=== PATIENT | female | born 1940 | race Caucasian/White ===

== ENCOUNTER 2018-11-19 10:20 | Outpatient (CLI) | payer MEDICARE, SELFPAY ==
[2018-11-19 11:58] LABS: ALT 13 U/L (12-78); AST 10 U/L (15-37); Albumin 3.4 g/dL (3.4-5.0); Alkaline Phosphatase 77 U/L (46-116); Anion Gap 7.1 mmol/L (3-11); BUN 22 mg/dL (7-18); Bilirubin, Total 0.4 mg/dL (0.2-1.0); CO2 28.9 mmol/L (21.0-32.0); CREATININE 1.02 mg/dL (0.55-1.02); Calcium 8.7 mg/dL (8.5-10.1); Chloride 105 mmol/L (98-107); Cholesterol 150 mg/dL (50-200); Estimated GFR 52.28 (mL/min/1.73m2); Glucose 79 mg/dL (70-100); HDL Cholesterol 63 mg/dL (40-60); LDL CHOLESTEROL 74 mg/dL (<100); Potassium 3.9 mmol/L (3.5-5.1); Sodium 141 mmol/L (136-145); Total Protein 6.3 g/dL (6.4-8.2); Triglyceride 50 mg/dL (30-150)
== END 2018-11-19 10:40 ==
PROVIDERS: PCP Nurse Practitioner; Visit Provider Nurse Practitioner
DX: E78.5 Hyperlipidemia, unspecified (principal); I10 Essential (primary) hypertension; I48.0 Paroxysmal atrial fibrillation
CPT/HCPCS: 36415; 80053; 80061; 83721

== ENCOUNTER 2018-12-03 01:50 | Outpatient (RCR) | payer MEDICARE, SELFPAY ==
[2018-12-03] MEDS: Denosumab 60 MG/ML SYR SC (13:22)
== END 2018-12-26 23:59 | disposition home or self-care (01) ==
LOC: INF 01:50
PROVIDERS: PCP Nurse Practitioner; Visit Provider Nurse Practitioner
DX: M81.0 Age-related osteoporosis without current pathological fracture (principal)
CPT/HCPCS: 96372; J0897

== ENCOUNTER 2019-04-29 15:11 | Outpatient (CLI) | payer MEDICARE, SELFPAY ==
--- NOTE | 2019-04-29 09:30 | DI.RAD_ITS ---
SYMPTOM/DIAGNOSIS: COUGH, R05, FATIGUE WHEEZE R06.2 PA AND LATERAL CHEST: Comparison is made with 24 Dec 2017. A large hiatal hernia is again noted. The heart size is within normal limits. The lungs appear clear. There is stable T-12 compression fracture. IMPRESSION: Hiatal hernia. No acute abnormality.
== END 2019-04-29 15:31 ==
PROVIDERS: PCP Nurse Practitioner; Visit Provider Nurse Practitioner
DX: R05 Cough (principal); R06.2 Wheezing; R53.83 Other fatigue; K44.9 Diaphragmatic hernia without obstruction or gangrene
CPT/HCPCS: 71046

== ENCOUNTER 2019-06-04 01:10 | Outpatient (RCR) | payer MEDICARE, SELFPAY ==
[2019-06-04] MEDS: Denosumab 60 MG/ML SYR SC (12:43)
== END 2019-06-28 23:59 | disposition home or self-care (01) ==
LOC: INF 01:10
PROVIDERS: PCP Nurse Practitioner; Visit Provider Nurse Practitioner
DX: M81.0 Age-related osteoporosis without current pathological fracture (principal)
CPT/HCPCS: 96372; J0897

== ENCOUNTER 2019-06-27 09:23 | Outpatient (CLI) | payer MEDICARE, SELFPAY ==
[2019-06-27 10:30] LABS: ALT 17 U/L (14-59); AST 9 U/L (15-37); Albumin 3.6 g/dL (3.4-5.0); Alkaline Phosphatase 69 U/L (46-116); Anion Gap 9.3 mmol/L (3-11); BUN 25 mg/dL (7-18); Bilirubin, Total 0.3 mg/dL (0.2-1.0); CO2 27.7 mmol/L (21.0-32.0); CREATININE 1.08 mg/dL (0.55-1.02); Calcium 8.4 mg/dL (8.5-10.1); Chloride 108 mmol/L (98-107); Estimated GFR 48.81 (mL/min/1.73m2); Glucose 92 mg/dL (70-100); Magnesium 1.7 mg/dL (1.8-2.4); Sodium 145 mmol/L (136-145); Total Protein 6.4 g/dL (6.4-8.2)
== END 2019-06-27 09:43 ==
PROVIDERS: PCP Nurse Practitioner; Visit Provider Nurse Practitioner
DX: E78.5 Hyperlipidemia, unspecified (principal); I10 Essential (primary) hypertension; R25.2 Cramp and spasm
CPT/HCPCS: 36415; 80053; 83735

== ENCOUNTER 2019-12-03 02:32 | Outpatient (RCR) | payer MEDICARE, SELFPAY ==
[2019-12-03] MEDS: Denosumab 60 MG/ML SYR SC (13:02)
== END 2019-12-27 23:59 | disposition home or self-care (01) ==
LOC: INF 02:32
PROVIDERS: PCP Nurse Practitioner; Visit Provider Nurse Practitioner
DX: M81.0 Age-related osteoporosis without current pathological fracture (principal)
CPT/HCPCS: 96372; J0897

== ENCOUNTER 2019-12-19 08:28 | Outpatient (CLI) | payer MEDICARE, SELFPAY ==
[2019-12-19 09:49] LABS: ALT 13 U/L (14-59); AST 10 U/L (15-37); Albumin 3.6 g/dL (3.4-5.0); Alkaline Phosphatase 84 U/L (46-116); Anion Gap 8.3 mmol/L (3-11); BUN 21 mg/dL (7-18); Bilirubin, Total 0.4 mg/dL (0.2-1.0); CO2 30.7 mmol/L (21.0-32.0); CREATININE 0.92 mg/dL (0.55-1.02); Calculated LDL 94 mg/dL (<100); Chloride 105 mmol/L (98-107); Cholesterol 165 mg/dL (<200); Estimated GFR 58.74 (mL/min/1.73m2); Glucose 89 mg/dL (74-106); HDL Cholesterol 62 mg/dL (40-60); Potassium 4.2 mmol/L (3.5-5.1); Sodium 144 mmol/L (136-145); Total Protein 6.4 g/dL (6.4-8.2); Triglyceride 47 mg/dL (<150)
== END 2019-12-19 08:48 ==
PROVIDERS: PCP Nurse Practitioner; Visit Provider Nurse Practitioner
DX: E78.5 Hyperlipidemia, unspecified (principal); I10 Essential (primary) hypertension
CPT/HCPCS: 36415; 80053; 80061

== ENCOUNTER 2020-01-10 04:11 | Emergency (ER) | payer MEDICARE, SELFPAY ==
[2020-01-10 04:13] VITALS: BP 105/85; PULSE 80; RESP 20; TEMP 36.4; O2SAT 95
[2020-01-10] MEDS: Acetaminophen 500 MG TAB 1000 MG PO (04:20)
[2020-01-10] MEDS: Lidocaine 5% Patch 1 PATCH TP (04:20)
--- NOTE | 2020-01-10 04:21 | W.ED.GENAD ---
Discharge Plan Disposition Patient Disposition: HOME Condition: Good Discharge Details Chief Complaint: Nk/Back Pain Clinical Impression: Vertebral compression fracture, Back pain Primary Care Provider: Patricia Garza ED Provider: Niraj Teague Home Meds and New Rx's Prescriptions: New lidocaine [Lidoderm] 1 PATCH patch 1 patch Topical Q24H Qty: 4 RF: 0 No Action albuterol sulfate 90 mcg/actuation aerosol powdr breath activated 2 inh IH Q6H PRN (Reason: shortness of breath or wheezing) Qty: 1 RF: 6 Eliquis 5 mg tablet 5 mg PO BID Qty: 60 RF: 12 Flovent HFA 110 mcg/actuation HFA aerosol inhaler 2 puff IH BID Qty: 12 RF: 6 Robitussin Cough-Chest Conrado DM 5-100 mg/5 mL liquid 10 ml PO Q4H PRN (Reason: cough) Qty: 237 RF: 0 amlodipine 10 mg tablet 10 mg PO DAILY Qty: 90 RF: 3 bupropion HCl 150 mg tablet extended release 24 hr 150 mg PO DAILY Qty: 90 RF: 3 citalopram 20 mg tablet 20 mg PO DAILY Qty: 90 RF: 3 Flovent Diskus 250 mcg/actuation blister with device 1 inh IH BID Qty: 60 RF: 12 Prolia 60 MG/1 ML syringe 60 mg SQ [id number] RF: 0 calcium-vitamin D3-vitamin K 1 EACH tablet,chewable 1 ea PO DAILY RF: 0 Varicella-Zoster [id number] [Shingrix Vial Kit] 50 MCG INJ 50 mcg IM ONCE Qty: 1 RF: 1 metoprolol succinate 50 mg tablet extended release 24 hr 50 mg PO DAILY Qty: 90 RF: 3 acetaminophen 650 mg tablet extended release 650 mg PO Q6H PRN Qty: 60 RF: 0 omeprazole 40 mg capsule,delayed release(DR/EC) 40 mg PO DAILY Qty: 90 RF: 3 fenofibrate nanocrystallized 48 mg tablet 48 mg PO DAILY Qty: 90 RF: 3 Discharge Instructions Instructions: Back Pain (ED) Additional Instructions: At this time I feel that your pain is likely from a vertebral compression fracture as we discussed. Please continue to use Lidoderm patch as directed, you can take 1000 mg of Tylenol every 6 hours. Heating pads can sometimes help as well. If your insurance does not cover the Lidoderm patch, you can get 4% Lidoderm patch [id number]. Please follow-up closely with the social media marketing specialist Dr. Dixon. It is unlikely that we have any significant surgical options that would be available to you at this time, however there may be some chronic pain control methods that are helpful at the spine clinic at [facility]. If you notice any worsening of your symptoms, or any new symptoms such as vomiting, diarrhea, fever, chills, shortness of breath, chest pain, numbness, weakness, or fainting , please return immediately to the emergency department for reevaluation. Please follow up with your primary care provider as soon as possible for reassessment and reevaluation. As always, it was a pleasure participating in your medical care today. Referrals: Alex Dixon MD [ [facility] STAFF PHYSICIAN] - Medical Decision Making This is a pleasant 79-year-old female with a past medical history of severe osteoporosis, atrial fibrillation on Eliquis who presents today for evaluation of back pain. 5 days ago the patient had a mechanical slip fall and hit her back, since then she has had notable pain in her back and not relieved with Tylenol. Exam demonstrates midline tenderness over T8-9 and 10, no bowel or bladder incontinence, no signs of saddle anesthesia or cauda equina syndrome. Because of the patient's history of severe osteoporosis, and blood thinner use I do not feel that simple plain radiographs will be sufficient to evaluate for potential osseous abnormality fracture damage. Will get CT scan of the thoracic and lumbar spine for further assessment and evaluation. We will apply Lidoderm patch and give 1 g of Tylenol. 6:[address] scan results per virtual radiology have returned and demonstrate no evidence of acute fracture but there is evidence of a notable T11 vertebral compression fracture. I suspect that she had a chronic vertebral compression fracture, worsened with a more recent fall. Patient symptoms are improved with the Tylenol and Lidoderm patch. At this time with no signs of cauda equina syndrome, focal neurologic deficit or other abnormality I do feel she can be safely discharged home with close follow-up. Signs symptoms appear clinically consistent with pain secondary to worsening compression fracture. Patient will have referral placed with Dr. Dixon whom she is well acquainted with and requesting to follow-up with. I do not feel that she would be a surgical candidate in the future, however there may be some benefits from chronic management with various pain mediation techniques, or potential referral to the [facility] spine center. Discussed red flags which to return. I have extensively reviewed the treatment plan and discharge instructions with the patient and their family. I have addressed all patient concerns at this time. The patient and family was made aware of what symptoms to monitor for that would warrant a return to the emergency department. Discussed the plan with the patient and family, they demonstrate verbal understanding and agreement with our assessment and plan at this time. FINDINGS: Vertebrae: No acute fracture. Discs/Spinal canal/Neural foramina: No acute findings. Small to moderate osteophytes at multiple levels Soft tissues: Unremarkable. IMPRESSION: No acute findings FINDINGS: Vertebrae: No acute thoracic spine fracture. Large chronic T11 compression deformity again noted Discs/Spinal canal/Neural foramina: No acute abnormality. Small osteophytes at multiple levels Soft tissues: No acute findings. IMPRESSION: 1: No acute thoracic spine fracture. 2: Large chronic T11 compression deformity again noted FINDINGS: Lungs: No consolidation. No masses. Pleural space: Small right pleural effusion Heart: No pericardial effusion. Mediastinum: Large hiatal/paraesophageal hernia. Aorta: No acute findings. Lymph nodes: No enlarged lymph nodes. Bones/joints: No acute fracture. Large T11 compression deformity, likely chronic Soft tissues: No acute findings. IMPRESSION: 1: Small right pleural effusion 2: No acute fracture. Large T11 compression deformity, likely chronic 3: Large hiatal/paraesophageal hernia. FINDINGS: Liver: No acute abnormality. Gallbladder and bile ducts: Surgical clips in the right upper quadrant from cholecystectomy. Pancreas: No ductal dilation. Spleen: No acute abnormality. Adrenals: No mass. Kidneys and ureters: No ureter or obstructing renal stones. No hydronephrosis. Stomach and bowel: No bowel obstruction. Sigmoid diverticulosis without diverticulitis Appendix: No evidence of appendicitis. Intraperitoneal space: No free air. No significant fluid collection. Vasculature: No abdominal aortic aneurysm. Lymph nodes: No enlarged lymph nodes. Bladder: No acute findings. Reproductive: No acute findings. Bones/joints: No acute fracture. Soft tissues: No acute findings. IMPRESSION: No acute findings. Thank you for allowing us to participate in the care of your patient. HPI General Date/Time Provider Initiated Documentation: 01/10/20 04:11. HPI Narrative: 79-year-old female with a past medical history of notable osteoporosis, atrial fibrillation on Eliquis, presents today for evaluation of back and chest pain. Patient states that 4 to 5 days ago she had a mechanical slip fall and fell on her mid back, since then she has had notable pain, pain with breathing, and low back pain. Pain is made worse with movement and palpation, improved by nothing. She has been taking 500 mg of Tylenol throughout the day which is not improved her symptoms. She denies any bowel or bladder incontinence, numbness tingling or weakness. She denies any fever or chills, cough or shortness of breath. She has no other complaints at this time. No other modifying factors. Related Data Home Medications Medication Instructions Recorded Confirmed Prolia 60 mg SQ [id number] 11/16/16 01/10/20 calcium-vitamin D3-vitamin K 1 ea PO DAILY tab.chew 11/16/16 01/10/20 metoprolol succinate 50 mg 50 mg PO DAILY #90 tab 02/26/19 01/10/20 tablet,extended release 24 hr albuterol sulfate 90 mcg/actuation 2 inh IH Q6H PRN #1 each 04/10/19 01/10/20 breath activated powder inhaler apixaban 5 mg tablet 5 mg PO BID #60 tab 04/10/19 01/10/20 fluticasone propionate 110 2 puff IH BID #12 gm 07/09/19 01/10/20 mcg/actuation HFA aerosol inhaler dextromethorphan-guaifenesin 5 10 ml PO Q4H PRN #237 ml 08/13/19 01/10/20 mg-100 mg/5 mL oral liquid amlodipine 10 mg tablet 10 mg PO DAILY #90 tab 08/20/19 01/10/20 bupropion HCl 150 mg 24 hr tablet, 150 mg PO DAILY #90 tab-cap 08/20/19 01/10/20 extended release citalopram 20 mg tablet 20 mg PO DAILY #90 tab-cap 08/20/19 01/10/20 fluticasone propionate 250 1 inh IH BID #60 each 08/20/19 01/10/20 mcg/actuation blister powder for inhalation acetaminophen 650 mg 650 mg PO Q6H PRN #60 tab-cap 10/16/19 01/10/20 tablet,extended release omeprazole 40 mg capsule,delayed 40 mg PO DAILY #90 tab-cap 10/20/19 01/10/20 release fenofibrate nanocrystallized 48 mg 48 mg PO DAILY #90 tab-cap 12/10/19 01/10/20 tablet lidocaine [Lidoderm] 1 patch TOPICAL Q24H #4 patch 01/10/20 Previous Rx's Medication Instructions Recorded metoprolol succinate 50 mg 50 mg PO DAILY #90 tab 02/26/19 tablet,extended release 24 hr albuterol sulfate 90 mcg/actuation 2 inh IH Q6H PRN #1 each 04/10/19 breath activated powder inhaler apixaban 5 mg tablet 5 mg PO BID #60 tab 04/10/19 fluticasone propionate 110 2 puff IH BID #12 gm 07/09/19 mcg/actuation HFA aerosol inhaler dextromethorphan-guaifenesin 5 10 ml PO Q4H PRN #237 ml 08/13/19 mg-100 mg/5 mL oral liquid amlodipine 10 mg tablet 10 mg PO DAILY #90 tab 08/20/19 bupropion HCl 150 mg 24 hr tablet, 150 mg PO DAILY #90 tab-cap 08/20/19 extended release citalopram 20 mg tablet 20 mg PO DAILY #90 tab-cap 08/20/19 fluticasone propionate 250 1 inh IH BID #60 each 08/20/19 mcg/actuation blister powder for inhalation omeprazole 40 mg capsule,delayed 40 mg PO DAILY #90 tab-cap 10/20/19 release fenofibrate nanocrystallized 48 mg 48 mg PO DAILY #90 tab-cap 12/10/19 tablet lidocaine [Lidoderm] 1 patch TOPICAL Q24H #4 patch 01/10/20 Allergies Allergy/AdvReac Type Severity Reaction Status Date / Time Penicillins Allergy Unknown Swelling/Ed Verified 01/10/20 04:18 bobo/Itching Sulfa (Sulfonamide AdvReac Unknown GI symptoms Verified 01/10/20 04:18 Antibiotics) General Stated Complaint: Nk/Back Pain HAILEE: 3 Review of Systems All systems reviewed & are unremarkable except as noted in HPI and below PFSH Medical History (Updated 01/10/20 @ 05:55 by Niraj Teague DO) Closed extra-articular fracture of distal end of right radius (Inactive 01/31/17) Dehydration (Inactive) Episode of recurrent major depressive disorder (Inactive 10/17/16) Gastroenteritis (Inactive) Hiatal hernia (Chronic) Hx of atrial fibrillation, no current medication (Inactive 04/25/16) Pt was seen by a commercial artist and was put on Metoprolol but mdication was stopped due to bradycardia. per Dr. Addison Shore 04/25/2016 Surgical History (Updated 08/14/18 @ 14:33 by [employer] [place]) Cholecystectomy (01/10/18) Extraction of cataract Open Carpal Tunnel release right total knee arthroplkasty (07/11/17) left knee arthroplasty Family History Mother Stroke Father Neoplasm Grandmother , CVA No problems noted. Brother Diabetes Brother Diabetes Brother Diabetes Brother Diabetes Brother Diabetes Brother Diabetes Social History (Updated 11/04/18 @ 13:16 by Lizzette Koch RN) Smoking/Tobacco Use Status: Former Tobacco Use Alcohol Intake: never Drug use: Never Substance use type: does not use Household members: none Number of Children: 4 What type of physical activity do you participate in: none Do you feel safe in your relationship?: Yes Exam Narrative Exam Narrative: 1.Const: Well-nourished, Well-developed, appearing stated age 2.Eyes: PERRL, no conjunctival injection, and symmetrical lids. 3.ENT: Atraumatic external nose and ears. Moist MM. Neck: Symmetric, trachea midline, No thyromegaly. 4.CVS: +S1/S2, No murmurs or gallops. Peripheral pulses 2+ and equal in all extremities. Brisk capillary refill in all extremities. 5.RESP: Unlabored respiratory effort. Clear to auscultation bilaterally. No wheezes rales or rhonchi 6.GI: Soft, Nontender/Nondistended, No hepatosplenomegaly. No guarding or rebound. 7.MSK: Normocephalic/Atraumatic, Extremities w/o deformity or ttp No cyanosis or clubbing, Normal movement of all extremities. No midline tenderness to palpation over the cervical and sacral spine. Mild midline tenderness over T9 and 10 no bruises or deformity. No significant tenderness over the ribs. Normal ROM in flexion, extension, side bend, and rotation. Patient has +5 out of 5 strength in the lower extremities in dorsiflexion and plantarflexion, knee flexion and extension, hip flexion and extension. Normal strength for dorsiflexion and plantar flexion of the great toe bilaterally. There is +2 over 2 dorsalis pedis pulses bilaterally. There is normal sensation to the skin with light touch at the foot, knee, and hip. Normal saddle sensation. Good sensation over the deep sural nerve area bilaterally. Rectal exam deferred. Reflexes are +2 over 4 in the patellar reflex bilaterally. +5 out of 5 strength in the medial, ulnar, radial nerve distribution bilaterally in the hands as well as intact light touch sensation to these dermatomes on the hands 8.Skin: Warm, Dry. No rashes or lesions. 9.Neuro: shield runner II-XII grossly intact. Sensation grossly intact, no focal neurologic deficits. 10.Psych: (AAO) x3. Appropriate mood and affect Course Vital Signs Vital signs: Vital Signs Temperature 36.4 C L 01/10/20 04:13 Pulse 80 01/10/20 04:13 Respiratory Rate 20 01/10/20 04:13 Blood Pressure 105/85 01/10/20 04:13 Pulse Oximetry 95 01/10/20 04:13 Temperature 36.4 C L 01/10/20 04:13 Temperature Source Temporal Artery Scan 01/10/20 04:13 Pulse 80 01/10/20 04:13 Respiratory Rate 20 01/10/20 04:13 Respiratory Effort Non-Labored 01/10/20 04:19 Blood Pressure 105/85 01/10/20 04:13 Blood Pressure Position Sitting 01/10/20 04:13 Pulse Oximetry 95 01/10/20 04:13 Oxygen Delivery Method Room Air 01/10/20 04:13 Oxygen Flow Rate 0 01/10/20 04:13 Pain Level 8 01/10/20 04:19
--- NOTE | 2020-01-10 04:42 | DI.CT_ITS ---
CT CHEST/ABD/PEL WO and CT reconstructions of the thoracic and lumbar spine CLINICAL HISTORY: fall, osteoporosis, anticoag, mid back and chest pain. TECHNIQUE: Imaging Protocol: Axial computed tomography images with coronal and sagittal reformatted images were created and reviewed CONTRAST MATERIAL: Intravenous: Omnipaque 350 Contrast volume:0 mL Oral: No COMPARISON: XR CHEST 2V PA LATERAL from 04/29/2019 CT THORACIC LUMBAR SPINE REC from 01/10/2020 CT THORACIC LUMBAR SPINE REC from 01/10/2020 FINDINGS: Limitations: Lack of IV contrast does limit evaluation of the thoracic, abdominal or pelvic organs. CHEST: Thyroid: Bilateral thyroid nodules. The largest is a 2 cm nodule on the right. Nonemergent thyroid ul trasound may be obtained. Tracheobronchial tree: Patent where visualized. Mediastinum and Rosalba: No dominant adenopathy or fluid collection. There is a large hiatal hernia. Pulmonary parenchyma: No consolidation or dominant measurable mass. No architectural distortion. Pleura: Small right pleural effusion. No pneumothorax. Lymph nodes: Within normal limits. Aorta: Thoracic portion non-dilated. Atherosclerosis. Heart: Nondilated. No pericardial effusion. No coronary artery calcifications. Bones: Degenerative changes in the spine. No acute fracture or subluxation in the thoracic spine. The re is an old T11 compression fracture. ABDOMEN: Liver: Normal density. No measurable mass. Gallbladder and biliary tract: Status post cholecystectomy. No biliary ductal dilatation. Pancreas: Normal density, no abnormal calcifications or inflammatory process. Spleen: Normal. Kidneys: Normal size, contour and axis. No radiodense stones or obstructive uropathy. Stable right re nal cyst. Adrenal glands: No masses seen. Aorta: Abdominal portion non-dilated. Atherosclerosis. Lymph nodes: Within normal limits. PELVIS: Bladder: Symmetric distention, no gross wall thickening. Bowel: No obstruction or bowel wall thickening. Colonic diverticulosis but no evidence of acute diver ticulitis. No evidence of an acute appendicitis. Peritoneal cavity: No ascites, collection or mesenteric inflammatory response. Bones: Degenerative changes are seen in the lumbar spine. No acute fractures or subluxations in the l umbar spine are present. Reproductive organs: Within normal limits. IMPRESSION: 1. No acute abdominal or pelvic process. 2. No acute thoracic or lumbar spine fracture. 3. Small right pleural effusion. 4. Old T11 compression fracture. DATA REPOSITORY: All CT scans at this facility are submitted to the National Radiology Data Registry (NRDR) Dose Index Registry (DIR) with the [employer] ([employer]). RADIATION OPTIMIZATION: All CT scans at this facility use at least one of these dose optimization te chniques: automated exposure control; mA and/or kV adjustment per patient size (includes targeted exa ms where dose is matched to clinical indication); or iterative reconstruction.
--- NOTE | 2020-01-10 04:42 | DI.CT_ITS ---
EXAM: CT CHEST/ABD/PEL WO and CT reconstructions of the thoracic and lumbar spine CLINICAL HISTORY: fall, osteoporosis, anticoag, mid back and chest pain. TECHNIQUE: Imaging Protocol: Axial computed tomography images with coronal and sagittal reformatted images were created and reviewed CONTRAST MATERIAL: Intravenous: Omnipaque 350 Contrast volume:0 mL Oral: No COMPARISON: XR CHEST 2V PA LATERAL from 04/29/2019 CT THORACIC LUMBAR SPINE REC from 01/10/2020 CT THORACIC LUMBAR SPINE REC from 01/10/2020 FINDINGS: Limitations: Lack of IV contrast does limit evaluation of the thoracic, abdominal or pelvic organs. CHEST: Thyroid: Bilateral thyroid nodules. The largest is a 2 cm nodule on the right. Nonemergent thyroid ultrasound may be obtained. Tracheobronchial tree: Patent where visualized. Mediastinum and Rosalba: No dominant adenopathy or fluid collection. There is a large hiatal hernia. Pulmonary parenchyma: No consolidation or dominant measurable mass. No architectural distortion. Pleura: Small right pleural effusion. No pneumothorax. Lymph nodes: Within normal limits. Aorta: Thoracic portion non-dilated. Atherosclerosis. Heart: Nondilated. No pericardial effusion. No coronary artery calcifications. Bones: Degenerative changes in the spine. No acute fracture or subluxation in the thoracic spine. T here is an old T11 compression fracture. ABDOMEN: Liver: Normal density. No measurable mass. Gallbladder and biliary tract: Status post cholecystectomy. No biliary ductal dilatation. Pancreas: Normal density, no abnormal calcifications or inflammatory process. Spleen: Normal. Kidneys: Normal size, contour and axis. No radiodense stones or obstructive uropathy. Stable right re nal cyst. Adrenal glands: No masses seen. Aorta: Abdominal portion non-dilated. Atherosclerosis. Lymph nodes: Within normal limits. PELVIS: Bladder: Symmetric distention, no gross wall thickening. Bowel: No obstruction or bowel wall thickening. Colonic diverticulosis but no evidence of acute diver ticulitis. No evidence of an acute appendicitis. Peritoneal cavity: No ascites, collection or mesenteric inflammatory response. Bones: Degenerative changes are seen in the lumbar spine. No acute fractures or subluxations in the lumbar spine are present. Reproductive organs: Within normal limits. IMPRESSION: 1. No acute abdominal or pelvic process. 2. No acute thoracic or lumbar spine fracture. 3. Small right pleural effusion. 4. Old T11 compression fracture. DATA REPOSITORY: All CT scans at this facility are submitted to the National Radiology Data Registry (NRDR) Dose Index Registry (DIR) with the [employer] (ACR). RADIATION OPTIMIZATION: All CT scans at this facility use at least one of these dose optimization te chniques: automated exposure control; mA and/or kV adjustment per patient size (includes targeted exa ms where dose is matched to clinical indication); or iterative reconstruction.
--- NOTE | 2020-01-10 06:00 | DI.VRAD_ITS ---
PROCEDURE INFORMATION: Exam: CT Chest Without Contrast Exam date and time: 01/10/2020 4:42 AM Age: 79 years old Clinical indication: Injury or trauma; Fall; Initial encounter; Generalized; Blunt trauma (contusions or hematomas); Injury date: 01/10/20; Injury details: Fell from bed, osteoporosis, anticoag, mid back and chest pain TECHNIQUE: Imaging protocol: Computed tomography of the chest without contrast. Reformatted images were created and reviewed. Radiation optimization: All CT scans at this facility use at least one of these dose optimization techniques: automated exposure control; mA and/or kV adjustment per patient size (includes targeted exams where dose is matched to clinical indication); or iterative reconstruction. COMPARISON: CR XR CHEST 2V PA LATERAL 04/29/2019 9:36 AM FINDINGS: Lungs: No consolidation. No masses. Pleural space: Small right pleural effusion Heart: No pericardial effusion. Mediastinum: Large hiatal/paraesophageal hernia. Aorta: No acute findings. Lymph nodes: No enlarged lymph nodes. Bones/joints: No acute fracture. Large T11 compression deformity, likely chronic Soft tissues: No acute findings. IMPRESSION: 1: Small right pleural effusion 2: No acute fracture. Large T11 compression deformity, likely chronic 3: Large hiatal/paraesophageal hernia. PROCEDURE INFORMATION: Exam: CT Abdomen And Pelvis Without Contrast Exam date and time: 01/10/2020 4:42 AM Age: 79 years old Clinical indication: Injury or trauma; Fall; Initial encounter; Generalized; Blunt trauma (contusions or hematomas); Injury date: 01/10/20; Injury details: Fell from bed, osteoporosis, anticoag, mid back and chest pain TECHNIQUE: Imaging protocol: Computed tomography of the abdomen and pelvis without contrast. Reformatted images were created and reviewed. Radiation optimization: All CT scans at this facility use at least one of these dose optimization techniques: automated exposure control; mA and/or kV adjustment per patient size (includes targeted exams where dose is matched to clinical indication); or iterative reconstruction. COMPARISON: CR XR CHEST 2V PA LATERAL 04/29/2019 9:36 AM FINDINGS: Liver: No acute abnormality. Gallbladder and bile ducts: Surgical clips in the right upper quadrant from cholecystectomy. Pancreas: No ductal dilation. Spleen: No acute abnormality. Adrenals: No mass. Kidneys and ureters: No ureter or obstructing renal stones. No hydronephrosis. Stomach and bowel: No bowel obstruction. Sigmoid diverticulosis without diverticulitis Appendix: No evidence of appendicitis. Intraperitoneal space: No free air. No significant fluid collection. Vasculature: No abdominal aortic aneurysm. Lymph nodes: No enlarged lymph nodes. Bladder: No acute findings. Reproductive: No acute findings. Bones/joints: No acute fracture. Soft tissues: No acute findings. IMPRESSION: No acute findings. Dictated and Authenticated by: Noel Mensah MD. Ordering:RACHAEL Healy MD
--- NOTE | 2020-01-10 06:05 | DI.VRAD_ITS ---
PROCEDURE INFORMATION: Exam: CT Thoracic Spine Without Contrast Exam date and time: 01/10/2020 4:42 AM Age: 79 years old Clinical indication: Injury or trauma; Initial encounter; Blunt trauma (contusions or hematomas); Injury date: 01/10/20; Injury details: Fall from bed, mid back and chest pain, osteoporosis, anticoag TECHNIQUE: Imaging protocol: Computed tomography images of the thoracic spine without contrast. Reformatted images were created and reviewed. Radiation optimization: All CT scans at this facility use at least one of these dose optimization techniques: automated exposure control; mA and/or kV adjustment per patient size (includes targeted exams where dose is matched to clinical indication); or iterative reconstruction. COMPARISON: CR THORACIC SPINE 03/16/2017 1:19 PM FINDINGS: Vertebrae: No acute thoracic spine fracture. Large chronic T11 compression deformity again noted Discs/Spinal canal/Neural foramina: No acute abnormality. Small osteophytes at multiple levels Soft tissues: No acute findings. IMPRESSION: 1: No acute thoracic spine fracture. 2: Large chronic T11 compression deformity again noted PROCEDURE INFORMATION: Exam: CT Lumbar Spine Without Contrast Exam date and time: 01/10/2020 4:42 AM Age: 79 years old Clinical indication: Injury or trauma; Initial encounter; Blunt trauma (contusions or hematomas); Injury date: 01/10/20; Injury details: Fall from bed, mid back and chest pain, osteoporosis, anticoag TECHNIQUE: Imaging protocol: Computed tomography images of the lumbar spine without contrast. Reformatted images were created and reviewed. Radiation optimization: All CT scans at this facility use at least one of these dose optimization techniques: automated exposure control; mA and/or kV adjustment per patient size (includes targeted exams where dose is matched to clinical indication); or iterative reconstruction. COMPARISON: CR THORACIC SPINE 03/16/2017 1:19 PM FINDINGS: Vertebrae: No acute fracture. Discs/Spinal canal/Neural foramina: No acute findings. Small to moderate osteophytes at multiple levels Soft tissues: Unremarkable. IMPRESSION: No acute findings. Dictated and Authenticated by: Noel Mensah MD. Ordering:RACHAEL Healy MD
== END 2020-01-10 06:06 | disposition home or self-care (01) ==
PROVIDERS: Emergency Provider Student in an Organized Health Care Education/Training Program; PCP Nurse Practitioner
DX: M48.54XA Collapsed vertebra, not elsewhere classified, thoracic region, initial encounter for fracture (principal); W06.XXXA Fall from bed, initial encounter; Z79.01 Long term (current) use of anticoagulants; I10 Essential (primary) hypertension
CPT/HCPCS: 71250; 99284; 74176

== ENCOUNTER 2020-04-07 01:18 | Outpatient (CLI) | payer MEDICARE, SELFPAY ==
[2020-04-07 09:05] LABS: HCT 41.2 % (36.0-46.0); HGB 13.4 g/dL (12.0-15.5); Mean Corp. HGB Concentration 32.5 g/dL (32.0-36.0); Mean Corpuscular Hemoglobin 29.5 pg (27.0-33.0); Mean Corpuscular Volume 90.5 fL (80-95); Mean Platelet Volume 9.3 fL (8.0-11.0); Platelet Count 391 x1000/uL (130-400); RBC 4.55 m/cumm (4.00-5.20); White Blood Cell Count 7.49 k/cumm (4.4-10.8)
[2020-04-07 09:16] LABS: INR 1.2 (0.9-1.1); PTT Activated 26.5 sec (21.0-31.4); Prothrombin Time 11.7 sec (9.3-11.0)
== END 2020-04-07 01:38 ==
PROVIDERS: PCP Nurse Practitioner; Visit Provider Nurse Practitioner
DX: Z79.01 Long term (current) use of anticoagulants (principal); Z86.73 Personal history of transient ischemic attack (TIA), and cerebral infarction without residual deficits; I48.91 Unspecified atrial fibrillation
CPT/HCPCS: 36415; 85027; 85610; 85730

== ENCOUNTER 2020-05-12 10:12 | Outpatient (CLI) | payer MEDICARE, SELFPAY ==
--- NOTE | 2020-05-12 10:00 | DI.RAD_ITS ---
EXAM: XR KNEE RT 2V AP,LAT CLINICAL HISTORY: right knee pain after exercises TECHNIQUE: COMPARISON: CR LE-KNEE 3V from 04/25/2016 FINDINGS: Two views were obtained and show knee joint replacement in position. The components appear well seat ed. I am uncertain whether there is a patellar arthroplasty component. No other significant bony ab normality seen. IMPRESSION:
== END 2020-05-12 10:32 ==
PROVIDERS: PCP Nurse Practitioner; Referring Provider Nurse Practitioner; Visit Provider Orthopaedic Surgery
DX: M25.561 Pain in right knee (principal); Z47.1 Aftercare following joint replacement surgery; M76.31 Iliotibial band syndrome, right leg; Z96.651 Presence of right artificial knee joint
CPT/HCPCS: 99213; 73560

== ENCOUNTER 2020-05-24 09:36 | Outpatient (CLI) | payer MEDICARE, SELFPAY ==
--- NOTE | 2020-05-24 15:30 | DI.RAD_ITS ---
EXAM: XR RIBS LT W PA LAT CHEST CLINICAL HISTORY: pain s/p fall, pleurodynia, R07.81, W19.XXXA TECHNIQUE: 2D digital imaging was performed. COMPARISON: CR XR CHEST 2V PA LATERAL from 04/29/2019 FINDINGS: A large hiatal hernia is again noted. Lungs show mild fibrotic changes. Is no pneumothorax, infiltr ate or effusion. Marker was placed over the lower left ribs in the area of the patient's pain. Ther e is a stable T12 compression fracture. Degenerative changes are noted in the thoracic spine. There are right upper quadrant surgical clips. No rib fractures are seen. IMPRESSION: Large hiatal hernia. No evidence of rib fracture or pneumothorax.
--- NOTE | 2020-05-24 15:30 | DI.RAD_ITS ---
EXAM: XR SHOULDER LT COMPLETE 2+V CLINICAL HISTORY: pain s/p fall, lt shoulder pain, M25.512, W19.XXXA TECHNIQUE: 2D digital imaging was performed. COMPARISON: No exams were available for comparison FINDINGS: There is severe narrowing of the glenohumeral joint space. There is mild spurring of the glenoid. T here is spurring of the inferior medial humerus and mild spurring at the greater and lesser tuberosit ies. The AC joint is unremarkable. IMPRESSION: Severe degenerative changes of the glenohumeral joint.
== END 2020-05-24 09:56 ==
PROVIDERS: PCP Nurse Practitioner; Visit Provider Nurse Practitioner
DX: M25.512 Pain in left shoulder (principal); M19.012 Primary osteoarthritis, left shoulder; W19.XXXA Unspecified fall, initial encounter
CPT/HCPCS: 71046; 71100; 73030

== ENCOUNTER 2020-05-31 01:37 | Outpatient (RCR) | payer MEDICARE, SELFPAY ==
[2020-05-31] MEDS: Denosumab 60 MG/ML SYR SC (12:42)
== END 2020-06-28 23:59 | disposition home or self-care (01) ==
LOC: INF 01:37
PROVIDERS: PCP Nurse Practitioner; Visit Provider Nurse Practitioner
DX: M81.0 Age-related osteoporosis without current pathological fracture (principal)
CPT/HCPCS: 96372; J0897

== ENCOUNTER → 2020-06-23 09:50 | Outpatient (BNVA) | payer MEDICARE, SELFPAY | PROVIDERS: PCP Nurse Practitioner; Referring Provider Nurse Practitioner; Visit Provider Orthopaedic Surgery | DX: M25.561 Pain in right knee (principal); M76.31 Iliotibial band syndrome, right leg | CPT/HCPCS: 99213 ==

== ENCOUNTER 2020-09-04 05:24 | Observation (INO) | payer MEDICARE, SELFPAY ==
--- NOTE | 2020-09-04 | DI.CT_ITS ---
EXAM: CT CHEST W CLINICAL HISTORY: hiatal hernia; r/o torsion TECHNIQUE: COMPARISON: No exams were available for comparison FINDINGS: CT examination of the chest was performed with bolus infusion of 70 cc of Omnipaque 350. Lungs are g enerally clear. Hiatal hernia is noted as seen on abdominal CT, this contains stomach and portions o f transverse colon. There is no evidence of a gastric volvulus. There is no evidence of obstruction . No mediastinal or hilar adenopathy. There is no evidence of pulmonary embolic disease. No thoracic aortic abnormality. No pleural effus ion. IMPRESSION: Large hiatal hernia containing portions of stomach and transverse colon, no evidence of volvulus. RADIATION DOSE DELIVERED: 358.39mGy.cm Total DLP
[2020-09-04 05:29] VITALS: BP 169/92; PULSE 84; RESP 24; TEMP 36.2; O2SAT 95
--- NOTE | 2020-09-04 05:37 | ED.GENADUL_ITS ---
Discharge Plan Disposition Patient Disposition: [facility] IN[facility]IENT Condition: Stable Discharge Details Chief Complaint: Abd Prob Clinical Impression: Vomiting, Coffee ground emesis Primary Care Provider: Patricia Garza ED Provider: Niraj Tegaue Home Meds and New Rx's Prescriptions: No Action Eliquis 5 mg tablet 5 mg PO BID Qty: 60 RF: 12 albuterol sulfate 90 mcg/actuation aerosol powdr breath activated 2 inh IH Q6H PRN (Reason: shortness of breath or wheezing) Qty: 1 RF: 6 amlodipine 10 mg tablet 10 mg PO DAILY Qty: 90 RF: 3 Flovent Diskus 250 mcg/actuation blister with device 1 inh IH BID Qty: 60 RF: 12 hydrocodone-acetaminophen 5-325 mg tablet 1 tab PO BID MDD 2 tabs PRN (Reason: pain) Qty: 6 RF: 0 levofloxacin 750 mg tablet 750 mg PO DAILY Qty: 7 RF: 0 metronidazole 500 mg tablet 500 mg PO Q8H Qty: 21 RF: 0 Prolia 60 MG/1 ML syringe 60 mg SQ [id number] RF: 0 calcium-vitamin D3-vitamin K 1 EACH tablet,chewable 1 ea PO DAILY RF: 0 Varicella-Zoster Ge/As01b/Pf [Shingrix Vial Kit] 50 MCG INJ 50 mcg IM ONCE Qty: 1 RF: 1 acetaminophen 650 mg tablet extended release 650 mg PO Q6H PRN Qty: 60 RF: 0 omeprazole 40 mg capsule,delayed release(DR/EC) 40 mg PO DAILY Qty: 90 RF: 3 fenofibrate nanocrystallized 48 mg tablet 48 mg PO DAILY Qty: 90 RF: 3 metoprolol succinate 50 mg tablet extended release 24 hr 50 mg PO DAILY Qty: 90 RF: 3 Trelegy Ellipta 100-62.5-25 mcg blister with device 1 inh IH DAILY RF: 0 Breo Ellipta 200-25 mcg/dose blister with device 1 inh IH DAILY RF: 0 Medical Decision Making This is a pleasant 80-year-old female with a past medical history of atrial fibrillation on Eliquis, and diverticulitis who presents today for evaluation of left-sided abdominal pain vomiting and diarrhea. Patient states about 4 to 5 days ago she had 2 days of diarrhea, it was nonbloody, nonmelanotic. She then developed a mild left lower quadrant abdominal pain. She saw her primary care provider who suspected diverticulitis and she was started on levofloxacin and Flagyl. She has been taking this for 2 days now and today has developed vomiting. She has been vomiting multiple times throughout the day, the last few episodes have had coffee-ground chunks and he started her component. She has not been able to keep anything down. She denies any other complaints at this time. No other modifying factors. Physical exam demonstrates mild left lower quadrant abdominal tenderness, notably dry mucous membranes, vital signs demonstrate no evidence of hypotension or significant tachycardia. We will gently rehydrate, get a CT scan first to evaluate for worsening diverticular disease, check hemoglobin levels, give Protonix and famotidine for suspected upper mild GI ulcer versus mild bleed. Of note she has not had a bowel movement in the last 2 days. 7:[address] scan has returned, no significant abnormalities in regards to acute abdominal surgical pathologies, no evidence of diverticulitis. Laboratory work-up has returned and is reassuring. Hemoglobin stable. BUN is 19, creatinine 1.22, on reassessment the patient's nausea is slightly improved but notably still present. Patient does live alone at home. With the patient's upper GI bleed that she had which does seem to be improving, however taking into consideration her age, her living scenario with her being alone, I do feel that 24-hour observation may be reasonable. We will reach out to the hospitalist. admitting to hospitalist. discussed with addy. FINDINGS: Liver: Normal. No mass. Gallbladder and bile ducts: Cholecystectomy. Normal bile ducts. Pancreas: Normal. No ductal dilation. Spleen: Normal. No splenomegaly. Adrenal glands: Normal. No mass. Kidneys and ureters: There are at least 2 fairly well-defined hyperdense nodules on the superior pole of left kidney that measure under 5 mm in diameter. There consistent with tiny benign proteinaceous cysts. There is no hydronephrosis. A stable benign right peripelvic cyst is present. No renal stones are seen. Stomach and bowel: There is a very large hiatal hernia containing the stomach and multiple loops of bowel. This is not significantly changed. There is prominent sigmoid diverticulosis. There is no evidence of acute diverticulitis. There is no bowel obstruction or dilatation. There is a small right inguinal hernia containing a short loop of nondilated bowel. Appendix: No evidence of appendicitis. Intraperitoneal space: Unremarkable. No free air. No significant fluid collection. Vasculature: Unremarkable. No abdominal aortic aneurysm. Lymph nodes: Unremarkable. No enlarged lymph nodes. Urinary bladder: Unremarkable as visualized. Reproductive: Unremarkable as visualized. Bones/joints: Prominent degenerative disease in the spine with sclerosis osteophyte formation. There is old compression fracture of T11. Soft tissues: Unremarkable. IMPRESSION: 1. Stable large prominent hiatal hernia. 2. Small right inguinal hernia. 3. Prominent sigmoid diverticulosis. 4. Prominent degenerative disease in the spine. 5. No acute abnormalities are seen in the abdomen and pelvis. Thank you for allowing us to participate in the care of your patient. Dictated and Authenticated by: Richi Membreno MD 09/04/2020 7:31 AM Eastern Time ([place] & [place]) HPI General Date/Time Provider Initiated Documentation: 09/04/20 05:26 . HPI Narrative: This is a pleasant 80-year-old female with a past medical history of atrial fibrillation on Eliquis, and diverticulitis who presents today for evaluation of left-sided abdominal pain vomiting and diarrhea. Patient states about 4 to 5 days ago she had 2 days of diarrhea, it was nonbloody, nonmelanotic. She then developed a mild left lower quadrant abdominal pain. She saw her primary care provider who suspected diverticulitis and she was started on levofloxacin and Flagyl. She has been taking this for 2 days now and today has developed vomiting. She has been vomiting multiple times throughout the day, the last few episodes have had coffee-ground chunks and he started her component. She has not been able to keep anything down. She denies any other complaints at this time. No other modifying factors. Related Data Home Medications Medication Instructions Recorded Confirmed Prolia 60 mg SQ [id number] 11/16/16 09/04/20 calcium-vitamin D3-vitamin K 1 ea PO DAILY tab.chew 11/16/16 09/04/20 albuterol sulfate 90 mcg/actuation 2 inh IH Q6H PRN #1 each 04/10/19 09/04/20 breath activated powder inhaler amlodipine 10 mg tablet 10 mg PO DAILY #90 tab 08/20/19 09/04/20 fluticasone propionate 250 1 inh IH BID #60 each 08/20/19 09/04/20 mcg/actuation blister powder for inhalation acetaminophen 650 mg 650 mg PO Q6H PRN #60 tab-cap 10/16/19 09/04/20 tablet,extended release omeprazole 40 mg capsule,delayed 40 mg PO DAILY #90 tab-cap 10/20/19 09/04/20 release fenofibrate nanocrystallized 48 mg 48 mg PO DAILY #90 tab-cap 12/10/19 09/02/20 tablet metoprolol succinate 50 mg 50 mg PO DAILY #90 tab 03/03/20 09/04/20 tablet,extended release 24 hr fluticasone fur. 100 mcg-umeclid 1 inh IH DAILY 03/26/20 09/04/20 62.5 mcg-vilant 25 mcg inhalat.powder apixaban 5 mg tablet 5 mg PO BID #60 tab 03/29/20 09/04/20 fluticasone furoate 200 1 inh IH DAILY 04/29/20 09/04/20 mcg-vilanterol 25 mcg/dose inhalation powder hydrocodone 5 mg-acetaminophen 325 1 tab PO BID PRN #6 tab MDD 2 tabs 05/24/20 09/04/20 mg tablet levofloxacin 750 mg tablet 750 mg PO DAILY #7 tab 09/02/20 09/04/20 metronidazole 500 mg tablet 500 mg PO Q8H #21 tab 09/02/20 09/04/20 Previous Rx's Medication Instructions Recorded albuterol sulfate 90 mcg/actuation 2 inh IH Q6H PRN #1 each 04/10/19 breath activated powder inhaler amlodipine 10 mg tablet 10 mg PO DAILY #90 tab 08/20/19 fluticasone propionate 250 1 inh IH BID #60 each 08/20/19 mcg/actuation blister powder for inhalation omeprazole 40 mg capsule,delayed 40 mg PO DAILY #90 tab-cap 10/20/19 release fenofibrate nanocrystallized 48 mg 48 mg PO DAILY #90 tab-cap 12/10/19 tablet metoprolol succinate 50 mg 50 mg PO DAILY #90 tab 03/03/20 tablet,extended release 24 hr apixaban 5 mg tablet 5 mg PO BID #60 tab 03/29/20 hydrocodone 5 mg-acetaminophen 325 1 tab PO BID PRN #6 tab MDD 2 tabs 05/24/20 mg tablet levofloxacin 750 mg tablet 750 mg PO DAILY #7 tab 09/02/20 metronidazole 500 mg tablet 500 mg PO Q8H #21 tab 09/02/20 Allergies Allergy/AdvReac Type Severity Reaction Status Date / Time Penicillins Allergy Unknown Swelling/Ed Verified 09/04/20 05:34 bobo/Itching Sulfa (Sulfonamide AdvReac Unknown GI symptoms Verified 09/04/20 05:34 Antibiotics) General Stated Complaint: Abd Prob HAILEE: 3 Review of Systems All systems reviewed & are unremarkable except as noted in HPI and below PFSH Medical History Anticoagulant long-term use Anxiety and depression (09/05/17) Closed extra-articular fracture of distal end of right radius (01/31/17) Dehydration 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 per Dr. 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 Brother Diabetes Brother Diabetes Brother Diabetes Brother Diabetes Brother Diabetes Brother Diabetes Social History Smoking/Tobacco Use Status: Former Tobacco Use Smoking risk assessment performed?: Yes Alcohol Intake: never Drug use: Never Substance use type: does not use Household members: none Number of Children: 4 Current gender identity: female What type of physical activity do you participate in: none Do you feel safe at home: Yes Do you feel safe in your relationship?: Yes Exam Narrative Exam Narrative: 1.Const: Well-nourished, Well-developed, appearing stated age 2.Eyes: PERRL, no conjunctival injection, and symmetrical lids. 3.ENT: Atraumatic external nose and ears. Notably dry MM. Neck: Symmetric, trachea midline, No thyromegaly. 4.CVS: +S1/S2, No murmurs or gallops. Peripheral pulses 2+ and equal in all extremities. Brisk capillary refill in all extremities. 5.RESP: Unlabored respiratory effort. Clear to auscultation bilaterally. No wheezes rales or rhonchi 6.GI: Soft, nondistended, bowel sounds slightly reduced. Mild to moderate pain on palpation of left lower quadrant of the abdomen. Mild epigastric tenderness. 7.MSK: Normocephalic/Atraumatic, Extremities w/o deformity or ttp No cyanosis or clubbing, Normal movement of all extremities 8.Skin: Warm, Dry. No rashes or lesions. 9.Neuro: reporting developer II-XII grossly intact. Sensation grossly intact, no focal neurologic deficits. 10.Psych: (AAO) x3. Appropriate mood and affect Course Vital Signs Vital signs: Vital Signs Temperature 36.2 C L 09/04/20 05:29 Pulse 84 09/04/20 05:29 Respiratory Rate 24 09/04/20 05:29 Blood Pressure 169/92 H 09/04/20 05:29 Pulse Oximetry 95 09/04/20 05:29 Temperature 36.2 C L 09/04/20 05:29 Temperature Source Skin 09/04/20 05:29 Pulse 84 09/04/20 05:29 Respiratory Rate 24 09/04/20 05:29 Blood Pressure 169/92 H 09/04/20 05:29 Blood Pressure Position Sitting 09/04/20 05:29 Pulse Oximetry 95 09/04/20 05:29 Oxygen Delivery Method Room Air 09/04/20 05:29 Oxygen Flow Rate 0 09/04/20 05:29 Pain Level 6 09/04/20 05:29
[2020-09-04] MEDS: Normal Saline 1,000 ML 1000 ML IV (05:50)
[2020-09-04] MEDS: Pantoprazole 40 MG VIAL IVP ×2 (05:52→18:54)
[2020-09-04] MEDS: Ondansetron 4 MG/2 ML VIAL IVP (05:57)
[2020-09-04] MEDS: FAMOTIDINE 20 MG/50 ML BAG 200 MG IVPB (05:57)
[2020-09-04 06:14] LABS: Abs Immature Grans 0.16 10^3/uL (0.0-0.06); Absolute Basophil Count 0.03 10^3/uL (0.0-0.2); Absolute Eosinophil Count 0.01 10^3/uL (0.0-0.7); Absolute Lymphocyte Count 0.84 10^3/uL (1.2-3.4); Absolute Monocyte Count 0.83 10^3/uL (0.1-0.8); Absolute Neutrophil Count 8.28 10^3/uL (1.2-6.7); Basophils % 0.3; Eosinophils % 0.1; HCT 44.3 % (36.0-46.0); HGB 14.8 g/dL (11.2-15.7); INR 1.4 (0.9-1.1); Immature Grans % 1.6; Lymphocytes % 8.3; MCH 30.5 pg (27.0-33.0); MCHC 33.4 % (32.0-36.0); MCV 91.3 fL (80-95); MPV 9.7 fL (8.0-11.0); Monocytes % 8.2; Neutrophils % 81.5; Nucleated RBC 0 %; PTT Activated 25.9 sec (21.0-27.5); Platelet Count 350 10^3/uL (130-400); Prothrombin Time 13.8 sec (9.3-11.0); RBC 4.85 10^6/uL (3.93-5.22); RDW 12.7 % (11.7-14.6); RDW-SD 42.1 fL; WBC 10.15 10^3/uL (4.4-10.8)
[2020-09-04 06:15] LABS: ALT 11 U/L (14-59); AST 13 U/L (15-37); Albumin 3.7 g/dL (3.4-5.0); Alkaline Phosphatase 69 U/L (46-116); Anion Gap 14.6 mmol/L (3-11); BUN 19 mg/dL (7-18); Bilirubin, Total 0.5 mg/dL (0.2-1.0); CO2 23.4 mmol/L (21.0-32.0); CREATININE 1.22 mg/dL (0.55-1.02); Calcium 8.7 mg/dL (8.5-10.1); Chloride 103 mmol/L (98-107); Glucose 128 mg/dL (74-106); Lipase 33 U/L (73-393); Potassium 3.4 mmol/L (3.5-5.1); Sodium 141 mmol/L (136-145)
[2020-09-04 06:27] VITALS: BP 191/80; PULSE 77; RESP 18; O2SAT 95
--- NOTE | 2020-09-04 06:52 | DI.CT_ITS ---
EXAM: CT ABDOMEN PELVIS WO INDICATION: left sided abdominal pain, hx of divertic. COMPARISON: CT CT THORACIC LUMBAR SPINE REC from 01/10/2020 TECHNIQUE: FINDINGS: CT examination of the abdomen and pelvis was performed without contrast administration. There is a large hiatal hernia which contains the stomach. There is a T11 compression fracture which is old.. The liver is unremarkable in appearance. Note is made of a prior cholecystectomy, the bile ducts are CT normal. Pancreas appears normal. Spleen is unremarkable in appearance. Adrenals appear normal. There is a tiny hyperdense left renal cortical lesion measuring about 5 millimeters in diameter consi stent with a proteinaceous cyst. There is a probable parapelvic right renal cyst. No evidence of hy dronephrosis or nephrolithiasis. No ureteral calcification. Urinary bladder unremarkable. Abdominal aorta is of normal diameter and no major vascular abnormality is seen. There is a right inguinal hernia containing a loop of unobstructed small bowel. No abdominal or pelv ic adenopathy. STUDENT OUTREACH COORDINATOR structures appear unremarkable for age. Appendix is normal. No evidence of diverticulitis or bowel obstruction. IMPRESSION: No evidence of acute intra-abdominal process. RADIATION DOSE DELIVERED: 1,058.83mGy.cm Total DLP 1,058.83mGy.cm Total DLP
--- NOTE | 2020-09-04 07:31 | DI.VRAD_ITS ---
PROCEDURE INFORMATION: Exam: CT Abdomen And Pelvis Without Contrast Exam date and time: 09/04/2020 5:37 AM Age: 80 years old Clinical indication: Abdominal pain; Localized; Left; Prior surgery; Surgery type: Gallbladder TECHNIQUE: Imaging protocol: Computed tomography of the abdomen and pelvis without contrast. Radiation optimization: All CT scans at this facility use at least one of these dose optimization techniques: automated exposure control; mA and/or kV adjustment per patient size (includes targeted exams where dose is matched to clinical indication); or iterative reconstruction. COMPARISON: CT CHEST/ABD/PEL WO 01/10/2020 4:32 AM FINDINGS: Liver: Normal. No mass. Gallbladder and bile ducts: Cholecystectomy. Normal bile ducts. Pancreas: Normal. No ductal dilation. Spleen: Normal. No splenomegaly. Adrenal glands: Normal. No mass. Kidneys and ureters: There are at least 2 fairly well-defined hyperdense nodules on the superior pole of left kidney that measure under 5 mm in diameter. There consistent with tiny benign proteinaceous cysts. There is no hydronephrosis. A stable benign right peripelvic cyst is present. No renal stones are seen. Stomach and bowel: There is a very large hiatal hernia containing the stomach and multiple loops of bowel. This is not significantly changed. There is prominent sigmoid diverticulosis. There is no evidence of acute diverticulitis. There is no bowel obstruction or dilatation. There is a small right inguinal hernia containing a short loop of nondilated bowel. Appendix: No evidence of appendicitis. Intraperitoneal space: Unremarkable. No free air. No significant fluid collection. Vasculature: Unremarkable. No abdominal aortic aneurysm. Lymph nodes: Unremarkable. No enlarged lymph nodes. Urinary bladder: Unremarkable as visualized. Reproductive: Unremarkable as visualized. Bones/joints: Prominent degenerative disease in the spine with sclerosis osteophyte formation. There is old compression fracture of T11. Soft tissues: Unremarkable. IMPRESSION: 1. Stable large prominent hiatal hernia. 2. Small right inguinal hernia. 3. Prominent sigmoid diverticulosis. 4. Prominent degenerative disease in the spine. 5. No acute abnormalities are seen in the abdomen and pelvis. Dictated and Authenticated by: Richi Membreno MD. Ordering:RACHAEL Healy MD
[2020-09-04 08:53] LABS: Magnesium 1.3 mg/dL (1.8-2.4)
[2020-09-04] MEDS: Omnipaque 350 MG/ML 100 ML BTL IJ (09:41)
[2020-09-04] MEDS: Normal Saline - Diluent 50 ML VIAL IV (09:42)
[2020-09-04 09:45] VITALS: BP 164/83; PULSE 84; RESP 16; TEMP 36.8; O2SAT 92
--- NOTE | 2020-09-04 10:11 | DI.VRAD_ITS ---
PROCEDURE INFORMATION: Exam: CT Chest With Contrast Exam date and time: 09/04/2020 8:39 AM Age: 80 years old Clinical indication: Other: Hiatal hernia, R/O torsion TECHNIQUE: Imaging protocol: Computed tomography of the chest with intravenous contrast. Contrast material: OMNIPAQUE 350; Contrast volume: 70 ml; Contrast route: INTRAVENOUS (IV); COMPARISON: CT CHEST/ABD/PEL WO 01/10/2020 4:32 AM FINDINGS: Thyroid: There is a 16 mm nonenhancing nodule in the right thyroid lobe and a 12 mm nonenhancing nodule in the left thyroid lobe. Lungs: There is compressive atelectasis in the lung bases. No pneumonia is seen. Pleural space: Unremarkable. No pneumothorax. No pleural effusion. Heart: Heart is not enlarged. There is calcification of the coronary arteries. Mediastinal space: There is a large prominent hiatal hernia. It contains the stomach and a portion of the transverse colon. Pancreatic tail also extends up into the hernia. The size of this hernia has increased since previous CT scan of the chest. The bowel in the hernia is not significantly dilated. Aorta: Unremarkable. No aortic aneurysm. Lymph nodes: Unremarkable. No enlarged lymph nodes. Spleen: There is a 5 cm region of low attenuation in the dome of the spleen. This may represent acute splenic infarct. No other splenic masses are seen. Bones/joints: There is prominent DJD in the spine with sclerosis and osteophyte formation. Soft tissues: See Mediastinal space finding. IMPRESSION: 1. Prominent large hiatal hernia containing stomach transverse colon and pancreas. It has increased in size since previous study but there is no definite evidence of obstruction. 2. 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 3. Coronary artery disease. 4. Bilateral thyroid nodules. Dictated and Authenticated by: Richi Membreno MD. Ordering:[facility] Sarah Fagan MD
[2020-09-04] MEDS: amLODIPine 10 MG TAB PO (10:12)
[2020-09-04] MEDS: POTASSIUM CHLORIDE/0.9% NACL 1,000 ML 85 MEQ IV ×2 (10:12→20:18)
[2020-09-04] MEDS: Metoprolol CR 50 MG TABCR PO (10:12)
--- NOTE | 2020-09-04 10:34 | W.SURGCON ---
Date of service: 09/04/20 Time of Service: 10:34 Assessment and Plan Assessment and plan (1) Coffee ground emesis: Status: Acute Assessment and plan: 80 year old female with a known Hiatal Hernia on Apixiban for A-fib and hx of stroke, who comes in with N/V and coffee ground emesis Suspect she has an ulcer in her stomach CT chest, ABDO/Pelvis reviewed No thickening of the stomach lining Discussed EGD with patient vs medical management. Patient is not sure at this time if she wants to have an EGD. She did ask if I could discuss with her daughter who lives in [place]. I will call her and discuss the case. If she decides she wants to have the procedure then I can do that. Will keep NPO for now. (2) Hiatal hernia: Status: Chronic Assessment and plan: Enlarged since her last CT scan from December of this year. There is now Transverse colon and the tail of the pancreas in the chest. Patient is not interested in definitive surgery for the Hiatal hernia History of Present Illness History of Present Illness Chief Complaint: Hematemesis Narrative: Mrs. Fuller is a pleasant 80 year old female who was seen in the ER for N/V. She states that yesterday she had episodes of vomiting. There was some black emesis. She doesn't complain of abdominal pain or chest pain. She has a known Hiatal hernia which apparently they wanted to fix about 4-5 years ago. She had a stroke sometime just before the scheduled surgery. At this point she doesn't want to have the Hernia fixed. She feels she is too old and the risks are too high. She complains of a sore throat intermittently. She takes Omeprazole 40 mg daily. She is on Apixiban BID due to her a-fib and hx of stroke. Apixiban is on hold at this time. Exam: CT Abdomen And Pelvis Without Contrast Exam date and time: 09/04/2020 5:37 AM COMPARISON: CT CHEST/ABD/PEL WO 01/10/2020 4:32 AM FINDINGS: Liver: Normal. No mass. Gallbladder and bile ducts: Cholecystectomy. Normal bile ducts. Pancreas: Normal. No ductal dilation. Spleen: Normal. No splenomegaly. Adrenal glands: Normal. No mass. Kidneys and ureters: There are at least 2 fairly well-defined hyperdense nodules on the superior pole of left kidney that measure under 5 mm in diameter. There consistent with tiny benign proteinaceous cysts. There is no hydronephrosis. A stable benign right peripelvic cyst is present. No renal stones are seen. Stomach and bowel: There is a very large hiatal hernia containing the stomach and multiple loops of bowel. This is not significantly changed. There is prominent sigmoid diverticulosis. There is no evidence of acute diverticulitis. There is no bowel obstruction or dilatation. There is a small right inguinal hernia containing a short loop of nondilated bowel. Appendix: No evidence of appendicitis. Intraperitoneal space: Unremarkable. No free air. No significant fluid collection. Vasculature: Unremarkable. No abdominal aortic aneurysm. Lymph nodes: Unremarkable. No enlarged lymph nodes. Urinary bladder: Unremarkable as visualized. Reproductive: Unremarkable as visualized. Bones/joints: Prominent degenerative disease in the spine with sclerosis osteophyte formation. There is old compression fracture of T11. Soft tissues: Unremarkable. IMPRESSION: 1. Stable large prominent hiatal hernia. 2. Small right inguinal hernia. 3. Prominent sigmoid diverticulosis. 4. Prominent degenerative disease in the spine. 5. No acute abnormalities are seen in the abdomen and pelvis. CT Chest Exam date and time: 09/04/2020 8:39 AM COMPARISON: CT CHEST/ABD/PEL WO 01/10/2020 4:32 AM FINDINGS: Thyroid: There is a 16 mm nonenhancing nodule in the right thyroid lobe and a 12 mm nonenhancing nodule in the left thyroid lobe. Lungs: There is compressive atelectasis in the lung bases. No pneumonia is seen. Pleural space: Unremarkable. No pneumothorax. No pleural effusion. Heart: Heart is not enlarged. There is calcification of the coronary arteries. Mediastinal space: There is a large prominent hiatal hernia. It contains the stomach and a portion of the transverse colon. Pancreatic tail also extends up into the hernia. The size of this hernia has increased since previous CT scan of the chest. The bowel in the hernia is not significantly dilated. Aorta: Unremarkable. No aortic aneurysm. Lymph nodes: Unremarkable. No enlarged lymph nodes. Spleen: There is a 5 cm region of low attenuation in the dome of the spleen. This may represent acute splenic infarct. No other splenic masses are seen. Bones/joints: There is prominent DJD in the spine with sclerosis and osteophyte formation. Soft tissues: See Mediastinal space finding. IMPRESSION: 1. Prominent large hiatal hernia containing stomach transverse colon and pancreas. It has increased in size since previous study but there is no definite evidence of obstruction. 2. 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 3. Coronary artery disease. 4. Bilateral thyroid nodules. Consults Consult date: 09/04/20 Requesting physician: Rylan Smith Review of Systems Constitutional Constitutional: Denies fever(s) and Denies headache(s) Eyes Eyes: Denies change in vision ENT Ears, Nose, Mouth, and Throat: Denies dysphagia, Denies headache(s) and Denies hoarseness Cardiovascular Cardiovascular: Reports as per HPI, Denies chest pain, Denies chest pain at rest and Denies dyspnea Respiratory Respiratory: Denies cough and Denies dyspnea Gastrointestinal Gastrointestinal: Reports as per HPI and Denies dysphagia Genitourinary Genitourinary: Denies urinary frequency and Denies difficulty voiding Musculoskeletal Musculoskeletal: Reports system reviewed and no additional complaints, except as documented Integumentary/Breasts Skin/Breast: Reports system reviewed and no additional complaints, except as documented Neurologic Neurologic: Reports system reviewed and no additional complaints, except as documented and Denies headache(s) Psychiatric Psychiatric: Reports system reviewed and no additional complaints, except as documented Endocrine Endocrine: Reports system reviewed and no additional complaints, except as documented Hematologic/Lymphatic Hematologic/Lymphatic: Reports system reviewed and no additional complaints, except as documented PFSH Medical History Anticoagulant long-term use Anxiety and depression (09/05/17) Closed extra-articular fracture of distal end of right radius (01/31/17) Dehydration Episode of recurrent major depressive disorder (10/17/16) Gastroenteritis Hiatal hernia Hx of atrial fibrillation, no current medication (04/25/16) Pt was seen by a heating and air conditioning mechanic and was put on Metoprolol but mdication was stopped due to bradycardia. per Dr. 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 Brother Diabetes Brother Diabetes Brother Diabetes Brother Diabetes Brother Diabetes Brother Diabetes Social History Smoking/Tobacco Use Status: Former Tobacco Use Smoking risk assessment performed?: Yes Alcohol Intake: never Drug use: Never Substance use type: does not use Household members: none Number of Children: 4 Current gender identity: female What type of physical activity do you participate in: none Do you feel safe at home: Yes Do you feel safe in your relationship?: Yes Exam Const General: cooperative, comfortable and no acute distress Orientation: alert and oriented x3 HENMT Head: normocephalic and atraumatic Resp Effort & Inspection: normal respiratory effort Auscultation: clear to auscultation bilaterally Cardio Rate: regular rate Rhythm: regular rhythm GI Inspection: normal to inspection Palpation: soft, no hepatosplenomegaly and nontender Auscultation: normal bowel sounds General: deferred Results Last Vital Signs Temp 98.2 F 09/04/20 09:45 Pulse 84 09/04/20 09:45 Resp 16 09/04/20 09:45 BP 164/83 H 09/04/20 09:45 Pulse Ox 92 09/04/20 09:45 Labs Result diagrams: 09/04/20 05:43 09/04/20 05:43 Labs: Laboratory Results - last 24 hr 09/04/20 09/04/20 09/04/20 05:43 05:43 05:43 WBC 10.15 RBC 4.85 Hgb 14.8 Hct 44.3 MCV 91.3 MCH 30.5 MCHC 33.4 RDW 12.7 Plt Count 350 MPV 9.7 Immature Gran % 1.6 Neutrophils % 81.5 Lymphocytes % 8.3 Monocytes % 8.2 Eosinophils % 0.1 Basophils % 0.3 Nucleated RBC % 0 Absolute Neutrophils 8.28 H Absolute Lymphocytes 0.84 L Absolute Monocytes 0.83 H Absolute Eosinophils 0.01 Absolute Basophils 0.03 PT 13.8 H INR 1.4 H APTT 25.9 Sodium 141 Potassium 3.4 L Chloride 103 Carbon Dioxide 23.4 Anion Gap 14.6 H BUN 19 H Creatinine 1.22 H Estimated GFR/1.73 m2 42.30 Glucose 128 H Calcium 8.7 Magnesium Total Bilirubin 0.5 AST 13 L ALT 11 L Alkaline Phosphatase 69 Total Protein 7.0 Albumin 3.7 Lipase 33 09/04/20 05:43 WBC RBC Hgb Hct MCV MCH MCHC RDW Plt Count MPV Immature Gran % Neutrophils % Lymphocytes % Monocytes % Eosinophils % Basophils % Nucleated RBC % Absolute Neutrophils Absolute Lymphocytes Absolute Monocytes Absolute Eosinophils Absolute Basophils PT INR APTT Sodium Potassium Chloride Carbon Dioxide Anion Gap BUN Creatinine Estimated GFR/1.73 m2 Glucose Calcium Magnesium 1.3 L Total Bilirubin AST ALT Alkaline Phosphatase Total Protein Albumin Lipase
[2020-09-04] MEDS: MAGNESIUM SULFATE 4 GM/100 ML BAG IVPB (10:53)
[2020-09-04] MEDS: Budesonide/Formoterol 160/4.5 6 GM 60 PUFF INH IH ×2 (11:14→20:17)
[2020-09-04 11:45] LABS: HGB 13.7 g/dL (11.2-15.7)
[2020-09-04] MEDS: POTASSIUM CHLORIDE 20 MEQ/100 ML BAG 50 MEQ IVPB (12:17)
--- NOTE | 2020-09-04 14:19 | HPE_ITS ---
Date of service: 09/04/20 Time of Service: 14:21 Assessment and Plan Assessment and plan (1) Coffee ground emesis: Status: Acute Assessment and plan: probable esophageal ulceration ([place]) or gastric ulcer. Will keep NPO after midnight tonight for EGD in the a.m. continue iv protonix for now. continue to hold her Eliquis. Patient still declines any surgical treatment of her hiatal hernia (2) Hiatal hernia: Status: Chronic Assessment and plan: as above (3) Atrial fibrillation: Status: Acute Assessment and plan: Continue home medication of metoprolol XL 50 mg daily. We will withhold her Eliquis pending results of her EGD Qualifiers: Atrial fibrillation type: paroxysmal Qualified Code(s): I48.0 - Paroxysmal atrial fibrillation (4) Gastroesophageal reflux disease: Status: Acute Assessment and plan: As above Qualifiers: Esophagitis presence: esophagitis presence not specified Qualified Code(s): K21.9 - Gastro-esophageal reflux disease without esophagitis History of Present Illness History of Present Illness Chief Complaint: Nausea with vomiting of coffee- ground type material Narrative: 80-year-old female with a past medical history significant for large hiatal hernia previously evaluated at [facility] and patient has chosen not to have surgical repair of the same, chronic atrial fibrillation on anticoagulation with apixaban, GERD who presented to the emergency department having experienced transient diarrhea for 2 to 3 days treated by her PCP with antibiotics and now presents emergency department with 2-day history of nausea and vomiting which include coffee ground emesis this morning. Patient denies any melanotic stools. She has no abdominal pain. Nausea was treated the emergency department with IV Zofran. Patient was started on IV fluids and given IV Pepcid and Protonix. CBC on admission showed normal hemoglobin hematocrit of 14.8 g and 44%. She is admitted for overnight observation and serial H&H's and surgical consultation for an EGD. CT of the abdomen and pelvis is performed through the emergency department showed a large prominent hiatal hernia small right inguinal hernia and prominent sigmoid diverticulosis but no acute abdominal process. Because of the repeated bouts of emesis this morning a CT scan of her chest was performed to rule out torsion of her hiatal hernia. CT of the chest shows a large hiatal hernia containing stomach and transverse colon as well as the tail of the pancreas. Her hiatal hernia has increased in size since her previous study. She also has bilateral thyroid nodules and coronary artery atherosclerosis. No aortic aneurysm and no evidence for obstructive process. I discussed the case with Dr. Viviana Quick who is seen the patient and is prepared to perform an EGD tomorrow morning. I discussed the indications and alternatives with the patient and she would like to proceed with the EGD. I think given her history of atrial fibrillation and need for chronic anticoagulation because of previous strokes an EGD would be important before resuming her Eliquis. Patient be kept on IV Protonix 40 mg every 12 hours and once EGD is performed we will consider addition of Carafate as well as a doubling of her home PPI dose. Review of Systems All systems reviewed & are unremarkable except as noted in HPI and below Cardiovascular Cardiovascular: Reports system reviewed and no additional complaints, except as documented Respiratory Respiratory: Reports system reviewed and no additional complaints, except as documented Gastrointestinal Gastrointestinal: Reports system reviewed and no additional complaints, except as documented [facility] Medical History Anticoagulant long-term use Anxiety and depression (09/05/17) Closed extra-articular fracture of distal end of right radius (01/31/17) Dehydration Episode of recurrent major depressive disorder (10/17/16) Gastroenteritis Hiatal hernia Hx of atrial fibrillation, no current medication (04/25/16) Pt was seen by a sheet metal installer and was put on Metoprolol but mdication was stopped due to bradycardia. per Dr. 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 Brother Diabetes Brother Diabetes Brother Diabetes Brother Diabetes Brother Diabetes Brother Diabetes Social History Smoking/Tobacco Use Status: Former Tobacco Use Smoking risk assessment performed?: Yes Alcohol Intake: never Drug use: Never Substance use type: does not use Household members: none Number of Children: 4 Current gender identity: female What type of physical activity do you participate in: none Do you feel safe at home: Yes Do you feel safe in your relationship?: Yes Meds Home Medications and Allergies Home Medications Medication Instructions Recorded Confirmed Type Prolia 60 mg SQ [id number] 11/16/16 09/04/20 History calcium-vitamin D3-vitamin K 1 ea PO DAILY tab.chew 11/16/16 09/04/20 History Varicella-Zoster Ge/As01b/Pf 50 mcg IM ONCE #1 kit 04/29/18 01/10/20 Clinic [Shingrix Vial Kit] albuterol sulfate 90 mcg/actuation 2 inh IH Q6H PRN #1 each 04/10/19 09/04/20 Rx breath activated powder inhaler amlodipine 10 mg tablet 10 mg PO DAILY #90 tab 08/20/19 09/04/20 Rx fluticasone propionate 250 1 inh IH BID #60 each 08/20/19 09/04/20 Rx mcg/actuation blister powder for inhalation acetaminophen 650 mg 650 mg PO Q6H PRN #60 tab-cap 10/16/19 09/04/20 History tablet,extended release omeprazole 40 mg capsule,delayed 40 mg PO DAILY #90 tab-cap 10/20/19 09/04/20 Rx release fenofibrate nanocrystallized 48 mg 48 mg PO DAILY #90 tab-cap 12/10/19 09/02/20 Rx tablet metoprolol succinate 50 mg 50 mg PO DAILY #90 tab 03/03/20 09/04/20 Rx tablet,extended release 24 hr fluticasone fur. 100 mcg-umeclid 1 inh IH DAILY 03/26/20 09/04/20 History 62.5 mcg-vilant 25 mcg inhalat.powder apixaban 5 mg tablet 5 mg PO BID #60 tab 03/29/20 09/04/20 Rx fluticasone furoate 200 1 inh IH DAILY 04/29/20 09/04/20 History mcg-vilanterol 25 mcg/dose inhalation powder hydrocodone 5 mg-acetaminophen 325 1 tab PO BID PRN #6 tab MDD 2 tabs 05/24/20 09/04/20 Rx mg tablet levofloxacin 750 mg tablet 750 mg PO DAILY #7 tab 09/02/20 09/04/20 Rx metronidazole 500 mg tablet 500 mg PO Q8H #21 tab 09/02/20 09/04/20 Rx Allergies Allergy/AdvReac Type Severity Reaction Status Date / Time Penicillins Allergy Unknown Swelling/Ed Verified 09/04/20 05:34 bobo/Itching Sulfa (Sulfonamide AdvReac Unknown GI symptoms Verified 09/04/20 05:34 Antibiotics) Exam Narrative Exam Narrative: Elderly female who is alert and oriented person place time circumstance sitting up on [facility] watching TV. Neck is supple nontender no JVD normal carotid pulses Lungs are clear to auscultation Heart regular rate and rhythm with a harsh loud systolic murmur over the aortic outflow tract and along the left lower sternal border. Abdomen soft nondistended nontender normal active bowel sounds. Extremities without peripheral cyanosis or edema. Neurologic exam is grossly intact no focal deficits Results Labs Result diagrams: 09/04/20 11:38 09/04/20 05:43 Labs: Laboratory Results - last 24 hr 09/04/20 09/04/20 09/04/20 05:43 05:43 05:43 WBC 10.15 RBC 4.85 Hgb 14.8 Hct 44.3 MCV 91.3 MCH 30.5 MCHC 33.4 RDW 12.7 Plt Count 350 MPV 9.7 Immature Gran % 1.6 Neutrophils % 81.5 Lymphocytes % 8.3 Monocytes % 8.2 Eosinophils % 0.1 Basophils % 0.3 Nucleated RBC % 0 Absolute Neutrophils 8.28 H Absolute Lymphocytes 0.84 L Absolute Monocytes 0.83 H Absolute Eosinophils 0.01 Absolute Basophils 0.03 PT 13.8 H INR 1.4 H APTT 25.9 Sodium 141 Potassium 3.4 L Chloride 103 Carbon Dioxide 23.4 Anion Gap 14.6 H BUN 19 H Creatinine 1.22 H Estimated GFR/1.73 m2 42.30 Glucose 128 H Calcium 8.7 Magnesium Total Bilirubin 0.5 AST 13 L ALT 11 L Alkaline Phosphatase 69 Total Protein 7.0 Albumin 3.7 Lipase 33 09/04/20 09/04/20 05:43 11:38 WBC RBC Hgb 13.7 Hct 41.0 MCV MCH MCHC RDW Plt Count MPV Immature Gran % Neutrophils % Lymphocytes % Monocytes % Eosinophils % Basophils % Nucleated RBC % Absolute Neutrophils Absolute Lymphocytes Absolute Monocytes Absolute Eosinophils Absolute Basophils PT INR APTT Sodium Potassium Chloride Carbon Dioxide Anion Gap BUN Creatinine Estimated GFR/1.73 m2 Glucose Calcium Magnesium 1.3 L Total Bilirubin AST ALT Alkaline Phosphatase Total Protein Albumin Lipase Last Vital Signs Temp 36.8 C 09/04/20 09:45 Pulse 84 09/04/20 09:45 Resp 16 09/04/20 09:45 BP 164/83 H 09/04/20 09:45 Pulse Ox 92 09/04/20 09:45 COVID-19 Screening Have you,or household,traveled outside [place] in last 14 days?: No Had IN PERSON contact w/suspected or confirmed C-19 person: No
[2020-09-04 15:25] VITALS: BP 149/75; PULSE 71; RESP 20; TEMP 36.9; O2SAT 93
[2020-09-04 15:47] LABS: HCT 39.7 % (36.0-46.0); HGB 13.2 g/dL (11.2-15.7)
--- NOTE | 2020-09-04 17:31 | W.PM.ENDDOP ---
Date of service: 09/04/20 Time of Service: 18:38 Endoscopy Report DATE OF PROCEDURE: 09/04/20 PRE-OP DIAGNOSIS: Hiatal Hernia, Coffee ground emesis PROCEDURE: EGD SURGEON: Viviana Quick ANESTHESIA: other (ASA 3/ Hal Peralta, AVERY) ESTIMATED BLOOD LOSS: 0 PATHOLOGY: none sent COMPLICATIONS: None DISPOSITION: floor INDICATIONS: 80 year old female with a known Hiatal Hernia on Apixiban for A-fib and hx of stroke, who comes in with N/V and coffee ground emesis Suspect she has an ulcer in her stomach EGD discussed. Risks, benefits and complications reviewed. PROCEDURE DESCRIPTION: After informed consent was obtained the patient was take to the procedure room and placed in a supine position. Monitors were applied and a time out was done. The patients name, date of , procedure type, allergies to medications and metal in their body was reviewed. A bite block was placed and the patient was sedated. Once sedated and comfortable the gastroscope was advanced through the oropharynx which was grossly normal into the esophagus. The proximal and mid-esophagus were normal. In the distal esophagus there was mild inflammation noted. There was no scarring. The scope was advanced into the stomach. There was mild inflammation. There were no ulcers and no active bleeding. It was difficult to get the scope to move through the pylorus because the entire stomach was in the chest. A small diverticulum was noted in the duodenum as well as some mild inflammation. There were no ulcers. The scope was retracted back into the stomach. The scope was retroflexed. The cardia and fundus were noted to be normal. The scope was retracted back into the esophagus. The Z line was regular. The GE junction was at 22 cm. The scope was removed and the patient was woken up and taken back to [facility] in stable condition. Follow up: as needed. I will start the patient on Carafate and start on a diet.
[2020-09-04] MEDS: Lactated Ringers 1,000 ML 50 ML IV (18:03)
[2020-09-04] MEDS: Normal Saline Flush 10 ML SYR IVP (18:55)
[2020-09-04 19:35] VITALS: BP 157/63; PULSE 65; RESP 17; TEMP 36.9; O2SAT 95
[2020-09-04] MEDS: Sucralfate 1 GM TAB PO (22:07)
[2020-09-04 23:19] VITALS: BP 114/66; PULSE 65; RESP 16; TEMP 37.2; O2SAT 95
[2020-09-05 03:49] VITALS: BP 150/70; PULSE 63; RESP 16; TEMP 36.6; O2SAT 94
[2020-09-05] MEDS: Pantoprazole 40 MG VIAL IVP (05:16)
[2020-09-05] MEDS: Normal Saline Flush 10 ML SYR IVP ×2 (05:17→08:19)
[2020-09-05 07:39] LABS: Abs Immature Grans 0.05 10^3/uL (0.0-0.06); Absolute Basophil Count 0.03 10^3/uL (0.0-0.2); Absolute Eosinophil Count 0.19 10^3/uL (0.0-0.7); Absolute Monocyte Count 0.68 10^3/uL (0.1-0.8); Absolute Neutrophil Count 5.24 10^3/uL (1.2-6.7); Basophils % 0.4; Eosinophils % 2.6; HCT 36.2 % (36.0-46.0); HGB 11.7 g/dL (11.2-15.7); Immature Grans % 0.7; Lymphocytes % 15.1; MCH 30.2 pg (27.0-33.0); MCHC 32.3 % (32.0-36.0); MCV 93.5 fL (80-95); MPV 10.1 fL (8.0-11.0); Monocytes % 9.3; Neutrophils % 71.9; Nucleated RBC 0 %; Platelet Count 241 10^3/uL (130-400); RBC 3.87 10^6/uL (3.93-5.22); RDW 13.3 % (11.7-14.6); RDW-SD 45.1 fL; WBC 7.29 10^3/uL (4.4-10.8)
[2020-09-05 07:55] VITALS: BP 119/64; PULSE 67; RESP 17; TEMP 36.6; O2SAT 94
[2020-09-05 08:03] LABS: Anion Gap 1.9 mmol/L (3-11); BUN 16 mg/dL (7-18); CO2 25.1 mmol/L (21.0-32.0); Calcium 7.2 mg/dL (8.5-10.1); Chloride 108 mmol/L (98-107); Glucose 89 mg/dL (74-106); Potassium 3.5 mmol/L (3.5-5.1); Sodium 135 mmol/L (136-145)
[2020-09-05 08:04] LABS: Magnesium 2.2 mg/dL (1.8-2.4)
[2020-09-05] MEDS: Budesonide/Formoterol 160/4.5 6 GM 60 PUFF INH IH (08:07)
[2020-09-05] MEDS: Sucralfate 1 GM TAB PO ×2 (08:19→11:42)
[2020-09-05] MEDS: Metoprolol CR 50 MG TABCR PO (08:19)
[2020-09-05] MEDS: amLODIPine 10 MG TAB PO (08:19)
[2020-09-05 11:15] VITALS: BP 137/68; PULSE 67; RESP 18; TEMP 36.8; O2SAT 90
--- NOTE | 2020-09-05 12:06 | W.PM.PROGNOT ---
Date of Service Date of service: 09/05/20 Time of Service: 12:07 Assessment and Plan Assessment and plan (1) Coffee ground emesis: Status: Acute Assessment and plan: No further episodes of vomiting and no hematemesis or hematochezia (2) Hiatal hernia: Status: Chronic Assessment and plan: Patient found to have a large hiatal hernia on CT scan but no incarceration or torsion. No esophageal ulcerations were seen on EGD. Patient's omeprazole will be increased to twice a day and Carafate has been added to her regimen. Patient will be discharged home. She is advised to eat small frequent meals and soft foods. (3) Atrial fibrillation: Status: Acute Assessment and plan: Continue home medication of metoprolol XL 50 mg daily. Patient can resume her Eliquis this evening. Qualifiers: Atrial fibrillation type: paroxysmal Qualified Code(s): I48.0 - Paroxysmal atrial fibrillation (4) Gastroesophageal reflux disease: Status: Acute Assessment and plan: As above Qualifiers: Esophagitis presence: esophagitis presence not specified Qualified Code(s): K21.9 - Gastro-esophageal reflux disease without esophagitis Subjective Subjective Interval history since last seen: Patient had her EGD last night which showed no source of acute upper GI bleeding. Patient had mild inflammation of her distal esophagus and stomach as well as the first part of her duodenum. She has a small diverticulum in her duodenum but no ulcers were seen. Patient was restarted on a regular diet and today she has been tolerating her diet with no nausea or vomiting and no abdominal pain. Patient would like to return home today. I explained to her abdomen increase her omeprazole to twice a day and add Carafate to her regimen. Exam Narrative Exam Narrative: Elderly female sitting up in bed in no distress. She is alert and oriented person place time circumstance. Abdomen soft nontender nondistended normal active bowel sounds Objective Last Vital Signs Temp 36.8 C 09/05/20 11:15 Pulse 67 09/05/20 11:15 Resp 18 09/05/20 11:15 BP 137/68 09/05/20 11:15 Pulse Ox 90 L 09/05/20 11:15 Laboratory Results - last 24 hr 09/04/20 09/05/20 09/05/20 15:37 06:28 06:28 WBC RBC Hgb 13.2 Hct 39.7 MCV MCH MCHC RDW Plt Count MPV Immature Gran % Neutrophils % Lymphocytes % Monocytes % Eosinophils % Basophils % Nucleated RBC % Absolute Neutrophils Absolute Lymphocytes Absolute Monocytes Absolute Eosinophils Absolute Basophils Sodium 135 L Potassium 3.5 Chloride 108 H Carbon Dioxide 25.1 Anion Gap 1.9 L BUN 16 Creatinine 0.90 Estimated GFR/1.73 m2 >= 60.00 Glucose 89 Calcium 7.2 L Magnesium 2.2 09/05/20 06:28 WBC 7.29 RBC 3.87 L Hgb 11.7 Hct 36.2 MCV 93.5 MCH 30.2 MCHC 32.3 RDW 13.3 Plt Count 241 D MPV 10.1 Immature Gran % 0.7 Neutrophils % 71.9 Lymphocytes % 15.1 Monocytes % 9.3 Eosinophils % 2.6 Basophils % 0.4 Nucleated RBC % 0 Absolute Neutrophils 5.24 Absolute Lymphocytes 1.10 L Absolute Monocytes 0.68 Absolute Eosinophils 0.19 Absolute Basophils 0.03 Sodium Potassium Chloride Carbon Dioxide Anion Gap BUN Creatinine Estimated GFR/1.73 m2 Glucose Calcium Magnesium
--- NOTE | 2020-09-05 12:38 | DSE_ITS ---
Date of service: 09/05/20 Time of Service: 12:38 DS: Diagnosis Discharge Diagnosis (1) Coffee ground emesis: Status: Resolved Asessment and Plan: no further episodes of coffee ground emesis occurred since admission. Patient's hemogram remained stable. No source of bleeding was found on her EGD. She has mild esophageal, gastric and duodenal inflammation but no ulcers and no obstruction. Patient tolerated a regular diet. She was told to eat small, frequent meals and no snacks or meals w/in 3 hours of lying down. Her omeprazole was increased to 40 mg bid and carafate 1 gm AC/HS was added. Patient declines to have any surgery to correct her hiatal hernia. (2) Hiatal hernia: Status: Chronic Asessment and Plan: as above (3) Atrial fibrillation: Status: Chronic Asessment and Plan: no changes in her medications. she can resume her Apixaban tonight. (4) Gastroesophageal reflux disease: Status: Chronic Asessment and Plan: as above Discharge Plan Disposition Patient Disposition: HOME Condition: Good Discharge Details Reason For Visit: HEMATEMESIS Admit Date/Time: 09/04/20 08:21 Admit Provider: Rylan Smith Attending Provider: Rylan Smith Primary Care Provider: Patricia Garza Hospital Course Hospital Course: 80-year-old female with L1 past medical history significant for large hiatal hernia who previously been evaluated [facility] and has chosen not to have surgical repair of the same, chronic atrial fibrillation on anticoagulation with apixaban, GERD who presented emergency department with nausea and vomiting and coffee-ground emesis. Said 2 days his symptoms prior to that she this was preceded by 2 to 3 days of transient diarrhea treated by her PCP with antibiotics. Patient denies any melanotic stools and denies abdominal pain. Nausea was controlled emergency department with IV Zofran and she was started on IV Pepcid and Protonix. She was admitted to the hospital for treatment and monitoring of her blood count. Hemoglobin is 14 point grams hematocrit 44% on admission. Surgical consultation was obtained with Dr. Viviana Quick who performed an EGD on September 04, 2020. See her surgical note for details. In summary patient had a large hiatal hernia with some inflammation of the esophagus and stomach and duodenum but no ulcerations and no evidence of acute bleeding. Patient was started on Carafate 1 g before meals and at bedtime in addition to twice a day dosing of Protonix. Patient did well with advancement of her diet and requested to be discharged home. I discussed with her her need to eat small frequent meals rather than 3 large meals and to avoid any meals or snacks within a 3 to 4-hour window of bedtime or lying down. Home Meds and New Rx's Prescriptions: New sucralfate [Carafate] 100 mg/mL suspension 10 ml PO QACHS 30 Days Qty: 1200 RF: 0 Continued Eliquis 5 mg tablet 5 mg PO BID Qty: 60 RF: 12 albuterol sulfate 90 mcg/actuation aerosol powdr breath activated 2 inh IH Q6H PRN (Reason: shortness of breath or wheezing) Qty: 1 RF: 6 amlodipine 10 mg tablet 10 mg PO DAILY Qty: 90 RF: 3 Flovent Diskus 250 mcg/actuation blister with device 1 inh IH BID Qty: 60 RF: 12 hydrocodone-acetaminophen 5-325 mg tablet 1 tab PO BID MDD 2 tabs PRN (Reason: pain) Qty: 6 RF: 0 Prolia 60 MG/1 ML syringe 60 mg SQ [id number] RF: 0 calcium-vitamin D3-vitamin K 1 EACH tablet,chewable 1 ea PO DAILY RF: 0 Varicella-Zoster Ge/As01b/Pf [Shingrix Vial Kit] 50 MCG INJ 50 mcg IM ONCE Qty: 1 RF: 1 acetaminophen 650 mg tablet extended release 650 mg PO Q6H PRN Qty: 60 RF: 0 fenofibrate nanocrystallized 48 mg tablet 48 mg PO DAILY Qty: 90 RF: 3 metoprolol succinate 50 mg tablet extended release 24 hr 50 mg PO DAILY Qty: 90 RF: 3 Trelegy Ellipta 100-62.5-25 mcg blister with device 1 inh IH DAILY RF: 0 Breo Ellipta 200-25 mcg/dose blister with device 1 inh IH DAILY RF: 0 Changed omeprazole 40 mg capsule,delayed release(DR/EC) 40 mg PO BID Qty: 90 RF: 3 Discontinued levofloxacin 750 mg tablet 750 mg PO DAILY Qty: 7 RF: 0 metronidazole 500 mg tablet 500 mg PO Q8H Qty: 21 RF: 0 Discharge Instructions Instructions: Hiatal Hernia (DC), Gastroesophageal Reflux in Infants (DC) Referrals: Patricia Garza NP [Primary Care Provider] - (call the office for follow up) Activity:: Activity as Tolerated Equipment/Supplies:: No Equipment Needed Diet:: Normal Diet Discharge Orders Discharge Orders: Discharge Order (Routine); Ordered 09/05/20 Ordered By: Rylan Smith DS: Summary Status at Discharge Functional status at discharge: independent ambulation Overall status at discharge: patient is back to baseline Mental Status: mental status grossly normal Speech and Movement: speech and movement normal Mood: congruent mood Affect: normal affect Time Spent with Patient providing and/or coordinating discharge services: Greater than 30 minutes Specific discharge activities: discussion of her EGD results w/ Dr. Quick, sending Rx to her pharmacy, discussion of med changes w/ the patient. Exam Narrative Exam Narrative: Elderly female sitting up in bed in no distress. She is alert and oriented person place time circumstance. Abdomen soft nontender nondistended normal active bowel sounds Psych Mental Status: mental status grossly normal Speech and Movement: speech and movement normal Mood: congruent mood Affect: normal affect DS: Data Vitals/I&O Vitals and I&O: Vital Signs Temperature 36.8 C 09/05/20 11:15 Temperature Source Tympanic 09/05/20 11:15 Pulse 67 09/05/20 11:15 Pulse Rhythm Regular 09/05/20 09:36 Respiratory Rate 18 09/05/20 11:15 Respiratory Effort Non-Labored 09/05/20 09:36 Respiratory Depth Normal 09/05/20 09:36 Respiratory Pattern Normal 09/05/20 09:36 Blood Pressure 137/68 09/05/20 11:15 Blood Pressure Position Sitting 09/04/20 05:29 Pulse Oximetry 90 L 09/05/20 11:15 Oxygen Delivery Method Room Air 09/05/20 11:15 Oxygen Flow Rate 0 09/05/20 11:15 Pain Level 0 09/05/20 11:15 Intake & Output 09/04/20 09/05/20 09/05/20 23:59 11:59 23:59 Intake Total 1458.5 / 2518.5 1200 / 1200 Balance 1458.5 / 2518.5 1200 / 1200 Weight 69.9 kg Intake: IV 1158.5 / 2218.5 1000 / 1000 Oral 300 / 300 200 / 200 Other: Urine Appearance Clear Clear Data Completed and Pending Labs on day of discharge: Labs from last 24 hours 09/05/20 09/05/20 09/05/20 06:28 06:28 06:28 WBC 7.29 RBC 3.87 L Hgb 11.7 Hct 36.2 MCV 93.5 MCH 30.2 MCHC 32.3 RDW 13.3 Plt Count 241 D MPV 10.1 Immature Gran % 0.7 Neutrophils % 71.9 Lymphocytes % 15.1 Monocytes % 9.3 Eosinophils % 2.6 Basophils % 0.4 Nucleated RBC % 0 Absolute Neutrophils 5.24 Absolute Lymphocytes 1.10 L Absolute Monocytes 0.68 Absolute Eosinophils 0.19 Absolute Basophils 0.03 Sodium 135 L Potassium 3.5 Chloride 108 H Carbon Dioxide 25.1 Anion Gap 1.9 L BUN 16 Creatinine 0.90 Estimated GFR/1.73 m2 >= 60.00 Glucose 89 Calcium 7.2 L Magnesium 2.2 SARS-CoV-2 Source SARS-CoV-2 (PCR) 09/04/20 09/04/20 15:37 08:50 WBC RBC Hgb 13.2 Hct 39.7 MCV MCH MCHC RDW Plt Count MPV Immature Gran % Neutrophils % Lymphocytes % Monocytes % Eosinophils % Basophils % Nucleated RBC % Absolute Neutrophils Absolute Lymphocytes Absolute Monocytes Absolute Eosinophils Absolute Basophils Sodium Potassium Chloride Carbon Dioxide Anion Gap BUN Creatinine Estimated GFR/1.73 m2 Glucose Calcium Magnesium SARS-CoV-2 Source Pending SARS-CoV-2 (PCR) Pending [facility] Medical History Anticoagulant long-term use Anxiety and depression (09/05/17) Closed extra-articular fracture of distal end of right radius (01/31/17) Dehydration Episode of recurrent major depressive disorder (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 per Dr. 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 Brother Diabetes Brother Diabetes Brother Diabetes Brother Diabetes Brother Diabetes Brother Diabetes Social History Smoking/Tobacco Use Status: Former Tobacco Use Smoking risk assessment performed?: Yes Alcohol Intake: never Drug use: Never Substance use type: does not use Household members: none Number of Children: 4 Current gender identity: female What type of physical activity do you participate in: none Do you feel safe at home: Yes Do you feel safe in your relationship?: Yes
[2020-09-06 11:22] LABS: SARS-CoV-2 RNA Source Nasal/Nares
[2020-09-06 11:24] LABS: SARS-CoV-2 RNA Detected (NotDetected)
== END 2020-09-05 14:00 | disposition home or self-care (01) ==
LOC: ER 08:22 → MS 09:09
PROVIDERS: Surgery; Admitting Provider Internal Medicine; Emergency Provider Student in an Organized Health Care Education/Training Program; PCP Nurse Practitioner; Visit Provider Internal Medicine
PROC: 0DJ68ZZ Inspection of Stomach, Via Natural or Artificial Opening Endoscopic (ICD-10-PCS; CPT 43235; principal; 2020-09-04 17:15)
DX: K92.0 Hematemesis (principal); K44.9 Diaphragmatic hernia without obstruction or gangrene; K21.9 Gastro-esophageal reflux disease without esophagitis; U07.1 COVID-19; I48.0 Paroxysmal atrial fibrillation; Z79.01 Long term (current) use of anticoagulants; Z86.73 Personal history of transient ischemic attack (TIA), and cerebral infarction without residual deficits
CPT/HCPCS: 43235; 36415; 80048; 80053; 83690; 90662; 94640; 96361; 96374; 96375; 99214; 99220; 99225; 99239; 99253; 99285; U0003; 71260; 74176; 83735; 85014; 85018; 85025; 85610; 85730; 99217; G0378; J2405; J3475; J3480; J3490

== ENCOUNTER 2020-10-01 03:26 | Outpatient (CLI) | payer MEDICARE, SELFPAY ==
[2020-10-04 14:16] LABS: COVID-19 RT-PCR Result NEGATIVE (Negative)
== END 2020-10-01 03:46 ==
PROVIDERS: PCP Nurse Practitioner; Visit Provider Nurse Practitioner
DX: Z20.828 Contact with and (suspected) exposure to other viral communicable diseases (principal)
CPT/HCPCS: U0003

== ENCOUNTER 2020-11-29 03:12 | Outpatient (RCR) | payer MEDICARE, SELFPAY ==
[2020-11-29] MEDS: Denosumab 60 MG/ML SYR SC (13:14)
== END 2020-12-26 23:59 | disposition home or self-care (01) ==
LOC: INF 03:12
PROVIDERS: PCP Nurse Practitioner; Visit Provider Nurse Practitioner
DX: M81.0 Age-related osteoporosis without current pathological fracture (principal)
CPT/HCPCS: 96372; J0897

== ENCOUNTER → 2021-02-24 11:03 | Outpatient (BNVA) | payer MEDICARE, SELFPAY | PROVIDERS: PCP Nurse Practitioner; Referring Provider Nurse Practitioner; Visit Provider Nurse Practitioner Gerontology | DX: N39.46 Mixed incontinence (principal); Z86.16 Personal history of COVID-19; J44.9 Chronic obstructive pulmonary disease, unspecified; I10 Essential (primary) hypertension | CPT/HCPCS: 99215 ==

== ENCOUNTER 2021-02-25 03:53 | Outpatient (CLI) | payer MEDICARE, SELFPAY ==
--- NOTE | 2021-02-25 06:45 | DI.DEXA_ITS ---
Exam(s) XR DEXA BONE DENSITY W/WO LAILA EXAM: XR DEXA BONE DENSITY W/WO LAILA CLINICAL HISTORY: f/u osteoporosis. On Prolia,M81.0 TECHNIQUE: COMPARISON: CT CT ABDOMEN PELVIS WO from 09/04/2020 Comparison DEXA scan is 02/13/2017. FINDINGS: Lateral Spine Image: There is again seen a marked compression fracture deformity of T11. Left hip: Total T-Score: -2.5. This compares with -3.3 on the prior examination. Total Z-Score: -0.3 T- and Z-scores: Findings are consistent with osteoporosis. Lumbar Spine: Total T-Score: -0.4. This compares with -1.7 on the prior examination. Total Z-Score: 2.4 T- and Z-scores: Within normal limits. IMPRESSION: Osteoporosis in the left hip.
== END 2021-02-25 04:13 ==
PROVIDERS: PCP Nurse Practitioner; Visit Provider Nurse Practitioner
DX: M81.0 Age-related osteoporosis without current pathological fracture (principal)
CPT/HCPCS: 77080

== ENCOUNTER 2021-03-07 03:21 | Outpatient (CLI) | payer MEDICARE, SELFPAY ==
[2021-03-07 09:13] LABS: HGB 13.5 g/dL (11.2-15.7); MCH 30.1 pg (27.0-33.0); MCHC 32.1 % (32.0-36.0); MCV 93.8 fL (80-95); MPV 9.4 fL (8.0-11.0); Platelet Count 327 10^3/uL (130-400); RBC 4.48 10^6/uL (3.93-5.22); RDW 13.4 % (11.7-14.6); RDW-SD 45.9 fL
[2021-03-07 10:00] LABS: ALT 18 U/L (14-59); AST 9 U/L (15-37); Albumin 3.8 g/dL (3.4-5.0); Alkaline Phosphatase 70 U/L (46-116); BUN 21 mg/dL (7-18); Bilirubin, Total 0.5 mg/dL (0.2-1.0); Calcium 8.9 mg/dL (8.5-10.1); Calculated LDL 111 mg/dL (<100); Chloride 106 mmol/L (98-107); Cholesterol 196 mg/dL (<200); Estimated GFR 53.08 (mL/min/1.73m2); Glucose 83 mg/dL (74-106); HDL Cholesterol 72 mg/dL (40-60); Potassium 3.9 mmol/L (3.5-5.1); Sodium 143 mmol/L (136-145); Total Protein 6.5 g/dL (6.4-8.2); Triglyceride 66 mg/dL (<150)
== END 2021-03-07 03:22 | disposition home or self-care (01) ==
LOC: LBO 03:22
PROVIDERS: PCP Nurse Practitioner; Visit Provider Nurse Practitioner
DX: I10 Essential (primary) hypertension (principal); E78.5 Hyperlipidemia, unspecified; R73.9 Hyperglycemia, unspecified
CPT/HCPCS: 36415; 80053; 80061; 85027

== ENCOUNTER 2021-03-07 12:46 | Outpatient (CLI) | payer MEDICARE, SELFPAY ==
--- NOTE | 2021-03-07 14:15 | DI.RAD_ITS ---
Exam(s) XR CHEST 2V PA LATERAL EXAM: XR CHEST 2V PA LATERAL CLINICAL HISTORY: LEWIS, worsened this last radha. R06.00, K44.9DIAPHRAGMATIC HERNIA. TECHNIQUE: 2D digital imaging was performed. COMPARISON: CR XR RIBS LT W PA LAT CHEST from 05/24/2020 FINDINGS: Heart size upper normal. The mediastinum is not widened. A huge retrocardiac hiatal hernia is again noted. No obvious new right lung findings but there is a subtle suggestion of a nodular infiltrate in the le ft upper lobe measuring approximately 1 cm. Not previously present. No pleural effusions. Compression fracture of what is probably T12 is unchanged. IMPRESSION: 1 centimeter noncalcified nodular infiltrate left upper lobe. Recommend follow-up CT scan to rule ou t malignancy. DATA REPOSITORY: RADIATION DOSE DELIVERED:
== END 2021-03-07 13:06 ==
PROVIDERS: PCP Nurse Practitioner; Visit Provider Nurse Practitioner
DX: R06.09 Other forms of dyspnea (principal); K44.9 Diaphragmatic hernia without obstruction or gangrene; R91.8 Other nonspecific abnormal finding of lung field; I10 Essential (primary) hypertension; E78.5 Hyperlipidemia, unspecified; R73.9 Hyperglycemia, unspecified
CPT/HCPCS: 36415; 80053; 80061; 85027; 71046

== ENCOUNTER 2021-03-15 01:44 | Outpatient (CLI) | payer MEDICARE, SELFPAY ==
--- NOTE | 2021-03-15 09:23 | DI.CT_ITS ---
Exam(s) CT CHEST WO EXAM: CT CHEST WO CLINICAL HISTORY: 1 cm MIKE noncalcified nodule,DYSPNEA,R06.00,R91.1 TECHNIQUE: Imaging Protocol: Axial computed tomography images with coronal and sagittal reformatted images were created and reviewed CONTRAST MATERIAL: Noncontrast COMPARISON: CT CT CHEST W from 09/04/2020 CR XR CHEST 2V PA LATERAL from 03/07/2021 CR XR CHEST 2V PA LATERAL from 03/07/2021 FINDINGS: Tracheobronchial tree: Patent where visualized. Mediastinum and Rosalba: No dominant adenopathy or fluid collection. Pulmonary parenchyma: No consolidation or dominant measurable mass. No architectural distortion. No pulmonary nodule. Pleura: No effusion or pneumothorax. Heart: The heart is not dilated. Mild coronary artery calcifications are seen. Aorta: Thoracic aorta non-dilated. Upper abdomen: Large hiatal hernia containing stomach, mesenteric fat and colon.. Status post arlen cystectomy. Lymph nodes: Within normal limits. Bones: Stable severe compression fracture of T11. Old bilateral rib fractures. Degenerative changes in the mid and lower thoracic spine. IMPRESSION: No evidence of pulmonary nodule. The density the left upper lobe on chest x-ray there is appears to be associated with old rib fractures. Large hiatal hernia. RADIATION DOSE DELIVERED: 376.02mGy.cm Total DLP DATA REPOSITORY: All CT scans at this facility are submitted to the National Radiology Data Registry (NRDR) Dose Index Registry (DIR) with the [employer] ([employer]). RADIATION OPTIMIZATION: All CT scans at this facility use at least one of these dose optimization te chniques: automated exposure control; mA and/or kV adjustment per patient size (includes targeted exa ms where dose is matched to clinical indication); or iterative reconstruction.
== END 2021-03-15 02:04 ==
PROVIDERS: PCP Nurse Practitioner; Visit Provider Nurse Practitioner
DX: R91.1 Solitary pulmonary nodule (principal); R06.09 Other forms of dyspnea; K44.9 Diaphragmatic hernia without obstruction or gangrene
CPT/HCPCS: 71250

== ENCOUNTER 2021-06-02 02:58 | Outpatient (RCR) | payer MEDICARE, SELFPAY ==
[2021-06-02] MEDS: Denosumab 60 MG/ML SYR SC (12:54)
== END 2021-06-28 23:59 | disposition home or self-care (01) ==
LOC: INF 02:58
PROVIDERS: PCP Nurse Practitioner; Visit Provider Nurse Practitioner
DX: M81.0 Age-related osteoporosis without current pathological fracture (principal)
CPT/HCPCS: 96372; J0897

== ENCOUNTER 2021-06-21 03:05 | Outpatient (CLI) | payer MEDICARE, SELFPAY ==
--- NOTE | 2021-06-21 09:15 | DI.NM_ITS ---
APPROVED REPORT Exam: Pharmacologic Patient Location: Out-Patient Room/Bed: Stress Nurse: Kizzy Martins RN Ordering Provider:PATRICE CÁRDENAS, Contact Number: [phone] BMI: 31.10 Baseline Rhythm: Sinus Bradycardia Comment: 1 DHB Indications: Preop, AFib, CVA, hypertension, hyperlipidemia Medical History Medical History: Afib, CVA, LEWIS, hypertension, hyperlipidemia, COPD, hyperglycemia, obesity, anxiety and depression, falls, LEWIS, gerd Cardiac Medications: Omeprazole, metoprolol succinate, fluticasone, furoate-vilanterol inhaler, apixa ban, amlodipine, albuterol sulfate Allergies: Penicillins, sulfa Cardiac Risk Factors: Hypertension, hyperlipidemia, smoker (former), COPD Previous Cardiac Procedures: None Pretest Chest Pain Characteristics: None Exercise History: Sedentary Physical Disabilities: Balance and gait issues, hx falls Lung Sounds: Clear to auscultation Heart Sounds: Regular Stress Test Details Test: Pharmacologic stress was paired with low level exercise. Reason for pharmacologic stress test: physical limitation. Nuclear Acquisition: Rest Tc-99m/Stress Tc-99m 1 day Rest Isotope: Tc-99m Sestamibi. Dose: 10.4 Date: 06/21/2021 Injection Time: 0935 Stress Isotope: Tc-99m Sestamibi. Dose: 35.2 Date: 06/21/2021 Injection Time: 1130 HR Resting HR Supine: 55 bpm Max Heart Rate (APMHR): 138.311660 bpm Resting HR Standin bpm Target HR (85% APMHR): 117.264831 bpm Max HR Achieved: 86 bpm % of APMHR: 62.32 Recovery HR: 68 bpm HR response to stress: Abnormal HR response to stress Comment: Metoprolol succinate not held BP Resting BP Supine: 180/72 mmHg Resting BP Standin/68 mmHg Max BP: 180/72 mmHg Recovery BP: 140/72 mmHg ECG Resting ECG: Sinus Bradycardia, 1 DHB Ectopy: None Stress ECG: Sinus Rhythm, [address] Change: No significant ST segment changes noted Arrhythmia: None Recovery ECG: Sinus Rhythm, [address] Change: No significant ST segment changes noted Recovery Arrhythmia: None Clinical Stress Symptoms: General Fatigue, Dyspnea Exercise capacity: 1.00 METs Rate Pressure Product: [id number] Stress ECG Conclusion 1. Resting electrocardiogram showed poor R wave progression 2. Patient underwent pharmacologic stress with regadenoson 3. Peak heart rate was 62% of maximal predicted for age 4. Electrocardiographically the test was nondiagnostic due to inadequate heart rate 5. There were no significant dysrhythmias MPI Conclusion Suboptimal, nondiagnostic Radiologist Interpretation Radiologist agrees with Supervisor Rose Grading's Interpretation. Radiologist Interpretation by: Charline Young MD Interpretation Date/Time: 06/21/2021 15:45:56
[2021-06-21] MEDS: Regadenoson 0.4 MG/5 ML SYR IVP (12:02)
== END 2021-06-21 03:25 ==
PROVIDERS: PCP Nurse Practitioner; Visit Provider Thoracic Surgery (Cardiothoracic Vascular Surgery)
DX: I48.91 Unspecified atrial fibrillation (principal); Z01.818 Encounter for other preprocedural examination; Z86.73 Personal history of transient ischemic attack (TIA), and cerebral infarction without residual deficits; I10 Essential (primary) hypertension; E78.5 Hyperlipidemia, unspecified; J44.9 Chronic obstructive pulmonary disease, unspecified; Z87.891 Personal history of nicotine dependence; R94.31 Abnormal electrocardiogram [ECG] [EKG]
CPT/HCPCS: 78452; 93016; 93018; 93017; J2785

== ENCOUNTER 2021-07-21 13:22 | Outpatient (CLI) | payer MEDICARE, SELFPAY ==
--- NOTE | 2021-07-21 13:30 | RT.EKG_ITS ---
APPROVED REPORT Exam: Resting ECG Reason for Exam: afib Patient Location: O HR:62 bpm ECG Measurements Heart Rate 62 AXIS MT 252 P 32 QRSd 91 QRS -16 QT 444 T 46 QTc 451 Conclusion Sinus rhythm...normal P axis, V-rate 50- 99 Prolonged MT interval...MT >220, V-rate 50- 90
== END 2021-07-21 13:23 | disposition home or self-care (01) ==
LOC: DI.CARD 13:32
PROVIDERS: PCP Nurse Practitioner; Referring Provider Nurse Practitioner; Visit Provider Internal Medicine Cardiovascular Disease
DX: I48.0 Paroxysmal atrial fibrillation (principal); R06.00 Dyspnea, unspecified
CPT/HCPCS: 93010

== ENCOUNTER → 2021-07-21 13:22 | Outpatient (BNVA) | payer MEDICARE, SELFPAY | PROVIDERS: PCP Nurse Practitioner; Referring Provider Nurse Practitioner; Visit Provider Internal Medicine Cardiovascular Disease | DX: I48.0 Paroxysmal atrial fibrillation (principal); R06.00 Dyspnea, unspecified; Z86.73 Personal history of transient ischemic attack (TIA), and cerebral infarction without residual deficits; I10 Essential (primary) hypertension; Z01.810 Encounter for preprocedural cardiovascular examination; Z79.01 Long term (current) use of anticoagulants | CPT/HCPCS: 36415; 93005; 99204; 99214 ==

== ENCOUNTER 2021-07-21 16:00 | Outpatient (REF) | payer MEDICARE, SELFPAY ==
[2021-07-21 17:16] LABS: Anion Gap 8.1 mmol/L (3-11); BUN 27 mg/dL (7-18); CO2 28.9 mmol/L (21.0-32.0); CREATININE 1.2 mg/dL (0.55-1.02); Calcium 8.9 mg/dL (8.5-10.1); Chloride 106 mmol/L (98-107); Estimated GFR 43.01 (mL/min/1.73m2); Glucose 124 mg/dL (74-106); Potassium 3.8 mmol/L (3.5-5.1); Sodium 143 mmol/L (136-145)
== END 2021-07-21 16:01 | disposition home or self-care (01) ==
LOC: LBN 16:00
PROVIDERS: PCP Nurse Practitioner; Visit Provider Internal Medicine Cardiovascular Disease
DX: I10 Essential (primary) hypertension (principal); K44.9 Diaphragmatic hernia without obstruction or gangrene; I48.0 Paroxysmal atrial fibrillation
CPT/HCPCS: 80048

== ENCOUNTER 2021-12-08 02:30 | Outpatient (RCR) | payer MEDICARE, SELFPAY ==
[2021-12-08] MEDS: Denosumab 60 MG/ML SYR SC (13:16)
== END 2021-12-26 23:59 | disposition home or self-care (01) ==
LOC: INF 02:30
PROVIDERS: PCP Nurse Practitioner; Visit Provider Nurse Practitioner
DX: M81.0 Age-related osteoporosis without current pathological fracture (principal)
CPT/HCPCS: 96372; J0897

== ENCOUNTER 2022-03-30 11:10 | Emergency (ER) | payer MEDICARE, SELFPAY ==
[2022-03-30 11:17] VITALS: BP 156/101; PULSE 106; RESP 16; TEMP 36; O2SAT 95
--- NOTE | 2022-03-30 11:39 | ED.GENADUL_ITS ---
Discharge Plan Disposition Patient Disposition: HOME Condition: Improving Discharge Details Clinical Impression: Gastroesophageal reflux disease, Vomiting Primary Care Provider: Patricia Garza ED Provider: Víctor Zhang Home Meds and New Rx's Prescriptions: Continued amlodipine 10 mg tablet 10 mg PO DAILY Qty: 90 3RF betamethasone valerate 0.1 % cream 1 applic topical BID PRN (Reason: skin irritation) Qty: 45 0RF Breo Ellipta 200-25 mcg/dose blister with device 1 inh inhalation DAILY Trelegy Ellipta 100-62.5-25 mcg blister with device 1 inh inhalation DAILY Prolia 60 MG/1 ML syringe 60 mg SQ [id number] Label Comments: 07/09/13 per pt not due until next month, DCW calcium-vitamin D3-vitamin K 1 EACH tablet,chewable 1 ea PO DAILY Varicella-Zoster Ge/As01b/Pf [Shingrix Vial Kit] 50 MCG INJ 50 mcg IM ONCE Qty: 1 1RF acetaminophen 650 mg tablet extended release 650 mg PO Q6H PRN Qty: 60 albuterol sulfate 90 mcg/actuation aerosol powdr breath activated 2 inh IH Q6H PRN (Reason: shortness of breath or wheezing) Qty: 1 6RF Rx Instructions: Please dispense with spacer and instruct in use. Breo Ellipta 200-25 mcg/dose blister with device 1 inh IH DAILY Qty: 180 3RF citalopram 20 mg tablet 20 mg PO DAILY Qty: 90 3RF Eliquis 5 mg tablet 5 mg PO BID Qty: 60 12RF omeprazole 40 mg capsule,delayed release(DR/EC) 40 mg PO BID Qty: 180 3RF bupropion HCl [Wellbutrin XL] 150 mg tablet extended release 24 hr 150 mg PO QAM Qty: 90 3RF fenofibrate nanocrystallized 48 mg tablet See Rx Instructions .ROUTE .COMPLEX Qty: 90 3RF Dose Instruction: TAKE ONE TABLET BY MOUTH EVERY DAY Rx Instructions: TAKE ONE TABLET BY MOUTH EVERY DAY metoprolol succinate 50 mg tablet extended release 24 hr See Rx Instructions .ROUTE .COMPLEX Qty: 90 3RF Dose Instruction: TAKE ONE TABLET BY MOUTH EVERY DAY Rx Instructions: TAKE ONE TABLET BY MOUTH EVERY DAY Discharge Instructions Instructions: GERD (Gastroesophageal Reflux Disease) (ED) Additional Instructions: Hold your Eliquis for 2 doses as we discussed. Observe a bland diet. May use provided Zofran/ondansetron as needed for persistent nausea. Return if you have recurrent vomiting, bloody flecked emesis, or any other acute concerns. Please follow-up with your regular doctor as well as your hvac estimator. Medical Decision Making This is an 82-year-old female with a history of gastritis, hiatal hernia status postrepair, atrial fibrillation for which she is anticoagulated. She states that she has had frequent episodes of emesis over years time followed by GI at [facility]. She had a gastric emptying nuclear medicine study yesterday as part of her outpatient work-up which was negative. She went home and developed recurrent emesis that was dark and bloody at times. Patient arrives to ER pulse proxy 100, she is afebrile and well-appearing. She is in no distress and has no abdominal tenderness on exam. Patient IV access established, screening labs obtained and she is given Protonix, antiemetic and fluids. Laboratories note a white count of 7, hematocrit is 44.9, platelets 321. INR slightly elevated at 1.2, chemistries show normal electrolytes, BUN of 30 and creatinine of 1.1. Patient is improved and has no further episodes of emesis. Discussed with her that given her long and chronic history of emesis I do feel this is exacerbation of the same. We will have her hold her Eliquis for 2 doses. Will discharge with Zofran. She understands strict return precautions to the ER including ongoing emesis or recurrent blood flecked emesis. She is stable at this time and appropriate for trial of outpatient management. [facility] General Mode of arrival: ambulatory . Date/Time Provider Initiated Documentation: 03/30/22 11:17 . Limitations to Documentation: no limitations . Information obtained by: patient . History of Present Illness 82 year old F presents to the emergency department with the chief complaint of Emesis with dark material and bloody at times, described as similar to prior episodes, and is localized to the abdomen. Patient reports no radiation. Patient started experiencing this hour(s) and it has been constant. No relieving factors improve symptom(s), No exacerbating factors reported . Patient did receive the following treatments prior to arrival, none Related Data Home Medications Medication Instructions Recorded Confirmed calcium-vitamin D3-vitamin K 500 1 ea PO DAILY 11/16/16 03/30/22 mg-1,000 unit-40 mcg chewable tablet denosumab 60 mg/mL subcutaneous 60 mg SQ [id number] 11/16/16 03/21/22 syringe (Prolia) acetaminophen 650 mg 650 mg PO Q6H PRN #60 tab-caps 10/16/19 03/30/22 tablet,extended release amlodipine 10 mg tablet 10 mg PO DAILY #90 tabs 10/06/20 03/30/22 albuterol sulfate 90 mcg/actuation 2 inh inhalation Q6H PRN shortness 01/17/21 03/30/22 breath activated powder inhaler of breath or wheezing #1 ea fluticasone fur. 100 mcg-umeclid 1 inh inhalation DAILY 07/21/21 03/30/22 62.5 mcg-vilant 25 mcg inhalat.powder (Trelegy Ellipta) fluticasone furoate 200 1 inh inhalation DAILY 07/21/21 03/30/22 mcg-vilanterol 25 mcg/dose inhalation powder (Breo Ellipta) fluticasone furoate 200 1 inh inhalation DAILY #180 ea 07/27/21 03/30/22 mcg-vilanterol 25 mcg/dose inhalation powder (Breo Ellipta) betamethasone valerate 0.1 % 1 applic topical BID PRN skin 09/15/21 03/21/22 topical cream irritation #45 grams citalopram 20 mg tablet 20 mg PO DAILY #90 tab-caps 10/24/21 03/30/22 apixaban 5 mg tablet (Eliquis) 5 mg PO BID #60 tabs 11/08/21 03/30/22 omeprazole 40 mg capsule,delayed 40 mg PO BID #180 tab-caps 12/19/21 03/30/22 release bupropion HCl 150 mg 24 hr tablet, 150 mg PO QAM #90 tabs 01/03/22 03/30/22 extended release (Wellbutrin XL) fenofibrate nanocrystallized 48 mg See Rx Instructions .Route 03/06/22 03/30/22 tablet .COMPLEX #90 tabs metoprolol succinate 50 mg See Rx Instructions .Route 03/06/22 03/30/22 tablet,extended release 24 hr .COMPLEX #90 tabs Previous Rx's Medication Instructions Recorded amlodipine 10 mg tablet 10 mg PO DAILY #90 tabs 12/09/20 albuterol sulfate 90 mcg/actuation 2 inh inhalation Q6H PRN shortness 01/17/21 breath activated powder inhaler of breath or wheezing #1 ea fluticasone furoate 200 1 inh inhalation DAILY #180 ea 07/27/21 mcg-vilanterol 25 mcg/dose inhalation powder (Breo Ellipta) betamethasone valerate 0.1 % 1 applic topical BID PRN skin 09/15/21 topical cream irritation #45 grams citalopram 20 mg tablet 20 mg PO DAILY #90 tab-caps 10/24/21 apixaban 5 mg tablet (Eliquis) 5 mg PO BID #60 tabs 11/08/21 omeprazole 40 mg capsule,delayed 40 mg PO BID #180 tab-caps 12/19/21 release bupropion HCl 150 mg 24 hr tablet, 150 mg PO QAM #90 tabs 01/03/22 extended release (Wellbutrin XL) fenofibrate nanocrystallized 48 mg See Rx Instructions .Route 03/06/22 tablet .COMPLEX #90 tabs metoprolol succinate 50 mg See Rx Instructions .Route 03/06/22 tablet,extended release 24 hr .COMPLEX #90 tabs Allergies Allergy/AdvReac Type Severity Reaction Status Date / Time Penicillins Allergy Unknown Swelling/Ed Verified 03/30/22 11:21 bobo/Itching Sulfa (Sulfonamide AdvReac Unknown GI symptoms Verified 03/30/22 11:21 Antibiotics) General Stated Complaint: Nausea/Vomit/Diar HAILEE: 3 Review of Systems Narrative: 6 systems reviewed. no cp, no difficulty breathing. Similar to previous in the past she is followed by GI at [facility]. [facility] All Active Problems (Updated 03/30/22 @ 13:28 by Víctor Zhang MD) Vomiting (Acute) Regurgitation and rechewing (Acute ~10/2021) 12/13/21 [facility] [place] GI, gastric emptying scan ordered and consult with Cycling Instructor S/P repair of paraesophageal hernia (Acute 08/15/21) [facility] Thoracic Preoperative cardiovascular examination (Acute) Lung nodule < 6cm on CT (Acute) LEWIS (dyspnea on exertion) (Acute) Paraesophageal hernia (Acute) Urinary incontinence (Acute) Vomiting (Acute) Fall (Acute) Rib pain on left side (Acute) Left shoulder pain (Acute) Iliotibial band syndrome of right side (Acute) Status post total right knee replacement (Acute 11/20/11) Anxiety and depression (Chronic 09/05/17) Anticoagulant long-term use (Acute) Cough (Acute) Wheeze (Acute) Hiatal hernia (Chronic) Adjustment disorder, unspecified (Acute 11/16/16) Atrial fibrillation (Chronic 01/22/18) Essential hypertension (Acute 04/28/16) Gastroesophageal reflux disease (Chronic 04/28/16) Due to Hiatial Hernia History of CVA (cerebrovascular accident) (Acute 10/24/15) Dry Stroke, 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 per Dr. Addison Shore 04/25/2016 Surgical History Cholecystectomy (01/10/18) Extraction of cataract H/O endoscopy (10/24/21) Open Carpal Tunnel release right total knee arthroplkasty (07/11/17) left knee arthroplasty Family History Mother Stroke Father Neoplasm Grandmother , CVA No problems noted. Brother Diabetes Brother Diabetes Brother Diabetes Brother Diabetes Brother Diabetes Brother Diabetes Social History Smoking/Tobacco Use Status: Former Tobacco Use Tobacco: How many years used: 25 Smoking risk assessment performed?: Yes Alcohol Intake: never Drug use: Never Substance use type: does not use Household members: none Number of Children: 4 Current gender identity: female What type of physical activity do you participate in: none Do you feel safe at home: Yes Do you feel safe in your relationship?: Yes Exam Narrative Exam Narrative: GEN: awake, alert, oriented 3. Pleasant, well groomed, interactive. HEAD: Normocephalic, atraumatic ENT: Mucous membranes dry, oropharynx unremarkable, External ear exam unremarkable EYES: PERRL, EOMI NECK: Full ROM, no MAVERICK, no menigismus CHEST/RESP: Nontender, clear to auscultation bilateral, no wheeze/rhonchi/rales CARDIOVASCULAR: Irregularly irregular, no murmur, rub remy. 2+ Rad pulse bilateral ABDOMEN: Soft, nontender, no mass. +Bowel sounds EXT: Full ROM, no edema, no rash Neuro: Grossly normal neurologic exam, conversant, interactive. Psych: Speech fluent, thoughts congruent, affect normal Course Vital Signs Vital signs: Vital Signs Temperature 36 C L 03/30/22 11:17 Pulse 106 H 03/30/22 11:17 Respiratory Rate 16 03/30/22 11:17 Blood Pressure 156/101 H 03/30/22 11:17 Pulse Oximetry 95 03/30/22 11:17 Temperature 36 C L 03/30/22 11:17 Temperature Source Temporal Artery Scan 03/30/22 11:17 Pulse 106 H 03/30/22 11:17 Respiratory Rate 16 03/30/22 11:17 Respiratory Effort 03/30/22 11:20 Blood Pressure 156/101 H 03/30/22 11:17 Blood Pressure Position Sitting 03/30/22 11:17 Pulse Oximetry 95 03/30/22 11:17 Oxygen Delivery Method Room Air 03/30/22 11:17 Oxygen Flow Rate 0 03/30/22 11:17 Pain Level 0 03/30/22 11:17
[2022-03-30] MEDS: Normal Saline 1,000 ML 150 ML IV (12:00)
[2022-03-30 12:03] LABS: Abs Immature Grans 0.04 10^3/uL (0.0-0.06); Absolute Basophil Count 0.05 10^3/uL (0.0-0.2); Absolute Eosinophil Count 0.13 10^3/uL (0.0-0.7); Absolute Lymphocyte Count 1.22 10^3/uL (1.2-3.4); Absolute Monocyte Count 0.61 10^3/uL (0.1-0.8); Absolute Neutrophil Count 5.23 10^3/uL (1.2-6.7); Basophils % 0.7; Eosinophils % 1.8; HCT 44.9 % (36.0-46.0); HGB 14.8 g/dL (11.2-15.7); Immature Grans % 0.5; Lymphocytes % 16.8; MCH 30.3 pg (27.0-33.0); MCV 92 fL (80-95); MPV 9.2 fL (8.0-11.0); Monocytes % 8.4; Neutrophils % 71.8; Platelet Count 321 10^3/uL (130-400); RBC 4.89 10^6/uL (3.93-5.22); RDW 13.5 % (11.7-14.6); RDW-SD 45.5 fL; WBC 7.28 10^3/uL (4.4-10.8)
[2022-03-30] MEDS: Ondansetron 4 MG/2 ML VIAL IVP (12:07)
[2022-03-30] MEDS: Pantoprazole 40 MG VIAL IVP (12:08)
[2022-03-30 12:16] LABS: ALT 16 U/L (14-59); AST 12 U/L (15-37); Alkaline Phosphatase 69 U/L (46-116); Anion Gap 8.5 mmol/L (3-11); BUN 30 mg/dL (7-18); Bilirubin, Total 0.4 mg/dL (0.2-1.0); CO2 30.5 mmol/L (21.0-32.0); CREATININE 1.1 mg/dL (0.55-1.02); Calcium 9.7 mg/dL (8.5-10.1); Chloride 103 mmol/L (98-107); Estimated GFR 47.43 (mL/min/1.73m2); Glucose 96 mg/dL (74-106); Potassium 3.8 mmol/L (3.5-5.1); Sodium 142 mmol/L (136-145); Total Protein 7.3 g/dL (6.4-8.2)
[2022-03-30 12:21] LABS: INR 1.2 (0.9-1.1); PTT Activated 26.1 sec (21.0-27.5); Prothrombin Time 11.7 sec (9.3-11.0)
== END 2022-03-30 13:34 | disposition home or self-care (01) ==
PROVIDERS: Emergency Provider Emergency Medicine; PCP Nurse Practitioner
DX: K21.9 Gastro-esophageal reflux disease without esophagitis (principal); K92.0 Hematemesis; I48.91 Unspecified atrial fibrillation; Z79.01 Long term (current) use of anticoagulants
CPT/HCPCS: 36415; 80053; 86850; 86900; 86901; 96374; 96375; 99284; 85025; 85610; 85730; 99283; J2405

== ENCOUNTER 2022-06-12 10:00 | Outpatient (RCR) | payer MEDICARE, SELFPAY ==
[2022-06-12] MEDS: Denosumab 60 MG/ML SYR SC (09:59)
== END 2022-06-28 23:59 | disposition home or self-care (01) ==
LOC: INF 10:00
PROVIDERS: PCP Nurse Practitioner; Visit Provider Nurse Practitioner
DX: M81.0 Age-related osteoporosis without current pathological fracture (principal)
CPT/HCPCS: 96372; J0897

== ENCOUNTER 2022-07-21 10:01 | Outpatient (CLI) | payer MEDICARE, SELFPAY ==
--- NOTE | 2022-07-21 09:15 | DI.RAD_ITS ---
Exam(s) XR KNEE RT 3V AP,LAT,FERCHO EXAM: XR KNEE RT 3V AP,LAT,FERCHO CLINICAL HISTORY: pain. TECHNIQUE: 2D digital imaging was performed. Three views. COMPARISON: CR LEFT KNEE LIMITED 1 OR 2 VIEWS from 07/11/2017 CR XR KNEE RT 2V AP,LAT from 05/12/2020 FINDINGS: There has been no change in the total knee prosthesis. No abnormal bony lucencies are seen. There i s been no change in the positioning of the patella. No joint effusion is visible. IMPRESSION: No acute abnormality. Stable appearance of total knee prosthesis. DATA REPOSITORY: RADIATION DOSE DELIVERED:
== END 2022-07-21 10:02 | disposition home or self-care (01) ==
LOC: DIORS 10:02
PROVIDERS: PCP Nurse Practitioner; Referring Provider Nurse Practitioner; Visit Provider Physician Assistant Surgical
DX: Z96.651 Presence of right artificial knee joint (principal); T84.84XA Pain due to internal orthopedic prosthetic devices, implants and grafts, initial encounter
CPT/HCPCS: 73562; 99214

== ENCOUNTER → 2022-08-02 01:38 | Outpatient (CLI) | payer MEDICARE, SELFPAY ==
--- NOTE | 2022-08-02 07:30 | DI.CT_ITS ---
Exam(s) CT LOWER EXTREMITY RT WO EXAM: CT LOWER EXTREMITY RT WO CLINICAL HISTORY: SURGICAL PLANNING,painful total knee [id number]. TECHNIQUE: Imaging Protocol: Axial computed tomography images with coronal and sagittal reformatted images were created and reviewed. COMPARISON: CR XR KNEE RT 3V AP,LAT,FERCHO from 07/21/2022 FINDINGS: Bones: Bones appear osteoporotic. There is a total knee prosthesis creating mild artifact. This par tially obscures visualization of the patella. No abnormal surrounding lucencies are seen. There is no evidence of fracture or dislocation. Knee alignment is satisfactory. No cellulitic or osteomyelit ic changes are identified. No lytic or sclerotic lesions are identified. Soft Tissues: Normal. IMPRESSION: Right total knee prosthesis. No evidence of loosening. RADIATION DOSE DELIVERED: 313.75mGy.cm Total DLP 313.75mGy.cm Total DLP DATA REPOSITORY: All CT scans at this facility are submitted to the National Radiology Data Registry (NRDR) Dose Index Registry (DIR) with the [employer] (A[employer]). RADIATION OPTIMIZATION: All CT scans at this facility use at least one of these dose optimization te chniques: automated exposure control; mA and/or kV adjustment per patient size (includes targeted exa ms where dose is matched to clinical indication); or iterative reconstruction.
--- NOTE | 2022-08-02 07:30 | DI.NM_ITS ---
Exam(s) NM BONE SCAN 3 PHASE EXAM: NM BONE SCAN 3 PHASE CLINICAL HISTORY: painful total knee replacement, ? LOOSENING,[id number],[id number]. TECHNIQUE: Injected Dose: 25 mCi Tc-99m MDP flow images, medius static images and delayed images at 3.5 hours were performed of the knees. Whole body images were also performed. COMPARISON: CR XR CHEST 2V PA LATERAL from 03/07/2021 CT,NM,TMT NM MPI REST STRESS GRP from 06/21/2021 CR XR KNEE RT 3V AP,LAT,FERCHO from 07/21/2022 FINDINGS: Perfusion: Symmetric. Blood Pool: Symmetric. Photopenic areas are noted in both knees related to bilateral knee prosthese s. Delayed: There is mildly increased activity around both knee prostheses. There are no findings to duvall ggest loosening. There is increased activity seen in the right hip, at the superior acetabulum, like ly reflecting degenerative changes. There is also increased activity in the left shoulder also likely are related to degenerative changes. Increased activity is also noted in several upper to mid left anterior ribs as well as the mid to lower thoracic spine. Degenerative changes and a T12 compression fracture is noted on prior chest x-ray. Left rib fractures are noted as well.. IMPRESSION: 1. No significant increased activity around the right prosthesis. Increased activity in other sites a s mentioned above consistent with degenerative changes as well as left rib fractures. DATA REPOSITORY:
[2022-08-02 13:46] LABS: ESR 8 mm/hr (0-30)
[2022-08-02 13:57] LABS: C-Reactive Protein 0.89 mg/dL (0.0-0.3)
== END ==
PROVIDERS: PCP Nurse Practitioner; Visit Provider Student in an Organized Health Care Education/Training Program
DX: T84.84XA Pain due to internal orthopedic prosthetic devices, implants and grafts, initial encounter (principal); Z96.651 Presence of right artificial knee joint; M16.11 Unilateral primary osteoarthritis, right hip; M48.54XA Collapsed vertebra, not elsewhere classified, thoracic region, initial encounter for fracture
CPT/HCPCS: 85652; 73700; 78315; 86140

== ENCOUNTER 2022-08-24 09:02 | Outpatient (CLI) | payer MEDICARE, SELFPAY ==
--- NOTE | 2022-08-24 09:00 | RT.EKG_ITS ---
APPROVED REPORT Exam: Resting ECG Reason for Exam: pre op exam Patient Location: O HR:59 bpm ECG Measurements Heart Rate 59 AXIS ME [id number] P [id number] QRSd 95 QRS 6 QT 456 T 38 QTc 452 Conclusion Sinus rhythm Baseline artifact Normal EKG
== END 2022-08-24 09:03 | disposition home or self-care (01) ==
LOC: DI.KIM 09:04
PROVIDERS: PCP Nurse Practitioner; Visit Provider Nurse Practitioner
DX: Z01.818 Encounter for other preprocedural examination (principal)
CPT/HCPCS: 93010

== ENCOUNTER → 2022-08-28 14:32 | Outpatient (BNVA) | payer MEDICARE, SELFPAY | PROVIDERS: PCP Nurse Practitioner; Referring Provider Nurse Practitioner; Visit Provider Student in an Organized Health Care Education/Training Program | DX: T84.84XA Pain due to internal orthopedic prosthetic devices, implants and grafts, initial encounter (principal); Z96.651 Presence of right artificial knee joint | CPT/HCPCS: 20610 ==

== ENCOUNTER 2022-08-28 18:21 | Outpatient (REF) | payer MEDICARE, SELFPAY | END 2022-08-28 18:22 | disposition home or self-care (01) | LOC: LBN 18:21 | PROVIDERS: PCP Nurse Practitioner; Visit Provider Student in an Organized Health Care Education/Training Program | DX: T84.84XA Pain due to internal orthopedic prosthetic devices, implants and grafts, initial encounter (principal); Z96.651 Presence of right artificial knee joint | CPT/HCPCS: 87070; 87205 ==

== ENCOUNTER 2022-09-06 07:33 | Day surgery (SDC) | payer MEDICARE, SELFPAY ==
[2022-09-06] VITALS (11 sets, daily range): BP systolic 141–197; BP diastolic 63–134; PULSE 55–63; RESP 14–19; TEMP 36–36.4; O2SAT 63–97; BMI 28.9
--- NOTE | 2022-09-06 07:24 | DSE_ITS ---
Date of service: 09/06/22 Time of Service: 14:22 DS: Diagnosis Discharge Diagnosis (1) Painful total knee replacement, right: Status: Acute Discharge Plan Disposition Patient Disposition: HOME Condition: Good Discharge Details Reason For Visit: Revision right patella from painful right TKA Attending Provider: Alex Dixon Primary Care Provider: Patricia Garza Home Meds and New Rx's Prescriptions: New acetaminophen 500 mg tablet 500 mg PO Q6H PRN (Reason: pain) Qty: 60 2RF celecoxib [Celebrex] 200 mg capsule 200 mg PO BID Qty: 30 0RF docusate sodium [Colace] 100 mg capsule 100 mg PO BID Qty: 30 0RF gabapentin 300 mg capsule 300 mg PO QHS Qty: 14 0RF Rx Instructions: Take one tablet at bedtime oxycodone 5 mg tablet 5 mg PO Q4H PRN (Reason: severe post-operative pain) Qty: 18 0RF Rx Instructions: Take one tablet up to every 4 hours as needed for severe pain Continued apixaban 2.5 mg tablet 2.5 mg PO BID Qty: 180 3RF fluticasone furoate-vilanterol [Breo Ellipta] 200-25 mcg/dose blister with device 1 inh inhalation DAILY Trelegy Ellipta 100-62.5-25 mcg blister with device 1 inh inhalation DAILY Prolia 60 MG/1 ML syringe 60 mg SQ [id number] Label Comments: 07/09/13 per pt not due until next month, DCW calcium-vitamin D3-vitamin K 1 EACH tablet,chewable 1 ea PO DAILY Varicella-Zoster Ge/As01b/Pf [Shingrix Vial Kit] 50 MCG INJ 50 mcg IM ONCE Qty: 1 1RF fluticasone furoate-vilanterol [Breo Ellipta] 200-25 mcg/dose blister with device 1 inh IH DAILY Qty: 180 3RF citalopram 20 mg tablet 20 mg PO DAILY Qty: 90 3RF omeprazole 40 mg capsule,delayed release(DR/EC) 40 mg PO BID Qty: 180 3RF bupropion HCl [Wellbutrin XL] 150 mg tablet extended release 24 hr 150 mg PO QAM Qty: 90 3RF fenofibrate nanocrystallized 48 mg tablet See Rx Instructions .ROUTE .COMPLEX Qty: 90 3RF Dose Instruction: TAKE ONE TABLET BY MOUTH EVERY DAY Rx Instructions: TAKE ONE TABLET BY MOUTH EVERY DAY metoprolol succinate 50 mg tablet extended release 24 hr See Rx Instructions .ROUTE .COMPLEX Qty: 90 3RF Dose Instruction: TAKE ONE TABLET BY MOUTH EVERY DAY Rx Instructions: TAKE ONE TABLET BY MOUTH EVERY DAY albuterol sulfate [Ventolin HFA] 90 mcg/actuation HFA aerosol inhaler 2 puff inhalation Q6H PRN (Reason: shortness of breath or wheezing) Qty: 8.5 6RF prochlorperazine maleate 10 mg tablet See Rx Instructions .ROUTE .COMPLEX Qty: 30 1RF Dose Instruction: TAKE 1/2 TO 1 TABLET BY MOUTH TWICE DAILY NEEDED FOR NAUSEA AND VOMITING Rx Instructions: TAKE 1/2 TO 1 TABLET BY MOUTH TWICE DAILY NEEDED FOR NAUSEA AND VOMITING Discontinued acetaminophen 650 mg tablet extended release 650 mg PO Q6H PRN Qty: 60 Discharge Instructions Additional Instructions: Revision Patella Discharge Instructions Activity: The most important activity is to walk and to work on gentle motion (both flexion and extension). You should try to take short walks a few times a day. It is important that when resting you work on keeping the knee straight. Avoid putting a pillow behind the knee as this will encourage flexion. Work on range of motion exercises as provided by Physical Therapy. - Start outpatient physical therapy within 2 weeks. - You should wear the GLENN hose on both legs for 2 weeks. You may remove these at night. You may also use any compression sock in place of the GLENN hose. - Utilize [employer] to review exercises, see videos on exercises and obtain basic information pertaining to your surgery and your recovery. Dressing: Remove the Haris wrap by 2 days after your surgery and put on the GLENN stocking given to you from the hospital. Keep the surgical dressing (underneath the HARIS wrap) in place for at least one week. This dressing has a battery pack attached to it to supply suction. If you have any questions about this, just call the office to discuss. After the first week it may be removed and replaced with light gauze and tape or nothing. The wound and dressing may get wet after 3 days but avoid soaking the dressing or otherwise it will need to be changed. Many people prefer covering the dressing with cling wrap (saran wrap) to minimize it from getting soaked. If it gets wet, just pat dry. If it starts to peel off then it will need to be changed. Medications: - You should take Tylenol and anti-inflammatory Celebrex as your primary pain control medications. If the Celebrex is too expensive or not covered, please call the office for another alternative (Advil/Ibuprofen or Naproxen/Aleve) - You have been prescribed a stronger pain medication Oxycodone for breakthrough pain, take as needed as prescribed. - You take a stomach acid reduction agent Omeprazole at baseline - continue with this medication to help reduce stomach acid and reflux. - You have been prescribed Gabapentin to take at night for restlessness and nerve pain. - You will be continue to take your baseline Apixaban for DVT prevention unless instructed otherwise. - If you have constipation you should take Colace (which has been prescribed) or Miralax (which is available for purchase [id number]). It takes most people 3-4 days to have a bowel movement. Follow-up: 2 weeks If you have any acute concerns or questions, please do not hesitate to contact the office at [phone]. You may contact Dr. Dixon with any questions after hours through the hospital at [phone] or on his cell phone at [phone]. Referrals: Alex Dixon MD [ [facility] STAFF PHYSICIAN] - Equipment/Supplies: Walker Activity:: Elevate Remove Dressings/Wound Care:: Do Not Remove Shower/Bathe:: Cover Diet:: As Tolerated Discharge Orders Discharge Orders: Discharge Order (Routine); Ordered 09/06/22 Ordered By: Alex Dixon DS: Summary Time Spent with Patient providing and/or coordinating discharge services: Less than 30 minutes Status at Discharge Functional status at discharge: uses cane/walker Overall status at discharge: patient is progressing back to baseline Mental Status: mental status grossly normal Speech and Movement: speech and movement normal Mood: congruent mood Affect: normal affect Exam Psych Mental Status: mental status grossly normal Speech and Movement: speech and movement normal Mood: congruent mood Affect: normal affect DS: Data Vitals/I&O Vitals and I&O: Intake & Output 09/05/22 09/05/22 09/06/22 11:59 23:59 11:59 Weight 141 lb 15.643 oz PFSH All Active Problems Painful total knee replacement, right (Acute) Status post right knee replacement (Acute) Regurgitation and rechewing (Acute ~10/2021) 12/13/21 [facility] [place] GI, gastric emptying scan ordered and consult with Gis Software Developer Lung nodule < 6cm on CT (Acute) LEWIS (dyspnea on exertion) (Acute) Paraesophageal hernia (Acute) Urinary incontinence (Acute) Vomiting (Acute) Fall (Acute) Rib pain on left side (Acute) Left shoulder pain (Acute) Iliotibial band syndrome of right side (Acute) Status post total right knee replacement (Acute 11/20/11) Anxiety and depression (Chronic 09/05/17) Anticoagulant long-term use (Acute) Cough (Acute) Wheeze (Acute) Hiatal hernia (Chronic) Adjustment disorder, unspecified (Acute 11/16/16) Atrial fibrillation (Chronic 01/22/18) Essential hypertension (Acute 04/28/16) Gastroesophageal reflux disease (Chronic 04/28/16) Due to Hiatial Hernia History of CVA (cerebrovascular accident) (Acute 10/24/15) Dry Stroke, 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) History of gallstones (Acute 04/28/16) Hyperlipidemia (Acute 04/28/16) Osteoporosis (Chronic 02/13/17) left hip T SCORE -3.3 Prolia inj q6m, first 01/2017, 02/25/21 Total T-Score: - 2.5 Hyperglycemia (Acute) Hypokalemia (Acute) Medical History Actinic keratosis [place] angioma Closed extra-articular fracture of distal end of right radius (01/31/17) Dehydration Episode of recurrent major depressive disorder (10/17/16) Gastroenteritis Hx of atrial fibrillation, no current medication (04/25/16) Pt was seen by a court interpreter and was put on Metoprolol but mdication was stopped due to bradycardia. per Dr. Addison Shore 04/25/2016 Keratoacanthoma (~05/2022) [facility] D[facility] (Left trunk) Seborrheic keratoses Surgical History Cholecystectomy (01/10/18) Extraction of cataract H/O endoscopy (10/24/21) Open Carpal Tunnel release right S/P repair of paraesophageal hernia (08/15/21) [facility] [place] Thoracic total knee arthroplkasty (07/11/17) left knee arthroplasty Family History Mother Stroke Father Neoplasm Grandmother , CVA No problems noted. Brother Diabetes Brother Diabetes Brother Diabetes Brother Diabetes Brother Diabetes Brother Diabetes Social History Smoking/Tobacco Use Status: Former Tobacco Use Tobacco: How many years used: 25 Smoking risk assessment performed?: Yes Alcohol Intake: never Drug use: Never Substance use type: does not use Household members: none Number of Children: 4 Current gender identity: female What type of physical activity do you participate in: none Do you feel safe at home: Yes
[2022-09-06] MEDS: Gabapentin 300 MG CAP PO (08:15)
[2022-09-06] MEDS: Celecoxib 200 MG CAP 400 MG PO (08:15)
[2022-09-06] MEDS: Acetaminophen 500 MG TAB 1000 MG PO ×2 (08:15→13:48)
--- NOTE | 2022-09-06 08:36 | ANES.PREOP_ITS ---
General Info Date of Service Date Performed: 09/06/22 Height: 4 ft 11 in Weight: 65 kg Body Mass Index (BMI): 28.9 Surgical Procedure: Operation Date: 09/06/22 10:10 Proposed Procedure Side Surgeon p Knee Revision Patella Component Right Alex Dixon MD Meds Allergies and Home Medications Allergies Allergy/AdvReac Type Severity Reaction Status Date / Time Penicillins Allergy Unknown Swelling/Ed Verified 09/06/22 08:05 bobo/Itching Sulfa (Sulfonamide AdvReac Unknown GI symptoms Verified 09/06/22 08:05 Antibiotics) Home Medication Medication Instructions Recorded calcium-vitamin D3-vitamin K 500 1 ea PO DAILY 11/16/16 mg-1,000 unit-40 mcg chewable tablet denosumab 60 mg/mL subcutaneous 60 mg SQ [id number] 11/16/16 syringe (Prolia) fluticasone fur. 100 mcg-umeclid 1 inh inhalation DAILY 07/21/21 62.5 mcg-vilant 25 mcg inhalat.powder (Trelegy Ellipta) fluticasone furoate 200 1 inh inhalation DAILY 07/21/21 mcg-vilanterol 25 mcg/dose inhalation powder (Breo Ellipta) fluticasone furoate 200 1 inh inhalation DAILY #180 ea 07/27/21 mcg-vilanterol 25 mcg/dose inhalation powder (Breo Ellipta) citalopram 20 mg tablet 20 mg PO DAILY #90 tab-caps 10/24/21 omeprazole 40 mg capsule,delayed 40 mg PO BID #180 tab-caps 12/19/21 release bupropion HCl 150 mg 24 hr tablet, 150 mg PO QAM #90 tabs 01/03/22 extended release (Wellbutrin XL) fenofibrate nanocrystallized 48 mg See Rx Instructions .Route 03/06/22 tablet .COMPLEX #90 tabs metoprolol succinate 50 mg See Rx Instructions .Route 03/06/22 tablet,extended release 24 hr .COMPLEX #90 tabs albuterol sulfate 90 mcg/actuation 2 puff inhalation Q6H PRN 06/06/22 aerosol inhaler (Ventolin HFA) shortness of breath or wheezing #8.5 grams prochlorperazine maleate 10 mg See Rx Instructions .Route 08/03/22 tablet .COMPLEX #30 tabs apixaban 2.5 mg tablet 2.5 mg PO BID #180 tabs 08/24/22 acetaminophen 500 mg tablet 500 mg PO Q6H PRN pain #60 tabs 09/06/22 celecoxib 200 mg capsule (Celebrex) 200 mg PO BID #30 caps 09/06/22 docusate sodium 100 mg capsule 100 mg PO BID #30 caps 09/06/22 (Colace) gabapentin 300 mg capsule 300 mg PO QHS #14 caps 09/06/22 oxycodone 5 mg tablet 5 mg PO Q4H PRN severe 09/06/22 post-operative pain #18 tabs Current Visit Medications: Current Medications Generic Name Dose Route Start Last Admin Trade Name Freq PRN Reason Stop Dose Admin Acetaminophen 1,000 mg 09/06/22 06:00 09/06/22 08:15 Acetaminophen 500 Mg Tab PO 09/06/22 16:00 1,000 mg PREOP MICHAEL Administration Acetaminophen 1,000 mg 09/06/22 14:00 Acetaminophen 500 Mg Tab PO TID MICHAEL Celecoxib 400 mg 09/06/22 06:00 09/06/22 08:15 Celecoxib 200 Mg Cap PO 09/06/22 16:00 400 mg PREOP MICHAEL Administration Celecoxib 200 mg 09/06/22 20:00 Celecoxib 200 Mg Cap PO BID MICHAEL Docusate Sodium 100 mg 09/06/22 07:21 Docusate Sodium 100 Mg Cap PO BID PRN PRN Constipation Gabapentin 300 mg 09/06/22 07:17 09/06/22 08:15 Gabapentin 300 Mg Cap PO 09/06/22 16:00 300 mg PREOP MICHAEL Administration Gabapentin 300 mg 09/06/22 22:00 Gabapentin 300 Mg Cap PO HS MICHAEL Hydromorphone HCl 0.5 mg 09/06/22 07:21 Hydromorphone 2 Mg/Ml Syr IVP Q2H PRN PRN Tranexamic Acid 1,000 mg/ 60 mls @ 360 mls/hr 09/06/22 06:00 Sodium Chloride IV 09/06/22 16:00 PREOP MICHAEL Ringer's Solution 1,000 mls @ 80 mls/hr 09/06/22 06:00 IV 10/05/22 23:59 INFUSION MICHAEL Cefazolin Sodium/Dextrose 2 gm in 50 mls @ 100 mls/hr 09/06/22 06:00 Ancef Duplex IVPB 10/05/22 23:59 PREOP MICHAEL Cefazolin Sodium/Dextrose 1 gm in 50 mls @ 100 mls/hr 09/06/22 08:00 Ancef Duplex IVPB 09/07/22 00:29 Q8H [facility] IV Miscellaneous Supplies 1 each 09/06/22 06:00 Iv Access IV 10/05/22 23:59 DIRECTED MICHAEL Oxycodone HCl 0 mg 09/06/22 07:21 Oxycodone 5 Mg Tab PO Q3H PRN PRN Pain Pantoprazole Sodium 40 mg 09/07/22 07:30 Pantoprazole 40 Mg Tabcr PO DAILY@0730 MICHAEL Polyethylene Glycol 17 gm 09/06/22 07:21 Polyethylene Glycol 3350 17 Gm Packet PO BID PRN PRN Constipation Sodium Chloride 0 ml 09/06/22 06:00 Normal Saline Flush 10 Ml Syr IV 10/05/22 23:59 PRN PRN Sodium Chloride 0 ml 09/06/22 06:00 Normal Saline 10 Ml Vial IJ 10/05/22 23:59 DIRECTED PRN Sterile Water 0 ml 09/06/22 06:00 Water,Injection,Sterile 10 Ml Vial IJ 10/05/22 23:59 DIRECTED PRN PFSH Active Problems Active Problems: Problem Status Onset Code Painful total knee replacement, right T84.84XA, Z96.651 Status post right knee replacement Z96.651 Regurgitation and rechewing ~10/2021 R11.10 Lung nodule < 6cm on CT R91.1 LEWIS (dyspnea on exertion) R06.00 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19 Hyperlipidemia 04/28/16 E78.5 Osteoporosis 02/13/17 M81.0 Hyperglycemia R73.9 Hypokalemia E87.6 Medical History Medical History Actinic keratosis [place] angioma Closed extra-articular fracture of distal end of right radius (01/31/17) Dehydration Episode of recurrent major depressive disorder (10/17/16) Gastroenteritis Hx of atrial fibrillation, no current medication (04/25/16) Pt was seen by a gas fitter and was put on Metoprolol but mdication was stopped due to bradycardia. per Dr. Addison Shore 04/25/2016 Keratoacanthoma (~05/2022) [facility] Derm (Left trunk) Seborrheic keratoses Medical History Comments:: Last knee surgery, anesthesia or pain meds made her loopy, people are trying to kill me. Has bilat intraoccular lenses from cataracts; endentulous Surgical History Surgical History Cholecystectomy (01/10/18) Extraction of cataract H/O endoscopy (10/24/21) Open Carpal Tunnel release right S/P repair of paraesophageal hernia (08/15/21) [facility] Thoracic total knee arthroplkasty (07/11/17) left knee arthroplasty Tobacco Smoking/Tobacco Use Status: Former Tobacco Use Alcohol Alcohol Intake: never Substance Use Substance use: Never Substance use type: does not use Vital Signs and Lab Results Vital Signs Most Recent Vital Signs in EMR: Most Recent Vital Signs Temp Pulse Resp BP Pulse Ox 36.4 C L 62 18 184/95 H 97 09/06/22 07:53 09/06/22 07:53 09/06/22 07:53 09/06/22 07:53 09/06/22 07:53 Lab Results Blood Type / Crossmatch: No Data to Display Complete Blood Count: No Data to Display Complete Metabolic Panel: No Data to Display Liver Function Panel: No Data to Display Coagulation Panel: No Data to Display Cardiac Panel: No Data to Display Arterial Blood Gas: No Data to Display Venous Blood Gas: No Data to Display Pancreas Panel: No Data to Display Thyroid Panel: No Data to Display Infectious Disease: No Data to Display Blood Cultures: No Data to Display Toxicology Panel: No Data to Display Imaging and Studies Imaging and Studies Study information below may be from another EMR and interpreted by another provider. Please see original notes in EMR for more complete details. Stress Test Summary: Date of Exam: 06/21/21Sex: F Admission Date: 06/21/21 : 1940 Age: 81 APPROVED REPORT Exam: Pharmacologic Patient Location: Out-Patient Room/Bed: Stress Nurse: Kizzy Martins RN Ordering Provider:PATRICE CÁRDENAS, Contact Number: [phone] BMI: 31.10 Baseline Rhythm: Sinus Bradycardia Comment: 1 DHB Indications: Preop, AFib, CVA, hypertension, hyperlipidemia Stress ECG Conclusion 1. Resting electrocardiogram showed poor R wave progression 2. Patient underwent pharmacologic stress with regadenoson 3. Peak heart rate was 62% of maximal predicted for age 4. Electrocardiographically the test was nondiagnostic due to inadequate heart rate 5. There were no significant dysrhythmias MPI Conclusion Suboptimal, nondiagnostic Cardiac Catheterization Summary: The patient had coronary CTA performed at [facility] on August 05. This showed only mild nonobstructive coronary disease. The proximal left anterior descending had a less than 50% area of stenosis. The circumflex and right coronary arteries had no significant findings. Coronary artery calcium score was 18. Based on this, the patient has no significant obstructive CAD and I would consider her a below average risk candidate from the cardiac standpoint for proposed surgical repair of paraesophageal hernia This will be conveyed to her surgeon Dr. Cárdenas at [facility] No additional preoperative cardiac testing is currently indicated Addendum dictated by Lizzette Mccarty M.D. 08/09/21 1526 Anesthesia Assessment and Plan Anesthesia History Personal History: Other Family History: Family History Unknown Exercise Tolerance Exercise Tolerance: Metabolic Equivalents>4 Pertinent Negatives Pertinent Negatives: No Symptoms of GERD and No Major Pulmonary Symptoms or Complaints Cardiac & Pulmonary Exam Cardiac Exam: Other Pulmonary Exam: Clear Bilateral Breath Sounds Implantable Cardiac Device Does patient have a Pacemaker or an ICD?: No Airway Exam Known Difficult Airway: No Mallampati Class: 1 Mouth Opening: Normal (> 3cm) Thyromental Distance: Greater than 3 cm Neck Range of Motion: Limited ROM Neck Circumference: Normal Teeth Condition: Edentulous ASA Classification ASA Score: ASA 3 Emergency Case?: No NPO Status NPO Status: NPO Clears >2 hours, Solids >8 hours Anesthesia Plan Resuscitation Status: Full Code Anesthesia Technique: General Anesthesia Airway Planned: LMA Pain Management: Surgeon and patient request nerve block Monitors Used: Standard Monitors
[2022-09-06] MEDS: Lactated Ringers 1,000 ML 80 ML IV (08:59)
[2022-09-06] MEDS: ceFAZolin 2 GM/50 ML BAG IVPB (10:25)
--- NOTE | 2022-09-06 11:15 | W.ANESNERVE ---
Nerve Block Single Injection Procedure Date and Time Date Performed: 09/06/22 Procedure Start: 10:15 Location Where Procedure Performed Procedure Location: Day Surgery Unit Reason Performed: Postoperative Analgesia Requesting Provider: lAex Dixon Timeout Performed Timeout Performed: Yes Monitoring Used ECG, Blood Pressure, SpO2 and See EMR for corresponding vital signs Sterility Sterility: Hand Hygiene, Surgical Cap, Surgical Mask, Sterile Gloves and Chlorhexidine Sedation Given During Procedure Sedation Given (Indicate Dose Given): No Sedation given Patient Mental Status Patient Mental Status: Awake Nerve Block 1st Nerve Block: Laterality: Right Block Type: Adductor Canal Needle / Catheter Used: 100mm SonoPlex II Local Anesthetic Bolus (Indicate Dose Given): Lidocaine used for local infiltration of skin, Injected in 3-5ml increments after negative blood aspiration and Bupivacaine 0.25% Dose:: 20ml Additives (Indicate Dose Given): None Ultrasound: Sterile probe cover and gel used Ultrasound Image Saved?: Yes Nerve Stimulator: Not Used Paresthesia: None Procedure Tolerated: No Complications and Patient tolerated well Procedure Outcome: Successful Performed By: Antione Montero
[2022-09-06] MEDS: Normal Saline 10 ML VIAL IJ (12:19)
[2022-09-06] MEDS: HYDROmorphone 2 MG/ML SYR IVP (12:19)
--- NOTE | 2022-09-06 12:22 | W.PM.OP ---
Date of service: 09/06/22 Time of Service: 11:35 Operative Note Operative Note DATE OF PROCEDURE: 09/06/22 PRE-OP DIAGNOSIS: Painful Right Knee Replacement, Subluxed Patella POST-OP DIAGNOSIS: same PROCEDURE: Revision of Patella Component - Right Knee, application of dhruv dressing SURGEON: Alex Dixon SUPERINTENDENT STEVEDORING: Mary Dunham ANESTHESIA TYPE: General LMA/ETT and Spinal Refer to Anesthesia Record ESTIMATED BLOOD LOSS: 20 PATHOLOGY: none sent COMPLICATIONS: None Patient was transported to: PACU Patient's condition: stable Implants: Depuy Attune Medial Dome Patellar Component, Size 35 Indications: I have seen Linda in clinic for symptoms of RIGHT knee pain after previous replacement. X-ray findings showed a laterally tilted patella with articulation of the lateral button and the lateral aspect of the patella against the trochlea. She had specific pain to the patellofemoral compartment which is worsened with flexion and with direct pressure. She had tried to treat this without surgery but continued to have symptoms. Therefore, I offered a revision of her patellar component. I explained the risks of the procedure to include, but not limited to, bleeding, infection, pain, stiffness, fracture, damage to nerves and vessels, damage to muscles and tendons, loosening, need for repeat procedure, blood clot and cardiopulmonary demise. Despite these risks, Linda elected to proceed. Findings: There was a laterally tilted patella with wear of the lateral side of the patellar button and notable synovitis of the lateral retinaculum adjacent to the lateral edge of the patella. The patella was recut with the old component cement being removed and a new patellar component placed. A pants over vest type closure was made of the medial retinaculum to tighten up the medial side and keep the patella compressed. Procedure Description: Linda was greeted in the preoperative holding area where the correct side was identified and marked. The consent was reviewed with the patient and signed. The history and physical was updated. All questions were answered. Preoperative medications were administered: Acetaminophen 1000mg, Celebrex 400mg, and Gabapentin 300mg. An adductor canal block was then administered by the anesthesia team in the PACU. Linda was taken back to the operating room. A general anesthetic was then administered. The patient was placed into the supine position on the operating room table. Posts were placed for positioning during the procedure. All bony prominences were well padded. Prophylactic antibiotics in the form of Cefazolin were administered. 1g of Tranxemic Acid was given intravenously within 30 minutes of incision. The right leg was then prepped with Chloraprep and draped in a standard fashion with impervious stockinette. A second prep with Chloraprep was performed prior to application of Iodine impregnated skin protection. A timeout to confirm correct identity, side and site, procedure, allergies, anesthesia, and medical concerns was performed. With the knee in some flexion, a portion of the previous midline incision was incised. Full thickness skin flaps were raised once the extensor mechanism was encountered. These were raised medially and laterally. The extensor mechanism was intact with the vastus medialis in a reasonable position and without any notable gap of the medial retinaculum or the quadriceps tendon. Any bleeding was controlled with electrocautery. Once the extensor mechanism was fully exposed, a medial parapatellar arthrotomy was performed in a flexed position. All bleeding from the arthrotomy and the geniculate arteries was coagulated. There was obvious wear of the lateral side of the patellar button along with the lateral edge of the patella with notable synovitis and frayed tissue of the lateral retinaculum and the lateral side of the patella. As per the preoperative plan, I used the patellar clamp and cut guide to resect the patella and a slightly thinner and more laterally oriented position. This remove the bulk of the patella and its cement. I used a rongeur to remove any remnant cement and polyethylene from the lugs. There was some bone loss in this area but there was a remnant rim of the patella which was sufficient. The size 35 patella fit the best. This was oriented and then clamped into position. This was trialed and had appropriate articulation with the trochlea without any tilt. The lugs were drilled. On the back table 1 batch of high viscosity cement was prepared with vacuum assistance. The periosteal and capsular tissues and skin were then systematically injected with a periarticular cocktail consisting of 123mg of Ropivacaine, 0.25mg of Epinephrine, and 15mg of Ketorolac, diluted to 50cc.. Cement was lastly manually impacted into the cut surface of the patella as well as the backside of patellar button. Given the bone loss the patellar button only had 1 lug hole to fit into. This was lined up and then the patella was inspected for appropriate position and rotation. Once this was confirmed it was clamped fully. Excess cement was removed. While the cement was hardening, the knee was irrigated with Irrisept chlorhexadine solution. This was allowed to sit in the knee for 3 minutes and then it was thoroughly irrigated with saline. After the cement had finally cured, approximately 18min, the clamp was removed from the patella and the knee was taken through range of motion. There is very minor tilt of the patella with no thumbs. With reapproximation of the medial retinaculum there is no patellar tilt and good tracking. Attention was then turned to the closure. A pants over vest type closure was then performed by bringing the medial retinaculum to overlap the medial edge of the patella. This was done using #2 FiberWire and multiple locations. The remainder of the quadriceps arthrotomy and the capsule was finally closed with a No. 2 Stratafix, barbed suture. The skin was closed with a series of 0 and 2-0 Vicryl. This was then followed by staple closure. A subcuticular stitch was not utilized given how thin her dermis was. A dhruv vacuum-assisted dressing was then applied to help assist with wound healing and minimize drainage. This was followed by a [id number] MADDIE wrap. A CryoCuff was applied. Linda was transferred to the hospital stretcher without difficulty an suffering no apparent complication. Linda has a good prognosis. Physical therapy will start today and without restrictions, weight-bearing as tolerated. Her home dose of Eliquis will be used for DVT prophylaxis.
--- NOTE | 2022-09-06 14:53 | IN_ITS ---
Date of service: 09/06/22 Time of Service: 14:43 PT Notes Visit Reasons: Revision right patella from painful right TKA Physical Therapy Day Surgery Initial Evaluation Date: 09/06/2022 Referring Doctor: MANDY Castle PT Orders: PT CONSULT: S/P Ortho Surgery Precautions: WBAT on R LE with AD. Patient Profile/Admitting Diagnosis: Linda is an 82-year-old female with history of CVA and painful right total knee replacement (done by Dr. Aguila in Oct 2011) now found to have a subluxed patella status post patellar component revision with application of TAYLOR dressing on postoperative day 0. PMHX: All Active Problems? Painful total knee replacement, right (Acute) Status post right knee replacement (Acute) Regurgitation and rechewing (Acute ~10/2021) [place] [facility] [place], gastric emptying scan ordered and consult with Rigging [facility] Lung nodule < 6cm on CT (Acute) LEWIS (dyspnea on exertion) (Acute) Paraesophageal hernia (Acute) Urinary incontinence (Acute) Vomiting (Acute) Fall (Acute) Rib pain on left side (Acute) Left shoulder pain (Acute) Iliotibial band syndrome of right side (Acute) Status post total right knee replacement (Acute 11/20/11) Anxiety and depression (Chronic 09/05/17) Anticoagulant long-term use (Acute) Cough (Acute) Wheeze (Acute) Hiatal hernia (Chronic) Adjustment disorder, unspecified (Acute 11/16/16) Atrial fibrillation (Chronic 01/22/18) Essential hypertension (Acute 04/28/16) Gastroesophageal reflux disease (Chronic 04/28/16) Due to Hiatial Hernia History of CVA (cerebrovascular accident) (Acute 10/24/15) Dry Stroke, 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 Actinic keratosis [place] angioma Closed extra-articular fracture of distal end of right radius (01/31/17) Dehydration Episode of recurrent major depressive disorder (10/17/16) Gastroenteritis Hx of atrial fibrillation, no current medication (04/25/16) Pt was seen by a superintendent electric power and was put on Metoprolol but medication was stopped due to bradycardia. per Dr. Addison Shore 04/25/2016 Keratoacanthoma (~05/2022) Derm (Left trunk) Seborrheic keratoses Surgical History? Cholecystectomy (01/10/18) Extraction of cataract H/O endoscopy (10/24/21) Open Carpal Tunnel release right S/P repair of paraesophageal hernia (08/15/21) [facility] [place] Total knee arthroplasty (07/11/17) left knee arthroplasty Social History/Home Situation: Lives alone on the first floor of the apartment floor building in [place], [place]. Independent with [employer] indoors, requires supervision of another outdoors. Equipment Owned/DME: [employer] Subjective: States that she has fallen at least 5 times in the past year, she could not keep count anymore. Feels safe however going home today with her son and her son's SO taking turns looking after her as she recovers at home. Reports some pulling sensation in the front of her R thigh with seated exercises and with walking. Objective: General Observation: Supine in stretcher. Mental Status: MADDIE wrap to R LE, TAYLOR device in place. TEDS in L leg. Pain: 2-3/10 in R knee with weight bearing ROM: Right Lower Extremity: Hip flexion WFL. Hip abduction WFL. Knee flexion 10 degrees to 90 degrees. Extension -10 degrees. Ankle dorsiflexion to neutral only. Ankle plantarflexion WFL. Left Lower Extremity: Hip flexion WFL. Hip abduction WFL. Knee flexion WFL. Ankle dorsiflexion to neutral only. Ankle plantarflexion WFL. Strength: Right Lower Extremity: Hip flexors 4/5. Hip abductors 4/5. Knee flexors 3-/5. Knee extensors 3-/5. Ankle dorsiflexors 3-/5. Ankle plantarflexors 3+/5. Left Lower Extremity:Hip flexors 5/5. Hip abductors 5/5. Knee flexors 5/5. Knee extensors 5/5. Ankle dorsiflexors 5/5. Ankle plantarflexors 5/5. Sensation: Intact as to pain and light pressure in B LE Bed Mobility/Transfers: Supine to sit stand by assist Sit to stand contact guard assist Stand to sit contact guard assist Bed to chair minimal assist Gait: 30 feet using youth front-wheeled walker with step to gait pattern requiring minimal assist as patient looked unsteady. Posture kyphotic and requires moderate cueing for safety. Mildly uncoordinated. Physical assist neeeded during directional changes. Reports some pulling sensation in R anterior thigh. Balance: Static Sitting: Good Dynamic Sitting: Good Static Standing: Fair Dynamic Standing: Poor THERA EX: Seated hip marches x 10 LAQs x10 SLR to 30 degrees x 10 Special Tests: Mobility Limitations Standardized Measure [facility] AM-PAC 6 clicks Basic Mobility Inpatient Short Form: Raw Score: 30 CMS Score: 36% deficit Informed Consent/Education: Patient was instructed in purpose of PT consult. Education and training on initial set of exercises that can be done at home have been completed with patient. Assessment: Residual weakness on the R from previous CVA. Gait unsteady. Repeated falls in the past year. Patient may not thrive alone at home and is at high risk for falls. Son and son's SO will take turns to be with patient for the next three days for safety as patient refused recommendation of short-term rehab placement. She however is agreeable to having PT and nursing come for follow up. Patient presents with clinical signs and symptoms consistent with current/admitting diagnoses that have resulted to mobility limitations, gait instability, generalized weakness, and impairment of motor control as demon strated by the following impairment level findings: 1. Decreased strength to R knee major muscle groups 2. Impaired standing balance 3. Limitation of joint range of motion in R knee Impairments are contributing to the following functional limitations: 1. Inability to safely ambulate without assistive device 2. Increase completion time for mobility ADL performance 3. Increased fall risk Patient is assessed as a 56057 high complexity based on the following: History: 82-year-old female with impairment level findings, functional limitations, and past medical history as indicated above Examination: Demonstrable impairment in strength, balance, and mobility level with underlying impairments and functional limitations as documented above Presentation: Evolving Decision Makin high complexity Goals: N/A. PT evaluation and 1-2 treatment sessions only for functional mobility training using recommended AD and for HEP instruction. Plan of Care/Treatment Plan: N/A. PT evaluation and 1-2 treatment session only for functional mobility training using recommended AD and for HEP instruction. DISCHARGE RECOMMENDATIONS: Short-term rehabilitation to increase stability and safety of mobility ADL performance prior to D/C to home. Highly recommend PT and nursing as patient is insistent about going home. TREATMENT CODE/TIME: 87633 x 30 minutes, 81763 x 27 minutes beginning at 14:43 PM. Thank you for the opportunity to participate in the care of this patient. Kaylynn Hunter PT, DPT, CLT [facility] [place], [place]
--- NOTE | 2022-09-06 15:03 | W.ANESPOSTOP ---
Postoperative Evaluation Date, Time and Location Date Performed: 09/06/22 Time Performed: 15:03 Patient Location: Day Surgery Unit Vital Signs Most Recent Imported Vital Signs: Most Recent Vital Signs Temp Pulse Resp BP Pulse Ox 36.3 C L 56 L 16 153/96 H 96 09/06/22 14:21 09/06/22 14:21 09/06/22 14:21 09/06/22 14:21 09/06/22 14:21 Pain Score Most Recent Pain Score: Most Recent Pain Score Pain Level 3 09/06/22 14:21 Assessment Mental Status: Awake (Alert & Oriented to Patient Baseline) Airway and Respiratory Function: Patent airway with normal (patient baseline) respiratory exam Cardiovascular Function: Hemodynamically Stable Hydration Status: Adequately Hydrated Nausea & Vomiting: No Nausea or Vomiting Pain: Pain is tolerable per patient Peripheral Nerve Block: Regional nerve block not resolved at time of post operative discharge
--- NOTE | 2022-09-09 10:37 | NUR.NOTE ---
Nursing Note:Accessed pt chart for [facility]. Paperwork not complete. Need what was dispensed, no label on paperwork.
== END 2022-09-06 16:24 | disposition home or self-care (01) ==
PROVIDERS: PCP Nurse Practitioner; Visit Provider Student in an Organized Health Care Education/Training Program
PROC: (CPT 27487; principal; 2022-09-06 10:00)
DX: T84.022A Instability of internal right knee prosthesis, initial encounter (principal); T84.84XA Pain due to internal orthopedic prosthetic devices, implants and grafts, initial encounter; Z96.651 Presence of right artificial knee joint
CPT/HCPCS: 27438; C1776; 76942; 97163; 97530; J0690; J1100; J1170; J2405; J2704

== ENCOUNTER → 2022-09-18 10:27 | Outpatient (BNVA) | payer MEDICARE, SELFPAY | PROVIDERS: PCP Nurse Practitioner; Referring Provider Nurse Practitioner; Visit Provider Student in an Organized Health Care Education/Training Program | DX: T84.84XA Pain due to internal orthopedic prosthetic devices, implants and grafts, initial encounter (principal); Z96.651 Presence of right artificial knee joint ==

== ENCOUNTER 2022-09-25 03:08 | Outpatient (CLI) | payer MEDICARE, SELFPAY ==
[2022-09-25 08:44] LABS: ALT 10 U/L (14-59); AST 9 U/L (15-37); Albumin 3.4 g/dL (3.4-5.0); Alkaline Phosphatase 62 U/L (46-116); Anion Gap 6.2 mmol/L (3-11); BUN 20 mg/dL (7-18); Bilirubin, Total 0.4 mg/dL (0.2-1.0); CO2 30.8 mmol/L (21.0-32.0); CREATININE 1.1 mg/dL (0.55-1.02); Calcium 8.3 mg/dL (8.5-10.1); Calculated LDL 81 mg/dL (<100); Chloride 103 mmol/L (98-107); Cholesterol 162 mg/dL (<200); Estimated GFR 49.86 (mL/min/1.73m2); Glucose 94 mg/dL (74-106); HDL Cholesterol 69 mg/dL (40-60); Potassium 3.8 mmol/L (3.5-5.1); Sodium 140 mmol/L (136-145); Total Protein 6.5 g/dL (6.4-8.2); Triglyceride 64 mg/dL (<150)
== END 2022-09-25 03:09 | disposition home or self-care (01) ==
LOC: LBO 03:10
PROVIDERS: PCP Nurse Practitioner; Visit Provider Nurse Practitioner
DX: E78.5 Hyperlipidemia, unspecified (principal); I10 Essential (primary) hypertension; I48.91 Unspecified atrial fibrillation; Z86.73 Personal history of transient ischemic attack (TIA), and cerebral infarction without residual deficits
CPT/HCPCS: 36415; 80053; 80061

== ENCOUNTER 2022-10-03 12:42 | Outpatient (REF) | payer MEDICARE, SELFPAY ==
[2022-10-03 15:54] LABS: Bilirubin Negative (Negative); Blood Negative (Negative); Clarity Cloudy (Clear); Glucose Negative (Negative); Ketones Negative (Negative); Leukocyte Esterase Negative (Negative); Nitrite Negative (Negative); Specific Gravity >= 1.030 (1.005-1.025); Urobilinogen 0.2 EU/dL (Up TO 0.2)
[2022-10-03 16:04] LABS: Bacteria Few HPF (Negative); Epithelial Cells Few HPF (Negative); RBC 0-2 HPF (0-2)
[2022-10-03 16:05] LABS: C & S Indicated? C&S Done As Ordered; Casts Negative LPF (Negative); Crystals Many Calcium Oxalate HPF (Negative); Mucus Trace (Negative)
== END 2022-10-03 12:43 | disposition home or self-care (01) ==
LOC: LBN 12:42
PROVIDERS: PCP Nurse Practitioner; Visit Provider Nurse Practitioner
DX: R35.0 Frequency of micturition (principal)
CPT/HCPCS: 87077; 87186; 81003; 81015; 87086

== ENCOUNTER 2022-10-17 14:36 | Outpatient (REF) | payer MEDICARE, SELFPAY ==
[2022-10-17 17:05] LABS: Bilirubin Negative (Negative); Blood Trace-intact (Negative); Clarity Sl Cloudy (Clear); Glucose Negative (Negative); Ketones Negative (Negative); Leukocyte Esterase Small (Negative); Nitrite Negative (Negative); Specific Gravity >= 1.030 (1.005-1.025); Urobilinogen 0.2 EU/dL (Up TO 0.2)
[2022-10-17 17:16] LABS: Epithelial Cells Few HPF (Negative); RBC 0-2 HPF (0-2)
[2022-10-17 17:17] LABS: Bacteria Moderate HPF (Negative); C & S Indicated? Yes; Casts Negative LPF (Negative); Crystals Few Calcium Oxalate HPF (Negative); Mucus Negative (Negative)
== END 2022-10-17 14:37 | disposition home or self-care (01) ==
LOC: LBN 14:36
PROVIDERS: PCP Nurse Practitioner; Visit Provider Nurse Practitioner
DX: R82.90 Unspecified abnormal findings in urine (principal)
CPT/HCPCS: 81003; 81015; 87086

== ENCOUNTER → 2022-10-19 11:07 | Outpatient (BNVA) | payer MEDICARE, SELFPAY | PROVIDERS: PCP Nurse Practitioner; Referring Provider Nurse Practitioner; Visit Provider Student in an Organized Health Care Education/Training Program | DX: Z47.1 Aftercare following joint replacement surgery (principal); Z96.651 Presence of right artificial knee joint ==

== ENCOUNTER 2022-11-03 12:59 | Outpatient (REF) | payer MEDICARE, SELFPAY ==
[2022-11-03 12:55] LABS: Bilirubin Small (Negative); Blood Negative (Negative); Clarity Clear (Clear); Glucose Negative (Negative); Ketones Trace mg/dL (Negative); Leukocyte Esterase Trace (Negative); Nitrite Negative (Negative); Specific Gravity >= 1.030 (1.005-1.025); Urobilinogen 0.2 EU/dL (Up TO 0.2); pH 5.5 (5-8)
[2022-11-03 13:05] LABS: Bacteria Few HPF (Negative); C & S Indicated? No/Sq. Contamination; Casts Negative LPF (Negative); Crystals Many Calcium Oxalate HPF (Negative); Epithelial Cells Moderate HPF (Negative); Mucus Moderate (Negative); RBC 0-2 HPF (0-2)
== END 2022-11-03 13:00 | disposition home or self-care (01) ==
LOC: LBN 12:59
PROVIDERS: PCP Nurse Practitioner; Visit Provider Nurse Practitioner
DX: N39.0 Urinary tract infection, site not specified (principal)
CPT/HCPCS: 81003; 81015

== ENCOUNTER 2022-11-22 02:16 | Outpatient (CLI) | payer MEDICARE, SELFPAY ==
[2022-11-22 10:06] LABS: Bilirubin Negative (Negative); Blood Trace-intact (Negative); Clarity Sl Cloudy (Clear); Glucose Negative (Negative); Ketones Negative (Negative); Leukocyte Esterase Small (Negative); Nitrite Negative (Negative); Specific Gravity 1.025 (1.005-1.025); Urobilinogen 0.2 EU/dL (Up TO 0.2)
[2022-11-22 10:19] LABS: WBC 0-2 HPF (0-5)
[2022-11-22 10:20] LABS: Bacteria Few HPF (Negative); C & S Indicated? No/Sq. Contamination; Casts Negative LPF (Negative); Crystals Negative HPF (Negative); Epithelial Cells Many HPF (Negative); Mucus Trace (Negative); Other Cells Few Transitional (Negative)
[2022-11-22 11:03] LABS: ALT 8 U/L (14-59); AST 9 U/L (15-37); Albumin 3.4 g/dL (3.4-5.0); Alkaline Phosphatase 78 U/L (46-116); Anion Gap 9.8 mmol/L (3-11); BUN 30 mg/dL (7-18); Bilirubin, Total 0.2 mg/dL (0.2-1.0); CO2 26.2 mmol/L (21.0-32.0); CREATININE 1.3 mg/dL (0.55-1.02); Calcium 8.9 mg/dL (8.5-10.1); Chloride 102 mmol/L (98-107); Glucose 150 mg/dL (74-106); Potassium 3.7 mmol/L (3.5-5.1); Sodium 138 mmol/L (136-145); TSH (W/Ref FT4) 1.98 uIU/mL (0.36-3.74); Total Protein 6.4 g/dL (6.4-8.2); Vitamin B12 306 pg/mL (193-986)
== END 2022-11-22 02:17 | disposition home or self-care (01) ==
LOC: LBO 02:16
PROVIDERS: PCP Nurse Practitioner; Visit Provider Nurse Practitioner
DX: F41.8 Other specified anxiety disorders (principal); R68.89 Other general symptoms and signs; R26.89 Other abnormalities of gait and mobility; R35.0 Frequency of micturition; R82.998 Other abnormal findings in urine; Z86.73 Personal history of transient ischemic attack (TIA), and cerebral infarction without residual deficits
CPT/HCPCS: 36415; 80053; 81003; 81015; 82607; 84443

== ENCOUNTER 2022-11-23 01:23 | Outpatient (CLI) | payer MEDICARE, SELFPAY ==
--- NOTE | 2022-11-23 09:10 | DI.CT_ITS ---
Exam(s) CT HEAD WO EXAM: CT HEAD WO CLINICAL HISTORY: falls, balance off, forgetful,h/o cva,w19.xxxa,z86.73,r26.89,r68.89. TECHNIQUE: Imaging Protocol: Axial computed tomography images with coronal and sagittal reformatted images were created and reviewed COMPARISON: No exams were available for comparison FINDINGS: There are no skull fractures. There is hyperostosis frontalis interna incidentally noted. There are no significant osseous lesions in the skull. There is no fluid in the visualized paranasal sinuses. There is no evidence of intracranial hemorrhage, mass effect, or shift of midline structures. There are no extra-axial fluid collections. The ventricles are not enlarged or shifted and there is no blo od within the ventricular system nor within the basal cisterns. There is periventricular hypodensity consistent chronic small vessel disease. However, there is also area of asymmetric abnormal hypodensity in the right frontal lobe, most probably consistent with inf arct, age indeterminate. There is no hyperdense ipsilateral middle cerebral artery. IMPRESSION: Abnormal right frontal lobe hypodense area, suspicious for ischemic infarct, age indeterminate. Palomo mmend follow-up MRI with diffusion imaging. If there is history of elsewhere malignancy then this sh ould also be contrast infused study to rule out ring-enhancing lesions in the brain. RADIATION DOSE DELIVERED: 556.59mGy.cm Total DLP DATA REPOSITORY: All CT scans at this facility are submitted to the National Radiology Data Registry (NRDR) Dose Index Registry (DIR) with the [employer] ([employer]). RADIATION OPTIMIZATION: All CT scans at this facility use at least one of these dose optimization te chniques: automated exposure control; mA and/or kV adjustment per patient size (includes targeted exa ms where dose is matched to clinical indication); or iterative reconstruction.
== END 2022-11-23 01:43 ==
LOC: DI 01:23
PROVIDERS: PCP Nurse Practitioner; Visit Provider Nurse Practitioner
DX: R26.89 Other abnormalities of gait and mobility (principal); R68.89 Other general symptoms and signs; W19.XXXA Unspecified fall, initial encounter; Z86.73 Personal history of transient ischemic attack (TIA), and cerebral infarction without residual deficits
CPT/HCPCS: 96372; 70450; J0897

== ENCOUNTER 2022-11-23 02:08 | Outpatient (RCR) | payer MEDICARE, SELFPAY ==
[2022-11-23] MEDS: Denosumab 60 MG/ML SYR SC (12:52)
== END 2022-11-28 23:59 | disposition home or self-care (01) ==
LOC: INF 02:08
PROVIDERS: PCP Nurse Practitioner; Visit Provider Nurse Practitioner
DX: M81.0 Age-related osteoporosis without current pathological fracture (principal)
CPT/HCPCS: 96372; J0897

== ENCOUNTER 2022-11-30 11:55 | Outpatient (CLI) | payer MEDICARE, SELFPAY ==
--- NOTE | 2022-11-30 11:15 | DI.RAD_ITS ---
Exam(s) XR HIP RT COMPLETE AP PELVIS EXAM: XR HIP RT COMPLETE AP PELVIS INDICATION: right hip pain. COMPARISON: CR XR DEXA BONE DENSITY W/WO LAILA from 02/25/2021 TECHNIQUE: 2D digital imaging was performed. Three views. FINDINGS: There is severe joint space narrowing of the right hip periarticular sclerosis, subchondral cyst for mation and moderate periarticular spurring. There is no flattening of the right femoral head. There is mild narrowing of the right hip joint space with mild periarticular spurring. There are mild deg enerative changes of the SI joints. There are severe degenerative changes at the L5-S1 disc space. IMPRESSION: Severe degenerative changes of the right hip. DATA REPOSITORY: RADIATION DOSE DELIVERED:
== END 2022-11-30 11:56 | disposition home or self-care (01) ==
LOC: DIORS 11:56
PROVIDERS: PCP Nurse Practitioner; Referring Provider Nurse Practitioner; Visit Provider Physician Assistant
DX: T84.84XA Pain due to internal orthopedic prosthetic devices, implants and grafts, initial encounter; Z96.651 Presence of right artificial knee joint; M16.11 Unilateral primary osteoarthritis, right hip; Z47.1 Aftercare following joint replacement surgery; R29.6 Repeated falls
CPT/HCPCS: 73502

== ENCOUNTER 2022-12-14 00:19 | Outpatient (CLI) | payer MEDICARE, SELFPAY ==
--- NOTE | 2022-12-14 07:45 | DI.RAD_ITS ---
Exam(s) RF JOINT INJECTION FLUORO GUID EXAM: RF JOINT INJECTION FLUORO GUID CLINICAL HISTORY: R HIP INJECTION UNDER FLUORO,rt hip pain, m25.551 TECHNIQUE: Fluoroscopy provided. Radiologist not present. CONTRAST MATERIAL: None COMPARISON: No exams were available for comparison FINDINGS: Fluoroscopy was provided for Dr. Dixon during right hip therapeutic injection. Please refer to the procedure report for complete details. Cumulative Dose: Ka,r=0.212 mGy IMPRESSION: RADIATION DOSE DELIVERED:
--- NOTE | 2022-12-14 14:54 | W.PROCNOTE ---
Date of service: 12/14/22 Time of Service: 14:54 Procedure Note Date of procedure: 12/14/22 Procedure: Right Hip Injection with Fluoroscopic Guidance Surgeon/Proceduralist/Physician: Alex Dixon Procedure Diagnosis: Right Hip Osteoarthritis Procedure Indications: Linda has had persistent pain of the RIGHT hip and groin. Noninvasive measures have been tried. To serve as both diagnostic and therapeutic, an injection under fluoroscopy was recommended. I had discussed the risks of the procedure and the patient elected to proceed. Procedure Description: Lnida was greeted in the flouroscopy room. The correct side was identified and the consent was reviewed with the patient and signed. The patient was then placed in the supine position on the fluoroscopy table. The RIGHT hip was then prepped with Chloraprep. The anterolateral injection starting point was identiifed by bony landmarks and fluoroscopy. The skin and soft tissue in the tract of the injection was anesthetized with 1% Lidocaine. A spinal needle was then inserted deep into the hip joint at the level of the lateral femoral neck under fluoroscopic guidance. A small amount of Omnipaque solution was injected to confirm intraarticular placement. Once confirmed, the hip was injected with 5cc of 0.5% Bupivicaine and 80mg of Depo-Medrol. A bandaid was placed on the injection site. The patient tolerated the procedure well and noted improvement in pre-injection pain.
[2022-12-14] MEDS: Bupivacaine 0.5% Pres-Free 10 ML VIAL IJ (15:02)
[2022-12-14] MEDS: methylPREDNISolone ACETATE 80 MG/ML VIAL IM (15:02)
== END 2022-12-14 00:39 ==
LOC: DI 00:19
PROVIDERS: PCP Nurse Practitioner; Visit Provider Student in an Organized Health Care Education/Training Program
DX: M25.551 Pain in right hip (principal); M16.11 Unilateral primary osteoarthritis, right hip
CPT/HCPCS: 20610; 77002; J1040

== ENCOUNTER 2022-12-21 05:36 | Emergency (ER) | payer MEDICARE, SELFPAY ==
--- NOTE | 2022-12-21 05:26 | ED.GENADUL_ITS ---
Discharge Plan Disposition Patient Disposition: Home Condition: Stable Discharge Details Clinical Impression: Acute pain of right knee, History of right knee surgery, Lateral subluxation of right patella Primary Care Provider: Patricia Garza ED Provider: Mehreen Simon Home Meds and New Rx's Prescriptions: Continued citalopram 20 mg tablet 20 mg PO DAILY Qty: 90 3RF apixaban 2.5 mg tablet 2.5 mg PO BID Qty: 180 3RF Trelegy Ellipta 100-62.5-25 mcg blister with device 1 inh inhalation DAILY Prolia 60 MG/1 ML syringe 60 mg SQ [id number] Patient Comments: 07/09/13 per pt not due until next month, DCW calcium-vitamin D3-vitamin K 1 EACH tablet,chewable 1 ea PO DAILY Varicella-Zoster Ge/As01b/Pf [Shingrix Vial Kit] 50 MCG INJ 50 mcg IM ONCE Qty: 1 1RF bupropion HCl [Wellbutrin XL] 150 mg tablet extended release 24 hr 150 mg PO QAM Qty: 90 3RF fenofibrate nanocrystallized 48 mg tablet See Rx Instructions .ROUTE .COMPLEX Qty: 90 3RF Dose Instruction: TAKE ONE TABLET BY MOUTH EVERY DAY Rx Instructions: TAKE ONE TABLET BY MOUTH EVERY DAY metoprolol succinate 50 mg tablet extended release 24 hr See Rx Instructions .ROUTE .COMPLEX Qty: 90 3RF Dose Instruction: TAKE ONE TABLET BY MOUTH EVERY DAY Rx Instructions: TAKE ONE TABLET BY MOUTH EVERY DAY prochlorperazine maleate 10 mg tablet See Rx Instructions .ROUTE .COMPLEX Qty: 30 0RF Dose Instruction: TAKE 1/2 TO 1 TABLET BY MOUTH TWICE DAILY NEEDED FOR NAUSEA AND VOMITING Rx Instructions: TAKE 1/2 TO 1 TABLET BY MOUTH TWICE DAILY NEEDED FOR NAUSEA AND VOMITING fluticasone furoate-vilanterol [Breo Ellipta] 200-25 mcg/dose blister with device See Rx Instructions .ROUTE .COMPLEX Qty: 180 3RF Dose Instruction: INHALE 1 DOSE BY MOUTH ONCE DAILY Rx Instructions: INHALE 1 DOSE BY MOUTH ONCE DAILY albuterol sulfate [Ventolin HFA] 90 mcg/actuation HFA aerosol inhaler See Rx Instructions .ROUTE .COMPLEX Qty: 18 6RF Dose Instruction: INHALE TWO PUFFS BY MOUTH EVERY 6 HOURS NEEDED FOR FOR SHORTNESS OF BREATH OR WHEEZING Rx Instructions: INHALE TWO PUFFS BY MOUTH EVERY 6 HOURS NEEDED FOR FOR SHORTNESS OF BREATH OR WHEEZING omeprazole 40 mg capsule,delayed release(DR/EC) See Rx Instructions .ROUTE .COMPLEX Qty: 180 3RF Dose Instruction: TAKE ONE CAPSULE BY MOUTH TWICE A DAY Rx Instructions: TAKE ONE CAPSULE BY MOUTH TWICE A DAY acetaminophen 500 mg tablet 500 mg PO Q6H PRN (Reason: pain) Qty: 60 2RF Discharge Instructions Instructions: Knee Pain (ED) Additional Instructions: Rest and elevate your right leg as much as possible. Wear your knee immobilizer while ambulating with your walker. Follow-up with Dr. Dixon in the orthopedics office for reevaluation and further discussion of your treatment plan going forward. Return immediately to the emergency department if you develop any worsening or new concerning symptoms. Referrals: Alex Dixon MD [ [facility] STAFF PHYSICIAN] - Discharge Data Discharge Date/Time-TO BE ENTERED AT DEPARTURE: 12/21/22 08:34 Discharge Physician: Mehreen Simon Medical Decision Making 82-year-old female with history of prior total right knee replacement and just over 3-months status post revision of right TKA patellar component and lateral release on 09/06/[address] Dixon presents for right knee pain and difficulty weightbearing this morning while walking to the bathroom. Reports a fall onto the right knee a few weeks ago. She also has a h/o severe hip arthritis and had a steroid injection to her right hip 1 week ago. Patient is holding her knees flexed while laying in the stretcher as this is a more comfortable position for her. Her right anterior knee is mildly edematous without significant erythema but does feel slightly warm to touch in comparison to her left knee. There is no induration or fluctuance. She is able to extend the knee without significant pain. She is complaining also of significant pain in her right groin with leg extension but not with internal or external rotation. She is neurovascularly intact. As she endorsed a fall onto her knee a few weeks ago, will obtain a right knee x-ray. Also obtain screening labs including CRP. We will give a dose of IV Tylenol and oxycodone for pain relief and call orthopedics for recommendations. Labs and imaging reviewed. Normal white blood cell count. CRP minimally elevated at 1.55. ESR within normal limits. Imaging of the right knee shows that patient has a lateral subluxation of the patella. Case discussed with Dr. Dixon who evaluated patient at bedside. Recommends knee immobilizer and will arrange for physical therapy. Pt will f/u with orthopedics and likely plan is for surgical repair of suspected quadriceps tear/patellar subluxation. Knee immobilizer placed and patient was able to ambulate with walker. Usual and customary return precautions given prior to discharge. Medical Records Medical records reviewed: Yes I reviewed the patient's medical records. Imaging Data Radiologic Study: Radiologist's impression: XR KNEE RT 3V AP,LAT,FERCHO CLINICAL HISTORY: ? R anterior knee pain, s/p fall, r/o fx.? TECHNIQUE:? 2D digital imaging was performed of the right knee. Three views obtained.? AP, lateral and PA tunnel? views were obtained. COMPARISON:? CR XR KNEE RT 3V AP,LAT,FERCHO from 07/21/2022 FINDINGS: BONES: No acute fracture is present. No bony destructive lesion is seen. The bones are osteopenic. JOINTS: The knee is normally aligned. There are postsurgical changes of a right total knee arthroplasty.? The orthopedic hardware appears in good position.? SOFT TISSUE: There is mild edema in the soft tissues anterior to the knee.? IMPRESSION: No acute abnormality.? XR KNEES MERCHANT ONLY CLINICAL HISTORY: ? R knee pain, s/p patella lateral release.? TECHNIQUE:? 2D digital imaging was performed of the right knee. One views obtained. Merchant,? views were obtained. COMPARISON:? CR XR KNEE RT 3V AP,LAT,FERCHO from 07/21/2022 FINDINGS: This is a limited examination consistent only of the Merchant view. There is lateral subluxation of the patella.? No fractures identified.? The patient's right total knee replacement is incompletely imaged.? There is soft tissue swelling around the knee. IMPRESSION: Lateral subluxation of the patella.? Soft tissue swelling around the knee.? HPI General Date/Time Provider Initiated Documentation: 12/21/22 05:45 . HPI Narrative: Pt is a 82-year-old female with history of prior total right knee replacement and just over 3-month status post revision of right TKA patellar component and lateral release on 09/06/[address] Dixon presents for right knee pain and difficulty weightbearing this morning. Patient states she has been using her cane or walker for ambulation since her surgery in August. Patient states she fell a few weeks ago in which her right knee gave out and she fell striking it on the ice. Patient states she did not receive an x-ray at that time. She states she has had still had ongoing knee pain since her surgery in August. Patient states she got up in the night to use the bathroom twice and was able to ambulate without significant pain using her walker. Patient states the last time she got up to go to the bathroom her right knee gave out due to pain and states she is unable to bear weight on her right knee due to this pain at this time. She also states her right groin ligament has been tight and she has had increased pain in this area as well. She received a steroid injection to the right hip [address] Dixon but she denies any significant relief with this since then. Patient states she feels the right knee feels warm to touch. She denies any known fever. Related Data Home Medications Medication Instructions Recorded Confirmed calcium-vitamin D3-vitamin K 500 1 ea PO DAILY 11/16/16 12/21/22 mg-1,000 unit-40 mcg chewable tablet denosumab 60 mg/mL subcutaneous 60 mg SQ [id number] 11/16/16 12/21/22 syringe (Prolia) fluticasone fur. 100 mcg-umeclid 1 inh inhalation DAILY 07/21/21 12/21/22 62.5 mcg-vilant 25 mcg inhalat.powder (Trelegy Ellipta) bupropion HCl 150 mg 24 hr tablet, 150 mg PO QAM #90 tabs 01/03/22 12/21/22 extended release (Wellbutrin XL) fenofibrate nanocrystallized 48 mg See Rx Instructions .Route 03/06/22 12/21/22 tablet .COMPLEX #90 tabs metoprolol succinate 50 mg See Rx Instructions .Route 03/06/22 12/21/22 tablet,extended release 24 hr .COMPLEX #90 tabs apixaban 2.5 mg tablet 2.5 mg PO BID #180 tabs 08/24/22 12/21/22 acetaminophen 500 mg tablet 500 mg PO Q6H PRN pain #60 tabs 09/06/22 12/21/22 prochlorperazine maleate 10 mg See Rx Instructions .Route 09/06/22 12/21/22 tablet .COMPLEX #30 tabs fluticasone furoate 200 See Rx Instructions .Route 09/26/22 12/21/22 mcg-vilanterol 25 mcg/dose .COMPLEX #180 blisters inhalation powder (Breo Ellipta) citalopram 20 mg tablet 20 mg PO DAILY #90 tab-caps 09/28/22 12/21/22 albuterol sulfate 90 mcg/actuation See Rx Instructions .Route 11/09/22 12/21/22 aerosol inhaler (Ventolin HFA) .COMPLEX #18 grams omeprazole 40 mg capsule,delayed See Rx Instructions .Route 12/04/22 12/21/22 release .COMPLEX #180 caps Previous Rx's Medication Instructions Recorded bupropion HCl 150 mg 24 hr tablet, 150 mg PO QAM #90 tabs 01/03/22 extended release (Wellbutrin XL) fenofibrate nanocrystallized 48 mg See Rx Instructions .Route 03/06/22 tablet .COMPLEX #90 tabs metoprolol succinate 50 mg See Rx Instructions .Route 03/06/22 tablet,extended release 24 hr .COMPLEX #90 tabs apixaban 2.5 mg tablet 2.5 mg PO BID #180 tabs 08/24/22 acetaminophen 500 mg tablet 500 mg PO Q6H PRN pain #60 tabs 09/06/22 prochlorperazine maleate 10 mg See Rx Instructions .Route 09/06/22 tablet .COMPLEX #30 tabs fluticasone furoate 200 See Rx Instructions .Route 09/26/22 mcg-vilanterol 25 mcg/dose .COMPLEX #180 blisters inhalation powder (Breo Ellipta) citalopram 20 mg tablet 20 mg PO DAILY #90 tab-caps 09/28/22 albuterol sulfate 90 mcg/actuation See Rx Instructions .Route 11/09/22 aerosol inhaler (Ventolin HFA) .COMPLEX #18 grams omeprazole 40 mg capsule,delayed See Rx Instructions .Route 12/04/22 release .COMPLEX #180 caps Allergies Allergy/AdvReac Type Severity Reaction Status Date / Time Penicillins Allergy Unknown Swelling/Ed Verified 12/21/22 05:35 bobo/Itching ciprofloxacin [From Cipro] AdvReac Intermediate Dizziness/L Verified 12/21/22 05:35 ighthead Sulfa (Sulfonamide AdvReac Unknown GI symptoms Verified 12/21/22 05:35 Antibiotics) General Stated Complaint: Orthopedic HAILEE: 3 Review of Systems All systems reviewed & are unremarkable except as noted in HPI and below Constitutional Constitutional: Reports as per HPI, Denies chills and Denies fever(s) Eyes Eyes: Denies blurry vision ENT Ears, Nose, Mouth, and Throat: Denies dizziness, Denies sore throat and Denies throat swelling Cardiovascular Cardiovascular: Denies chest pain and Denies dyspnea Respiratory Respiratory: Denies cough and Denies dyspnea Gastrointestinal Gastrointestinal: Denies abdominal pain, Denies diarrhea and Denies vomiting Genitourinary Genitourinary: Denies hematuria and Denies dysuria Musculoskeletal Musculoskeletal: Denies back pain and Denies numbness Comments: Right hip and knee pain Integumentary/Breasts Skin/Breast: Denies lesions and Denies rash Neurologic Neurologic: Denies dizziness, Denies localized weakness and Denies numbness Allergic/Immunologic Allergic/Immunologic: Denies throat swelling PFSH All Active Problems (Updated 12/23/22 @ 00:37 by Mehreen Simon DO) Lateral subluxation of right patella (Acute) Traumatic rupture of right quadriceps tendon (Acute) Acute pain of right knee (Acute) History of right knee surgery (Acute) Degenerative joint disease of right hip (Acute) Painful total knee replacement, right (Acute) Status post right knee replacement (Acute) Regurgitation and rechewing (Acute ~10/2021) 12/13/21 [facility] [place], gastric emptying scan ordered and consult with [facility] Lung nodule < 6cm on CT (Acute) LEWIS (dyspnea on exertion) (Acute) Paraesophageal hernia (Acute) Urinary incontinence (Acute) Vomiting (Acute) Fall (Acute) Rib pain on left side (Acute) Left shoulder pain (Acute) Iliotibial band syndrome of right side (Acute) Status post total right knee replacement (Acute 11/20/11) Anxiety and depression (Chronic 09/05/17) Anticoagulant long-term use (Acute) Cough (Acute) Wheeze (Acute) Hiatal hernia (Chronic) Adjustment disorder, unspecified (Acute 11/16/16) Atrial fibrillation (Chronic 01/22/18) Essential hypertension (Acute 04/28/16) Gastroesophageal reflux disease (Chronic 04/28/16) Due to Hiatial Hernia History of CVA (cerebrovascular accident) (Acute 10/24/15) Dry Stroke, 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) History of gallstones (Acute 04/28/16) Hyperlipidemia (Acute 04/28/16) Osteoporosis (Chronic 02/13/17) left hip T SCORE -3.3 Prolia inj q6m, first 01/2017, 02/25/21 Total T-Score: - 2.5 Hyperglycemia (Acute) Hypokalemia (Acute) Medical History Actinic keratosis [place] angioma Closed extra-articular fracture of distal end of right radius (01/31/17) Dehydration Episode of recurrent major depressive disorder (10/17/16) Gastroenteritis Hx of atrial fibrillation, no current medication (04/25/16) Pt was seen by a double end trimmer and was put on Metoprolol but mdication was stopped due to bradycardia. per Dr. Addison Shore 04/25/2016 Keratoacanthoma (~05/2022) DH Derm (Left trunk) Seborrheic keratoses Surgical History Cholecystectomy (01/10/18) Extraction of cataract H/O endoscopy (10/24/21) Open Carpal Tunnel release right S/P repair of paraesophageal hernia (08/15/21) [facility] [place] Thoracic total knee arthroplkasty (07/11/17) left knee arthroplasty Family History Mother Stroke Father Neoplasm Grandmother , CVA No problems noted. Brother Diabetes Brother Diabetes Brother Diabetes Brother Diabetes Brother Diabetes Brother Diabetes Social History Smoking/Tobacco Use Status: Former Tobacco Use Tobacco: How many years used: 25 Smoking risk assessment performed?: Yes Alcohol Intake: never Drug use: Never Substance use type: does not use Household members: none Number of Children: 4 Current gender identity: female What type of physical activity do you participate in: none Do you feel safe at home: Yes Exam Const General: cooperative and no acute distress Orientation: alert, awake and oriented x3 HENMT Head: normal to inspection Mouth: oral mucosae normal Eyes General: appearance normal, both eyes and all related structures Neck Neck: normal visual inspection Resp Effort & Inspection: normal respiratory effort and able to speak in complete sentences Cardio Rate: regular rate Skin General skin exam: no rashes or lesions noted Neuro General: patient alert, patient awake and patient oriented x3 Motor: muscle tone normal throughout Extrem Other: Right anterior knee seems slightly more warm to touch than left anterior knee. There is no significant erythema but mild edema to the right anterior knee. There is a surgical scar to the right anterior knee consistent with prior total knee replacement. There is no area of fluctuance or drainage. She is keeping her right knee flexed for comfort but is able to extend without significant pain. She has tender right ligament to the right medial groin which is worse with extension of hip and knee but no significant worsening of pain in this area with internal or external rotation. Right DP/PT pulses intact. Psych Appearance: grossly normal Affect: normal affect
[2022-12-21 05:28] VITALS: BP 198/79; PULSE 60; RESP 16; TEMP 36.9; O2SAT 99
--- NOTE | 2022-12-21 06:00 | DI.RAD_ITS ---
Exam(s) XR KNEE RT 3V AP,LAT,FERCHO EXAM: XR KNEE RT 3V AP,LAT,FERCHO CLINICAL HISTORY: R anterior knee pain, s/p fall, r/o fx. TECHNIQUE: 2D digital imaging was performed of the right knee. Three views obtained. AP, lateral an d PA tunnel views were obtained. COMPARISON: CR XR KNEE RT 3V AP,LAT,FERCHO from 07/21/2022 FINDINGS: BONES: No acute fracture is present. No bony destructive lesion is seen. The bones are osteopenic. JOINTS: The knee is normally aligned. There are postsurgical changes of a right total knee arthroplas ty. The orthopedic hardware appears in good position. SOFT TISSUE: There is mild edema in the soft tissues anterior to the knee. IMPRESSION: No acute abnormality. DATA REPOSITORY: RADIATION DOSE DELIVERED:
[2022-12-21] MEDS: oxyCODONE 5 MG TAB PO (06:30)
[2022-12-21 06:32] LABS: Abs Immature Grans 0.07 10^3/uL (0.0-0.06); Absolute Basophil Count 0.08 10^3/uL (0.0-0.2); Absolute Eosinophil Count 0.19 10^3/uL (0.0-0.7); Absolute Lymphocyte Count 0.92 10^3/uL (1.2-3.4); Absolute Monocyte Count 0.68 10^3/uL (0.1-0.8); Absolute Neutrophil Count 5.67 10^3/uL (1.2-6.7); Basophils % 1.1; Eosinophils % 2.5; HCT 40.9 % (36.0-46.0); HGB 13.1 g/dL (11.2-15.7); Immature Grans % 0.9; Lymphocytes % 12.1; MCH 28.8 pg (27.0-33.0); MCV 90 fL (80-95); MPV 8.9 fL (8.0-11.0); Monocytes % 8.9; Neutrophils % 74.5; Platelet Count 342 10^3/uL (130-400); RBC 4.55 10^6/uL (3.93-5.22); RDW 12.5 % (11.7-14.6); RDW-SD 40.9 fL; WBC 7.61 10^3/uL (4.4-10.8)
[2022-12-21] MEDS: ACETAMINOPHEN 1,000 MG/100 ML BTL 400 MG IVPB (06:36)
[2022-12-21 06:42] LABS: ALT 11 U/L (14-59); AST 13 U/L (15-37); Albumin 3.3 g/dL (3.4-5.0); Alkaline Phosphatase 69 U/L (46-116); Anion Gap 7.2 mmol/L (3-11); BUN 27 mg/dL (7-18); Bilirubin, Total 0.5 mg/dL (0.2-1.0); C-Reactive Protein 1.55 mg/dL (0.0-0.3); CO2 27.8 mmol/L (21.0-32.0); CREATININE 1.1 mg/dL (0.55-1.02); Calcium 8.4 mg/dL (8.5-10.1); Chloride 104 mmol/L (98-107); Estimated GFR 49.86 (mL/min/1.73m2); Glucose 89 mg/dL (74-106); Potassium 4.5 mmol/L (3.5-5.1); Sodium 139 mmol/L (136-145); Total Protein 6.4 g/dL (6.4-8.2)
--- NOTE | 2022-12-21 07:24 | DI.RAD_ITS ---
Exam(s) XR KNEES MERCHANT ONLY EXAM: XR KNEES MERCHANT ONLY CLINICAL HISTORY: pain anterior knee, h/o patella lateral release. TECHNIQUE: 2D digital imaging was performed of the left knee. One images were obtained. Merchant, views were obtained. COMPARISON: CR LEFT KNEE LIMITED 1 OR 2 VIEWS from 07/11/2017 FINDINGS: This is a limited examination consisting of only the Merchant view. There is normal alignment. The patient's left total knee arthroplasty is partially visualized. Ther e does appear to be mild soft tissue swelling. IMPRESSION: No acute abnormality. DATA REPOSITORY: RADIATION DOSE DELIVERED:
[2022-12-21 07:27] LABS: ESR 16 mm/hr (0-30)
--- NOTE | 2022-12-21 07:36 | DI.RAD_ITS ---
Exam(s) XR KNEES MERCHANT ONLY EXAM: XR KNEES MERCHANT ONLY CLINICAL HISTORY: R knee pain, s/p patella lateral release. TECHNIQUE: 2D digital imaging was performed of the right knee. One views obtained. Merchant, views were obtained. COMPARISON: CR XR KNEE RT 3V AP,LAT,FERCHO from 07/21/2022 FINDINGS: This is a limited examination consistent only of the Merchant view. There is lateral subluxation of the patella. No fractures identified. The patient's right total kne e replacement is incompletely imaged. There is soft tissue swelling around the knee. IMPRESSION: Lateral subluxation of the patella. Soft tissue swelling around the knee. DATA REPOSITORY: RADIATION DOSE DELIVERED:
--- NOTE | 2022-12-21 08:17 | DI.VRAD_ITS ---
PROCEDURE INFORMATION: Exam: XR Right Knee Exam date and time: 12/21/2022 6:52 AM Age: 82 years old Clinical indication: Injury or trauma; Blunt trauma; Right; Injury details: R anterior knee pain, S/P fall, R/O FX TECHNIQUE: Imaging protocol: Radiologic exam of the right knee. Views: 3 views. COMPARISON: CT LOWER EXTREMITY RT WO 08/02/2022 10:04 AM FINDINGS: Bones/joints: Intact arthroplasty in the with osteopenia but no acute fracture or hardware failure. Sclerosis of the patella. Mild prepatellar edema. No significant suprapatellar effusion. Soft tissues: Normal. IMPRESSION: No acute bony abnormality. Dictated and Authenticated by: Kali Nevarez MD. Ordering:SHARON Verde MD
--- NOTE | 2022-12-21 08:19 | OCONE_ITS ---
Date of service: 12/21/22 Time of Service: 08:19 History of Present Illness History of Present Illness Chief Complaint: Right Knee Pain Narrative: Linda is an 82-year-old who I know well from her right knee. She recently had a right hip injection last week for severe right hip arthritis. Unfortunate, this morning, early in the morning around 4 AM, she was ambulate to the bathroom when she felt she was unable to mobilize. She had pain in her right knee with dysfunction. She felt that she was unable to extend the knee. She did have a fall about 3 weeks ago when she fell onto the ice onto a hyperflexed right knee landing directly on the right knee. She has felt more unstable about the right side. In August 2022 I did perform a patellar revision for a laterally tilted and loose patellar component. She had done well from this. She was seen in the office prior to her hip injection had no complaints about her knee. However, after that fall she has had worsening pain. She continues have some pain and tightness of the groin. She does have some mild swelling to the right knee. She does not have any issues with the wound. No fevers no chills. Consults Consult date: 12/21/22 Requesting physician: Mehreen Simon Consult Reason Right Knee Pain Assessment and Plan Assessment and plan (1) Painful total knee replacement, right: Status: Acute (2) Traumatic rupture of right quadriceps tendon: Status: Acute Assessment and plan: Linda is a 82-year-old who presents the emergency department pain about her right knee. She has had multiple falls here recently. Unfortunately, she has a clear disruption of the quadriceps repair and the retinacular repair of the knee. This is allowed the patella to sublux completely laterally. I think this is related to her frequent falls. It is likely that 1 fall started the process and that has continued to worsen with subsequent falls. Her weakness this morning was likely related to the patella being laterally subluxed and unable to straighten the leg. At this point, she is likely to need a revision surgery. I discussed this with her. This would involve a retinacular quadriceps repair and potentially a prolonged period of time in straight leg immobilization. I was very honest with Linda that given the position of the kneecap I would strongly encourage the surgery which she wants to proceed with. For the time being, I would place into a knee immobilizer. She should wear this is much as possible. Try to keep the leg straight before she goes to get up out of a chair will be helpful. She does have an elevated CRP which she has had in the past. She has had previous infection work-ups which were negative for the knee. She has no other overt signs of infection. I did briefly review the revision surgery with her to include bleeding, infection, pain, stiffness, continued weakness, rerupture, need for repeat procedures, blood clot. Despite these risk, she would like to proceed. We will look for time the next week to get this done. She most likely will need to prolonged stay in the hospital and potentially to the rehab. Review of Systems All systems reviewed & are unremarkable except as noted in HPI and below PFSH All Active Problems (Updated 12/21/22 @ 09:26 by Alex Dixon MD) Traumatic rupture of right quadriceps tendon (Acute) Acute pain of right knee (Acute) History of right knee surgery (Acute) Degenerative joint disease of right hip (Acute) Painful total knee replacement, right (Acute) Status post right knee replacement (Acute) Regurgitation and rechewing (Acute ~10/2021) 12/13/21 [facility] GI, gastric emptying scan ordered and consult with [employer] Lung nodule < 6cm on CT (Acute) LEWIS (dyspnea on exertion) (Acute) Paraesophageal hernia (Acute) Urinary incontinence (Acute) Vomiting (Acute) Fall (Acute) Rib pain on left side (Acute) Left shoulder pain (Acute) Iliotibial band syndrome of right side (Acute) Status post total right knee replacement (Acute 11/20/11) Anxiety and depression (Chronic 09/05/17) Anticoagulant long-term use (Acute) Cough (Acute) Wheeze (Acute) Hiatal hernia (Chronic) Adjustment disorder, unspecified (Acute 11/16/16) Atrial fibrillation (Chronic 01/22/18) Essential hypertension (Acute 04/28/16) Gastroesophageal reflux disease (Chronic 04/28/16) Due to Hiatial Hernia History of CVA (cerebrovascular accident) (Acute 10/24/15) Dry Stroke, 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) History of gallstones (Acute 04/28/16) Hyperlipidemia (Acute 04/28/16) Osteoporosis (Chronic 02/13/17) left hip T SCORE -3.3 Prolia inj q6m, first 01/2017, 02/25/21 Total T-Score: - 2.5 Hyperglycemia (Acute) Hypokalemia (Acute) Medical History Actinic keratosis Burgos angioma Closed extra-articular fracture of distal end of right radius (01/31/17) Dehydration Episode of recurrent major depressive disorder (10/17/16) Gastroenteritis Hx of atrial fibrillation, no current medication (04/25/16) Pt was seen by a credit specialist and was put on Metoprolol but mdication was stopped due to bradycardia. per Dr. Addison Shore 04/25/2016 Keratoacanthoma (~05/2022) DH Derm (Left trunk) Seborrheic keratoses Surgical History Cholecystectomy (01/10/18) Extraction of cataract H/O endoscopy (10/24/21) Open Carpal Tunnel release right S/P repair of paraesophageal hernia (08/15/21) Giant [facility] Thoracic total knee arthroplkasty (07/11/17) left knee arthroplasty Family History Mother Stroke Father Neoplasm Grandmother , CVA No problems noted. Brother Diabetes Brother Diabetes Brother Diabetes Brother Diabetes Brother Diabetes Brother Diabetes Social History Smoking/Tobacco Use Status: Former Tobacco Use Tobacco: How many years used: 25 Smoking risk assessment performed?: Yes Alcohol Intake: never Drug use: Never Substance use type: does not use Household members: none Number of Children: 4 Current gender identity: female What type of physical activity do you participate in: none Do you feel safe at home: Yes Exam Narrative Exam Narrative: Resting in the hospital bed. No acute distress. Evaluation of the right knee shows a well-healed incision. No significant swelling. She is holding the knee in about 90 degrees of flexion which shows an obviously displaced patella. There is prominence of the medial aspect of the distal femur. With the leg extended there is a palpable defect of the medial quadriceps retinaculum. When she goes to straight leg raise there is an obvious lag of at least 20 degrees with movement and displacement of the vastus medialis see no need to scan. With pressure against the kneecap from a lateral to medial direction she is able to flex the knee. This gentle passive range of motion does not cause pain as long as the patella is kept centrally located. Sensation intact to light touch over the deep and superficial peroneal nerve and tibial nerve. Palpable DP and PT pulse. There is some pain of the groin and proximal thigh with internal and external rotation of the right hip. Results Last Vital Signs Temp 36.9 C 12/21/22 05:28 Pulse 60 12/21/22 05:28 Resp 16 12/21/22 05:28 BP 198/79 H 12/21/22 05:28 Pulse Ox 99 12/21/22 05:28 Labs 12/21/22 06:20 12/21/22 06:20 Labs: Laboratory Results - last 24 hr 12/21/22 12/21/22 12/21/22 06:20 06:20 06:20 WBC 7.61 RBC 4.55 Hgb 13.1 Hct 40.9 MCV 90 MCH 28.8 MCHC 32.0 RDW 12.5 Plt Count 342 MPV 8.9 Immature Gran % 0.9 Neutrophils % 74.5 Lymphocytes % 12.1 Monocytes % 8.9 Eosinophils % 2.5 Basophils % 1.1 Nucleated RBC % 0.0 Absolute Neutrophils 5.67 Absolute Lymphocytes 0.92 L Absolute Monocytes 0.68 Absolute Eosinophils 0.19 Absolute Basophils 0.08 ESR 16 Sodium 139 Potassium 4.5 Chloride 104 Carbon Dioxide 27.8 Anion Gap 7.2 BUN 27 H Creatinine 1.1 H Est GFR (CKD-EPI 2020) 49.86 Glucose 89 Calcium 8.4 L Total Bilirubin 0.5 AST 13 L ALT 11 L Alkaline Phosphatase 69 C-Reactive Protein 1.55 H Total Protein 6.4 Albumin 3.3 L Imaging Imaging Studies: X-ray of the right knee including merchant view shows some of the tibial and femoral components without significant change in position. No fracture. There is some lucency seen over the medial aspect of the tibia which is largely unchanged from previous x-rays. The merchant view shows a laterally subluxed and tilted patella with obvious disruption of the medial retinacular tissues.
[2022-12-21 08:20] VITALS: BP 172/88; PULSE 59; RESP 16; TEMP 37.1; O2SAT 99
[2022-12-21 08:23] VITALS: BP 172/88; PULSE 59; RESP 20; TEMP 37.1; O2SAT 99
--- NOTE | 2022-12-21 08:35 | DI.VRAD_ITS ---
PROCEDURE INFORMATION: Exam: XR Left Knee Exam date and time: 12/21/2022 7:36 AM Age: 82 years old Clinical indication: Pain; Knee; Left; Patient HX: S/P fall; Additional info: R anterior knee pain, S/P fall, R/O FX TECHNIQUE: Imaging protocol: Radiologic exam of the left knee. Views: 1 or 2 views. COMPARISON: CR XR KNEES MERCHANT ONLY 12/21/2022 7:20 AM FINDINGS: Bones/joints: Single view only. Knee arthroplasty hardware noted. There is lateral patellar subluxation. No fracture seen. Soft tissues: Unremarkable. IMPRESSION: Lateral patellar subluxation. Dictated and Authenticated by: Abraham Lloyd MD. Ordering:SHARON Verde MD
--- NOTE | 2022-12-21 08:56 | DI.VRAD_ITS ---
PROCEDURE INFORMATION: Exam: XR Right Knee Exam date and time: 12/21/2022 7:20 AM Age: 82 years old Clinical indication: Pain; Knee; Right; Patient HX: S/P fall; Additional info: R anterior knee pain, S/P fall, R/O FX TECHNIQUE: Imaging protocol: Radiologic exam of the right knee. Views: 1 or 2 views. COMPARISON: CR XR KNEE RT 3V AP,LAT,FERCHO 12/21/2022 6:52 AM FINDINGS: Bones/joints: A single sunrise view of the patella was obtained. The examination shows the presence of a knee prosthesis. No fracture or other acute abnormality is seen. Soft tissues: There is mild prepatellar soft tissue swelling. IMPRESSION: Soft tissue swelling. No acute bony abnormality. Dictated and Authenticated by: Richi Membreno MD. Ordering:SHARON Verde MD
== END 2022-12-21 08:34 | disposition home or self-care (01) ==
PROVIDERS: Emergency Provider Physician Assistant; PCP Nurse Practitioner
DX: T84.84XA Pain due to internal orthopedic prosthetic devices, implants and grafts, initial encounter (principal); Z96.651 Presence of right artificial knee joint; S83.011A Lateral subluxation of right patella, initial encounter; W22.8XXA Striking against or struck by other objects, initial encounter; W19.XXXA Unspecified fall, initial encounter; I10 Essential (primary) hypertension
CPT/HCPCS: 36415; 73562; 73565; 80053; 85652; 96374; 99284; 85025; 86140; J0131

== ENCOUNTER 2022-12-29 07:29 | Inpatient (IN) | payer MEDICARE, SELFPAY ==
[2022-12-29] VITALS (10 sets, daily range): BP systolic 163–197; BP diastolic 55–88; PULSE 55–75; RESP 11–20; TEMP 36–37.2; O2SAT 95–99; BMI 28.5
--- NOTE | 2022-12-29 06:45 | W.ANESPRE ---
General Info Date of Service Date Performed: 12/29/22 Height: 4 ft 11 in Weight: 63.957 kg Body Mass Index (BMI): 28.5 Surgical Procedure: Operation Date: 12/29/22 12:10 Proposed Procedure Side Surgeon p Ruptured Quad Tendon Repair Right Alex Dixon MD Meds Allergies and Home Medications Allergies Allergy/AdvReac Type Severity Reaction Status Date / Time Penicillins Allergy Unknown Swelling/Ed Verified 12/29/22 08:55 bobo/Itching ciprofloxacin [From Cipro] AdvReac Intermediate Dizziness/L Verified 12/29/22 08:55 ighthead Sulfa (Sulfonamide AdvReac Unknown GI symptoms Verified 12/29/22 08:55 Antibiotics) Home Medication Medication Instructions Recorded calcium-vitamin D3-vitamin K 500 1 ea PO DAILY 11/16/16 mg-1,000 unit-40 mcg chewable tablet denosumab 60 mg/mL subcutaneous 60 mg SQ [id number] 11/16/16 syringe (Prolia) fluticasone fur. 100 mcg-umeclid 1 inh inhalation DAILY 07/21/21 62.5 mcg-vilant 25 mcg inhalat.powder (Trelegy Ellipta) fenofibrate nanocrystallized 48 mg See Rx Instructions .Route 03/06/22 tablet .COMPLEX #90 tabs metoprolol succinate 50 mg See Rx Instructions .Route 03/06/22 tablet,extended release 24 hr .COMPLEX #90 tabs apixaban 2.5 mg tablet 2.5 mg PO BID #180 tabs 08/24/22 acetaminophen 500 mg tablet 500 mg PO Q6H PRN pain #60 tabs 09/06/22 prochlorperazine maleate 10 mg See Rx Instructions .Route 09/06/22 tablet .COMPLEX #30 tabs fluticasone furoate 200 See Rx Instructions .Route 09/26/22 mcg-vilanterol 25 mcg/dose .COMPLEX #180 blisters inhalation powder (Breo Ellipta) citalopram 20 mg tablet 20 mg PO DAILY #90 tab-caps 09/28/22 albuterol sulfate 90 mcg/actuation See Rx Instructions .Route 11/09/22 aerosol inhaler (Ventolin HFA) .COMPLEX #18 grams omeprazole 40 mg capsule,delayed See Rx Instructions .Route 12/04/22 release .COMPLEX #180 caps bupropion HCl 150 mg 24 hr tablet, See Rx Instructions .Route 12/26/22 extended release .COMPLEX #90 tabs Current Visit Medications: Current Medications Generic Name Dose Route Start Last Admin Trade Name Claudia PRN Reason Stop Dose Admin Acetaminophen 1,000 mg 12/29/22 06:00 Acetaminophen 500 Mg Tab PO 12/29/22 16:00 PREOP MICHAEL Celecoxib 400 mg 12/29/22 06:00 Celecoxib 200 Mg Cap PO 12/29/22 16:00 PREOP MICHAEL Gabapentin 300 mg 12/29/22 06:00 Gabapentin 300 Mg Cap PO 12/29/22 16:00 PREOP MICHAEL Ringer's Solution 1,000 mls @ 80 mls/hr 12/29/22 06:00 IV 12/29/22 23:59 INFUSION MICHAEL Cefazolin Sodium/Dextrose 2 gm in 50 mls @ 100 mls/hr 12/29/22 06:00 Ancef Duplex IVPB 12/29/22 23:59 PREOP MICHAEL Tranexamic Acid 1,000 mg/ 60 mls @ 360 mls/hr 12/29/22 06:00 Sodium Chloride IVPB 12/29/22 16:00 PREOP [facility] IV Miscellaneous Supplies 1 each 12/29/22 06:00 Iv Access IV 12/29/22 23:59 DIRECTED MICHAEL Sodium Chloride 0 ml 12/29/22 06:00 Normal Saline Flush 10 Ml Syr IV 12/29/22 23:59 PRN PRN Sodium Chloride 0 ml 12/29/22 06:00 Normal Saline 10 Ml Vial IJ 12/29/22 23:59 DIRECTED PRN Sterile Water 0 ml 12/29/22 06:00 Water,Injection,Sterile 10 Ml Vial IJ 12/29/22 23:59 DIRECTED PRN PFSH Active Problems Active Problems: Problem Status Onset Code Lateral subluxation of right patella S83.011A Traumatic rupture of right quadriceps tendon S76.111A Acute pain of right knee M25.561 History of right knee surgery Z98.890 Degenerative joint disease of right hip M16.11 Painful total knee replacement, right T84.84XA, Z96.651 Status post right knee replacement Z96.651 Regurgitation and rechewing ~10/2021 R11.10 Lung nodule < 6cm on CT R91.1 LEWIS (dyspnea on exertion) R06.00 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19 Hyperlipidemia 04/28/16 E78.5 Osteoporosis 02/13/17 M81.0 Hyperglycemia R73.9 Hypokalemia E87.6 Medical History Medical History Actinic keratosis Burgos angioma Closed extra-articular fracture of distal end of right radius (01/31/17) Dehydration Episode of recurrent major depressive disorder (10/17/16) Gastroenteritis Hx of atrial fibrillation, no current medication (04/25/16) Pt was seen by a barrel roller and was put on Metoprolol but mdication was stopped due to bradycardia. per Dr. Addison Shore 04/25/2016 Keratoacanthoma (~05/2022) DH Derm (Left trunk) Seborrheic keratoses Medical History Comments:: Last knee surgery, anesthesia or pain meds made her loopy, people are trying to kill me. Surgical History Surgical History Cholecystectomy (01/10/18) Extraction of cataract H/O endoscopy (10/24/21) Open Carpal Tunnel release right S/P repair of paraesophageal hernia (08/15/21) Giant [facility] Thoracic total knee arthroplkasty (07/11/17) left knee arthroplasty Tobacco Smoking/Tobacco Use Status: Former Tobacco Use Alcohol Alcohol Intake: never Substance Use Substance use: Never Substance use type: does not use Vital Signs and Lab Results Lab Results Blood Type / Crossmatch: No Data to Display Complete Blood Count: White Blood Count 7.61 10^3/uL (4.4-10.8) 12/21/22 06:20 Red Blood Count 4.55 10^6/uL (3.93-5.22) 12/21/22 06:20 Hemoglobin 13.1 g/dL (11.2-15.7) 12/21/22 06:20 Hematocrit 40.9 % (36.0-46.0) 12/21/22 06:20 Platelet Count 342 10^3/uL (130-400) 12/21/22 06:20 Complete Metabolic Panel: Sodium 139 mmol/L (136-145) 12/21/22 06:20 Potassium 4.5 mmol/L (3.5-5.1) 12/21/22 06:20 Chloride 104 mmol/L (98-107) 12/21/22 06:20 Carbon Dioxide 27.8 mmol/L (21.0-32.0) 12/21/22 06:20 BUN 27 mg/dL (7-18) H 12/21/22 06:20 Creatinine 1.1 mg/dL (0.55-1.02) H 12/21/22 06:20 Est GFR (CKD-EPI 2020) 49.86 (mL/min/1.73m2) 12/21/22 06:20 Calcium 8.4 mg/dL (8.5-10.1) L 12/21/22 06:20 Albumin 3.3 g/dL (3.4-5.0) L 12/21/22 06:20 Glucose 89 mg/dL (74-106) 12/21/22 06:20 C-Reactive Protein 1.55 mg/dL (0.0-0.3) H 12/21/22 06:20 Liver Function Panel: Alanine Aminotransferase (ALT/SGPT) 11 U/L (14-59) L 12/21/22 06:20 Aspartate Amino Transf (AST/SGOT) 13 U/L (15-37) L 12/21/22 06:20 Coagulation Panel: No Data to Display Cardiac Panel: No Data to Display Arterial Blood Gas: No Data to Display Venous Blood Gas: No Data to Display Pancreas Panel: No Data to Display Thyroid Panel: No Data to Display Infectious Disease: No Data to Display Blood Cultures: No Data to Display Toxicology Panel: No Data to Display Imaging and Studies Imaging and Studies Study information below may be from another EMR and interpreted by another provider. Please see original notes in EMR for more complete details. EKG Summary: 08/19: sinus. Stress Test Summary: 06/18: Stress ECG Conclusion 1. Resting electrocardiogram showed poor R wave progression 2. Patient underwent pharmacologic stress with regadenoson 3. Peak heart rate was 62% of maximal predicted for age 4. Electrocardiographically the test was nondiagnostic due to inadequate heart rate 5. There were no significant dysrhythmias MPI Conclusion Suboptimal, nondiagnostic Cardiac Catheterization Summary: The patient had coronary CTA performed at [facility] on August 05. This showed only mild nonobstructive coronary disease. The proximal left anterior descending had a less than 50% area of stenosis. The circumflex and right coronary arteries had no significant findings. Coronary artery calcium score was 18. Based on this, the patient has no significant obstructive CAD and I would consider her a below average risk candidate from the cardiac standpoint for proposed surgical repair of paraesophageal hernia This will be conveyed to her surgeon Dr. Marroquin at [facility] No additional preoperative cardiac testing is currently indicated Addendum dictated by Lizzette Mccarty M.D. 08/09/21 1526 Anesthesia Assessment and Plan Anesthesia History Personal History: Other Family History: Family History Unknown Exercise Tolerance Exercise Tolerance: Metabolic Equivalents>4 Pertinent Negatives Pertinent Negatives: No Symptoms of GERD (No active symptoms today) and No Major Pulmonary Symptoms or Complaints Cardiac & Pulmonary Exam Cardiac Exam: Normal S1/S2 Heart Sounds Pulmonary Exam: Clear Bilateral Breath Sounds Implantable Cardiac Device Does patient have a Pacemaker or an ICD?: No Airway Exam Known Difficult Airway: No Mallampati Class: 1 Mouth Opening: Normal (> 3cm) Thyromental Distance: Greater than 3 cm Neck Range of Motion: Limited ROM Neck Circumference: Normal Teeth Condition: Edentulous ASA Classification ASA Score: ASA 3 Emergency Case?: No NPO Status NPO Status: NPO Clears >2 hours, Solids >8 hours Anesthesia Plan Resuscitation Status: Full Code Anesthesia Technique: General Anesthesia Airway Planned: Endotracheal Tube Monitors Used: Standard Monitors Preoperative Comments:: 82 yo female with ruptured quad tendon to the OR for repair. Sig PMHx: GERD/hiatal hernia (omeprazole), asthma (albuterol, trelegy, breo), LEWIS/lung nodule, afib (metoprolol, apixaban), anxiety (bupropion, citalopram), Previous Anes: - TKA, spinal, prop sedation. - lap arlen, glide grade 1. RSId due to GERD. - TKA revision, LMA 3, rajani given for frequent involuntary movement.
[2022-12-29] MEDS: Acetaminophen 500 MG TAB 1000 MG PO (11:01)
[2022-12-29] MEDS: Celecoxib 200 MG CAP 400 MG PO (11:01)
[2022-12-29] MEDS: Gabapentin 300 MG CAP PO ×2 (11:02→21:16)
[2022-12-29] MEDS: Lactated Ringers 1,000 ML 80 ML IV ×2 (11:32→21:02)
[2022-12-29] MEDS: ceFAZolin 2 GM/50 ML BAG IVPB (12:34)
--- NOTE | 2022-12-29 14:45 | W.ANESPOSTOP ---
Postoperative Evaluation Date, Time and Location Date Performed: 12/29/22 Time Performed: 14:45 Patient Location: PACU Vital Signs Most Recent Imported Vital Signs: Most Recent Vital Signs Temp Pulse Resp BP Pulse Ox 36 C L 57 L 12 179/65 H 99 12/29/22 14:31 12/29/22 14:31 12/29/22 14:31 12/29/22 14:31 12/29/22 14:31 Pain Score Most Recent Pain Score: Most Recent Pain Score Pain Level 3 12/29/22 09:04 Assessment Mental Status: Awake (Alert & Oriented to Patient Baseline) Airway and Respiratory Function: Patent airway with normal (patient baseline) respiratory exam Cardiovascular Function: Hemodynamically Stable Hydration Status: Adequately Hydrated Nausea & Vomiting: No Nausea or Vomiting Pain: Pain is tolerable per patient Peripheral Nerve Block: Patient did not receive a nerve block
--- NOTE | 2022-12-29 15:03 | ROE_ITS ---
Date of service: 12/29/22 Time of Service: 14:30 Operative Note Operative Note DATE OF PROCEDURE: 12/29/22 PRE-OP DIAGNOSIS: Right Quadriceps and Retinacular Rupture POST-OP DIAGNOSIS: same PROCEDURE: RIGHT Knee Open Repair of Quadriceps and Retinacular Tear, Long Leg Casting SURGEON: Alex Dixon IMMIGRATION LAW SPECIALIST: Estella Erickson ANESTHESIA TYPE: General LMA/ETT Refer to Anesthesia Record ESTIMATED BLOOD LOSS: 50 TOURNIQUET TIME: 0 COMPLICATIONS: None Patient was transported to: PACU Patient's condition: stable Indications: Linda is an 82-year-old who I have seen previously for a painful total knee replacement. She was found to have a displaced, loose, malposition patellar component and underwent a revision. She did well initially from this but had multiple falls at home. And presenting for follow-up there is a clear change in her function and obvious defect of her quadriceps and retinacular repair. Given this failure and her multiple falls I recommended a repair of the quadriceps and the retinaculum followed by extension casting or bracing. I discussed the technical features of the case. I reviewed the risk to include bleeding, infection, pain, stiffness, damage to nerves and vessels, damage to muscle and tendons, retear or failure of repair, blood clot, wound or skin breakdown, cast complications. Despite these risks, she elects to proceed. Findings: There is a clear defect of her retinacular repair with some tearing and disruption of the insertional fibers adjacent to the medial patella. There is a thickened pseudocapsule or falx tendon which was incorporated into the repair. She was placed into a long-leg cast and 10 to 15 degrees of extension. Procedure Description: Linda was greeted in the preoperative holding area where the correct side was identified and marked. The consent was reviewed with the patient and signed. The history and physical was updated. All questions were answered. Preoperative mediacations were administered: Acetaminophen 1000mg, Celebrex 400mg, and Gabapentin 300mg. Linda was taken back to the operating room. A general anesthestic was administered. The patient was placed into the supine position on the operating room table. Posts were placed for positioning during the procedure. All bony prominences were well padded. Prophylactic antibiotics in the form of Cefazolin were administered. The left leg was then prepped with Chloraprep and draped in a standard fashion with impervious stockinette. A second prep with Chloraprep was performed prior to application of Iodine impregnated skin protection. A timeout to confirm correct identity, side and site, procedure, allergies, anesthesia, and medical concerns was performed. With the knee in some flexion, a midline incision was made overlying the knee utilizing the previous incision. Full thickness skin flaps were raised once the extensor mechanism was encountered. These were raised medially and laterally. There is an obvious defect of the quadriceps repair in the arthrotomy with a chu of joint fluid. Any bleeding was controlled with electrocautery. Medial and lateral skin flaps were raised to fully evaluate the extensor mechanism. The defect was quite obvious. It ended about the midportion of patella with maybe some slight diastases at that level but by the inferior portion of the patella there was no defect. There was some irregularity of the fibers adjacent to the patella as it had pulled off the patella in this location. The proximal extent went through the quadriceps split and into the vastus lateralis. Using a curette and rongeur a debrided down any of the early scar formation to show tendinous material. Once the tendon was encountered it was able to be easily mobilized back over without significant tension and at 90 degrees of flexion. There was a significant pseudocapsule or false tendon which was preserved. Using a Bovie and a Sierra elevator I released any adhesions from the undersurface of the vastus medialis and lateralis to allow mobilization. I debrided the knee of some synovitis with a rongeur. The knee was thoroughly irrigated with Surgiphor Betadine solution. Once again, debridement was performed of any synovitis around the arthrotomy site and quadriceps repair site. The Betadine solution was then thoroughly irrigated with saline. The periosteal and capsular tissues were then systematically injected with a periarticular cocktail consisting of 50cc mixture of ropivacaine, epinephrine, clonidine, and ketorolac. A pants over vest type repair was then performed. Using multiple #2 FiberWire a double row type configuration was placed. The first set of sutures were placed through the edge of the lateral arthrotomy and quadriceps and then through the lateral edge of the medial portion in order to overlap the tissues. These were placed and once all have been placed tied sequentially. Prior to closure of the sutures the patellar positioning was investigated at 90 degrees. It did show some persistent mild lateral tilt and therefore I performed a partial lateral release which did help free up some of the lateral type tissue. These initial sutures were then tied with excellent approximation of the tissues. The free edge of the lateral tissues now were secured with #2 FiberWire in [id number]. This was all done with the knee at 90 degrees of flexion. Once again the soft tissues were thoroughly irrigated with Betadine solution and allowed to sit in the knee for 3 minutes. This was then irrigated with saline. There was no significant bleeding. Deep tissues were then reapproximated with 0 Vicryl and 2-0 Monocryl. The skin was closed with roula. The wound was then dressed with a Mepilex silver dressing followed by Webril. A long-leg extension cast was then placed ensuring significant padding at the proximal cuff as well as around the heel. I did place an ABD around the heel to minimize potential for skin breakdown. Linda has a gaurded prognosis. Her baseline dose of Eliquis will be used for DVT prophylaxis. She will be admitted for inpatient admission given her multiple medical comorbidities and her frequent falls. She will need intensive physical therapy to work on ambulation with her long-leg cast. She is weightbearing as tolerated with the cast in position.
--- NOTE | 2022-12-29 15:45 | IN_ITS ---
PT Notes Visit Reasons: Right Ruptured Quad Tendon; s/p Right TKA Inpatient Physical Therapy Evaluation Date: December 30, 2023 Referring Doctor: Dr. Alex Dixon PT Orders: PT CONSULT: Status post Ortho surgery Precautions: Weightbearing as tolerated with three-quarter leg cast. Fall risk Patient Profile/Admitting Diagnosis: Patient is an 82-year-old female who underwent quad tendon repair performed Dr. Alex Dixon on this date. Patient had a total knee revision in October 2022 and suffered subsequent fall onto her knee. Has been dealing with multiple weeks of discomfort in declining function until was seen by Ortho when they confirmed her quad tear. PMHX: PFSH All Active Problems?(Updated 12/21/22 @ 09:26 by Alex Dixon MD) Traumatic rupture of right quadriceps tendon (Acute) Acute pain of right knee (Acute) History of right knee surgery (Acute) Degenerative joint disease of right hip (Acute) Painful total knee replacement, right (Acute) Status post right knee replacement (Acute) Regurgitation and rechewing (Acute ~10/2021) 12/13/21 [facility] [place], gastric emptying scan ordered and consult with NutritionistLung nodule < 6cm on CT (Acute) LEWIS (dyspnea on exertion) (Acute) Paraesophageal hernia (Acute) Urinary incontinence (Acute) Vomiting (Acute) Fall (Acute) Rib pain on left side (Acute) Left shoulder pain (Acute) Iliotibial band syndrome of right side (Acute) Status post total right knee replacement (Acute 11/20/11) Anxiety and depression (Chronic 09/05/17) Anticoagulant long-term use (Acute) Cough (Acute) Wheeze (Acute) Hiatal hernia (Chronic) Adjustment disorder, unspecified (Acute 11/16/16) Atrial fibrillation (Chronic 01/22/18) Essential hypertension (Acute 04/28/16) Gastroesophageal reflux disease (Chronic 04/28/16) Due to Hiatial Hernia History of CVA (cerebrovascular accident) (Acute 10/24/15) Dry Stroke, 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 Actinic keratosis Burgos angioma Closed extra-articular fracture of distal end of right radius (01/31/17) Dehydration Episode of recurrent major depressive disorder (10/17/16) Gastroenteritis Hx of atrial fibrillation, no current medication (04/25/16) Pt was seen by a furniture mover and was put on Metoprolol but mdication was stopped due to bradycardia. per Dr. Addison Shore 04/25/2016 Keratoacanthoma (~05/2022) Derm (Left trunk)Seborrheic keratoses Surgical History? Cholecystectomy (01/10/18) Extraction of cataract H/O endoscopy (10/24/21) Open Carpal Tunnel release rightS/P repair of paraesophageal hernia (08/15/21) Giant [facility] [place] Thoracictotal knee arthroplkasty (07/11/17) left knee arthroplasty Social History/Home Situation: Lives alone at the [facility] in apartments. Second floor with elevator access. Premorbid functional status with ambulation community distances with front wheeled walker and 4 wheeled walker. Daughter was present for evaluation. She is resides in [place]. Current Functional Limitations: Bed mobility, transfer capabilities, ambulation limitation, unable to perform stair negotiation Equipment Owned/DME: Four-wheel walker Subjective: Patient states she is holding up fairly well. Does feel little lightheaded after coming out of surgery. Rates her pain 2-10/30/09 Objective: General Observation: Three-quarter leg cast exposing 5 toes stopping mid thigh. IV dorsum hand Mental Status: Alert and oriented x3 Pain: 2/10 ROM: Right Upper Extremity: Glenohumeral joint flexion 115 degrees active versus 130 active assisted, elbow flexion and extension within normal limits. Approximates fingertips to palmar creases Left Upper Extremity: Glenohumeral joint flexion 110 degrees active versus 125 active assisted, elbow flexion extension within normal limits. Approximate fi ngertips to palmar crease. Right Lower Extremity: Not tested secondary to immobilizer Left Lower Extremity: Left hip flexion 105 degrees, knee flexion and extension within functional limits pain-free. Ankle dorsiflexion plantarflexion within functional limits Strength: Right Upper Extremity: 4 -/5 flexion and abduction glenohumeral joint, 4/5 internal rotation, 4 -/5 external rotation, bicep and tricep 4/5. Good buggy ladle tender Left Upper Extremity: 4/5 flexion and abduction glenohumeral joint, 4/5 internal and external rotation, biceps and triceps 4/5. Good buggy ladle tender. Right Lower Extremity: Not tested Left Lower Extremity: Hip flexion 4/5, able to perform straight leg raises 0 degree lag, quad 4/5, hamstring 4 -/5, ankle dorsiflexion plantarflexion 4/5, hip adduction 4/5, hip AB duction 4 -/5 Sensation: Patient reports no sensation light touch throughout toes with 1?5 right lower extremity. Intact throughout left lower extremity. Bed Mobility/Transfers: Bed mobility with min assist x1 Supine to sit min assist x1 Sit to stand min assist x1 to front wheeled walker Stand to sit bed side min assist x1 from front wheel walker Sit to supine mod assist x1 for positioning of right lower extremity. Gait: Gait not performed today. Patient stood approximately a 1-1/2 minutes and suffered a bout of lightheadedness and dizziness that subsided as soon as she sat down. Balance: Static Sitting: Fair Dynamic Sitting: Fair Static Standing: Poor Dynamic Standing: Poor Special Tests: Mobility Limitations Standardized Measure [facility] AM-PAC 6 clicks Basic Mobility Inpatient Short Form: Raw Score: 19 standardized Score: CMS Score: 42% Informed Consent/Education: Patient instructed in purpose of PT consult and plan of care. Assessment: Patient is a 82 femaleyear old referred to physical therapy services with the diagnosis of status post right quad tendon repair. Patient presents with clinical signs and symptoms consistent with above diagnosis, as de monstrated by the following impairment level findings: Joint mobility, motor function, muscle performance and range of motion associated with soft tissue surgery. Impairments are contributing to the following functional limitations: AMPAC score. Patient is assessed as a X Low 45550 [] Moderate 56521 [] High 03380 complexity based on the following: History: See above Examination: See above Presentation: Low Decision Making: AM-PAC score Goals: Goals X1 week 1. Supine-Sit : Independent 2. Sit-Supine: Independent 3. Sit-Stand :SBA assist to front wheel walker 4. Stand-Sit: Independent 5. Bed-Chair: SBA with use of front wheel walker 6. Chair-Bed: SBA with use of front wheel walker 7. Gait: 100 feet SBA with use of front wheel walker 8. Stairs: Patient negotiate 3 steps with handrail and standby assist Plan of Care/Treatment Plan: 1-2x/day, 7 days/week x 1 week. Plan of care has been reviewed with the COAL MINE INSPECTOR providing the service under Physical Therapy direction. Initiate Physical Therapy intervention for strengthening, bed mobility, transfers, gait, stairs, balance training, use of assistive device. DISCHARGE RECOMMENDATIONS: [] Home with no services [] [] Home with services [specify] [] Home with outpatient PT [] X SNF for continued rehabilitation: Further rehabilitation for functional mobility training strength, endurance cardiovascular and gait/proprioception training activities [] Cold Saw Operator Care [] [] SNF versus LTC based on ability to participate and progress [] TREATMENT CODE/TIME: 30 minutes direct one-on-one care 3 40?4 10 initial evaluation [id number] Houston Pruitt PT, DPT Disclaimer: This note was created using Quarterly voice recognition software. It was reviewed for major content. However, there may be multiple small discrepancies and errors due to the voice recognition aspects of the software.
[2022-12-29] MEDS: Acetaminophen 500 MG TAB PO ×2 (17:32→20:53)
[2022-12-29] MEDS: Budesonide/Formoterol 160/4.5 6 GM 60 PUFF INH IH (19:22)
[2022-12-29] MEDS: Omeprazole 20 MG CAPCR 40 MG PO (20:52)
[2022-12-29] MEDS: Celecoxib 200 MG CAP PO (20:53)
[2022-12-29] MEDS: ceFAZolin 1 GM/50 ML BAG IVPB (20:54)
[2022-12-29] MEDS: traMADol 50 MG TAB PO (23:08)
[2022-12-30 03:10] VITALS: BP 189/86; PULSE 64; RESP 20; TEMP 36.6; O2SAT 97
[2022-12-30] MEDS: ceFAZolin 1 GM/50 ML BAG IVPB ×2 (04:57→11:41)
[2022-12-30] MEDS: Ketorolac 15 MG/ML VIAL IVP ×2 (05:01→18:29)
[2022-12-30] MEDS: Normal Saline Flush 10 ML SYR IV (05:02)
[2022-12-30] MEDS: Lactated Ringers 500 ML IV (06:02)
[2022-12-30 06:55] LABS: HCT 35.2 % (36.0-46.0); HGB 11.5 g/dL (11.2-15.7); MCH 29.1 pg (27.0-33.0); MCHC 32.7 % (32.0-36.0); MCV 89 fL (80-95); MPV 9.4 fL (8.0-11.0); Platelet Count 255 10^3/uL (130-400); RBC 3.95 10^6/uL (3.93-5.22); RDW 12.4 % (11.7-14.6); RDW-SD 40.6 fL; WBC 7.19 10^3/uL (4.4-10.8)
[2022-12-30 07:17] LABS: Anion Gap 7.7 mmol/L (3-11); BUN 34 mg/dL (7-18); CO2 27.3 mmol/L (21.0-32.0); CREATININE 1.4 mg/dL (0.55-1.02); Calcium 8.4 mg/dL (8.5-10.1); Chloride 104 mmol/L (98-107); Estimated GFR 37.33 (mL/min/1.73m2); Glucose 128 mg/dL (74-106); Potassium 3.6 mmol/L (3.5-5.1); Sodium 139 mmol/L (136-145)
[2022-12-30] MEDS: Budesonide/Formoterol 160/4.5 6 GM 60 PUFF INH IH ×2 (08:17→19:34)
[2022-12-30] MEDS: buPROPion-XL 150 MG TABCR PO (08:42)
[2022-12-30] MEDS: Apixaban 2.5 MG TAB PO ×2 (08:42→19:40)
[2022-12-30] MEDS: Omeprazole 20 MG CAPCR 40 MG PO ×2 (08:43→19:39)
[2022-12-30] MEDS: Citalopram 20 MG TAB PO (08:43)
[2022-12-30] MEDS: Metoprolol CR 50 MG TABCR PO (08:43)
[2022-12-30] MEDS: traMADol 50 MG TAB PO ×2 (08:44→19:39)
[2022-12-30] MEDS: Acetaminophen 500 MG TAB PO ×4 (08:46→19:40)
[2022-12-30 08:50] VITALS: BP 169/71; PULSE 72; RESP 12; TEMP 36.9; O2SAT 96
[2022-12-30] MEDS: Normal Saline Flush 10 ML SYR ×2 (08:50→11:41)
[2022-12-30 10:32] VITALS: BP 178/89; PULSE 68; RESP 12; O2SAT 96
--- NOTE | 2022-12-30 11:12 | PT.INTREAT ---
Date of service: 12/30/22 Time of Service: 09:58 PT Notes Visit Reasons: Right Ruptured Quad Tendon; s/p Right TKA Inpatient Physical Therapy Treatment Note [facility] Date: 12/30/2022 PRECAUTIONS: Fall, WBAT R LE, Activity as tolerated SUBJECTIVE: Linda is pleasant and agreeable to participating in PT. She reports that she feels she needs SNF-level placement before returning to her home, as she does not feel she can safely manage at home alone following her surgery. OBJECTIVE: PAIN: Patient c/o R knee pain with transfers BED MOBILITY/TRANSFERS Supine-sit: SBA Sit-stand: CGA Stand-sit: CGA GAIT Assistive Device: FWW Weight bearing: WBAT R LE Assist: CGA - Min A Distance: 20' Deviation: Instruction for gait mechanics/FWW management/pacing for safety THEREX: Patient was instructed in a L LE strengthening program, completed in a long-sitting position, to include: ankle pumps (bilateral), quad sets, glute sets, hip abduction and SLR. ASSESSMENT/PLAN: Patient tolerated session well, although with some c/o pain over R knee with transfers. She was able to tolerate a progression in gait distance, however, demonstrates quick pacing, leading to unsteady gait. With instruction, patient is able to achieve steady gait and pacing with instructions to take standing rests and cueing throughout for appropriate FWW management. Patient would benefit from ST SNF-level rehab for continued gait and transfer training for improved safety with mobility, prior to returning to home where she lives independently. TREATMENT CODE/TIME: 26 minutes; 06939, [id number] (09:58)
--- NOTE | 2022-12-30 12:35 | W.PM.PROGNOT ---
Date of Service Date of service: 12/30/22 Time of Service: 12:00 Assessment and Plan Assessment and plan (1) Traumatic rupture of right quadriceps tendon: Status: Acute Assessment and plan: Linda is POD#1 status post repair of her quadriceps and retinacular rupture. She is in a long-leg cast. So far she is tolerating it well. We will take a significant amount of acclamation. Is imperative that she works diligent with physical therapy to regain some confidence with walking and with transferring with a cast. She will require rehabilitation on discharge due to her frequent falls, gait instability, and current treatment for her right knee. Urine output has been sluggish and therefore I will do a series of boluses as needed to follow urine output. We will keep the catheter in position to follow urine output more closely. Her creatinine is roughly at her baseline this morning but I will check it again this afternoon. (2) Falls frequently: Status: Acute Subjective Subjective Interval history since last seen: Linda reports to be doing well. She was able to work with physical therapy but still reports being quite unsteady on her feet. She has had some pain although mild and controlled with medications. Her urine output has been quite sluggish and a Rios catheter was placed earlier this morning due to low urine output. No chest pain or shortness of breath. She is tolerating regular diet. Exam Narrative Exam Narrative: Sitting in the chair having lunch. Alert and oriented x3. Evaluation of the right lower extremity shows a cast in position. This cast appears to be in good position. Toes are warm and well-perfused. Objective Laboratory Results - last 24 hr 12/30/22 12/30/22 06:30 06:30 WBC 7.19 RBC 3.95 Hgb 11.5 Hct 35.2 L MCV 89 MCH 29.1 MCHC 32.7 RDW 12.4 Plt Count 255 MPV 9.4 Sodium 139 Potassium 3.6 Chloride 104 Carbon Dioxide 27.3 Anion Gap 7.7 BUN 34 H Creatinine 1.4 H Est GFR (CKD-EPI 2020) 37.33 Glucose 128 H Calcium 8.4 L COVID-19 Source SARS-CoV-2 (PCR) Time Spent with Patient Time Spent with Patient: <25 minutes Time was spent: obtaining and[facility]or [facility], ordering medications,tests, procedures and counseling the patient
[2022-12-30 13:28] VITALS: BP 151/85; PULSE 63; RESP 16; TEMP 36.6; O2SAT 97
[2022-12-30 14:59] LABS: Source Nasal/Nares
[2022-12-30 15:38] LABS: COVID-19 PCR Negative (Negative)
--- NOTE | 2022-12-30 16:23 | PDOC.CMIN ---
- If Service Date Differs Date of service: 12/30/22 Time of Service: 16:23 Care Management Initial Assess REASON FOR HOSPITALIZATION:: Right Ruptured Quad Tendon PAST MEDICAL HISTORY/PAST SURGICAL HISTORY:: All Active Problems?(Updated 12/21/22 @ 09:26 by Alex Dixon MD). Traumatic rupture of right quadriceps tendon (Acute). Acute pain of right knee (Acute). History of right knee surgery (Acute). Degenerative joint disease of right hip (Acute). Painful total knee replacement, right (Acute). Status post right knee replacement (Acute). Regurgitation and rechewing (Acute ~10/2021). 12[place]13/[place] [facility] [place], gastric emptying scan ordered and consult with NutritionistLung nodule < 6cm on CT (Acute). LEWIS (dyspnea on exertion) (Acute). Paraesophageal hernia (Acute). Urinary incontinence (Acute). Vomiting (Acute). Fall (Acute). Rib pain on left side (Acute). Left shoulder pain (Acute). Iliotibial band syndrome of right side (Acute). Status post total right knee replacement (Acute 11/20/11). Anxiety and depression (Chronic 09/05/17). Anticoagulant long-term use (Acute). Cough (Acute). Wheeze (Acute). Hiatal hernia (Chronic). Adjustment disorder, unspecified (Acute 11/16/16). Atrial fibrillation (Chronic 01/22/18). Essential hypertension (Acute 04/28/16). Gastroesophageal reflux disease (Chronic 04/28/16). Due to Hiatial Hernia. History of CVA (cerebrovascular accident) (Acute 10/24/15). 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 History of gallstones (Acute 04/28/16). Hyperlipidemia (Acute 04/28/16). Osteoporosis (Chronic 02/13/17). left hip T SCORE -3.3 Prolia inj q6m, first 01/2017, 02/25/21 Total T-Score: -2.5. Hyperglycemia (Acute). Hypokalemia (Acute). Medical History? . Actinic keratosis. Burgos angioma. Closed extra-articular fracture of distal end of right radius (01/31/17). Dehydration. Episode of recurrent major depressive disorder (10/17/16). Gastroenteritis. Hx of atrial fibrillation, no current medication (04/25/16). Pt was seen by a amortization schedule clerk and was put on Metoprolol but mdication was stopped due to bradycardia. per Dr. Addison Shore 04/25/2016. Keratoacanthoma (~05/2022). Derm (Left trunk)Seborrheic keratoses. Surgical History? . Cholecystectomy (01/10/18). Extraction of cataract. H/O endoscopy (10/24/21). Open Carpal Tunnel release. rightS/P repair of paraesophageal hernia (08/15/21). Giant. [facility] [place] (07/11/17). left knee arthroplasty PREVIOUS FUNCTIONAL STATUS/SOCIAL/FAMILY SUPPORTS:: Linda lives alone at the [facility]. She has 4 adult children all who are supportive. Sanjay and Wilber live locally, Darlin and Trisha live out of state. Linda is independent with her ADL's at baseline, she uses a Walker or a Cane as needed. Her son Wilber transports her and when he is unavailable she uses [facility]. Darlin is interested in learning more about [facility] and the services they offer. CURRENT FUNCTIONAL STATUS:: Linda is sitting in her recliner when CM met with her. She is awake and easily engages in conversation. She is agreeable to SNF for STR as recommended by Dr. Dixon and PT. ADVANCE DIRECTIVES:: None on file Has patient been provided with info about the portal/API?: Yes Did the patient sign up for the portal?: Yes (Prior to admission) CODE STATUS:: Full Code ([facility] on file.) INSURANCE COVERAGE / FINANCIAL ISSUES:: Medicare. Financial Assistance 100 CURRENT HOME/COMMUNITY SERVICES/EQUIPMENT:: nursing home housing. [facility]. Uses a Walker or cane-PRN PRIMARY CARE PHYSICIAN:: Patricia Garza POTENTIAL DISCHARGE NEEDS:: SNF for STR. [facility] Referral PATIENT/FAMILY EDUCATION NEEDS:: Review discharge instructions, limitations and plan to follow up with Ortho and other community providers. Discuss ask me three. TRANSPORTATION:: Dependent on dispo PLAN:: Linda will need SNF for STR before she is able to discharge home per Dr. Dixon and PT recommendation. CM discussed referral's with patient directly and will send referral at patients request. CM will continue to follow. Transportation will be dependent on disposition.
[2022-12-30 17:15] LABS: CREATININE 1.6 mg/dL (0.55-1.02)
[2022-12-30 17:16] LABS: BUN 32 mg/dL (7-18)
[2022-12-30] MEDS: Normal Saline 250 ML 500 ML IV (17:42)
[2022-12-30 19:15] VITALS: BP 137/67; PULSE 63; RESP 16; TEMP 36.2; O2SAT 98
[2022-12-30] MEDS: Gabapentin 300 MG CAP PO (19:39)
--- NOTE | 2022-12-30 21:36 | DSE_ITS ---
Date of service: 01/01/23 Time of Service: 11:48 DS: Diagnosis Discharge Diagnosis (1) Traumatic rupture of right quadriceps tendon: Status: Acute Discharge Plan Disposition Patient Disposition[facility] Facility(SNF[facility] Condition: Good Discharge Details Reason For Visit: Right Ruptured Quad Tendon; s/p Right TKA Admit Date/Time: 12/29/22 07:29 Admit Provider: Alex Dixon Attending Provider: Alex Dixon Primary Care Provider: Patricia Garza Hospital Course Hospital Course: Patient was admitted to the medical/surgical floor following the procedure. The surgery was tolerated well without any notable medical, surgical, or anesthetic complications. Mobilization began postoperatively. [He][She] was voiding spontaneously. Vitals were stable. Physical therapy worked with the patient and was cleared for discharge home. No acute medical issues. Pain was controlled on oral regimen. Home Meds and New Rx's Prescriptions: New acetaminophen 500 mg tablet 500 mg PO Q6H PRN PRN (Reason: pain) Qty: 40 3RF tramadol 50 mg tablet 50 mg PO Q6H PRNQty: 18 0RF diazepam 2 mg tablet 2 mg PO TID PRN (Reason: pain and spasm) Qty: 15 0RF celecoxib 200 mg capsule 200 mg PO DAILY Qty: 30 0RF Continued citalopram 20 mg tablet 20 mg PO DAILY Qty: 90 3RF apixaban 2.5 mg tablet 2.5 mg PO BID Qty: 180 3RF Trelegy Ellipta 100-62.5-25 mcg blister with device 1 inh inhalation DAILY Prolia 60 MG/1 ML syringe 60 mg SQ [id number] Patient Comments: 07/09/13 per pt not due until next month, DCW calcium-vitamin D3-vitamin K 1 EACH tablet,chewable 1 ea PO DAILY fluticasone furoate-vilanterol [Breo Ellipta] 200-25 mcg/dose Blister With Device 1 inh INHALATION DAILY omeprazole 40 mg Capsule,Delayed Release(Dr/Ec) 40 mg PO BID bupropion HCl 150 mg Tablet Extended Release 24 Hr 150 mg PO QAM albuterol sulfate 90 mcg/actuation Hfa Aerosol Inhaler 2 puff INHALATION Q6H PRN PRN metoprolol succinate 50 mg Tablet Extended Release 24 Hr 50 mg PO DAILY fenofibrate nanocrystallized 48 mg Tablet 48 mg PO DAILY prochlorperazine maleate 10 mg Tablet 0 mg PO BID PRN PRN Rx Instructions: 1/2 to 1 tablet twice a day as needed for nausea/vomiting acetaminophen 500 mg tablet 500 mg PO Q6H PRN (Reason: pain) Qty: 60 2RF Discharge Instructions Instructions: Tendon Rupture (GEN), Total Knee Discharge Instructions Additional Instructions: Discharge Instructions Activity: You may bear weight as tolerated on the leg with a cast in position. It is important that the edges of the cast were checked for any skin breakdown and padded accordingly. Increasing weightbearing distance is of little value however, emphasis should be placed on independence for transfers. Dressing: The dressing and sutures will be removed at the first office follow-up when the cast is removed. Medications: - You should take Tylenol and Celebrex for baseline pain control. -You have tramadol prescribed for more acute pain and diazepam for muscle spasms. Follow-up in 2.5 to 3 weeks Stand Alone Forms: Nursing Discharge Form Referrals: Alex Dixon MD [ [facility] STAFF PHYSICIAN] - Activity:: WBAT with RLE in ext cast Equipment/Supplies:: No Equipment Needed Diet:: As Tolerated Discharge Orders Discharge Orders: Discharge Order (Routine); Ordered 01/01/23 Ordered By: Alex Dixon DS: Summary Time Spent with Patient providing and/or coordinating discharge services: Less than 30 minutes Status at Discharge Functional status at discharge: uses cane/walker Overall status at discharge: patient is progressing back to baseline Mental Status: mental status grossly normal Speech and Movement: speech and movement normal Mood: congruent mood Affect: normal affect Exam Narrative Exam Narrative: Sitting up in hospital bed. No acute distress. Alert and orient x3 Right lower extremity shows a cast in good position. The skin was inspected where there is no signs of breakdown. Modifications were made to pad the proximal aspect of the cast. Toes are warm well perfused. Psych Mental Status: mental status grossly normal Speech and Movement: speech and movement normal Mood: congruent mood Affect: normal affect DS: Data Vitals/I&O Vitals and I&O: Vital Signs Temperature 36.2 C L 12/30/22 19:15 Temperature Source Tympanic 12/30/22 19:15 Pulse 63 12/30/22 19:15 Pulse Rhythm Regular 12/30/22 15:50 Respiratory Rate 16 12/30/22 19:15 Respiratory Effort Normal, Non-Labored 12/30/22 15:50 Respiratory Depth Normal 12/30/22 15:50 Respiratory Pattern Normal 12/30/22 15:50 Blood Pressure 137/67 12/30/22 19:15 Pulse Oximetry 98 12/30/22 19:15 Respiratory End-tidal CO2 33 12/29/22 14:45 Oxygen Delivery Method Room Air 12/30/22 19:15 Oxygen Flow Rate 0 12/30/22 19:15 Pain Level 3 12/30/22 18:29 Comment up to chair with PT, s/p exercises 12/30/22 10:32 Intake & Output 12/29/22 12/30/22 12/30/22 23:59 11:59 23:59 Intake Total 1400.000 / 2252.927 2030 / 2200 450 / 2200 Output Total 200 / 200 450 / 825 375 / 825 Balance 1200.000 / 1506.135 2408 / 1375 75 / 1375 Intake: IV 1160.000 / 4233.655 8805 / 1570 300 / 1570 Oral 240 / 240 480 / 630 150 / 630 Output: Urine 150 / 150 450 / 825 375 / 825 Estimated Blood Loss 50 / 50 Other: Urine Color Yellow Light Columba Yellow Urine Appearance Clear Clear Clear Urine Odor Normal None None Comment low urine output since 0700 today Stool Size Smear Stool Characteristics Brown Emesis Description None Voiding Methods Toilet Indwelling Catheter Indwelling Catheter Data Completed and Pending Labs on day of discharge: Labs from last 24 hours 12/30/22 12/30/22 12/30/22 17:00 17:00 14:50 WBC RBC Hgb Hct MCV MCH MCHC RDW Plt Count MPV Sodium Potassium Chloride Carbon Dioxide Anion Gap BUN 32 H Creatinine 1.6 H Est GFR (CKD-EPI 2020) 31.80 Glucose Calcium COVID-19 Source Nasal/Nares SARS-CoV-2 (PCR) Negative 12/30/22 12/30/22 06:30 06:30 WBC 7.19 RBC 3.95 Hgb 11.5 Hct 35.2 L MCV 89 MCH 29.1 MCHC 32.7 RDW 12.4 Plt Count 255 MPV 9.4 Sodium 139 Potassium 3.6 Chloride 104 Carbon Dioxide 27.3 Anion Gap 7.7 BUN 34 H Creatinine 1.4 H Est GFR (CKD-EPI 2020) 37.33 Glucose 128 H Calcium 8.4 L COVID-19 Source SARS-CoV-2 (PCR) PFSH All Active Problems Falls frequently (Acute) Lateral subluxation of right patella (Acute) Traumatic rupture of right quadriceps tendon (Acute) Acute pain of right knee (Acute) History of right knee surgery (Acute) Degenerative joint disease of right hip (Acute) Painful total knee replacement, right (Acute) Status post right knee replacement (Acute) Regurgitation and rechewing (Acute ~10/2021) 12/13/21 [facility] [place] [facility] gastric emptying scan ordered and consult with Real Estate Specialist Lung nodule < 6cm on CT (Acute) LEWIS (dyspnea on exertion) (Acute) Paraesophageal hernia (Acute) Urinary incontinence (Acute) Vomiting (Acute) Fall (Acute) Rib pain on left side (Acute) Left shoulder pain (Acute) Iliotibial band syndrome of right side (Acute) Status post total right knee replacement (Acute 11/20/11) Anxiety and depression (Chronic 09/05/17) Anticoagulant long-term use (Acute) Cough (Acute) Wheeze (Acute) Hiatal hernia (Chronic) Adjustment disorder, unspecified (Acute 11/16/16) Atrial fibrillation (Chronic 01/22/18) Essential hypertension (Acute 04/28/16) Gastroesophageal reflux disease (Chronic 04/28/16) Due to Hiatial Hernia History of CVA (cerebrovascular accident) (Acute 10/24/15) Dry Stroke, 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) History of gallstones (Acute 04/28/16) Hyperlipidemia (Acute 04/28/16) Osteoporosis (Chronic 02/13/17) left hip T SCORE -3.3 Prolia inj q6m, first 01/2017, 02/25/21 Total T-Score: - 2.5 Hyperglycemia (Acute) Hypokalemia (Acute) Medical History Actinic keratosis Burgos angioma Closed extra-articular fracture of distal end of right radius (01/31/17) Dehydration Episode of recurrent major depressive disorder (10/17/16) Gastroenteritis Hx of atrial fibrillation, no current medication (04/25/16) Pt was seen by a special events assistant and was put on Metoprolol but mdication was stopped due to bradycardia. per Dr. Addison Shroe 04/25/2016 Keratoacanthoma (~05/2022) Derm (Left trunk) Seborrheic keratoses Surgical History Cholecystectomy (01/10/18) Extraction of cataract H/O endoscopy (10/24/21) Open Carpal Tunnel release right S/P repair of paraesophageal hernia (08/15/21) Giant [facility] [place] Thoracic total knee arthroplkasty (07/11/17) left knee arthroplasty Family History Mother Stroke Father Neoplasm Grandmother , CVA No problems noted. Brother Diabetes Brother Diabetes Brother Diabetes Brother Diabetes Brother Diabetes Brother Diabetes Social History Smoking/Tobacco Use Status: Former Tobacco Use Quit Date: 10/29/85 Tobacco: How many years used: 25 Smoking risk assessment performed?: Yes Alcohol Intake: never Drug use: Never Substance use type: does not use Household members: none Number of Children: 4 Current gender identity: female What type of physical activity do you participate in: none Do you feel safe at home: Yes Do you feel safe in your relationship?: Yes Time Spent with Patient Time Spent with Patient: <45 minutes Time was spent: preparing to see the patient(eg.review tests), obtaining and/or reviewing separately otained hiistory and ordering medications,tests, procedures
[2022-12-30] MEDS: oxyCODONE 5 MG TAB PO (21:38)
[2022-12-30 23:49] VITALS: BP 193/79; PULSE 64; RESP 20; TEMP 36.4; O2SAT 96
[2022-12-31] VITALS (7 sets, daily range): BP systolic 130–194; BP diastolic 71–97; PULSE 62–68; RESP 16–21; TEMP 36.1–37; O2SAT 94–97
[2022-12-31] MEDS: Ondansetron O.D.T. 4 MG TABEF (04:40)
[2022-12-31] MEDS: Budesonide/Formoterol 160/4.5 6 GM 60 PUFF INH IH ×2 (07:57→20:09)
[2022-12-31] MEDS: Normal Saline Flush 10 ML SYR IVP ×2 (08:08→09:54)
[2022-12-31] MEDS: buPROPion-XL 150 MG TABCR PO (08:09)
[2022-12-31] MEDS: Apixaban 2.5 MG TAB PO ×2 (08:09→20:08)
[2022-12-31] MEDS: Acetaminophen 500 MG TAB PO ×4 (08:09→20:08)
[2022-12-31] MEDS: Metoprolol CR 50 MG TABCR PO (08:09)
[2022-12-31] MEDS: Citalopram 20 MG TAB PO (08:09)
[2022-12-31] MEDS: Omeprazole 20 MG CAPCR 40 MG PO ×2 (08:09→20:08)
[2022-12-31] MEDS: traMADol 50 MG TAB PO ×2 (09:53→13:46)
[2022-12-31] MEDS: Ketorolac 15 MG/ML VIAL IVP (09:54)
--- NOTE | 2022-12-31 10:37 | PT.INTREAT ---
Date of service: 12/31/22 Time of Service: 10:20 PT Notes Visit Reasons: Right Ruptured Quad Tendon; s/p Right TKA Inpatient Physical Therapy Treatment Note [facility] Date: 12/31/2022 PRECAUTIONS: Fall, WBAT R LE, Activity as tolerated SUBJECTIVE: Linda is pleasant and agreeable to participating in PT. She states that she is having a hard time staying awake after taking her pain medication. She also reports that her cast became very uncomfortable overnight and into today. OBJECTIVE: PAIN: No c/o pain BED MOBILITY/TRANSFERS Supine-sit: SBA Sit-stand: CGA Stand-sit: CGA GAIT Assistive Device: FWW Weight bearing: WBAT R LE Assist: CGA - Min A Distance: 20' Deviation: Instruction for gait mechanics/FWW management/pacing for safety, LOB x2 with Mod A for recovery ASSESSMENT/PLAN: Patient tolerated session well, without complaint of pain. She continues to demonstrate quick pacing, leading to unsteady gait and LOB x2. With instruction, patient is able to achieve steady gait and pacing with instructions to take standing rests and cueing throughout for appropriate FWW management. Patient would benefit from SNF-level rehab for continued gait and transfer training for improved safety with mobility, prior to returning to home where she lives independently. TREATMENT CODE/TIME: 15 minutes; 44725 (10:20)
[2022-12-31] MEDS: Docusate Sodium 100 MG CAP PO (10:41)
[2022-12-31] MEDS: Polyethylene Glycol 3350 17 GM PACKET PO (10:42)
[2022-12-31] MEDS: diazePAM 2 MG TAB PO (20:08)
[2022-12-31] MEDS: Gabapentin 300 MG CAP PO (20:08)
--- NOTE | 2022-12-31 20:24 | W.PM.PROGNOT ---
Date of Service Date of service: 12/31/22 Time of Service: 12:05 Assessment and Plan Assessment and plan (1) Traumatic rupture of right quadriceps tendon: Status: Acute Assessment and plan: Linda is an 82-year-old who suffered a rupture of her quadriceps tendon with retinaculum involved. She is status post repair. She has been placed into a long-leg cast to support the repair. She is having some muscle cramps which is not uncommon with the leg held in full extension. I will try some diazepam for muscle relaxation. I also recommend some heat to the posterior muscle chain. We will continue use ABD pads to pad the superior edge of the cast. I will reevaluate tomorrow for potential modification of the cast. She has been able to transfer and mobilize with minimal assistance with PT but is still not safe to go home and requires more involved physical therapy and I recommend rehabilitation on discharge. Follow urine output today with likely DC of Rios catheter tomorrow. Subjective Subjective Interval history since last seen: Linda has reported some pain and cramping of her posterior thigh. She still feels difficulty with ambulation with her cast. At rest she denies much pain except for this cramping sensation and some pain at the posterior, superior edge of the cast. No chest pain or shortness of breath. Urine output still has been somewhat sluggish although acceptable. Exam Narrative Exam Narrative: Evaluation of the right lower extremity shows a cast in good position. She does have significant fat which builds around the edge of the cast. However, it is soft. The posterior edge is tender to palpation and therefore I placed an ABD pad between the skin and soft tissues in the edge of the cast. There is no signs of skin breakdown. Toes are warm and well-perfused that she is able to wiggle the toes both in flexion and extension as well as report intact sensation. Objective Last Vital Signs Temp 36.5 C 12/31/22 19:20 Pulse 64 12/31/22 19:20 Resp 16 12/31/22 19:20 BP 144/85 H 12/31/22 19:20 Pulse Ox 96 12/31/22 19:20 Time Spent with Patient Time Spent with Patient: <25 minutes Time was spent: preparing to see the patient(eg.review tests), obtaining and/or reviewing separately otained hiistory, ordering medications,tests, procedures and counseling the patient
[2023-01-01] MEDS: traMADol 50 MG TAB PO (02:27)
[2023-01-01 03:10] VITALS: BP 168/82; PULSE 67; RESP 16; TEMP 36.4; O2SAT 95
[2023-01-01 08:03] VITALS: BP 185/95; PULSE 67; RESP 16; TEMP 37.2; O2SAT 95
[2023-01-01] MEDS: Omeprazole 20 MG CAPCR 40 MG PO (08:05)
[2023-01-01] MEDS: Acetaminophen 500 MG TAB PO ×2 (08:05→12:26)
[2023-01-01] MEDS: Citalopram 20 MG TAB PO (08:05)
[2023-01-01] MEDS: buPROPion-XL 150 MG TABCR PO (08:05)
[2023-01-01] MEDS: diazePAM 2 MG TAB PO (08:05)
[2023-01-01] MEDS: Apixaban 2.5 MG TAB PO (08:05)
[2023-01-01] MEDS: Metoprolol CR 50 MG TABCR PO (08:05)
[2023-01-01] MEDS: Budesonide/Formoterol 160/4.5 6 GM 60 PUFF INH IH (08:46)
--- NOTE | 2023-01-01 09:33 | CMDISCH_ITS ---
- If Service Date Differs Date of service: 01/01/23 Time of Service: 09:33 LACE Index Scoring Tool - Questions: Length of Stay (in days): 3 Acuity (Admit via E.D.?): Yes Comorbidities: Cerebrovascular Disease E.D. Visits: 2 - Answers: Total Score: 9 Risk of Readmission: Low Risk Care Management Discharge Reason for Hospitalization: Right Ruptured Quad Tendon Discharge Plan: Linda will discharge to [facility] for continued rehabiliation to progress mobility s/p right knee operation. She will transport via [facility] wheelchair van coordinated by this procedure writer, follow up with Orthopedics and her plan of care as prescribed. Patient/Family Education Needs: Review discharge instructions, discuss Ask Me Three. Services Needed at Discharge: [facility] Facility ([facility] ), Transportation ([facility] W/C Van)
--- NOTE | 2023-01-01 10:53 | PT.INTREAT ---
Date of service: 01/01/23 Time of Service: 09:15 PT Notes Visit Reasons: Right Ruptured Quad Tendon; s/p Right TKA Inpatient Physical Therapy Treatment Note [facility] Date: 01/01/2023 PRECAUTIONS: Fall, WBAT R LE, Activity as tolerated SUBJECTIVE: Linda is pleasant and agreeable to participating in PT. She states that she is feeling a little better. She reports a balance deficit at baseline, reporting frequent falls at home prior to her quad tendon rupture. OBJECTIVE: PAIN: No c/o pain BED MOBILITY/TRANSFERS Sit-stand: CGA Stand-sit: CGA GAIT Assistive Device: FWW Weight bearing: WBAT R LE Assist: CGA - Min A Distance: 30' Deviation: Instruction for gait mechanics/FWW management/pacing for safety, frequent standing rests to regain stability THEREX: Patient was instructed in a B LE stabilization program and in a L LE strengthening program, completed in a long-sitting position, to include: ankle pumps, quad sets, glute sets (all bilaterally), as well as hip abduction, heel slides and SLR with L LE only. ASSESSMENT/PLAN: Patient tolerated session without c/o pain. She was able to tolerate a slight progression in gait distance, however, demonstrates quick pacing and anxiety, leading to unsteady gait. With instruction, patient is able to improve gait stability and pacing with instructions to take standing rests and cueing throughout for appropriate FWW management. Patient would benefit from ST SNF-level rehab for continued gait and transfer training for improved safety with mobility, prior to returning to home where she lives independently. TREATMENT CODE/TIME: 24 minutes; 69978, 22208 (09:15)
--- NOTE | 2023-01-01 12:04 | NUR.NOTE ---
Nursing Note: RN to RN report given to Shiloh @ [facility].
[2023-01-01 13:01] VITALS: BP 163/85; PULSE 68; RESP 16; TEMP 37.3; O2SAT 97
--- NOTE | 2023-01-01 14:00 | NUR.NOTE ---
Nursing Note: Notified [facility] Shiloh, RN that the patient hasn't voided post flanagan removal and wasn't able to prior to discharge. Notified RN that the flanagan was removed @ 08:04 and that her bladder scan at 1300 was 130 mL.
--- NOTE | 2023-01-03 12:59 | PT.INDS ---
PT Notes Visit Reasons: Right Ruptured Quad Tendon; s/p Right TKA Physical Therapy Inpatient Discharge Summary Date: 01/03/2023 Dates of Service: 12/29/2022 through 01/01/2023 This is a clinical summary of care provided for the duration of dates listed above. No charge was made in the completion of this documentation. Referring Doctor: Dr. Alex Dixon PT Orders: PT CONSULT: Status post Ortho surgery Precautions: Weightbearing as tolerated with three-quarter leg cast.? Fall risk Patient Profile/Admitting Diagnosis: Patient is an 82-year-old female who underwent quad tendon repair performed Dr. Alex Dixon on this date.? Patient had a total knee revision in October 2022 and suffered subsequent fall onto her knee.? Has been dealing with multiple weeks of discomfort in declining function until was seen by Ortho when they confirmed her quad tear. PMHX: PFSH All Active Problems?(Updated 12/21/22 @ 09:26 by Alex Dixon MD) Traumatic rupture of right quadriceps tendon (Acute) Acute pain of right knee (Acute) History of right knee surgery (Acute) Degenerative joint disease of right hip (Acute) Painful total knee replacement, right (Acute) Status post right knee replacement (Acute) Regurgitation and rechewing (Acute ~10/2021) [place]13/[place] [facility] [place] [facility] ordered and consult with Solvent Process Extractor Operator Lung nodule < 6cm on CT (Acute) LEWIS (dyspnea on exertion) (Acute) Paraesophageal hernia (Acute) Urinary incontinence (Acute) Vomiting (Acute) Fall (Acute) Rib pain on left side (Acute) Left shoulder pain (Acute) Iliotibial band syndrome of right side (Acute) Status post total right knee replacement (Acute 11/20/11) Anxiety and depression (Chronic 09/05/17) Anticoagulant long-term use (Acute) Cough (Acute) Wheeze (Acute) Hiatal hernia (Chronic) Adjustment disorder, unspecified (Acute 11/16/16) Atrial fibrillation (Chronic 01/22/18) Essential hypertension (Acute 04/28/16) Gastroesophageal reflux disease (Chronic 04/28/16) Due to Hiatial Hernia History of CVA (cerebrovascular accident) (Acute 10/24/15) Dry Stroke, 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 Actinic keratosis Burgos angioma Closed extra-articular fracture of distal end of right radius (01/31/17) Dehydration Episode of recurrent major depressive disorder (10/17/16) Gastroenteritis Hx of atrial fibrillation, no current medication (04/25/16) Pt was seen by a head porter baggage and was put on Metoprolol but mdication was stopped due to bradycardia. per Dr. Addison Shore 04/25/2016 Keratoacanthoma (~05/2022) Derm (Left trunk) Seborrheic keratoses Surgical History? Cholecystectomy (01/10/18) Extraction of cataract H/O endoscopy (10/24/21) Open Carpal Tunnel release right S/P repair of paraesophageal hernia (08/15/21) Giant [facility] [place] Total knee arthroplkasty (07/11/17) left knee arthroplasty Social History/Home Situation: Lives alone at the [place] in apartments.? Second floor with elevator access.? Premorbid functional status with ambulation community distances with front wheeled walker and 4 wheeled walker.? Daughter was present for evaluation.? She is resides in [place]. Current Functional Limitations: Bed mobility, transfer capabilities, ambulation limitation, unable to perform stair negotiation Equipment Owned/DME: Four-wheel walker Subjective:? NT. See most recent RECREATIONAL THERAPY AIDE notes. Objective:? General Observation: NT. See most recent RECREATIONAL THERAPY AIDE notes. Mental Status: NT. See most recent RECREATIONAL THERAPY AIDE notes. Pain: NT. See most recent RECREATIONAL THERAPY AIDE notes. ? ROM: Right Upper Extremity: Glenohumeral joint flexion 115 degrees active versus 130 active assisted, elbow flexion and extension within normal limits.? Approximates fingertips to palmar creases Left Upper Extremity: Glenohumeral joint flexion 110 degrees active versus 125 active assisted, elbow flexion extension within normal limits.? Approximate fingertips to palmar crease.? Right Lower Extremity: Not tested secondary to immobilizer Left Lower Extremity: Left hip flexion 105 degrees, knee flexion and extension within functional limits pain-free.? Ankle dorsiflexion plantarflexion within functional limits Strength: Right Upper Extremity: 4 -/5 flexion and abduction glenohumeral joint, 4/5 internal rotation, 4 -/5 external rotation, bicep and? tricep 4/5.? Good professional services manager Left Upper Extremity: 4/5 flexion and abduction glenohumeral joint, 4/5 internal and external rotation, biceps and triceps 4/5.? Good professional services manager. Right Lower Extremity: Not tested Left Lower Extremity: Hip flexion 4/5, able to perform straight leg raises 0 degree lag, quad 4/5, hamstring 4 -/5, ankle dorsiflexion plantarflexion 4/5, hip adduction 4/5, hip AB duction 4 -/5 Sensation:? Patient reports no sensation light touch throughout toes with 1?5 right lower extremity.? Intact throughout left lower extremity. BED MOBILITY/TRANSFERS? Supine-sit: SBA? Sit-stand: CGA? Stand-sit: CGA ? GAIT? Assistive Device: FWW? Weight bearing: WBAT R LE Assist: CGA - Min A ? Distance:? 20' ? Deviation: Instruction for gait mechanics/FWW management/pacing for safety, LOB x2 with Mod A for recovery Balance:? Static Sitting: Fair Dynamic Sitting: ? Fair Static Standing: Poor Dynamic Standing: Poor Assessment:??P alisia is a 82 year old ?female referred to physical therapy services with the diagnosis of status post right quad tendon repair.? Patient presents with clinical signs and symptoms consistent with above diagnosis, as demonstrated by the following impairment level findings: Joint mobility, motor function, muscle performance and range of motion associated with soft tissue surgery.? Impairments are contributing to the following functional limitations: AMPAC score. Goals: Goals X1 week 1. Supine-Sit : Independent NOT MET 2. Sit-Supine: Independent NOT MET's 3. Sit-Stand :SBA assist to front wheel walker NOT MET 4. Stand-Sit: Independent NOT MET 5. Bed-Chair: SBA with use of front wheel walker?NOT MET 6. Chair-Bed: SBA with use of front wheel walker NOT MET 7. Gait: 100 feet SBA with use of front wheel walker NOT MET 8. Stairs:? Patient negotiate 3 steps with handrail and standby derek NOT MET DISCHARGE RECOMMENDATIONS: [] ? Home with no services [] [] ? Home with services [specify] [] ? Home with outpatient PT [] X ? SNF for continued rehabilitation: Further rehabilitation for functional mobility training strength, endurance cardiovascular and gait/proprioception training activities [] ? Radiographer Technologist Care [] [] ? SNF versus LTC based on ability to participate and progress [] TREATMENT CODE/TIME:? NC Thank you for the opportunity to participate in the care of this patient. Kaylynn Hunter PT, DPT, CLT [facility] [place], [place]
== END 2023-01-01 13:19 | disposition skilled nursing facility (03) | DRG 501 ==
LOC: PDS 15:31 → MS 15:32
PROVIDERS: Admitting Provider Student in an Organized Health Care Education/Training Program; PCP Nurse Practitioner; Visit Provider Student in an Organized Health Care Education/Training Program
PROC: 0LQQ0ZZ Repair Right Knee Tendon, Open Approach (ICD-10-PCS; CPT 27385; principal; 2022-12-29 14:15)
DX: S76.111A Strain of right quadriceps muscle, fascia and tendon, initial encounter (principal); T84.84XA Pain due to internal orthopedic prosthetic devices, implants and grafts, initial encounter; R29.6 Repeated falls; Z96.651 Presence of right artificial knee joint; K44.9 Diaphragmatic hernia without obstruction or gangrene; R32 Unspecified urinary incontinence; F41.8 Other specified anxiety disorders; Z79.01 Long term (current) use of anticoagulants; I48.91 Unspecified atrial fibrillation; K21.9 Gastro-esophageal reflux disease without esophagitis; Z86.73 Personal history of transient ischemic attack (TIA), and cerebral infarction without residual deficits; E78.5 Hyperlipidemia, unspecified; M81.0 Age-related osteoporosis without current pathological fracture; E87.6 Hypokalemia; W19.XXXA Unspecified fall, initial encounter
CPT/HCPCS: 27385; 27425; 36415; 80048; 84520; 85027; 87635; 94640; 97110; 97161; 97530; 82565; 94664; 94760; J0360; J0690; J1885; J2704

== ENCOUNTER → 2023-01-08 12:45 | Outpatient (BNVA) | payer MEDICARE, SELFPAY | PROVIDERS: PCP Nurse Practitioner; Referring Provider Nurse Practitioner; Visit Provider Student in an Organized Health Care Education/Training Program | DX: S76.111D Strain of right quadriceps muscle, fascia and tendon, subsequent encounter (principal); X58.XXXD Exposure to other specified factors, subsequent encounter; T84.84XA Pain due to internal orthopedic prosthetic devices, implants and grafts, initial encounter; Z96.651 Presence of right artificial knee joint ==

== ENCOUNTER → 2023-01-22 10:51 | Outpatient (BNVA) | payer MEDICARE, SELFPAY | PROVIDERS: PCP Nurse Practitioner; Referring Provider Nurse Practitioner; Visit Provider Student in an Organized Health Care Education/Training Program | DX: S76.111D Strain of right quadriceps muscle, fascia and tendon, subsequent encounter (principal); X58.XXXD Exposure to other specified factors, subsequent encounter; Z96.651 Presence of right artificial knee joint ==

== ENCOUNTER → 2023-02-12 13:26 | Outpatient (BNVA) | payer MEDICARE, SELFPAY | PROVIDERS: PCP Nurse Practitioner; Referring Provider Nurse Practitioner | DX: S76.111D Strain of right quadriceps muscle, fascia and tendon, subsequent encounter (principal); X58.XXXD Exposure to other specified factors, subsequent encounter ==

== ENCOUNTER 2023-02-13 11:59 | Outpatient (REF) | payer MEDICARE, SELFPAY ==
[2023-02-13 16:31] LABS: Anion Gap 6.2 mmol/L (3-11); BUN 34 mg/dL (7-18); CO2 29.8 mmol/L (21.0-32.0); CREATININE 1.2 mg/dL (0.55-1.02); Chloride 106 mmol/L (98-107); Estimated GFR 44.91 (mL/min/1.73m2); Glucose 157 mg/dL (74-106); Sodium 142 mmol/L (136-145)
== END 2023-02-13 12:00 | disposition home or self-care (01) ==
LOC: LBN 11:59
PROVIDERS: PCP Nurse Practitioner; Referring Provider Nurse Practitioner; Visit Provider Nurse Practitioner
DX: N18.9 Chronic kidney disease, unspecified (principal); I10 Essential (primary) hypertension
CPT/HCPCS: 80048

== ENCOUNTER 2023-03-21 12:56 | Outpatient (REF) | payer MEDICARE, SELFPAY | END 2023-03-21 12:57 | disposition home or self-care (01) | LOC: LBN 12:56 | PROVIDERS: PCP Nurse Practitioner; Referring Provider Nurse Practitioner; Visit Provider Nurse Practitioner | DX: N39.0 Urinary tract infection, site not specified (principal) | CPT/HCPCS: 87077; 87086; 87186 ==

== ENCOUNTER 2023-03-22 08:24 | Emergency (ER) | payer MEDICARE, SELFPAY ==
[2023-03-22] VITALS (39 sets, daily range): BP systolic 107–177; BP diastolic 48–76; PULSE 61–79; RESP 11–27; TEMP 36.6; O2SAT 94–100
--- NOTE | 2023-03-22 08:00 | RT.EKG_ITS ---
APPROVED REPORT Exam: Resting ECG Reason for Exam: [facility] Patient Location: E HR:66 bpm ECG Measurements Heart Rate 66 AXIS LA 228 P 46 QRSd 95 QRS 14 QT 493 T 49 QTc 517 Conclusion Sinus rhythm...normal P axis, V-rate 60- 99 Prolonged LA interval...LA >220, V-rate 50- 90 Prolonged QT interval...QTc >500mS. Sinus. Normal axis. Prolonged LA. Prolonged QTc. No STEMI. I have reviewed and interpreted ECG and agree with software generated interpretation.
--- NOTE | 2023-03-22 08:13 | ED.GENADUL_ITS ---
Discharge Plan Disposition Patient Disposition: Home Condition: Stable Discharge Details Clinical Impression: UTI (urinary tract infection), Nausea, Diarrhea Primary Care Provider: Patricia Garza ED Provider: Mehreen Simon Home Meds and New Rx's Prescriptions: Continued apixaban 2.5 mg tablet 2.5 mg PO BID Qty: 180 3RF Trelegy Ellipta 100-62.5-25 mcg blister with device 1 inh inhalation DAILY acetaminophen 500 mg tablet 500 mg PO Q6H PRN (Reason: pain) bupropion HCl 150 mg tablet extended release 24 hr 150 mg PO QAM Qty: 90 3RF Prolia 60 MG/1 ML syringe 60 mg SQ [id number] Patient Comments: 07/09/13 per pt not due until next month, DCW calcium-vitamin D3-vitamin K 1 EACH tablet,chewable 1 ea PO DAILY fenofibrate nanocrystallized 48 mg tablet 48 mg PO DAILY Qty: 90 3RF metoprolol succinate 50 mg tablet extended release 24 hr 50 mg PO DAILY Qty: 90 3RF prochlorperazine maleate 10 mg tablet 5 mg PO BID PRN (Reason: nausea and vomiting) Qty: 20 0RF Rx Instructions: 1/2 to 1 tablet twice a day as needed for nausea/vomiting fluticasone furoate-vilanterol [Breo Ellipta] 200-25 mcg/dose Blister With Device 1 inh INHALATION DAILY omeprazole 40 mg Capsule,Delayed Release(Dr/Ec) 40 mg PO BID albuterol sulfate 90 mcg/actuation Hfa Aerosol Inhaler 2 puff INHALATION Q6H PRN PRN Discharge Instructions Instructions: Urinary Tract Infection in Women (ED), Acute Nausea and Vomiting (ED), Acute Diarrhea (ED) Additional Instructions: Your blood test today showed that you had low magnesium and low potassium which was supplemented here in the emergency department and which is often due to dietary deficiency. Your CAT scan today showed no evidence of acute concerning or significant findings. It is suspected that your symptoms of nausea and diarrhea are secondary to your antibiotic macrobid that was started tomorrow your primary care doctor's office. Stop taking the Macrobid. Due to previous past urine culture results and your reaction to the Macrobid, it is recommended you stop this antibiotic at this time. We gave you a dose of the antibiotic ceftriaxone here in the emergency department. You were given 2 tabs of the antibiotic Keflex to start tomorrow and take twice daily as directed. A prescription for additional Keflex has been sent electronically to your mail-in pharmacy and you will take as directed until finished. Continue to take Imodium as needed and directed for diarrhea. Drink plenty of fluids and get plenty of rest. Follow-up with your primary care doctor in 1 week. Return to the emergency department with any worsening or new concerning symptoms. Discharge Data Discharge Date/Time-TO BE ENTERED AT DEPARTURE: 03/22/23 15:21 Discharge Physician: Mehreen Simon Medical Decision Making 83-year-old female with a history of hypertension, hyperlipidemia, atrial fibrillation on Eliquis, CVA, depression, paraesophageal hernia repair, with history of left and right knee TKA, status post right quadriceps and arthrotomy rupture repair in December 2022 diagnosed with a UTI on urine dip at PCP office yesterday and started on Macrobid presents with nausea and diarrhea since last night. Patient denies any fever, vomiting or abdominal pain. She appears comfortable. She reports her symptoms have improved since taking Imodium this morning. Her blood pressure is moderately hypertensive. She is afebrile and appears nontoxic. Her abdomen is soft without rigidity, guarding or peritoneal signs but she endorses tenderness in the suprapubic region. She has no report of fever, persistent vomiting or significant abdominal pain to suggest pyelonephritis, small bowel obstruction, AAA. Suspect her symptoms are secondary to Macrobid. Considering her age and history, will obtain screening labs, urinalysis, FLUVID and CT abdomen and pelvis. We will give a dose of IV Tylenol and Zofran. Review of records notes that a urine culture from September 2022 grew Pseudomonas and Pantoea which was susceptible to cephalosporins but intermediate to nitrofurantoin. Review of urine culture from December 2017 also sensitive to cephalosporins but resistant to nitrofurantoin. Discussed with patient that I would recommend stopping the Macrobid due to her diarrhea but also based on her previous urine cultures. Her urine culture from yesterday had been sent and is pending. 1145 --Labs and imaging reviewed. White blood cell count 13.24. Initial lactate 2.5. Creatinine 1.4 which is decreased her usual baseline. Magnesium 1.3, will replete. Troponin negative. Urinalysis notes greater than 50 WBCs, small leukocyte esterase, moderate bacteria but many epithelial cells and appears contaminated. CT abdomen and pelvis notes fluid seen in loops of small bowel consistent with a diarrheal illness and diverticulosis but no evidence of diverticulitis. We will plan for repeat lactate, metabolic panel and magnesium after fluids and repletion. If patient able to tolerate p.o. and labs improving, will discharge to home with plan for change of antibiotic to Keflex. 1430 --repeat lactate now near normal. Repeat magnesium now normalized. Slight decrease in calcium and Tums given. Improvement in renal function. Patient reassessed and she has had no vomiting or diarrhea here and she feels comfortable going home. She was able to tolerate p.o. Records note that patient has an allergy to penicillin which causes swelling and edema. She states she has tolerated cephalosporins in the past. Review of records notes that patient had a cephalosporin in the fall 2021 in December 2022 and she denies any adverse reaction. Due to her other antibiotic allergies including Cipro and sulfa and her GI reaction to Macrobid, we will proceed with cephalexin patient is agreeable. She was given 1 dose of Rocephin IV here and she tolerated it well without adverse effect. She was advised to stop her Macrobid. She was advised she can continue Imodium. Advised to follow up with the primary care doctor for re-evaluation. Usual and customary return precautions given prior to discharge. Medical Records Medical records reviewed: Yes I reviewed the patient's medical records. Imaging Data Radiologic Study: Radiologist's impression: CT ABDOMEN ? PELVIS W CLINICAL HISTORY: ? lower abd tenderness, nausea, diarrhea ? TECHNIQUE:? Imaging Protocol: Axial computed tomography images with coronal and sagittal reformatted images were created and reviewed CONTRAST MATERIAL:? Intravenous: Omnipaque 350 Contrast volume:90 mL Oral: No COMPARISON:? CT CT ABDOMEN ? PELVIS WO from 09/04/2020 FINDINGS: ABDOMEN: Lung Bases: Surgical changes are seen at the gastroesophageal junction.? There is no evidence of a hernia.? Liver: Normal density. No measurable mass. Portal, Superior Mesenteric, and Splenic Veins: Unremarkable.? Gallbladder and Biliary Tract: Status post cholecystectomy.? No change in appearance of the bile ducts.? No intrahepatic biliary ductal dilatation.? Pancreas: Normal density, no abnormal calcifications or inflammatory process. Spleen: Normal. Adrenals: No masses seen. Kidneys: Normal size, contour and axis. No radiodense stones or obstructive uropathy. There are bilateral simple renal cysts.? No follow-up is recommended.? Abdominal Aorta: Abdominal portion non-dilated. Atherosclerosis is present. Bowel: There is diverticulosis of the colon, but no evidence of acute diverticulitis.? There is no evidence of bowel obstruction or bowel wall thickening.? There are fluid-filled loops of small bowel seen in the pelvis.? This can be seen with a diarrheal illness.? No evidence of appendicitis.? Peritoneal Cavity: No ascites, collection or mesenteric inflammatory response.? No free air. Lymph Nodes: Within normal limits. Bones: Within normal limits for the patient's age.? There are marked degenerative changes seen in the right hip with [id number] contact and bony hypertrophy.? There is an old T11 compression fracture deformity. Soft Tissues: There is a small fat containing midline upper abdominal wall hernia.? There is a small fat containing inguinal hernia on the right.? PELVIS: Bladder: Symmetric distention, no gross wall thickening. Reproductive Organs: Unremarkable as visualized. Lymph Nodes: Within normal limits. Bones: Within normal limits for the patient's age.? IMPRESSION: 1. There is fluid seen in loops of small bowel which can be seen with a diarrheal illness. 2. There is diverticulosis in the colon but no evidence of acute diverticulitis. 3. Incidental findings in the abdomen and pelvis as described above. Lab Data Lab results reviewed: Yes I reviewed the patient's lab results. Labs: Laboratory Tests Range/Units 03/22/23 03/22/23 03/22/23 08:45 08:45 08:45 WBC (4.4-10.8) 10^3/uL 13.24 H RBC (3.93-5.22) 10^6/uL 4.10 Hgb (11.2-15.7) g/dL 12.6 Hct (36.0-46.0) % 37.8 MCV (80-95) fL 92 MCH (27.0-33.0) pg 30.7 MCHC (32.0-36.0) % 33.3 RDW (11.7-14.6) % 13.2 Plt Count (130-400) 10^3/uL 246 MPV (8.0-11.0) fL 9.0 Immature Gran % 1.2 Neutrophils % 95.6 Lymphocytes % 0.3 Monocytes % 2.4 Eosinophils % 0.1 Basophils % 0.4 Nucleated RBC % (0.0-0.3) % 0.0 Absolute Neutrophils (1.2-6.7) 10^3/uL 12.66 H Absolute Lymphocytes (1.2-3.4) 10^3/uL 0.04 L Absolute Monocytes (0.1-0.8) 10^3/uL 0.32 Absolute Eosinophils (0.0-0.7) 10^3/uL 0.01 Absolute Basophils (0.0-0.2) 10^3/uL 0.05 VBG Lactate (0.6-1.4) mmol/L 2.5 H* Sodium (136-145) mmol/L 137 Potassium (3.5-5.1) mmol/L 3.8 Chloride (98-107) mmol/L 101 Carbon Dioxide (21.0-32.0) mmol/L 27.4 Anion Gap (3-11) mmol/L 8.6 BUN (7-18) mg/dL 27 H Creatinine (0.55-1.02) mg/dL 1.4 H Est GFR (CKD-EPI 2020) (mL/min/1.73m2) 37.10 Glucose (74-106) mg/dL 142 H Calcium (8.5-10.1) mg/dL 8.5 Magnesium (1.8-2.4) mg/dL 1.3 L Total Bilirubin (0.2-1.0) mg/dL 0.6 AST (15-37) U/L 45 H ALT (14-59) U/L 27 Alkaline Phosphatase (46-116) U/L 69 Troponin I (<or=60) ng/L < 50 Total Protein (6.4-8.2) g/dL 6.3 L Albumin (3.4-5.0) g/dL 3.2 L Lipase (16-77) U/L Urine Color (Yellow) Urine Clarity (Clear) Urine pH (5-8) Ur Specific [place] (1.005-1.025) Urine Protein (Negative) mg/dL Urine Ketones (Negative) mg/dL Urine Blood (Negative) Urine Nitrite (Negative) Urine Bilirubin (Negative) Urine Urobilinogen (Up to 0.2) mg/dL Ur Leukocyte Esterase (Negative) Urine RBC (0-2) HPF Urine WBC (0-5) HPF Ur Epithelial Cells (Negative) HPF Urine Crystals (Negative) HPF Urine Bacteria (Negative) HPF Urine Casts (Negative) LPF Urine Mucus (Negative) Urine Other (Negative) Ur Culture Indicated? Urine Glucose (Negative) mg/dL COVID-19 Source SARS-CoV-2 (PCR) (Negative) Influenza Type A (PCR) (Negative) Influenza Type B (PCR) (Negative) RSV (PCR) (Negative) Range/Units 03/22/23 03/22/23 03/22/23 09:30 11:10 11:10 WBC (4.4-10.8) 10^3/uL RBC (3.93-5.22) 10^6/uL Hgb (11.2-15.7) g/dL Hct (36.0-46.0) % MCV (80-95) fL MCH (27.0-33.0) pg MCHC (32.0-36.0) % RDW (11.7-14.6) % Plt Count (130-400) 10^3/uL MPV (8.0-11.0) fL Immature Gran % Neutrophils % Lymphocytes % Monocytes % Eosinophils % Basophils % Nucleated RBC % (0.0-0.3) % Absolute Neutrophils (1.2-6.7) 10^3/uL Absolute Lymphocytes (1.2-3.4) 10^3/uL Absolute Monocytes (0.1-0.8) 10^3/uL Absolute Eosinophils (0.0-0.7) 10^3/uL Absolute Basophils (0.0-0.2) 10^3/uL VBG Lactate (0.6-1.4) mmol/L Sodium (136-145) mmol/L Potassium (3.5-5.1) mmol/L Chloride (98-107) mmol/L Carbon Dioxide (21.0-32.0) mmol/L Anion Gap (3-11) mmol/L BUN (7-18) mg/dL Creatinine (0.55-1.02) mg/dL Est GFR (CKD-EPI 2020) (mL/min/1.73m2) Glucose (74-106) mg/dL Calcium (8.5-10.1) mg/dL Magnesium (1.8-2.4) mg/dL Total Bilirubin (0.2-1.0) mg/dL AST (15-37) U/L ALT (14-59) U/L Alkaline Phosphatase (46-116) U/L Troponin I (<or=60) ng/L < 50 Total Protein (6.4-8.2) g/dL Albumin (3.4-5.0) g/dL Lipase (16-77) U/L 11 L Urine Color (Yellow) Yellow Urine Clarity (Clear) Clear Urine pH (5-8) 5.5 Ur Specific [place] (1.005-1.025) 1.020 Urine Protein (Negative) mg/dL 100 H Urine Ketones (Negative) mg/dL 15 H Urine Blood (Negative) Negative Urine Nitrite (Negative) Negative Urine Bilirubin (Negative) Moderate H Urine Urobilinogen (Up to 0.2) mg/dL 1.0 H Ur Leukocyte Esterase (Negative) Small H Urine RBC (0-2) HPF 5-10 H Urine WBC (0-5) HPF >50 H Ur Epithelial Cells (Negative) HPF Many Urine Crystals (Negative) HPF Negative Urine Bacteria (Negative) HPF Moderate Urine Casts (Negative) LPF 0-2 Coarse Granular Urine Mucus (Negative) Moderate Urine Other (Negative) Mod Transitional Ur Culture Indicated? No/Sq. Contamination Urine Glucose (Negative) mg/dL Negative COVID-19 Source SARS-CoV-2 (PCR) (Negative) Influenza Type A (PCR) (Negative) Influenza Type B (PCR) (Negative) RSV (PCR) (Negative) Range/Units 03/22/23 03/22/23 03/22/23 11:27 12:25 12:25 WBC (4.4-10.8) 10^3/uL RBC (3.93-5.22) 10^6/uL Hgb (11.2-15.7) g/dL Hct (36.0-46.0) % MCV (80-95) fL MCH (27.0-33.0) pg MCHC (32.0-36.0) % RDW (11.7-14.6) % Plt Count (130-400) 10^3/uL MPV (8.0-11.0) fL Immature Gran % Neutrophils % Lymphocytes % Monocytes % Eosinophils % Basophils % Nucleated RBC % (0.0-0.3) % Absolute Neutrophils (1.2-6.7) 10^3/uL Absolute Lymphocytes (1.2-3.4) 10^3/uL Absolute Monocytes (0.1-0.8) 10^3/uL Absolute Eosinophils (0.0-0.7) 10^3/uL Absolute Basophils (0.0-0.2) 10^3/uL VBG Lactate (0.6-1.4) mmol/L 1.5 H Sodium (136-145) mmol/L 136 Potassium (3.5-5.1) mmol/L 3.7 Chloride (98-107) mmol/L 103 Carbon Dioxide (21.0-32.0) mmol/L 26.4 Anion Gap (3-11) mmol/L 6.6 BUN (7-18) mg/dL 27 H Creatinine (0.55-1.02) mg/dL 1.3 H Est GFR (CKD-EPI 2020) (mL/min/1.73m2) 40.55 Glucose (74-106) mg/dL 131 H Calcium (8.5-10.1) mg/dL 7.7 L Magnesium (1.8-2.4) mg/dL 2.3 Total Bilirubin (0.2-1.0) mg/dL AST (15-37) U/L ALT (14-59) U/L Alkaline Phosphatase (46-116) U/L Troponin I (<or=60) ng/L Total Protein (6.4-8.2) g/dL Albumin (3.4-5.0) g/dL Lipase (16-77) U/L Urine Color (Yellow) Urine Clarity (Clear) Urine pH (5-8) Ur Specific [place] (1.005-1.025) Urine Protein (Negative) mg/dL Urine Ketones (Negative) mg/dL Urine Blood (Negative) Urine Nitrite (Negative) Urine Bilirubin (Negative) Urine Urobilinogen (Up to 0.2) mg/dL Ur Leukocyte Esterase (Negative) Urine RBC (0-2) HPF Urine WBC (0-5) HPF Ur Epithelial Cells (Negative) HPF Urine Crystals (Negative) HPF Urine Bacteria (Negative) HPF Urine Casts (Negative) LPF Urine Mucus (Negative) Urine Other (Negative) Ur Culture Indicated? Urine Glucose (Negative) mg/dL COVID-19 Source Nasopharynx SARS-CoV-2 (PCR) (Negative) Negative Influenza Type A (PCR) (Negative) Negative Influenza Type B (PCR) (Negative) Negative RSV (PCR) (Negative) Negative ECG Data Attestation: I personally reviewed and interpreted this ECG (s) as follows: Interpretation: Rate of 66, sinus, normal axis, prolonged TN 228, prolonged QTc at 517. No acute ischemic findings. HPI General Mode of arrival: EMS . Date/Time Provider Initiated Documentation: 03/22/23 08:51 . Limitations to Documentation: no limitations . Information obtained by: patient . HPI Narrative: Patient is an 83-year-old female with a history of hypertension, hyperlipidemia, atrial fibrillation on Eliquis, CVA, depression, paraesophageal hernia repair, with history of left and right knee TKA, status post right quadriceps and arthrotomy rupture repair in December 2022 was was seen at the PCP office yesterday for follow-up status post her recent knee surgery and had mentioned UTI symptoms and was found on a urine dip to have a possible UTI and was started on Macrobid who presents for nausea and diarrhea since last night. She admits to 3 episodes of watery brown diarrhea since last night and one episode this morning. She admits to nausea but denies any vomiting. Patient states her symptoms started after taking only 1 dose of her Macrobid. She has not taken any Macrobid today. She is denying any fever, chest pain, difficulty breathing, abdominal pain, hematemesis or hematochezia. Related Data Home Medications Medication Instructions Recorded Confirmed calcium-vitamin D3-vitamin K 500 1 ea PO DAILY 11/16/16 03/30/23 mg-1,000 unit-40 mcg chewable tablet denosumab 60 mg/mL subcutaneous 60 mg SQ [id number] 11/16/16 03/30/23 syringe (Prolia) fluticasone fur. 100 mcg-umeclid 1 inh inhalation DAILY 07/21/21 03/30/23 62.5 mcg-vilant 25 mcg inhalat.powder (Trelegy Ellipta) apixaban 2.5 mg tablet 2.5 mg PO BID #180 tabs 08/24/22 03/30/23 albuterol sulfate 90 mcg/actuation 2 puff inhalation Q6H PRN PRN 12/29/22 03/30/23 aerosol inhaler fluticasone furoate 200 1 inh inhalation DAILY 12/29/22 03/30/23 mcg-vilanterol 25 mcg/dose inhalation powder (Breo Ellipta) omeprazole 40 mg capsule,delayed 40 mg PO BID 12/29/22 03/30/23 release acetaminophen 500 mg tablet 500 mg PO Q6H PRN pain 02/01/23 03/30/23 bupropion HCl 150 mg 24 hr tablet, 150 mg PO QAM #90 tabs 02/01/23 03/30/23 extended release fenofibrate nanocrystallized 48 mg 48 mg PO DAILY #90 tabs 02/06/23 03/30/23 tablet metoprolol succinate 50 mg 50 mg PO DAILY #90 tabs 02/06/23 03/30/23 tablet,extended release 24 hr prochlorperazine maleate 10 mg 5 mg PO BID PRN nausea and 03/05/23 03/30/23 tablet vomiting #20 tabs Previous Rx's Medication Instructions Recorded apixaban 2.5 mg tablet 2.5 mg PO BID #180 tabs 08/24/22 bupropion HCl 150 mg 24 hr tablet, 150 mg PO QAM #90 tabs 02/01/23 extended release fenofibrate nanocrystallized 48 mg 48 mg PO DAILY #90 tabs 02/06/23 tablet metoprolol succinate 50 mg 50 mg PO DAILY #90 tabs 02/06/23 tablet,extended release 24 hr prochlorperazine maleate 10 mg 5 mg PO BID PRN nausea and 03/05/23 tablet vomiting #20 tabs Allergies Allergy/AdvReac Type Severity Reaction Status Date / Time Penicillins Allergy Unknown Swelling/Ed Verified 03/30/23 11:12 bobo/Itching ciprofloxacin [From Cipro] AdvReac Intermediate Dizziness/L Verified 03/30/23 11:12 ighthead Sulfa (Sulfonamide AdvReac Unknown GI symptoms Verified 03/30/23 11:12 Antibiotics) General Stated Complaint: Nausea/Vomit/Diar HAILEE: 4 Review of Systems All systems reviewed & are unremarkable except as noted in HPI and below Constitutional Constitutional: Reports as per HPI, Denies chills and Denies fever(s) Eyes Eyes: Denies blurry vision ENT Ears, Nose, Mouth, and Throat: Denies dizziness, Denies sore throat and Denies throat swelling Cardiovascular Cardiovascular: Denies chest pain and Denies dyspnea Respiratory Respiratory: Denies cough and Denies dyspnea Gastrointestinal Gastrointestinal: Denies abdominal pain, Reports diarrhea, Reports nausea and Denies vomiting Genitourinary Genitourinary: Denies hematuria and Denies dysuria Musculoskeletal Musculoskeletal: Denies back pain and Denies numbness Integumentary/Breasts Skin/Breast: Denies lesions and Denies rash Neurologic Neurologic: Denies dizziness, Denies localized weakness and Denies numbness Allergic/Immunologic Allergic/Immunologic: Denies throat swelling PFSH All Active Problems (Updated 03/22/23 @ 14:40 by Mehreen Simon DO) UTI (urinary tract infection) (Acute) Nausea (Acute) Diarrhea (Acute) Depression (Chronic) Falls frequently (Acute) Traumatic rupture of right quadriceps tendon (Acute 12/29/22) s/p repair Dr. Dixon Degenerative joint disease of right hip (Acute) Painful total knee replacement, right (Acute) s/p revision of patellar component Dr. Dixon DOS: 09/06/22 Status post right knee replacement (Acute) Regurgitation and rechewing (Acute ~10/2021) 12/13/21 [facility] GI, gastric emptying scan ordered and consult with [employer] Lung nodule < 6cm on CT (Acute) LEWIS (dyspnea on exertion) (Acute) Paraesophageal hernia (Acute) Urinary incontinence (Acute) Vomiting (Acute) Fall (Acute) Rib pain on left side (Acute) Left shoulder pain (Acute) Iliotibial band syndrome of right side (Acute) Status post total right knee replacement (Acute 11/20/11) Anxiety and depression (Chronic 09/05/17) Anticoagulant long-term use (Acute) Cough (Acute) Wheeze (Acute) Hiatal hernia (Chronic) Adjustment disorder, unspecified (Acute 11/16/16) Atrial fibrillation (Chronic 01/22/18) Essential hypertension (Acute 04/28/16) Gastroesophageal reflux disease (Chronic 04/28/16) Due to Hiatial Hernia History of CVA (cerebrovascular accident) (Acute 10/24/15) Dry Stroke, 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) History of gallstones (Acute 04/28/16) Hyperlipidemia (Acute 04/28/16) Osteoporosis (Chronic 02/13/17) left hip T SCORE -3.3 Prolia inj q6m, first 01/2017, 02/25/21 Total T-Score: - 2.5 Hyperglycemia (Acute) Hypokalemia (Acute) Medical History Actinic keratosis [place] angioma Closed extra-articular fracture of distal end of right radius (01/31/17) Dehydration 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 per Dr. Addison Shore 04/25/2016 Keratoacanthoma (~05/2022) [facility] Derm (Left trunk) Seborrheic keratoses Surgical History Cholecystectomy (01/10/18) Extraction of cataract H/O endoscopy (10/24/21) Open Carpal Tunnel release right S/P repair of paraesophageal hernia (08/15/21) [facility] Thoracic total knee arthroplkasty (07/11/17) left knee arthroplasty Family History Mother Stroke Father Neoplasm Grandmother , CVA No problems noted. Brother Diabetes Brother Diabetes Brother Diabetes Brother Diabetes Brother Diabetes Brother Diabetes Social History Smoking/Tobacco Use Status: Former Tobacco Use Quit Date: 10/29/85 Tobacco: How many years used: 25 Smoking risk assessment performed?: Yes Alcohol Intake: never Drug use: Never Substance use type: does not use Household members: none Number of Children: 4 Current gender identity: female What type of physical activity do you participate in: none Do you feel safe at home: Yes Do you feel safe in your relationship?: Yes Exam Const General: cooperative and no acute distress Orientation: alert, awake and oriented x3 HENMT Head: normal to inspection Face and sinus: normal facial exam Eyes General: appearance normal, both eyes and all related structures Pupils: PERRL EOM: EOM intact bilaterally Neck Neck: normal visual inspection and No submandibular swelling Lymphatic: no lymphadenopathy noted Chest Chest: normal inspection of the chest and no tenderness Resp Effort & Inspection: normal respiratory effort and able to speak in complete sentences Auscultation: clear to auscultation bilaterally Cardio Rate: regular rate Rhythm: regular rhythm GI Inspection: normal to inspection Palpation: soft, not firm, not rigid and tender suprapubicly Auscultation: hypoactive bowel sounds Back/Spine/Pelvis Back: no CVA tenderness Skin General skin exam: no rashes or lesions noted Neuro General: patient alert, patient awake and patient oriented x3 Cognition: normal cognition Speech: speech normal Motor: muscle tone normal throughout Sensory Exam: no sensory deficits noted Extrem General: normal to inspection, full ROM and no edema Psych Appearance: grossly normal Mental Status: mental status grossly normal Speech and Movement: speech and movement normal Affect: normal affect
[2023-03-22 08:56] LABS: Abs Immature Grans 0.16 10^3/uL (0.0-0.06); Absolute Basophil Count 0.05 10^3/uL (0.0-0.2); Absolute Eosinophil Count 0.01 10^3/uL (0.0-0.7); Absolute Lymphocyte Count 0.04 10^3/uL (1.2-3.4); Absolute Monocyte Count 0.32 10^3/uL (0.1-0.8); Absolute Neutrophil Count 12.66 10^3/uL (1.2-6.7); Basophils % 0.4; Eosinophils % 0.1; HCT 37.8 % (36.0-46.0); HGB 12.6 g/dL (11.2-15.7); Immature Grans % 1.2; Lymphocytes % 0.3; MCH 30.7 pg (27.0-33.0); MCHC 33.3 % (32.0-36.0); MCV 92 fL (80-95); Monocytes % 2.4; Neutrophils % 95.6; Platelet Count 246 10^3/uL (130-400); RDW 13.2 % (11.7-14.6); RDW-SD 44.7 fL; WBC 13.24 10^3/uL (4.4-10.8)
[2023-03-22 09:01] LABS: Lactate 2.5 mmol/L (0.6-1.4)
--- NOTE | 2023-03-22 09:15 | DI.CT_ITS ---
Exam(s) CT ABDOMEN PELVIS W EXAM: CT ABDOMEN PELVIS W CLINICAL HISTORY: lower abd tenderness, nausea, diarrhea TECHNIQUE: Imaging Protocol: Axial computed tomography images with coronal and sagittal reformatted images were created and reviewed CONTRAST MATERIAL: Intravenous: Omnipaque 350 Contrast volume:90 mL Oral: No COMPARISON: CT CT ABDOMEN PELVIS WO from 09/04/2020 FINDINGS: ABDOMEN: Lung Bases: Surgical changes are seen at the gastroesophageal junction. There is no evidence of a he rnia. Liver: Normal density. No measurable mass. Portal, Superior Mesenteric, and Splenic Veins: Unremarkable. Gallbladder and Biliary Tract: Status post cholecystectomy. No change in appearance of the bile duct s. No intrahepatic biliary ductal dilatation. Pancreas: Normal density, no abnormal calcifications or inflammatory process. Spleen: Normal. Adrenals: No masses seen. Kidneys: Normal size, contour and axis. No radiodense stones or obstructive uropathy. There are bilat eral simple renal cysts. No follow-up is recommended. Abdominal Aorta: Abdominal portion non-dilated. Atherosclerosis is present. Bowel: There is diverticulosis of the colon, but no evidence of acute diverticulitis. There is no ev idence of bowel obstruction or bowel wall thickening. There are fluid-filled loops of small bowel se en in the pelvis. This can be seen with a diarrheal illness. No evidence of appendicitis. Peritoneal Cavity: No ascites, collection or mesenteric inflammatory response. No free air. Lymph Nodes: Within normal limits. Bones: Within normal limits for the patient's age. There are marked degenerative changes seen in the right hip with [id number] contact and bony hypertrophy. There is an old T11 compression fracture deformity. Soft Tissues: There is a small fat containing midline upper abdominal wall hernia. There is a small fat containing inguinal hernia on the right. PELVIS: Bladder: Symmetric distention, no gross wall thickening. Reproductive Organs: Unremarkable as visualized. Lymph Nodes: Within normal limits. Bones: Within normal limits for the patient's age. IMPRESSION: 1. There is fluid seen in loops of small bowel which can be seen with a diarrheal illness. 2. There is diverticulosis in the colon but no evidence of acute diverticulitis. 3. Incidental findings in the abdomen and pelvis as described above. 4. Findings were discussed with Dr. Simon at 10:52 a.m. on 03/22/2023. RADIATION DOSE DELIVERED: 848.82mGy.cm Total DLP DATA REPOSITORY: All CT scans at this facility are submitted to the National Radiology Data Registry (NRDR) Dose Index Registry (DIR) with the [employer] (A[employer]). RADIATION OPTIMIZATION: All CT scans at this facility use at least one of these dose optimization te chniques: automated exposure control; mA and/or kV adjustment per patient size (includes targeted exa ms where dose is matched to clinical indication); or iterative reconstruction.
[2023-03-22] MEDS: Normal Saline 500 ML IV (09:21)
[2023-03-22] MEDS: Ondansetron 4 MG/2 ML VIAL IVP (09:27)
[2023-03-22 09:29] LABS: ALT 27 U/L (14-59); AST 45 U/L (15-37); Albumin 3.2 g/dL (3.4-5.0); Alkaline Phosphatase 69 U/L (46-116); Anion Gap 8.6 mmol/L (3-11); BUN 27 mg/dL (7-18); Bilirubin, Total 0.6 mg/dL (0.2-1.0); CO2 27.4 mmol/L (21.0-32.0); CREATININE 1.4 mg/dL (0.55-1.02); Calcium 8.5 mg/dL (8.5-10.1); Chloride 101 mmol/L (98-107); Glucose 142 mg/dL (74-106); Magnesium 1.3 mg/dL (1.8-2.4); Potassium 3.8 mmol/L (3.5-5.1); Sodium 137 mmol/L (136-145); Total Protein 6.3 g/dL (6.4-8.2); Troponin I < 50 ng/L (<or=60)
[2023-03-22] MEDS: ACETAMINOPHEN 1,000 MG/100 ML BTL 400 MG IVPB (09:30)
[2023-03-22 09:42] LABS: Bilirubin Moderate (Negative); Blood Negative (Negative); Clarity Clear (Clear); Glucose Negative (Negative); Ketones 15 mg/dL (Negative); Leukocyte Esterase Small (Negative); Nitrite Negative (Negative); pH 5.5 (5-8)
[2023-03-22 09:48] LABS: Bacteria Moderate HPF (Negative); C & S Indicated? No/Sq. Contamination; Casts 0-2 Coarse Granular LPF (Negative); Crystals Negative HPF (Negative); Epithelial Cells Many HPF (Negative); Mucus Moderate (Negative); Other Cells Mod Transitional (Negative); WBC >50 HPF (0-5)
[2023-03-22] MEDS: Normal Saline - Diluent 50 ML VIAL IJ (10:17)
[2023-03-22] MEDS: Normal Saline Flush 10 ML SYR IJ (10:17)
[2023-03-22] MEDS: Omnipaque 350 MG/ML 500 ML BTL-Imaging package 91 ML IJ (10:17)
[2023-03-22] MEDS: MAGNESIUM SULFATE 2 GM/50 ML BAG IVPB (10:33)
[2023-03-22] MEDS: Normal Saline 250 ML 500 ML IV (10:50)
[2023-03-22] MEDS: Normal Saline 250 ML IV (11:20)
[2023-03-22 11:40] LABS: Troponin I < 50 ng/L (<or=60)
[2023-03-22 12:12] LABS: Lipase 11 U/L (16-77)
[2023-03-22 12:30] LABS: Lactate 1.5 mmol/L (0.6-1.4)
[2023-03-22 12:48] LABS: Anion Gap 6.6 mmol/L (3-11); BUN 27 mg/dL (7-18); CO2 26.4 mmol/L (21.0-32.0); CREATININE 1.3 mg/dL (0.55-1.02); Calcium 7.7 mg/dL (8.5-10.1); Chloride 103 mmol/L (98-107); Estimated GFR 40.55 (mL/min/1.73m2); Glucose 131 mg/dL (74-106); Magnesium 2.3 mg/dL (1.8-2.4); Potassium 3.7 mmol/L (3.5-5.1); Sodium 136 mmol/L (136-145)
[2023-03-22 12:51] LABS: COVID-19 PCR Negative (Negative); Influenza A PCR Negative (Negative); Influenza B PCR Negative (Negative); RSV PCR Negative (Negative)
[2023-03-22 12:54] LABS: Source Nasopharynx
[2023-03-22] MEDS: cefTRIAXone 1 GM/50 ML BAG IVPB (14:15)
[2023-03-22] MEDS: Calcium Carbonate *TUMS* 500 MG CHEW 1000 MG PO (15:02)
[2023-03-22] MEDS: Cephalexin 500 MG CAP, 4 CAPS/BTL PO (15:02)
== END 2023-03-22 15:21 | disposition home or self-care (01) ==
PROVIDERS: Emergency Provider Physician Assistant; PCP Nurse Practitioner
DX: R19.7 Diarrhea, unspecified (principal); R11.2 Nausea with vomiting, unspecified; N39.0 Urinary tract infection, site not specified; I10 Essential (primary) hypertension; I48.91 Unspecified atrial fibrillation; Z96.653 Presence of artificial knee joint, bilateral
CPT/HCPCS: 36415; 80048; 80053; 83690; 87637; 93005; 96361; 96365; 96366; 96367; 96375; 99285; 74177; 81003; 81015; 83605; 83735; 84484; 85025; 93010; 99284; J0131; J0696; J2405

== ENCOUNTER → 2023-03-30 11:11 | Outpatient (BNVA) | payer MEDICARE, SELFPAY | PROVIDERS: PCP Nurse Practitioner; Visit Provider Physician Assistant | DX: S76.111D Strain of right quadriceps muscle, fascia and tendon, subsequent encounter (principal); X58.XXXD Exposure to other specified factors, subsequent encounter ==

== ENCOUNTER 2023-04-24 11:30 | Outpatient (REF) | payer MEDICARE, SELFPAY ==
[2023-04-27 07:11] LABS: Campylobacter PCR Negative (Negative); Salmonella PCR Negative (Negative); Shiga Toxin PCR Negative (Negative); Shigella/Enteroinvasive Ecoli Negative (Negative)
== END 2023-04-24 11:31 | disposition home or self-care (01) ==
LOC: LBN 11:30
PROVIDERS: PCP Nurse Practitioner; Visit Provider Nurse Practitioner
DX: R19.7 Diarrhea, unspecified (principal)
CPT/HCPCS: 87505

== ENCOUNTER 2023-05-02 15:55 | Outpatient (CLI) | payer MEDICARE, MEDICAID, SELFPAY ==
--- NOTE | 2023-05-02 15:15 | DI.CT_ITS ---
Exam(s) CT PELVIC WO EXAM: CT PELVIC WO CLINICAL HISTORY: injury, back, hip and pelvis pain M25.559 PAIN IN HIP. TECHNIQUE: Imaging Protocol: Axial computed tomography images with coronal and sagittal reformatted images were created and reviewed. CONTRAST MATERIAL: Oral: yes / no COMPARISON: CT CT ABDOMEN PELVIS W from 03/22/2023 FINDINGS: Bladder: Symmetric distention, no gross wall thickening. Bowel: Sigmoid diverticulosis. No evidence of diverticulitis. Large quantity of stool in the colon. No obstruction or bowel wall thickening. Peritoneal cavity: No ascites, collection or mesenteric inflammatory response. Reproductive: Unremarkable. Bones: Bones appear osteoporotic. No fracture is identified there are severe degenerative changes o f both hips, right greater than left. There is subchondral cysts in the left superior acetabulum. D egenerative changes are also present in the lower lumbar spine.. No widening of the SI joints. Soft tissues: Right inguinal hernia containing a nonobstructed loop of small bowel. It contained f at on the prior exam. No posttraumatic hematoma. IMPRESSION: No evidence of fracture. Severe degenerative changes of both hips, right greater than left. Right inguinal hernia now contains a knuckle of small bowel which does not appear obstructed. RADIATION DOSE DELIVERED: 596.79mGy.cmTotal DLP DATA REPOSITORY: All CT scans at this facility are submitted to the National Radiology Data Registry (NRDR) Dose Index Registry (DIR) with the [employer] ([employer]). RADIATION OPTIMIZATION: All CT scans at this facility use at least one of these dose optimization te chniques: automated exposure control; mA and/or kV adjustment per patient size (includes targeted exa ms where dose is matched to clinical indication); or iterative reconstruction.
--- NOTE | 2023-05-02 15:23 | DI.RAD_ITS ---
Exam(s) XR FEMUR LT EXAM: XR FEMUR LT CLINICAL HISTORY: back, hip, thigh pain M25.552 PAIN IN HIP. TECHNIQUE: 2D digital imaging was performed. Three views. COMPARISON: CT pelvis performed the same day FINDINGS: BONES: No acute fracture is present. No bony destructive lesion is seen. Left knee prosthesis is unr emarkable as visualized.. JOINTS: No dislocation present. Degenerative changes of the left hip joint, with periarticular spurr ing, joint space narrowing and subchondral cyst formation. SOFT TISSUE: Normal. IMPRESSION: Degenerative changes left hip. Left knee prosthesis. No acute abnormality. DATA REPOSITORY: RADIATION DOSE DELIVERED:
--- NOTE | 2023-05-02 16:07 | DI.RAD_ITS ---
Exam(s) XR LUMBAR SPINE COMPLETE EXAM: XR LUMBAR SPINE COMPLETE CLINICAL HISTORY: back, hip, thigh pain M25.559 PAIN IN HIP. TECHNIQUE: 2D digital imaging was performed. Five views. COMPARISON: CR XR DEXA BONE DENSITY W/WO LAILA from 02/25/[address] ABDOMEN PELVIS W from 03/22/2023 FINDINGS: BONES: Stable appearance of T11 compression fracture. Degenerative disc changes and facet degenerati ve changes present. DISKS: Intervertebral disc spaces are maintained. ALIGNMENT: Stable appearance of mild degenerative scoliosis. No spondylolysis or spondylolisthesis. SOFT TISSUE: Normal. IMPRESSION: No acute abnormality. DATA REPOSITORY: RADIATION DOSE DELIVERED:
== END 2023-05-02 16:15 ==
PROVIDERS: PCP Nurse Practitioner; Visit Provider Physician Assistant
DX: M16.0 Bilateral primary osteoarthritis of hip (principal); Z96.652 Presence of left artificial knee joint; M54.50 Low back pain, unspecified; K40.90 Unilateral inguinal hernia, without obstruction or gangrene, not specified as recurrent
CPT/HCPCS: 73552; 72110; 72192

== ENCOUNTER 2023-05-11 15:04 | Outpatient (REF) | payer MEDICARE, SELFPAY ==
[2023-05-11 13:18] LABS: Bilirubin Negative (Negative); Blood Negative (Negative); Clarity Clear (Clear); Glucose Negative (Negative); Ketones Negative (Negative); Leukocyte Esterase Negative (Negative); Nitrite Negative (Negative); Specific Gravity 1.015 (1.005-1.025); Urobilinogen 0.2 mg/dL (Up to 0.2)
== END 2023-05-11 15:05 | disposition home or self-care (01) ==
LOC: LBN 15:04
PROVIDERS: PCP Nurse Practitioner; Visit Provider Nurse Practitioner
DX: R30.0 Dysuria (principal)
CPT/HCPCS: 81003; 87086

== ENCOUNTER 2023-05-29 01:54 | Outpatient (RCR) | payer MEDICARE, MEDICAID, SELFPAY ==
[2023-05-29] MEDS: Denosumab 60 MG/ML SYR SC (13:26)
== END 2023-06-28 23:59 | disposition home or self-care (01) ==
LOC: INF 01:54
PROVIDERS: PCP Nurse Practitioner; Visit Provider Nurse Practitioner
DX: R19.7 Diarrhea, unspecified (principal); M81.0 Age-related osteoporosis without current pathological fracture
CPT/HCPCS: 96372; J0897

== ENCOUNTER → 2023-06-04 10:19 | Outpatient (BNVA) | payer MEDICARE, MEDICAID, SELFPAY | PROVIDERS: PCP Nurse Practitioner; Referring Provider Nurse Practitioner; Visit Provider Student in an Organized Health Care Education/Training Program | DX: M70.52 Other bursitis of knee, left knee (principal); S76.111D Strain of right quadriceps muscle, fascia and tendon, subsequent encounter; X58.XXXD Exposure to other specified factors, subsequent encounter; Z96.653 Presence of artificial knee joint, bilateral | CPT/HCPCS: 20610; J1030 ==

== ENCOUNTER 2023-06-26 15:19 | Outpatient (CLI) | payer MEDICARE, MEDICAID, SELFPAY ==
[2023-06-26 11:54] LABS: Abs Immature Grans 0.03 10^3/uL (0.0-0.06); Absolute Basophil Count 0.07 10^3/uL (0.0-0.2); Absolute Eosinophil Count 0.14 10^3/uL (0.0-0.7); Absolute Lymphocyte Count 1.35 10^3/uL (1.2-3.4); Absolute Monocyte Count 0.55 10^3/uL (0.1-0.8); Absolute Neutrophil Count 4.31 10^3/uL (1.2-6.7); Basophils % 1.1; Eosinophils % 2.2; HCT 39.6 % (36.0-46.0); HGB 13.1 g/dL (11.2-15.7); Immature Grans % 0.5; Lymphocytes % 20.9; MCH 29.6 pg (27.0-33.0); MCHC 33.1 % (32.0-36.0); MCV 90 fL (80-95); MPV 9.1 fL (8.0-11.0); Monocytes % 8.5; Neutrophils % 66.8; Platelet Count 329 10^3/uL (130-400); RBC 4.42 10^6/uL (3.93-5.22); RDW 13.6 % (11.7-14.6); RDW-SD 45.3 fL; WBC 6.45 10^3/uL (4.4-10.8)
[2023-06-26 12:58] LABS: ALT 10 U/L (14-59); AST 8 U/L (15-37); Albumin 3.4 g/dL (3.4-5.0); Alkaline Phosphatase 65 U/L (46-116); BUN 38 mg/dL (7-18); Bilirubin, Total 0.3 mg/dL (0.2-1.0); CREATININE 1.2 mg/dL (0.55-1.02); Calcium 9.2 mg/dL (8.5-10.1); Chloride 107 mmol/L (98-107); Estimated GFR 44.64 (mL/min/1.73m2); Glucose 102 mg/dL (74-106); Potassium 3.7 mmol/L (3.5-5.1); Sodium 142 mmol/L (136-145); Total Protein 6.4 g/dL (6.4-8.2)
== END 2023-06-26 15:20 | disposition home or self-care (01) ==
LOC: LBO 15:23
PROVIDERS: PCP Nurse Practitioner; Visit Provider Nurse Practitioner
DX: R79.89 Other specified abnormal findings of blood chemistry (principal); I10 Essential (primary) hypertension; E78.5 Hyperlipidemia, unspecified; K21.9 Gastro-esophageal reflux disease without esophagitis; I48.91 Unspecified atrial fibrillation
CPT/HCPCS: 36415; 80053; 85025

== ENCOUNTER 2023-07-06 11:06 | Outpatient (CLI) | payer MEDICARE, MEDICAID, SELFPAY ==
--- NOTE | 2023-07-06 11:00 | DI.RAD_ITS ---
Exam(s) XR KNEE LT 2V AP,LAT EXAM: XR KNEE LT 2V AP,LAT CLINICAL HISTORY: left knee pain. TECHNIQUE: 2D digital imaging was performed of the left knee. Two images were obtained. AP and lat eral views were obtained. COMPARISON: CR,XR XR KNEES MERCHANT ONLY from 12/21/2022 CR,XR XR KNEES MERCHANT ONLY from 12/21/2022 CR XR FEMUR LT from 05/02/2023 FINDINGS: BONES: No acute fracture is present. No bony destructive lesion is seen. JOINTS: There are findings of a left total knee replacement. The orthopedic hardware appears in good position. No lucencies are seen around the orthopedic hardware. No joint effusion is seen. No loos e body. SOFT TISSUE: Normal. IMPRESSION: Left total knee replacement. DATA REPOSITORY: RADIATION DOSE DELIVERED:
== END 2023-07-06 11:07 | disposition home or self-care (01) ==
LOC: DIORS 11:06
PROVIDERS: PCP Nurse Practitioner; Referring Provider Nurse Practitioner; Visit Provider Student in an Organized Health Care Education/Training Program
DX: Z96.652 Presence of left artificial knee joint (principal); M70.52 Other bursitis of knee, left knee
CPT/HCPCS: 99213; 73560

== ENCOUNTER → 2023-07-25 00:23 | Outpatient (CLI) | payer MEDICARE, MEDICAID, SELFPAY ==
--- NOTE | 2023-07-25 08:00 | DI.NM_ITS ---
Exam(s) NM BONE SCAN 3 PHASE EXAM: NM BONE SCAN 3 PHASE CLINICAL HISTORY: PAIN, ? LOOSENING.m70/52.t84.84xa. TECHNIQUE: Injected Dose: 24 mCi Tc-99m MDP COMPARISON: CR XR CHEST 2V PA LATERAL from 03/07/[address] CHEST WO from 03/15/2021 NM NM BONE SCAN 3 PHASE from 08/02/2022 CR XR HIP RT COMPLETE AP PELVIS from 11/30/2022 CR XR LUMBAR SPINE COMPLETE from 05/02/2023 CR XR FEMUR LT from 05/02/2023 CR XR KNEE LT 2V AP,LAT from 07/06/[address] LOWER EXTREMITY LT WO from 07/25/2023 FINDINGS: Perfusion: Symmetric. Blood Pool: Symmetric. Delayed: There is increased uptake seen in the region of the left humeral head. There are areas of i ncreased radiotracer uptake in the consecutive left ribs most consistent with old fractures. There i s increased radiotracer uptake on the right at the L5-S1 facet likely reflecting degenerative changes as identified on the x-ray of the lumbar spine. There is increased uptake in the right hip consiste nt with the patient's known marked degenerative changes. Photopenic areas are seen in the knees bila terally consistent with the patient's bilateral total knee replacement. No abnormal uptake is seen i n either knee. IMPRESSION: 1. No abnormal uptake is seen in the left knee to suggest infection or loosening. 2. Increased radiotracer uptake seen in the left humeral head. This is indeterminate. X-ray of the left shoulder is recommended for further evaluation. Unexpected findings DATA REPOSITORY:
--- NOTE | 2023-07-25 08:00 | DI.CT_ITS ---
Exam(s) CT LOWER EXTREMITY LT WO EXAM: CT LOWER EXTREMITY LT WO CLINICAL HISTORY: PAIN, ?LOOSENING,bursitis lt knee m70.52,t84.84xa. TECHNIQUE: Imaging Protocol: Axial computed tomography images with coronal and sagittal reformatted images were created and reviewed. COMPARISON: CR XR KNEE LT 2V AP,LAT from 07/06/2023 FINDINGS: There is artifact from the patient's total knee replacement hardware. Bones: No suspicious lucencies are seen around the orthopedic hardware to suggest loosening. Bony a lignment is satisfactory. No cellulitic or osteomyelitic changes are identified. No joint effusion is seen. No lytic or sclerotic lesions are identified. Soft Tissues: No fluid collection is seen in the soft tissues around the knee. The anterior and post erior soft tissues immediately around the orthopedic hardware cannot be adequately evaluated. IMPRESSION: 1. The patient has a left total knee replacement. No definite evidence of hardware failure is seen. 2. No fluid collections are seen in the surrounding soft tissues. This is limited by the artifact fr om the orthopedic hardware. RADIATION DOSE DELIVERED: 247.49mGy.cm Total DLP 247.49mGy.cm Total DLP DATA REPOSITORY: All CT scans at this facility are submitted to the National Radiology Data Registry (NRDR) Dose Index Registry (DIR) with the [employer] ([employer]). RADIATION OPTIMIZATION: All CT scans at this facility use at least one of these dose optimization te chniques: automated exposure control; mA and/or kV adjustment per patient size (includes targeted exa ms where dose is matched to clinical indication); or iterative reconstruction.
[2023-07-26 10:04] LABS: ESR (LRH) 11 mm/hr
== END ==
PROVIDERS: PCP Nurse Practitioner; Visit Provider Student in an Organized Health Care Education/Training Program
DX: T84.84XA Pain due to internal orthopedic prosthetic devices, implants and grafts, initial encounter (principal); M70.52 Other bursitis of knee, left knee
CPT/HCPCS: 36415; 85652; 73700; 78315; 86140

== ENCOUNTER 2023-12-04 03:35 | Outpatient (RCR) | payer MEDICARE, MEDICAID, SELFPAY ==
[2023-12-04] MEDS: Denosumab 60 MG/ML SYR SC (12:58)
== END 2023-12-27 23:59 | disposition home or self-care (01) ==
LOC: INF 03:35
PROVIDERS: PCP Nurse Practitioner; Visit Provider Nurse Practitioner
DX: M81.0 Age-related osteoporosis without current pathological fracture (principal)
CPT/HCPCS: 96372; J0897

== ENCOUNTER 2023-12-28 13:42 | Outpatient (REF) | payer MEDICARE, MEDICAID, SELFPAY ==
[2023-12-28 15:25] LABS: Bilirubin Small (Negative); Blood Negative (Negative); Clarity Sl Cloudy (Clear); Glucose Negative (Negative); Ketones Trace mg/dL (Negative); Leukocyte Esterase Small (Negative); Nitrite Negative (Negative); Specific Gravity >= 1.030 (1.005-1.025); Urobilinogen 0.2 mg/dL (Up to 0.2)
[2023-12-28 15:36] LABS: Bacteria Negative HPF (Negative); C & S Indicated? No/Sq. Contamination; Casts 0-2 Hyaline LPF (Negative); Crystals Few Calcium Oxalate HPF (Negative); Epithelial Cells Many HPF (Negative); Mucus Moderate (Negative); Other Cells Rare Transitional (Negative); RBC Negative HPF (0-2)
== END 2023-12-28 13:43 | disposition home or self-care (01) ==
LOC: LBN 13:42
PROVIDERS: PCP Nurse Practitioner; Visit Provider Emergency Medicine
DX: R30.0 Dysuria (principal)
CPT/HCPCS: 81003; 81015

== ENCOUNTER 2024-01-01 17:02 | Inpatient (IN) | payer MEDICARE, MEDICAID, SELFPAY ==
[2024-01-01] VITALS (48 sets, daily range): BP systolic 96–169; BP diastolic 48–107; PULSE 59–106; RESP 14–30; TEMP 36.1–38.7; O2SAT 90–93
[2024-01-01] MEDS: Glucose Oral Gel 15 GM/37.5 GM TUBE (17:05)
--- NOTE | 2024-01-01 17:26 | ED.GENADUL_ITS ---
Discharge Plan Disposition Patient Disposition: Admit to [facility] Discharge Details Clinical Impression: Colitis, Sepsis, Hypomagnesemia Primary Care Provider: Patricia Garza ED Provider: Prabha Rivera Home Meds and New Rx's Prescriptions: No Action diclofenac sodium 1 % gel 2 - 4 g topical QID PRN (Reason: pain) Qty: 100 0RF Rx Instructions: 2G for upper extremity joints; 4G for lower extremity joints Trelegy Ellipta 100-62.5-25 mcg blister with device 1 inh inhalation DAILY acetaminophen 500 mg tablet 500 mg PO Q6H PRN (Reason: pain) bupropion HCl 300 mg tablet extended release 24 hr 300 mg PO QAM Qty: 90 3RF Prolia 60 MG/1 ML syringe 60 mg SQ [id number] Patient Comments: 07/09/13 per pt not due until next month, DCW calcium-vitamin D3-vitamin K 1 EACH tablet,chewable 1 ea PO DAILY fenofibrate nanocrystallized 48 mg tablet 48 mg PO DAILY Qty: 90 3RF metoprolol succinate 50 mg tablet extended release 24 hr 50 mg PO DAILY Qty: 90 3RF prochlorperazine maleate 10 mg tablet 5 mg PO BID PRN (Reason: nausea and vomiting) Qty: 20 0RF Rx Instructions: 1/2 to 1 tablet twice a day as needed for nausea/vomiting apixaban 2.5 mg tablet 2.5 mg PO BID Qty: 180 3RF omeprazole 40 mg capsule,delayed release(DR/EC) See Rx Instructions .ROUTE .COMPLEX Qty: 56 5RF Dose Instruction: TAKE 1 CAPSULE BY MOUTH TWICE A DAY Rx Instructions: TAKE 1 CAPSULE BY MOUTH TWICE A DAY fluticasone furoate-vilanterol [Breo Ellipta] 200-25 mcg/dose Blister With Dev ice 1 inh INHALATION DAILY albuterol sulfate 90 mcg/actuation Hfa Aerosol Inhaler 2 puff INHALATION Q6H PRN PRN HPI General Date/Time Provider Initiated Documentation: 01/01/24 17:08 . HPI Narrative: Linda is an 83-year-old female with history of hypertension, hyperlipidemia, A- fib treated with Eliquis, GERD, osteoporosis, and history of CVA in 2015 who presents to the emergency department today for evaluation of dizziness. She reports that she has not been feeling well since this morning, says she has been feeling weak. This afternoon ambulance was called because she was feeling dizzy/lightheaded. She was treated for urinary tract infection on 12/28/23 for sx of urinary frequency and cloudiness; urine was positive for leukocytes and she was treated with Macrobid. She says that she has not eaten today because she did not have anyone fix food for her. She was febrile and vomited x 1 en route to the emergency department per EMS; blood glucose was in the 50s. She endorses congestion, says she otherwise feels well. Denies cough, shortness of breath, abdominal pain, change in bowel or bladder function. Related Data Home Medications Medication Instructions Recorded Confirmed calcium-vitamin D3-vitamin K 500 1 ea PO DAILY 11/16/16 12/28/23 mg-1,000 unit-40 mcg chewable tablet denosumab 60 mg/mL subcutaneous 60 mg SQ [id number] 11/16/16 12/28/23 syringe (Prolia) fluticasone fur. 100 mcg-umeclid 1 inh inhalation DAILY 07/21/21 12/28/23 62.5 mcg-vilant 25 mcg inhalat.powder (Trelegy Ellipta) albuterol sulfate 90 mcg/actuation 2 puff inhalation Q6H PRN PRN 12/29/22 12/28/23 aerosol inhaler fluticasone furoate 200 1 inh inhalation DAILY 12/29/22 12/28/23 mcg-vilanterol 25 mcg/dose inhalation powder (Breo Ellipta) acetaminophen 500 mg tablet 500 mg PO Q6H PRN pain 02/01/23 12/28/23 fenofibrate nanocrystallized 48 mg 48 mg PO DAILY #90 tabs 02/06/23 12/28/23 tablet metoprolol succinate 50 mg 50 mg PO DAILY #90 tabs 02/06/23 12/28/23 tablet,extended release 24 hr prochlorperazine maleate 10 mg 5 mg (1/2 x 10 mg) PO BID PRN 03/05/23 12/28/23 tablet nausea and vomiting #20 tabs diclofenac sodium 1 % topical gel 2 - 4 g topical QID PRN pain #100 04/27/23 12/28/23 grams bupropion HCl 300 mg 24 hr tablet, 300 mg PO QAM #90 tabs 06/12/23 12/28/23 extended release apixaban 2.5 mg tablet 2.5 mg PO BID #180 tabs 08/07/23 12/28/23 omeprazole 40 mg capsule,delayed See Rx Instructions .Route 11/26/23 12/28/23 release .COMPLEX #56 caps Previous Rx's Medication Instructions Recorded fenofibrate nanocrystallized 48 mg 48 mg PO DAILY #90 tabs 02/06/23 tablet metoprolol succinate 50 mg 50 mg PO DAILY #90 tabs 02/06/23 tablet,extended release 24 hr prochlorperazine maleate 10 mg 5 mg (1/2 x 10 mg) PO BID PRN 03/05/23 tablet nausea and vomiting #20 tabs diclofenac sodium 1 % topical gel 2 - 4 g topical QID PRN pain #100 04/27/23 grams bupropion HCl 300 mg 24 hr tablet, 300 mg PO QAM #90 tabs 06/12/23 extended release apixaban 2.5 mg tablet 2.5 mg PO BID #180 tabs 08/07/23 omeprazole 40 mg capsule,delayed See Rx Instructions .Route 11/26/23 release .COMPLEX #56 caps Allergies Allergy/AdvReac Type Severity Reaction Status Date / Time Penicillins Allergy Unknown Swelling/Ed Verified 01/01/24 17:13 bobo/Itching nitrofurantoin AdvReac Severe Diarrhea Verified 01/01/24 17:13 ciprofloxacin [From Cipro] AdvReac Intermediate Dizziness/L Verified 01/01/24 17:13 ighthead Sulfa (Sulfonamide AdvReac Unknown GI symptoms Verified 01/01/24 17:13 Antibiotics) General Stated Complaint: AMS/LOC HAILEE: 2 Review of Systems Narrative: see HPI Exam Const General: cooperative, comfortable and no acute distress Nutritional Appearance: average body habitus Orientation: alert and awake [facility] Head: normal to inspection Ears: hearing grossly normal bilaterally General nose exam: external nose normal Face and sinus: normal facial exam Mouth: moist mucous membranes abnormal (slightly tacky) Chest Other: mottled skin to chest Resp Effort & Inspection: normal respiratory effort and able to speak in complete sentences Auscultation: clear to auscultation bilaterally GI Inspection: normal to inspection Palpation: soft and nontender Extrem General: no clubbing, cyanosis or edema and no pedal edema Course Vital Signs Vital signs: Vital Signs Temperature 38.1 C H 01/01/24 16:57 Pulse 85 01/01/24 16:57 Respiratory Rate 18 01/01/24 16:57 Blood Pressure 150/98 H 01/01/24 16:57 Pulse Oximetry 90 L 01/01/24 16:57 Temperature 37.9 C H 01/01/24 17:17 Temperature Source Tympanic 01/01/24 17:17 Pulse 76 01/01/24 17:17 Respiratory Rate 18 01/01/24 17:17 Respiratory Effort Normal 01/01/24 17:17 Blood Pressure 169/107 H 01/01/24 17:17 Blood Pressure Position Supine 01/01/24 17:17 Pulse Oximetry 90 L 01/01/24 16:57 Oxygen Delivery Method Nasal Cannula 01/01/24 16:57 Oxygen Flow Rate 4 01/01/24 16:57 Pain Level 0 01/01/24 17:17 Lab/Test Results Lab/Test Results: 01/01/24 17:18 Blood Blood Culture - Pending 01/01/24 17:18 Blood Blood Culture - Pending Medical Decision Making Linda is an 83-year-old female with history of hypertension, hyperlipidemia, A- fib treated with Eliquis, GERD, osteoporosis, and history of CVA in 2014 who presents to the emergency department today for evaluation of dizziness. She reports that she has not been feeling well since this morning, says she has been feeling weak. This afternoon ambulance was called because she was feeling lightheaded (no vertigo). She was treated for urinary tract infection on 12/28/23 for sx of urinary frequency and cloudiness; urine was positive for leukocytes and she was treated with Macrobid. She says that she has not eaten today because she did not have anyone fix food for her. She was febrile and vomited x 1 en route to the emergency department per EMS; blood glucose was in the 50s with pulseox in 80s on RA. She endorses congestion, says she otherwise feels well. Denies headache, vision changes, cough, shortness of breath, abdominal pain, change in bowel or bladder function. History also obtained from Tatiana family friend, who reports she was called to check in on Linda when her daughter was concerned about her (over the phone). She arrived around 4 PM, noticed that Linda was very weak, laying in bed. She was not making sense, stringing words together that did not make sense. She had vomited earlier in the day. EMS was called at that time Physical exam remarkable for mottling to chest. Patient is alert and interactive, in no acute distress. Slightly tacky mucous membranes. PERRL, EOMs intact. Easy work of breathing, lung sounds clear bilateral. Irregularly irregular heart rate. Abdomen soft, nondistended, nontender to palpation. No coolness to extremities. DDx includes but is not limited to: sepsis due to occult infection such as UTI/ pneumonia, viral illness such as flu or COVID, dehydration, electrolyte imbalance I independently interpreted the following tests: CBC notable for mild leukocytosis, white cell count 12.28. Hypomagnesemia noted, magnesium 1.0. CMP notable for elevated BUN to creatinine ratio, creatinine 1.5 BUN 36. Mild hypocalcemia, and mild hypokalemia, 3.4. AG 14.4. VBS reassuring. Initial troponin elevated at 180. Urinalysis significant for specific gravity greater than 1030, consistent with dehydration. Protein 100, trace lysed blood, modera te bilirubin with 1.0 urobilinogen. 100 glucose in urine. Chest x-ray reassuring, no acute findings noted. CT abdomen/pelvis ordered to further evaluate for potential intra-abdominal pathology. EKG remarkable for A-fib and prolonged QTc, 628 today compared to 452 on 08/24/2022; no changes consistent with acute ischemia. Patient was treated for presumed sepsis with 30 cc/kg normal saline, hypo glycemia was treated with oral glucose/apple juice and D50 IV. Blood cultures and labs drawn, IV Rocephin initiated. Patient does have allergy to penicillins, discussed risk of cross sensitivity with pharmacist Luis E, she reports patient has tolerated cephalosporins previously. 1744: Patient reported leg cramping and shaking, saying that she is not sure why she is shaking. IV acetaminophen given for discomfort/reported fever. Temperature rechecked, 98 degrees oral. 2 g magnesium sulfate given for hypomagnesemia. 1814: Blood sugar is back down to 52, second amp of IV dextrose given and 100 cc D5 hung as well as IV NS 2nd liter 1929: blood sugar in 200s; D5 1/2NS paused. Pt sleeping comfortably, VSS on monitor. No hypotension noted. Linda is continuing to report leg pain in her right leg; she says this is chronic pain (I need to have my knee cleaned out again); has a history of osteoarthritis and degenerative joint disease. She reports she normally takes Tylenol for it. As she has already received a dose of Tylenol, 2 mg morphine given for acute discomfort. Palpable dorsalis pedis and posterior tibial pulses equal bilaterally, 5 out of 5 muscle strength to bilateral lower extremities, sensation is intact. No coolness to extremities. 2030: Pt is resting comfortably. Mottling has improved. Second liter of NS running; 2 hour repeat lactate 4.8 (increased from 4.3). Repeat troponin slightly elevated at 220, consistent with demand ischemia. A repeat EKG was performed, NSR, rate 68. QTc slightly improved, 587 at this time. I did review PCP visit from 12/28/2023 in which patient was seen for presumed UTI (cloudy urine, SG 1.030, + leuks), treated with macrobid. She has a history of adverse reaction to Macrobid (nausea/vomiting), says she has taken two doses and started vomiting not long after. CT scan abdomen/pelvis significant for mild wall thickening throughout the colon suspicious for colitis, moderate food contents in the distal esophagus suggesting GERD, few fluid-filled borderline dilated lower abdominal small bowel loops, and question mild gastric/wall thickening which may represent reactive changes of vomiting or gastritis. Consulted with Dr. Hair, hospitalist. He will come down to evaluate patient and admit. Imaging Data Radiologic Study: Radiologist's impression: Exam(s) XR PORTABLE CHEST AP EXAM: XR PORTABLE CHEST AP CLINICAL HISTORY: sepsis TECHNIQUE: 2D digital imaging was performed. COMPARISON: CR XR CHEST 2V PA LATERAL from 03/07/[address] CHEST WO from 03/15/2021 FINDINGS: LUNGS: Clear. No pleural abnormality seen. HEART: Mildly enlarged. AORTA: Normal diameter. BONES: Severe degenerative changes of the left shoulder. Soft tissues: Unremarkable. Previously noted large hiatal hernia no longer seen. IMPRESSION: No acute findings. Quality:SDOH Health Related Social Needs: No Data to Display Critical Care Time Critical Care Time Critical Care Time: Yes Total Critical Care Time: 60 Attestation: I attest that I spent 60 minutes of critical care time in managing this patient for septic shock, consulting with my attending physician, reviewing repeat EKGs, frequent reassessments of the patient, and review of external records. [facility] All Active Problems (Updated 01/01/24 @ 21:43 by Hal Hair MD) Fever (Acute) Hypomagnesemia (Acute) Sepsis (Acute) Colitis (Acute) Pes anserinus bursitis of left knee (Acute) DEPO MEDROL 06/04/23 Depression (Chronic) Falls frequently (Acute) Traumatic rupture of right quadriceps tendon (Acute 12/29/22) s/p repair Dr. Dixon Degenerative joint disease of right hip (Acute) Painful total knee replacement, right (Acute) s/p revision of patellar component Dr. Dixon DOS: 09/06/22 Status post right knee replacement (Acute) Regurgitation and rechewing (Acute ~10/2021) 12/13/21 [facility] [place], gastric emptying scan ordered and consult with Economic Development Coordinator Lung nodule < 6cm on CT (Acute) LEWIS (dyspnea on exertion) (Acute) Paraesophageal hernia (Acute) Urinary incontinence (Acute) Vomiting (Acute) Fall (Acute) Rib pain on left side (Acute) Left shoulder pain (Acute) Iliotibial band syndrome of right side (Acute) Status post total right knee replacement (Acute 11/20/11) Anxiety and depression (Chronic 09/05/17) Anticoagulant long-term use (Acute) Cough (Acute) Wheeze (Acute) Hiatal hernia (Chronic) Adjustment disorder, unspecified (Acute 11/16/16) Atrial fibrillation (Chronic 01/22/18) Essential hypertension (Acute 04/28/16) Gastroesophageal reflux disease (Chronic 04/28/16) Due to Hiatial Hernia History of CVA (cerebrovascular accident) (Acute 10/24/15) Dry Stroke, 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 per Dr. Addison Shore 04/25/2016 Closed extra-articular fracture of distal end of right radius (01/31/17) Dehydration Gastroenteritis Surgical History Status post total left knee replacement H/O endoscopy (10/24/21) S/P repair of paraesophageal hernia (08/15/21) [facility] [place] Thoracic Open Carpal Tunnel release right Cholecystectomy (01/10/18) Extraction of cataract Family History Mother Stroke Father Neoplasm Grandmother , CVA No problems noted. Brother Diabetes Brother Diabetes Brother Diabetes Brother Diabetes Brother Diabetes Brother Diabetes Social History Smoking/Tobacco Use Status: Former Tobacco Use Quit Date: 10/29/85 Tobacco: How many years used: 25 Smoking risk assessment performed?: Yes Alcohol Intake: never Drug use: Never Substance use type: does not use Household members: none Number of Children: 4 Current gender identity: female What type of physical activity do you participate in: none Do you feel safe at home: Yes Do you feel safe in your relationship?: Yes
--- NOTE | 2024-01-01 17:30 | RT.EKG_ITS ---
APPROVED REPORT Exam: Resting ECG Reason for Exam: weakness Patient Location: E HR:84 bpm ECG Measurements Heart Rate 84 AXIS [place] [id number] P [id number] QRSd 104 QRS 35 QT 531 T 40 QTc 628 Conclusion Atrial fibrillation...? atrial activity Prolonged QT interval...QTc >500mS
[2024-01-01] MEDS: Normal Saline 1,000 ML 1000 ML IV ×2 (17:33→19:20)
[2024-01-01 17:36] LABS: Absolute Basophil Count 0.07 10^3/uL (0.0-0.2); Absolute Eosinophil Count 0.01 10^3/uL (0.0-0.7); Absolute Lymphocyte Count 0.04 10^3/uL (1.2-3.4); Absolute Monocyte Count 0.23 10^3/uL (0.1-0.8); Absolute Neutrophil Count 11.63 10^3/uL (1.2-6.7); Basophils % 0.6; Eosinophils % 0.1; HCT 45.4 % (36.0-46.0); HGB 14.6 g/dL (11.2-15.7); Immature Grans % 2.4; Lymphocytes % 0.3; MCH 28.2 pg (27.0-33.0); MCHC 32.2 % (32.0-36.0); MCV 88 fL (80-95); MPV 9.2 fL (8.0-11.0); Monocytes % 1.9; Neutrophils % 94.7; Platelet Count 262 10^3/uL (130-400); RBC 5.18 10^6/uL (3.93-5.22); RDW 13.3 % (11.7-14.6); RDW-SD 43.3 fL; WBC 12.28 10^3/uL (4.4-10.8)
[2024-01-01] MEDS: Dextrose 50%-Water 25 GM/50 ML SYR IVP ×2 (17:41→18:30)
[2024-01-01] MEDS: cefTRIAXone 1 GM/50 ML BAG IVPB (17:45)
[2024-01-01 17:54] LABS: ALT 25 U/L (14-59); AST 58 U/L (15-37); Albumin 2.7 g/dL (3.4-5.0); Alkaline Phosphatase 74 U/L (46-116); Anion Gap 14.4 mmol/L (3-11); BUN 36 mg/dL (7-18); Bilirubin, Total 1.4 mg/dL (0.2-1.0); CO2 21.6 mmol/L (21.0-32.0); CREATININE 1.5 mg/dL (0.55-1.02); Calcium 8.1 mg/dL (8.5-10.1); Chloride 103 mmol/L (98-107); Estimated GFR 34.15 (mL/min/1.73m2); Glucose 55 mg/dL (74-106); Potassium 3.4 mmol/L (3.5-5.1); Sodium 139 mmol/L (136-145); Total Protein 5.8 g/dL (6.4-8.2)
[2024-01-01 17:55] LABS: Troponin I 180 ng/L (< or =60)
[2024-01-01] MEDS: ACETAMINOPHEN 1,000 MG/100 ML BTL 400 MG IVPB (18:13)
[2024-01-01] MEDS: MAGNESIUM SULFATE 2 GM/50 ML BAG IVPB (18:13)
--- NOTE | 2024-01-01 18:15 | DI.RAD_ITS ---
Exam(s) XR PORTABLE CHEST AP EXAM: XR PORTABLE CHEST AP CLINICAL HISTORY: sepsis TECHNIQUE: 2D digital imaging was performed. COMPARISON: CR XR CHEST 2V PA LATERAL from 03/07/[address] CHEST WO from 03/15/2021 FINDINGS: LUNGS: Clear. No pleural abnormality seen. HEART: Mildly enlarged. AORTA: Normal diameter. BONES: Severe degenerative changes of the left shoulder. Soft tissues: Unremarkable. Previously noted large hiatal hernia no longer seen. IMPRESSION: No acute findings. DATA REPOSITORY: RADIATION DOSE DELIVERED:
[2024-01-01] MEDS: DEXTROSE 5%-0.45% SALINE 1,000 ML 100 ML IV (18:29)
--- NOTE | 2024-01-01 18:30 | RT.EKG_ITS ---
APPROVED REPORT Exam: Resting ECG Reason for Exam: REEVAL Patient Location: E HR:68 bpm ECG Measurements Heart Rate 68 AXIS IA 150 P 0 QRSd 105 QRS 43 QT 563 T 51 QTc 587 Conclusion Sinus rhythm...normal P axis, V-rate 60- 99 Atrial premature complexes...SV complexes w/ short R-R intvls Low voltage, precordial leads...precordial leads <1.0mV Prolonged QT interval...QTc >500mS No change vs prior
[2024-01-01 18:57] LABS: BE (Venous) -5 mmol/L (-2-3); HCO3 (Venous) 22 mmol/L (23-28); O2 Sat (Venous) 64 %; TCO2 (Venous) 20 mmol/L (24-29); pCO2 (Venous) 41 mmHg (41-51); pH (Venous) 7.33 (7.31-7.41); pO2 (Venous) 38 mmHg
--- NOTE | 2024-01-01 19:00 | DI.CT_ITS ---
Exam(s) CT ABDOMEN PELVIS WO EXAM: CT ABDOMEN PELVIS WO CLINICAL HISTORY: sepsis, h/o vomiting. TECHNIQUE: Imaging Protocol: Axial computed tomography images with coronal and sagittal reformatted images were created and reviewed. Oral: / no COMPARISON: CT CT ABDOMEN PELVIS W from 03/22/2023 FINDINGS: Exam limited by motion. Lung Bases: Fluid in distal esophagus could indicate reflux. The heart is enlarged. Liver: Normal density. No suspicious mass. Gallbladder and biliary tract: Status post cholecystectomy. No radiodense calculus or dilation. Pancreas: Atrophy. Spleen: Normal. Kidneys: Normal size, contour and axis. No radiodense stones or obstructive uropathy. Renal cysts, u nchanged. No follow-up recommended. No suspicious masses seen. Adrenal glands: No masses seen. Lymph nodes: Within normal limits. Vasculature: Abdominal aorta non-dilated. Atherosclerotic changes. Soft tissues: Small of per abdominal wall hernia containing fat and a small amount of fluid. Bladder: Decompressed by Rios catheter. Bowel: Small amount of fluid in stomach. Evaluation of the stomach somewhat limited due to motion. Mildly dilated small bowel in the pelvis could represent localized ileus or early small bowel obstruc tion. Prominent diverticulosis of the descending and sigmoid colon. No evidence of diverticulitis. Peritoneal cavity: No ascites, collection or mesenteric inflammatory response. Reproductive organs: Unremarkable. Bones: Degenerative changes in the spine and hips. Old S3 fracture. Stable T11 compression fracture . IMPRESSION: Mildly dilated small bowel in the low pelvis could represent regional ileus versus earlier partial sm all bowel obstruction. Fluid in distal esophagus consistent with reflux. Diverticulosis without evidence of diverticulitis. RADIATION DOSE DELIVERED: Total DLP DATA REPOSITORY: All CT scans at this facility are submitted to the National Radiology Data Registry (NRDR) Dose Index Registry (DIR) with the [employer] (A[employer]). RADIATION OPTIMIZATION: All CT scans at this facility use at least one of these dose optimization te chniques: automated exposure control; mA and/or kV adjustment per patient size (includes targeted exa ms where dose is matched to clinical indication); or iterative reconstruction.
[2024-01-01 19:01] LABS: Lactate 4.3 mmol/L (0.6-1.4)
[2024-01-01 19:02] LABS: Bilirubin Moderate (Negative); Blood Trace-lysed (Negative); Clarity Clear (Clear); Glucose 100 mg/dL (Negative); Ketones Negative (Negative); Leukocyte Esterase Negative (Negative); Nitrite Negative (Negative); Specific Gravity >= 1.030 (1.005-1.025); pH 5.5 (5-8)
[2024-01-01 19:11] LABS: Bacteria Rare HPF (Negative); C & S Indicated? No; Casts 0-2 Fine Granular LPF (Negative); Crystals Negative HPF (Negative); Epithelial Cells Few HPF (Negative); Mucus Trace (Negative); RBC 0-2 HPF (0-2); WBC 0-2 HPF (0-5)
--- NOTE | 2024-01-01 19:33 | NUR.NOTE ---
PTs D5 0.45%NS paused due to BG Nursing Note:
[2024-01-01 19:46] LABS: COVID-19 PCR Negative (Negative); Influenza A PCR Negative (Negative); Influenza B PCR Negative (Negative); RSV PCR Negative (Negative)
[2024-01-01 19:47] LABS: Source Nasopharynx
[2024-01-01 20:17] LABS: Lactate 4.8 mmol/L (0.6-1.4)
[2024-01-01] MEDS: Normal Saline 1,000 ML 125 ML IV (20:38)
[2024-01-01 20:42] LABS: Troponin I 220 ng/L (< or =60)
--- NOTE | 2024-01-01 20:43 | DI.VRAD_ITS ---
PROCEDURE INFORMATION: Exam: CT Abdomen And Pelvis Without Contrast Exam date and time: 01/01/2024 7:49 PM Age: 83 years old Clinical indication: Vomiting and other: Sepsis; Patient HX: Sepsis/ h/o vomiting TECHNIQUE: Imaging protocol: Computed tomography of the abdomen and pelvis without contrast. Radiation optimization: All CT scans at this facility use at least one of these dose optimization techniques: automated exposure control; mA and/or kV adjustment per patient size (includes targeted exams where dose is matched to clinical indication); or iterative reconstruction. COMPARISON: CT PELVIC WO 05/02/2023 3:43 PM FINDINGS: Lungs: Mild peripheral atelectasis or fibrosis in the lung bases. Heart: Moderate cardiomegaly. Mediastinal space: Moderate fluid distension of the distal esophagus suggesting gastroesophageal reflux. Hyperdensities around the GE junction may represent chronic postoperative changes or calcification, correlate with operative history. Liver: Liver assessment limited by respiratory motion. No gross abnormalities. No intrahepatic biliary ductal dilatation. Gallbladder and bile ducts: Prior cholecystectomy with expected mild postoperative dilatation of the common bile duct. This is unchanged. Pancreas: Pancreas assessment limited by motion artifact. Severe pancreatic atrophy with no gross acute abnormalities. No ductal dilatation is appreciated. Spleen: Normal. No splenomegaly. Adrenal glands: Normal. No adrenal mass. Kidneys and ureters: Renal assessment limited by respiratory motion. Simple peripelvic cyst in the upper pole of the right kidney and suspected small simple cysts in the lower pole left kidney. 8 mm hyperdense cortical lesion in the medial upper pole cortex of the left kidney series 7, image 203 measures 36 Hounsfield units average density. This is unchanged from 03/22/2023 and showed no enhancing elements on that scan, favoring proteinaceous cyst. No hydronephrosis or hydroureter. No urinary tract stones are identified. 3 mm cortical calcification in the lateral interpolar left renal cortex unchanged. Stomach and bowel: Question mild gastric wall/fold thickening, possibly reactive changes of clinically described vomiting although gastritis could produce this appearance. No evidence of obstruction or perforation. There are few fluid distended borderline dilated small bowel loops in the lower abdomen measuring up to 3 cm diameter. No focal transition point is identified although this does transition to nondilated distal ileum. This may relate to regional ileus although can not exclude early or partial small bowel obstruction, consider short-term imaging follow-up or limited small bowel follow-through assessment as clinically indicated. Question mild generalized colonic wall thickening suspicious for an element of colitis although contracted status may be contributing. There is moderate-severe distal colonic diverticulosis with no localized changes to favor acute diverticulitis. Appendix: The appendix is normal in caliber and demonstrates no evidence of appendicitis. Intraperitoneal space: No peritoneal free fluid or air. Vasculature: No acute process. No abdominal aortic aneurysm. Moderate calcific atherosclerosis. Lymph nodes: No adenopathy. Urinary bladder: Rios catheter well positioned in the bladder lumen.The urinary bladder is largely contracted with wall thickening which may relate to its contracted status. Mild adjacent stranding. Correlate with UA for evidence of cystitis. Reproductive: Unremarkable as visualized. Bones/joints: No acute osseous abnormalities. Osteopenia. Severe right and mild-moderate left hip osteoarthritic changes. Multilevel severe lumbar disc degenerative changes. Chronic severe anterior wedge compression deformity of T11 again noted. Chronic healed sacral fracture in the S3 segment. Soft tissues: Epigastric midline fatty anterior abdominal wall hernia again noted. No bowel herniation or features of strangulation. IMPRESSION: 1. Question mild gastric wall/fold thickening which may represent reactive changes of clinically described recent vomiting although gastritis could produce this appearance. No evidence of gastric outlet obstruction or gastric perforation. 2. Mild wall thickening throughout the colon suspicious for colitis although contracted status may be contributing. 3. Moderate fluid content in the distal esophagus suggesting gastroesophageal reflux. 4. There are few fluid-filled borderline dilated lower abdominal small bowel loops present. No focal transition point identified although there is gradual transition to nondilated distal ileum. This could represent regional ileus although can not exclude early or partial small bowel obstruction. Consider short-term imaging follow-up or limited small bowel follow-through assessment as clinically indicated. 5. Rios balloon well positioned in the bladder. Slight bladder wall thickening and adjacent stranding may be reactive although correlate with UA for evidence of cystitis. 6. Additional nonemergent findings detailed above. Dictated and Authenticated by: Noel Spivey MD. Ordering:LUIS Armando MD
--- NOTE | 2024-01-01 21:30 | W.PM.HP.N ---
Date of service: 01/01/24 Time of Service: 21:30 Assessment and Plan Assessment and plan (1) Fever: Status: Acute Assessment and plan: Patient clearly has some infectious syndrome but source not clear. Some of the findings (viz, the lactic acidosis and the hyperglycemia) suggest sepsis like picture, but patient looks well, mentating well and is not hypotensive so this point is not quite consistent. Perhaps there is something brewing. Also, the troponin leak is presumably type ll ischemia, though again no clear precipitant. Altogether I think the best course here is continued empiric antibiotics, await blood cultures and monitor clinical developments. ID: Rocephin, cultures Hypoglycemia: trend, probably from sepsis, consider adrenal insufficiency. Patient not on diabetic meds Type ll ischemia: trend troponins ADs: remains DNR History of Present Illness History of Present Illness Chief Complaint: not feeling well Narrative: 83 female comes to ER with one day of non-specific malaise. En route she was febrile, vomited x1 and had sugar in 50s. Here in ER findings of note for eutensive, with Tmx 38.6; dry mucous membranes but otherwise unremarkable exam; white count 12 with left shift; lactate 4.3 (repeat after IVF 4.8), with AG 14; troponin 180 (second 220, with no STTWCs and baseline AF); negative CXR, negative U/A and CT abdomen with generally scant findings, including suggestion of possible gastritis, probable ileus and diffuse mild colonic wall thickening suggestive of possible colitis (note that patient denies both abd pain and diarrhea); viral swab triple negative. Here in ER patient has received D50, with latest sugar in 200s; IVF, blood cxx obtained and dose of Rocephin. I was asked to evaluate for admission. At present time patient's only complaint is of chronic RLE pain, otherwise feeling fine. Review of Systems Narrative: per HPI PFSH All Active Problems (Updated 01/01/24 @ 21:43 by Hal Hair MD) Fever (Acute) Hypomagnesemia (Acute) Sepsis (Acute) Colitis (Acute) Pes anserinus bursitis of left knee (Acute) DEPO MEDROL 06/04/23 Depression (Chronic) Falls frequently (Acute) Traumatic rupture of right quadriceps tendon (Acute 12/29/22) s/p repair Dr. Dixon Degenerative joint disease of right hip (Acute) Painful total knee replacement, right (Acute) s/p revision of patellar component Dr. Dixon DOS: 09/06/22 Status post right knee replacement (Acute) Regurgitation and rechewing (Acute ~10/2021) 12/13/21 [facility] [place] GI, gastric emptying scan ordered and consult with Director Of Vendor Management Lung nodule < 6cm on CT (Acute) LEWIS (dyspnea on exertion) (Acute) Paraesophageal hernia (Acute) Urinary incontinence (Acute) Vomiting (Acute) Fall (Acute) Rib pain on left side (Acute) Left shoulder pain (Acute) Iliotibial band syndrome of right side (Acute) Status post total right knee replacement (Acute 11/20/11) Anxiety and depression (Chronic 09/05/17) Anticoagulant long-term use (Acute) Cough (Acute) Wheeze (Acute) Hiatal hernia (Chronic) Adjustment disorder, unspecified (Acute 11/16/16) Atrial fibrillation (Chronic 01/22/18) Essential hypertension (Acute 04/28/16) Gastroesophageal reflux disease (Chronic 04/28/16) Due to Hiatial Hernia History of CVA (cerebrovascular accident) (Acute 10/24/15) Dry Stroke, 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 per Dr. Addison Shore 04/25/2016 Closed extra-articular fracture of distal end of right radius (01/31/17) Dehydration Gastroenteritis Surgical History Status post total left knee replacement H/O endoscopy (10/24/21) S/P repair of paraesophageal hernia (08/15/21) [facility] [place] Thoracic Open Carpal Tunnel release right Cholecystectomy (01/10/18) Extraction of cataract Family History Mother Stroke Father Neoplasm Grandmother , CVA No problems noted. Brother Diabetes Brother Diabetes Brother Diabetes Brother Diabetes Brother Diabetes Brother Diabetes Social History Smoking/Tobacco Use Status: Former Tobacco Use Quit Date: 10/29/85 Tobacco: How many years used: 25 Smoking risk assessment performed?: Yes Alcohol Intake: never Drug use: Never Substance use type: does not use Household members: none Number of Children: 4 Current gender identity: female What type of physical activity do you participate in: none Do you feel safe at home: Yes Do you feel safe in your relationship?: Yes Meds Allergies and Home Medications Allergies Allergy/AdvReac Type Severity Reaction Status Date / Time Penicillins Allergy Unknown Swelling/Ed Verified 01/01/24 17:13 bobo/Itching nitrofurantoin AdvReac Severe Diarrhea Verified 01/01/24 17:13 ciprofloxacin [From Cipro] AdvReac Intermediate Dizziness/L Verified 01/01/24 17:13 ighthead Sulfa (Sulfonamide AdvReac Unknown GI symptoms Verified 01/01/24 17:13 Antibiotics) Home Medications Medication Instructions Recorded Confirmed Type calcium-vitamin D3-vitamin K 500 1 ea PO DAILY 11/16/16 12/28/23 History mg-1,000 unit-40 mcg chewable tablet denosumab 60 mg/mL subcutaneous 60 mg SQ [id number] 11/16/16 12/28/23 History syringe (Prolia) fluticasone fur. 100 mcg-umeclid 1 inh inhalation DAILY 07/21/21 12/28/23 History 62.5 mcg-vilant 25 mcg inhalat.powder (Trelegy Ellipta) albuterol sulfate 90 mcg/actuation 2 puff inhalation Q6H PRN PRN 12/29/22 12/28/23 History aerosol inhaler fluticasone furoate 200 1 inh inhalation DAILY 12/29/22 12/28/23 History mcg-vilanterol 25 mcg/dose inhalation powder (Breo Ellipta) acetaminophen 500 mg tablet 500 mg PO Q6H PRN pain 02/01/23 12/28/23 History fenofibrate nanocrystallized 48 mg 48 mg PO DAILY #90 tabs 02/06/23 12/28/23 Rx tablet metoprolol succinate 50 mg 50 mg PO DAILY #90 tabs 02/06/23 12/28/23 Rx tablet,extended release 24 hr prochlorperazine maleate 10 mg 5 mg (1/2 x 10 mg) PO BID PRN 03/05/23 12/28/23 Rx tablet nausea and vomiting #20 tabs diclofenac sodium 1 % topical gel 2 - 4 g topical QID PRN pain #100 04/27/23 12/28/23 Rx grams bupropion HCl 300 mg 24 hr tablet, 300 mg PO QAM #90 tabs 06/12/23 12/28/23 Rx extended release apixaban 2.5 mg tablet 2.5 mg PO BID #180 tabs 08/07/23 12/28/23 Rx omeprazole 40 mg capsule,delayed See Rx Instructions .Route 11/26/23 12/28/23 Rx release .COMPLEX #56 caps Exam Narrative Exam Narrative: 123/49, 98, 37.7, 25, 90% RA (during visit patient had nasal cannula on, I removed this and sats were in mid 90s on RA). HEENT atraumatic; neck supple; lungs clear; heart irr/irr w/o MRG; abdomen soft and NT; extremities w/o edema, mild pain with right hip PROM; neuro Ox3, lucid,, moves all 4s Results Labs 01/01/24 17:25 01/01/24 17:25 Labs: Laboratory Results - last 24 hr 01/01/24 01/01/24 01/01/24 17:25 18:25 18:53 WBC 12.28 H RBC 5.18 Hgb 14.6 Hct 45.4 MCV 88 MCH 28.2 MCHC 32.2 RDW 13.3 Plt Count 262 MPV 9.2 Immature Gran % 2.4 Neutrophils % 94.7 Lymphocytes % 0.3 Monocytes % 1.9 Eosinophils % 0.1 Basophils % 0.6 Nucleated RBC % 0.0 Absolute Neutrophils 11.63 H Absolute Lymphocytes 0.04 L Absolute Monocytes 0.23 Absolute Eosinophils 0.01 Absolute Basophils 0.07 VBG pH 7.33 VBG pCO2 41 VBG pO2 38 VBG HCO3 22 L VBG Total CO2 20 L VBG O2 Saturation 64 VBG Base Excess -5 L VBG Lactate 4.3 H* Sodium 139 Potassium 3.4 L Chloride 103 Carbon Dioxide 21.6 Anion Gap 14.4 H BUN 36 H Creatinine 1.5 H Est GFR (CKD-EPI 2020) 34.15 Glucose 55 L Calcium 8.1 L Magnesium 1.0 L Total Bilirubin 1.4 H AST 58 H ALT 25 Alkaline Phosphatase 74 Troponin I 180 H* Total Protein 5.8 L Albumin 2.7 L Urine Color Dark Yellow Urine Clarity Clear Urine pH 5.5 Ur Specific Henderson >= 1.030 H Urine Protein 100 H Urine Ketones Negative Urine Blood Trace-lysed H Urine Nitrite Negative Urine Bilirubin Moderate H Urine Urobilinogen 1.0 H Ur Leukocyte Esterase Negative Urine RBC 0-2 Urine WBC 0-2 Ur Epithelial Cells Few Urine Crystals Negative Urine Bacteria Rare Urine Casts 0-2 Fine Granular Urine Mucus Trace Ur Culture Indicated? No Urine Glucose 100 H COVID-19 Source SARS-CoV-2 (PCR) Influenza Type A (PCR) Influenza Type B (PCR) RSV (PCR) 01/01/24 01/01/24 19:05 20:10 WBC RBC Hgb Hct MCV MCH MCHC RDW Plt Count MPV Immature Gran % Neutrophils % Lymphocytes % Monocytes % Eosinophils % Basophils % Nucleated RBC % Absolute Neutrophils Absolute Lymphocytes Absolute Monocytes Absolute Eosinophils Absolute Basophils VBG pH VBG pCO2 VBG pO2 VBG HCO3 VBG Total CO2 VBG O2 Saturation VBG Base Excess VBG Lactate 4.8 H* Sodium Potassium Chloride Carbon Dioxide Anion Gap BUN Creatinine Est GFR (CKD-EPI 2020) Glucose Calcium Magnesium Total Bilirubin AST ALT Alkaline Phosphatase Troponin I 220 H* Total Protein Albumin Urine Color Urine Clarity Urine pH Ur Specific Henderson Urine Protein Urine Ketones Urine Blood Urine Nitrite Urine Bilirubin Urine Urobilinogen Ur Leukocyte Esterase Urine RBC Urine WBC Ur Epithelial Cells Urine Crystals Urine Bacteria Urine Casts Urine Mucus Ur Culture Indicated? Urine Glucose COVID-19 Source Nasopharynx SARS-CoV-2 (PCR) Negative Influenza Type A (PCR) Negative Influenza Type B (PCR) Negative RSV (PCR) Negative Last Vital Signs Temp 37.7 C H 01/01/24 21:20 Pulse 98 H 01/01/24 21:18 Resp 25 H 01/01/24 21:18 BP 123/49 L 01/01/24 21:01 Pulse Ox 90 L 01/01/24 16:57 Time Spent Time spent with Patient: 55-74 minutes Time was spent: preparing to see the patient(eg.review tests), obtaining and/or reviewing separately otained hiistory, ordering medications,tests, procedures, referring, communicating with other health career based intervention coordinator and indepentently interpreting results
[2024-01-01] MEDS: Acetaminophen 325 MG TAB 650 MG PO (22:21)
[2024-01-01] MEDS: Lactated Ringers 1,000 ML 125 ML IV (23:37)
[2024-01-02] MEDS: Normal Saline Flush 10 ML SYR IVP ×3 (00:10→20:33)
[2024-01-02 00:18] VITALS: BP 96/56; PULSE 78; RESP 16; TEMP 36; O2SAT 93
[2024-01-02] MEDS: Acetaminophen 325 MG TAB 650 MG PO ×3 (05:28→13:28)
[2024-01-02 06:42] LABS: HCT 37.5 % (36.0-46.0); HGB 12.4 g/dL (11.2-15.7); Lactate 1.8 mmol/L (0.6-1.4); MCHC 33.1 % (32.0-36.0); MCV 88 fL (80-95); MPV 9.3 fL (8.0-11.0); Platelet Count 199 10^3/uL (130-400); RBC 4.27 10^6/uL (3.93-5.22); RDW 13.6 % (11.7-14.6); RDW-SD 43.5 fL; WBC 10.64 10^3/uL (4.4-10.8)
[2024-01-02 06:46] LABS: Lab Add On Test DONE
[2024-01-02 07:02] LABS: Anion Gap 11.3 mmol/L (3-11); BUN 43 mg/dL (7-18); CO2 23.7 mmol/L (21.0-32.0); CREATININE 1.9 mg/dL (0.55-1.02); Chloride 105 mmol/L (98-107); Estimated GFR 25.72 (mL/min/1.73m2); Glucose 77 mg/dL (74-106); Potassium 3.3 mmol/L (3.5-5.1); Sodium 140 mmol/L (136-145)
[2024-01-02 07:03] LABS: Magnesium 1.7 mg/dL (1.8-2.4)
[2024-01-02 07:16] LABS: Troponin I 126 ng/L (< or =60)
[2024-01-02 08:19] VITALS: BP 109/63; PULSE 95; RESP 16; TEMP 36.6; O2SAT 100
--- NOTE | 2024-01-02 08:54 | PDOC.CMIN ---
Date of service: 01/02/24 Care Management Initial Assmt Initial Assessment REASON FOR HOSPITALIZATION:: Fever- Colitis PREVIOUS FUNCTIONAL STATUS/SOCIAL/FAMILY SUPPORTS:: Linda lives alone in [place] at [facility]. Linda reports she has a daughter Narcisa who she talks to a couple times a day who lives in [place]. As well as a daughter Trisha, a daughter Sanjay and a son Wilber. Linda is a [place]. She says she does not have very many visitors but also doesnt really like people who want to come and just blab. Linda describes herself as a tough [place]. She has a cat she describes tends to stretch out and take up much of her bed, that she feels she may need to rehome. CURRENT FUNCTIONAL STATUS:: Linda was lying in bed when interacting with CM. She explained she had knee surgery years ago, fell and needed to have another surgery, and has fallen again so thinks she will need to talk to Dr. Dixon again. She says she has a walker but sometimes gets up and starts walking forgetting she needs it and then looses her balance and falls. She says her falls are not why she came in, it was the side effects of an antibiotic and possible UTI as well as her friend Tatiana suggesting she come in. She says her memory is not very good and she sometimes forgets to take her medications especially her nighttime blood thinner. She describes having a friend Tatiana that stays with her when needed if Linda is not feeling well. She has PT and cleaning services that she says come in a few times a week. CM and Pt discussed nursing homes and needing to have a skilled need, and that she needs to be awaiting PT recommendations for and she is agreeable. Linda said she waited three years to get into the [facility] and would not want to not be able to go back. CM explained there is short term and half-way rehab options that don't have to be decided at this time as there has not been any skilled need identified at this time. Per request of daughter Narcisa, CM called and discussed above information. Narcisa did say she hopes to be able to talk to the Hospitalist as she does have some questions about troponin levels. CM sent Hospitalist message for this. CM continues to follow. ADVANCE DIRECTIVES:: HIPPA- Narcisa Palumbo, Ant Perry, Kory Washington Has patient been provided with info about the portal/API?: Yes Did the patient sign up for the portal?: Yes CODE STATUS:: DNR/DNI INSURANCE COVERAGE / FINANCIAL ISSUES:: Medicare Part A & B Medicaid of [place] CURRENT HOME/COMMUNITY SERVICES/EQUIPMENT:: [facility], [facility] correctional casework specialist. PRIMARY CARE PHYSICIAN:: Patricia Garza NP PATIENT/FAMILY EDUCATION NEEDS:: Review discharge instructions and limitations, discussion of self care needs including Ask Me Three TRANSPORTATION:: Via private vehicle by family PLAN:: Linda will discharge home when medically cleared. She will transport home via private vehicle. She will follow up with her PCP and discharge plan of care. CM will continue to follow. PFSH All Active Problems (Updated 01/02/24 @ 10:29 by Bebo Jerry MD) Demand ischemia (Acute) Leukocytosis (Acute) Lactic acidosis (Acute) Hypoglycemia (Acute) Fever (Acute) Hypomagnesemia (Acute) Sepsis (Acute) Colitis (Acute) Pes anserinus bursitis of left knee (Acute) DEPO MEDROL 06/04/23 Depression (Chronic) Falls frequently (Acute) Traumatic rupture of right quadriceps tendon (Acute 12/29/22) s/p repair Dr. Dixon Degenerative joint disease of right hip (Acute) Painful total knee replacement, right (Acute) s/p revision of patellar component Dr. Dixon DOS: 09/06/22 Status post right knee replacement (Acute) Regurgitation and rechewing (Acute ~10/2021) 12/13/[address] [facility] GI, gastric emptying scan ordered and consult with Riveting Machine Operator Automatic Lung nodule < 6cm on CT (Acute) LEWIS (dyspnea on exertion) (Acute) Paraesophageal hernia (Acute) Urinary incontinence (Acute) Vomiting (Acute) Fall (Acute) Rib pain on left side (Acute) Left shoulder pain (Acute) Iliotibial band syndrome of right side (Acute) Status post total right knee replacement (Acute 11/20/11) Anxiety and depression (Chronic 09/05/17) Anticoagulant long-term use (Acute) Cough (Acute) Wheeze (Acute) Hiatal hernia (Chronic) Adjustment disorder, unspecified (Acute 11/16/16) Atrial fibrillation (Chronic 01/22/18) Essential hypertension (Acute 04/28/16) Gastroesophageal reflux disease (Chronic 04/28/16) Due to Hiatial Hernia History of CVA (cerebrovascular accident) (Acute 10/24/15) Dry Stroke, 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 per Dr. Addison Shore 04/25/2016 Closed extra-articular fracture of distal end of right radius (01/31/17) Dehydration Gastroenteritis Surgical History Status post total left knee replacement H/O endoscopy (10/24/21) S/P repair of paraesophageal hernia (08/15/21) [facility] Open Carpal Tunnel release right Cholecystectomy (01/10/18) Extraction of cataract Family History Mother Stroke Father Neoplasm Grandmother , CVA No problems noted. Brother Diabetes Brother Diabetes Brother Diabetes Brother Diabetes Brother Diabetes Brother Diabetes Social History Smoking/Tobacco Use Status: Former Tobacco Use Quit Date: 10/29/85 Tobacco: How many years used: 25 Smoking risk assessment performed?: Yes Alcohol Intake: never Drug use: Never Substance use type: does not use Household members: none Housing: assisted living facility Number of Children: 4 Current gender identity: female What type of physical activity do you participate in: none Do you feel safe at home: Yes Do you feel safe in your relationship?: Yes SDOH(Care Management) Screening Will the Patient Participate in the Screening?: Yes Do you worry about having a steady place to live?: no In the past 12 months, have you had to go without electric, gas, oil or water in your home?: no Have you or anyone in your house had to go without enough food to eat?: no Has lack of transportation kept you from medical appointments or from doing things needed for daily living?: no Has anyone in your support network made you feel unsafe for any reason?: no Social Determinants of Health Comments(SDOH Details): lives in residence of older people.
--- NOTE | 2024-01-02 10:23 | PGE_ITS ---
Date of Service Date of service: 01/02/24 Time of Service: 10:23 Assessment and Plan Assessment and plan (1) Fever: Status: Acute Assessment and plan: -Patient presented with fever of 101.7oF in the ED, though at this time no source of infection has been identified -urine clean, CXR without consolidation, CT abdo/pelvis with non-specific findings none of which clinically fit patient; some evidence of colitis but no complaints of abdominal pain or diarrhea -will continue CTX and follow-up culture results -ordering ESR and CRP to assess for possible septic arthritis of right knee, if positive will order CT w/ and w/o -continue to monitor for additional symptoms that may be able to help identify possible source (2) Hypoglycemia: Status: Acute Assessment and plan: -blood glucose via EMS in the 30's though patient was asymptomatic -received 2x D50 viam EMS and upon arrival in ED -blood glucose again low this AM though patients PO intake has been poor, responds to juice, and patient remains asymptomatic (3) Lactic acidosis: Status: Acute Assessment and plan: -initial LA 4.3, increased to 4.8 in ED after IVF, back down to 1.8 this AM -cause unknown, though appears to be due to dehydration and poor nutritional status (4) Leukocytosis: Status: Acute (5) Demand ischemia: Status: Acute Assessment and plan: -presented without chest pain or EKG changes -initial trop 180, peaked at 220 and has since declined (6) Atrial fibrillation: Status: Chronic Assessment and plan: -continue home eliquis and toprol-XL Qualifiers: Atrial fibrillation type: paroxysmal Qualified Code(s): I48.0 - Paroxysmal atrial fibrillation Subjective Subjective Interval history since last seen: Patient states that she is doing well today and has no complaints or concerns. She understands that we are continuing to investigate the cause of her fever and other lab abnormalities at this time though she clinically improving. Exam Narrative Exam Narrative: Well appearing elderly female laying in bed in no acute distress, AOx4, heart irregularly irregular, ungs CTAB, abdomen soft, non-tender, non-distended, right knee without swelling or redness and appears grossly similar to left know though both have old, well-healed anterior surgical scars Objective Last Vital Signs Temp 97.9 F 01/02/24 08:19 Pulse 95 H 01/02/24 08:19 Resp 16 01/02/24 08:19 BP 109/63 01/02/24 08:19 Pulse Ox 100 01/02/24 08:19 Laboratory Results - last 24 hr 01/01/24 01/01/24 01/01/24 17:25 18:25 18:53 WBC 12.28 H RBC 5.18 Hgb 14.6 Hct 45.4 MCV 88 MCH 28.2 MCHC 32.2 RDW 13.3 Plt Count 262 MPV 9.2 Immature Gran % 2.4 Neutrophils % 94.7 Lymphocytes % 0.3 Monocytes % 1.9 Eosinophils % 0.1 Basophils % 0.6 Nucleated RBC % 0.0 Absolute Neutrophils 11.63 H Absolute Lymphocytes 0.04 L Absolute Monocytes 0.23 Absolute Eosinophils 0.01 Absolute Basophils 0.07 VBG pH 7.33 VBG pCO2 41 VBG pO2 38 VBG HCO3 22 L VBG Total CO2 20 L VBG O2 Saturation 64 VBG Base Excess -5 L VBG Lactate 4.3 H* Sodium 139 Potassium 3.4 L Chloride 103 Carbon Dioxide 21.6 Anion Gap 14.4 H BUN 36 H Creatinine 1.5 H Est GFR (CKD-EPI 2020) 34.15 Glucose 55 L Calcium 8.1 L Magnesium 1.0 L Total Bilirubin 1.4 H AST 58 H ALT 25 Alkaline Phosphatase 74 Troponin I 180 H* Total Protein 5.8 L Albumin 2.7 L Urine Color Dark Yellow Urine Clarity Clear Urine pH 5.5 Ur Specific Holmen >= 1.030 H Urine Protein 100 H Urine Ketones Negative Urine Blood Trace-lysed H Urine Nitrite Negative Urine Bilirubin Moderate H Urine Urobilinogen 1.0 H Ur Leukocyte Esterase Negative Urine RBC 0-2 Urine WBC 0-2 Ur Epithelial Cells Few Urine Crystals Negative Urine Bacteria Rare Urine Casts 0-2 Fine Granular Urine Mucus Trace Ur Culture Indicated? No Urine Glucose 100 H COVID-19 Source SARS-CoV-2 (PCR) Influenza Type A (PCR) Influenza Type B (PCR) RSV (PCR) Add-On Test Request 01/01/24 01/01/24 01/02/24 19:05 20:10 06:35 WBC 10.64 RBC 4.27 Hgb 12.4 D Hct 37.5 MCV 88 MCH 29.0 MCHC 33.1 RDW 13.6 Plt Count 199 MPV 9.3 Immature Gran % Neutrophils % Lymphocytes % Monocytes % Eosinophils % Basophils % Nucleated RBC % Absolute Neutrophils Absolute Lymphocytes Absolute Monocytes Absolute Eosinophils Absolute Basophils VBG pH VBG pCO2 VBG pO2 VBG HCO3 VBG Total CO2 VBG O2 Saturation VBG Base Excess VBG Lactate 4.8 H* 1.8 H Sodium 140 Potassium 3.3 L Chloride 105 Carbon Dioxide 23.7 Anion Gap 11.3 H BUN 43 H Creatinine 1.9 H Est GFR (CKD-EPI 2020) 25.72 Glucose 77 Calcium 8.0 L Magnesium 1.7 L Total Bilirubin AST ALT Alkaline Phosphatase Troponin I 220 H* 126 H* Total Protein Albumin Urine Color Urine Clarity Urine pH Ur Specific Holmen Urine Protein Urine Ketones Urine Blood Urine Nitrite Urine Bilirubin Urine Urobilinogen Ur Leukocyte Esterase Urine RBC Urine WBC Ur Epithelial Cells Urine Crystals Urine Bacteria Urine Casts Urine Mucus Ur Culture Indicated? Urine Glucose COVID-19 Source Nasopharynx SARS-CoV-2 (PCR) Negative Influenza Type A (PCR) Negative Influenza Type B (PCR) Negative RSV (PCR) Negative Add-On Test Request 01/02/24 Unknown WBC RBC Hgb Hct MCV MCH MCHC RDW Plt Count MPV Immature Gran % Neutrophils % Lymphocytes % Monocytes % Eosinophils % Basophils % Nucleated RBC % Absolute Neutrophils Absolute Lymphocytes Absolute Monocytes Absolute Eosinophils Absolute Basophils VBG pH VBG pCO2 VBG pO2 VBG HCO3 VBG Total CO2 VBG O2 Saturation VBG Base Excess VBG Lactate Sodium Potassium Chloride Carbon Dioxide Anion Gap BUN Creatinine Est GFR (CKD-EPI 2020) Glucose Calcium Magnesium Total Bilirubin AST ALT Alkaline Phosphatase Troponin I Total Protein Albumin Urine Color Urine Clarity Urine pH Ur Specific Holmen Urine Protein Urine Ketones Urine Blood Urine Nitrite Urine Bilirubin Urine Urobilinogen Ur Leukocyte Esterase Urine RBC Urine WBC Ur Epithelial Cells Urine Crystals Urine Bacteria Urine Casts Urine Mucus Ur Culture Indicated? Urine Glucose COVID-19 Source SARS-CoV-2 (PCR) Influenza Type A (PCR) Influenza Type B (PCR) RSV (PCR) Add-On Test Request DONE Time Spent with Patient Time Spent with Patient: >50 minutes Time was spent: preparing to see the patient(eg.review tests), obtaining and/or reviewing separately otained hiistory, ordering medications,tests, procedures, referring, communicating with other health child daycare worker, indepentently interpreting results, counseling the patient and care coordination
[2024-01-02 11:43] VITALS: BP 108/56; PULSE 77; RESP 16; TEMP 36.3; O2SAT 98
[2024-01-02 11:47] LABS: ESR 9 mm/hr (0-30)
[2024-01-02 11:50] LABS: C-Reactive Protein 14.37 mg/dL (<or=0.5)
[2024-01-02 15:24] VITALS: BP 119/76; PULSE 79; RESP 18; TEMP 36.5; O2SAT 96
[2024-01-02] MEDS: Metoprolol CR 50 MG TABCR PO (15:26)
[2024-01-02] MEDS: cefTRIAXone 1 GM/50 ML BAG IVPB (18:42)
[2024-01-02] MEDS: Apixaban 2.5 MG TAB PO (20:32)
[2024-01-02] MEDS: Omeprazole 20 MG CAPCR 40 MG PO (20:33)
[2024-01-02 23:26] VITALS: BP 119/81; PULSE 68; RESP 17; TEMP 36; O2SAT 97
[2024-01-03] VITALS (7 sets, daily range): BP systolic 135–186; BP diastolic 80–97; PULSE 68–78; RESP 16; TEMP 36.4–36.5; O2SAT 98
[2024-01-03] MEDS: Acetaminophen 325 MG TAB 650 MG PO (06:05)
[2024-01-03 06:31] LABS: HCT 36.9 % (36.0-46.0); HGB 12.2 g/dL (11.2-15.7); MCH 28.8 pg (27.0-33.0); MCHC 33.1 % (32.0-36.0); MCV 87 fL (80-95); MPV 9.5 fL (8.0-11.0); Platelet Count 193 10^3/uL (130-400); RBC 4.24 10^6/uL (3.93-5.22); RDW 13.7 % (11.7-14.6); RDW-SD 43.8 fL; WBC 6.45 10^3/uL (4.4-10.8)
[2024-01-03] MEDS: Omeprazole 20 MG CAPCR 40 MG PO (06:36)
[2024-01-03 06:40] LABS: Anion Gap 9.4 mmol/L (3-11); BUN 45 mg/dL (7-18); CO2 25.6 mmol/L (21.0-32.0); CREATININE 1.8 mg/dL (0.55-1.02); Calcium 8.1 mg/dL (8.5-10.1); Chloride 106 mmol/L (98-107); Estimated GFR 27.44 (mL/min/1.73m2); Glucose 109 mg/dL (74-106); Potassium 3.7 mmol/L (3.5-5.1); Sodium 141 mmol/L (136-145)
[2024-01-03] MEDS: Prochlorperazine 5 MG TAB PO (06:41)
[2024-01-03] MEDS: Metoprolol CR 50 MG TABCR PO (08:31)
[2024-01-03] MEDS: Apixaban 2.5 MG TAB PO (08:31)
[2024-01-03] MEDS: Normal Saline Flush 10 ML SYR IVP ×2 (08:31→09:15)
--- NOTE | 2024-01-03 08:39 | CMPROGNOTE_ITS ---
Date of service: 01/03/24 Care Management Progress Note Progress Note Text Progress Note Text: S/O: Linda was laying bed when CM checked in. She said she ate some breakfast and had some blood pressure medication earlier and is feeling weak and nauseous. CM let RN know. Linda says she would rather go home than to a rehab just shares concerns of increased weakness. CM let her know PT will be assessing for further recommendations. Linda said she will ask too if her friend Tatiana may be able to stay with her a few nights as well. A: Linda is an 83 year old female admitted to [facility] for a fever P: Linda will discharge home when medically cleared by provider and resume HH services RN PT. She will follow up with her PCP and plan of care as instructed. She will transport home via private vehicle when ready. CM will support patient and any discharge planning needs. SDOH(Care Management) Screening Will the Patient Participate in the Screening?: Yes Do you worry about having a steady place to live?: no In the past 12 months, have you had to go without electric, gas, oil or water in your home?: no Have you or anyone in your house had to go without enough food to eat?: no Has lack of transportation kept you from medical appointments or from doing things needed for daily living?: no Has anyone in your support network made you feel unsafe for any reason?: no Social Determinants of Health Comments(SDOH Details): lives in residence of older people.
--- NOTE | 2024-01-03 08:59 | W.PM.PROGNOT ---
Date of Service Date of service: 01/03/24 Time of Service: 09:00 Assessment and Plan Assessment and plan (1) Fever: Status: Acute Assessment and plan: -Patient presented with fever of 101.7oF in the ED, though at this time no source of infection has been identified -urine clean, CXR without consolidation, CT abdo/pelvis with non-specific findings none of which clinically fit patient; some evidence of colitis but no complaints of abdominal pain or diarrhea -will continue CTX and follow-up culture results -ordering ESR and CRP to assess for possible septic arthritis of right knee, if positive will order CT w/ and w/o -continue to monitor for additional symptoms that may be able to help identify possible source (2) Hypoglycemia: Status: Acute Assessment and plan: -blood glucose via EMS in the 30's though patient was asymptomatic -received 2x D50 viam EMS and upon arrival in ED -blood glucose again low AM 01/01, has since improved (3) Lactic acidosis: Status: Acute Assessment and plan: -initial LA 4.3, increased to 4.8 in ED after IVF, back down to 1.8 AM 01/01 -cause unknown, though appears to be due to dehydration and poor nutritional status (4) Leukocytosis: Status: Acute Assessment and plan: -present on admission, now resolved (5) Demand ischemia: Status: Acute Assessment and plan: -presented without chest pain or EKG changes -initial trop 180, peaked at 220 and has since declined (6) Atrial fibrillation: Status: Chronic Assessment and plan: -continue home eliquis and toprol-XL Qualifiers: Atrial fibrillation type: paroxysmal Qualified Code(s): I48.0 - Paroxysmal atrial fibrillation Exam Narrative Exam Narrative: Well appearing elderly female laying in bed in no acute distress, AOx4, heart irregularly irregular, ungs CTAB, abdomen soft, non-tender, non-distended, right knee without swelling or redness and appears grossly similar to left know though both have old, well-healed anterior surgical scars Objective Last Vital Signs Temp 97.7 F 01/03/24 08:09 Pulse 78 01/03/24 08:09 Resp 16 01/03/24 08:09 BP 186/97 H 01/03/24 08:09 Pulse Ox 98 01/03/24 08:09 Laboratory Results - last 24 hr 01/02/24 01/03/24 06:35 06:06 WBC 6.45 RBC 4.24 Hgb 12.2 Hct 36.9 MCV 87 MCH 28.8 MCHC 33.1 RDW 13.7 Plt Count 193 MPV 9.5 ESR 9 Sodium 141 Potassium 3.7 Chloride 106 Carbon Dioxide 25.6 Anion Gap 9.4 BUN 45 H Creatinine 1.8 H Est GFR (CKD-EPI 2020) 27.44 Glucose 109 H Calcium 8.1 L C-Reactive Protein 14.37 H
--- NOTE | 2024-01-03 09:01 | NUR.NOTE ---
Addendum entered by Addison Solomon RN 01/03/24 10:01: Per hospital pharmacy no records were found of patient taking BP meds outpatient. Dr. Jerry notified. Original Note: Nursing Note: Patient is hypertensive this morning. Patient stated she takes a blood pressure medication at home which she does not remember, and the hospital pharmacy is checking for prescriptions. Dr. Jerry was notified 8:40. Patient is asymptomatic.
[2024-01-03] MEDS: amLODIPine 5 MG TAB PO (10:50)
--- NOTE | 2024-01-03 11:52 | CHAPLAIN ---
Linda was sitting up in bed when I visited. She was very pleasant and easily engaged in conversation. Linda lives at the [facility] in [place]. She said several of her neighbors there have recently and that's been sad for her and others. She is worried about falling and having someone discover her on the floor as other residents have been found. She thinks she may need someone to stay with her but doesn't know how she'll manage that.
--- NOTE | 2024-01-03 13:05 | IN_ITS ---
PT Notes Visit Reasons: Fever Physical Therapy Inpatient Initial Evaluation Date: 01/03/2024 Referring Doctor: Bebo Jerry MD PT Orders: PT CONSULT: Eval/Treat Precautions: Fall. Standard. Activity as tolerated. Patient Profile/Admitting Diagnosis: Linda is an 82-year-old female with history of CVA, traumatic rupture of R quads tendon, and painful right total knee replacement (originally done by Dr. Aguila in Oct 2011) status post patellar component revision on 09/06/2022. She presented to the ED on 01/01/2024 due to dizziness. Patient was admitted for management fever, hypoglycemia, lactic acidosis, leukocytosis, demand ischemia, and AF. PMHX: All Active Problems (Updated 01/01/24 @ 21:43 by Hal Hair MD) Fever (Acute) Hypomagnesemia (Acute) Sepsis (Acute) Colitis (Acute) Pes anserinus bursitis of left knee (Acute) DEPO MEDROL 06/04/23 Depression (Chronic) Falls frequently (Acute) Traumatic rupture of right quadriceps tendon (Acute 12/29/22) s/p repair Dr. Dixon Degenerative joint disease of right hip (Acute) Painful total knee replacement, right (Acute) s/p revision of patellar component Dr. Dixon DOS: 09/06/22 Status post right knee replacement (Acute) Regurgitation and rechewing (Acute ~10/2021) 12/13/21 [facility] [place] [place] GI, gastric emptying scan ordered and consult with Practice Support Specialist Lung nodule < 6cm on CT (Acute) LEWIS (dyspnea on exertion) (Acute) Paraesophageal hernia (Acute) Urinary incontinence (Acute) Vomiting (Acute) Fall (Acute) Rib pain on left side (Acute) Left shoulder pain (Acute) Iliotibial band syndrome of right side (Acute) Status post total right knee replacement (Acute 11/20/11) Anxiety and depression (Chronic 09/05/17) Anticoagulant long-term use (Acute) Cough (Acute) Wheeze (Acute) Hiatal hernia (Chronic) Adjustment disorder, unspecified (Acute 11/16/16) Atrial fibrillation (Chronic 01/22/18) Essential hypertension (Acute 04/28/16) Gastroesophageal reflux disease (Chronic 04/28/16) Due to Hiatial Hernia History of CVA (cerebrovascular accident) (Acute 10/24/15) Dry Stroke, 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 per Dr. Addison Shore 04/25/2016 Closed extra-articular fracture of distal end of right radius (01/31/17) Dehydration Gastroenteritis Surgical History Status post total left knee replacement H/O endoscopy (10/24/21) S/P repair of paraesophageal hernia (08/15/21) [facility] Thoracic Open Carpal Tunnel release right Cholecystectomy (01/10/18) Extraction of cataract Social History/Home Situation: Lives alone on the first floor of a handicap-accessible apartment floor building in [place], [place]. Independent with 4WW indoors, requires supervision of another outdoors. Has family close by who are supportive. Equipment Owned/DME: 4WW, F[employer] Subjective: Initially reported her nausea getting worse. Nurse Jaime updated who gave patient Zofran after consulting with hospitalist. She states that she has fallen at least 5 times in the past year, she could not keep count anymore. Feels better and safer now going home today . Agreeable to having PT work on her again with balance and strengthening. Gait antalgic on R due to chronic issue, amenable to trying out hinged knee brace on R which she stated makes a huge difference. Objective: General Observation: Resting in bed. Mental Status: Alert and oriented x 4 Pain: 2-3/10 in R knee with weight bearing ROM: Right Lower Extremity: Hip flexion WFL. Hip abduction WFL. Knee flexion 10 degrees to 90 degrees. Extension -10 degrees. Ankle dorsiflexion to neutral only. Ankle plantarflexion WFL. Left Lower Extremity: Hip flexion WFL. Hip abduction WFL. Knee flexion WFL. Ankle dorsiflexion to neutral only. Ankle plantarflexion WFL. Strength: Right Lower Extremity: Hip flexors 4/5. Hip abductors 4/5. Knee flexors 3-/5. Knee extensors 3-/5. Ankle dorsiflexors 3-/5. Ankle plantarflexors 3+/5. Left Lower Extremity:Hip flexors 5/5. Hip abductors 5/5. Knee flexors 5/5. Knee extensors 5/5. Ankle dorsiflexors 5/5. Ankle plantarflexors 5/5. Sensation: Intact as to pain and light pressure in B LE Bed Mobility/Transfers: Minimal cueing provided for use of B hands as needed for support, movement sequence, AD management, and posture to reduce fall risk and minimize pain report Supine to sit stand by assist Sit to stand stand by assist Stand to sit stand by assist Bed to chair stand by assist Gait: Without the hinged knee brace, patient reported 4-5/10 on the R knee as well as mild instability due to chronic R knee pain. With new hinged knee brace on, patient covered 120 feet using youth front-wheeled walker with step-to gait pattern requiring stand by asssit with wheelchair follow assist as patient looked unsteady. Posture kyphotic and requires moderate cueing for safety. Mildly uncoordinated. Physical assist neeeded during directional changes. Reports some pulling sensation in R anterior thigh. Balance: Static Sitting: Good Dynamic Sitting: Good Static Standing: Fair Dynamic Standing: Poor THERA EX: Fitted and trialled a hinged knee brace to the R to minimize pain and increase stability of walking. Patient verbalized feeling much more stable and less henrik nful in the R knee with weight bearing. Special Tests: Mobility Limitations Standardized Measure [facility] AM-PAC 6 clicks Basic Mobility Inpatient Short Form: Raw Score: 24 CMS Score: 0% deficit Informed Consent/Education: Patient was instructed in purpose of PT consult. Education and training on initial set of exercises that can be done at home have been completed with patient. Assessment: Residual weakness on the R from previous CVA, continued pain and weakness on the R knee, and impaired muscle performance all contribute to falls. With provision of R hinged-knee brace during this session, patient felt more comfortable and stable with walking. Mild lightheadedness s minimized when patient tried to move slower during turns and during movement transitions. Patient presents with clinical signs and symptoms consistent with current/admitting diagnoses that have resulted to mobility limitations, gait instability, generalized weakness, and impairment of motor control as demonstrated by the following impairment level findings: 1. Decreased strength to R knee major muscle groups 2. Impaired standing balance 3. Limitation of joint range of motion in R knee Impairments are contributing to the following functional limitations: 1. Inability to safely ambulate without assistive device 2. Increase completion time for mobility ADL performance 3. Increased fall risk Patient is assessed as a 92013 high complexity based on the following: History: 82-year-old female with impairment level findings, functional limitations, and past medical history as indicated above Examination: Demonstrable impairment in strength, balance, and mobility level with underlying impairments and functional limitations as documented above Presentation: Evolving Decision Makin high complexity Goals: N/A. PT evaluation and 1-2 treatment sessions only for functional mobility training using recommended AD and for HEP instruction. Plan of Care/Treatment Plan: N/A. PT evaluation and 1-2 treatment session only for functional mobility training using recommended AD and for HEP instruction. DISCHARGE RECOMMENDATIONS: PT for continued balance, strength, home safety evaluation, and functional mobility training. Continue using hinged knee brace when OOB to reduce fall risk at home. TREATMENT CODE/TIME: 10516 x 27 minutes for 1 unit (13:05-13:02). Thank you for the opportunity to participate in the care of this patient. Kaylynn Hunter PT, DPT, CLT [facility] [place], [place]
--- NOTE | 2024-01-03 14:06 | PDOC.HHF2F ---
Home Health Referral Home Health Orders Clinical synopsis of why skilled professionals are needed: Bilateral knee replacement, on goiong right knee plain with brace Physical Therapist: Check all that apply Increase strength & endurance for safe mobility at home: Ordered To design/establish home maintenance program: Ordered Fall reduction therapy program for patient with history of frequent falls: Ordered Home safety evaluation and teaching/gait training including stair management (if applicable): Ordered Encounter Date and Reason: I certify that a FTF encounter for this patient was performed on January 03, 2024 and that such encounter was related to the primary reason the patient requires home health services. The encounter was conducted in the following manner: By me as the certifying physician, FOOD AND BEVERAGE MANAGER, PA or By an inpatient physician, FOOD AND BEVERAGE MANAGER or PA during an inpatient stay who communicated findings to me, Certification And Authentication I certify that I composed the above information based on my clinical judgment relating to this patient's medical condition and, if applicable, clinical findings communicated to me by the NPP or inpatient physician who performed the FTF encounter. Name of Provider that will be monitoring home health services: Patricia Garza
--- NOTE | 2024-01-03 14:07 | DSE_ITS ---
Date of service: 01/03/24 Time of Service: 14:08 DS: Diagnosis Discharge Diagnosis (1) Fever: Status: Resolved Asessment and Plan: -Patient presented with fever of 101.7oF in the ED, though at this time no source of infection has been identified -urine clean, CXR without consolidation, CT abdo/pelvis with non-specific findings none of which clinically fit patient; some evidence of colitis but no complaints of abdominal pain or diarrhea -all cultures negative to date, no source of infection found (2) Hypoglycemia: Status: Resolved Asessment and Plan: -blood glucose via EMS in the 30's though patient was asymptomatic -received 2x D50 viam EMS and upon arrival in ED -blood glucose low AM 01/01 but has improved since that time (3) Lactic acidosis: Status: Resolved Asessment and Plan: -LA 4.3 on admission, down to 1.8 (4) Leukocytosis: Status: Resolved (5) Demand ischemia: Status: Resolved Asessment and Plan: -presented without chest pain or EKG changes -initial trop 180, peaked at 220 and has since declined, likely due to demand (6) Atrial fibrillation: Status: Chronic Asessment and Plan: -continue home eliquis and toprol-XL Discharge Plan Disposition Patient Disposition: Home W/Home Health Services Condition: Good Discharge Details Reason For Visit: Fever Admit Date/Time: 01/01/24 21:55 Admit Provider: Hal Hair Attending Provider: Hal Hair Primary Care Provider: Patricia Garza Hospital Course Hospital Course: Patient initially presented with weakness, hyperglycemia, lactic acidosis and leukocytosis however no source of infection was found. Patient's condition improved as this may have been secondary to viral illness precipitating poor p.o. intake and hypoglycemia. Ultimately patient with physical therapy and was determined to be safe for discharge home with home physical therapy. Home Meds and New Rx's Prescriptions: New amlodipine 5 mg Tablet 5 mg PO DAILY Qty: 90 0RF Continued diclofenac sodium 1 % gel 2 - 4 g topical QID PRN (Reason: pain) Qty: 100 0RF Rx Instructions: 2G for upper extremity joints; 4G for lower extremity joints acetaminophen 500 mg tablet 500 mg PO Q6H PRN (Reason: pain) bupropion HCl 300 mg tablet extended release 24 hr 300 mg PO QAM Qty: 90 3RF Prolia 60 MG/1 ML syringe 60 mg SQ p3edeptt Patient Comments: 07/09/13 per pt not due until next month, DCW calcium-vitamin D3-vitamin K 1 EACH tablet,chewable 1 ea PO DAILY fenofibrate nanocrystallized 48 mg tablet 48 mg PO DAILY Qty: 90 3RF metoprolol succinate 50 mg tablet extended release 24 hr 50 mg PO DAILY Qty: 90 3RF prochlorperazine maleate 10 mg tablet 5 mg PO BID PRN (Reason: nausea and vomiting) Qty: 20 0RF Rx Instructions: 1/2 to 1 tablet twice a day as needed for nausea/vomiting apixaban 2.5 mg tablet 2.5 mg PO BID Qty: 180 3RF omeprazole 40 mg capsule,delayed release(DR/EC) See Rx Instructions .ROUTE .COMPLEX Qty: 56 5RF Dose Instruction: TAKE 1 CAPSULE BY MOUTH TWICE A DAY Rx Instructions: TAKE 1 CAPSULE BY MOUTH TWICE A DAY fluticasone furoate-vilanterol [Breo Ellipta] 200-25 mcg/dose Blister With Device 1 inh INHALATION DAILY albuterol sulfate 90 mcg/actuation Hfa Aerosol Inhaler 2 puff INHALATION Q6H PRN PRN No Action metoprolol succinate 50 mg tablet extended release 24 hr 50 mg PO DAILY 5 Days Qty: 5 0RF Discharge Instructions Instructions: Fever in Adults (ED) Stand Alone Forms: Nursing Discharge Form Referrals: Patricia Garza NP [Primary Care Provider] - 01/11/24 2:00 pm Activity:: Activity as Tolerated Equipment/Supplies:: right knee braec Diet:: As Tolerated Discharge Orders Discharge Orders: Discharge Order (Routine); Ordered 01/03/24 Ordered By: Bebo Jerry Discharge Data Discharge Date/Time-TO BE ENTERED AT DEPARTURE: 01/03/24 15:05 DS: Summary Time Spent with Patient providing and/or coordinating discharge services: Greater than 30 minutes Status at Discharge Functional status at discharge: independent ambulation Overall status at discharge: patient is back to baseline Mental Status: mental status grossly normal Speech and Movement: speech and movement normal Mood: congruent mood Affect: normal affect Quality:SDOH Health Related Social Needs: No Data to Display Exam Narrative Exam Narrative: Well appearing elderly female laying in bed in no acute distress, AOx4, heart irregularly irregular, ungs CTAB, abdomen soft, non-tender, non-distended, right knee without swelling or redness and appears grossly similar to left know though both have old, well-healed anterior surgical scars Psych Mental Status: mental status grossly normal Speech and Movement: speech and movement normal Mood: congruent mood Affect: normal affect DS: Data Vitals/I&O Vitals and I&O: Vital Signs Temperature 97.5 F L 01/03/24 11:55 Temperature Source Tympanic 01/03/24 11:55 Pulse 68 01/03/24 11:55 Pulse Rhythm Irregular 01/03/24 08:20 Pulse 86 01/01/24 21:50 Respiratory Rate 16 01/03/24 11:55 Respiratory Effort Normal 01/03/24 08:20 Respiratory Depth Normal 01/03/24 08:20 Respiratory Pattern Normal 01/03/24 08:20 Blood Pressure 170/80 H 01/03/24 11:55 Blood Pressure Mean 79 01/01/24 21:46 Blood Pressure Position Supine 01/01/24 17:17 Pulse Oximetry 98 01/03/24 11:55 Respiratory End-tidal CO2 26 01/01/24 21:10 Oxygen Delivery Method Room Air 01/03/24 11:55 Oxygen Flow Rate 0 01/03/24 11:55 Pain Level 2 01/03/24 11:55 Intake & Output 01/02/24 01/03/24 01/03/24 17:59 05:59 17:59 Intake Total 1200 / 1200 240 / 1440 1010 / 1010 Output Total 175 / 175 850 / 1025 400 / 400 Balance 1025 / 1025 -610 / 415 610 / 610 Intake: IV 1000 / 1000 1010 / 1010 Oral 200 / 200 240 / 440 Output: Urine 175 / 175 850 / 1025 400 / 400 Other: Urine Color Dark Columba Yellow Yellow Urine Appearance Clear Clear Clear Stool Size Small Stool Characteristics Soft Formed Data Completed and Pending Labs on day of discharge: Labs from last 24 hours 01/03/24 06:06 WBC 6.45 RBC 4.24 Hgb 12.2 Hct 36.9 MCV 87 MCH 28.8 MCHC 33.1 RDW 13.7 Plt Count 193 MPV 9.5 Sodium 141 Potassium 3.7 Chloride 106 Carbon Dioxide 25.6 Anion Gap 9.4 BUN 45 H Creatinine 1.8 H Est GFR (CKD-EPI 2020) 27.44 Glucose 109 H Calcium 8.1 L Preliminary micro results at discharge 01/01/24 17:31 Blood Culture - Preliminary Blood NO GROWTH 24 HOURS 01/01/24 17:25 Blood Culture - Preliminary Blood NO GROWTH 24 HOURS PFSH All Active Problems (Updated 01/11/24 @ 14:38 by Jaspreet Alvarado DO) Acute on chronic renal insufficiency (Acute) Pes anserinus bursitis of left knee (Acute) DEPO MEDROL 06/04/23 Depression (Chronic) Falls frequently (Acute) Traumatic rupture of right quadriceps tendon (Acute 12/29/22) s/p repair Dr. Dixon Degenerative joint disease of right hip (Acute) Painful total knee replacement, right (Acute) s/p revision of patellar component Dr. Dixon DOS: 09/06/22 Status post right knee replacement (Acute) Regurgitation and rechewing (Acute ~10/2021) 12/13/21 [facility], gastric emptying scan ordered and consult with Housekeeping Manager Lung nodule < 6cm on CT (Acute) LEWIS (dyspnea on exertion) (Acute) Paraesophageal hernia (Acute) Urinary incontinence (Acute) Vomiting (Acute) Fall (Acute) Rib pain on left side (Acute) Left shoulder pain (Acute) Iliotibial band syndrome of right side (Acute) Status post total right knee replacement (Acute 11/20/11) Anxiety and depression (Chronic 09/05/17) Anticoagulant long-term use (Acute) Cough (Acute) Wheeze (Acute) Hiatal hernia (Chronic) Adjustment disorder, unspecified (Acute 11/16/16) Atrial fibrillation (Chronic 01/22/18) Essential hypertension (Acute 04/28/16) Gastroesophageal reflux disease (Chronic 04/28/16) Due to Hiatial Hernia History of CVA (cerebrovascular accident) (Acute 10/24/15) Dry Stroke, 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 per Dr. Addison Shore 04/25/2016 Closed extra-articular fracture of distal end of right radius (01/31/17) Dehydration Gastroenteritis Surgical History Status post total left knee replacement H/O endoscopy (10/24/21) S/P repair of paraesophageal hernia (08/15/21) [facility] [place]acic Open Carpal Tunnel release right Cholecystectomy (01/10/18) Extraction of cataract Family History Mother Stroke Father Neoplasm Grandmother , CVA No problems noted. Brother Diabetes Brother Diabetes Brother Diabetes Brother Diabetes Brother Diabetes Brother Diabetes Social History Smoking/Tobacco Use Status: Former Tobacco Use Quit Date: 10/29/85 Tobacco: How many years used: 25 Smoking risk assessment performed?: Yes Alcohol Intake: never Drug use: Never Substance use type: does not use Household members: none Housing: assisted living facility Number of Children: 4 Current gender identity: female What type of physical activity do you participate in: none Do you feel safe at home: Yes Do you feel safe in your relationship?: Yes Time Spent with Patient Time Spent with Patient: <45 minutes Time was spent: preparing to see the patient(eg.review tests), obtaining and/or reviewing separately otained hiistory, ordering medications,tests, procedures, referring, communicating with other health critical care paramedic, indepentently interpreting results, counseling the patient and care coordination
== END 2024-01-03 15:05 | disposition home health service (06) | DRG 866 ==
LOC: ER 22:18 → MS 01-02 07:38
PROVIDERS: Family Medicine; Admitting Provider General Practice; Emergency Provider Nurse Practitioner Family; PCP Nurse Practitioner; Visit Provider General Practice
DX: B34.9 Viral infection, unspecified (principal); E87.20 Acidosis, unspecified; I24.89 Other forms of acute ischemic heart disease; R50.9 Fever, unspecified; E16.2 Hypoglycemia, unspecified; I48.0 Paroxysmal atrial fibrillation; R53.1 Weakness; Z66 Do not resuscitate; E83.42 Hypomagnesemia; F32.9 Major depressive disorder, single episode, unspecified; R29.6 Repeated falls; R91.8 Other nonspecific abnormal finding of lung field; K44.9 Diaphragmatic hernia without obstruction or gangrene; F41.8 Other specified anxiety disorders; E87.6 Hypokalemia; K52.9 Noninfective gastroenteritis and colitis, unspecified; D72.829 Elevated white blood cell count, unspecified; Z96.651 Presence of right artificial knee joint; Z79.01 Long term (current) use of anticoagulants; Z86.73 Personal history of transient ischemic attack (TIA), and cerebral infarction without residual deficits; Z87.891 Personal history of nicotine dependence
CPT/HCPCS: 00123; 36415; 36416; 51702; 80048; 80053; 82805; 82962; 85027; 85652; 87040; 87637; 93005; 96361; 96365; 96366; 96367; 97162; 99291; 71045; 74176; 81003; 81015; 83605; 83735; 84484; 85025; 86140; 93010; 99223; 99233; 99238; G0378; J0131; J0696; J3475

== ENCOUNTER 2024-01-29 05:02 | Outpatient (CLI) | payer MEDICARE, MEDICAID, SELFPAY ==
[2024-01-29 12:44] LABS: ESR 2 mm/hr (0-30)
[2024-01-29 13:02] LABS: Anion Gap 7.9 mmol/L (3-11); BUN 25 mg/dL (7-18); CO2 31.1 mmol/L (21.0-32.0); CREATININE 1.3 mg/dL (0.55-1.02); Calcium 9.5 mg/dL (8.5-10.1); Chloride 107 mmol/L (98-107); Estimated GFR 40.55 (mL/min/1.73m2); Glucose 109 mg/dL (74-106); Potassium 3.7 mmol/L (3.5-5.1); Sodium 146 mmol/L (136-145)
== END 2024-01-29 05:03 | disposition home or self-care (01) ==
LOC: LBO 05:02
PROVIDERS: Student in an Organized Health Care Education/Training Program; PCP Nurse Practitioner; Visit Provider Family Medicine
DX: N18.9 Chronic kidney disease, unspecified; T84.84XA Pain due to internal orthopedic prosthetic devices, implants and grafts, initial encounter
CPT/HCPCS: 36415; 80048; 85652

== ENCOUNTER → 2024-03-13 13:21 | Outpatient (BNVA) | payer MEDICARE, MEDICAID, SELFPAY | PROVIDERS: PCP Nurse Practitioner; Referring Provider Nurse Practitioner; Visit Provider Student in an Organized Health Care Education/Training Program | DX: M16.11 Unilateral primary osteoarthritis, right hip (principal) | CPT/HCPCS: 20611; J1010 ==

== ENCOUNTER 2024-06-03 01:32 | Outpatient (RCR) | payer MEDICARE, MEDICAID, SELFPAY ==
--- OUTSIDE RECORDS SUMMARY | 2024-06-03 01:47 | XMS_ITS | Encounter Summary ---
Author Organization Formerly [facility] [place] [address] Care Team Providers Care Chrome Plater Helper Name Role Phone Kayla Patriciajim Gomes APRN Primary Care Provider Encounter Details Date Type Department Care Team (Late st Contact Info) Description 07/10/2022 3:20 PM EDT Office Visit Dermatology at [facility] [address] [place] [id number] Yolie Crow MD [facility] [address] [address] KA (keratoacanthoma); Actinic keratoses; Seborrheic keratoses; Burgos angioma Social History Tobacco Use Types Packs/Day Years Used Date Smoking Tobacco: Former Cigarettes 1 15 Smokeless Tobacco: Never Comments:quit 40 yrs ago Alcohol Use Standard Drinks/Week Comments Not Currently 0 (1 standard drink = 0.6 oz pur e alcohol) Sex and Gender Information Value Date Recorded Sex Assigned at Not on file Gender Identity Not on file Sexual Orientation Not on file documented as of this encounter Progress Notes * Yolie Crow - 07/10/2022 3:20 PM EDT Images from the original note were not included. DEPARTMENT OF DERMATOLOGY Medical Dermatology Clinic Provider: Yolie Crow MD Patient's preferred name Linda Preferred contact method for results [x]?Phone []?myD-H []?Letter Detailed phone message OK? Yes Are there any other people with whom we may discuss your care? Past Medical History Date, location, treatment Melanoma No Dysplastic nevi No SCC No BCC No AKs No UV Exposure & Protection No Other relevant past medical history - Biopsy-proven evolving KA s/p ED&C Family History Details Melanoma No NMSC No Other relevant family history No Social History Occupation: Retired Hobbies: Other: ?? Pre-Procedure Screening Details Allergy to lidocaine, epinephrine, Dermabond, chlorhexidine, or adhesives No Bleeding disorder or blood thinners Yes Implanted devices (Pacemaker, defibrillator, deep brain stimulator, cochlear implant) No ?? History of Present Illness: Linda Fuller is a 82 y.o. Patient returns to clinic today for a full skin exam. - Patient denies of any pruritic, painful, bleeding, nonhealing, or growing/changing lesions of concern today. Last visit at Dermatology: 06/20/2022 Last visit with this provider: 06/20/2022 Medications: Reviewed in eD-H Allergies: Reviewed in eD-H Skin Examination: Waist-up skin examination: Patient was asked to disrobe to the level of their comfort. Patient elected to remain clothed below the waist. Examination of the scalp, hair, face, ears, neck, back, chest, abdomen, and upper extremities was normal with the exception of the findings below. Assessment/Plan #. History of Keratoacanthoma - Well healed scar on left trunk. - No further treatment necessary. #. Actinic Keratosis - Scaly irregular pink papules located on right helix x1 - Discussed etiology and treatment options with patient - Joint decision to pursue LN2 x 2 to lesion. Advised to return if lesion(s) do not resolve. Procedure Note: Procedure: Destruction of lesions with cryotherapy. Number: 1 Location: as above Discussed procedure and expectations including risks (including risk of hypopigmentation) and benefits. Verbal consent obtained. Frozen with LN2, 15-30 second thaw time, TWICE. There were no complications; the patient tolerated the procedure well. Post-procedure expectations and wound care were reviewed. #. Seborrheic Keratoses - Scattered brown and flesh colored waxy stuck on plaques located on the trunk and upper extremities. - Reassured of benign nature #. Burgos Angiomas - Multiple bright red, well-demarcated papules on the abdomen, chest, and back - Reassured of benign nature Other: ??? N/A RTC: 1 year FSE []Note routed to traveling secretary [x]Recall placed in scheduling system []Appointment scheduled at checkout Scribe attestation: Madelyn Goldberg [facility] has performed the documentation for this encounter in thepresence of and acting as a scribe for Yolie Crow MD. I performed the above scribed service and agree with the accuracy of the documentation in this encounter. Reviewed and signed by: Yolie Crow MD Dermatology [facility] * Bridgett Acuna MD - 07/10/2022 3:20 PM EDT I was the supervising physician working with dermatology resident Dr. Crow in the dermatology clinic during this patient visit. The level of resident supervision for this patient visit was indirectsupervision with direct supervision immediately available. (definition: [facility] Policy Statement on Graduate Medical Education, Supervision of Graduate Medical Trainees) I was immediately available to Dr. Crow for questions and discussion regarding this visit. I have reviewed the encounter note details and level of service. BRIDGETT ACUNA MD Staff Physician documented in this encounter Plan of Treatment Not on file documented as of this encounter Visit Diagnoses Diagnosis KA (keratoacanthoma) Neoplasm of uncertain behavior of skin Actinic keratoses Actinic keratosis Seborrheic keratoses Burgos angioma Nevus, non-neoplastic documented in this encounter Care Teams Chrome Plater Helper Relationship Specialty Start Date End Date Patricia Garza APRN [address] [place] [address] PCP - General Internal Medicine 04/02/20 documented as of this encounter
--- OUTSIDE RECORDS SUMMARY | 2024-06-03 01:47 | XMS_ITS | Encounter Summary ---
[place] [address] Care Team Providers Care Shaft Mechanic Name Role Phone Patricia Garza APRN Primary Care Provider [phone] Reason for Referral * Consultation (Routine) - Closed Specialty Diagnoses / Procedures Referred By Contkimberley t Referred To Contact Gastroenterology Diagnoses Noninfective gastroenteritis and colitis, unspecified Gastro-esophageal reflux disease without esophagitis Other specified postprocedural states Personal history of other diseases of the digestive system motility- noinfective gastroenteritis- GERD/ (Sharla P 2021) Patricia Garza APRN [address] [place] [address] [facility] [address] [place] [address] Referral ID Status Reason Start Date Expiration Date V isits Requested Visits Authorized [id number] Closed Consult, Test & Treat PCP Updated and/or Approved 04/23/2023 10/23/2023 6 6 Encounter Details Date Type Department Care Team (Latest Contact Info) Description 05/04/2023 Transcribe Orders eDH Incoming Referrals [phone] Patricia Garza APRN [address] [place] [address] Routine general medical examination at a health care facility Social History Tobacco Use Types Packs/Day Years [...] on file documented as of this encounter Plan of Treatment Scheduled Referrals Name Type Priority Associated Diagnoses Order Schedule Referral to Gastroenterology Outpatient Referral Routine Routine general medical examination at a health care facility Ordered: 05/04/2023 documented as of this encounter Visit Diagnoses Diagnosis Routine general medical examination at a health care facility documented in this encounter Care Teams Shaft Mechanic Relationship Specialty Start Date End Date Patricia Garza APRN [address] [place] [address] PCP - General Internal Medicine 04/02/20 documented as of this encounter
--- OUTSIDE RECORDS SUMMARY | 2024-06-03 01:47 | XMS_ITS | Clinical Summary ---
Author Organization [facility] Address [address] [place] [address] Care Team Providers Care Care Manager Name Role Phone Unknown, Provider Primary Care Provider Social History Tobacco Use Types Packs/Day Years Used Date Smoking Tobacco: Never Assessed Interpersonal Safety Answer Date Record ed Physically Hurt Never 05/31/2020 Verbally Threaten Not on file 05/31/2020 Sex and Gender Information Value Date Recorded Sex Assigned at Not on file Gender Identity Not on file Sexual Orientation Not on file Plan of Treatment Health Maintenance Due Date Last Done Comments RSV Immunization ( o r 60+ Years) (1 - 1-dose 60+ series) 1999 Fall Risk Screening 02/24/2004 COVID-19 Vaccine (24 season) 2023 Care Teams Care Manager Relationship Specialty Start Date End Date Unknown, Provider, PCP - General 01/11/18
--- OUTSIDE RECORDS SUMMARY | 2024-06-03 01:47 | XMS_ITS | Encounter Summary ---
Author Organization [facility] Address [address] [place] [address] Care Team Providers Care Catering Staff Member Name Role Phone Unknown, Provider Primary Care Provider [phone] Encounter Details Date Type Department Care Team (Late st Contact Info) Description 10/01/2020 Lab Requisition [facility] Pathology & Laboratory Medicine - [facility] [address] [place] [address] Outr Resulting Lab, Provider Social History Tobacco Use Types Packs/Day Years Used Date Smoking Tobacco: Never Assessed Interpersonal Safety Answer Date Record ed Physically Hurt Never 05/31/2020 Verbally Threaten Not on file 05/31/2020 Sex and Gender Information Value Date Recorded Sex Assigned at Not on file Gender Identity Not on file Sexual Orientation Not on file documented as of this encounter Plan of Treatment Not on file documented as of this encounter Procedures Procedure Name Priority Date/Time Associated Diagnosis Comments DO NOT ORDER STANDALONE - BROAD COVID TEST Today 10/01/2020 13:55 EST COVID-19 TESTING Routine 10/01/2020 13:5 5 EST documented in this encounter Results * DO NOT ORDER STANDALONE - BROAD COVID TEST (10/01/2020 13:55 EST) COVID-19 rt-PCR Result NEGATIVE Negative 10/04/2020 14:11 EST [facility] Comment: 2019-novel Coronavirus (2019-nCoV) not detected by the qRT-PCR assay. Consider testing for other respiratory viruses or re-collecting for 2019-nCoV testing. Note: Optimum timing for peak viral levels during infections caused by 2019-nCoV have not been determined. Collection of multiple specimens from the same patient may be necessary to detect the virus. Limitations Positive results are indicative of active infection with SARS-CoV-2 but do not rule out bacterial infection or co-infection with other viruses. The agent detected may not be the definite cause of disease. In addition, detection of viral RNA may not indicate the presence of infectious virus or that SARS-CoV-2 is the causative agent for clinical symptoms. Negative results do not preclude SARS-CoV-2 infection and should not be used as the sole basis for patient management decisions. Negative results must be combined with clinical observations, patient history, and epidemiological information. False negative results may also occur if amplification inhibitors are present in the specimen or if inadequate numbers of organisms are present in the specimen. Optimum specimen types and timing for peak viral levels during infections caused by SARS-CoV-2 have not been fully determined. Collection of multiple specimens (types and time points) from the same patient may be necessary to detect the virus. The test was validated for use with upper respiratory specimens obtained via nasopharyngeal or oropharyngeal swabs in VTM, UTM, M4, M5, M6, saline, and MTM media. The performance of this test has not been established for other specimens. Specimens collected using other FDA recommended Specimen Collection Materials listed in the FDA COVID-19 Diagnostic [employer] communication (January 22, 2020) are processed with the caveat that they were not all validated for use with this test and the result must be interpreted in this context. Furthermore, a false negative results may occur if a specimen is improperly collected, transported or handled. If the virus mutates in the RT-PCR target region, SARS-CoV-2 may not be detected or may be detected less predictably. Inhibitors or other types of interference may produce a false negative result. An interference study evaluating the effect of common cold medications was not performed. This test is not FDA-cleared but its performance characteristics were established by our CLIA-certified, CAP-accredited, high complexity laboratory in accordance with CLIA regulations, [employer] (CAP) guidelines (Jan 15, 2020), and FDA guidance (Dec 27, 2019). This test is only for use under the Food and Drug Administration's Emergency Use Authorization. Swab ENTIRE NASOPHARYNX / Unknown 10/01/2020 13:55 EST 10/01/2020 21:31 EST Provider Outr Resulting Lab MICROBIOLOGY - GENERAL ORDERABLES [facility] [place] [place] * COVID-19 TESTING (10/01/2020 13:55 EST) COVID-19 rt-PCR Result NEGATIVE Negative 10/04/2020 14:11 EST [facility] Comment: 2019-novel Coronavirus (2019-nCoV) not detected by the qRT-PCR assay. Consider testing for other respiratory viruses or re-collecting for 2019-nCoV testing. Note: Optimum timing for peak viral levels during infections caused by 2019-nCoV have not been determined. Collection of multiple specimens from the same patient may be necessary to detect the virus. Limitations Positive results are indicative of active infection with SARS-CoV-2 but do not rule out bacterial infection or co-infection with other viruses. The agent detected may not be the definite cause of disease. In addition, detection of viral RNA may not indicate the presence of infectious virus or that SARS-CoV-2 is the causative agent for clinical symptoms. Negative results do not preclude SARS-CoV-2 infection and should not be used as the sole basis for patient management decisions. Negative results must be combined with clinical observations, patient history, and epidemiological information. False negative results may also occur if amplification inhibitors are present in the specimen or if inadequate numbers of organisms are present in the specimen. Optimum specimen types and timing for peak viral levels during infections caused by SARS-CoV-2 have not been fully determined. Collection of multiple specimens (types and time points) from the same patient may be necessary to detect the virus. The test was validated for use with upper respiratory specimens obtained via nasopharyngeal or oropharyngeal swabs in VTM, UTM, M4, M5, M6, saline, and MTM media. The performance of this test has not been established for other specimens. Specimens collected using other FDA recommended Specimen Collection Materials listed in the FDA COVID-19 [employer] communication (January 22, 2020) are processed with the caveat that they were not all validated for use with this test and the result must be interpreted in this context. Furthermore, a false negative results may occur if a specimen is improperly collected, transported or handled. If the virus mutates in the RT-PCR target region, SARS-CoV-2 may not be detected or may be detected less predictably. Inhibitors or other types of interference may produce a false negative result. An interference study evaluating the effect of common cold medications was not performed. This test is not FDA-cleared but its performance characteristics were established by our CLIA-certified, CAP-accredited, high complexity laboratory in accordance with CLIA regulations, [employer] (CAP) guidelines (Jan 15, 2020), and FDA guidance (Dec 27, 2019). This test is only for use under the Food and Drug Administration's Emergency Use Authorization. Performing Lab [facility] 10/04/2020 14:11 EST [facility] Swab 10/01/2020 13:5 5 EST 10/01/2020 21:31 EST Provider Outr Resulting Lab MICROBIOLOGY - GENERAL ORDERABLES [facility] [address] [place] [address] [facility] [place] documented in this encounter Visit Diagnoses Not on filedocumented in this encounter Care Teams Catering Staff Member Relationship Specialty Start Date End Date Unknown, Provider, PCP - General 01/11/18 documented as of this encounter
--- OUTSIDE RECORDS SUMMARY | 2024-06-03 01:47 | XMS_ITS | Referral Summary ---
Author Organization [facility] Address [address] [place] [address] Care Team Providers Care Animal Cytologist Name Role Phone Unknown, Provider Primary Care Provider [phone] Social History Tobacco Use Types Packs/Day Years Used Date Smoking Tobacco: Never Assessed Interpersonal Safety Answer Date Record ed Physically Hurt Never 05/31/2020 Verbally Threaten Not on file 05/31/2020 Sex and Gender Information Value Date Recorded Sex Assigned at Not on file Gender Identity Not on file Sexual Orientation Not on file Plan of Treatment Not on file Care Teams Animal Cytologist Relationship Specialty Start Date End Date Unknown, Provider, PCP - General 01/11/18
--- OUTSIDE RECORDS SUMMARY | 2024-06-03 01:47 | XMS_ITS | Encounter Summary ---
Author Organization [facility] Address [facility] [place] [address] Care Team Providers Care Container Coordinator Name Role Phone Patricia Garza APRN Primary Care Provider Reason for Visit * Consultation (Routine) - Closed Specialty Diagnoses / Procedures Referred By Contkimberley t Referred To Contact Gastroenterology Diagnoses Noninfective gastroenteritis and colitis, unspecified Gastro-esophageal reflux disease without esophagitis Other specified postprocedural states Personal history of other diseases of the digestive system motility- noinfective gastroenteritis- GERD/ (Sharla P 2021) Patricia Garza APRN [address] [place] [address] [facility] [address] [place] [address] Referral ID Status Reason Start Date Expiration Date V isits Requested Visits Authorized [id number] Closed Consult, Test & Treat PCP Updated and/or Approved 04/23/2023 10/23/2023 6 6 Encounter Details Date Type Department Care Team (Latest Contact Info) Description 02/26/2024 11:00 AM EDT TH Visit (TeleHealth) [place] [address] Abbey Neumann PA [facility] [place] [address] Change in bowel habits Social History Tobacco Use Types Packs/Day Years [...] as of this encounter Progress Notes * Abbey Neumann PA - 02/26/2024 11:00 AM EDT Images from the original note were not included. GASTROENTEROLOGY TELEHEALTH PROGRAM - NEW PATIENT VISIT Chief Complaint: Linda Fuller is a 84 y.o. patient referred for consultation by Dr. Garza forregurgitation History of Present Illness: 2021 81-year-old female seen in consultation for nausea and vomiting. She is accompanied by her Son. 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 Marroquin. She was readmitted following her repair for poor p.o. intake. She was last seen by Dr. Marroquin in August and was doing well from a surgical standpoint. She feels this has improved her chest pressure In September she was evaluated in the emergency department for nausea and vomiting associated with hematemesis. She did have an EGD at that time which did not reveal causes for hematemesis. She also had a swallow study. See below She has been having regurgitation/emesis at night. She does not regurgitate/vomit food, mostly mucus. Typically occurs 15 min after eating Son confirms it did not look like food Tends to be smaller volume emesis and regurgitation This has been occurring before surgery- she tells me this has been occurring for years This does not occur during the day as frequently No dysphagia No abdominal pain She drinks ensure on a regular basis Weight is stable recently +early satiety No NSAID use No opioids 02/26/24 She is accompanied by her daughterDarlin She is having diarrhea This is most days, in the morning She usually has a BM after eating. She will have 2-3 episodes She will take imodium (1 tablet) with good response Her daughter tells me she has asked for a stool softener. She then states she may not move her bowels for a few days She has some cramps with this This is worse when she goes out to eat No nocturnal awakening December she was at [facility] for 'demand ischemia'- her family feels it was an allergic reaction to an antibiotic She reports having had a CT scan and reports being told she had 'colitis'- we do not have this report Her daughter pulled up result on the phone January 01 CTAP Impression mildly dilated small bowel in the lower pelvis. Could represent regional ileus vs earlier partial small bowel obstruction. Fluid in distal esophagus consistent with reflux diverticulosis without evidence of diverticulitis Review of systems: 14-point review of systems reviewed and negative except as above. Medications: Allergies: is allergic to pcn [penicillins] and sulfa (sulfonamide antibiotics). Past Medical History: Past Surgical History: has a past surgical history that includes joint replacement (Right); joint replacement (Left); Cholecystectomy; Laparoscopy Repair Paraesophageal Hernia Incl Fundoplasty W/O Mesh (94037) (N/A, 08/15/2021); Upper GI Endoscopy, Diagnostic (49624) (N/A, 08/15/2021); and Upper GIEndoscopy, Diagnostic (84889) (N/A, 10/24/2021). Family History: family history includes Cancer in her father; Cerebrovascular Accident in her mother. denies family history of colon cancer, IBD, or celiac disease in mother father or other family members Social History: reports that she has quit smoking. Her smoking use included cigarettes. She has a 15.00 pack-year smoking history. She has never used smokeless tobacco. She reports that she does not currently use alcohol. She reports that she does not currently use drugs. Laboratory studies, imaging, and procedures (my review of prior records): 10/24/21 EGD Impression: - Normal esophagus. - Z-line regular, 35 cm from the incisors. - Normal stomach. - Non-bleeding duodenal diverticulum. - Normal mucosa was found in the entire examined duodenum. - No specimens collected. 10/25/21 BaS IMPRESSION 1. Severe esophageal dysmotility with contrast retention within the esophagus throughout the examination. 2. A 13 mm barium tablet does not pass the gastroesophageal junction into the gastric lumen despite what appears to be an anatomically patent gastroesophageal Junction.. HREM 04/2021 Impressions based on [place] Classification v4.0: The catheter tip did not pass through the diaphragm so accurate assessment of the LES could not be completed. There is evidence of preserved esophageal peristalsis ruling out achalasia. If assessment of the LES function is needed please contact us regarding potentially arranging an endoscopically placed catheter. Assessment/Plan 84-year-old female, accompanied by her daughter, seen for change in bowel pattern. She reports having diarrhea typically in the morning where she will have 2-3 episodes. She does use Imodium. She also reports that she may not move her bowels for several days in a row and recently asked her daughterfor stool softener. It is a bit unclear as to whether she is having diarrhea which she is treating with Imodium and then developing adverse effects of constipation or whether she is having more mixed IBS or perhaps constipation with overflow diarrhea. Given the complexity, I have recommended avoiding Imodium and switching to Benefiber. This may helpwith both loose stools and constipation. I also asked her to keep track of her pattern and suggested she print out a calendar and write an x every time she has a bowel movement so we are able to figure out this pattern a bit more. I would also recommend enteric-coated peppermint for abdominal discomfort which may be related to colonic spasm. Follow-up in 3 months MANDY Barcenas [facility] [place] [address] documented in this encounter Plan of Treatment Scheduled Referrals Name Type Priority Associated Diagnoses Order Schedule Referral to Gastroenterology Outpatient Referral Routine Routine general medical examination at a [facility] care facility Ordered: 05/04/2023 documented as of this encounter Visit Diagnoses Diagnosis Change in bowel habits Other symptoms involving digestive system documented in this encounter Care Teams Container Coordinator Relationship Specialty Start Date End Date Patricia Garza APRN [address] [place] [address] PCP - General Internal Medicine 04/02/20 documented as of this encounter
--- OUTSIDE RECORDS SUMMARY | 2024-06-03 01:47 | XMS_ITS | Encounter Summary ---
Author Organization [facility] Address [address] [place] [address] Care Team Providers Care Neon Light Installer Name Role Phone Unknown, Provider Primary Care Provider Encounter Details Date Type Department Care Team (Latest Contact Info) Description 01/11/2018 9:41 EDT - 01/11/2018 23:59 EDT Hospital Encounter [address] [address] Unknown, Provider, Discharge Disposition: Home or Self Care Social History Tobacco Use Types Packs/Day Years Used Date Smoking Tobacco: Never Assessed Sex and Gender Information Value Date Recorded Sex Assigned at Not on file Gender Identity Not on file Sexual Orientation Not on file documented as of this encounter Discharge Disposition Disposition Code Departure Means Destination Home or Self Alf documented in this encounter Plan of Treatment Not on file documented as of this encounter Visit Diagnoses Not on filedocumented in this encounter Care Teams Neon Light Installer Relationship Specialty Start Date End Date Unknown, Provider, PCP - General 01/11/18 documented as of this encounter
--- OUTSIDE RECORDS SUMMARY | 2024-06-03 01:47 | XMS_ITS | Encounter Summary ---
Author Organization [facility] Address [address] [place] [address] Care Team Providers Care Traffic Control Officer Name Role Phone Unknown, Provider Primary Care Provider [phone] Encounter Details Date Type Department Care Team (Late st Contact Info) Description 01/10/2018 Results Only [facility] [phone] Jodi Gillis MD [address] [place] [address] [address] [place], [place] [id number] Social History Tobacco Use Types Packs/Day Years Used Date Smoking Tobacco: Never Assessed Sex and Gender Information Value Date Recorded Sex Assigned at Not on file Gender Identity Not on file Sexual Orientation Not on file documented as of this encounter Plan of Treatment Not on file documented as of this encounter Procedures Procedure Name Priority Date/Time Associated Diagnosis Comments SURGICAL PATHOLOGY Routine 01/10/2018 21 :28 EDT documented in this encounter Results * SURGICAL PATHOLOGY (01/10/2018 21:28 EDT) Pathology Report: SURGICAL PATHOLOGY REPORT Reports generated via electronic interface contain original data; however they are lacking the format of the original report. Caution should be taken when reading/interpreting unformatted reports. Name: ? LINDA ROSS ? Accession #: ? [id number] ? : ? 1940 (Age: 77) ??F ? Collect Date: ? 01/10/2018 ? Location: ? [facility] ? Receive Date: ? 01/11/2018 ? Provider: JODI GILLIS MD Copy to: GABY COELHO EARLY CHILDHOOD WORKER ? Final Pathologic Diagnosis: GALLBLADDER, CHOLECYSTECTOMY: - Acute and chronic cholecystitis with reactive epithelial changes. See comment. - Cholelithiasis. Comment: Business Law Professor slides of this case were reviewed at the intradepartmental consultation conference. Dr. Vences 01/16/2018 10:28 AM Document reviewed and electronically signed by: DONNIE TIERNEY MD Report ??Date: 01/17/2018 08:09 By the signature above, the attending physician certifies that he/she has personally conducted a gross and/or microscopic examination of the described specimens and rendered or confirmed the above diagnosis. Specimen(s) Received: Gallbladder Clinical History: Acute cholecystitis Gross Description: ? Received in formalin labelled with proper patient identification (initials L, G) and gallbladder is a collapsed multifocally disrupted gallbladder with attached cystic duct (8.8 x 3.8 x 3.5 cm). A possible periductal lymph node is present (1.0 x 0.5 x 0.4 cm). The gallbladder serosa is dusky and patiño-purple to hemorrhagic. The cystic duct lumen is patent. The gallbladder lumen contains a round 2.0 cm in greatest dimension mixed cholesterol pigment calculus. The mucosal surface varies from smooth, dull, and brown-black to slightly granular, dusky, and green-brown. The wall ranges from 0.2-0.8 cm in thickness and is hemorrhagic, without areas of induration. Received in the same container is a 2.0 cm in greatest dimension smooth multifaceted mixed cholesterol pigment calculus. Business Law Professor sections are submitted, to include the cystic duct margin, en face, in 1. MANDY Monique (ASCP) 01/14/2018 3:08 PM End of Report [facility] 01/10/2018 21:2 8 EDT 01/11/2018 21:28 EDT Jodi Gillis MD PATHOLOGY ORDERA MARIBELL [facility] [address] [place] [id number] documented in this encounter Visit Diagnoses Not on filedocumented in this encounter Care Teams Traffic Control Officer Relationship Specialty Start Date End Date Unknown, Provider, PCP - General 01/11/18 documented as of this encounter
--- OUTSIDE RECORDS SUMMARY | 2024-06-03 01:47 | XMS_ITS | Encounter Summary ---
Author Organization [facility] Address [address] [place] [address] Care Team Providers Care Rn Manager Name Role Phone Unknown, Provider Primary Care Provider [phone] Encounter Details Date Type Department Care Team (Late st Contact Info) Description 04/26/2023 Lab Requisition [facility] Pathology & Laboratory Medicine - [facility] [address] [place] [address] Outr Resulting Lab, Provider Social History Tobacco [...] Procedure Name Priority Date/Time Associated Diagnosis Comments FECAL BACTERIAL PATHOGENS BY PCR Routine 04/24/2023 10:30 EDT documented in this encounter Results * FECAL BACTERIAL PATHOGENS BY PCR (04/24/2023 10:30 EDT) Salmonella PCR Negative Negative 04/27/2023 7:06 EDT [facility] Shigella/Enteroin vasive E. coli Negative Negative 04/27/2023 7:06 EDT [facility] HN LAB CAMPYLOBACTER PCR Negative Negative 04/27/2023 7:06 EDT [facility] Shiga Toxin PCR Negative Negative 7:06 EDT [facility] Feces SPECIMEN FROM RECTUM / Unknown 04/24/2023 10:30 EDT 04/26/2023 18:18 EDT Provider Outr Resulting Lab MICROBIOLOGY - GENERAL ORDERABLES [facility] [address] [place] [id number] documented in this encounter Visit Diagnoses Not on filedocumented in this encounter Care Teams Rn Manager Relationship Specialty Start Date End Date Unknown, Provider, PCP - General 01/11/18 documented as of this encounter
--- OUTSIDE RECORDS SUMMARY | 2024-06-03 01:47 | XMS_ITS | Encounter Summary ---
Author Organization [facility] Address [address] [place] [address] Care Team Providers Care Carbider Name Role Phone Unknown, Provider Primary Care Provider Encounter Details Date Type Department Care Team (Late st Contact Info) Description 10/10/2022 Lab Requisition [facility] Pathology & Laboratory Medicine - [facility] [address] [place] [address] Patricia Garza NP [address] [place] [address] Encounter for other general examination Social History Tobacco Use Types Packs/Day Years [...] Procedure Name Priority Date/Time Associated Diagnosis Comments ORGANISM IDENTIFICATION AND SUSCEPTIBILITY Today 10/03/2022 16:23 EST Encounter for other general examination ORGANISM IDENTIFICATION AND SUSCEPTIBILITY Today 10/03/2022 16:23 EST Encounter for other general examination documented in this encounter Results * (ABNORMAL) ORGANISM IDENTIFICATION AND SUSCEPTIBILITY (10/03/2022 16:23 EST) Organism ID Pantoea agglomeran s(A) VITEK SUSCEPTIBILITY 10/12/2022 9:23 EST [facility] Organism (organism) URINE / Unknown 10/03/2022 16:23 EST 10/10/2022 21:23 EST Narrative Organism Antibiotic Method Susceptibility Pantoea agglomerans Cefepime VITEK SUSCEPTIBILITY <=1 ug/mL: Susceptible Pantoea agglomerans Ceftriaxone VITEK SUSCEPTIBILITY <=1 ug/mL: Susceptible Pantoea agglomerans Ciprofloxacin VITEK SUSCEPTIBILITY <=0.25 ug/mL: Susceptible Pantoea agglomerans Ertapenem VITEK SUSCEPTIBILITY <=0.5 ug/mL: Susceptible Pantoea agglomerans Meropenem VITEK SUSCEPTIBILITY <=0.25 ug/mL: Susceptible Pantoea agglomerans Nitrofurantoin VITEK SUSCEPTIBILIT Y 64 ug/mL: Intermediate Pantoea agglomerans Piperacillin Tazobactam VITEK SUSCEPTIBILITY 8 ug/mL: Susceptible Pantoea agglomerans Trimethoprim-Sulfame th oxazole VITEK SUSCEPTIBILITY <=20 ug/mL: Susceptible Patricai Garza NP MICROBIOLOGY - GENER AL ORDERABLES Performing Organization Address [facility] de Phone Number [facility] [address] [place] [address] * (ABNORMAL) ORGANISM IDENTIFICATION AND SUSCEPTIBILITY (10/03/2022 16:23 EST) Organism ID Pseudomonas putida(A) VITEK SUSCEPTIBILITY 10/12/2022 9:24 EST [facility] Organism (organism) URINE / Unknown 10/03/2022 16:23 EST 10/10/2022 21:23 EST Narrative Organism Antibiotic Method Susceptibility Pseudomonas putida Amikacin VITEK SUSCEPTIBILITY <=2 ug/mL: Susceptible Pseudomonas putida Cefepime VITEK SUSCEPTIBILITY <=1 ug/mL: Susceptible Pseudomonas putida Ciprofloxacin VITEK SUSCEPTIBILITY <=0.25 ug/mL: Susceptible Pseudomonas putida Meropenem VITEK SUSCEPTIBILITY 0.5 ug/mL: Susceptible Pseudomonas putida Piperacillin Tazobactam VITEK SUSCEPTIBILITY 8 ug/mL: Susceptible Pseudomonas putida Trimethoprim-Sulfame th oxazole VITEK SUSCEPTIBILITY >=320 ug/mL: Resistant Patricia Garza NP MICROBIOLOGY - GENER AL ORDERABLES Performing Organization Address [facility] Co de Phone Number [facility] [address] [place] [address] documented in this encounter Visit Diagnoses Diagnosis Encounter for other general examination documented in this encounter Care Teams Carbider Relationship Specialty Start Date End Date Unknown, Provider, PCP - General 01/11/18 documented as of this encounter
--- OUTSIDE RECORDS SUMMARY | 2024-06-03 01:47 | XMS_ITS | Clinical Summary ---
Author Organization [facility] Address [address] [facility] [place] [address] Care Team Providers Care Pmo Consultant Name Role Phone Patricia Garza APRN Primary Care Provider Allergies Active Allergy Reactions Criticality Noted Date Comments Penicillins Other (See Comments) High 04/13/2020 Arms swell up Sulfa (Sulfonamide Antibiotics) Nausea And Vomiting High 04/13/2020 Medications Medication Sig Dispensed Refills Start Date End Date Status acetaminophen (Tylenol) 500 mg Tablet Take 650 mg by mouth every 6 hours as needed for Pain. Active albuteroL 90 mcg/actuation HFA Aerosol Inhaler Inhale 2 puffs into the lungs every 4 hours as needed for Wheezing. Use with spacer Active amLODIPine (Norvasc) 10 mg Tablet Take 10 mg by mouth daily. Active apixaban 5 mg (74 tabs) Tablets, Dose Pack Take 5 mg by mouth 2 times daily. Active buPROPion XL (Wellbutrin XL) 150 mg Tablet Extended Release 24 hr Take 150 mg by mouth every morning. Active calcium-vitamin D 500 mg(1,250mg) -200 unit Tablet Take 1 tablet by mouth 2 times daily (with meals). Active citalopram (CeleXA) 20 mg Tablet Take 20 mg by mouth daily. Active denosumab (PROLIA) 60 mg/mL Syringe Inject 60 mg subcutaneously once. Active fenofibrate (TRICOR) 48 mg Tablet Take 48 mg by mouth daily. Active fluticasone propionate (FLOVENT) 110 mcg/actuation HFA Aerosol Inhaler Inhale 1 puff into the lungs 2 times daily. Active metoprolol succinate XL (Toprol-XL) 50 mg Tablet Sustained Release 24 hr Take 50 mg by mouth daily. Active omeprazole (PriLOSEC) 40 mg Capsule, Delayed Release(E.C.) Take 40 mg by mouth daily. Active vit A/vit C/vit E/zinc/copper (ICAPS AREDS ORAL) Take by mouth. Active doxycycline (ADOXA) 100 mg Tablet Take 1 tablet by mouth 2 times daily. 12 tablet 08/19/2021 Active Additional Information Patient not taking.Reported on 12/13/2021 levoFLOXacin (LEVAQUIN) 500 mg Tablet Take 1 tablet by mouth daily. 10 tablet 08/22/2021 Active docusate sodium (Colace) 50 mg/5 mL Liquid Take 5 mLs by mouth 2 times daily as needed. 100 mL 08/30/2021 Active Active Problems Problem Noted Date Diagnosed Date Hematemesis 10/23/2021 Anticoagulant long-term use 06/27/2021 Cough 06/27/2021 LEWIS (dyspnea on exertion) 06/27/2021 Fall 06/27/2021 Hyperglycemia 06/27/2021 Hypokalemia 06/27/2021 Iliotibial band syndrome of right side Left shoulder pain 06/27/2021 Lung nodule < 6cm on CT 06/27/2021 Paraesophageal hernia 06/27/2021 Rib pain on left side 06/27/2021 Urinary incontinence 06/27/2021 Vomiting 06/27/2021 Wheeze 06/27/2021 Anxiety and depression 09/05/2017 Osteoporosis 02/13/2017 Adjustment disorder, unspecified 11/16/2016 Gastroesophageal reflux disease 04/28/2016 History of gallstones 04/28/2016 Essential hypertension 04/28/2016 History of CVA (cerebrovascular accident) 2014 Status post total right knee replacement 012 Hypertension Hyperlipemia Depression CVA (cerebral vascular accident) Atrial fibrillation Overview (04/13/2020): on eliquis Family History Medical History Relation Comments Cancer Father Cerebrovascular Accident Mother Relation Status Comments Father Mother Social History Tobacco Use Types Packs/Day Years Used Date Smoking Tobacco: Former Cigarettes 1 15 Smokeless Tobacco: Never Comments:quit 40 yrs ago Alcohol Use Standard Drinks/Week Comments Not Currently 0 (1 standard drink = 0.6 oz pur e alcohol) Sex and Gender Information Value Date Recorded Sex Assigned at Not on file Gender Identity Not on file Sexual Orientation Not on file Last Filed Vital Signs Vital Sign Reading Time Taken Comments Blood Pressure 164/96 12/13/2021 2:43 PM EST Man ually Pulse 84 12/13/2021 2:43 PM EST Temperature 36.7 ??C (98.1 ??F) 10/25/2021 1 1:33 AM EST Respiratory Rate 18 10/25/2021 7:40 AM EST Oxygen Saturation 98% 10/25/2021 7:47 AM EST Inhaled Oxygen Concentration - - Weight 61.2 kg (134 lb 14.4 oz) 12/13/2021 2:43 PM EST Height 149.9 cm (4' 11) 12/13/2021 2:43 PM EST Body Mass Index 27.25 12/13/2021 2:43 PM EST Plan of Treatment Health Maintenance Due Date Last Done Comments Tdap adult 1958 Tetanus vaccine 1959 Zoster vaccine (1 of 2) 1989 Advance Directive 1994 Bone Density Scan 02/24/2004 Pneumoccocal Vaccine: 65+ (1 of 1 - PCV) 02/24/2004 Covid-19 Vaccine (1 - 2022- season) 2023 Influenza (Flu) vaccine (1 o f 1 - Influenza standard series) 06/29/2024 Advance Directives Documents on File Type Date Recorded 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 05/24/2021 12:[address] * Attempt Cardiopulmonary Resuscitation - Inpatient (Latest Code Status on File) Date Activated Date Inactivated Comments 10/25/2021 12:45 PM 10/25/2021 6:08 PM Question Answer Comments Code Status decision made by: Patient * Attempt Cardiopulmonary Resuscitation - Inpatient Date Activated Date Inactivated Comments 08/17/2021 9:13 AM 08/19/2021 8:37 PM Question Answer Comments Code Status decision made by: Patient * Attempt Cardiopulmonary Resuscitation - Inpatient Date Activated Date Inactivated Comments 08/15/2021 11:46 AM 08/16/2021 8:27 PM Question Answer Comments Code Status decision made by: Patient * Attempt Cardiopulmonary Resuscitation - Inpatient Date Activated Date Inactivated Comments 08/15/2021 6:51 AM 08/15/2021 11:46 AM Question Answer Comments Code Status decision made by: Patient Care Teams Pmo Consultant Relationship Specialty Start Date End Date Patricia Garza, LAZARA [address] [place] [address] PCP - General Internal Medicine 04/02/20
--- OUTSIDE RECORDS SUMMARY | 2024-06-03 01:47 | XMS_ITS | Encounter Summary ---
[place] [address] Care Team Providers Care Continuous Process Tanner Rotary Drum Name Role Phone Patricia Garza APRN Primary Care Provider [phone] Encounter Details Date Type Department Care Team (Late st Contact Info) Description 03/29/2022 Ancillary Procedure [place] [address] Patricia Garza APRN [address] [place] [id number] Social History Tobacco Use Types Packs/Day Years [...] Procedure Name Priority Date/Time Associated Diagnosis Comments FILM LIBRARY STORAGE ONLY NUCLEAR MEDICINE Routine 03/29/2022 12:00 AM EDT documented in this encounter Results * Film Library- Storage Only nuclear medicine (03/29/2022 12:00 AM EDT) Narrative [facility] - 03/30/2022 9:04 AM EDT This exam is auto-finalizing. It's purpose is for storage only. Patricia Garza APRN IM FILM LIBRARY ORD ERABLES [place], [place] documented in this encounter Visit Diagnoses Not on filedocumented in this encounter Care Teams Continuous Process Tanner Rotary Drum Relationship Specialty Start Date End Date Patricia Garza APRN [address] [place] [address] PCP - General Internal Medicine 04/02/20 documented as of this encounter
--- OUTSIDE RECORDS SUMMARY | 2024-06-03 01:47 | XMS_ITS | Encounter Summary ---
Author Organization [facility] [place] [address] Care Team Providers Care Superintendent Drilling And Production Name Role Phone Patricia Garza APRN Primary Care Provider [phone] Encounter Details Date Type Department Care Team (Late st Contact Info) Description 06/20/2022 2:40 PM EDT Office Visit Dermatology at [facility] [address] [place] [id number] Yolie Crow MD [facility] [address] [address] Keratoacanthoma Social History Tobacco Use Types Packs/Day Years [...] encounter Progress Notes * Yolie Crow - 06/20/2022 2:40 PM EDT Images from the original note were not included. DEPARTMENT OF DERMATOLOGY [facility] Provider: Yolie Crow MD Patient's preferred name Linda Preferred contact method for results [x]Phone []myD-H []Letter Detailed phone message OK? Yes Are there any other people with whom we may discuss your care? Past Medical History Date, location, treatment Melanoma No Dysplastic nevi No SCC No BCC No AKs No UV Exposure & Protection No Other relevant past medical history No Family History Details Melanoma No NMSC No Other relevant family history No Social History Occupation: Retired Hobbies: Other: Pre-Procedure Screening Details Allergy to lidocaine, epinephrine, Dermabond, chlorhexidine, or adhesives No Bleeding disorder or blood thinners Yes Implanted devices (Pacemaker, defibrillator, deep brain stimulator, cochlear implant) No History of Present Illness: Linda Fuller is a 82 y.o. 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 Last visit at Dermatology: 06/09/2022 Last visit with this provider: Visit date not found Medications: Reviewed in eD-H Allergies: Reviewed in eD-H Skin Examination: Focused skin examination of the left trunk was normal with the exception of the findings below. Assessment/Plan #. Biopsy-Proven evolving KA - 1.5 cm healing biopsy site on the left trunk. (Figure 1) - Reviewed pathology and ED&C procedure with patient. Earle decision to proceed with ED&C today. - Patient denies allergies to lidocaine and epinephrine. - Patient denies having a pacemaker or defibrillator. Procedure: Destruction of lesion by electrodesiccation and curettage (ED&C) Location: As noted above. Discussed indications and expectations including risks and benefits. Verbal consent obtained. Skin prepped with alcohol. Local anesthesia with 1% xylocaine, 1/100,000 epinephrine. The entire lesion plus a small margin was treated. Post- curettage defect size: 2 cm. There were no complications; patient tolerated the procedure well. Wound dressed. Expectations (including discomfort management) and wound care reviewed. Figure 1 Photo(s) taken and charted with patient's verbal consent. Other: ??? N/A RTC: At patients for FBSE []Note routed to secretary office clerk []Recall placed in scheduling system [x]Appointment scheduled at checkout Scribe attestation: ALTAF Roca has performed the documentation for this encounter in the presence of and acting as a scribe for Yolie Crow MD. I performed the above scribed service and agree with the accuracy of the documentation in this encounter. Reviewed and signed by: Yolie Crow MD Dermatology [facility] Patient seen and evaluated with staff folder machine: Rina Ramos MD Dermatology [facility] * Rina Ramos MD - 06/20/2022 2:40 PM EDT I directly supervised Dr. Crow during this office visit. Dr. Crow presented the history and physical exam to me. I, then, saw and examined this patient with Dr. Crow. We reviewed the history and pertinent details and I confirmed the physical findings. I agree with the details of the history and physical exam as documented in Dr. Crow's note. RINA RAMOS MD Staff Physician documented in this encounter Plan of Treatment Not on file documented as of this encounter Visit Diagnoses Diagnosis Keratoacanthoma Neoplasm of uncertain behavior of skin documented in this encounter Care Teams Superintendent Drilling And Production Relationship Specialty Start Date End Date Patricia Garza APRN [address] [place] [address] PCP - General Internal Medicine 04/02/20 documented as of this encounter
--- OUTSIDE RECORDS SUMMARY | 2024-06-03 01:47 | XMS_ITS | Encounter Summary ---
[place] [address] Care Team Providers Care Company Driver Name Role Phone Patricia Garza APRN Primary Care Provider Reason for Visit * Auth/Cert Specialty Diagnoses / Procedures Referred By Amanuel centeno Referred To Contact Diagnoses Hematemesis Referral ID Status Reason Start Date Expiration Date Visits Re quested Visits Authorized [id number] 1 1 Encounter Details Date Type Department Care Team (Late st Contact Info) Description 10/24/2021 1:08 PM EST Anesthesia [place] [address] Socorro Dobbs MD [facility] [place] [address] Anesthesia Record Procedure Summary Procedure Name Responsible Anesthesiologist Anesthesia Start Time Anesthesia Stop Time EGD, UPPER GI ENDOSCOPY (WRVU 2.09) (Trunk) Socorro Dobbs MD 10/24/21 1308 10/24/21 1344 Events Date Time Event Comment 10/24/2021 1306 1308 AN Verify 1308 Start 1308 An Start Data 1316 An Induction 1319 Procedure Start 1319 Anesthesia Ready 1329 Procedure Stop 1338 an stop data 1344 Recovery or ICU Handoff Lora ent care was transferred to the destination unit staff after review of the patient's medical history, current anesthetic/surgical status and plan, according to the Provider Handoff Checklist. 1344 Stop Meds Name Total IV Lidocaine 40 mg Propofol 80 mg Propofol INF 169.07 mg Dexmedetomidine 12 mcg meTOPROLOL (LOPRESSOR) injection 1 mg ePHEDrine 15 mg Lactated Ringers 400 mL * Agents Name O2 Air N2O O2 Auxiliary Flowmeter 1 * Blood No blood administrations on file. Lines, Drains, and Airways Type Details Placement Removal Incision 08/15/21; 08; anterior; abdomen; laparoscopic punctures (specify); 10/25/21; 1502 (not present. Old LDA) 08/15/21 0820 by Evangelina Vogel, RN 10/25/21 1502 by Prabha Stephens, RN (RETIRED) Peripheral IV Line - Single Lumen 10/24/21; 0145; cephalic vein (lateral side of arm), left; [id number] catheter system; Anatomical Landmarks; 22 gauge, 1 in length; rmt, skiver machine operator-vas; distraction, tolerated well, appears comfortable; 10/25/21; 1338 10/24/21 0145 by Liliana Butts LPN 10/25/21 1338 by Prabha Stephens, RN documented in this encounter Social History Tobacco Use Types Packs/Day Years [...] on file documented as of this encounter OR Notes * Anesthesia Postprocedure Evaluation - Socorro Dobbs MD - 10/24/2021 2:45 PM EST Department of Anesthesiology Post-procedure Note Patient: Linda Fuller Procedure Summary Date: 10/24/21 Room / Location: [facility] ENDO 3 / [facility] ENDOSCOPY Anesthesia Start: 1308 Anesthesia Stop: 1344 Procedure: EGD, UPPER GI ENDOSCOPY (N/A Trunk) Diagnosis: (hematemesis) Surgeons: Houston Mehta MD Responsible Provider: Socorro Dobbs MD Anesthesia Type: general ASA Status: 3 All Anesthesia Providers: Anesthesiologist: Socorro Dobbs MD PROPERTY OFFICER: Neha Pierce CRNA Vitals Value Taken Time BP 167/75 10/24/21 1430 Temp Pulse 65 10/24/21 1340 Resp 18 10/24/21 1430 SpO2 96 % 10/24/21 1439 Pain Level 0 10/24/21 1430 Vitals shown include unvalidated device data. Patient Location: PACU/[facility] Level of Consciousness: Awake and Alert Pain Management: Satisfactory Analgesia PONV: None Cardiovascular Status: Hypertension (received treatment) Respiratory Status: At Baseline Postoperative Fluid Status: Intravascular EUvolemia Possible Anesthetic Complications: NONE apparent at time of evaluation Final Primary Anesthesia Type: MAC (The anesthetic type performed was the same as planned.) Comments: * Anesthesia Preprocedure Evaluation - Socorro Dobbs MD - 10/24/2021 10:23 AM EST Pre-Anesthesia Evaluation for: Linda Fuller a 81 y.o. female. Procedure(s): EGD, UPPER GI ENDOSCOPY Patient Active Problem List Diagnosis ??? Hematemesis ??? Anticoagulant long-term use ??? Cough ??? LEWIS (dyspnea on exertion) ??? Fall ??? Hyperglycemia ??? Hypokalemia ??? Iliotibial band syndrome of right side ??? Left shoulder pain ? ? Lung nodule < 6cm on CT ??? Paraesophageal hernia ??? Rib pain on left side ??? Urinary incontinence ??? Vomiting ??? Wheeze ??? Hypertension ??? Hyperlipemia ??? Depression ??? CVA (cerebral vascular accident) ??? Atrial fibrillation on eliquis ??? Anxiety and depression ??? Osteoporosis ??? Adjustment disorder, unspecified ??? Gastroesophageal reflux disease ??? History of gallstones ??? Essential hypertension ??? History of CVA (cerebrovascular accident) ??? Status post total right knee replacement Past Medical History: Diagnosis Date ??? Atrial fibrillation on eliquis ??? CVA (cerebral vascular accident) ??? Depression ??? Hyperlipemia ??? Hypertension Past Surgical History: Procedure Laterality Date ??? CHOLECYSTECTOMY ??? JOINT REPLACEMENT Right ??? JOINT REPLACEMENT Left ??? PRO LAPAROSCOPY, SURG, REPAIR PARAESOPHAGEAL HERNIA, W/O IMPLANTATION OF MESH N/A 08/15/2021 ROBOT XI LAPAROSCOPIC PARAESOPHAGEAL HERNIA REPAIR W/FUNDOPLASTY,W/O MESH (WRVU 26.6) performed by Hal Marroquin MD at [facility] MAIN OR ??? PRO UPPER GI ENDOSCOPY, DIAGNOSTIC N/A 08/15/2021 EGD, UPPER GI ENDOSCOPY performed by Hal Marroquin MD at [facility] MAIN OR Social History Tobacco Use ??? Smoking status: Former Smoker Packs/day: 1.00 Years: 15.00 Pack years: 15.00 Types: Cigarettes ??? Smokeless tobacco: Never Used ??? Tobacco comment: quit 40 yrs ago Substance Use Topics ??? Alcohol use: Not Currently Social History Substance and Sexual Activity Drug Use Not Currently Allergies Allergen Reactions ??? Pcn [Penicillins] Other (See Comments) Arms swell up ??? Sulfa (Sulfonamide Antibiotics) Nausea And Vomiting Medications: MAR and/or home medications have been reviewed. Physical Exam: Preprocedure Vitals Current as of 10/24/21 1023 BP: 173/80 Pulse: Resp: SpO2: 97 Temp: 36.5 ??C (97.7 ??F) Height: 149.9 cm (4' 11) (10/23/21) Weight: 58.3 kg (128 lb 9.6 oz) (10/24/21) BMI: 25.97 IBW: 39.1 kg (86 lb 3.6 oz) Last edited 10/24/21 0855 by Currently displaying vitals information from multiple entries within 90 minutes of most recent vitals. Airway Assessment: Mallampati: II TM distance: >3 FB Neck ROM: limited Cardiovascular Assessment: Rhythm: regular Pulmonary Assessment: unlabored breathing Dental Assessment: (+) upper dentures and lower dentures Misc Assessment: IV access: Peripheral line Last Filed Perioperative Cognitive Screening None Anesthesia Plan: ASA 3 general, with a(n) intravenous induction Linda Fuller is a 81 y.o. female w/ PMH afib on Eliquis, 15 py smoking hx (quit 30 yrs ago), HTN, HLD, and CVA who presents today with 1 mos PO intolerance and regurgitation and 3 episodes of hematemesis over the last few days. She is s/p a robotic paraesophageal hernia repair with Dr. Marroquin on 08/15/2021. She has not been able to tolerate po intake well - presents for EGD to evaluate Intubated without difficulty in the past. Labs reviewed - reasonable to proceed Prolonged QT noted on EKG Limited physical activity (uses a walker) Denies any issues with anesthesia. Her BP is elevated on arrival. She states she is quite nervous and attributes her elevated BP to her increased anxiety. NPO (for 3 days) Plan: MAC; GETA back up Region - Other Informed Consent: Anesthetic plan and risks discussed with patient. Plan discussed with PROPERTY OFFICER. Anesthesia Screening documented in this encounter Plan of Treatment Not on file documented as of this encounter Visit Diagnoses Not on filedocumented in this encounter Administered Medications Inactive Administered Medications - up to 3 most recent administrations Medication Order MAR Action Action Date Dose Rate Site dexmedetomidine (Precedex) (4 mcg/mL) bolus injection (Anesthsia) Intravenous, PRN, Starting on Sun10/24/21 at 1322, Until Sun10/24/21 at 1344, Anesthesia Intra-op, Routine Given 10/24/2021 1:25 PM EST 6 mcg Given 10/24/2021 1:22 PM EST 6 mcg ePHEDrine sulfate (5 mg/mL) multi-dose injection Intravenous, PRN, Starting on Sun10/24/21 at 1333, Until Sun10/24/21 at 1344, Anesthesia Intra-op, Routine Given 10/24/2021 1:42 PM EST 5 mg Given 10/24/2021 1:36 PM EST 5 mg Given 10/24/2021 1:33 PM EST 5 mg lactated ringers infusion Intravenous, CONTINUOUS PRN, Starting on Sun10/24/21 at 1308, Until Sun10/24/21 at 1344, Anesthesia Intra-op New Bag 10/24/2021 1:08 PM EST lidocaine (pf) (Xylocaine) (20 mg/mL) 2% injection syringe Intravenous, PRN, Starting on Sun10/24/21 at 1316, Until Sun10/24/21 at 1344, Anesthesia Intra-op, Routine Given 10/24/2021 1:16 PM EST 40 mg metoprolol (LOPRESSOR) injection Intravenous, PRN, Starting on Sun10/24/21 at 1313, Until Sun10/24/21 at 1344, Anesthesia Intra-op, Routine Given 10/24/2021 1:13 PM EST 1 mg propofoL (Diprivan) (10 mg/mL) infusion Intravenous, CONTINUOUS PRN, Starting on Sun10/24/21 at 1316, Until Sun10/24/21 at 1344, Anesthesia Intra-op, Routine Rate/Dose Change 10/24/2021 1:26 PM EST 200 mcg/kg/min 69.96 mL/hr Rate/Dose Change 10/24/2021 1:20 PM EST 250 mcg/kg/min 87. 45 mL/hr New Bag 10/24/2021 1:16 PM EST 200 mcg/kg/min 69.96 mL/ hr propofoL (Diprivan) 10 mg/mL bolus injection (Anesthesia) Intravenous, PRN, Starting on Sun10/24/21 at 1316, Until Sun10/24/21 at 1344, Anesthesia Intra-op Given 10/24/2021 1:21 PM EST 20 mg Given 10/24/2021 1:19 PM EST 20 mg Given 10/24/2021 1:17 PM EST 20 mg documented in this encounter Care Teams Company Driver Relationship Specialty Start Date End Date Patricia Garza, LAZARA [address] [facility] [address] PCP - General Internal Medicine 04/02/20 documented as of this encounter
--- OUTSIDE RECORDS SUMMARY | 2024-06-03 01:47 | XMS_ITS | Encounter Summary ---
[place] [address] Care Team Providers Care Urologist Physician Name Role Phone Patricia Garza APRN Primary Care Provider Encounter Details Date Type Department Care Team (Late st Contact Info) Description 05/12/2022 Telephone [place] [id number] Radha Skinner, RN Social History Tobacco Use Types Packs/Day Years [...] on file documented as of this encounter Miscellaneous Notes * Telephone Encounter - Radha Skinner, RN - 05/12/2022 10:30 AM EDT Incoming VM from WilberLinda de leon's son (no personal rep on file) regarding her recent swallow study. Wilber states that she completed the test at [facility] and everythingwas fine, the cookie passed fine. He states they are unsure of next steps for her. Forwarded documented in this encounter Plan of Treatment Not on file documented as of this encounter Visit Diagnoses Not on filedocumented in this encounter Care Teams Urologist Physician Relationship Specialty Start Date End Date Patricia Garza APRN [address] [place] [address] PCP - General Internal Medicine 04/02/20 documented as of this encounter
--- OUTSIDE RECORDS SUMMARY | 2024-06-03 01:47 | XMS_ITS | Encounter Summary ---
Author Organization [facility] [place] [address] Care Team Providers Care Patternmaker Name Role Phone Patricia Garza APRN Primary Care Provider [phone] Reason for Referral * Consultation (Urgent) - Closed Specialty Diagnoses / Procedures Referred By Contac t Referred To Contact Gastroenterology Diagnoses Paraesophageal hernia Emesis, persistent Hal Marroquin MD [facility] [place] [address] [facility] [address] [place] [address] Referral ID Status Reason Start Date Expiration Date V isits Requested Visits Authorized [id number] Closed Consult, Test & Treat 11/14/2021 11/14/2022 1 1 Encounter Details Date Type Department Care Team (Late st Contact Info) Description 11/14/2021 Telephone [place] [address] Livier Chaney, RN Social History Tobacco Use Types Packs/Day [...] encounter Miscellaneous Notes * Telephone Encounter - Livier Chaney RN - 11/14/2021 11:13 AM EST Patient is S/P : re-admit follow robotic [facility] on 08/15/21 for emesis on FLD Recent hospitalization for persistent emesis after meals. Patient was referred to Gastro 10-25 for this and the referral was canceled. Phone call today from PCP requesting a visit with Dr. Marroquin. Patient is still reporting daily emesis. Weight has increased by 6 pounds since hospital discharge. New referral placed to gastro per Dr. Marroquin. PCP will notify the patient. documented in this encounter Plan of Treatment Scheduled Referrals Name Type Priority Associated Diagnoses Order Schedule Referral to Gastroenterology Outpatient Referral Routine Paraesophageal hernia Emesis, persistent Ordered: 11/14/2021 documented as of this encounter Visit Diagnoses Diagnosis Paraesophageal hernia Diaphragmatic hernia without mention of obstruction or gangrene Emesis, persistent Persistent vomiting documented in this encounter Care Teams Patternmaker Relationship Specialty Start Date End Date Patricia Garza APRN [address] [place] [address] PCP - General Internal Medicine 04/02/20 documented as of this encounter
--- OUTSIDE RECORDS SUMMARY | 2024-06-03 01:47 | XMS_ITS | Encounter Summary ---
Author Organization [facility] [place] [place] [address] Care Team Providers Care Search Engine Marketing Strategist Name Role Phone Patricia Garza APRN Primary Care Provider Reason for Visit * Consultation (Routine) - Closed Specialty Diagnoses / Procedures Referred By Amanuel de la paz Referred To Contact Dermatology Diagnoses consult on lesion left flank Procedures consult on lesion left flank Patricia Garza APRN [address] [place] [address] [facility] Dermatology [address] [place] [address] Referral ID Status Reason Start Date Expiration Date Visits Re quested Visits Authorized [id number] Closed 05/25/2022 05/25/2023 1 1 Encounter Details Date Type Department Care Team (Late st Contact Info) Description 06/09/2022 1:40 PM EDT Office Visit Dermatology at [facility] [address] [place] [address] Rosa Elena Dorsey MD [facility] [place] [address] Neoplasm of uncertain behavior, unspecified Social History Tobacco Use Types Packs/Day Years [...] as of this encounter Progress Notes * Rosa Elena Dorsey MD - 06/09/2022 1:40 PM EDT Images from the original note were not included. DEPARTMENT OF DERMATOLOGY Medical Dermatology Clinic Note Provider: Rosa Elena Dorsey MD Patient's preferred name Linda Preferred contact method for results [x]Phone []myD-H []Letter Detailed phone message OK? Yes Are there any other people with whom we may discuss your care? Past Medical History Date, location, treatment Melanoma No Dysplastic nevi No SCC No BCC No AKs No UV Exposure & Protection Other relevant past medical history No Family History Details Melanoma No NMSC No Other relevant family history No Social History Occupation: Retired Hobbies: Other: Pre-Procedure Questions Details Allergy to lidocaine, epinephrine, Dermabond, chlorhexidine, or adhesives No Bleeding disorder or blood thinners Yes Implanted devices (Pacemaker, defibrillator, deep brain stimulator, cochlear implant) No History of Present Illness: Linda Fuller is a 82 y.o. Patient is referred to the clinic at [facility] of Patricia Garza for a spot of concern. Review of Systems: General: Feeling well. Skin: No other skin concerns. Medications: Reviewed in eD-H Allergies: Reviewed in eD-H Skin Examination: Focused skin examination of the left trunk was normal with the exception of the findings below. Assessment/Plan #. Favor SCC - 0.9cm pink dome shaped papule on the left trunk (Figure 1). - Recommended a skin biopsy to confirm/clarify the nature of the skin lesion. After discussion of potential risks (scarring, bleeding, infection) and recurrence, patient agreed to proceed. - Patient denies known allergies to lidocaine and epinephrine. Procedure: Skin shave biopsy Location: left trunk Time of procedure: 1:42 PM Discussed indications for procedure and expectations including risks and benefits. Verbal consent obtained. Time out performed. Skin prepped with alcohol. Local anesthesia with 1% xylocaine, 1/100,000 epinephrine. A sample of the lesion was removed by shave technique to the level of the dermis and s ubmitted to Pathology. Hemostasis obtained (AlCl). There were no complications; patient tolerated the procedure well. Wound dressed. Post-procedure expectations, wound care and activity restrictions reviewed. - Follow-up based on pathology results. Figure 1 Photo(s) taken and charted with patient's verbal consent. Other: ??? N/A RTC: Pending Pathology []Note routed to traveling secretary []Recall placed in scheduling system []Appointment scheduled at checkout Scribe attestation: ALTAF Roca has performed the documentation for this encounter in the presence of and acting as a scribe for Rosa Elena Dorsey MD. I performed the above scribed service and agree with the accuracy of the documentation in this encounter. Reviewed and signed by: Rosa Elena Dorsey MD Dermatology [facility] Patient seen and evaluated with staff film reproducer: Bright Mathias MD Department of Dermatology [facility] * Bright Mathias MD - 06/09/2022 1:40 PM EDT I directly supervised Dr. Dorsey in the care of this patient. I saw and evaluated this patient with Dr. Dorsey. He presented the history and physical exam detailsto me, then we saw the patient together and I confirmed these findings. I agree with details as written. My physical examination confirms Dr. Dorsey's findings. The assessment and plan were formulated in discussion with me at the time of visit and I agree withthem as documented. BRIGHT MATHIAS MD [facility] Staff Physician * Rosa Elena Dorsey MD - 06/09/2022 1:40 PM EDT Called the patient to discuss the biopsy result. Discussed the needs for further treatment with ED&C. After discussing risks and benefits, patient opted for ED&C. Chart routed to Antelmo for scheduling the ED&C. 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, close to the specimen edges in the examined planes of section documented in this encounter Plan of Treatment Not on file documented as of this encounter Procedures Procedure Name Priority Date/Time Associated Diagnosis Comments SPECIMEN TO PATHOLOGY Routine 06/09/2022 1:48 PM EDT Neoplasm of uncertain behavior, unspecified SURGICAL PATHOLOGY REPORT Routine 06/09/2022 1:41 PM EDT documented in this encounter Results * Specimen to Pathology (06/09/2022 1:48 PM EDT) AP Specimen 06/09/2022 1:48 PM EDT 06/09/2022 1:48 PM EDT Narrative [facility] - 06/09/2022 1:48 PM EDT Specimen requisition ordered. ??Separate Pathology report to follow Bright Mathias MD PATHOLOGY/CYTOLOGY O RDERABLES [facility] [place] [address] * Surgical Pathology Report (06/09/2022 1:41 PM EDT) Final Diagnosis [id number] ? Location: [facility] The signing pathologist has (i) examined the relevant preparation(s) for the specimen(s) and (ii) rendered or confirmed the diagnosis(es). . ?Surgical Pathology DIAGNOSIS Left trunk, skin shave biopsy: - Atypical endophytic squamous proliferation, suspicious for evolving ??keratoacantho ma, close to the specimen edges in the examined planes of section Electronically signed by: ?Jhoan Lucio MD Verified: ??06/13/2022 10:30 ??Dermatopathol ogist Performed at: ??-[facility] Dept. of Pathology, [place], [place] DISCUSSION Regarding keratoacanthoma s, it seems most appropriate to regard them as a variant of squamous cell carcinoma [1]. CITATIONS 1) ??Laurie Novoa, Mariely De La Paz, Adonis Bean's Pathology of the Skin with Clinical Correlations. 4th ed. [employer]: [employer]. 2012. pp. 6891. SPECIMEN(S) SUBMITTED A - left trunk, skin shave biopsy (1) CLINICAL INFORMATION 0.9 cm pink dome-shaped papule. Favor SCC SPECIMEN PROCESSING A - Labeled/Fixativ e: Patient demographics, formalin. Quantity/Size: ??Single, 1.3 x 0.9 cm. Tissue Description: Ovoid pink-white shave of a 1.8 x 1.0 x 0.7 cm wedge-shaped variegated [id number]- brown firm, scaly, keratotic lesion. Sections/Proces sing: Inked, serially sectioned and entirely submitted in 3 cassettes as follows: ?A1: ??Tips ?A2-A3: ??Lesion ??shb 06/13/2022 10:30 AM EDT [facility] SPECIMEN FROM SKIN / Unknown 06/09/2022 1:41 PM EDT 06/09/2022 1:41 PM EDT Rosa Elena Dorsey MD PATHOLOGY/CYTOLOGY O AIDEN [facility] [place] [address] documented in this encounter Visit Diagnoses Diagnosis Neoplasm of uncertain behavior, unspecified documented in this encounter Care Teams Search Engine Marketing Strategist Relationship Specialty Start Date End Date Patricia Garza, INCIDENT RESPONSE ANALYST [address] [place] [address] PCP - General Internal Medicine 04/02/20 documented as of this encounter
--- OUTSIDE RECORDS SUMMARY | 2024-06-03 01:47 | XMS_ITS | Encounter Summary ---
Author Organization [facility] Address [facility] [place] [address] Care Team Providers Care Knitting Machine Mechanic Name Role Phone Patricia Garza APRN Primary Care Provider [phone] Reason for Visit * Consultation (Urgent) - Closed Specialty Diagnoses / Procedures Referred By Amanuel centeno Referred To Contact Gastroenterology Diagnoses Paraesophageal hernia Emesis, persistent Hal Marroquin MD [facility] [place] [address] [facility] [address] [place] [address] Referral ID Status Reason Start Date Expiration Date V isits Requested Visits Authorized [id number] Closed Consult, Test & Treat 11/14/2021 11/14/2022 1 1 Encounter Details Date Type Department Care Team (Latest Contact Info) Description 12/13/2021 3:00 PM EST Office [place] [address] Abbey Neumann PA [facility] [place] [address] Regurgitation and rechewing Social History Tobacco Use Types Packs/Day Years [...] on file documented as of this encounter Last Filed Vital Signs Vital Sign Reading Time Taken Comments Blood Pressure 164/96 12/13/2021 2:43 PM EST Man ually Pulse 84 12/13/2021 2:43 PM EST Temperature - - Respiratory Rate - - Oxygen Saturation - - Inhaled Oxygen Concentration - - Weight 61.2 kg (134 lb 14.4 oz) 12/13/2021 2:43 PM EST Height 149.9 cm (4' 11) 12/13/2021 2:43 PM EST Body Mass Index 27.25 12/13/2021 2:43 PM EST documented in this encounter Progress Notes * Abbey Neumann PA - 12/13/2021 3:00 PM EST GASTROENTEROLOGY TELEHEALTH PROGRAM - NEW PATIENT VISIT Chief Complaint: Linda Fuller is a 81 y.o. patient referred for consultation by Dr. Marroquin forregurgitation History of Present Illness: 81-year-old female seen in consultation for nausea [...] +early satiety No NSAID use No opioids Review of systems: 14-point review of systems reviewed and negative except as above. Medications: ??? docusate sodium (Colace) 50 mg/5 mL Liquid ??? levoFLOXacin (LEVAQUIN) 500 mg Tablet ??? vit A/vit C/vit E/zinc/copper (ICAPS AREDS ORAL) ??? acetaminophen (Tylenol) 500 mg Tablet ??? albuteroL 90 mcg/actuation HFA Aerosol Inhaler ??? amLODIPine (Norvasc) 10 mg Tablet ??? apixaban 5 mg (74 tabs) Tablets, Dose Pack ??? buPROPion XL (Wellbutrin XL) 150 mg Tablet Extended Release 24 hr ??? calcium-vitamin D 500 mg(1,250mg) -200 unit Tablet ??? citalopram (CeleXA) 20 mg Tablet ??? denosumab (PROLIA) 60 mg/mL Syringe ??? fenofibrate (TRICOR) 48 mg Tablet ??? fluticasone propionate (FLOVENT) 110 mcg/actuation HFA Aerosol Inhaler ??? metoprolol succinate XL (Toprol-XL) 50 mg Tablet Sustained Release 24 hr ??? omeprazole (PriLOSEC) 40 mg Capsule, Delayed Release(E.C.) ??? doxycycline (ADOXA) 100 mg Tablet Allergies: is allergic to pcn [penicillins] and sulfa (sulfonamide antibiotics). Past Medical History: has a past medical history of Atrial fibrillation, CVA (cerebral vascular accident), Depression, Hyperlipemia, and Hypertension. Past Surgical History: has a past surgical history that includes joint replacement (Right); joint replacement (Left); Cholecystectomy; Laparscopy Repair Paraesophageal Hernia Incl Fundoplasty W/O Mesh (65827) (N/A, 08/15/2021); Upper GI Endoscopy, Diagnostic (29297) (N/A, 08/15/2021); and Upper GI Endoscopy, Diagnostic (82874) (N/A, 10/24/2021). Family History: family history includes Cancer in her father; Cerebrovascular Accident in her mother. denies family history of colon cancer, IBD, or celiac disease in mother father or other family members Social History: reports that she has quit smoking. Her smoking use included cigarettes. She has a 15.00 pack-year smoking history. She has never used smokeless tobacco. She reports previous alcohol use. She reports previous drug use. Physical exam: No Physical Examination performed during this telemedicine visit Laboratory studies, imaging, and procedures (my review of prior records): 10/24/21 EGD Impression: ?- Normal esophagus. ?- Z-line regular, 35 cm from the ?incisors. ?- Normal stomach. ?- Non-bleeding duodenal diverticulum. ?- Normal mucosa was found in the ?entire examined duodenum. ?- No specimens collected. 10/25/21 BaS IMPRESSION 1. Severe esophageal dysmotility with contrast retention within the esophagus throughout the examination. 2. A 13 mm barium tablet does not pass the gastroesophageal junction into the gastric lumen despite what appears to be an anatomically patent gastroesophageal Junction.. HREM 04/2021 Impressions based on [place] Classification v4.0: The catheter tip did not pass through the diaphragm so accurate assessment of the LES could not be completed. ?? There is evidence of preserved esophageal peristalsis ruling out achalasia. If assessment of the LES function is needed please contact us regarding potentially arranging an endoscopically placed catheter. Assessment/Plan 81-year-old female, accompanied by her son, seen in consultation for regurgitation versus emesis. She was having significant chest pressure and ultimately had a repair of a large paraesophageal hernia this fall. This had significantly improved her chest pressure. She continues to have regurgitation versus emesis which has been occurring for several years. It is somewhat difficult to discern whether she is having small volume emesis versus regurgitation. She did have a barium swallow in revealed esophageal dysmotility. Her high-resolution esophageal manometry this past summer revealed preserved peristalsis prior to her hernia repair. She tends to experience the symptoms within 20 minutes of eating and interestingly this occurs muchmore frequently after her dinner. She is unsure if she is eating more during dinner though she has made it a point to not lie down after eating We discussed symptoms in detail. She does have early satiety and I am wondering whether her symptoms may be related to delayed gastric emptying. We discussed proceeding with a gastric emptying scan. She will try to arrange this at [facility]. Her son will contact them to schedule. If they do not have this test available they will let me know and will consider having this completed here at [facility]. They also question whether a assembly lead person may be helpful. I do think a consultation with our GI assembly lead person may be helpful to review a delayed gastric emptying diet. All of their questions today were answered and they are comfortable with this plan MANDY [facility] [place] [address] documented in this encounter Plan of Treatment Not on file documented as of this encounter Visit Diagnoses Diagnosis Regurgitation and rechewing Vomiting alone documented in this encounter Care Teams Knitting Machine Mechanic Relationship Specialty Start Date End Date Patricia Garza APRN [address] [place] [address] PCP - General Internal Medicine 04/02/20 documented as of this encounter
--- OUTSIDE RECORDS SUMMARY | 2024-06-03 01:47 | XMS_ITS | Encounter Summary ---
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 Name Role Phone Patricia Garza APRN Primary Care Provider Reason for Referral * Consultation (Routine) - Closed Specialty Diagnoses / Procedures Referred By Amanuel centeno Referred To Contact Gastroenterology Diagnoses Hematemesis Regurgitation of food Hematemesis Regurgitation of food Jacqueline Paul MD [facility] [place] [address] [facility] [address] [place] [address] Referral ID Status Reason Start Date Expiration Date V isits Requested Visits Authorized [id number] Closed Specialty Service Requested 10/25/2021 10/25/2022 1 1 Reason for Visit * Reason Comments Emesis * Auth/Cert Specialty Diagnoses / Procedures Referred By Amanuel centeno Referred To Contact Diagnoses Hematemesis Referral ID Status Reason Start Date Expiration Date Visits Re quested Visits Authorized [id number] 1 1 Encounter Details Date Type Department Care Team (Late st Contact Info) Description 10/23/2021 11:29 AM EST - 10/25/2021 4:07 PM EST Emergency 4 [place] [address] Patrice Cárdenas MD [facility] [place] [address] Hematemesis (Primary Dx); History of CVA (cerebrovascular accident); Regurgitation of food Discharge Disposition: Home Social History Tobacco Use Types Packs/Day Years [...] Sign Reading Time Taken Comments Blood Pressure 140/93 10/25/2021 3:10 PM EST Pulse 90 10/24/2021 8:55 PM EST Temperature 36.7 ??C (98.1 ??F) 10/25/2021 1 1:33 AM EST Respiratory Rate 18 10/25/2021 7:40 AM EST Oxygen Saturation 98% 10/25/2021 7:47 AM EST Inhaled Oxygen Concentration - - Weight 57.1 kg (125 lb 14.4 oz) 10/25/2021 6:00 AM EST Height 149.9 cm (4' 11) 10/23/2021 11: 41 AM EST Body Mass Index 25.43 10/23/2021 11:41 AM EST documented in this encounter Discharge Summaries * Jacqueline Paul MD - 10/25/2021 10:06 AM EST Images from the original note were not included. Department of Thoracic Surgery - Discharge Summary Patient Name: Linda Fuller Patient Age: 81 y.o. Birthdate: 1940 Admit date: 10/23/2021 Discharge date: 10/25/2021 Attending Physician: Patrice Cárdenas MD Discharge Diagnoses (Hospital Problems) and Secondary Diagnoses (Chronic Problems): Active Hospital Problems Diagnosis ??? Hematemesis Resolved Hospital Problems No resolved problems to display. Active Non-Hospital Problems Diagnosis ??? Anticoagulant long-term use ??? Cough ??? [...] ??? Status post total right knee replacement Operations/Major Procedures: Operations: Case Date: 10/24/2021 Surgeon: Surgeon(s) and Role: * Houston Mehta MD - Primary Procedure: Procedure(s): EGD, UPPER GI ENDOSCOPY Other Major Procedures: Swallow study History of Presentation: Linda Fuller is a 81 y.o. female with PMH AF on eliquis, CVA, HTN, HLD, and recent paraesophageal hernia repair on 08/15 c/b post-operative nausea/vomiting requiring re-admission on POD2 now re-presenting with nausea and hematemesis over the past several days. ?? She was last seen as an outpatient by Dr. Cárdenas on 08/30 at which time she was feeling well and herdiet was advanced. She now reports that over the past one month she has had regurgitation of food approximately 30 minutes following meals. She endorses weight loss since this time. In the last few days she developed coffee ground emesis for which she presented to the ED. Hospital Course: Linda Fuller was admitted to [facility] on 10/23/2021via the ED. She was scoped by GI the next morning for reported hematemesis. She tolerated the procedure well. GI did not find any abnormalities on their exam including no strictures and no sites of bleeding. The only thing they saw was a duodenal diverticulum with some food in it but no bleeding. After a brief period of time she was transferred to the floor. On hospital day two she had a swallow study which also appeared normal. Speech was consulted and cleared her for a regular diet from theirperspective however it is recommended she go home on a puree diet and soft solids as she tolerates them. By hospital day 2 she had met all criteria for discharge to home with plan to refer to outpatient GI. She was tolerating pudding and had had a bowel movement. Vital signs: Vital Signs Temp: 36.7 ??C (98.1 ??F) Temp src: Oral Heart Rate from SpO2: 91 bpm Heart Rate: 90 Heart Rate Source: SaO2 Resp: 18 BP: (!) 173/116 MAP (NBP): 135 mmHg BP Method: Automatic Patient Position: Lying SpO2: 98 % O2 Device: None (Room air) Admission Wt: 58.97 kg Last Wt: Wt Readings from Last 3 Encounters: 10/25/21 57.1 kg (125 lb 14.4 oz) 08/30/21 60.2 kg (132 lb 12.8 oz) 08/18/21 61.7 kg (136 lb) Pertinent physical exam findings prior to discharge: Gen: NAD, pleasant, sitting upright in bed HEENT: normocephalic, atraumatic, EOMI, sclerae anicteric Neck: supple, trachea midline Card: Regular rate Pulm: non-labored breathing on RA Abd: soft, NT Ext: warm, dry, no edema Neuro: A&Ox3, nonfocal, conversant Important Lab Data: Lab Results Component Value Date WBC 6.4 10/25/2021 HGB 12.9 10/25/2021 HCT 39.7 10/25/2021 MCV 93.2 10/25/2021 Lab Results Component Value Date NA 139 10/25/2021 K 3.3 (L) 10/25/2021 CL 104 10/25/2021 CO2 23 10/25/2021 Lab Results Component Value Date CREATININE 0.68 (L) 10/25/2021 Lab Results Component Value Date BUN 10 10/25/2021 No results found for: PREALBUMIN Recent Labs 10/23/21 1320 PT 16.3* PTT 29 INR 1.4 Studies: EGD: ??- Normal esophagus. ?- Z-line regular, 35 cm from the ?incisors. ?- Normal stomach. ?- Non-bleeding duodenal diverticulum. ?- Normal mucosa was found in the ?entire examined duodenum. ?- No specimens collected. Pending Studies and Lab Data: No current labs Discharge Conditions/Prognosis: Stable Discharge to: Home Discharge Medications: Your Medications Continued medications, unchanged Dose Details acetaminophen 500 mg Tab Commonly known as: Tylenol Take 650 mg by mouth every 6 hours as needed for Pain. 650 mg Refills: 0 albuteroL 90 mcg/actuation Hfaa Inhale 2 puffs into the lungs every 4 hours as needed for Wheezing. Use with spacer 2 puff Refills: 0 amLODIPine 10 mg Tab Commonly known as: Norvasc Take 10 mg by mouth daily. 10 mg Refills: 0 apixaban 5 mg (74 tabs) Dspk Commonly known as: Eliquis DVT-PE Treat 30D Start Take 5 mg by mouth 2 times daily. 5 mg Refills: 0 buPROPion XL 150 mg Tablet Extended Release 24 hr Commonly known as: Wellbutrin XL Take 150 mg by mouth every morning. 150 mg Refills: 0 calcium-vitamin D 500 mg-5 mcg (200 unit) Tab Take 1 tablet by mouth 2 times daily (with meals). 1 tablet Refills: 0 citalopram 20 mg Tab Commonly known as: CeleXA Take 20 mg by mouth daily. 20 mg Refills: 0 denosumab 60 mg/mL Syrg Commonly known as: Prolia Inject 60 mg subcutaneously once. 60 mg Refills: 0 docusate sodium 50 mg/5 mL Liqd Commonly known as: Colace Take 5 mLs by mouth 2 times daily as needed. 50 mg Quantity: 100 mL Refills: 0 doxycycline 100 mg Tab Commonly known as: ADOXA Take 1 tablet by mouth 2 times daily. 100 mg Quantity: 12 tablet Refills: 0 fenofibrate 48 mg Tab Commonly known as: TRICOR Take 48 mg by mouth daily. 48 mg Refills: 0 fluticasone propionate 110 mcg/actuation Hfaa Commonly known as: Flovent HFA Inhale 1 puff into the lungs 2 times daily. 1 puff Refills: 0 ICAPS AREDS ORAL Take by mouth. Refills: 0 levoFLOXacin 500 mg Tab Commonly known as: LEVAQUIN Take 1 tablet by mouth daily. 500 mg Quantity: 10 tablet Refills: 0 metoprolol succinate XL 50 mg Tablet sr Commonly known as: Toprol-XL Take 50 mg by mouth daily. 50 mg Refills: 0 omeprazole 40 mg Cpdr Commonly known as: PriLOSEC Take 40 mg by mouth daily. 40 mg Refills: 0 Updated Allergies/ADRs: Allergies Allergen Reactions ??? Pcn [Penicillins] Other (See Comments) Arms swell up ??? Sulfa (Sulfonamide Antibiotics) Nausea And Vomiting Instructions Given to Patient at Discharge: Patient Instructions Call if you have any questions. During normal business hours, Sunday- Sunday 8:00 a.m.-5:00 p.m., please call to speak to a nurse in the Thoracic Clinic at [phone]. After hours or on weekends orholidays please call: [phone] and ask to speak to the Thoracic Surgeon certified health education specialist. Diet: You should follow a puree to soft solid diet as tolerated. If you are having trouble eating or keeping food down please call our office. Smoking: If you are a smoker, please avoid smoking. If you are a smoker who needs help quitting, please call the thoracic surgery clinic at [phone]. Follow up appointments: You should follow up with GI outpatient to further discuss why you are having difficulty keeping food down and to further workup these possible episodes of hematemesis. A referral has been placed. If you do not hear from GI in the next few days to schedule an appointment please call their clinic. No future appointments. General Instructions Upper GI Endoscopy: What to Expect at Home Your Recovery You will be able to go home after your doctor or nurse checks to make sure you are not having any problems. You may have to stay overnight if you had treatment during the test. You may have a sore throat fora day or two after the test. This care sheet gives you a general idea about what to expect after the test. How can you care for yourself at home? Activity Rest when you feel tired. ?? You can do your normal activities when it feels okay to do so. Diet ?? Follow your doctor's directions for eating. ?? Unless your doctor has told you not to, drink plenty of fluids. This helps to replace the fluidsthat were lost during the prep. ?? Do not drink alcohol. Medicines ?? Your doctor will tell you if and when you can restart your medicines. He or she will also give you instructions about taking any new medicines. ?? If you take blood thinners, such as warfarin (Coumadin), clopidogrel (Plavix), or aspirin, be sure to talk to your doctor. He or she will tell you if and when to start taking those medicines again. Make sure that you understand exactly what your doctor wants you to do. ?? If polyps were removed or a biopsy was done during the test, your doctor may tell you not to take aspirin or other anti-inflammatory medicines for a few days. These include ibuprofen (Advil, Motrin) and naproxen (Aleve). ?? If you have a sore throat the day after the procedure, use an wglk-svo-mxvorvh spray to numb your throat. Sucking on throat lozenges and gargling with warm salt water may also help relieve your symptoms. Other instructions ?? For your safety, do not drive or operate machinery until the medicine wears off and you can think clearly. Your doctor may tell you not to drive or operate machinery until the day after your test. ?? Do not sign legal documents or make major decisions until the medicine wears off and you can think clearly. The anesthesia can make it hard for you to fully understand what you are agreeing to. Additional Information for Sedation Patients For patients who received sedation: ?? You may have received medications before and/or during your procedure which effects your judgement and reaction time. ?? Do not drive, operate machinery, drink alcoholic beverages or make important decisions for 24 hours. ?? Be careful on stairs as you may be unsteady on your feet. ?? You may eat a regular diet as tolerated. ?? Do not smoke if you are alone. ?? IV site: Slight redness or tenderness is normal, you can use a warm compress if you would like. If tenderness and/or redness increase or if foul drainage occurs, please contact your Doctor. Please call [phone] before 8pm Mon-Fri with problems, questions or concerns. If you call after 8pm or on weekends, call the Hospital at [phone] and ask to speak to the Student Services Coordinator certified health education specialist and the projector booth operator will contact that person for you. When should you call for help? Call [phone] anytime you think you may need emergency care. For example, call if: ?? You passed out (lost consciousness). ?? You pass maroon or bloody stools. ?? You have trouble breathing. Call your doctor now or seek immediate medical care if: ?? You have pain that does not get better after you take pain medicine. ?? You are sick to your stomach or cannot drink fluids. ?? You have new or worse belly pain. ?? You have blood in your stools. ?? You have a fever. ?? You cannot pass stools or gas. Watch closely for changes in your health, and be sure to contact your doctor if you have any problems. Where can you learn more? [facility] View your After Visit Summary and more online at [email or web address] If you would like to provide feedback about your hospital experience, please call the Office of Patient and Family Relations at . If you have received this After Visit Summary in error, please immediately return it in person to the department, or notify the [facility] Privacy Office by calling toll free at between the hours of 8AM and 5PM to arrange for our retrieval of the documents at no cost to you. Content Version: 12.2 ?? [id number] [employer]. Care instructions adapted under license by [facility]. If you have questions about a medical condition or this instruction, always ask your healthcare professional. [employer] disclaims any warranty or liability for your use of this information. Learning About Pureeing Foods What are pureed foods? Puree (say Sharon) is a way to change the texture of solid food so that it is smooth with no lumps and has a texture like pudding. You can puree food in a crew truck driver or snack foods mixer operator. Pureed foods are important if you have trouble chewing or swallowing. Changing solid foods so they don't need to be chewed can make them safer and easier for you to swallow. Your doctor may have you talk with a speech-language pathologist. This person can help you learn how to puree food so that it is the right thickness and texture. How do you puree foods? Any food you can blend into a smooth, pudding-like texture with no lumps will work for this way of eating. Chop up larger pieces of food into smaller pieces, and place them in a crew truck driver or snack foods mixer operator. You may need to add liquid such as juice or broth to get the right thickness. Adding food or liquid slowly into the crew truck driver or snack foods mixer operator will help you get to the right texture. If the puree is too thin, add more food. If it is too thick, add more liquid. You can use broth, gravy, juice, milk, or water to thin your food. Your doctor will help you understand what the right consistency is for your needs. Foods that can be pureed include: ?? Cooked pasta, potatoes, and rice. ?? Cooked hot cereals, like oatmeal, grits, or Cream of Wheat. ?? Cooked meats, fish and chicken. ?? Dairy products such as cottage cheese, yogurt, and ice cream. ?? Cooked vegetables such as potatoes and beans. ?? Canned fruits. ?? Ripe bananas and avocados. What type of foods are not recommended? Not all foods will puree well. In general, stay away from foods that are sticky, hard, or have seeds. Foods you should avoid include: ?? Nuts. ?? Seeds. ?? Raw vegetables. ?? Bread that is dry or has a hard crust. ?? Dry cereals. ?? Foods with tough skins or outer shells like peas, grapes, and chicken skin. Where can you learn more? Scan the [employer] code or Visit our health information library at https://www.[employer].net/dh/ You can also view health information on [email or web address], your personal patient account. Log in or sign uptoday. Enter D793 in the search box to learn more about Learning About Pureeing Foods. Current as of: July 06, 2021?Content Version: 13.1 ?? [employer]. Care instructions adapted under license by [facility]. If you have questions about a medical condition or this instruction, always ask your healthcare professional. [employer] disclaims any warranty or liability for your use of this information. Learning About the Diet for Swallowing Problems What are swallowing problems? Difficulty swallowing is also called dysphagia (say hsz-KXB-mso-uh). It is most often a sign of aproblem with your throat or esophagus. This is the tube that moves food and liquids from the back of your mouth to your stomach. Trouble swallowing can occur when the muscles and nerves that move food through the throat and esophagus are not working right. To help you swallow food, your doctor or speech therapist may advise a special dysphagia diet for you. Why is a special diet important? A dysphagia diet can help you handle some problems that can occur when it's hard to swallow food and liquids easily. These problems can include: ?? Malnutrition. This means you aren't getting enough healthy foods to keep your body working well. ?? Dehydration. This means you aren't getting enough liquids to keep your body healthy. ?? Aspiration. This means that food, liquid, or saliva goes down your windpipe (trachea) into your lungs, instead of down your esophagus to your stomach. This can lead to aspiration pneumonia, which is an inflammation of the lungs. What is the dysphagia diet? In the dysphagia diet, you change the foods you eat and the liquids you drink to make it easier to swallow them. You may: ?? Change the texture of the foods you eat. Your doctor or speech therapist may advise you to eat one of these types of foods: ? Ckog-sj-qxid foods. These are foods that are soft or tender. ? Soft and bite-sized foods. These are soft foods that have been cut into small pieces. ? Minced and moist foods. These are very soft, small, and moist lumps of food that need very littlechewing. ? Pureed foods. These are foods that have been blended smooth. The puree must be thick enough to hold its shape on a spoon. These foods don't need to be chewed. ? Liquidized foods. These are foods that have been blended smooth but are not as thick as pureed foods. You can drink them from a cup. ?? Thicken the liquids you drink. Your doctor or speech therapist will tell you what kind of thickener to use and how thick to make the liquids. ? Slightly thick liquids. These are thicker than water but can flow through a straw. ? Mildly thick liquids. These can be sipped from a cup but take some effort to drink with a straw. ? Moderately thick liquids. These liquids are thick enough to drink from a cup or from a spoon. Butthey are hard to drink through a wide straw. ? Extremely thick liquids. These are thick enough to hold their shape on a spoon. They are too thick to drink from a cup or suck through a straw. Your speech therapist will help you learn exercises to train your muscles to work together so you can swallow. You may also need to learn how to position your body or how to put food in your mouth jeovanny able to swallow better. Follow-up care is a pimentel part of your treatment and safety. Be sure to make and go to all appointments, and call your doctor if you are having problems. It's also a good idea to know your test resultsand keep a list of the medicines you take. Where can you learn more? Scan the [employer] code or Visit our [employer] information library at https://www.[employer].net/dh/ You can also view health information on [employer], your personal patient account. Log in or sign uptoday. Enter R741 in the search box to learn more about Learning About the Diet for Swallowing Problems. Current as of: April 28, 2021?Content Version: 13.1 ?? [facility], Inc[employer]. Care instructions adapted under license by [facility]. If you have questions about a medical condition or this instruction, always ask your healthcare professional. [employer] disclaims any warranty or liability for your use of this information. Provider Contact Information: Primary Care Provider: Patricia Garza APRN [phone] Discharge References/Attachments: Discharge References/Attachments None For questions regarding this document or issues relating to this hospitalization on the Thoracic Surgery Service, please contact Dr. Cárdenas's office at . Signed: Jacqueline Paul MD 10/25/2021 CC: PCP: Patricia Garza APRN Referring: Unknown None documented in this encounter Discharge Instructions * Discharge Instructions* Traci Montague PA - 10/25/2021 10:44 AM EST Images from the original note were not included. Upper GI Endoscopy: What to Expect at Home Your Recovery You will be able to go home after your doctor or nurse checks to make sure you are not having any problems. You may have to stay overnight if you had treatment during the test. You may have a sore throat fora day or two after the test. This care sheet gives you a general idea about what to expect after the test. How can you care for yourself at home? Activity Rest when you feel tired. ?? You can do your normal activities when it feels okay to do so. Diet ?? Follow your doctor's directions for eating. ?? Unless your doctor has told you not to, drink plenty of fluids. This helps to replace the fluidsthat were lost during the prep. ?? Do not drink alcohol. Medicines ?? Your doctor will tell you if and when you can restart your medicines. He or she will also give you instructions about taking any new medicines. ?? If you take blood thinners, such as warfarin (Coumadin), clopidogrel (Plavix), or aspirin, be sure to talk to your doctor. He or she will tell you if and when to start taking those medicines again. Make sure that you understand exactly what your doctor wants you to do. ?? If polyps were removed or a biopsy was done during the test, your doctor may tell you not to take aspirin or other anti-inflammatory medicines for a few days. These include ibuprofen (Advil, Motrin) and naproxen (Aleve). ?? If you have a sore throat the day after the procedure, use an jxob-ics-bkqpcoy spray to numb your throat. Sucking on throat lozenges and gargling with warm salt water may also help relieve your symptoms. Other instructions ?? For your safety, do not drive or operate machinery until the medicine wears off and you can think clearly. Your doctor may tell you not to drive or operate machinery until the day after your test. ?? Do not sign legal documents or make major decisions until the medicine wears off and you can think clearly. The anesthesia can make it hard for you to fully understand what you are agreeing to. Additional Information for Sedation Patients For patients who received sedation: ?? You may have received medications before and/or during your procedure which effects your judgement and reaction time. ?? Do not drive, operate machinery, drink alcoholic beverages or make important decisions for 24 hours. ?? Be careful on stairs as you may be unsteady on your feet. ?? You may eat a regular diet as tolerated. ?? Do not smoke if you are alone. ?? IV site: Slight redness or tenderness is normal, you can use a warm compress if you would like. If tenderness and/or redness increase or if foul drainage occurs, please contact your Doctor. Please call [phone] before 8pm Mon-Fri with problems, questions or concerns. If you call after 8pm or on weekends, call the Hospital at [phone] and ask to speak to the Student Services Coordinator certified health education specialist and the projector booth operator will contact that person for you. When should you call for help? Call [phone] anytime you think you may need emergency care. For example, call if: ?? You passed out (lost consciousness). ?? You pass maroon or bloody stools. ?? You have trouble breathing. Call your doctor now or seek immediate medical care if: ?? You have pain that does not get better after you take pain medicine. ?? You are sick to your stomach or cannot drink fluids. ?? You have new or worse belly pain. ?? You have blood in your stools. ?? You have a fever. ?? You cannot pass stools or gas. Watch closely for changes in your health, and be sure to contact your doctor if you have any problems. Where can you learn more? [facility] View your After Visit Summary and more online at [email or web address] If you would like to provide feedback about your hospital experience, please call the Office of Patient and Family Relations at . If you have received this After Visit Summary in error, please immediately return it in person to the department, or notify the [facility] Privacy Office by calling toll free at between the hours of 8AM and 5PM to arrange for our retrieval of the documents at no cost to you. Content Version: 12.2 ?? [id number] [employer]. Care instructions adapted under license by [facility]. If you have questions about a medical condition or this instruction, always ask your healthcare professional. [employer] disclaims any warranty or liability for your use of this information. Learning About Pureeing Foods What are pureed foods? Puree (say Sharon) is a way to change the texture of solid food so that it is smooth with no lumps and has a texture like pudding. You can puree food in a crew truck driver or snack foods mixer operator. Pureed foods are important if you have trouble chewing or swallowing. Changing solid foods so they don't need to be chewed can make them safer and easier for you to swallow. Your doctor may have you talk with a speech-language pathologist. This person can help you learn how to puree food so that it is the right thickness and texture. How do you puree foods? Any food you can blend into a smooth, pudding-like texture with no lumps will work for this way of eating. Chop up larger pieces of food into smaller pieces, and place them in a crew truck driver or snack foods mixer operator. You may need to add liquid such as juice or broth to get the right thickness. Adding food or liquid slowly into the crew truck driver or snack foods mixer operator will help you get to the right texture. If the puree is too thin, add more food. If it is too thick, add more liquid. You can use broth, gravy, juice, milk, or water to thin your food. Your doctor will help you understand what the right consistency is for your needs. Foods that can be pureed include: ?? Cooked pasta, potatoes, and rice. ?? Cooked hot cereals, like oatmeal, grits, or Cream of Wheat. ?? Cooked meats, fish and chicken. ?? Dairy products such as cottage cheese, yogurt, and ice cream. ?? Cooked vegetables such as potatoes and beans. ?? Canned fruits. ?? Ripe bananas and avocados. What type of foods are not recommended? Not all foods will puree well. In general, stay away from foods that are sticky, hard, or have seeds. Foods you should avoid include: ?? Nuts. ?? Seeds. ?? Raw vegetables. ?? Bread that is dry or has a hard crust. ?? Dry cereals. ?? Foods with tough skins or outer shells like peas, grapes, and chicken skin. Where can you learn more? Scan the [employer] or Visit our Ever[employer] information library at https://www.ExecOnline/QingCloud/ You can also view health information on [employer], your personal patient account. Log in or sign uptoday. Enter D793 in the search box to learn more about Learning About Pureeing Foods. Current as of: July 06, 2021?Content Version: 13.1 ?? [employer]. Care instructions adapted under license by [facility]. If you have questions about a medical condition or this instruction, always ask your healthcare professional. [employer] disclaims any warranty or liability for your use of this information. Learning About the Diet for Swallowing Problems What are swallowing problems? Difficulty swallowing is also called dysphagia (say ybz-VWW-ydb-uh). It is most often a sign of aproblem with your throat or esophagus. This is the tube that moves food and liquids from the back of your mouth to your stomach. Trouble swallowing can occur when the muscles and nerves that move food through the throat and esophagus are not working right. To help you swallow food, your doctor or speech therapist may advise a special dysphagia diet for you. Why is a special diet important? A dysphagia diet can help you handle some problems that can occur when it's hard to swallow food and liquids easily. These problems can include: ?? Malnutrition. This means you aren't getting enough healthy foods to keep your body working well. ?? Dehydration. This means you aren't getting enough liquids to keep your body healthy. ?? Aspiration. This means that food, liquid, or saliva goes down your windpipe (trachea) into your lungs, instead of down your esophagus to your stomach. This can lead to aspiration pneumonia, which is an inflammation of the lungs. What is the dysphagia diet? In the dysphagia diet, you change the foods you eat and the liquids you drink to make it easier to swallow them. You may: ?? Change the texture of the foods you eat. Your doctor or speech therapist may advise you to eat one of these types of foods: ? Zgnl-lw-vcwu foods. These are foods that are soft or tender. ? Soft and bite-sized foods. These are soft foods that have been cut into small pieces. ? Minced and moist foods. These are very soft, small, and moist lumps of food that need very littlechewing. ? Pureed foods. These are foods that have been blended smooth. The puree must be thick enough to hold its shape on a spoon. These foods don't need to be chewed. ? Liquidized foods. These are foods that have been blended smooth but are not as thick as pureed foods. You can drink them from a cup. ?? Thicken the liquids you drink. Your doctor or speech therapist will tell you what kind of thickener to use and how thick to make the liquids. ? Slightly thick liquids. These are thicker than water but can flow through a straw. ? Mildly thick liquids. These can be sipped from a cup but take some effort to drink with a straw. ? Moderately thick liquids. These liquids are thick enough to drink from a cup or from a spoon. Butthey are hard to drink through a wide straw. ? Extremely thick liquids. These are thick enough to hold their shape on a spoon. They are too thick to drink from a cup or suck through a straw. Your speech therapist will help you learn exercises to train your muscles to work together so you can swallow. You may also need to learn how to position your body or how to put food in your mouth jeovanny able to swallow better. Follow-up care is a pimentel part of your treatment and safety. Be sure to make and go to all appointments, and call your doctor if you are having problems. It's also a good idea to know your test resultsand keep a list of the medicines you take. Where can you learn more? Scan the [employer] code or Visit our EverTrue information library at https://www.ExecOnline/QingCloud/ You can also view health information on [employer], your personal patient account. Log in or sign uptoday. Enter R741 in the search box to learn more about Learning About the Diet for Swallowing Problems. Current as of: April 28, 2021?Content Version: 13.1 ?? [id number] [employer]. Care instructions adapted under license by [facility]. If you have questions about a medical condition or this instruction, always ask your healthcare professional. [employer] disclaims any warranty or liability for your use of this information. * Patient Instructions* Jacqueline Paul MD - 10/25/2021 10:14 AM EST Call if you have any questions. During normal business hours, Sunday- Sunday 8:00 a.m.-5:00 p.m., please call to speak to a nurse in the Thoracic Clinic at [phone]. After hours or on weekends orholidays please call: [phone] and ask to speak to the Thoracic Surgeon certified health education specialist. Diet: You should follow a puree to soft solid diet as tolerated. If you are having trouble eating or keeping food down please call our office. Smoking: If you are a smoker, please avoid smoking. If you are a smoker who needs help quitting, please call the thoracic surgery clinic at [phone]. Follow up appointments: You should follow up with GI outpatient to further discuss why you are having difficulty keeping food down and to further workup these possible episodes of hematemesis. A referral has been placed. If you do not hear from GI in the next few days to schedule an appointment please call their clinic. No future appointments. documented in this encounter Medications at Time of Discharge Medication Sig Dispensed Refills Start Date End Date docusate sodium (Colace) 50 mg/5 mL Liquid Take 5 mLs by mouth 2 times daily as needed. 100 mL 08/30/2021 levoFLOXacin (LEVAQUIN) 500 mg Tablet Take 1 tablet by mouth daily. 10 tablet 08/22/2021 doxycycline (ADOXA) 100 mg Tablet Take 1 tablet by mouth 2 times daily. 12 tablet 08/19/2021 vit A/vit C/vit E/zinc/copper (ICAPS AREDS ORAL) Take by mouth. acetaminophen (Tylenol) 500 mg Tablet Take 650 mg by mouth every 6 hours as needed for Pain. albuteroL 90 mcg/actuation HFA Aerosol Inhaler Inhale 2 puffs into the lungs every 4 hours as needed for Wheezing. Use with spacer amLODIPine (Norvasc) 10 mg Tablet Take 10 mg by mouth daily. apixaban 5 mg (74 tabs) Tablets, Dose Pack Take 5 mg by mouth 2 times daily. buPROPion XL (Wellbutrin XL) 150 mg Tablet Extended Release 24 hr Take 150 mg by mouth every morning. calcium-vitamin D 500 mg(1,250mg) -200 unit Tablet Take 1 tablet by mouth 2 times daily (with meals). citalopram (CeleXA) 20 mg Tablet Take 20 mg by mouth daily. denosumab (PROLIA) 60 mg/mL Syringe Inject 60 mg subcutaneously once. fenofibrate (TRICOR) 48 mg Tablet Take 48 mg by mouth daily. fluticasone propionate (FLOVENT) 110 mcg/actuation HFA Aerosol Inhaler Inhale 1 puff into the lungs 2 times daily. metoprolol succinate XL (Toprol-XL) 50 mg Tablet Sustained Release 24 hr Take 50 mg by mouth daily. omeprazole (PriLOSEC) 40 mg Capsule, Delayed Release(E.C.) Take 40 mg by mouth daily. documented as of this encounter Progress Notes * Prabha Stephens RN - 10/25/2021 3:31 PM EST Patient completed barium swallow test and evaluation by BONE PROCESS OPERATOR. Patient A&O x4. VSS on RA, with exception of intermittent tachycardia in low 100's. MD aware. Patient being discharged home. Removed PIV's per orders. Reviewed AVS with patient and answered questions. Patient leaving via wheelchair to[facility] where her ride is waiting for her. * Silverio Claire RN - 10/25/2021 1:30 AM EST OUTCOME EVALUATION NOTE: OUTCOME SUMMARY: Pt A/ox4. VSS on RA. No c/o CP or SOB. Pt up SBA. Good uop. BMs overnight. Reports passing gas. MIVF maintained per orders. Pain controlled with scheduled and PRN medications. Call light within reach. Bed alarm in place. Pt ringing appropriately. PLAN MOVING FORWARD: Pain control Mobilize Monitor bowel function D/c planning INDIVIDUALIZED FALL PREVENTION: Patient is currently a Moderate risk to Fall. Patient educated on bed/chair alarm, demonstrates proper use of call harris and verbalizes understanding of fall preventions implemented. Patient-specific fall risk factors per assessment: [current deficits]: Lines/tubes, Pain, Medications, Hospital Environment. Assistance [level of assistance required for transfers and ambulation]: SBA Supervision [direct monitoring required during toileting and ADLs]: Hands on with ADL's Surveillance [continuous indirect monitoring]: Masimo, Purposeful Rounding, Nurse Knowledge Exchange Patient-specific fall prevention interventions for sensory deficits provided, if applicable: CPG GOAL OUTCOME EVALUATION: * Jacqueline Paul MD - 10/24/2021 11:27 AM EST [facility] Department of Thoracic Surgery Progress Note Patient Name: Linda Fuller Patient : 1940 Patient Patient Location: [address] [place] [address] Attending Surgeon: PATRICE CÁRDENAS ID: Linda Fuller is a 81 y.o. female with PMH AF on eliquis, CVA, HTN, HLD, and recent paraesophageal hernia repair on 08/15 c/b post-operative nausea/vomiting requiring re-admission on POD2 nowre-presenting with nausea and hematemesis over the past several days. ?? She was last seen as an outpatient by Dr. Cárdenas on 08/30 at which time she was feeling well and herdiet was advanced. She now reports that over the past one month she has had regurgitation of food approximately 30 minutes following meals. She endorses weight loss since this time. In the last few days she developed coffee ground emesis for which she presented to the ED. Subjective: - NPO, on mIVF - Pt with no further episodes of emesis overnight - No nausea, no pain - UOP adequate 0.64 cc/kg/hr overnight Past Medical History: Diagnosis Date ??? Atrial fibrillation on eliquis ??? CVA (cerebral vascular accident) ??? Depression ??? Hyperlipemia ??? Hypertension Family History Problem Relation Age of Onset ??? Cerebrovascular Accident Mother ??? Cancer Father Past Surgical History: Procedure Laterality Date ??? CHOLECYSTECTOMY ??? JOINT REPLACEMENT Right ??? JOINT REPLACEMENT Left ??? PRO LAPAROSCOPY, SURG, REPAIR PARAESOPHAGEAL HERNIA, W/O IMPLANTATION OF MESH N/A 08/15/2021 ROBOT XI LAPAROSCOPIC PARAESOPHAGEAL HERNIA REPAIR W/FUNDOPLASTY,W/O MESH (WRVU 26.6) performed by Patrice Cárdenas MD at [facility] MAIN OR ??? PRO UPPER GI ENDOSCOPY, DIAGNOSTIC N/A 08/15/2021 EGD, UPPER GI ENDOSCOPY performed by Patrice Cárdenas MD at [facility] MAIN OR Vitals: Temp: [36.5 ??C (97.7 ??F)-36.7 ??C (98.1 ??F)] Heart Rate: [61-64] Resp: [16-22] BP: (118-184)/(45-102) SpO2: [96 %-99 %] Heart Rate from SpO2: [53 bpm-60 bpm] Wt & BMI By Encounter Date ED to Hosp-Admission (Current) from 10/23/[address] [place] [address] Office Visit from 08/30/2021 in Thoracic Surgery at [facility] Weight 58.3 kg (128 lb 9.6 oz) 1 10/24/2021 0100 60.2 kg (132 lb 12.8 oz) 1 08/30/2021 1251 BMI 26.25 1 10/23/2021 1141 27.75 1 08/30/2021 1251 Physical Exam: Gen: NAD, pleasant, sitting in bed HEENT: normocephalic, atraumatic, EOMI, sclerae anicteric Neck: supple, trachea midline Card: Regular rate Pulm: Non-labored breathing on RA Abd: soft, NT, robotic incision sites healing well Ext: warm, dry, no edema Neuro: A&Ox3, nonfocal, conversant I/O: I/O last 3 completed shifts: In: 690 [I.V.:590; IV Piggyback:100] Out: 550 [Urine:550] Labs: Recent Results (from the past 72 hour(s)) EKG 12 Lead Result Value Ref Range Ventricular rate 61 BPM Atrial Rate 61 BPM P-R Interval 210 ms QRS Duration 90 ms Q-T Interval 488 ms QTC Calculated (Bezet) 491 ms Calculated P Othello 96 degrees Calculated R O[place]llo 27 degrees Calculated T Othello 51 degrees INTERPRETATION Sinus rhythm with 1st degree A-V block Prolonged QT Abnormal ECG When compared with ECG of 17-AUG-2021 07:42, Sinus rhythm has replaced Atrial fibrillation Vent. rate has decreased BY 70 BPM Nonspecific T wave abnormality no longer evident in Inferior leads Nonspecific T wave abnormality no longer evident in Lateral leads Comprehensive metabolic panel (non-fasting) Result Value Ref Range Glucose Lvl 141 65 - 199 mg/dL BUN 25 (H) 8 - 18 mg/dL Creatinine 1.10 0.70 - 1.20 mg/dL Sodium 141 135 - 145 mmol/L Potassium 3.3 (L) 3.5 - 5.0 mmol/L Chloride 103 98 - 107 mmol/L CO2 26 22 - 31 mmol/L Anion Gap 12 5 - 15 mmol/L Calcium 9.0 8.5 - 10.5 mg/dL Total Protein 5.9 (L) 6.1 - 8.0 g/dL Albumin 3.9 3.2 - 5.2 g/dL AST 11 0 - 30 unit/L ALT 11 0 - 30 unit/L Alk Phos 59 35 - 105 unit/L Total Bilirubin <0.2 (L) 0.2 - 1.3 mg/dL Estimated GFR 47 (L) >=60 mL/min/1.73 m?? Troponin Result Value Ref Range Troponin-T <0.01 0.00 - 0.00 ng/mL Prothrombin Time Result Value Ref Range PT 16.3 (H) 9.4 - 12.5 sec INR 1.4 APTT Result Value Ref Range PTT 29 25 - 37 sec ABO/Rh Typing Result Value Ref Range ABORh Type A Pos Antibody screen Result Value Ref Range Ab Screen Interp Negative Expires at 2359 on: 10/26/2021 Hemogram Result Value Ref Range WBC 6.8 4.0 - 9.5 x10(3)/mcL RBC 3.80 (L) 4.00 - 5.21 x10(6)/mcL Hemoglobin 12.0 11.7 - 15.5 g/dL Hematocrit 35.6 (L) 35.7 - 45.8 % MCV 93.7 82.6 - 94.4 fL MCH 31.6 27.1 - 32.0 pg MCHC 33.7 31.7 - 35.0 g/dL Platelets 278 145 - 357 x10(3)/mcL RDWSD 46.2 (H) 37.0 - 46.0 fL RDWCV 13.3 11.5 - 14.1 % MPV 9.9 7.6 - 12.9 fL nRBC % Auto 0.0 % nRBC Abs Auto 0.000 0.000 - 0.000 x10(3)/mcL Differential, Automated Result Value Ref Range Neutrophils % 67.6 % Neutr Abs (ANC) 4.62 1.70 - 6.10 x10(3)/mcL Lymphocytes % 18.6 % Lymphocytes Abs 1.3 0.9 - 3.2 x10(3)/mcL Monocytes % 9.7 % Monocyte Abs 0.7 0.3 - 0.9 x10(3)/mcL Eosinophils % 2.6 % Eosinophils Abs 0.2 0.0 - 0.4 x10(3)/mcL Basophils % 0.9 % Basophils Abs 0.1 0.0 - 0.1 x10(3)/mcL Immature Gran % 0.60 % Arina Gran Abs 0.04 0.00 - 0.04 x10(3)/mcL ABORH Recheck Status Result Value Ref Range ABORH Recheck Order Order Placed ABORH Type Recheck Complete Type and Screen Validity Result Value Ref Range T&S only valid at [facility] Hosp COVID-19 PCR Specimen: Nasopharyngeal Swab Symptoms->Surveillance Result Value Ref Range SARS-CoV-2 RNA PCR Not Detected Not Detected SARS-CoV-2 Source GYPSUM CALCINER Swab Hemogram Result Value Ref Range WBC 5.5 4.0 - 9.5 x10(3)/mcL RBC 3.70 (L) 4.00 - 5.21 x10(6)/mcL Hemoglobin 11.6 (L) 11.7 - 15.5 g/dL Hematocrit 35.3 (L) 35.7 - 45.8 % MCV 95.4 (H) 82.6 - 94.4 fL MCH 31.4 27.1 - 32.0 pg MCHC 32.9 31.7 - 35.0 g/dL Platelets 243 145 - 357 x10(3)/mcL RDWSD 46.9 (H) 37.0 - 46.0 fL RDWCV 13.2 11.5 - 14.1 % MPV 9.8 7.6 - 12.9 fL nRBC % Auto 0.0 % nRBC Abs Auto 0.000 0.000 - 0.000 x10(3)/mcL Magnesium Result Value Ref Range Magnesium 0.65 (L) 0.69 - 1.07 mmol/L Phosphorus Result Value Ref Range Phosphorus 2.4 (L) 2.5 - 4.5 mg/dL Basic Metabolic Panel (non-fasting) Result Value Ref Range Glucose Lvl 89 65 - 199 mg/dL BUN 19 (H) 8 - 18 mg/dL Creatinine 0.87 0.70 - 1.20 mg/dL Sodium 141 135 - 145 mmol/L Potassium 3.5 3.5 - 5.0 mmol/L Chloride 108 (H) 98 - 107 mmol/L CO2 23 22 - 31 mmol/L Anion Gap 10 5 - 15 mmol/L Calcium 8.4 (L) 8.5 - 10.5 mg/dL Estimated GFR 62 >=60 mL/min/1.73 m?? Diagnostics: EKG sinus rhythm with first degree A-V block and prolonged QT Micro: n/a Assessment: Linda Fuller is a 81 y.o. female w/ PMH afib on Eliquis, 15 py smoking hx (quit 30 yrs ago), HTN, HLD, and CVA who presents today with 1 mos PO intolerance and regurgitation and 3 episodes of hematemesis over the last three days. She is s/p a robotic paraesophageal hernia repair with Dr. Cárdenas on 08/15/2021 with a post-operative course complicated by poor PO tolerance thought to be due to esophageal inflammation and spasm. Given hematemesis plan for EGD with GI today follow by a barium swallow to evaluate gastric emptying and esophageal motility. - NPO - mIVF - Hold Eliquis - CBC q12 hours - Two large bore IVs - IV PPI BID - Home metoprolol changed to IV dosing Jacqueline Paul MD 10/24/2021 Thoracic Surgery Service Pager [phone] documented in this encounter H&P Notes * Shiraz Khan MD - 10/24/2021 1:04 PM EST Gastroenterology and Hepatology Pre-Procedure History and Physical Exam Procedure: EGD: Indication: Coffee ground emesis, dysphagia, recent paraesophageal hernia repair Patient Active Problem List Diagnosis Code ??? Hypertension I10 ??? Hyperlipemia E78.5 ??? Depression F32.A ??? CVA (cerebral vascular accident) I63.9 ??? Atrial fibrillation I48.91 ??? Adjustment disorder, unspecified F43.20 ??? Anticoagulant long-term use Z79.01 ??? Cough R05.9 ??? LEWIS (dyspnea on exertion) R06.00 ??? Fall W19.XXXA ??? Gastroesophageal reflux disease K21.9 ??? History of CVA (cerebrovascular accident) Z86.73 ??? History of gallstones Z87.19 ??? Hyperglycemia R73.9 ??? Hypokalemia E87.6 ??? Iliotibial band syndrome of right side M76.31 ??? Left shoulder pain M25.512 ? ? Lung nodule < 6cm on CT R91.1 ??? Osteoporosis M81.0 ??? Paraesophageal hernia K44.9 ??? Rib pain on left side R07.81 ??? Status post total right knee replacement Z96.651 ??? Urinary incontinence R32 ??? Vomiting R11.10 ??? Wheeze R06.2 ??? Anxiety and depression F41.9, F32.A ??? Essential hypertension I10 ??? Hematemesis K92.0 EXAM: HEENT: Airway examined, oropharynx clear Mallampati Score: II (soft palate, uvula, fauces visible) LUNGS: Clear to auscultation HEART: Regular rate and rhythm, normal S1, S2 ABDOMEN: Normal bowel sounds, soft, non tender, non distended A/P: Proceed with the planned endoscopic procedure. ASA 3 - Patient with moderate systemic disease with functional limitations Sedation Plan: anesthesia Risks and benefits of the procedure explained to the patient. Consent form signed and included in the patient's chart. Shiraz Khan MD PGY-4, Gastroenterology * Jacqueline Paul MD - 10/23/2021 4:00 PM EST [facility] Department of Thoracic Surgery H&P Patient Name: Linda Fuller Patient : 1940 Patient Patient Location: ED04/ED04 Attending Surgeon: PATRICE CÁRDENAS ID: Linda Fuller is a 81 y.o. female w/ PMH afib on Eliquis, 15 py smoking hx (quit 30 yrs ago), HTN, HLD, and CVA who presents today with 1 mos PO intolerance and regurgitation and 3 episodes of hematemesis over the last few days. She is s/p a robotic paraesophageal hernia repair with Dr. Cárdenas on 08/15/2021. Per Ms. Fuller, she did not tell anyone however for the last month she has not tolerated liquid or solid PO intake. She regurgitates foods 30 minutes after almost every meal and does endorse at least 5 lb weight loss. In the last week pt says she has mostly been spitting up phlegm that looks yellow however for the last few days she states her emesis looks black and tasted metal lic. Her son witnessed an episode of black emesis yesterday. Per her 08/[address] Cárdenas she was discharged from her paraesophageal hernia repair after meeting criteria for d/c on POD1. She then represented on POD2 to the ED with inability to tolerate PO thought to be due to esophageal inflammation and spasm. At her 08/30 clinic visit she was tolerating a FLD and was advanced to a puree diet for two weeks then a soft solid diet for two weeks as tolerated with instructions to call with any questions. Today, pt is HDS, sating well on RA. Hgb stable at 12 (baseline 13-14). She denies, chest pain, abdominal pain, new cough, SOB, changes in bowel habits. Pt states she is intermittently constipated and then has runny bowel movements. She takes colace at home when not having liquid BM. She denies NSAID use, only takes tylenol for pain. Quit smoking over 30 years ago and does not drink. She last ate1 piece of bread and an ensure shake for breakfast around 8 am. She takes Eliquis for afib. Past Medical History: Diagnosis Date ??? Atrial fibrillation on eliquis ??? CVA (cerebral vascular accident) ??? Depression ??? Hyperlipemia ??? Hypertension Family History Problem Relation Age of Onset ??? Cerebrovascular Accident Mother ??? Cancer Father Past Surgical History: Procedure Laterality Date ??? CHOLECYSTECTOMY ??? JOINT REPLACEMENT Right ??? JOINT REPLACEMENT Left ??? PRO LAPAROSCOPY, SURG, REPAIR PARAESOPHAGEAL HERNIA, W/O IMPLANTATION OF MESH N/A 08/15/2021 ROBOT XI LAPAROSCOPIC PARAESOPHAGEAL HERNIA REPAIR W/FUNDOPLASTY,W/O MESH (WRVU 26.6) performed by Patrice Cárdenas MD at [facility] MAIN OR ??? PRO UPPER GI ENDOSCOPY, DIAGNOSTIC N/A 08/15/2021 EGD, UPPER GI ENDOSCOPY performed by Patrice Cárdenas MD at [facility] MAIN OR Vitals: Temp: [36.6 ??C (97.9 ??F)] Heart Rate: [62-64] Resp: [16-18] BP: (150-171)/(45-78) SpO2: [98 %] Heart Rate from SpO2: -- Wt & BMI By Encounter Date ED from 10/23/2021 in Emergency Department [facility] Office Visit from 08/30/2021 in Thoracic Surgery at [facility] Weight 59 kg (130 lb) 1 10/23/2021 1141 60.2 kg (132 lb 12.8 oz) 1 08/30/2021 1251 BMI 26.25 1 10/23/2021 1141 27.75 1 08/30/2021 1251 Physical Exam: Gen: NAD, pleasant, sitting in bed HEENT: normocephalic, atraumatic, EOMI, sclerae anicteric Neck: supple, trachea midline Card: Regular rate Pulm: CTAB, no wheeze/ronchi/rales appreciated, non-labored breathing on RA Abd: soft, NT, robotic incision sites healing well Ext: warm, dry, no edema Neuro: A&Ox3, nonfocal, conversant I/O: No intake/output data recorded. Labs: Recent Results (from the past 72 hour(s)) EKG 12 Lead Result Value Ref Range Ventricular rate 61 BPM Atrial Rate 61 BPM P-R Interval 210 ms QRS Duration 90 ms Q-T Interval 488 ms QTC Calculated (Bezet) 491 ms Calculated P [place] 96 degrees Calculated R [place] 27 degrees Calculated T [place] 51 degrees INTERPRETATION Sinus rhythm with 1st degree A-V block Prolonged QT Abnormal ECG When compared with ECG of 17-AUG-2021 07:42, Sinus rhythm has replaced Atrial fibrillation Vent. rate has decreased BY 70 BPM Nonspecific T wave abnormality no longer evident in Inferior leads Nonspecific T wave abnormality no longer evident in Lateral leads Comprehensive metabolic panel (non-fasting) Result Value Ref Range Glucose Lvl 141 65 - 199 mg/dL BUN 25 (H) 8 - 18 mg/dL Creatinine 1.10 0.70 - 1.20 mg/dL Sodium 141 135 - 145 mmol/L Potassium 3.3 (L) 3.5 - 5.0 mmol/L Chloride 103 98 - 107 mmol/L CO2 26 22 - 31 mmol/L Anion Gap 12 5 - 15 mmol/L Calcium 9.0 8.5 - 10.5 mg/dL Total Protein 5.9 (L) 6.1 - 8.0 g/dL Albumin 3.9 3.2 - 5.2 g/dL AST 11 0 - 30 unit/L ALT 11 0 - 30 unit/L Alk Phos 59 35 - 105 unit/L Total Bilirubin <0.2 (L) 0.2 - 1.3 mg/dL Estimated GFR 47 (L) >=60 mL/min/1.73 m?? Troponin Result Value Ref Range Troponin-T <0.01 0.00 - 0.00 ng/mL Prothrombin Time Result Value Ref Range PT 16.3 (H) 9.4 - 12.5 sec INR 1.4 APTT Result Value Ref Range PTT 29 25 - 37 sec ABO/Rh Typing Result Value Ref Range ABORh Type A Pos Antibody screen Result Value Ref Range Ab Screen Interp Negative Expires at 2359 on: 10/26/2021 Hemogram Result Value Ref Range WBC 6.8 4.0 - 9.5 x10(3)/mcL RBC 3.80 (L) 4.00 - 5.21 x10(6)/mcL Hemoglobin 12.0 11.7 - 15.5 g/dL Hematocrit 35.6 (L) 35.7 - 45.8 % MCV 93.7 82.6 - 94.4 fL MCH 31.6 27.1 - 32.0 pg MCHC 33.7 31.7 - 35.0 g/dL Platelets 278 145 - 357 x10(3)/mcL RDWSD 46.2 (H) 37.0 - 46.0 fL RDWCV 13.3 11.5 - 14.1 % MPV 9.9 7.6 - 12.9 fL nRBC % Auto 0.0 % nRBC Abs Auto 0.000 0.000 - 0.000 x10(3)/mcL Differential, Automated Result Value Ref Range Neutrophils % 67.6 % Neutr Abs (ANC) 4.62 1.70 - 6.10 x10(3)/mcL Lymphocytes % 18.6 % Lymphocytes Abs 1.3 0.9 - 3.2 x10(3)/mcL Monocytes % 9.7 % Monocyte Abs 0.7 0.3 - 0.9 x10(3)/mcL Eosinophils % 2.6 % Eosinophils Abs 0.2 0.0 - 0.4 x10(3)/mcL Basophils % 0.9 % Basophils Abs 0.1 0.0 - 0.1 x10(3)/mcL Immature Gran % 0.60 % Arina Gran Abs 0.04 0.00 - 0.04 x10(3)/mcL ABORH Recheck Status Result Value Ref Range ABORH Recheck Order Order Placed Type and Screen Validity Result Value Ref Range T&S only valid at [facility] Diagnostics: EKG sinus rhythm with first degree A-V block and prolonged QT Micro: n/a Assessment: Linda M Lacourse is a 81 y.o. female w/ PMH afib on Eliquis, 15 py smoking hx (quit 30 yrs ago), HTN, HLD, and CVA who presents today with 1 mos PO intolerance and regurgitation and 3 episodes of hematemesis over the last three days. She is s/p a robotic paraesophageal hernia repair with Dr. Cárdenas on 08/15/2021 with a post-operative course complicated by poor PO tolerance thought to be due to esophageal inflammation and spasm. Given ongoing hematemesis plan to admit as obvs to thoracic surgery. Will consult GI for EGD as there is concern for an esophageal ulcer. Pt will also need barium swallow to evaluate gastric emptyingand esophageal motility. - NPO - mIVF - Hold Eliquis - CBC q12 hours - Two large bore IVs - IV PPI BID Jacqueline Paul MD 10/23/2021 Thoracic Surgery Service Pager [phone] documented in this encounter ED Notes * Sanjay Parks PA - 10/23/2021 5:10 PM EST ED Provider Note HPI: Linda Fuller is a 81 y.o. female with history of atrial fibrillation, on Eliquis, hypertension, hyperlipidemia, and paraesophageal hernia repair on 08/15/2021 who presents to the Emergency Department with coffee-ground emesis. Reports that since her paraesophageal hernia repair in July she has been vomiting almost nightly. She has not mentioned this to anyone until she spoke to her son yesterday and she mentioned that she threw up what appeared to be coffee grounds. She denies any shortness of breath, chest pain, fevers or chills. Review of Systems Pertinent positives and negatives are included in the HPI, otherwise at least ten systems were reviewed and negative. Past Medical and Surgical Histories, Social History, Medications, Allergies were reviewed in the chart. Vitals: ED Triage Vitals [10/23/21 1141] BP: 171/78 Heart Rate: 64 Resp: 16 Temp: 36.6 ??C (97.9 ??F) Temp src: Oral SpO2: 98 % O2 Device: RA O2 Flow Rate (L/min): n/a Physical Exam Constitutional: Appearance: She is well-developed. Comments: Elderly and frail appearing HENT: Head: Normocephalic. Eyes: Pupils: Pupils are equal, round, and reactive to light. Cardiovascular: Rate and Rhythm: Normal rate and regular rhythm. Pulmonary: Effort: Pulmonary effort is normal. Breath sounds: Normal breath sounds. Abdominal: General: Bowel sounds are normal. Palpations: Abdomen is soft. Musculoskeletal: Cervical back: Neck supple. Skin: General: Skin is warm and dry. Neurological: Mental Status: She is alert and oriented to person, place, and time. ED Course: I have reviewed labs and imaging, images and available reports, and they are significant for: Recent Results (from the past 24 hour(s)) Comprehensive metabolic panel (non-fasting) Result Value Ref Range Glucose Lvl 141 65 - 199 mg/dL BUN 25 (H) 8 - 18 mg/dL Creatinine 1.10 0.70 - 1.20 mg/dL Sodium 141 135 - 145 mmol/L Potassium 3.3 (L) 3.5 - 5.0 mmol/L Chloride 103 98 - 107 mmol/L CO2 26 22 - 31 mmol/L Anion Gap 12 5 - 15 mmol/L Calcium 9.0 8.5 - 10.5 mg/dL Total Protein 5.9 (L) 6.1 - 8.0 g/dL Albumin 3.9 3.2 - 5.2 g/dL AST 11 0 - 30 unit/L ALT 11 0 - 30 unit/L Alk Phos 59 35 - 105 unit/L Total Bilirubin <0.2 (L) 0.2 - 1.3 mg/dL Estimated GFR 47 (L) >=60 mL/min/1.73 m?? Troponin Result Value Ref Range Troponin-T <0.01 0.00 - 0.00 ng/mL Prothrombin Time Result Value Ref Range PT 16.3 (H) 9.4 - 12.5 sec INR 1.4 APTT Result Value Ref Range PTT 29 25 - 37 sec ABO/Rh Typing Result Value Ref Range ABORh Type A Pos Antibody screen Result Value Ref Range Ab Screen Interp Negative Expires at 2359 on: 10/26/2021 Hemogram Result Value Ref Range WBC 6.8 4.0 - 9.5 x10(3)/mcL RBC 3.80 (L) 4.00 - 5.21 x10(6)/mcL Hemoglobin 12.0 11.7 - 15.5 g/dL Hematocrit 35.6 (L) 35.7 - 45.8 % MCV 93.7 82.6 - 94.4 fL MCH 31.6 27.1 - 32.0 pg MCHC 33.7 31.7 - 35.0 g/dL Platelets 278 145 - 357 x10(3)/mcL RDWSD 46.2 (H) 37.0 - 46.0 fL RDWCV 13.3 11.5 - 14.1 % MPV 9.9 7.6 - 12.9 fL nRBC % Auto 0.0 % nRBC Abs Auto 0.000 0.000 - 0.000 x10(3)/mcL Differential, Automated Result Value Ref Range Neutrophils % 67.6 % Neutr Abs (ANC) 4.62 1.70 - 6.10 x10(3)/mcL Lymphocytes % 18.6 % Lymphocytes Abs 1.3 0.9 - 3.2 x10(3)/mcL Monocytes % 9.7 % Monocyte Abs 0.7 0.3 - 0.9 x10(3)/mcL Eosinophils % 2.6 % Eosinophils Abs 0.2 0.0 - 0.4 x10(3)/mcL Basophils % 0.9 % Basophils Abs 0.1 0.0 - 0.1 x10(3)/mcL Immature Gran % 0.60 % Arina Gran Abs 0.04 0.00 - 0.04 x10(3)/mcL ABORH Recheck Status Result Value Ref Range ABORH Recheck Order Order Placed ABORH Type Recheck Complete Type and Screen Validity Result Value Ref Range T&S only valid at [facility] COVID-19 PCR Specimen: Nasopharyngeal Swab Symptoms->Surveillance Result Value Ref Range SARS-CoV-2 RNA PCR Not Detected Not Detected SARS-CoV-2 Source GYPSUM CALCINER Swab EKG NSR without overlying ischemia prolonged QT XR Fluoro Barium Swallow (Double Contrast) (Results Pending) Procedures Assessment and Plan: 81 y.o. female with history of atrial fibrillation on Eliquis, hypertension, hyperlipidemia and prior stroke who presents with 1 month of difficulty eating, vomiting, weight loss, and several episodes of hematemesis over the last 3 days she recently underwent paraesophageal hernia repair on 08/15/2021, and comes in today due to concern for possible upper GI bleed. She is hemodynamically stable inthe ED. Her hemoglobin is stable. Her blood pressure is also stable. Thoracic surgery has been consulted who will admit to their service for ongoing evaluation and GI consultation for endoscopy. The visit findings, diagnosis, and care plan were discussed with the patient. Sanjay Parks PA 10/23/211915 documented in this encounter Miscellaneous Notes * Initial Assessments - Shirley Schaefer, BONE PROCESS OPERATOR - 10/25/2021 11:41 AM EST Speech Therapy Bedside Swallow Evaluation Patient Profile: Linda Fuller is a 81 y.o. female w/ PMH afib on Eliquis, 15 py smoking hx (quit 30 yrs ago), HTN, HLD, and CVA admitted on 10/23/2021 for with 1 mos PO intolerance and regurgitation and 3 episodes of hematemesis over the last three days. She is s/p a robotic paraesophageal hernia repair with Dr. Cárdenas on 08/15/2021 with a post-operative course complicated by poor PO tolerance thought to be due to esophageal inflammation and spasm. EGD 10/24/21 Impression: - Normal esophagus. - Z-line regular, 35 cm from the??incisors. - Normal stomach. - Non-bleeding duodenal diverticulum. - Normal mucosa was found in the entire examined duodenum. - No specimens collected. Barium swallow 10/25/21 (results pending, normal per RN report) BONE PROCESS OPERATOR consulted for a bedside swallow evaluation. Prior Level of Swallow Function: Patient reports that post surgery she was doing OK with thin liquids except for coffee which made her throw up. Reports she attempted to progress her diet to soft foods (e.g. poached eggs and toast) but she experienced vomiting after eating. Reports post-prandial vomiting both before and after surgical procedure, seems about the same. Does report some globus sensation and uses water to help get the food down Patient had some difficulty answering questions re: location of globus sensation and regurgitation versus vomiting, stating I really don't know, to tell you the truth. Subjective: Patient very pleasant, hungry- wondering when she can eat. Objective: Pt seen for evaluation today. Pain: Patient denies Respiratory Status: Room air Vision: Did not assess Hearing: WFL Current Diet: NPO diet (Give Meds) Feeding Status: Patient is independent Dependent for Oral Care? No Cognitive-Linguistic Status: alert, oriented to person, place, and time Follows Commands: Follows single step commands Positioning: HOB at 80 degrees Oral / Laryngeal Mechanism Clinical Assessment: ?? Lingual: Tongue protrudes midline. Adequate ROM in all planes. ?? Labial / Buccal: Good labial seal. Equal retraction bilaterally. ?? Velar: Velar elevation is present, symmetrical ?? Sensation: Reported intact by patient ?? Vocal fold function and airway protection: Strong cough. Vocal quality is clear. ?? Speech Intelligibility: Intact at the conversational level. ?? Mucosa: WFL ?? Dentition: Edentulous, does not wear dentures Bolus Presentation(s) ?? Thin liquid via straw ?? Puree ?? Dysphasia soft Oral Preparatory Phase ?? Mastication: Mildly reduced mastication 2/2 missing dentition ?? Oral Transit: Oral transit appears timely ?? Bolus Cohesion: Functional bolus control/cohesion ?? Labial Seal / Loss: Adequate labial seal. Negative anterior loss ?? Oral Stasis: Negative oral stasis Pharyngeal Phase ?? Laryngeal Elevation: Present ?? Vocal quality change: Negative ?? Cough / throat clear: Negative ?? Pt. complaint of food getting stuck: Yes with soft solids, clears independently with liquid wash ?? Fatigue across trials: No ?? Respiratory rate and respiratory swallow pattern: No change Esophageal Phase ?? Appears to be WFL, No overt clinical s/s of esophageal phase dysphagia noted during this evaluation. Education: Patient educated on results and recommendations, and verbalized understanding. Patient status, treatment and swallow recommendations were discussed with nursing, MD Assessment: Patient seen for bedside swallow evaluation. Does not present with overt s/sx of oropharyngeal dysphagia. Demonstrates normal oral manipulation of bolus and no overt s/sx of aspiration. Patient typically eats softer foods at home due to lack of dentition but is able to self-select thesefrom the menu. Defer to MDs for diet order; OK for a regular diet from BONE PROCESS OPERATOR standpoint. Diagnosis: Normal oral manipulation of bolus, functional appearing pharyngeal swallow Recommendations: Diet: OK for a regular diet from oropharyngeal standpoint; defer to MDs for diet order PO medications: crushed in a bite of puree with approval from pharmacist Aspiration precautions: ??? Select softer foods as needed ??? Moisten foods with extra sauce/gravy/broth/condiments ?? Upright position during meals and for at least 30 mins following ?? Small sips and bites while eating ?? Slow rate; swallow between bites ?? Alternate liquids and solids No further BONE PROCESS OPERATOR intervention is warranted while hospitalized. Do not anticipate need from BONE PROCESS OPERATOR services in discharge location. Plan: Therapy Frequency (BONE PROCESS OPERATOR Eval): evaluation only Patient / family are in agreement with treatment plan. Total Minutes (Speech Language Pathology): 20 Thank you for this consult with this patient. Please feel free to page me with any questions or concerns. Shirley Scahefer MS, [facility]-BONE PROCESS OPERATOR Pager: [phone] Speech-Language Pathologist Inpatient Rehabilitation Medicine * Care Management Discharge - Inge Vidal RN - 10/25/2021 9:27 AM EST CARE MANAGEMENT FINAL DISCHARGE NOTE Chart reviewed, care reviewed with primary team and at interdisciplinary rounds. Patient is anticipated to be medically ready for discharge later today. Plan: Swallow today; Speech consult - dc today Needs for Transition of Care: Plan for discharge is: Home w/o Services Transportation: family or friend will provide Functional status prior to admission: Assistive Equipment Home Environment: . . Accessibility Concerns:Per OT note 08/19/2021 - Home Setup: pt lives alone in senior housing apartment complex. 2nd floor apartment with elevator access. Bathroom has a walk-in shower with GB and seat. Standard toilet seat with GB. Daughter is visiting currently but leaving for [place] tomorrow morningFunctional Status: pt is independent with ADLs and most IADLs. She is responsible for all household tasks. She ambulates with a 4WW indoors and cane outdoors. Pt does not drive; uses state provided transportation for appointments and errandsEquipment at home: cane, 4WW, shower seat. Current Functional Ability: Assistive Person and Equipment DME used at home: cane - straight,shower chair (4WW) DME Needed at Discharge: none anticipated Patient is insured through: Primary Insurance: MEDICARE Payor: MEDICARE / Plan: MEDICARE PART A & B / Product Type: *No Product type* / Secondary Insurance: N/A Prescription Coverage: YES Preferred Pharmacy: [id number] - [place], [address] [address] This plan was formulated with input from patient and team. All are in agreement with plan. Pt admitted as OBSVO. R. (Reji) PAULETTE Vidal RN/CM - Cellphone: [phone] Pager: [phone] Covering Service RN/CM * Initial Assessments - Inge Vidal RN - 10/24/2021 12:15 PM EST Office of Care Management Initial Assessment Medical record reviewed. Plan of care and patient status discussed with direct care Registered Nurse and/or Care Team in multidisciplinary rounds. Reason for Hospitalization: I vomitted and it was black. Hematemesis - pending EGD by GI; Barium Swallow; serial CBC q12hr Last COVID test: Lab Results Component Value Date COVID19 Detected (A) 09/04/2020 [id number] Not Detected 10/23/2021 Present on Admission: ??? Hematemesis Hospitalizations Within the Past 30 Days: no previous admission in last 30 days Patient receiving hospital care under Observation status. Admission order reviewed. Primary Insurance on file: MEDICARE Secondary Insurance on file: n/a Primary care provider on file: Patricia Garza APRN [phone] Pharmacy: [id number] - [place], [address] [address] Advance Care Planning: History <no information> -Advanced Directive: Other (Adult children) Current Functional Ability: 1 assist,Assistive Equipment Functional Status Prior to Admission: Assistive Equipment Home Environment: Accessibility Concerns:Per OT note 08/19/2021 - Home Setup: pt lives alone in senior housing apartment complex. 2nd floor apartment with elevator access. Bathroom has a walk-in shower with GB and seat. Standard toilet seat with GB. Daughter is visiting currently but leaving for [place] tomorrow morningFunctional Status: pt is independent with ADLs and most IADLs. She is responsible for all household tasks. She ambulates with a 4WW indoors and cane outdoors. Pt does not drive; uses state provided transportation for appointments and errandsEquipment at home: cane, 4WW, shower seat. Current DME: cane - straight,shower chair (4WW) [address] [facility] [address] Social & Family Supports: Extended Emergency Contact Information Primary Emergency Contact: SANJAY CEBALLOS Address: [address] [place] [address] [place] [address] [facility] Relation: Child Secondary Emergency Contact: Narcisa Palumbo Address: [address] [place] [address] [facility] Mobile Relation: Child Current Care Provided by: self Transportation: no concerns Transportation Anticipated: family or friend will provide Assessment: Patient with no apparent RNCM/SW needs at this time. No housing, transportation, insurance, resources concerns identified at this time. Supports in place to achieve a safe post-hospital transition. No identified barriers to accessing necessary care and/or follow-up after discharge. Plan: Patient to d/c to home without services via car when medically ready. Registered Nurse Residency Program Coordinator / Outside Sales Engineer will continue to follow patient???s progress and remain available if situation changes for coordination of care, psychosocial support and/or discharge planning. RN/CM notes: Pt had used [facility] (referral 07/2021). RN/CM called and patient was discharged from all home care services on 10/05 by meeting goals. Office of Care Management Mayela Vidal RN (Jonas) RN/CM - Cellphone: [phone] Pager: [phone] Covering Service RN/CM * Plan of Care - Maria Elena Gilliam RN - 10/24/2021 6:05 AM EST OUTCOME EVALUATION NOTE: OUTCOME SUMMARY: Linda denied pain. NO nausea or emesis. Passing flatus. Voiding in adequate amounts. Keep NPO as ordered. PLAN MOVING FORWARD: Adequate hydration. Barium Swallow. INDIVIDUALIZED FALL PREVENTION INTERVENTIONS: Patient-specific fall risk factors per assessment: [current deficits]: IV tubing/IV pole. Impulsivity, Unfamiliar environment, Assistance [level of assistance required for transfers and ambulation]: 1 assist with FWW Supervision [direct monitoring required during toileting and ADLs]: hands on Surveillance [continuous indirect monitoring]: Bed alarm, purposeful rounding, call harris within reach Patient-specific fall prevention interventions for sensory deficits provided, if applicable: YES. Light adjusted for tasks/safety CPG GOAL OUTCOME EVALUATION: * Consult Note - Fiona Lomeli MD - 10/23/2021 4:05 PM EST GASTROENTEROLOGY & HEPATOLOGY CONSULTATION Initial Consult Note Requesting Provider: Patrice Cárdenas MD REASON FOR CONSULTATION Coffee ground emesis HISTORY OF PRESENT ILLNESS Linda Fuller is a 81 y.o. woman with PMH AF on eliquis, CVA, HTN, HLD, and recent paraesophageal hernia repair on 08/15 c/b post-operative nausea/vomiting requiring re-admission now re-presenting with nausea and hematemesis over the past several days. She was last seen as an outpatient by Dr. Cárdenas as an outpatient on 08/30 at which time she was feeling well and her diet was advanced. She now reports that over the past one month she has had regurgitation of food approximately 30 minutes following meals. She endorses weight loss since this time. She now has developed coffee ground emesis for which she presents to the ED. On presentation vitals were stable with T 97.9, HR 64, BP 171/78, and SpO2 98% on RA. Labs were notable for WBC 6.8, Hgb 12 (11.2 in 07/2021), INR 1.4, Cr 1.1 (from .66 in 07/2021). Barium swallow was ordered but not yet completed. ROS: 10 systems reviewed and positive for those in HPI, otherwise negative PAST MEDICAL/SURGICAL HISTORY: Past Medical History: Diagnosis Date ??? Atrial fibrillation on eliquis ??? CVA (cerebral vascular accident) ??? Depression ??? Hyperlipemia ??? Hypertension MEDICATIONS ALLERGIES Allergies Allergen Reactions ??? Pcn [Penicillins] Other (See Comments) Arms swell up ??? Sulfa (Sulfonamide Antibiotics) Nausea And Vomiting SOCIAL HISTORY Social History Socioeconomic History ??? Marital status: Spouse name: Not on file ??? Number of children: Not on file ??? Years of education: Not on file ??? Highest education level: Not on file Occupational History ??? Not on file Tobacco Use ??? Smoking status: Former Smoker Packs/day: 1.00 Years: 15.00 Pack years: 15.00 Types: Cigarettes ??? Smokeless tobacco: Never Used ??? Tobacco comment: quit 40 yrs ago Vaping Use ??? Vaping Use: Never used Substance and Sexual Activity ??? Alcohol use: Not Currently ??? Drug use: Not Currently ??? Sexual activity: Not Currently Other Topics Concern ??? Not on file Social History Narrative ??? Not on file Social Determinants of Health Financial Resource Strain: Not on file Food Insecurity: Not on file Transportation Needs: Not on file Physical Activity: Not on file Housing Stability: Not on file FAMILY HISTORY Family History Problem Relation Age of Onset ??? Cerebrovascular Accident Mother ??? Cancer Father Vitals: 10/23/21 1141 10/23/21 1241 10/23/21 1430 BP: 171/78 150/45 BP Location (NBP): Right arm Pulse: 64 62 Resp: 16 18 18 Temp: 36.6 ??C (97.9 ??F) TempSrc: Oral SpO2: 98% 98% Weight: 59 kg (130 lb) Height: 149.9 cm (4' 11) PHYSICAL EXAM GENERAL: No acute distress, alert and oriented HEENT: AT/NC, sclerae anicteric, moist mucous membranes CHEST: Normal work of breathing CARDIAC: RRR, normal S1/S2, no appreciable murmurs ABDOMEN: Soft, non-tender, non-distended EXT: Warm, no edema NEURO: Grossly intact, moves all extremities, no asterixis SKIN: No jaundice LABS: Lab Results Component Value Date Sodium 141 10/23/2021 Potassium 3.3 (L) 10/23/2021 Chloride 103 10/23/2021 CO2 26 10/23/2021 BUN 25 (H) 10/23/2021 Creatinine 1.10 10/23/2021 Glucose Lvl 141 10/23/2021 CBC Lab Results Component Value Date WBC 6.8 10/23/2021 Hemoglobin 12.0 10/23/2021 Hematocrit 35.6 (L) 10/23/2021 Platelets 278 10/23/2021 LFT's Lab Results Component Value Date Alk Phos 59 10/23/2021 AST 11 10/23/2021 Albumin 3.9 10/23/2021 Total Bilirubin <0.2 (L) 10/23/2021 ALT 11 10/23/2021 Total Protein 5.9 (L) 10/23/2021 IMAGING: Reviewed in [facility] ENDOSCOPY: Reviewed in [facility] IMPRESSION: Linda Fuller is a 81 y.o. woman with PMH AF on eliquis, CVA, HTN, HLD, and recent paraesophageal hernia repair on 08/15 c/b post-operative nausea/vomiting requiring re-admission now re-presenting with nausea and hematemesis over the past several days. Differential for coffee ground emesis include ulceration at surgical site, esophagitis/gastirits with irritation from retching, as well as other causes of UGIB including PUD and AVMs. We will plan for upper endoscopy tomorrow to further evaluate source of potential bleeding.Recommend barium swallow be done today, if it is done immediately before endoscopy will obscure the view. RECOMMENDATIONS: - IV PPI BID - two large bore IVs - Active T&S - Monitor Hgb q12h or more frequently based assessment of bleeding. - Transfuse for Hgb <7 if no ongoing signs of bleeding - NPO - EGD tomorrow - Follow up barium swallow Plan to be discussed with Dr. Mehta tomorrow. Recommendations were discussed with primary team. Fiona Lomeli M.D. Fellow in Gastroenterology and Hepatology Pager #[phone] 10/23/2021 Associated attestation - Houston Mehta MD - 10/24/2021 10:37 AM EST Attending attestation: I interviewed and examined the patient with Dr. Khan on rounds today (10/24/2021). I confirm the history and pimentel physical findings outlined in this note. The assessment and plan were formulated in discussion with me at the time of this encounter, and I agree with them as documented. Houston Mehta MD Section of Gastroenterology [facility] documented in this encounter Plan of Treatment Scheduled Referrals Name Type Priority Associated Diagnoses Order Schedule Referral to Gastroenterology Outpatient Referral Routine Hematemesis Regurgitation of food Ordered: 10/25/2021 documented as of this encounter Procedures Procedure Name Priority Date/Time Associated Diagnosis Comments XR FLUORO UPPER GI SERIES STAT 10/25/2021 9:15 AM EST HC VENIPUNCTURE STAT 10/25/2021 5:45 AM EST HC PHOSPHORUS, SERUM STAT 10/25/2021 5:45 AM EST HC MAGNESIUM, SERUM STAT 10/25/2021 5 :45 AM EST BASIC METABOLIC PANEL STAT 10/25/2021 5:45 AM EST HC HEMOGRAM STAT 10/24/2021 7:25 PM EST GREEN TUBE HOLD STAT 10/24/2021 7:25 PM EST Upper GI Endoscopy, Diagnostic (45975) 10/24/2021 1:09 PM EST hematemesis UPPER GI ENDOSCOPY Routine 10/24/2021 11 :55 AM EST HC HEMOGRAM STAT 10/24/2021 4:07 AM EST HC PHOSPHORUS, SERUM STAT 10/24/2021 4:07 AM EST HC MAGNESIUM, SERUM STAT 10/24/2021 4 :07 AM EST BASIC METABOLIC PANEL STAT 10/24/2021 4:07 AM EST RAPID COVID-19 PCR ([facility]) STAT 10/23/2021 3:52 PM EST TYPE AND SCREEN VALIDITY STAT 10/23/2021 1:20 PM EST ABORH RECHECK STATUS STAT 10/23/2021 1:20 PM EST HEMOGRAM STAT 10/23/2021 1:20 PM EST DIFFERENTIAL, AUTOMATED STAT 10/23/20 1:20 PM EST ABO/RH TYPING STAT 10/23/2021 1:20 PM EST HC PARTIAL THROMBOPLASTIN TIME STAT 10/23/2021 1:20 PM EST HC PROTHROMBIN TIME STAT 10/23/2021 1 :20 PM EST HC CBC,PLT & AUTO DIFF STAT 1:20 PM EST ANTIBODY SCREEN STAT 10/23/2021 1:20 PM EST HC ABO-MICROTITER STAT 10/23/2021 1:2 0 PM EST HC TROPONIN T STAT 10/23/2021 1:20 PM EST COMPREHENSIVE METABOLIC PANEL STAT 10/23/2021 1:20 PM EST EKG 12-LEAD STAT 10/23/2021 1:14 PM EST documented in this encounter Results * XR Fluoro Upper GI Series (10/25/2021 9:15 AM EST) Anatomical Region Laterality Modality N/A Radio Fluoroscop y Impressions 10/25/2021 11:55 AM EST 1. ??Severe esophageal dysmotility with contrast retention within the esophagus throughout the examination. 2. ??A 13 mm barium tablet does not pass the gastroesophageal junction into the gastric lumen despite what appears to be an anatomically patent gastroesophageal junction.. I have personally reviewed the image(s) and the resident's interpretation and agree with the findings, Madiha Crawford MD at 10/25/2021 11:55 AM Thank you for letting us participate in the care of this patient. ??If you are a health care provider and have any questions regarding this report, please contact the number below. ??For patients who have questions please contact the health rn care transition that requested your imaging first. ? Narrative 10/25/2021 11:55 AM EST EXAMINATION: XR FLUORO UPPER GI SERIES CLINICAL HISTORY: regurgitation after PO intake s/p paraesophageal hernia repair Please look at gastric emptying and esophageal motility TECHNIQUE: Single contrast UGI was performed. Fluoroscopic spot films were obtained. A 13 mm barium tablet was administered. Limited examination due to patient mobility. 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 Nonobstructive bowel gas pattern with gas and stool projecting over the region of the distal sigmoid and rectum. No acute osseous abnormality. Visualized lung bases are clear. Fluoroscopy: The esophagus is mildly patulous, measuring approximately 3 cm in transverse dimension on initial views postingestion. ??The gastroesophageal junction is positioned at the level of the diaphragm and appears open. Throughout the examination, retained contrast is present within the esophagus secondary to poor primary peristalsis. Primary peristalsis is only minimally effective, with poor secondary stripping wave and multiple tertiary contractions present. The presence of gastroesophageal reflux could not be assessed due to incomplete clearing of the retained contrast within the esophagus, despite semi-upright positioning and subsequent ingestion of water. A 13 mm barium tablet rapidly transits to the level of GE junction where it was was held up at the gastroesophageal junction, despite a appearing anatomically patent. The stomach is decompressed, normal in course with normal folds. The duodenal bulb is normal, as is the course of the duodenum. Procedure Note Madiha Crawford MD - 10/25/2021 EXAMINATION: XR FLUORO UPPER GI SERIES CLINICAL HISTORY: regurgitation after PO intake s/p paraesophageal herniarepair Please look at gastric emptying and esophageal motility TECHNIQUE: Single contrast UGI was performed. Fluoroscopic spot films were obtained.A 13 mm barium tablet was administered. Limited examination due to patient mobility. 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 No acute osseous abnormality. Visualized lung basesare clear. Fluoroscopy: The esophagus is mildly patulous, measuring approximately 3 cm intransverse dimension on initial views postingestion. The gastroesophageal junctionis positioned at the level of the diaphragm and appears open. Throughout the examination, retained contrast is present within theesophagus secondary to poor primary peristalsis. Primary peristalsis is onlyminimally effective, with poor secondary stripping wave and multiple tertiarycontractions present. The presence of gastroesophageal reflux could not be assessed due toincomplete clearing of the retained contrast within the esophagus, despitesemi-upright positioning and subsequent ingestion of water. A 13 mm barium tablet rapidly transits to the level of GE junction whereit was was held up at the gastroesophageal junction, despite a appearinganatomically patent. The stomach is decompressed, normal in course with normal folds. The duodenal bulb is normal, as is the course of the duodenum. IMPRESSION 1. Severe esophageal dysmotility with contrast retention within theesophagus throughout the examination. 2. A 13 mm barium tablet does not pass the gastroesophageal junction intothe gastric lumen despite what appears to be an anatomically patentgastroesophageal junction.. I have personally reviewed the image(s) and the resident's interpretationand agree with the findings, Madiha Crawford MD at 10/25/2021 11:55 AM Thank you for letting us participate in the care of this patient. If youare a health care provider and have any questions regarding this report,please contact the number below. For patients who have questions please contactthe health rn care transition that requested your imaging first. Patrice Cárdenas MD IMG FLUORO ORDERABLE S * (ABNORMAL) Basic Metabolic Panel (non-fasting) (10/25/2021 5:45 AM EST) Glucose 87 65 - 199 mg/dL [facility] Comment:Diabetes: >=200 mg/d L plus symptoms Blood Urea Nitrogen 10 8 - 18 mg/dL [facility] Creatinine 0.68(L) 0.70 - 1.20 mg/dL [facility] Sodium 139 135 - 145 mmol/L [facility] Potassium 3.3(L) 3.5 - 5.0 mmol/L [facility] Comment: Please note: ??Patients with WBC >100,000 may have falsely elevated Potassium levels. ??For accurate Potassium quantification in these patients send serum separator tube (gold top) for subsequent determinations. ??Contact the Clinical Chemistry Laboratory if there are any questions. Chloride 104 98 - 107 mmol/L [facility] Carbon Dioxide 23 22 - 31 mmol/L [facility] Anion Gap 12 5 - 15 mmol/L [facility] Calcium 8.5 8.5 - 10.5 mg/dL [facility] Est Glomerular Filtration Rate 81 >=60 mL/min/1. 73 m?? [facility] Comment: This patient? s estimated glomerular filtration rate (eGFR) is between 81 mL/min/1.73 m2 (patients with less muscle mass) and 94 mL/min/1.73 m2 (patients with more muscle mass) as determined by the CKD-EPI equation. Assessment of eGFR is not appropriate when creatinine concentrations are rapidly changing. For clinical decisions where creatinine clearance will affect therapy, a 24-hour urine creatinine clearance may be advised. Assignment of CKD stage 1 - 5 for patients with an eGFR near the transition point between stages may be based on clinical assessment of muscle mass and symptoms in addition to eGFR. Blood 10/25/2021 5:45 AM EST 10/25/2021 5:59 AM EST Narrative Resulting Agency Comment Spec In Lab Patrice Cárdenas MD CHEMISTRY ORDERABLES Performing Organization Address City/[facility]/ZIP Co de Phone Number [facility] [place] [address] * (ABNORMAL) Phosphorus (10/25/2021 5:45 AM EST) Phosphorus 2.1(L) 2.5 - 4.5 mg/dL [facility] Blood 10/25/2021 5:45 AM EST 10/25/2021 5:59 AM EST Narrative Resulting Agency Comment Spec In Lab Patrice Cárdenas MD CHEMISTRY ORDERABLES Performing Organization Address [facility] Co de Phone Number [facility] [place] [place] [address] * Magnesium (10/25/2021 5:45 AM EST) Magnesium 0.87 0.69 - 1.07 mmol/L [facility] Blood 10/25/2021 5:45 AM EST 10/25/2021 5:59 AM EST Narrative Resulting Agency Comment Spec In Lab Patrice Cárdenas MD CHEMISTRY ORDERABLES Performing Organization Address City/[facility] Co de Phone Number [facility] [place] [address] * Hemogram (10/25/2021 5:45 AM EST) White Blood Cell 6.4 4.0 - 9.5 x10(3)/[facility] Red Blood Cell 4.26 4.00 - 5.21 x10(6)/[facility] Hemoglobin 12.9 11.7 - 15.5 g/dL [facility] Hematocrit 39.7 35.7 - 45.8 % [facility] Mean Cell Volume 93.2 82.6 - 94.[address] [facility] Mean Cell Hemoglobin 30.3 27.1 - 32.[address] [facility] Mean Cell Hemoglobin Concentration 32.5 31.7 - 35.0 g/dL [facility] Platelet 281 145 - 357 x10(3)/[facility] LABORATORY RDW Standard Deviation 44.8 37.0 - 46.0 [facility] LAB[facility]ATORY RDW coefficient of variation 13.1 11.5 - 14.1 % [facility] Mean Platelet Volume 9.8 7.6 - 12.9 [facility] NRBC% auto 0.0 % [facility] NRBC Absolute 0.000 0.000 - 0.000 x10(3)/[facility] Blood 10/25/2021 5:45 AM EST 10/25/2021 5:59 AM EST Narrative Resulting Agency Comment Spec In Lab Patrice Cárdenas MD HEMATOLOGY ORDERABLE S Performing Organization Address City/[facility]/ZIP Co de Phone Number [facility] [place] [address] * Green Tube HOLD (10/24/2021 7:25 PM EST) Pathologist [facility] Green Hold Sample in lab. [facility] Blood Venous Draw / Unknown 10/24/2021 7:25 PM EST 10/24/2021 7:32 PM EST Jacqueline Paul MD CHEMISTRY ORDERABLES [facility] [place] [place] [address] * (ABNORMAL) Hemogram (10/24/2021 7:25 PM EST) Pathologist [facility] White Blood Cell 5.6 4.0 - 9.5 x10(3)/mc L [facility] Red Blood Cell 3.90(L) 4.00 - 5.21 x10(6)/mc L [facility] Hemoglobin 12.3 11.7 - 15.5 g/dL [facility] Hematocrit 36.6 35.7 - 45.8 % [facility] Mean Cell Volume 93.8 82.6 - 94.4 [facility] Mean Cell Hemoglobin 31.5 27.1 - 32.[address] [facility] Mean Cell Hemoglobin Concentration 33.6 31.7 - 35.0 g/dL [facility] Platelet 261 145 - 357 x10(3)/mc L [facility] RDW Standard Deviation 45.0 37.0 - 46.[address] [facility] RDW coefficient of variation 13.2 11.5 - 14.1 % [facility] Mean Platelet Volume 9.8 7.6 - 12.[address] [facility] NRBC% auto 0.0 % [facility] NRBC Absolute 0.000 0.000 - 0.000 x10(3)/[facility] Blood 10/24/2021 7:25 PM EST 10/24/2021 7:31 PM EST Narrative Resulting Agency Comment Spec In Lab Patrice Cárdenas MD HEMATOLOGY ORDERABLE S [facility] [place] [address] * UPPER GI ENDOSCOPY (10/24/2021 11:55 AM EST) UPPER GI ENDOSCOPY [facility] Endoscopy Procedure Date: 10/24/2021 11:55 AM ? Patient Name: Linda Fuller ? Date of : 1940 ? Age: 81 ? Order #: [id number] ? Instrument Name: [id number] ? Procedure: ? Upper GI endoscopy Indications: ? Coffee-ground emesis Patient Profile: ? 81 yo F with coffee-grounds emesis ? presents for EGD. Providers: ? Houston Mehta, Shiraz Khan, ? , Jet Varma Memar Referring : ?Patricia Garza Medicines: ? See the Anesthesia note for ? documentation of the administered ? medications Complications: ? No immediate complications. Procedure: ? Pre-Anesthesia Assessment: ? - Prior to the procedure, a History ? and Physical was performed, and ? patient medications and allergies ? were reviewed. The patient is ? competent. The risks and benefits of ? the procedure and the sedation ? options and risks were discussed with ? the patient. All questions were ? answered and informed consent was ? obtained. Patient identification and ? proposed procedure were verified by ? the physician, the nurse, the ? anesthesiologist, the band leader and ? the it support technician in the procedure room. ? Mental Status Examination: alert and ? oriented. Airway Examination: normal ? oropharyngeal airway and neck ? mobility. Respiratory Examination: ? clear to auscultation. CV ? Examination: normal. Prophylactic ? Antibiotics: The patient does not ? require prophylactic antibiotics. ? Prior Anticoagulants: The patient has ? taken no previous anticoagulant or ? antiplatelet agents. ASA Grade ? Assessment: III - A patient with ? severe systemic disease. After ? reviewing the risks and benefits, the ? patient was deemed in satisfactory ? condition to undergo the procedure. ? The anesthesia plan was to use ? monitored anesthesia care (MAC). ? Immediately prior to administration ? of medications, the patient was ? re-assessed for adequacy to receive ? sedatives. The heart rate, ? respiratory rate, oxygen saturations, ? blood pressure, adequacy of pulmonary ? ventilation, and response to care ? were monitored throughout the ? procedure. The physical status of the ? patient was re-assessed after the ? procedure. ? The procedure, indications, benefits, ? risks and alternatives were explained ? to the patient. Specifically ? discussed were potential ? complications including, but not ? limited to, bleeding, perforation, ? infection, missing a cancer, and ? adverse medication reactions. The ? Endoscope was introduced through the ? mouth, and advanced to the third part ? of duodenum. The patient tolerated ? the procedure well. The upper GI ? endoscopy was accomplished without ? difficulty. The patient tolerated the ? procedure well. ? Findings: ? The examined esophagus was normal. ? The Z-line was regular and was found 35 cm from the ? incisors. ? The entire examined stomach was normal. ? A medium sized non-bleeding diverticulum was found in ? the first portion of the duodenum. Small amount of ? food within the diverticulum. ? Normal mucosa was found in the entire duodenum. ? No hematin, red blood or clot seen on the entire ? upper endoscopy. ? Moderate Sedation: ? Not applicable - See Anesthesia documentation Impression: ?- Normal esophagus. ? - Z-line regular, 35 cm from the ? incisors. ? - Normal stomach. ? - Non-bleeding duodenal diverticulum. ? - Normal mucosa was found in the ? entire examined duodenum. ? - No specimens collected. Recommendation: ?- Return to hospital [facility] for ongoing ? care ? - If continues to have signs or ? symptoms of GI hemorrhage please ? notify GI team. Will consider ? colonoscopy and / or video capsule ? endoscopy ? Procedure Code(s): ?? --- Professional --- ? 50219, Esophagogastroduod enoscopy, ? flexible, transoral; diagnostic, ? including collection of specimen(s) ? by brushing or washing, when ? performed (separate procedure) CPT copyright 2019 [employer]. All rights reserved. The codes documented in this report are preliminary and upon rehab therapy manager review may be revised to meet current compliance requirements. Attending Participation: ? I was present and participated during the entire ? procedure, including non-ipmentel portions. ? _ Houston Mehta, 10/24/2021 1:36:21 PM Number of Addenda: 0 Note Initiated On: 10/24/2021 11:55 AM PROVATION 10/24/2021 11:5 5 AM EST Patricia Garza APRN GENERAL SURGICAL ORD ERABLES PROVATION * (ABNORMAL) Basic Metabolic Panel (non-fasting) (10/24/2021 4:07 AM EST) Glucose 89 65 - 199 mg/dL [facility] Comment:Diabetes: >=200 mg/d L plus symptoms Blood Urea Nitrogen 19(H) 8 - 18 mg/dL [facility] Creatinine 0.87 0.70 - 1.20 mg/dL [facility] Sodium 141 135 - 145 mmol/L [facility] Potassium 3.5 3.5 - 5.0 mmol/L [facility] Comment: Please note: ??Patients with WBC >100,000 may have falsely elevated Potassium levels. ??For accurate Potassium quantification in these patients send serum separator tube (gold top) for subsequent determinations. ??Contact the Clinical Chemistry Laboratory if there are any questions. Chloride 108(H) 98 - 107 mmol/L [facility] Carbon Dioxide 23 22 - 31 mmol/L [facility] Anion Gap 10 5 - 15 mmol/L [facility] Calcium 8.4(L) 8.5 - 10.5 mg/dL [facility] Est Glomerular Filtration Rate 62 >=60 mL/min/1. 73 m?? [facility] Comment: This patient? s estimated glomerular filtration rate (eGFR) is between 62 mL/min/1.73 m2 (patients with less muscle mass) and 72 mL/min/1.73 m2 (patients with more muscle mass) as determined by the CKD-EPI equation. Assessment of eGFR is not appropriate when creatinine concentrations are rapidly changing. For clinical decisions where creatinine clearance will affect therapy, a 24-hour urine creatinine clearance may be advised. Assignment of CKD stage 1 - 5 for patients with an eGFR near the transition point between stages may be based on clinical assessment of muscle mass and symptoms in addition to eGFR. Blood 10/24/2021 4:07 AM EST 10/24/2021 4:13 AM EST Narrative Resulting Agency Comment Spec In Lab Patrice Cárdenas MD CHEMISTRY ORDERABLES Performing Organization Address [facility] Co de Phone Number [facility] [place] [address] * (ABNORMAL) Phosphorus (10/24/2021 4:07 AM EST) Phosphorus 2.4(L) 2.5 - 4.5 mg/dL [facility] Blood 10/24/2021 4:07 AM EST 10/24/2021 4:13 AM EST Narrative Resulting Agency Comment Spec In Lab Patrice Cárdenas MD CHEMISTRY ORDERABLES Performing Organization Address [facility] Co de Phone Number [facility] [place] [address] * (ABNORMAL) Magnesium (10/24/2021 4:07 AM EST) Magnesium 0.65(L) 0.69 - 1.07 mmol/L [facility] Blood 10/24/2021 4:07 AM EST 10/24/2021 4:13 AM EST Narrative Resulting Agency Comment Spec In Lab Patrice Cárdenas MD CHEMISTRY ORDERABLES Performing Organization Address [facility] Co de Phone Number [facility] [place] [address] * (ABNORMAL) Hemogram (10/24/2021 4:07 AM EST) Pathologist [facility] White Blood Cell 5.5 4.0 - 9.5 x10(3)/mc L [facility] Red Blood Cell 3.70(L) 4.00 - 5.21 x10(6)/mc L [facility] Hemoglobin 11.6(L) 11.7 - 15.5 g/dL [facility] Hematocrit 35.3(L) 35.7 - 45.8 % [facility] Mean Cell Volume 95.4(H) 82.6 - 94.[address] [facility] Mean Cell Hemoglobin 31.4 27.1 - 32.[address] [facility] Mean Cell Hemoglobin Concentration 32.9 31.7 - 35.0 g/dL [facility] Platelet 243 145 - 357 x10(3)/[facility] RDW Standard Deviation 46.9(H) 37.0 - 46.0 [facility] RDW coefficient of variation 13.2 11.5 - 14.1 % [facility] Mean Platelet Volume 9.8 7.6 - 12.[address] [facility] NRBC% auto 0.0 % [facility] NRBC Absolute 0.000 0.000 - 0.000 x10(3)/[facility] Blood 10/24/2021 4:07 AM EST 10/24/2021 4:13 AM EST Narrative Resulting Agency Comment Spec In Lab Patrice Cárdenas MD HEMATOLOGY ORDERABLE S [facility] [place] [address] * COVID-19 PCR (10/23/2021 3:52 PM EST) [facility] SARS-CoV-2 RNA (Rapid) Not Detected Not Detected [facility] Comment: This result should be interpreted in combination with the clinical observations, patient history and epidemiological information. For testing of asymptomatic individuals, assay performance characteristics and clinical utility have not been evaluated. Testing for SARS-CoV-2 (Severe acute respiratory syndrome coronavirus 2, formerly known as 2019 novel coronavirus or 2019-nCoV) to aid in the diagnosis of COVID-19 is performed using the Simplexa COVID-19 Direct Assay by [employer] as authorized by the FDA issued Emergency Use Authorization (EUA). This assay is intended for In-vitro Diagnostic (IVD) use with nasopharyngeal swabs collected from individuals meeting the CDC criteria for testing. The assay is performed based on the instructions for use and additional guidance provided by the FDA. Testing is performed in the Microbiology Laboratory within the Department of Pathology and Laboratory Medicine at [facility], certified under the Clinical Laboratory Improvement Amendments of 1988 (CLIA), 42 U.S.C. section 263a, to perform high complexity tests. Assay performance has been verified according to clinical laboratory regulatory requirements. Test results are provided above. A result of Not Detected indicates that the viral RNA target is not present but does not preclude SARS-CoV-2 infection. False negative results may occur if a specimen is improperly collected, transported or handled; if amplification inhibitors are present; or if inadequate numbers of viral particles are present in the specimen. A result of Detected suggests a current or recent infection and the patient is presumed to be infected. Positive and negative predictive values for this test are highly dependent on disease prevalence. A result of Invalid indicates the inability to conclusively determine the presence or absence of SARS-CoV-2 RNA in the sample which can be due to a variety of factors. Recollection is recommended in the case of an invalid result. CDC COVID-19 criteria for testing on human specimens and clinical management guidance information are available at the CDC Coronavirus Disease 2019 (COVID-19) webpage under Information for Healthcare Professionals (https://www.cdc.gov/coronavirus/2019-ncov/hcp/index.html). Additional information about this and other EUA tests can be found in provider and patient fact sheets at the following FDA website: https://www.fda.gov/medical-devices/iqnmqqykgyy-foirnsk-0730-gqigh-43-mdnqvesfp- use-a sdnrmmfqbtumc-eknrjtt-rnoswqc/plckt-pijsvgbhxcn-dfbt SARS-CoV-2 Source GYPSUM CALCINER Swab MA RY [facility] Nasopharyngeal Swab 10/23/20 3:52 PM EST 10/23/2021 4:32 PM EST Comment:Symptoms->Surveillan ce Narrative Resulting Agency Comment Spec In Lab Fiona Malave MD MICROBIOLOGY - GENER AL ORDERABLES [facility] [place] [address] * Type and Screen Validity (10/23/2021 1:20 PM EST) Pathologist [facility] T&S only valid at [facility] LABORATORY Comment:This Type and Screen result is only valid at the [facility] Blood 10/23/2021 1:20 PM EST 10/23/2021 1:37 PM EST Narrative Resulting Agency Comment Spec In Lab Sanjay GALVAN BLOOD BANK LAB ORDER VINICIUS Performing Organization Address City/[facility]/ZIP Co de Phone Number [facility] [place] [address] * ABORH Recheck Status (10/23/2021 1:20 PM EST) Pathologist [facility] ABORH Recheck Order Order Placed [facility] ABORH Type Recheck Complete [facility] Blood 10/23/2021 1:20 PM EST 10/23/2021 1:37 PM EST Narrative Resulting Agency Comment Spec In Lab Sanjay Parks PA BLOOD BANK LAB ORDER VINICIUS [facility] [place] [address] * Differential, Automated (10/23/2021 1:20 PM EST) Neutrophil % 67.6 % [facility] Neutrophil Absolute 4.62 1.70 - 6.10 x10(3)/mcL [facility] Lymph % 18.6 % [facility] Lymphocytes Abs 1.3 0.9 - 3.2 x10(3)/[facility] LABORATORY Monocyte % 9.7 % [facility] Monocyte Abs 0.7 0.3 - 0.9 x10(3)/[facility] LABORATORY Eos % 2.6 % [facility] Eosinophils Abs 0.2 0.0 - 0.4 x10(3)/[facility] LABORATORY Basophil % 0.9 % [facility] Baso Absolute 0.1 0.0 - 0.1 x10(3)/[facility] LABORATORY Immature Gran % 0.60 % [facility] Comment: Immature granulocytes(IG's)percentage and absolute count will include metamyelocytes, myelocytes, and promyelocytes. Blood smears from CBCs yielding IG's will be scanned manually for concordance. If this scan disagrees with the automated IG or if promyelocytes are noted, a manual differential will be performed. Immature Gran Absolute 0.04 0.00 - 0.04 x10(3)/[facility] LABORATORY Blood 10/23/2021 1:20 PM EST 10/23/2021 1:37 PM EST Narrative Resulting Agency Comment Spec In Lab Sanjay GALAVN HEMATOLOGY ORDERABLE S [facility] [place] [address] * (ABNORMAL) Hemogram (10/23/2021 1:20 PM EST) White Blood Cell 6.8 4.0 - 9.5 x10(3)/ L [facility] Red Blood Cell 3.80(L) 4.00 - 5.21 x10(6)/ L [facility] Hemoglobin 12.0 11.7 - 15.5 g/dL [facility] Hematocrit 35.6(L) 35.7 - 45.8 % [facility] Mean Cell Volume 93.7 82.6 - 94.[address] [facility] Mean Cell Hemoglobin 31.6 27.1 - 32.[address] [facility] Mean Cell Hemoglobin Concentration 33.7 31.7 - 35.0 g/dL [facility] Platelet 278 145 - 357 x10(3)/mc L [facility] RDW Standard Deviation 46.2(H) 37.0 - 46.[address] [facility] RDW coefficient of variation 13.3 11.5 - 14.1 % [facility] Mean Platelet Volume 9.9 7.6 - 12.[address] [facility] NRBC% auto 0.0 % [facility] NRBC Absolute 0.000 0.000 - 0.000 x10(3)/mc L [facility] Blood 10/23/2021 1:20 PM EST 10/23/2021 1:37 PM EST Narrative Resulting Agency Comment Spec In Lab Sanjay GALVAN HEMATOLOGY ORDERABLE S [facility] [place] [address] * Antibody screen (10/23/2021 1:20 PM EST) Ab Screen Interp Negative [facility] Expires at [id number] on: 10/26/2021 [facility] Blood 10/23/2021 1:20 PM EST 10/23/2021 1:37 PM EST Narrative Resulting Agency Comment Spec In Lab Sanjay GALVAN BLOOD BANK LAB ORDER VINICIUS [facility] [place] [address] * ABO/Rh Typing (10/23/2021 1:20 PM EST) ABORH Type A Pos [facility] Blood 10/23/2021 1:20 PM EST 10/23/2021 1:37 PM EST Narrative Resulting Agency Comment Spec In Lab Sanjay GALVAN BLOOD BANK LAB ORDER VINICIUS Performing Organization Address City/[facility]/ZIP Co de Phone Number [facility] [place] [address] * APTT (10/23/2021 1:20 PM EST) Partial Thromboplastin Time 29 25 - [address] [facility] Comment: The PTT is NOT appropriate for heparin monitoring. Use the Anti-Xa level for heparin monitoring (HEP UFH) or LMWH monitoring (HEP LMW). A PTT less than 37 seconds generally indicates adequate hemostasis. Blood 10/23/2021 1:20 PM EST 10/23/2021 1:37 PM EST Narrative Resulting Agency Comment Spec In Lab Fiona Malave MD HEMATOLOGY ORDERABLE S Performing Organization Address [facility] Co de Phone Number [facility] [place] [place] [address] * (ABNORMAL) Prothrombin Time (10/23/2021 1:20 PM EST) Prothrombin Time 16.3(H) 9.4 - 12.[address] [facility] International Normalization Ratio 1.4 [facility] Comment: An INR <2.0 indicates adequate procoagulant activity for hemostasis in most patients without underlying bleeding disorders, though the INR may not adequately reflect hemostatic capacity in patients with liver disease and synthetic impairment. The recommended target INR range for therapeutic anticoagulation is 2.0 ? 3.0 for most applications, though lower and higher ranges may be appropriate depending on clinical circumstances. Blood 10/23/2021 1:20 PM EST 10/23/2021 1:37 PM EST Narrative Resulting Agency Comment Spec In Lab Fiona Malave MD HEMATOLOGY ORDERABLE S Performing Organization Address City/[facility]/ZIP Co de Phone Number [facility] [place] [address] * Troponin (10/23/2021 1:20 PM EST) Pathologist [facility] Troponin-T <0.01 0.00 - 0.00 ng/mL [facility] Comment: The 99th percentile for Troponin T is less than 0.01 ng/mL, any detectable cTnT concentration using this assay should be considered elevated. According to the third universal definition of myocardial infarction the following criteria with a clinical presentation consistent with acute myocardial ischemia meets the diagnosis for a myocardial infarction (HI). Detection of a rise and/or fall of cTnT, with at least one value greater than the 99th percentile (> or = 0.01) and with at least one of the following ?? Symptoms of ischemia ?? New or presumed new significant QT-yjujpmh-I wave (ST-T) changes or new left bundle branch block (LBBB) ?? Development of pathologic Q waves in the ECG ?? Imaging evidence of new loss of viable myocardium or new regional wall motion abnormality ?? Identification of an intracoronary thrombus by angiography or autopsy Samples for cTnT testing should be obtained serially upon first assessment and again 3 to 6 hours later. If the clinical suspicion is high and previous samples have been negative an additional sample may be indicated. Reference: Third [place] Definition of Myocardial Infarction. Journal of the [place] [employer] 2012;60:1581-98 Blood 10/23/2021 1:20 PM EST 10/23/2021 1:37 PM EST Narrative Resulting Agency Comment Spec In Lab Fiona Malave MD CHEMISTRY ORDERABLES [facility] [place] [address] * (ABNORMAL) Comprehensive metabolic panel (non-fasting) (10/23/2021 1:20 PM EST) [facility] Glucose 141 65 - 199 mg/dL [facility] Comment:Diabetes: >=200 mg/d L plus symptoms Blood Urea Nitrogen 25(H) 8 - 18 mg/dL [facility] Creatinine 1.10 0.70 - 1.20 mg/dL [facility] Sodium 141 135 - 145 mmol/L [facility] Potassium 3.3(L) 3.5 - 5.0 mmol/L [facility] Comment: Please note: ??Patients with WBC >100,000 may have falsely elevated Potassium levels. ??For accurate Potassium quantification in these patients send serum separator tube (gold top) for subsequent determinations. ??Contact the Clinical Chemistry Laboratory if there are any questions. Chloride 103 98 - 107 mmol/L [facility] Carbon Dioxide 26 22 - 31 mmol/L [facility] Anion Gap 12 5 - 15 mmol/L [facility] Calcium 9.0 8.5 - 10.5 mg/dL [facility] Protein, Total 5.9(L) 6.1 - 8.0 g/dL [facility] Albumin 3.9 3.2 - 5.2 g/dL [facility] Aspartate Aminotransferase 11 0 - 30 unit/L [facility] Alanine Aminotransferase 11 0 - 30 unit/L [facility] Alkaline Phosphatase 59 35 - 105 unit/L [facility] Bilirubin, Total <0.2(L) 0.2 - 1.3 mg/dL [facility] Est Glomerular Filtration Rate 47(L) >=60 mL/min/1. 73 m?? [facility] Comment: This patient? s estimated glomerular filtration rate (eGFR) is between 47 mL/min/1.73 m2 (patients with less muscle mass) and 54 mL/min/1.73 m2 (patients with more muscle mass) as determined by the CKD-EPI equation. Assessment of eGFR is not appropriate when creatinine concentrations are rapidly changing. For clinical decisions where creatinine clearance will affect therapy, a 24-hour urine creatinine clearance may be advised. Assignment of CKD stage 1 - 5 for patients with an eGFR near the transition point between stages may be based on clinical assessment of muscle mass and symptoms in addition to eGFR. Blood 10/23/2021 1:20 PM EST 10/23/2021 1:37 PM EST Narrative Resulting Agency Comment Spec In Lab Fiona Malave MD CHEMISTRY ORDERABLES [facility] [place] [address] * EKG 12 Lead (10/23/2021 1:14 PM EST) Ventricular rate 61 BPM MUSE SYSTEM Atrial Rate 61 BPM MUSE SYSTEM P-R Interval 210 ms MUSE SYSTEM QRS Duration 90 ms MUSE SYSTEM Q-T Interval 488 ms MUSE SYSTEM QTC Calculated (Bezet) 491 ms MUSE SYSTEM Calculated P [place] 96 degrees MUSE SYSTEM Calculated R [place] 27 degrees MUSE SYSTEM Calculated T [place] 51 degrees MUSE SYSTEM INTERPRETATION Sinus rhythm with 1st degree A-V block Prolonged QT Abnormal ECG When compared with ECG of 17-AUG-2021 07:42, Sinus rhythm has replaced Atrial fibrillation Vent. rate has decreased BY ??70 BPM Nonspecific T wave abnormality no longer evident in Inferior leads Nonspecific T wave abnormality no longer evident in Lateral leads Confirmed by MD Cook Danette ([id number]) on 10/24/2021 3:32:33 PM MUSE SYSTEM 10/23/2021 1:14 PM EST 10/24/2021 3:32 PM EST Fiona Malave MD ECG ORDERABLES Performing Organization Address [facility] Co de Phone Number MUSE SYSTEM documented in this encounter Visit Diagnoses Diagnosis Hematemesis- Primary Hematemesis History of CVA (cerebrovascular accident) Transient ischemic attack (TIA), and cerebral infarction without residual deficits Regurgitation of food documented in this encounter Admitting Diagnoses Diagnosis Hematemesis documented in this encounter Administered Medications Inactive Administered Medications - up to 3 most recent administrations Medication Order MAR Action Action Date Dose Rate Site apixaban (Eliquis) tablet 5 mg 5 mg, Oral, 2 TIMES DAILY, First dose on Sun10/25/21 at 2000, Until Discontinued, Anticoagulant, Routine, Restricted anticoagulant, choose the most appropriate response: Approved indication of non-valvular atrial fibrillation barium sulfate (E-Z Disk) tablet 0-700 mg 0-700 mg, Oral, ONCE PRN, 1 dose, Starting on Sun10/25/21 at 0916, Until Sun10/25/21 at 0916, Per Protocol, Radiology Contrast, Routine Given 10/25/2021 9:16 AM EST 700 mg barium sulfate (E-Z-HD) 98% oral liquid 0-120 mL 0-120 mL, Oral, ONCE PRN, 1 dose, Starting on Sun10/25/21 at 0916, Until Sun10/25/21 at 0917, Per Protocol, Radiology Contrast, Routine Given 10/25/2021 9:17 AM EST 45 mLs barium sulfate (Ezpaque) 60% (w/v) oral liquid 0-710 mL 0-710 mL, Oral, ONCE PRN, 1 dose, Starting on Sun10/25/21 at 0916, Until Sun10/25/21 at 0918, Per Protocol, Radiology Contrast, Routine Given 10/25/2021 9:18 AM EST 60 mLs buPROPion XL (Wellbutrin XL) tablet 150 mg 150 mg, Oral, EVERY MORNING, First dose on Sun10/24/21 at 0700, Until Discontinued, DO NOT CRUSH OR OPEN, Routine Given 10/24/2021 6:14 AM EST 150 mg heparin (porcine) (5,000 units/1 mL) subcutaneous injection 5,000 Units 5,000 Units, Subcutaneous, EVERY 12 HOURS SCHEDULED (2 times per day), First dose on Sun10/23/21 at 2100, Until Discontinued, Routine Given 10/25/2021 9:35 AM EST 5,000 Units Given 10/24/2021 8:12 PM EST 5,000 Units Given 10/24/2021 8:35 AM EST 5,000 Units lactated ringers infusion 75 mL/hr, Intravenous, CONTINUOUS, Starting on Sun10/23/21 at 1623, Until Sun10/25/21 at 1808 New Bag 10/24/2021 9:00 PM EST 75 mL/hr 75 m L/hr New Bag 10/24/2021 6:53 AM EST 75 mL/hr 75 mL/hr New Bag 10/23/2021 6:41 PM EST 75 mL/hr 75 mL/hr lidocaine (Xylocaine) 1% (10 mg/mL) injection 3 mg 3 mg (0.3 mL), Subcutaneous, ONCE PRN, 1 dose, Starting on Sun10/23/21 at 1644, Until Sun10/25/21 at 1808, for discomfort with PIV insertion, Routine magnesium sulfate 2 g in sterile water 50 mL infusion 2 g, Intravenous, ONCE, 1 dose, On Sun10/24/21 at 0730, Administer over 120 Minutes New Bag 10/24/2021 6:53 AM EST 2 g 25 mL/hr metoprolol (LOPRESSOR) injection 5 mg 5 mg, Intravenous, EVERY 6 HOURS, First dose on Sun10/24/21 at 0930, Until Discontinued Given 10/25/2021 9:36 AM EST 5 mg Given 10/25/2021 3:47 AM EST 5 mg Given 10/24/2021 8:55 PM EST 5 mg metoprolol tartrate (Lopressor) tablet 12.5 mg 12.5 mg, Oral, ONCE, 1 dose, On Sun10/25/21 at 1530, Routine Given 10/25/2021 3:10 PM EST 12.5 mg metoprolol tartrate (Lopressor) tablet 25 mg 25 mg, Oral, EVERY 12 HOURS SCHEDULED (2 times per day), First dose on Sun10/23/21 at 2100, Until Discontinued, Routine Given 10/23/2021 8:20 PM EST 25 mg pantoprazole (Protonix) injection 40 mg 40 mg, Intravenous, 2 TIMES DAILY, First dose (after last modification) on Sun10/23/21 at 1647, Until Discontinued Given 10/25/2021 9:39 AM EST 40 mg Given 10/24/2021 8:12 PM EST 40 mg Given 10/24/2021 8:35 AM EST 40 mg potassium chloride 10 mEq in sterile water 100 mL infusion 10 mEq, Intravenous, ONCE, 1 dose, On Sun10/23/21 at 1618, Administer over 60 Minutes, Warning Vesicant/Irritant Medication New Bag 10/23/2021 6:41 PM EST 10 mEq 100 mL/hr sodium chloride 0.9 % (flush) (BD PosiFlush Normal Saline 0.9) flush 5 mL 5 mL, Intravenous, 2 TIMES DAILY, First dose on Sun10/23/21 at 2100, Until Discontinued, Routine Given 10/25/2021 9:40 AM EST 5 mLs Given 10/24/2021 8:11 PM EST 5 mLs Given 10/24/2021 8:54 AM EST 5 mLs sodium chloride 0.9 % (flush) (BD PosiFlush Normal Saline 0.9) flush 5 mL 5 mL, Intravenous, 2 TIMES DAILY, First dose on Sun10/23/21 at 2100, Until Discontinued, Routine Given 10/25/2021 9:40 AM EST 5 mLs Given 10/24/2021 8:11 PM EST 5 mLs Given 10/24/2021 8:37 AM EST 5 mLs sodium chloride 0.9 % (flush) (BD PosiFlush Normal Saline 0.9) flush 5-20 mL 5-20 mL, Intravenous, EVERY 1 MIN PRN, Starting on Sun10/23/21 at 1644, Until Sun10/25/21 at 1808, flush, Flush pertains to all indwelling lines. Flush per protocol found in the job aid using the link provided on this medication record., Routine documented in this encounter Active and Recently Administered Medications Times are shown in EST. Scheduled Medication Order 10/23/2021 10/24/2021 10/25/2021 apixaban (Eliquis) tablet 5 mg 5 mg, Oral, 2 TIMES DAILY, First dose on Sun10/25/21 at 2000, Until Discontinued, Anticoagulant, Routine, Restricted anticoagulant, choose the most appropriate response: Approved indication of non-valvular atrial fibrillation buPROPion XL (Wellbutrin XL) tablet 150 mg (CANCELED) 150 mg, Oral, EVERY MORNING, First dose on Sun10/24/21 at 0700, Until Discontinued, DO NOT CRUSH OR OPEN, Routine 0614 (Given - Provider: Maria Elena Live RN) heparin (porcine) (5,000 units/1 mL) subcutaneous injection 5,000 Units (CANCELED) 5,000 Units, Subcutaneous, EVERY 12 HOURS SCHEDULED (2 times per day), First dose on Sun10/23/21 at 2100, Until Discontinued, Routine 2019 (Given - Provider: Maria Elena Live RN) 0835 (Given - Provider: Pauline Vickers RN)1230 (DEC Hold - Provider: Admin Adt - Reason: Transfer to a Procedural area)1508 (DEC Unhold - Provider: Admin Adt)2011 (Given - Provider: Silverio Claire RN) 0935 (Given - Provider: Prabha Stephens RN) magnesium sulfate 2 g in sterile water 50 mL infusion (COMPLETED) 2 g, Intravenous, ONCE, 1 dose, On Sun10/24/21 at 0730, Administer over 120 Minutes 0653 (New Bag - Provider: Maria Elena Live RN)0903 (Stopped - Provider: Pauline Vickers RN) metoprolol (LOPRESSOR) injection 5 mg (CANCELED) 5 mg, Intravenous, EVERY 6 HOURS, First dose on Sun10/24/21 at 0930, Until Discontinued 0856 (Given - Provider: Pauline Vickers, PAULETTE)1230 (DEC Hold - Provider: Admin Adt - Reason: Transfer to a Procedural area)1508 (DEC Unhold - Provider: Admin Adt)1532 (Given - Provider: Pauline Vickers, PAULETTE)2055 (Given - Provider: Silverio Claire, PAULETTE) 0347 (Given - Provider: Silverio Claire, PAULETTE)0936 (Given - Provider: Prabha Stephens, PAULETTE) metoprolol tartrate (Lopressor) tablet 12.5 mg (COMPLETED) 12.5 mg, Oral, ONCE, 1 dose, On Sun10/25/21 at 1530, Routine 1510 (Given - Provider: Danelle Alvarado RN) metoprolol tartrate (Lopressor) tablet 25 mg (CANCELED) 25 mg, Oral, EVERY 12 HOURS SCHEDULED (2 times per day), First dose on Sun10/23/21 at 2100, Until Discontinued, Routine 2020 (Given - Provider: Maria Elena Live RN) pantoprazole (Protonix) injection 40 mg 40 mg, Intravenous, 2 TIMES DAILY, First dose (after last modification) on Sun10/23/21 at 1647, Until Discontinued 1840 (Given - Provider: Sandi Rebolledo, PAULETTE) 0835 (Given - Provider: Pauline Vickers, PAULETTE)1230 (DEC Hold - Provider: Admin Adt - Reason: Transfer to a Procedural area)1508 (DEC Unhold - Provider: Admin Adt)2011 (Given - Provider: Silverio Claire, PAULETTE) 0939 (Given - Provider: Prabha Stephens, PAULETTE) potassium chloride 10 mEq in sterile water 100 mL infusion (COMPLETED) 10 mEq, Intravenous, ONCE, 1 dose, On Sun10/23/21 at 1618, Administer over 60 Minutes, Warning Vesicant/Irritant Medication 1841 (New Bag - Provider: Sandi Rebolledo, RN)1941 (Stopped - Provider: Maria Elena Live RN) sodium chloride 0.9 % (flush) (BD PosiFlush Normal Saline 0.9) flush 5 mL 5 mL, Intravenous, 2 TIMES DAILY, First dose on 10/23/21 at 2100, Until Discontinued, Routine 2021 (Not Given - Provider: Maria Elena Live RN - Reason: See comment - Comment: duplicate order) 0854 (Given - Provider: Pauline Vickers RN)1230 (DEC Hold - Provider: Admin Adt - Reason: Transfer to a Procedural area)1508 (DEC Unhold - Provider: Admin Adt)2010 (Given - Provider: Silverio Claire RN) 0940 (Given - Provider: Prabha Stephens, PAULETTE) sodium chloride 0.9 % (flush) (BD PosiFlush Normal Saline 0.9) flush 5 mL 5 mL, Intravenous, 2 TIMES DAILY, First dose on 10/23/21 at 2100, Until Discontinued, Routine 2020 (Given - Provider: Maria Elena Live RN) 0837 (Given - Provider: Pauline Vickers RN)1230 (DEC Hold - Provider: Admin Adt - Reason: Transfer to a Procedural area)1508 (DEC Unhold - Provider: Admin Adt)2010 (Given - Provider: Silverio Claire RN) 0940 (Given - Provider: Prabha Stephens, PAULETTE) Continuous Medication Order 10/23/2021 10/24/2021 10/25/2021 lactated ringers infusion 75 mL/hr, Intravenous, CONTINUOUS, Starting on 10/23/21 at 1623, Until Tu10/25/21 at 1808 1841 (New Bag - Provider: Sandi Rebolledo, PAULETTE) 0653 (New Bag - Provider: Maria Elena Live RN)1230 (DEC Hold - Provider: Admin Adt - Reason: Transfer to a Procedural area)1508 (DEC Unhold - Provider: Admin Adt)2100 (New Bag - Provider: Silverio Claire RN) 1438 (Stopped - Provider: Prabha Stephens RN - Comment: DC orders placed by > REmoved PIV per orders) PRN Medication Order 10/23/2021 10/24/2021 10/25/2021 acetaminophen (Tylenol) tablet 650 mg 650 mg, Oral, EVERY 6 HOURS PRN, Starting on 10/23/21 at 1621, Until Sun10/25/21 at 1808, Pain, Maximum dose of acetaminophen is 4000 mg from all sources in 24 hours. When ordered for pain, acetaminophen should be given even when other ordered pain medications are indicated. , Routine 1230 (DEC Hold - Provider: Admin Adt - Reason: Transfer to a Procedural area)1508 (DEC Unhold - Provider: Admin Adt) barium sulfate (E-Z Disk) tablet 0-700 mg (COMPLETED) 0-700 mg, Oral, ONCE PRN, 1 dose, Starting on Sun10/25/21 at 0916, Until Sun10/25/21 at 0916, Per Protocol, Radiology Contrast, Routine 0916 (Given - Provid er: Mario Francisco - Comment: [id number]:10/2021) barium sulfate (E-Z-HD) 98% oral liquid 0-120 mL (COMPLETED) 0-120 mL, Oral, ONCE PRN, 1 dose, Starting on Sun10/25/21 at 0916, Until Sun10/25/21 at 0917, Per Protocol, Radiology Contrast, Routine 0917 (Given - Provid er: Mario Francisco - Comment: [id number]:08/2024 ) barium sulfate (Ezpaque) 60% (w/v) oral liquid 0-710 mL (COMPLETED) 0-710 mL, Oral, ONCE PRN, 1 dose, Starting on Sun10/25/21 at 0916, Until Sun10/25/21 at 0918, Per Protocol, Radiology Contrast, Routine 0918 (Given - Provid er: Mario Francisco - Comment: [id number]: 12/2022) ipratropium-albuteroL (Duoneb) 0.5 mg-3 mg(2.5 mg base)/3 mL nebulizer solution 3 mL 3 mL, Nebulization, EVERY 4 HOURS PRN, Starting on 10/23/21 at 1621, Until Sun10/25/21 at 1808, Wheezing, Routine 1230 ([facility] [place] Hold - Provider: Admin Adt - Reason: Transfer to a Procedural area)1508 ([facility] [place] Unhold - Provider: Admin Adt) lidocaine (Xylocaine) 1% (10 mg/mL) injection 3 mg 3 mg (0.3 mL), Subcutaneous, ONCE PRN, 1 dose, Starting on 10/23/21 at 1621, Until Tu10/25/21 at 1808, for discomfort with PIV insertion, Routine 1230 ([facility] [place] Hold - Provider: Admin Adt - Reason: Transfer to a Procedural area)1508 ([facility] [place] Unhold - Provider: Admin Adt) lidocaine (Xylocaine) 1% (10 mg/mL) injection 3 mg 3 mg (0.3 mL), Subcutaneous, ONCE PRN, 1 dose, Starting on 10/23/21 at 1644, Until Tu10/25/21 at 1808, for discomfort with PIV insertion, Routine 1230 ([facility] [place] Hold - Provider: Admin Adt - Reason: Transfer to a Procedural area)1508 ([facility] [place] Unhold - Provider: Admin Adt) sodium chloride 0.9 % (flush) (BD PosiFlush Normal Saline 0.9) flush 5-20 mL 5-20 mL, Intravenous, EVERY 1 MIN PRN, Starting on 10/23/21 at 1621, Until Tu10/25/21 at 1808, flush, Flush pertains to all indwelling lines. Flush per protocol found in the job aid using the link provided on this medication record., Routine 1230 ([facility] [place] Hold - Provider: Admin Adt - Reason: Transfer to a Procedural area)1508 ([facility] [place] Unhold - Provider: Admin Adt) sodium chloride 0.9 % (flush) (BD PosiFlush Normal Saline 0.9) flush 5-20 mL 5-20 mL, Intravenous, EVERY 1 MIN PRN, Starting on 10/23/21 at 1644, Until Tu10/25/21 at 1808, flush, Flush pertains to all indwelling lines. 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
--- OUTSIDE RECORDS SUMMARY | 2024-06-03 01:48 | XMS_ITS | Encounter Summary ---
[place] [address] Care Team Providers Care Logistics Research Engineer Name Role Phone Patricia Garza APRN Primary Care Provider Reason for Referral * Diagnostic Test (Routine) - Closed Specialty Diagnoses / Procedures Referred By Contac t Referred To Contact Radiology Diagnoses History of cardioembolic cerebrovascular accident (CVA) Atrial fibrillation, unspecified type Procedures CT Angiogram Coronary Arteries Lizzette Mccarty MD [address] [place] [address] [place] [address] [facility] [place] [address] Referral ID Status Reason Start Date Expiration Date V isits Requested Visits Authorized [id number] Closed Specialty Service Requested 07/26/2021 01/23/2023 1 1 Reason for Visit * Diagnostic Test (Routine) - Closed Specialty Diagnoses / Procedures Referred By Contac t Referred To Contact Radiology Diagnoses History of cardioembolic cerebrovascular accident (CVA) Atrial fibrillation, unspecified type Procedures CT Angiogram Coronary Arteries Lizzette Mccarty MD [address] [place] [address] [place] [address] [facility] [place] [address] Referral ID Status Reason Start Date Expiration Date V isits Requested Visits Authorized [id number] Closed Specialty Service Requested 07/26/2021 01/23/2023 1 1 Encounter Details Date Type Department Care Team (Latest Contact Info) Description 08/05/2021 11:44 AM EDT - 08/05/2021 11:59 PM EDT Hospital [place] [address] Lizzette Mccarty MD [address] [place] [address] [place] [address] History of cardioembolic cerebrovascular accident (CVA); Atrial fibrillation, unspecified type Discharge Disposition: Home Social History Tobacco Use [...] on file documented as of this encounter Medications at Time of Discharge Medication Sig Dispensed Refills Start Date End Date vit A/vit C/vit E/zinc/copper (ICAPS AREDS ORAL) [...] mouth daily. documented as of this encounter Plan of Treatment Not on file documented as of this encounter Procedures Procedure Name Priority Date/Time Associated Diagnosis Comments CT ANGIOGRAM CORONARY ARTERIES Routine 08/05/2021 12:30 PM EDT History of cardioembolic cerebrovascular accident (CVA) Atrial fibrillation, unspecified type documented in this encounter Results * CT Angiogram Coronary Arteries (08/05/2021 12:30 PM EDT) Anatomical Region Laterality Modality Cardiac Computed Tomogra phy 08/05/2021 12:4 6 PM EDT Impressions 08/07/2021 9:50 AM EDT Coronary calcium score of 18, consistent with mild atherosclerotic plaque burden and 18%-ile rank based on age, race/ethnicity, and gender. Single small focus of calcified atherosclerotic plaque in the proximal LAD. Luminal narrowing is less than 50%. CAD RADS 2 (mild, nonobstructive coronary artery disease) Known large paraesophageal hernia is not entirely included on this coronary CT arteriogram. Thank you for letting us participate in the care of this patient. ??If you are a health care provider and have any questions regarding this report, please contact the number below. ??For patients who have questions please contact the health med care manager that requested your imaging first. ? Narrative 08/07/2021 9:50 AM EDT EXAMINATION: CT ANGIOGRAM CORONARY ARTERIES CLINICAL HISTORY: 120; History of cva and afib COMPARISON: Chest CT 01/10/2020 TECHNIQUE: 3 mm thick axial contiguous sections through the heart were obtained via ECG-gated axial mode acquisition without intravenous contrast. After time bolus, 0.625 mm thick axial contiguous sections were obtained through the heart via ECG-gated helical acquisition during intravenous administration of 77.3 cc Visipaque 320. Post-processing was performed on an independent computer workstation including curved multiplanar reformats, coronary calcium scoring, and 3D reconstructions. FINDINGS: Coronary calcium score: Left main: ??Agatston score: 0; Volume score: 0; Mass: 0 mg Left anterior descending: ??Agatston score: 18; Volume score: 18; Mass: 4.1 mg Left circumflex: ??Agatston score: 0; Volume score: 0; Mass: 0 mg Right coronary: ??Agatston score: 0; Volume score: 0; Mass: 0 mg TOTAL: ??Agatston score: 18; Volume score: 18; Mass: 4.1 mg Atherosclerotic plaque burden, based on Agatston score: Mild Percentile rank, based on age, race/ethnicity, and gender: 18%-ile. Reference: Maged RL, Ahumada H, Leatha R, et al. ??Distribution of coronary artery calcium by race, gender, and age: results from the Multi-Ethnic Study of Atherosclerosis (WILSON). Circulation. 2006;113(1):30-37. Coronary arteries: Left main: No demonstrable plaque or stenosis. Left anterior descending: Single small focus of calcified atherosclerotic plaque in the proximal LAD. Luminal narrowing is less than 50%. Diagonal branches: No demonstrable plaque or stenosis. Left Circumflex: No demonstrable plaque or stenosis. Obtuse marginal branches: No demonstrable plaque or stenosis. Right coronary: No demonstrable plaque or stenosis. Posterior descending: No demonstrable plaque or stenosis. Posterolateral branch: No demonstrable plaque or stenosis. Cardiac chambers: Normal size of the heart. No pericardial effusion. Great vessels: Prominent caliber of the main pulmonary artery measures 31 mm. Pulmonary parenchyma, airways, pleura: No significant findings. 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 This is incompletely included in the field of view for this coronary CT arteriogram. Skeletal Structures: No significant findings. Procedure Note Loni Denis MD - 08/07/2021 EXAMINATION: CT ANGIOGRAM CORONARY ARTERIES CLINICAL HISTORY: 120; History of cva and afib COMPARISON: Chest CT 01/10/2020 TECHNIQUE: 3 mm thick axial contiguous sections through the heart wereobtained via ECG-gated axial mode acquisition without intravenous contrast. Aftertime bolus, 0.625 mm thick axial contiguous sections were obtained through theheart via ECG-gated helical acquisition during intravenous administration of77.3 cc Visipaque 320. Post-processing was performed on an independent computer workstation including curved multiplanar reformats, coronary calciumscoring, and 3D reconstructions. FINDINGS: Coronary calcium score: Left main: Agatston score: 0; Volume score: 0; Mass: 0 mg Left anterior descending: Agatston score: 18; Volume score: 18; Mass: 4.1mg Left circumflex: Agatston score: 0; Volume score: 0; Mass: 0 mg Right coronary: Agatston score: 0; Volume score: 0; Mass: 0 mg TOTAL: Agatston score: 18; Volume score: 18; Mass: 4.1 mg Atherosclerotic plaque burden, based on Agatston score: Mild Percentile rank, based on age, race/ethnicity, and gender: 18%-ile. Reference: Maged RL, Brandyn H, Leatha R, et al. ??Distribution ofcoronary artery calcium by race, gender, and age: results from the Multi-EthnicStudy of Atherosclerosis (WILSON). Circulation. 2006;113(1):30-37. Coronary arteries: Left main: No demonstrable plaque or stenosis. Left anterior descending: Single small focus of calcified atheroscleroticplaque in the proximal LAD. Luminal narrowing is less than 50%. Diagonal branches: No demonstrable plaque or stenosis. Left Circumflex: No demonstrable plaque or stenosis. Obtuse marginal branches: No demonstrable plaque or stenosis. Right coronary: No demonstrable plaque or stenosis. Posterior descending: No demonstrable plaque or stenosis. Posterolateral branch: No demonstrable plaque or stenosis. Cardiac chambers: Normal size of the heart. No pericardial effusion. Great vessels: Prominent caliber of the main pulmonary artery measures 31mm. Pulmonary parenchyma, airways, pleura: No significant findings. Upper abdomen: Known large paraesophageal hernia with displacement ofstomach and bowel as well as body and tail of the pancreas into the chest. Thisis incompletely included in the field of view for this coronary CTarteriogram. Skeletal Structures: No significant findings. IMPRESSION Coronary calcium score of 18, consistent with mild atherosclerotic plaqueburden and 18%-ile rank based on age, race/ethnicity, and gender. Single small focus of calcified atherosclerotic plaque in the proximalLAD. Luminal narrowing is less than 50%. CAD RADS 2 (mild, nonobstructive coronary artery disease) Known large paraesophageal hernia is not entirely included on thiscoronary CT arteriogram. Thank you for letting us participate in the care of this patient. If youare a health care provider and have any questions regarding this report,please contact the number below. For patients who have questions please contactthe health med care manager that requested your imaging first. Lizzette Mccarty MD IMG CT ORDERABLES documented in this encounter Visit Diagnoses Diagnosis History of cardioembolic cerebrovascular accident (CVA) Atrial fibrillation, unspecified type documented in this encounter Administered Medications Inactive Administered Medications - up to 3 most recent administrations Medication Order MAR Action Action Date Dose Rate Site iodixanoL (Visipaque) (320 mg/mL) injection solution 0-200 mL 0-200 mL, Intravenous, ONCE PRN, 1 dose, Starting on Sun08/05/21 at 1233, Until Sun08/05/21 at 1233, Per Protocol, Radiology Contrast, Routine Given 08/05/2021 12:33 PM EDT 77 mLs documented in this encounter Care Teams Logistics Research Engineer Relationship Specialty Start Date End Date Patricia Garza APRN [address] [place] [address] PCP - General Internal Medicine 04/02/20 documented as of this encounter
--- OUTSIDE RECORDS SUMMARY | 2024-06-03 01:48 | XMS_ITS | Encounter Summary ---
Author Organization [facility] [place] [address] Care Team Providers Care Cycle Consultant Name Role Phone Patricia Garza APRN Primary Care Provider Reason for Visit * Auth/Cert Specialty Diagnoses / Procedures Referred By Amanuel t Referred To Contact Diagnoses Paraesophageal hernia Atrial fibrillation with rapid ventricular response Postoperative vomiting Referral ID Status Reason Start Date Expiration Date Visits Re quested Visits Authorized [id number] 1 1 Encounter Details Date Type Department Care Team (Latest Contact Info) Description 08/15/2021 6:08 AM EDT - 08/16/2021 6:27 PM EDT Hospital Encounter [address] [place] [address] [address] Cár[address] MD [facility] [place] [address] Hiatal hernia Discharge Disposition: Home with VNA Social History Tobacco Use Types Packs/Day Years [...] Sign Reading Time Taken Comments Blood Pressure 132/84 08/16/2021 12:37 PM EDT Pulse 87 08/16/2021 12:37 PM EDT 28=876 at rest, 106-136 with activity, end post rest 106. Temperature 36.4 ??C (97.5 ??F) 08/16/2021 1 1:53 AM EDT Respiratory Rate 17 08/16/2021 11:5 3 AM EDT Oxygen Saturation 92% 08/16/2021 12: 37 PM EDT 91% with some SOB post activity, end 94%. Inhaled Oxygen Concentration - - Weight 64.3 kg (141 lb 12.1 oz) 08/16/2021 6:00 AM EDT Height 149.9 cm (4' 11) 08/15/2021 6:2 7 AM EDT Body Mass Index 28.63 08/15/2021 6:27 AM EDT documented in this encounter Discharge Summaries * Alicia Dorsey PA - 08/16/2021 12:28 PM EDT Department of Thoracic Surgery - Discharge Summary Patient Name: Linda Fuller Patient Age: 81 y.o. Birthdate: 1940 Admit date: 08/15/2021 Discharge date: 08/16/2021 Attending Physician: Patrice Cárdenas MD Discharge Diagnoses (Hospital Problems) and Secondary Diagnoses (Chronic Problems): Active Hospital Problems Diagnosis ??? Paraesophageal hernia Resolved Hospital Problems No resolved problems to display. Active Non-Hospital Problems Diagnosis ??? Anticoagulant long-term use ??? Cough ??? LEWIS (dyspnea on exertion) ??? Fall ??? Hyperglycemia ??? Hypokalemia ??? Iliotibial band syndrome of right side ??? Left shoulder pain ? ? Lung nodule < 6cm on CT ??? Rib pain on left side ??? [...] knee replacement Operations/Major Procedures: Operations: Case Date: 08/15/2021 Surgeon: Surgeon(s) and Role: * Patrice Cárdenas MD - Primary * Ilan Robb PA - Physician Commercial Plumber Procedure: Procedure(s): ROBOT XI LAPAROSCOPIC PARAESOPHAGEAL HERNIA REPAIR W/FUNDOPLASTY,W/O MESH (WRVU 26.6) MODIFIER ROBOT,SALONIINCI XI EGD, UPPER GI ENDOSCOPY Other Major Procedures: None History of Presentation: Linda Fuller is a 81 y.o. female with a large paraesophageal hernia. She presents today for surgical repair. ?? She last took Eliquis on Sunday 08/12. She completed her bowel prep yesterday. She reports no interval change. There has been no interval medical illness or hospitalizations. She denies f/c/n/v/CP/SOB. She continues to feel like food gets stuck, and she chases it with water with good results. Questions have been addressed. Hospital Course: Linda Fuller was admitted to [facility] on 1via the Same Day Program. She was brought to the operating room on 08/15/[address] Patrice Cárdenas performed surgery as described above. She tolerated the procedure well and was brought to the Post Anesthesia Care Unit for recovery. After a brief period of time she was transferred to the floorfor continued rehabilitation. Her postoperative course was uneventful. She had a swallow study performed on POD#1 which showed no evidence of leak and narrowing of GEJ 2/2 post-op edema. She was advanced to full liquids afterwards which she tolerated well. By postoperative day # 1 she had met all criteria for discharge to home. Pain was controlled on oral medications. She had walked 5 minutes. She was tolerating a regular diet and was passing flatus. Vital signs: Vital Signs Temp: 36.4 ??C (97.5 ??F) Temp src: Axillary Heart Rate from SpO2: (!) 113 bpm Heart Rate: 69 Heart Rate Source: Monitor Resp: 17 BP: (!) 151/113 MAP (NBP): 126 mmHg BP Method: Automatic Patient Position: Lying SpO2: 90 % O2 Flow Rate (L/min): 2 L/min O2 Device: None (Room air) Admission Wt: 61.83 kg Last Wt: Wt Readings from Last 3 Encounters: 08/16/21 64.3 kg (141 lb 12.1 oz) 06/07/21 65.6 kg (144 lb 9.6 oz) 04/26/21 65.9 kg (145 lb 3.2 oz) Pertinent physical exam findings prior to discharge: Gen: NAD, pleasant, sitting up in bed HEENT: sclerae anicteric Neck: supple, trachea midline Card: sinus tach, no M/R/G appreciated Pulm: CTAB, no wheeze/ronchi/rales appreciated, non-labored breathing on RA Abd: soft, NT, BS+ Ext: warm, dry, no edema Neuro: A&Ox3, CN II-XII grossly intact, nonfocal, conversant Important Lab Data: Lab Results Component Value Date WBC 7.8 08/05/2021 HGB 13.4 08/05/2021 HCT 40.3 08/05/2021 MCV 92.4 08/05/2021 Lab Results Component Value Date NA 139 08/05/2021 K 3.7 08/05/2021 CL 104 08/05/2021 CO2 28 08/05/2021 Lab Results Component Value Date CREATININE 1.05 08/05/2021 Lab Results Component Value Date BUN 21 (H) 08/05/2021 No results found for: PREALBUMIN No results for input(s): PT, PTT, INR in the last 168 hours. Studies: Results for orders placed or performed during the hospital encounter of 08/15/21 XR Fluoro Barium Swallow (Double Contrast) (Exam End: 08/16/2021 2:17 PM) Impression 1. No evidence of esophageal leak or recurrent hernia. 2. Marked narrowing of the gastroesophageal junction with prolonged contrast progression, likely due to postoperative edema. I have personally reviewed the image(s) and the resident's interpretation and agree with the findings, Law Galo MD at 08/16/2021 2:59 PM Thank you for letting us participate in the care of this patient. If you are a health care provider and have any questions regarding this report, please contact the number below. For patients who have questions please contact the health home care physical therapist that requested your imaging first. Electronically signed by: Law Galo MD, [facility] ([phone]), at 08/16/2021 2:59 PM Pending Studies and Lab Data: No current [...] 150 mg Refills: 0 calcium-vitamin D 500 mg(1,250mg) -200 unit Tab Take 1 tablet by mouth 2 times daily (with meals). 1 tablet Refills: 0 citalopram 20 mg Tab Commonly known as: CeleXA Take 20 mg by mouth daily. 20 mg Refills: 0 denosumab 60 mg/mL Syrg Commonly known as: Prolia Inject 60 mg subcutaneously once. 60 mg Refills: 0 fenofibrate 48 mg Tab Commonly known as: TRICOR Take 48 mg by mouth daily. 48 mg Refills: 0 fluticasone propionate 110 mcg/actuation Hfaa Commonly known as: Flovent HFA Inhale 1 puff into the lungs 2 times daily. 1 puff Refills: 0 ICAPS AREDS ORAL Take by mouth. Refills: 0 metoprolol succinate XL 50 mg [...] Discharge: Patient Instructions Call if you have a fever of greater than 101 degrees, shaking chills, develop redness or drainage from your incision site(s), or if you have questions. During normal business hours, Sunday- Sunday 8:00 a.m.-5:00 p.m., please call to speak to a nurse in the Thoracic Clinic at [phone]. After hours or on weekends or holidays please call: [phone] and ask to speak to the Thoracic Surgeon restaurant operations manager. Exercise & Activity Level: As you recover from surgery exercise at least 30 minutes a day. Thiscan be broken up into several times a day to achieve this goal at first, but you will be able to work up to doing all 30 minutes at once. Walking, treadmill, stationary bike, elliptical machine or there stationary exercise equipment is appropriate. Take your incentive spirometer home with you. You should use this every hour while awake, 10 times each. This helps you to exercise your respiratory muscles and to breathe deeply. Taking purposeful deep breaths can be just as effective. Do not lift more than 10 pounds for 6-8 weeks (nothing heavier than a gallon of milk) unless otherwise instructed by Thoracic Surgery. Don???t exhaust yourself. Rest between activities as you recoverfrom your procedure. Diet: You should follow a full liquid diet for 1 week, then a puree diet for 1 week, and then startincorporating soft solids on the 3rd week. Please follow the information provided to you by the nutrition team for what specific foods you can eat with each diet. Smoking: If you are a smoker, please avoid smoking. If you are a smoker who needs help quitting, please call the thoracic surgery clinic at [phone]. Driving: No driving for 1 week or while taking narcotic pain medication. New Medications: None 1. Please resume you Eliquis (Apixaban) starting tonight. 2. Continue all other home medications. 3. Any moderate to large tablets need to be crushed and mixed with apple sauce. Shower/Bath: You may shower daily starting 2 days after chest tube removal, no bathing or swimming until your follow-up appointment. Incision care: Wash your incision(s) daily with soap and rinse well, pat dry. Assess for any signs of infection such as increased redness, pain, warmth or drainage. If you had a chest tube, you may remove the dressing over the chest tube site in 2 days after the chest tube was removed and leave it open to the air if it is not draining. Otherwise change the dressing twice a day and as needed. The dressing may remain off once there is no drainage. If you have steri-strips over an incision site, these will remain in place for 7-10 days. You may shower with them, and they will fall off naturally in 7-10 days. If they do not fall off by 10 days, you may remove them. Pain: Pain after surgery is normal. The goal is for you to be able to tolerate pain so you can complete your daily activities. You may notice a burning or numbness on the side of your incision that may include your breast area. This should improve over time but there may be areas that remain numb. You may use a heating pad set on low or medium, over your incision to help relax the muscles in the area and decrease discomfort. Please take your medication as prescribed. If you are not having good pain control, please call and speak to the nurse in the Thoracic Clinic or the Thoracic Surgeon restaurant operations manager after hours. Please take over the counter Tylenol 1000mg every 6 hours as instructed, for baseline pain coverage. DO NOT exceed that maximum dosing as listed on the labels. Sleep: Try to establish normal sleep patterns. Long naps during the day may make it hard for you tosleep at night. Use the pain medication at bedtime for the first week at home if needed. Bowel Movements: After surgery, your bowel movements may not be regular for you, but you should be able to get back to your daily routine quickly. Please make sure to take the stool softeners or mildlaxatives as prescribed to get back to your normal routine. If you do not have a bowel movement formore than 2 days, please call the office. Follow up appointments: You will see Dr. Cárdenas in 2 weeks with a chest Xray within one hour of theappointment. A letter will be mailed to you confirming your appointment information. Future Appointments Date Time Provider Department Center 08/16/2021 1:30 PM [facility] DX ROOM 8 MH Xray [facility] Rad General Instructions None Future Appointments and Orders Future Orders Complete By Expires XR Chest PA & Lateral (Generic) [[id number] Custom] 08/30/2021 08/16/2022 Process Instructions: Scheduling Instructions: Questions: Where will study be performed?: [facility] Radiology Portable exam?: Reason for exam and clinical history: s/p robotic PEHR Clinical information / pimentel questions: recurrence, PTX, effusion, comparison, changes Stat read required?: Date of injury if applicable: Requested Time: Referral to Home Health - at DISCHARGE [PFT8350 CPT(R)] As directed Process Instructions: Scheduling Instructions: Comments: DOCUMENTATION FOR VNA SERVICES (INCLUDING THOSE PATIENTS WITH MEDICARE COVERAGE REQUIRING HOME VNA SERVICES AND/OR HOSPICE SERVICES) PATIENT'S LOCATION: Linda Aceves [address] [place] [id number] (home) Dumpling Machine Operator's Name: self/family In discussion with the attending physician, it is certified that this patient is under their care and that they, or a Nurse Practitioner,Clinical Nurse specialist or Physician Commercial Plumber who is working directly with them, had a face to face encounter that meets the physician face to face encounter requirements with this patient on 08/16/21 The encounter with the patient was in whole, or in part, for the following medical condition, whichis the primary reason for home health care services: abdominal surgery, physical deconditioning In discussion with the provider, it is certified that, based on their findings, the following services are medically necessary for home health services. To provide the following care/treatments with the clinical findings supporting the need for services as follows: HOME CARE ORDERS: RN ORDERS: Assess wound or incision, vital signs, cardiopulmonary status, nutrition, hydration, elimination, meds effectiveness and management; reinforce education re health issues PT ORDERS: Continue rehab for endurance, gait stability and strength with mobility and transfers. Home safety evaluation. Home exercise program if appropriate. OT: assess and continue rehab for managing ADL's. HOME HEALTH CARE AGENCY: [facility]. PHONE: [phone] FAX: [phone] Start of care: within 24 to 48 hours of discharge FOR MEDICARE ONLY: (please delete this section if not Medicare) In discussion with the attending physician, it is certified that the clinical findings support thatthis patient is homebound because absences from home require considerable and taxing effort due to:Abdominal surgery, physical deconditioning, limited diet due to surgery Please note that any additional orders needs or changes will need to be obtained from this patient's PCP: Patricia Garza, MATERIALS HANDLER [address] [facility] [address] All VNA agencies which cover the area of patient's residence have been reviewed, either verbally timothy writing, and patient/family have chosen the home health care agency noted Questions: Agency name and contact information: [facility] Patient location post discharge: home What services are requested: Registered Nurse Physical Therapy Occupational Therapy Start date: Responsible MD post discharge contact info: Surgery and PCP Provider Contact Information: Primary Care Provider: Patricia Garza APRN [phone] Discharge References/Attachments: Discharge References/Attachments None For questions regarding this document or issues relating to this hospitalization on the Thoracic Surgery Service, please contact Dr. Cárdenas's office at . Signed: MANDY Castro 08/16/2021 CC: PCP: Patricia Garza, LAZARA Referring: No referring provider defined for this encounter. documented in this encounter Discharge Instructions * Patient Instructions* Alicia Dorsey PA - 08/16/2021 12:32 PM EDT Call if you have a fever of greater than 101 degrees, shaking chills, develop redness or drainage from your incision site(s), or if you have questions. During normal business hours, Sunday- Sunday 8:00 a.m.-5:00 p.m., please call to speak to a nurse in the Thoracic Clinic at [phone]. After hours or on weekends or holidays please call: [phone] and ask to speak to the Thoracic Surgeon on c all. Exercise & Activity Level: As you recover from surgery exercise at least 30 minutes a day. Thiscan be broken up into several times a day to achieve this goal at first, but you will be able to work up to doing all 30 minutes at once. Walking, treadmill, stationary bike, elliptical machine or there stationary exercise equipment is appropriate. Take your incentive spirometer home with you. You should use this every hour while awake, 10 times each. This helps you to exercise your respiratory muscles and to breathe deeply. Taking purposeful deep breaths can be just as effective. Do not lift more than 10 pounds for 6-8 weeks (nothing heavier than a gallon of milk) unless otherwise instructed by Thoracic Surgery. Don???t exhaust yourself. Rest between activities as you recoverfrom your procedure. Diet: You should follow a full liquid diet for 1 week, then a puree diet for 1 week, and then startincorporating soft solids on the 3rd week. Please follow the information provided to you by the nutrition team for what specific foods you can eat with each diet. Smoking: If you are a smoker, please avoid smoking. If you are a smoker who needs help quitting, please call the thoracic surgery clinic at [phone]. Driving: No driving for 1 week or while taking narcotic pain medication. New Medications: None 1. Please resume you Eliquis (Apixaban) starting tonight. 2. Continue all other home medications. 3. Any moderate to large tablets need to be crushed and mixed with apple sauce. Shower/Bath: You may shower daily starting 2 days after chest tube removal, no bathing or swimming until your follow-up appointment. Incision care: Wash your incision(s) daily with soap and rinse well, pat dry. Assess for any signs of infection such as increased redness, pain, warmth or drainage. If you had a chest tube, you may remove the dressing over the chest tube site in 2 days after the chest tube was removed and leave it open to the air if it is not draining. Otherwise change the dressing twice a day and as needed. The dressing may remain off once there is no drainage. If you have steri-strips over an incision site, these will remain in place for 7-10 days. You may shower with them, and they will fall off naturally in 7-10 days. If they do not fall off by 10 days, you may remove them. Pain: Pain after surgery is normal. The goal is for you to be able to tolerate pain so you can complete your daily activities. You may notice a burning or numbness on the side of your incision that may include your breast area. This should improve over time but there may be areas that remain numb. You may use a heating pad set on low or medium, over your incision to help relax the muscles in the area and decrease discomfort. Please take your medication as prescribed. If you are not having good pain control, please call and speak to the nurse in the Thoracic Clinic or the Thoracic Surgeon restaurant operations manager after hours. Please take over the counter Tylenol 1000mg every 6 hours as instructed, for baseline pain coverage. DO NOT exceed that maximum dosing as listed on the labels. Sleep: Try to establish normal sleep patterns. Long naps during the day may make it hard for you tosleep at night. Use the pain medication at bedtime for the first week at home if needed. Bowel Movements: After surgery, your bowel movements may not be regular for you, but you should be able to get back to your daily routine quickly. Please make sure to take the stool softeners or mildlaxatives as prescribed to get back to your normal routine. If you do not have a bowel movement formore than 2 days, please call the office. Follow up appointments: You will see Dr. Cárdenas in 2 weeks with a chest Xray within one hour of theappointment. A letter will be mailed to you confirming your appointment information. Future Appointments Date Time Provider Department Center 08/16/2021 1:30 PM [facility] DX ROOM 8 Xray [facility] Rad documented in this encounter Medications at Time [...] as of this encounter Progress Notes * Rolan Funez RN - 08/16/2021 6:02 PM EDT Pt IV removed as ordered. Pt tolerating some liquid diet. All pt belongings sent home with pt and daughter. Pt seen seen by patient care technician, see note for details. Discharge instructions reviewed with pt and daughter including signs and symptoms of infection, follow up appt, wound care, activity, and diet. All questions answered at time of discharge. Pt discharged home with VNA. Discharge summary faxed with confirmation. * Inge Vidal RN - 08/16/2021 4:07 PM EDT The patient's dgtr/Narcisa has been provided a list of Home Health Agencies/DME vendors which serve their preferred geographic area. A letter describing our affiliations was reviewed with them and they were educated about their right to choose where referrals are placed. Patient requests referral to: [facility]. PHONE: [phone] FAX: [phone] Expected date of discharge: 08/16/2021 Referral routed to the Field Supervisor for matching with agency/vendor and to provide any required information. Mayela Vidal (Jonas), RN RN/CM - Cellphone: [phone] Pager: [phone] Covering Service RN/CM * Donya Charlton RD - 08/16/2021 12:51 PM EDT Nutrition Services Note - Low Nutrition Acuity Linda Fuller is a 81 y.o. female Reason for intervention: education Nutrition Plan: Provided education and appropriate material for full liquids x 1 week, purees x 1 week, and soft solids x 1 week Pt reports lactose intolerance. Discussed ways to meet protein needs on full liquid diet with inclusion of dairy. I was able to discuss with Thoracic Suergery Active Orders Diet NPO diet (Hold Meds) Frequency: Effective Midnight Number of Occurrences: Until Specified Admit Weight: 61.83 kg Estimated body mass index is 28.63 kg/m?? as calculated from the following: Height as of this encounter: 149.9 cm (4' 11). Weight as of this encounter: 64.3 kg (141 lb 12.1 oz). Wt Readings from Last 5 Encounters: 08/16/21 64.3 kg (141 lb 12.1 oz) 06/07/21 65.6 kg (144 lb 9.6 oz) 04/26/21 65.9 kg (145 lb 3.2 oz) 04/13/20 68.5 kg (151 lb) Weight loss: none Appetite: Good (50%-75%) Food allergies:no known food allergies Chewing/Swallowing difficulty: none - pt edentulous Nausea/Vomiting: no nausea and no vomiting Patient education / questions: provided diet order education and patient with good understanding, written education and contact information provided and all nutrition related questions answered at this time Nutrition services to follow weekly through hospital course unless consulted in the interim. Donya Charlton RD Pager: [phone] * Kwadwo Mosquera, PT - 08/16/2021 12:37 PM EDT Physical Therapy Evaluation Patient profile: Linda Fuller is a 81 y.o. right handed female admitted on 08/15/2021 now under the care of Dr. Cárdenas. Pt presented to same day surgery with history of a large paraesophageal hernia. She underwent 08/15/21 robotic assisted laparoscopic repair of giant paraesophageal hernia and esophagogastroduodenoscopy. She had post op issues with abdominal pain, she is being managed on 4-west. She was NPO today awaiting a swallow study. Patient with the following active problems: Past Medical History: Diagnosis Date ??? Atrial fibrillation on eliquis ??? CVA (cerebral vascular accident) ??? Depression ??? Hyperlipemia ??? Hypertension Active Non-Hospital Problems Diagnosis ??? Anticoagulant long-term use ??? Cough ??? LEWIS (dyspnea on exertion) ??? Fall ??? Hyperglycemia ??? Hypokalemia ??? Iliotibial band syndrome of right side ??? Left shoulder pain ? ? Lung nodule < 6cm on CT ??? Rib pain on left side ??? Urinary incontinence ??? Vomiting ??? Wheeze ??? Hypertension ??? Hyperlipemia ??? Depression ??? CVA (cerebral vascular accident) ??? Atrial fibrillation ??? Anxiety and depression ??? Osteoporosis ??? Adjustment disorder, unspecified ??? Gastroesophageal reflux disease ??? History of gallstones ??? Essential hypertension ??? History of CVA (cerebrovascular accident) ??? Status post total right knee replacement Past Surgical History: Procedure Laterality Date ??? CHOLECYSTECTOMY ??? JOINT REPLACEMENT Right ??? JOINT REPLACEMENT Left ??? PRO LAPAROSCOPY, SURG, REPAIR PARAESOPHAGEAL HERNIA, W/O IMPLANTATION OF MESH N/A 08/15/2021 ROBOT XI LAPAROSCOPIC PARAESOPHAGEAL HERNIA REPAIR W/FUNDOPLASTY,W/O MESH (WRVU 26.6) performed by Patrice Cárdenas MD at [facility] MAIN OR ??? PRO UPPER GI ENDOSCOPY, DIAGNOSTIC N/A 08/15/2021 EGD, UPPER GI ENDOSCOPY performed by Patrice Cárdenas MD at [facility] Social History: Home set-up: lives alone in a senior housing 2nd floor apt with elevator access. Daughter is going to stay a few days with her on d/c. Bathroom Set-up: walk in shower with grab bar and shower chair. Stairs: none, uses elevator. Baseline Mobility: walks with cane. Does not drive, likes to read and make cards; retired from [employer]. Equipment at home: rollator walker, cane, safety pull cords. Sleeps in a regular bed. Fall history: reports she falls occasionally, last fall was ~ 3 months ago in the bathroom on a rug. Precautions/Special Considerations: fall risk. Avoid abdominal strain s/p recent procedure. Lines: IV BUEs. Activity Orders: ambulate Diet: NPO Mobility and Positioning Recommendations: ?? Pt. to utilize rolling walker and supervision to contact guard for ambulation and transfers withnursing. ?? Please encourage up to chair for meal times as able. ?? Pt encouraged to ambulate frequently with staff, getting into the bathroom for toileting and walking out in the jacobo >/= 3 times daily as able. Subjective: ???Not very good,?? regarding how she feels. Objective: Pt seen for evaluation today. Pain: 4/10 abdominal pain. Vital Signs: Heart Rate: 87 (16=803 at rest, 106-136 with activity, end post rest 106.) BP: 132/84 SpO2: 92 % (91% with some SOB post activity, end 94%. 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 Skin: small incisions from laparoscopic procedure on abdomen. IVs BUEs. Musculoskeletal: ROM: AROM of BLEs WFLs, decreased left shoulder flexion due to prior injury. Strength: limited LUE, able to move LEs against gravity. Sensation: intact to light touch. Bed Mobility: Supine to Sit: to left side of bed with HOB slightly elevated with min assist. Sit to Supine: not done, left sitting in recliner reclined. Transfers: Sit to Stand: with contact guard Stand to Sit: with contact guard and cues. Bed to Chair: with walker and contact guard. Gait: Distance: 75 ft Device used: rolling walker Level of assist: Contact guard Gait mechanics: step to gait, decreased step length. Stairs: not done. Balance: Sitting Static: steady Sitting Dynamic: able to bring foot up to figure 4 position without loss of balance. Standing Static: steady with walker Standing Dynamic / Gait: With supervision to contact guard with walker. Education: patient has been educated on pacing, to call for assistance with mobility, and recommendation for home services and supervision at home at this time and verbalizes understanding. Patient status, treatment, and mobility recommendations discussed with nursing. Ther-ex: reviewed deep breathing and AROM. Assessment: Linda Fuller was seen today for physical therapy evaluation. Patient presenting with some abdominal pain, some gait and balance and mobility deficits and general deconditioning post surgery. She needs one assist and a walker for safety with mobility at this time. MD rounded during session and patient may be d/c'd later today after swallow study if all goes well. Pt reports familywill be staying with her at d/c. Home PT, OT, and RN services are recommended as well as 21/05 family support at home initially. Will continue PT to safely progress patient's mobility and function while she remains in-house working toward a safe d/c plan; but patient may be d/c'd later today. RN aware of pt's status, and team updated on recommendation for home services and family support at home. Discharge Recommendations: Based on the current findings, Anticipated Discharge Disposition (PT): home with home health, home with supervision (with family support, home PT, OT, and RN) when medically ready for hospital discharge. Consult Recommendations: home PT, OT, and RN services recommended. Equipment needs: Anticipated Equipment Needs at Discharge (PT): None Plan: Therapy Frequency (PT): evaluation only today, but will follow up if she remains in-house. 2017 PT Evaluation Code Rationale: ?? Diagnosis & Pertinent Co-Morbidities, personal factors, and present illness affecting Plan of Care: (see above); Additional personal factors or co- morbidities that impact plan: ?? Total # of Factors: 0 1-2 3+ x ?? Examination of body system impairments, functional limitations and behaviors, and/or participation restrictions. Addressing 1-2 elements Addressing 3 + elements x Addressing 4 + elements ?? Clinical presentation: See assessment above. Stable/Uncomplicated Evolving/Fluctuating Symptoms Unstable/Unpredictable x ?? Clinical decision making of moderate complexity based on pt's functional performance as outlinedin this evaluation. Time IN / OUT: 1210 to 1237 Total Minutes, Physical Therapy: 27 KWADWO MOSQUERA, PT Pager: [phone] Physical Therapy Inpatient Rehabilitation Department * Elsy Anderson, OT - 08/16/2021 12:12 PM EDT Occupational Therapy Evaluation Patient profile: Linda Fuller is a 81 y.o. female admitted on 08/15/2021 who is 1 Day Post op s/p robotic paraesophageal hernia repair. Past Medical History: Diagnosis Date ??? Atrial [...] 26.6) performed by Patrice Cárdenas MD at [facility] OR ??? PRO UPPER GI ENDOSCOPY, DIAGNOSTIC N/A 08/15/2021 EGD, UPPER GI ENDOSCOPY performed by Patrice Cárdenas MD at [facility] Social History: Patient lives alone in a second floor senior housing apartment with elevator access. Daughter will be staying with Pt for a few days following discharge. Home Setup: Bathroom has a walk in shower with grab bars and a shower chair. DME: Rollator walker, cane, shower chair Baseline ADL/Mobility: Pt reported she was independent with ADLs and used a cane for mobility. She has a person who assists with housekeeping tasks every other week. Pt reported a history of fall with the most recent approximately 2 months ago when she tripped on a rug in the bathroom. She enjoys reading and making cards. Precautions/Special Considerations: fall risk, Subjective: Oh more than once a year. Pt stated in regards to fall history. Objective: Seen today for OT evaluation. Cognitive Status/Behavior: ?? Behavior / Mood: alert and cooperative ?? Alert and oriented to: person, place, time and situation ?? Follows commands: 1 step and 100% of the time ?? Attention: difficulty attending to task/directions and due to hearing impairment ?? Safety awareness: [facility] Vision & Perception: ?? 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 glasses are not at hospital Communication: WFL; hard of hearing Range of motion, strength, coordination: Hand dominance: right Decreased ROM of L shoulder flexion (~75 degrees) due to injury after a fall LE limitations: mild deconditioning Activities of Daily Living: Self-feeding: Set up Grooming: Supervision assist standing at the sink Dressing: Supervision assist; Pt demonstrated ability to reach to feet for LB dressing. Donned gownin standing with supervision assist. Bathing: Not assessed Toileting: Transfer: Supervision assist Hygiene: Independent Functional Mobility: Supine to sit: Min assist Sit to stand: Supervision assist Ambulation: CGA with FWW, ~50 feet Stand to sit: Supervision assist Sit to supine: Not assessed - seated in recliner chair Balance: Sitting balance: Good Standing balance: Good- with use of FWW Vitals: RA At Rest With Activity SpO2 92% 94% Heart Rate 104 134 Blood Pressure Pain: 4/10 R flank Skin: laparoscopic punctures abdomen, at high risk for skin breakdown Education: patient have been educated on Role of occupational therapy/rehabilitation, Transfers, Assistive device/technique, ADL, Safety, Precautions/Protocol, Functional Mobility, Activity pacing/Energy conservation, Home Management, Balance, Recommendations and Discharge planning and verbalizes understanding. Patient status, treatment, and mobility recommendations discussed with nursing. Assessment: Pt has been seen for occupational therapy evaluation. Linda Fuller presents with the following performance skill deficits and client factors: increased pain, decreased activity tolerance, decreased flexibility/ROM, decreased strength, decreased sitting/standing balance and deconditioning. These performance deficits have led to activity limitations and participation restrictions in the following areas of occupation: bathing, transfers/mobility, home management and community mobility. Pt presented as pleasant and willing to participate but reported subjective weakness during par ticipation in ADL tasks. Tolerance for standing tasks was limited and she was tachycardic with minimal activity. Pt's daughter will be staying with her for a few days upon discharge and can provide 24 hour supervision initially. Recommend home health OT service once medically ready for discharge. Pt would benefit from further inpatient OT interventions to address performance deficits and maximize participation and independence with occupations of daily living. Equipment needs at discharge: No needs identified. Anticipated Discharge Disposition (OT): home with supervision, home with home health Other Recommendations: ?? Transfer to recliner chair as appropriate and ambulate as tolerated with CGA and FWW ?? Encourage participation in ADL's by providing set up A on tray table and physical assist only asneeded Other Recommendations: No other consults recommended at this time Goals: To be achieved by August 23, 2021. Pt will complete 2 grooming tasks at modified robinson standing/seated at the sink. Pt will complete toileting routine at [facility] including transfer to the bathroom, clothing management, and hygiene. Pt will complete UB bathing and dressing in sitting after set up. Pt will complete LB dressing at [facility] using AE as needed. Pt will complete functional transfers and mobility at [facility] for participation in (I)ADLs using self pacing as needed. Plan: OT: Therapy Frequency (OT): 1-3 times/wk Planned OT interventions: Role of occupational therapy/rehabilitation, Transfers, Assistive device/technique, Adaptive equipment training, ADL, Exercise, Breathing exercises, Positioning, Safety, Precautions/Protocol, Functional Mobility, Activity pacing/Energy conservation, Home Management, Balance, Recommendations, Family training and Discharge planning. Total Minutes, Occupational Therapy: 2016 OT Evaluation Code Rationale: ?? Diagnosis & Pertinent Co-Morbidities affecting Plan of Care: see PMHx ?? Occupational Profile & Client History: Brief Expanded Extensive X ?? Assessment of Occupational Performance: 1-3 performance deficits 3-5 performance deficits 5 + performance deficits X ?? Clinical Decision Making: Low Moderate High X Clinical decision making of moderate complexity using standardized patient assessment instrument and measurable assessment of functional outcome. Pager: [phone] Elsy Anderson OT 08/16/2021 Occupational Therapy Rehabilitation Department * Rolan Funez RN - 08/15/2021 5:58 PM EDT OUTCOME EVALUATION NOTE: OUTCOME SUMMARY: Linda arrived to [facility] at 1500 from PACU. Pt is A/Ox4 and VSS on 2L NC. Pt oriented to new room, admitted to [facility] and call harris within reach. Pt daughter at bedside, encouraging self care. Pt hasseveral laparoscopic sites on abdomen, well approximated. Pt complaining of 4/10 generalized pain in abdomen. Flanagan d/c as ordered, pt due to void at 2100. Pt diet advanced to clear liquid, tolerating well. PLAN MOVING FORWARD: Monitor VS and I&O Pain management INDIVIDUALIZED FALL PREVENTION INTERVENTIONS: Patient-specific fall risk factors per assessment: [current deficits]: Tethering lines, recent surgery, weakness, mobility aid, unfamiliar environment, advanced age Assistance [level of assistance required for transfers and ambulation]: 1-2 assist with walker Supervision [direct monitoring required during toileting and ADLs]: Hands on Surveillance [continuous indirect monitoring]: Purposeful rounding, call harris within reach Patient-specific fall prevention interventions for sensory deficits provided, if applicable: [X] No CPG GOAL OUTCOME EVALUATION: * Ashley Ahn MD - 08/15/2021 3:38 PM EDT [facility] Department of Thoracic Surgery Inpatient Post Op Check Note Patient Name: Linda Fuller Patient : 1940 Patient Patient Location: [address] [place] [address] Attending Surgeon: PATRICE CÁRDENAS ID: Linda Fuller is a 81 y.o. female who is Day of Surgery s/p robotic paraesophageal hernia repair. Subjective: No nausea/vomiting, chest pain, SOB, pain well controlled, offers no complaints Vitals: Temp: [36.4 ??C (97.5 ??F)-36.7 ??C (98.1 ??F)] Heart Rate: [62-87] Resp: [18-29] BP: (144-164)/(68-93) SpO2: [95 %-99 %] Heart Rate from SpO2: [65 bpm-80 bpm] Wt & BMI By Encounter Date Admission (Current) from 08/15/[address] [place] [address] Office Visit from 06/07/[address] Surgery [address] [facility] Weight 61.8 kg (136 lb 4.8 oz) 1 08/15/2021 0627 65.6 kg (144 lb 9.6 oz) 1 06/07/2021 1329 BMI 27.53 1 08/15/2021 0627 30.98 1 06/07/2021 1329 Physical Exam: Gen: NAD, pleasant, laying in bed. HEENT: normocephalic, atraumatic, EOMI, sclerae anicteric Neck: supple, trachea midline Card: RRR, no M/R/G appreciated Pulm: coarse breath sounds diffusely, non-labored breathing on 2L NC Abd: laparoscopic incisions well approximated with skin glue and without evidence of hematoma, abdomen soft, NT, nondistended : flanagan draining clear yellow urine Ext: warm, dry, no edema Neuro: A&Ox3, CN II-XII grossly intact, nonfocal, conversant I/O: No intake/output data recorded. Labs: Recent Results (from the past 72 hour(s)) POCT Glucose Result Value Ref Range POC Glucose 95 65 - 199 mg/dL COVID-19 PCR Specimen: Nasopharyngeal Swab Symptoms->Surveillance Result Value Ref Range SARS-CoV-2 RNA PCR Invalid (A) Not Detected SARS-CoV-2 Source [employer] Swab Respiratory Panel PCR Specimen: Nasopharyngeal Swab Symptoms->Surveillance Result Value Ref Range Resp Panel Source [employer] Swab Resp Panel PCR Negative Negative Adenovirus Not Detected Not Detected Coronavirus HKU1 Not Detected Not Detected Coronavirus NL63 Not Detected Not Detected Coronavirus 229E Not Detected Not Detected Coronavirus OC43 Not Detected Not Detected SARS-CoV-2 Not Detected Not Detected Human Metapneumovirus Not Detected Not Detected Human Rhino/Enterovirus Not Detected Not Detected Influenza A Not Detected Not Detected Influenza B Not Detected Not Detected Parainfluenza 1 Not Detected Not Detected Parainfluenza 2 Not Detected Not Detected Parainfluenza 3 Not Detected Not Detected Parainfluenza 4 Not Detected Not Detected Respiratory Syncytial Virus Not Detected Not Detected Chlamydophila pneumoniae Not Detected Not Detected Mycoplasma pneumoniae Not Detected Not Detected EKG 12 Lead Result Value Ref Range Ventricular rate 70 BPM Atrial Rate 70 BPM P-R Interval 208 ms QRS Duration 90 ms Q-T Interval 454 ms QTC Calculated (Bezet) 490 ms Calculated P [place] 81 degrees Calculated R [place] 32 degrees Calculated T [place] 53 degrees INTERPRETATION Sinus rhythm with Premature atrial complexes in a pattern of bigeminy Prolonged QT Abnormal ECG When compared with ECG of 07-JUN-2021 14:11, Premature atrial complexes are now Present Confirmed by Clara Bonilla ([email or web address]) on 08/15/2021 3:30:14 PM Assessment: Linda Fuller is a 81 y.o. female who is Day of Surgery s/p robotic paraesophageal hernia repair. She is currently in stable condition and recovering well postoperatively. For tomorrow, plan for swallow study and nutrition consult. Plan: Neuro: tylenol; NO TORADOL; wellbutrin and celexa Card: metoprolol Pulm: IS/cough/deep breathe/OOB/ambulate. Albuterol nebulizers FENGI: HLIV, Clear Liquid. Senna, docusate Renal/: Discontinue flanagan, follow up voiding trial, monitor UOP Heme: SQH ID: [email or web address] Endo: ANAYA PPx: scds, SQH, Ambulate 4x a day. OOB. Dispo: full code, floor status Ashley Ahn MD 08/15/2021 Thoracic Surgery Service Pager [phone] * Mary Perez RN - 08/15/2021 12:19 PM EDT 1215: Pt has been given sugammadex per MD. Pt remains with c/o some SOB, O2 sats >95% on N/C. Purse lipped breathing noted at times. 1220: Pt with c/o chest and abd pressure. EKG ordered and obtained. VSS 1225: Pt states breathing is ok and although abd pain is still present it is tolerable and chest pressure has resolved. VSS 1235: Micro lab called to report invalid covid test x2. MD to reorder and lab to run respiratory toretest. Mask placed on patient. * Narcisa Villa RN - 08/15/2021 11:40 AM EDT 1127 Patient arrived from OR in bed with anesthesia and service in attendance. Monitors applied, alarms set per protocol and audible. Pt with rapid shallow breathing. Anesthesia aware. 1138 pt states she feels short of breath. Dr. Chan at bedside. Report to Mary CALDWELL documented in this encounter H&P Notes * Ilan Robb PA - 08/15/2021 6:41 AM EDT Images from the original note were not included. 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 female with a large paraesophageal hernia. She presents today for surgical repair. She last took Eliquis on Sunday 08/12. She completed her bowel prep yesterday. She reports no interval change. There has been no interval medical illness or hospitalizations. She denies f/c/n/v/CP/SOB. She continues to feel like food gets stuck, and she chases it with water with good results. Questions have been addressed. Smoking HX: Social History Tobacco Use Smoking Status Former Smoker ??? Packs/day: 1.00 ??? Years: 15.00 ??? Pack years: 15.00 ??? Types: Cigarettes Smokeless Tobacco Never Used Tobacco Comment quit 40 yrs ago PMH: Patient Active Problem List Diagnosis Date Noted ??? Anticoagulant long-term use 06/27/2021 ??? Cough 06/27/2021 ??? LEWIS (dyspnea on exertion) 06/27/2021 ??? Fall 06/27/2021 ??? Hyperglycemia 06/27/2021 ??? Hypokalemia 06/27/2021 ??? Iliotibial band syndrome of right side 06/27/2021 ??? Left shoulder pain 06/27/2021 ? ? Lung nodule < 6cm on CT 06/27/2021 ??? Paraesophageal hernia 06/27/2021 ??? Rib pain on left side 06/27/2021 ??? Urinary incontinence 06/27/2021 ??? Vomiting 06/27/2021 ??? Wheeze 06/27/2021 ??? Hypertension ??? Hyperlipemia ??? Depression ??? CVA (cerebral vascular accident) ??? Atrial fibrillation ??? Anxiety and depression 09/05/2017 ??? Osteoporosis 02/13/2017 ??? Adjustment disorder, unspecified 11/16/2016 ??? Gastroesophageal reflux disease 04/28/2016 ??? History of gallstones 04/28/2016 ??? Essential hypertension 04/28/2016 ??? History of CVA (cerebrovascular accident) 10/24/2015 ??? 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 CHOLECYSTECTOMY ??? JOINT REPLACEMENT Right ??? JOINT REPLACEMENT Left MEDS: No current facility-administered medications on file prior to encounter. Current Outpatient Medications on File Prior to Encounter Medication Sig Dispense Refill ??? vit A/vit C/vit E/zinc/copper (ICAPS AREDS ORAL) Take by mouth. ??? acetaminophen (Tylenol) 500 mg Tablet Take 650 mg by mouth every 6 hours as needed for Pain. ??? albuteroL 90 mcg/actuation HFA Aerosol Inhaler Inhale 2 puffs into the lungs every 4 hours as needed for Wheezing. Use with spacer ??? amLODIPine (Norvasc) 10 mg Tablet Take 10 mg by mouth daily. ??? apixaban 5 mg (74 tabs) Tablets, Dose Pack Take 5 mg by mouth 2 times daily. ??? buPROPion XL (Wellbutrin XL) 150 mg Tablet Extended Release 24 hr Take 150 mg by mouth every morning. ??? calcium-vitamin D 500 mg(1,250mg) -200 unit Tablet Take 1 tablet by mouth 2 times daily (with meals). ??? citalopram (CeleXA) 20 mg Tablet Take 20 mg by mouth daily. ??? fenofibrate (TRICOR) 48 mg Tablet Take 48 mg by mouth daily. ??? fluticasone propionate (FLOVENT) 110 mcg/actuation HFA Aerosol Inhaler Inhale 1 puff into the lungs 2 times daily. ??? metoprolol succinate XL (Toprol-XL) 50 mg Tablet Sustained Release 24 hr Take 50 mg by mouth daily. ??? omeprazole (PriLOSEC) 40 mg Capsule, Delayed Release(E.C.) Take 40 mg by mouth daily. ??? denosumab (PROLIA) 60 mg/mL Syringe Inject 60 mg subcutaneously once. ALL: Allergies Allergen Reactions ??? Pcn [Penicillins] Other (See Comments) Arms swell up ??? Sulfa (Sulfonamide Antibiotics) Nausea And Vomiting Physical Exam Patient Vitals for the past 24 hrs: Temp Pulse Resp BP SpO2 08/15/21 0627 36.4 ??C (97.5 ??F) 62 18 (!) 155/93 96 % Gen: NAD, pleasant, sitting up comfortably in bed HEENT: normocephalic, atraumatic, sclerae anicteric Neck: supple, trachea midline Card: RRR, no M/R/G appreciated Pulm: CTAB, no wheeze/ronchi/rales appreciated, non-labored breathing on RA Abd: soft, NT, BS+ Ext: warm, dry, no edema Neuro: Alert, nonfocal, conversant LABS: Lab Results Component Value Date WBC 7.8 08/05/2021 RBC 4.36 08/05/2021 HGB 13.4 08/05/2021 HCT 40.3 08/05/2021 MCV 92.4 08/05/2021 MCH 30.7 08/05/2021 MCHC 33.3 08/05/2021 PLATELET 295 08/05/2021 RDWCV 13.2 08/05/2021 Lab Results Component Value Date/Time NA 139 08/05/2021 09:50 AM K 3.7 08/05/2021 09:50 AM CL 104 08/05/2021 09:50 AM CO2 28 08/05/2021 09:50 AM BUN 21 (H) 08/05/2021 09:50 AM CREATININE 1.05 08/05/2021 09:50 AM Manometry (05/23/21): - Upper Esophageal Sphincter:??normal mean residual pressure and relaxation duration - Body:?? 20% of swallows failed. 0% of swallows had premature contractions with shortened distal latency time.? The remaining??80% of swallows were peristaltic, includin% of swallows with hypercontractility, 0% of swallows with weak peristalsis,??and 0% of swallows with large breaks (>5 cm) in the 20mmHg isocontour line. - Esophagogastric Junction:??Midpoint located??n/a??cm from the nares, and proximal extent located at??n/a??cm. ? The catheter tip did not pass through the diaphragm so accurate assessment of the LES could not be completed. There is evidence of preserved esophageal peristalsis ruling out achalasia. If assessment of the LES function is needed please contact us regarding potentially arranging an endoscopically placed catheter.?? Personal communication with Dr. Henao - The UES was normal with no signs of hypertonic muscle or stricture. ? XR Fluoro Barium Swallow ?(04/26/2021): 1. ??Very large hiatal hernia, measuring approximately 22 cm. Gastroesophageal junction appears to be positioned in the posterior midline. 2. ??Patulous esophagus. Normal motility. 3. ??Moderately-sized cricopharyngeal bar. Stress test (06/21/21): CTA(08/05/21): Coronary calcium score of 18, consistent with mild atherosclerotic plaque burden and 18%-ile rank based on age, race/ethnicity, and gender. ??Single small focus of calcified atherosclerotic plaque in the proximal LAD. Luminal narrowing is less than 50%. CAD RADS 2 (mild, nonobstructive coronary artery disease) Known large paraesophageal hernia is not entirely included on this coronary CT arteriogram. Cardiac clearance (07/21/21): CONSENT: Yes/EMR - Yes Assessment/Plan: Linda Fuller is a 81 y.o. female presenting today for planned esophagogastroduodenoscopy, robotic assisted laparoscopic repair of giant paraesophageal hernia. Consent signed andconfirmed in chart. Questions addressed. Will proceed with planned surgery. MANDY Luis 08/15/2021 Thoracic Surgery Service Pager [phone] documented in this encounter Miscellaneous Notes * Plan of Care - Rajani Epps RN - 08/16/2021 4:55 AM EDT OUTCOME EVALUATION NOTE: OUTCOME SUMMARY: Patient had an okay night. A&Ox4, VSS on 2L NC. Complaining of mild aching pain in abdomen. Scheduled Tylenol given. Intermittently tachy when ambulating to the bathroom. Pt voiding adequate amounts. No BM during shift. Pt with doggy bag at bedside for intermittent dry heaving. NPO for shallow study that will be done today. PLAN MOVING FORWARD: Pain management Swallow study Monitor VS and I&Os Encourage ambulation INDIVIDUALIZED FALL PREVENTION INTERVENTIONS: Patient-specific fall risk factors per assessment: [current deficits]: Recent surgery, generalized weakness, unfamiliar environment, portable oxygen tank Assistance [level of assistance required for transfers and ambulation]: 1A w/ FWW Supervision [direct monitoring required during toileting and ADLs]: Hands on Surveillance [continuous indirect monitoring]: Purposeful hourly rounding, call light in reach, belongings in reach Patient-specific fall prevention interventions for sensory deficits provided, if applicable: [X] Yes CPG GOAL OUTCOME EVALUATION: Ongoing * Brief Op Note - Ilan Robb PA - 08/15/2021 11:46 AM EDT Brief Operative Note Patient Name: Linda Fuller : [id number] MR#: [id number] Case Date: 08/15/2021 Surgeon: Surgeon(s) and Role: * Patrice Cárdenas MD - Primary * Ilan Robb PA - Physician Commercial Plumber Preoperative diagnosis: Giant paraesophageal hernia Postoperative diagnosis: Giant paraesophageal hernia Procedure(s) (LRB): ROBOT XI LAPAROSCOPIC PARAESOPHAGEAL HERNIA REPAIR W/FUNDOPLASTY,W/O MESH (WRVU 26.6) (N/A) MODIFIER ROBOTERROL XI (N/A) EGD, UPPER GI ENDOSCOPY (N/A) Anesthesia: General Findings: Upper EGD performed preoperatively showing GE junction at 28 cm from incisors, esophagus was patulous and redundant, Z-line regular with no evidence of reflux. Robotic assisted laparoscopicrepair of giant paraesophageal hernia. Hernia contained stomach and colon, reduced. <1cm defect identified at muscular wall of esophagus likely due to retraction injury, repaired primarily with int errupted sutures. Postprocedure upper EGD showed no esophageal mucosal defect. Complications: <1cm defect at muscular wall of esophagus Estimated Blood Loss: 7 mL Specimens removed during surgery: Order Name Source Comment Collection Info Order Time SPECIMEN TO PATHOLOGY Hernia sac OR 11 [id number] Giant paraesophageal hernia Hernia sac excision No 08/15/2021 9:48 AM Time specimen removed from patient: 9:47 AM Number of tissue samples (in container) 1 Fluids: Intraprocedure Crystalloid Total Intake Lactated Ringers 1000.00 mL lactated ringers infusion 600.00 mL Total Intake 1600 mL Output Urine Output 75 mL Blood Loss 7 mL Total Output 82 mL Net Net Volume 1518 mL PRBCs: none (See Anesthesia Record/Report for Other Blood Products) Urine Output: 40 mL Drains: None Disposition: awakened from anesthesia, extubated and taken to the recovery room in a stable condition, having suffered no apparent untoward event. Condition: doing well without problems (Please see the Surgical Encounter Summary for any Implant and Specimen details pertinent to this patient.) Infection Bundle used? N/A * Op Note - Patrice Cárdenas MD - 08/15/2021 8:20 AM EDT Pre-Op Diagnosis: Giant Paraesophageal Hernia Post-Op Diagnosis: Giant Paraesophageal Hernia Procedure: Robotic Repair of paraesophageal hernia, EGD Operative Indications: This is an 81 y/o female who presented with a large paraesophageal hernia that is symptomatic (liquid diet or she vomits). Her manometry was essentially normal with no evidenceof issues with UES. She requires repair of her hernia. Operative findings: Upper EGD performed preoperatively showing GE junction at 28 cm from incisors, esophagus was patulous and redundant, Z-line regular with no evidence of reflux. Robotic assisted laparoscopic repair of giant paraesophageal hernia. Hernia contained stomach and colon, reduced. <1cm defect identified at muscular wall of esophagus likely due to retraction injury, repaired primarily with interrupted sutures. Postprocedure upper EGD showed no esophageal mucosal defect. GEJ 4 cm below hiatus. Closure of hiatus without tension. Operative dictation: Consent was obtained the patient was brought to the operating room and placed in the supine position. Single-lumen endotracheal anesthesia was administered with any difficulty, timeout was performed and an Olympus gastroscope was advanced. Showed normal esophagus with a GE junction approximately 28 cm large hiatal hernia with difficulty getting through the hiatal opening portal to see the pylorus which was normal first and second portion of the duodenum anatomy. There was some foodstuffs in her stomach but these were easily pushed down through the pylorus into the duodenum. There is no ischemic mucosa noted. The scope was removed and an NG tube was placed and then confirmed under direct visualization with the EGD. Scope was then removed and patient was placed in the supine position, left arm tucked, right arm out, footboard placed. Sterile prep and drape are done usual fashion, timeout was performed prior to making any incisions about 5% Marcaine was instilled each incision site. Approximately 3 cm above the umbilicus a 1 and half centimeter vertical incision was performed and a combination electrocautery and blunt dissection was used to identify the fascia. [place]'s were used on the fascia to lifted up it was incised vertically and sharply and the peritoneumwas entered sharply as well. An 8 mm robotic trocar was advanced and gas insufflation to 15 mmHg was performed. The patient was placed in steep reverse Trendelenburg and a camera was advanced into the abdomen. She had colon and stomach and omentum through the hiatal hernia. Two 8 mm ports were placed in the left upper quadrant and a 5 mm port was placed in the right upper quadrant through which aliver retractor was placed in the left lobe of the liver was held up out of the way. The retractor was held in place with a Alexis arm. We then placed a 5 and 12 mm port in the right lower quadrant and a a millimeter port in the right upper quadrant the robot was docked. We started by reducing the hernia gently removing the entire colon, omentum and reducing some of the stomach into the abdominal cavity. We then started our dissection by incising the hernia sac inside the opening of the hernia and dissecting the sac off of its attachments. Bipolar and electrocautery were used to take the sac down as well as a significant minor blunt dissection. We identified first the left and then the right vagal nerve in both these were preserved. The LAD first to continue to reduce the stomach down ultimately into the abdomen, we then opened up the gastrocolic ligament and completed her dissection ofthe esophageal hiatus and circumferential direction. We did resect a portion of the hernia sac off of the stomach leaving the gastric fat pad in place. This was sent for pathology, gross only. We then performed a circumferential dissection the esophagus all the way up to the level of the subcarinalspace approximately 3 cm above the inferior pulmonary veins. This was due to the significant shortened esophagus requiring a full dissection esophagus to allow for enough length to allow the GE junction to be approximately 4 cm into the abdominal cavity below the hiatus. As we are finishing our dissection of the esophagus we noted a small right lateral tear approximately 5 cm above the GE junction of the muscularis layer of the esophagus, less than 1 cm in size. This was most likely retraction injury from one of the robotic instrument's elbows. There was no mucosal defect. This was reapproximated using 4-0 silk suture in interrupted fashion. We then confirmed hemostasis within the hernia dissection. The hiatus was then closed using interrupted 0 Ethibond sutures using pledgets, placing 4 sutures posteriorly and a single suture anteriorly I was not really to close the hiatus but more place a pledgeted suture anteriorly to increase amount of inflammation and reduce the hernia recurrencerate. This left less than a 1 cm opening (just enough to fit a robotic instrument through) and was not tight on the esophagus. Since the patient had a normal manometry and no evidence of reflux and we are able to recreate the angle of HIS, a wrap was not performed. We then performed an EGD and noted no mucosal changes throughout the esophagus and were able to insufflate into the esophagus withoutleak. The robotic instruments were then removed as well as liver retractor and direct visualization. The 12 mm port was removed and the fascia closed using 0 Vicryl suture in a ejlvfd-qu-hfvkh fashion using a Mina Lara needle. Patient was placed supine and the gas was evacuated from the abdominal cavity and the ports were removed. The midline incision was closed with interrupted 0 Vicryl sutures under direct visualization. The wounds were then all irrigated and closed with a 3-0 Vicryl jourdan dermal fashion and Dermabond for the skin. MANDY Clark was my after school program assistant during the entire procedure since no qualified resident was available. The patient was then woken from anesthesia, extubated brought to recovery in stable condition. I was present for the entire procedure and dictated this operative note. Patrice Cárdenas MD documented in this encounter Plan of Treatment Not on file documented as of this encounter Procedures Procedure Name Priority Date/Time Associated Diagnosis Comments XR FLUORO BARIUM SWALLOW (DOUBLE CONTRAST) Routine 08/16/2021 2:17 PM EDT EKG 12-LEAD STAT 08/15/2021 12:17 PM EDT Hiatal hernia SURGICAL PATHOLOGY REPORT Routine 08/15/2021 9:48 AM EDT SPECIMEN TO PATHOLOGY Routine 08/15/2021 9:48 AM EDT Upper GI Endoscopy, Diagnostic ([id number]) Yes 08/15/2021 7:35 AM EDT Hiatal hernia MODIFIER ROBOT,DAVINCI XI Yes 08/15/2021 7:35 AM EDT Hiatal hernia Laparoscopy Repair Paraesophageal Hernia Incl Fundoplasty W/O Mesh ([id number]) Yes 08/15/2021 7:35 AM EDT Hiatal hernia RAPID COVID-19 PCR ([facility]/APD/[place]) Routine 08/15/2021 7:13 AM EDT RESPIRATORY PANEL PCR Routine 08/15/2021 7:13 AM EDT POCT GLUCOSE Routine 08/15/2021 6:34 AM EDT ROBOT XI LAPAROSCOPIC PARAESOPHAGEAL HERNIA REPAIR W/FUNDOPLASTY,W/O MESH Routine 08/15/2021 6:15 AM EDT Hiatal hernia UPPER GI ENDOSCOPY Routine 08/15/2021 6: 15 AM EDT Hiatal hernia documented in this encounter Results * XR Chest PA & Lateral (Generic) (08/30/2021 12:41 PM EDT) Anatomical Region Laterality Modality Chest N/A Digital Radiogra phy Impressions 08/30/2021 1:05 PM EDT No acute cardiopulmonary abnormality. Thank you for letting us participate in the care of this patient. ??If you are a health care provider and have any questions regarding this report, please contact the number below. ??For patients who have questions please contact the health home care physical therapist that requested your imaging first. ? Electronically signed by: Law Galo MD, [facility] ([phone]), at 08/30/2021 1:05 PM Narrative 08/30/2021 1:05 PM EDT EXAMINATION: XR CHEST PA AND LATERAL (GENERIC) CLINICAL HISTORY: s/p robotic PEHR recurrence, PTX, effusion, comparison, changes TECHNIQUE: PA and lateral views of the chest COMPARISON: None FINDINGS: : The cardiomediastinal silhouette, maddy, and central pulmonary vascular markings are within normal limits. No focal airspace opacity. No pleural effusion. No pneumothorax. The trachea is midline. Unchanged T11 compression fracture. Cholecystectomy clips. Procedure Note Law Galo MD - 08/30/2021 EXAMINATION: XR CHEST PA AND LATERAL (GENERIC) CLINICAL HISTORY: s/p robotic PEHR recurrence, PTX, effusion, comparison, changes TECHNIQUE: PA and lateral views of the chest COMPARISON: None FINDINGS: : The cardiomediastinal silhouette, maddy, and central pulmonary vascularmarkings are within normal limits. No focal airspace opacity. No pleural effusion.No pneumothorax. The trachea is midline. Unchanged T11 compression fracture. Cholecystectomy clips. IMPRESSION No acute cardiopulmonary abnormality. Thank you for letting us participate in the care of this patient. If youare a health care provider and have any questions regarding this report,please contact the number below. For patients who have questions please contactthe health home care physical therapist that requested your imaging first. Electronically signed by: Law Galo MD, [facility]([phone]), at 08/30/2021 1:05 PM Patrice Cárdenas MD IMG DX ORDERABLES * XR Fluoro Barium Swallow (Double Contrast) (08/16/2021 2:17 PM EDT) Anatomical Region Laterality Modality N/A Radio Fluoroscop y Impressions 08/16/2021 2:59 PM EDT 1. ??No evidence of esophageal leak or recurrent hernia. 2. ??Marked narrowing of the gastroesophageal junction with prolonged contrast progression, likely due to postoperative edema. I have personally reviewed the image(s) and the resident's interpretation and agree with the findings, Law Galo MD at 08/16/2021 2:59 PM Thank you for letting us participate in the care of this patient. ??If you are a health care provider and have any questions regarding this report, please contact the number below. ??For patients who have questions please contact the health home care physical therapist that requested your imaging first. ? Electronically signed by: Law Galo MD, [facility] ([phone]), at 08/16/2021 2:59 PM Narrative 08/16/2021 2:59 PM EDT EXAMINATION: XR FLUORO BARIUM SWALLOW (DOUBLE CONTRAST) CLINICAL HISTORY: s/p PEHR repair - please eval for recurrence TECHNIQUE: Single contrast esophagram was performed using 50 cc Omnipaque 300. Electronics Manufacturer AP radiograph of the lower chest/upper abdomen was obtained. COMPARISON: Barium swallow 04/26/2021 FINDINGS: Electronics Manufacturer radiograph demonstrates mild linear atelectasis at the lung bases. Surgical clips over the right upper quadrant. No dilated loops of bowel. No acute osseous finding. Patient swallowed oral contrast under fluoroscopic observation in the AP and bilateral oblique projections. No evidence of esophageal leak. There is marked narrowing of the gastroesophageal junction likely due to postoperative edema, with prolonged retention of contrast in the distal esophagus. The stomach appears positioned below the diaphragm. Procedure Note Law Galo MD - 08/16/2021 EXAMINATION: XR FLUORO BARIUM SWALLOW (DOUBLE CONTRAST) CLINICAL HISTORY: s/p PEHR repair - please eval for recurrence TECHNIQUE: Single contrast esophagram was performed using 50 cc Omnipaque 300. ScoutAP radiograph of the lower chest/upper abdomen was obtained. COMPARISON: Barium swallow 04/26/2021 FINDINGS: Electronics Manufacturer radiograph demonstrates mild linear atelectasis at the lung bases. Surgical clips over the right upper quadrant. No dilated loops of bowel.No acute osseous finding. Patient swallowed oral contrast under fluoroscopic observation in the APand bilateral oblique projections. No evidence of esophageal leak. There ismarked narrowing of the gastroesophageal junction likely due to postoperativeedema, with prolonged retention of contrast in the distal esophagus. Thestomach appears positioned below the diaphragm. IMPRESSION 1. No evidence of esophageal leak or recurrent hernia. 2. Marked narrowing of the gastroesophageal junction with prolongedcontrast progression, likely due to postoperative edema. I have personally reviewed the image(s) and the resident's interpretationand agree with the findings, Law Galo MD at 08/16/2021 2:59 PM Thank you for letting us participate in the care of this patient. If youare a health care provider and have any questions regarding this report,please contact the number below. For patients who have questions please contactthe health home care physical therapist that requested your imaging first. Electronically signed by: Law Galo MD, [facility]([phone]), at 08/16/2021 2:59 PM Patrice Cárdenas MD IMG FLUORO ORDERABLE S * EKG 12 Lead (08/15/2021 12:17 PM EDT) Ventricular rate 70 BPM MUSE SYSTEM Atrial Rate 70 BPM MUSE SYSTEM P-R Interval 208 ms MUSE SYSTEM QRS Duration 90 ms MUSE SYSTEM Q-T Interval 454 ms MUSE SYSTEM QTC Calculated (Bezet) 490 ms MUSE SYSTEM Calculated P [place] 81 degrees MUSE SYSTEM Calculated R [place] 32 degrees MUSE SYSTEM Calculated T [place] 53 degrees MUSE SYSTEM INTERPRETATION Sinus rhythm with Premature atrial complexes in a pattern of bigeminy Prolonged QT Abnormal ECG When compared with ECG of 07-JUN-2021 14:11, Premature atrial complexes are now Present Confirmed by Clara Bonilla ([email or web address]) on 08/15/2021 3:30:14 PM MUSE SYSTEM 08/15/2021 12:1 7 PM EDT 08/15/2021 3:30 PM EDT Patrice Cárdenas MD ECG ORDERABLES MUSE SYSTEM * Surgical Pathology Report (08/15/2021 9:48 AM EDT) Final Diagnosis [id number] ? Location: [facility]; [facility]; A The signing pathologist has (i) examined the relevant preparation(s) for the specimen(s) and (ii) rendered or confirmed the diagnosis(es). . ?Surgical Pathology DIAGNOSIS A - Fibromembranous tissue, hernia sac: Gross surgical pathology examination. Electronically signed by: ?Hayley Echavarria MD Verified: ??08/19/2021 20:48 ??Pathologist Performed at: ??-[facility] Dept. of Pathology, [place], [place] SPECIMEN(S) SUBMITTED A - Hernia sac, excision (1) CLINICAL INFORMATION clinically giant paraesophageal hernia SPECIMEN PROCESSING A - Labeled/Fixative: Hernia sac, fresh. Quantity/Size: Two, aggregating 8.4 x 5.3 x 0.3 cm. Tissue Description: Adame-pink fibromembranous tissue. Sections/Processin g: No sections submitted, gross diagnosis only ??pps 08/19/2021 8:48 PM EDT [facility] HERNIA SAC / Unknown 08/15/2021 9:48 AM EDT 08/15/2021 9:48 AM EDT Patrice Cárdenas MD PATHOLOGY/CYTOLOGY O RDERABLES [facility] [place] [address] * Specimen to Pathology (08/15/2021 9:48 AM EDT) AP Specimen 08/15/2021 9:48 AM EDT 08/15/2021 9:48 AM EDT Narrative [facility] - 08/15/2021 9:48 AM EDT Specimen requisition ordered. ??Separate Pathology report to follow Patrice Cárdenas MD PATHOLOGY/CYTOLOGY O RDERABLES [facility] [place] [address] * Respiratory Panel PCR (08/15/2021 7:13 AM EDT) Respiratory Panel Source SALES ASSOCIATE CASHIER Swab [facility] Respiratory Panel PCR Negative Negative [facility] Comment: Respiratory Panels are performed on the [employer], using multiplexed PCR nucleic acid detection. ??Negative results do not preclude respiratory infection and should not be used as the sole basis for diagnosis, treatment or other management decisions. Adenovirus Not Detected Not Detected [facility] Coronavirus HKU1 Not Detected Not Detected [facility] Coronavirus NL63 Not Detected Not Detected [facility] Coronavirus 229E Not Detected Not Detected [facility] Coronavirus OC43 Not Detected Not Detected [facility] SARS-CoV-2 Not Detected Not Detected [facility] Comment: Testing for SARS-CoV-2 (Severe acute respiratory syndrome coronavirus 2) to aid in the diagnosis of COVID-19 is performed using the Bio[employer] Respiratory Panel 2.1 ([employer]) as authorized by the FDA issued Emergency Use Authorization (EUA). This panel also tests for multiple other viral and bacterial pathogens. This assay is intended for In-vitro Diagnostic (IVD) use with nasopharyngeal swabs in viral transport media. The assay is performed based on the instructions for use and additional guidance provided by the FDA. Testing is performed in laboratories within the [facility], each of which is certified under the Clinical Laboratory Improvement Amendments of 1988 (CLIA), 42 U.S.C. section 263a, to perform high-complexity tests. Assay performance has been verified according to clinical laboratory regulatory requirements. The test result for SARS-CoV-2 provided above should be interpreted in combination with the clinical observation, patient history and epidemiological information. For testing of asymptomatic individuals, assay performance characteristics and clinical utility have not been evaluated. ??A result of Not Detected indicates that the viral RNA target is not present but does not preclude SARS-CoV-2 infection. False negative results may occur if a specimen is improperly collected, transported or handled; if amplification inhibitors are present; or if inadequate numbers of viral particles are present in the specimen. When a diagnostic test is negative, the possibility of a false negative result should be considered in the context of a patient's recent exposures and the presence of clinical signs and symptoms consistent with COVID-19. A result of Detected suggests a current or recent infection. Positive and negative predictive values for this test are dependent on disease prevalence. A result of Invalid indicates the inability to conclusively determine the presence or absence of SARS-CoV-2 RNA in the sample which can be due to a variety of factors. ??Collection of a new sample for repeat testing is recommended in the case of an invalid result. CDC COVID-19 criteria for testing on human specimens and clinical management guidance information are available at the CDC Coronavirus Disease 2019 (COVID-19) webpage under Information for Healthcare Professionals (https://www.cdc.gov/coronavirus/2019-ncov/hcp/index.html). Additional information about this and other EUA tests can be found in provider and patient fact sheets at the following FDA website: https://www.fda.gov/medical-devices/ybvrkfotznz-jlftoey-9357-rfqav-19-dcccozeqi- use-a qnoklhkcwnfqp-youaoyw-neesmac/luuou-vegoyysvtji-reee Human Metapneumovirus Not Detected Not Detected [facility] Human Rhinovirus/Enterov irus Not Detected Not Detected [facility] Influenza A Not Detected Not Detected [facility] Influenza B Not Detected Not Detected [facility] Parainfluenza 1 Not Detected Not Detected [facility] Parainfluenza 2 Not Detected Not Detected [facility] Parainfluenza 3 Not Detected Not Detected [facility] Parainfluenza 4 Not Detected Not Detected [facility] Respiratory Syncytial Virus Not Detected Not Detected [facility] Chlamydophila pneumoniae Not Detected Not Detected [facility] Mycoplasma pneumoniae Not Detected Not Detected [facility] Nasopharyngeal Swab Other / Unknown 08/15 7:13 AM EDT 08/15/2021 8:19 AM EDT Comment:Symptoms->Surveillan ce Narrative Resulting Agency Comment Spec In Lab Ilan GALVAN MICROBIOLOGY - GENER AL ORDERABLES [facility] [place] [address] * (ABNORMAL) COVID-19 PCR (08/15/2021 7:13 AM EDT) SARS-CoV-2 RNA (Rapid) Invalid( A) Not Detected [facility] Comment: This result should be interpreted [...] using the Simplexa COVID-19 Direct Assay by [employer] as authorized by the FDA issued Emergency [...] Department of Pathology and Laboratory Medicine at [facility], certified under the Clinical Laboratory Improvement Amendments [...] fact sheets at the following FDA website: https://www.fda.gov/medical-devices/edlpqwnrcnt-svchfup-9497-awtum-38-bdzerczno- use-a jkkoqrdfkjuqc-vvdjfky-huewtlz/qvwxc-iatrhxylgqh-pfzc SARS-CoV-2 Source SALES ASSOCIATE CASHIER Swab ID [facility] Nasopharyngeal Swab 08/15/20 7:13 AM EDT 08/15/2021 8:19 AM EDT Comment:Symptoms->Surveillan ce Narrative Resulting Agency Comment Spec In Lab Patrice Cárdenas MD MICROBIOLOGY - GENER AL ORDERABLES Performing Organization Address City/[facility]/ZIP Co de Phone Number [facility] [place] [address] * POCT Glucose (08/15/2021 6:34 AM EDT) Glucose, POC 95 65 - 199 mg/dL [facility] [facility] Comment: Supplemental ranges: <140 mg/dL before meals <180 mg/dL all other times of the day Blood 08/15/2021 6:34 AM EDT 08/15/2021 6:34 AM EDT Patrice Cárdenas MD POINT OF CARE TEST O RDERABLES Performing Organization Address City/[facility]/ZIP Co de Phone Number [facility] [place] [address] documented in this encounter Visit Diagnoses Diagnosis Hiatal hernia Diaphragmatic hernia without mention of obstruction or gangrene Paraesophageal hernia Diaphragmatic hernia without mention of obstruction or gangrene Hiatal hernia Diaphragmatic hernia without mention of obstruction or gangrene documented in this encounter Admitting Diagnoses Diagnosis Paraesophageal hernia Diaphragmatic hernia without mention of obstruction or gangrene documented in this encounter Administered Medications Inactive Administered Medications - up to 3 most recent administrations Medication Order MAR Action Action Date Dose Rate Site acetaminophen (Tylenol) (32.02 mg/mL) oral liquid 650 mg 650 mg, Oral, EVERY 4 HOURS PRN, Starting on Sun08/16/21 at 1706, Until Sun08/16/21 at 7, Fever, Maximum dose of acetaminophen is 4000 mg from all sources in 24 hours. When ordered for pain, acetaminophen should be given even when other ordered pain medications are indicated. , Routine acetaminophen (Tylenol) tablet 1,000 mg 1,000 mg, Oral, EVERY 6 HOURS SCHEDULED, First dose on Sun08/15/21 at 1800, Until Discontinued, Maximum dose of acetaminophen is 4000 mg from all sources in 24 hours. When ordered for pain, acetaminophen should be given even when other ordered pain medications are indicated. Please crush and dissolve in water, Recovery (Recovery-Hospital Unit), Routine Given 08/15/2021 11:32 PM EDT 1,000 mg Given 08/15/2021 6:30 PM EDT 1,000 mg buPROPion (Wellbutrin) tablet 75 mg 75 mg, Oral, 2 TIMES DAILY, First dose on Sun08/15/21 at 2100, Until Discontinued, Please crush and dissolve, Routine Given 08/15/2021 8:05 PM EDT 75 mg citalopram (CeleXA) tablet 20 mg 20 mg, Oral, DAILY, First dose on Sun08/15/21 at 1530, Until Discontinued, Please crush and dissolve in water, Routine Given 08/15/2021 3:28 PM EDT 20 mg docusate sodium (Colace) (10 mg/mL) oral liquid 100 mg 100 mg, Oral, 3 TIMES DAILY, First dose on Sun08/15/21 at 1530, Until Discontinued, Routine Given 08/16/2021 3:15 PM EDT 100 mg Given 08/15/2021 3:28 PM EDT 100 mg heparin (porcine) (5,000 units/1 mL) subcutaneous injection 5,000 Units 5,000 Units, Subcutaneous, SALES COACH TO O.R., 1 dose, On Sun08/15/21 at 0715, Not within 60 minutes of placing epidural catheter., Day of Surgery (Day of Procedure), Routine Given 08/15/2021 7:04 AM EDT 5,000 Units Right Arm heparin (porcine) (5,000 units/1 mL) subcutaneous injection 5,000 Units 5,000 Units, Subcutaneous, EVERY 8 HOURS SCHEDULED, First dose on Sun08/15/21 at 1500, Until Discontinued, Routine Given 08/16/2021 3:13 PM EDT 5,000 Units Given 08/16/2021 6:50 AM EDT 5,000 Units Given 08/15/2021 11:32 PM EDT 5,000 Units HYDROmorphone (Dilaudid) (2 mg/mL) multi-dose injection solution 0.2 mg 0.2 mg, Intravenous, EVERY 10 MIN PRN, Starting on Sun08/15/21 at 1143, Until Sun08/15/21 at 1428, Pain, For Mild to Moderate Pain (1-5 out of 10), Hold for respiratory rate less than 10 per minute. Maximum dose 3 mg over one hour including administrations in the OR. If multiple pain medications are ordered, start with HYDROmorphone or morphine and use fentaNYL for breakthrough pain, PACU Recovery, Routine Given 08/15/2021 12:16 PM EDT 0.2 mg iohexoL (Omnipaque) (300 mg/mL) injection solution 100 mL 100 mL, Oral, ONCE, 1 dose, On Sun08/16/21 at 1445, Warning Vesicant/Irritant Medication , Routine Given 08/16/2021 2:45 PM EDT 50 mLs ipratropium (Atrovent) 0.02 % nebulizer solution 0.5 mg 0.5 mg, Nebulization, EVERY 6 HOURS, First dose on Sun08/15/21 at 1530, Until Discontinued, Routine Given 08/16/2021 3:13 PM EDT 0.5 mg Given 08/16/2021 8:55 AM EDT 0.5 mg Given 08/16/2021 3:33 AM EDT 0.5 mg lactated Ringers 500 mL IV bolus at 250 mL/hr, Intravenous, ONCE, 1 dose, On Sun08/16/21 at 1315 New Bag 08/16/2021 12:57 PM EDT 250 mL/hr lactated ringers infusion 1,000 mL, at 100 mL/hr, Intravenous, CONTINUOUS, Starting on Sun08/15/21 at 0715, Until Sun08/15/21 at 1428, Day of Surgery (Day of Procedure) Restarted 08/15/2021 8:11 AM EDT New Bag 08/15/2021 7:33 AM EDT 1,000 mLs 100 mL/hr metoprolol tartrate (Lopressor) tablet 25 mg 25 mg, Oral, EVERY 12 HOURS SCHEDULED (2 times per day), First dose on Sun08/15/21 at 2100, Until Discontinued, Please crush and dissolve, Routine Given 08/15/2021 8:05 PM EDT 25 mg pantoprazole (Protonix) injection 40 mg 40 mg, Intravenous, DAILY, First dose on Sun08/15/21 at 1530, Until Discontinued Given 08/16/2021 8:55 AM EDT 40 mg Given 08/15/2021 3:28 PM EDT 40 mg sennosides (Senokot) (1.76 mg/mL) oral liquid 8.8 mg 8.8 mg, Oral, 2 TIMES DAILY, First dose on Sun08/16/21 at 2100, Until Discontinued, Routine sodium chloride 0.9 % (flush) (BD PosiFlush Normal Saline 0.9) flush 5 mL 5 mL, Intravenous, 2 TIMES DAILY, First dose on Sun08/15/21 at 2100, Until Discontinued, Recovery (Recovery-Hospital Unit), Routine Given 08/16/2021 1:00 PM EDT 5 mLs Given 08/15/2021 8:06 PM EDT 5 mLs sodium chloride 0.9% infusion 50 mL/hr, Intravenous, CONTINUOUS, Starting on Sun08/15/21 at 1530, Until Sun08/15/21 at 1553, Recovery (Recovery-Hospital Unit) New Bag 08/15/2021 3:02 PM EDT 50 mL/hr 50 mL/ hr sugammadex (Bridion) 100 mg/mL injection 120 mg 120 mg (rounded from 123.6 mg = 2 mg/kg/dose ? 61.8 kg), Intravenous, ONCE, 1 dose, On Sun08/15/21 at 1230, Routine Given 08/15/2021 12:30 PM EDT 120 mg documented in this encounter Active and Recently Administered Medications Times are shown in EDT. Scheduled Medication Order 08/14/2021 08/15/2021 08/16/2021 acetaminophen (Tylenol) tablet 1,000 mg (CANCELED) 1,000 mg, Oral, EVERY 6 HOURS SCHEDULED, First dose on Sun08/15/21 at 1800, Until Discontinued, Maximum dose of acetaminophen is 4000 mg from all sources in 24 hours. When ordered for pain, acetaminophen should be given even when other ordered pain medications are indicated. Please crush and dissolve in water, Recovery (Recovery-Hospital Unit), Routine 1830 (Given - Provider: Rolan Funez RN)2332 (Given - Provider: Rajani Epps, PAULETTE) 0600 (Not Given - Provider: Rajani Epps RN - Reason: NPO - Comment: NPO for procedure)1200 (Not Given - Provider: Angela Paige RN - Reason: NPO) buPROPion (Wellbutrin) tablet 75 mg 75 mg, Oral, 2 TIMES DAILY, First dose on Sun08/15/21 at 2100, Until Discontinued, Please crush and dissolve, Routine 2004 (Given - Provider: Rajani Epps RN) 0900 (Not Given - Provider: Angela Paige RN - Reason: NPO) citalopram (CeleXA) tablet 20 mg 20 mg, Oral, DAILY, First dose on Sun08/15/21 at 1530, Until Discontinued, Please crush and dissolve in water, Routine 1528 (Given - Provider: Rolan Funez RN) 0900 (Not Given - Provider: Angela Paige RN - Reason: NPO) clindamycin (Cleocin) 900 mg in dextrose 5% 50 mL infusion (COMPLETED) 900 mg, Intravenous, SALES COACH TO O.R., 1 dose, On Sun08/15/21 at 0715, Administer over 30 Minutes, Do not exceed 30 mg/minute., Intra-Operative (Intra-Procedure), Indication for (Active or Suspected): Prophylaxis 0801 (Given - Provider: Jacinto Cardoso MD) docusate sodium (Colace) (10 mg/mL) oral liquid 100 mg 100 mg, Oral, 3 TIMES DAILY, First dose on Sun08/15/21 at 1530, Until Discontinued, Routine 1528 (Given - Provider: Rolan Funez RN)2100 (Not Given - Provider: Rajani Epps RN - Reason: Patient/family refused) 0900 (Not Given - Provider: Angela Paige RN - Reason: NPO)1515 (Given - Provider: Angela Paige RN) fenofibrate micronized (Lofibra) capsule 67 mg 67 mg, Oral, DAILY WITH BREAKFAST, First dose on Sun08/16/21 at 0800, Until Discontinued, Please dissolve in water 0800 (Not Given - Provider: Rolan Funez RN - Reason: NPO) heparin (porcine) (5,000 units/1 mL) subcutaneous injection 5,000 Units (COMPLETED) 5,000 Units, Subcutaneous, SALES COACH TO O.R., 1 dose, On Sun08/15/21 at 0715, Not within 60 minutes of placing epidural catheter., Day of Surgery (Day of Procedure), Routine 0704 (Given - Provider: Jojo Regan RN) heparin (porcine) (5,000 units/1 mL) subcutaneous injection 5,000 Units 5,000 Units, Subcutaneous, EVERY 8 HOURS SCHEDULED, First dose on Sun08/15/21 at 1500, Until Discontinued, Routine 1508 (Given - Provider: Rolan Funez RN)2332 (Given - Provider: Rajani Epps RN) 0650 (Given - Provider: Rajani Epps RN)1513 (Given - Provider: Angela Paige RN) iohexoL (Omnipaque) (300 mg/mL) injection solution 100 mL (COMPLETED) 100 mL, Oral, ONCE, 1 dose, On Sun08/16/21 at 1445, Warning Vesicant/Irritant Medication , Routine 1445 (Given - Provid er: Rosemary Varner - Comment: Apr [id number]) ipratropium (Atrovent) 0.02 % nebulizer solution 0.5 mg 0.5 mg, Nebulization, EVERY 6 HOURS, First dose on Sun08/15/21 at 1530, Until Discontinued, Routine 1502 (Given - Provider: Rolan Funez RN)2131 (Given - Provider: Rajani Epps RN) 0333 (Given - Provider: Rajani Epps RN)0855 (Given - Provider: Rolan Funez, PAULETTE)1513 (Given - Provider: Angela Paige, PAULETTE) lactated Ringers 500 mL IV bolus (COMPLETED) at 250 mL/hr, Intravenous, ONCE, 1 dose, On Sun08/16/21 at 1315 1257 (New Bag - Provider: Rolan Funez RN)1457 (Stopped - Provider: Rolan Funez RN) metoprolol tartrate (Lopressor) tablet 25 mg 25 mg, Oral, EVERY 12 HOURS SCHEDULED (2 times per day), First dose on Sun08/15/21 at 2100, Until Discontinued, Please crush and dissolve, Routine 2004 (Given - Provider: Rajani Epps RN) 0900 (Not Given - Provider: Angela Paige RN - Reason: NPO) pantoprazole (Protonix) injection 40 mg 40 mg, Intravenous, DAILY, First dose on Sun08/15/21 at 1530, Until Discontinued 1528 (Given - Provider: Rolan Funez RN) 0855 (Given - Provider: Rolan Funez RN) sennosides (Senokot) (1.76 mg/mL) oral liquid 8.8 mg 8.8 mg, Oral, 2 TIMES DAILY, First dose on Sun08/16/21 at 2100, Until Discontinued, Routine sodium chloride 0.9 % (flush) (BD PosiFlush Normal Saline 0.9) flush 5 mL 5 mL, Intravenous, 2 TIMES DAILY, First dose on Sun08/15/21 at 2100, Until Discontinued, Recovery (Recovery-Hospital Unit), Routine 2005 (Given - Provider: Rajani Epps RN) 1300 (Given - Provider: Rolan Funez RN) sugammadex (Bridion) 100 mg/mL injection 120 mg (COMPLETED) 120 mg (rounded from 123.6 mg = 2 mg/kg/dose ? 61.8 kg), Intravenous, ONCE, 1 dose, On Sun08/15/21 at 1230, Routine 1230 (Given - Provider: Nadeen Chan MD) Continuous Medication Order 08/14/2021 08/15/2021 08/16/2021 lactated ringers infusion (CANCELED) 1,000 mL, at 100 mL/hr, Intravenous, CONTINUOUS, Starting on Sun08/15/21 at 0715, Until Sun08/15/21 at 1428, Day of Surgery (Day of Procedure) 0733 (New Bag - Provider: Jojo Regan RN)0810 (Paused - Provider: Jacinto Cardoso MD - Comment: Switch to gravity)0811 (Restarted - Provider: Jacinto Cardoso MD)0831 (Anesthesia Volume Adjustment - Provider: Jacinto Cardoso MD)0924 (Anesthesia Volume Adjustment - Provider: Jacinto Cardoso MD)1009 (Anesthesia Volume Adjustment - Provider: Jacinto Cardoso MD) sodium chloride 0.9% infusion (CANCELED) 50 mL/hr, Intravenous, CONTINUOUS, Starting on Sun08/15/21 at 1530, Until Sun08/15/21 at 1553, Recovery (Recovery-Hospital Unit) 1502 (New Bag - Provider: Rolan Funez RN) PRN Medication Order 08/14/2021 08/15/2021 08/16/2021 acetaminophen (Tylenol) (32.02 mg/mL) oral liquid 650 mg 650 mg, Oral, EVERY 4 HOURS PRN, Starting on Sun08/16/21 at 1706, Until Sun08/16/21 at 2026, Fever, Maximum dose of acetaminophen is 4000 mg from all sources in 24 hours. When ordered for pain, acetaminophen should be given even when other ordered pain medications are indicated. , Routine albuteroL (Proventil) nebulizer solution 2.5 mg 2.5 mg, Nebulization, EVERY 4 HOURS PRN, Starting on Sun08/15/21 at 1436, Until Sun08/16/21 at 2026, Wheezing, Routine BUpivacaine (pf) (Marcaine) (5 mg/mL) 0.5% injection (CANCELED) ONCE PRN, Starting on Sun08/15/21 at 0853, Until Sun08/16/21 at 2026, Intra-Operative (Intra-Procedure), Routine 0853 (Given - Provider: Pantera Cárdenas MD) HYDROmorphone (Dilaudid) (2 mg/mL) multi-dose injection solution 0.2 mg (CANCELED)(Linked Group 1) 0.2 mg, Intravenous, EVERY 10 MIN PRN, Starting on Sun08/15/21 at 1143, Until Sun08/15/21 at 1428, Pain, For Mild to Moderate Pain (1-5 out of 10), Hold for respiratory rate less than 10 per minute. Maximum dose 3 mg over one hour including administrations in the OR. If multiple pain medications are ordered, start with HYDROmorphone or morphine and use fentaNYL for breakthrough pain, PACU Recovery, Routine 1216 (Given - Provider: Mino Perez RN) lidocaine (Xylocaine) 1% (10 mg/mL) injection 3 mg 3 mg (0.3 mL), Subcutaneous, ONCE PRN, 1 dose, Starting on Sun08/15/21 at 1436, Until Sun08/16/21 at 2026, for discomfort with PIV insertion, Recovery (Recovery-Hospital Unit), Routine sodium chloride 0.9 % (flush) (BD PosiFlush Normal Saline 0.9) flush 5-20 mL 5-20 mL, Intravenous, EVERY 1 MIN PRN, Starting on Sun08/15/21 at 1436, Until Sun08/16/21 at 2026, flush, Flush pertains to all indwelling lines. Flush per protocol found in the job aid using the link provided on this medication record., Recovery (Recovery-Hospital Unit), Routine Linked Groups Order Group 1: HYDROmorphone (Dilaudid) (2 mg/mL) multi-dose injection solution 0.2 mg (CANCELED)Jump to med 0.2 mg, Intravenous, EVERY 10 MIN PRN, Starting on Sun08/15/21 at 1143, Until Sun08/15/21 at 1428, Pain, For Mild to Moderate Pain (1-5 out of 10), Hold for respiratory rate less than 10 per minute. Maximum dose 3 mg over one hour including administrations in the OR. If multiple pain medications are ordered, start with HYDROmorphone or morphine and use fentaNYL for breakthrough pain, PACU Recovery, Routine Or HYDROmorphone (Dilaudid) (2 mg/mL) multi-dose injection solution 0.4 mg (CANCELED) 0.4 mg, Intravenous, EVERY 10 MIN PRN, Starting on Sun08/15/21 at 1143, Until Sun08/15/21 at 1428, Pain, For Moderate to Severe Pain (6-10 out of 10), Hold for respiratory rate less than 10 per minute. Maximum dose 3 mg over one hour including administrations in the OR. If multiple pain medications are ordered, start with HYDROmorphone or morphine and use fentaNYL for breakthrough pain, PACU Recovery, Routine documented in this encounter Additional Health Concerns Infection Onset Date Last Indicated Resolved Time Rule Out COVID-19 08/15/2021 08/15/2021 08/15/2021 1:47 PM EDT documented as of this encounter Care Teams Cycle Consultant Relationship Specialty Start Date End Date Patricia Garza APRN [id number] [place] [address] PCP - General Internal Medicine 04/02/20 documented as of this encounter
--- OUTSIDE RECORDS SUMMARY | 2024-06-03 01:48 | XMS_ITS | Encounter Summary ---
[place] [address] Care Team Providers Care Director Of Housing Name Role Phone Patricia Garza APRN Primary Care Provider Reason for Visit * Auth/Cert Specialty Diagnoses / Procedures Referred By Amanuel centeno Referred To Contact Diagnoses Paraesophageal hernia Atrial fibrillation with rapid ventricular response Postoperative vomiting Referral ID Status Reason Start Date Expiration Date Visits Re quested Visits Authorized [id number] 1 1 Encounter Details Date Type Department Care Team (Late st Contact Info) Description 08/15/2021 7:36 AM EDT Anesthesia Event [place] [address] Radha Brito MD [facility] [place] [address] Jacinto Cardoso MD [facility] [place] [address] Anesthesia Record Procedure Summary Procedure Name Responsible Anesthesiologist Anesthesia Start Time Anesthesia Stop Time ROBOT XI LAPAROSCOPIC PARAESOPHAGEAL HERNIA REPAIR W/FUNDOPLASTY,W/O MESH (WRVU 26.6) (Abdomen) Radha Brito MD 08/15/21 0736 08/15/21 113 6 Events Date Time Event Comment 08/15/2021 0722 0736 AN Verify 0736 Start 0736 An Start Data 0744 An Induction 0748 An Intubation 0755 Anesthesia Ready 0819 Procedure Start 0942 Break/Relief In I assumed ca re for Break Relief before which we: 1. Identified the patient 2. Identified the responsible provider(s) 3. Reviewed the pertinent medical history 4. Discussed the surgical plan and course 5. Reviewed intra-op anesthesia management and issues during anesthesia 6. Set expectations for the relief (and/or post-procedure) period 7. Allowed opportunity for questions and acknowledgement of understanding MAYE THOMAS, AVERY 0959 Break/Relief Out 1123 Extubation/LMA Out 1123 an stop data 1136 Recovery or ICU Handoff Lora ent care was transferred to the destination unit staff after review of the patient's medical history, current anesthetic/surgical status and plan, according to the Provider Handoff Checklist. 1136 Stop Meds Name Total fentaNYL 100 mcg IV Lidocaine 80 mg Propofol 110 mg Rocuronium 80 mg PHENYLephrine 320 mcg ePHEDrine 30 mg Dexamethasone 8 mg Ondansetron 4 mg Neostigmine 2 mg Glycopyrrolate 0.4 mg clindamycin (Cleocin) 900 mg in dextrose 5% 50 mL infusion 900 mg lactated ringers infusion 600 mL Lactated Ringers 1,000 mL * Agents Name O2 Air N2O Sevoflurane (et) * Blood No blood administrations on file. Lines, Drains, and Airways Type Details Placement Removal Urethral Catheter 08/15/21; Abdominal surgery, Surgery longer than 2 hours, Physician order; indwelling catheter with core temperature probe; 14; inserted at this facility; 1; 5; 14; none; 08/15/21; 1710 08/15/21 0000 by Evangleina Vogel RN 08/15/21 1710 by Rolan Funez, RN (RETIRED) Peripheral IV Line - Single Lumen 08/15/21; 0730; median cubital vein (antecubital fossa), left; [id number] catheter system; 22 gauge, 1 in length; Tete Vasquez MD; intradermal injection, tolerated well; 4; no longer indicated, catheter/device intact, removed per policy/procedure; 08/16/21; 1604 08/15/21 0730 by Jojo Regan RN 08/16/21 1604 by Stephania Gee LPN ETT Mask Ventilation: Adjunct (2); ETT Type: Cuffed, Oral; ETT Size: 8.5 mm; Mac Blade: 3; Attempts: 1; Laryngoscopy Grade: 1; ETT Placement Verified By: Capnometry, Visual; Inserted by: Walker PARISH; Removal Date: 08/15/21; Removal Time: 1123 08/15/21 0748 by Jacinto Cardoso MD 08/15/21 1123 by Jacinto Cardoso MD (RETIRED) Peripheral IV Line - Single Lumen 08/15/21; 0803; dorsal arch vein (top of hand), right; [id number] catheter system; Anatomical Landmarks; 18 gauge; no longer indicated, catheter/device intact, removed per policy/procedure; 08/16/21; 1604 08/15/21 0803 by Jacinto Cardoso MD 08/16/21 1604 by Stephania Gee LPN Incision 08/15/21; 0820; anterior; abdomen; laparoscopic punctures (specify); 10/25/21; 1502 (not present. Old LDA) 08/15/21 0820 by Evangelina Vogel, RN 10/25/21 1502 by Prabha Stephens, RN documented in this [...] OR Notes * Anesthesia Postprocedure Evaluation - Jacinto Cardoso MD - 08/15/2021 11:35 AM EDT Department of Anesthesiology Post-procedure Note Patient: Linda Fuller Procedure Summary Date: 08/15/21 Room / Location: [facility] OR [facility] MAIN OR Anesthesia Start: 735 Anesthesia Stop: Procedures: ROBOT XI LAPAROSCOPIC PARAESOPHAGEAL HERNIA REPAIR W/FUNDOPLASTY,W/O MESH (WRVU 26.6) (N/A Abdomen) MODIFIER ROBOT,DAVINCI XI (N/A ) EGD, UPPER GI ENDOSCOPY (N/A Esophagus) Diagnosis: Hiatal hernia (Giant paraesophageal hernia) Surgeons: Hal Marroquin MD Responsible Provider: Radha Brito MD Anesthesia Type: general ASA Status: 3 All Anesthesia Providers: Anesthesiologist: Radha Brito MD Transport Engineer: Jacinto Cardoso MD Vitals Value Taken Time BP 159/74 08/15/21 1130 Temp Pulse 77 08/15/21 1135 Resp 34 08/15/21 1135 SpO2 99 % 08/15/21 1135 Pain Level Vitals shown include unvalidated device data. Patient Location: PACU/[facility] Level of Consciousness: Conscious but Sleepy Pain Management: Satisfactory Analgesia PONV: None Cardiovascular Status: At Baseline and Hemodynamically Stable Respiratory Status: At Baseline, Room Air and Supplemental O2 (NC or FM) Postoperative Fluid Status: Intravascular EUvolemia Possible Anesthetic Complications: NONE apparent at time of evaluation Final Primary Anesthesia Type: General (The anesthetic type performed was the same as planned.) Comments: Jacinto Cardoso MD * Anesthesia Preprocedure Evaluation - Radha Brito MD - 08/14/2021 6:24 PM EDT Pre-Anesthesia Evaluation for: Linda Fuller a 81 y.o. female. Procedure(s): ROBOT XI LAPAROSCOPIC PARAESOPHAGEAL HERNIA REPAIR W/FUNDOPLASTY,W/O MESH (WRVU 26.6) MODIFIER ROBOT,DAVINCI XI EGD, UPPER GI ENDOSCOPY BRONCHOSCOPY, DIAGNOSTIC (WRVU 2.78) Patient Active Problem List Diagnosis ??? Anticoagulant long-term use ??? Cough [...] JOINT REPLACEMENT Right ??? JOINT REPLACEMENT Left Social History Tobacco Use ??? Smoking status: Former Smoker Packs/day: 1.00 Years: 15.00 Pack years: 15.00 Types: Cigarettes ??? Smokeless tobacco: Never Used ??? Tobacco comment: quit 40 yrs ago Substance Use Topics ??? Alcohol use: Not Currently Social History Substance and Sexual Activity Drug Use Never Allergies Allergen Reactions ??? Pcn [Penicillins] Other (See Comments) Arms swell up ??? Sulfa (Sulfonamide Antibiotics) Nausea And Vomiting Medications: MAR and/or home medications have been reviewed. Physical Exam: Preprocedure Vitals Current as of 08/14/21 1824 No BP, pulse, respiration, SpO2, or temperature recorded. Height: 145.5 cm (4' 9.28) (06/07/21) Weight: 65.6 kg (144 lb 9.6 oz) (06/07/21) BMI: 30.98 IBW: 36 kg (79 lb 7.1 oz) Airway Assessment: Mallampati: II TM distance: >3 FB Neck ROM: full Cardiovascular Assessment: Rhythm: irregular Rate: normal Pulmonary Assessment: unlabored breathing Dental Assessment: (+) edentulous Misc Assessment: Last Filed Perioperative Cognitive Screening None Anesthesia Plan: ASA 3 general, with a(n) intravenous induction 81 y.o., 65 kg (BMI 30) female with paraesophageal hernia presenting for robotic repair. PMH significant for HTN (on metoprolol and amlodipine), HLD, hx of CVA (02/2020), Afib on elliquis, GERD on omeprazole, COPD, former 15 pack year smoker. Anesthetic hx: No reported prior complications with anesthesia, prior cholecystectomy Airway hx: no records EK05/2021: Sinus ace CT Angio Coronaries (07/2021): Coronary calcium score of 18, consistent with mild atherosclerotic plaque burden and 18%-ile rank based on age, race/ethnicity, and gender. ?? Single small focus of calcified atherosclerotic plaque in the proximal LAD. Luminal narrowing is less than 50%. CAD RADS 2 (mild, nonobstructive coronary artery disease) Lab Results Component Value Date HGB 13.4 08/05/2021 PLATELET 295 08/05/2021 NA 139 08/05/2021 K 3.7 08/05/2021 CREATININE 1.05 08/05/2021 Allergies: -- Pcn (Penicillins) -- Other (See Comments) -- Arms swell up -- Sulfa (Sulfonamide Antibiotics) -- Nausea And Vomiting NPO Status: Appropriate Anesthetic Plan: GA with ETT Standard ASA monitoring Adequate IV access, +/- arterial line Region - Intrathoracic Non-Cardiac Informed Consent: Anesthesia Screening documented in this encounter Plan of Treatment Not on file documented as of this encounter Visit Diagnoses Not on filedocumented in this encounter Administered Medications Inactive Administered Medications - up to 3 most recent administrations Medication Order MAR Action Action Date Dose Rate Site clindamycin (Cleocin) 900 mg in dextrose 5% 50 mL infusion 900 mg, Intravenous, SUPERVISOR BODY ASSEMBLY TO O.R., 1 dose, On Sun08/15/21 at 0715, Administer over 30 Minutes, Do not exceed 30 mg/minute., Intra-Operative (Intra-Procedure), Indication for (Active or Suspected): Prophylaxis Given 08/15/2021 8:01 AM EDT 900 mg dexamethasone (Decadron) injection Intravenous, PRN, Starting on Sun08/15/21 at 0806, Until Sun08/15/21 at 1136, Anesthesia Intra-op, Routine Given 08/15/2021 8:06 AM EDT 8 mg ePHEDrine sulfate (5 mg/mL) multi-dose injection Intravenous, PRN, Starting on Sun08/15/21 at 0826, Until Sun08/15/21 at 1136, Anesthesia Intra-op, Routine Given 08/15/2021 10:03 AM EDT 5 mg Given 08/15/2021 10:00 AM EDT 5 mg Given 08/15/2021 9:57 AM EDT 5 mg fentaNYL (pf) (50 mcg/mL) multi-dose injection Intravenous, PRN, Starting on Sun08/15/21 at 0744, Until Sun08/15/21 at 1136, Anesthesia Intra-op, Routine Given 08/15/2021 7:47 AM EDT 25 mcg Given 08/15/2021 7:44 AM EDT 50 mcg Given 08/15/2021 7:41 AM EDT 25 mcg glycopyrrolate (Robinul) (0.2 mg/mL) multi-dose injection Intravenous, PRN, Starting on Sun08/15/21 at 1050, Until Sun08/15/21 at 1136, Anesthesia Intra-op, Routine Given 08/15/2021 10:50 AM EDT 0.4 mg lactated ringers infusion 1,000 mL, at 100 mL/hr, Intravenous, CONTINUOUS, Starting on Sun08/15/21 at 0715, Until Sun08/15/21 at 1428, Day of Surgery (Day of Procedure) Restarted 08/15/2021 8:11 AM EDT New Bag 08/15/2021 7:33 AM EDT 1,000 mLs 100 mL/hr lactated ringers infusion Intravenous, CONTINUOUS PRN, Starting on Sun08/15/21 at 0812, Until Sun08/15/21 at 1136, Anesthesia Intra-op New Bag 08/15/2021 10:36 AM EDT New Bag 08/15/2021 8:12 AM EDT lidocaine (pf) (Xylocaine) (20 mg/mL) 2% injection syringe Intravenous, PRN, Starting on Sun08/15/21 at 0744, Until Sun08/15/21 at 1136, Anesthesia Intra-op, Routine Given 08/15/2021 7:44 AM EDT 80 mg neostigmine (Bloxiver) (1 mg/mL) injection Intravenous, PRN, Starting on Sun08/15/21 at 1050, Until Sun08/15/21 at 1136, Anesthesia Intra-op, Routine Given 08/15/2021 10:50 AM EDT 2 mg ondansetron (pf) (Zofran) (2 mg/mL) injection Intravenous, PRN, Starting on Sun08/15/21 at 1050, Until Sun08/15/21 at 1136, Anesthesia Intra-op, Routine Given 08/15/2021 10:50 AM EDT 4 mg PHENYLephrine in NS (PF) (TAMIR-SYNEPHRINE) 0.8 mg/10 mL (80 mcg/mL) multi-dose injection Syrg Intravenous, PRN, Starting on Sun08/15/21 at 0807, Until Sun08/15/21 at 1136, Anesthesia Intra-op, Routine Given 08/15/2021 10:03 AM EDT 80 mcg Given 08/15/2021 10:00 AM EDT 80 mcg Given 08/15/2021 8:09 AM EDT 80 mcg propofoL (Diprivan) 10 mg/mL bolus injection (Anesthesia) Intravenous, PRN, Starting on Sun08/15/21 at 0744, Until Sun08/15/21 at 1136, Anesthesia Intra-op Given 08/15/2021 10:13 AM EDT 30 mg Given 08/15/2021 7:44 AM EDT 80 mg rocuronium (Zemuron) (10 mg/mL) multi-dose injection Intravenous, PRN, Starting on Sun08/15/21 at 0744, Until Sun08/15/21 at 1136, Anesthesia Intra-op, Routine Given 08/15/2021 10:17 AM EDT 10 mg Given 08/15/2021 8:45 AM EDT 20 mg Given 08/15/2021 7:44 AM EDT 50 mg documented in this encounter Care Teams Director Of Housing Relationship Specialty Start Date End Date Patricia Garza, LAZARA [address] [place] [address] PCP - General Internal Medicine 04/02/20 documented as of this encounter
--- OUTSIDE RECORDS SUMMARY | 2024-06-03 01:48 | XMS_ITS | Encounter Summary ---
Author [place] [address] Care Team Providers Care Specimen Collector Name Role Phone Patricia Garza APRN Primary Care Provider [phone] Reason for Visit * Reason Comments Medication Refill Encounter Details Date Type Department Care Team (Late st Contact Info) Description 08/30/2021 Refill [place] [address] Hal Marroquin MD [facility] [place] [address] Social History Tobacco Use Types Packs/Day Years [...] on filedocumented in this encounter Care Teams Specimen Collector Relationship Specialty Start Date End Date Patricia Garza APRN [address] [place] [address] PCP - General Internal Medicine 04/02/20 documented as of this encounter
--- OUTSIDE RECORDS SUMMARY | 2024-06-03 01:48 | XMS_ITS | Encounter Summary ---
[place] [address] Care Team Providers Care Pot Fireman Name Role Phone Patricia Garza APRN Primary Care Provider [phone] Encounter Details Date Type Department Care Team (Latest Contact Info) Description 08/05/2021 9:55 AM EDT Laboratory Appointment Lab [address] [place] [address] Atrial fibrillation, unspecified type; Hiatal hernia Social History Tobacco Use Types Packs/Day Years [...] Procedure Name Priority Date/Time Associated Diagnosis Comments HEMOGRAM Routine 08/05/2021 9:50 AM EDT Atrial fibrillation, unspecified type Hiatal hernia DIFFERENTIAL, AUTOMATED Routine 08/05/2021 9:50 AM EDT Atrial fibrillation, unspecified type Hiatal hernia HC CBC,PLT & AUTO DIFF Routine 08/05/2021 9:50 AM EDT Atrial fibrillation, unspecified type Hiatal hernia HC VENIPUNCTURE Routine 08/05/2021 9:50 AM EDT Atrial fibrillation, unspecified type Hiatal hernia documented in this encounter Results * (ABNORMAL) Differential, Automated (08/05/2021 9:50 AM EDT) Neutrophil % 71.9 % [facility] Neutrophil Absolute 5.62 1.70 - 6.10 x10(3)/mc L [facility] Lymph % 15.7 % [facility] Lymphocytes Abs 1.2 0.9 - 3.2 x10(3)/mc L [facility] Monocyte % 8.0 % [facility] Monocyte Abs 0.6 0.3 - 0.9 x10(3)/mc L [facility] Eos % 2.8 % [facility] Eosinophils Abs 0.2 0.0 - 0.4 x10(3)/mc L [facility] Basophil % 1.0 % [facility] Baso Absolute 0.1 0.0 - 0.1 x10(3)/mc L [facility] Immature Gran % 0.60 % [facility] Comment: Immature granulocytes(IG's)percentage and absolute count will include metamyelocytes, myelocytes, and promyelocytes. Blood smears from CBCs yielding IG's will be scanned manually for concordance. If this scan disagrees with the automated IG or if promyelocytes are noted, a manual differential will be performed. Immature Gran Absolute 0.05(H) 0.00 - 0.04 x10(3)/mc L [facility] Blood 08/05/2021 9:50 AM EDT 08/05/2021 9:58 AM EDT Narrative Resulting Agency Comment Spec In Lab Hal Marroquin MD HEMATOLOGY ORDERABLE S [facility] [place] [address] * Hemogram (08/05/2021 9:50 AM EDT) [facility] White Blood Cell 7.8 4.0 - 9.5 x10(3)/[facility] Red Blood Cell 4.36 4.00 - 5.21 x10(6)/[facility] Hemoglobin 13.4 11.7 - 15.5 g/dL [facility] Hematocrit 40.3 35.7 - 45.8 % [facility] Mean Cell Volume 92.4 82.6 - 94.4 fL [facility] Mean Cell Hemoglobin 30.7 27.1 - 32.0 pg [facility] Mean Cell Hemoglobin Concentration 33.3 31.7 - 35.0 g/dL [facility] Platelet 295 145 - 357 x10(3)/[facility] RDW Standard Deviation 44.8 37.0 - 46.0 [facility] RDW coefficient of variation 13.2 11.5 - 14.1 % [facility] Mean Platelet Volume 9.5 7.6 - 12.9 [facility] NRBC% auto 0.0 % [facility] NRBC Absolute 0.000 0.000 - 0.000 x10(3)/[facility] Blood 08/05/2021 9:50 AM EDT 08/05/2021 9:58 AM EDT Narrative Resulting Agency Comment Spec In Lab Hal Marroquin MD HEMATOLOGY ORDERABLE S [facility] [place] [address] * (ABNORMAL) Comprehensive metabolic panel (non-fasting) (08/05/2021 9:50 AM EDT) Pathologist [facility] Glucose 96 65 - 199 mg/dL [facility] Comment:Diabetes: >=200 mg/d L plus symptoms Blood Urea Nitrogen 21(H) 8 - 18 mg/dL [facility] Creatinine 1.05 0.70 - 1.20 mg/dL [facility] Sodium 139 135 - 145 mmol/L [facility] Potassium 3.7 3.5 - 5.0 mmol/L [facility] Comment: Please note: ??Patients with WBC >100,000 may have falsely elevated Potassium levels. ??For accurate Potassium quantification in these patients send serum separator tube (gold top) for subsequent determinations. ??Contact the Clinical Chemistry Laboratory if there are any questions. Chloride 104 98 - 107 mmol/L [facility] Carbon Dioxide 28 22 - 31 mmol/L [facility] Anion Gap 7 5 - 15 mmol/L [facility] Calcium 8.8 8.5 - 10.5 mg/dL [facility] Protein, Total 6.4 6.1 - 8.0 g/dL [facility] Albumin 4.0 3.2 - 5.2 g/dL [facility] Aspartate Aminotransferase 9 0 - 30 unit/L [facility] Alanine Aminotransferase 9 0 - 30 unit/L [facility] Alkaline Phosphatase 65 35 - 105 unit/L [facility] Bilirubin, Total 0.2 0.2 - 1.3 mg/dL [facility] Est Glomerular Filtration Rate 49(L) >=60 mL/min/1. 73 m?? [facility] Comment: This patient? s estimated glomerular filtration rate (eGFR) is between 49 mL/min/1.73 m2 (patients with less muscle mass) and 57 mL/min/1.73 m2 (patients with more muscle mass) [...] and symptoms in addition to eGFR. Blood 08/05/2021 9:50 AM EDT 08/05/2021 9:58 AM EDT Narrative Resulting Agency Comment Spec In Lab Hal Marroquin MD CHEMISTRY ORDERABLES [facility] [place] [address] documented in this encounter Visit Diagnoses Diagnosis Atrial fibrillation, unspecified type Hiatal hernia Diaphragmatic hernia without mention of obstruction or gangrene documented in this encounter Care Teams Pot Fireman Relationship Specialty Start Date End Date Patricia Garza, LIGHTING DESIGNER [address] [place] [address] PCP - General Internal Medicine 04/02/20 documented as of this encounter
--- OUTSIDE RECORDS SUMMARY | 2024-06-03 01:48 | XMS_ITS | Encounter Summary ---
Author Organization [facility] Address [address] [facility] [place] [address] Care Team Providers Care Electroencephalograph Technologist Name Role Phone Patricia Garza APRN Primary Care Provider [phone] Encounter Details Date Type Department Care Team (Latest Contact Info) Description 08/30/2021 12:30 PM EDT - 08/30/2021 11:59 PM EDT Hospital Encounter XRay at [address] [place] [place] [id number] Hiatal hernia Discharge Disposition: Home Social History Tobacco Use [...] Release(E.C.) Take 40 mg by mouth daily. sennosides (Senokot) 8.8 mg/5 mL Syrup Take 10 mLs by mouth 2 times daily as needed for up to 10 days. 200 mL 08/30/2021 09/09/2021 potassium phosphate, monobasic, (K-Phos) 500 mg Tablet, Soluble Take 1 tablet by mouth 2 times daily for 14 days. Please crush and dissolve in water. 28 tablet 08/18/2021 09/01/2021 magnesium oxide (Mag-Ox) 400 mg (241.3 mg magnesium) Tablet Take 1 tablet by mouth daily for 14 days. Please crush and dissolve in water 14 tablet 08/18/2021 09/01/2021 documented as of this encounter Plan of Treatment Not on file documented as of this encounter Procedures Procedure Name Priority Date/Time Associated Diagnosis Comments XR CHEST PA AND LATERAL Routine 08/30/2021 12:41 PM EDT Hiatal hernia documented in this encounter [...] who have questions please contact the health geriatric personal care aide that requested your imaging first. ? Narrative 08/30/2021 1:05 PM EDT EXAMINATION: XR [...] patients who have questions please contactthe health geriatric personal care aide that requested your imaging first. Hal Marroquin MD IMG DX ORDERABLES documented in this encounter Visit Diagnoses Diagnosis Hiatal hernia Diaphragmatic hernia without mention of obstruction or gangrene documented in this encounter Care Teams Electroencephalograph Technologist Relationship Specialty Start Date End Date Patricia Garza, LAZARA [address] [facility] [address] PCP - General Internal Medicine 04/02/20 documented as of this encounter
--- OUTSIDE RECORDS SUMMARY | 2024-06-03 01:48 | XMS_ITS | Encounter Summary ---
[place] [address] Care Team Providers Care Laboratory Inspector Name Role Phone Patricia Garza APRN Primary Care Provider [phone] Reason for Visit * Reason Comments Emesis * Auth/Cert Specialty Diagnoses / Procedures Referred By Contac t Referred To Contact Diagnoses Hematemesis Referral ID Status Reason Start Date Expiration Date Visits Re quested Visits Authorized [id number] 1 1 Encounter Details Date Type Department Care Team (Late st Contact Info) Description 10/24/2021 1:00 PM EST - 10/24/2021 1:30 PM EST [place] [address] Houston Mehta MD [facility] [place] [address] EGD, UPPER GI ENDOSCOPY (WRVU 2.09) Social History Tobacco Use Types Packs/Day Years [...] Sign Reading Time Taken Comments Blood Pressure 180/52 10/24/2021 12:32 PM EST Pulse 60 10/24/2021 12:32 PM EST Temperature 36.5 ??C (97.7 ??F) 10/24/2021 12:[address] Respiratory Rate 18 10/24/2021 12:32 PM EST Oxygen Saturation 97% 10/24/2021 12:32 PM EST Inhaled Oxygen Concentration - - Weight 58.3 kg (128 lb 9.6 oz) 10/24/2021 1:00 A M EST Height 149.9 cm (4' 11) 10/23/2021 11:41 AM EST Body Mass Index 25.43 10/23/2021 [...] Hospital Course: Linda Fuller was admitted to [facility] on 10/23/2021via the ED. She was scoped [...] a nurse in the Thoracic Clinic at [phone]. After hours or on weekends oridays please call: [phone] and ask to speak to the Thoracic Surgeon garbage collection supervisor. Diet: You should follow a puree to soft solid diet as tolerated. If you are having trouble eating or keeping food down please call our office. Smoking: If you are a smoker, please avoid smoking. If you are a smoker who needs help quitting, please call the thoracic surgery clinic at [phone]. Follow up appointments: You should follow up [...] the day after the procedure, use an zunj-gcj-lvrvdkq spray to numb your throat. Sucking on [...] occurs, please contact your Doctor. Please call [phone] before 8pm Mon-Fri with problems, questions or concerns. If you call after 8pm or on weekends, call the Hospital at [phone] and ask to speak to the Logging Crew Supervisor garbage collection supervisor and the cylinder machine operator pulp drier will contact that person for you. When should you call for help? Call [phone] anytime you think you may need emergency [...] any problems. Where can you learn more? [facility] View your After Visit Summary and more online at [email or web address] If you would like to provide feedback about your hospital experience, please call the Office of Patient and Family Relations at . If you have received this After Visit Summary in error, please immediately return it in person to the department, or notify the [facility] Privacy Office by calling toll free at between the hours of 8AM and 5PM to arrange for our retrieval of the documents at no cost to you. Content Version: 12.2 ?? 1224-2796 [employer]. Care instructions adapted under license by [facility]. If you have questions about a medical condition or this instruction, always ask your healthcare professional. [employer] disclaims any warranty or liability for your use of this information. Learning About Pureeing Foods What are pureed foods? Puree (say Sharon) is a way to change the texture of solid food so that it is smooth with no lumps and has a texture like pudding. You can puree food in a blender laborer or food service ambassador. Pureed foods are important if you have [...] smaller pieces, and place them in a blender laborer or food service ambassador. You may need to add liquid such as juice or broth to get the right thickness. Adding food or liquid slowly into the blender laborer or food service ambassador will help you get to the right [...] Where can you learn more? Scan the [employer] code or Visit our health information library at [email or web address]/ You can also view health information on EndoInSight, your personal patient account. Log in or sign uptoday. Enter D793 in the search box to learn more about Learning About Pureeing Foods. Current as of: July 06, 2021?Content Version: 13.1 ?? [employer]. Care instructions adapted under license by [facility]. If you have questions about a medical condition or this instruction, always ask your healthcare professional. [employer] disclaims any warranty or liability for your use of this information. Learning About the Diet for Swallowing Problems What are swallowing problems? Difficulty swallowing is also called dysphagia (say Delano-grzegorz). It is most often a sign of [...] one of these types of foods: ? Viir-sn-uthq foods. These are foods that are soft [...] Where can you learn more? Scan the [employer] code or Visit our [employer] information library at [email or web address]/ You can also view health information on EndoInSight, your personal patient account. Log in or sign uptoday. Enter R741 in the search box to learn more about Learning About the Diet for Swallowing Problems. Current as of: April 28, 2021?Content Version: 13.1 ?? [employer]. Care instructions adapted under license by [facility]. If you have questions about a medical condition or this instruction, always ask your healthcare professional. [employer] disclaims any warranty or liability for your use of this information. Provider Contact Information: Primary Care Provider: Patricia Garza APRN [phone] Discharge References/Attachments: Discharge References/Attachments None For questions [...] the day after the procedure, use an dsjq-skk-dgdpiln spray to numb your throat. Sucking on [...] occurs, please contact your Doctor. Please call [phone] before 8pm Mon-Fri with problems, questions or concerns. If you call after 8pm or on weekends, call the Hospital at [phone] and ask to speak to the Logging Crew Supervisor garbage collection supervisor and the cylinder machine operator pulp drier will contact that person for you. When should you call for help? Call [phone] anytime you think you may need emergency [...] any problems. Where can you learn more? [facility] View your After Visit Summary and more online at [email or web address] If you would like to provide feedback about your hospital experience, please call the Office of Patient and Family Relations at . If you have received this After Visit Summary in error, please immediately return it in person to the department, or notify the [facility] Privacy Office by calling toll free at between the hours of 8AM and 5PM to arrange for our retrieval of the documents at no cost to you. Content Version: 12.2 ?? 1179-2375 [employer]. Care instructions adapted under license by [facility]. If you have questions about a medical condition or this instruction, always ask your healthcare professional. [employer], [facility] disclaims any warranty or liability for your use of this information. Learning About Pureeing Foods What are pureed foods? Puree (say Sharon) is a way to change the texture of solid food so that it is smooth with no lumps and has a texture like pudding. You can puree food in a blender laborer or food service ambassador. Pureed foods are important if you have [...] smaller pieces, and place them in a blender laborer or food service ambassador. You may need to add liquid such as juice or broth to get the right thickness. Adding food or liquid slowly into the blender laborer or food service ambassador will help you get to the right [...] Where can you learn more? Scan the [employer] code or Visit our health information library at [email or web address]/dh/ You can also view health information on EndoInSight, your personal patient account. Log in or sign uptoday. Enter D793 in the search box to learn more about Learning About Pureeing Foods. Current as of: July 06, 2021?Content Version: 13.1 ?? [employer]. Care instructions adapted under license by [facility]. If you have questions about a medical condition or this instruction, always ask your healthcare professional. [employer] disclaims any warranty or liability for your use of this information. Learning About the Diet for Swallowing Problems What are swallowing problems? Difficulty swallowing is also called dysphagia (say dxa-WXE-els-uh). It is most often a sign of [...] one of these types of foods: ? Hbyp-jv-edim foods. These are foods that are soft [...] Where can you learn more? Scan the [employer] code or Visit our health information library at [email or web address]/EndoChoice/ You can also view health information on EndoInSight, your personal patient account. Log in or sign uptoday. Enter R741 in the search box to learn more about Learning About the Diet for Swallowing Problems. Current as of: April 28, 2021?Content Version: 13.1 ?? [employer]. Care instructions adapted under license by [facility]. If you have questions about a medical condition or this instruction, always ask your healthcare professional. [employer], [employer] disclaims any warranty or liability for your use of this information. * Patient Instructions* Jacqueline Paul MD - 10/25/2021 10:14 AM EST Call if you have any questions. During normal business hours, Sunday- Sunday 8:00 a.m.-5:00 p.m., please call to speak to a nurse in the Thoracic Clinic at [phone]. After hours or on weekends orholidays please call: [phone] and ask to speak to the Thoracic Surgeon garbage collection supervisor. Diet: You should follow a puree to soft solid diet as tolerated. If you are having trouble eating or keeping food down please call our office. Smoking: If you are a smoker, please avoid smoking. If you are a smoker who needs help quitting, please call the thoracic surgery clinic at [phone]. Follow up appointments: You should follow up [...] completed barium swallow test and evaluation by LUMBER TAILER. Patient A&O x4. VSS on RA, with [...] Paul MD - 10/24/2021 11:27 AM EST [facility] Department of Thoracic Surgery Progress Note Patient Name: Linda Fuller Patient : 1940 Patient Patient Location: [address] [place] [address] Attending Surgeon: PATRICE CÁRDENAS ID: Linda Fuller [...] 26.6) performed by Patrice Cárdenas MD at [facility] MAIN OR ??? PRO UPPER GI ENDOSCOPY, DIAGNOSTIC N/A 08/15/2021 EGD, UPPER GI ENDOSCOPY performed by Patrice Cárdenas MD at [facility] MAIN OR Vitals: Temp: [36.5 ??C (97.7 ??F)-36.7 ??C (98.1 ??F)] Heart Rate: [61-64] Resp: [16-22] BP: (118-184)/(45-102) SpO2: [96 %-99 %] Heart Rate from SpO2: [53 bpm-60 bpm] Wt & BMI By Encounter Date ED to Hosp-Admission (Current) from 10/23/2021 in 4 [facility] Office Visit from 08/30/2021 in Thoracic Surgery at [facility] Weight 58.3 kg (128 lb 9.6 oz) [...] QTC Calculated (Bezet) 491 ms Calculated P [place] 96 degrees Calculated R [place] 27 degrees Calculated T [place] 51 degrees INTERPRETATION Sinus rhythm with 1st [...] Value Ref Range T&S only valid at [facility] Hosp COVID-19 PCR Specimen: Nasopharyngeal Swab Symptoms->Surveillance Result Value Ref Range SARS-CoV-2 RNA PCR Not Detected Not Detected SARS-CoV-2 Source SLIP FILLER Swab Hemogram Result Value Ref Range WBC [...] Paul MD 10/24/2021 Thoracic Surgery Service Pager [phone] documented in this encounter H&P Notes * [...] Paul MD - 10/23/2021 4:00 PM EST [facility] Department of Thoracic Surgery H&P Patient Name: [...] 26.6) performed by Patrice Cárdenas MD at [facility] MAIN OR ??? PRO UPPER GI ENDOSCOPY, DIAGNOSTIC N/A 08/15/2021 EGD, UPPER GI ENDOSCOPY performed by Patrice Cárdenas MD at [facility] MAIN OR Vitals: Temp: [36.6 ??C (97.9 ??F)] Heart Rate: [62-64] Resp: [16-18] BP: (150-171)/(45-78) SpO2: [98 %] Heart Rate from SpO2: -- Wt & BMI By Encounter Date ED from 10/23/2021 in Emergency Department [facility] Office Visit from 08/30/2021 in Thoracic Surgery at [facility] Weight 59 kg (130 lb) 1 10/23/2021 [...] QTC Calculated (Bezet) 491 ms Calculated P [place] 96 degrees Calculated R [place] 27 degrees Calculated T [place] 51 degrees INTERPRETATION Sinus rhythm with 1st [...] Value Ref Range T&S only valid at [facility] Hosp Diagnostics: EKG sinus rhythm with first [...] Paul MD 10/23/2021 Thoracic Surgery Service Pager [phone] documented in this encounter ED Notes * [...] Value Ref Range T&S only valid at [facility] Hosp COVID-19 PCR Specimen: Nasopharyngeal Swab Symptoms->Surveillance Result Value Ref Range SARS-CoV-2 RNA PCR Not Detected Not Detected SARS-CoV-2 Source SLIP FILLER Swab EKG NSR without overlying ischemia prolonged [...] Notes * Initial Assessments - Shirley Schaefer, LUMBER TAILER - 10/25/2021 11:41 AM EST Speech Therapy [...] 10/25/21 (results pending, normal per RN report) LUMBER TAILER consulted for a bedside swallow evaluation. Prior [...] order; OK for a regular diet from LUMBER TAILER standpoint. Diagnosis: Normal oral manipulation of bolus, [...] ?? Alternate liquids and solids No further LUMBER TAILER intervention is warranted while hospitalized. Do not anticipate need from LUMBER TAILER services in discharge location. Plan: Therapy Frequency (LUMBER TAILER Eval): evaluation only Patient / family are in agreement with treatment plan. Total Minutes (Speech Language Pathology): 20 Thank you for this consult with this patient. Please feel free to page me with any questions or concerns. Shirley Schaefer MS, [facility]-LUMBER TAILER Pager: [phone] Speech-Language Pathologist Inpatient Rehabilitation Medicine * Care [...] Daughter is visiting currently but leaving for [place] tomorrow morningFunctional Status: pt is independent with [...] Insurance: N/A Prescription Coverage: YES [place] [address] This plan was formulated with input from patient and team. All are in agreement with plan. Pt admitted as OBSVO. R. (Reji) PAULETTE Vidal RN/CM - Cellphone: [phone] Pager: [phone] Covering Service RN/CM * Initial Assessments - [...] Component Value Date COVID19 Detected (A) 09/04/2020 [id number] Not Detected 10/23/2021 Present on Admission: ??? Hematemesis Hospitalizations Within the Past 30 Days: no previous admission in last 30 days Patient receiving hospital care under Observation status. Admission order reviewed. Primary Insurance on file: MEDICARE Secondary Insurance on file: n/a Primary care provider on file: Patricia Garza APRN [phone] Pharmacy: [facility] [id number] [place] [address] Advance Care Planning: History <no information> -Advanced [...] Daughter is visiting currently but leaving for [place] tomorrow morningFunctional Status: pt is independent with ADLs and most IADLs. She is responsible for all household tasks. She ambulates with a 4WW indoors and cane outdoors. Pt does not drive; uses state provided transportation for appointments and errandsEquipment at home: cane, 4WW, shower seat. Current DME: cane - straight,shower chair (4WW) [address] [facility] [address] Social & Family Supports: Extended Emergency Contact Information Primary Emergency Contact: SANJAY CEBALLOS Address: [facility] [address] [facility] [place] [address] [facility] Relation: Child Secondary Emergency Contact: Narcisa Palumbo Address: [address] [place], [place] [id number] [place] [address] Mobile Relation: Child Current Care Provided by: [...] via car when medically ready. Registered Nurse Manager Of Operations / Punchboard Assembler will continue to follow patient???s progress and remain available if situation changes for coordination of care, psychosocial support and/or discharge planning. RN/CM notes: Pt had used [facility] (referral 07/2021). RN/CM called and patient was discharged from all home care services on 10/05 by meeting goals. Office of Care Management Mayela Vidal RN RN (Jonas)/CM - Cellphone: [phone] Pager: [phone] Covering Service RN/CM * Plan of Care [...] (NBP): Right arm Pulse: 64 62 Resp: Temp: 36.6 ??C (97.9 ??F) TempSrc: Oral [...] M.D. Fellow in Gastroenterology and Hepatology Pager #[phone] 10/23/2021 Associated attestation - Houston Mehta MD [...] documented. Houston Mehta MD Section of Gastroenterology [facility] documented in this encounter Plan of Treatment [...] 7:25 PM EST Upper GI Endoscopy, Diagnostic (71791) 10/24/2021 1:09 PM EST hematemesis UPPER GI ENDOSCOPY Routine 10/24/2021 11 :55 AM EST HC HEMOGRAM STAT 10/24/2021 4:07 AM EST HC PHOSPHORUS, SERUM STAT 10/24/2021 4:07 AM EST HC MAGNESIUM, SERUM STAT 10/24/2021 4 :07 AM EST BASIC METABOLIC PANEL STAT 10/24/2021 4:07 AM EST RAPID COVID-19 PCR ([facility]) STAT 10/23/2021 3:52 PM EST TYPE AND [...] who have questions please contact the health clinical manager home care that requested your imaging first. ? Electronically signed by: Madiha Crawford MD, [facility] ([phone]), at 10/25/2021 11:55 AM Narrative 10/25/2021 11:55 AM EST EXAMINATION: XR FLUORO UPPER GI SERIES CLINICAL HISTORY: regurgitation after PO intake s/p paraesophageal hernia repair Please look at gastric emptying and esophageal motility TECHNIQUE: Single contrast UGI was performed. Fluoroscopic spot films were obtained. A 13 mm barium tablet was administered. Limited examination due to patient mobility. Fluoro time: COMPARISON: Barium swallow 08/16/2021, 04/26/2021, and chest abdomen pelvis CT 01/10/2020 FINDINGS: Fountain Operator imaging: Cholecystectomy clips project over the RIGHT [...] examination due to patient mobility. Fluoro time: COMPARISON: Barium swallow 08/16/2021, 04/26/2021, and chest abdomen pelvisCT 01/10/2020 FINDINGS: Fountain Operator imaging: Cholecystectomy clips project over the RIGHT [...] patients who have questions please contactthe health clinical manager home care that requested your imaging first. Electronically signed by: Madiha Crawford MD, [facility]([phone]), at 10/25/2021 11:55 AM Patrice Cárdenas MD IMG FLUORO ORDERABLE S * (ABNORMAL) Basic Metabolic Panel (non-fasting) (10/25/2021 5:45 AM EST) Glucose 87 65 - 199 mg/dL [facility] Comment:Diabetes: >=200 mg/d L plus symptoms Blood Urea Nitrogen 10 8 - 18 mg/dL [facility] Creatinine 0.68(L) 0.70 - 1.20 mg/dL [facility] Sodium 139 135 - 145 mmol/L [facility] Potassium 3.3(L) 3.5 - 5.0 mmol/L [facility] Comment: Please note: ??Patients with WBC >100,000 may have falsely elevated Potassium levels. ??For accurate Potassium quantification in these patients send serum separator tube (gold top) for subsequent determinations. ??Contact the Clinical Chemistry Laboratory if there are any questions. Chloride 104 98 - 107 mmol/L [facility] Carbon Dioxide 23 22 - 31 mmol/L [facility] Anion Gap 12 5 - 15 mmol/L [facility] Calcium 8.5 8.5 - 10.5 mg/dL [facility] Est Glomerular Filtration Rate 81 >=60 mL/min/1. 73 m?? [facility] Comment: This patient? s estimated [...] In Lab Patrice Cárdenas MD CHEMISTRY ORDERABLES [facility] [place] [address] * (ABNORMAL) Phosphorus (10/25/2021 5:45 AM EST) Phosphorus 2.1(L) 2.5 - 4.5 mg/dL [facility] Blood 10/25/2021 5:45 AM EST 10/25/2021 5:59 AM EST Narrative Resulting Agency Comment Spec In Lab Patrice Cárdenas MD CHEMISTRY ORDERABLES [facility] [place] [address] * Magnesium (10/25/2021 5:45 AM EST) Pathologist [facility] Magnesium 0.87 0.69 - 1.07 mmol/L [facility] Blood 10/25/2021 5:45 AM EST 10/25/2021 5:59 AM EST Narrative Resulting Agency Comment Spec In Lab Patrice Cárdenas MD CHEMISTRY ORDERABLES Performing Organization Address [facility] Co de Phone Number [facility] [place] [address] * Hemogram (10/25/2021 5:45 AM EST) [facility] White Blood Cell 6.4 4.0 - 9.5 x10(3)/[facility]AT[facility] Red Blood Cell 4.26 4.00 - 5.21 x10(6)/[facility] Hemoglobin 12.9 11.7 - 15.5 g/dL [facility] Hematocrit 39.7 35.7 - 45.8 % [facility] Mean Cell Volume 93.2 82.6 - 94.4 [facility] Mean Cell Hemoglobin 30.3 27.1 - 32.0 pg [facility] Mean Cell Hemoglobin Concentration 32.5 31.7 - 35.0 g/dL [facility] Platelet 281 145 - 357 x10(3)/[facility] LABORATORY RDW Standard Deviation 44.8 37.0 - 46.0 [facility] RDW coefficient of variation 13.1 11.5 - 14.1 % [facility] Mean Platelet Volume 9.8 7.6 - 12.9 [facility] NRBC% auto 0.0 % [facility] NRBC Absolute 0.000 0.000 - 0.000 x10(3)/[facility] Blood 10/25/2021 5:45 AM EST 10/25/2021 5:59 AM EST Narrative Resulting Agency Comment Spec In Lab Patrice Cárdenas MD HEMATOLOGY ORDERABLE S Performing Organization Address City/[facility]/ZIP Co de Phone Number [facility] [place] [address] * Green Tube HOLD (10/24/2021 7:25 PM EST) Pathologist [facility] Green Hold Sample in lab. [facility] Blood Venous Draw / Unknown 10/24/2021 7:25 PM EST 10/24/2021 7:32 PM EST Jacqueline Paul MD CHEMISTRY ORDERABLES Performing Organization Address City/[facility] Co de Phone Number [facility] [place] [address] * (ABNORMAL) Hemogram (10/24/2021 7:25 PM EST) [facility] White Blood Cell 5.6 4.0 - 9.5 x10(3)/mc L [facility] Red Blood Cell 3.90(L) 4.00 - 5.21 x10(6)/mc L [facility] Hemoglobin 12.3 11.7 - 15.5 g/dL [facility] Hematocrit 36.6 35.7 - 45.8 % [facility] Mean Cell Volume 93.8 82.6 - 94.4 [facility] Mean Cell Hemoglobin 31.5 27.1 - 32.0 pg [facility] Mean Cell Hemoglobin Concentration 33.6 31.7 - 35.0 g/dL [facility] Platelet 261 145 - 357 x10(3)/mc L [facility] RDW Standard Deviation 45.0 37.0 - 46.0 [facility] RDW coefficient of variation 13.2 11.5 - 14.1 % [facility] Mean Platelet Volume 9.8 7.6 - 12.9 fL [facility] NRBC% auto 0.0 % [facility] NRBC Absolute 0.000 0.000 - 0.000 x10(3)/mc L [facility] Blood 10/24/2021 7:25 PM EST 10/24/2021 7:31 PM EST Narrative Resulting Agency Comment Spec In Lab Patrice Cárdenas MD HEMATOLOGY ORDERABLE S [facility] [place] [address] * UPPER GI ENDOSCOPY (10/24/2021 11:55 AM EST) UPPER GI ENDOSCOPY [facility] Endoscopy Procedure Date: 10/24/2021 11:55 AM ? Patient Name: Linda Fuller ? Date of : 1940 ? Age: 81 ? Order #: [id number] ? Instrument Name: [id number] ? Procedure: ? Upper GI endoscopy Indications: ? Coffee-ground emesis Patient Profile: ? 81 yo F with coffee-grounds emesis ? presents for EGD. Providers: ? Houston Mehta, Shiraz Khan, ? , Addison Patton, Jet Lucas Referring MD: ?Patricia Garza Medicines: ? See the Anesthesia [...] physician, the nurse, the ? anesthesiologist, the manager registration and ? the forklift technician in the procedure room. ? Mental [...] Procedure Code(s): ?? --- Professional --- ? 16189, Esophagogastroduod enoscopy, ? flexible, transoral; diagnostic, ? including collection of specimen(s) ? by brushing or washing, when ? performed (separate procedure) CPT copyright 2019 [employer]. All rights reserved. The codes documented in this report are preliminary and upon flatwork washer review may be revised to meet current compliance requirements. Attending Participation: ? I was present and participated during the entire ? procedure, including non-pimentel portions. ? _ Houston Mehta, 10/24/2021 1:36:21 PM Number of Addenda: 0 Note Initiated On: 10/24/2021 11:55 AM PROVATION 10/24/2021 11:5 5 AM EST Patricia Garza MEDICAL DONATION PROFESSIONAL GENERAL SURGICAL ORD ERABLES PROVATION * (ABNORMAL) Basic Metabolic Panel (non-fasting) (10/24/2021 4:07 AM EST) Glucose 89 65 - 199 mg/dL [facility] Comment:Diabetes: >=200 mg/d L plus symptoms Blood Urea Nitrogen 19(H) 8 - 18 mg/dL [facility] Creatinine 0.87 0.70 - 1.20 mg/dL [facility] Sodium 141 135 - 145 mmol/L [facility] Potassium 3.5 3.5 - 5.0 mmol/L [facility] Comment: Please note: ??Patients with WBC >100,000 may have falsely elevated Potassium levels. ??For accurate Potassium quantification in these patients send serum separator tube (gold top) for subsequent determinations. ??Contact the Clinical Chemistry Laboratory if there are any questions. Chloride 108(H) 98 - 107 mmol/L [facility] Carbon Dioxide 23 22 - 31 mmol/L [facility] Anion Gap 10 5 - 15 mmol/L [facility] Calcium 8.4(L) 8.5 - 10.5 mg/dL [facility] Est Glomerular Filtration Rate 62 >=60 mL/min/1. 73 m?? [facility] Comment: This patient? s estimated [...] In Lab Patrice Cárdenas MD CHEMISTRY ORDERABLES [facility] [place] [address] * (ABNORMAL) Phosphorus (10/24/2021 4:07 AM EST) Phosphorus 2.4(L) 2.5 - 4.5 mg/dL [facility] Blood 10/24/2021 4:07 AM EST 10/24/2021 4:13 AM EST Narrative Resulting Agency Comment Spec In Lab Patrice Cárdenas MD CHEMISTRY ORDERABLES Performing Organization Address [facility]/ZIP Co de Phone Number [facility] [place] [address] * (ABNORMAL) Magnesium (10/24/2021 4:07 AM EST) Pathologist [facility] Magnesium 0.65(L) 0.69 - 1.07 mmol/L [facility] Blood 10/24/2021 4:07 AM EST 10/24/2021 4:13 AM EST Narrative Resulting Agency Comment Spec In Lab Patrice Cárdenas MD CHEMISTRY ORDERABLES Performing Organization Address City/[facility]/ZIP Co de Phone Number [facility] [place] [address] * (ABNORMAL) Hemogram (10/24/2021 4:07 AM EST) Pathologist [facility] White Blood Cell 5.5 4.0 - 9.5 x10(3)/mc L [facility] Red Blood Cell 3.70(L) 4.00 - 5.21 x10(6)/mc L [facility] Hemoglobin 11.6(L) 11.7 - 15.5 g/dL [facility] Hematocrit 35.3(L) 35.7 - 45.8 % [facility] Mean Cell Volume 95.4(H) 82.6 - 94.4 fL [facility] Mean Cell Hemoglobin 31.4 27.1 - 32.0 pg [facility] Mean Cell Hemoglobin Concentration 32.9 31.7 - 35.0 g/dL [facility] Platelet 243 145 - 357 x10(3)/mc L [facility] RDW Standard Deviation 46.9(H) 37.0 - 46.0 fL [facility] RDW coefficient of variation 13.2 11.5 - 14.1 % [facility] Mean Platelet Volume 9.8 7.6 - 12.9 fL [facility] NRBC% auto 0.0 % [facility] NRBC Absolute 0.000 0.000 - 0.000 x10(3)/mc L [facility] Blood 10/24/2021 4:07 AM EST 10/24/2021 4:13 AM EST Narrative Resulting Agency Comment Spec In Lab Patrice Cárdenas MD HEMATOLOGY ORDERABLE S Performing Organization Address City/State/[facility] Co de Phone Number [facility] [place] [address] * COVID-19 PCR (10/23/2021 3:52 PM EST) SARS-CoV-2 RNA (Rapid) Not Detected Not Detected [facility] Comment: This result should be [...] using the Simplexa COVID-19 Direct Assay by MasterImage 3D as authorized by the FDA issued Emergency [...] Department of Pathology and Laboratory Medicine at [facility], certified under the Clinical Laboratory Improvement Amendments [...] fact sheets at the following FDA website: https://www.fda.gov/medical-devices/imrxesukaub-rtbdktk-7716-arqkz-33-jdbnutgmg- use-a dlbikkdorqrxt-gnuuxxe-gdqpuac/uaeog-hnnpkhttoir-mhuk SARS-CoV-2 Source [employer] Swab [facility] Nasopharyngeal Swab 10/23/20 3:52 PM EST 10/23/2021 4:32 PM EST Comment:Symptoms->Surveillan ce Narrative Resulting Agency Comment Spec In Lab Fiona Malave MD MICROBIOLOGY - GENER AL ORDERABLES [facility] [place] [address] * Type and Screen Validity (10/23/2021 1:20 PM EST) T&S only valid at [facility] Comment:This Type and Screen result is only valid at the [facility] Blood 10/23/2021 1:20 PM EST 10/23/2021 1:37 PM EST Narrative Resulting Agency Comment Spec In Lab Sanjay [facility] ORDER VINICIUS [facility] [place] [address] * ABORH Recheck Status (10/23/2021 1:20 PM EST) ABORH Recheck Order Order Placed [facility] ABORH Type Recheck Complete [facility] Blood 10/23/2021 1:20 PM EST 10/23/2021 1:37 PM EST Narrative Resulting Agency Comment Spec In Lab Sanjay [facility] ORDER VINICIUS Performing Organization Address City/[facility]/ZIP Co de Phone Number [facility] [place] [address] * Differential, Automated (10/23/2021 1:20 PM EST) Neutrophil % 67.6 % [facility] Neutrophil Absolute 4.62 1.70 - 6.10 x10(3)/[facility] Lymph % 18.6 % [facility] Lymphocytes Abs 1.3 0.9 - 3.2 x10(3)/[facility] Monocyte % 9.7 % [facility] Monocyte Abs 0.7 0.3 - 0.9 x10(3)/[facility] Eos % 2.6 % [facility] Eosinophils Abs 0.2 0.0 - 0.4 x10(3)/[facility] Basophil % 0.9 % [facility] Baso Absolute 0.1 0.0 - 0.1 x10(3)/[facility] Immature Gran % 0.60 % [facility] Comment: Immature granulocytes(IG's)percentage and absolute count will include metamyelocytes, myelocytes, and promyelocytes. Blood smears from CBCs yielding IG's will be scanned manually for concordance. If this scan disagrees with the automated IG or if promyelocytes are noted, a manual differential will be performed. Immature Gran Absolute 0.04 0.00 - 0.04 x10(3)/mcL [facility] Blood 10/23/2021 1:20 PM EST 10/23/2021 1:37 PM EST Narrative Resulting Agency Comment Spec In Lab Sanjay GALVAN HEMATOLOGY ORDERABLE S [facility] [place] [address] * (ABNORMAL) Hemogram (10/23/2021 1:20 PM EST) White Blood Cell 6.8 4.0 - 9.5 x10(3)/mc L [facility] Red Blood Cell 3.80(L) 4.00 - 5.21 x10(6)/mc L [facility] Hemoglobin 12.0 11.7 - 15.5 g/dL [facility] Hematocrit 35.6(L) 35.7 - 45.8 % [facility] Mean Cell Volume 93.7 82.6 - 94.4 fL [facility] Mean Cell Hemoglobin 31.6 27.1 - 32.0 pg [facility] Mean Cell Hemoglobin Concentration 33.7 31.7 - 35.0 g/dL [facility] Platelet 278 145 - 357 x10(3)/mc L [facility] RDW Standard Deviation 46.2(H) 37.0 - 46.0 fL [facility] RDW coefficient of variation 13.3 11.5 - 14.1 % [facility] Mean Platelet Volume 9.9 7.6 - 12.9 fL [facility] NRBC% auto 0.0 % [facility] NRBC Absolute 0.000 0.000 - 0.000 x10(3)/mc L [facility] Blood 10/23/2021 1:20 PM EST 10/23/2021 1:37 PM EST Narrative Resulting Agency Comment Spec In Lab Sanjay Parks MANDY HEMATOLOGY ORDERABLE S Performing Organization Address [facility] Co de Phone Number [facility] [place] [address] * Antibody screen (10/23/2021 1:20 PM EST) Ab Screen Interp Negative [facility] Expires at [id number] on: 10/26/2021 [facility] Blood 10/23/2021 1:20 PM EST 10/23/2021 1:37 PM EST Narrative Resulting Agency Comment Spec In Lab Sanjay Parks [facility] ORDER VINICIUS Performing Organization Address City/[facility]/ZIP Co de Phone Number [facility] [place] [address] * ABO/Rh Typing (10/23/2021 1:20 PM EST) ABORH Type A Pos [facility] Blood 10/23/2021 1:20 PM EST 10/23/2021 1:37 PM EST Narrative Resulting Agency Comment Spec In Lab Sanjay [facility] ORDER VINICIUS Performing Organization Address [facility] Co de Phone Number [facility] [place] [address] * APTT (10/23/2021 1:20 PM EST) Partial Thromboplastin Time 29 25 - 37 sec [facility] Comment: The PTT is NOT appropriate for heparin monitoring. Use the Anti-Xa level for heparin monitoring (HEP UFH) or LMWH monitoring (HEP LMW). A PTT less than 37 seconds generally indicates adequate hemostasis. Blood 10/23/2021 1:20 PM EST 10/23/2021 1:37 PM EST Narrative Resulting Agency Comment Spec In Lab Fiona Malave MD HEMATOLOGY ORDERABLE S Performing Organization Address [facility] de Phone Number [facility] [place] [address] * (ABNORMAL) Prothrombin Time (10/23/2021 1:20 PM EST) Prothrombin Time 16.3(H) 9.4 - 12.5 sec [facility] International Normalization Ratio 1.4 [facility] Comment: An INR <2.0 indicates [...] MD HEMATOLOGY ORDERABLE S Performing Organization Address [facility] de Phone Number [facility] [place] [address] * Troponin (10/23/2021 1:20 PM EST) Troponin-T <0.01 0.00 - 0.00 ng/mL [facility] Comment: The 99th percentile for Troponin T is less than 0.01 ng/mL, any detectable cTnT concentration using this assay should be considered elevated. According to the third universal definition of myocardial infarction the following criteria with a clinical presentation consistent with acute myocardial ischemia meets the diagnosis for a myocardial infarction (PA). Detection of a rise and/or fall of cTnT, with at least one value greater than the 99th percentile (> or = 0.01) and with at least one of the following ?? Symptoms of ischemia ?? New or presumed new significant [id number] wave (ST-T) changes or new left bundle [...] additional sample may be indicated. Reference: Third [place] Definition of Myocardial Infarction. Journal of the [place] [employer] 2012;60:1581-98 Blood 10/23/2021 1:20 PM EST 10/23/2021 1:37 PM EST Narrative Resulting Agency Comment Spec In Lab Fiona Malave MD CHEMISTRY ORDERABLES [facility] [place] [address] * (ABNORMAL) Comprehensive metabolic panel (non-fasting) (10/23/2021 1:20 PM EST) Glucose 141 65 - 199 mg/dL [facility] Comment:Diabetes: >=200 mg/d L plus symptoms Blood Urea Nitrogen 25(H) 8 - 18 mg/dL [facility] Creatinine 1.10 0.70 - 1.20 mg/dL [facility] Sodium 141 135 - 145 mmol/L [facility] Potassium 3.3(L) 3.5 - 5.0 mmol/L [facility] Comment: Please note: ??Patients with WBC >100,000 may have falsely elevated Potassium levels. ??For accurate Potassium quantification in these patients send serum separator tube (gold top) for subsequent determinations. ??Contact the Clinical Chemistry Laboratory if there are any questions. Chloride 103 98 - 107 mmol/L [facility] Carbon Dioxide 26 22 - 31 mmol/L [facility] Anion Gap 12 5 - 15 mmol/L [facility] Calcium 9.0 8.5 - 10.5 mg/dL [facility] Protein, Total 5.9(L) 6.1 - 8.0 g/dL [facility] Albumin 3.9 3.2 - 5.2 g/dL [facility] Aspartate Aminotransferase 11 0 - 30 unit/L [facility] Alanine Aminotransferase 11 0 - 30 unit/L [facility] Alkaline Phosphatase 59 35 - 105 unit/L [facility] Bilirubin, Total <0.2(L) 0.2 - 1.3 mg/dL [facility] Est Glomerular Filtration Rate 47(L) >=60 mL/min/1. 73 m?? [facility] Comment: This patient? s estimated [...] In Lab Fiona Malave MD CHEMISTRY ORDERABLES Performing Organization Address City/State/[facility] Co de Phone Number [facility] [place] [address] * EKG 12 Lead (10/23/2021 1:14 PM EST) Ventricular rate 61 BPM MUSE SYSTEM Atrial Rate 61 BPM MUSE SYSTEM P-R Interval 210 ms MUSE SYSTEM QRS Duration 90 ms MUSE SYSTEM Q-T Interval 488 ms MUSE SYSTEM QTC Calculated (Bezet) 491 ms MUSE SYSTEM Calculated P [place] 96 degrees MUSE SYSTEM Calculated R [place] 27 degrees MUSE SYSTEM Calculated T [place] 51 degrees MUSE SYSTEM INTERPRETATION Sinus rhythm with 1st degree A-V block Prolonged QT Abnormal ECG When compared with ECG of 17-AUG-2021 07:42, Sinus rhythm has replaced Atrial fibrillation Vent. rate has decreased BY ??70 BPM Nonspecific T wave abnormality no longer evident in Inferior leads Nonspecific T wave abnormality no longer evident in Lateral leads Confirmed by MD Cook Danette ([id number]) on 10/24/2021 3:32:33 PM MUSE SYSTEM 10/23/2021 1:14 PM EST 10/24/2021 3:32 PM EST Fiona Malave MD ECG ORDERABLES MUSE SYSTEM documented in this encounter Visit Diagnoses Not on filedocumented in this encounter Admitting Diagnoses Diagnosis Hematemesis [...] DAILY, First dose (after last modification) on 10/23/21 at 1647, Until Discontinued Given 10/25/2021 9:39 AM EST 40 mg Given 10/24/2021 8:12 PM EST 40 mg Given 10/24/2021 8:35 AM EST 40 mg potassium chloride 10 mEq in sterile water 100 mL infusion 10 mEq, Intravenous, ONCE, 1 dose, On 10/23/21 at 1618, Administer over 60 Minutes, Warning Vesicant/Irritant Medication New Bag 10/23/2021 6:41 PM EST 10 mEq 100 mL/hr sodium chloride 0.9 % (flush) (BD PosiFlush Normal Saline 0.9) flush 5 mL 5 mL, Intravenous, 2 TIMES DAILY, First dose on 10/23/21 at 2100, Until Discontinued, Routine Given 10/25/2021 9:40 AM EST 5 mLs Given 10/24/2021 8:11 PM EST 5 mLs Given 10/24/2021 8:54 AM EST 5 mLs sodium chloride 0.9 % (flush) (BD PosiFlush Normal Saline 0.9) flush 5 mL 5 mL, Intravenous, 2 TIMES DAILY, First dose on 10/23/21 at 2100, Until Discontinued, Routine Given 10/25/2021 9:40 AM EST 5 mLs Given 10/24/2021 8:11 PM EST 5 mLs Given 10/24/2021 8:37 AM EST 5 mLs sodium chloride 0.9 % (flush) (BD PosiFlush Normal Saline 0.9) flush 5-20 mL 5-20 mL, Intravenous, EVERY 1 MIN PRN, Starting on 10/23/21 at 1644, Until 10/25/21 at 1808, flush, Flush pertains to all [...] Claire RN) 0935 (Given - Provider: Prabha Stephens, PAULETTE) magnesium sulfate 2 g in sterile water [...] Until Discontinued 0856 (Given - Provider: Pauline Vickers RN)1230 (DEC Hold - Provider: Admin Adt - Reason: Transfer to a Procedural area)1508 (DEC Unhold - Provider: Admin Adt)1532 (Given - Provider: Pauline Vickers, PAULETTE)2055 (Given - Provider: Silverio Claire RN) 0347 (Given - Provider: Silverio Claire RN)0936 (Given - Provider: Prabha Stephens RN) metoprolol tartrate (Lopressor) tablet 12.5 mg (COMPLETED) [...] modification) on Sun10/23/21 at 1647, Until Discontinued 184 (Given - Provider: Sandi Rebolledo RN) 0835 (Given - Provider: Pauline Vickers RN)1230 (DEC Hold - Provider: Admin Adt - Reason: Transfer to a Procedural area)1508 (DEC Unhold - Provider: Admin Adt)2011 (Given - Provider: Silverio Claire RN) 0939 (Given - Provider: Prabha Stephens RN) potassium chloride 10 mEq in sterile water 100 mL infusion (COMPLETED) 10 mEq, Intravenous, ONCE, 1 dose, On Sun10/23/21 at 1618, Administer over 60 Minutes, Warning Vesicant/Irritant Medication 184 (New Bag - Provider: Sandi Rebolledo RN)194 (Stopped - Provider: Maria Elena Live RN) [...] Claire RN) 0940 (Given - Provider: Prabha Stephens RN) sodium chloride 0.9 % (flush) (BD PosiFlush Normal Saline 0.9) flush 5 mL 5 mL, Intravenous, 2 TIMES DAILY, First dose on Sun10/23/21 at 2100, Until Discontinued, Routine 2020 (Given - Provider: Maria Elena Live RN) 0837 (Given - Provider: Pauline Vickers RN)1230 ([facility] Hold - Provider: Admin Adt - Reason: Transfer to a Procedural area)1508 ([facility] Unhold - Provider: Admin Adt)2010 (Given - Provider: Silverio Claire RN) 0940 (Given - Provider: Prabha Stephens, PAULETTE) Continuous Medication Order 10/23/2021 10/24/2021 10/25/2021 lactated ringers infusion 75 mL/hr, Intravenous, CONTINUOUS, Starting on Sun10/23/21 at 1623, Until Sun10/25/21 at 1808 1841 (New Bag - Provider: Sandi Rebolledo RN) 0653 (New Bag - Provider: Maria Elena Live RN)1230 ([facility] Hold - Provider: Admin Adt - Reason: Transfer to a Procedural area)1508 ([facility] Unhold - Provider: Admin Adt)2099 (New Bag - Provider: Silverio Claire, PAULETTE) 1438 (Stopped - Provider: Prabha Stephens, PAULETTE - Comment: DC orders placed by > REmoved PIV per orders) PRN Medication Order 10/23/2021 10/24/2021 10/25/2021 acetaminophen (Tylenol) tablet 650 mg 650 mg, Oral, EVERY 6 HOURS PRN, Starting on Sun10/23/21 at 1621, Until Sun10/25/21 at 1808, Pain, Maximum dose of acetaminophen is 4000 mg from all sources in 24 hours. When ordered for pain, acetaminophen should be given even when other ordered pain medications are indicated. , Routine 1230 ([facility] Hold - Provider: Admin Adt - Reason: Transfer to a Procedural area)1508 ([facility] Unhold - Provider: Admin Adt) barium sulfate (E-Z Disk) tablet 0-700 mg (COMPLETED) 0-700 mg, Oral, ONCE PRN, 1 dose, Starting on Sun10/25/21 at 0916, Until Sun10/25/21 at 0916, Per Protocol, Radiology Contrast, Routine 915 (Given - Provid er: Mario Francisco - Comment: [id number]:10/2021) barium sulfate (E-Z-HD) 98% oral liquid 0-120 mL (COMPLETED) 0-120 mL, Oral, ONCE PRN, 1 dose, Starting on Sun10/25/21 at 0916, Until Sun10/25/21 at 0917, Per Protocol, Radiology Contrast, Routine 09 (Given - Provid er: Mario Francisco - Comment: [id number]:08/2024 ) barium sulfate (Ezpaque) 60% (w/v) oral liquid 0-710 mL (COMPLETED) 0-710 mL, Oral, ONCE PRN, 1 dose, Starting on Sun10/25/21 at 0916, Until Sun10/25/21 at 0918, Per Protocol, Radiology Contrast, Routine 09 (Given - Provid er: Mario Francisco - Comment: [id number]: 12/2022) ipratropium-albuteroL (Duoneb) 0.5 mg-3 mg(2.5 mg base)/3 mL nebulizer solution 3 mL 3 mL, Nebulization, EVERY 4 HOURS PRN, Starting on Sun10/23/21 at 1621, Until Sun10/25/21 at 1808, Wheezing, Routine 1230 ([facility] Hold - Provider: Admin Adt - Reason: Transfer to a Procedural area)1508 ([facility] Unhold - Provider: Admin Adt) lidocaine (Xylocaine) 1% (10 mg/mL) injection 3 mg 3 mg (0.3 mL), Subcutaneous, ONCE PRN, 1 dose, Starting on Sun10/23/21 at 1621, Until Sun10/25/21 at 1808, for discomfort with PIV insertion, Routine 1230 ([facility] Hold - Provider: Admin Adt - Reason: Transfer to a Procedural area)1508 ([facility] Unhold - Provider: Admin Adt) lidocaine (Xylocaine) 1% (10 mg/mL) injection 3 mg 3 mg (0.3 mL), Subcutaneous, ONCE PRN, 1 dose, Starting on Sun10/23/21 at 1644, Until Sun10/25/21 at 1808, for discomfort with PIV insertion, Routine 1230 ([facility] Hold - Provider: Admin Adt - Reason: Transfer to a Procedural area)1508 ([facility] Unhold - Provider: Admin Adt) sodium chloride 0.9 % (flush) (BD PosiFlush Normal Saline 0.9) flush 5-20 mL 5-20 mL, Intravenous, EVERY 1 MIN PRN, Starting on 10/23/21 at 1621, Until Tu10/25/21 at 1808, flush, Flush pertains to all indwelling lines. Flush per protocol found in the job aid using the link provided on this medication record., Routine 1230 (DEC Hold - Provider: Admin Adt - Reason: Transfer to a Procedural area)1508 ([facility] Unhold - Provider: Admin Adt) sodium chloride 0.9 % (flush) (BD PosiFlush Normal Saline 0.9) flush 5-20 mL 5-20 mL, Intravenous, EVERY 1 MIN PRN, Starting on 10/23/21 at 1644, Until 10/25/21 at 1808, flush, Flush pertains to all indwelling lines. Flush per protocol found in the job aid using the link provided on this medication record., Routine 1230 (DEC Hold - Provider: Admin Adt - Reason: Transfer to a Procedural area)1508 ([facility] Unhold - Provider: Admin Adt) documented in this encounter Care Teams Laboratory Inspector Relationship Specialty Start Date End Date Patricia Garza APRN [address] [place] [address] PCP - General Internal Medicine 04/02/20 documented as of this encounter
--- OUTSIDE RECORDS SUMMARY | 2024-06-03 01:48 | XMS_ITS | Encounter Summary ---
[place] [address] Care Team Providers Care Merchandise Complaint Adjuster Name Role Phone Patricia Garza APRN Primary Care Provider [phone] Encounter Details Date Type Department Care Team (Late st Contact Info) Description 08/22/2021 Telephone [place] [phone] Livier Chaney, RN Social History Tobacco Use [...] Miscellaneous Notes * Telephone Encounter - Livier Chaney, RN - 08/22/2021 3:50 PM EDT Patient is S/P : re-admit follow robotic [facility] on 08/15/21 for emesis on FLD. Found to have a UTI w/oligouria resolved with fluids and antibiotics. D/c home on FLD, Antibiotics, and VNA/PT/OT. Phone call wellness check on Sunday Phone call to Linda to check in and discuss changing her antibiotic. Multiple attempts to reach her number and no answer and no voicemail set up. Phone call to daughter Narcisa, left generic message to call back. Phone call to Sanjay, left generic message to call back. Patient needs to be changed to a different antibiotic as sensitivities were pending. She is currently on Doxycycline and needs to switch to Keflex days. Will continue to try and reach her. Phone call back from daughter Narcisa. Linda is doing much better. She has a minor episode of emesis today, but Narcisa believes that she probably ate too much. Discussed the new antibiotic which theywill olive picker and start tomorrow. D/C doxycycline. They will call with any issues. documented in this encounter Plan of Treatment Not on file documented as of this encounter Visit Diagnoses Not on filedocumented in this encounter Care Teams Merchandise Complaint Adjuster Relationship Specialty Start Date End Date Patricia Garza APRN [address] [place] [address] PCP - General Internal Medicine 04/02/20 documented as of this encounter
--- OUTSIDE RECORDS SUMMARY | 2024-06-03 01:48 | XMS_ITS | Encounter Summary ---
[place] [address] Care Team Providers Care Client Relationship Executive Name Role Phone Patricia Garza APRN Primary Care Provider [phone] Encounter Details Date Type Department Care Team (Latest Contact Info) Description 08/17/2021 Transcribe [place] [address] Lizzette Mccarty MD Pre-operative cardiovascular examination Social History Tobacco Use Types Packs/Day [...] as of this encounter Visit Diagnoses Diagnosis Pre-operative cardiovascular examination documented in this encounter Care Teams Client Relationship Executive Relationship Specialty Start Date End Date Patricia Garza APRN [address] [place] [address] PCP - General Internal Medicine 04/02/20 documented as of this encounter
--- OUTSIDE RECORDS SUMMARY | 2024-06-03 01:48 | XMS_ITS | Encounter Summary ---
Author Organization [facility] [place] [address] Care Team Providers Care Tree Planter Name Role Phone Patricia Garza APRN Primary Care Provider Reason for Visit * Reason Comments Follow Up Surgery Encounter Details Date Type Department Care Team (Latest Contact Info) Description 08/30/2021 1:00 PM EDT Office [place] [address] [address] Cár[address] MD [facility] [place] [address] Paraesophageal hernia Social History Tobacco Use Types Packs/Day [...] Sign Reading Time Taken Comments Blood Pressure 130/58 08/30/2021 12:51 PM EDT Pulse 75 08/30/2021 12:51 PM EDT Temperature 35.9 ??C (96.6 ??F) 08/30/2021 1 2:51 PM EDT Respiratory Rate 16 08/30/2021 12:5 1 PM EDT Oxygen Saturation 96% 08/30/2021 12: 51 PM EDT Inhaled Oxygen Concentration - - Weight 60.2 kg (132 lb 12.8 oz) 021 12:51 PM EDT Height 147.3 cm (4' 10) 08/30/2021 12: 51 PM EDT Body Mass Index 27.76 08/30/2021 12:51 PM EDT documented in this encounter Patient Instructions * Patient Instructions* Livier Chaney RN - 08/30/2021 1:00 PM EDT Thank you for visiting Dr. Cárdenas in clinic 08/30/21 Dr. Cárdenas would like to see you back in clinic with a recent barium swallow study A barium swallow is a test that may be used to determine the cause of painful swallowing, difficulty with swallowing, abdominal pain, bloodstained vomit, or unexplained weight loss. Barium sulfate adryan metallic compound that shows up on X-rays and is used to help see abnormalities in the esophagus and stomach. You will receive a letter in the mail/ receive a call to schedule this appointment. ?? Exercise each day for 30 minutes or longer. Daily aerobic exercise for at least 30 minutes will help improve your endurance and improve the breathing capacity of your lungs. This means that you are breathing hard, your heart is beating fast and that you are sweating. Examples of this include walking, biking, swimming, and using a treadmill or stationary bike. Please call Thoracic surgery at with any questions or concerns. documented in this encounter Progress Notes * Patrice Cárdenas MD - 08/30/2021 1:00 PM EDT Thoracic Surgery Attending Outpatient Follow Up Note Patrice Cárdenas MD [place] [address] FAX: Preoperative diagnosis: Giant paraesophageal hernia ?? Postoperative diagnosis: Giant paraesophageal hernia Procedure (08/15/2021): Robotic assisted laparoscopic repair of giant paraesophageal hernia. Pathology (08/15/2021): Fibromembranous tissue, hernia sac: Gross surgical pathology examination. Complications: <1cm defect identified at muscular wall of esophagus likely due to retraction injury, repaired primarily with interrupted sutures. Readdmitted on POD2 for poor PO tolerance, oliguria and UTI (not catheter related). Treatment: Surveillance HPI: Linda Fuller presents today in follow-up regarding her recent giant paraesophageal herniarepair. Her immediate postoperative course was uneventful. She had a swallow study performed on POD#1 which showed no evidence of leak and narrowing of GEJ 2/2 post-op edema. She was advanced to fullliquids afterwards which she tolerated well. By postoperative day # 1 she had met all criteria for discharge to home. Unfortunately she re-presented to the ED on POD2 due to inability to tolerate PO.She was readmitted to the hospital for intolerance of liquids, most likely due to esophageal inflammation and spasm after her giant paraesophageal hernia repair. ??She was noted to have decreased UO and blood in her urine. UA appeared to show a UTI (not catheter related) and oliguria. ??We suspect that the oliguria is a combination of pre-renal (due to initial poor PO intake) as well as intrinsic(she had a dose of toradol) that resolved with fluids (about 2.5 liters over 24 hours) without any findings of TYRESE (BUN bumped slightly 19-24 and returned down to 20). ??She was discharged home on POD 4 on a course of doxycycline. Her Doxycycline was switched to Levofloxacin at 3 days out for continued symptoms. Today, she reports feeling well after being discharged from the hospital. She is tolerating her FLDwith yogurt, ensure shakes, chicken broth, and apple sauce. She does report some difficulty with larger pills and she has been crushing or breaking the tablets to tolerate them better. She had one episode of emesis after drinking miralax following liquid colace but has had no other episodes of emesis or regurgitation. She is concerned that she is not having regular bowel movements; her last BM was small and happened on Sunday. Otherwise she reports voiding adequately and denies any symptoms of dysuria, frequency, hesitancy. She has been active around the house by sweeping but reports she just started walking in the hallway. She denies f/c/n/v/CP/abd pain/SOB. Medications: Current Outpatient Medications on File Prior to Visit Medication Sig Dispense Refill ??? levoFLOXacin (LEVAQUIN) 500 mg Tablet Take 1 tablet by mouth daily. 10 tablet 0 ??? [] potassium phosphate, monobasic, (K-Phos) 500 mg Tablet, Soluble Take 1 tablet by mouth 2 times daily for 14 days. Please crush and dissolve in water. 28 tablet 0 ??? [] magnesium oxide (Mag-Ox) 400 mg (241.3 mg magnesium) Tablet Take 1 tablet by mouth daily for 14 days. Please crush and dissolve in water 14 tablet 0 ??? vit A/vit C/vit E/zinc/copper (ICAPS AREDS [...] 150 mg by mouth every morning. ??? citalopram (CeleXA) 20 mg Tablet Take 20 mg by mouth daily. ??? denosumab (PROLIA) 60 mg/mL Syringe Inject 60 mg subcutaneously once. ??? fenofibrate (TRICOR) 48 mg Tablet Take 48 mg by mouth daily. ??? metoprolol succinate XL (Toprol-XL) 50 mg Tablet Sustained Release 24 hr Take 50 mg by mouth daily. ??? omeprazole (PriLOSEC) 40 mg Capsule, Delayed Release(E.C.) Take 40 mg by mouth daily. ??? doxycycline (ADOXA) 100 mg Tablet Take 1 tablet by mouth 2 times daily. (Patient not taking: Reported on 08/30/2021) 12 tablet 0 ??? calcium-vitamin D 500 mg(1,250mg) -200 unit Tablet Take 1 tablet by mouth 2 times daily (with meals). ??? fluticasone propionate (FLOVENT) 110 mcg/actuation HFA Aerosol Inhaler Inhale 1 puff into the lungs 2 times daily. No current facility-administered medications on file prior to visit. Physical Exam: BP 130/58 (Patient Position: Sitting) Pulse 75 Temp 35.9 ??C (96.6 ??F) (Temporal) Resp 16 Ht 147.3 cm (4' 10) Wt 60.2 kg (132 lb 12.8 oz) SpO2 96% BMI 27.76 kg/m?? General Appearance: Alert, cooperative, no distress, appears stated age Nk: Supple, symmetrical, trachea midline, no adenopathy Lungs: Clear to auscultation bilaterally, respirations unlabored, no wheezes, crackles or ronchi. Heart: Regular rate and rhythm, S1 and S2 normal, no murmur, rub, or gallop Abdomen: Soft, non-tender, bowel sounds active all four quadrants, no masses, no organomegaly Extremities: Extremities normal, atraumatic, no cyanosis or edema Wound/Incision: Abdominal incisions with dermabond almost degraded off, clean, dry, intact, with evidence of good wound healing Imaging: I have independently visualized the following studies: Barium Swallow (08/16/21): 1. No evidence of esophageal leak or recurrent hernia. 2. Marked narrowing of the gastroesophageal junction with prolonged contrast progression, likely due to postoperative edema. CXR (09/02/21): No acute cardiopulmonary abnormality. Per our read - no evidence of recurrence. Assessment: Linda Fuller is a 81 y.o. female s/p robotic assisted laparoscopic repair of giant paraesophageal hernia. Plan: 1. Okay to advance diet to purees; continue purees for two weeks, then advance to soft solids for additional two weeks as tolerated. 2. Finish antibiotic course (last day 09/02/21) for UTI. 3. 30 minutes of exercise daily at a minimum 4. RTC in 6 months with a barium swallow study 5. Continue to take liquid senna and colace twice daily; additionally take liquid Mg Citrate for constipation and BM. She will call if she cannot have a BM. 6. Follow up with PCP as scheduled 7. Call with questions PATRICE CÁRDENAS MD documented in this encounter Plan of Treatment Not on file documented as of this encounter Visit Diagnoses Diagnosis Paraesophageal hernia Diaphragmatic hernia without mention of obstruction or gangrene documented in this encounter Care Teams Tree Planter Relationship Specialty Start Date End Date Patricia Garza, OPERATIONS ADMINISTRATIVE ASSISTANT [address] [place] [address] PCP - General Internal Medicine 04/02/20 documented as of this encounter
--- OUTSIDE RECORDS SUMMARY | 2024-06-03 01:48 | XMS_ITS | Encounter Summary ---
[place] [address] Care Team Providers Care Rumper Name Role Phone Patricia Garza APRN Primary Care Provider Encounter Details Date Type Department Care Team (Late st Contact Info) Description 08/12/2021 Telephone [place] [id number] Livier Chaney, RN Social History Tobacco Use [...] Telephone Encounter - Livier Chaney RN - 08/12/2021 8:22 AM EDT Patient is scheduled for surgery on Sunday08/15/[address] Marroquin. Call from daughter Narcisa about pre-op instruction as follows: Stop Eliquis after this mornings dose and hold until after surgery. Full liquid diet tomorrow and magnesium citrate mid-day. Clear liquid diet on Sunday and surgery first case Sunday morning. Narcisa verbalizes understanding and will call with any issues. documented in this encounter Plan of Treatment Not on file documented as of this encounter Visit Diagnoses Not on filedocumented in this encounter Care Teams Rumper Relationship Specialty Start Date End Date Patricia Garza APRN [address] [place] [address] PCP - General Internal Medicine 04/02/20 documented as of this encounter
--- OUTSIDE RECORDS SUMMARY | 2024-06-03 01:48 | XMS_ITS | Encounter Summary ---
Author [place] [address] Care Team Providers Care Automatic Profile Sander Operator Name Role Phone Patricia Garza APRN Primary Care Provider Encounter Details Date Type Department Care Team (Latest Contact Info) Description 08/17/2021 [place] [address] Lizzette Mccarty MD Pre-operative cardiovascular examination (Primary Dx) Social History Tobacco Use Types Packs/Day Years [...] this encounter Visit Diagnoses Diagnosis Pre-operative cardiovascular examination- Primary documented in this encounter Care Teams Automatic Profile Sander Operator Relationship Specialty Start Date End Date Patricia Garza APRN [address] [place] [address] PCP - General Internal Medicine 04/02/20 documented as of this encounter
--- OUTSIDE RECORDS SUMMARY | 2024-06-03 01:48 | XMS_ITS | Encounter Summary ---
[place] [address] Care Team Providers Care Hotel Or Motel Room Service Supervisor Name Role Phone Patricia Garza APRN Primary Care Provider [phone] Encounter Details Date Type Department Care Team (Late st Contact Info) Description 08/11/2021 Telephone [place]ology [place] [id number] Renata Epps MSW CARE MANAGEMENT Social History Tobacco Use Types Packs/Day Years [...] encounter Miscellaneous Notes * Telephone Encounter - Renata Epps MSW - 08/11/2021 1:31 PM EDT Continuing Green Building Design Specialist-Social Work Note [facility]/Office of Care Management Referral/Contact: Referral received from DEE DEE Crespo, advising that pt is scheduled for surgery with Dr. Marroquin on 08/15. Pt's daughter is reportedly going to fly in from [place] but pt is concerned about the possibility that this may not happen. Outreach call made to pt, who reports that her daughter has a flight booked and a rental car bookedand will be coming into town on Sunday, 08/13. Pt did ask questions about pre-op instructions like whether she is supposed to stop eating or taking certain medications. Advised that RN would be in touch with her in the near future to review pre-op instructions. Message sent to Luis E Meyer. Intervention(s): Care Coordination Plan: [facility]- remains available for psychosocial assessment, support, and resource coordination as needed. OMAR Serna Pager: [phone] documented in this encounter Plan of Treatment Not on file documented as of this encounter Visit Diagnoses Not on filedocumented in this encounter Care Teams Hotel Or Motel Room Service Supervisor Relationship Specialty Start Date End Date Patricia Garza APRN [address] [place] [address] PCP - General Internal Medicine 04/02/20 documented as of this encounter
--- OUTSIDE RECORDS SUMMARY | 2024-06-03 01:48 | XMS_ITS | Encounter Summary ---
Author Organization [facility] [place] [address] Care Team Providers Care Interior Painter Name Role Phone Patricia Garza APRN Primary Care Provider Encounter Details Date Type Department Care Team (Late st Contact Info) Description 10/22/2021 Telephone [place] [address] Fiona Lomeli MD [facility] [place] [address] Social History Tobacco Use Types Packs/Day Years [...] encounter Miscellaneous Notes * Telephone Encounter - Fiona Lomeli MD - 10/22/2021 3:58 PM EST Received a page asking for a call back to Linda's daughter in law. There was no answer but VM was left. Attempts were also made to dial the other numbers listed in her chart without any answer. Later able to connect with her daughter in law. She reports that Linda was discharged in July following a paraesophageal hernia repair. She had been doing well initially post operatively however today developed coffee ground emesis and severe abdominal pain. She has reportedly not been able to keep down any PO. Recommended that given the concern for an UGIB she present to the ED today. Her family plans to drive her to the ED this evening. Fiona Lomeli MD GI Fellow documented in this encounter Plan of Treatment Not on file documented as of this encounter Visit Diagnoses Not on filedocumented in this encounter Care Teams Interior Painter Relationship Specialty Start Date End Date Patricia Garza, QUALITY CONTROL EXPERT [address] [place] [address] PCP - General Internal Medicine 04/02/20 documented as of this encounter
--- OUTSIDE RECORDS SUMMARY | 2024-06-03 01:48 | XMS_ITS | Encounter Summary ---
Author Organization [facility] Address [facility] [place] [address] Care Team Providers Care Quarter Lining Smoother Name Role Phone Patricia Garza APRN Primary Care Provider [phone] Reason for Visit * Reason Comments Emesis * Auth/Cert Specialty Diagnoses / Procedures Referred By Contac t Referred To Contact Diagnoses Paraesophageal hernia Atrial fibrillation with rapid ventricular response Postoperative vomiting Referral ID Status Reason Start Date Expiration Date Visits Re quested Visits Authorized [id number] 1 1 Encounter Details Date Type Department Care Team (Latest Contact Info) Description 08/17/2021 6:59 AM EDT - 08/19/2021 6:37 PM EDT Hospital Encounter [address] [place] [address] Haylee Oviedo MD [facility] [place] [address] Patrice Cárdenas MD [facility] [place] [address] Postoperative vomiting; Atrial fibrillation with rapid ventricular response; Paraesophageal hernia Discharge Disposition: Home with VNA Social [...] Sign Reading Time Taken Comments Blood Pressure 133/85 08/19/2021 3:25 PM EDT Pulse 100 08/19/2021 7:28 AM EDT Temperature 36.3 ??C (97.4 ??F) 08/19/2021 3:25 PM ED T Respiratory Rate 20 08/19/2021 3:25 PM EDT Oxygen Saturation 99% 08/19/2021 3:25 PM EDT Inhaled Oxygen Concentration - - Weight 61.7 kg (136 lb) 08/18/2021 11:39 AM EDT Height 149.9 cm (4' 11.02) 08/18/2021 11:39 AM EDT Body Mass Index 27.45 08/18/2021 11:39 AM EDT documented in this encounter Discharge Summaries * Alicia Dorsey PA - 08/19/2021 5:38 PM EDT Department of Thoracic Surgery - Discharge Summary Patient Name: Linda Fuller Patient Age: 81 y.o. Birthdate: 1940 Admit date: 08/17/2021 Discharge date: 08/19/2021 Attending Physician: Patrice Cárdenas MD Discharge Diagnoses [...] post total right knee replacement Operations/Major Procedures: None during this hospitalization History of Presentation: Linda Fuller is a 81 y.o. female who was discharged yesterday PM as a POD1 from a giant paraesophageal hernia repair presented to the ED with nausea and vomiting. She reports not being able to tolerate taking her Eliquis after crushing it in apple sauce after getting home. She states that through the night she had few sips of water and reported feeling full but around 5:30AM she felt nauseous again and had small amount of thin liquid emesis; denied hematemesis. Her PMHx is significant for chronic Afib, 15 py smoking hx, HTN, HLD, and CVA. She denies f/c/cp/abd pain. Hospital Course: Linda Fuller was admitted to [facility] on 08/17/2021via the ED. She was admitted to Thoracic Surgery, started on IV fluids and a full liquid diet. Patient initially re-admitted for intolerance of liquids, most likely due to esophageal inflammation andspasm after her giant paraesophageal hernia repair. She was noted to have decreased UO and blood inher urine. UA appears to show a UTI (not catheter related) and oliguria. We suspect that the oliguria is a combination of pre-renal (due to initial poor PO intake) as well as intrinsic (she had a dose of toradol) that resolved with fluids (about 2.5 liters over 24 hours) without any findings of TYRESE(BUN bumped slightly 19-24 now down to 20). On the day of discharge, she had met all criteria for di scharge to home. Pain was controlled on oral medications. She had walked 5 minutes. She was tolerating a full liquid diet. She was discharged home on 08/19/21 in stable condition. Vital signs: Vital Signs Temp: 36.3 ??C (97.4 ??F) Temp src: Axillary Heart Rate from SpO2: 88 bpm Heart Rate: 100 Heart Rate Source: SaO2 Resp: 20 BP: 133/85 MAP (NBP): 110 mmHg BP Method: Automatic Patient Position: Lying SpO2: 99 % O2 Device: None (Room air) Admission Wt: 61.69 kg Last Wt: Wt Readings from Last 3 Encounters: 08/18/21 61.7 kg (136 lb) 08/16/21 64.3 kg (141 lb 12.1 oz) 06/07/21 65.6 kg (144 lb 9.6 oz) Pertinent physical exam findings prior to discharge: Gen: NAD, pleasant, sitting up in bed HEENT: sclerae anicteric Neck: supple, trachea midline Card: Afib in the low 100s, no M/R/G appreciated Pulm: CTAB, no wheeze/ronchi/rales appreciated, non-labored breathing on RA Abd: soft, NT, BS+, incisions clean and dry with dermabond in place Ext: warm, dry, no edema Neuro: A&Ox3, CN II-XII grossly intact, nonfocal, conversant Important Lab Data: Lab Results Component Value Date WBC 7.2 08/19/2021 HGB 11.2 (L) 08/19/2021 HCT 34.9 (L) 08/19/2021 MCV 95.1 (H) 08/19/2021 Lab Results Component Value Date NA 139 08/19/2021 K 3.6 08/19/2021 CL 106 08/19/2021 CO2 24 08/19/2021 Lab Results Component Value Date CREATININE 0.66 (L) 08/19/2021 Lab Results Component Value Date BUN 20 (H) 08/19/2021 No results found for: PREALBUMIN No results for input(s): PT, PTT, INR in the last 168 hours. Studies: None Pending Studies and Lab Data: No current labs Discharge Conditions/Prognosis: Stable Discharge to: Home VNA Discharge Medications: Your Medications New Medications Dose Details doxycycline 100 mg Tab Commonly known as: ADOXA Take 1 tablet by mouth 2 times daily. 100 mg Quantity: 12 tablet Refills: 0 magnesium oxide 400 mg (241.3 mg magnesium) Tab Commonly known as: Mag-Ox Take 1 tablet by mouth daily for 14 days. Please crush and dissolve in water 400 mg Quantity: 14 tablet Refills: 0 potassium phosphate (monobasic) 500 mg Tbso Commonly known as: K-Phos Take 1 tablet by mouth 2 times daily for 14 days. Please crush and dissolve in water. 500 mg Quantity: 28 tablet Refills: 0 Continued medications, unchanged Dose Details acetaminophen 500 [...] a nurse in the Thoracic Clinic at [phone]. After hours or on weekends or holidays please call: [phone] and ask to speak to the Thoracic Surgeon vice president of instruction. Exercise & Activity Level: As you recover [...] Diet: You should follow a full liquid diet. We recommend that you drink Boost Shakes three times a day. Smoking: If you are a smoker, please avoid smoking. If you are a smoker who needs help quitting, please call the thoracic surgery clinic at [phone]. Driving: No driving for 1 week or while taking narcotic pain medication. New Medications: 1. Doxycycline (ADOXA) is an antibiotic for your urinary tract infection. Please crush the pill or halve the pill and dissolve in water, and take as instructed. 2. You have prescriptions for supplements (Magnesium and Potassium Phosphate). Please crush the pills and dissolve in water, and take as instructed. Shower/Bath: You may shower daily. Incision care: Wash your incision(s) daily with soap and rinse well, pat dry. Assess for any signs of infection such as increased redness, pain, warmth or drainage. Pain: Pain after surgery is normal. The [...] the Thoracic Clinic or the Thoracic Surgeon vice president of instruction after hours. If you are having pain, please take over the counter Tylenol 1000mg every 6 hours and Ibuprofen 600mg every 6 hours, together as instructed, for baseline pain coverage. DO [...] office. Follow up appointments: You will see Dr Cárdenas in 2 weeks with a chest Xray within one hour of the appointment. A letter will be mailed to you confirming your appointment information. Future Appointments Date Time Provider Department Center 08/30/2021 12:30 PM [facility] DB XRAY ROOM 1 Xray [facility] Rad 08/30/2021 1:00 PM Patrice Cárdenas MD [address] General Instructions None Future Appointments and Orders Future Appointments and Orders Future Appointments Provider Department Dept Phone 08/30/2021 12:30 PM [facility] DB XRAY ROOM 1 XRay at [facility] Arrive at: Certified Phlebotomist Area [phone] Please go to Certified Phlebotomist Area 3 ([facility]). 08/30/2021 1:00 PM Patrice Cárdenas MD Thoracic Surgery at [facility] Arrive at: Certified Phlebotomist Area [phone] Future Orders Complete By Expires Referral to Home Health - at DISCHARGE [[id number] CPT(R)] As directed Process Instructions: Scheduling Instructions: Comments: DOCUMENTATION FOR VNA SERVICES (INCLUDING THOSE PATIENTS WITH MEDICARE COVERAGE REQUIRING HOME VNA SERVICES AND/OR HOSPICE SERVICES) PATIENT'S LOCATION: Linda Fuller [address] [facility] [address] (home) Stave And Bolt Equalizer's Name: self/family In discussion with the attending physician, it is certified that this patient is under their care and that they, or a Nurse Practitioner, Clinical Nurse specialist or Physician Compressor Operator who is working directly with them, had a face to face encounter that meets the physician face to face encounter requirements with this patient on 08/18/2021 The encounter with the patient was in whole, or in part, for the following medical condition, whichis the primary reason for home health care services: large paraesophageal hernia repair In discussion with the provider, it is [...] for managing ADL's. HOME HEALTH CARE AGENCY: [facility] PHONE: [phone] FAX: [phone] Start of care: within 24 to 48 hours of discharge FOR MEDICARE ONLY: (please delete this section if not Medicare) In discussion with the attending physician, it is certified that the clinical findings support thatthis patient is homebound because absences from home require considerable and taxing effort due to:physical deconditioning, recent abdominal surgery Please note that any additional orders needs or changes will need to be obtained from this patient's PCP: Patricia Garza, BLOOD BANK CUSTODIAN [address] / [facility] [address] All VNA agencies which cover the area of patient's residence have been reviewed, either verbally timothy writing, and patient/family have chosen the home health care agency noted Questions: Agency name and contact information: [facility] Patient location post discharge: home What services are requested: Registered Nurse Physical Therapy Occupational Therapy Start date: Responsible MD post discharge contact info: Surgery and PCP Provider Contact Information: Primary Care Provider: Patricia Garza APRN [phone] Discharge References/Attachments: Discharge References/Attachments None For questions regarding this document or issues relating to this hospitalization on the Thoracic Surgery Service, please contact Dr. Cárdenas's office at . Signed: MANDY Castro 08/19/2021 CC: PCP: Patricia Garza APRN Referring: Self Mail documented in this encounter Discharge Instructions * Patient Instructions* Alicia Dorsey PA - 08/18/2021 9:46 AM EDT Call if you have a fever of greater than 101 degrees, shaking chills, develop redness or drainage from your incision site(s), or if you have questions. During normal business hours, Sunday- Sunday 8:00 a.m.-5:00 p.m., please call to speak to a nurse in the Thoracic Clinic at [phone]. After hours or on weekends or holidays please call: [phone] and ask to speak to the Thoracic [...] Diet: You should follow a full liquid diet. We recommend that you drink Boost Shakes three times a day. Smoking: If you are a smoker, please avoid smoking. If you are a smoker who needs help quitting, please call the thoracic surgery clinic at [phone]. Driving: No driving for 1 week or while taking narcotic pain medication. New Medications: 1. Doxycycline (ADOXA) is an antibiotic for your urinary tract infection. Please crush the pill or halve the pill and dissolve in water, and take as instructed. 2. You have prescriptions for supplements (Magnesium and Potassium Phosphate). Please crush the pills and dissolve in water, and take as instructed. Shower/Bath: You may shower daily. Incision care: Wash your incision(s) daily with soap and rinse well, pat dry. Assess for any signs of infection such as increased redness, pain, warmth or drainage. Pain: Pain after surgery is normal. The [...] the Thoracic Clinic or the Thoracic Surgeon vice president of instruction after hours. If you are having pain, please take over the counter Tylenol 1000mg every 6 hours and Ibuprofen 600mg every 6 hours, together as instructed, for baseline pain coverage. DO [...] office. Follow up appointments: You will see Dr Cárdenas in 2 weeks with a chest Xray within one hour of the appointment. A letter will be mailed to you confirming your appointment information. Future Appointments Date Time Provider Department Center 08/30/2021 12:30 PM [facility] DB XRAY ROOM 1 Xray [facility] Rad 08/30/2021 1:00 PM Patrice Cárdenas MD [address] documented in this encounter Medications at Time of Discharge Medication Sig Dispensed Refills Start Date End Date doxycycline (ADOXA) 100 mg Tablet Take 1 [...] Release(E.C.) Take 40 mg by mouth daily. potassium phosphate, monobasic, (K-Phos) 500 mg Tablet, Soluble Take 1 tablet by mouth 2 times daily for 14 days. Please crush and dissolve in water. 28 tablet 08/18/2021 09/01/2021 magnesium oxide (Mag-Ox) 400 mg (241.3 mg magnesium) Tablet Take 1 tablet by mouth daily for 14 days. Please crush and dissolve in water 14 tablet 08/18/2021 09/01/2021 documented as of this encounter Progress Notes * Kori Stevenson, OT - 08/19/2021 9:18 AM EDT Occupational Therapy Evaluation Patient profile: Linda Fuller is a 81 y.o. female admitted on 08/17/2021 with a history of atrial fibrillation (on eliquis), CVA, HTN, HLD, who underwent paraesophageal hernia repair on 08/15/21, was discharged home on 08/16/21, and readmitted on 08/17/21 after experiencing nausea and vomiting. Past Medical History: Diagnosis Date ??? Atrial [...] 26.6) performed by Patrice Cárdenas MD at [facility] MAIN OR ??? PRO UPPER GI ENDOSCOPY, DIAGNOSTIC N/A 08/15/2021 EGD, UPPER GI ENDOSCOPY performed by Patrice Cárdenas MD at [facility] MAIN OR Social History: Home Setup: pt lives alone in senior housing apartment complex. 2nd floor apartment with elevator access. Bathroom has a walk-in shower with GB and seat. Standard toilet seat with GB. Daughter is visiting currently but leaving for [place] Functional Status: pt is independent with ADLs and most IADLs. She is responsible for all householdtasks. She ambulates with a 4WW indoors and cane outdoors. Pt does not drive; uses state provided transportation for appointments and errands Equipment at home: cane, 4WW, shower seat Fall history: one fall 3 months ago per PT note Precautions/Special Considerations: fall risk, full code, full liquid, telemetry, ambulate 4x/daily Subjective: I have trouble with my medication sometimes My mind isn't quite right since my stroke Objective: Seen today for OT evaluation. ??? Vital Signs o HR: 100s with activity o SpO2: 96% on RA ??? Pain: no pain at rest, c/o moderate pain in abdomen when coughing, educated on splinting with pillow to help reduce pain ??? Of note, pt had episode of active emesis at start of session. It resolved quickly, pt attributing to taking medication and drinking variety of liquids quickly. Pt was motivated to continue working with OT afterwards. ??? Cognitive Status/Behavior o Behavior / Mood: alert, cooperative and pleasant o Alert and oriented to: person, place, month, year, day of the week, situation. Unaware of the date o Follows commands: 1 step, 2 step and 100% of the time o Attention: WFL o Safety awareness: good safety precautions o Immediate recall: 3 out of 4 words o Delayed recall: 2 out of 4 words o Organization: able to complete half of organizational task (2 out of 4 words) ? ? Vision & Perception o WNL/WFL ?? Communication o Mild word finding difficulties ??? Musculoskeletal o ROM: BUEs WFL o Strength: BUEs WFL o Sensation: subjectively intact o Skin: appears intact ??? Activities of Daily Living: o Self-feeding: independently taking sips of water o Grooming: independent as indicated by good BUE ROM, strength, and coordination o Dressing: independent to don sneakers and don/doff gown sitting in the chair o Bathing: washed UB independently sitting in the chair o Toileting: modified independent for toilet routine, using FWW upon standing and hiking up clothes ??? Functional Mobility: o Supine to sit: N/A, pt sitting in chair o Sit to stand: modified independent o Ambulation: 100' with supervision and FWW o Stand to sit: modified independent o Sit to supine: N/A, pt sitting in chair ??? Balance o Sitting balance: good o Standing balance: good Education: patient have been educated on Role of occupational therapy/rehabilitation, Transfers, Assistive device/technique, ADL, Precautions/Protocol, Functional Mobility, Activity pacing/Energy conservation, Home Management, Balance, Recommendations and Discharge planning and verbalizes understanding. Patient status, treatment, and mobility recommendations discussed with nursing. Pt sitting in chairwith all needs met, call harris within reach, and alarm set. Assessment: Pt has been seen for occupational therapy evaluation. Linda Fuller presents s/p paraesophageal hernia repair with new onset of nausea and vomiting. Despite episode of emesis shortly upon arrival, pt was participatory and wanted to continue with session. She was modified independentADLs and functional mobility with FWW. Pt acknowledged mild cognitive deficits that she attributes to prior CVA, which impairs her ability to perform medication management. If discharging home, pt will need support to assist with medication management to ensure safety. She would benefit from home health and max services at home. Pt would be an excellent candidate for transition to [facility] in the nearby future. Plan to see her 1-3 more times for IADL needs to maximize independence and safety prior to discharge home. Pt would benefit from further inpatient OT interventions to address performance deficits and maximize participation and independence with occupations of daily living. Equipment needs at discharge: FWW Anticipated Discharge Disposition (OT): home with home health, other (see comments) (max services) Other Recommendations: ?? Utilize upright chair position using bed features or transfer to recliner chair as appropriate with supervision and FWW, ambulate as tolerated ?? Encourage participation in ADL's by providing set up A on tray table and physical assist only asneeded Other Recommendations: No other consults recommended at this time Goals: To be achieved by 09/01/2021. Pt will complete at least 1 household management task at an ambulatory level with with modified independence. Pt will make her bed and tidy her room with modified independence. Pt will participate in ongoing cognitive screening/assessment as indicated to aid in discharge planning. Plan: OT: Therapy Frequency (OT): 1-3 more times Planned OT interventions: Role of occupational therapy/rehabilitation, ADL, Precautions/Protocol, Functional Mobility, Activity pacing/Energy conservation, Home Management, Balance, Recommendations and Discharge planning. Total Minutes, Occupational Therapy: 44 (low complexity eval) 2017 OT Evaluation Code Rationale: ?? Diagnosis & Pertinent Co-Morbidities affecting Plan of Care: see PMHx ?? Occupational Profile & Client History: Brief Expanded Extensive x ?? Assessment of Occupational Performance: 1-3 performance deficits x 3-5 performance deficits 5 + performance deficits ?? Clinical Decision Making: Low Moderate High x Clinical decision making of low complexity using standardized patient assessment instrument and measurable assessment of functional outcome. Kori Stevenson OTR/Oleg Pager [phone] Occupational Therapy Rehabilitation Department * Naomy Tate RD - 08/19/2021 8:11 AM EDT Nutrition Note - Calorie Count Calorie count ordered, diet office aware. Per d/w team to cover this AM and lunch. Per d/w RN, pt ate almost 100% of cream of rice and maple yogurt as a snack. Calorie Count Results: Breakfast: 215 kcals consumed (Maple Yogurt not included provides additional 130 kcals and 13 g protein) Lunch: 63 kcals Total today so far: 378 kcals Pt seen for diet ed yesterday (see last RD note), and provided with supplements to optimize nutrition once d/c'd. Encouraged pt to drink supplements at home (would need 3-4 per day while on fulls). Thank you, Naomy Tate RD Pager [phone] * Alicia Dorsey PA - 08/19/2021 7:34 AM EDT [facility] Department of Thoracic Surgery Inpatient Progress Note Patient Name: Linda Fuller Patient : 1940 [facility] Attending Surgeon: HAYLEE OVIEDO DAVID J ID: Linda Fuller is a 81 y.o. female with a history of atrial fibrillation (on eliquis), CVA, HTN, HLD, who underwent paraesophageal hernia repair on 08/15/21, was discharged home on 08/16/21, and readmitted on 08/17/21 after experiencing nausea and vomiting. 24 Hour Events / Subjective: - Started on mIVF o/n - Remains on full liquids tolerating yogurt without emesis - Urine output 0.75cc/kg/hr in last 12 hours. - Episode of 25cc gross hematuria yesterday PM; UA sent which reflexed. Started on Ceftriaxone - States she feels better than yesterday but restless. Reports she hasn't had a BM since procedure on Sunday. - Denies nausea, emesis, urinary urgency, frequency or abdominal pain. Vitals: Temp: [36.3 ??C (97.3 ??F)-36.8 ??C (98.2 ??F)] Heart Rate: [100-113] Resp: [16-18] BP: (94-183)/(69-114) SpO2: [90 %-95 %] Heart Rate from SpO2: [79 bpm-121 bpm] Wt & BMI By Encounter Date ED to Hosp-Admission (Current) from 08/17/2021 in 2 [facility] Admission(Discharged) from 08/15/2021 in 4 [facility] Weight 61.7 kg (136 lb) 1 08/18/2021 1139 64.3 kg (141 lb 12.1 oz) 1 08/16/2021 0600 BMI 27.45 1 08/18/2021 1139 27.53 1 08/15/2021 0627 Physical Exam: Gen: NAD, pleasant, sitting comfortably in bed HEENT: sclerae anicteric Neck: supple, trachea midline Card: Irregular rate and rhythm, HR around 100 bpm Pulm: CTAB, no wheeze/ronchi/rales appreciated, non-labored breathing on room air Abd: ND, NT, incisions clean/dry/intact with dermabond in place : Clear hay/yellow colored urine in the bag and tubing. Ext: warm, dry, no edema Neuro: A&Ox3, CN II-XII grossly intact, nonfocal, conversant I/O: I/O last 3 completed shifts: In: 3701.3 [P.O.:509; I.V.:3192.3] Out: 640 [Urine:640] Labs: Recent Results (from the past 24 hour(s)) Basic Metabolic Panel (non-fasting) Result Value Ref Range Glucose Lvl 113 65 - 199 mg/dL BUN 24 (H) 8 - 18 mg/dL Creatinine 0.87 0.70 - 1.20 mg/dL Sodium 141 135 - 145 mmol/L Potassium 3.9 3.5 - 5.0 mmol/L Chloride 105 98 - 107 mmol/L CO2 23 22 - 31 mmol/L Anion Gap 13 5 - 15 mmol/L Calcium 8.4 (L) 8.5 - 10.5 mg/dL Estimated GFR 62 >=60 mL/min/1.73 m?? Hemogram Result Value Ref Range WBC 9.7 (H) 4.0 - 9.5 x10(3)/mcL RBC 4.51 4.00 - 5.21 x10(6)/mcL Hemoglobin 14.0 11.7 - 15.5 g/dL Hematocrit 42.0 35.7 - 45.8 % MCV 93.1 82.6 - 94.4 fL MCH 31.0 27.1 - 32.0 pg MCHC 33.3 31.7 - 35.0 g/dL Platelets 354 145 - 357 x10(3)/mcL RDWSD 45.2 37.0 - 46.0 fL RDWCV 13.2 11.5 - 14.1 % MPV 9.8 7.6 - 12.9 fL nRBC % Auto 0.0 % nRBC Abs Auto 0.000 0.000 - 0.000 x10(3)/mcL Magnesium Result Value Ref Range Magnesium 1.01 0.69 - 1.07 mmol/L Phosphorus Result Value Ref Range Phosphorus 3.1 2.5 - 4.5 mg/dL Hepatic Function Panel Result Value Ref Range Total Protein 6.1 6.1 - 8.0 g/dL Albumin 3.5 3.2 - 5.2 g/dL AST 23 0 - 30 unit/L ALT 17 0 - 30 unit/L Alk Phos 63 35 - 105 unit/L Total Bilirubin 0.5 0.2 - 1.3 mg/dL Bili, Direct 0.2 0.0 - 0.3 mg/dL Urinalysis with reflex Culture Specimen: Straight Catheter Urine Result Value Ref Range Glucose UA Negative Negative mg/dL Protein UA 100 (A) Negative mg/dL Bilirubin UA Moderate (A) Negative mg/dL Urobilinogen UA Normal Normal mg/dL pH UA 5.0 5.0 - 8.0 Blood UA Moderate (A) Negative mg/dL Ketones UA Negative Negative mg/dL Nitrite UA Positive (A) Negative Leukocytes UA Moderate (A) Negative mcL Appearance UA Turbid (A) Clear Spec [place] UA >=1.030 (A) 1.005 - 1.030 Color UA [place] (A) Yellow Culture Reflexed Yes Urinalysis Microscopic Exam Result Value Ref Range RBC UA >100 (H) 0 - 4 /HPF WBC UA 51 (H) 0 - 5 /HPF WBCs Clumping Occasional (A) None /HPF Bacteria UA Moderate (A) None /HPF Squam Epith UA 1 <=4 /HPF Hyaline Cast UA 12 (H) 0 - 2 /LPF Amorph Mary UA Moderate (A) None /HPF Basic Metabolic Panel (non-fasting) Result Value Ref Range Glucose Lvl 89 65 - 199 mg/dL BUN 20 (H) 8 - 18 mg/dL Creatinine 0.66 (L) 0.70 - 1.20 mg/dL Sodium 139 135 - 145 mmol/L Potassium 3.6 3.5 - 5.0 mmol/L Chloride 106 98 - 107 mmol/L CO2 24 22 - 31 mmol/L Anion Gap 9 5 - 15 mmol/L Calcium 7.8 (L) 8.5 - 10.5 mg/dL Estimated GFR 82 >=60 mL/min/1.73 m?? Magnesium Result Value Ref Range Magnesium 0.79 0.69 - 1.07 mmol/L Phosphorus Result Value Ref Range Phosphorus 2.1 (L) 2.5 - 4.5 mg/dL Hemogram Result Value Ref Range WBC 7.2 4.0 - 9.5 x10(3)/mcL RBC 3.67 (L) 4.00 - 5.21 x10(6)/mcL Hemoglobin 11.2 (L) 11.7 - 15.5 g/dL Hematocrit 34.9 (L) 35.7 - 45.8 % MCV 95.1 (H) 82.6 - 94.4 fL MCH 30.5 27.1 - 32.0 pg MCHC 32.1 31.7 - 35.0 g/dL Platelets 256 145 - 357 x10(3)/mcL RDWSD 46.5 (H) 37.0 - 46.0 fL RDWCV 13.3 11.5 - 14.1 % MPV 9.8 7.6 - 12.9 fL nRBC % Auto 0.0 % nRBC Abs Auto 0.000 0.000 - 0.000 x10(3)/mcL Differential, Automated Result Value Ref Range Neutrophils % 65.1 % Neutr Abs (ANC) 4.66 1.70 - 6.10 x10(3)/mcL Lymphocytes % 19.8 % Lymphocytes Abs 1.4 0.9 - 3.2 x10(3)/mcL Monocytes % 8.8 % Monocyte Abs 0.6 0.3 - 0.9 x10(3)/mcL Eosinophils % 4.2 % Eosinophils Abs 0.3 0.0 - 0.4 x10(3)/mcL Basophils % 1.0 % Basophils Abs 0.1 0.0 - 0.1 x10(3)/mcL Immature Gran % 1.10 % Arina Gran Abs 0.08 (H) 0.00 - 0.04 x10(3)/mcL CK Result Value Ref Range CK, Total 86 0 - 160 unit/L Sodium, urine, random Result Value Ref Range U Sodium 168 mmol/L Creatinine, urine, random Result Value Ref Range U Creatinine 34 mg/dL U Albumin/Cre Ratio Result Value Ref Range Alb/Cr Ratio, Random 78 (H) 0 - 29 mcg/mg Cr U Albumin Conc, Random 28.1 mg/L U Creatinine 36 mg/dL Sodium, urine, random Result Value Ref Range U Sodium 170 mmol/L Diagnostics: None Micro: UA reflex culture (08/18/21): Pending Assessment: Linda Fuller is a 81 y.o. female who is s/p paraesophageal hernia repair on 08/15, now admitted for nausea, emesis and poor PO intake after surgery. Over the past 24 hours, PO intake has improveand Linda is without further episodes of retching. She has been tolerating clears. 1. HLIVF 2. Remove Flanagan, DTV this afternoon 3. OT consult for evaluation of home vs SNF 4. Continue Abx course 5. Calorie counts 6. RBO's Plan: Neuro: tylenol PRN, celexa Card: amlodipine, toprol-XL Pulm: on room air, encourage IS, duonefide FENGI: Full liquid diet, HLIVF Renal/: Flanagan removed, DTV Heme: SQH, holding Eliquis ID: ANAYA Endo: ANAYA PPx: SCDs, ambulation, ISC, cough, deep breathing Dispo: Floor Discussed with thoracic attending surgeon, Dr. Cárdenas. MANDY Castro 08/19/2021 Thoracic Surgery Service Pager [phone] Associated attestation - Patrice Cárdenas MD - 08/19/2021 8:07 AM EDT Patient initially re-admitted for intolerance of liquids, most likely due to esophageal inflammation and spasm after her giant paraesophageal hernia repair. Yesterday she was noted to have decreased UO and blood in her urine. UA appears to show a UTI (not catheter related) and oliguria. We suspect that the oliguria is a combination of pre-renal (due to initial poor PO intake) as well as intrinsic(she had a dose of toradol) that resolved with fluids (about 2.5 liters over 24 hours) without any findings of TYRESE (BUN bumped slightly 19-24 now down to 20). Plan: DC flanagan Antibiotics for UTI (await cultures) DC fluids Calorie count/confirm that she is taking in enough PO for hydration PT cleared for home. Will have OT see her and confirm she is safe to go home since she will not have any support at home Bowel regiment today to get her moving her bowels Possible DC later today if she is doing well and is cleared by OT PATRICE CÁRDENAS MD * Ashley Ahn MD - 08/18/2021 2:18 PM EDT [facility] Department of Thoracic Surgery Inpatient Progress Note Patient Name: Linda Fuller Patient : 1940 Patient Patient Location: Attending Surgeon: HAYLEE OVIEDO DAVID J ID: Linda Fuller is a 81 y.o. female with a history of atrial fibrillation (on eliquis), CVA, HTN, HLD, who underwent paraesophageal hernia repair on 08/15/21, was discharged home on 08/16/21, and readmitted on 08/17/21 after experiencing nausea and vomiting. 24 Hour Events / Subjective: - Started on mIVF - Tolerating full liquids without further episodes of nausea or emesis - Urine output not recorded from ED, but only 75cc UOP today - Episode of 25cc gross hematuria - Denies nausea, emesis, urinary urgency, frequency or abdominal pain. Vitals: Temp: [36 ??C (96.8 ??F)-36.4 ??C (97.6 ??F)] Heart Rate: [102-120] Resp: [17-27] BP: (131-184)/(80-168) SpO2: [91 %-95 %] Heart Rate from SpO2: [95 bpm-129 bpm] Wt & BMI By Encounter Date ED to Hosp-Admission (Current) from 08/17/2021 in 2 [facility] Admission(Discharged) from 08/15/2021 in 4 [facility] Weight 61.7 kg (136 lb) 1 08/18/2021 1139 64.3 kg (141 lb 12.1 oz) 1 08/16/2021 0600 BMI 27.45 1 08/18/2021 1139 27.53 1 08/15/2021 0627 Physical Exam: Gen: NAD, pleasant, sitting comfortably in chair HEENT: normocephalic, atraumatic, EOMI, sclerae anicteric Neck: supple, trachea midline Card: Irregular rate and rhythm, HR around 100 bpm Pulm: CTAB, no wheeze/ronchi/rales appreciated, non-labored breathing on room air Abd: soft, NT, BS+ Ext: warm, dry, no edema Neuro: A&Ox3, CN II-XII grossly intact, nonfocal, conversant I/O: I/O last 3 completed shifts: In: 913.3 [P.O.:100; I.V.:813.3] Out: - Labs: Recent Results (from the past 72 hour(s)) Basic Metabolic Panel (non-fasting) Result Value Ref Range Glucose Lvl 114 65 - 199 mg/dL BUN 19 (H) 8 - 18 mg/dL Creatinine 0.88 0.70 - 1.20 mg/dL Sodium 142 135 - 145 mmol/L Potassium 3.5 3.5 - 5.0 mmol/L Chloride 104 98 - 107 mmol/L CO2 22 22 - 31 mmol/L Anion Gap 16 (H) 5 - 15 mmol/L Calcium 8.3 (L) 8.5 - 10.5 mg/dL Estimated GFR 61 >=60 mL/min/1.73 m?? Hemogram Result Value Ref Range WBC 17.0 (H) 4.0 - 9.5 x10(3)/mcL RBC 4.71 4.00 - 5.21 x10(6)/mcL Hemoglobin 14.2 11.7 - 15.5 g/dL Hematocrit 43.0 35.7 - 45.8 % MCV 91.3 82.6 - 94.4 fL MCH 30.1 27.1 - 32.0 pg MCHC 33.0 31.7 - 35.0 g/dL Platelets 341 145 - 357 x10(3)/mcL RDWSD 44.2 37.0 - 46.0 fL RDWCV 13.2 11.5 - 14.1 % MPV 9.6 7.6 - 12.9 fL nRBC % Auto 0.0 % nRBC Abs Auto 0.000 0.000 - 0.000 x10(3)/mcL Differential, Automated Result Value Ref Range Neutrophils % 88.4 % Neutr Abs (ANC) 15.03 (H) 1.70 - 6.10 x10(3)/mcL Lymphocytes % 3.8 % Lymphocytes Abs 0.6 (L) 0.9 - 3.2 x10(3)/mcL Monocytes % 6.6 % Monocyte Abs 1.1 (H) 0.3 - 0.9 x10(3)/mcL Eosinophils % 0.0 % Eosinophils Abs 0.0 0.0 - 0.4 x10(3)/mcL Basophils % 0.3 % Basophils Abs 0.0 0.0 - 0.1 x10(3)/mcL Immature Gran % 0.90 % Arina Gran Abs 0.15 (H) 0.00 - 0.04 x10(3)/mcL EKG 12 Lead Result Value Ref Range Ventricular rate 131 BPM QRS Duration 84 ms Q-T Interval 330 ms QTC Calculated (Bezet) 487 ms Calculated R [employer] 24 degrees Calculated T [employer] 140 degrees INTERPRETATION Atrial fibrillation with rapid ventricular response Nonspecific ST and T wave abnormality Abnormal ECG When compared with ECG of 15-AUG-2021 12:17, Atrial fibrillation has replaced Sinus rhythm Vent. rate has increased BY 61 BPM Confirmed by MD Cook Danette ([id number]) on 08/17/2021 4:41:56 PM COVID-19 PCR Specimen: Nasopharyngeal Swab Symptoms->Surveillance Result Value Ref Range SARS-CoV-2 RNA PCR Not Detected Not Detected SARS-CoV-2 Source [employer] Swab Basic Metabolic Panel (non-fasting) Result Value Ref Range Glucose Lvl 68 65 - 199 mg/dL BUN 23 (H) 8 - 18 mg/dL Creatinine 0.82 0.70 - 1.20 mg/dL Sodium 142 135 - 145 mmol/L Potassium 3.5 3.5 - 5.0 mmol/L Chloride 108 (H) 98 - 107 mmol/L CO2 24 22 - 31 mmol/L Anion Gap 10 5 - 15 mmol/L Calcium 7.7 (L) 8.5 - 10.5 mg/dL Estimated GFR 67 >=60 mL/min/1.73 m?? Magnesium Result Value Ref Range Magnesium 0.75 0.69 - 1.07 mmol/L Phosphorus Result Value Ref Range Phosphorus 1.2 (CRIT) 2.5 - 4.5 mg/dL Lavender Tube HOLD Result Value Ref Range Lavender Hold Sample in lab. Diagnostics: None Micro: None Assessment: Linda Fuller is a 81 y.o. female who is s/p paraesophageal hernia repair on 08/15, now admitted for nausea, emesis and poor PO intake after surgery. Over the past 24 hours, PO intake has improveand Linda is without further episodes of retching. She has been tolerating clears. She has had low urine output throughout the day (only 75cc recorded). Received 250cc bolus of LR with continued low UOP, and most recently with gross hematuria. Linda has never experienced this before and denies urinary symptoms. Plan to obtain UA and labs, and increase IVF. Plan: Neuro: tylenol PRN, celexa Card: amlodipine, toprol-XL Pulm: on room air, encourage IS, duonebs FENGI: Full liquid diet, IVF@75cc/hr, administer 500cc bolus, aggressive electrolyte repletion, miralax, senna, colace Renal/: Follow up UA, monitor UOP Heme: ANAYA ID: ANAYA Endo: ANAYA PPx: SCDs, ambulation, ISC, cough, deep breathing Dispo: Floor Ashley Ahn MD 08/18/2021 Thoracic Surgery Service Pager [phone] * Donya Charlton RD - 08/18/2021 10:41 AM EDT Nutrition Note Provided patient with the following ONS to take with her at discharge: 3 [place] Glucerna LOT#[id number] exp. 29 March 2022 3 Chocolate Glucerna LOT#[id number] exp. 28 April 2022 3 Vanilla Glucerna LOT#[id number] exp. 27 January 2022 1 unopened box of vanilla BIB LOT#[id number] exp. 04 August 2022 Reviewed full liquid diet with patient and how to incorporate these supplements into her diet. Encouraged her to look for coupons online for Ensure products as patient commented that ONS can be pricey. Thank you, Donya Charlton MS, RD Pager [phone] * Ramona Russell, PT - 08/18/2021 9:28 AM EDT Physical Therapy Evaluation Patient profile: Linda Fuller is a 81 y.o. female who was discharged yesterday PM as a POD1 from a giant paraesophageal hernia repair presented to the ED with nausea and vomiting. She reports not being able to tolerate taking her Eliquis after crushing it in apple sauce after getting home. Shestates that through the night she had few sips of water and reported feeling full but around 5:30AMshe felt nauseous again and had small amount of thin liquid emesis; denied hematemesis. Her PMHx issignificant for chronic Afib, 15 py smoking hx, HTN, HLD, and CVA. She denies f/c/cp/abd pain. Patient with the following active problems: Past [...] 26.6) performed by Patrice Cárdenas MD at [facility] MAIN OR ??? PRO UPPER GI ENDOSCOPY, DIAGNOSTIC N/A 08/15/2021 EGD, UPPER GI ENDOSCOPY performed by Patrice Cárdenas MD at [facility] MAIN OR Active Non-Hospital Problems Diagnosis ??? Anticoagulant long-term [...] ??? Status post total right knee replacement Social History: Home set-up: second floor apartment (alone) Stairs: non-essential, elevator access Baseline mobility: mod-IND with 4WW. Equipment at home: typically uses 4WW at baseline, reports independence with self care, ADLs. Support at home: Daughter staying with her for next few day Fall history: fell 3 months ago, slipped on bathroom rug Precautions/Special Considerations: full code Lines: RICK, [place] Activity Orders: PT orders Diet: full liquid diet Mobility and Positioning Recommendations: ?? Pt. to utilize FWW and supervision + IV mgmt for ambulation and transfers with nursing. ?? Please encourage up to chair for meal times as able. ?? Pt encouraged to ambulate frequently with staff, getting into the bathroom for toileting and walking out in the jacobo >/= 3 times daily as able. Subjective: ???I'm ok, but it sounds like they are working everything out?? Objective: Pt seen for evaluation today. Pain: denies Vital Signs: unremarkable / consistently within appropriate limits on RA Mental Status: alert, oriented to person, place, and time Vision: wears glasses timekeeper Skin: abdominal laprascopic punctures, PIV Musculoskeletal: ROM: WFL Strength: WFL Sensation: denies abnormalities Bed Mobility: Supine to Sit: IND Sit to Supine: not observed; session ended in bedside recliner chair Transfers: Sit to Stand: supervision with FWW Stand to Sit: supervision with FWW Bed to Chair: supervision with FWW Gait: Distance: 140 ft Device used: FWW Level of assist: supervision Gait mechanics: Presents with decreased jay, decreased step length , limited foot clearance during swing phase and foot flat contact Stairs: not performed; Patient has no essential stairs at home Balance: Sitting Static: good Sitting Dynamic: good, able to don socks in sitting w/o LOB Standing Static: good with FWW Standing Dynamic / Gait: fair+ with FWW, 1 small LOB but able to self-correct. Otherwise good throughout session. Education: patient has been educated on Assistive device/technique, Activity pacing/Energy conservation, Role of therapy and Discharge planning and verbalize understanding. Patient status, treatment, and mobility recommendations discussed with nursing. Assessment: Linda Fuller was seen today for physical therapy evaluation. Patient tolerated therapy well and was able to demonstrate ability to perform bed mobility, transfers, and ambulation at the level required for safe discharge home. That being said, Patient presents with decreased balanceand decreased endurance, and will benefit from additional PT while in-house to further bolster her current functional abilities. Once ready for d/c, home health PT services will assist her in reaching additional functional goals. Discharge Recommendations: Based on the current findings, Anticipated Discharge Disposition (PT): home with home health when medically ready for hospital discharge. Consult Recommendations: No other consults recommended at this time. Equipment needs: Anticipated Equipment Needs at Discharge (PT): None Goals: To be achieved by 08/30/21 1. Pt. to perform bed mobility independently. MET 2. Pt. to perform all transfers with modified independence using a front wheeled walker. 3. Pt. to ambulate >200 feet with modified independence using a a front wheeled walker. 4. Pt to demonstrate good dynamic standing balance during all PT activities, without any LOBs Plan: Therapy Frequency (PT): once for therapy including balance training and gait training. Patient/family understand and agree with plan as stated above. 2017 PT Evaluation Code Rationale: ?? Diagnosis & Pertinent Co-Morbidities, personal factors, and present illness affecting Plan of Care: (see above); Additional personal factors or co- morbidities that impact plan: ?? Total # of Factors: 0 1-2 3+ x ?? Examination of body system impairments, functional limitations and behaviors, and/or participation restrictions. Addressing 1-2 elements x Addressing 3 + elements Addressing 4 + elements ?? Clinical presentation: See assessment above. Stable/Uncomplicated Evolving/Fluctuating Symptoms Unstable/Unpredictable x ?? Clinical decision making of low complexity based on pt's functional performance as outlined in this evaluation. Time IN / OUT: 4267-2472 Total Minutes, Physical Therapy: 15 (evaluation, low complexity) Ramona Russell Pager: [phone] Physical Therapy Inpatient Rehabilitation Department * Patito Yoo, RN - 08/18/2021 2:26 AM EDT Illness Severity [x] Stable [] Watcher [] Unstable Patient Summary Reason for admission: discharged 08/16 after paraesophageal hernia repair. Nausea/ vomiting since discharge. Told to return to ED Relevant PMH: HTN, HLD, Afib, depression. Significant 24 hour events: 08/17 pm- no nausea/ vomiting. IV flds maintained. Denied need for painmed. Up to commode to void. Lap sites CDI. Abd bruising noted. Neuro: WDL Cardiac:.WDL except, rhythm Neurovasc: WDL Pulmonary: GI: .WDL except, GI symptoms LBM: : WDL Flanagan [] Last Flanagan Care Done: Indication: Bladder Scan/SC: Musculoskeletal: Mobility Plan: Fall risk: High (45 and higher) Q2h turns [] Skin: Psych/Social: Consults: PT [] OT [] UROLOGY SURGEON [] Psych [] Action List Monitor/ manage pain. Monitor for nausea/ vomiting. IV flds. Discharge planning Discharge Plan: Home meds in Rx [] Belongings in safe [] Situational Awareness & Contingency Planning Notify MD if pain unrelieved. Nausea / vomiting unrelieved with available medications documented in this encounter H&P Notes * Alicia Dorsey PA - 08/17/2021 8:02 AM EDT [facility] Department of Thoracic Surgery Note [facility] [place], [place] [address] FAX: Patient Name: Linda Fuller Patient : 1940 Patient Patient Location: ED15/ED15 This consultation request was made by: HAYLEE OVIEDO Thoracic surgery attending: Patrice Cárdenas MD HPI: Linda Fuller is a 81 y.o. female who was discharged yesterday PM as a POD1 from a giant paraesophageal hernia repair presented to the ED with nausea and vomiting. She reports not being able to tolerate taking her Eliquis after crushing it in apple sauce after getting home. She states that through the night she had few sips of water and reported feeling full but around 5:30AM she felt nauseous again and had small amount of thin liquid emesis; denied hematemesis. Her PMHx is significant for chronic Afib, 15 py smoking hx, HTN, HLD, and CVA. She denies f/c/cp/abd pain. Past Medical History: Patient Active Problem List Diagnosis Date Noted [...] Status post total right knee replacement 11/20/2011 Past Medical History: Diagnosis Date ??? Atrial fibrillation on eliquis ??? CVA (cerebral vascular accident) ??? Depression ??? Hyperlipemia ??? Hypertension Past Surgical History: Past Surgical History: Procedure Laterality Date ??? CHOLECYSTECTOMY ??? JOINT REPLACEMENT Right ??? JOINT REPLACEMENT Left ??? PRO LAPAROSCOPY, SURG, REPAIR PARAESOPHAGEAL HERNIA, W/O IMPLANTATION OF MESH N/A 08/15/2021 ROBOT XI LAPAROSCOPIC PARAESOPHAGEAL HERNIA REPAIR W/FUNDOPLASTY,W/O MESH (WRVU 26.6) performed by Patrice Cárdenas MD at [facility] MAIN OR ??? PRO UPPER GI ENDOSCOPY, DIAGNOSTIC N/A 08/15/2021 EGD, UPPER GI ENDOSCOPY performed by Patrice Cárdenas MD at [facility] MAIN OR Medications: No outpatient medications have been marked as taking for the 08/17/21 encounter (Hospital Encounter). Allergies: Allergies Allergen Reactions ??? Pcn [Penicillins] Other (See Comments) Arms swell up ??? Sulfa (Sulfonamide Antibiotics) Nausea And Vomiting Family History: Family History Problem Relation Age of Onset ??? Cerebrovascular Accident Mother ??? Cancer Father Social History: Social History Socioeconomic History ??? Marital status: [...] Alcohol use: Not Currently ??? Drug use: Never ??? Sexual activity: Not on file Other Topics Concern ??? Not on file Social History Narrative ??? Not on file Social Determinants of Health Financial Resource Strain: ??? Difficulty of Paying Living Expenses: Not on file Food Insecurity: ??? Worried About Running Out of Food in the Last Year: Not on file ??? Ran Out of Food in the Last Year: Not on file Transportation Needs: ??? Lack of Transportation (Medical): Not on file ??? Lack of Transportation (Non-Medical): Not on file Physical Activity: ??? Days of Exercise per Week: Not on file ??? Minutes of Exercise per Session: Not on file Housing Stability: ??? Unable to Pay for Housing in the Last Year: Not on file ??? Number of Places Lived in the Last Year: Not on file ??? Unstable Housing in the Last Year: Not on file Review of Systems: See HPI Vitals: Temp: [36.4 ??C (97.5 ??F)] Heart Rate: [115-116] Resp: [16-18] BP: (160-171)/(111-118) SpO2: [92 %-94 %] Heart Rate from SpO2: [111 bpm] Wt & BMI By Encounter Date ED from 08/17/2021 in Emergency Department [facility] Admission (Discharged) from 08/15/2021 in 4 [facility] Weight 61.7 kg (136 lb) 1 08/17/2021 0701 64.3 kg (141 lb 12.1 oz) 1 08/16/2021 0600 BMI -- 27.53 1 08/15/2021 0627 Physical Exam: Gen: NAD, pleasant, sitting up in bed HEENT: sclerae anicteric Neck: supple, trachea midline Card: Afib in the 120s, no M/R/G appreciated Pulm: CTAB, no wheeze/ronchi/rales appreciated, non-labored breathing on RA Abd: soft, NT, BS+, incisions clean and dry with dermabond in place Ext: warm, dry, no edema Neuro: A&Ox3, CN II-XII grossly intact, nonfocal, conversant I/O: No intake/output data recorded. Labs: Recent Results (from the past 72 hour(s)) POCT Glucose Result Value Ref Range POC Glucose 95 65 - 199 mg/dL COVID-19 PCR Specimen: Nasopharyngeal Swab Symptoms->Surveillance Result Value Ref Range SARS-CoV-2 RNA PCR Invalid (A) Not Detected SARS-CoV-2 Source [employer] Swab Respiratory Panel PCR Specimen: Nasopharyngeal Swab Symptoms->Surveillance Result Value Ref Range Resp Panel Source [employer] Swab Resp Panel PCR Negative Negative Adenovirus [...] QTC Calculated (Bezet) 490 ms Calculated P [employer] 81 degrees Calculated R [employer] 32 degrees Calculated T [employer] 53 degrees INTERPRETATION Sinus rhythm with Premature atrial complexes in a pattern of bigeminy Prolonged QT Abnormal ECG When compared with ECG of 07-JUN-2021 14:11, Premature atrial complexes are now Present Confirmed by Clara Bonilla ([id number]) on 08/15/2021 3:30:14 PM Assessment: Linda Fuller is a 81 y.o. female s/p robotic PEHR on 08/15/21. She has had nausea/vomitinglikely 2/2 post-operative paraesophageal edema. Plan: 1. Admit to Thoracic Surgery 2. mIVF @50cc/hr 3. 5 mg IV metop x1 4. Full liquid diet as tolerated 5. Please page [phone] for questions or concerns. All plans formulated in discussion with and directed by attending thoracic surgeon Dr. Cárdenas. MANDY Castro 08/17/2021 Thoracic Surgery Service Pager [phone] documented in this encounter ED Notes * Gayle Castellano RN - 08/17/2021 6:34 PM EDT Pt had a few bites of jello and states I just feel so full * Gayle Castellano RN - 08/17/2021 12:28 PM EDT Per MD, encourage small amounts of fluid as tolerated. Provided pt with apple juice as requested. * Gayle Castellano RN - 08/17/2021 11:22 AM EDT IV team at bedside * Gayle Castellano RN - 08/17/2021 9:45 AM EDT This aligner typewriter was unable to obtain IV access. IV team paged * Haylee Oviedo MD - 08/17/2021 7:52 AM EDT Brief Attending Note I cared for the patient with the resident physician. Please see Dr. Valerio's note, associated with the encounter, for more details. HPI: Linda Fuller is a 81 y.o. who presents to the ED who is postoperative day #2 status post repair of large paraesophageal hernia. She was discharged yesterday at approximately 4 PM. She has not been able to tolerate p.o. since discharge home, including even small sips of water or her medicines. She was told by the surgical team that if this happened she needed to return to the emergency department and possibly be admitted for a scope to open things up a little bit more. She has not had fevers or chills. She feels thirsty. She has right lower quadrant abdominal pain which has been stable since the operation, and she reports she was told that this was very common after the surgery. No oth er symptoms. ROS: Pertinent positives and negatives are included in the history of present illness, otherwise 10 systems are reviewed and negative Allergies: Allergies Allergen Reactions ??? Pcn [Penicillins] Other (See Comments) Arms swell up ??? Sulfa (Sulfonamide Antibiotics) Nausea And Vomiting Past Medical, Past Surgical, Family/Social History: reviewed in chart. Patient Vitals for the past 8 hrs: BP Temp Temp src Pulse Resp SpO2 Weight 08/17/21 0715 (!) 160/118 -- -- (!) 116 18 92 % -- 08/17/21 0704 -- -- -- (!) 115 -- 93 % -- 08/17/21 0701 (!) 171/111 36.4 ??C (97.5 ??F) Oral -- 16 94 % 61.7 kg (136 lb) Gen: well appearing, NAD HENT: atraumatic, OP clear, mm dry Pulm: CTA ingrid, no respiratory distress Card: RRR Abd: soft, mild tenderness, surgical port sites appear c/d/i Skin: warm and dry Neuro: speech fluent, no obvious deficit MS: No obvious deformity Psych: Normal mood Assessment: 81 y.o. female presenting with vomiting postoperative day 2 status post surgery repair.We will obtain labs, give IVF and consult the thoracic surgery team for further management and disposition reccomendations. Haylee Oviedo MD 08/17/21 0758 * Lynnette Valerio MD - 08/17/2021 7:23 AM EDT ED Resident Note HPI: Linda Fuller is a 81 y.o. female w PMH s/f atrial fibrillation (on Eliquis), CVA, who presentsto the Emergency Department with nausea, vomiting, and abdominal pain after recent paraesophageal hernia repair on 08/15. Last took Eliquis on 08/11. Tried to take last night, but was nauseous. Large paraesophageal hernia status post surgical repair on 08/15. After discharge patient has been unable to tolerate p.o. without significant nausea. Has been vomiting with p.o. intake since last night. Endorses right lower quadrant abdominal pain. No fever, chills, chest pain, shortness of breath. Pt was seen under the supervision of an attending physician. Review of Systems Pertinent positives and negatives are included in the HPI, otherwise at least ten systems were reviewed and negative. Past Medical and Surgical Histories, Social History, Medications, Allergies were reviewed in the chart. Vitals: ED Triage Vitals BP: (!) 171/111 [08/17/21700] Heart Rate: (!) 115 [08/17/21703] Resp: 16 [08/17/21700] Temp: 36.4 ??C (97.5 ??F) [08/17/21700] Temp src: Oral [08/17/21700] SpO2: 94 % [08/17/21700] O2 Device: RA [08/17/21703] O2 Flow Rate (L/min): n/a Physical Exam Vitals and nursing note reviewed. Constitutional: General: She is not in acute distress. HENT: Head: Normocephalic. Mouth/Throat: Mouth: Mucous membranes are dry. Eyes: Pupils: Pupils are equal, round, and reactive to light. Cardiovascular: Rate and Rhythm: Tachycardia present. Rhythm irregular. Pulmonary: Effort: No respiratory distress. Breath sounds: Normal breath sounds. Abdominal: General: Abdomen is flat. Palpations: Abdomen is soft. Tenderness: There is abdominal tenderness (RLQ). There is no rebound. Comments: Multiple laparascopic incision sites over abdomen. Appear clean, dry, intact. Musculoskeletal: General: Normal range of motion. Cervical back: Normal range of motion and neck supple. Right lower leg: Edema present. Left lower leg: Edema present. Skin: General: Skin is warm and dry. Neurological: General: No focal deficit present. Mental Status: She is alert and oriented to person, place, and time. Mental status is at baseline. Psychiatric: Mood and Affect: Mood normal. Behavior: Behavior normal. ED Course: I have reviewed labs and imaging, images and available reports, and they are significant for: Labs Reviewed BASIC METABOLIC PANEL (NON-FASTING) - Abnormal; Notable for the following components: Result Value BUN 19 (*) Anion Gap 16 (*) Calcium 8.3 (*) All other components within normal limits HEMOGRAM - Abnormal; Notable for the following components: WBC 17.0 (*) All other components within normal limits DIFFERENTIAL, AUTOMATED - Abnormal; Notable for the following components: Neutr Abs (ANC) 15.03 (*) Lymphocytes Abs 0.6 (*) Monocyte Abs 1.1 (*) Arina Gran Abs 0.15 (*) All other components within normal limits CBC (WITH DIFF) No orders to display ED Course as of 08/17/21 1341 Wed Aug 17, 2021 0727 Thoracics paged [id number] WBC(!): 17.0 Assessment and Plan: Linda Fuller is a 81 y.o. female w PMH s/f atrial fibrillation (on Eliquis), CVA, who presentsto the Emergency Department with nausea, vomiting, and abdominal pain after recent paraesophageal hernia repair. Vitals notable for tachycardia, tachypnea, hypertension. Labs notable for leukocytosis. ECG demonstrates atrial fibrillation with RVR. She was given metoprolol 5mg IV for rate control. She was given Zofran for nausea, vomiting. Thoracic surgery was consulted given that Ms. Fuller was discharged within the last 24 hours and unable to tolerate PO. Plan is for admission to Thoracic Surgery for further management. The visit findings, diagnosis, and care plan were discussed with the patient. Lynnette Valerio MD Resident 08/30/21 2065 Associated attestation - Haylee Oviedo MD - 09/05/2021 1:03 PM EST ED ATTENDING ATTESTATION The patient was seen in conjunction with the resident physician. I have independently performed thekey portions of the history and physical exam. I have personally reviewed nursing notes, vital signs, and diagnostic studies including labs, imaging studies and EKGs. I have discussed the details of the case with the resident and agree with the assessment and plan as described in the resident's note, unless stated otherwise in my separate note. Did this case involve critical care? No documented in this encounter Miscellaneous Notes * Plan of Care - Nola Daniel RN - 08/19/2021 5:19 PM EDT D/C instructions given verbally and in writing, pt BRADEN. D/C'd IV per protocol. No s/s of distress. D/C summary routed to [facility]. Staff assist via w/c to east entrance for d/c to home with VNA. * Plan of Care - Nishant Macario RN - 08/19/2021 4:04 AM EDT OUTCOME EVALUATION NOTE: OUTCOME SUMMARY: Patient A&Ox4, VSS, resting between care. Denies pain. Denies nausea. Low UOP via flanagan catheter. 250cc bolus, IVF rate increased. UOP mildly improved. Urine lytes collected from flanagan with phlebotomy draw of AM labs. No BM this shift. Will continue to monitor. PLAN MOVING FORWARD: Monitor I&Os Pain management Monitor for nausea OOB and ambulation Discharge planning INDIVIDUALIZED FALL PREVENTION INTERVENTIONS: High fall risk Patient-specific fall risk factors per assessment: [current deficits]: hx of falls, 2 or more active diagnoses, recent surgery, PIV, continuous infusions, flanagan, generalized weakness, Assistance [level of assistance required for transfers and ambulation]: SBA Supervision [direct monitoring required during toileting and ADLs]: eyes on Surveillance [continuous indirect monitoring]: Bed/chair alarm, masimo, hourly rounding, room near unit station, NKE at bedside, yellow fall band on, environmental modifications (clutter-free environment, tubing secured, bed low, lighting adjusted, nonskid socks when OOB, bed wheels locked, call light with in reach, upper side rails x2, ID bands on) Patient-specific fall prevention interventions for sensory deficits provided, if applicable: [X] N/A CPG GOAL OUTCOME EVALUATION: * Plan of Care - Nola Daniel RN - 08/18/2021 5:53 PM EDT OUTCOME EVALUATION NOTE: OUTCOME SUMMARY: Low urine output - MD notified throughout the day Straight cath x 1 for UA No reported pain Drinking more than usual for her Will place f/c now per MD order to monitor UO overnight PLAN MOVING FORWARD: Monitor urine output Monitor PO intake INDIVIDUALIZED FALL PREVENTION INTERVENTIONS: bed alarm Patient-specific fall risk factors per assessment: [current deficits]: Recent surgery Assistance [level of assistance required for transfers and ambulation]: sba w fww Supervision [direct monitoring required during toileting and ADLs]: Hands on Surveillance [continuous indirect monitoring]: masimo Patient-specific fall prevention interventions for sensory deficits provided, if applicable: yes CPG GOAL OUTCOME EVALUATION: * Initial Assessments - Inge Vidal RN - 08/17/2021 3:12 PM EDT Office of Care Management Initial Assessment Inge Vidal RN reviewed record and discussed patient with Care Team. Source of Information: Team, bedside nurse, medical record, and Chart Review Reason for Hospitalization: Post-op complication Last COVID test: Lab Results Component Value Date COVID19 Detected (A) 09/04/2020 [id number] Invalid (A) 08/15/2021 Past medical History: Past Medical History: Diagnosis Date ??? Atrial fibrillation on eliquis ??? CVA (cerebral vascular accident) ??? Depression ??? Hyperlipemia ??? Hypertension Hospitalizations Within the Past 30 Days: previous discharge plan unsuccessful (post-op complication) Current Decision-Making Capacity: Self Advance Care Planning: Attempt Cardiopulmonary Resuscitation - Inpatient <no information> -Advanced Directive: Other If AD's have not been completed ADULT CHILDREN would be surrogate decision maker per [place] surrogate decision making law. (Only good for 180 days) Any patient receiving care at [facility] must abide by [place] law. The hierarchy for surrogate decision making is: (a) Patient???s spouse, or civil union partner or common law spouse unless there is a divorce proceeding, separation agreement, or restraining order limiting that person???s relationship with the patient. (b) Any adult son or daughter of the patient. (c) Either parent of the patient. (d) Any adult brother or sister of the patient. (e) Any adult grandchild of the patient. (f) Any grandparent of the patient. (g) Any adult aunt, uncle, niece, or nephew of the patient. (h) A close friend of the patient. (i) The agent with financial power of assistant food service director or a conservator appointed in accordance with RSA 464-A. (j) The guardian of the patient???s estate. Current Coping/Education/Information Needs: in ED - post-op complication Current Functional Ability: unable to assess (not out of bed - in ED at this time) Functional Status Prior to Admission: Assistive Equipment Home Environment: Others in the home: alone. Current Living Arrangements: home/apartment/condo. Accessibility Concerns:Per PT master on 08/16: Home set-up: lives alone in a senior housing 2nd floorapt with elevator access. Daughter is going to stay a few days with her on d/c. Bathroom Set-up: walk in shower with grab bar and shower chair. Stairs: none, uses elevator. Baseline Mobility: walks with cane. Does not drive, likes to read and make cards; retired from [employer] Equipment at home: rollator walker, cane, safety pull cords. Sleeps in a regular bed. Fall history: reports she falls occasionally, last fall was ~ 3 months ago in the bathroom on a rug.. Current DME: cane - straight Home Address (confirmed) [address] [place] [address] [address] [id number] Social & Family Supports: All names listed below confirmed with patient as current and correct Extended Emergency Contact Information Primary Emergency Contact: SANJAY CEBALLOS Address: [address] [place], [place] [id number] [place] [address] of [place] Relation: Child Secondary Emergency Contact: Narcisa Palumbo Address: [address] [place] [address] [facility] Mobile Relation: Child Current Care Provided by: self Provides Primary Care For: no one Caregiver if needed: homecare agency, child(guevara), adult Quality of Family relationships: involved, supportive Community Resources being provided currently: homecare agency Behavioral Health History: Anxiety and Depression Substance Use/Abuse (Listed) Social History Tobacco Use Smoking Status Former Smoker ??? Packs/day: 1.00 ??? Years: 15.00 ??? Pack years: 15.00 ??? Types: Cigarettes Smokeless Tobacco Never Used Tobacco Comment quit 40 yrs ago 0 No problems reported 1-2 Low level 3-5 Moderate level 6-8 Substantial level 9- 10 Severe level 0 to 7 points: Low risk 8 to 15 points: Medium risk 16 to 19 points: High risk 20 to 40 points: Addiction likely Other Pertinent/Service Specific Information[facility] patient at [facility] - SOC was never started with dc on 08/16/2021. Health/Prescription Coverage: Primary Insurance: MEDICARE Payor: MEDICARE / Plan: MEDICARE PART A & B / Product Type: *No Product type* / Secondary Insurance: N/A Prescription Coverage: YES Preferred Pharmacy: No Pharmacies Listed [place] Status: Patient is a : No Primary Care Provider: Patricia Garza, BLOOD BANK CUSTODIAN [phone] Patient/Caregiver Goals of Treatment: Return home with Resumption VNA services Potential Needs for Transition of Care: home health care Agency Referrals: Patient given freedom of choice of area VNAs, chooses to stay with: [facility] PHONE: [phone] FAX: [phone] Expected date of discharge: TBD Referral routed to the Graphics Editor for matching with agency/vendor and to provide any required information. Transportation: no concerns Transportation Anticipated: family or friend will provide Concerns to be Addressed: discharge planning Assessment: Patient is admitted to Thoracic service for post-op complication. Plan: Follow along for any change in discharge plans A member of the Care Management team will continue to monitor progress, follow for continuity of care and assist with transition of care planningElsy Ellis) PAULETTE Vidal RN/CM - Cellphone: [phone] Pager: [phone] Covering Service RN/CM * ED Triage - Julio Rabago Archana - 08/17/2021 7:08 AM EDT Pt reports multiple episodes of vomiting throughout the night. She reports that she had surgery fora hiatial hernia moday AM, was instructed to come to the ED with any vomiting. She reports pain, 5/10 at her incision site, RLQ. She denies CP, SOB, lightheadedness, dizziness. She is alert and oriented, speaking clearly in appropriate sentences. Skin pink, warm, dry. Strong irregular radial pulse. HPI (Adult) Stated Reason for Visit: Vomiting. S/P Surgery for hiatial hernia sunday AM documented in this encounter Plan of Treatment Not on file documented as of this encounter Procedures Procedure Name Priority Date/Time Associated Diagnosis Comments HC CREATININE - NON BLOOD Routine 08/19/2021 2:00 AM EDT HC SODIUM, URINE Timed 08/19/2021 2:00 AM EDT HC SODIUM, URINE Timed 08/19/2021 2:00 AM EDT HC CREATININE - NON BLOOD Routine 08/19/2021 2:00 AM EDT HEMOGRAM Routine 08/19/2021 1:54 AM EDT DIFFERENTIAL, AUTOMATED Routine 08/19/2021 1:54 AM EDT HC CBC,PLT & AUTO DIFF Routine 08/19/2021 1:54 AM EDT HC PHOSPHORUS, SERUM Routine 08/19/2021 1:54 AM EDT HC MAGNESIUM, SERUM Routine 08/19/2021 1 :54 AM EDT CK Routine 08/19/2021 1:54 AM EDT HC VENIPUNCTURE Routine 08/19/2021 1:54 AM EDT URINALYSIS MICROSCOPIC EXAM STAT 08/18/2021 3:51 PM EDT URINALYSIS WITH REFLEX CULTURE STAT 08/18/2021 3:51 PM EDT URINE CULTURE STAT 08/18/2021 3:51 PM EDT HC HEMOGRAM STAT 08/18/2021 2:44 PM EDT PHOSPHORUS STAT 08/18/2021 2:44 PM EDT MAGNESIUM STAT 08/18/2021 2:44 PM EDT HEPATIC FUNCTION PANEL STAT 08/18/2021 2:44 PM EDT HC VENIPUNCTURE STAT 08/18/2021 2:44 PM EDT LAVENDER TUBE HOLD Routine 08/18/2021 5: 58 AM EDT HC PHOSPHORUS, SERUM Routine 08/18/2021 5:58 AM EDT HC MAGNESIUM, SERUM Routine 08/18/2021 5 :58 AM EDT HC VENIPUNCTURE Routine 08/18/2021 5:58 AM EDT RAPID COVID-19 PCR ([facility]) STAT 08/17/2021 5:19 PM EDT EKG 12-LEAD STAT 08/17/2021 7:42 AM EDT HEMOGRAM STAT 08/17/2021 7:40 AM EDT DIFFERENTIAL, AUTOMATED STAT 08/17/2021 7:40 AM EDT HC CBC,PLT & AUTO DIFF STAT 08/17/2021 7:40 AM EDT BASIC METABOLIC PANEL STAT 08/17/2021 7:40 AM EDT documented in this encounter Results * (ABNORMAL) U Albumin/Cre Ratio (08/19/2021 2:00 AM EDT) Albumin / Creatinin Ratio, Urine 78(H) 0 - 29 mcg/mg Cr [facility] Comment: Reference Ranges: <30 mcg/mg: Normal 30-300 mcg/mg: Moderately increased albuminuria.* >300 mcg/mg: Severely increased albuminuria. * ACEI or ARB recommended if diabetic; suggested if BP>130/80 without diabetes ACEI or ARB strongly recommended if diabetic; recommended if BP>130/80 without diabetes Two of three specimens collected within a 3 to 6 month period should be abnormal before considering a patient to have albuminuria. Transient causes: exercise, fever, infection, CHF, marked hyperglycemia or hypertension. Persistent albuminuria indicates CKD and is an independent risk factor for ASCVD. ADA Standards of Medical Care in Diabetes-2016; KDIGO: Kidney International Supplements (2012) 2, 357? 362 Albumin, Urine 28.1 mg/L [facility] Creatinine, Urine 36 mg/dL [facility] Urine 08/19/2021 2:00 AM EDT 08/19/2021 2:07 AM EDT Narrative Resulting Agency Comment Spec In Lab Patrice Cárdenas MD URINE ORDERABLES Performing Organization Address City/[facility] Co de Phone Number [facility] [place] [address] * Sodium, urine, random (08/19/2021 2:00 AM EDT) Sodium, Urine 170 mmol/L [facility] Urine 08/19/2021 2:00 AM EDT 08/19/2021 2:07 AM EDT Narrative Resulting Agency Comment Spec In Lab Patrice Cárdenas MD URINE ORDERABLES Performing Organization Address [facility]/ZIP Co de Phone Number [facility] [place] [address] * Creatinine, urine, random (08/19/2021 2:00 AM EDT) Creatinine, Urine 34 mg/dL [facility] Urine 08/19/2021 2:00 AM EDT 08/19/2021 2:07 AM EDT Narrative Resulting Agency Comment Spec In Lab Patrice Cárdenas MD URINE ORDERABLES Performing Organization Address [facility] Co de Phone Number [facility] [place] [address] * Sodium, urine, random (08/19/2021 2:00 AM EDT) Sodium, Urine 168 mmol/L [facility] Urine 08/19/2021 2:00 AM EDT 08/19/2021 2:07 AM EDT Narrative Resulting Agency Comment Spec In Lab Patrice Cárdenas MD URINE ORDERABLES Performing Organization Address [facility] Co de Phone Number [facility] [place] [address] * CK (08/19/2021 1:54 AM EDT) Creatine Kinase 86 0 - 160 unit/L [facility] Blood Venous Draw / Unknown 08/19/2021 1:54 AM EDT 08/19/2021 2:06 AM EDT Narrative Resulting Agency Comment Spec In Lab Gerber Walton MD CHEMISTRY ORDERABLES Performing Organization Address [facility] Co de Phone Number [facility] [place] [address] * (ABNORMAL) Differential, Automated (08/19/2021 1:54 AM EDT) Neutrophil % 65.1 % [facility] Neutrophil Absolute 4.66 1.70 - 6.10 x10(3)/mc L [facility] Lymph % 19.8 % [facility] Lymphocytes Abs 1.4 0.9 - 3.2 x10(3)/mc L [facility] Monocyte % 8.8 % [facility] Monocyte Abs 0.6 0.3 - 0.9 x10(3)/[facility] Eos % 4.2 % [facility] Eosinophils Abs 0.3 0.0 - 0.4 x10(3)/[facility] Basophil % 1.0 % [facility] Baso Absolute 0.1 0.0 - 0.1 x10(3)/[facility] Immature Gran % 1.10 % [facility] Comment: Immature granulocytes(IG's)percentage and absolute count will include metamyelocytes, myelocytes, and promyelocytes. Blood smears from CBCs yielding IG's will be scanned manually for concordance. If this scan disagrees with the automated IG or if promyelocytes are noted, a manual differential will be performed. Immature Gran Absolute 0.08(H) 0.00 - 0.04 x10(3)/[facility] Blood 08/19/2021 1:54 AM EDT 08/19/2021 2:02 AM EDT Narrative Resulting Agency Comment Spec In Lab Ashley Ahn MD HEMATOLOGY ORDERABL ES [facility] [place] [address] * (ABNORMAL) Hemogram (08/19/2021 1:54 AM EDT) White Blood Cell 7.2 4.0 - 9.5 x10(3)/[facility] Red Blood Cell 3.67(L) 4.00 - 5.21 x10(6)/[facility] Hemoglobin 11.2(L) 11.7 - 15.5 g/dL [facility] Hematocrit 34.9(L) 35.7 - 45.8 % [facility] Mean Cell Volume 95.1(H) 82.6 - 94.4 fL [facility] Mean Cell Hemoglobin 30.5 27.1 - 32.0 pg [facility] Mean Cell Hemoglobin Concentration 32.1 31.7 - 35.0 g/dL [facility] Platelet 256 145 - 357 x10(3)/mc L [facility] RDW Standard Deviation 46.5(H) 37.0 - 46.0 fL [facility] RDW coefficient of variation 13.3 11.5 - 14.1 % [facility] Mean Platelet Volume 9.8 7.6 - 12.9 fL [facility] NRBC% auto 0.0 % [facility] NRBC Absolute 0.000 0.000 - 0.000 x10(3)/mc L [facility] Blood 08/19/2021 1:54 AM EDT 08/19/2021 2:02 AM EDT Narrative Resulting Agency Comment Spec In Lab Ashley Ahn MD HEMATOLOGY ORDERABL ES Performing Organization Address City/[facility]/ZIP Co de Phone Number [facility] [place] [address] * (ABNORMAL) Phosphorus (08/19/2021 1:54 AM EDT) Phosphorus 2.1(L) 2.5 - 4.5 mg/dL [facility] Blood 08/19/2021 1:54 AM EDT 08/19/2021 2:02 AM EDT Narrative Resulting Agency Comment Spec In Lab Patrice Cárdenas MD CHEMISTRY ORDERABLES Performing Organization Address City/[facility]/ZIP Co de Phone Number [facility] [place] [address] * Magnesium (08/19/2021 1:54 AM EDT) Magnesium 0.79 0.69 - 1.07 mmol/L [facility] Blood 08/19/2021 1:54 AM EDT 08/19/2021 2:02 AM EDT Narrative Resulting Agency Comment Spec In Lab Patrice Cárdenas MD CHEMISTRY ORDERABLES [facility] [place] [address] * (ABNORMAL) Basic Metabolic Panel (non-fasting) (08/19/2021 1:54 AM EDT) Glucose 89 65 - 199 mg/dL [facility] Comment:Diabetes: >=200 mg/d L plus symptoms Blood Urea Nitrogen 20(H) 8 - 18 mg/dL [facility] Creatinine 0.66(L) 0.70 - 1.20 mg/dL [facility] Sodium 139 135 - 145 mmol/L [facility] Potassium 3.6 3.5 - 5.0 mmol/L [facility] Comment: Please note: ??Patients with WBC >100,000 may have falsely elevated Potassium levels. ??For accurate Potassium quantification in these patients send serum separator tube (gold top) for subsequent determinations. ??Contact the Clinical Chemistry Laboratory if there are any questions. Chloride 106 98 - 107 mmol/L [facility] Carbon Dioxide 24 22 - 31 mmol/L [facility] Anion Gap 9 5 - 15 mmol/L [facility] Calcium 7.8(L) 8.5 - 10.5 mg/dL [facility] Est Glomerular Filtration Rate 82 >=60 mL/min/1. 73 m?? [facility] Comment: This patient? s estimated glomerular filtration rate (eGFR) is between 82 mL/min/1.73 m2 (patients with less muscle mass) and 95 mL/min/1.73 m2 (patients with more muscle mass) [...] and symptoms in addition to eGFR. Blood 08/19/2021 1:54 AM EDT 08/19/2021 2:02 AM EDT Narrative Resulting Agency Comment Spec In Lab Patrice Cárdenas MD CHEMISTRY ORDERABLES [facility] [place] [address] * (ABNORMAL) Urine culture (08/18/2021 3:51 PM EDT) Urine Culture Greater than 50,000 cfu/mL Klebsiella oxytoca(A) [facility] Organism Klebsiella oxytoca(A) [facility] Straight Catheter Urine 08/18/2021 3:51 PM EDT 08/18/2021 5:58 PM EDT Narrative Resulting Agency Comment Spec In Lab Organism Antibiotic Method Susceptibility Klebsiella oxytoca Amikacin VITEK 2 METHOD Sensitive Klebsiella oxytoca Ampicillin + Sulbactam VITEK 2 METH OD Intermediate Klebsiella oxytoca Aztreonam VITEK 2 METHOD Sensitive Klebsiella oxytoca Cefazolin VITEK 2 METHOD Sensitive Klebsiella oxytoca Ceftazidime VITEK 2 METHOD <=1: Sensitive Klebsiella oxytoca Ceftriaxone VITEK 2 METHOD Sensitive Klebsiella oxytoca Ertapenem VITEK 2 METHOD Sensitive Klebsiella oxytoca Gentamicin VITEK 2 METHOD Sensitive Klebsiella oxytoca Levofloxacin VITEK 2 METHOD Sensitive Comment: Levofloxacin and Ciprofloxacin may not adequately treat infections in critically ill patients even when isolates test susceptible in the laboratory. Contact Infectious Disease before using in critically ill patients. Klebsiella oxytoca Meropenem VITEK 2 METHOD <=0.25: Sensitive Klebsiella oxytoca Nitrofurantoin VITEK 2 METHOD Sensitive Klebsiella oxytoca Piperacillin/Tazobactam VITEK 2 MET HOD <=4: Sensitive Klebsiella oxytoca Tetracycline VITEK 2 METHOD Sensitive Klebsiella oxytoca Tobramycin VITEK 2 METHOD Sensitive Klebsiella oxytoca Trimethoprim/Sulfa VITEK 2 METHOD Sensitive Alicia [facility] NERAL ORDERABLES Performing Organization Address City/[facility]/ZIP Co de Phone Number [facility] [place] [address] * (ABNORMAL) Urinalysis Microscopic Exam (08/18/2021 3:51 PM EDT) RBC, Urine >100(H) 0 - 4 /HPF [facility] WBC, Urine 51(H) 0 - 5 /HPF [facility] WBC Clumps, Urine Occasiona l(A) None /HPF [facility] Comment:Interpret with cauti on, manual microscopic results are from an unspun specimen Bacteria, Urine Moderate( A) None /HPF [facility] Squamous Epithelial Cells Raw Data, Urine 1 <=4 /HPF [facility] Hyaline Casts, Urine 12(H) 0 - 2 /LPF [facility] Amorphous Crystals, Urine Moderate( A) None /HPF [facility] Comment:Interpret with cauti on, manual microscopic results are from an unspun specimen Straight Catheter Urine 08/18/2021 3:51 PM EDT 08/18/2021 4:29 PM EDT Narrative Resulting Agency Comment Spec In Lab Alicia GALVAN URINE ORDERABLES [facility] [place] [address] * (ABNORMAL) Urinalysis with reflex Culture (08/18/2021 3:51 PM EDT) Glucose, Urine Dipstick Negative Negative mg/dL [facility] Protein, Urine Dipstick 100(A) Negative mg/dL [facility] Bilirubin, Urine Dipstick Moderate(A) Negative mg/dL [facility] Comment: Clinical correlation required for positive Urine Bilirubin results as false positive may occur with some drugs and drug related products. If a false positive is suspected a serum total bilirubin should be considered if clinically indicated. Urobilinogen, Urine Dipstick Normal Normal mg/dL [facility] pH, Urn (dipstick) 5.0 5.0 - 8.0 [facility] Blood, Urine Dipstick Moderate(A) Negative mg/dL [facility] Ketone, Urine Dipstick Negative Negative mg/dL [facility] Nitrite, Urine Dipstick Positive(A) Negative [facility] Leukocytes, Urine Dipstick Moderate(A) Negative [facility] Appearance, Urine Dipstick Turbid(A) Clear [facility] Specific [place] Urine Automated >=1.030(A) 1.005 - 1.030 [facility] Color, Urine Dipstick [place](A) Yellow [facility] Reflex to Culture Yes [facility] Straight Catheter Urine 08/18/2021 3:51 PM EDT 08/18/2021 4:29 PM EDT Narrative Resulting Agency Comment Spec In Lab Patrice Cárdenas MD URINE ORDERABLES Performing Organization Address [facility] Co de Phone Number [facility] [place] [address] * Hepatic Function Panel (08/18/2021 2:44 PM EDT) Protein, Total 6.1 6.1 - 8.0 g/dL [facility] Albumin 3.5 3.2 - 5.2 g/dL [facility] Aspartate Aminotransferase 23 0 - 30 unit/L [facility] Alanine Aminotransferase 17 0 - 30 unit/L [facility] Alkaline Phosphatase 63 35 - 105 unit/L [facility] Bilirubin, Total 0.5 0.2 - 1.3 mg/dL [facility] Bilirubin, Direct 0.2 0.0 - 0.3 mg/dL [facility] Blood Venous Draw / Unknown 08/18/2021 2:44 PM EDT 08/18/2021 3:21 PM EDT Narrative Resulting Agency Comment Spec In Lab Kristopher Walsh MD CHEMISTRY ORDERABLES Performing Organization Address [facility]/ZIP Co de Phone Number [facility] [place] [address] * Phosphorus (08/18/2021 2:44 PM EDT) [facility] Phosphorus 3.1 2.5 - 4.5 mg/dL [facility] Comment:result rechecked-BC Blood Venous Draw / Unknown 08/18/2021 2:44 PM EDT 08/18/2021 3:21 PM EDT Narrative Resulting Agency Comment Spec In Lab Gerber Walton MD CHEMISTRY ORDERABLES Performing Organization Address City/[facility]/ZIP Co de Phone Number [facility] [place] [address] * Magnesium (08/18/2021 2:44 PM EDT) [facility] Magnesium 1.01 0.69 - 1.07 mmol/L [facility] Blood Venous Draw / Unknown 08/18/2021 2:44 PM EDT 08/18/2021 3:21 PM EDT Narrative Resulting Agency Comment Spec In Lab Gerber Walton MD CHEMISTRY ORDERABLES [facility] [place] [address] * (ABNORMAL) Hemogram (08/18/2021 2:44 PM EDT) [facility] White Blood Cell 9.7(H) 4.0 - 9.5 x10(3)/mc L [facility] Red Blood Cell 4.51 4.00 - 5.21 x10(6)/mc L [facility] Hemoglobin 14.0 11.7 - 15.5 g/dL [facility] Hematocrit 42.0 35.7 - 45.8 % [facility] Mean Cell Volume 93.1 82.6 - 94.4 fL [facility] Mean Cell Hemoglobin 31.0 27.1 - 32.0 pg [facility] Mean Cell Hemoglobin Concentration 33.3 31.7 - 35.0 g/dL [facility] Platelet 354 145 - 357 x10(3)/mc L [facility] RDW Standard Deviation 45.2 37.0 - 46.0 fL [facility] RDW coefficient of variation 13.2 11.5 - 14.1 % [facility] Mean Platelet Volume 9.8 7.6 - 12.9 fL [facility] NRBC% auto 0.0 % [facility] NRBC Absolute 0.000 0.000 - 0.000 x10(3)/mc L [facility] Blood 08/18/2021 2:44 PM EDT 08/18/2021 3:11 PM EDT Narrative Resulting Agency Comment Spec In Lab Patrice Cárdenas MD HEMATOLOGY ORDERABLE S Performing Organization Address City/State/[facility] Co de Phone Number [facility] [place] [address] * (ABNORMAL) Basic Metabolic Panel (non-fasting) (08/18/2021 2:44 PM EDT) Glucose 113 65 - 199 mg/dL [facility] Comment:Diabetes: >=200 mg/d L plus symptoms Blood Urea Nitrogen 24(H) 8 - 18 mg/dL [facility] Creatinine 0.87 0.70 - 1.20 mg/dL [facility] Sodium 141 135 - 145 mmol/L [facility] Potassium 3.9 3.5 - 5.0 mmol/L [facility] Comment: Please note: ??Patients with WBC >100,000 may have falsely elevated Potassium levels. ??For accurate Potassium quantification in these patients send serum separator tube (gold top) for subsequent determinations. ??Contact the Clinical Chemistry Laboratory if there are any questions. Chloride 105 98 - 107 mmol/L [facility] Carbon Dioxide 23 22 - 31 mmol/L [facility] Anion Gap 13 5 - 15 mmol/L [facility] Calcium 8.4(L) 8.5 - 10.5 mg/dL [facility] Est Glomerular Filtration Rate 62 >=60 mL/min/1. 73 m?? [facility] Comment: This patient? s estimated [...] and symptoms in addition to eGFR. Blood 08/18/2021 2:44 PM EDT 08/18/2021 3:11 PM EDT Narrative Resulting Agency Comment Spec In Lab Patrice Cárdenas MD CHEMISTRY ORDERABLES Performing Organization Address [facility] Co de Phone Number [facility] [place] [address] * Lavender Tube HOLD (08/18/2021 5:58 AM EDT) Lavender Hold Sample in lab. [facility] Blood Venous Draw / Unknown 08/18/2021 5:58 AM EDT 08/18/2021 6:02 AM EDT Gerber Walton MD HEMATOLOGY ORDERABLE S Performing Organization Address City/[facility] Co de Phone Number [facility] [place] [address] * (ABNORMAL) Phosphorus (08/18/2021 5:58 AM EDT) Phosphorus 1.2(Critic al) 2.5 - 4.5 mg/dL [facility] Comment: Called by: , Read back by: Patito Yoo , Date/Time:08/18/21 06:52. Blood 08/18/2021 5:58 AM EDT 08/18/2021 6:02 AM EDT Narrative Resulting Agency Comment Spec In Lab Patrice Cárdenas MD CHEMISTRY ORDERABLES Performing Organization Address City/[facility]/ZIP Co de Phone Number [facility] [place] [address] * Magnesium (08/18/2021 5:58 AM EDT) Magnesium 0.75 0.69 - 1.07 mmol/L [facility] Blood 08/18/2021 5:58 AM EDT 08/18/2021 6:02 AM EDT Narrative Resulting Agency Comment Spec In Lab Patrice Cárdenas MD CHEMISTRY ORDERABLES Performing Organization Address [facility] de Phone Number [facility] [place] [address] * (ABNORMAL) Basic Metabolic Panel (non-fasting) (08/18/2021 5:58 AM EDT) Pathologist [facility] Glucose 68 65 - 199 mg/dL [facility] Comment:Diabetes: >=200 mg/d L plus symptoms Blood Urea Nitrogen 23(H) 8 - 18 mg/dL [facility] Creatinine 0.82 0.70 - 1.20 mg/dL [facility] Sodium 142 135 - 145 mmol/L [facility] Potassium 3.5 3.5 - 5.0 mmol/L [facility] Comment: Please note: ??Patients with WBC >100,000 may have falsely elevated Potassium levels. ??For accurate Potassium quantification in these patients send serum separator tube (gold top) for subsequent determinations. ??Contact the Clinical Chemistry Laboratory if there are any questions. Chloride 108(H) 98 - 107 mmol/L [facility] Carbon Dioxide 24 22 - 31 mmol/L [facility] Anion Gap 10 5 - 15 mmol/L [facility] Calcium 7.7(L) 8.5 - 10.5 mg/dL [facility] Est Glomerular Filtration Rate 67 >=60 mL/min/1. 73 m?? [facility] Comment: This patient? s estimated glomerular filtration rate (eGFR) is between 67 mL/min/1.73 m2 (patients with less muscle mass) and 77 mL/min/1.73 m2 (patients with more muscle mass) [...] and symptoms in addition to eGFR. Blood 08/18/2021 5:58 AM EDT 08/18/2021 6:02 AM EDT Narrative Resulting Agency Comment Spec In Lab Patrice Cárdenas MD CHEMISTRY ORDERABLES [facility] [place] [address] * COVID-19 PCR (08/17/2021 5:19 PM EDT) SARS-CoV-2 RNA (Rapid) Not Detected Not Detected [facility] Comment: This result should be [...] using the Simplexa COVID-19 Direct Assay by Snapflow as authorized by the FDA issued Emergency [...] Department of Pathology and Laboratory Medicine at [facility], certified under the Clinical Laboratory Improvement Amendments [...] fact sheets at the following FDA website: https://www.fda.gov/medical-devices/gzwutytntwz-mebcfxh-6497-csljq-37-rdulikyep- use-a nlxudgwfjnjkh-hsrytji-pytmhph/qkxdi-eagtdywkisy-xbzz SARS-CoV-2 Source [facility] Nasopharyngeal Swab 08/17/20 5:19 PM EDT 08/17/2021 5:50 PM EDT Comment:Symptoms->Surveillan ce Narrative Resulting Agency Comment Spec In Lab Haylee Oviedo MD MICROBIOLOGY - GEN ERAL ORDERABLES [facility] [place] [address] * EKG 12 Lead (08/17/2021 7:42 AM EDT) Ventricular rate 131 BPM MUSE SYSTEM QRS Duration 84 ms MUSE SYSTEM Q-T Interval 330 ms MUSE SYSTEM QTC Calculated (Bezet) 487 ms MUSE SYSTEM Calculated R [employer] 24 degrees MUSE SYSTEM Calculated T [employer] 140 degrees MUSE SYSTEM INTERPRETATION Atrial fibrillation with rapid ventricular response Nonspecific ST and T wave abnormality Abnormal ECG When compared with ECG of 15-AUG-2021 12:17, Atrial fibrillation has replaced Sinus rhythm Vent. rate has increased BY ??61 BPM Confirmed by MD Cook Danette ([id number]) on 08/17/2021 4:41:56 PM MUSE SYSTEM 08/17/2021 7:42 AM EDT 08/17/2021 4:41 PM EDT Haylee Oviedo MD ECG ORDERABLES MUSE SYSTEM * (ABNORMAL) Differential, Automated (08/17/2021 7:40 AM EDT) Neutrophil % 88.4 % [facility] Neutrophil Absolute 15.03(H) 1.70 - 6.10 x10(3)/mc L [facility] Lymph % 3.8 % [facility] Lymphocytes Abs 0.6(L) 0.9 - 3.2 x10(3)/mc L [facility] Monocyte % 6.6 % [facility] Monocyte Abs 1.1(H) 0.3 - 0.9 x10(3)/mc L [facility] Eos % 0.0 % [facility] Eosinophils Abs 0.0 0.0 - 0.4 x10(3)/ L [facility] Basophil % 0.3 % [facility] Baso Absolute 0.0 0.0 - 0.1 x10(3)/mc L [facility] Immature Gran % 0.90 % [facility] Comment: Immature granulocytes(IG's)percentage and absolute count will include metamyelocytes, myelocytes, and promyelocytes. Blood smears from CBCs yielding IG's will be scanned manually for concordance. If this scan disagrees with the automated IG or if promyelocytes are noted, a manual differential will be performed. Immature Gran Absolute 0.15(H) 0.00 - 0.04 x10(3)/mc L [facility] Blood 08/17/2021 7:40 AM EDT 08/17/2021 7:51 AM EDT Narrative Resulting Agency Comment Spec In Lab Lynnette Live MD HEMATOLOGY ORDERAB LES [facility] [place] [address] * (ABNORMAL) Hemogram (08/17/2021 7:40 AM EDT) White Blood Cell 17.0(H) 4.0 - 9.5 x10(3)/[facility] Red Blood Cell 4.71 4.00 - 5.21 x10(6)/[facility] Hemoglobin 14.2 11.7 - 15.5 g/dL [facility] Hematocrit 43.0 35.7 - 45.8 % [facility] Mean Cell Volume 91.3 82.6 - 94.4 fL [facility] Mean Cell Hemoglobin 30.1 27.1 - 32.0 pg [facility] Mean Cell Hemoglobin Concentration 33.0 31.7 - 35.0 g/dL [facility] Platelet 341 145 - 357 x10(3)/[facility] RDW Standard Deviation 44.2 37.0 - 46.0 [facility] RDW coefficient of variation 13.2 11.5 - 14.1 % [facility] Mean Platelet Volume 9.6 7.6 - 12.9 fL [facility] NRBC% auto 0.0 % [facility] NRBC Absolute 0.000 0.000 - 0.000 x10(3)/[facility] Blood 08/17/2021 7:40 AM EDT 08/17/2021 7:51 AM EDT Narrative Resulting Agency Comment Spec In Lab Lynnette Live MD HEMATOLOGY ORDERAB LES [facility] [place] [address] * (ABNORMAL) Basic Metabolic Panel (non-fasting) (08/17/2021 7:40 AM EDT) Glucose 114 65 - 199 mg/dL [facility] Comment:Diabetes: >=200 mg/d L plus symptoms Blood Urea Nitrogen 19(H) 8 - 18 mg/dL [facility] Creatinine 0.88 0.70 - 1.20 mg/dL [facility] Sodium 142 135 - 145 mmol/L [facility] Potassium 3.5 3.5 - 5.0 mmol/L [facility] Comment: Please note: ??Patients with WBC >100,000 may have falsely elevated Potassium levels. ??For accurate Potassium quantification in these patients send serum separator tube (gold top) for subsequent determinations. ??Contact the Clinical Chemistry Laboratory if there are any questions. Chloride 104 98 - 107 mmol/L [facility] Carbon Dioxide 22 22 - 31 mmol/L [facility] Anion Gap 16(H) 5 - 15 mmol/L [facility] Calcium 8.3(L) 8.5 - 10.5 mg/dL [facility] Est Glomerular Filtration Rate 61 >=60 mL/min/1. 73 m?? [facility] Comment: This patient? s estimated glomerular filtration rate (eGFR) is between 61 mL/min/1.73 m2 (patients with less muscle mass) and 71 mL/min/1.73 m2 (patients with more muscle mass) [...] and symptoms in addition to eGFR. Blood 08/17/2021 7:40 AM EDT 08/17/2021 7:51 AM EDT Narrative Resulting Agency Comment Spec In Lab Haylee Oviedo MD CHEMISTRY ORDERABL ES [facility] [place] [address] documented in this encounter Visit Diagnoses Diagnosis Postoperative vomiting Atrial fibrillation with rapid ventricular response Atrial fibrillation Paraesophageal hernia Diaphragmatic hernia without mention of obstruction or gangrene Paraesophageal hernia Diaphragmatic hernia without mention of obstruction or gangrene documented in this encounter Admitting Diagnoses Diagnosis Paraesophageal hernia Diaphragmatic hernia without mention of obstruction or gangrene documented in this encounter Administered Medications Inactive Administered Medications - up to 3 most recent administrations Medication Order MAR Action Action Date Dose Rate Site amLODIPine (Norvasc) tablet 10 mg 10 mg, Oral, DAILY, First dose on Lin 08/18/21 at 0900, Until Discontinued, Routine Given 08/19/2021 9:04 AM EDT 10 mg Given 08/18/2021 8:34 AM EDT 10 mg bisacodyL (Dulcolax) suppository 10 mg 10 mg, Rectal, DAILY, First dose on Lin 08/18/21 at 1845, Until Discontinued, Routine Given 08/19/2021 10:45 AM EDT 10 mg cefTRIAXone (Rocephin) 1 g vial attach to sodium chloride 0.9% 50 mL Mini-Bag Plus 1 g, Intravenous, EVERY 24 HOURS, First dose on Lin 08/18/21 at 1730, Until Discontinued, Administer over 30 Minutes, Indication for (Active or Suspected): Urinary Tract/Pyelonephritis New Bag 08/18/2021 6:38 PM EDT 1 g 100 mL/hr citalopram (CeleXA) tablet 20 mg 20 mg, Oral, DAILY, First dose on Lin 08/18/21 at 0900, Until Discontinued, Routine Given 08/19/2021 9:04 AM EDT 20 mg Given 08/18/2021 8:34 AM EDT 20 mg docusate sodium (Colace) (10 mg/mL) oral liquid 100 mg 100 mg, Oral, DAILY, First dose on 08/17/21 at 1720, Until Discontinued, Routine Given 08/19/2021 9:0 4 AM EDT 100 mg Given 08/18/2021 8:34 AM EDT 100 mg enoxaparin (Lovenox) (60 mg/0.6 mL) subcutaneous injection 60 mg 60 mg, Subcutaneous, EVERY 12 HOURS SCHEDULED (2 times per day), First dose on Sun08/17/21 at 0927, Until Discontinued, Routine Given 08/18/2021 8:33 AM EDT 60 mg Given 08/17/2021 8:40 PM EDT 60 mg Given 08/17/2021 11:15 AM EDT 60 mg heparin (porcine) (5,000 units/1 mL) subcutaneous injection 5,000 Units 5,000 Units, Subcutaneous, EVERY 8 HOURS SCHEDULED, First dose on Sun08/18/21 at 2200, Until Discontinued, Routine Given 08/19/2021 6:05 AM EDT 5,000 Unit s Given 08/18/2021 9:40 PM EDT 5,000 Units ipratropium-albuteroL (Duoneb) 0.5 mg-3 mg(2.5 mg base)/3 mL nebulizer solution 3 mL 3 mL, Nebulization, 4 TIMES DAILY PRN, Starting on Sun08/18/21 at 0503, Until Sun08/19/21 at 2037, Wheezing, wheezing or shortness of breath, Routine ketorolac (Toradol) (15 mg/mL) injection 15 mg 15 mg, Intravenous, ONCE, 1 dose, On Sun08/17/21 at 1630, Routine Given 08/17/2021 4:37 PM EDT 15 mg lactated Ringers 250 mL IV bolus at 250 mL/hr, Intravenous, ONCE, 1 dose, On Lin 08/18/21 at 1345 New Bag 08/18/2021 1:06 PM EDT 250 mL/hr lactated Ringers 250 mL IV bolus Intravenous, ONCE, 1 dose, On Lin 08/18/21 at 2200, Recovery (Recovery-Hospital Unit) Continued Bag 08/18/2021 9:41 PM EDT lactated Ringers 500 mL IV bolus at 500 mL/hr, Intravenous, ONCE, 1 dose, On Sun08/17/21 at 1628 New Bag 08/17/2021 4:28 PM EDT 500 mL/hr lactated Ringers 500 mL IV bolus at 500 mL/hr, Intravenous, ONCE, 1 dose, On Sun08/18/21 at 1515 New Bag 08/18/2021 2:55 PM EDT 500 mL/hr lactated ringers infusion 125 mL/hr, Intravenous, CONTINUOUS, Starting on Sun08/17/21 at 0927, Until Sun08/19/21 at 0522, Recovery (Recovery-Hospital Unit) Rate/Dose Change 08/18/2021 9:41 PM EDT 125 mL/hr 125 mL/hr Rate/Dose Change 08/18/2021 5:26 PM EDT 75 mL/hr 75 mL/h r Rate/Dose Change 08/18/2021 4:47 PM EDT 75 mL/hr 75 mL/h r lactated ringers infusion 75 mL/hr, Intravenous, CONTINUOUS, Starting on Sun08/19/21 at 0615, Until Sun08/19/21 at 0707 Rate/Dose Change 08/19/2021 6:15 AM EDT 75 mL/hr 75 mL/hr magnesium citrate oral liquid 296 mL 296 mL, Oral, ONCE, 1 dose, On Sun08/19/21 at 0930, Routine Given 08/19/2021 9:05 AM EDT 296 mLs magnesium sulfate 2 g in sterile water 50 mL infusion 2 g, Intravenous, ONCE, 1 dose, On Lin 08/18/21 at 0600, Administer over 120 Minutes New Bag 08/18/2021 5:58 AM EDT 2 g 25 mL/hr magnesium sulfate 2 g in sterile water 50 mL infusion 2 g, Intravenous, ONCE, 1 dose, On Sun08/19/21 at 0500, Administer over 120 Minutes New Bag 08/19/2021 4:41 AM EDT 2 g 25 mL/hr metoprolol (LOPRESSOR) injection 10 mg 10 mg, Intravenous, EVERY 6 HOURS, First dose (after last modification) on Sun08/17/21 at 1815, Until Discontinued, Hold if SBP less than 90 Hold if HR less than 60 Given 08/18/2021 1:22 AM EDT 10 mg Given 08/17/2021 8:08 PM EDT 10 mg metoprolol (LOPRESSOR) injection 5 mg 5 mg, Intravenous, EVERY 6 HOURS, First dose on Sun08/17/21 at 1108, Until Discontinued, Hold if SBP less than 90 Hold if HR less than 60 Given 08/17/2021 11:43 AM EDT 5 mg metoprolol (LOPRESSOR) injection 5 mg 5 mg, Intravenous, ONCE, 1 dose, On Sun08/17/21 at 1335, Hold if SBP less than 90 Hold if HR less than 60 Given 08/17/2021 1:39 PM EDT 5 mg metoprolol (LOPRESSOR) injection 5 mg 5 mg, Intravenous, ONCE, 1 dose, On Sun08/19/21 at 0615 Given 08/19/2021 6:05 AM EDT 5 mg metoprolol succinate XL (Toprol-XL) tablet 50 mg 50 mg, Oral, DAILY, First dose on Lin 08/18/21 at 0745, Until Discontinued, DO NOT CRUSH OR OPEN, Routine Given 08/19/2021 9:04 AM EDT 50 mg Given 08/18/2021 8:34 AM EDT 50 mg ondansetron (pf) (Zofran) (2 mg/mL) injection 4 mg 4 mg, Intravenous, EVERY 6 HOURS PRN, Starting on Sun08/17/21 at 1240, Until Sun08/19/21 at 2037, Nausea Given 08/17/2021 12:56 PM EDT 4 mg pantoprazole (Protonix) injection 40 mg 40 mg, Intravenous, DAILY, First dose on Sun08/18/21 at 0900, Until Discontinued Given 08/19/2021 9:05 AM EDT 40 mg Given 08/18/2021 8:33 AM EDT 40 mg potassium phosphate (monobasic) (K-Phos) tablet 500 mg 500 mg, Oral, 4 TIMES DAILY WITH MEALS & NIGHTLY, First dose on Sun08/18/21 at 0800, Until Discontinued, Dissolve tablets in 6-8 oz of water; for best results, soak tablets in water for 2-5 minutes, then stir and give to patient., Routine Given 08/19/2021 12:00 PM EDT 500 mg Given 08/19/2021 8:00 AM EDT 500 mg Given 08/18/2021 9:40 PM EDT 500 mg potassium phosphate 15 mMol in sodium chloride 0.9% 250 mL 15 mmol, Intravenous, ONCE, 1 dose, On Lin 08/18/21 at 0745, Administer over 4 Hours, Administer over 4-6 hours New Bag 08/18/2021 11:11 AM EDT 15 mmol potassium phosphate 15 mMol in sodium chloride 0.9% 250 mL 15 mmol, Intravenous, ONCE, 1 dose, On Sun08/19/21 at 0445, Administer over 4 Hours, Administer over 4-6 hours New Bag 08/19/2021 6:27 AM EDT 15 mmol sennosides (Senokot) (1.76 mg/mL) oral liquid 17.6 mg 17.6 mg, Oral, DAILY, First dose on Sun08/17/21 at 2000, Until Discontinued, Routine Given 08/19/2021 9:04 AM EDT 17.6 mg Given 08/18/2021 8:34 AM EDT 17.6 mg sodium chloride 0.9 % (flush) (BD PosiFlush Normal Saline 0.9) flush 5 mL 5 mL, Intravenous, 2 TIMES DAILY, First dose on Sun08/17/21 at 2100, Until Discontinued, Recovery (Recovery-Hospital Unit), Routine Given 08/19/2021 9:05 AM EDT 5 mLs Given 08/18/2021 9:41 PM EDT 5 mLs Given 08/18/2021 9:00 AM EDT 5 mLs documented in this encounter Active and Recently Administered Medications Times are shown in EDT. Scheduled Medication Order 08/17/2021 08/18/2021 08/19/2021 amLODIPine (Norvasc) tablet 10 mg 10 mg, Oral, DAILY, First dose on Lin 08/18/21 at 0900, Until Discontinued, Routine 0834 (Given - Provider: Nola Daniel RN) 0904 (Given - Provider: Nola Daniel RN) bisacodyL (Dulcolax) suppository 10 mg 10 mg, Rectal, DAILY, First dose on Lin 08/18/21 at 1845, Until Discontinued, Routine 1845 (Not Given - Provider: Nola Daniel RN - Reason: Patient/family refused) 1045 (Given - Provider: Nola Daniel RN) cefTRIAXone (Rocephin) 1 g vial attach to sodium chloride 0.9% 50 mL Mini-Bag Plus 1 g, Intravenous, EVERY 24 HOURS, First dose on Lin 08/18/21 at 1730, Until Discontinued, Administer over 30 Minutes, Indication for (Active or Suspected): Urinary Tract/Pyelonephritis 183 (New Bag - Provider: Nola Daniel RN)1908 (Stopped - Provider: Nishant Macario RN) 1730 (Due) citalopram (CeleXA) tablet 20 mg 20 mg, Oral, DAILY, First dose on Sun08/18/21 at 0900, Until Discontinued, Routine 0834 (Given - Provider: Nola Daniel RN) 0904 (Given - Provider: Nola Daniel RN) docusate sodium (Colace) (10 mg/mL) oral liquid 100 mg 100 mg, Oral, DAILY, First dose on Sun08/17/21 at 1720, Until Discontinued, Routine 1720 (Not Given - Provider: Patito Yoo RN - Reason: Patient not available) 0834 (Given - Provider: Nola Daniel RN) 0904 (Given - Provider: Nola Daniel RN) enoxaparin (Lovenox) (60 mg/0.6 mL) subcutaneous injection 60 mg (CANCELED) 60 mg, Subcutaneous, EVERY 12 HOURS SCHEDULED (2 times per day), First dose on Sun08/17/21 at 0927, Until Discontinued, Routine 1115 (Given - Provider: Gayle Castellano RN)2040 (Given - Provider: Patito Yoo RN) 0833 (Given - Provider: Nola Daniel RN) heparin (porcine) (5,000 units/1 mL) subcutaneous injection 5,000 Units 5,000 Units, Subcutaneous, EVERY 8 HOURS SCHEDULED, First dose on Lin 08/18/21 at 2200, Until Discontinued, Routine 2140 (Given - Provider: Nishant Macario RN) 0605 (Given - Provider: Nishant Macario RN)1400 (Not Given - Provider: Nola Daniel RN - Reason: See comment - Comment: will d/c today) ketorolac (Toradol) (15 mg/mL) injection 15 mg (COMPLETED) 15 mg, Intravenous, ONCE, 1 dose, On Sun08/17/21 at 1630, Routine 1637 (Given - Provider: Gayle Castellano RN) lactated Ringers 250 mL IV bolus (COMPLETED) at 250 mL/hr, Intravenous, ONCE, 1 dose, On Sun08/18/21 at 1345 1306 (New Bag - Provider: Nola Daniel RN)1406 (Stopped - Provider: Nola Daniel RN) lactated Ringers 250 mL IV bolus (COMPLETED) Intravenous, ONCE, 1 dose, On Sun08/18/21 at 2200, Recovery (Recovery-Hospital Unit) 2141 (Continued Bag - Provider: Nishant Macario RN) lactated Ringers 500 mL IV bolus (COMPLETED) at 500 mL/hr, Intravenous, ONCE, 1 dose, On Sun08/17/21 at 1628 1628 (New Bag - Provider: Gayle Castellano RN)1728 (Stopped - Provider: Gayle Castellano RN) lactated Ringers 500 mL IV bolus (COMPLETED) at 500 mL/hr, Intravenous, ONCE, 1 dose, On Sun08/18/21 at 1515 1455 (New Bag - Provider: Nola Daniel RN)1555 (Stopped - Provider: Nola Daniel RN) magnesium citrate oral liquid 296 mL (COMPLETED) 296 mL, Oral, ONCE, 1 dose, On Sun08/19/21 at 0930, Routine 0905 (Given - Provider: Nola Daniel RN) magnesium sulfate 2 g in sterile water 50 mL infusion (COMPLETED) 2 g, Intravenous, ONCE, 1 dose, On Sun08/18/21 at 0600, Administer over 120 Minutes 0558 (New Bag - Provider: Patito Yoo RN)0758 (Stopped - Provider: Nola Daniel RN) magnesium sulfate 2 g in sterile water 50 mL infusion (COMPLETED) 2 g, Intravenous, ONCE, 1 dose, On Sun08/19/21 at 0500, Administer over 120 Minutes 0441 (New Bag - Provider: Nishant Macario RN)0641 (Stopped - Provider: Nishant Macario RN) metoprolol (LOPRESSOR) injection 10 mg (CANCELED) 10 mg, Intravenous, EVERY 6 HOURS, First dose (after last modification) on Sun08/17/21 at 1815, Until Discontinued, Hold if SBP less than 90 Hold if HR less than 60 2007 (Given - Provider: Patito Yoo RN) 012 (Given - Provider: Patito Yoo RN) metoprolol (LOPRESSOR) injection 5 mg (CANCELED) 5 mg, Intravenous, EVERY 6 HOURS, First dose on Sun08/17/21 at 1108, Until Discontinued, Hold if SBP less than 90 Hold if HR less than 60 1143 (Given - Provider: Gayle Castellano RN)1708 (Not Given - Provider: Patito Yoo RN - Reason: See comment) metoprolol (LOPRESSOR) injection 5 mg (COMPLETED) 5 mg, Intravenous, ONCE, 1 dose, On Sun08/17/21 at 1335, Hold if SBP less than 90 Hold if HR less than 60 1339 (Given - Provider: Gayle Castellano RN) metoprolol (LOPRESSOR) injection 5 mg (COMPLETED) 5 mg, Intravenous, ONCE, 1 dose, On Sun08/19/21 at 0615 0605 (Given - Provider: Nishant Macario RN) metoprolol succinate XL (Toprol-XL) tablet 50 mg 50 mg, Oral, DAILY, First dose on Sun08/18/21 at 0745, Until Discontinued, DO NOT CRUSH OR OPEN, Routine 0834 (Given - Provider: Nola Daniel RN) 0904 (Given - Provider: Nola Daniel RN) pantoprazole (Protonix) injection 40 mg 40 mg, Intravenous, DAILY, First dose on Sun08/18/21 at 0900, Until Discontinued 0833 (Given - Provider: Nola Daniel RN) 0905 (Given - Provider: Nola Daniel RN) potassium phosphate (monobasic) (K-Phos) tablet 500 mg 500 mg, Oral, 4 TIMES DAILY WITH MEALS & NIGHTLY, First dose on Sun08/18/21 at 0800, Until Discontinued, Dissolve tablets in 6-8 oz of water; for best results, soak tablets in water for 2-5 minutes, then stir and give to patient., Routine 0800 (Given - Provider: Nola Daniel RN)1240 (Given - Provider: Nola Daniel RN)1837 (Given - Provider: Nola Daniel RN)2140 (Given - Provider: Nishant Macario RN) 0800 (Given - Provider: Nola Daniel RN)1200 (Given - Provider: Nola Daniel RN)1700 (Not Given - Provider: Nola Daniel RN - Reason: See comment - Comment: pt d/c'd) potassium phosphate 15 mMol in sodium chloride 0.9% 250 mL (COMPLETED) 15 mmol, Intravenous, ONCE, 1 dose, On Lin 08/18/21 at 0745, Administer over 4 Hours, Administer over 4-6 hours 1111 (New Bag - Provider: Nola Daniel RN)1511 (Stopped - Provider: Nola Daniel RN) potassium phosphate 15 mMol in sodium chloride 0.9% 250 mL (COMPLETED) 15 mmol, Intravenous, ONCE, 1 dose, On Sun08/19/21 at 0445, Administer over 4 Hours, Administer over 4-6 hours 0627 (New Bag - Provider: Nishant Macario RN)1027 (Stopped - Provider: Nola Daniel RN) sennosides (Senokot) (1.76 mg/mL) oral liquid 17.6 mg 17.6 mg, Oral, DAILY, First dose on Sun08/17/21 at 2000, Until Discontinued, Routine 1999 (Not Given - Provider: Patito Yoo RN - Reason: Patient/family refused) 0834 (Given - Provider: Nola Daniel RN) 0904 (Given - Provider: Nola Daniel RN) sodium chloride 0.9 % (flush) (BD PosiFlush Normal Saline 0.9) flush 5 mL 5 mL, Intravenous, 2 TIMES DAILY, First dose on Sun08/17/21 at 2100, Until Discontinued, Recovery (Recovery[facility]Hospital Unit), Routine 2039 (Given - Provider: Patito Yoo RN) 0900 (Given - Provider: Nola Daniel RN)214 (Given - Provider: Nishant Macario RN) 0905 (Given - Provider: Nola Daniel RN) Continuous Medication Order 08/17/2021 08/18/2021 08/19/2021 lactated ringers infusion (CANCELED) 125 mL/hr, Intravenous, CONTINUOUS, Starting on Sun08/17/21 at 0927, Until Sun08/19/21 at 0522, Recovery (Recovery[facility]ospital Unit) 1144 (New Bag - Provider: Gayle Castellano RN)2039 (New Bag - Provider: Patito Yoo RN) 1446 (Rate/Dose Change - Provider: Nola Daniel RN)1647 (Rate/Dose Change - Provider: Nola Daniel RN)1726 (Rate/Dose Change - Provider: Nola Daniel RN)2141 (Rate/Dose Change - Provider: Nishant Macario RN) 0605 (Stopped - Provider: Nishant Macario RN) lactated ringers infusion (CANCELED) 75 mL/hr, Intravenous, CONTINUOUS, Starting on Sun08/19/21 at 0615, Until Sun08/19/21 at 0707 0615 (Rate/Dose Change - Provider: Nishant Macario RN) PRN Medication Order 08/17/2021 08/18/2021 08/19/2021 acetaminophen (Tylenol) (32.02 mg/mL) oral liquid 1,000 mg 1,000 mg, Oral, EVERY 6 HOURS PRN, Starting on Sun08/17/21 at 0925, Until Sun08/19/21 at 2036, Fever, Maximum dose of acetaminophen is 4000 mg from all sources in 24 hours. When ordered for pain, acetaminophen should be given even when other ordered pain medications are indicated. , Routine ipratropium-albuteroL (Duoneb) 0.5 mg-3 mg(2.5 mg base)/3 mL nebulizer solution 3 mL 3 mL, Nebulization, 4 TIMES DAILY PRN, Starting on Lin 08/18/21 at 0503, Until Sun08/19/21 at 2036, Wheezing, wheezing or shortness of breath, Routine lidocaine (Xylocaine) 1% (10 mg/mL) injection 3 mg 3 mg (0.3 mL), Subcutaneous, ONCE PRN, 1 dose, Starting on Sun08/17/21 at 1718, Until Sun08/19/21 at 2036, for discomfort with PIV insertion, Recovery (Recovery-Hospital Unit), Routine ondansetron (pf) (Zofran) (2 mg/mL) injection 4 mg 4 mg, Intravenous, EVERY 6 HOURS PRN, Starting on Sun08/17/21 at 1240, Until Sun08/19/21 at 2036, Nausea 1256 (Given - Provider: Gayle Castellano RN) polyethylene glycoL (Miralax) packet 17 g 17 g, Oral, DAILY PRN, Starting on Sun08/17/21 at 1718, Until Sun08/19/21 at 2036, Constipation, Routine sodium chloride 0.9 % (flush) (BD PosiFlush Normal Saline 0.9) flush 5-20 mL 5-20 mL, Intravenous, EVERY 1 MIN PRN, Starting on Sun08/17/21 at 1718, Until Sun08/19/21 at 2036, flush, Flush pertains to all indwelling lines. Flush per protocol found in the job aid using the link provided on this medication record., Recovery (Recovery[facility]Hospital Unit), Routine documented in this encounter Care Teams [employer]other Relationship Specialty Start Date End Date Patricia Garza, LAZARA [address] [place] [address] PCP - General Internal Medicine 04/02/20 documented as of this encounter
--- OUTSIDE RECORDS SUMMARY | 2024-06-03 01:48 | XMS_ITS | Encounter Summary ---
[place] [address] Care Team Providers Care Manager Truck Name Role Phone Patricia Garza APRN Primary Care Provider [phone] Reason for Visit * Auth/Cert Specialty Diagnoses / Procedures Referred By Amanuel centeno Referred To Contact Diagnoses Paraesophageal hernia Atrial fibrillation with rapid ventricular response Postoperative vomiting Referral ID Status Reason Start Date Expiration Date Visits Re quested Visits Authorized [id number] 1 1 Encounter Details Date Type Department Care Team (Late st Contact Info) Description 08/15/2021 7:30 AM EDT - 08/15/2021 12:15 PM EDT Surgery [place] [id number] Patrcie Cárdenas MD [facility] [place] [address] ROBOT XI LAPAROSCOPIC PARAESOPHAGEAL HERNIA REPAIR W/FUNDOPLASTY,W/O MESH (WRVU 26.6) Social History Tobacco Use Types Packs/Day Years [...] Sign Reading Time Taken Comments Blood Pressure 160/72 08/15/2021 11:45 AM EDT Pulse 71 08/15/2021 12:00 PM EDT Temperature 36.5 ??C (97.7 ??F) 08/15/2021 11:27 AM E DT Respiratory Rate 18 08/15/2021 12:00 PM EDT Oxygen Saturation 97% 08/15/2021 12:00 PM EDT Inhaled Oxygen Concentration - - Weight 61.8 kg (136 lb 4.8 oz) 08/15/2021 6:27 A M EDT Height 149.9 cm (4' 11) 08/15/2021 6:27 AM EDT Body Mass Index 28.63 08/15/2021 [...] Primary * Ilan Robb PA - Physician General Sales Manager Procedure: Procedure(s): ROBOT XI LAPAROSCOPIC PARAESOPHAGEAL HERNIA REPAIR W/FUNDOPLASTY,W/O MESH (WRVU 26.6) MODIFIER ROBOT,DAVINCI XI EGD, UPPER GI ENDOSCOPY Other Major [...] Medical [facility] on 1via the Same Day Program. She [...] who have questions please contact the health child care director that requested your imaging first. Pending Studies and Lab Data: No current [...] a nurse in the Thoracic Clinic at [phone]. After hours or on weekends or holidays please call: [phone] and ask to speak to the Thoracic Surgeon fuel verification technician. Exercise & Activity Level: As you recover [...] please call the thoracic surgery clinic at [phone]. Driving: No driving for 1 week or [...] the Thoracic Clinic or the Thoracic Surgeon fuel verification technician after hours. Please take over the counter [...] Time Provider Department Center 08/16/2021 1:30 PM [facility] DX ROOM 8 Xray [facility] Rad General Instructions None Future Appointments and Orders Future Orders Complete By Expires XR Chest PA & Lateral (Generic) [[id number] Custom] 08/30/2021 08/16/2022 Process Instructions: Scheduling Instructions: Questions: Where will study be performed?: [facility] Radiology Portable exam?: Reason for exam and clinical history: s/p robotic PEHR Clinical information / pimentel questions: recurrence, PTX, effusion, comparison, changes Stat read required?: Date of injury if applicable: Requested Time: Referral to Home Health - at DISCHARGE [[id number] CPT(R)] As directed Process Instructions: Scheduling Instructions: Comments: DOCUMENTATION FOR VNA SERVICES (INCLUDING THOSE PATIENTS WITH MEDICARE COVERAGE REQUIRING HOME VNA SERVICES AND/OR HOSPICE SERVICES) PATIENT'S LOCATION: Linda Fuller [address] [place] [id number] (home) Environment Friendly Landscape Designer's Name: self/family In discussion with the attending physician, it is certified that this patient is under their care and that they, or a Nurse Practitioner,Clinical Nurse specialist or Physician General Sales Manager who is working directly with them, had [...] for managing ADL's. HOME HEALTH CARE AGENCY: [facility]. PHONE: [phone] FAX: [phone] Start of care: within 24 to 48 [...] obtained from this patient's PCP: Patricia Garza, AXMINSTER WEAVER [address] [place] [place] [address] All VNA agencies which cover the area of patient's residence have been reviewed, either verbally timothy writing, and patient/family have chosen the home health care agency noted Questions: Agency name and contact information: [facility] Patient location post discharge: home What services are requested: Registered Nurse Physical Therapy Occupational Therapy Start date: Responsible MD post discharge contact info: Surgery and PCP Provider Contact Information: Primary Care Provider: Patricia Garza APRN [phone] Discharge References/Attachments: Discharge References/Attachments None For questions regarding this document or issues relating to this hospitalization on the Thoracic Surgery Service, please contact Dr. Cárdenas's office at . Signed: MANDY Castro 08/16/2021 CC: PCP: Patricia Garza, AXMINSTER WEAVER Referring: No referring provider defined for this [...] a nurse in the Thoracic Clinic at [phone]. After hours or on weekends or holidays please call: [phone] and ask to speak to the Thoracic [...] please call the thoracic surgery clinic at [phone]. Driving: No driving for 1 week or [...] the Thoracic Clinic or the Thoracic Surgeon fuel verification technician after hours. Please take over the counter [...] Time Provider Department Center 08/16/2021 1:30 PM [facility] DX ROOM 8 Xray [facility] Rad documented in this encounter Medications [...] of this encounter Progress Notes * Rolan Funze RN - 08/16/2021 6:02 PM EDT Pt IV removed as ordered. Pt tolerating some liquid diet. All pt belongings sent home with pt and daughter. Pt seen seen by autocad electrical designer, see note for details. Discharge instructions reviewed [...] referrals are placed. Patient requests referral to: [facility]. PHONE: [phone] FAX: [phone] Expected date of discharge: 08/16/2021 Referral routed to the Organ Assembler for matching with agency/vendor and to provide any required information. Mayela Vidal RN RN (Jonas)/SHANNON - Cellphone: [phone] Pager: [phone] Covering Service RN/CM * Donya [place] RD [...] in the interim. Donya [place]ton RD Pager: [phone] * Kwadwo Mosquera, PT - 08/16/2021 12:37 [...] 26.6) performed by Patrice Cárdenas MD at [facility] MAIN OR ??? PRO UPPER GI ENDOSCOPY, DIAGNOSTIC N/A 08/15/2021 EGD, UPPER GI ENDOSCOPY performed by Patrice Cárdenas MD at [facility] MAIN OR Social History: Home set-up: lives alone in a senior housing 2nd floor apt with elevator access. Daughter is going to stay a few days with her on d/c. Bathroom Set-up: walk in shower with grab bar and shower chair. Stairs: none, uses elevator. Baseline Mobility: walks with cane. Does not drive, likes to read and make cards; retired from [employer]. Equipment at home: rollator walker, cane, safety [...] abdominal pain. Vital Signs: Heart Rate: 87 (00=481 at rest, 106-136 with activity, end post rest 106.) BP: 132/84 SpO2: 92 % (91% with some SOB post activity, end 94%. ) O2 Device: None (Room air) Mental Status: alert, oriented to person, place, and time Vision: glasses adolescent medicine specialist, but not here. Skin: small incisions from [...] Physical Therapy: 27 KWADWO MOSQUERA, PT Pager: [phone] Physical Therapy Inpatient Rehabilitation Department * Elsy [...] 26.6) performed by Patrice Cárdenas MD at [facility] MAIN OR ??? PRO UPPER GI ENDOSCOPY, DIAGNOSTIC N/A 08/15/2021 EGD, UPPER GI ENDOSCOPY performed by Patrice Cárdenas MD at [facility] MAIN OR Social History: Patient lives [...] due to hearing impairment ?? Safety awareness: WFL Vision & Perception: ?? corrective lenses adolescent medicine specialist ?? glasses are not at hospital Communication: [...] will complete 2 grooming tasks at modified independence standing/seated at the sink. Pt will complete toileting routine at modified independence including transfer to the bathroom, clothing management, and hygiene. Pt will complete UB bathing and dressing in sitting after set up. Pt will complete LB dressing at modified independence using AE as needed. Pt will complete functional transfers and mobility at modified shirley for participation in (I)ADLs using self pacing [...] and measurable assessment of functional outcome. Pager: [phone] Elsy Anderson OT 08/16/2021 Occupational Therapy Rehabilitation Department * Rolan Funez RN - 08/15/2021 5:58 PM EDT OUTCOME EVALUATION NOTE: OUTCOME SUMMARY: Linda arrived to [facility] at 1500 from PACU. Pt is A/Ox4 and VSS on 2L NC. Pt oriented to new room, admitted to [facility] and call harris within reach. Pt [...] Ahn MD - 08/15/2021 3:38 PM EDT [facility] Department of Thoracic Surgery Inpatient Post Op Check Note Patient Name: Linda Fuller Patient : [id number] Patient Patient Location: [address] [place] [address] Attending Surgeon: PATRICE CÁRDENAS ID: Linda Fuller [...] Encounter Date Admission (Current) from 08/15/[address] [place] [address] Office Visit from 06/07/2021 in Thoracic Surgery at [facility] Weight 61.8 kg (136 lb 4.8 oz) [...] PCR Invalid (A) Not Detected SARS-CoV-2 Source LAND INSPECTOR Swab Respiratory Panel PCR Specimen: Nasopharyngeal Swab Symptoms->Surveillance Result Value Ref Range Resp Panel Source LAND INSPECTOR Swab Resp Panel PCR Negative Negative Adenovirus [...] QTC Calculated (Bezet) 490 ms Calculated P [place] 81 degrees Calculated R [place] 32 degrees Calculated T [place] 53 degrees INTERPRETATION Sinus rhythm with Premature [...] Ahn MD 08/15/2021 Thoracic Surgery Service Pager [phone] * Mary Perez RN - 08/15/2021 12:19 [...] MANDY Luis 08/15/2021 Thoracic Surgery Service Pager [phone] documented in this encounter Miscellaneous Notes * [...] Operative Note Patient Name: Linda Fuller : [id number] MR#: [id number] Case Date: 08/15/2021 Surgeon: Surgeon(s) and Role: * Patrice Cárdenas MD - Primary * Ilan Robb PA - Physician General Sales Manager Preoperative diagnosis: Giant paraesophageal hernia Postoperative diagnosis: Giant paraesophageal hernia Procedure(s) (LRB): ROBOT XI LAPAROSCOPIC PARAESOPHAGEAL HERNIA REPAIR W/FUNDOPLASTY,W/O MESH (WRVU 26.6) (N/A) MODIFIER ROBOTUSMANI XI (N/A) EGD, UPPER GI ENDOSCOPY (N/A) [...] SPECIMEN [place] 11 [id number] Giant paraesophageal hernia Hernia sac excision No [...] dissection was used to identify the fascia. Margie's were used on the fascia to lifted [...] closed using 0 Vicryl suture in a ebgime-wb-tgaoe fashion using a Mina Lara needle. Patient was placed supine and the gas was evacuated from the abdominal cavity and the ports were removed. The midline incision was closed with interrupted 0 Vicryl sutures under direct visualization. The wounds were then all irrigated and closed with a 3-0 Vicryl jourdan dermal fashion and Dermabond for the skin. MANDY Clark was my workforce development assistant during the entire procedure since no [...] 9:48 AM EDT Upper GI Endoscopy, Diagnostic ([id number]) Yes 08/15/2021 7:35 AM EDT Hiatal hernia MODIFIER ROBOT,DAVINCI XI Yes 08/15/2021 7:35 AM EDT Hiatal hernia Laparoscopy Repair Paraesophageal Hernia Incl Fundoplasty W/O Mesh ([id number]) Yes 08/15/2021 7:35 AM EDT Hiatal hernia RAPID COVID-19 PCR ([facility]) Routine 08/15/2021 7:13 AM EDT RESPIRATORY PANEL [...] who have questions please contact the health child care director that requested your imaging first. ? Narrative [...] patients who have questions please contactthe health child care director that requested your imaging first. Patrice Cárdenas MD IMG DX ORDERABLES * [...] who have questions please contact the health child care director that requested your imaging first. ? Narrative 08/16/2021 2:59 PM EDT EXAMINATION: XR FLUORO BARIUM SWALLOW (DOUBLE CONTRAST) CLINICAL HISTORY: s/p PEHR repair - please eval for recurrence TECHNIQUE: Single contrast esophagram was performed using 50 cc Omnipaque 300. Doping Supervisor AP radiograph of the lower chest/upper abdomen was obtained. COMPARISON: Barium swallow 04/26/2021 FINDINGS: Doping Supervisor radiograph demonstrates mild linear atelectasis at the [...] was obtained. COMPARISON: Barium swallow 04/26/2021 FINDINGS: Doping Supervisor radiograph demonstrates mild linear atelectasis at the [...] patients who have questions please contactthe health child care director that requested your imaging first. Patrice Cárdenas MD IMG FLUORO ORDERABLE S * EKG 12 Lead (08/15/2021 12:17 PM EDT) Ventricular rate 70 BPM MUSE SYSTEM Atrial Rate 70 BPM MUSE SYSTEM P-R Interval 208 ms MUSE SYSTEM QRS Duration 90 ms MUSE SYSTEM Q-T Interval 454 ms MUSE SYSTEM QTC Calculated (Bezet) 490 ms MUSE SYSTEM Calculated P [place] 81 degrees MUSE SYSTEM Calculated R [place] 32 degrees MUSE SYSTEM Calculated T [place] 53 degrees MUSE SYSTEM INTERPRETATION Sinus rhythm [...] Report (08/15/2021 9:48 AM EDT) Final Diagnosis [id number] ? Location: [facility]; [facility]; The signing pathologist has (i) examined the relevant preparation(s) for the specimen(s) and (ii) rendered or confirmed the diagnosis(es). . ?Surgical Pathology DIAGNOSIS A - Fibromembranous tissue, hernia sac: Gross surgical pathology examination. Electronically signed by: ?Hayley Echavarria MD Verified: ??08/19/2021 20:48 ??Pathologist Performed at: ??-[facility] Dept. of Pathology, [place], [place] SPECIMEN(S) SUBMITTED A - Hernia sac, excision (1) CLINICAL INFORMATION clinically giant paraesophageal hernia SPECIMEN PROCESSING A - Labeled/Fixative: Hernia sac, fresh. Quantity/Size: Two, aggregating 8.4 x 5.3 x 0.3 cm. Tissue Description: Adame-pink fibromembranous tissue. Sections/Processin g: No sections submitted, gross diagnosis only ??pps 08/19/2021 8:48 PM EDT [facility] HERNIA SAC / Unknown 08/15/2021 9:48 AM EDT 08/15/2021 9:48 AM EDT Patrice Cárdenas MD PATHOLOGY/CYTOLOGY O RDERABLES [facility] [place] [address] * Specimen to Pathology (08/15/2021 9:48 AM EDT) AP Specimen 08/15/2021 9:48 AM EDT 08/15/2021 9:48 AM EDT Narrative [facility] - 08/15/2021 9:48 AM EDT Specimen requisition ordered. ??Separate Pathology report to follow Patrice Cárdenas MD PATHOLOGY/CYTOLOGY O RDERABLES [facility] [place] [address] * Respiratory Panel PCR (08/15/2021 7:13 AM EDT) Respiratory Panel Source LAND INSPECTOR Swab [facility] Respiratory Panel PCR Negative Negative [facility] Comment: Respiratory Panels are performed on the Segetis, using multiplexed PCR nucleic acid detection. ??Negative results do not preclude respiratory infection and should not be used as the sole basis for diagnosis, treatment or other management decisions. Adenovirus Not Detected Not Detected [facility] Coronavirus HKU1 Not Detected Not Detected [facility] Coronavirus NL63 Not Detected Not Detected [facility] Coronavirus 229E Not Detected Not Detected [facility] Coronavirus OC43 Not Detected Not Detected [facility] SARS-CoV-2 Not Detected Not Detected [facility] Comment: Testing for SARS-CoV-2 (Severe acute respiratory syndrome coronavirus 2) to aid in the diagnosis of COVID-19 is performed using the BioFire Respiratory Panel 2.1 (Sales Layer) as authorized by the FDA issued Emergency Use Authorization (EUA). This panel also tests for multiple other viral and bacterial pathogens. This assay is intended for In-vitro Diagnostic (IVD) use with nasopharyngeal swabs in viral transport media. The assay is performed based on the instructions for use and additional guidance provided by the FDA. Testing is performed in laboratories within the [facility], each of which is certified under [...] fact sheets at the following FDA website: https://www.fda.gov/medical-devices/ugtnpjnelmn-tezgfkg-9708-ktsex-95-wwrhrwdcg- use-a kasbrsnjgebps-qsnthte-vwdcqsi/upvxi-xedqljoeyke-wmqm Human Metapneumovirus Not Detected Not Detected [facility] Human Rhinovirus/Enterov irus Not Detected Not Detected [facility] Influenza A Not Detected Not Detected [facility] Influenza B Not Detected Not Detected [facility] Parainfluenza 1 Not Detected Not Detected [facility] Parainfluenza 2 Not Detected Not Detected [facility] Parainfluenza 3 Not Detected Not Detected [facility] Parainfluenza 4 Not Detected Not Detected [facility] Respiratory Syncytial Virus Not Detected Not Detected [facility] Chlamydophila pneumoniae Not Detected Not Detected [facility] Mycoplasma pneumoniae Not Detected Not Detected [facility] Nasopharyngeal Swab Other / Unknown 08/15 7:13 AM EDT 08/15/2021 8:19 AM EDT Comment:Symptoms->Surveillan ce Narrative Resulting Agency Comment Spec In Lab Ilan GALVAN MICROBIOLOGY - GENER AL ORDERABLES [facility] [place] [address] * (ABNORMAL) COVID-19 PCR (08/15/2021 7:13 AM EDT) SARS-CoV-2 RNA (Rapid) Invalid( A) Not Detected [facility] Comment: This result should [...] using the Simplexa COVID-19 Direct Assay by [employer] as authorized by the FDA issued Emergency [...] Department of Pathology and Laboratory Medicine at [facility], certified under the Clinical Laboratory Improvement [...] fact sheets at the following FDA website: https://www.fda.gov/medical-devices/qnfjxmwczdg-uesmnxe-0250-nsqri-83-jbijcdsxi- use-a rllturdceqstz-hpkxkpn-nvyhgsf/vfgug-ynvqgnimbct-tpxn SARS-CoV-2 Source LAND INSPECTOR Swab [facility] Nasopharyngeal Swab 08/15/20 7:13 AM EDT 08/15/2021 8:19 AM EDT Comment:Symptoms->Surveillan ce Narrative Resulting Agency Comment Spec In Lab Patrice Cárdenas MD MICROBIOLOGY - GENER AL ORDERABLES Performing Organization Address [facility] Co de Phone Number [facility] [place] [address] * POCT Glucose (08/15/2021 6:34 AM EDT) Glucose, POC 95 65 - 199 mg/dL [facility] Comment: Supplemental ranges: <140 mg/dL before meals <180 mg/dL all other times of the day Blood 08/15/2021 6:34 AM EDT 08/15/2021 6:34 AM EDT Patrice Cárdenas MD POINT OF CARE TEST O RDERABLES Performing Organization Address [facility] Co de Phone Number [facility] [place] [address] documented in this encounter Visit Diagnoses Diagnosis [...] Given 08/15/2021 6:30 PM EDT 1,000 mg BUpivacaine (pf) (Marcaine) (5 mg/mL) 0.5% injection ONCE PRN, Starting on Sun08/15/21 at 0853, Until Sun08/16/21 at 2026, Intra-Operative (Intra-Procedure), Routine Given 08/15/2021 8:53 AM EDT 20 mLs 19- Surgical Site buPROPion (Wellbutrin) tablet 75 mg 75 mg, [...] subcutaneous injection 5,000 Units 5,000 Units, Subcutaneous, SIDE TRIMMER TO O.R., 1 dose, On Sun08/15/21 at [...] for procedure)1200 (Not Given - Provider: Angela Paige, PAULETTE - Reason: NPO) buPROPion (Wellbutrin) tablet 75 mg 75 mg, Oral, 2 TIMES DAILY, First dose on Sun08/15/21 at 2100, Until Discontinued, Please crush and dissolve, Routine 2004 (Given - Provider: Rajani Epps, PAULETTE) 0900 (Not Given - Provider: Angela Paige, RN - Reason: NPO) citalopram (CeleXA) tablet 20 mg 20 mg, Oral, DAILY, First dose on Sun08/15/21 at 1530, Until Discontinued, Please crush and dissolve in water, Routine 1528 (Given - Provider: Rolan Funez RN) 0900 (Not Given - Provider: Angela Paige, PAULETTE - Reason: NPO) clindamycin (Cleocin) 900 mg in dextrose 5% 50 mL infusion (COMPLETED) 900 mg, Intravenous, SIDE TRIMMER TO O.R., 1 dose, On Sun08/15/21 at [...] Funez RN)2100 (Not Given - Provider: Rajani Epps, PAULETTE - Reason: Patient/family refused) 0900 (Not Given - Provider: Angela aPige, PAULETTE - Reason: NPO)1515 (Given - Provider: Angela Paige, RN) fenofibrate micronized (Lofibra) capsule 67 mg 67 mg, Oral, DAILY WITH BREAKFAST, First dose on Sun08/16/21 at 0800, Until Discontinued, Please dissolve in water 0800 (Not Given - Provider: Rolan Funez RN - Reason: NPO) heparin (porcine) (5,000 units/1 mL) subcutaneous injection 5,000 Units (COMPLETED) 5,000 Units, Subcutaneous, SIDE TRIMMER TO O.R., 1 dose, On Sun08/15/21 at [...] RN)2332 (Given - Provider: Rajani Epps, PAULETTE) 0650 (Given - Provider: Rajani Epps, PAULETTE)1513 (Given - Provider: Angela Paige, PAULETTE) iohexoL (Omnipaque) (300 mg/mL) injection solution 100 mL (COMPLETED) 100 mL, Oral, ONCE, 1 dose, On Sun08/16/21 at 1445, Warning Vesicant/Irritant Medication , Routine 1445 (Given - Provid er: Rosemary Varner - Comment: Apr [id number]) ipratropium (Atrovent) 0.02 % nebulizer solution 0.5 mg 0.5 mg, Nebulization, EVERY 6 HOURS, First dose on Sun08/15/21 at 1530, Until Discontinued, Routine 1502 (Given - Provider: Rolan Funez RN)2131 (Given - Provider: Rajani Epps RN) 0333 (Given - Provider: Rajani Epps, PAULETTE)0855 (Given - Provider: Rolan Funez, PAULETTE)1513 (Given [...] RN) 0900 (Not Given - Provider: Angela Paige, PAULETTE - Reason: NPO) pantoprazole (Protonix) injection 40 mg 40 mg, Intravenous, DAILY, First dose on Sun08/15/21 at 1530, Until Discontinued 1528 (Given - Provider: Rolan Funez RN) 0855 (Given - Provider: Rolan Funez, PAULETTE) sennosides (Senokot) (1.76 mg/mL) oral liquid 8.8 mg 8.8 mg, Oral, 2 TIMES DAILY, First dose on Sun08/16/21 at 2100, Until Discontinued, Routine sodium chloride 0.9 % (flush) (BD PosiFlush Normal Saline 0.9) flush 5 mL 5 mL, Intravenous, 2 TIMES DAILY, First dose on Sun08/15/21 at 2100, Until Discontinued, Recovery (Recovery-Hospital Unit), Routine 2005 (Given - Provider: Rajani Epps, RN) 1300 (Given - Provider: Rolan Funez, RN) sugammadex (Bridion) 100 mg/mL injection 120 [...] Unit) 1502 (New Bag - Provider: Rolan Funez, PAULETTE) PRN Medication Order 08/14/2021 08/15/2021 08/16/2021 acetaminophen (Tylenol) (32.02 mg/mL) oral liquid 650 mg 650 mg, Oral, EVERY 4 HOURS PRN, Starting on Sun08/16/21 at 1706, Until Sun08/16/21 at 202, Fever, Maximum dose of acetaminophen is 4000 [...] documented as of this encounter Care Teams Manager Truck Relationship Specialty Start Date End Date Patricia Garza APRN [id number] [place] [address] PCP - General Internal Medicine 04/02/20 documented as of this encounter
--- OUTSIDE RECORDS SUMMARY | 2024-06-03 01:49 | XMS_ITS | Encounter Summary ---
Author Organization [facility] [place] [address] Care Team Providers Care Network Relay Tester Name Role Phone Patricia Garza APRN Primary Care Provider Encounter Details Date Type Department Care Team (Late st Contact Info) Description 06/21/2021 Ancillary Procedure [place] [address] [facility] [place] [address] Social History Tobacco Use Types Packs/Day Years [...] FILM LIBRARY STORAGE ONLY NUCLEAR MEDICINE Routine 06/21/2021 12:00 AM EDT documented in this encounter Results * Film Library- Storage Only nuclear medicine (06/21/2021 12:00 AM EDT) Narrative [facility] - 06/23/2021 1:04 PM EDT This exam is auto-finalizing. It's purpose is for storage only. Hal Marroquin MD IM FILM LIBRARY ORD ERABLES [place], [place] documented in this encounter Visit Diagnoses Not on filedocumented in this encounter Care Teams Network Relay Tester Relationship Specialty Start Date End Date Patricia Garza, BISTRO SERVER [address] [place] [address] PCP - General Internal Medicine 04/02/20 documented as of this encounter
--- OUTSIDE RECORDS SUMMARY | 2024-06-03 01:49 | XMS_ITS | Encounter Summary ---
[place] [address] Care Team Providers Care Ladies Underwear Operator Name Role Phone Patricia Garza APRN Primary Care Provider [phone] Encounter Details Date Type Department Care Team ([facility] st Contact Info) Description 05/03/2021 Telephone [place] [address] Merna Dunbar Social History Tobacco Use Types Packs/Day Years [...] encounter Miscellaneous Notes * Telephone Encounter - Merna Dunbar - 05/03/2021 9:24 AM EDT ESOPHAGEAL MANOMETRY CLINICAL SAFETY CHECKLIST 05/03/2021 Merna Fuller [address] [place] [address] [address] [facility] [id number] : 1940 REFERRING PROVIDER: PATRICE CÁRDENAS [[id number]] PRIMARY CARE PROVIDER: Patricia Garza APRN PRIMARY SYMPTOM (PROCEDURE INDICATION): other: SAFETY QUESTIONS HISTORY OF TRANSSPHENOIDAL OR PITUITARY SURGERY? no IF YES, please inform the patient that the test cannot be scheduled due to safety concerns about testing, and the patient should speak with their provider to consider alternative testing. The tree trimmer should also contact the provider's office directly to notify them that we are unable to schedule due to a contraindication to testing. Then, delete the remainder of this checklist and close out thereferral. HISTORY OF NASAL SURGERY IN THE LAST SIX MONTHS? no IF YES: PT CANNOT BE SCHEDULED DUE TO SAFETY CONCERNS until we receive documented clearance by their ENT provider. Then, delete the remainder of this checklist and close out the referral. QUESTIONS FOR THE PATIENT DIABETIC? no Diabetic patients should speak with their PCP or managing provider at least two weeks before the test to ask what medication or insulin adjustments are needed for testing. If the patient feels ill while fasting due to diabetes, it is OK to have a little apple juice - just enough to feel better. Patients fast 8 hours before testing and the test lasts 1 hour. ALLERGIC TO LIDOCAINE, BENZOCAINE? no (OK to schedule procedure but please document type of allergy if present) BLOOD THINNERS SUCH PLAVIX, COUMADIN, PRADAXA? Yes (pt does not have to stop any blood thinners for this procedure) DOES THE PATIENT USE A WHEELCHAIR? No VERBAL PATIENT INSTRUCTIONS The written instructions are very important for the patient to review and contain specific dietary and medication instructions prior to testing. These instructions will give the patient the most accurate test result. The patient should speak with their referring provider or our office if they have any questions. APPOINTMENT NOTES TEMPLATE HREM, symptom: other: Hiatal Hernia , RMD: PATRICE CÁRDENAS [[id number]], PCP: Patricia Garza APRN, wheelchair: No, blood thinners: Yes, allergy to lidocaine/benzocaine/novocaine: No (At exit, the RMD for appointment notes is the GI provider who saw the patient) documented in this encounter Plan of Treatment Not on file documented as of this encounter Visit Diagnoses Not on filedocumented in this encounter Care Teams Ladies Underwear Operator Relationship Specialty Start Date End Date Patricia Garza APRN [address] [place] [address] PCP - General Internal Medicine 04/02/20 documented as of this encounter
--- OUTSIDE RECORDS SUMMARY | 2024-06-03 01:49 | XMS_ITS | Encounter Summary ---
Author Organization [facility] [place] [address] Care Team Providers Care Education Dean Name Role Phone Unavailable Primary Care Provider Unavailabl e Encounter Details Date Type Department Care Team (Late st Contact Info) Description 01/10/2020 Ancillary Procedure [place] [address] Hal Marroquin MD [facility] [address] [place] [address] Social History Tobacco Use Types Packs/Day Years [...] Associated Diagnosis Comments FILM LIBRARY STORAGE ONLY CT CHEST ABDOMEN PELVIS Routine 01/10/2020 12:00 AM EDT documented in this encounter Results * Film Library- Storage Only CT Chest Abdomen Pelvis (01/10/2020 12:00 AM EDT) Narrative [facility] - 04/12/2020 5:29 PM EDT This exam is auto-finalizing. It's purpose is for storage only. Hal Marroquin MD IMG FILM LIBRARY ORD ERABLES [facility] documented in this encounter Visit Diagnoses Not on filedocumented in this encounter
--- OUTSIDE RECORDS SUMMARY | 2024-06-03 01:49 | XMS_ITS | Encounter Summary ---
[place] [address] Care Team Providers Care Stock Patcher Name Role Phone Patricia Garza APRN Primary Care Provider Encounter Details Date Type Department Care Team (Late st Contact Info) Description 04/12/2020 Telephone H[place]ology [place] [id number] Carey Shah, GUME Social History Tobacco Use Types Packs/Day Years Used Date Smoking Tobacco: Never Assessed Sex and Gender Information Value Date Recorded Sex Assigned at Not on file Gender Identity Not on file Sexual Orientation Not on file documented as of this encounter Miscellaneous Notes * Telephone Encounter - Carey Genao, GUME - 04/12/2020 4:08 PM EDT Called spoke with patient to provide information on caregiver, mask and screening guidelines. ??? One caregiver will be allowed to assist and wait with the patient in the waiting area. ??? When it is time for the appointment, a staff member will come to the waiting room and take the patient only into the exam room to obtain vital signs and complete other pre-appointment tasks. ??? Caregivers will be asked to remain in the waiting room as space is extremely limited in our exam rooms. This helps us maintain physical distancing and meet safety recommendations during this CoVID 19 pandemic. ??? If the provider would like to speak with the caregiver during any portion of the visit, they will invite the caregiver into the exam room. ??? If the patient is coming to the appointment alone but would like a caregiver to be a part of their medical care and decision making, the patient should arrive to the appointment with the caregiver's phone number, and the provider will call the caregiver during the appointment. SCREENING: ??? Please arrive at least 15-30 minutes in advance of your appointment to allow for the screening process at the door. We will screen you, and anyone with you, for CoVid symptoms and take your temperature. All patients, caregivers, and staff are being screened each time they enter the facility. MASKS: ??? Please be aware that you will need to wear a mask while you are at the hospital. ??? You will be allowed to wear your own mask if you have one, and if you don't, we will give you one to wear. ??? If you are symptomatic you will need to wear a [facility]-issued mask. PHONE SCREENING: ??? In order for us to be able to make the best plan to provide your care safely, we need to ask you some screening questions. o Are you currently experiencing any new (within the past 14 days) shortness of breath, cough, nasal congestion or drainage, or fever? No o Have you recently been exposed to anyone with CoVID 19? No o Do you or anyone in your household have a CoVID19 test pending or been tested recently? No ??? If you develop any of these symptoms prior to your appointment, please contact the Cancer Center for further instructions before coming to the hospital. documented in this encounter Plan of Treatment Not on file documented as of this encounter Visit Diagnoses Not on filedocumented in this encounter Care Teams Stock Patcher Relationship Specialty Start Date End Date Patricia Garza APRN [address] [place] [address] PCP - General Internal Medicine 04/02/20 documented as of this encounter
--- OUTSIDE RECORDS SUMMARY | 2024-06-03 01:49 | XMS_ITS | Encounter Summary ---
[place] [address] Care Team Providers Care Transportation Security Officer Name Role Phone Patricia Garza APRN Primary Care Provider [phone] Encounter Details Date Type Department Care Team (Late st Contact Info) Description 07/26/2021 Telephone [place] [id number] Luis E Meyer Social History Tobacco Use Types Packs/Day Years [...] encounter Miscellaneous Notes * Telephone Encounter - Luis E Meyer - 07/26/2021 2:46 PM EDT Call from Narcisa Palumbo (patient's daughter). Patient received a phone call regarding surgery and contacted Narcisa somewhat confused on the plan. Narcisa plans to come from [place] for the surgery, sh just needs direction. Spoke to Livier Thoracic RN who indicated that [facility] cardiology is scheduling a coronary CTA and echo that needs to be completed prior to surgery. This information was relayed to Ms. Palumbo, who will contact [facility] cardiology. Ms. Palumbo was advised to contact Thoracic Surgery with any additional questions or concerns. documented in this encounter Plan of Treatment Not on file documented as of this encounter Visit Diagnoses Not on filedocumented in this encounter Care Teams Transportation Security Officer Relationship Specialty Start Date End Date Patricia Garza APRN [address] [place] [address] PCP - General Internal Medicine 04/02/20 documented as of this encounter
--- OUTSIDE RECORDS SUMMARY | 2024-06-03 01:49 | XMS_ITS | Encounter Summary ---
[place] [address] Care Team Providers Care Bundle Clerk Name Role Phone Patricia Garza APRN Primary Care Provider Encounter Details Date Type Department Care Team (Late st Contact Info) Description 04/27/2021 Telephone [place] [address] Juan Stovall Social History Tobacco Use Types Packs/Day Years [...] encounter Miscellaneous Notes * Telephone Encounter - Juan Stovall - 04/27/2021 4:19 PM EDT Inbound/Outbound: Outbound Spoke to Patient/Left Message: Unable to leave message Notes: Outbound call to patient to schedule motility lab testing from referral. Unable to leave voicemail as mailbox has not been set up. Sending letter. Return calls can be handled by: Motility Lab Maintenance Mechanic Telephone documented in this encounter Plan of Treatment Not on file documented as of this encounter Visit Diagnoses Not on filedocumented in this encounter Care Teams Bundle Clerk Relationship Specialty Start Date End Date Patricia Garza, LAZARA [address] [place] [address] PCP - General Internal Medicine 04/02/20 documented as of this encounter
--- OUTSIDE RECORDS SUMMARY | 2024-06-03 01:49 | XMS_ITS | Encounter Summary ---
[place] [address] Care Team Providers Care Local Combination Truck Driver Name Role Phone Patricia Garza APRN Primary Care Provider [phone] Encounter Details Date Type Department Care Team (Late st Contact Info) Description 12/03/2020 Telephone [place] [address] Juan Stovall Social History Tobacco Use Types [...] * Telephone Encounter - Juan Stovall - 12/03/2020 9:49 AM EST Juan Stovall Inbound/Outbound: Outbound Spoke to Patient/Left Message: Spoke to patient Notes: Outbound call to patient to schedule motility lab testing from referral. Patient states thatshe told RMD that she does not want this procedure. Advised patient that I am closing out referral and to reach out to referring provider if things change. Return calls can be handled by: Any motility lab planner/scheduler. documented in this encounter Plan of Treatment Not on file documented as of this encounter Visit Diagnoses Not on filedocumented in this encounter Care Teams Local Combination Truck Driver Relationship Specialty Start Date End Date Patricia Garza APRN [address] [place] [address] PCP - General Internal Medicine 04/02/20 documented as of this encounter
--- OUTSIDE RECORDS SUMMARY | 2024-06-03 01:49 | XMS_ITS | Encounter Summary ---
[place] [address] Care Team Providers Care Medication Nurse Name Role Phone Patricia Garza APRN Primary Care Provider Encounter Details Date Type Department Care Team (Late st Contact Info) Description 06/27/2021 Telephone [place] [phone] Livier Chaney, RN Social History Tobacco Use [...] Telephone Encounter - Livier Chaney RN - 06/28/2021 1:34 PM EDTSummary: Stress test issue, surgery rescheduled Patient was recently seen at [facility] for a Pre-op risk stratification stress test. Per her sons recollection, she was unable to tolerate the procedure and ended up getting dizzy, weak and vomiting. She declines to try this test again. Surgery postponed and we will discuss with cardiology. Referral to cardiology at [facility] for risk stratification. documented in this encounter Plan of Treatment Not on file documented as of this encounter Visit Diagnoses Diagnosis Hiatal hernia Diaphragmatic hernia without mention of obstruction or gangrene Pre-operative cardiovascular examination, high risk surgery Pre-operative cardiovascular examination Atrial fibrillation, unspecified type Cerebrovascular accident (CVA) due to stenosis of other cerebral artery Hypertension, unspecified type Hyperlipidemia, unspecified hyperlipidemia type documented in this encounter Care Teams Medication Nurse Relationship Specialty Start Date End Date Patricia Garza, RN LPN LVN [address] [place] [address] PCP - General Internal Medicine 04/02/20 documented as of this encounter
--- OUTSIDE RECORDS SUMMARY | 2024-06-03 01:49 | XMS_ITS | Encounter Summary ---
Author Organization [facility] Address [facility] [place] [address] Care Team Providers Care Harmonic Analyst Name Role Phone Patricia Garza APRN Primary Care Provider Reason for Referral * Diagnostic Test (Routine) - Closed Specialty Diagnoses / Procedures Referred By Contac t Referred To Contact Radiology Diagnoses Hiatal hernia Procedures XR Fluoro Barium Swallow (Single Contrast) Hal Marroquin MD [facility] [place] [address] [facility] Rad Xray [address] [place] [address] [place] [address] Referral ID Status Reason Start Date Expiration Date V isits Requested Visits Authorized [id number] Closed Specialty Service Requested 03/14/2021 09/14/2022 1 1 Reason for Visit * Diagnostic Test (Routine) - Closed Specialty Diagnoses / Procedures Referred By Contac t Referred To Contact Radiology Diagnoses Hiatal hernia Procedures XR Fluoro Barium Swallow (Single Contrast) Hal Marroquin MD [facility] [place] [address] [facility] Rad Xray [address] [place] [address] [place] [address] Referral ID Status Reason Start Date Expiration Date V isits Requested Visits Authorized [id number] Closed Specialty Service Requested 03/14/2021 09/14/2022 1 1 Encounter Details Date Type Department Care Team (Latest Contact Info) Description 04/26/2021 1:18 PM EDT - 04/26/2021 11:59 PM EDT Hospital Encounter XRay at [address] [place] [address] Hal Marroquin MD [facility] [place] [address] Hiatal hernia Discharge Disposition: Home Social History [...] Sig Dispensed Refills Start Date End Date acetaminophen (Tylenol) 500 mg Tablet Take 650 [...] Associated Diagnosis Comments XR FLUORO BARIUM SWALLOW (SINGLE CONTRAST) Routine 04/26/2021 2:01 PM EDT Hiatal hernia documented in this encounter Results * XR Fluoro Barium Swallow (Single Contrast) (04/26/2021 2:01 PM EDT) Anatomical Region Laterality Modality N/A Radio Fluoroscop y Impressions 04/26/2021 4:36 PM EDT 1. ??Very large hiatal hernia, measuring approximately 22 cm. Gastroesophageal junction appears to be positioned in the posterior midline. 2. ??Patulous esophagus. Normal motility. 3. ??Moderately-sized cricopharyngeal bar. I have personally reviewed the image(s) and the resident's interpretation and agree with the findings, Law Galo MD at 04/26/2021 4:36 PM Thank you for letting us participate in the care of this patient. ??If you are a health care provider and have any questions regarding this report, please contact the number below. ??For patients who have questions please contact the health direct care supervisor that requested your imaging first. ? 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 TECHNIQUE: Single contrast esophagram was performed. Fluoroscopic spot films were obtained. Fluoro time: 2.30 minutes COMPARISON: CT chest abdomen pelvis 01/10/2020 FINDINGS: Tilt Tray Driver images demonstrate clear lungs. No effusion or pneumothorax. No acute osseous pathology. The esophagus is is well distended on double contrast views. The mucosal pattern is normal. There is a very large hiatal hernia measuring approximately 22 cm transverse dimension. The gastroesophageal junction appears to be located in the posterior midline. Normal esophageal motility. Esophagus is patulous. A 13 mm barium tablet was given to the patient, however it was quickly regurgitated as she was unable to swallow it. Given this, we opted to do rapid sequence images of the oropharynx in the AP and lateral projections. There is a cricopharyngeal bar present, best appreciated on lateral rapid sequence projections. Pooling was noted in the vallecula and piriform sinuses. Procedure Note Law Galo MD - 04/26/2021 EXAMINATION: XR FLUORO BARIUM SWALLOW (SINGLE CONTRAST) CLINICAL HISTORY: Paraesophageal hernia, need location of GE Junction aswell as the gastric outflow. TECHNIQUE: Single contrast esophagram was performed. Fluoroscopic spot films wereobtained. Fluoro time: 2.30 minutes COMPARISON: CT chest abdomen pelvis 01/10/2020 FINDINGS: Tilt Tray Driver images demonstrate clear lungs. No effusion or pneumothorax. Noacute osseous pathology. The esophagus is is well distended on double contrast views. The mucosalpattern is normal. There is a very large hiatal hernia measuring approximately 22cm transverse dimension. The gastroesophageal junction appears to be locatedin the posterior midline. Normal esophageal motility. Esophagus is patulous. A 13 mm barium tablet was given to the patient, however it was quickly regurgitated as she was unable to swallow it. Given this, we opted to dorapid sequence images of the oropharynx in the AP and lateral projections. Thereis a cricopharyngeal bar present, best appreciated on lateral rapid sequence projections. Pooling was noted in the vallecula and piriform sinuses. IMPRESSION 1. Very large hiatal hernia, measuring approximately 22 cm.Gastroesophageal junction appears to be positioned in the posterior midline. 2. Patulous esophagus. Normal motility. 3. Moderately-sized cricopharyngeal bar. I have personally reviewed the image(s) and the resident's interpretationand agree with the findings, Law Galo MD at 04/26/2021 4:36 PM Thank you for letting us participate in the care of this patient. If youare a health care provider and have any questions regarding this report,please contact the number below. For patients who have questions please contactthe health direct care supervisor that requested your imaging first. Hal Marroquin MD IMG FLUORO ORDERABLE S documented in this encounter Visit Diagnoses Diagnosis Hiatal hernia Diaphragmatic hernia without mention of obstruction or gangrene documented in this encounter Administered Medications Inactive Administered Medications - up to 3 most recent administrations Medication Order MAR Action Action Date Dose Rate Site barium sulfate (E-Z-HD) 98% oral liquid 50 mL 50 mL, Oral, ONCE, 1 dose, On Sun04/26/21 at 1430, Routine Given 04/26/2021 2:30 PM EDT 50 mLs barium sulfate (Ezpaque) 60% (w/v) oral liquid 355 mL 355 mL, Oral, ONCE, 1 dose, On Sun04/26/21 at 1400, Routine Given 04/26/2021 2:00 PM EDT 100 mLs documented in this encounter Care Teams Harmonic Analyst Relationship Specialty Start Date End Date Patricia Garza APRN [address] [place] [address] PCP - General Internal Medicine 04/02/20 documented as of this encounter
--- OUTSIDE RECORDS SUMMARY | 2024-06-03 01:49 | XMS_ITS | Encounter Summary ---
[place] [address] Care Team Providers Care Drag Car Racer Name Role Phone Patricia Garza APRN Primary Care Provider [phone] Encounter Details Date Type Department Care Team (Late st Contact Info) Description 06/08/2021 Orders Only [place] [address] Livier Chaney RN Hiatal hernia; Atrial fibrillation, unspecified type; Cerebrovascular accident (CVA) due to stenosis of other cerebral artery; Hypertension, unspecified type; Hyperlipidemia, unspecified hyperlipidemia type; Pre-operative cardiovascular examination, high risk surgery Social History Tobacco Use Types Packs/Day Years [...] hernia without mention of obstruction or gangrene Atrial fibrillation, unspecified type Cerebrovascular accident (CVA) due to stenosis of other cerebral artery Hypertension, unspecified type Hyperlipidemia, unspecified hyperlipidemia type Pre-operative cardiovascular examination, high risk surgery Pre-operative cardiovascular examination documented in this encounter Care Teams Drag Car Racer Relationship Specialty Start Date End Date Patricia Garza APRN [address] [place] [address] PCP - General Internal Medicine 04/02/20 documented as of this encounter
--- OUTSIDE RECORDS SUMMARY | 2024-06-03 01:49 | XMS_ITS | Encounter Summary ---
Author Organization Formerly [facility] Address [facility] [place] [address] Care Team Providers Care Special Ed Assistant Name Role Phone Patricia Garza APRN Primary Care Provider [phone] Reason for Visit * Reason Comments Follow-up Encounter Details Date Type Department Care Team (Late st Contact Info) Description 06/07/2021 2:00 PM EDT Office [place] [id number] Patrice Cárdenas MD [facility] [place] [address] Atrial fibrillation, unspecified type; Hiatal hernia Social [...] Sign Reading Time Taken Comments Blood Pressure 136/73 06/07/2021 1:29 PM EDT Pulse 61 06/07/2021 1:29 PM EDT Temperature 36.2 ??C (97.2 ??F) 06/07/2021 1:29 PM ED T Respiratory Rate 16 06/07/2021 1:29 PM EDT Oxygen Saturation 96% 06/07/2021 1:29 PM EDT Inhaled Oxygen Concentration - - Weight 65.6 kg (144 lb 9.6 oz) 06/07/2021 1:29 P M EDT Height 145.5 cm (4' 9.28) 06/07/2021 1:29 PM ED T Body Mass Index 30.98 06/07/2021 1:29 PM EDT documented in this encounter Patient Instructions * Patient Instructions* Livier Perdue RN - 06/07/2021 2:00 PM EDT Thank you for visiting Dr. Cárdenas in clinic 06/07/21 Dr. Cárdenas would like to schedule you for your Robot assisted Video Assisted Thoracoscopic Surgery (RVATS), Paraesophageal Hernia Repair. Please go to 3L for a blood draw before you leave today. You must be on a full liquid diet for the 2 days before surgery and clear liquids only the morning of surgery. Your procedure is tentatively scheduled for 07-01-2021 You will receive a phone call from the OR nurses on 06-30-2021 after 2pm through 6 pm. They will confirm your arrival time, review what medications to take and when to stop eating and drinking. Your procedure will occur in receptionist/telephone operator area 4W. A paraesophageal hernia is when the upper part of the stomach pushes through an opening in the diaphragm and up into the chest. In RVATS or robot-assisted video-assisted thoracic surgery, the surgeon controls the camera, light source and surgical tools from a console, with the same degree of flexibility and dexterity as if they were held in the surgeon's hand. The tiny size of the instruments and the precision movement of the robotic arms allow the surgeon to operate in small and [id number] places in the chest cavity, and to move carefully around sensitive blood vessels, tissues and organs, enabling more difficult procedures to be performed with RVATS versus open surgery. Paraesophageal Hernia Surgery Recovery What to Expect Before surgery PLEASE WASH WITH EITHER DIAL SOAP or the HIBICLENS SOAP included in this package. Please wash your chest, sides and back. You may shower either the night before or the morning of surgery and please place clean clothes on after your shower. ?? Exercise: Daily aerobic exercise for at least 30 minutes will help improve your endurance and improve the breathing capacity of your lungs. This means that you are breathing hard, your heart is beating fast and that you are sweating. Examples of this include walking, biking, swimming, and using a treadmill or stationary bike. You will be expected to exercise after surgery as well. Incentive Spirometer: Place the Incentive spirometer in your mouth when you are ready to take a slow deep breath in through your mouth (sucking motion, DO NOT BLOW into the device). Use your incentive spirometer as you were shown in clinic: 6 times daily/10 breaths each time. It is a sucking motion when you take a slow deep breath in, DO NOT BLOW INTO THIS MACHINE You may also bundle the use of the incentive spirometer as well - 30 breaths in the morning and 30 breaths at night. Please keep your incentive spirometer near your favorite chair so that in between commercials you can remember to use it! Take a slow, deep breath in through your mouth. While the piston rises, the indicator on the right should move upwards. It should stay between the 2 arrows for 2 to 4 seconds with each breath. If theindicator does not stay between the arrows, you are breathing either too fast or too slowly. The incentive spirometer will help you expand your lungs and encourage you to breathe deeply and fully. You will use the incentive spirometer as part of your recovery process and to prevent complications such as pneumonia. After Surgery Expect stay in the hospital one to two days after this procedure. On the morning after your procedure you will get a swallowing study to make sure everything is in the proper place. After that, you will start on a liquid diet. A Chest tube is a flexible tube that is used to drain blood, fluid and air from around your lungs after surgery. The tube enters your body between your ribs and goes into the space between the inner lining and outer lining of your lung. This is called the pleural space. The chest tube will come outa day after surgery, if there is no air leak in your lung. If there is an air leak, the chest tube will stay in until it stops. The nurse and doctor will be watching for the air leak to clear up regularly throughout the day. Diet This surgical procedure does require diet restrictions after surgery. You will need to stay on a liquid/soft diet for approximately 3 weeks after surgery. During that time, you can try or experiment with eating soft, mushy foods like tuna, mashed potatoes, eggs, cottage cheese, and thick soups. Thereason for liquids is that there will be some swelling in your esophagus where your hernia was repaired. You may also notice that swallowing feels a little tight - this will improves as the swelling goes down. With time, you will be able to digest foods normally. ALSO, DO NOT DRINK CARBONATED BEVERAGES FOR THREE WEEKS. Some patients find that their appetite is poor or that foods don't taste well after surgery. This is a normal result of the stress of surgery and manipulation inside the belly -- your appetite shouldreturn in several weeks. If you do not eat, this is OK; the most important thing is to drink liquids. If you find you are persistently nauseated or unable to take in liquids, contact our office and let us know. You should expect a stay in the hospital for one to two days. You will have a barium swallow study performed prior to going home. At home you will be following a liquid diet that may look like this schedule: a full liquid diet for one week and then advance to a puree diet for one week and then advance to a soft solid diet for one week. POST SURGERY AT HOME INSTRUCTIONS: Example of what you will be taking for pain control after your surgery. Please make sure that you have Tylenol (acetaminophen) and Motrin (ibuprofen) at home before you are discharged : [id number] mg alternate with ibuprofen 200 mg (2-3 tabs) every 3 hours : ex. Schedule - Tylenol 1000 mg at 8am, Ibuprofen 200 mg (2-3 tabs) at 11 am, then tylenol 1000 mg at 2 pm, then ibuprofen 200 mg (2-3 tabs) at 5 pm. Do not exceed more than 4000 mg of tylenol in 24 hour period. Post Surgery Instructions at home: Bowel regimen while at home. Please obtain senna (Senokot) tablets, colace tablets, and Miralax powder. You will need to take senna once a day, colace three times a day and miralax once a day to keepyour bowels moving. If you do not have a bowel movement in 2 days you will need to call the office as you will need to obtain either Milk of Magnesia (MOM), Magnesium citrate, a Fleet's enema or glycerin suppositories. If you are having diarrhea, then you may back off on the bowel medications. If you are taking narcotics, you need to continue the bowel medications while you are taking the narcotics. Dr. Cárdenas's team will see you twice per day while you are in the hospital. Two weeks after you leave the hospital, you will be scheduled to see Dr. Cárdenas in his clinic and will also have a chest x-ray before you see him on this day. Please call the Thoracic Surgery nurse if you have any questionsbefore or after your surgery at . documented in this encounter Progress Notes * Patrice Cárdenas MD - 06/07/2021 2:00 PM EDT Thoracic Surgery Attending Outpatient Follow Up Note Patrice Cárdenas MD [place] [address] FAX: Pre Op Dx: Large paraesophageal hernia ?? Treatment: Probable surgery ?? HPI: The patient comes back to discuss her most recent studies and discuss surgery. She has stoppedvomiting after dinner since she is reducing how much she eats at one time. She does fill like things still get stuck and she chases it with water with good results. She does not do much exercise and not much activity. No other changes. She has no new f/c/n/v/SOB/CP. Medications: Current Outpatient Medications on File Prior to Visit Medication Sig Dispense Refill ??? acetaminophen (Tylenol) 500 mg Tablet Take [...] Release(E.C.) Take 40 mg by mouth daily. No current facility-administered medications on file prior to visit. Physical Exam: BP 136/73 (Patient Position: Sitting) Pulse 61 Temp 36.2 ??C (97.2 ??F) (Temporal) Resp 16 Ht 145.5 cm (4' 9.28) Wt 65.6 kg (144 lb 9.6 oz) SpO2 96% BMI 30.98 kg/m?? General Appearance: Alert, cooperative, no distress, appears stated age, uses a walker Nk: Supple, symmetrical, trachea midline, no adenopathy Lungs: Clear to auscultation bilaterally, respirations unlabored, no wheezes, crackles or ronchi. Heart: Regular rate and rhythm, S1 and S2 normal, no murmur, rub, or gallop Abdomen: Soft, non-tender, bowel sounds active all four quadrants, no masses, no organomegaly Extremities: Extremities normal, atraumatic, no cyanosis or edema Imaging: I have independently visualized the following studies: Manometry (05/23/21): - Upper Esophageal Sphincter:??normal mean residual pressure and relaxation duration - Body:?? 20% of swallows failed. 0% of swallows had premature contractions with shortened distal latency time.? The remaining 80% of swallows were peristaltic, includin% of swallows with hypercontractility, 0% of swallows with weak peristalsis,??and 0% of swallows with large breaks (>5 cm) in the 20mmHg isocontour line. - Esophagogastric Junction:??Midpoint located n/a??cm from the nares, and proximal extent located at n/a??cm. ?? The catheter tip did not pass through the diaphragm so accurate assessment of the LES could not be completed. There is evidence of preserved esophageal peristalsis ruling out achalasia. If assessment of the LES function is needed please contact us regarding potentially arranging an endoscopically placed catheter. Personal communication with Dr. Henao - The UES was normal with no signs of hypertonic muscle or stricture. XR Fluoro Barium Swallow (04/26/2021): 1. ??Very large hiatal hernia, measuring approximately 22 cm. Gastroesophageal junction appears to be positioned in the posterior midline. 2. ??Patulous esophagus. Normal motility. 3. ??Moderately-sized cricopharyngeal bar. ?? Assessment: Linda Fuller is a 81 y.o. 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 Her manometry was essentially normal with no evidence of issues with UES. She appears to be a candidate for surgery. Plan: 1. We had a long discussion about the risks and benefits of surgery. All her questions were answered. She wishes to proceed with surgery 2. 30 minutes of exercise daily at a minimum - she will need to increase her exercise level. Sit tostand exercises, up with commercials, walking around more. She must increase her activity level. 3. Stress test -- she had one at [facility] within the last 2-3 years and we will get those results. 4. Plan for robotic repair of giant paraesophageal hernia without fundoplication. Consent signed today. Plan surgery for 07/01/21 5. Call with any questions PATRICE CÁRDENAS MD documented in this encounter Miscellaneous Notes * Addendum Note - Liz Gaitan - 06/07/2021 2:00 PM EDTAddended by: LIZ GAITAN on: 06/07/2021 02:28 PM Modules accepted: Orders * Addendum Note - Livier Perdue RN - 06/07/2021 2:00 PM EDTAddended by: LIVIER PERDUE on: 07/22/2021 03:16 PM Modules accepted: Orders, SmartSet documented in this encounter Plan of Treatment Not on file documented as of this encounter Procedures Procedure Name Priority Date/Time Associated Diagnosis Comments HEMOGRAM Routine 06/07/2021 2:42 PM EDT Atrial fibrillation, unspecified type Hiatal hernia DIFFERENTIAL, AUTOMATED Routine 06/07/2021 2:42 PM EDT Atrial fibrillation, unspecified type Hiatal hernia HC VENIPUNCTURE Routine 06/07/2021 2:42 PM EDT Atrial fibrillation, unspecified type Hiatal hernia COMPREHENSIVE METABOLIC PANEL STAT 06/07/2021 2:42 PM EDT Atrial fibrillation, unspecified type Hiatal hernia documented in this encounter Results * (ABNORMAL) Comprehensive metabolic panel (non-fasting) (08/05/2021 9:50 AM EDT) Glucose 96 65 - 199 mg/dL [facility] Comment:Diabetes: >=200 mg/d L plus symptoms Blood Urea Nitrogen 21(H) 8 - 18 mg/dL [facility] Creatinine 1.05 0.70 - 1.20 mg/dL [facility] Sodium 139 135 - 145 mmol/L [facility] Potassium 3.7 3.5 - 5.0 mmol/L [facility] Comment: Please note: ??Patients with WBC >100,000 may have falsely elevated Potassium levels. ??For accurate Potassium quantification in these patients send serum separator tube (gold top) for subsequent determinations. ??Contact the Clinical Chemistry Laboratory if there are any questions. Chloride 104 98 - 107 mmol/L [facility] Carbon Dioxide 28 22 - 31 mmol/L [facility] Anion Gap 7 5 - 15 mmol/L [facility] Calcium 8.8 8.5 - 10.5 mg/dL [facility] Protein, Total 6.4 6.1 - 8.0 g/dL [facility] Albumin 4.0 3.2 - 5.2 g/dL [facility] Aspartate Aminotransferase 9 0 - 30 unit/L [facility] Alanine Aminotransferase 9 0 - 30 unit/L [facility] Alkaline Phosphatase 65 35 - 105 unit/L [facility] Bilirubin, Total 0.2 0.2 - 1.3 mg/dL [facility] Est Glomerular Filtration Rate 49(L) >=60 mL/min/1. 73 m?? [facility] Comment: This patient? s estimated [...] Cárdenas MD CHEMISTRY ORDERABLES Performing Organization Address City/State/[facility] Co de Phone Number [facility] [place] [address] * (ABNORMAL) Differential, Automated (06/07/2021 2:42 PM EDT) Neutrophil % 67.5 % [facility] Neutrophil Absolute 5.30 1.70 - 6.10 x10(3)/mc L [facility] Lymph % 20.2 % [facility] Lymphocytes Abs 1.6 0.9 - 3.2 x10(3)/mc L [facility] Monocyte % 8.4 % [facility] Monocyte Abs 0.7 0.3 - 0.9 x10(3)/[facility] Eos % 2.3 % [facility] Eosinophils Abs 0.2 0.0 - 0.4 x10(3)/[facility] Basophil % 0.8 % [facility] Baso Absolute 0.1 0.0 - 0.1 x10(3)/[facility] Immature Gran % 0.80 % [facility] Comment: Immature granulocytes(IG's)percentage and absolute count will include metamyelocytes, myelocytes, and promyelocytes. Blood smears from CBCs yielding IG's will be scanned manually for concordance. If this scan disagrees with the automated IG or if promyelocytes are noted, a manual differential will be performed. Immature Gran Absolute 0.06(H) 0.00 - 0.04 x10(3)/[facility] Blood 06/07/2021 2:42 PM EDT 06/07/2021 2:47 PM EDT Narrative Resulting Agency Comment Spec In Lab Patrice Cárdenas MD HEMATOLOGY ORDERABLE S [facility] [place] [address] * Hemogram (06/07/2021 2:42 PM EDT) White Blood Cell 7.8 4.0 - 9.5 x10(3)/[facility] Red Blood Cell 4.71 4.00 - 5.21 x10(6)/[facility] Hemoglobin 14.5 11.7 - 15.5 gm/dL [facility] Hematocrit 42.6 35.7 - 45.8 % [facility] Mean Cell Volume 90.4 82.6 - 94.4 fL [facility] Mean Cell Hemoglobin 30.8 27.1 - 32.0 pg [facility] Mean Cell Hemoglobin Concentration 34.0 31.7 - 35.0 gm/dL [facility] Platelet 318 145 - 357 x10(3)/[facility] RDW Standard Deviation 43.6 37.0 - 46.0 fL [facility] RDW coefficient of variation 13.2 11.5 - 14.1 % [facility] Mean Platelet Volume 9.4 7.6 - 12.9 fL [facility] NRBC% auto 0.0 % [facility] NRBC Absolute 0.000 0.000 - 0.000 x10(3)/[facility] Blood 06/07/2021 2:42 PM EDT 06/07/2021 2:47 PM EDT Narrative Resulting Agency Comment Spec In Lab Patrice Cárdenas MD HEMATOLOGY ORDERABLE S [facility] [place] [address] * (ABNORMAL) Comprehensive metabolic panel (non-fasting) (06/07/2021 2:42 PM EDT) Glucose 94 65 - 199 mg/dL [facility] Comment:Diabetes: >=200 mg/d L plus symptoms Blood Urea Nitrogen 28(H) 8 - 18 mg/dL [facility] Creatinine 1.35(H) 0.70 - 1.20 mg/dL [facility] Sodium 140 135 - 145 mmol/L [facility] Potassium 4.2 3.5 - 5.0 mmol/L [facility] Comment: Please note: ??Patients with WBC >100,000 may have falsely elevated Potassium levels. ??For accurate Potassium quantification in these patients send serum separator tube (gold top) for subsequent determinations. ??Contact the Clinical Chemistry Laboratory if there are any questions. Chloride 104 98 - 107 mmol/L [facility] Carbon Dioxide 25 22 - 31 mmol/L [facility] Anion Gap 11 5 - 15 mmol/L [facility] Calcium 9.0 8.5 - 10.5 mg/dL [facility] Protein, Total 6.8 6.1 - 8.0 gm/dL [facility] Albumin 4.3 3.2 - 5.2 gm/dL [facility] Aspartate Aminotransferase Not Perf 0 - 30 [facility] Comment:Unable to quantitate due to sample hemolysis. Sample redraw suggested. Alanine Aminotransferase 12 0 - 30 unit/L [facility] Alkaline Phosphatase 67 35 - 105 unit/L [facility] Bilirubin, Total 0.3 0.2 - 1.3 mg/dL [facility] Est Glomerular Filtration Rate 36(L) >=60 mL/min/1. 73 m?? [facility] Comment: This patient? s estimated glomerular filtration rate (eGFR) is between 36 mL/min/1.73 m2 (patients with less muscle mass) and 42 mL/min/1.73 m2 (patients with more muscle mass) [...] and symptoms in addition to eGFR. Blood 06/07/2021 2:42 PM EDT 06/07/2021 2:47 PM EDT Narrative Resulting Agency Comment Spec In Lab Patrice Cárdenas MD CHEMISTRY ORDERABLES [facility] [place] [address] documented in this encounter Visit Diagnoses Diagnosis Atrial fibrillation, unspecified type Hiatal hernia Diaphragmatic hernia without mention of obstruction or gangrene documented in this encounter Care Teams Special Ed Assistant Relationship Specialty Start Date End Date Patricia Garza APRN [address] [place] [address] PCP - General Internal Medicine 04/02/20 documented as of this encounter
--- OUTSIDE RECORDS SUMMARY | 2024-06-03 01:49 | XMS_ITS | Encounter Summary ---
[place] [address] Care Team Providers Care Inspector Bicycle Name Role Phone Patricia Garza APRN Primary Care Provider [phone] Encounter Details Date Type Department Care Team (Late st Contact Info) Description 07/13/2021 Telephone [place] [phone] Livier Chaney, RN Social History Tobacco Use [...] Telephone Encounter - Livier Chaney, RN - 07/13/2021 10:50 AM EDT Phone call to son Vitaliy to see if Linda has been scheduled to see cardiology yet. Left message forhim to return my call. Left message at [facility] Cardiology as well [phone]. documented in this encounter Plan of Treatment Not on file documented as of this encounter Visit Diagnoses Not on filedocumented in this encounter Care Teams Inspector Bicycle Relationship Specialty Start Date End Date Patricia Garza APRN [address] [place] [address] PCP - General Internal Medicine 04/02/20 documented as of this encounter
--- OUTSIDE RECORDS SUMMARY | 2024-06-03 01:49 | XMS_ITS | Encounter Summary ---
Author Organization [facility] [place] [address] Care Team Providers Care Culinary Assistant Name Role Phone Patricia Garza APRN Primary Care Provider [phone] Reason for Visit * Consultation (Urgent) - Closed Specialty Diagnoses / Procedures Referred By Contac t Referred To Contact Gastroenterology Diagnoses Hiatal hernia HREM - HH Procedures HIGH RESOLUTION ESOPHAGEAL MANOMETRY HREM - HH Hal Marroquin MD [facility] [place] [address] [facility] [address] [place] [address] Referral ID Status Reason Start Date Expiration Date V isits Requested Visits Authorized [id number] Closed Test Only 04/26/2021 04/26/2022 1 1 Encounter Details Date Type Department Care Team (Late st Contact Info) Description 05/23/2021 11:00 AM EDT Procedure [place] [address] Hiatal hernia Social History Tobacco Use Types [...] as of this encounter Progress Notes * Luis E Mendez LPN - 05/23/2021 11:00 AM EDT A description of the esophageal manometry procedure was provided to the patient. All questions wereanswered and the patient verbalized understanding. The HREM catheter was placed via the left naris without difficulty. The esophageal manometry procedure was performed and the catheter was removed. The patient tolerated the procedure well. * Houston Henao MD - 05/23/2021 11:00 AM EDT Images from the original note were not included. HIGH-RESOLUTION ESOPHAGEAL MANOMETRY PROCEDURE NOTE Patient: Linda Fuller Address: [place] [address] : 1940 Date of service: 05/23/2021 Indication: Heartburn Procedure: The patient arrived after an overnight fast. After verbal consent, a Margareth motility catheter with 36 circumferential sensors on 1 cm spacing with impedance sensors was inserted transnasally after application of topical anesthesia to the nasal passage. The catheter was positioned so that at least 2distal sensors were in the stomach and 2 proximal sensors were located above the UES. A 3-5 minute a cclimation period was provided followed by 10 wet swallows of 5 cc of water while supine. Normal values while supine: Upper esophageal sphincter residual pressure: < 12 mmHg Upper esophageal sphincter relaxation duration: > 480 msec Distal contractile integral (DCI): > 450 and < 8,000 mmHg x cm x s Distal latency time: > 4.5 sec Integrated EGJ relaxation pressure (IRP): < 15 mmHg Normal EGJ resting pressure (respiratory mean): 15-34 mmHg Findings: - Upper Esophageal Sphincter: normal mean residual pressure and relaxation duration - Body: 20% of swallows failed. 0% of swallows had premature contractions with shortened distal latency time. The remaining 80% of swallows were peristaltic, includin% of swallows with hypercontractility, 0% of swallows with weak peristalsis, and 0% of swallows with large breaks (>5 cm) in the 20mmHg isocontour line. - Esophagogastric Junction: Midpoint located n/a cm from the nares, and proximal extent located at n/a cm. [employer] swallow: Impressions based on [place] Classification v4.0: The catheter tip did not pass through the diaphragm so accurate assessment of the LES could not be completed. There is evidence of preserved esophageal peristalsis ruling out achalasia. If assessment of the LES function is needed please contact us regarding potentially arranging an endoscopically placed catheter. *These findings assume that mechanical obstruction has been ruled out. Houston Henao MD, FRCPC Section of Gastroenterology and Hepatology [facility] [place] [address] V: [phone] F: [phone] CC/EC: Patricia Garza APRN [address] [place] [address] documented in this encounter Plan of Treatment Scheduled Referrals Name Type Priority Associated Diagnoses Orde r Schedule REFERRAL TO ENDOSCOPY PROCEDURE Outpatient Referral Routine Hiatal hernia Ordered: 04/26/2021 documented as of this encounter Visit Diagnoses Diagnosis Hiatal hernia Diaphragmatic hernia without mention of obstruction or gangrene documented in this encounter Care Teams Culinary Assistant Relationship Specialty Start Date End Date Patricia Garza APRN [address] [place] [address] PCP - General Internal Medicine 04/02/20 documented as of this encounter
--- OUTSIDE RECORDS SUMMARY | 2024-06-03 01:49 | XMS_ITS | Encounter Summary ---
Author Organization [facility] [address] [id number] Care Team Providers Care Medication Care Manager Name Role Phone Patricia Garza APRN Primary Care Provider Reason for Referral * Consultation (Routine) - Duplicate Referral Specialty Diagnoses / Procedures Referred By Contac t Referred To Contact Gastroenterology Diagnoses Hiatal hernia Hal Marroquin MD [facility] [place] [address] [facility] [address] [place] [address] Referral ID Status Reason Start Date Expiration Date Visits Requested Visits Authorized [id number] Duplicate Referral Test Only 03/14/2021 03/14/2022 1 1 * Diagnostic Test (Routine) - Closed Specialty Diagnoses / Procedures Referred By Contac t Referred To Contact Radiology Diagnoses Hiatal hernia Procedures XR Fluoro Barium Swallow (Single Contrast) Hal Marroquin MD [facility] [place] [address] [facility] Rad Xray [address] [place] [address] [place] [address] Referral ID Status Reason Start Date Expiration Date V isits Requested Visits Authorized [id number] Closed Specialty Service Requested 03/14/2021 09/14/2022 1 1 * Rehabilitation (Routine) - Closed Specialty Diagnoses / Procedures Referred By Amanuel t Referred To Contact Pulmonology Diagnoses Hiatal hernia Hal Marroquin MD [facility] [place] [address] [facility] [place] [address] Referral ID Status Reason Start Date Expiration Date V isits Requested Visits Authorized [id number] Closed Evaluate and Treat 03/14/2021 03/14/2022 36 36 Encounter Details Date Type Department Care Team (Late st Contact Info) Description 03/14/2021 Orders [place] [address] Livier Chaney RN Hiatal hernia Social History Tobacco Use Types [...] Type Priority Associated Diagnoses Orde r Schedule Referral to Pulmonary Rehab Outpatient Referral Routine Hiatal hernia Ordered: 03/14/2021 REFERRAL TO ENDOSCOPY PROCEDURE Outpatient Referral Routine Hiatal hernia Ordered: 03/14/2021 documented as of this encounter Results * XR Fluoro Barium [...] who have questions please contact the health career development coordinator/teacher that requested your imaging first. ? 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 TECHNIQUE: Single contrast esophagram was performed. Fluoroscopic spot films were obtained. Fluoro time: 2.30 minutes COMPARISON: CT chest abdomen pelvis 01/10/2020 FINDINGS: Sandblaster Glass images demonstrate clear lungs. No effusion or [...] sinuses. Procedure Note Law Galo MD - 06/29/2021 EXAMINATION: XR FLUORO BARIUM SWALLOW (SINGLE CONTRAST) CLINICAL HISTORY: Paraesophageal hernia, need location of GE Junction aswell as the gastric outflow. TECHNIQUE: Single contrast esophagram was performed. Fluoroscopic spot films wereobtained. Fluoro time: 2.30 minutes COMPARISON: CT chest abdomen pelvis 01/10/2020 FINDINGS: Sandblaster Glass images demonstrate clear lungs. No effusion or [...] patients who have questions please contactthe health career development coordinator/teacher that requested your imaging first. Hal Marroquin MD IMG FLUORO ORDERABLE S documented in this encounter Visit Diagnoses Diagnosis Hiatal hernia Diaphragmatic hernia without mention of obstruction or gangrene Hiatal hernia Diaphragmatic hernia without mention of obstruction or gangrene documented in this encounter Care Teams Medication Care Manager Relationship Specialty Start Date End Date Patricia Garza APRN [address] [place] [address] PCP - General Internal Medicine 04/02/20 documented as of this encounter
--- OUTSIDE RECORDS SUMMARY | 2024-06-03 01:49 | XMS_ITS | Encounter Summary ---
Author Organization [facility] [place] [address] Care Team Providers Care Acquisitions Logistics Analyst Name Role Phone Patricia Garza APRN Primary Care Provider [phone] Reason for Referral * Consultation (Urgent) - Closed Specialty Diagnoses / Procedures Referred By Contac t Referred To Contact Cardiology Diagnoses Pre-operative cardiovascular examination, high risk surgery Atrial fibrillation, unspecified type Cerebrovascular accident (CVA) due to stenosis of other cerebral artery Hiatal hernia Hypertension, unspecified type Hyperlipidemia, unspecified hyperlipidemia type Hal Marroquin MD [facility] [place] [address] Referral ID Status Reason Start Date Expiration Date V isits Requested Visits Authorized [id number] Closed Consult, Test & Treat 07/01/2021 12/28/2021 1 1 Encounter Details Date Type Department Care Team (Late st Contact Info) Description 07/01/2021 Orders [place] [address] Livier Chaney RN Pre-operative cardiovascular examination, high risk surgery; Atrial fibrillation, unspecified type; Cerebrovascular accident (CVA) due to stenosis of other cerebral artery; Hiatal hernia; Hypertension, unspecified type; Hyperlipidemia, unspecified hyperlipidemia type Social History Tobacco Use Types Packs/Day Years [...] Associated Diagnoses Orde r Schedule Referral to Cardiology Outpatient Referral Routine Pre-operative cardiovascular examination, high risk surgery Atrial fibrillation, unspecified type Cerebrovascular accident (CVA) due to stenosis of other cerebral artery Hiatal hernia Hypertension, unspecified type Hyperlipidemia, unspecified hyperlipidemia type Ordered: 07/01/2021 documented as of this encounter Visit Diagnoses Diagnosis Pre-operative cardiovascular examination, high risk surgery Pre-operative cardiovascular examination Atrial fibrillation, unspecified type Cerebrovascular accident (CVA) due to stenosis of other cerebral artery Hiatal hernia Diaphragmatic hernia without mention of obstruction or gangrene Hypertension, unspecified type Hyperlipidemia, unspecified hyperlipidemia type documented in this encounter Care Teams Acquisitions Logistics Analyst Relationship Specialty Start Date End Date Patricia Garza, BIOFUELS MANAGER [address] [place] [address] PCP - General Internal Medicine 04/02/20 documented as of this encounter
--- OUTSIDE RECORDS SUMMARY | 2024-06-03 01:49 | XMS_ITS | Encounter Summary ---
Author Organization [facility] [place] [address] Care Team Providers Care Cinder Block Mason Name Role Phone Patricia Garza APRN Primary Care Provider [phone] Encounter Details Date Type Department Care Team (Latest Contact Info) Description 09/04/2020 8:34 PM EST - 09/04/2020 11:59 PM EST Hospital [place] [id number] Discharge Disposition: Home Social History Tobacco Use [...] Procedure Name Priority Date/Time Associated Diagnosis Comments COVID-19 PCR Routine 09/04/2020 8:50 AM EST documented in this encounter Results * (ABNORMAL) COVID-19 PCR (09/04/2020 8:50 AM EST) SARS-CoV-2 RNA Detected (A) Not Detected [facility] Comment: This result should be interpreted in combination with the clinical observations, patient history and epidemiological information in making a final diagnosis. For testing of asymptomatic individuals, assay performance characteristics and clinical utility have not been evaluated. Testing for SARS-CoV-2 (Severe acute respiratory syndrome coronavirus 2, formerly known as 2019 novel coronavirus or 2019-nCoV) to aid in the diagnosis of COVID-19 is performed using the [employer] RealTime SARS-CoV-2 Assay as authorized by the FDA Emergency Use Authorization (EUA). This EUA assay is intended for In-vitro Diagnostic (IVD) use with respiratory specimens such as nasopharyngeal swabs collected from individuals during the acute phase of infection. This assay is performed based on the instructions for use provided by [employer] and additional guidance provided by CDC and FDA. Testing is performed in the [facility] within the Department of Pathology and Laboratory Medicine at [facility], certified under the Clinical Laboratory Improvement Amendments of 1988 (CLIA), 42 U.S.C. 263a, to perform high complexity tests. Assay performance has been verified according to clinical laboratory regulatory requirements for use with specimens collected from individuals suspected of COVID-19. Test results are provided above. A result of ? Not Detected? indicates that the viral RNA target is not present above the limit of detection, but does not preclude SARS-CoV-2 infection. False negative results may occur if a specimen is improperly collected, transported or handled; if amplification inhibitors are present; or if inadequate numbers of viral particles are present in the specimen. When a diagnostic test is negative, the possibility of a false negative result should be considered in the context of a patient? s recent exposures and the presence of clinical signs and symptoms consistent with COVID-19. A result of ? Detected? indicates that RNA from SARS-CoV-2 was detected and the patient is infected. As required or requested by public health authorities, positive specimens may be sent for additional testing. Positive and negative predictive values for this test are highly dependent on disease prevalence. A result of ? Invalid? indicates that neither the viral RNA targets nor the internal control target was detected. An invalid result suggests the presence of inhibitors. Recollection and re-testing is recommended in the case of an invalid result. CDC COVID-19 criteria for testing on human specimens and clinical management guidance information are available at the CDC Coronavirus Disease 2019 (COVID-19) webpage under ? Information for Healthcare Professionals? (https://www.cdc.gov/coronavirus/2019-ncov/hcp/index.html) Additional information about this and other EUA tests can be found in provider and patient fact sheets at the following FDA website: https://www.fda.gov/medical-devices/cazjbatrhmz-ygwwrzh-1655-bhnun-49-qqfeihuvi- use-a bpzuztoscszfj-polxnwy-nysgwfw/xjllj-nsudxarrfqv-ddco SARS-CoV-2 RNA Source RADIO ASSEMBLER Swab [facility] Nasopharyngeal swab (specimen) Other / Unknown 09/04/2020 8:50 AM EST 09/04/2020 9:51 PM EST Narrative Resulting Agency Comment Spec In Lab Niraj Teague DO MOLECULAR ORDERABLES [facility] [place] [address] documented in this encounter Visit Diagnoses Not on filedocumented in this encounter Care Teams Cinder Block Mason Relationship Specialty Start Date End Date Patricia Garza APRN [address] [place] [address] PCP - General Internal Medicine 04/02/20 documented as of this encounter
--- OUTSIDE RECORDS SUMMARY | 2024-06-03 01:49 | XMS_ITS | Encounter Summary ---
Author Organization [facility] Address [facility] [place] [id number] Care Team Providers Care Automotive Drivability Technician Name Role Phone Patricia Garza APRN Primary Care Provider Reason for Referral * Consultation (Routine) - Closed Specialty Diagnoses / Procedures Referred By Contac t Referred To Contact Gastroenterology Diagnoses Hiatal hernia HREM Hiatal hernia Procedures HREM Patrice Cárdenas MD [facility] [place] [address] [facility] [address] [address] [place] [address] Referral ID Status Reason Start Date Expiration Date V isits Requested Visits Authorized [id number] Closed Consult, Test & Treat 04/15/2020 04/15/2021 1 1 * Rehabilitation (Routine) - Specialty Diagnoses / Procedures Referred By Contac t Referred To Contact Pulmonology Diagnoses Hiatal hernia Patrice Cárdenas MD [facility] [place] [address] [facility] [place] [address] Referral ID Status Reason Start Date Expiration Date V isits Requested Visits Authorized [id number] Evaluate and Treat 04/15/2020 04/15/2021 36 36 Reason for Visit * Reason Comments Hiatal Hernia * Consultation (Routine) - Closed Specialty Diagnoses / Procedures Referred By Contac t Referred To Contact Thoracic Surgery Diagnoses Hiatal hernia Large hiatal hernia, causing significant shortness of breath as well as acid reflux. ? of surgical candidate Smitha Concepcion MD [address] [place] [id number] Patrice Cárdenas MD [facility] DR TH[place]ACIC [place] [address] Referral ID Status Reason Start Date Expiration Date V isits Requested Visits Authorized [id number] Closed Consult, Test & Treat 04/02/2020 04/02/2021 1 1 Encounter Details Date Type Department Care Team (Late st Contact Info) Description 04/13/2020 2:00 PM EDT Office Visit [place] [address] Patrice Cárdenas MD [facility] DR TH[place]AC[place] [address] Hiatal hernia Social History Tobacco Use Types [...] Sign Reading Time Taken Comments Blood Pressure - - Pulse 61 04/13/2020 2:01 PM EDT Temperature 36.5 ??C (97.7 ??F) 04/13/2020 2:01 PM ED T Respiratory Rate 18 04/13/2020 2:01 PM EDT Oxygen Saturation 98% 04/13/2020 2:01 PM EDT Inhaled Oxygen Concentration - - Weight 68.5 kg (151 lb) 04/13/2020 2:01 PM EDT Height 146.5 cm (4' 9.68) 04/13/2020 2:01 PM ED T Body Mass Index 31.91 04/13/2020 2:01 PM EDT documented in this encounter Patient Instructions * Patient Instructions* Liliane Blakely RN - 04/13/2020 2:00 PM EDT Thank you for visiting Dr. Cárdenas in clinic 04/15/20 Dr. Cárdenas would like to see you back in clinic in Barium Swallow, Manometry, Pulmonary Rehab, Referral to GI. A barium swallow is a test that may be used to determine the cause of painful swallowing, difficulty with swallowing, abdominal pain, bloodstained vomit, or unexplained weight loss. Barium sulfate adryan metallic compound that shows up on X-rays and is used to help see abnormalities in the esophagus and stomach. High-resolution manometry (HRM) of the esophagus is a new technique that provides a more precise assessment of esophageal motility than conventional techniques. Esophageal manometry (duf-SAI-zu-tree) is a test that shows whether your esophagus is working properly. The esophagus is a long, muscular tube that connects your throat to your stomach. Esophageal manometry measures the rhythmic muscle contractions that occur in your esophagus when you swallow. The test also measures the force and coordination of esophageal muscles as they move foodto your stomach. During esophageal manometry, a thin, flexible tube (catheter) that contains pressure sensors is passed through your nose, down your esophagus and into your stomach. Esophageal manometry can be helpful in diagnosing certain disorders that may affect your esophagus You will receive a call to schedule this appointment. [...] questions or concerns. documented in this encounter H&P Notes * Patrice Cárdenas MD - 04/13/2020 2:00 PM EDT Thoracic Surgery Attending Outpatient Consultation Note MD Traci Ortiz PA-C [place] [address] FAX: Date of Consultation: 04/13/2020 This consultation has been requested by PCP: Patricia Garza APRN Referring Physician: Smitha Concepcion MD Purpose for Consultation: large paraesophageal hernia HPI: Linda Fuller is a 80 y.o. female with large paraesophageal hernia who presents, with her son in law, to discuss surgical repair. Her PMHx is significant for HTN, HLD, COPD, newly diagnosised afib (on eliquis) and recent CVA in February and depression. She reports that she has had reflux for ~ 5 years with associated emesis and weight loss. She was set to undergo surgical repair ~ 4 years ago in [place] but one week prior had a CVA and was diagnosed with a fib. She did not pursue surgery after this because she was too old. However, ~ 1.5 years ago she noted she was having significant dyspnea and LEWIS that continues to progress prompting her to reconsider surgery. She reports continued reflux, dysphagia to meats, post prandial emesis that is not associated with nausea or pain. She also noted cough at night and sometimes after she eat. She denies f/c/abdominal pain/odynyphagia/constipation. She reports she in unable to do most thing 2/2 dyspnea at this point but 2 years prior she was ableto walk and carry her own groceries. She is a former smoker with an ~ 15 PY history. She denies ETOH and illicit drug use. Past Medical History: Patient Active Problem List Diagnosis Date Noted ??? Hypertension ??? Hyperlipemia ??? Depression ??? CVA (cerebral vascular accident) ??? Atrial fibrillation Past Medical History: Diagnosis Date ??? Atrial fibrillation on eliquis ??? CVA (cerebral vascular accident) ??? Depression ??? Hyperlipemia ??? Hypertension Past Surgical History: Past Surgical History: Procedure Laterality Date ??? CHOLECYSTECTOMY ??? JOINT REPLACEMENT Right ??? JOINT REPLACEMENT Left Medications: Outpatient Medications Marked as Taking for the 04/13/20 encounter (Office Visit) with Rene Cárdenas MD Medication Sig Dispense Refill ??? acetaminophen (Tylenol) [...] Release(E.C.) Take 40 mg by mouth daily. Allergies: Allergies Allergen Reactions ??? Pcn [Penicillins] [...] file Occupational History ??? Not on file Social Needs ??? Financial resource strain: Not on file ??? Food insecurity Worry: Not on file Inability: Not on file ??? Transportation needs Medical: Not on file Non-medical: Not on file Tobacco Use ??? Smoking status: Former Smoker Packs/day: 1.00 Years: 15.00 Pack years: 15.00 Types: Cigarettes ??? Smokeless tobacco: Never Used ??? Tobacco comment: quit 40 yrs ago Substance and Sexual Activity ??? Alcohol use: Not Currently ??? Drug use: Never ??? Sexual activity: Not on file Lifestyle ??? Physical activity Days per week: Not on file Minutes per session: Not on file ??? Stress: Not on file Relationships ??? Social connections Talks on phone: Not on file Gets together: Not on file Attends amish service: Not on file Active member of club or organization: Not on file Attends meetings of clubs or organizations: Not on file Relationship status: Not on file ??? Intimate partner violence Fear of current or ex partner: Not on file Emotionally abused: Not on file Physically abused: Not on file Forced sexual activity: Not on file Other Topics Concern ??? Not on file Social History Narrative ??? Not on file REVIEW OF SYSTEMS: General: Denies fatigue, weight loss, chills, night sweats. Neuro: Denies seizure, SANDS, visual changes, diplopia, weakness/numbness in extremities. + CVA Psychiatric: +depression Cardiovascular: Denies CAD, family history of cardiac disease, CHF. + HTN/HLD/a fib/ CVA (4 years ago) Respiratory: Denies asthma, wheezing, stridor, hemoptysis, respiratory infection, TB or exposure toTB. GI: denies change in bowel habits : denies change in voiding habits Hematologic: Denies history of DVT, PE Endocrine: denies diabetes mellitus, denies thyroid disease. Musculoskeletal: + arthritis and h/o b/l knee replacement Integument: Denies skin cancer. Physical Exam: Pulse 61 Temp 36.5 ??C (97.7 ??F) (Temporal) Resp 18 Ht 146.5 cm (4' 9.68) Wt 68.5 kg (151lb) SpO2 98% BMI 31.91 kg/m?? General Appearance: Alert, cooperative, no distress, appears stated age, HEENT: PERRL, MMM, non-icteric Neck: Supple, symmetrical, trachea midline Lungs: Clear to auscultation b/l, respirations unlabored, no wheezes, crackles or ronchi. Heart: Regular rate and rhythm, S1 and S2 normal, no murmur, rub, or gallop Abdomen: Obese, soft, non-tender, bowel sounds normo-active in all four quadrants- difficult to assess masses and organomegaly given body habitus Extremities: Extremities normal, no cyanosis, clubbing. no edema Neurologic: A+Ox3, cranial nerves II-XII grossly intact Musculoskeletal: 3/5 strength at b/l hip flexors with difficulty getting onto the exam table otherwise 5/5 strength. Diagnostics: I have independently visualized all relevant imaging studies, including: CT CAP (01/10/2020): large paraesophageal hernia, small right pleural effusion. Bilateral thyroid nodules-largest being 2cm on the right. Assessment: This is a 80 y.o. female large paraesophageal hernia, SOB and symptoms concerning for aspiration. She needs to improve her functional status and complete additional testing to determine her surgical candidacy. Plan of Management: 1. Pulmonary rehab 2. Weight loss 1-2 pounds per week via health diet and exercise 3. Recommended and instructed patient to perform sit to stand exercised to improve her core strength as well as walking around her home during every TV commercial 4. Referral to GI for manometry testing (does not need pH testing) 5. Briefly discussed robotic, laparoscopic PEH repair- she will consider surgery and agreed to undergo testing 6. If we proceed with surgery, she will need a stress test prior. We will hold off on this for now. 7. 30 minutes of aerobic exercise daily, at minimum- as above 8. Barium swallow 9. RTC in 6-8 weeks to discuss weight loss progress, functional status and testing results. 10. Call with any questions Traci Montague PA-C 04/13/2020 Thoracic Surgery [facility] I have seen the patient and reviewed the PA/resident's above history and I agree with the details as written. The assessment and plan were formulated in discussion with me and I agree with them as documented. Assessment: This is a 80 y.o. female large paraesophageal hernia, SOB and symptoms concerning for aspiration. She needs to improve her functional status and complete additional testing to determine her surgical candidacy. Plan of Management: 1. Pulmonary rehab -I know that she will not be able to get into a formal pulmonary program at thistime but I like for her to start a formal exercise program. We will refer to pulmonary rehab so that she can start it as soon as they are open again. I gave her a full exercise program (detailed below) and explained that without her improving her functional status she would be very high risk for any surgical intervention. 2. Weight loss 1-2 pounds per week via health diet and exercise. She needs to start to decrease hertotal caloric intake which will include removing some high calorie foods as well as decreasing overall volume of food that she is eating. She understands the reason behind this is to reduce her risk of having recurrence of her hernia after repair. 3. Recommended and instructed patient to perform sit to stand exercised to improve her core strength as well as walking around her home during every TV commercial. She should try to build up to 30 minutes of aerobic exercise every day, this might take her weeks to months to take gain enough functional strength to do this, but it is a goal that she should have. 4. Referral to GI for manometry testing (does not need pH testing) 5. Briefly discussed robotic, laparoscopic PEH repair- she will consider surgery and agreed to undergo testing. I explained the patient the risks and benefits of the surgery and also her need to haveimproved overall functional status to do well from the surgery. She understands this and seems motivated. 6. If we proceed with surgery, she will need a stress test prior. We will hold off on this for now. 7. 30 minutes of aerobic exercise daily, at minimum- as above 8. Barium swallow to evaluate esophageal motility, location of GE junction as well as the gastric outflow. 9. RTC in 6-8 weeks to discuss weight loss progress, functional status and testing results. If her functional status is improved, she has been able to have a reasonable weight loss, and her studies show that she is a surgical candidate, we will proceed forward with a consent at that time. She will require a stress test if she wishes to proceed on with surgery. 10. She will need to follow-up with her PCP and pulmonology locally. 11. Call with any questions PATRICE CÁRDENAS MD documented in this encounter Plan of Treatment Scheduled Referrals Name Type Priority Associated Diagnoses Order Schedule Referral to Pulmonary Rehab Outpatient Referral Routine Hiatal hernia Ordered: 04/15/2020 Referral to Gastroenterology Outpatient Referral Routine Hiatal hernia Ordered: 04/15/2020 documented as of this encounter Visit Diagnoses Diagnosis Hiatal hernia Diaphragmatic hernia without mention of obstruction or gangrene documented in this encounter Care Teams Automotive Drivability Technician Relationship Specialty Start Date End Date Patricia Garza, PASS WORKER [address] [place] [address] PCP - General Internal Medicine 04/02/20 documented as of this encounter
--- OUTSIDE RECORDS SUMMARY | 2024-06-03 01:49 | XMS_ITS | Encounter Summary ---
Author Organization [facility] [place] [address] Care Team Providers Care Supervisor Channel Process Name Role Phone Patricia Garza APRN Primary Care Provider [phone] Reason for Referral * Consultation (Urgent) - Closed Specialty Diagnoses / Procedures Referred By Contac t Referred To Contact Gastroenterology Diagnoses Hiatal hernia HREM - HH Procedures HIGH RESOLUTION ESOPHAGEAL MANOMETRY HREM - HH Patrice Cárdenas MD [facility] [place] [address] [facility] [address] [place] [address] Referral ID Status Reason Start Date Expiration Date V isits Requested Visits Authorized [id number] Closed Test Only 04/26/2021 04/26/2022 1 1 Reason for Visit * Reason Comments Hiatal Hernia Encounter Details Date Type Department Care Team (Late st Contact Info) Description 04/26/2021 2:45 PM EDT Office Visit [place] [address] Patrice Cárdenas MD [facility] [place] [address] Hiatal hernia; Cerebrovascular accident (CVA) due to stenosis of other cerebral artery Social History Tobacco Use Types Packs/Day Years [...] Sign Reading Time Taken Comments Blood Pressure 145/80 04/26/2021 2:13 PM EDT Pulse 65 04/26/2021 2:13 PM EDT Temperature 36.2 ??C (97.2 ??F) 04/26/2021 2:13 PM ED T Respiratory Rate 20 04/26/2021 2:13 PM EDT Oxygen Saturation 95% 04/26/2021 2:13 PM EDT Inhaled Oxygen Concentration - - Weight 65.9 kg (145 lb 3.2 oz) 04/26/2021 2:13 P M EDT Height 146.5 cm (4' 9.68) 04/26/2021 2:13 PM ED T Body Mass Index 30.69 04/26/2021 2:13 PM EDT documented in this encounter Patient Instructions * Patient Instructions* Liveir Chaney RN - 04/26/2021 2:45 PM EDT Thank you for visiting Dr. Cárdenas in clinic 04/26/21 Dr. Cárdenas would like to see you back in clinic with a recent Esophageal Manometry Study. High-resolution manometry (HRM) of the esophagus is a new technique that provides a more precise assessment of esophageal motility than conventional techniques. Esophageal manometry (uyx-RCX-gt-tree) is a test that shows whether your [...] certain disorders that may affect your esophagus A barium swallow is a test that [...] documented in this encounter Progress Notes * Riley Verdugo MD - 04/26/2021 2:45 PM EDT Thoracic Surgery Attending Outpatient Follow Up Note Patrice Cárdenas MD [place] [address] FAX: Pre Op Dx: Large paraesophageal hernia HPI: Linda Fuller is a 81 y.o. female with large paraesophageal hernia. She came to my clinic , to discuss surgical repair. Her PMHx is significant for HTN, HLD, COPD, and CVA in February of 2020. Patient consulted first time on 04/13/2020 where esophageal barium and manometry mas ordered. Patient decided to not follow up. Given the worsening of symptoms over the last year, mostly worsening dysphagia, dyspnea, and Night-time reflux patient presented to the clinic with barium swallow results. They deny f/c/n/v/CP. Medications: Current Outpatient Medications on File Prior [...] Release(E.C.) Take 40 mg by mouth daily. Current Facility-Administered Medications on File Prior to Visit Medication Dose Route Frequency Provider Last Rate Last Admin ??? [COMPLETED] barium sulfate (Ezpaque) 60% (w/v) oral liquid 355 mL 355 mL Oral Once Ursula Galo MD 100 mL at 04/26/21 1400 ??? barium sulfate (E-Z Disk) tablet 700 mg 700 mg Oral Once Law Galo MD ??? barium sulfate (VARIBAR PUDDING) oral paste 230 mL 230 mL Oral Once Law Galo MD ??? [COMPLETED] barium sulfate (E-Z-HD) 98% oral liquid 50 mL 50 mL Oral Once Law Galo MD 50mL at 04/26/21 1430 Physical Exam: BP 145/80 (Patient Position: Sitting) Pulse 65 Temp 36.2 ??C (97.2 ??F) (Temporal) Resp 20 Ht 146.5 cm (4' 9.68) Wt 65.9 kg (145 lb 3.2 oz) SpO2 95% BMI 30.69 kg/m?? General Appearance: Alert, cooperative, no distress, appears stated age Nk: Supple, symmetrical, trachea midline, no adenopathy; thyroid: not enlarged, symmetric, no tenderness/mass/nodules; no carotid bruit or JVD Lungs: Clear to auscultation bilaterally, respirations unlabored, no wheezes, crackles or ronchi. Heart: Regular rate and rhythm, S1 and S2 normal, no murmur, rub, or gallop Abdomen: Soft, non-tender, minium discomfort on palpation over the Right iliac fossa, bowel sounds active all four quadrants, no masses, no organomegaly Extremities: Extremities normal, atraumatic, no cyanosis or edema Wound/Incision: N/A Imaging: I have independently visualized the following studies: XR Fluoro Barium Swallow (04/26/2021): IMPRESSION 1. Very large hiatal hernia, measuring approximately 22 cm. Gastroesophageal junction appears to be positioned in the posterior midline. 2. Patulous esophagus. Normal motility. 3. Moderately-sized cricopharyngeal bar. Assessment: Linda Fuller is a 81 y.o. female following up regarding her large paraesophageal hernia . She is currently presenting with worsening of dysphagia, dyspnea and reflux. Plan: 1. Please perform esophageal manometry 2. 30 minutes of aerobic exercise daily chair-bounded for patient optimization. 3. RTC in with results of esophageal manometry. Based on results we will discuss next steps with the patient 5. Weight control advised with diet and exercise for optimization. 4. Call with any questions Riley Verdugo, PGY1 I have seen the patient and reviewed the PA/resident's above history. The assessment and plan were formulated in discussion with me. Please see my note for details. PATRICE CÁRDENAS MD * Patrice Cárdenas MD - 04/26/2021 2:45 PM EDT Thoracic Surgery Attending Outpatient Follow Up Note Patrice Cárdenas MD [place] [address] FAX: Pre Op Dx: Large paraesophageal hernia Treatment: Probable surgery HPI: Linda Fuller is a 81 y.o. female with large symptomatic paraesophageal hernia. She comes back to clinic after undergoing some studies and to discuss surgical repair. Her PMHx is significantfor HTN, HLD, COPD, and CVA in February of 2020. Surgery was cancelled due to the CVA but they could notdetermine the cause of her stroke and feel that she is at low risk for a repeat event. Given the worsening of symptoms over the last year, mostly worsening dysphagia, dyspnea, and night-time reflux patient presented to the clinic with barium swallow results. She wishes to review her studies, discuss treatment options as well as discuss if surgery is an option. They deny f/c/n/v/CP. Medications: Current Outpatient Medications on File Prior [...] Release(E.C.) Take 40 mg by mouth daily. Current Facility-Administered Medications on File Prior to Visit Medication Dose Route Frequency Provider Last Rate Last Admin ??? [COMPLETED] barium sulfate (Ezpaque) 60% (w/v) oral liquid 355 mL 355 mL Oral Once Ursula Galo MD 100 mL at 04/26/21 1400 ??? barium sulfate (E-Z Disk) tablet 700 mg 700 mg Oral Once Law Galo MD ??? barium sulfate (VARIBAR PUDDING) oral paste 230 mL 230 mL Oral Once Law Galo MD ??? [COMPLETED] barium sulfate (E-Z-HD) 98% oral liquid 50 mL 50 mL Oral Once Law Galo MD 50mL at 04/26/21 1430 Physical Exam: BP 145/80 (Patient Position: Sitting) Pulse 65 Temp 36.2 ??C (97.2 ??F) (Temporal) Resp 20 Ht 146.5 cm (4' 9.68) Wt 65.9 kg (145 lb 3.2 oz) SpO2 95% BMI 30.69 kg/m?? General Appearance: Alert, cooperative, no distress, appears stated age Nk: Supple, symmetrical, trachea midline, no adenopathy Lungs: Clear to auscultation bilaterally, respirations unlabored, no wheezes, crackles or ronchi. Heart: Regular rate and rhythm, S1 and S2 normal, no murmur, rub, or gallop Abdomen: Soft, non-tender, minium discomfort on palpation over the Right iliac fossa, bowel sounds active all four quadrants, no masses, no organomegaly Extremities: Extremities normal, atraumatic, no cyanosis or edema Imaging: I have independently visualized the following studies: XR Fluoro Barium Swallow (04/26/2021): 1. Very large hiatal hernia, measuring approximately 22 cm. Gastroesophageal junction appears to bepositioned in the posterior midline. 2. Patulous esophagus. Normal motility. 3. Moderately-sized cricopharyngeal bar. Assessment: Linda Fuller is a 81 y.o. female with a symptomatic large paraesophageal hernia . She is currently presenting with worsening of dysphagia, dyspnea and reflux. Plan: 1. We will get her to schedule the esophageal manometry to confirm normal esophageal motility. It will also eval the UES, which might be contributing to her dysphagia 2. 30 minutes of aerobic exercise daily -- she should do chair aerobics. 3. RTC in with results of esophageal manometry. Based on results we will discuss next steps with the patient. We discussed robotic repair via a trans-abdominal approach. 5. Weight control advised with diet and exercise for optimization. 6. 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
--- OUTSIDE RECORDS SUMMARY | 2024-06-03 01:49 | XMS_ITS | Encounter Summary ---
[place] [address] Care Team Providers Care Table Cover Folder Name Role Phone Patricia Garza APRN Primary Care Provider Encounter Details Date Type Department Care Team (Late st Contact Info) Description 07/01/2021 Telephone [place] [phone] Kenzie Crawford Social History Tobacco Use Types Packs/Day Years [...] encounter Miscellaneous Notes * Telephone Encounter - Kenzie Crawford - 07/01/2021 12:04 PM EDT Referral faxed to [facility] for Cardiology to see documented in this encounter Plan of Treatment Not on file documented as of this encounter Visit Diagnoses Not on filedocumented in this encounter Care Teams Table Cover Folder Relationship Specialty Start Date End Date Patricia Garza APRN [address] [place] [address] PCP - General Internal Medicine 04/02/20 documented as of this encounter
--- OUTSIDE RECORDS SUMMARY | 2024-06-03 01:49 | XMS_ITS | Encounter Summary ---
[place] [address] Care Team Providers Care Automotive Specialty Technician Name Role Phone Patricia Garza APRN Primary Care Provider Encounter Details Date Type Department Care Team (Late st Contact Info) Description 06/08/2021 Telephone [place] [phone] Jennifer Cabrera Social History Tobacco Use Types Packs/Day Years [...] encounter Miscellaneous Notes * Telephone Encounter - Jennifer Cabrera LNA - 06/08/2021 1:31 PM EDT Stress test order faxed to [facility] per pt request [phone] documented in this encounter Plan of Treatment Not on file documented as of this encounter Visit Diagnoses Not on filedocumented in this encounter Care Teams Automotive Specialty Technician Relationship Specialty Start Date End Date Patricia Garza APRN [address] [place] [address] PCP - General Internal Medicine 04/02/20 documented as of this encounter
[2024-06-03] MEDS: Denosumab 60 MG/ML SYR SC (13:30)
== END 2024-06-28 23:59 | disposition home or self-care (01) ==
LOC: INF 01:32
PROVIDERS: PCP Nurse Practitioner; Visit Provider Nurse Practitioner
DX: M81.0 Age-related osteoporosis without current pathological fracture (principal)
CPT/HCPCS: 96372; J0897

== ENCOUNTER 2024-06-04 10:04 | Outpatient (CLI) | payer MEDICARE, MEDICAID, SELFPAY ==
[2024-06-04 10:35] LABS: Anion Gap 7.5 mmol/L (3-11); BUN 23 mg/dL (7-18); CO2 29.5 mmol/L (21.0-32.0); CREATININE 1.3 mg/dL (0.55-1.02); Chloride 105 mmol/L (98-107); Glucose 95 mg/dL (74-106); Magnesium 1.7 mg/dL (1.8-2.4); Sodium 142 mmol/L (136-145)
== END 2024-06-04 10:05 | disposition home or self-care (01) ==
PROVIDERS: PCP Nurse Practitioner; Visit Provider Nurse Practitioner
DX: I10 Essential (primary) hypertension (principal); M62.838 Other muscle spasm
CPT/HCPCS: 36415; 80048; 83735

== ENCOUNTER 2024-06-07 09:59 | Emergency (ER) | payer MEDICARE, MEDICAID, SELFPAY ==
[2024-06-07] VITALS (37 sets, daily range): BP systolic 121–185; BP diastolic 68–129; PULSE 67–105; RESP 13–31; TEMP 36.8–38.8; O2SAT 94–100
--- NOTE | 2024-06-07 10:00 | DI.RAD_ITS ---
Exam(s) XR PORTABLE CHEST AP EXAM: XR PORTABLE CHEST AP CLINICAL HISTORY: fever. TECHNIQUE: 2D digital imaging was performed. COMPARISON: CR XR PORTABLE CHEST AP from 01/01/2024 FINDINGS: Single AP portable view. Heart size is upper normal. The mediastinum is not widened. No infiltrates nor pleural effusions. A vertical line in the lower half of the right lung field is n oted which is probably artifact as there appear to be faint lung markings lateral to this. There are no pleural effusions. 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 IMPRESSION: Right lung finding as above. Recommend repeat frontal view, preferably nonportable PA DATA REPOSITORY: RADIATION DOSE DELIVERED:
--- NOTE | 2024-06-07 10:00 | RT.EKG_ITS ---
APPROVED REPORT Exam: Resting ECG Reason for Exam: weakness Patient Location: E HR:87 bpm ECG Measurements Heart Rate 87 AXIS NM [id number] P [id number] QRSd 89 QRS 10 QT 393 T 46 QTc 473 Conclusion Atrial fibrillation. 87 no stemi
[2024-06-07 10:30] LABS: Lactate 1.4 mmol/L (0.6-1.4)
[2024-06-07 10:31] LABS: Abs Immature Grans 0.03 10^3/uL (0.0-0.06); Absolute Basophil Count 0.06 10^3/uL (0.0-0.2); Absolute Eosinophil Count 0.15 10^3/uL (0.0-0.7); Absolute Lymphocyte Count 0.24 10^3/uL (1.2-3.4); Absolute Monocyte Count 0.45 10^3/uL (0.1-0.8); Absolute Neutrophil Count 5.32 10^3/uL (1.2-6.7); Eosinophils % 2.4 %; HCT 40.4 % (36.0-46.0); Immature Grans % 0.5 %; Lymphocytes % 3.8 %; MCH 30.2 pg (27.0-33.0); MCHC 32.2 % (32.0-36.0); MCV 94 fL (80-95); MPV 9.1 fL (8.0-11.0); Monocytes % 7.2 %; Neutrophils % 85.1 %; Platelet Count 265 10^3/uL (130-400); RBC 4.31 10^6/uL (3.93-5.22); RDW 13.6 % (11.7-14.6); WBC 6.25 10^3/uL (4.4-10.8)
--- OUTSIDE RECORDS SUMMARY | 2024-06-07 10:39 | XMS_ITS | Encounter Summary ---
[place] [address] Care Team Providers Care Change Management Analyst Name Role Phone Patricia Garza APRN [...] GERD/ (Sharla P 2021) Patricia Garza APRN [address] [place] [address] [facility] Gastro [address] [place] [address] Referral ID Status Reason Start Date Expiration Date V isits Requested Visits Authorized [id number] Closed Consult, Test & Treat PCP Updated and/or Approved 04/23/2023 10/23/2023 6 6 Encounter Details Date Type Department Care Team (Latest Contact Info) Description 05/04/2023 Transcribe Orders eDH Incoming Referrals [phone] Patricia Garza APRN [address] [place] [address] Routine general medical examination at a health [...] facility documented in this encounter Care Teams Change Management Analyst Relationship Specialty Start Date End Date Patricia Garza APRN [address] [place] [address] PCP - General Internal Medicine 04/02/20 documented as of this encounter
--- OUTSIDE RECORDS SUMMARY | 2024-06-07 10:39 | XMS_ITS | Encounter Summary ---
Author Organization [facility] Address [address] [place] [address] Care Team Providers Care Pi/Senior Research Associate Name Role Phone Unknown, Provider Primary Care Provider Encounter Details Date Type Department Care Team (Late st Contact Info) Description 10/10/[address] [facility] Pathology & Laboratory Medicine - [facility] [address] [place] [address] Patricia Garza NP [address] [place] [address] Encounter for other general examination [...] agglomeran s(A) VITEK SUSCEPTIBILITY 10/12/2022 9:23 EST [facility] Organism (organism) URINE / Unknown [...] th oxazole VITEK SUSCEPTIBILITY <=20 ug/mL: Susceptible Patricia Garza NP MICROBIOLOGY - GENER AL ORDERABLES Performing Organization Address [facility] de Phone Number [facility] [address] [place] [address] * (ABNORMAL) ORGANISM IDENTIFICATION AND SUSCEPTIBILITY (10/03/2022 16:23 EST) Organism ID Pseudomonas putida(A) VITEK SUSCEPTIBILITY 10/12/2022 9:24 EST [facility] Organism (organism) URINE / Unknown [...] - GENER AL ORDERABLES Performing Organization Address [facility] [[email or web address]] Co de Phone Number [facility] [address] [place] [address] documented in this encounter Visit Diagnoses Diagnosis Encounter for other general examination documented in this encounter Care Teams Pi/Senior Research Associate Relationship Specialty Start Date End Date Unknown, Provider, PCP - General 01/11/18 documented as of this encounter
--- OUTSIDE RECORDS SUMMARY | 2024-06-07 10:39 | XMS_ITS | Clinical Summary ---
Author Organization [facility] Address [address] [facility] [place] [address] Care Team Providers Care Dry Cleaning Supervisor Name Role Phone Patricia Garza APRN [...] Documents on File Type Date Recorded Patient Ict Sales Assistant Expl anation Personal Ict Sales Assistant 05/24/2021 12:[address] * Attempt [...] Status decision made by: Patient Care Teams Dry Cleaning Supervisor Relationship Specialty Start Date End Date Patricia Garza, LAZARA [address] [place] [address] PCP - General Internal Medicine 04/02/20
--- OUTSIDE RECORDS SUMMARY | 2024-06-07 10:39 | XMS_ITS | Encounter Summary ---
[place] [address] Care Team Providers Care Campus Recruiting Coordinator Name Role Phone Patricia Garza APRN Primary Care Provider Encounter Details Date Type Department Care Team (Late st Contact Info) Description 05/12/2022 Telephone [place] [phone] Radha Skinner, RN Social History Tobacco Use [...] 05/12/2022 10:30 AM EDT Incoming VM from WilberLinda's son (no personal rep on file) regarding her recent swallow study. Wilber states that she completed the test at [facility] and everythingwas fine, the cookie passed fine. He states they are unsure of next steps for her. Forwarded documented in this encounter Plan of Treatment Not on file documented as of this encounter Visit Diagnoses Not on filedocumented in this encounter Care Teams Campus Recruiting Coordinator Relationship Specialty Start Date End Date Patricia Garza APRN [address] [place] [address] PCP - General Internal Medicine 04/02/20 documented as of this encounter
--- OUTSIDE RECORDS SUMMARY | 2024-06-07 10:39 | XMS_ITS | Encounter Summary ---
Author Organization [facility] Address [address] [place] [address] Care Team Providers Care Sales Merchandiser Name Role Phone Unknown, Provider Primary Care Provider [phone] Encounter Details Date Type Department Care Team (Latest Contact Info) Description 01/11/2018 9:41 EDT - 01/11/2018 23:59 EDT Hospital Encounter [address] [address] Unknown, Provider, Discharge Disposition: Home or Self Care Social History Tobacco Use Types Packs/Day Years Used Date Smoking Tobacco: Never Assessed Sex and Gender Information Value Date Recorded Sex Assigned at Not on file Gender Identity Not on file Sexual Orientation Not on file documented as of this encounter Discharge Disposition Disposition Code Departure Means Destination Home or Self Long Term documented in this encounter Plan of Treatment Not on file documented as of this encounter Visit Diagnoses Not on filedocumented in this encounter Care Teams Sales Merchandiser Relationship Specialty Start Date End Date Unknown, Provider, PCP - General 01/11/18 documented as of this encounter
--- OUTSIDE RECORDS SUMMARY | 2024-06-07 10:39 | XMS_ITS | Encounter Summary ---
Author Organization [facility] Address [address] [place] [address] Care Team Providers Care Press Operator Carbon Blocks Name Role Phone Unknown, Provider Primary Care Provider [phone] Encounter Details Date Type Department Care Team (Late st Contact Info) Description 01/10/2018 Results Only [facility] [phone] Jodi Gillis MD [address] [place] [address] [address] [place], [place] [address] Social History Tobacco Use Types Packs/Day Years [...] ? LINDA ROSS ? Accession #: ? [id number] ? : ? 1940 (Age: 77) ??F ? Collect Date: ? 01/10/2018 ? Location: ? [facility] ? Receive Date: ? 01/11/2018 ? Provider: JODI GILLIS MD Copy to: [facility] REP ? Final Pathologic Diagnosis: GALLBLADDER, CHOLECYSTECTOMY: - Acute and chronic cholecystitis with reactive epithelial changes. See comment. - Cholelithiasis. Comment: Offset Label Rewinder slides of this case were reviewed at [...] dimension smooth multifaceted mixed cholesterol pigment calculus. Offset Label Rewinder sections are submitted, to include the cystic duct margin, en face, in 1. MANDY Monique (ASCP) 01/14/2018 3:08 PM End of Report [facility] 01/10/2018 21:2 8 EDT 01/11/2018 21:28 EDT Jodi Gillis MD PATHOLOGY ORDERA MARIBELL [facility] [address] [place] [address] documented in this encounter Visit Diagnoses Not on filedocumented in this encounter Care Teams Press Operator Carbon Blocks Relationship Specialty Start Date End Date Unknown, Provider, PCP - General 01/11/18 documented as of this encounter
--- OUTSIDE RECORDS SUMMARY | 2024-06-07 10:39 | XMS_ITS | Referral Summary ---
Author Organization [facility] Address [address] [place] [address] Care Team Providers Care Surfacer Name Role Phone Unknown, Provider Primary Care Provider [phone] Social History Tobacco Use Types Packs/Day Years Used Date Smoking Tobacco: Never Assessed Interpersonal Safety Answer Date Record ed Physically Hurt Never 05/31/2020 Verbally Threaten Not on file 05/31/2020 Sex and Gender Information Value Date Recorded Sex Assigned at Not on file Gender Identity Not on file Sexual Orientation Not on file Plan of Treatment Not on file Care Teams Surfacer Relationship Specialty Start Date End Date Unknown, Provider, PCP - General 01/11/18
--- OUTSIDE RECORDS SUMMARY | 2024-06-07 10:39 | XMS_ITS | Encounter Summary ---
Author Organization [facility] [place] [address] Care Team Providers Care Multimedia Services Manager Name Role Phone Patricia Garza APRN Primary Care Provider Reason for Visit * Consultation (Routine) - Closed Specialty Diagnoses / Procedures Referred By Amanuel de la paz Referred To Contact Dermatology Diagnoses consult on lesion left flank Procedures consult on lesion left flank Patricia Garza APRN [address] [place] [address] [facility] [address] [place] [address] Referral ID Status Reason Start Date Expiration Date Visits Re quested Visits Authorized [id number] Closed 05/25/2022 05/25/2023 1 1 Encounter Details Date Type Department Care Team (Late st Contact Info) Description 06/09/2022 1:40 PM EDT Office Visit Dermatology at [facility] [address] [place] [address] Rosa Elena Dorsey MD [facility] [address] [place] [address] Neoplasm of uncertain behavior, unspecified [...] Patient is referred to the clinic at [facility] of Patricia Garza for a spot of [...] N/A RTC: Pending Pathology []Note routed to secretary bookkeeper []Recall placed in scheduling system []Appointment scheduled at checkout Scribe attestation: ALTAF Roca has performed the documentation for this encounter in the presence of and acting as a scribe for Rosa Elena Dorsey MD. I performed the above scribed service and agree with the accuracy of the documentation in this encounter. Reviewed and signed by: Rosa Elena Dorsey MD Dermatology [facility] Patient seen and evaluated with staff watch repairer apprentice: Bright Mathias MD Department of Dermatology [facility] * Bright Mathias MD - 06/09/2022 1:40 [...] PM EDT 06/09/2022 1:48 PM EDT Narrative [facility] - 06/09/2022 1:48 PM EDT Specimen requisition ordered. ??Separate Pathology report to follow Bright Mathias MD PATHOLOGY/CYTOLOGY O RDERABLES [facility] [place] [address] * Surgical Pathology Report (06/09/2022 1:41 PM EDT) Final Diagnosis [id number] ? Location: [facility] The signing pathologist has [...] Verified: ??06/13/2022 10:30 ??Dermatopathol ogist Performed at: ??-[facility] Dept. 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 CITATIONS 1) ??Laurie Novoa, Mariely De La Paz, Adonis Bean's Pathology of the Skin with Clinical Correlations. 4th ed. Comfort Line: [employer]. 2012. pp. 3381. SPECIMEN(S) SUBMITTED A - left trunk, skin shave biopsy (1) CLINICAL INFORMATION 0.9 cm pink dome-shaped papule. Favor SCC SPECIMEN PROCESSING A - Labeled/Fixativ e: Patient demographics, formalin. Quantity/Size: ??Single, 1.3 x 0.9 cm. Tissue Description: Ovoid pink-white shave of a 1.8 x 1.0 x 0.7 cm wedge-shaped variegated qllj-sarhi-fiv- brown firm, scaly, keratotic lesion. Sections/Proces sing: Inked, serially sectioned and entirely submitted in 3 cassettes as follows: ?A1: ??Tips ?A2-A3: ??Lesion ??shb 06/13/2022 10:30 AM EDT [facility] SPECIMEN FROM SKIN / Unknown 06/09/2022 1:41 PM EDT 06/09/2022 1:41 PM EDT Rosa Elena Dorsey MD PATHOLOGY/CYTOLOGY O AIDEN [facility] [place] [address] documented in this encounter Visit Diagnoses Diagnosis Neoplasm of uncertain behavior, unspecified documented in this encounter Care Teams Multimedia Services Manager Relationship Specialty Start Date End Date Patricia Garza, ROBOT DESIGNER [address] [place] [address] PCP - General Internal Medicine 04/02/20 documented as of this encounter
--- OUTSIDE RECORDS SUMMARY | 2024-06-07 10:39 | XMS_ITS | Encounter Summary ---
Author Organization [facility] Address [facility] [place] [address] Care Team Providers Care Tipping Machine Operator Automatic Name Role Phone Patricia Garza APRN Primary Care Provider [phone] Reason for Visit * Consultation (Urgent) - Closed Specialty Diagnoses / Procedures Referred By Amanuel centeno Referred To Contact Gastroenterology Diagnoses Paraesophageal hernia Emesis, persistent Hal Marroquin MD [facility] [address] [facility] [place] [address] [place] [address] Referral ID Status Reason Start Date Expiration Date V isits Requested Visits Authorized [id number] Closed Consult, Test & Treat 11/14/2021 11/14/2022 1 1 Encounter Details Date Type Department Care Team (Latest Contact Info) Description 12/13/2021 3:00 PM EST Office [place] [address] Abbey Neumann PA [facility] [place] [address] Regurgitation and rechewing Social History [...] Repair Paraesophageal Hernia Incl Fundoplasty W/O Mesh (70043) (N/A, 08/15/2021); Upper GI Endoscopy, Diagnostic (15430) (N/A, 08/15/2021); and Upper GI Endoscopy, Diagnostic (77069) (N/A, 10/24/2021). Family History: family history includes [...] gastroesophageal Junction.. HREM 04/2021 Impressions based on [place] Classification v4.0: The catheter tip did not [...] She will try to arrange this at [facility]. Her son will contact them to schedule. If they do not have this test available they will let me know and will consider having this completed here at [facility]. They also question whether a hand stapler may be helpful. I do think a consultation with our GI hand stapler may be helpful to review a delayed gastric emptying diet. All of their questions today were answered and they are comfortable with this plan MANDY Barcenas [facility] [place] [address] documented in this encounter Plan of Treatment Not on file documented as of this encounter Visit Diagnoses Diagnosis Regurgitation and rechewing Vomiting alone documented in this encounter Care Teams Tipping Machine Operator Automatic Relationship Specialty Start Date End Date Patricia Garza APRN [address] [place] [address] PCP - General Internal Medicine 04/02/20 documented as of this encounter
--- OUTSIDE RECORDS SUMMARY | 2024-06-07 10:39 | XMS_ITS | Encounter Summary ---
Author Organization [facility] [place] [address] Care Team Providers Care Catalyst Operator Gasoline Name Role Phone Patricia Garza APRN Primary Care Provider [phone] Encounter Details Date Type Department Care Team (Late st Contact Info) Description 06/20/2022 2:40 PM EDT Office Visit Dermatology at [facility] [address] [place] [phone] Yolie Crow MD [facility] [address] [place] [address] Keratoacanthoma Social History Tobacco Use Types Packs/Day [...] Reviewed pathology and ED&C procedure with patient. [place] decision to proceed with ED&C today. - [...] At patients for FBSE []Note routed to plaster whittler []Recall placed in scheduling system [x]Appointment scheduled at checkout Scribe attestation: ALTAF Roca has performed the documentation for this encounter in the presence of and acting as a scribe for Yolie Crow MD. I performed the above scribed service and agree with the accuracy of the documentation in this encounter. Reviewed and signed by: Yolie Crow MD Dermatology [facility] Patient seen and evaluated with staff correction officer penitentiary: Rina Ramos MD Dermatology [facility] * Rina Ramos MD - 06/20/2022 2:40 [...] skin documented in this encounter Care Teams Catalyst Operator Gasoline Relationship Specialty Start Date End Date Patricia Garza APRN [address] [place] [address] PCP - General Internal Medicine 04/02/20 documented as of this encounter
--- OUTSIDE RECORDS SUMMARY | 2024-06-07 10:39 | XMS_ITS | Encounter Summary ---
Author Organization [facility] [place] [address] Care Team Providers Care Park Police Name Role Phone Kayla Patriciajim Gomes APRN Primary Care Provider [phone] Encounter Details Date Type Department Care Team (Late st Contact Info) Description 07/10/2022 3:20 PM EDT Office Visit Dermatology at [facility] [address] [place] [phone] Yolie Crow MD [facility] [address] [address] KA (keratoacanthoma); Actinic keratoses; Seborrheic keratoses; Burgos [...] RTC: 1 year FSE []Note routed to medical secretary teacher [x]Recall placed in scheduling system []Appointment scheduled at checkout Scribe attestation: Madelyn Goldberg [facility] has performed the documentation for this encounter in thepresence of and acting as a scribe for Yolie Crow MD. I performed the above scribed service and agree with the accuracy of the documentation in this encounter. Reviewed and signed by: Yolie Crow MD Dermatology [facility] * Bridgett Acuna MD - 07/10/2022 3:20 PM EDT I was the supervising physician working with dermatology resident Dr. Crow in the dermatology clinic during this patient visit. The level of resident supervision for this patient visit was indirectsupervision with direct supervision immediately available. (definition: [facility]ME Policy Statement on Graduate Medical Education, [...] non-neoplastic documented in this encounter Care Teams Park Police Relationship Specialty Start Date End Date Patricia Garza APRN [address] [place] [address] PCP - General Internal Medicine 04/02/20 documented as of this encounter
--- OUTSIDE RECORDS SUMMARY | 2024-06-07 10:39 | XMS_ITS | Encounter Summary ---
Author Organization [facility] Address [facility] [place] [address] Care Team Providers Care Cv Tech Name Role Phone Patricia Garza APRN Primary Care Provider [phone] Reason for Visit * Consultation (Routine) - Closed Specialty Diagnoses / Procedures Referred By Contkimberley t Referred To Contact Gastroenterology Diagnoses Noninfective gastroenteritis and colitis, unspecified Gastro-esophageal reflux disease without esophagitis Other specified postprocedural states Personal history of other diseases of the digestive system motility- noinfective gastroenteritis- GERD/ (Sharla P 2021) Patricia Garza APRN [address] [place] [address] [facility] [address] [place] [address] Referral ID Status Reason Start Date Expiration Date V isits Requested Visits Authorized [id number] Closed Consult, Test & Treat PCP Updated and/or Approved 04/23/2023 10/23/2023 6 6 Encounter Details Date Type Department Care Team (Latest Contact Info) Description 02/26/2024 11:00 AM EDT TH Visit (TeleHealth) [place] [address] Abbey Neumann PA [facility] [place] [address] Change in bowel habits Social History Tobacco [...] No nocturnal awakening December she was at [facility] for 'demand ischemia'- her family feels it [...] Repair Paraesophageal Hernia Incl Fundoplasty W/O Mesh (57418) (N/A, 08/15/2021); Upper GI Endoscopy, Diagnostic (11208) (N/A, 08/15/2021); and Upper GIEndoscopy, Diagnostic (72400) (N/A, 10/24/2021). Family History: family history includes [...] gastroesophageal Junction.. HREM 04/2021 Impressions based on [place] Classification v4.0: The catheter tip did not [...] spasm. Follow-up in 3 months MANDY Barcenas [facility] [place] [address] documented in this encounter Plan of Treatment Scheduled Referrals Name Type Priority Associated Diagnoses Order Schedule Referral to Gastroenterology Outpatient Referral Routine Routine general medical examination [facility] Ordered: 05/04/2023 documented as of this encounter Visit Diagnoses Diagnosis Change in bowel habits Other symptoms involving digestive system documented in this encounter Care Teams Cv Tech Relationship Specialty Start Date End Date Patricia Garza APRN [address] [place] [address] PCP - General Internal Medicine 04/02/20 documented as of this encounter
--- OUTSIDE RECORDS SUMMARY | 2024-06-07 10:39 | XMS_ITS | Encounter Summary ---
Author Organization [facility] Address [address] [place] [address] Care Team Providers Care Agriculture Manager Name Role Phone Unknown, Provider Primary Care Provider [phone] Encounter Details Date Type Department Care Team (Late st Contact Info) Description 10/01/2020 Lab Requisition [facility] Pathology & Laboratory Medicine - [facility] [address] [place] [address] Outr Resulting Lab, Provider Social History Tobacco [...] in accordance with CLIA regulations, [employer] (CAP) guidelines (Jan 15, 2020), and FDA guidance (Dec 27, 2019). This test is only for use under the Food and Drug Administration's Emergency Use Authorization. Swab ENTIRE NASOPHARYNX / Unknown 10/01/2020 13:55 EST 10/01/2020 21:31 EST Provider Outr Resulting Lab MICROBIOLOGY - GENERAL ORDERABLES [facility] [place] * COVID-19 TESTING (10/01/2020 13:55 EST) COVID-19 rt-PCR Result NEGATIVE Negative 10/04/2020 14:11 EST [facility] Comment: 2019-novel Coronavirus (2019-nCoV) not detected [...] in accordance with CLIA regulations, [employer] (CAP) guidelines (Jan 15, 2020), and FDA guidance (Dec 27, 2019). This test is only for use under the Food and Drug Administration's Emergency Use Authorization. Performing Lab [facility] 10/04/2020 14:11 EST [facility] Swab 10/01/2020 13:5 5 EST 10/01/2020 21:31 EST Provider Outr Resulting Lab MICROBIOLOGY - GENERAL ORDERABLES [facility] [address] [place] [address] [facility] [place] documented in this encounter Visit Diagnoses Not on filedocumented in this encounter Care Teams Agriculture Manager Relationship Specialty Start Date End Date Unknown, Provider, PCP - General 01/11/18 documented as of this encounter
--- OUTSIDE RECORDS SUMMARY | 2024-06-07 10:39 | XMS_ITS | Encounter Summary ---
Author Organization [facility] [place] [address] Care Team Providers Care Emissions Technician Name Role Phone Patricia Garza APRN Primary Care Provider [phone] Reason for Referral * Consultation (Urgent) - Closed Specialty Diagnoses / Procedures Referred By Contac t Referred To Contact Gastroenterology Diagnoses Paraesophageal hernia Emesis, persistent Hal Marroquin MD [facility] [place] [address] [facility] [address] [place] [address] Referral ID Status Reason Start Date Expiration Date V isits Requested Visits Authorized [id number] Closed Consult, Test & Treat 11/14/2021 11/14/2022 1 1 Encounter Details Date Type Department Care Team (Late st Contact Info) Description 11/14/2021 Telephone [place] [address] Livier Chaney, RN Social History [...] vomiting documented in this encounter Care Teams Emissions Technician Relationship Specialty Start Date End Date Patricia Garza APRN [address] [place] [address] PCP - General Internal Medicine 04/02/20 documented as of this encounter
--- OUTSIDE RECORDS SUMMARY | 2024-06-07 10:39 | XMS_ITS | Encounter Summary ---
Author Organization [facility] Address [address] [place] [address] Care Team Providers Care Multilith Operator Name Role Phone Unknown, Provider Primary Care Provider Encounter Details Date Type Department Care Team (Late st Contact Info) Description 04/26/2023 Lab Requisition [facility] Pathology & Laboratory Medicine - [facility] [address] [place] [address] Outr Resulting Lab, Provider Social History Tobacco [...] Salmonella PCR Negative Negative 04/27/2023 7:06 EDT [facility] Shigella/Enteroin vasive E. coli Negative Negative 04/27/2023 7:06 EDT [facility] HN LAB CAMPYLOBACTER PCR Negative Negative 04/27/2023 7:06 EDT [facility] Shiga Toxin PCR Negative Negative 7:06 EDT [facility] Feces SPECIMEN FROM RECTUM / Unknown 04/24/2023 10:30 EDT 04/26/2023 18:18 EDT Provider Outr Resulting Lab MICROBIOLOGY - GENERAL ORDERABLES [facility] [address] [place] [id number] documented in this encounter Visit Diagnoses Not on filedocumented in this encounter Care Teams Multilith Operator Relationship Specialty Start Date End Date Unknown, Provider, PCP - General 01/11/18 documented as of this encounter
--- OUTSIDE RECORDS SUMMARY | 2024-06-07 10:39 | XMS_ITS | Clinical Summary ---
Author Organization [facility] Address [address] [place] [address] Care Team Providers Care Test Developer Name Role Phone Unknown, Provider Primary Care [...] COVID-19 Vaccine (24 season) 2023 Care Teams Test Developer Relationship Specialty Start Date End Date Unknown, Provider, PCP - General 01/11/18
--- OUTSIDE RECORDS SUMMARY | 2024-06-07 10:39 | XMS_ITS | Encounter Summary ---
[place] [address] Care Team Providers Care Auto Machinist Name Role Phone Patricia Garza APRN Primary Care Provider Encounter Details Date Type Department Care Team (Late st Contact Info) Description 03/29/2022 Ancillary Procedure [place] [address] Patricia Garza APRN [address] [place] [id number] Social History Tobacco Use Types Packs/Day Years [...] nuclear medicine (03/29/2022 12:00 AM EDT) Narrative [facility] - 03/30/2022 9:04 AM EDT This exam is auto-finalizing. It's purpose is for storage only. Patricia Garza APRN IM FILM LIBRARY ORD ERABLES [place], [place] documented in this encounter Visit Diagnoses Not on filedocumented in this encounter Care Teams Auto Machinist Relationship Specialty Start Date End Date Patricia Garza APRN [address] [place] [address] PCP - General Internal Medicine 04/02/20 documented as of this encounter
--- OUTSIDE RECORDS SUMMARY | 2024-06-07 10:40 | XMS_ITS | Encounter Summary ---
[place] [address] Care Team Providers Care Forming Press Operator Name Role Phone Patricia Garza APRN Primary Care Provider [phone] Reason for Visit * Reason Comments Emesis * Auth/Cert Specialty Diagnoses / Procedures Referred By Contac t Referred To Contact Diagnoses Hematemesis Referral ID Status Reason Start Date Expiration Date Visits Re quested Visits Authorized [id number] 1 1 Encounter Details Date Type Department Care Team (Late st Contact Info) Description 10/24/2021 1:00 PM EST - 10/24/2021 1:30 PM EST [place] [address] Houston Mehta MD [facility] [place] [address] EGD, UPPER GI ENDOSCOPY (WRVU 2.09) Social [...] Hospital Course: Linda Fuller was admitted to [facility] on 10/23/2021via the ED. She was [...] a nurse in the Thoracic Clinic at [phone]. After hours or on weekends oridays please call: [phone] and ask to speak to the Thoracic Surgeon director of vocational guidance. Diet: You should follow a puree to soft solid diet as tolerated. If you are having trouble eating or keeping food down please call our office. Smoking: If you are a smoker, please avoid smoking. If you are a smoker who needs help quitting, please call the thoracic surgery clinic at [phone]. Follow up appointments: You should follow up [...] the day after the procedure, use an rjhg-zwv-rhjoixt spray to numb your throat. Sucking on [...] occurs, please contact your Doctor. Please call [phone] before 8pm Mon-Fri with problems, questions or concerns. If you call after 8pm or on weekends, call the Hospital at [phone] and ask to speak to the Civil Rights Investigator director of vocational guidance and the melt down furnace operator will contact that person for you. When should you call for help? Call [phone] anytime you think you may need emergency [...] any problems. Where can you learn more? [facility] View your After Visit Summary and more online at [email or web address] If you would like to provide feedback about your hospital experience, please call the Office of Patient and Family Relations at . If you have received this After Visit Summary in error, please immediately return it in person to the department, or notify the [facility] Privacy Office by calling toll free at between the hours of 8AM and 5PM to arrange for our retrieval of the documents at no cost to you. Content Version: 12.2 ?? 5280-3077 [employer]. Care instructions adapted under license by [facility]. If you have questions about a medical condition or this instruction, always ask your healthcare professional. [employer] disclaims any warranty or liability for your use of this information. Learning About Pureeing Foods What are pureed foods? Puree (say Sharon) is a way to change the texture of solid food so that it is smooth with no lumps and has a texture like pudding. You can puree food in a ios architect or fast food shift lead. Pureed foods are important if you have [...] smaller pieces, and place them in a ios architect or fast food shift lead. You may need to add liquid such as juice or broth to get the right thickness. Adding food or liquid slowly into the ios architect or fast food shift lead will help you get to the right [...] Where can you learn more? Scan the [facility] code or Visit our health information library at [email or web address]/ You can also view health information on Semanticator, your personal patient account. Log in or sign uptoday. Enter D793 in the search box to learn more about Learning About Pureeing Foods. Current as of: July 06, 2021?Content Version: 13.1 ?? [employer]. Care instructions adapted under license by [facility]. If you have questions about a medical condition or this instruction, always ask your healthcare professional. [employer] disclaims any warranty or liability for your [...] one of these types of foods: ? Fdro-ro-hirw foods. These are foods that are soft [...] Where can you learn more? Scan the [employer] [facility] code or Visit our SvitStyle information library at [email or web address]/ You can also view health information on [employer], your personal patient account. Log in or sign uptoday. Enter R741 in the search box to learn more about Learning About the Diet for Swallowing Problems. Current as of: April 28, 2021?Content Version: 13.1 ?? [employer]. Care instructions adapted under license by [facility]. If you have questions about a medical condition or this instruction, always ask your healthcare professional. [employer] disclaims any warranty or liability for your use of this information. Provider Contact Information: Primary Care Provider: Patrciia Garza APRN [phone] Discharge References/Attachments: Discharge References/Attachments None For questions [...] the day after the procedure, use an udvy-fzi-zyrylpy spray to numb your throat. Sucking on [...] occurs, please contact your Doctor. Please call [phone] before 8pm Mon-Fri with problems, questions or concerns. If you call after 8pm or on weekends, call the Hospital at [phone] and ask to speak to the Civil Rights Investigator director of vocational guidance and the melt down furnace operator will contact that person for you. When should you call for help? Call [phone] anytime you think you may need emergency [...] any problems. Where can you learn more? [facility] View your After Visit Summary and more online at [email or web address] If you would like to provide feedback about your hospital experience, please call the Office of Patient and Family Relations at . If you have received this After Visit Summary in error, please immediately return it in person to the department, or notify the [facility] Privacy Office by calling toll free at between the hours of 8AM and 5PM to arrange for our retrieval of the documents at no cost to you. Content Version: 12.2 ?? 7156-0117 [employer]. Care instructions adapted under license by [facility]. If you have questions about a medical condition or this instruction, always ask your healthcare professional. [employer], [facility] disclaims any warranty or liability for your use of this information. Learning About Pureeing Foods What are pureed foods? Puree (say Sharon) is a way to change the texture of solid food so that it is smooth with no lumps and has a texture like pudding. You can puree food in a ios architect or fast food shift lead. Pureed foods are important if you have [...] smaller pieces, and place them in a ios architect or fast food shift lead. You may need to add liquid such as juice or broth to get the right thickness. Adding food or liquid slowly into the ios architect or fast food shift lead will help you get to the right [...] Where can you learn more? Scan the [employer] code or Visit our health information library at [email or web address].Animal Innovations/dh/ You can also view health information on [employer]ator, your personal patient account. Log in or sign uptoday. Enter D793 in the search box to learn more about Learning About Pureeing Foods. Current as of: July 06, 2021?Content Version: 13.1 ?? [employer]. Care instructions adapted under license by [facility]. If you have questions about a medical condition or this instruction, always ask your healthcare professional. [employer] disclaims any warranty or liability for your use of this information. Learning About the Diet for Swallowing Problems What are swallowing problems? Difficulty swallowing is also called dysphagia (say slz-BVP-ggf-uh). It is most often a sign of [...] one of these types of foods: ? Gczg-ac-kwuf foods. These are foods that are soft [...] Where can you learn more? Scan the [employer] code or Visit our health information library at [email or web address]/[employer]/ You can also view health information on Sem[employer]ator, your personal patient account. Log in or sign uptoday. Enter R741 in the search box to learn more about Learning About the Diet for Swallowing Problems. Current as of: April 28, 2021?Content Version: 13.1 ?? [employer]. Care instructions adapted under license by [facility]. If you have questions about a medical condition or this instruction, always ask your healthcare professional. [employer], [employer] disclaims any warranty or liability for your use of this information. * Patient Instructions* Jacqueline Paul MD - 10/25/2021 10:14 AM EST Call if you have any questions. During normal business hours, Sunday- Sunday 8:00 a.m.-5:00 p.m., please call to speak to a nurse in the Thoracic Clinic at [phone]. After hours or on weekends orholidays please call: [phone] and ask to speak to the Thoracic Surgeon director of vocational guidance. Diet: You should follow a puree to soft solid diet as tolerated. If you are having trouble eating or keeping food down please call our office. Smoking: If you are a smoker, please avoid smoking. If you are a smoker who needs help quitting, please call the thoracic surgery clinic at [phone]. Follow up appointments: You should follow up [...] completed barium swallow test and evaluation by SURGICAL TECH. Patient A&O x4. VSS on RA, with [...] Paul MD - 10/24/2021 11:27 AM EST [facility] Department of Thoracic Surgery Progress Note Patient Name: Linda Fuller Patient : 1940 Patient Patient Location: [address] [place] [address] Attending Surgeon: PATRICE CÁRDENAS ID: Linda Fuller [...] 26.6) performed by Patrice Cárdenas MD at [facility] MAIN OR ??? PRO UPPER GI ENDOSCOPY, DIAGNOSTIC N/A 08/15/2021 EGD, UPPER GI ENDOSCOPY performed by Patrice Cárdenas MD at [facility] MAIN OR Vitals: Temp: [36.5 ??C (97.7 ??F)-36.7 ??C (98.1 ??F)] Heart Rate: [61-64] Resp: [16-22] BP: (118-184)/(45-102) SpO2: [96 %-99 %] Heart Rate from SpO2: [53 bpm-60 bpm] Wt & BMI By Encounter Date ED to Hosp-Admission (Current) from 10/23/2021 in 4 [facility] Acute [facility] Office Visit from 08/30/2021 in Thoracic Surgery at [facility] Weight 58.3 kg (128 lb 9.6 oz) [...] QTC Calculated (Bezet) 491 ms Calculated P [place] 96 degrees Calculated R [place] 27 degrees Calculated T [place] 51 degrees INTERPRETATION Sinus rhythm with 1st [...] Value Ref Range T&S only valid at [facility] COVID-19 PCR Specimen: Nasopharyngeal Swab Symptoms->Surveillance Result Value Ref Range SARS-CoV-2 RNA PCR Not Detected Not Detected SARS-CoV-2 Source TOOL GRINDING MACHINE OPERATOR Swab Hemogram Result Value Ref Range WBC [...] Paul MD 10/24/2021 Thoracic Surgery Service Pager [phone] documented in this encounter H&P Notes * [...] Paul MD - 10/23/2021 4:00 PM EST [facility] Department of Thoracic Surgery H&P Patient Name: [...] 26.6) performed by Patrice Cárdenas MD at [facility] MAIN OR ??? PRO UPPER GI ENDOSCOPY, DIAGNOSTIC N/A 08/15/2021 EGD, UPPER GI ENDOSCOPY performed by Patrice Cárdenas MD at [facility] MAIN OR Vitals: Temp: [36.6 ??C (97.9 ??F)] Heart Rate: [62-64] Resp: [16-18] BP: (150-171)/(45-78) SpO2: [98 %] Heart Rate from SpO2: -- Wt & BMI By Encounter Date ED from 10/23/[address] [facility] Office Visit from 08/30/2021 in Thoracic Surgery at [facility] Weight 59 kg (130 lb) 1 10/23/2021 [...] QTC Calculated (Bezet) 491 ms Calculated P [place] 96 degrees Calculated R [place] 27 degrees Calculated T [place] 51 degrees INTERPRETATION Sinus rhythm with 1st [...] Value Ref Range T&S only valid at [facility] Diagnostics: EKG sinus rhythm with first [...] Paul MD 10/23/2021 Thoracic Surgery Service Pager [phone] documented in this encounter ED Notes * [...] Value Ref Range T&S only valid at [facility] COVID-19 PCR Specimen: Nasopharyngeal Swab Symptoms->Surveillance Result Value Ref Range SARS-CoV-2 RNA PCR Not Detected Not Detected SARS-CoV-2 Source TOOL GRINDING MACHINE OPERATOR Swab EKG NSR without overlying ischemia prolonged [...] Notes * Initial Assessments - Shirley Schaefer, SURGICAL TECH - 10/25/2021 11:41 AM EST Speech Therapy [...] 10/25/21 (results pending, normal per RN report) SURGICAL TECH consulted for a bedside swallow evaluation. Prior [...] order; OK for a regular diet from SURGICAL TECH standpoint. Diagnosis: Normal oral manipulation of bolus, [...] ?? Alternate liquids and solids No further SURGICAL TECH intervention is warranted while hospitalized. Do not anticipate need from SURGICAL TECH services in discharge location. Plan: Therapy Frequency (SURGICAL TECH Eval): evaluation only Patient / family are in agreement with treatment plan. Total Minutes (Speech Language Pathology): 20 Thank you for this consult with this patient. Please feel free to page me with any questions or concerns. Shirley Schaefer MS, [facility]-SURGICAL TECH Pager: [phone] Speech-Language Pathologist Inpatient Rehabilitation Medicine * Care [...] Insurance: N/A Prescription Coverage: YES [place] [address] This plan was formulated with input from patient and team. All are in agreement with plan. Pt admitted as OBSVO. R. (Reji) PAULETTE Vidal RN/CM - Cellphone: [phone] Pager: [phone] Covering Service RN/CM * Initial Assessments - [...] Component Value Date COVID19 Detected (A) 09/04/2020 [id number] Not Detected 10/23/2021 Present on Admission: ??? Hematemesis Hospitalizations Within the Past 30 Days: no previous admission in last 30 days Patient receiving hospital care under Observation status. Admission order reviewed. Primary Insurance on file: MEDICARE Secondary Insurance on file: n/a Primary care provider on file: Patricia Garza APRN [phone] Pharmacy: [facility] [address] [place] [address] Advance Care Planning: History <no information> -Advanced [...] chair (4WW) [address] [facility] [address] Social & Family Supports: Extended Emergency Contact Information Primary Emergency Contact: SANJAY CEBALLOS Address: [facility] [place] [address] [facility] Relation: Child Secondary Emergency Contact: Narcisa Palumbo Address: [address] [place], [place] [address] [place] [address] Mobile Relation: Child Current Care Provided by: [...] via car when medically ready. Registered Nurse Chief Of Surgery / Bucket Operator will continue to follow patient???s progress and remain available if situation changes for coordination of care, psychosocial support and/or discharge planning. RN/CM notes: Pt had used [facility] (referral 07/2021). RN/CM called and patient was discharged from all home care services on 10/05 by meeting goals. Office of Care Management Mayela Vidal RN RN (Jonas)/CM - Cellphone: [phone] Pager: [phone] Covering Service RN/CM * Plan of Care [...] M.D. Fellow in Gastroenterology and Hepatology Pager #[phone] 10/23/2021 Associated attestation - Houston Mehta MD [...] documented. Houston Mehta MD Section of Gastroenterology [facility] documented in this encounter Plan of Treatment [...] 7:25 PM EST Upper GI Endoscopy, Diagnostic ([address]) 10/24/2021 1:09 PM EST hematemesis UPPER GI ENDOSCOPY Routine 10/24/2021 11 :55 AM EST HC HEMOGRAM STAT 10/24/2021 4:07 AM EST HC PHOSPHORUS, SERUM STAT 10/24/2021 4:07 AM EST HC MAGNESIUM, SERUM STAT 10/24/2021 4 :07 AM EST BASIC METABOLIC PANEL STAT 10/24/2021 4:07 AM EST RAPID COVID-19 PCR ([facility]) STAT 10/23/2021 3:52 PM EST TYPE AND [...] who have questions please contact the health manager managed care that requested your imaging first. ? Narrative [...] and chest abdomen pelvis CT 01/10/2020 FINDINGS: Property And Casualty Insurance Agent imaging: Cholecystectomy clips project over the RIGHT [...] 04/26/2021, and chest abdomen pelvisCT 01/10/2020 FINDINGS: Property And Casualty Insurance Agent imaging: Cholecystectomy clips project over the RIGHT [...] patients who have questions please contactthe health manager managed care that requested your imaging first. Patrice Cárdenas MD IMG FLUORO ORDERABLE S * (ABNORMAL) Basic Metabolic Panel (non-fasting) (10/25/2021 5:45 AM EST) Glucose 87 65 - 199 mg/dL [facility] Comment:Diabetes: >=200 mg/d L plus symptoms Blood Urea Nitrogen 10 8 - 18 mg/dL [facility] Creatinine 0.68(L) 0.70 - 1.20 mg/dL [facility] Sodium 139 135 - 145 mmol/L [facility] Potassium 3.3(L) 3.5 - 5.0 mmol/L [facility] Comment: Please note: ??Patients with WBC >100,000 may have falsely elevated Potassium levels. ??For accurate Potassium quantification in these patients send serum separator tube (gold top) for subsequent determinations. ??Contact the Clinical Chemistry Laboratory if there are any questions. Chloride 104 98 - 107 mmol/L [facility] Carbon Dioxide 23 22 - 31 mmol/L [facility] Anion Gap 12 5 - 15 mmol/L [facility] Calcium 8.5 8.5 - 10.5 mg/dL [facility] Est Glomerular Filtration Rate 81 >=60 mL/min/1. 73 m?? [facility] Comment: This patient? s estimated [...] In Lab Patrice Cárdenas MD CHEMISTRY ORDERABLES [facility] [place] [address] * (ABNORMAL) Phosphorus (10/25/2021 5:45 AM EST) Phosphorus 2.1(L) 2.5 - 4.5 mg/dL [facility] Blood 10/25/2021 5:45 AM EST 10/25/2021 5:59 AM EST Narrative Resulting Agency Comment Spec In Lab Patrice Cárdenas MD CHEMISTRY ORDERABLES [facility] [place] [address] * Magnesium (10/25/2021 5:45 AM EST) Pathologist [facility] Magnesium 0.87 0.69 - 1.07 mmol/L [facility] Blood 10/25/2021 5:45 AM EST 10/25/2021 5:59 AM EST Narrative Resulting Agency Comment Spec In Lab Patrice Cárdenas MD CHEMISTRY ORDERABLES Performing Organization Address [facility] Co de Phone Number [facility] [place] [address] * Hemogram (10/25/2021 5:45 AM EST) [facility] White Blood Cell 6.4 4.0 - 9.5 x10(3)/[facility] Red Blood Cell 4.26 4.00 - 5.21 x10(6)/[facility] Hemoglobin 12.9 11.7 - 15.5 g/dL [facility] Hematocrit 39.7 35.7 - 45.8 % [facility] Mean Cell Volume 93.2 82.6 - 94.4 [facility] Mean Cell Hemoglobin 30.3 27.1 - 32.0 pg [facility] Mean Cell Hemoglobin Concentration 32.5 31.7 - 35.0 g/dL [facility] Platelet 281 145 - 357 x10(3)/[facility] RDW Standard Deviation 44.8 37.0 - 46.0 [facility] RDW coefficient of variation 13.1 11.5 - 14.1 % [facility] Mean Platelet Volume 9.8 7.6 - 12.9 [facility] NRBC% auto 0.0 % [facility] NRBC Absolute 0.000 0.000 - 0.000 x10(3)/[facility] Blood 10/25/2021 5:45 AM EST 10/25/2021 5:59 AM EST Narrative Resulting Agency Comment Spec In Lab Patrice Cárdenas MD HEMATOLOGY ORDERABLE S Performing Organization Address City/[facility]/ZIP Co de Phone Number [facility] [place] [address] * Green Tube HOLD (10/24/2021 7:25 PM EST) Pathologist [facility] Green Hold Sample in lab. [facility] Blood Venous Draw / Unknown 10/24/2021 7:25 PM EST 10/24/2021 7:32 PM EST Jacqueline Paul MD CHEMISTRY ORDERABLES Performing Organization Address City/[facility] Co de Phone Number [facility] [place] [address] * (ABNORMAL) Hemogram (10/24/2021 7:25 PM EST) [facility] White Blood Cell 5.6 4.0 - 9.5 x10(3)/mc L [facility] Red Blood Cell 3.90(L) 4.00 - 5.21 x10(6)/mc L [facility] Hemoglobin 12.3 11.7 - 15.5 g/dL [facility] Hematocrit 36.6 35.7 - 45.8 % [facility] Mean Cell Volume 93.8 82.6 - 94.4 [facility] Mean Cell Hemoglobin 31.5 27.1 - 32.0 pg [facility] Mean Cell Hemoglobin Concentration 33.6 31.7 - 35.0 g/dL [facility] Platelet 261 145 - 357 x10(3)/mc L [facility] RDW Standard Deviation 45.0 37.0 - 46.0 [facility] RDW coefficient of variation 13.2 11.5 - 14.1 % [facility] Mean Platelet Volume 9.8 7.6 - 12.9 fL [facility] NRBC% auto 0.0 % [facility] NRBC Absolute 0.000 0.000 - 0.000 x10(3)/mc L [facility] Blood 10/24/2021 7:25 PM EST 10/24/2021 7:31 PM EST Narrative Resulting Agency Comment Spec In Lab Patrice Cárdenas MD HEMATOLOGY ORDERABLE S [facility] [place] [address] * UPPER GI ENDOSCOPY (10/24/2021 11:55 AM EST) UPPER GI ENDOSCOPY [facility] End[facility] Procedure Date: 10/24/2021 11:55 AM ? Patient Name: Linda Fuller ? Date of : 1940 ? Age: 81 ? Order #: [id number] ? Instrument Name: [id number] ? Procedure: ? Upper GI endoscopy Indications: [...] physician, the nurse, the ? anesthesiologist, the supervisor laundry and ? the blood bank laboratory technician in the procedure room. ? Mental [...] Procedure Code(s): ?? --- Professional --- ? 25750, Esophagogastroduod enoscopy, ? flexible, transoral; diagnostic, ? including collection of specimen(s) ? by brushing or washing, when ? performed (separate procedure) CPT copyright 2019 [employer]. All rights reserved. The codes documented in this report are preliminary and upon farmworker rice review may be revised to meet current compliance requirements. Attending Participation: ? I was present and participated during the entire ? procedure, including non-pimentel portions. ? _ Houston Mehta, 10/24/2021 1:36:21 PM Number of Addenda: 0 Note Initiated On: 10/24/2021 11:55 AM PROVATION 10/24/2021 11:5 5 AM EST Patricia Garza HOME ECONOMIST CONSUMER SERVICE GENERAL SURGICAL ORD ERABLES PROVATION * (ABNORMAL) Basic Metabolic Panel (non-fasting) (10/24/2021 4:07 AM EST) Glucose 89 65 - 199 mg/dL [facility] Comment:Diabetes: >=200 mg/d L plus symptoms Blood Urea Nitrogen 19(H) 8 - 18 mg/dL [facility] Creatinine 0.87 0.70 - 1.20 mg/dL [facility] Sodium 141 135 - 145 mmol/L [facility] Potassium 3.5 3.5 - 5.0 mmol/L [facility] Comment: Please note: ??Patients with WBC >100,000 may have falsely elevated Potassium levels. ??For accurate Potassium quantification in these patients send serum separator tube (gold top) for subsequent determinations. ??Contact the Clinical Chemistry Laboratory if there are any questions. Chloride 108(H) 98 - 107 mmol/L [facility] Carbon Dioxide 23 22 - 31 mmol/L [facility] Anion Gap 10 5 - 15 mmol/L [facility] Calcium 8.4(L) 8.5 - 10.5 mg/dL [facility] Est Glomerular Filtration Rate 62 >=60 mL/min/1. 73 m?? [facility] Comment: This patient? s estimated [...] In Lab Patrice Cárdenas MD CHEMISTRY ORDERABLES [facility] [place] [address] * (ABNORMAL) Phosphorus (10/24/2021 4:07 AM EST) Phosphorus 2.4(L) 2.5 - 4.5 mg/dL [facility] Blood 10/24/2021 4:07 AM EST 10/24/2021 4:13 AM EST Narrative Resulting Agency Comment Spec In Lab Patrice Cárdenas MD CHEMISTRY ORDERABLES Performing Organization Address [facility]/ZIP Co de Phone Number [facility] [place] [address] * (ABNORMAL) Magnesium (10/24/2021 4:07 AM EST) Pathologist [facility] Magnesium 0.65(L) 0.69 - 1.07 mmol/L [facility] Blood 10/24/2021 4:07 AM EST 10/24/2021 4:13 AM EST Narrative Resulting Agency Comment Spec In Lab Patrice Cárdenas MD CHEMISTRY ORDERABLES Performing Organization Address City/[facility]/ZIP Co de Phone Number [facility] [place] [address] * (ABNORMAL) Hemogram (10/24/2021 4:07 AM EST) Pathologist [facility] White Blood Cell 5.5 4.0 - 9.5 x10(3)/mc L [facility] Red Blood Cell 3.70(L) 4.00 - 5.21 x10(6)/mc L [facility] Hemoglobin 11.6(L) 11.7 - 15.5 g/dL [facility] Hematocrit 35.3(L) 35.7 - 45.8 % [facility] Mean Cell Volume 95.4(H) 82.6 - 94.4 fL [facility] Mean Cell Hemoglobin 31.4 27.1 - 32.0 pg [facility] Mean Cell Hemoglobin Concentration 32.9 31.7 - 35.0 g/dL [facility] Platelet 243 145 - 357 x10(3)/mc L [facility] RDW Standard Deviation 46.9(H) 37.0 - 46.0 fL [facility] RDW coefficient of variation 13.2 11.5 - 14.1 % [facility] Mean Platelet Volume 9.8 7.6 - 12.9 fL [facility] NRBC% auto 0.0 % [facility] NRBC Absolute 0.000 0.000 - 0.000 x10(3)/mc L [facility] Blood 10/24/2021 4:07 AM EST 10/24/2021 4:13 AM EST Narrative Resulting Agency Comment Spec In Lab Patrice Cárdenas MD HEMATOLOGY ORDERABLE S Performing Organization Address City/State/[facility] Co de Phone Number [facility] [place] [address] * COVID-19 PCR (10/23/2021 3:52 PM EST) SARS-CoV-2 RNA (Rapid) Not Detected Not Detected [facility] Comment: This result should be [...] using the Simplexa COVID-19 Direct Assay by Exegy as authorized by the FDA issued Emergency [...] Department of Pathology and Laboratory Medicine at [facility], certified under the Clinical Laboratory Improvement [...] fact sheets at the following FDA website: https://www.fda.gov/medical-devices/jbbgcqguzpd-fyvdtww-4769-kzomn-81-bbguccamp- use-a lykxangeabvjc-vejxxnc-xbahhwi/kntol-hjwnupvbotq-wznl SARS-CoV-2 Source TOOL GRINDING MACHINE OPERATOR Swab [facility] Nasopharyngeal Swab 10/23/20 3:52 PM EST 10/23/2021 4:32 PM EST Comment:Symptoms->Surveillan ce Narrative Resulting Agency Comment Spec In Lab Fiona Malave MD MICROBIOLOGY - GENER AL ORDERABLES [facility] [place] [address] * Type and Screen Validity (10/23/2021 1:20 PM EST) T&S only valid at [facility] Comment:This Type and Screen result is only valid at the [facility] Blood 10/23/2021 1:20 PM EST 10/23/2021 1:37 PM EST Narrative Resulting Agency Comment Spec In Lab Sanjay [facility] ORDER VINICIUS [facility] [place] [address] * ABORH Recheck Status (10/23/2021 1:20 PM EST) ABORH Recheck Order Order Placed [facility] ABORH Type Recheck Complete [facility] Blood 10/23/2021 1:20 PM EST 10/23/2021 1:37 PM EST Narrative Resulting Agency Comment Spec In Lab Sanjay [facility] ORDER VINICIUS Performing Organization Address City/[facility]/ZIP Co de Phone Number [facility] [place] [address] * Differential, Automated (10/23/2021 1:20 PM EST) Neutrophil % 67.6 % [facility] Neutrophil Absolute 4.62 1.70 - 6.10 x10(3)/[facility] Lymph % 18.6 % [facility] Lymphocytes Abs 1.3 0.9 - 3.2 x10(3)/[facility] Monocyte % 9.7 % [facility] Monocyte Abs 0.7 0.3 - 0.9 x10(3)/[facility] Eos % 2.6 % [facility] Eosinophils Abs 0.2 0.0 - 0.4 x10(3)/[facility] Basophil % 0.9 % [facility] Baso Absolute 0.1 0.0 - 0.1 x10(3)/[facility] Immature Gran % 0.60 % [facility] Comment: Immature granulocytes(IG's)percentage and absolute count will include metamyelocytes, myelocytes, and promyelocytes. Blood smears from CBCs yielding IG's will be scanned manually for concordance. If this scan disagrees with the automated IG or if promyelocytes are noted, a manual differential will be performed. Immature Gran Absolute 0.04 0.00 - 0.04 x10(3)/mcL [facility] Blood 10/23/2021 1:20 PM EST 10/23/2021 1:37 PM EST Narrative Resulting Agency Comment Spec In Lab Sanjay GALVAN HEMATOLOGY ORDERABLE S [facility] [place] [address] * (ABNORMAL) Hemogram (10/23/2021 1:20 PM EST) White Blood Cell 6.8 4.0 - 9.5 x10(3)/mc L [facility] Red Blood Cell 3.80(L) 4.00 - 5.21 x10(6)/mc L [facility] Hemoglobin 12.0 11.7 - 15.5 g/dL [facility] Hematocrit 35.6(L) 35.7 - 45.8 % [facility] Mean Cell Volume 93.7 82.6 - 94.4 fL [facility] Mean Cell Hemoglobin 31.6 27.1 - 32.0 pg [facility] Mean Cell Hemoglobin Concentration 33.7 31.7 - 35.0 g/dL [facility] Platelet 278 145 - 357 x10(3)/mc L [facility] RDW Standard Deviation 46.2(H) 37.0 - 46.0 fL [facility] RDW coefficient of variation 13.3 11.5 - 14.1 % [facility] Mean Platelet Volume 9.9 7.6 - 12.9 fL [facility] NRBC% auto 0.0 % [facility] NRBC Absolute 0.000 0.000 - 0.000 x10(3)/mc L [facility] Blood 10/23/2021 1:20 PM EST 10/23/2021 1:37 PM EST Narrative Resulting Agency Comment Spec In Lab Sanjay Parks MANDY HEMATOLOGY ORDERABLE S Performing Organization Address [facility] Co de Phone Number [facility] [place] [address] * Antibody screen (10/23/2021 1:20 PM EST) Ab Screen Interp Negative [facility] Expires at [id number] on: 10/26/2021 [facility] Blood 10/23/2021 1:20 PM EST 10/23/2021 1:37 PM EST Narrative Resulting Agency Comment Spec In Lab Sanjay Parks [facility] ORDER VINICIUS Performing Organization Address City/[facility]/ZIP Co de Phone Number [facility] [place] [address] * ABO/Rh Typing (10/23/2021 1:20 PM EST) ABORH Type A Pos [facility] Blood 10/23/2021 1:20 PM EST 10/23/2021 1:37 PM EST Narrative Resulting Agency Comment Spec In Lab Sanjay [facility] ORDER VINICIUS Performing Organization Address [facility] Co de Phone Number [facility] [place] [address] * APTT (10/23/2021 1:20 PM EST) Partial Thromboplastin Time 29 25 - 37 sec [facility] Comment: The PTT is NOT appropriate for heparin monitoring. Use the Anti-Xa level for heparin monitoring (HEP UFH) or LMWH monitoring (HEP LMW). A PTT less than 37 seconds generally indicates adequate hemostasis. Blood 10/23/2021 1:20 PM EST 10/23/2021 1:37 PM EST Narrative Resulting Agency Comment Spec In Lab Fiona Malave MD HEMATOLOGY ORDERABLE S Performing Organization Address [facility] de Phone Number [facility] [place] [address] * (ABNORMAL) Prothrombin Time (10/23/2021 1:20 PM EST) Prothrombin Time 16.3(H) 9.4 - 12.5 sec [facility] International Normalization Ratio 1.4 [facility] Comment: An INR <2.0 indicates [...] MD HEMATOLOGY ORDERABLE S Performing Organization Address [facility] de Phone Number [facility] [place] [address] * Troponin (10/23/2021 1:20 PM EST) Troponin-T <0.01 0.00 - 0.00 ng/mL [facility] Comment: The 99th percentile for Troponin T is less than 0.01 ng/mL, any detectable cTnT concentration using this assay should be considered elevated. According to the third universal definition of myocardial infarction the following criteria with a clinical presentation consistent with acute myocardial ischemia meets the diagnosis for a myocardial infarction ([place]). Detection of a rise and/or fall of cTnT, with at least one value greater than the 99th percentile (> or = 0.01) and with at least one of the following ?? Symptoms of ischemia ?? New or presumed new significant MF-nelffis-F wave (ST-T) changes or new left bundle [...] additional sample may be indicated. Reference: Third Glade Definition of Myocardial Infarction. Journal of the [place] [employer] 2012;60:1581-98 Blood 10/23/2021 1:20 PM EST 10/23/2021 1:37 PM EST Narrative Resulting Agency Comment Spec In Lab Fiona Malave MD CHEMISTRY ORDERABLES [facility] [place] [address] * (ABNORMAL) Comprehensive metabolic panel (non-fasting) (10/23/2021 1:20 PM EST) Glucose 141 65 - 199 mg/dL [facility] Comment:Diabetes: >=200 mg/d L plus symptoms Blood Urea Nitrogen 25(H) 8 - 18 mg/dL [facility] Creatinine 1.10 0.70 - 1.20 mg/dL [facility] Sodium 141 135 - 145 mmol/L [facility] Potassium 3.3(L) 3.5 - 5.0 mmol/L [facility] Comment: Please note: ??Patients with WBC >100,000 may have falsely elevated Potassium levels. ??For accurate Potassium quantification in these patients send serum separator tube (gold top) for subsequent determinations. ??Contact the Clinical Chemistry Laboratory if there are any questions. Chloride 103 98 - 107 mmol/L [facility] Carbon Dioxide 26 22 - 31 mmol/L [facility] Anion Gap 12 5 - 15 mmol/L [facility] Calcium 9.0 8.5 - 10.5 mg/dL [facility] Protein, Total 5.9(L) 6.1 - 8.0 g/dL [facility] Albumin 3.9 3.2 - 5.2 g/dL [facility] Aspartate Aminotransferase 11 0 - 30 unit/L [facility] Alanine Aminotransferase 11 0 - 30 unit/L [facility] Alkaline Phosphatase 59 35 - 105 unit/L [facility] Bilirubin, Total <0.2(L) 0.2 - 1.3 mg/dL [facility] Est Glomerular Filtration Rate 47(L) >=60 mL/min/1. 73 m?? [facility] Comment: This patient? s estimated [...] Malave MD CHEMISTRY ORDERABLES Performing Organization Address City/State/[facility] Co de Phone Number [facility] [place] [address] * EKG 12 Lead (10/23/2021 1:14 PM EST) Ventricular rate 61 BPM MUSE SYSTEM Atrial Rate 61 BPM MUSE SYSTEM P-R Interval 210 ms MUSE SYSTEM QRS Duration 90 ms MUSE SYSTEM Q-T Interval 488 ms MUSE SYSTEM QTC Calculated (Bezet) 491 ms MUSE SYSTEM Calculated P [place] 96 degrees MUSE SYSTEM Calculated R [place] 27 degrees MUSE SYSTEM Calculated T [place] 51 degrees MUSE SYSTEM INTERPRETATION Sinus rhythm with 1st degree A-V block Prolonged QT Abnormal ECG When compared with ECG of 17-AUG-2021 07:42, Sinus rhythm has replaced Atrial fibrillation Vent. rate has decreased BY ??70 BPM Nonspecific T wave abnormality no longer evident in Inferior leads Nonspecific T wave abnormality no longer evident in Lateral leads Confirmed by MD Cook Danette ([id number]) on 10/24/2021 3:32:33 PM MUSE SYSTEM 10/23/2021 [...] 0837 (Given - Provider: Pauline Vickers RN)1230 ([facility] Hold - Provider: Admin Adt - Reason: Transfer to a Procedural area)1508 ([facility] Unhold - Provider: Admin Adt)2010 (Given - Provider: Silverio Claire RN) 0940 (Given - Provider: Prabha Stephens, PAULETTE) Continuous Medication Order 10/23/2021 10/24/2021 10/25/2021 lactated ringers infusion 75 mL/hr, Intravenous, CONTINUOUS, Starting on Sun10/23/21 at 1623, Until Sun10/25/21 at 1808 1841 (New Bag - Provider: Sandi Rebolledo RN) 0653 (New Bag - Provider: Maria Elena Live RN)1230 ([facility] Hold - Provider: Admin Adt [...] pain medications are indicated. , Routine 1230 ([facility] Hold - Provider: Admin Adt - Reason: Transfer to a Procedural area)1508 ([facility] Unhold - Provider: Admin Adt) barium sulfate (E-Z Disk) tablet 0-700 mg (COMPLETED) 0-700 mg, Oral, ONCE PRN, 1 dose, Starting on Sun10/25/21 at 0916, Until Sun10/25/21 at 0916, Per Protocol, Radiology Contrast, Routine 915 (Given - Provid er: Mario Francisco - Comment: [id number]:10/2021) barium sulfate (E-Z-HD) 98% oral liquid 0-120 mL (COMPLETED) 0-120 mL, Oral, ONCE PRN, 1 dose, Starting on Sun10/25/21 at 0916, Until Sun10/25/21 at 0917, Per Protocol, Radiology Contrast, Routine 09 (Given - Provid er: Mario Francisco - Comment: [id number]:08/2024 ) barium sulfate (Ezpaque) 60% (w/v) oral liquid 0-710 mL (COMPLETED) 0-710 mL, Oral, ONCE PRN, 1 dose, Starting on Sun10/25/21 at 0916, Until Sun10/25/21 at 0918, Per Protocol, Radiology Contrast, Routine 09 (Given - Provid er: Mario Francisco - Comment: LOT:[id number]: 12/2022) ipratropium-albuteroL (Duoneb) 0.5 mg-3 mg(2.5 mg base)/3 mL nebulizer solution 3 mL 3 mL, Nebulization, EVERY 4 HOURS PRN, Starting on Sun10/23/21 at 1621, Until Sun10/25/21 at 1808, Wheezing, Routine 1230 ([facility] Hold - Provider: Admin Adt - Reason: Transfer to a Procedural area)1508 ([facility] Unhold - Provider: Admin Adt) lidocaine (Xylocaine) 1% (10 mg/mL) injection 3 mg 3 mg (0.3 mL), Subcutaneous, ONCE PRN, 1 dose, Starting on Sun10/23/21 at 1621, Until Sun10/25/21 at 1808, for discomfort with PIV insertion, Routine 1230 ([facility] Hold - Provider: Admin Adt - Reason: Transfer to a Procedural area)1508 ([facility] Unhold - Provider: Admin Adt) lidocaine (Xylocaine) 1% (10 mg/mL) injection 3 mg 3 mg (0.3 mL), Subcutaneous, ONCE PRN, 1 dose, Starting on Sun10/23/21 at 1644, Until Sun10/25/21 at 1808, for discomfort with PIV insertion, Routine 1230 ([facility] Hold - Provider: Admin Adt - Reason: Transfer to a Procedural area)1508 ([facility] Unhold - Provider: Admin Adt) [...] - Reason: Transfer to a Procedural area)1508 ([facility] Unhold - Provider: Admin Adt) [...] - Reason: Transfer to a Procedural area)1508 ([facility] Unhold - Provider: Admin Adt) documented in this encounter Care Teams 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
--- OUTSIDE RECORDS SUMMARY | 2024-06-07 10:40 | XMS_ITS | Encounter Summary ---
Author Organization [facility] Address [facility] [place] [address] Care Team Providers Care Crib Attendant Name Role Phone Patricia Garza APRN Primary Care Provider [phone] Reason for Visit * Reason Comments Emesis * Auth/Cert Specialty Diagnoses / Procedures Referred By Contac t Referred To Contact Diagnoses Paraesophageal hernia Atrial fibrillation with rapid ventricular response Postoperative vomiting Referral ID Status Reason Start Date Expiration Date Visits Re quested Visits Authorized [id number] 1 1 Encounter Details Date Type Department Care Team (Latest Contact Info) Description 08/17/2021 6:59 AM EDT - 08/19/2021 6:37 PM EDT Hospital Encounter [address] [place] [address] Haylee Oviedo MD [facility] [place] [address] Patrice Cárdenas MD [facility] [place] [address] Postoperative vomiting; Atrial fibrillation with rapid ventricular [...] Hospital Course: Linda Fuller was admitted to [facility] on 08/17/2021via the ED. She was admitted [...] a nurse in the Thoracic Clinic at [phone]. After hours or on weekends or holidays please call: [phone] and ask to speak to the Thoracic Surgeon refrigeration houseman. Exercise & Activity Level: As you recover [...] please call the thoracic surgery clinic at [phone]. Driving: No driving for 1 week or [...] the Thoracic Clinic or the Thoracic Surgeon refrigeration houseman after hours. If you are having pain, [...] Time Provider Department Center 08/30/2021 12:30 PM [facility] DB XRAY ROOM 1 Xray [facility] Rad 08/30/2021 1:00 PM Patrice Cárdenas MD [address] General Instructions None Future Appointments and Orders Future Appointments and Orders Future Appointments Provider Department Dept Phone 08/30/2021 12:30 PM [facility] DB XRAY ROOM 1 XRay at [facility] Arrive at: Industrial Cleaning Technician Area [phone] Please go to Industrial Cleaning Technician Area 3 ([facility]). 08/30/2021 1:00 PM Patrice Cárdenas MD Thoracic Surgery at [facility] Arrive at: Industrial Cleaning Technician Area [phone] Future Orders Complete By Expires Referral to Home Health - at DISCHARGE [UDS7438 CPT(R)] As directed Process Instructions: Scheduling Instructions: Comments: DOCUMENTATION FOR VNA SERVICES (INCLUDING THOSE PATIENTS WITH MEDICARE COVERAGE REQUIRING HOME VNA SERVICES AND/OR HOSPICE SERVICES) PATIENT'S LOCATION: Linda Fuller [address] [facility] [address] [facility] [address] (home) Numerical Control Operator's Name: self/family In discussion with the attending physician, it is certified that this patient is under their care and that they, or a Nurse Practitioner, Clinical Nurse specialist or Physician Supervisor Bottle Machines who is working directly with them, had [...] for managing ADL's. HOME HEALTH CARE AGENCY: [facility] PHONE: [phone] FAX: [phone] Start of care: within 24 to 48 [...] obtained from this patient's PCP: Patricia Garza, HANDY MAN [address] / [facility] [address] All VNA agencies which cover the area of patient's residence have been reviewed, either verbally timothy writing, and patient/family have chosen the home health care agency noted Questions: Agency name and contact information: [facility] Patient location post discharge: home What services are requested: Registered Nurse Physical Therapy Occupational Therapy Start date: Responsible MD post discharge contact info: Surgery and PCP Provider Contact Information: Primary Care Provider: Patricia Garza APRN [phone] Discharge References/Attachments: Discharge References/Attachments None For questions [...] a nurse in the Thoracic Clinic at [phone]. After hours or on weekends or holidays please call: [phone] and ask to speak to the Thoracic [...] please call the thoracic surgery clinic at [phone]. Driving: No driving for 1 week or [...] the Thoracic Clinic or the Thoracic Surgeon refrigeration houseman after hours. If you are having pain, [...] Time Provider Department Center 08/30/2021 12:30 PM [facility] DB XRAY ROOM 1 Xray [facility] Rad 08/30/2021 1:00 PM Patrice Cárdenas MD [address] documented in this encounter Medications at [...] 26.6) performed by Patrice Cárdenas MD at [facility] MAIN OR ??? PRO UPPER GI ENDOSCOPY, DIAGNOSTIC N/A 08/15/2021 EGD, UPPER GI ENDOSCOPY performed by Patrice Cárdenas MD at [facility] MAIN OR Social History: Home Setup: pt lives alone in senior housing apartment complex. 2nd floor apartment with elevator access. Bathroom has a walk-in shower with GB and seat. Standard toilet seat with GB. Daughter is visiting currently but leaving for [place] tomorrow morning Functional Status: pt is independent [...] be an excellent candidate for transition to [facility] in the nearby future. Plan to see [...] of functional outcome. Kori Stevenson OTR/Oleg Pager [phone] Occupational Therapy Rehabilitation Department * Naomy Tate [...] fulls). Thank you, Naomy Tate RD Pager [phone] * Alicia Dorsey PA - 08/19/2021 7:34 AM EDT [facility] Department of Thoracic Surgery Inpatient Progress Note Patient Name: Linda Fuller Patient : 1940 Patient [facility] Attending Surgeon: HAYLEE OVIEDO DAVID J ID: [...] to Hosp-Admission (Current) from 08/17/2021 in 2 [facility] Admission(Discharged) from 08/15/2021 in 4 [facility] Weight 61.7 kg (136 lb) [...] mcL Appearance UA Turbid (A) Clear Spec Reedley UA >=1.030 (A) 1.005 - 1.030 Color UA Garza (A) Yellow Culture Reflexed Yes Urinalysis Microscopic [...] MANDY Castro 08/19/2021 Thoracic Surgery Service Pager [phone] Associated attestation - Patrice Cárdenas MD - [...] Ahn MD - 08/18/2021 2:18 PM EDT [facility] Department of Thoracic Surgery Inpatient Progress Note [...] to Hosp-Admission (Current) from 08/17/2021 in 2 [facility] Admission(Discharged) from 08/15/2021 in 4 [facility] Weight 61.7 kg (136 lb) [...] QTC Calculated (Bezet) 487 ms Calculated R Morgan 24 degrees Calculated T Morgan 140 degrees INTERPRETATION Atrial fibrillation with rapid ventricular response Nonspecific ST and T wave abnormality Abnormal ECG When compared with ECG of 15-AUG-2021 12:17, Atrial fibrillation has replaced Sinus rhythm Vent. rate has increased BY 61 BPM Confirmed by MD Cook Danette ([id number]) on 08/17/2021 4:41:56 PM COVID-19 PCR Specimen: Nasopharyngeal Swab Symptoms->Surveillance Result Value Ref Range SARS-CoV-2 RNA PCR Not Detected Not Detected SARS-CoV-2 Source PLATING FOREMAN Swab Basic Metabolic Panel (non-fasting) Result Value [...] Ahn MD 08/18/2021 Thoracic Surgery Service Pager [phone] * Donya Charlton RD - 08/18/2021 10:41 AM EDT Nutrition Note Provided patient with the following ONS to take with her at discharge: 3 [place] Glucerna LOT#[id number] exp. 29 March 2022 3 Chocolate Glucerna LOT#[id number] exp. 28 April 2022 3 Vanilla Glucerna LOT#[id number] exp. 27 January 2022 1 unopened box of vanilla BIB LOT#[id number] exp. 04 August 2022 Reviewed full liquid diet with patient and how to incorporate these supplements into her diet. Encouraged her to look for coupons online for Ensure products as patient commented that ONS can be pricey. Thank you, Donya Charlton MS, RD Pager [phone] * Ramona Russell, PT - 08/18/2021 9:28 [...] 26.6) performed by Patrice Cárdenas MD at [facility] MAIN OR ??? PRO UPPER GI ENDOSCOPY, DIAGNOSTIC N/A 08/15/2021 EGD, UPPER GI ENDOSCOPY performed by Patrice Cárdenas MD at [facility] MAIN OR Active Non-Hospital Problems Diagnosis ??? 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 Time IN / OUT: [id number] Total Minutes, Physical Therapy: 15 (evaluation, low complexity) Ramona Russell Pager: [phone] Physical Therapy Inpatient Rehabilitation Department * Patito [...] Skin: Psych/Social: Consults: PT [] OT [] VE TEACHER [] Psych [] Action List Monitor/ manage pain. Monitor for nausea/ vomiting. IV flds. Discharge planning Discharge Plan: Home meds in Rx [] Belongings in safe [] Situational Awareness & Contingency Planning Notify MD if pain unrelieved. Nausea / vomiting unrelieved with available medications documented in this encounter H&P Notes * Alicia Dorsey PA - 08/17/2021 8:02 AM EDT [facility] Department of Thoracic Surgery Note [facility] [address] [place], [place] [address] FAX: Patient Name: Linda Fuller Patient : [...] 26.6) performed by Patrice Cárdenas MD at [facility] MAIN OR ??? PRO UPPER GI ENDOSCOPY, DIAGNOSTIC N/A 08/15/2021 EGD, UPPER GI ENDOSCOPY performed by Patrice Cárdenas MD at [facility] MAIN OR Medications: No outpatient medications have [...] Date ED from 08/17/2021 in Emergency Department [facility] Admission (Discharged) from 08/15/2021 in 4 [facility] Weight 61.7 kg (136 lb) [...] PCR Invalid (A) Not Detected SARS-CoV-2 Source PLATING FOREMAN Swab Respiratory Panel PCR Specimen: Nasopharyngeal Swab Symptoms->Surveillance Result Value Ref Range Resp Panel Source PLATING FOREMAN Swab Resp Panel PCR Negative Negative Adenovirus [...] QTC Calculated (Bezet) 490 ms Calculated P Morgan 81 degrees Calculated R Morgan 32 degrees Calculated T Morgan 53 degrees INTERPRETATION Sinus rhythm with Premature [...] liquid diet as tolerated 5. Please page [phone] for questions or concerns. All plans formulated in discussion with and directed by attending thoracic surgeon Dr. Cárdenas. MANDY Castro 08/17/2021 Thoracic Surgery Service Pager [phone] documented in this encounter ED Notes * [...] RN - 08/17/2021 9:45 AM EDT This field underwriter was unable to obtain IV access. IV [...] of 08/17/21 1341 Wed Aug 17, 2021 0742 Thoracics paged [phone] WBC(!): 17.0 Assessment and Plan: Linda Fuller [...] the patient. Lynnette Valerio MD Resident 08/30/21 3481 Associated attestation - Haylee Oviedo MD - [...] distress. D/C summary routed to [facility]. Staff assist via w/c to east entrance [...] Component Value Date COVID19 Detected (A) 09/04/2020 [id number] Invalid (A) 08/15/2021 Past medical History: Past [...] CHILDREN would be surrogate decision maker per [place] surrogate decision making law. (Only good for 180 days) Any patient receiving care at [facility] must abide by [place] law. The hierarchy for surrogate decision making [...] (i) The agent with financial power of criminal defense attorney or a conservator appointed in accordance with [...] and make cards; retired from [employer]. Equipment at home: rollator walker, cane, safety pull cords. Sleeps in a regular bed. Fall history: reports she falls occasionally, last fall was ~ 3 months ago in the bathroom on a rug.. Current DME: cane - straight Home Address (confirmed) [address] [place] [address] [address] [id number] Social & Family Supports: All names listed below confirmed with patient as current and correct Extended Emergency Contact Information Primary Emergency Contact: SANJAY CEBALLOS Address: [address] [place], [place] [address] [place] [address] of Ashley Relation: Child Secondary Emergency Contact: Narcisa Palumbo Address: [address] [place] [address] [facility] Relation: Child Current Care Provided by: [...] likely Other Pertinent/Service Specific Information: [facility] patient at [facility] - SOC was never started with dc on 08/16/2021. Health/Prescription Coverage: Primary Insurance: MEDICARE Payor: MEDICARE / Plan: MEDICARE PART A & B / Product Type: *No Product type* / Secondary Insurance: N/A Prescription Coverage: YES Preferred Pharmacy: No Pharmacies Listed [place] Status: Patient is a : No Primary Care Provider: Patricia Garza, HANDY MAN [phone] Patient/Caregiver Goals of Treatment: Return home with Resumption VNA services Potential Needs for Transition of Care: home health care Agency Referrals: Patient given freedom of choice of area VNAs, chooses to stay with: [facility] PHONE: [phone] FAX: [phone] Expected date of discharge: TBD Referral routed to the Wick Tender for matching with agency/vendor and to provide [...] planningElsy Ellis) PAULETTE Vidal RN/CM - Cellphone: [phone] Pager: [phone] Covering Service RN/CM * ED Triage - [...] 08/18/2021 5:58 AM EDT RAPID COVID-19 PCR ([facility]) STAT 08/17/2021 5:19 PM EDT EKG 12-LEAD [...] Urine 78(H) 0 - 29 mcg/mg Cr [facility] Comment: Reference Ranges: <30 mcg/mg: [...] 2, 357? 362 Albumin, Urine 28.1 mg/L [facility] Creatinine, Urine 36 mg/dL [facility] Urine 08/19/2021 2:00 AM EDT 08/19/2021 2:07 AM EDT Narrative Resulting Agency Comment Spec In Lab Patrice Cárdenas MD URINE ORDERABLES Performing Organization Address City/[facility] Co de Phone Number [facility] [place] [address] * Sodium, urine, random (08/19/2021 2:00 AM EDT) Sodium, Urine 170 mmol/L [facility] Urine 08/19/2021 2:00 AM EDT 08/19/2021 2:07 AM EDT Narrative Resulting Agency Comment Spec In Lab Patrice Cárdenas MD URINE ORDERABLES Performing Organization Address [facility]/ZIP Co de Phone Number [facility] [place] [address] * Creatinine, urine, random (08/19/2021 2:00 AM EDT) Creatinine, Urine 34 mg/dL [facility] Urine 08/19/2021 2:00 AM EDT 08/19/2021 2:07 AM EDT Narrative Resulting Agency Comment Spec In Lab Patrice Cárdenas MD URINE ORDERABLES Performing Organization Address [facility] Co de Phone Number [facility] [place] [address] * Sodium, urine, random (08/19/2021 2:00 AM EDT) Sodium, Urine 168 mmol/L [facility] Urine 08/19/2021 2:00 AM EDT 08/19/2021 2:07 AM EDT Narrative Resulting Agency Comment Spec In Lab Patrice Cárdenas MD URINE ORDERABLES Performing Organization Address [facility] Co de Phone Number [facility] [place] [address] * CK (08/19/2021 1:54 AM EDT) Creatine Kinase 86 0 - 160 unit/L [facility] Blood Venous Draw / Unknown 08/19/2021 1:54 AM EDT 08/19/2021 2:06 AM EDT Narrative Resulting Agency Comment Spec In Lab Gerber Walton MD CHEMISTRY ORDERABLES Performing Organization Address [facility] Co de Phone Number [facility] [place] [address] * (ABNORMAL) Differential, Automated (08/19/2021 1:54 AM EDT) Neutrophil % 65.1 % [facility] Neutrophil Absolute 4.66 1.70 - 6.10 x10(3)/mc L [facility] Lymph % 19.8 % [facility] Lymphocytes Abs 1.4 0.9 - 3.2 x10(3)/mc L [facility] Monocyte % 8.8 % [facility] Monocyte Abs 0.6 0.3 - 0.9 x10(3)/[facility] Eos % 4.2 % [facility] Eosinophils Abs 0.3 0.0 - 0.4 x10(3)/[facility] Basophil % 1.0 % [facility] Baso Absolute 0.1 0.0 - 0.1 x10(3)/[facility] Immature Gran % 1.10 % [facility] Comment: Immature granulocytes(IG's)percentage and absolute count will include metamyelocytes, myelocytes, and promyelocytes. Blood smears from CBCs yielding IG's will be scanned manually for concordance. If this scan disagrees with the automated IG or if promyelocytes are noted, a manual differential will be performed. Immature Gran Absolute 0.08(H) 0.00 - 0.04 x10(3)/[facility] Blood 08/19/2021 1:54 AM EDT 08/19/2021 2:02 AM EDT Narrative Resulting Agency Comment Spec In Lab Ashley Ahn MD HEMATOLOGY ORDERABL ES [facility] [place] [address] * (ABNORMAL) Hemogram (08/19/2021 1:54 AM EDT) White Blood Cell 7.2 4.0 - 9.5 x10(3)/[facility] Red Blood Cell 3.67(L) 4.00 - 5.21 x10(6)/[facility] Hemoglobin 11.2(L) 11.7 - 15.5 g/dL [facility] Hematocrit 34.9(L) 35.7 - 45.8 % [facility] Mean Cell Volume 95.1(H) 82.6 - 94.[address] [facility] Mean Cell Hemoglobin 30.5 27.1 - 32.[address] [facility] Mean Cell Hemoglobin Concentration 32.1 31.7 - 35.0 g/dL [facility] Platelet 256 145 - 357 x10(3)/mc L [facility] RDW Standard Deviation 46.5(H) 37.0 - 46.[address] [facility] RDW coefficient of variation 13.3 11.5 - 14.1 % [facility] Mean Platelet Volume 9.8 7.6 - 12.[address] [facility] NRBC% auto 0.0 % [facility] NRBC Absolute 0.000 0.000 - 0.000 x10(3)/mc L [facility] Blood 08/19/2021 1:54 AM EDT 08/19/2021 2:02 AM EDT Narrative Resulting Agency Comment Spec In Lab Ashley Ahn MD HEMATOLOGY ORDERABL ES Performing Organization Address City/[facility]/ZIP Co de Phone Number [facility] [place] [address] * (ABNORMAL) Phosphorus (08/19/2021 1:54 AM EDT) Phosphorus 2.1(L) 2.5 - 4.5 mg/dL [facility] Blood 08/19/2021 1:54 AM EDT 08/19/2021 2:02 AM EDT Narrative Resulting Agency Comment Spec In Lab Patrice Cárdenas MD CHEMISTRY ORDERABLES Performing Organization Address City/[facility]/ZIP Co de Phone Number [facility] [place] [address] * Magnesium (08/19/2021 1:54 AM EDT) Magnesium 0.79 0.69 - 1.07 mmol/L [facility] Blood 08/19/2021 1:54 AM EDT 08/19/2021 2:02 AM EDT Narrative Resulting Agency Comment Spec In Lab Patrice Cárdenas MD CHEMISTRY ORDERABLES [facility] [place] [address] * (ABNORMAL) Basic Metabolic Panel (non-fasting) (08/19/2021 1:54 AM EDT) Glucose 89 65 - 199 mg/dL [facility] Comment:Diabetes: >=200 mg/d L plus symptoms Blood Urea Nitrogen 20(H) 8 - 18 mg/dL [facility] Creatinine 0.66(L) 0.70 - 1.20 mg/dL [facility] Sodium 139 135 - 145 mmol/L [facility] Potassium 3.6 3.5 - 5.0 mmol/L [facility] Comment: Please note: ??Patients with WBC >100,000 may have falsely elevated Potassium levels. ??For accurate Potassium quantification in these patients send serum separator tube (gold top) for subsequent determinations. ??Contact the Clinical Chemistry Laboratory if there are any questions. Chloride 106 98 - 107 mmol/L [facility] Carbon Dioxide 24 22 - 31 mmol/L [facility] Anion Gap 9 5 - 15 mmol/L [facility] Calcium 7.8(L) 8.5 - 10.5 mg/dL [facility] Est Glomerular Filtration Rate 82 >=60 mL/min/1. 73 m?? [facility] [...] In Lab Patrice Cárdenas MD CHEMISTRY ORDERABLES [facility] [place] [address] * (ABNORMAL) Urine culture (08/18/2021 3:51 PM EDT) Urine Culture Greater than 50,000 cfu/mL Klebsiella oxytoca(A) [facility] Organism Klebsiella oxytoca(A) [facility] Straight Catheter Urine 08/18/2021 3:51 [...] - GE NERAL ORDERABLES Performing Organization Address City/[facility]/ZIP Co de Phone Number [facility] [place] [address] * (ABNORMAL) Urinalysis Microscopic Exam (08/18/2021 3:51 PM EDT) RBC, Urine >100(H) 0 - 4 /HPF [facility] WBC, Urine 51(H) 0 - 5 /HPF [facility] WBC Clumps, Urine Occasiona l(A) None /HPF [facility] Comment:Interpret with cauti on, manual microscopic results are from an unspun specimen Bacteria, Urine Moderate( A) None /HPF [facility] Squamous Epithelial Cells Raw Data, Urine 1 <=4 /HPF [facility] Hyaline Casts, Urine 12(H) 0 - 2 /LPF [facility] Amorphous Crystals, Urine Moderate( A) None /HPF [facility] Comment:Interpret with cauti on, manual microscopic results are from an unspun specimen Straight Catheter Urine 08/18/2021 3:51 PM EDT 08/18/2021 4:29 PM EDT Narrative Resulting Agency Comment Spec In Lab Alicia GALVAN URINE ORDERABLES [facility] [place] [address] * (ABNORMAL) Urinalysis with reflex Culture (08/18/2021 3:51 PM EDT) Glucose, Urine Dipstick Negative Negative mg/dL [facility] Protein, Urine Dipstick 100(A) Negative mg/dL [facility] Bilirubin, Urine Dipstick Moderate(A) Negative mg/dL [facility] Comment: Clinical correlation required for positive Urine Bilirubin results as false positive may occur with some drugs and drug related products. If a false positive is suspected a serum total bilirubin should be considered if clinically indicated. Urobilinogen, Urine Dipstick Normal Normal mg/dL [facility] pH, Urn (dipstick) 5.0 5.0 - 8.0 [facility] Blood, Urine Dipstick Moderate(A) Negative mg/dL [facility] Ketone, Urine Dipstick Negative Negative mg/dL [facility] Nitrite, Urine Dipstick Positive(A) Negative [facility] Leukocytes, Urine Dipstick Moderate(A) Negative [facility] Appearance, Urine Dipstick Turbid(A) Clear [facility] Specific Reed[place] Urine Automated >=1.030(A) 1.005 - 1.030 [facility] Color, Urine Dipstick Garza(A) Yellow [facility] Reflex to Culture Yes [facility] Straight Catheter Urine 08/18/2021 3:51 PM EDT 08/18/2021 4:29 PM EDT Narrative Resulting Agency Comment Spec In Lab Patrice Cárdenas MD URINE ORDERABLES Performing Organization Address [facility] Co de Phone Number [facility] [place] [address] * Hepatic Function Panel (08/18/2021 2:44 PM EDT) Protein, Total 6.1 6.1 - 8.0 g/dL [facility] Albumin 3.5 3.2 - 5.2 g/dL [facility] Aspartate Aminotransferase 23 0 - 30 unit/L [facility] Alanine Aminotransferase 17 0 - 30 unit/L [facility] Alkaline Phosphatase 63 35 - 105 unit/L [facility] Bilirubin, Total 0.5 0.2 - 1.3 mg/dL [facility] Bilirubin, Direct 0.2 0.0 - 0.3 mg/dL [facility] Blood Venous Draw / Unknown 08/18/2021 2:44 PM EDT 08/18/2021 3:21 PM EDT Narrative Resulting Agency Comment Spec In Lab Kristopher Walsh MD CHEMISTRY ORDERABLES Performing Organization Address [facility]/ZIP Co de Phone Number [facility] [place] [address] * Phosphorus (08/18/2021 2:44 PM EDT) [facility] Phosphorus 3.1 2.5 - 4.5 mg/dL [facility] Comment:result rechecked-BC Blood Venous Draw / Unknown 08/18/2021 2:44 PM EDT 08/18/2021 3:21 PM EDT Narrative Resulting Agency Comment Spec In Lab Gerber Walton MD CHEMISTRY ORDERABLES Performing Organization Address City/[facility]/ZIP Co de Phone Number [facility] [place] [address] * Magnesium (08/18/2021 2:44 PM EDT) [facility] Magnesium 1.01 0.69 - 1.07 mmol/L [facility] Blood Venous Draw / Unknown 08/18/2021 2:44 PM EDT 08/18/2021 3:21 PM EDT Narrative Resulting Agency Comment Spec In Lab Gerber Walton MD CHEMISTRY ORDERABLES [facility] [place] [address] * (ABNORMAL) Hemogram (08/18/2021 2:44 PM EDT) [facility] White Blood Cell 9.7(H) 4.0 - 9.5 x10(3)/mc L [facility] Red Blood Cell 4.51 4.00 - 5.21 x10(6)/mc L [facility] Hemoglobin 14.0 11.7 - 15.5 g/dL [facility] Hematocrit 42.0 35.7 - 45.8 % [facility] Mean Cell Volume 93.1 82.6 - 94.[address] [facility] Mean Cell Hemoglobin 31.0 27.1 - 32.[address] [facility] Mean Cell Hemoglobin Concentration 33.3 31.7 - 35.0 g/dL [facility] Platelet 354 145 - 357 x10(3)/mc L [facility] RDW Standard Deviation 45.2 37.0 - 46.[address] [facility] RDW coefficient of variation 13.2 11.5 - 14.1 % [facility] Mean Platelet Volume 9.8 7.6 - 12.[address] [facility] NRBC% auto 0.0 % [facility] NRBC Absolute 0.000 0.000 - 0.000 x10(3)/mc L [facility] Blood 08/18/2021 2:44 PM EDT 08/18/2021 3:11 PM EDT Narrative Resulting Agency Comment Spec In Lab Patrice Cárdenas MD HEMATOLOGY ORDERABLE S Performing Organization Address City/State/[facility] Co de Phone Number [facility] [place] [address] * (ABNORMAL) Basic Metabolic Panel (non-fasting) (08/18/2021 2:44 PM EDT) Glucose 113 65 - 199 mg/dL [facility] Comment:Diabetes: >=200 mg/d L plus symptoms Blood Urea Nitrogen 24(H) 8 - 18 mg/dL [facility] Creatinine 0.87 0.70 - 1.20 mg/dL [facility] Sodium 141 135 - 145 mmol/L [facility] Potassium 3.9 3.5 - 5.0 mmol/L [facility] Comment: Please note: ??Patients with WBC >100,000 may have falsely elevated Potassium levels. ??For accurate Potassium quantification in these patients send serum separator tube (gold top) for subsequent determinations. ??Contact the Clinical Chemistry Laboratory if there are any questions. Chloride 105 98 - 107 mmol/L [facility] Carbon Dioxide 23 22 - 31 mmol/L [facility] Anion Gap 13 5 - 15 mmol/[facility] [...] Cárdenas MD CHEMISTRY ORDERABLES Performing Organization Address [facility] Co de Phone Number [facility] [place] [address] * Lavender Tube HOLD (08/18/2021 5:58 AM EDT) Lavender Hold Sample in lab. [facility] Blood Venous Draw / Unknown 08/18/2021 5:58 AM EDT 08/18/2021 6:02 AM EDT Gerber Walton MD HEMATOLOGY ORDERABLE S Performing Organization Address City/[facility] Co de Phone Number [facility] [place] [address] * (ABNORMAL) Phosphorus (08/18/2021 5:58 AM EDT) Phosphorus 1.2(Critic al) 2.5 - 4.5 mg/dL [facility] Comment: Called by: , Read back by: Patito Yoo , Date/Time:08/18/21 06:52. Blood 08/18/2021 5:58 AM EDT 08/18/2021 6:02 AM EDT Narrative Resulting Agency Comment Spec In Lab Patrice Cárdenas MD CHEMISTRY ORDERABLES Performing Organization Address City/[facility]/ZIP Co de Phone Number [facility] [place] [address] * Magnesium (08/18/2021 5:58 AM EDT) Magnesium 0.75 0.69 - 1.07 mmol/L [facility] Blood 08/18/2021 5:58 AM EDT 08/18/2021 6:02 AM EDT Narrative Resulting Agency Comment Spec In Lab Patrice Cárdenas MD CHEMISTRY ORDERABLES Performing Organization Address [facility] de Phone Number [facility] [place] [address] * (ABNORMAL) Basic Metabolic Panel (non-fasting) (08/18/2021 5:58 AM EDT) Pathologist [facility] Glucose 68 65 - 199 mg/dL [facility] Comment:Diabetes: >=200 mg/d L plus symptoms Blood Urea Nitrogen 23(H) 8 - 18 mg/dL [facility] Creatinine 0.82 0.70 - 1.20 mg/dL [facility] Sodium 142 135 - 145 mmol/[facility] [...] mmol/L [facility] Carbon Dioxide 24 22 - 31 mmol/L [facility] Anion Gap 10 5 - 15 mmol/L [facility] Calcium 7.7(L) 8.5 - 10.5 mg/dL [facility] Est Glomerular Filtration Rate 67 >=60 mL/min/1. 73 m?? [facility] [...] In Lab Patrice Cárdenas MD CHEMISTRY ORDERABLES [facility] [place] [address] * COVID-19 PCR (08/17/2021 5:19 PM EDT) [...] using the Simplexa COVID-19 Direct Assay by [employer] as authorized by the FDA issued Emergency [...] Department of Pathology and Laboratory Medicine at [facility], certified under the Clinical Laboratory Improvement [...] fact sheets at the following FDA website: https://www.fda.gov/medical-devices/pqztpjdlzab-wyqpxid-7932-gojhi-53-defanpcuh- use-a vyukvchulimpe-srzwygw-rubndrn/mjatk-scbkfjmqgco-ower SARS-CoV-2 Source [employer]ATING [employer] Swab DARLEEN COLÓN [facility] Nasopharyngeal Swab 08/17/20 5:19 PM EDT 08/17/2021 5:50 PM EDT Comment:Symptoms->Surveillan ce Narrative Resulting Agency Comment Spec In Lab Haylee Oviedo MD MICROBIOLOGY - GEN ERAL ORDERABLES [facility] [place] [address] * EKG 12 Lead (08/17/2021 7:42 AM EDT) Ventricular rate 131 BPM MUSE SYSTEM QRS Duration 84 ms MUSE SYSTEM Q-T Interval 330 ms MUSE SYSTEM QTC Calculated (Bezet) 487 ms MUSE SYSTEM Calculated R Morgan 24 degrees MUSE SYSTEM Calculated T Morgan 140 degrees MUSE SYSTEM INTERPRETATION Atrial fibrillation with rapid ventricular response Nonspecific ST and T wave abnormality Abnormal ECG When compared with ECG of 15-AUG-2021 12:17, Atrial fibrillation has replaced Sinus rhythm Vent. rate has increased BY ??61 BPM Confirmed by MD Cook Danette ([id number]) on 08/17/2021 4:41:56 PM MUSE SYSTEM 08/17/2021 7:42 AM EDT 08/17/2021 4:41 PM EDT Haylee Oviedo MD ECG ORDERABLES MUSE SYSTEM * (ABNORMAL) Differential, Automated (08/17/2021 7:40 AM EDT) Neutrophil % 88.4 % [facility] Neutrophil Absolute 15.03(H) 1.70 - 6.10 x10(3)/mc L [facility] Lymph % 3.8 % [facility] Lymphocytes Abs 0.6(L) 0.9 - 3.2 x10(3)/mc L [facility] Monocyte % 6.6 % [facility] Monocyte Abs 1.1(H) 0.3 - 0.9 x10(3)/mc L [facility] Eos % 0.0 % [facility] Eosinophils Abs 0.0 0.0 - 0.4 x10(3)/ L [facility] Basophil % 0.3 % [facility] Baso Absolute 0.0 0.0 - 0.1 x10(3)/mc L [facility] Immature Gran % 0.90 % [facility] Comment: Immature granulocytes(IG's)percentage and absolute count will include metamyelocytes, myelocytes, and promyelocytes. Blood smears from CBCs yielding IG's will be scanned manually for concordance. If this scan disagrees with the automated IG or if promyelocytes are noted, a manual differential will be performed. Immature Gran Absolute 0.15(H) 0.00 - 0.04 x10(3)/mc L [facility] Blood 08/17/2021 7:40 AM EDT 08/17/2021 7:51 AM EDT Narrative Resulting Agency Comment Spec In Lab Lynnette Live MD HEMATOLOGY ORDERAB LES [facility] [place] [address] * (ABNORMAL) Hemogram (08/17/2021 7:40 AM EDT) White Blood Cell 17.0(H) 4.0 - 9.5 x10(3)/[facility] Red Blood Cell 4.71 4.00 - 5.21 x10(6)/[facility] Hemoglobin 14.2 11.7 - 15.5 g/dL [facility] Hematocrit 43.0 35.7 - 45.8 % [facility] Mean Cell Volume 91.3 82.6 - 94.[address] [facility] Mean Cell Hemoglobin 30.1 27.1 - 32.[address] [facility] Mean Cell Hemoglobin Concentration 33.0 31.7 - 35.0 g/dL [facility] Platelet 341 145 - 357 x10(3)/[facility] RDW Standard Deviation 44.2 37.0 - 46.0 [facility] RDW coefficient of variation 13.2 11.5 - 14.1 % [facility] Mean Platelet Volume 9.6 7.6 - 12.[address] [facility] NRBC% auto 0.0 % [facility] NRBC Absolute 0.000 0.000 - 0.000 x10(3)/[facility] Blood 08/17/2021 7:40 AM EDT 08/17/2021 7:51 AM EDT Narrative Resulting Agency Comment Spec In Lab Lynnette Live MD HEMATOLOGY ORDERAB LES [facility] [place] [address] * (ABNORMAL) Basic Metabolic Panel (non-fasting) (08/17/2021 7:40 AM EDT) Glucose 114 65 - 199 mg/dL [facility] Comment:Diabetes: >=200 mg/d L plus symptoms Blood Urea Nitrogen 19(H) 8 - 18 mg/dL [facility] Creatinine 0.88 0.70 - 1.20 mg/dL [facility] Sodium 142 135 - 145 mmol/[facility] [...] mmol/L [facility] Carbon Dioxide 22 22 - 31 mmol/L [facility] Anion Gap 16(H) 5 - 15 mmol/L [facility] Calcium 8.3(L) 8.5 - 10.5 mg/dL [facility] Est Glomerular Filtration Rate 61 >=60 mL/min/1. 73 m?? [facility] [...] Lab Haylee Oviedo MD CHEMISTRY ORDERABL ES [facility] [place] [address] documented in this encounter Visit Diagnoses Diagnosis [...] hours 0627 (New Bag - Provider: Nishant Macairo RN)1027 (Stopped - Provider: Nola Daniel RN) [...] Routine documented in this encounter Care Teams Crib Attendant Relationship Specialty Start Date End Date Patricia Garza, LAZARA [address] [place] [address] PCP - General Internal Medicine 04/02/20 documented as of this encounter
--- OUTSIDE RECORDS SUMMARY | 2024-06-07 10:40 | XMS_ITS | Encounter Summary ---
[place] [address] Care Team Providers Care Car Hiker Name Role Phone Patricia Garza APRN Primary Care Provider Reason for Visit * Auth/Cert Specialty Diagnoses / Procedures Referred By Amanuel centeno Referred To Contact Diagnoses Hematemesis Referral ID Status Reason Start Date Expiration Date Visits Re quested Visits Authorized [id number] 1 1 Encounter Details Date Type Department Care Team (Late st Contact Info) Description 10/24/2021 1:08 PM EST Anesthesia [place] [address] Socorro Dobbs MD [facility] DR [place] [address] Anesthesia Record Procedure Summary Procedure Name Responsible [...] cephalic vein (lateral side of arm), left; [id number] catheter system; Anatomical Landmarks; 22 gauge, 1 in length; rmt, integrated marketing specialist-vas; distraction, tolerated well, appears comfortable; 10/25/21; 1338 [...] Procedure Summary Date: 10/24/21 Room / Location: [facility] / [facility] Anesthesia Start: 1308 Anesthesia Stop: 1344 Procedure: EGD, UPPER GI ENDOSCOPY (N/A Trunk) Diagnosis: (hematemesis) Surgeons: Houston Mehta MD Responsible Provider: Socorro Dobbs MD Anesthesia Type: general ASA Status: 3 All Anesthesia Providers: Anesthesiologist: Socorro Dobbs MD TECHNICAL SALES SPECIALIST: Neha Pierce CRNA Vitals Value Taken Time BP 167/75 10/24/21 1430 Temp Pulse 65 10/24/21 1340 Resp 18 10/24/21 1430 SpO2 96 % 10/24/21 1439 Pain Level 0 10/24/21 1430 Vitals shown include unvalidated device data. Patient Location: PACU/[facility] Level of Consciousness: Awake and Alert Pain [...] 26.6) performed by Hal Marroquin MD at [facility] ??? PRO UPPER GI ENDOSCOPY, DIAGNOSTIC N/A 08/15/2021 EGD, UPPER GI ENDOSCOPY performed by Hal Marroquin MD at [facility] Social History Tobacco Use [...] risks discussed with patient. Plan discussed with TECHNICAL SALES SPECIALIST. Anesthesia Screening documented in this encounter Plan [...] mg documented in this encounter Care Teams Car Hiker Relationship Specialty Start Date End Date Patricia Garza, LAZARA [address] [address] PCP - General Internal Medicine 04/02/20 documented as of this encounter
--- OUTSIDE RECORDS SUMMARY | 2024-06-07 10:40 | XMS_ITS | Encounter Summary ---
Author Organization [facility] [place] [place] [address] Care Team Providers Care Boat Driver Name Role Phone Patricia Garza APRN Primary Care Provider Reason for Visit * Reason Comments Follow Up Surgery Encounter Details Date Type Department Care Team (Latest Contact Info) Description 08/30/2021 1:00 PM EDT Office [place] [address] Patrice Cárdenas MD [facility] [place] [address] Paraesophageal hernia Social History Tobacco Use Types [...] Outpatient Follow Up Note Patrice Cárdenas MD [place] [address] FAX: Preoperative diagnosis: Giant paraesophageal hernia ?? [...] as scheduled 7. Call with questions PATRICE CÁREDNAS MD documented in this encounter Plan of Treatment Not on file documented as of this encounter Visit Diagnoses Diagnosis Paraesophageal hernia Diaphragmatic hernia without mention of obstruction or gangrene documented in this encounter Care Teams Boat Driver Relationship Specialty Start Date End Date Patricia Garza, CLINICAL TRIAL MANAGER [address] [place] [address] PCP - General Internal Medicine 04/02/20 documented as of this encounter
--- OUTSIDE RECORDS SUMMARY | 2024-06-07 10:40 | XMS_ITS | Encounter Summary ---
[place] [address] Care Team Providers Care Radiology Scheduler Name Role Phone Patricia Garza APRN Primary Care Provider [phone] Encounter Details Date Type Department Care Team (Latest Contact Info) Description 08/17/2021 [place] [address] Lizzette Mccarty MD Pre-operative cardiovascular examination Social [...] examination documented in this encounter Care Teams Radiology Scheduler Relationship Specialty Start Date End Date Patricia Garza APRN [address] [place] [address] PCP - General Internal Medicine 04/02/20 documented as of this encounter
--- OUTSIDE RECORDS SUMMARY | 2024-06-07 10:40 | XMS_ITS | Encounter Summary ---
Author Organization [facility] [place] [address] Care Team Providers Care Electrical Journeyman Name Role Phone Patricia Garza APRN Primary Care Provider [phone] Encounter Details Date Type Department Care Team (Late st Contact Info) Description 10/22/2021 Telephone [place] [address] Fiona Lomeli MD [facility] [place] [address] Social History Tobacco Use Types Packs/Day Years [...] on filedocumented in this encounter Care Teams Electrical Journeyman Relationship Specialty Start Date End Date Patricia Garza, LIFE SKILLS COACH [address] [place] [address] PCP - General Internal Medicine 04/02/20 documented as of this encounter
--- OUTSIDE RECORDS SUMMARY | 2024-06-07 10:40 | XMS_ITS | Encounter Summary ---
Author Organization [facility] [address] Care Team Providers Care American History Professor Name Role Phone Patricia Garza APRN Primary Care Provider [phone] Reason for Referral * Consultation (Routine) - Closed Specialty Diagnoses / Procedures Referred By Amanuel centeno Referred To Contact Gastroenterology Diagnoses Hematemesis Regurgitation of food Hematemesis Regurgitation of food Jacqueline Paul MD [facility] [place] [address] [facility] [address] [place] [address] Referral ID Status Reason Start Date Expiration Date V isits Requested Visits Authorized [id number] Closed Specialty Service Requested 10/25/2021 10/25/2022 1 1 Reason for Visit * Reason Comments Emesis * Auth/Cert Specialty Diagnoses / Procedures Referred By Amanuel centeno Referred To Contact Diagnoses Hematemesis Referral ID Status Reason Start Date Expiration Date Visits Re quested Visits Authorized [id number] 1 1 Encounter Details Date Type Department Care Team (Late st Contact Info) Description 10/23/2021 11:29 AM EST - 10/25/2021 4:07 PM EST Emergency 4 [place] [address] Patrice Cárdenas MD [facility] [place] [address] Hematemesis (Primary Dx); History of CVA (cerebrovascular [...] Linda Fuller was admitted to [facility] on 10/23/2021via the ED. She was scoped [...] a nurse in the Thoracic Clinic at [phone]. After hours or on weekends orholidays please call: [phone] and ask to speak to the Thoracic Surgeon environmental educator. Diet: You should follow a puree to soft solid diet as tolerated. If you are having trouble eating or keeping food down please call our office. Smoking: If you are a smoker, please avoid smoking. If you are a smoker who needs help quitting, please call the thoracic surgery clinic at [phone]. Follow up appointments: You should follow up [...] the day after the procedure, use an pxeg-uci-gssnedv spray to numb your throat. Sucking on [...] occurs, please contact your Doctor. Please call [phone] before 8pm Mon-Fri with problems, questions or concerns. If you call after 8pm or on weekends, call the Hospital at [phone] and ask to speak to the Treatment Supervisor environmental educator and the set making machine operator will contact that person for you. When should you call for help? Call [phone] anytime you think you may need emergency [...] any problems. Where can you learn more? [facility] View your After Visit Summary and more online at [email or web address] If you would like to provide feedback about your hospital experience, please call the Office of Patient and Family Relations at . If you have received this After Visit Summary in error, please immediately return it in person to the department, or notify the [facility] Privacy Office by calling toll free at between the hours of 8AM and 5PM to arrange for our retrieval of the documents at no cost to you. Content Version: 12.2 ?? 4004-7262 [employer]. Care instructions adapted under license by [facility]. If you have questions about a medical condition or this instruction, always ask your healthcare professional. [employer] disclaims any warranty or liability for your use of this information. Learning About Pureeing Foods What are pureed foods? Puree (say Sharon) is a way to change the texture of solid food so that it is smooth with no lumps and has a texture like pudding. You can puree food in a color blender or food tray assembler. Pureed foods are important if you have [...] smaller pieces, and place them in a color blender or food tray assembler. You may need to add liquid such as juice or broth to get the right thickness. Adding food or liquid slowly into the color blender or food tray assembler will help you get to the right [...] Where can you learn more? Scan the [employer] code or Visit our health information library at [email or web address]/dh/ You can also view health information on [employer], your personal patient account. Log in or sign uptoday. Enter D793 in the search box to learn more about Learning About Pureeing Foods. Current as of: July 06, 2021?Content Version: 13.1 ?? [employer]. Care instructions adapted under license by [facility]. If you have questions about a medical condition or this instruction, always ask your healthcare professional. [employer] disclaims any warranty or liability for your use of this information. Learning About the Diet for Swallowing Problems What are swallowing problems? Difficulty swallowing is also called dysphagia (say neo-XAE-osn-uh). It is most often a sign of [...] one of these types of foods: ? Gyqv-rf-bfas foods. These are foods that are soft [...] Where can you learn more? Scan the [employer] code or Visit our [employer] information library at [email or web address]/dh/ You can also view health information on [employer], your personal patient account. Log in or sign uptoday. Enter R741 in the search box to learn more about Learning About the Diet for Swallowing Problems. Current as of: April 28, 2021?Content Version: 13.1 ?? [facility] [employer]. Care instructions adapted under license by [facility]. If you have questions about a medical condition or this instruction, always ask your healthcare professional. [employer] disclaims any warranty or liability for your use of this information. Provider Contact Information: Primary Care Provider: Patricia Garza APRN [phone] Discharge References/Attachments: Discharge References/Attachments None For questions [...] the day after the procedure, use an jrwu-kyp-zhskpsv spray to numb your throat. Sucking on [...] occurs, please contact your Doctor. Please call [phone] before 8pm Mon-Fri with problems, questions or concerns. If you call after 8pm or on weekends, call the Hospital at [phone] and ask to speak to the Treatment Supervisor environmental educator and the set making machine operator will contact that person for you. When should you call for help? Call [phone] anytime you think you may need emergency [...] any problems. Where can you learn more? [facility] View your After Visit Summary and more online at [email or web address] If you would like to provide feedback about your hospital experience, please call the Office of Patient and Family Relations at . If you have received this After Visit Summary in error, please immediately return it in person to the department, or notify the [facility] Privacy Office by calling toll free at between the hours of 8AM and 5PM to arrange for our retrieval of the documents at no cost to you. Content Version: 12.2 ?? 9318-4287 [employer]. Care instructions adapted under license by [facility]. If you have questions about a medical condition or this instruction, always ask your healthcare professional. [employer] disclaims any warranty or liability for your use of this information. Learning About Pureeing Foods What are pureed foods? Puree (say Sharon) is a way to change the texture of solid food so that it is smooth with no lumps and has a texture like pudding. You can puree food in a color blender or food tray assembler. Pureed foods are important if you have [...] smaller pieces, and place them in a color blender or food tray assembler. You may need to add liquid such as juice or broth to get the right thickness. Adding food or liquid slowly into the color blender or food tray assembler will help you get to the right [...] Where can you learn more? Scan the [employer] or Visit our [employer] information library at https://www.[employer]/Gem/ You can also view health information on [employer], your personal patient account. Log in or sign uptoday. Enter D793 in the search box to learn more about Learning About Pureeing Foods. Current as of: July 06, 2021?Content Version: 13.1 ?? [employer]. Care instructions adapted under license by [facility]. If you have questions about a medical condition or this instruction, always ask your healthcare professional. [employer] disclaims any warranty or liability for your use of this information. Learning About the Diet for Swallowing Problems What are swallowing problems? Difficulty swallowing is also called dysphagia (say cqg-CEC-een-uh). It is most often a sign of [...] one of these types of foods: ? Bjrj-hp-vdpb foods. These are foods that are soft [...] Where can you learn more? Scan the [employer] code or Visit our [employer] information library at [email or web address].[employer]/Gem/ You can also view health information on [employer], your personal patient account. Log in or sign uptoday. Enter R741 in the search box to learn more about Learning About the Diet for Swallowing Problems. Current as of: April 28, 2021?Content Version: 13.1 ?? 4466-5172 [employer]. Care instructions adapted under license by [facility]. If you have questions about a medical condition or this instruction, always ask your healthcare professional. [employer] disclaims any warranty or liability for your use of this information. * Patient Instructions* Jacqueline Paul MD - 10/25/2021 10:14 AM EST Call if you have any questions. During normal business hours, Sunday- Sunday 8:00 a.m.-5:00 p.m., please call to speak to a nurse in the Thoracic Clinic at [phone]. After hours or on weekends orholidays please call: [phone] and ask to speak to the Thoracic Surgeon environmental educator. Diet: You should follow a puree to soft solid diet as tolerated. If you are having trouble eating or keeping food down please call our office. Smoking: If you are a smoker, please avoid smoking. If you are a smoker who needs help quitting, please call the thoracic surgery clinic at [phone]. Follow up appointments: You should follow up [...] completed barium swallow test and evaluation by PULMONARY PHYSICAL THERAPIST. Patient A&O x4. VSS on RA, with [...] Paul MD - 10/24/2021 11:27 AM EST [facility] Department of Thoracic Surgery Progress Note Patient Name: Linda Fuller Patient : 1940 Patient Patient Location: [address] [place] [address] Attending Surgeon: PATRICE CÁRDENAS ID: Linda Fuller [...] 26.6) performed by Patrice Cárdenas MD at [facility] MA[facility] OR ??? PRO UPPER GI ENDOSCOPY, DIAGNOSTIC N/A 08/15/2021 EGD, UPPER GI ENDOSCOPY performed by Patrice Cárdenas MD at [facility] OR Vitals: Temp: [36.5 ??C (97.7 ??F)-36.7 ??C (98.1 ??F)] Heart Rate: [61-64] Resp: [16-22] BP: (118-184)/(45-102) SpO2: [96 %-99 %] Heart Rate from SpO2: [53 bpm-60 bpm] Wt & BMI By Encounter Date ED to Hosp-Admission (Current) from 10/23/[address] [place] [address] Office Visit from 08/30/2021 in Thoracic Surgery at [facility] Weight 58.3 kg (128 lb 9.6 oz) [...] QTC Calculated (Bezet) 491 ms Calculated P [place] 96 degrees Calculated R [place] 27 degrees Calculated T [place] 51 degrees INTERPRETATION Sinus rhythm with 1st [...] Value Ref Range T&S only valid at [facility] Hosp COVID-19 PCR Specimen: Nasopharyngeal Swab Symptoms->Surveillance Result Value Ref Range SARS-CoV-2 RNA PCR Not Detected Not Detected SARS-CoV-2 Source FURNACE BRAZER Swab Hemogram Result Value Ref Range WBC [...] Paul MD 10/24/2021 Thoracic Surgery Service Pager [phone] documented in this encounter H&P Notes * [...] Paul MD - 10/23/2021 4:00 PM EST [facility] Department of Thoracic Surgery H&P Patient Name: [...] 26.6) performed by Patrice Cárdenas MD at [facility] OR ??? PRO UPPER GI ENDOSCOPY, DIAGNOSTIC N/A 08/15/2021 EGD, UPPER GI ENDOSCOPY performed by Patrice Cárdenas MD at [facility] OR Vitals: Temp: [36.6 ??C (97.9 ??F)] Heart Rate: [62-64] Resp: [16-18] BP: (150-171)/(45-78) SpO2: [98 %] Heart Rate from SpO2: -- Wt & BMI By Encounter Date ED from 10/23/[address] [facility] Office Visit from 08/30/2021 in Thoracic Surgery at [facility] Weight 59 kg (130 lb) 1 10/23/2021 [...] QTC Calculated (Bezet) 491 ms Calculated P [place] 96 degrees Calculated R [place] 27 degrees Calculated T [place] 51 degrees INTERPRETATION Sinus rhythm with 1st [...] Value Ref Range T&S only valid at [facility] Hosp Diagnostics: EKG sinus rhythm with first [...] Paul MD 10/23/2021 Thoracic Surgery Service Pager [phone] documented in this encounter ED Notes * [...] Value Ref Range T&S only valid at [facility] Hosp COVID-19 PCR Specimen: Nasopharyngeal Swab Symptoms->Surveillance Result Value Ref Range SARS-CoV-2 RNA PCR Not Detected Not Detected SARS-CoV-2 Source FURNACE BRAZER Swab EKG NSR without overlying ischemia prolonged [...] Notes * Initial Assessments - Shirley Schaefer, PULMONARY PHYSICAL THERAPIST - 10/25/2021 11:41 AM EST Speech Therapy [...] 10/25/21 (results pending, normal per RN report) PULMONARY PHYSICAL THERAPIST consulted for a bedside swallow evaluation. Prior [...] order; OK for a regular diet from PULMONARY PHYSICAL THERAPIST standpoint. Diagnosis: Normal oral manipulation of bolus, [...] ?? Alternate liquids and solids No further PULMONARY PHYSICAL THERAPIST intervention is warranted while hospitalized. Do not anticipate need from PULMONARY PHYSICAL THERAPIST services in discharge location. Plan: Therapy Frequency (PULMONARY PHYSICAL THERAPIST Eval): evaluation only Patient / family are in agreement with treatment plan. Total Minutes (Speech Language Pathology): 20 Thank you for this consult with this patient. Please feel free to page me with any questions or concerns. Shirley Schaefer MS, [facility]-PULMONARY PHYSICAL THERAPIST Pager: [phone] Speech-Language Pathologist Inpatient Rehabilitation Medicine * Care [...] Daughter is visiting currently but leaving for [place] tomorrow morningFunctional Status: pt is independent with [...] Insurance: N/A Prescription Coverage: YES Preferred Pharmacy: [id number] - [place], [address] [address] This plan was formulated with input from patient and team. All are in agreement with plan. Pt admitted as OBSVO. R. (Reji) PAULETTE Vidal RN/CM - Cellphone: [phone] Pager: [phone] Covering Service RN/CM * Initial Assessments - [...] Component Value Date COVID19 Detected (A) 09/04/2020 [id number] Not Detected 10/23/2021 Present on Admission: ??? Hematemesis Hospitalizations Within the Past 30 Days: no previous admission in last 30 days Patient receiving hospital care under Observation status. Admission order reviewed. Primary Insurance on file: MEDICARE Secondary Insurance on file: n/a Primary care provider on file: Patricia Garza APRN [phone] Pharmacy: [id number] - [place], [address] [address] Advance Care Planning: History <no information> -Advanced [...] Daughter is visiting currently but leaving for [place] tomorrow morningFunctional Status: pt is independent with ADLs and most IADLs. She is responsible for all household tasks. She ambulates with a 4WW indoors and cane outdoors. Pt does not drive; uses state provided transportation for appointments and errandsEquipment at home: cane, 4WW, shower seat. Current DME: cane - straight,shower chair (4WW) [address] [facility] [address] Social & Family Supports: Extended Emergency Contact Information Primary Emergency Contact: SANJAY CEBALLOS Address: [address] [place] [address] [place] [address] [facility] Relation: Child Secondary Emergency Contact: Narcisa Palumbo Address: [address] [place] [address] [facility] Mobile Relation: Child Current Care Provided by: [...] via car when medically ready. Registered Nurse Blower Installer / Mathematical Statistician will continue to follow patient???s progress and remain available if situation changes for coordination of care, psychosocial support and/or discharge planning. RN/CM notes: Pt had used [facility] (referral 07/2021). RN/CM called and patient was discharged from all home care services on 10/05 by meeting goals. Office of Care Management Mayela Vidal RN (Jonas) RN/CM - Cellphone: [phone] Pager: [phone] Covering Service RN/CM * Plan of Care [...] M.D. Fellow in Gastroenterology and Hepatology Pager #[phone] 10/23/2021 Associated attestation - Houston Mehta MD [...] documented. Houston Mehta MD Section of Gastroenterology [facility] documented in this encounter Plan of Treatment [...] 7:25 PM EST Upper GI Endoscopy, Diagnostic (09833) 10/24/2021 1:09 PM EST hematemesis UPPER GI [...] who have questions please contact the health care program director that requested your imaging first. ? [...] and chest abdomen pelvis CT 01/10/2020 FINDINGS: Director Physical imaging: Cholecystectomy clips project over the RIGHT [...] 04/26/2021, and chest abdomen pelvisCT 01/10/2020 FINDINGS: Director Physical imaging: Cholecystectomy clips project over the RIGHT [...] patients who have questions please contactthe health care program director that requested your imaging first. Patrice Cárdenas MD IMG FLUORO ORDERABLE S * (ABNORMAL) Basic Metabolic Panel (non-fasting) (10/25/2021 5:45 AM EST) Glucose 87 65 - 199 mg/dL [facility] Comment:Diabetes: >=200 mg/d L plus symptoms Blood Urea Nitrogen 10 8 - 18 mg/dL [facility] Creatinine 0.68(L) 0.70 - 1.20 mg/dL [facility] Sodium 139 135 - 145 mmol/L [facility] Potassium 3.3(L) 3.5 - 5.0 mmol/L [facility] Comment: Please note: ??Patients with WBC >100,000 may have falsely elevated Potassium levels. ??For accurate Potassium quantification in these patients send serum separator tube (gold top) for subsequent determinations. ??Contact the Clinical Chemistry Laboratory if there are any questions. Chloride 104 98 - 107 mmol/L [facility] Carbon Dioxide 23 22 - 31 mmol/L [facility] Anion Gap 12 5 - 15 mmol/L [facility] Calcium 8.5 8.5 - 10.5 mg/dL [facility] Est Glomerular Filtration Rate 81 >=60 mL/min/1. 73 m?? [facility] Comment: This patient? s estimated glomerular [...] Cárdenas MD CHEMISTRY ORDERABLES Performing Organization Address City/[facility]/ZIP Co de Phone Number [facility] [place] [address] * (ABNORMAL) Phosphorus (10/25/2021 5:45 AM EST) Phosphorus 2.1(L) 2.5 - 4.5 mg/dL [facility] Blood 10/25/2021 5:45 AM EST 10/25/2021 5:59 AM EST Narrative Resulting Agency Comment Spec In Lab Patrice Cárdenas MD CHEMISTRY ORDERABLES Performing Organization Address [facility]/[place] Co de Phone Number [facility] [place] [address] * Magnesium (10/25/2021 5:45 AM EST) Magnesium 0.87 0.69 - 1.07 mmol/L [facility] Blood 10/25/2021 5:45 AM EST 10/25/2021 5:59 AM EST Narrative Resulting Agency Comment Spec In Lab Patrice Cárdenas MD CHEMISTRY ORDERABLES Performing Organization Address City/[facility]/[place] Co de Phone Number [facility] [place] [address] * Hemogram (10/25/2021 5:45 AM EST) White Blood Cell 6.4 4.0 - 9.5 x10(3)/[facility] Red Blood Cell 4.26 4.00 - 5.21 x10(6)/[facility] Hemoglobin 12.9 11.7 - 15.5 g/dL [facility] Hematocrit 39.7 35.7 - 45.8 % [facility] Mean Cell Volume 93.2 82.6 - 94.4 fL [facility] Mean Cell Hemoglobin 30.3 27.1 - 32.0 pg [facility] Mean Cell Hemoglobin Concentration 32.5 31.7 - 35.0 g/dL [facility] Platelet 281 145 - 357 x10(3)/[facility] RDW Standard Deviation 44.8 37.0 - 46.0 [facility] RDW coefficient of variation 13.1 11.5 - 14.1 % [facility] Mean Platelet Volume 9.8 7.6 - 12.9 [facility] NRBC% auto 0.0 % [facility] NRBC Absolute 0.000 0.000 - 0.000 x10(3)/[facility] Blood 10/25/2021 5:45 AM EST 10/25/2021 5:59 AM EST Narrative Resulting Agency Comment Spec In Lab Patrice Cárdenas MD HEMATOLOGY ORDERABLE S Performing Organization Address City/[facility]/ZIP Co de Phone Number [facility] [place] [address] * Green Tube HOLD (10/24/2021 7:25 PM EST) Pathologist [facility] Green Hold Sample in lab. [facility] Blood Venous Draw / Unknown 10/24/2021 7:25 PM EST 10/24/2021 7:32 PM EST Jacqueline Paul MD CHEMISTRY ORDERABLES [facility] [place] [address] * (ABNORMAL) Hemogram (10/24/2021 7:25 PM EST) Pathologist [facility] White Blood Cell 5.6 4.0 - 9.5 x10(3)/mc L [facility] Red Blood Cell 3.90(L) 4.00 - 5.21 x10(6)/mc L [facility] Hemoglobin 12.3 11.7 - 15.5 g/dL [facility] Hematocrit 36.6 35.7 - 45.8 % [facility] Mean Cell Volume 93.8 82.6 - 94.4 [facility] Mean Cell Hemoglobin 31.5 27.1 - 32.0 pg [facility] Mean Cell Hemoglobin Concentration 33.6 31.7 - 35.0 g/dL [facility] Platelet 261 145 - 357 x10(3)/mc L [facility] RDW Standard Deviation 45.0 37.0 - 46.0 fL [facility] RDW coefficient of variation 13.2 11.5 - 14.1 % [facility] Mean Platelet Volume 9.8 7.6 - 12.9 fL [facility] NRBC% auto 0.0 % [facility] NRBC Absolute 0.000 0.000 - 0.000 x10(3)/[facility] Blood 10/24/2021 7:25 PM EST 10/24/2021 7:31 PM EST Narrative Resulting Agency Comment Spec In Lab Patrice Cárdenas MD HEMATOLOGY ORDERABLE S [facility] [place] [address] * UPPER GI ENDOSCOPY (10/24/2021 11:55 AM EST) UPPER GI ENDOSCOPY [facility] Procedure Date: 10/24/2021 11:55 AM ? Patient Name: Linda Fuller ? Date of : 1940 ? Age: 81 ? Order #: [id number] ? Instrument Name: [id number] ? Procedure: ? Upper GI endoscopy Indications: [...] physician, the nurse, the ? anesthesiologist, the pulmonary function technologist and ? the electronic calibration technician in the procedure room. ? Mental [...] Procedure Code(s): ?? --- Professional --- ? 57534, Esophagogastroduod enoscopy, ? flexible, transoral; diagnostic, ? including collection of specimen(s) ? by brushing or washing, when ? performed (separate procedure) CPT copyright 2019 [employer]. All rights reserved. The codes documented in this report are preliminary and upon senior mobile solutions architect review may be revised to meet current [...] EST) Glucose 89 65 - 199 mg/dL [facility] Comment:Diabetes: >=200 mg/d L plus symptoms Blood Urea Nitrogen 19(H) 8 - 18 mg/dL [facility] Creatinine 0.87 0.70 - 1.20 mg/dL [facility] Sodium 141 135 - 145 mmol/L [facility] Potassium 3.5 3.5 - 5.0 mmol/L [facility] Comment: Please note: ??Patients with WBC >100,000 may have falsely elevated Potassium levels. ??For accurate Potassium quantification in these patients send serum separator tube (gold top) for subsequent determinations. ??Contact the Clinical Chemistry Laboratory if there are any questions. Chloride 108(H) 98 - 107 mmol/L [facility] Carbon Dioxide 23 22 - 31 mmol/L [facility] Anion Gap 10 5 - 15 mmol/L [facility] Calcium 8.4(L) 8.5 - 10.5 mg/dL [facility] Est Glomerular Filtration Rate 62 >=60 mL/min/1. 73 m?? [facility] Comment: This patient? s estimated glomerular [...] ORDERABLES Performing Organization Address [facility] Co de Phone Number [facility] [place] [address] * (ABNORMAL) Phosphorus (10/24/2021 4:07 AM EST) Phosphorus 2.4(L) 2.5 - 4.5 mg/dL [facility] Blood 10/24/2021 4:07 AM EST 10/24/2021 4:13 AM EST Narrative Resulting Agency Comment Spec In Lab Patrice Cárdenas MD CHEMISTRY ORDERABLES Performing Organization Address [facility] Co de Phone Number [facility] [place] [address] * (ABNORMAL) Magnesium (10/24/2021 4:07 AM EST) Magnesium 0.65(L) 0.69 - 1.07 mmol/L [facility] Blood 10/24/2021 4:07 AM EST 10/24/2021 4:13 AM EST Narrative Resulting Agency Comment Spec In Lab Patrice Cárdenas MD CHEMISTRY ORDERABLES Performing Organization Address [facility] Co de Phone Number [facility] [place] [address] * (ABNORMAL) Hemogram (10/24/2021 4:07 AM EST) Pathologist [facility] White Blood Cell 5.5 4.0 - 9.5 x10(3)/mc L [facility] Red Blood Cell 3.70(L) 4.00 - 5.21 x10(6)/mc L [facility] Hemoglobin 11.6(L) 11.7 - 15.5 g/dL [facility] Hematocrit 35.3(L) 35.7 - 45.8 % [facility] Mean Cell Volume 95.4(H) 82.6 - 94.4 fL [facility] Mean Cell Hemoglobin 31.4 27.1 - 32.0 pg [facility] Mean Cell Hemoglobin Concentration 32.9 31.7 - 35.0 g/dL [facility] Platelet 243 145 - 357 x10(3)/[facility] RDW Standard Deviation 46.9(H) 37.0 - 46.0 [facility] RDW coefficient of variation 13.2 11.5 - 14.1 % [facility] Mean Platelet Volume 9.8 7.6 - 12.9 fL [facility] NRBC% auto 0.0 % [facility] NRBC Absolute 0.000 0.000 - 0.000 x10(3)/[facility] Blood 10/24/2021 4:07 AM EST 10/24/2021 4:13 AM EST Narrative Resulting Agency Comment Spec In Lab Patrice Cárdenas MD HEMATOLOGY ORDERABLE S [facility] [place] [address] * COVID-19 PCR (10/23/2021 3:52 PM EST) [facility] SARS-CoV-2 RNA (Rapid) Not Detected Not Detected [place] using the Simplexa COVID-19 Direct Assay by M/A-COM as authorized by the FDA issued Emergency [...] Department of Pathology and Laboratory Medicine at [facility], certified under the Clinical Laboratory Improvement [...] fact sheets at the following FDA website: https://www.fda.gov/medical-devices/dhutmlbrxki-ibsrrkw-6422-lbyek-43-fzwqujuok- use-a rurjdqyyxzect-nmnokbh-fuzhsut/xzgix-tdsrsbbrmzz-hkii SARS-CoV-2 Source FURNACE BRAZER Swab MA RY [facility] Nasopharyngeal Swab 10/23/20 3:52 PM EST 10/23/2021 4:32 PM EST Comment:Symptoms->Surveillan ce Narrative Resulting Agency Comment Spec In Lab Fiona Malave MD MICROBIOLOGY - GENER AL ORDERABLES [facility] [place] [address] * Type and Screen Validity (10/23/2021 1:20 PM EST) Pathologist [facility] T&S only valid at [facility] Comment:This Type and Screen result is only valid at the [facility] Blood 10/23/2021 1:20 PM EST 10/23/2021 1:37 PM EST Narrative Resulting Agency Comment Spec In Lab Sanjay GALVAN BLOOD BANK LAB ORDER VINICIUS Performing Organization Address City/[facility]/ZIP Co de Phone Number [facility] [place] [address] * ABORH Recheck Status (10/23/2021 1:20 PM EST) Pathologist [facility] ABORH Recheck Order Order Placed [facility] ABORH Type Recheck Complete [facility] Blood 10/23/2021 1:20 PM EST 10/23/2021 1:37 PM EST Narrative Resulting Agency Comment Spec In Lab Sanjay Parks PA BLOOD BANK LAB ORDER VINICIUS [facility] [place] [address] * Differential, Automated (10/23/2021 1:20 PM EST) Neutrophil % 67.6 % [facility] Neutrophil Absolute 4.62 1.70 - 6.10 x10(3)/mcL [facility] Lymph % 18.6 % [facility] Lymphocytes Abs 1.3 0.9 - 3.2 x10(3)/[facility] Monocyte % 9.7 % [facility] Monocyte Abs 0.7 0.3 - 0.9 x10(3)/[facility] Eos % 2.6 % [facility] Eosinophils Abs 0.2 0.0 - 0.4 x10(3)/[facility] Basophil % 0.9 % [facility] Baso Absolute 0.1 0.0 - 0.1 x10(3)/[facility] Immature Gran % 0.60 % [facility] Comment: Immature granulocytes(IG's)percentage and absolute count will include metamyelocytes, myelocytes, and promyelocytes. Blood smears from CBCs yielding IG's will be scanned manually for concordance. If this scan disagrees with the automated IG or if promyelocytes are noted, a manual differential will be performed. Immature Gran Absolute 0.04 0.00 - 0.04 x10(3)/[facility] Blood 10/23/2021 1:20 PM EST 10/23/2021 1:37 PM EST Narrative Resulting Agency Comment Spec In Lab Sanjay GALVAN HEMATOLOGY ORDERABLE S [facility] [place] [address] * (ABNORMAL) Hemogram (10/23/2021 1:20 PM EST) White Blood Cell 6.8 4.0 - 9.5 x10(3)/ L [facility] Red Blood Cell 3.80(L) 4.00 - 5.21 x10(6)/ L [facility] Hemoglobin 12.0 11.7 - 15.5 g/dL [facility] Hematocrit 35.6(L) 35.7 - 45.8 % [facility] Mean Cell Volume 93.7 82.6 - 94.4 fL [facility] Mean Cell Hemoglobin 31.6 27.1 - 32.0 pg [facility] Mean Cell Hemoglobin Concentration 33.7 31.7 - 35.0 g/dL [facility] Platelet 278 145 - 357 x10(3)/mc L [facility] RDW Standard Deviation 46.2(H) 37.0 - 46.0 fL [facility] RDW coefficient of variation 13.3 11.5 - 14.1 % [facility] Mean Platelet Volume 9.9 7.6 - 12.9 fL [facility] NRBC% auto 0.0 % [facility] NRBC Absolute 0.000 0.000 - 0.000 x10(3)/mc L [facility] Blood 10/23/2021 1:20 PM EST 10/23/2021 1:37 PM EST Narrative Resulting Agency Comment Spec In Lab Sanjay GALVAN HEMATOLOGY ORDERABLE S [facility] [place] [address] * Antibody screen (10/23/2021 1:20 PM EST) Ab Screen Interp Negative [facility] Expires at [id number] on: 10/26/2021 [facility] Blood 10/23/2021 1:20 PM EST 10/23/2021 1:37 PM EST Narrative Resulting Agency Comment Spec In Lab Sanjay GALVAN BLOOD BANK LAB ORDER VINICIUS [facility] [place] [address] * ABO/Rh Typing (10/23/2021 1:20 PM EST) ABORH Type A Pos [facility] Blood 10/23/2021 1:20 PM EST 10/23/2021 1:37 PM EST Narrative Resulting Agency Comment Spec In Lab Sanjay GALVAN BLOOD BANK LAB ORDER VINICIUS Performing Organization Address City/[facility]/ZIP Co de Phone Number [facility] [place] [address] * APTT (10/23/2021 1:20 PM EST) Partial Thromboplastin Time 29 25 - 37 sec [facility] Comment: The PTT is NOT appropriate for heparin monitoring. Use the Anti-Xa level for heparin monitoring (HEP UFH) or LMWH monitoring (HEP LMW). A PTT less than 37 seconds generally indicates adequate hemostasis. Blood 10/23/2021 1:20 PM EST 10/23/2021 1:37 PM EST Narrative Resulting Agency Comment Spec In Lab Fiona Malave MD HEMATOLOGY ORDERABLE S Performing Organization Address [facility]/[place] Co de Phone Number [facility] [place] [address] * (ABNORMAL) Prothrombin Time (10/23/2021 1:20 PM EST) Prothrombin Time 16.3(H) 9.4 - 12.5 sec [facility] International Normalization Ratio 1.4 [facility] Comment: An INR <2.0 indicates adequate [...] MD HEMATOLOGY ORDERABLE S Performing Organization Address City/[facility]/ZIP Co de Phone Number [facility] [place] [address] * Troponin (10/23/2021 1:20 PM EST) Pathologist [facility] Troponin-T <0.01 0.00 - 0.00 ng/mL [facility] Comment: The 99th percentile for Troponin T is less than 0.01 ng/mL, any detectable cTnT concentration using this assay should be considered elevated. According to the third universal definition of myocardial infarction the following criteria with a clinical presentation consistent with acute myocardial ischemia meets the diagnosis for a myocardial infarction (CA). Detection of a rise and/or fall of cTnT, with at least one value greater than the 99th percentile (> or = 0.01) and with at least one of the following ?? Symptoms of ischemia ?? New or presumed new significant DH-rlcvqvr-B wave (ST-T) changes or new left bundle [...] additional sample may be indicated. Reference: Third [place] Definition of Myocardial Infarction. Journal of the [place] [employer] 2012;60:1581-98 Blood 10/23/2021 1:20 PM EST 10/23/2021 1:37 PM EST Narrative Resulting Agency Comment Spec In Lab Fiona Malave MD CHEMISTRY ORDERABLES [facility] [place] [address] * (ABNORMAL) Comprehensive metabolic panel (non-fasting) (10/23/2021 1:20 PM EST) [facility] Glucose 141 65 - 199 mg/dL [facility] Comment:Diabetes: >=200 mg/d L plus symptoms Blood Urea Nitrogen 25(H) 8 - 18 mg/dL [facility] Creatinine 1.10 0.70 - 1.20 mg/dL [facility] Sodium 141 135 - 145 mmol/L [facility] Potassium 3.3(L) 3.5 - 5.0 mmol/L [facility] Comment: Please note: ??Patients with WBC >100,000 may have falsely elevated Potassium levels. ??For accurate Potassium quantification in these patients send serum separator tube (gold top) for subsequent determinations. ??Contact the Clinical Chemistry Laboratory if there are any questions. Chloride 103 98 - 107 mmol/L [facility] Carbon Dioxide 26 22 - 31 mmol/L [facility] Anion Gap 12 5 - 15 mmol/L [facility] Calcium 9.0 8.5 - 10.5 mg/dL [facility] Protein, Total 5.9(L) 6.1 - 8.0 g/dL [facility] Albumin 3.9 3.2 - 5.2 g/dL [facility] Aspartate Aminotransferase 11 0 - 30 unit/L [facility] Alanine Aminotransferase 11 0 - 30 unit/L [facility] Alkaline Phosphatase 59 35 - 105 unit/L [facility] Bilirubin, Total <0.2(L) 0.2 - 1.3 mg/dL [facility] Est Glomerular Filtration Rate 47(L) >=60 mL/min/1. 73 m?? [facility] Comment: This patient? s estimated glomerular [...] In Lab Fiona Malave MD CHEMISTRY ORDERABLES [facility] [place] [address] * EKG 12 Lead (10/23/2021 1:14 PM EST) Ventricular rate 61 BPM MUSE SYSTEM Atrial Rate 61 BPM MUSE SYSTEM P-R Interval 210 ms MUSE SYSTEM QRS Duration 90 ms MUSE SYSTEM Q-T Interval 488 ms MUSE SYSTEM QTC Calculated (Bezet) 491 ms MUSE SYSTEM Calculated P [place] 96 degrees MUSE SYSTEM Calculated R [place] 27 degrees MUSE SYSTEM Calculated T [place] 51 degrees MUSE SYSTEM INTERPRETATION Sinus rhythm with 1st degree A-V block Prolonged QT Abnormal ECG When compared with ECG of 17-AUG-2021 07:42, Sinus rhythm has replaced Atrial fibrillation Vent. rate has decreased BY ??70 BPM Nonspecific T wave abnormality no longer evident in Inferior leads Nonspecific T wave abnormality no longer evident in Lateral leads Confirmed by MD Cook Danette ([id number]) on 10/24/2021 3:32:33 PM MUSE SYSTEM 10/23/2021 1:14 PM EST 10/24/2021 3:32 PM EST Fiona Malave MD ECG ORDERABLES Performing Organization Address [facility]/[place] Co de Phone Number MUSE SYSTEM documented [...] Provider: Admin Adt)2010 (Given - Provider: Silverio Cliare RN) 0940 (Given - Provider: Prabha Stephens, [...] - Provid er: Mario Francisco - Comment: LOT:[id number]:10/2021) barium sulfate (E-Z-HD) 98% oral liquid 0-120 mL (COMPLETED) 0-120 mL, Oral, ONCE PRN, 1 dose, Starting on Sun10/25/21 at 0916, Until Sun10/25/21 at 0917, Per Protocol, Radiology Contrast, Routine 0917 (Given - Provid er: Mario Francisco - Comment: LOT:[id number]:08/2024 ) barium sulfate (Ezpaque) 60% (w/v) oral liquid 0-710 mL (COMPLETED) 0-710 mL, Oral, ONCE PRN, 1 dose, Starting on Sun10/25/21 at 0916, Until Sun10/25/21 at 0918, Per Protocol, Radiology Contrast, Routine 0918 (Given - Provid er: Mario Francisco - Comment: [id number]: 12/2022) ipratropium-albuteroL (Duoneb) 0.5 mg-3 mg(2.5 mg base)/3 mL nebulizer solution 3 mL 3 mL, Nebulization, EVERY 4 HOURS PRN, Starting on 10/23/21 at 1621, Until Sun10/25/21 at 1808, Wheezing, Routine 1230 ([facility] Hold - Provider: Admin Adt - Reason: Transfer to a Procedural area)1508 ([facility] Unhold - Provider: Admin Adt) lidocaine (Xylocaine) 1% (10 mg/mL) injection 3 mg 3 mg (0.3 mL), Subcutaneous, ONCE PRN, 1 dose, Starting on 10/23/21 at 1621, Until Tu10/25/21 at 1808, for discomfort with PIV insertion, Routine 1230 ([facility] Hold - Provider: Admin Adt - Reason: Transfer to a Procedural area)1508 ([facility] Unhold - Provider: Admin Adt) lidocaine (Xylocaine) 1% (10 mg/mL) injection 3 mg 3 mg (0.3 mL), Subcutaneous, ONCE PRN, 1 dose, Starting on 10/23/21 at 1644, Until Tu10/25/21 at 1808, for discomfort with PIV insertion, Routine 1230 ([facility] Hold - Provider: Admin Adt - Reason: Transfer to a Procedural area)1508 ([facility] Unhold - Provider: Admin Adt) sodium chloride 0.9 % (flush) (BD PosiFlush Normal Saline 0.9) flush 5-20 mL 5-20 mL, Intravenous, EVERY 1 MIN PRN, Starting on 10/23/21 at 1621, Until Tu10/25/21 at 1808, flush, Flush pertains to all indwelling lines. Flush per protocol found in the job aid using the link provided on this medication record., Routine 1230 ([facility] Hold - Provider: Admin Adt - Reason: Transfer to a Procedural area)1508 ([facility] Unhold - Provider: Admin Adt) sodium chloride 0.9 % (flush) (BD PosiFlush Normal Saline 0.9) flush 5-20 mL 5-20 mL, Intravenous, EVERY 1 MIN PRN, Starting on 10/23/21 at 1644, Until Tu10/25/21 at 1808, flush, Flush pertains to all indwelling lines. Flush per protocol found in the job aid using the link provided on this medication record., Routine 1230 ([facility] Hold - Provider: Admin Adt - Reason: Transfer to a Procedural area)1508 ([facility] Unhold - Provider: Admin Adt) documented in this encounter Care Teams American History Professor Relationship Specialty Start Date End Date Patricia Garza APPLICATION DESIGN ENGINEER [id number] [place] [address] PCP - General Internal Medicine 04/02/20 documented as of this encounter
--- OUTSIDE RECORDS SUMMARY | 2024-06-07 10:40 | XMS_ITS | Encounter Summary ---
Author Organization [facility] [place] [address] Care Team Providers Care Pool Servicer Name Role Phone Patricia Garza APRN Primary Care Provider [phone] Reason for Visit * Auth/Cert Specialty Diagnoses / Procedures Referred By Amanuel t Referred To Contact Diagnoses Paraesophageal hernia Atrial fibrillation with rapid ventricular response Postoperative vomiting Referral ID Status Reason Start Date Expiration Date Visits Re quested Visits Authorized [id number] 1 1 Encounter Details Date Type Department Care Team (Latest Contact Info) Description 08/15/2021 6:08 AM EDT - 08/16/2021 6:27 PM EDT Hospital Encounter [address] [place] [address] Patrice Cárdenas MD [facility] [place] [address] Hiatal hernia Discharge Disposition: Home with VNA [...] EDT Pulse 87 08/16/2021 12:37 PM EDT 52=223 at rest, 106-136 with activity, end post [...] Primary * Ilan Robb PA - Physician Ciso Procedure: Procedure(s): ROBOT XI LAPAROSCOPIC PARAESOPHAGEAL HERNIA [...] to [facility] on 1via the Same Day Program. She [...] questions please contact the health child care provider that requested your imaging first. Pending Studies [...] a nurse in the Thoracic Clinic at [phone]. After hours or on weekends or holidays please call: [phone] and ask to speak to the Thoracic Surgeon stone derrickman and rigger. Exercise & Activity Level: As you recover [...] please call the thoracic surgery clinic at [phone]. Driving: No driving for 1 week or [...] the Thoracic Clinic or the Thoracic Surgeon stone derrickman and rigger after hours. Please take over the counter [...] Time Provider Department Center 08/16/2021 1:30 PM [facility] DX ROOM 8 MH Xray [facility] Rad General Instructions None Future Appointments and Orders Future Orders Complete By Expires XR Chest PA & Lateral (Generic) [[id number] Custom] 08/30/2021 08/16/2022 Process Instructions: Scheduling Instructions: Questions: Where will study be performed?: [facility] Radiology Portable exam?: Reason for exam and clinical history: s/p robotic PEHR Clinical information / pimentel questions: recurrence, PTX, effusion, comparison, changes Stat read required?: Date of injury if applicable: Requested Time: Referral to Home Health - at DISCHARGE [[id number] CPT(R)] As directed Process Instructions: Scheduling Instructions: Comments: DOCUMENTATION FOR VNA SERVICES (INCLUDING THOSE PATIENTS WITH MEDICARE COVERAGE REQUIRING HOME VNA SERVICES AND/OR HOSPICE SERVICES) PATIENT'S LOCATION: Linda Aceves [address] [place] [id number] (home) Part Time Receptionist's Name: self/family In discussion with the attending physician, it is certified that this patient is under their care and that they, or a Nurse Practitioner,Clinical Nurse specialist or Physician Ciso who is working directly with them, had [...] for managing ADL's. HOME HEALTH CARE AGENCY: [facility]. PHONE: [phone] FAX: [phone] Start of care: within 24 to 48 [...] obtained from this patient's PCP: Patricia Garza, MORPHOLOGIST [address] [facility] [address] All VNA agencies which cover the area of patient's residence have been reviewed, either verbally timothy writing, and patient/family have chosen the home health care agency noted Questions: Agency name and contact information: [facility] Patient location post discharge: home What services are requested: Registered Nurse Physical Therapy Occupational Therapy Start date: Responsible MD post discharge contact info: Surgery and PCP Provider Contact Information: Primary Care Provider: Patricia Garza APRN [phone] Discharge References/Attachments: Discharge References/Attachments None For questions [...] a nurse in the Thoracic Clinic at [phone]. After hours or on weekends or holidays please call: [phone] and ask to speak to the Thoracic [...] please call the thoracic surgery clinic at [phone]. Driving: No driving for 1 week or [...] the Thoracic Clinic or the Thoracic Surgeon stone derrickman and rigger after hours. Please take over the counter [...] Time Provider Department Center 08/16/2021 1:30 PM [facility] DX ROOM 8 Xray [facility] Rad documented in this encounter Medications at [...] pt and daughter. Pt seen seen by elevator dispatcher, see note for details. Discharge instructions reviewed [...] referrals are placed. Patient requests referral to: [facility]. PHONE: [phone] FAX: [phone] Expected date of discharge: 08/16/2021 Referral routed to the Life Consultant for matching with agency/vendor and to provide any required information. Mayela Vidal (Jonas), RN RN/CM - Cellphone: [phone] Pager: [phone] Covering Service RN/CM * Donya Charlton RD [...] in the interim. Donya Charlton RD Pager: [phone] * Kwadwo Mosquera, PT - 08/16/2021 12:37 [...] 26.6) performed by Patrice Cárdenas MD at [facility] MAIN OR ??? PRO UPPER GI ENDOSCOPY, DIAGNOSTIC N/A 08/15/2021 EGD, UPPER GI ENDOSCOPY performed by Patrice Cárdenas MD at [facility] MAIN OR Social History: Home set-up: lives alone in a senior housing 2nd floor apt with elevator access. Daughter is going to stay a few days with her on d/c. Bathroom Set-up: walk in shower with grab bar and shower chair. Stairs: none, uses elevator. Baseline Mobility: walks with cane. Does not drive, likes to read and make cards; retired from [employer]. Equipment at home: rollator walker, cane, safety [...] abdominal pain. Vital Signs: Heart Rate: 87 (97=479 at rest, 106-136 with activity, end post rest 106.) BP: 132/84 SpO2: 92 % (91% with some SOB post activity, end 94%. ) O2 Device: None (Room air) Mental Status: alert, oriented to person, place, and time Vision: glasses time clerk, but not here. Skin: small incisions from [...] Physical Therapy: 27 KWADWO MOSQUERA, PT Pager: [phone] Physical Therapy Inpatient Rehabilitation Department * Elsy [...] 26.6) performed by Patrice Cárdenas MD at [facility] MAIN OR ??? PRO UPPER GI ENDOSCOPY, DIAGNOSTIC N/A 08/15/2021 EGD, UPPER GI ENDOSCOPY performed by Patrice Cárdenas MD at [facility] MAIN OR Social History: Patient lives alone [...] due to hearing impairment ?? Safety awareness: [facility] Vision & Perception: ?? corrective lenses time clerk ?? glasses are not at hospital Communication: [...] will complete 2 grooming tasks at modified sekiu standing/seated at the sink. Pt will complete toileting routine at [facility] including transfer to the bathroom, clothing management, and hygiene. Pt will complete UB bathing and dressing in sitting after set up. Pt will complete LB dressing at [facility] using AE as needed. Pt will complete functional transfers and mobility at [facility] for participation in (I)ADLs using self pacing [...] and measurable assessment of functional outcome. Pager: [phone] Elsy Anderson OT 08/16/2021 Occupational Therapy Rehabilitation Department * Rolan Funez RN - 08/15/2021 5:58 PM EDT OUTCOME EVALUATION NOTE: OUTCOME SUMMARY: Linda arrived to [facility] at 1500 from PACU. Pt is A/Ox4 and VSS on 2L NC. Pt oriented to new room, admitted to [facility] and call harris within reach. Pt daughter [...] Ahn MD - 08/15/2021 3:38 PM EDT [facility] Department of Thoracic Surgery Inpatient Post Op Check Note Patient Name: Linda Fuller Patient : [id number] Patient Patient Location: [address] [place] [address] Attending Surgeon: PATRICE CÁRDENAS ID: Linda Fuller [...] Encounter Date Admission (Current) from 08/15/[address] [place] [address] Office Visit from 06/07/2021 in Thoracic Surgery at [facility] Weight 61.8 kg (136 lb 4.8 oz) [...] PCR Invalid (A) Not Detected SARS-CoV-2 Source [employer] Swab Respiratory Panel PCR Specimen: Nasopharyngeal Swab Symptoms->Surveillance Result Value Ref Range Resp Panel Source [employer] Swab Resp Panel PCR Negative Negative Adenovirus [...] Calculated (Bezet) 490 ms Calculated P [place] 81 degrees Calculated R [place] 32 degrees Calculated T [place] 53 degrees INTERPRETATION Sinus rhythm with Premature [...] Ahn MD 08/15/2021 Thoracic Surgery Service Pager [phone] * Mary Perez RN - 08/15/2021 12:19 [...] MANDY Luis 08/15/2021 Thoracic Surgery Service Pager [phone] documented in this encounter Miscellaneous Notes * [...] Operative Note Patient Name: Linda Fuller : [id number] MR#: [id number] Case Date: 08/15/2021 Surgeon: Surgeon(s) and Role: * Patrice Cárdenas MD - Primary * Ilan Robb PA - Physician Ciso Preoperative diagnosis: Giant paraesophageal hernia Postoperative diagnosis: [...] SPECIMEN TO PATHOLOGY Hernia sac OR 11 [id number] Giant paraesophageal hernia Hernia sac excision No [...] dissection was used to identify the fascia. [place]'s were used on the fascia to lifted [...] closed using 0 Vicryl suture in a sxcktg-ln-wnjcj fashion using a Mina Lara needle. Patient was placed supine and the gas was evacuated from the abdominal cavity and the ports were removed. The midline incision was closed with interrupted 0 Vicryl sutures under direct visualization. The wounds were then all irrigated and closed with a 3-0 Vicryl jourdan dermal fashion and Dermabond for the skin. MANDY Clark was my captain assistant during the entire procedure since no [...] 9:48 AM EDT Upper GI Endoscopy, Diagnostic (07065) Yes 08/15/2021 7:35 AM EDT Hiatal hernia MODIFIER ROBOT,DAVINCI XI Yes 08/15/2021 7:35 AM EDT Hiatal hernia Laparoscopy Repair Paraesophageal Hernia Incl Fundoplasty W/O Mesh ([id number]) Yes 08/15/2021 7:35 AM EDT Hiatal hernia RAPID COVID-19 PCR ([facility]/APD/NL) Routine 08/15/2021 7:13 AM EDT RESPIRATORY PANEL [...] questions please contact the health child care provider that requested your imaging first. ? Narrative [...] have questions please contactthe health child care provider that requested your imaging first. Patrice Cárdenas [...] questions please contact the health child care provider that requested your imaging first. ? Narrative 08/16/2021 2:59 PM EDT EXAMINATION: XR FLUORO BARIUM SWALLOW (DOUBLE CONTRAST) CLINICAL HISTORY: s/p PEHR repair - please eval for recurrence TECHNIQUE: Single contrast esophagram was performed using 50 cc Omnipaque 300. Surgery Assistant AP radiograph of the lower chest/upper abdomen was obtained. COMPARISON: Barium swallow 04/26/2021 FINDINGS: Surgery Assistant radiograph demonstrates mild linear atelectasis at the [...] was obtained. COMPARISON: Barium swallow 04/26/2021 FINDINGS: Surgery Assistant radiograph demonstrates mild linear atelectasis at the [...] have questions please contactthe health child care provider that requested your imaging first. Patrice Cárdenas MD IMG FLUORO ORDERABLE S * EKG 12 Lead (08/15/2021 12:17 PM EDT) Ventricular rate 70 BPM MUSE SYSTEM Atrial Rate 70 BPM MUSE SYSTEM P-R Interval 208 ms MUSE SYSTEM QRS Duration 90 ms MUSE SYSTEM Q-T Interval 454 ms MUSE SYSTEM QTC Calculated (Bezet) 490 ms MUSE SYSTEM Calculated P [place] 81 degrees MUSE SYSTEM Calculated R [place] 32 degrees MUSE SYSTEM Calculated T [place] 53 degrees MUSE SYSTEM INTERPRETATION Sinus rhythm [...] Report (08/15/2021 9:48 AM EDT) Final Diagnosis [id number] ? Location: [facility]; [facility]; A The signing pathologist has (i) examined the relevant preparation(s) for the specimen(s) and (ii) rendered or confirmed the diagnosis(es). . ?Surgical Pathology DIAGNOSIS A - Fibromembranous tissue, hernia sac: Gross surgical pathology examination. Electronically signed by: ?Hayley Echavarria MD Verified: ??08/19/2021 20:48 ??Pathologist Performed at: ??-[facility] Dept. of Pathology, [place], [place] SPECIMEN(S) SUBMITTED A - Hernia sac, [...] [facility] [place] [address] * Specimen to Pathology (08/15/2021 9:48 AM EDT) AP Specimen 08/15/2021 9:48 AM EDT 08/15/2021 9:48 AM EDT Narrative [facility] - 08/15/2021 9:48 AM EDT Specimen requisition ordered. ??Separate Pathology report to follow Patrice Cárdenas MD PATHOLOGY/CYTOLOGY O RDERABLES [facility] [place] [address] * Respiratory Panel PCR (08/15/2021 7:13 AM EDT) Respiratory Panel Source [employer] Swab [facility] Respiratory Panel PCR Negative Negative [facility] Comment: Respiratory Panels are performed on the [employer], using multiplexed PCR nucleic acid detection. ??Negative [...] performed using the [employer] Respiratory Panel 2.1 (Ibotta) as authorized by the FDA issued Emergency Use Authorization (EUA). This panel also tests for multiple other viral and bacterial pathogens. This assay is intended for In-vitro Diagnostic (IVD) use with nasopharyngeal swabs in viral transport media. The assay is performed based on the instructions for use and additional guidance provided by the FDA. Testing is performed in laboratories within the [facility], each of which is certified under the [...] fact sheets at the following FDA website: https://www.fda.gov/medical-devices/sztsdqykvgm-xjdfcyt-0530-bzvrl-01-ixinghxym- use-a nddgmeihhsbma-vdjsjzp-pqhfzlr/wtsdl-dehqiztaeds-kpwj Human Metapneumovirus Not Detected Not Detected WHITE [...] [facility] [place] [address] * (ABNORMAL) COVID-19 PCR (08/15/2021 7:13 AM [...] using the Simplexa COVID-19 Direct Assay by [employer] as authorized by the FDA issued Emergency [...] Department of Pathology and Laboratory Medicine at [facility], certified under the Clinical Laboratory Improvement [...] fact sheets at the following FDA website: https://www.fda.gov/medical-devices/veqqkxbxzbm-qwzlnmi-7851-aouvv-12-rmbcnzlvg- use-a qitqhzvkekrks-yiucdpy-ejmwulm/akhmj-cayhcbspxwf-rhjz SARS-CoV-2 Source [employer] Swab [facility] Nasopharyngeal Swab 08/15/20 7:13 AM EDT 08/15/2021 8:19 AM EDT Comment:Symptoms->Surveillan ce Narrative Resulting Agency Comment Spec In Lab Patrice Cárdenas MD MICROBIOLOGY - GENER AL ORDERABLES Performing Organization Address City/[facility]/ZIP Co de Phone Number [facility] [place] [address] * POCT Glucose (08/15/2021 6:34 AM EDT) Glucose, POC 95 65 - 199 mg/dL [facility] Comment: Supplemental ranges: <140 mg/dL before meals <180 mg/dL all other times of the day Blood 08/15/2021 6:34 AM EDT 08/15/2021 6:34 AM EDT Patrice Cárdenas MD POINT OF CARE TEST O RDERABLES Performing Organization Address City/[facility]/ZIP Co de Phone Number [facility] [place] [address] documented in this encounter Visit Diagnoses Diagnosis [...] subcutaneous injection 5,000 Units 5,000 Units, Subcutaneous, CUSTOMER BUSINESS MANAGER TO O.R., 1 dose, On Sun08/15/21 at [...] 50 mL infusion (COMPLETED) 900 mg, Intravenous, CUSTOMER BUSINESS MANAGER TO O.R., 1 dose, On Sun08/15/21 at [...] refused) 0900 (Not Given - Provider: Angela aPige RN - Reason: NPO)1515 (Given - Provider: Angela Paige RN) fenofibrate micronized (Lofibra) capsule 67 mg 67 mg, Oral, DAILY WITH BREAKFAST, First dose on Sun08/16/21 at 0800, Until Discontinued, Please dissolve in water 0800 (Not Given - Provider: Rolan Funez RN - Reason: NPO) heparin (porcine) (5,000 units/1 mL) subcutaneous injection 5,000 Units (COMPLETED) 5,000 Units, Subcutaneous, CUSTOMER BUSINESS MANAGER TO O.R., 1 dose, On Sun08/15/21 at [...] Provid er: Rosemary Varner - Comment: Apr [id number]) ipratropium (Atrovent) 0.02 % nebulizer solution 0.5 [...] at 1230, Routine 1230 (Given - Provider: Naeden Chan MD) Continuous Medication Order 08/14/2021 08/15/2021 [...] documented as of this encounter Care Teams Pool Servicer Relationship Specialty Start Date End Date Patricia Garza APRN [address] [place] [address] PCP - General Internal Medicine 04/02/20 documented as of this encounter
--- OUTSIDE RECORDS SUMMARY | 2024-06-07 10:40 | XMS_ITS | Encounter Summary ---
[place] [address] Care Team Providers Care Cutter Finisher Name Role Phone Patricia Garza APRN Primary Care Provider Encounter Details Date Type Department Care Team (Late st Contact Info) Description 08/22/2021 Telephone [place] [id number] Livier Chaney, RN Social History Tobacco Use [...] much. Discussed the new antibiotic which theywill bead picker and start tomorrow. D/C doxycycline. They will call with any issues. documented in this encounter Plan of Treatment Not on file documented as of this encounter Visit Diagnoses Not on filedocumented in this encounter Care Teams Cutter Finisher Relationship Specialty Start Date End Date Patricia Garza APRN [address] [place] [address] PCP - General Internal Medicine 04/02/20 documented as of this encounter
--- OUTSIDE RECORDS SUMMARY | 2024-06-07 10:40 | XMS_ITS | Encounter Summary ---
[place] [address] Care Team Providers Care Laundry Assistant Name Role Phone Patricia Garza APRN Primary Care Provider [phone] Reason for Visit * Reason Comments Medication Refill Encounter Details Date Type Department Care Team (Late st Contact Info) Description 08/30/2021 Refill [place] [address] Hal Marroquin MD [facility] [place] [address] Social History Tobacco Use Types Packs/Day Years [...] on filedocumented in this encounter Care Teams Laundry Assistant Relationship Specialty Start Date End Date Patricia Garza APRN [address] [place] [address] PCP - General Internal Medicine 04/02/20 documented as of this encounter
--- OUTSIDE RECORDS SUMMARY | 2024-06-07 10:40 | XMS_ITS | Encounter Summary ---
Author Organization [facility] Address [facility] [place] [address] Care Team Providers Care Health And Wellness Coordinator Name Role Phone Patricia Garza APRN Primary Care Provider [phone] Encounter Details Date Type Department Care Team (Latest Contact Info) Description 08/30/2021 12:30 PM EDT - 08/30/2021 11:59 PM EDT Hospital Encounter XRay at [address] [place] [id number] Hiatal hernia Discharge Disposition: Home Social History [...] who have questions please contact the health caretaker that requested your imaging first. ? Narrative [...] patients who have questions please contactthe health caretaker that requested your imaging first. Hal Marroquin MD IMG DX ORDERABLES documented in this encounter Visit Diagnoses Diagnosis Hiatal hernia Diaphragmatic hernia without mention of obstruction or gangrene documented in this encounter Care Teams Health And Wellness Coordinator Relationship Specialty Start Date End Date Patricia Garza, LAZARA [address] [facility] [place] [address] PCP - General Internal Medicine 04/02/20 documented as of this encounter
--- OUTSIDE RECORDS SUMMARY | 2024-06-07 10:40 | XMS_ITS | Encounter Summary ---
Author [place] [address] Care Team Providers Care General Production Worker Name Role Phone Patricia Garza APRN Primary Care Provider Encounter Details Date Type Department Care Team (Latest Contact Info) Description 08/17/2021 Transcribe [place] [address] Lizzette Mccarty MD Pre-operative cardiovascular examination (Primary [...] Primary documented in this encounter Care Teams General Production Worker Relationship Specialty Start Date End Date Patricia Garza APRN [address] [place] [address] PCP - General Internal Medicine 04/02/20 documented as of this encounter
--- OUTSIDE RECORDS SUMMARY | 2024-06-07 10:41 | XMS_ITS | Encounter Summary ---
Author Organization [facility] [place] [address] Care Team Providers Care Machine Castings Plasterer Name Role Phone Patricia Garza APRN Primary Care Provider Encounter Details Date Type Department Care Team (Late st Contact Info) Description 06/21/2021 Ancillary Procedure [place] [address] Hal Marroquin MD [facility] [place] [address] Social History Tobacco Use Types Packs/Day Years [...] nuclear medicine (06/21/2021 12:00 AM EDT) Narrative [facility] - 06/23/2021 1:04 PM EDT This exam is auto-finalizing. It's purpose is for storage only. Hal Marroquin MD IM FILM LIBRARY ORD ERABLES [place], [place] documented in this encounter Visit Diagnoses Not on filedocumented in this encounter Care Teams Machine Castings Plasterer Relationship Specialty Start Date End Date Patricia Garza, NET DEVELOPER CONSULTANT [address] [place] [address] PCP - General Internal Medicine 04/02/20 documented as of this encounter
--- OUTSIDE RECORDS SUMMARY | 2024-06-07 10:41 | XMS_ITS | Encounter Summary ---
Author Organization [facility] Address [facility] [place] [address] Care Team Providers Care Senior Hris Analyst Name Role Phone Patricia Garza APRN Primary Care Provider [phone] Reason for Visit * Reason Comments Follow-up Encounter Details Date Type Department Care Team (Late st Contact Info) Description 06/07/2021 2:00 PM EDT Office [place] [id number] Patrice Cárdenas MD [facility] [place] [address] Atrial fibrillation, unspecified type; Hiatal hernia Social [...] and drinking. Your procedure will occur in sales receptionist area 4W. A paraesophageal hernia is when [...] the surgeon to operate in small and jlqe-sx-silkz places in the chest cavity, and to [...] at home before you are discharged : [id number] mg alternate with ibuprofen 200 mg (2-3 [...] Outpatient Follow Up Note Patrice Cárdenas MD [place] [address] FAX: Pre Op Dx: Large paraesophageal hernia [...] Stress test -- she had one at [facility] within the last 2-3 years and [...] EDT) Glucose 96 65 - 199 mg/dL [facility] Comment:Diabetes: >=200 mg/d L plus symptoms Blood Urea Nitrogen 21(H) 8 - 18 mg/dL [facility] Creatinine 1.05 0.70 - 1.20 mg/dL [facility] Sodium 139 135 - 145 mmol/L [facility] Potassium 3.7 3.5 - 5.0 mmol/L [facility] Comment: Please note: ??Patients with WBC >100,000 may have falsely elevated Potassium levels. ??For accurate Potassium quantification in these patients send serum separator tube (gold top) for subsequent determinations. ??Contact the Clinical Chemistry Laboratory if there are any questions. Chloride 104 98 - 107 mmol/L [facility] Carbon Dioxide 28 22 - 31 mmol/L [facility] Anion Gap 7 5 - 15 mmol/L [facility] Calcium 8.8 8.5 - 10.5 mg/dL [facility] Protein, Total 6.4 6.1 - 8.0 g/dL [facility] Albumin 4.0 3.2 - 5.2 g/dL [facility] Aspartate Aminotransferase 9 0 - 30 unit/L [facility] Alanine Aminotransferase 9 0 - 30 unit/L [facility] Alkaline Phosphatase 65 35 - 105 unit/L [facility] Bilirubin, Total 0.2 0.2 - 1.3 mg/dL [facility] Est Glomerular Filtration Rate 49(L) >=60 mL/min/1. 73 m?? [facility] Comment: This patient? s [...] Cárdenas MD CHEMISTRY ORDERABLES Performing Organization Address City/State/[facility] Co de Phone Number [facility] [place] [address] * (ABNORMAL) Differential, Automated (06/07/2021 2:42 PM EDT) Neutrophil % 67.5 % [facility] Neutrophil Absolute 5.30 1.70 - 6.10 x10(3)/mc L [facility] Lymph % 20.2 % [facility] Lymphocytes Abs 1.6 0.9 - 3.2 x10(3)/mc L [facility] Monocyte % 8.4 % [facility] Monocyte Abs 0.7 0.3 - 0.9 x10(3)/[facility] Eos % 2.3 % [facility] Eosinophils Abs 0.2 0.0 - 0.4 x10(3)/[facility] Basophil % 0.8 % [facility] Baso Absolute 0.1 0.0 - 0.1 x10(3)/[facility] Immature Gran % 0.80 % [facility] Comment: Immature granulocytes(IG's)percentage and absolute count will include metamyelocytes, myelocytes, and promyelocytes. Blood smears from CBCs yielding IG's will be scanned manually for concordance. If this scan disagrees with the automated IG or if promyelocytes are noted, a manual differential will be performed. Immature Gran Absolute 0.06(H) 0.00 - 0.04 x10(3)/[facility] Blood 06/07/2021 2:42 PM EDT 06/07/2021 2:47 PM EDT Narrative Resulting Agency Comment Spec In Lab Patrice Cárdenas MD HEMATOLOGY ORDERABLE S [facility] [place] [address] * Hemogram (06/07/2021 2:42 PM EDT) White Blood Cell 7.8 4.0 - 9.5 x10(3)/[facility] Red Blood Cell 4.71 4.00 - 5.21 x10(6)/[facility] Hemoglobin 14.5 11.7 - 15.5 gm/dL [facility] Hematocrit 42.6 35.7 - 45.8 % [facility] Mean Cell Volume 90.4 82.6 - 94.4 fL [facility] Mean Cell Hemoglobin 30.8 27.1 - 32.0 pg [facility] Mean Cell Hemoglobin Concentration 34.0 31.7 - 35.0 gm/dL [facility] Platelet 318 145 - 357 x10(3)/[facility] RDW Standard Deviation 43.6 37.0 - 46.0 fL [facility] RDW coefficient of variation 13.2 11.5 - 14.1 % [facility] Mean Platelet Volume 9.4 7.6 - 12.9 fL [facility] NRBC% auto 0.0 % [facility] NRBC Absolute 0.000 0.000 - 0.000 x10(3)/[facility] Blood 06/07/2021 2:42 PM EDT 06/07/2021 2:47 PM EDT Narrative Resulting Agency Comment Spec In Lab Patrice Cárdenas MD HEMATOLOGY ORDERABLE S [facility] [place] [address] * (ABNORMAL) Comprehensive metabolic panel (non-fasting) (06/07/2021 2:42 PM EDT) Glucose 94 65 - 199 mg/dL [facility] Comment:Diabetes: >=200 mg/d L plus symptoms Blood Urea Nitrogen 28(H) 8 - 18 mg/dL [facility] Creatinine 1.35(H) 0.70 - 1.20 mg/dL [facility] Sodium 140 135 - 145 mmol/L [facility] Potassium 4.2 3.5 - 5.0 mmol/L [facility] Comment: Please note: ??Patients with WBC >100,000 may have falsely elevated Potassium levels. ??For accurate Potassium quantification in these patients send serum separator tube (gold top) for subsequent determinations. ??Contact the Clinical Chemistry Laboratory if there are any questions. Chloride 104 98 - 107 mmol/L [facility] Carbon Dioxide 25 22 - 31 mmol/L [facility] Anion Gap 11 5 - 15 mmol/L [facility] Calcium 9.0 8.5 - 10.5 mg/dL [facility] Protein, Total 6.8 6.1 - 8.0 gm/dL [facility] Albumin 4.3 3.2 - 5.2 gm/dL [facility] Aspartate Aminotransferase Not Perf 0 - 30 [facility] Comment:Unable to quantitate due to sample hemolysis. Sample redraw suggested. Alanine Aminotransferase 12 0 - 30 unit/L [facility] Alkaline Phosphatase 67 35 - 105 unit/L [facility] Bilirubin, Total 0.3 0.2 - 1.3 mg/dL [facility] Est Glomerular Filtration Rate 36(L) >=60 mL/min/1. 73 m?? [facility] Comment: This patient? s [...] In Lab Patrice Cárdenas MD CHEMISTRY ORDERABLES [facility] [place] [address] documented in this encounter Visit Diagnoses Diagnosis Atrial fibrillation, unspecified type Hiatal hernia Diaphragmatic hernia without mention of obstruction or gangrene documented in this encounter Care Teams Senior Hris Analyst Relationship Specialty Start Date End Date Patricia Garza APRN [address] [place] [address] PCP - General Internal Medicine 04/02/20 documented as of this encounter
--- OUTSIDE RECORDS SUMMARY | 2024-06-07 10:41 | XMS_ITS | Encounter Summary ---
[place] [address] Care Team Providers Care Book Jogger Name Role Phone Patricia Garza APRN Primary Care Provider Reason for Visit * Auth/Cert Specialty Diagnoses / Procedures Referred By Amanuel centeno Referred To Contact Diagnoses Paraesophageal hernia Atrial fibrillation with rapid ventricular response Postoperative vomiting Referral ID Status Reason Start Date Expiration Date Visits Re quested Visits Authorized [id number] 1 1 Encounter Details Date Type Department Care Team (Late st Contact Info) Description 08/15/2021 7:36 AM EDT Anesthesia Event [place] [address] Radha Brito MD [facility] [place] [address] Jacinto Cardoso MD [facility] [place] [address] Anesthesia Record Procedure Summary Procedure Name Responsible [...] 14; none; 08/15/21; 1710 08/15/21 0000 by Evangelina Vogel RN 08/15/21 1710 by Rolan Funez, RN (RETIRED) Peripheral IV Line - Single Lumen 08/15/21; 0730; median cubital vein (antecubital fossa), left; dtsv-ygv-uxbhup catheter system; 22 gauge, 1 in length; [...] dorsal arch vein (top of hand), right; poaa-lcn-amreyp catheter system; Anatomical Landmarks; 18 gauge; no [...] Procedure Summary Date: 08/15/21 Room / Location: [facility] OR [facility] MAIN OR Anesthesia Start: 735 Anesthesia Stop: Procedures: ROBOT XI LAPAROSCOPIC PARAESOPHAGEAL HERNIA REPAIR W/FUNDOPLASTY,W/O MESH (WRVU 26.6) (N/A Abdomen) MODIFIER ROBOT,DAVINCI XI (N/A ) EGD, UPPER GI ENDOSCOPY (N/A Esophagus) Diagnosis: Hiatal hernia (Giant paraesophageal hernia) Surgeons: Hal Marroquin MD Responsible Provider: Radha Brito MD Anesthesia Type: general ASA Status: 3 All Anesthesia Providers: Anesthesiologist: Radha Brito MD Emergency Management Coordinator: Jacinto Cardoso MD Vitals Value Taken Time BP 159/74 08/15/21 1130 Temp Pulse 77 08/15/21 1135 Resp 34 08/15/21 1135 SpO2 99 % 08/15/21 1135 Pain Level Vitals shown include unvalidated device data. Patient Location: PACU/[facility] Level of Consciousness: Conscious but Sleepy Pain [...] 5% 50 mL infusion 900 mg, Intravenous, AIRCRAFT DE ICER INSTALLER TO O.R., 1 dose, On Sun08/15/21 at [...] mg documented in this encounter Care Teams Book Jogger Relationship Specialty Start Date End Date Patricia Garza, LAZARA [address] [place] [address] PCP - General Internal Medicine 04/02/20 documented as of this encounter
--- OUTSIDE RECORDS SUMMARY | 2024-06-07 10:41 | XMS_ITS | Encounter Summary ---
Author Organization [facility] [place] [address] Care Team Providers Care Geophysical Laboratory Chief Name Role Phone Patricia Garza APRN Primary Care Provider [phone] Encounter Details Date Type Department Care Team (Latest Contact Info) Description 09/04/2020 8:34 PM EST - 09/04/2020 11:59 PM EST Hospital [place] [phone] Discharge Disposition: Home Social History Tobacco Use [...] EST) SARS-CoV-2 RNA Detected (A) Not Detected [facility] Comment: This result should be [...] on the instructions for use provided by [employer] and additional guidance provided by CDC and FDA. Testing is performed in the Clinical Genomics and [facility] Laboratory within the Department of Pathology and Laboratory Medicine at [facility], certified under the Clinical Laboratory [...] fact sheets at the following FDA website: https://www.fda.gov/medical-devices/qotoojyzodj-ayqrmlx-9281-essax-60-wutycvmcl- use-a swtybzblmnkeh-gjxtnma-xbjgbbu/tmjif-xlzxcbvigoc-wgmd SARS-CoV-2 RNA Source DEPARTMENT MGR Swab [facility] Nasopharyngeal swab (specimen) Other / Unknown 09/04/2020 8:50 AM EST 09/04/2020 9:51 PM EST Narrative Resulting Agency Comment Spec In Lab Niraj Teague DO MOLECULAR ORDERABLES [facility] [place] [address] documented in this encounter Visit Diagnoses Not on filedocumented in this encounter Care Teams Geophysical Laboratory Chief Relationship Specialty Start Date End Date Patricia Garza APRN [address] [place] [address] PCP - General Internal Medicine 04/02/20 documented as of this encounter
--- OUTSIDE RECORDS SUMMARY | 2024-06-07 10:41 | XMS_ITS | Encounter Summary ---
[place] [address] Care Team Providers Care Seconds Inspector Name Role Phone Patricia Garza APRN Primary Care Provider [phone] Encounter Details Date Type Department Care Team ([facility] st Contact Info) Description 05/03/2021 [place] [address] Merna Dunbar Social History Tobacco Use Types [...] MANOMETRY CLINICAL SAFETY CHECKLIST 05/03/2021 Merna Fuller [address] [place] [address] [address] [facility] [id number] : 1940 REFERRING PROVIDER: PATRICE CÁRDENAS [[id number]] PRIMARY CARE PROVIDER: Patricia Garza APRN PRIMARY SYMPTOM (PROCEDURE INDICATION): other: SAFETY QUESTIONS HISTORY OF TRANSSPHENOIDAL OR PITUITARY SURGERY? no IF YES, please inform the patient that the test cannot be scheduled due to safety concerns about testing, and the patient should speak with their provider to consider alternative testing. The radiologic therapist should also contact the provider's office directly [...] other: Hiatal Hernia , RMD: PATRICE CÁRDENAS [[id number]], PCP: Patricia Garza APRN, wheelchair: No, blood thinners: Yes, allergy to lidocaine/benzocaine/novocaine: No (At exit, the RMD for appointment notes is the GI provider who saw the patient) documented in this encounter Plan of Treatment Not on file documented as of this encounter Visit Diagnoses Not on filedocumented in this encounter Care Teams Seconds Inspector Relationship Specialty Start Date End Date Patricia Garza APRN [address] [place] [address] PCP - General Internal Medicine 04/02/20 documented as of this encounter
--- OUTSIDE RECORDS SUMMARY | 2024-06-07 10:41 | XMS_ITS | Encounter Summary ---
[place] [address] Care Team Providers Care Order Checker Name Role Phone Patricia Garza APRN Primary Care Provider Encounter Details Date Type Department Care Team (Late st Contact Info) Description 06/27/2021 Telephone [place] [phone] Livier Chaney, RN Social History Tobacco Use [...] surgery rescheduled Patient was recently seen at [facility] for a Pre-op risk stratification stress test. Per her sons recollection, she was unable to tolerate the procedure and ended up getting dizzy, weak and vomiting. She declines to try this test again. Surgery postponed and we will discuss with cardiology. Referral to cardiology at [facility] for risk stratification. documented in this encounter [...] type documented in this encounter Care Teams Order Checker Relationship Specialty Start Date End Date Patricia Garza, POT MAKER [address] [place] [address] PCP - General Internal Medicine 04/02/20 documented as of this encounter
--- OUTSIDE RECORDS SUMMARY | 2024-06-07 10:41 | XMS_ITS | Encounter Summary ---
[place] [address] Care Team Providers Care Licensing Registration Examiner Name Role Phone Patricia Garza APRN Primary Care Provider [phone] Encounter Details Date Type Department Care Team (Late st Contact Info) Description 07/13/2021 Telephone [place] [phone] Livier Chaney, RN Social History Tobacco Use [...] to return my call. Left message at [facility] Cardiology as well [phone]. documented in this encounter Plan of Treatment Not on file documented as of this encounter Visit Diagnoses Not on filedocumented in this encounter Care Teams Licensing Registration Examiner Relationship Specialty Start Date End Date Patricia Garza APRN [address] [place] [address] PCP - General Internal Medicine 04/02/20 documented as of this encounter
--- OUTSIDE RECORDS SUMMARY | 2024-06-07 10:41 | XMS_ITS | Encounter Summary ---
Author Organization [facility] [place] [address] Care Team Providers Care Filament Shaper Name Role Phone Patricia Garza APRN Primary Care Provider Reason for Referral * Consultation (Urgent) - Closed Specialty Diagnoses / Procedures Referred By Contac t Referred To Contact Gastroenterology Diagnoses Hiatal hernia [facility] - HH Procedures HIGH RESOLUTION ESOPHAGEAL MANOMETRY [facility] - [facility] Patrice Cárdenas MD [facility] [place] [address] [facility] [address] [place] [address] Referral ID Status Reason Start Date Expiration Date V isits Requested Visits Authorized [id number] Closed Test Only 04/26/2021 04/26/2022 1 1 Reason for Visit * Reason Comments Hiatal Hernia Encounter Details Date Type Department Care Team (Late st Contact Info) Description 04/26/2021 2:45 PM EDT Office [place] [address] Patrice Cárdenas MD [facility] [place] [address] Hiatal hernia; Cerebrovascular accident (CVA) [...] * Patient Instructions* Livier Chaney RN - 04/26/2021 2:45 PM EDT Thank you for visiting Dr. Cárdenas in clinic 04/26/21 Dr. Cárdenas would like to see you back in clinic with a recent Esophageal Manometry Study. High-resolution manometry (HRM) of the esophagus is a new technique that provides a more precise assessment of esophageal motility than conventional techniques. Esophageal manometry (xdc-AXW-xw-tree) is a test that shows whether your [...] Up Note Patrice Cárdenas MD [place] [address] FAX: Pre Op Dx: Large paraesophageal hernia [...] Up Note Patrice Cárdenas MD [place] [address] FAX: Pre Op Dx: Large paraesophageal hernia [...] artery documented in this encounter Care Teams Filament Shaper Relationship Specialty Start Date End Date Patricia Garza APRN [address] [place] [address] PCP - General Internal Medicine 04/02/20 documented as of this encounter
--- OUTSIDE RECORDS SUMMARY | 2024-06-07 10:41 | XMS_ITS | Encounter Summary ---
Author Organization [facility] [place] [address] Care Team Providers Care Player Development Manager Name Role Phone Patricia Garza APRN Primary Care Provider [phone] Reason for Referral * Consultation (Urgent) - Closed Specialty Diagnoses / Procedures Referred By Contac t Referred To Contact Cardiology Diagnoses Pre-operative cardiovascular examination, high risk surgery Atrial fibrillation, unspecified type Cerebrovascular accident (CVA) due to stenosis of other cerebral artery Hiatal hernia Hypertension, unspecified type Hyperlipidemia, unspecified hyperlipidemia type Hal Marroquin MD [facility] [place] [address] Referral ID Status Reason Start Date Expiration Date V isits Requested Visits Authorized [id number] Closed Consult, Test & Treat 07/01/2021 12/28/2021 1 1 Encounter Details Date Type Department Care Team (Late st Contact Info) Description 07/01/2021 Orders Only [place] [address] Livier Chaney RN Pre-operative cardiovascular examination, high [...] type documented in this encounter Care Teams Player Development Manager Relationship Specialty Start Date End Date Patricia Garza, OFFICE BOOKKEEPER [address] [place] [address] PCP - General Internal Medicine 04/02/20 documented as of this encounter
--- OUTSIDE RECORDS SUMMARY | 2024-06-07 10:41 | XMS_ITS | Encounter Summary ---
[place] [address] Care Team Providers Care Political Director Name Role Phone Patricia Garza APRN Primary Care Provider [phone] Encounter Details Date Type Department Care Team (Late st Contact Info) Description 04/27/2021 Telephone [place] [address] Juan Stovall Social History Tobacco Use Types [...] calls can be handled by: [facility] Automobile Repair Service Estimator documented in this encounter Plan of Treatment Not on file documented as of this encounter Visit Diagnoses Not on filedocumented in this encounter Care Teams Political Director Relationship Specialty Start Date End Date Patricia Garza, LAZARA [address] [place] [address] PCP - General Internal Medicine 04/02/20 documented as of this encounter
--- OUTSIDE RECORDS SUMMARY | 2024-06-07 10:41 | XMS_ITS | Encounter Summary ---
[place] [address] Care Team Providers Care Maintenance Manager Name Role Phone Patricia Garza APRN Primary Care Provider [phone] Encounter Details Date Type Department Care Team (Latest Contact Info) Description 08/05/2021 9:55 AM EDT Laboratory Appointment Lab [address] [place] [address] Atrial fibrillation, unspecified type; Hiatal [...] 9:50 AM EDT) Neutrophil % 71.9 % [facility] Neutrophil Absolute 5.62 1.70 - 6.10 x10(3)/mc L [facility] Lymph % 15.7 % [facility] Lymphocytes Abs 1.2 0.9 - 3.2 x10(3)/mc L [facility] Monocyte % 8.0 % [facility] Monocyte Abs 0.6 0.3 - 0.9 x10(3)/mc L [facility] Eos % 2.8 % [facility] Eosinophils Abs 0.2 0.0 - 0.4 x10(3)/mc L [facility] Basophil % 1.0 % [facility] Baso Absolute 0.1 0.0 - 0.1 x10(3)/mc L [facility] Immature Gran % 0.60 % [facility] Comment: Immature granulocytes(IG's)percentage and absolute count will include metamyelocytes, myelocytes, and promyelocytes. Blood smears from CBCs yielding IG's will be scanned manually for concordance. If this scan disagrees with the automated IG or if promyelocytes are noted, a manual differential will be performed. Immature Gran Absolute 0.05(H) 0.00 - 0.04 x10(3)/mc L [facility] Blood 08/05/2021 9:50 AM EDT 08/05/2021 9:58 AM EDT Narrative Resulting Agency Comment Spec In Lab Hal Marroquin MD HEMATOLOGY ORDERABLE S [facility] [place] [address] * Hemogram (08/05/2021 9:50 AM EDT) [facility] White Blood Cell 7.8 4.0 - 9.5 x10(3)/[facility] Red Blood Cell 4.36 4.00 - 5.21 x10(6)/[facility] Hemoglobin 13.4 11.7 - 15.5 g/dL [facility] Hematocrit 40.3 35.7 - 45.8 % [facility] Mean Cell Volume 92.4 82.6 - 94.4 fL [facility] Mean Cell Hemoglobin 30.7 27.1 - 32.0 pg [facility] Mean Cell Hemoglobin Concentration 33.3 31.7 - 35.0 g/dL [facility] Platelet 295 145 - 357 x10(3)/[facility] RDW Standard Deviation 44.8 37.0 - 46.0 [facility] RDW coefficient of variation 13.2 11.5 - 14.1 % [facility] Mean Platelet Volume 9.5 7.6 - 12.9 [facility] NRBC% auto 0.0 % [facility] NRBC Absolute 0.000 0.000 - 0.000 x10(3)/[facility] Blood 08/05/2021 9:50 AM EDT 08/05/2021 9:58 AM EDT Narrative Resulting Agency Comment Spec In Lab Hal Marroquin MD HEMATOLOGY ORDERABLE S [facility] [place] [address] * (ABNORMAL) Comprehensive metabolic panel (non-fasting) (08/05/2021 9:50 AM EDT) Pathologist [facility] Glucose 96 65 - 199 mg/dL [facility] Comment:Diabetes: >=200 mg/d L plus symptoms Blood Urea Nitrogen 21(H) 8 - 18 mg/dL [facility] Creatinine 1.05 0.70 - 1.20 mg/dL [facility] Sodium 139 135 - 145 mmol/L [facility] Potassium 3.7 3.5 - 5.0 mmol/L [facility] Comment: Please note: ??Patients with WBC >100,000 may have falsely elevated Potassium levels. ??For accurate Potassium quantification in these patients send serum separator tube (gold top) for subsequent determinations. ??Contact the Clinical Chemistry Laboratory if there are any questions. Chloride 104 98 - 107 mmol/L [facility] Carbon Dioxide 28 22 - 31 mmol/L [facility] Anion Gap 7 5 - 15 mmol/L [facility] Calcium 8.8 8.5 - 10.5 mg/dL [facility] Protein, Total 6.4 6.1 - 8.0 g/dL [facility] Albumin 4.0 3.2 - 5.2 g/dL [facility] Aspartate Aminotransferase 9 0 - 30 unit/L [facility] Alanine Aminotransferase 9 0 - 30 unit/L [facility] Alkaline Phosphatase 65 35 - 105 unit/L [facility] Bilirubin, Total 0.2 0.2 - 1.3 mg/dL [facility] Est Glomerular Filtration Rate 49(L) >=60 mL/min/1. 73 m?? [facility] Comment: This patient? s [...] In Lab Hal Marroquin MD CHEMISTRY ORDERABLES [facility] [place] [address] documented in this encounter Visit Diagnoses Diagnosis Atrial fibrillation, unspecified type Hiatal hernia Diaphragmatic hernia without mention of obstruction or gangrene documented in this encounter Care Teams Maintenance Manager Relationship Specialty Start Date End Date Patricia Garza, SKIMMER SCOOP OPERATOR [address] [place] [address] PCP - General Internal Medicine 04/02/20 documented as of this encounter
--- OUTSIDE RECORDS SUMMARY | 2024-06-07 10:41 | XMS_ITS | Encounter Summary ---
[place] [address] Care Team Providers Care Fire Adjuster Name Role Phone Patricia Garza APRN Primary Care Provider Encounter Details Date Type Department Care Team (Late st Contact Info) Description 04/12/2020 Telephone Hematology [place] [phone] Carey Shah, GUME Social History Tobacco Use [...] symptomatic you will need to wear a [facility]-issued mask. PHONE SCREENING: ??? In order for [...] on filedocumented in this encounter Care Teams Fire Adjuster Relationship Specialty Start Date End Date Patricia Garza APRN [address] [place] [address] PCP - General Internal Medicine 04/02/20 documented as of this encounter
--- OUTSIDE RECORDS SUMMARY | 2024-06-07 10:41 | XMS_ITS | Encounter Summary ---
[place] [address] Care Team Providers Care Labor Relations Supervisor Name Role Phone Patricia Garza APRN Primary Care Provider [phone] Encounter Details Date Type Department Care Team (Late st Contact Info) Description 06/08/2021 Telephone [place] [phone] Jennifer Cabrera Social History Tobacco Use Types [...] PM EDT Stress test order faxed to [facility] per pt request [phone] documented in this encounter Plan of Treatment Not on file documented as of this encounter Visit Diagnoses Not on filedocumented in this encounter Care Teams Labor Relations Supervisor Relationship Specialty Start Date End Date Patricia Garza APRN [address] [place] [address] PCP - General Internal Medicine 04/02/20 documented as of this encounter
--- OUTSIDE RECORDS SUMMARY | 2024-06-07 10:41 | XMS_ITS | Encounter Summary ---
[place] [address] Care Team Providers Care Core Shaper Name Role Phone Patricia Garza APRN Primary Care Provider Reason for Referral * Diagnostic Test (Routine) - Closed Specialty Diagnoses / Procedures Referred By Contac t Referred To Contact Radiology Diagnoses History of cardioembolic cerebrovascular accident (CVA) Atrial fibrillation, unspecified type Procedures CT Angiogram Coronary Arteries Lizzette Mccarty MD [address] [place] [address] [place] [address] [facility] [place] [address] Referral ID Status Reason Start Date Expiration Date V isits Requested Visits Authorized [id number] Closed Specialty Service Requested 07/26/2021 01/23/2023 1 1 Reason for Visit * Diagnostic Test (Routine) - Closed Specialty Diagnoses / Procedures Referred By Contac t Referred To Contact Radiology Diagnoses History of cardioembolic cerebrovascular accident (CVA) Atrial fibrillation, unspecified type Procedures CT Angiogram Coronary Arteries Lizzette Mccarty MD [address] [place] [address] [place] [address] [facility] [place] [address] Referral ID Status Reason Start Date Expiration Date V isits Requested Visits Authorized [id number] Closed Specialty Service Requested 07/26/2021 01/23/2023 1 1 Encounter Details Date Type Department Care Team (Latest Contact Info) Description 08/05/2021 11:44 AM EDT - 08/05/2021 11:59 PM EDT Hospital [place] [address] Lizzette Mccarty MD [address] [place] [address] [place] [address] History of cardioembolic cerebrovascular accident (CVA); Atrial [...] who have questions please contact the health progressive care nurse that requested your imaging first. ? Narrative [...] patients who have questions please contactthe health progressive care nurse that requested your imaging first. Lizzette Mccarty [...] mLs documented in this encounter Care Teams Core Shaper Relationship Specialty Start Date End Date Patricia Garza APRN [address] [place] [address] PCP - General Internal Medicine 04/02/20 documented as of this encounter
--- OUTSIDE RECORDS SUMMARY | 2024-06-07 10:41 | XMS_ITS | Encounter Summary ---
[place] [address] Care Team Providers Care Music Intern Name Role Phone Patricia Garza APRN Primary Care Provider Encounter Details Date Type Department Care Team (Late st Contact Info) Description 08/11/2021 Telephone Hematology [place] [phone] Renata Epps MSW CARE MANAGEMENT Social History [...] MSW - 08/11/2021 1:31 PM EDT Continuing Water Pump Installer-Social Work Note [facility]/Office of Care Management Referral/Contact: Referral received from DEE DEE Crespo, advising that pt is scheduled for surgery with Dr. Marroquin on 08/15. Pt's daughter is reportedly going to fly in from [place] but pt is concerned about the possibility [...] Luis E Meyer. Intervention(s): Care Coordination Plan: [facility]- remains available for psychosocial assessment, support, and resource coordination as needed. OMAR Serna Pager: [phone] documented in this encounter Plan of Treatment Not on file documented as of this encounter Visit Diagnoses Not on filedocumented in this encounter Care Teams Music Intern Relationship Specialty Start Date End Date Patricia Garza APRN [address] [place] [address] PCP - General Internal Medicine 04/02/20 documented as of this encounter
--- OUTSIDE RECORDS SUMMARY | 2024-06-07 10:41 | XMS_ITS | Encounter Summary ---
[place] [address] Care Team Providers Care Floor Hand Name Role Phone Patricia Garza APRN Primary Care Provider Reason for Visit * Auth/Cert Specialty Diagnoses / Procedures Referred By Amanuel centeno Referred To Contact Diagnoses Paraesophageal hernia Atrial fibrillation with rapid ventricular response Postoperative vomiting Referral ID Status Reason Start Date Expiration Date Visits Re quested Visits Authorized [id number] 1 1 Encounter Details Date Type Department Care Team (Late st Contact Info) Description 08/15/2021 7:30 AM EDT - 08/15/2021 12:15 PM EDT Surgery [place] [id number] Patrice Cárdenas MD [facility] [place] [address] ROBOT XI LAPAROSCOPIC PARAESOPHAGEAL HERNIA REPAIR W/FUNDOPLASTY,W/O [...] Primary * Ilan Robb PA - Physician Construction Grip Procedure: Procedure(s): ROBOT XI LAPAROSCOPIC PARAESOPHAGEAL HERNIA [...] Hospital Course: Linda Fuller was admitted to [facility] on 1via the Same Day Program. [...] who have questions please contact the health auto care center manager that requested your imaging first. Electronically signed by: Law Galo MD, [facility] ([phone]), at 08/16/2021 2:59 PM Pending Studies and [...] a nurse in the Thoracic Clinic at [phone]. After hours or on weekends or holidays please call: [phone] and ask to speak to the Thoracic Surgeon microsoft infrastructure consultant. Exercise & Activity Level: As you recover [...] please call the thoracic surgery clinic at [phone]. Driving: No driving for 1 week or [...] the Thoracic Clinic or the Thoracic Surgeon microsoft infrastructure consultant after hours. Please take over the counter [...] Time Provider Department Center 08/16/2021 1:30 PM [facility] DX ROOM 8 Xray [facility] Rad General Instructions None Future Appointments and Orders Future Orders Complete By Expires XR Chest PA & Lateral (Generic) [[id number] Custom] 08/30/2021 08/16/2022 Process Instructions: Scheduling Instructions: Questions: Where will study be performed?: [facility] Radiology Portable exam?: Reason for exam and clinical history: s/p robotic PEHR Clinical information / pimentel questions: recurrence, PTX, effusion, comparison, changes Stat read required?: Date of injury if applicable: Requested Time: Referral to Home Health - at DISCHARGE [VUX0618 CPT(R)] As directed Process Instructions: Scheduling Instructions: Comments: DOCUMENTATION FOR VNA SERVICES (INCLUDING THOSE PATIENTS WITH MEDICARE COVERAGE REQUIRING HOME VNA SERVICES AND/OR HOSPICE SERVICES) PATIENT'S LOCATION: Linda Fuller [address] [place] [address] (home) Wrapper Cashier's Name: self/family In discussion with the attending physician, it is certified that this patient is under their care and that they, or a Nurse Practitioner,Clinical Nurse specialist or Physician Construction Grip who is working directly with them, had [...] for managing ADL's. HOME HEALTH CARE AGENCY: [facility]. PHONE: [phone] FAX: [phone] Start of care: within 24 to 48 [...] obtained from this patient's PCP: Patricia Garza, HARNESSMAKER [address] [facility] [place] [address] All VNA agencies which cover the area of patient's residence have been reviewed, either verbally timothy writing, and patient/family have chosen the home health care agency noted Questions: Agency name and contact information: [facility] Patient location post discharge: home What services are requested: Registered Nurse Physical Therapy Occupational Therapy Start date: Responsible MD post discharge contact info: Surgery and PCP Provider Contact Information: Primary Care Provider: Patricia Garza APRN [phone] Discharge References/Attachments: Discharge References/Attachments None For questions regarding this document or issues relating to this hospitalization on the Thoracic Surgery Service, please contact Dr. Cárdenas's office at . Signed: MANDY Castro 08/16/2021 CC: PCP: Patricia Garza, HARNESSMAKER Referring: No referring provider defined for this [...] a nurse in the Thoracic Clinic at [phone]. After hours or on weekends or holidays please call: [phone] and ask to speak to the Thoracic [...] please call the thoracic surgery clinic at [phone]. Driving: No driving for 1 week or [...] the Thoracic Clinic or the Thoracic Surgeon microsoft infrastructure consultant after hours. Please take over the counter [...] Time Provider Department Center 08/16/2021 1:30 PM [facility] DX ROOM 8 Xray [facility] Rad documented in this encounter Medications [...] pt and daughter. Pt seen seen by silversmith apprentice, see note for details. Discharge instructions reviewed [...] referrals are placed. Patient requests referral to: [facility]. PHONE: [phone] FAX: [phone] Expected date of discharge: 08/16/2021 Referral routed to the Surgical Services Manager for matching with agency/vendor and to provide any required information. Mayela Vidal RN RN (Jonas)/SHANNON - Cellphone: [phone] Pager: [phone] Covering Service RN/CM * Donya Charlton RD [...] in the interim. Donya Charlton RD Pager: [phone] * Kwadwo Mosquera, PT - 08/16/2021 12:37 [...] 26.6) performed by Patrice Cárdenas MD at [facility] MAIN OR ??? PRO UPPER GI ENDOSCOPY, DIAGNOSTIC N/A 08/15/2021 EGD, UPPER GI ENDOSCOPY performed by Patrice Cárdenas MD at [facility] MAIN OR Social History: Home set-up: lives alone in a senior housing 2nd floor apt with elevator access. Daughter is going to stay a few days with her on d/c. Bathroom Set-up: walk in shower with grab bar and shower chair. Stairs: none, uses elevator. Baseline Mobility: walks with cane. Does not drive, likes to read and make cards; retired from [employer]. Equipment at home: rollator walker, cane, safety [...] abdominal pain. Vital Signs: Heart Rate: 87 (30=653 at rest, 106-136 with activity, end post rest 106.) BP: 132/84 SpO2: 92 % (91% with some SOB post activity, end 94%. ) O2 Device: None (Room air) Mental Status: alert, oriented to person, place, and time Vision: glasses time signal wirer, but not here. Skin: small incisions from [...] Physical Therapy: 27 KWADWO MOSQUERA, PT Pager: [phone] Physical Therapy Inpatient Rehabilitation Department * Elsy [...] 26.6) performed by Patrice Cárdenas MD at [facility] MAIN OR ??? PRO UPPER GI ENDOSCOPY, DIAGNOSTIC N/A 08/15/2021 EGD, UPPER GI ENDOSCOPY performed by Patrice Cárdenas MD at [facility] MAIN OR Social History: Patient lives [...] WFL Vision & Perception: ?? corrective lenses time signal wirer ?? glasses are not at hospital Communication: [...] complete functional transfers and mobility at modified [place] for participation in (I)ADLs using self pacing [...] and measurable assessment of functional outcome. Pager: [phone] Elsy Anderson OT 08/16/2021 Occupational Therapy Rehabilitation Department * Rolan Funez RN - 08/15/2021 5:58 PM EDT OUTCOME EVALUATION NOTE: OUTCOME SUMMARY: Linda arrived to [facility] at 1500 from PACU. Pt is A/Ox4 [...] Ahn MD - 08/15/2021 3:38 PM EDT [facility] Department of Thoracic Surgery Inpatient Post Op Check Note Patient Name: Linda Fuller Patient : [id number] Patient Patient Location: [address] [place] [address] Attending Surgeon: PATRICE CÁRDENAS ID: Linda Fuller [...] Encounter Date Admission (Current) from 08/15/[address] [place] [address] Office Visit from 06/07/2021 in Thoracic Surgery at [facility] Weight 61.8 kg (136 lb 4.8 oz) [...] PCR Invalid (A) Not Detected SARS-CoV-2 Source SOUS CHEF KITCHEN MANAGER Swab Respiratory Panel PCR Specimen: Nasopharyngeal Swab Symptoms->Surveillance Result Value Ref Range Resp Panel Source SOUS CHEF KITCHEN MANAGER Swab Resp Panel PCR Negative Negative Adenovirus [...] QTC Calculated (Bezet) 490 ms Calculated P Dingess 81 degrees Calculated R Dingess 32 degrees Calculated T Dingess 53 degrees INTERPRETATION Sinus rhythm with Premature [...] Ahn MD 08/15/2021 Thoracic Surgery Service Pager [phone] * Mary Perez RN - 08/15/2021 12:19 [...] MANDY Luis 08/15/2021 Thoracic Surgery Service Pager [phone] documented in this encounter Miscellaneous Notes * Plan of Care - Rjaani Epps RN - 08/16/2021 4:55 AM EDT [...] Operative Note Patient Name: Linda Fuller : [id number] MR#: [id number] Case Date: 08/15/2021 Surgeon: Surgeon(s) and Role: * Patrice Cárdenas MD - Primary * Ilan Robb PA - Physician Construction Grip Preoperative diagnosis: Giant paraesophageal hernia Postoperative diagnosis: [...] SPECIMEN TO PATHOLOGY Hernia sac OR 11 [address]275 Giant paraesophageal hernia Hernia sac excision No [...] dissection was used to identify the fascia. Jasper's were used on the fascia to lifted [...] closed using 0 Vicryl suture in a jqwscy-et-vlgst fashion using a Mina Lara needle. Patient was placed supine and the gas was evacuated from the abdominal cavity and the ports were removed. The midline incision was closed with interrupted 0 Vicryl sutures under direct visualization. The wounds were then all irrigated and closed with a 3-0 Vicryl jourdan dermal fashion and Dermabond for the skin. MANDY Clark was my administrative sales assistant during the entire procedure since no [...] 9:48 AM EDT Upper GI Endoscopy, Diagnostic ([id number]) Yes 08/15/2021 7:35 AM EDT Hiatal hernia MODIFIER ROBOT,DAVINCI XI Yes 08/15/2021 7:35 AM EDT Hiatal hernia Laparoscopy Repair Paraesophageal Hernia Incl Fundoplasty W/O Mesh ([id number]) Yes 08/15/2021 7:35 AM EDT Hiatal hernia RAPID COVID-19 PCR ([facility]) Routine 08/15/2021 7:13 AM EDT RESPIRATORY [...] who have questions please contact the health auto care center manager that requested your imaging first. ? Electronically signed by: Law Galo MD, [facility] ([phone]), at 08/30/2021 1:05 PM Narrative 08/30/2021 1:05 [...] patients who have questions please contactthe health auto care center manager that requested your imaging first. Electronically signed by: Law Galo MD, [facility]([phone]), at 08/30/2021 1:05 PM Patrice Cárdenas MD [...] who have questions please contact the health auto care center manager that requested your imaging first. ? Electronically signed by: Law Galo MD, [facility] ([phone]), at 08/16/2021 2:59 PM Narrative 08/16/2021 2:59 PM EDT EXAMINATION: XR FLUORO BARIUM SWALLOW (DOUBLE CONTRAST) CLINICAL HISTORY: s/p PEHR repair - please eval for recurrence TECHNIQUE: Single contrast esophagram was performed using 50 cc Omnipaque 300. Pulp House Supervisor AP radiograph of the lower chest/upper abdomen was obtained. COMPARISON: Barium swallow 04/26/2021 FINDINGS: Pulp House Supervisor radiograph demonstrates mild linear atelectasis at [...] was obtained. COMPARISON: Barium swallow 04/26/2021 FINDINGS: Pulp House Supervisor radiograph demonstrates mild linear atelectasis at [...] patients who have questions please contactthe health auto care center manager that requested your imaging first. Electronically signed by: Law Galo MD, [facility]([phone]), at 08/16/2021 2:59 PM Patrice Cárdenas MD IMG FLUORO ORDERABLE S * EKG 12 Lead (08/15/2021 12:17 PM EDT) Ventricular rate 70 BPM MUSE SYSTEM Atrial Rate 70 BPM MUSE SYSTEM P-R Interval 208 ms MUSE SYSTEM QRS Duration 90 ms MUSE SYSTEM Q-T Interval 454 ms MUSE SYSTEM QTC Calculated (Bezet) 490 ms MUSE SYSTEM Calculated P Dingess 81 degrees MUSE SYSTEM Calculated R Dingess 32 degrees MUSE SYSTEM Calculated T Dingess 53 degrees MUSE SYSTEM INTERPRETATION Sinus rhythm [...] Report (08/15/2021 9:48 AM EDT) Final Diagnosis [id number] ? Location: [facility]; [facility]; The signing pathologist has (i) examined the relevant preparation(s) for the specimen(s) and (ii) rendered or confirmed the diagnosis(es). . ?Surgical Pathology DIAGNOSIS A - Fibromembranous tissue, hernia sac: Gross surgical pathology examination. Electronically signed by: ?Hayley Echavarria MD Verified: ??08/19/2021 20:48 ??Pathologist Performed at: ??-[facility] Dept. of Pathology, [place], [place] SPECIMEN(S) SUBMITTED A - Hernia sac, excision (1) CLINICAL INFORMATION clinically giant paraesophageal hernia SPECIMEN PROCESSING A - Labeled/Fixative: Hernia sac, fresh. Quantity/Size: Two, aggregating 8.4 x 5.3 x 0.3 cm. Tissue Description: Adame-pink fibromembranous tissue. Sections/Processin g: No sections submitted, gross diagnosis only ??pps 08/19/2021 8:48 PM EDT [facility] HERNIA SAC / Unknown 08/15/2021 9:48 AM EDT 08/15/2021 9:48 AM EDT Patrice Cárdenas MD PATHOLOGY/CYTOLOGY O RDERABLES [facility] [place] [address] * Specimen to Pathology (08/15/2021 9:48 AM EDT) AP Specimen 08/15/2021 9:48 AM EDT 08/15/2021 9:48 AM EDT Narrative [facility] - 08/15/2021 9:48 AM EDT Specimen requisition ordered. ??Separate Pathology report to follow Patrice Cárdenas MD PATHOLOGY/CYTOLOGY O RDERABLES [facility] [place] [address] * Respiratory Panel PCR (08/15/2021 7:13 AM EDT) Respiratory Panel Source SOUS CHEF KITCHEN MANAGER Swab [facility] Respiratory Panel PCR Negative Negative [facility] Comment: Respiratory Panels are performed on the [employer], using multiplexed PCR nucleic acid detection. ??Negative results do not preclude respiratory infection and should not be used as the sole basis for diagnosis, treatment or other management decisions. Adenovirus Not Detected Not Detected [facility] Coronavirus HKU1 Not Detected Not Detected [facility] Coronavirus NL63 Not Detected Not Detected [facility] Coronavirus 229E Not Detected Not Detected [facility] Coronavirus OC43 Not Detected Not Detected [facility] SARS-CoV-2 Not Detected Not Detected [facility] Comment: Testing for SARS-CoV-2 (Severe acute respiratory syndrome coronavirus 2) to aid in the diagnosis of COVID-19 is performed using the BioFire Respiratory Panel 2.1 (Self Point) as authorized by the FDA issued Emergency Use Authorization (EUA). This panel also tests for multiple other viral and bacterial pathogens. This assay is intended for In-vitro Diagnostic (IVD) use with nasopharyngeal swabs in viral transport media. The assay is performed based on the instructions for use and additional guidance provided by the FDA. Testing is performed in laboratories within the [facility], each of which is certified under [...] fact sheets at the following FDA website: https://www.fda.gov/medical-devices/xaramocmlge-mheqmfd-8501-ztheo-55-rmqossmht- use-a wkbdwluumaxuu-iyvptja-htzekgo/ojzhz-ovkfitmoayf-fzzz Human Metapneumovirus Not Detected Not Detected [facility] Human Rhinovirus/Enterov irus Not Detected Not Detected [facility] Influenza A Not Detected Not Detected [facility] Influenza B Not Detected Not Detected [facility] Parainfluenza 1 Not Detected Not Detected [facility] Parainfluenza 2 Not Detected Not Detected [facility] Parainfluenza 3 Not Detected Not Detected [facility] Parainfluenza 4 Not Detected Not Detected [facility] Respiratory Syncytial Virus Not Detected Not Detected [facility] Chlamydophila pneumoniae Not Detected Not Detected [facility] Mycoplasma pneumoniae Not Detected Not Detected [facility] Nasopharyngeal Swab Other / Unknown 08/15 7:13 AM EDT 08/15/2021 8:19 AM EDT Comment:Symptoms->Surveillan ce Narrative Resulting Agency Comment Spec In Lab Ilan GALVAN MICROBIOLOGY - GENER AL ORDERABLES [facility] [place] [address] * (ABNORMAL) COVID-19 PCR (08/15/2021 7:13 AM EDT) SARS-CoV-2 RNA (Rapid) Invalid( A) Not Detected [facility] Comment: This result should be [...] using the Simplexa COVID-19 Direct Assay by App Annie as authorized by the FDA issued Emergency [...] Department of Pathology and Laboratory Medicine at [facility], certified under the Clinical Laboratory Improvement [...] fact sheets at the following FDA website: https://www.fda.gov/medical-devices/jmltutiwbbr-zxtfvhb-8782-kjgqs-69-tgotfepox- use-a xefubeipilqff-vpasoet-amfrmnd/iuabi-qfaqghfrtqf-pvtj SARS-CoV-2 Source SOUS CHEF KITCHEN MANAGER Swab MA R[facility] Nasopharyngeal Swab 08/15/20 7:13 AM EDT 08/15/2021 8:19 AM EDT Comment:Symptoms->Surveillan ce Narrative Resulting Agency Comment Spec In Lab Patrice Cárdenas MD MICROBIOLOGY - GENER AL ORDERABLES Performing Organization Address [facility] [employer] de Phone Number [facility] [place] [address] * POCT Glucose (08/15/2021 6:34 AM EDT) Glucose, POC 95 65 - 199 mg/dL [facility] Comment: Supplemental ranges: <140 mg/dL before meals <180 mg/dL all other times of the day Blood 08/15/2021 6:34 AM EDT 08/15/2021 6:34 AM EDT Patrice Cárdenas MD POINT OF CARE TEST O RDERABLES Performing Organization Address [facility] [employer] de Phone Number [facility] [place] [address] documented in this encounter Visit Diagnoses Diagnosis [...] subcutaneous injection 5,000 Units 5,000 Units, Subcutaneous, COMPOSITION WORKER TO O.R., 1 dose, On Sun08/15/21 at [...] 50 mL infusion (COMPLETED) 900 mg, Intravenous, COMPOSITION WORKER TO O.R., 1 dose, On Sun08/15/21 at [...] refused) 0900 (Not Given - Provider: Angela Paige, PAULETTE - Reason: NPO)1515 (Given - Provider: Angela Paige, RN) fenofibrate micronized (Lofibra) capsule 67 mg 67 mg, Oral, DAILY WITH BREAKFAST, First dose on Sun08/16/21 at 0800, Until Discontinued, Please dissolve in water 0800 (Not Given - Provider: Rolan Funez RN - Reason: NPO) heparin (porcine) (5,000 units/1 mL) subcutaneous injection 5,000 Units (COMPLETED) 5,000 Units, Subcutaneous, COMPOSITION WORKER TO O.R., 1 dose, On Sun08/15/21 at [...] Provid er: Rosemary Varner - Comment: Apr [id number]) ipratropium (Atrovent) 0.02 % nebulizer solution 0.5 [...] documented as of this encounter Care Teams Floor Hand Relationship Specialty Start Date End Date Patricia Garza APRN [address] [place] [address] PCP - General Internal Medicine 04/02/20 documented as of this encounter
--- OUTSIDE RECORDS SUMMARY | 2024-06-07 10:41 | XMS_ITS | Encounter Summary ---
Author Organization [facility] Address [facility] [place] [id number] Care Team Providers Care Director Of Nurses Registry Name Role Phone Patricia Garza APRN Primary Care Provider [phone] Reason for Referral * Consultation (Routine) - Closed Specialty Diagnoses / Procedures Referred By Contac t Referred To Contact Gastroenterology Diagnoses Hiatal hernia HREM Hiatal hernia Procedures HREM Patrice Cárdenas MD [facility] [place] [address] [facility] Gastro [address] [place] [address] Referral ID Status Reason Start Date Expiration Date V isits Requested Visits Authorized [id number] Closed Consult, Test & Treat 04/15/2020 04/15/2021 1 1 * Rehabilitation (Routine) - Specialty Diagnoses / Procedures Referred By Contac t Referred To Contact Pulmonology Diagnoses Hiatal hernia Patrice Cárdenas MD [facility] [address] [facility] [place] [address] Referral ID Status Reason Start Date Expiration Date V isits Requested Visits Authorized [id number] Evaluate and Treat 04/15/2020 04/15/2021 36 36 Reason for Visit * Reason Comments Hiatal Hernia * Consultation (Routine) - Closed Specialty Diagnoses / Procedures Referred By Contac t Referred To Contact Thoracic Surgery Diagnoses Hiatal hernia Large hiatal hernia, causing significant shortness of breath as well as acid reflux. ? of surgical candidate Smitha Concepcion MD [address] [place] [address] Patrice Cárdenas MD [facility] [place] [address] Referral ID Status Reason Start Date Expiration Date V isits Requested Visits Authorized [id number] Closed Consult, Test & Treat 04/02/2020 04/02/2021 1 1 Encounter Details Date Type Department Care Team (Late st Contact Info) Description 04/13/2020 2:00 PM EDT Office [place] [address] Patrice Cárdenas MD [facility] [place] [address] Hiatal hernia Social History Tobacco Use Types [...] esophageal motility than conventional techniques. Esophageal manometry (ici-QUP-ue-tree) is a test that shows whether your [...] Outpatient Consultation Note MD Traci Ortiz PA-C [place] [address] FAX: Date of Consultation: 04/13/2020 This consultation [...] surgical repair ~ 4 years ago in [place] but one week prior had a CVA [...] file Gets together: Not on file Attends uatsdin service: Not on file Active member of [...] questions Traci Montague PA-C 04/13/2020 Thoracic Surgery [facility] I have seen the patient and reviewed [...] gangrene documented in this encounter Care Teams Director Of Nurses Registry Relationship Specialty Start Date End Date Patricia Garza, MEDICAL EQUIPMENT REPAIRER [address] [place] [address] PCP - General Internal Medicine 04/02/20 documented as of this encounter
--- OUTSIDE RECORDS SUMMARY | 2024-06-07 10:41 | XMS_ITS | Encounter Summary ---
Author Organization [facility] [place] [address] Care Team Providers Care Cash Processor Name Role Phone Patricia Garza APRN Primary Care Provider [phone] Reason for Visit * Consultation (Urgent) - Closed Specialty Diagnoses / Procedures Referred By Contac t Referred To Contact Gastroenterology Diagnoses Hiatal hernia [facility] - HH Procedures HIGH RESOLUTION ESOPHAGEAL MANOMETRY [facility] - HH Hal Marroquin MD [facility] [place] [address] [facility] [place] [address] [place] [address] Referral ID Status Reason Start Date Expiration Date V isits Requested Visits Authorized [id number] Closed Test Only 04/26/2021 04/26/2022 1 1 Encounter Details Date Type Department Care Team (Late st Contact Info) Description 05/23/2021 11:00 AM EDT Procedure visit [place] [address] Hiatal hernia Social History Tobacco Use Types [...] MANOMETRY PROCEDURE NOTE Patient: Linda Fuller Address: [place] [address] : 1940 Date of service: 05/23/2021 Indication: [...] and proximal extent located at n/a cm. Ear Mold Laboratory Technician swallow: Impressions based on [place] Classification v4.0: The catheter tip did not [...] MD, FRCPC Section of Gastroenterology and Hepatology [facility] [place] [address] V: [phone] F: [phone] CC/EC: Patricia Garza APRN [address] [place] [address] documented in this encounter Plan of Treatment Scheduled Referrals Name Type Priority Associated Diagnoses Orde r Schedule REFERRAL TO ENDOSCOPY PROCEDURE Outpatient Referral Routine Hiatal hernia Ordered: 04/26/2021 documented as of this encounter Visit Diagnoses Diagnosis Hiatal hernia Diaphragmatic hernia without mention of obstruction or gangrene documented in this encounter Care Teams Cash Processor Relationship Specialty Start Date End Date Patricia Garza APRN [address] [place] [address] PCP - General Internal Medicine 04/02/20 documented as of this encounter
--- OUTSIDE RECORDS SUMMARY | 2024-06-07 10:41 | XMS_ITS | Encounter Summary ---
[place] [address] Care Team Providers Care Clinical Specialist Medical Device Name Role Phone Patricia Garza APRN Primary Care Provider [phone] Encounter Details Date Type Department Care Team (Late st Contact Info) Description 06/08/2021 Orders [place] [address] Livier Chaney RN Hiatal hernia; Atrial fibrillation, [...] examination documented in this encounter Care Teams Clinical Specialist Medical Device Relationship Specialty Start Date End Date Patricia Garza APRN [address] [place] [address] PCP - General Internal Medicine 04/02/20 documented as of this encounter
--- OUTSIDE RECORDS SUMMARY | 2024-06-07 10:41 | XMS_ITS | Encounter Summary ---
Author Organization [facility] [place] [id number] Care Team Providers Care Branch Manager Trainee Name Role Phone Patricia Garza APRN Primary Care Provider Reason for Referral * Consultation (Routine) - Duplicate Referral Specialty Diagnoses / Procedures Referred By Contac t Referred To Contact Gastroenterology Diagnoses Hiatal hernia Hal Marroquin MD [facility] [place] [address] [facility] [place] [address] [place] [address] Referral ID Status Reason Start Date Expiration Date Visits Requested Visits Authorized [id number] Duplicate Referral Test Only 03/14/2021 03/14/2022 1 1 * Diagnostic Test (Routine) - Closed Specialty Diagnoses / Procedures Referred By Contac t Referred To Contact Radiology Diagnoses Hiatal hernia Procedures XR Fluoro Barium Swallow (Single Contrast) Hal Marroquin MD [facility] [place] [address] [facility] Rad Xray [address] [place] [address] [place] [address] Referral ID Status Reason Start Date Expiration Date V isits Requested Visits Authorized [id number] Closed Specialty Service Requested 03/14/2021 09/14/2022 1 1 * Rehabilitation (Routine) - Closed Specialty Diagnoses / Procedures Referred By Amanuel t Referred To Contact Pulmonology Diagnoses Hiatal hernia Hal Marroquin MD [facility] [place] [address] [facility] [place] [address] Referral ID Status Reason Start Date Expiration Date V isits Requested Visits Authorized [id number] Closed Evaluate and Treat 03/14/2021 03/14/2022 36 36 Encounter Details Date Type Department Care Team (Late st Contact Info) Description 03/14/2021 Orders [place] [address] Livier Chaney RN Hiatal hernia Social History [...] who have questions please contact the health furnace caretaker that requested your imaging first. ? 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 TECHNIQUE: Single contrast esophagram was performed. Fluoroscopic spot films were obtained. Fluoro time: 2.30 minutes COMPARISON: CT chest abdomen pelvis 01/10/2020 FINDINGS: Electrical Engineering Manager images demonstrate clear lungs. No effusion or [...] COMPARISON: CT chest abdomen pelvis 01/10/2020 FINDINGS: Electrical Engineering Manager images demonstrate clear lungs. No effusion or [...] patients who have questions please contactthe health furnace caretaker that requested your imaging first. Hal Marroquin MD IMG FLUORO ORDERABLE S documented in this encounter Visit Diagnoses Diagnosis Hiatal hernia Diaphragmatic hernia without mention of obstruction or gangrene Hiatal hernia Diaphragmatic hernia without mention of obstruction or gangrene documented in this encounter Care Teams Branch Manager Trainee Relationship Specialty Start Date End Date Patricia Garza APRN [address] [place] [address] PCP - General Internal Medicine 04/02/20 documented as of this encounter
--- OUTSIDE RECORDS SUMMARY | 2024-06-07 10:41 | XMS_ITS | Encounter Summary ---
[place] [address] Care Team Providers Care Pastrycook'S Assistant Name Role Phone Patircia Garza APRN Primary Care Provider Encounter Details Date Type Department Care Team (Late st Contact Info) Description 12/03/2020 Telephone [place] [address] Juan Stovall Social History Tobacco Use Types [...] can be handled by: Any motility lab operating room scheduler. documented in this encounter Plan of Treatment Not on file documented as of this encounter Visit Diagnoses Not on filedocumented in this encounter Care Teams Pastrycook'S Assistant Relationship Specialty Start Date End Date Patricia Garza APRN [address] [place] [address] PCP - General Internal Medicine 04/02/20 documented as of this encounter
--- OUTSIDE RECORDS SUMMARY | 2024-06-07 10:41 | XMS_ITS | Encounter Summary ---
Author Organization [facility] [place] [address] Care Team Providers Care Medical Aide Name Role Phone Unavailable Primary Care Provider Unavailabl e Encounter Details Date Type Department Care Team (Late st Contact Info) Description 01/10/2020 Ancillary Procedure [place] [address] Hal Marroquin MD [facility] [place] [address] Social History Tobacco Use Types Packs/Day Years [...] Abdomen Pelvis (01/10/2020 12:00 AM EDT) Narrative [facility] - 04/12/2020 5:29 PM EDT This exam is auto-finalizing. It's purpose is for storage only. Hal Marroquin MD IMG FILM LIBRARY ORD ERABLES HUGH Escobar documented in this encounter Visit Diagnoses Not on filedocumented in this encounter
--- OUTSIDE RECORDS SUMMARY | 2024-06-07 10:41 | XMS_ITS | Encounter Summary ---
[place] [address] Care Team Providers Care Design Printer Balloon Name Role Phone Patricia Garza APRN Primary Care Provider Encounter Details Date Type Department Care Team (Late st Contact Info) Description 08/12/2021 Telephone [place] [id number] Livier Chaney, RN Social History Tobacco Use [...] on filedocumented in this encounter Care Teams Design Printer Balloon Relationship Specialty Start Date End Date Patricia Garza APRN [address] [place] [address] PCP - General Internal Medicine 04/02/20 documented as of this encounter
--- OUTSIDE RECORDS SUMMARY | 2024-06-07 10:41 | XMS_ITS | Encounter Summary ---
[place] [address] Care Team Providers Care Quality Assurance Name Role Phone Patricia Garza APRN Primary Care Provider [phone] Encounter Details Date Type Department Care Team (Late st Contact Info) Description 07/01/2021 Telephone [place] [phone] Kenzie Crawford Social History Tobacco Use Types [...] 07/01/2021 12:04 PM EDT Referral faxed to [facility] for Cardiology to see documented in this encounter Plan of Treatment Not on file documented as of this encounter Visit Diagnoses Not on filedocumented in this encounter Care Teams Quality Assurance Relationship Specialty Start Date End Date Patricia Garza APRN [address] [place] [address] PCP - General Internal Medicine 04/02/20 documented as of this encounter
--- OUTSIDE RECORDS SUMMARY | 2024-06-07 10:41 | XMS_ITS | Encounter Summary ---
Author Organization [facility] Address [facility] [place] [address] Care Team Providers Care Open Hearth Helper Name Role Phone Patricia Garza APRN Primary Care Provider Reason for Referral * Diagnostic Test (Routine) - Closed Specialty Diagnoses / Procedures Referred By Contac t Referred To Contact Radiology Diagnoses Hiatal hernia Procedures XR Fluoro Barium Swallow (Single Contrast) Hal Marroquin MD [facility] [place] [address] [facility] Rad Xray [address] [place] [address] [place] [address] Referral ID Status Reason Start Date Expiration Date V isits Requested Visits Authorized [id number] Closed Specialty Service Requested 03/14/2021 09/14/2022 1 1 Reason for Visit * Diagnostic Test (Routine) - Closed Specialty Diagnoses / Procedures Referred By Contac t Referred To Contact Radiology Diagnoses Hiatal hernia Procedures XR Fluoro Barium Swallow (Single Contrast) Hal Marroquin MD [facility] [place] [address] [facility] Xray [address] [place] [address] [place] [address] Referral ID Status Reason Start Date Expiration Date V isits Requested Visits Authorized [id number] Closed Specialty Service Requested 03/14/2021 09/14/2022 1 1 Encounter Details Date Type Department Care Team (Latest Contact Info) Description 04/26/2021 1:18 PM EDT - 04/26/2021 11:59 PM EDT Hospital Encounter XRay at [address] [place] [address] Hal Marroquin MD [facility] [place] [address] Hiatal hernia Discharge Disposition: Home Social History [...] nurse that requested your imaging first. ? 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 TECHNIQUE: Single contrast esophagram was performed. Fluoroscopic spot films were obtained. Fluoro time: 2.30 minutes COMPARISON: CT chest abdomen pelvis 01/10/2020 FINDINGS: Junior Database Administrator images demonstrate clear lungs. No effusion or [...] COMPARISON: CT chest abdomen pelvis 01/10/2020 FINDINGS: Junior Database Administrator images demonstrate clear lungs. No effusion or [...] care nurse that requested your imaging first. Hal Marroquin [...] mLs documented in this encounter Care Teams Open Hearth Helper Relationship Specialty Start Date End Date Patricia Garza APRN [address] [place] [address] PCP - General Internal Medicine 04/02/20 documented as of this encounter
--- OUTSIDE RECORDS SUMMARY | 2024-06-07 10:41 | XMS_ITS | Encounter Summary ---
[place] [address] Care Team Providers Care Dining Room Host/Hostess Name Role Phone Patricia Garza APRN Primary Care Provider Encounter Details Date Type Department Care Team (Late st Contact Info) Description 07/26/2021 Telephone [place] [phone] Luis E Meyer Social History Tobacco Use [...] plan. Narcisa plans to come from [place] for the surgery, sh just needs direction. Spoke to Livier Thoracic RN who indicated that [facility] cardiology is scheduling a coronary CTA and echo that needs to be completed prior to surgery. This information was relayed to Ms. Palumbo, who will contact [facility] cardiology. Ms. Palumbo was advised to contact Thoracic Surgery with any additional questions or concerns. documented in this encounter Plan of Treatment Not on file documented as of this encounter Visit Diagnoses Not on filedocumented in this encounter Care Teams Dining Room Host/Hostess Relationship Specialty Start Date End Date Patricia Garza APRN [address] [place] [address] PCP - General Internal Medicine 04/02/20 documented as of this encounter
--- NOTE | 2024-06-07 10:45 | DI.VRAD_ITS ---
PROCEDURE INFORMATION: Exam: XR Chest Exam date and time: 06/07/2024 10:31 AM Age: 84 years old Clinical indication: Fever TECHNIQUE: Imaging protocol: Radiologic exam of the chest. Views: 1 view. COMPARISON: CR XR PORTABLE CHEST AP 01/01/2024 6:38 PM FINDINGS: Lungs: No focal consolidation seen. Pleural spaces: No large pleural effusion seen. Heart/Mediastinum: Cardiac silhouette magnified by AP technique. Bones/joints: Grossly unremarkable. IMPRESSION: No acute findings to explain reported symptoms. Dictated and Authenticated by: Erika Hyde MD. Ordering:STEPHANIA So MD
[2024-06-07 11:07] LABS: Procalcitonin < 0.1 ng/mL
[2024-06-07] MEDS: Normal Saline 500 ML IV (11:18)
[2024-06-07] MEDS: cefTRIAXone 2 GM/50 ML BAG IVPB (11:18)
[2024-06-07 11:29] LABS: Bilirubin Negative (Negative); Blood Trace-intact (Negative); Clarity Clear (Clear); Glucose Negative (Negative); Ketones Negative (Negative); Leukocyte Esterase Negative (Negative); Nitrite Negative (Negative); Urobilinogen 0.2 mg/dL (Up to 0.2)
[2024-06-07 11:31] LABS: ALT 11 U/L (14-59); AST 9 U/L (15-37); Albumin 3.6 g/dL (3.4-5.0); Alkaline Phosphatase 83 U/L (46-116); Anion Gap 8.5 mmol/L (3-11); BUN 20 mg/dL (7-18); Bilirubin, Total 0.43 mg/dL (0.2-1.0); CO2 27.5 mmol/L (21.0-32.0); CREATININE 1.1 mg/dL (0.55-1.02); Calcium 8.7 mg/dL (8.5-10.1); Chloride 105 mmol/L (98-107); Estimated GFR 49.24 (mL/min/1.73m2); Glucose 89 mg/dL (74-106); Magnesium 1.7 mg/dL (1.8-2.4); Potassium 4.3 mmol/L (3.5-5.1); Sodium 141 mmol/L (136-145); Total Protein 6.6 g/dL (6.4-8.2)
[2024-06-07 11:38] LABS: Bacteria Negative HPF (Negative); C & S Indicated? No; Casts Negative LPF (Negative); Crystals Negative HPF (Negative); Epithelial Cells Negative HPF (Negative); Mucus Negative (Negative); WBC 0-2 HPF (0-5)
[2024-06-07 12:54] LABS: Influenza A PCR Negative (Negative); Influenza B PCR Negative (Negative); RSV PCR Negative (Negative)
[2024-06-07 12:56] LABS: Source Nasopharynx
[2024-06-07 12:57] LABS: COVID-19 PCR Positive (Negative)
--- NOTE | 2024-06-07 13:25 | ED.GENADUL_ITS ---
Discharge Plan Disposition Patient Disposition: Home Condition: Stable Discharge Details Clinical Impression: COVID-19 Primary Care Provider: Patricia Garza ED Provider: Saray Delgado Home Meds and New Rx's Prescriptions: Continued diclofenac sodium 1 % gel 2 - 4 g topical QID PRN (Reason: pain) Qty: 100 0RF Rx Instructions: 2G for upper extremity joints; 4G for lower extremity joints acetaminophen 500 mg tablet 500 mg PO Q6H PRN (Reason: pain) Prolia 60 MG/1 ML syringe 60 mg SQ [id number] Patient Comments: 07/09/13 per pt not due until next month, DCW calcium-vitamin D3-vitamin K 1 EACH tablet,chewable 1 ea PO DAILY prochlorperazine maleate 10 mg tablet 5 mg PO BID PRN (Reason: nausea and vomiting) Qty: 20 0RF Rx Instructions: 1/2 to 1 tablet twice a day as needed for nausea/vomiting amlodipine 5 mg tablet 5 mg PO DAILY Qty: 90 3RF apixaban 2.5 mg tablet 2.5 mg PO BID Qty: 180 3RF bupropion HCl 300 mg tablet extended release 24 hr 300 mg PO QAM Qty: 90 3RF fenofibrate nanocrystallized 48 mg tablet 48 mg PO DAILY Qty: 90 3RF metoprolol succinate 50 mg tablet extended release 24 hr See Rx Instructions .ROUTE .COMPLEX Qty: 90 3RF Dose Instruction: TAKE 1 TABLET BY MOUTH DAILY Rx Instructions: TAKE 1 TABLET BY MOUTH DAILY omeprazole 40 mg capsule,delayed release(DR/EC) See Rx Instructions .ROUTE .COMPLEX Qty: 180 3RF Dose Instruction: TAKE 1 CAPSULE BY MOUTH TWICE A DAY Rx Instructions: TAKE 1 CAPSULE BY MOUTH TWICE A DAY guar gum Powder 0.25 tbsp PO DAILY Patient Comments: BENEFIBER Rx Instructions: mix into at least 4 oz water or juice before administering fluticasone furoate-vilanterol [Breo Ellipta] 200-25 mcg/dose Blister With Device 1 inh INHALATION DAILY albuterol sulfate 90 mcg/actuation Hfa Aerosol Inhaler 2 puff INHALATION Q6H PRN PRN Discharge Instructions Instructions: COVID-19 ED Additional Instructions: Take the molnupiravir as prescribed Tylenol 650 every 6 hours for fever control, do not exceed 3 g daily At least eight 8 ounce glasses of water daily Please return with new or worsening complaints refer to enclosed packet information use walker with ambulation Referrals: Patricia Garza NP [Primary Care Provider] - 1 day HPI General Date/Time Provider Initiated Documentation: 06/07/24 10:12 . HPI Narrative: This 84-year-old female with history of depression atrial fibrillation, hypokalemia, CVA presents with report of weakness and lightheadedness which started today per patient. Has had cough and some increased urination per patient. Denies any falls or injuries. States she was having trouble ambulating secondary to weakness this morning. Lives independently per patient. Unknown fever or chills Related Data Home Medications ?Medication ?Instructions ?Recorded ?Confirmed calcium-vitamin D3-vitamin K 500 1 ea PO DAILY 11/16/16 06/07/24 mg-1,000 unit-40 mcg chewable tablet denosumab 60 mg/mL subcutaneous 60 mg SQ [id number] 11/16/16 06/07/24 syringe (Prolia) albuterol sulfate 90 mcg/actuation 2 puff inhalation Q6H PRN PRN 12/29/22 06/07/24 aerosol inhaler fluticasone furoate 200 1 inh inhalation DAILY 12/29/22 06/07/24 mcg-vilanterol 25 mcg/dose inhalation powder (Breo Ellipta) acetaminophen 500 mg tablet 500 mg PO Q6H PRN pain 02/01/23 06/07/24 prochlorperazine maleate 10 mg 5 mg (1/2 x 10 mg) PO BID PRN 03/05/23 06/07/24 tablet nausea and vomiting #20 tabs diclofenac sodium 1 % topical gel 2 - 4 g topical QID PRN pain #100 04/27/23 06/07/24 grams amlodipine 5 mg tablet 5 mg PO DAILY #90 tabs 02/19/24 06/07/24 apixaban 2.5 mg tablet 2.5 mg PO BID #180 tabs 02/19/24 06/07/24 bupropion HCl 300 mg 24 hr tablet, 300 mg PO QAM #90 tabs 02/19/24 06/07/24 extended release fenofibrate nanocrystallized 48 mg 48 mg PO DAILY #90 tabs 02/19/24 06/07/24 tablet metoprolol succinate 50 mg See Rx Instructions .Route 02/19/24 06/07/24 tablet,extended release 24 hr .COMPLEX #90 tabs omeprazole 40 mg capsule,delayed See Rx Instructions .Route 02/19/24 06/07/24 release .COMPLEX #180 caps guar gum 0.25 tbsp PO DAILY 02/27/24 06/07/24 Previous Rx's ?Medication ?Instructions ?Recorded prochlorperazine maleate 10 mg 5 mg (1/2 x 10 mg) PO BID PRN 03/05/23 tablet nausea and vomiting #20 tabs diclofenac sodium 1 % topical gel 2 - 4 g topical QID PRN pain #100 04/27/23 grams amlodipine 5 mg tablet 5 mg PO DAILY #90 tabs 02/19/24 apixaban 2.5 mg tablet 2.5 mg PO BID #180 tabs 02/19/24 bupropion HCl 300 mg 24 hr tablet, 300 mg PO QAM #90 tabs 02/19/24 extended release fenofibrate nanocrystallized 48 mg 48 mg PO DAILY #90 tabs 02/19/24 tablet metoprolol succinate 50 mg See Rx Instructions .Route 02/19/24 tablet,extended release 24 hr .COMPLEX #90 tabs omeprazole 40 mg capsule,delayed See Rx Instructions .Route 02/19/24 release .COMPLEX #180 caps Allergies Allergy/AdvReac Type Severity Reaction Status Date / Time Penicillins Allergy Unknown Swelling/Ed Verified 06/07/24 10:05 bobo/Itching nitrofurantoin AdvReac Severe Diarrhea Verified 06/07/24 10:05 ciprofloxacin (From Cipro) AdvReac Intermediate Dizziness/L Verified 06/07/24 10:05 ighthead Sulfa (Sulfonamide AdvReac Unknown GI symptoms Verified 06/07/24 10:05 Antibiotics) General Stated Complaint: AMS/LOC HAILEE: 2 Exam Narrative Exam Narrative: Alert and oriented 84-year-old female in no acute distress, moist mucous membranes, uvula midline, no meningismus, pupils equal round reactive to light and accommodation, lungs clear to auscultation, cardiac rate rhythm regular, no abdominal tenderness, no CVA tenderness, no rashes or lesions alert and oriented x 3, no peripheral edema, no calf swelling or tenderness Course Vital Signs Vital signs: Vital Signs Temperature 38.7 C H 06/07/24 10:00 Pulse 82 06/07/24 10:00 Respiratory Rate 18 06/07/24 10:00 Blood Pressure 184/98 H 06/07/24 10:00 Pulse Oximetry 100 06/07/24 10:00 Temperature 36.8 C 06/07/24 13:08 Temperature Source Temporal Artery Scan 06/07/24 13:08 Pulse 80 06/07/24 12:46 Pulse 79 06/07/24 13:00 Respiratory Rate 16 06/07/24 13:08 Respiratory Effort Normal 06/07/24 10:26 Respiratory Depth Normal 06/07/24 10:26 Blood Pressure 163/76 H 06/07/24 12:46 Blood Pressure Mean 102 06/07/24 12:46 Pulse Oximetry 98 06/07/24 13:08 Pain Level 0 06/07/24 10:26 Lab/Test Results Lab/Test Results: 06/07/24 11:00 Urine - Cath Straight Urine Culture - Pending 06/07/24 10:45 Blood Blood Culture - Pending 06/07/24 10:23 Blood Blood Culture - Pending Laboratory Tests Range/Units 06/07/24 06/07/24 06/07/24 10:23 10:45 11:00 WBC (4.4-10.8) 10^3/uL 6.25 RBC (3.93-5.22) 10^6/uL 4.31 Hgb (11.2-15.7) g/dL 13.0 Hct (36.0-46.0) % 40.4 MCV (80-95) fL 94 MCH (27.0-33.0) pg 30.2 MCHC (32.0-36.0) % 32.2 RDW (11.7-14.6) % 13.6 Plt Count (130-400) 10^3/uL 265 MPV (8.0-11.0) fL 9.1 Immature Gran % % 0.5 Neutrophils % % 85.1 Lymphocytes % % 3.8 Monocytes % % 7.2 Eosinophils % % 2.4 Basophils % % 1.0 Nucleated RBC % (0.0-0.3) % 0.0 Absolute Neutrophils (1.2-6.7) 10^3/uL 5.32 Absolute Lymphocytes (1.2-3.4) 10^3/uL 0.24 L Absolute Monocytes (0.1-0.8) 10^3/uL 0.45 Absolute Eosinophils (0.0-0.7) 10^3/uL 0.15 Absolute Basophils (0.0-0.2) 10^3/uL 0.06 VBG Lactate (0.6-1.4) mmol/L 1.4 Sodium Cancelled Cancelled Potassium Cancelled Cancelled Chloride Cancelled Cancelled Carbon Dioxide Cancelled Cancelled Anion Gap Cancelled Cancelled BUN Cancelled Cancelled Creatinine Cancelled Cancelled Est GFR (CKD-EPI 2020) Cancelled Cancelled Glucose Cancelled Cancelled Calcium Cancelled Cancelled Magnesium Cancelled Cancelled Total Bilirubin Cancelled Cancelled AST Cancelled Cancelled ALT Cancelled Cancelled Alkaline Phosphatase Cancelled Cancelled Total Protein Cancelled Cancelled Albumin Cancelled Cancelled Procalcitonin ng/mL < 0.1 Urine Color (Yellow) Yellow Urine Clarity (Clear) Clear Urine pH (5-8) 8.0 Ur Specific [place] (1.005-1.025) 1.020 Urine Protein (Neg-Trace) mg/dL 30 H Urine Ketones (Negative) mg/dL Negative Urine Blood (Negative) Trace-intact H Urine Nitrite (Negative) Negative Urine Bilirubin (Negative) Negative Urine Urobilinogen (Up to 0.2) mg/dL 0.2 Ur Leukocyte Esterase (Negative) Negative Urine RBC (0-2) HPF 3-5 H Urine WBC (0-5) HPF 0-2 Ur Epithelial Cells (Negative) HPF Negative Urine Crystals (Negative) HPF Negative Urine Bacteria (Negative) HPF Negative Urine Casts (Negative) LPF Negative Urine Mucus (Negative) Negative Ur Culture Indicated? No Urine Glucose (Negative) mg/dL Negative COVID-19 Source SARS-CoV-2 (PCR) (Negative) Influenza Type A (PCR) (Negative) Influenza Type B (PCR) (Negative) RSV (PCR) (Negative) Range/Units 06/07/24 06/07/24 11:10 12:05 WBC (4.4-10.8) 10^3/uL RBC (3.93-5.22) 10^6/uL Hgb (11.2-15.7) g/dL Hct (36.0-46.0) % MCV (80-95) fL MCH (27.0-33.0) pg MCHC (32.0-36.0) % RDW (11.7-14.6) % Plt Count (130-400) 10^3/uL MPV (8.0-11.0) fL Immature Gran % % Neutrophils % % Lymphocytes % % Monocytes % % Eosinophils % % Basophils % % Nucleated RBC % (0.0-0.3) % Absolute Neutrophils (1.2-6.7) 10^3/uL Absolute Lymphocytes (1.2-3.4) 10^3/uL Absolute Monocytes (0.1-0.8) 10^3/uL Absolute Eosinophils (0.0-0.7) 10^3/uL Absolute Basophils (0.0-0.2) 10^3/uL VBG Lactate (0.6-1.4) mmol/L Sodium 141 Potassium 4.3 Chloride 105 Carbon Dioxide 27.5 Anion Gap 8.5 BUN 20 H Creatinine 1.1 H Est GFR (CKD-EPI 2020) 49.24 Glucose 89 Calcium 8.7 Magnesium 1.7 L Total Bilirubin 0.43 AST 9 L ALT 11 L Alkaline Phosphatase 83 Total Protein 6.6 Albumin 3.6 Procalcitonin ng/mL Urine Color (Yellow) Urine Clarity (Clear) Urine pH (5-8) Ur Specific [place] (1.005-1.025) Urine Protein (Neg-Trace) mg/dL Urine Ketones (Negative) mg/dL Urine Blood (Negative) Urine Nitrite (Negative) Urine Bilirubin (Negative) Urine Urobilinogen (Up to 0.2) mg/dL Ur Leukocyte Esterase (Negative) Urine RBC (0-2) HPF Urine WBC (0-5) HPF Ur Epithelial Cells (Negative) HPF Urine Crystals (Negative) HPF Urine Bacteria (Negative) HPF Urine Casts (Negative) LPF Urine Mucus (Negative) Ur Culture Indicated? Urine Glucose (Negative) mg/dL COVID-19 Source Nasopharynx SARS-CoV-2 (PCR) (Negative) Positive A Influenza Type A (PCR) (Negative) Negative Influenza Type B (PCR) (Negative) Negative RSV (PCR) (Negative) Negative Medical Decision Making 84-year-old female presenting with feeling weak and cough for the past 12 hours. Chest x-ray, urinalysis, and labs are reassuring. COVID-positive which I suspect is the source of patient's symptoms. Ambulatory trial was performed and successful, patient was steady with her walker which is her baseline. She does live independently but has family close by who will check on her regularly. I will prescribe molnupiravir as patient is on the first day of symptoms. At this time patient is not hypoxic, tachypneic and is in no distress, she is ambulatory with steady state gait and is encouraged to take Tylenol and keep yourself hydrated. She is given very low threshold to return should she have new or worsening complaints. I did review the interpretation from radiology regarding patient's chest x-ray that did not show evidence of obvious infiltrate. I reviewed patient's labs and her urinalysis personally and I think she stable for discharge home at this time Quality:SDOH Health Related Social Needs: No Data to Display PFSH All Active Problems (Updated 06/07/24 @ 13:23 by MANDY Vargas) COVID-19 (Acute) Acute on chronic renal insufficiency (Acute) Pes anserinus bursitis of left knee (Acute) DEPO MEDROL 06/04/23 Depression (Chronic) Falls frequently (Acute) Traumatic rupture of right quadriceps tendon (Acute 12/29/22) s/p repair Dr. Dixon Degenerative joint disease of right hip (Acute) POCUS INJECTION 03/13/24 Painful total knee replacement, right (Acute) s/p revision of patellar component Dr. Dixon DOS: 09/06/22 Status post right knee replacement (Acute) Regurgitation and rechewing (Acute ~10/2021) 12/13/21 [facility] [place] gastric emptying scan ordered and consult with Bookkeeper Assistant Lung nodule < 6cm on CT (Acute) LEWIS (dyspnea on exertion) (Acute) Paraesophageal hernia (Acute) Urinary incontinence (Acute) Vomiting (Acute) Fall (Acute) Rib pain on left side (Acute) Left shoulder pain (Acute) Iliotibial band syndrome of right side (Acute) Status post total right knee replacement (Acute 11/20/11) Anxiety and depression (Chronic 09/05/17) Anticoagulant long-term use (Acute) Cough (Acute) Wheeze (Acute) Hiatal hernia (Chronic) Adjustment disorder, unspecified (Acute 11/16/16) Atrial fibrillation (Chronic 01/22/18) Essential hypertension (Acute 04/28/16) Gastroesophageal reflux disease (Chronic 04/28/16) Due to Hiatial Hernia History of CVA (cerebrovascular accident) (Acute 10/24/15) Dry Stroke, 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 per Dr. Addison Shore 04/25/2016 Closed extra-articular fracture of distal end of right radius (01/31/17) Dehydration Gastroenteritis Surgical History Status post total left knee replacement H/O endoscopy (10/24/21) S/P repair of paraesophageal hernia (08/15/21) [facility] [place]acic Open Carpal Tunnel release right Cholecystectomy (01/10/18) Extraction of cataract Family History Mother Stroke Father Neoplasm Grandmother , CVA No problems noted. Brother Diabetes Brother Diabetes Brother Diabetes Brother Diabetes Brother Diabetes Brother Diabetes Social History Smoking/Tobacco Use Status: Former Tobacco Use Quit Date: 10/29/85 Tobacco: How many years used: 25 Smoking risk assessment performed?: Yes Alcohol Intake: never Drug use: Never Substance use type: does not use Household members: none Housing: assisted living facility Number of Children: 4 Current gender identity: female What type of physical activity do you participate in: none Do you feel safe at home: Yes Do you feel safe in your relationship?: Yes
[2024-06-07] MEDS: Magnesium Oxide 400 MG TAB 800 MG PO (13:29)
--- NOTE | 2024-06-12 11:35 | ED.FU.B_ITS ---
Date of service: 06/07/24 Follow Up Plan: I reviewed blood cultures drawn on 06/07/2024. Blood cultures growing: Organism 1 STAPHYLOCOCCUS EPIDERMIDIS Organism 2 Staph hominis ssp hominis I reviewed medical record: Patient positive for COVID. No leukocytosis. Patient was discharged home. I contacted the patient who notes she is doing well but has some dysgeusia. No fevers. Suspect contaminated specimen. I did contact the patient's PCP, Dr. Delarosa (covering), discussed ED presentation and course, she will ensure timely follow- up. I advised the patient to return immediately for any worsening or new concerning symptoms and to follow-up with PCP.
--- NOTE | 2024-06-12 11:41 | NUR.NOTE ---
pts chart accessed to follow up that positive cultures were addressed and a provider followed up after receiving results. Nursing Note:
== END 2024-06-07 14:17 | disposition home or self-care (01) ==
PROVIDERS: Emergency Provider Physician Assistant; PCP Nurse Practitioner
DX: U07.1 COVID-19 (principal); I10 Essential (primary) hypertension; I48.91 Unspecified atrial fibrillation; Z79.01 Long term (current) use of anticoagulants; Z86.73 Personal history of transient ischemic attack (TIA), and cerebral infarction without residual deficits; Z87.891 Personal history of nicotine dependence
CPT/HCPCS: 36415; 80053; 84145; 87040; 87077; 87637; 93005; 96361; 96365; 96368; 99284; 71045; 81003; 81015; 83605; 83735; 85025; 87086; 87186; 93010; J0131; J0696

== ENCOUNTER 2024-09-30 02:09 | Observation (INO) | payer MEDICARE, MEDICAID, SELFPAY ==
[2024-09-30] VITALS (42 sets, daily range): BP systolic 114–242; BP diastolic 69–211; PULSE 60–91; RESP 12–32; TEMP 36.1–37; O2SAT 84–98
--- NOTE | 2024-09-30 02:19 | W.ED.GENAD ---
Discharge Plan Discharge Details Chief Complaint: Dizzy/Sync Clinical Impression: UTI (urinary tract infection) Primary Care Provider: Patricia Garza ED Provider: Jose Alas Meds and New Rx's Prescriptions: No Action diclofenac sodium 1 % gel 2 - 4 g topical QID PRN (Reason: pain) Qty: 100 0RF Rx Instructions: 2G for upper extremity joints; 4G for lower extremity joints acetaminophen 500 mg tablet 500 mg PO Q6H PRN (Reason: pain) Prolia 60 MG/1 ML syringe 60 mg SQ [id number] Patient Comments: 07/09/13 per pt not due until next month, DCW calcium-vitamin D3-vitamin K 1 EACH tablet,chewable 1 ea PO DAILY amlodipine 5 mg tablet 5 mg PO DAILY Qty: 90 3RF apixaban 2.5 mg tablet 2.5 mg PO BID Qty: 180 3RF bupropion HCl 300 mg tablet extended release 24 hr 300 mg PO QAM Qty: 90 3RF fenofibrate nanocrystallized 48 mg tablet 48 mg PO DAILY Qty: 90 3RF metoprolol succinate 50 mg tablet extended release 24 hr See Rx Instructions .ROUTE .COMPLEX Qty: 90 3RF Dose Instruction: TAKE 1 TABLET BY MOUTH DAILY Rx Instructions: TAKE 1 TABLET BY MOUTH DAILY omeprazole 40 mg capsule,delayed release(DR/EC) See Rx Instructions .ROUTE .COMPLEX Qty: 180 3RF Dose Instruction: TAKE 1 CAPSULE BY MOUTH TWICE A DAY Rx Instructions: TAKE 1 CAPSULE BY MOUTH TWICE A DAY guar gum Powder 0.25 tbsp PO DAILY Patient Comments: BENEFIBER Rx Instructions: mix into at least 4 oz water or juice before administering fluticasone furoate-vilanterol [Breo Ellipta] 200-25 mcg/dose Blister With Device 1 inh INHALATION DAILY albuterol sulfate 90 mcg/actuation Hfa Aerosol Inhaler 2 puff INHALATION Q6H PRN PRN HPI General Mode of arrival: EMS. Date/Time Provider Initiated Documentation: 09/30/24 02:19. Limitations to Documentation: no limitations. Information obtained by: patient, RN notes reviewed and old records reviewed. HPI Narrative: Patient presents to ED with complaint of dizziness, dry mouth, nausea or dry heaves. Reports symptoms have been ongoing for 1 day. Is unable to describe the dizziness with that she feels lightheaded versus spinning. Does report that she has had this previously. Is having difficulty ambulating because she feels dizzy especially with standing or walking. Called EMS tonight because she feels she is unable to care for herself at home safely. She was able to walk out to the ambulance as well as walk from the stretcher to the bed here. She denies any type of chest pain, shortness of breath, abdominal pain. She does report a mild headache. She denies any fever at home that she is aware of. Denies URI type symptoms. She has history of atrial fibrillation on anticoagulation. Related Data Home Medications ?Medication ?Instructions ?Recorded ?Confirmed calcium 500 mg-vitamin D3 1,000 1 ea PO DAILY 11/16/16 09/30/24 unit-vitamin K 40 mcg chewable tablet denosumab 60 mg/mL subcutaneous 60 mg SQ [id number] 11/16/16 09/30/24 syringe (Prolia) albuterol sulfate 90 mcg/actuation 2 puff inhalation Q6H PRN PRN 12/29/22 09/30/24 aerosol inhaler fluticasone furoate 200 1 inh inhalation DAILY 12/29/22 09/30/24 mcg-vilanterol 25 mcg/dose inhalation powder (Breo Ellipta) acetaminophen 500 mg tablet 500 mg PO Q6H PRN pain 02/01/23 09/30/24 diclofenac sodium 1 % topical gel 2 - 4 g topical QID PRN pain #100 04/27/23 09/30/24 grams amlodipine 5 mg tablet 5 mg PO DAILY #90 tabs 02/19/24 09/30/24 apixaban 2.5 mg tablet 2.5 mg PO BID #180 tabs 02/19/24 09/30/24 bupropion HCl 300 mg 24 hr tablet, 300 mg PO QAM #90 tabs 02/19/24 09/30/24 extended release fenofibrate nanocrystallized 48 mg 48 mg PO DAILY #90 tabs 02/19/24 09/30/24 tablet metoprolol succinate 50 mg See Rx Instructions .Route 02/19/24 09/30/24 tablet,extended release 24 hr .COMPLEX #90 tabs omeprazole 40 mg capsule,delayed See Rx Instructions .Route 02/19/24 09/30/24 release .COMPLEX #180 caps guar gum 0.25 tbsp PO DAILY 02/27/24 09/30/24 Previous Rx's ?Medication ?Instructions ?Recorded diclofenac sodium 1 % topical gel 2 - 4 g topical QID PRN pain #100 04/27/23 grams amlodipine 5 mg tablet 5 mg PO DAILY #90 tabs 02/19/24 apixaban 2.5 mg tablet 2.5 mg PO BID #180 tabs 02/19/24 bupropion HCl 300 mg 24 hr tablet, 300 mg PO QAM #90 tabs 02/19/24 extended release fenofibrate nanocrystallized 48 mg 48 mg PO DAILY #90 tabs 02/19/24 tablet metoprolol succinate 50 mg See Rx Instructions .Route 02/19/24 tablet,extended release 24 hr .COMPLEX #90 tabs omeprazole 40 mg capsule,delayed See Rx Instructions .Route 02/19/24 release .COMPLEX #180 caps Allergies Allergy/AdvReac Type Severity Reaction Status Date / Time Penicillins Allergy Unknown Swelling/Ed Verified 09/30/24 02:10 bobo/Itching nitrofurantoin AdvReac Severe Diarrhea Verified 09/30/24 02:10 ciprofloxacin (From Cipro) AdvReac Intermediate Dizziness/L Verified 09/30/24 02:10 ighthead Sulfa (Sulfonamide AdvReac Unknown GI symptoms Verified 09/30/24 02:10 Antibiotics) General Stated Complaint: Dizzy/Sync HAIELE: 3 Review of Systems Narrative: Per HPI Exam Narrative Exam Narrative: Const: Elderly female in NAD. VS per triage. HEENT: NC/AT. Normal facial exam. Eyes: EOMI with no nystagmus. Neck: Supple. Trachea midline. Lungs: Normal respiratory effort. Lungs are clear. Cor: irr/irr without murmur. Good radial pulses. GI: Soft/ND/NT. Neuro: A+O x 3. Normal speech, mentation, gait. Cranial nerves II - XII grossly intact. No gross motor or sensory deficit. Ext: No C/C/E. Course Vital Signs Vital signs: Vital Signs Temperature 97.3 F L 09/30/24 02:10 Pulse 74 09/30/24 02:10 Respiratory Rate 16 09/30/24 02:10 Blood Pressure 165/120 H 09/30/24 02:10 Pulse Oximetry 97 09/30/24 02:10 Temperature 97.3 F L 09/30/24 02:10 Temperature Source Temporal Artery Scan 09/30/24 02:10 Pulse 74 09/30/24 02:10 Respiratory Rate 16 09/30/24 02:10 Blood Pressure 165/120 H 09/30/24 02:10 Blood Pressure Position Sitting 09/30/24 02:10 Pulse Oximetry 97 09/30/24 02:10 Oxygen Delivery Method Room Air 09/30/24 02:10 Oxygen Flow Rate 0 09/30/24 02:10 Pain Level 5 09/30/24 02:10 Medical Decision Making Patient presenting to ED with complaint of dizziness which she cannot elaborate on, dry mouth, nausea with dry heaves for the last day. She reports increased dizziness while trying to walk. She was able to walk out to the ambulance and able to walk from stretcher to bed here. She reports having dizziness previously. She has mild headache otherwise no complaints of pain. She is rate controlled A-fib but elevated blood pressure. She is neurologically appears intact and non-focal. Will place IV and give ondansetron as well as 500 of fluid, oral meclizine. Will obtain EKG, noncontrast head CT, laboratory studies and urinalysis. 05:30 - Patient does report feeling a little better after fluids and medications. Still feels nauseated. CT head preliminary read by radiology with no acute intracranial process. Laboratory studies fairly unremarkable with a normal white count, hemoglobin, baseline kidney function, minor electrolyte abnormalities. Troponin is normal. Urinalysis positive for infection with 20-50 white cells on micro. Reviewed patient's advanced directives as well as COLST form. Had further discussion with the patient. She does confirm DNR/DNI status. She is agreeable to antibiotics. She is hesitant to go home as she lives alone. Plan will be to give IV ceftriaxone this morning and hold for PT eval to determine if safe for discharge home. Patient is agreeable to this plan. Medical Records Medical records reviewed: Yes I reviewed the patient's medical records. Lab Data Lab results reviewed: Yes I reviewed the patient's lab results. Lab results narrative: see [facility] ECG Data Attestation: I personally reviewed and interpreted this ECG (s) as follows: Prior ECG tracings: available for review Interpretation: see EKG/MDM PFSH All Active Problems (Updated 09/30/24 @ 05:32 by Jose Alas MD) UTI (urinary tract infection) (Acute) Acute on chronic renal insufficiency (Acute) Pes anserinus bursitis of left knee (Acute) DEPO MEDROL 06/04/23 Depression (Chronic) Falls frequently (Acute) Degenerative joint disease of right hip (Acute) POCUS INJECTION 03/13/24 Painful total knee replacement, right (Acute) s/p revision of patellar component Dr. Dixon DOS: 09/06/22 Regurgitation and rechewing (Acute ~10/2021) 12/13/21 [facility] [place], gastric emptying scan ordered and consult with [employer] Lung nodule < 6cm on CT (Acute) LEWIS (dyspnea on exertion) (Acute) Paraesophageal hernia (Acute) Urinary incontinence (Acute) Rib pain on left side (Acute) Left shoulder pain (Acute) Iliotibial band syndrome of right side (Acute) Anxiety and depression (Chronic 09/05/17) Anticoagulant long-term use (Acute) Hiatal hernia (Chronic) Adjustment disorder, unspecified (Acute 11/16/16) Gastroesophageal reflux disease (Chronic 04/28/16) Due to Hiatial Hernia Osteoporosis (Chronic 02/13/17) left hip T SCORE -3.3 Prolia inj q6m, first 01/2017, 02/25/21 Total T-Score: -2.5 Medical History (Updated 09/30/24 @ 05:32 by Jose Alas MD) Atrial fibrillation (01/22/18) Essential hypertension (04/28/16) History of CVA (cerebrovascular accident) (10/24/15) Dry Stroke, 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 Brother Diabetes Brother Diabetes Brother Diabetes Brother Diabetes Brother Diabetes Brother Diabetes Social History Smoking/Tobacco Use Status: Former Tobacco Use Quit Date: 10/29/85 Tobacco: How many years used: 25 Smoking risk assessment performed?: Yes Alcohol Intake: never Drug use: Never Substance use type: does not use Household members: none Housing: assisted living facility Number of Children: 4 Current gender identity: female What type of physical activity do you participate in: none Do you feel safe at home: Yes Do you feel safe in your relationship?: Yes
--- NOTE | 2024-09-30 02:30 | RT.EKG_ITS ---
APPROVED REPORT Exam: Resting ECG Reason for Exam: dizzy; hx of afib Patient Location: E HR:79 bpm ECG Measurements Heart Rate 79 AXIS IN [id number] P [id number] QRSd 92 QRS 12 QT 443 T 22 QTc 507 Conclusion Atrial flutter...A-rate 272 Consider left ventricular hypertrophy...(R aVL+S V3) >2.20mV Prolonged QT interval...QTc >500mS Normal [place] Nonspecific ST-T changes I have reviewed and interpreted ECG and agree with software generated interpretation.
--- NOTE | 2024-09-30 02:30 | DI.CT_ITS ---
Exam(s) CT HEAD WO EXAM: CT HEAD WO CLINICAL HISTORY: dizzy, vomiting, headache. TECHNIQUE: Imaging Protocol: Axial computed tomography images with coronal and sagittal reformatted images were created and reviewed COMPARISON: CT CT HEAD WO from 11/23/2022 FINDINGS: Ventricles and Extra axial spaces: Normal in size and morphology for the patient's age. Hemorrhage: None. Cerebral parenchyma: No evidence of acute infarct or mass. Old right frontal lobe infarcts. Midline shift: None. Brainstem/Cerebellum: Normal. Calvarium: Hyperostosis frontalis interna. Visualized Paranasal sinuses:Clear. Mastoids: Clear. Soft Tissues: Unremarkable. ORBITS: Unremarkable. PITUITARY: Not enlarged. IMPRESSION: Old right frontal infarcts. No acute intracranial process. RADIATION DOSE DELIVERED: 792.91mGy.cm Total DLP DATA REPOSITORY: All CT scans at this facility are submitted to the National Radiology Data Registry (NRDR) Dose Index Registry (DIR) with the [employer] [place] [employer] (ACR). RADIATION OPTIMIZATION: All CT scans at this facility use at least one of these dose optimization te chniques: automated exposure control; mA and/or kV adjustment per patient size (includes targeted exa ms where dose is matched to clinical indication); or iterative reconstruction.
[2024-09-30] MEDS: Meclizine 12.5 MG TAB PO ×2 (02:49→14:35)
[2024-09-30] MEDS: Ondansetron 4 MG/2 ML VIAL IVP ×4 (02:49→21:22)
[2024-09-30] MEDS: Normal Saline 500 ML IV (02:50)
[2024-09-30 02:52] LABS: Abs Immature Grans 0.03 10^3/uL (0.0-0.06); Absolute Basophil Count 0.07 10^3/uL (0.0-0.2); Absolute Eosinophil Count 0.06 10^3/uL (0.0-0.7); Absolute Lymphocyte Count 0.97 10^3/uL (1.2-3.4); Absolute Monocyte Count 0.52 10^3/uL (0.1-0.8); Absolute Neutrophil Count 4.63 10^3/uL (1.2-6.7); Basophils % 1.1 %; HCT 41.7 % (36.0-46.0); HGB 13.6 g/dL (11.2-15.7); Immature Grans % 0.5 %; Lymphocytes % 15.4 %; MCH 29.9 pg (27.0-33.0); MCHC 32.6 % (32.0-36.0); MCV 92 fL (80-95); MPV 9.8 fL (8.0-11.0); Monocytes % 8.3 %; Neutrophils % 73.7 %; Platelet Count 307 10^3/uL (130-400); RBC 4.55 10^6/uL (3.93-5.22); RDW 13.2 % (11.7-14.6); RDW-SD 44.4 fL; WBC 6.28 10^3/uL (4.4-10.8)
--- NOTE | 2024-09-30 03:45 | DI.VRAD_ITS ---
PROCEDURE INFORMATION: Exam: CT Head Without Contrast Exam date and time: 09/30/2024 3:24 AM Age: 84 years old Clinical indication: Dizziness; Patient HX: Dizzy, vomiting, headache TECHNIQUE: Imaging protocol: Computed tomography of the head without contrast. Radiation optimization: All CT scans at this facility use at least one of these dose optimization techniques: automated exposure control; mA and/or kV adjustment per patient size (includes targeted exams where dose is matched to clinical indication); or iterative reconstruction. COMPARISON: CT HEAD WO 11/23/2022 9:10 AM FINDINGS: Brain: No acute intracranial hemorrhage, mass-effect, midline shift, or extra-axial collection is seen. There is a small old right frontal infarct. Otherwise, the ball-white matter differentiation appears preserved. There is symmetric parenchymal volume loss. Cerebral ventricles: The ventricular system and basilar cisterns appear appropriate in size and configuration. Paranasal sinuses: The visualized paranasal sinuses appear well-aerated. Mastoid air cells: The visualized mastoid air cells appear well aerated. Auditory system: The middle ear cavities appear clear. Orbital cavities: The globes and intraorbital structures appear grossly intact. Nasal cavity: There is rightward deviation of the nasal septum. Bones: The bony calvarium appears intact. No depressed skull fracture is seen. There is hyperostosis frontalis interna. Soft tissues: No gross focal scalp hematoma is seen. IMPRESSION: 1. No acute intracranial abnormality seen. 2. Small old right frontal infarct. 3. Symmetric parenchymal volume loss. Dictated and Authenticated by: Dmitri Thurman MD. Ordering:ASHTYN Garcia MD
[2024-09-30 04:16] LABS: ALT 11 U/L (14-59); AST 7 U/L (15-37); Alkaline Phosphatase 74 U/L (46-116); Anion Gap 9.7 mmol/L (3-11); BUN 21 mg/dL (7-18); Bilirubin, Total 0.43 mg/dL (0.2-1.0); CO2 27.3 mmol/L (21.0-32.0); CREATININE 1.1 mg/dL (0.55-1.02); Calcium 8.8 mg/dL (8.5-10.1); Chloride 108 mmol/L (98-107); Estimated GFR 49.24 (mL/min/1.73m2); Glucose 155 mg/dL (74-106); Magnesium 1.7 mg/dL (1.8-2.4); Potassium 3.6 mmol/L (3.5-5.1); Sodium 145 mmol/L (136-145); Troponin I 6 ng/L (<or=51)
[2024-09-30 04:30] LABS: Albumin 3.6 g/dL (3.4-5.0)
[2024-09-30 05:06] LABS: Bilirubin Negative (Negative); Blood Trace-intact (Negative); Clarity Clear (Clear); Glucose 100 mg/dL (Negative); Ketones Negative (Negative); Leukocyte Esterase Small (Negative); Nitrite Negative (Negative); Urobilinogen 0.2 mg/dL (Up to 0.2); pH 7.5 (5-8)
[2024-09-30 05:12] LABS: Epithelial Cells Few HPF (Negative); WBC 20-50 HPF (0-5)
[2024-09-30 05:13] LABS: Bacteria Few HPF (Negative); C & S Indicated? Yes; Casts Negative LPF (Negative); Crystals Negative HPF (Negative); Mucus Trace (Negative); Other Cells Few Renal (Negative)
[2024-09-30] MEDS: cefTRIAXone 1 GM/50 ML BAG IVPB ×2 (05:58→17:20)
--- NOTE | 2024-09-30 07:06 | W.EDPROG ---
Date of service: 09/30/24 Time of Service: 07:00 Medical Decision Making I received sign out on this DNI/DNR 84 yo F w/24 hrs of dizziness & nausea found to have UTI for which she received abx. She is pending PT eval. 10/01 Late charting due to partient care. Patient was evaluated by PT who felt that she was not safe for dc. I spoke with Dr. Naidu who agreeed to hospitalize her. Quality:SDOH Health Related Social Needs: No Data to Display Sign Out Sign Out Data: Sign Out Comment: Elderly female with complaints of dizziness, nausea and dry heaves, who feels unsafe at home. She was found to have UTI and is received a dose of IV ceftriaxone. Will plan for PT consult regarding patient's safety for discharge home. Last updated by Jose Alas MD at 09/30/24 07:02 Discharge Plan Disposition Patient Disposition: Admit to [facility] Condition: Improving Discharge Details Chief Complaint: Dizzy/Sync Clinical Impression: UTI (urinary tract infection) Admit Date/Time: 09/30/24 10:03 Admit Provider: Jose Naidu Attending Provider: Jose Naidu Primary Care Provider: Patricia Garza ED Provider: Noel Bar Discharge Instructions Activity:: Activity as Tolerated Equipment/Supplies:: Walker Diet:: heart healthy Discharge Orders Discharge Orders: Discharge Order (Routine); Ordered 10/01/24 Ordered By: Sofia Whelan Discharge Data Discharge Date/Time-TO BE ENTERED AT DEPARTURE: 09/30/24 11:02
--- NOTE | 2024-09-30 07:15 | NUR.NOTE ---
Hand off received by Lobo Somers RN
[2024-09-30] MEDS: Normal Saline Flush 10 ML SYR IVP ×2 (07:33→21:23)
[2024-09-30] MEDS: amLODIPine 5 MG TAB PO (07:49)
[2024-09-30] MEDS: Apixaban 2.5 MG TAB PO ×2 (07:49→21:27)
[2024-09-30] MEDS: buPROPion-XL 150 MG TABCR 300 MG PO (08:00)
--- NOTE | 2024-09-30 09:53 | HPE_ITS ---
Date of service: 09/30/24 Time of Service: 09:53 Assessment and Plan Assessment and plan (1) Hypertensive urgency: Status: Acute Assessment and plan: Head CT negative BP 192/87 to 209/122 w c/o headache dizziness Amlodipine given in ED Also on metoprolol CR for A-fib Goal BP 150/90 in 4 hours PRN oral hydralazine with parameters (2) Vertigo: Status: Acute Assessment and plan: Scopolamine patch Oral comapazine PRN Fall precautions PT consult ongoing- discussion re: benign paroxysmal positional vertigo and interventions (3) Nausea: Status: Inactive Assessment and plan: As above (4) UTI (urinary tract infection): Status: Acute Assessment and plan: As per UA On IV ceftriaxone while awaiting cultures (5) Falls frequently: Status: Acute Assessment and plan: PT consult ongoing Maintain fall precautions (6) Hypomagnesemia: Status: Resolved Assessment and plan: Supplementation given (7) Essential hypertension: Assessment and plan: Amlodipine added the regimen (8) Atrial fibrillation: Assessment and plan: On home dose metoprolol and eliquis Qualifiers: Atrial fibrillation type: paroxysmal Qualified Code(s): I48.0 - Paroxysmal atrial fibrillation (9) Contraindication to deep vein thrombosis (DVT) prophylaxis: Status: Acute Assessment and plan: as above GLENN's ordered Discussed with Dr. Naidu History of Present Illness History of Present Illness Chief Complaint: Dizziness, nausea, dry mouth, lightheadedness, difficulty ambulating Narrative: This 84-year-old female patient with a past medical history of recurrent UTIs, seen in December 2023 for dizziness related to atrial fibrillation, frequent falls, lung nodule, depression, hypertension, GERD, CVA with left-sided residual deficit, atrial fibrillation on metoprolol and Eliquis, hyperlipidemia and osteoporosis presented today to the ED at [facility] via EMS for evaluation of dizziness, nausea, lightheadedness and difficulty ambulating starting the day prior to presentation. The patient reported feeling unable to take care of of herself safely at home but was able to walk out to the ambulance and walk from the stretcher to the bed in the ED. The patient denied fever, chest pain, shortness of breath, upper respiratory infection type symptoms, abdominal pain. The patient reported a mild headache. Blood pressure in the emergency room ranged from 192/87 to 209/122; the patient was without tachycardia or tachypnea. Workup in the ED was significant for a UA that was positive for leukocyte esterase. CBC was unremarkable. BMP showed a BUN and creatinine at 21 and 1.1 within patient baseline. Magnesium was 1.7. Head CT was negative for any acute findings. In the ED IV ceftriaxone, zofran and oral amlodipine, meclizine were administered . PT was consulted with recommendation for home health PT for continued balance strength and home safety evaluation and functional mobility training with the continued use of the hinge knee brace when out of bed to reduce fall risk at home. The hospitalist was consulted and the patient admitted for observation to the medical surgical floor for evaluation and management of UTI, hypomagnesemia, hypertensive urgency, dizziness, and difficulty ambulating. The patient is a DNR/DNI. The patient denies change in vision, fever, chest pain, vomiting, hematochezia, reported last BM as diarrhea on Sunday; denies dysuria but reporting cloudy urine.The patient has increased dizziness when turning in bed, and dry heaves s/p position change.Reporting that the bed is spinning. Review of Systems All systems reviewed & are unremarkable except as noted in HPI and below PFSH All Active Problems (Updated 09/30/24 @ 16:25 by Sofia Whelan APRN) Contraindication to deep vein thrombosis (DVT) prophylaxis (Acute) Vertigo (Acute) Hypertensive urgency (Acute) UTI (urinary tract infection) (Acute) Acute on chronic renal insufficiency (Acute) Pes anserinus bursitis of left knee (Acute) DEPO MEDROL 06/04/23 Depression (Chronic) Falls frequently (Acute) Degenerative joint disease of right hip (Acute) POCUS INJECTION 03/13/24 Painful total knee replacement, right (Acute) s/p revision of patellar component Dr. Dixon DOS: 09/06/22 Regurgitation and rechewing (Acute ~10/2021) 12/13/21 [facility] GI, gastric emptying scan ordered and consult with License Registration Examiner Lung nodule < 6cm on CT (Acute) LEWIS (dyspnea on exertion) (Acute) Paraesophageal hernia (Acute) Urinary incontinence (Acute) Rib pain on left side (Acute) Left shoulder pain (Acute) Iliotibial band syndrome of right side (Acute) Anxiety and depression (Chronic 09/05/17) Anticoagulant long-term use (Acute) Hiatal hernia (Chronic) Adjustment disorder, unspecified (Acute 11/16/16) Gastroesophageal reflux disease (Chronic 04/28/16) Due to Hiatial Hernia Osteoporosis (Chronic 02/13/17) left hip T SCORE -3.3 Prolia inj q6m, first 01/2017, 02/25/21 Total T-Score: - 2.5 Medical History (Updated 09/30/24 @ 16:25 by Sofia Whelan APRN) Atrial fibrillation (01/22/18) Essential hypertension (04/28/16) History of CVA (cerebrovascular accident) (10/24/15) Dry Stroke, 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) Hyperlipidemia (04/28/16) [place] angioma Seborrheic keratoses Actinic keratosis Keratoacanthoma (~05/2022) DH Derm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 Brother Diabetes Brother Diabetes Brother Diabetes Brother Diabetes Brother Diabetes Brother Diabetes Social History Smoking/Tobacco Use Status: Former Tobacco Use Quit Date: 10/29/85 Tobacco: How many years used: 25 Smoking risk assessment performed?: Yes Alcohol Intake: never Drug use: Never Substance use type: does not use Household members: none Housing: apartment Number of Children: 4 Current gender identity: female What type of physical activity do you participate in: none Do you feel safe at home: Yes Do you feel safe in your relationship?: Yes Meds Allergies and Home Medications Allergies Allergy/AdvReac Type Severity Reaction Status Date / Time Penicillins Allergy Unknown Swelling/Ed Verified 09/30/24 02:10 bobo/Itching nitrofurantoin AdvReac Severe Diarrhea Verified 09/30/24 02:10 ciprofloxacin (From Cipro) AdvReac Intermediate Dizziness/L Verified 09/30/24 02:10 ighthead Sulfa (Sulfonamide AdvReac Unknown GI symptoms Verified 09/30/24 02:10 Antibiotics) Home Medications ?Medication ?Instructions ?Recorded ?Confirmed ?Type calcium 500 mg-vitamin D3 1,000 1 ea PO DAILY 11/16/16 09/30/24 History unit-vitamin K 40 mcg chewable tablet denosumab 60 mg/mL subcutaneous 60 mg SQ [id number] 11/16/16 09/30/24 History syringe (Prolia) albuterol sulfate 90 mcg/actuation 2 puff inhalation Q6H PRN PRN 12/29/22 09/30/24 History aerosol inhaler fluticasone furoate 200 1 inh inhalation DAILY 12/29/22 09/30/24 History mcg-vilanterol 25 mcg/dose inhalation powder (Breo Ellipta) acetaminophen 500 mg tablet 500 mg PO Q6H PRN pain 02/01/23 09/30/24 History diclofenac sodium 1 % topical gel 2 - 4 g topical QID PRN pain #100 04/27/23 09/30/24 Rx grams amlodipine 5 mg tablet 5 mg PO DAILY #90 tabs 02/19/24 09/30/24 Rx apixaban 2.5 mg tablet 2.5 mg PO BID #180 tabs 02/19/24 09/30/24 Rx bupropion HCl 300 mg 24 hr tablet, 300 mg PO QAM #90 tabs 02/19/24 09/30/24 Rx extended release fenofibrate nanocrystallized 48 mg 48 mg PO DAILY #90 tabs 02/19/24 09/30/24 Rx tablet metoprolol succinate 50 mg See Rx Instructions .Route 02/19/24 09/30/24 Rx tablet,extended release 24 hr .COMPLEX #90 tabs omeprazole 40 mg capsule,delayed See Rx Instructions .Route 02/19/24 09/30/24 Rx release .COMPLEX #180 caps guar gum 0.25 tbsp PO DAILY 02/27/24 09/30/24 History Exam Narrative Exam Narrative: Constitutional The patient lying in bed , reporting headache, dizziness when turns in bed HENMT: Head is atraumatic, normocephalic, no lymphadenopathy. Facial structures with normal appearance Eyes: Well aligned, intact ROM Neck: Normal ROM, no meningeal signs Neuro:alert and oriented to self, person, place time and situation. No neurological focal deficit except left ext weakness d/t past CVA Chest:Chest is symmetrical and normal appearance Resp: Normal respiratory pattern, speaks in full sentences, unlabored breathing, clear lung bilaterally Cardio: irregular, S1, S2, no murmur, bilateral radial and dorsalis pedis pulses are positive, palpable GI: Abdomen is not distended, soft and non tender, bowel sounds are present : Negative Costovertebral angle tenderness Back/spine/Pelvis: No back tenderness, normal alignment Integumentary: No skin lesions or rash Psych: RASS 0, anxious mood and anxious affect. Results Labs 09/30/24 02:45 09/30/24 03:54 Labs: Laboratory Results - last 24 hr 09/30/24 09/30/24 09/30/24 02:45 03:33 03:54 WBC 6.28 RBC 4.55 Hgb 13.6 Hct 41.7 MCV 92 MCH 29.9 MCHC 32.6 RDW 13.2 Plt Count 307 MPV 9.8 Immature Gran % 0.5 Neutrophils % 73.7 Lymphocytes % 15.4 Monocytes % 8.3 Eosinophils % 1.0 Basophils % 1.1 Nucleated RBC % 0.0 Absolute Neutrophils 4.63 Absolute Lymphocytes 0.97 L Absolute Monocytes 0.52 Absolute Eosinophils 0.06 Absolute Basophils 0.07 Sodium Cancelled Cancelled 145 Potassium Cancelled Cancelled 3.6 Chloride Cancelled Cancelled 108 H Carbon Dioxide Cancelled Cancelled 27.3 Anion Gap Cancelled Cancelled 9.7 BUN Cancelled Cancelled 21 H Creatinine Cancelled Cancelled 1.1 H Est GFR (CKD-EPI 2020) Cancelled Cancelled 49.24 Glucose Cancelled Cancelled 155 H Calcium Cancelled Cancelled 8.8 Magnesium Cancelled Cancelled 1.7 L Total Bilirubin Cancelled Cancelled 0.43 AST Cancelled Cancelled 7 L ALT Cancelled Cancelled 11 L Alkaline Phosphatase Cancelled Cancelled 74 Troponin I Cancelled Cancelled 6 Total Protein Cancelled Cancelled 7.0 Albumin Cancelled Cancelled 3.6 Urine Color Urine Clarity Urine pH Ur Specific [place] Urine Protein Urine Ketones Urine Blood Urine Nitrite Urine Bilirubin Urine Urobilinogen Ur Leukocyte Esterase Urine RBC Urine WBC Ur Epithelial Cells Urine Crystals Urine Bacteria Urine Casts Urine Mucus Urine Other Ur Culture Indicated? Urine Glucose 09/30/24 04:58 WBC RBC Hgb Hct MCV MCH MCHC RDW Plt Count MPV Immature Gran % Neutrophils % Lymphocytes % Monocytes % Eosinophils % Basophils % Nucleated RBC % Absolute Neutrophils Absolute Lymphocytes Absolute Monocytes Absolute Eosinophils Absolute Basophils Sodium Potassium Chloride Carbon Dioxide Anion Gap BUN Creatinine Est GFR (CKD-EPI 2020) Glucose Calcium Magnesium Total Bilirubin AST ALT Alkaline Phosphatase Troponin I Total Protein Albumin Urine Color Yellow Urine Clarity Clear Urine pH 7.5 Ur Specific [place] 1.020 Urine Protein >=300 H Urine Ketones Negative Urine Blood Trace-intact H Urine Nitrite Negative Urine Bilirubin Negative Urine Urobilinogen 0.2 Ur Leukocyte Esterase Small H Urine RBC 3-5 H Urine WBC 20-50 H Ur Epithelial Cells Few Urine Crystals Negative Urine Bacteria Few Urine Casts Negative Urine Mucus Trace Urine Other Few Renal Ur Culture Indicated? Yes Urine Glucose 100 H Last Vital Signs Temp 36.1 C L 09/30/24 08:16 Pulse 80 09/30/24 08:16 Resp 20 09/30/24 08:16 BP 140/115 H 09/30/24 08:16 Pulse Ox 97 09/30/24 08:16 Time Spent Time spent with Patient: >75 minutes Time was spent: preparing to see the patient(eg.review tests), obtaining and/or reviewing separately otained hiistory, ordering medications,tests, procedures, referring, communicating with other health career guidance counselor, indepentently interpreting results, counseling the patient and care coordination
[2024-09-30 10:56] LABS: TSH (W/Ref FT4) 1.61 uIU/mL (0.36-3.74)
--- NOTE | 2024-09-30 11:23 | IN_ITS ---
PT Notes Visit Reasons: UTI,hypertension,dizziness,weakness Physical Therapy Initial Evaluation Date: 09/30/2024 Referring Doctor: Jose Alas MD PT Orders: PT CONSULT: Safety Consult for D/C Precautions: Fall. Standard. Activity as tolerated. DNR/DNI. Patient Profile/Admitting Diagnosis: Linda is an 84-year-old female with history of CVA with right frontal lobe infarct back in September 2015, repeated falls, traumatic rupture of R quads tendon, and painful right total knee replacement, status post patellar component revision on 09/06/2022. She presented to the ED today due to dizziness, dry heaving, nasuea, and dry mouth. Patient was also seen back in December of this year for dizziness related to atrial fibrillation. Per OR notes, patient has been unable to care for self at times she does not have a caregiver, has been having difficulty ambulating due to her dizziness, and has complained of mild headache. Referral for PT was sent for safe discharge recommendation. PMHX: All Active Problems (Updated 09/30/24 @ 05:32 by Jose Alas MD) UTI (urinary tract infection) (Acute) Acute on chronic renal insufficiency (Acute) Pes anserinus bursitis of left knee (Acute) DEPO MEDROL 06/04/23Depression (Chronic) Falls frequently (Acute) Degenerative joint disease of right hip (Acute) POCUS INJECTION 03/13/24 Painful total knee replacement, right (Acute) s/p revision of patellar component Dr. Dixon DOS: 09/06/22 Regurgitation and rechewing (Acute ~10/2021) 12/13/[address] [facility] GI, gastric emptying scan ordered and consult with Tour Coordinator Lung nodule < 6cm on CT (Acute) LEWIS (dyspnea on exertion) (Acute) Paraesophageal hernia (Acute) Urinary incontinence (Acute) Rib pain on left side (Acute) Left shoulder pain (Acute) Iliotibial band syndrome of right side (Acute) Anxiety and depression (Chronic 09/05/17) Anticoagulant long-term use (Acute) Hiatal hernia (Chronic) Adjustment disorder, unspecified (Acute 11/16/16) Gastroesophageal reflux disease (Chronic 04/28/16) Due to Hiatial Hernia Osteoporosis (Chronic 02/13/17) left hip T SCORE -3.3 Prolia inj q6m, first 01/2017, 02/25/21 Total T-Score: - 2.5 Medical History (Updated 09/30/24 @ 05:32 by Jose Alas MD) Atrial fibrillation (01/22/18) Essential hypertension (04/28/16) History of CVA (cerebrovascular accident) (10/24/15) Dry Stroke, 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) Hyperlipidemia (04/28/16) [place] angioma Seborrheic keratoses Actinic keratosis Keratoacanthoma (~05/2022) DH Derm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 Dixon Status post total right knee replacement (11/20/11) Status post total left knee replacement H/O endoscopy (10/24/21) S/P repair of paraesophageal hernia (08/15/21) Giant [facility] Thoracic Open Carpal Tunnel release right Cholecystectomy (01/10/18) Extraction of cataract Social History/Home Situation: Lives alone on the second floor of a handicap-accessible apartment floor building in [place], [place]. Independent with 4WW indoors, requires supervision of another outdoors. Has family close by who are supportive. Has 4 hours of caregiving coverage Mondays, Tuesdays, , and Fridays for house chores, laundry, and grocery shopping. Able to perform dressing ad bathing on her own. Equipment Owned/DME: 4WW, FWW Subjective: Has fallen at least 5 times in the past year. Caregiver Gayle was present rhoughout evaluation. Complained of dizziness when she sat up which somehow subided after restin in that position for about 5-6 minutes. Agreeable to trying out walking after. Dry heaved and was more nasueous after a short walk. According to caregiver, patient has not seen her PCP about her UTI and has not taken anything for it. Exhausted after the short walk which, along with the dizziness, nearly caused her to lose balance at the end of today's walk. Objective: General Observation: Resting in bed. Appeared highly anxious about how she will do. Mental Status: Alert and oriented as to person and purpose. Able to follow instructions/requests. Pain: Moderate pain in the R knee (chronic) ROM: Right Upper Extremity: Shoulder Flexion allows up to 80 degrees with pain at end of range. Shoulder abduction allows up to 60 degrees with pain at end of range. Elbow flexion WFL. Wrist flexion WFL. Functional opening and closing of hand WFL. Left Upper Extremity: Shoulder Flexion allows up to 90 degrees with pain at end of range. Shoulder abduction allows up to 70 degrees with pain at end of range. Elbow flexion WFL. Wrist flexion WFL. Functional opening and closing of hand WFL. Right Lower Extremity: Hip flexion allows up to about 100 degrees. Hip abduction WFL. Knee flexion 20 degrees to 90 degrees. Knee extension -20 degrees. Ankle dorsiflexion to neutral only. Ankle plantarflexion WFL. Left Lower Extremity: Hip flexion allows up to about 100 degrees. Hip abduction WFL. Knee flexion 10 degrees to 90 degrees. Knee extension -20 degrees. Ankle dorsiflexion to neutral only. Ankle plantarflexion WFL. Strength: Right Upper Extremity: Shoulder flexors 3-/5. Shoulder abductors 3-/5. Elbow flexors 4-/5. Elbow extensors 4-/5. Gripweak but functional. Left Upper Extremity: Shoulder flexors 3-/5. Shoulder abductors 3-/5. Elbow flexors 4-/5. Elbow extensors 4-/5. Gripweak but functional. Right Lower Extremity: Hip flexors 3-/5. Hip abductors 3-/5. Knee flexors3-5/5. Knee extensors 3-/5. Ankle dorsiflexors 3-/5. Ankle plantarflexors 4-/5. Left Lower Extremity:Hip flexors 3-/5. Hip abductors 3-/5. Knee flexors3-5/5. Knee extensors 3-/5. Ankle dorsiflexors 3-/5. Ankle plantarflexors 4-/5. Sensation: Intact as to pain and light pressure in B LE Bed Mobility/Transfers: Minimal cueing provided for use of B hands as needed for support, movement s equence, AD management, and posture to reduce fall risk and minimize pain report Supine to sit moderate assist with HOB at 45 degrees Sit to stand moderate assist Stand to sit moderate assist Bed to chair moderate assist Gait: Facilitated safe and correct performance of short level surface ambulation of 10 feet + 10 feet with moderate assist and 2 episodes of near LOB due to dizziness, fatigue, dry heaving and pain report of 5/10 in the R knee. Step height and length asymmetrical. Mild shortness of breath noted. Shaky and unstable needing moderate assist for safety. Balance: Static Sitting: Good Dynamic Sitting: Good Static Standing: Fair Dynamic Standing: Poor Special Tests: Mobility Limitations Standardized Measure [facility] AM-PAC 6 clicks Basic Mobility Inpatient Short Form: Raw Score: 12 CMS Score: 69% deficit Informed Consent/Education: Patient instructed in purpose of PT consult and plan of care. Agreeable to proceed with established PT POC to achieve personal goals. Assessment: Ongoing infectious process along with acute symptoms of nausea, retching, and dizziness are compounding and exacerbating chronic symptoms of residual weakness on the L from previous CVA, continued pain and weakness on the R knee, and impaired muscle performance which all pose high risk for falls at home and increase re-hospitalization risk for patient. Patient presents with clinical signs and symptoms consistent with current/admitting diagnoses that have resulted to mobility limitations, gait instability, generalized weakness, and impairment of motor control as demonstrated by the following impairment level findings: 1. Decreased strength to b UE/LE with L UE/LE more affected 2. Impaired standing balance 3. Limitation of joint range of motion in R knee (chronic) Impairments are contributing to the following functional limitations: 1. Inability to safely ambulate without assistive device 2. Increase completion time for mobility ADL performance 3. [facility] fall risk 4. High re-hospitalization rate Patient is assessed as a 62325 moderate complexity based on the following: History: 82-year-old female with impairment level findings, functional limitations, and past medical history as indicated above Examination: Demonstrable impairment in strength, balance, and mobility level with underlying impairments and functional limitations as documented above Presentation: Evolving Decision Makin moderate complexity Goals: Goals X1 week 1. Supine-Sit independent 2. Sit-Supine independent 3. Sit-Stand independent 4. Stand-Sit independent 5. Bed-Chair independent 6. Chair-Bed independent 7. Independent gait on level surface with use of 4WW for at least 150 feet without report of pain nor dyspnea 8. Independent stair negotiation while holding onto bilateral rails for at least 10 steps without report of pain nor dyspnea 9. Independent with home exercise program 10. Good static and dynamic standing balance/tolerance Plan of Care/Treatment Plan: Patient will highly benefit from skilled physical therapy services including functional mobility training, bed mobility/transfer training, gait and balance training, therapeutic exercises, therapeutic activity, caregiver/staff/family education and training 1x/day, 7 days/week x 1 week. Plan of care has been reviewed with the SENIOR ANALYTICAL CHEMIST providing the service under Physical Therapy direction. Initiate Physical Therapy intervention for strengthening, bed mobility, transfers, gait, stairs, balance training, use of assistive device. DISCHARGE RECOMMENDATIONS: [] Home with no services [] [] Home with services [specify] [] Home with outpatient PT [] [] SNF for continued rehabilitation [] [] [facility] [] [] SNF versus LTC based on ability to participate and progress [] [X] Short-term SNF vs PT due to high fall risk from acute symptoms of dizziness, generalized weakness, and impaired balance TREATMENT CODE/TIME: 90339 x 20 minutes for 1 unit, 98430 x 11 minutes (09:03-09:34). Thank you for the opportunity to participate in the care of this patient. Kaylynn Hunter PT, DPT, CLT [facility] [place], [place]
--- NOTE | 2024-09-30 11:25 | W.PC.ACHO ---
Registration Status: Primary Language: Preferred Language: ED Information & Data Chief Complaint Dizzy/Sync 09/30/24 02:26 Triage Note Pt arrives via EMS c/o dry 09/30/24 02:10 mouth, h/a and dizziness x 1 day. Pt states the room is spinning. Pt arrives dry heaving - no vomiting noted. Pt states she is unable to take care of herself at home. Pt states she had covid recently (May). Pt w hx of AFIB on eliquis. Denies fever, cough, abd pain, CP/SOB. 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) Status post total left knee replacement H/O endoscopy (10/24/21) S/P repair of paraesophageal hernia (08/15/21) Open Carpal Tunnel release Cholecystectomy (01/10/18) Extraction of cataract Most Recent Vital Signs Temperature 36.8 C 09/30/24 10:49 Temperature Source Oral 09/30/24 08:16 Pulse 75 09/30/24 10:49 Pulse Rhythm Irregular 09/30/24 11:13 Pulse 84 09/30/24 04:50 Respiratory Rate 20 09/30/24 10:49 Respiratory Effort Normal 09/30/24 11:13 Respiratory Depth Normal 09/30/24 11:13 Respiratory Pattern Normal 09/30/24 11:13 Blood Pressure 152/124 H 09/30/24 10:49 Blood Pressure Mean 219 09/30/24 07:25 Blood Pressure Position Sitting 09/30/24 02:10 Pulse Oximetry 97 09/30/24 10:49 Oxygen Delivery Method Room Air 09/30/24 08:16 Oxygen Flow Rate 0 09/30/24 08:16 Pain Level 5 09/30/24 02:10 Allergies Penicillins Allergy (Unknown, Verified 09/30/24 02:10) Swelling/Edema/Itching nitrofurantoin Adverse Reaction (Severe, Verified 09/30/24 02:10) Diarrhea Nitrofurantoin macro/monocrystal diarrhea and nausea ciprofloxacin (From Cipro) Adverse Reaction (Intermediate, Verified 09/30/24 02:10) Dizziness/Lighthead Sulfa (Sulfonamide Antibiotics) Adverse Reaction (Unknown, Verified 09/30/24 02:10) GI symptoms 09/06/22: pt reports mild urticaria Active Medications Generic Name Dose Route Start Last Admin Trade Name Freq PRN Reason Stop Dose Admin Amlodipine Besylate 5 mg 09/30/24 08:30 09/30/24 07:49 Amlodipine 5 Mg Tab PO 5 mg DAILY MICHAEL Administration Apixaban 2.5 mg 09/30/24 08:30 09/30/24 07:49 Apixaban 2.5 Mg Tab PO 2.5 mg BID MICHAEL Administration Bupropion HCl 300 mg 09/30/24 08:30 09/30/24 08:00 Bupropion-Xl 150 Mg Tabcr PO 300 mg QAM MICHAEL Administration Metoprolol Succinate 50 mg 09/30/24 08:30 09/30/24 10:46 Metoprolol Cr 50 Mg Tabcr PO Not Given DAILY MICHAEL IV IV Catheter Type [Right Saline Lock Forearm] IV Catheter Gauge [Right 20 Forearm] Diet Orders Category Date Time Status Heart Healthy Eating [DIET] Nutrition 09/30/24 Lunch Active Diagnostics 09/30/24 09/30/24 09/30/24 Range/Units 04:58 03:54 03:33 WBC (4.4-10.8) 10^3/uL RBC (3.93-5.22) 10^6/uL Hgb (11.2-15.7) g/dL Hct (36.0-46.0) % MCV (80-95) fL MCH (27.0-33.0) pg MCHC (32.0-36.0) % RDW (11.7-14.6) % Plt Count (130-400) 10^3/uL MPV (8.0-11.0) fL Immature Gran % % Neutrophils % % Lymphocytes % % Monocytes % % Eosinophils % % Basophils % % Nucleated RBC % (0.0-0.3) % Absolute Neutrophils (1.2-6.7) 10^3/uL Absolute Lymphocytes (1.2-3.4) 10^3/uL Absolute Monocytes (0.1-0.8) 10^3/uL Absolute Eosinophils (0.0-0.7) 10^3/uL Absolute Basophils (0.0-0.2) 10^3/uL Sodium 145 Cancelled Potassium 3.6 Cancelled Chloride 108 H Cancelled Carbon Dioxide 27.3 Cancelled Anion Gap 9.7 Cancelled BUN 21 H Cancelled Creatinine 1.1 H Cancelled Est GFR (CKD-EPI 2020) 49.24 Cancelled Glucose 155 H Cancelled Calcium 8.8 Cancelled Magnesium 1.7 L Cancelled Total Bilirubin 0.43 Cancelled AST 7 L Cancelled ALT 11 L Cancelled Alkaline Phosphatase 74 Cancelled Troponin I 6 Cancelled Total Protein 7.0 Cancelled Albumin 3.6 Cancelled TSH 1.61 (0.36-3.74) uIU/mL Urine Color Yellow (Yellow) Urine Clarity Clear (Clear) Urine pH 7.5 (5-8) Ur Specific [place] 1.020 (1.005-1.025) Urine Protein >=300 H (Neg-Trace) mg/dL Urine Ketones Negative (Negative) mg/dL Urine Blood Trace-intact H (Negative) Urine Nitrite Negative (Negative) Urine Bilirubin Negative (Negative) Urine Urobilinogen 0.2 (Up to 0.2) mg/dL Ur Leukocyte Esterase Small H (Negative) Urine RBC 3-5 H (0-2) HPF Urine WBC 20-50 H (0-5) HPF Ur Epithelial Cells Few (Negative) HPF Urine Crystals Negative (Negative) HPF Urine Bacteria Few (Negative) HPF Urine Casts Negative (Negative) LPF Urine Mucus Trace (Negative) Urine Other Few Renal (Negative) Ur Culture Indicated? Yes Urine Glucose 100 H (Negative) mg/dL 09/30/24 Range/Units 02:45 WBC 6.28 (4.4-10.8) 10^3/uL RBC 4.55 (3.93-5.22) 10^6/uL Hgb 13.6 (11.2-15.7) g/dL Hct 41.7 (36.0-46.0) % MCV 92 (80-95) fL MCH 29.9 (27.0-33.0) pg MCHC 32.6 (32.0-36.0) % RDW 13.2 (11.7-14.6) % Plt Count 307 (130-400) 10^3/uL MPV 9.8 (8.0-11.0) fL Immature Gran % 0.5 % Neutrophils % 73.7 % Lymphocytes % 15.4 % Monocytes % 8.3 % Eosinophils % 1.0 % Basophils % 1.1 % Nucleated RBC % 0.0 (0.0-0.3) % Absolute Neutrophils 4.63 (1.2-6.7) 10^3/uL Absolute Lymphocytes 0.97 L (1.2-3.4) 10^3/uL Absolute Monocytes 0.52 (0.1-0.8) 10^3/uL Absolute Eosinophils 0.06 (0.0-0.7) 10^3/uL Absolute Basophils 0.07 (0.0-0.2) 10^3/uL Sodium Cancelled Potassium Cancelled Chloride Cancelled Carbon Dioxide Cancelled Anion Gap Cancelled BUN Cancelled Creatinine Cancelled Est GFR (CKD-EPI 2020) Cancelled Glucose Cancelled Calcium Cancelled Magnesium Cancelled Total Bilirubin Cancelled AST Cancelled ALT Cancelled Alkaline Phosphatase Cancelled Troponin I Cancelled Total Protein Cancelled Albumin Cancelled TSH (0.36-3.74) uIU/mL Urine Color (Yellow) Urine Clarity (Clear) Urine pH (5-8) Ur Specific [place] (1.005-1.025) Urine Protein (Neg-Trace) mg/dL Urine Ketones (Negative) mg/dL Urine Blood (Negative) Urine Nitrite (Negative) Urine Bilirubin (Negative) Urine Urobilinogen (Up to 0.2) mg/dL Ur Leukocyte Esterase (Negative) Urine RBC (0-2) HPF Urine WBC (0-5) HPF Ur Epithelial Cells (Negative) HPF Urine Crystals (Negative) HPF Urine Bacteria (Negative) HPF Urine Casts (Negative) LPF Urine Mucus (Negative) Urine Other (Negative) Ur Culture Indicated? Urine Glucose (Negative) mg/dL 09/30/24 04:58 Urine Culture - Pending Urine - Reflex from Ua Intake and Output - 24 Hour Total 09/30/24 02:05 thru 09/30/24 11:23 Intake Total 560 Balance 560 Weight 63.503 kg Intake: IV 560 Falls Risk Assessment History of Falls Previous History 09/30/24 11:13 Contributing Factors Unstable,Incontinence 09/30/24 11:13 Ambulatory Aids Uses ambulatory device 09/30/24 11:13 Tubes/Lines W/no contributing factors 09/30/24 11:13 Gait Evaluation W/no contributing factors 09/30/24 11:13 Cognition No cognitive impairment 09/30/24 11:13 Fall Total Score 56 09/30/24 11:13 Level of Risk High Risk 09/30/24 11:13 Problems (Last Updated 09/30/24 @ 02:25 by Jose Alas MD) UTI (urinary tract infection) (Acute) Notes 09/30/24 07:15 Nursing Notes by Yee Mooney Hand off received by Lobo Somers RN Initialized on 09/30/24 07:15 - END OF NOTE v v v v v v v v v Sending and/or Receiving Nurses: Please use comment section below to note any information pertinent to the patient hand-off not included above. Information / Comments: pt arrives to unit from ED to rm 211 Report received from: Renee Lozano Rn 11:00 am
[2024-09-30] MEDS: MAGNESIUM SULFATE 2 GM/50 ML BAG IV_INF (11:42)
[2024-09-30] MEDS: Metoprolol CR 50 MG TABCR PO (12:33)
--- NOTE | 2024-09-30 16:00 | PT.INNT ---
PT Notes Visit Reasons: UTI,hypertension,dizziness,weakness Offered to do the [place] maneuver per verbal order from KITCHEN FOOD ASSEMBLER Sofia'mikayla this afternoon but patient still is exhausted, she politely requested that the test be done tomorrow morning so she could rest some more and talk with her daughter Narcisa and her brother Kory about it. She added that the short walk she did this morning was really too much for her to tolerate. Will hold off on testing until tomorrow morning, as ordered.
[2024-09-30] MEDS: Acetaminophen 325 MG TAB 650 MG PO ×2 (17:13→21:26)
[2024-09-30] MEDS: Scopolamine 1 MG/3 DAYS PATCH TD (17:20)
[2024-09-30] MEDS: Omeprazole 20 MG CAPCR 40 MG PO (21:27)
[2024-10-01] MEDS: Acetaminophen 325 MG TAB 650 MG PO ×2 (05:13→10:20)
[2024-10-01 05:31] VITALS: BP 143/83; PULSE 75; RESP 15; TEMP 36.7; O2SAT 96
[2024-10-01 06:32] LABS: Abs Immature Grans 0.04 10^3/uL (0.0-0.06); Absolute Basophil Count 0.08 10^3/uL (0.0-0.2); Absolute Eosinophil Count 0.17 10^3/uL (0.0-0.7); Absolute Lymphocyte Count 0.99 10^3/uL (1.2-3.4); Absolute Monocyte Count 0.52 10^3/uL (0.1-0.8); Absolute Neutrophil Count 4.92 10^3/uL (1.2-6.7); Basophils % 1.2 %; Eosinophils % 2.5 %; HGB 13.4 g/dL (11.2-15.7); Immature Grans % 0.6 %; Lymphocytes % 14.7 %; MCH 29.5 pg (27.0-33.0); MCHC 31.9 % (32.0-36.0); MCV 92 fL (80-95); MPV 9.7 fL (8.0-11.0); Monocytes % 7.7 %; Neutrophils % 73.3 %; Platelet Count 323 10^3/uL (130-400); RBC 4.55 10^6/uL (3.93-5.22); RDW 13.2 % (11.7-14.6); RDW-SD 44.9 fL; WBC 6.72 10^3/uL (4.4-10.8)
[2024-10-01 06:54] LABS: BUN 15 mg/dL (7-18); CREATININE 1.2 mg/dL (0.55-1.02); Calcium 8.5 mg/dL (8.5-10.1); Chloride 108 mmol/L (98-107); Estimated GFR 44.36 (mL/min/1.73m2); Glucose 112 mg/dL (74-106); Magnesium 2.1 mg/dL (1.8-2.4); Potassium 3.5 mmol/L (3.5-5.1); Sodium 145 mmol/L (136-145)
[2024-10-01 07:20] VITALS: BP 125/72; PULSE 65; RESP 15; TEMP 36.6; O2SAT 98
[2024-10-01] MEDS: buPROPion-XL 150 MG TABCR 300 MG PO (07:58)
[2024-10-01] MEDS: amLODIPine 5 MG TAB PO (07:59)
[2024-10-01] MEDS: Apixaban 2.5 MG TAB PO (07:59)
[2024-10-01] MEDS: Omeprazole 20 MG CAPCR 40 MG PO (07:59)
[2024-10-01] MEDS: Fenofibrate, Micronized 48 MG TAB PO (07:59)
[2024-10-01] MEDS: Metoprolol CR 50 MG TABCR PO (07:59)
[2024-10-01] MEDS: Normal Saline Flush 10 ML SYR IVP (07:59)
--- NOTE | 2024-10-01 08:45 | INITIAL_ITS ---
Date of service: 10/01/24 Time of Service: 08:45 Care Management Initial Assmt Initial Assessment Reason for Hospitalization: UTI, HTN, Dizziness Functional Status/Living Situation Patient Presentation: Linda was sitting in a chair when CM met with her. She feels better this morning and is planning on discharging back to the [facility] this afternoon. She is familiar with [facility] and is planning to follow up with their outpatient vestibular therapist, Diann Gomez (as recommended by PT). Transportation will be provided by her Granddaughter Donya or [facility]. Linda would like her Granddaughter to pick her up but doesn't know her number. Town of Residence: [place] ([facility]) Resides with: Alone Significant Other/Family: Out of area (Daughter Narcisa in [place], talk on the phone daily, Granddaughter Jessie lives in [place]. ) Caregiver/Guardian: Caregiver Gayle: Caregiver services: 4 hrs X 4 days per week ( Mon,Tu ,Th,Fri) for house chores, laundry, and grocery shopping. Choices for Care LTC, [facility] Aging rn case manager hospice. Natural Supports: Employment Status: Retired Instrumental Activities of Daily Living (ADLs): Independent (Able to perform dressing ad bathing on her own. ) and Requires support ( ) with Groceries, Laundry and Transportation Medications Medication Management: No Issues/Barriers identified Physical Functioning/Mobility Assistive Device: Walker Advance Directives Advance Directives: Do you have an Advance Directive: Y 09/30/24 07:[address] [facility]: Y 09/30/24 07:03 Date Asked AD Date Reviewed 09/30/24 09/30/24 07:03 COLST [address] [facility] Yes 12/21/22 06:08 COLST Date Scanned 12/14/22 12/21/22 06:08 Code Status Resuscitation Status DNR/DNI Insurance Coverage/Financial Issues Insurance: Medicaid Medicare Part A & B Care Team Visit Care Team Role Provider Type Patricia Garza NP Primary Care Provider NURSE PRACTITIONER [facility] Other Providers OTHER Noel Bar MD Emergency Provider [facility] STAFF PHYSICIAN Jose Naidu MD Admit Provider [facility] STAFF PHYSICIAN Attending Provider Discharge Potential Discharge Needs: PT Evaluation (Recommendation: [facility] ) and PCP F/U Appt Anticipated Barriers to Discharge: Medical Status Patient/Family Education Needs: Review discharge instructions, discuss Ask Me Three Transportation: Private vehicle Plan: Linda will discharge home via private vehicle with family with resumption of caregiver services and community supports. No [facility] services are indicated. CM will continue to follow and support discharge planning conciderations. PFSH All Active Problems (Updated 09/30/24 @ 16:25 by Sofia Whelan APRN) Contraindication to deep vein thrombosis (DVT) prophylaxis (Acute) Vertigo (Acute) Hypertensive urgency (Acute) UTI (urinary tract infection) (Acute) Acute on chronic renal insufficiency (Acute) Pes anserinus bursitis of left knee (Acute) DEPO MEDROL 06/04/23 Depression (Chronic) Falls frequently (Acute) Degenerative joint disease of right hip (Acute) POCUS INJECTION 03/13/24 Painful total knee replacement, right (Acute) s/p revision of patellar component Dr. Dixon DOS: 09/06/22 Regurgitation and rechewing (Acute ~10/2021) 12/13/21 [facility] GI, gastric emptying scan ordered and consult with Luncheonette Operator Lung nodule < 6cm on CT (Acute) LEWIS (dyspnea on exertion) (Acute) Paraesophageal hernia (Acute) Urinary incontinence (Acute) Rib pain on left side (Acute) Left shoulder pain (Acute) Iliotibial band syndrome of right side (Acute) Anxiety and depression (Chronic 09/05/17) Anticoagulant long-term use (Acute) Hiatal hernia (Chronic) Adjustment disorder, unspecified (Acute 11/16/16) Gastroesophageal reflux disease (Chronic 04/28/16) Due to Hiatial Hernia Osteoporosis (Chronic 02/13/17) left hip T SCORE -3.3 Prolia inj q6m, first 01/2017, 02/25/21 Total T-Score: - 2.5 Medical History (Updated 09/30/24 @ 16:25 by Sofia Whelan APRN) Atrial fibrillation (01/22/18) Essential hypertension (04/28/16) History of CVA (cerebrovascular accident) (10/24/15) Dry Stroke, 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) Hyperlipidemia (04/28/16) [place] angioma Seborrheic keratoses Actinic keratosis Keratoacanthoma (~05/2022) DH Derm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 Brother Diabetes Brother Diabetes Brother Diabetes Brother Diabetes Brother Diabetes Brother Diabetes Social History Smoking/Tobacco Use Status: Former Tobacco Use Quit Date: 10/29/85 Tobacco: How many years used: 25 Smoking risk assessment performed?: Yes Alcohol Intake: never Drug use: Never Substance use type: does not use Household members: none Housing: apartment Number of Children: 4 Current gender identity: female What type of physical activity do you participate in: none Do you feel safe at home: Yes Do you feel safe in your relationship?: Yes SDOH(Care Management) Screening Will the Patient Participate in the Screening?: Yes Do you worry about having a steady place to live?: no Problems where you live: no known problems In the past 12 months, have you had to go without electric, gas, oil or water in your home?: no Have you or anyone in your house had to go without enough food to eat?: no Has lack of transportation kept you from medical appointments or from doing things needed for daily living?: no Has anyone in your support network made you feel unsafe for any reason?: no Social Determinants of Health Comments(SDOH Details): pt states she can't take care of herself.
--- NOTE | 2024-10-01 09:50 | W.PM.PROGNOT ---
Date of Service Date of service: 10/01/24 Time of Service: 09:50 Assessment and Plan Assessment and plan (1) Hypertensive urgency: Status: Acute Assessment and plan: Head CT negative BP 192/87 to 209/122 w c/o headache dizziness Amlodipine given in ED Also on metoprolol CR for A-fib Goal BP met for 24 hours PRN oral hydralazine with parameters (2) Vertigo: Status: Acute Assessment and plan: Scopolamine patch Oral comapazine PRN Fall precautions PT consult ongoing- discussion re: benign paroxysmal positional vertigo and interventions (3) Nausea: Status: Inactive Assessment and plan: As above (4) UTI (urinary tract infection): Status: Acute Assessment and plan: As per UA On IV ceftriaxone while awaiting cultures (5) Falls frequently: Status: Acute Assessment and plan: PT consult ongoing Maintain fall precautions (6) Hypomagnesemia: Status: Resolved Assessment and plan: Supplementation given (7) Essential hypertension: Assessment and plan: Amlodipine added the regimen (8) Atrial fibrillation: Assessment and plan: On home dose metoprolol and eliquis Qualifiers: Atrial fibrillation type: paroxysmal Qualified Code(s): I48.0 - Paroxysmal atrial fibrillation (9) Contraindication to deep vein thrombosis (DVT) prophylaxis: Status: Acute Assessment and plan: as above GLNEN's ordered Discussed with Dr. Naidu Exam Narrative Exam Narrative: Constitutional The patient lying in bed , reporting headache, dizziness when turns in bed HENMT: Head is atraumatic, normocephalic, no lymphadenopathy. Facial structures with normal appearance Eyes: Well aligned, intact ROM Neck: Normal ROM, no meningeal signs Neuro:alert and oriented to self, person, place time and situation. No neurological focal deficit except left ext weakness d/t past CVA Chest:Chest is symmetrical and normal appearance Resp: Normal respiratory pattern, speaks in full sentences, unlabored breathing, clear lung bilaterally Cardio: irregular, S1, S2, no murmur, bilateral radial and dorsalis pedis pulses are positive, palpable GI: Abdomen is not distended, soft and non tender, bowel sounds are present : Negative Costovertebral angle tenderness Back/spine/Pelvis: No back tenderness, normal alignment Integumentary: No skin lesions or rash Psych: RASS 0, anxious mood and anxious affect. Objective Last Vital Signs Temp 36.6 C 10/01/24 07:20 Pulse 65 10/01/24 07:20 Resp 15 10/01/24 07:20 BP 125/72 10/01/24 07:20 Pulse Ox 98 10/01/24 07:20 Laboratory Results - last 24 hr 09/30/24 10/01/24 03:54 05:50 WBC 6.72 RBC 4.55 Hgb 13.4 Hct 42.0 MCV 92 MCH 29.5 MCHC 31.9 L RDW 13.2 Plt Count 323 MPV 9.7 Immature Gran % 0.6 Neutrophils % 73.3 Lymphocytes % 14.7 Monocytes % 7.7 Eosinophils % 2.5 Basophils % 1.2 Nucleated RBC % 0.0 Absolute Neutrophils 4.92 Absolute Lymphocytes 0.99 L Absolute Monocytes 0.52 Absolute Eosinophils 0.17 Absolute Basophils 0.08 Sodium 145 Potassium 3.5 Chloride 108 H Carbon Dioxide 28.0 Anion Gap 9.0 BUN 15 Creatinine 1.2 H Est GFR (CKD-EPI 2020) 44.36 Glucose 112 H Calcium 8.5 Magnesium 2.1 TSH 1.61
--- NOTE | 2024-10-01 09:52 | PT.INTREAT ---
PT Notes Visit Reasons: UTI,hypertension,dizziness,weakness Physical Therapy Inpatient Supplemental Evaluation for BPPV and Treatment Note Patient Profile/Admitting Diagnosis: Per request of ECOLOGICAL ECONOMIST Sofia patient needed assessment for BPPV due to persistent symptoms of room spinning or bed spinning when she tries to move that were so much intense yesterday it affected her walking. Patient declined yesterday's attempt at assessment due to fatigue and symptom exacerbation induced by short walk from bed to nurse's station at the ED. Patient more amenable to doing testing this morning after having talked with her daughter and her brother Marcos (who had the same symptoms as she had in the past) about it. 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 Patient reported sensation of spinning and bed spinning when she first tried sitting up at edge of bed during yesterday's eval at the ED. She was able to walk a short distance but was highly unstable this PT needed to provide support to prevent loss of balance. Sitting up from lying down caused her symptoms to worsen and for her to dry heave. Onset: 09/30/2023Sunday dictating machine typist when she tried to sit up at edge of bed from lying Quality: room spinning, bed rolling Duration: Continuous since onset , worse with positional change especially sit<>stand and stand<>sit Previous Episodes: Has had previous episodes but not this bad Exacerbating Factors: Positional change, worse with supine<>sit and sit<>stand Headache: Mild headache Neck ache: Mild right side ache which she said has been long-standing Nausea/Vomitting: Dry heaved twice before and after the short walk Hearing Loss: None Tinnitus: None Fullness in Ear: Some in the L ear Imbalance: Moderate with turning at time of evaluation Red Flags: Visual changes: None Dysphagia or Dysarthria: None Facial Weakness: None Incoordination: None Prior Level of Function: Independent with mobility ADLs Current Level of Function: Very cautious with movement, only managed to walk 10 feet + 10 feet with worsening of symptoms Previous Treatment: None OBJECTIVE: Posture: Mildly kyphoic Observation: Highly guarded and slow movement transitions, with limited head motions during gait, transfers and bed mobility Mental Status: A and O as to person and purpose; very apprehensive about moving Vital Signs: Closely monitored by nursing staff ROM: Cervical ROM: Needed to passively move head into 10 degrees more of extension as patient was only actively able to extend to only about 20 during Marcella-hallpike testing and to about 15 degrees more of passive neck rotation while doing the Supine Head Roll Test Strength: Cervical muscle strength: 3-/5 Bed Mobility/Transfers: Supine to sit contact guard assist Sit to supine contact guard assist Sit to stand contact guard assist Stand to sit contact guard assist Gait: 150 feet + 150 feet with FWW with contact guard assist using FWW, wheelchair follow provided. Trunk and head rotation limited. Step height and length asymmetric. Reported 4-5/10 chronic pain in the R knee that subsided with rest Special Tests: Rhomberg: Minimal mediolateral sway but no LOB Coordination: Intact but unable to sustain for more than a minute Fine Motor: Intact Spontaneous nystagmus: Absent Smooth pursuit: Intact Gaze and gaze holding: Conjugate; Intact Saccade: Intact Head Impulse Test: Negative Marcella-Halpike: Negative Supine Roll Test: Positive geotropic nystagmus during testing of the R horizontal canal Balance: Static Sitting: Good Dynamic Sitting: Good Static Standing: Good Dynamic Standing: Fair Special Tests: Mobility Limitations Standardized Measure [facility] 6 clicks Basic Mobility Inpatient Short Form: Raw Score: 18 CMS Score: 47% deficit Informed Consent/Education: Patient was instructed in purpose of PT consult and plan of care. Agreeable to proceed with performance of Marcella-Hallpike maneuver and supine head roll test as well as to repositioning Gufoni maneuver. 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 Patient was agreeable to canalith repositioning maneuver using Gufoni's technique x 2 with good response. Patient presents with clinical signs and symptoms consistent with current/admitting diagnoses that have resulted to mobility limitations, gait instability, generalized weakness, and overall ADL decline as demonstrated by the following impairment level findings: 1. Impaired sitting/standing balance 2. Impaired activity tolerance 3. Sensation of spinning/rolling (resolved after CRP) Impairments are contributing to the following functional limitations: 1. Increased completion time for mobility ADL performance 2. Increased risk for falls Patient is assessed as a 03132 moderate complexity based on the following: History: 84-year-old male with past medical history as indicated above Examination: Demonstrable impairment above Presentation: Evolving Decision Makin moderate complexity Goals: Goals X1 week 1. Supine-Sit independent 2. Sit-Supine independent 3. Sit-Stand independent 4. Stand-Sit independent 5. Bed-Chair independent 6. Chair-Bed independent 7. Independent gait on level surface with use of least restrictive device for at least 300 feet without report of pain nor dyspnea 8. Independent stair negotiation while holding onto bilateral rails for at least 10 steps without report of pain nor dyspnea 9. Independent with home exercise program 10. Good static and dynamic standing balance/tolerance Plan of Care/Treatment Plan: Continue with outpatient PT services for continued vestibular rehabilitation and functional mobility retraining to allow full return to independent mobility performance. Patient is unable to perform maneuver on her own at home due to age and will need outpatient PT for accurate performance of corrective maneuver. DISCHARGE RECOMMENDATIONS: [] Home with no services [] [] Home with services [specify] [X] Home with outpatient PT for re-evaluation and continued vestibular rehab for R horizontal canal BPPV [] SNF for continued rehabilitation [] [] Shelter Care [] [] SNF versus LTC based on ability to participate and progress [] TREATMENT CODE/TIME: 68358 x 68 minutes for 5 units (9:52-11:10).
[2024-10-01 11:12] VITALS: BP 155/92; PULSE 67; RESP 17; TEMP 36.8; O2SAT 98
--- NOTE | 2024-10-01 12:12 | DSE_ITS ---
Date of service: 10/01/24 Time of Service: 12:13 DS: Diagnosis Discharge Diagnosis (1) Hypertensive urgency: Status: Acute (2) Vertigo: Status: Acute (3) Nausea: Status: Inactive (4) UTI (urinary tract infection): Status: Acute (5) Falls frequently: Status: Acute (6) Hypomagnesemia: Status: Resolved (7) Essential hypertension: (8) Atrial fibrillation: (9) Contraindication to deep vein thrombosis (DVT) prophylaxis: Status: Acute Discharge Plan Disposition Patient Disposition: Home Condition: Improving Discharge Details Reason For Visit: UTI,hypertension,dizziness,weakness Admit Date/Time: 09/30/24 10:03 Admit Provider: Jose Naidu Attending Provider: Jose Naidu Primary Care Provider: Patricia Garza Hospital Course Hospital Course: This 84-year-old female patient with a past medical history of recurrent UTIs, seen in December 2023 for dizziness related to atrial fibrillation, frequent falls, lung nodule, depression, hypertension, GERD, CVA with left-sided residual deficit, atrial fibrillation on metoprolol and Eliquis, hyperlipidemia and osteoporosis presented today to the ED at [facility] via EMS for evaluation of dizziness, nausea, lightheadedness and difficulty ambulating starting the day prior to presentation. The patient reported feeling unable to take care of of herself safely at home but was able to walk out to the ambulance and walk from the stretcher to the bed in the ED. The patient denied fever, chest pain, shortness of breath, upper respiratory infection type symptoms, abdominal pain. The patient reported a mild headache. Blood pressure in the emergency room ranged from 192/87 to 209/122; the patient was without tachycardia or tachypnea. Workup in the ED was significant for a UA that was positive for leukocyte esterase. CBC was unremarkable. BMP showed a BUN and creatinine at 21 and 1.1 within patient baseline. Magnesium was 1.7. Head CT was negative for any acute findings. In the ED IV ceftriaxone, zofran and oral amlodipine, meclizine were administered . PT was consulted with recommendation for home health PT for continued balance strength and home safety evaluation and functional mobility training with the continued use of the hinge knee brace when out of bed to reduce fall risk at home. The hospitalist was consulted and the patient admitted for observation to the medical surgical floor for evaluation and management of UTI, hypomagnesemia, hypertensive urgency, dizziness, and difficu lty ambulating. The patient is a DNR/DNI. The patient denies change in vision, fever, chest pain, vomiting, hematochezia, reported last BM as diarrhea on Sunday; denies dysuria but reporting cloudy urine.The patient has increased dizziness when turning in bed, and dry heaves s/p position change.Reporting that the bed is spinning. During the stay,blood pressure control was achieved with amlodipine and ongoing metoprolol.Scopolamine patch was applied with improvement of vertigo symptoms. The Today, physical therapy completed their evaluation and recommended vestibular rehabilitation as an outpatient.The urine culture only showed normal gram positive rachna. Ceftriaxone was stopped. The patient reports feeling better, sitting in the chair without further dizziness or spinning sensation. The patient will be discharged home on short course of scopolamine patches to be removed every 3 days and then replaced; further management to be discussed with PCP during follow-up appointment planned within 7 days of discharge.Patient reminded to take her blood pressure medicines as ordered and to ambulate with her walker at all times. Discussed with Dr. Naidu [place] Meds and New Rx's Prescriptions: New scopolamine base 1 mg over 3 days Patch 3 Day 1 mg transdermal Q72H Qty: 4 0RF docusate sodium [Colace] 100 mg Capsule 100 mg PO DAILY Qty: 30 0RF Continued diclofenac sodium 1 % gel 2 - 4 g topical QID PRN (Reason: pain) Qty: 100 0RF Rx Instructions: 2G for upper extremity joints; 4G for lower extremity joints acetaminophen 500 mg tablet 500 mg PO Q6H PRN (Reason: pain) Prolia 60 MG/1 ML syringe 60 mg SQ [id number] Patient Comments: 07/09/13 per pt not due until next month, DCW calcium-vitamin D3-vitamin K 1 EACH tablet,chewable 1 ea PO DAILY amlodipine 5 mg tablet 5 mg PO DAILY Qty: 90 3RF apixaban 2.5 mg tablet 2.5 mg PO BID Qty: 180 3RF bupropion HCl 300 mg tablet extended release 24 hr 300 mg PO QAM Qty: 90 3RF fenofibrate nanocrystallized 48 mg tablet 48 mg PO DAILY Qty: 90 3RF metoprolol succinate 50 mg tablet extended release 24 hr See Rx Instructions .ROUTE .COMPLEX Qty: 90 3RF Dose Instruction: TAKE 1 TABLET BY MOUTH DAILY Rx Instructions: TAKE 1 TABLET BY MOUTH DAILY omeprazole 40 mg capsule,delayed release(DR/EC) See Rx Instructions .ROUTE .COMPLEX Qty: 180 3RF Dose Instruction: TAKE 1 CAPSULE BY MOUTH TWICE A DAY Rx Instructions: TAKE 1 CAPSULE BY MOUTH TWICE A DAY guar gum Powder 0.25 tbsp PO DAILY Patient Comments: BENEFIBER Rx Instructions: mix into at least 4 oz water or juice before administering fluticasone furoate-vilanterol [Breo Ellipta] 200-25 mcg/dose Blister With Device 1 inh INHALATION DAILY albuterol sulfate 90 mcg/actuation Hfa Aerosol Inhaler 2 puff INHALATION Q6H PRN PRN Discharge Instructions Instructions: Urinary tract infections in adults, High blood pressure in adults, High blood pressure emergencies, Weakness Stand Alone Forms: Nursing Discharge Form Referrals: Diann Gomez DPT [DOCTOR OF PHYSICAL THERAPY] - (Referral for vestibular rehabilitation services. Office will give you a call to set up appointment. ) Patricia Garza NP [Primary Care Provider] - 10/07/24 4:00 pm (F/u with PCP within 7 days of discharge ) Activity:: Activity as Tolerated Equipment/Supplies:: Walker Diet:: heart healthy Discharge Orders Discharge Orders: Discharge Order (Routine); Ordered 10/01/24 Ordered By: Sofia Whelan DS: Summary Time Spent with Patient providing and/or coordinating discharge services: Greater than 30 minutes Status at Discharge Functional status at discharge: independent ambulation Overall status at discharge: patient is progressing back to baseline Mental Status: mental status grossly normal Speech and Movement: speech and movement normal Mood: congruent mood Affect: normal affect Quality:SDOH Health Related Social Needs: No Data to Display Exam Narrative Exam Narrative: Constitutional The patient sitting in chair, reporting no furhter headache or other discomfort, denies dizziness at this layla HENMT:Facial structures with normal appearance Eyes: Well aligned Neuro:alert and oriented X3 non-focal- left ext weakness d/t past CVA Resp: Unlabored breathing, clear lung bilaterally Cardio: irregular, S1, S2, no murmur GI: Abdomen is not distended, soft and non tender, bowel sounds are present Integumentary: No skin lesions or jody exposed skin Psych: RASS 0, normal mood and affect. Psych Mental Status: mental status grossly normal Speech and Movement: speech and movement normal Mood: congruent mood Affect: normal affect DS: Data Vitals/I&O Vitals and I&O: Vital Signs Temperature 36.8 C 10/01/24 11:12 Temperature Source Temporal Artery Scan 10/01/24 11:12 Pulse 67 10/01/24 11:12 Pulse Rhythm Irregular 09/30/24 11:13 Pulse 84 09/30/24 04:50 Respiratory Rate 17 10/01/24 11:12 Respiratory Effort Normal 09/30/24 11:13 Respiratory Depth Normal 09/30/24 11:13 Respiratory Pattern Normal 09/30/24 11:13 Blood Pressure 155/92 H 10/01/24 11:12 Blood Pressure Mean 219 09/30/24 07:25 Blood Pressure Position Sitting 09/30/24 02:10 Pulse Oximetry 98 10/01/24 11:12 Oxygen Delivery Method Room Air 10/01/24 11:12 Oxygen Flow Rate 0 10/01/24 11:12 Pain Level 0 10/01/24 11:12 Comment Pt requested to not have vitals taken at 03:00 10/01/24 02:53 Intake & Output 09/30/24 10/01/24 10/01/24 23:59 11:59 23:59 Intake Total 150 / 950 Output Total 150 / 150 100 / 100 Balance 0 / 800 -100 / -100 Intake: IV 50 / 610 Oral 100 / 340 Output: Urine 150 / 150 100 / 100 Other: Urine Color Yellow Yellow Urine Appearance Clear Clear Urine Odor Normal Emesis Description Retching Data Completed and Pending Labs on day of discharge: Labs from last 24 hours 10/01/24 05:50 WBC 6.72 RBC 4.55 Hgb 13.4 Hct 42.0 MCV 92 MCH 29.5 MCHC 31.9 L RDW 13.2 Plt Count 323 MPV 9.7 Immature Gran % 0.6 Neutrophils % 73.3 Lymphocytes % 14.7 Monocytes % 7.7 Eosinophils % 2.5 Basophils % 1.2 Nucleated RBC % 0.0 Absolute Neutrophils 4.92 Absolute Lymphocytes 0.99 L Absolute Monocytes 0.52 Absolute Eosinophils 0.17 Absolute Basophils 0.08 Sodium 145 Potassium 3.5 Chloride 108 H Carbon Dioxide 28.0 Anion Gap 9.0 BUN 15 Creatinine 1.2 H Est GFR (CKD-EPI 2021) 44.36 Glucose 112 H Calcium 8.5 Magnesium 2.1 Preliminary micro results at discharge 09/30/24 04:58 Urine Culture - Preliminary Urine - Reflex from Ua Gram Positive Rachna,Mixed PFSH All Active Problems (Updated 10/01/24 @ 14:03 by Sofia Whelan APRN) Contraindication to deep vein thrombosis (DVT) prophylaxis (Acute) Vertigo (Acute) Hypertensive urgency (Acute) UTI (urinary tract infection) (Acute) Acute on chronic renal insufficiency (Acute) Pes anserinus bursitis of left knee (Acute) DEPO MEDROL 06/04/23 Depression (Chronic) Falls frequently (Acute) Degenerative joint disease of right hip (Acute) POCUS INJECTION 03/13/24 Painful total knee replacement, right (Acute) s/p revision of patellar component Dr. Dixon DOS: 09/06/22 Regurgitation and rechewing (Acute ~10/2021) 12/13/21 [facility], gastric emptying scan ordered and consult with Irrigator Valve Pipe Lung nodule < 6cm on CT (Acute) LEWIS (dyspnea on exertion) (Acute) Paraesophageal hernia (Acute) Urinary incontinence (Acute) Rib pain on left side (Acute) Left shoulder pain (Acute) Iliotibial band syndrome of right side (Acute) Anxiety and depression (Chronic 09/05/17) Anticoagulant long-term use (Acute) Hiatal hernia (Chronic) Adjustment disorder, unspecified (Acute 11/16/16) Gastroesophageal reflux disease (Chronic 04/28/16) Due to Hiatial Hernia Osteoporosis (Chronic 02/13/17) left hip T SCORE -3.3 Prolia inj q6m, first 01/2017, 02/25/21 Total T-Score: - 2.5 Medical History (Updated 10/01/24 @ 14:03 by Sofia Whelan APRN) Atrial fibrillation (01/22/18) Essential hypertension (04/28/16) History of CVA (cerebrovascular accident) (10/24/15) Dry Stroke, 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) Hyperlipidemia (04/28/16) [place] angioma Seborrheic keratoses Actinic keratosis Keratoacanthoma (~05/2022) [facility]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 Brother Diabetes Brother Diabetes Brother Diabetes Brother Diabetes Brother Diabetes Brother Diabetes Social History Smoking/Tobacco Use Status: Former Tobacco Use Quit Date: 10/29/85 Tobacco: How many years used: 25 Smoking risk assessment performed?: Yes Alcohol Intake: never Drug use: Never Substance use type: does not use Household members: none Housing: apartment Number of Children: 4 Current gender identity: female What type of physical activity do you participate in: none Do you feel safe at home: Yes Do you feel safe in your relationship?: Yes Time Spent with Patient Time Spent with Patient: 70-84 minutes4 Time was spent: preparing to see the patient(eg.review tests), obtaining and/or reviewing separately otained hiistory, ordering medications,tests, procedures, referring, communicating with other health patient care assistant, indepentently interpreting results, counseling the patient and care coordination
--- NOTE | 2024-10-01 14:14 | PHA.REVIEW2 ---
Pharmacy Admission Review Admission Clinical Review Admission Pharmacy Review: Contraindication to deep vein thrombosis (DVT) prophylaxis (Acute) Vertigo (Acute) Hypertensive urgency (Acute) UTI (urinary tract infection) (Acute) Falls frequently (Acute) Penicillins Allergy (Unknown, Verified 09/30/24 02:10) Swelling/Edema/Itching nitrofurantoin Adverse Reaction (Severe, Verified 09/30/24 02:10) Diarrhea ciprofloxacin (From Cipro) Adverse Reaction (Intermediate, Verified 09/30/24 02:10) Dizziness/[place] Sulfa (Sulfonamide Antibiotics) Adverse Reaction (Unknown, Verified 09/30/24 02:10) GI symptoms Resuscitation Status DNR/DNI Height 4 ft 11 in Weight 63.503 kg Comments Comments/Follow Ups: Head CT-unremarkable Pharmacy Admission Review Renal Dosing Renal Dosing: BUN 15 mg/dL (7-18) 10/01/24 05:50 Creatinine 1.2 mg/dL (0.55-1.02) H 10/01/24 05:50 CrCl~34ml/min Anticoagulation Anticoagulation: Hgb 13.4 g/dL (11.2-15.7) 10/01/24 05:50 Hct 42.0 % (36.0-46.0) 10/01/24 05:50 Plt Count 323 10^3/uL (130-400) 10/01/24 05:50 Creatinine 1.2 mg/dL (0.55-1.02) H 10/01/24 05:50 Relevant Labs Relevant Labs: Sodium 145 mmol/L (136-145) 10/01/24 05:50 Potassium 3.5 mmol/L (3.5-5.1) 10/01/24 05:50 Chloride 108 mmol/L (98-107) H 10/01/24 05:50 Magnesium 2.1 mg/dL (1.8-2.4) 10/01/24 05:50 Cardiac Review Cardiac Review: Troponin I 6 ng/L (<or=51) 09/30/24 03:54 BP, HR, EF%: Reviewed (BP 155/92, HR 60-70's) Comments Comments/Follow Ups: Head CT-unremarkable
[2024-10-01] MEDS: Scopolamine 1 MG/3 DAYS PATCH TD (14:33)
== END 2024-10-01 15:14 | disposition home or self-care (01) ==
LOC: ER 07:15 → MS 11:11
PROVIDERS: Emergency Medicine; Nurse Practitioner Acute Care; Admitting Provider Hospitalist; Emergency Provider Emergency Medicine; PCP Nurse Practitioner; Visit Provider Hospitalist
DX: I16.0 Hypertensive urgency (principal); N39.0 Urinary tract infection, site not specified; R42 Dizziness and giddiness; R11.0 Nausea; R29.6 Repeated falls; E83.42 Hypomagnesemia; I48.0 Paroxysmal atrial fibrillation; I48.92 Unspecified atrial flutter; Z79.899 Other long term (current) drug therapy; R91.1 Solitary pulmonary nodule; K21.9 Gastro-esophageal reflux disease without esophagitis; Z79.01 Long term (current) use of anticoagulants; E78.5 Hyperlipidemia, unspecified; I69.354 Hemiplegia and hemiparesis following cerebral infarction affecting left non-dominant side; K44.9 Diaphragmatic hernia without obstruction or gangrene; R32 Unspecified urinary incontinence; Z96.653 Presence of artificial knee joint, bilateral; I12.9 Hypertensive chronic kidney disease with stage 1 through stage 4 chronic kidney disease, or unspecified chronic kidney disease; N18.9 Chronic kidney disease, unspecified; F41.8 Other specified anxiety disorders
CPT/HCPCS: 00123; 36415; 80048; 80053; 93005; 96361; 96365; 96366; 96367; 96375; 96376; 97112; 97162; 97530; 99285; 70450; 81003; 81015; 83735; 84443; 84484; 85025; 87086; 93010; 99223; 99239; G0378; J0696; J2405; J3475

== ENCOUNTER 2024-10-02 10:50 | Inpatient (IN) | payer MEDICARE, MEDICAID, SELFPAY ==
[2024-10-02] VITALS (53 sets, daily range): BP systolic 75–192; BP diastolic 10–139; PULSE 59–185; RESP 13–31; TEMP 36.2–36.8; O2SAT 95–99
--- NOTE | 2024-10-02 11:15 | RT.EKG_ITS ---
APPROVED REPORT Exam: Resting ECG Reason for Exam: weakness Patient Location: E HR:76 bpm ECG Measurements Heart Rate 76 AXIS MD [id number] P [id number] QRSd 92 QRS 23 QT 419 T 226 QTc 470 Conclusion Atrial fibrillation...? atrial activity limited interp 2/t artifact
--- NOTE | 2024-10-02 11:15 | DI.CT_ITS ---
Exam(s) CT BRAIN NECK CTA EXAM: CT BRAIN NECK CTA CLINICAL HISTORY: aphasia. TECHNIQUE: Imaging Protocol: Axial CT angiography was performed with multi-slice acquisition and mu lti-planar and MIP reconstructions. CONTRAST MATERIAL: Intravenous: Omnipaque 350 Contrast volume:70 ml COMPARISON: CR,XR XR PORTABLE CHEST AP from 06/07/[address] HEAD WO from 09/30/2024 FINDINGS: CT Head W/O and W contrast: Ventricles and Extra axial spaces: Normal in size and morphology for the patient's age. Hemorrhage: None. Cerebral parenchyma: No evidence of acute infarct or mass. Old right frontal infarcts. White matter changes small vessel disease. No new abnormalities. Midline shift: None. Brainstem/Cerebellum: No acute findings.. Calvarium: Hyperostosis frontalis interna Visualized Paranasal sinuses/Mastoids: Clear. Soft Tissues: Unremarkable. Enhancement: Normal. CTA Brain W: Internal Carotid Arteries: Petrous: Normal. Cavernous: Normal. Cerebral: Normal. Middle Cerebral Arteries: Right: No aneurysm, occlusion or significant stenosis. Left: No aneurysm, occlusion or significant stenosis. Anterior Cerebral Arteries: Right: No aneurysm, occlusion or significant stenosis. Left: No aneurysm, occlusion or significant stenosis. Posterior cerebral Arteries: Right: No aneurysm, occlusion or significant stenosis. Left: No aneurysm, occlusion or significant stenosis. Vertebral Arteries: Right: No aneurysm, occlusion or significant stenosis. Left: No aneurysm, occlusion or significant stenosis. Basilar Artery: No aneurysm, occlusion or significant stenosis. CTA Neck W: Common Carotid: Right: Mild calcification at the bulb. No dissection, occlusion or significant stenosis. Left: Minimal calcification at the bulb. No dissection, occlusion or significant stenosis. External Carotid: Right: No dissection, occlusion or significant stenosis. Left: No dissection, occlusion or significant stenosis. Internal Carotid: Both internal carotid arteries course toward the midline in the neck.: Not right of the 2 long which. Right: no dissection, occlusion or significant stenosis. Left: No dissection, occlusion or significant stenosis. Vertebral Artery: Right: No dissection, occlusion or significant stenosis. Left: No dissection, occlusion or significant stenosis. Lung Apices: No acute findings. Bones: No acute abnormality. Advanced degenerative changes in the cervical spine. Soft Tissues: Somewhat limited evaluation due to motion artifact. IMPRESSION: 1. CTA brain: No evidence vascular occlusion or significant narrowing. No evidence of aneurysm. 2. Head CT: Old right frontal infarct. No acute abnormality. 3. CTA neck: Mild plaque at the common carotid bulbs but no evidence of significant stenosis. Vertebr al arteries appear normal. RADIATION DOSE DELIVERED: 1,993.9mGy.cm Total DLP DATA REPOSITORY: All CT scans at this facility are submitted to the National Radiology Data Registry (NRDR) Dose Index Registry (DIR) with the [employer] (ACR). RADIATION OPTIMIZATION: All CT scans at this facility use at least one of these dose optimization te chniques: automated exposure control; mA and/or kV adjustment per patient size (includes targeted exa ms where dose is matched to clinical indication); or iterative reconstruction. Pattern simple cyst
--- NOTE | 2024-10-02 11:15 | DI.RAD_ITS ---
Exam(s) XR CHEST 2V PA LATERAL EXAM: XR CHEST 2V PA LATERAL CLINICAL HISTORY: weakness TECHNIQUE: 2D digital imaging was performed. Two views. COMPARISON: CT CT ABDOMEN PELVIS WO from 01/01/2024 FINDINGS: Exam is limited by overlying clothing and arm position. HEART: Upper limits of normal to mildly enlarged. Aorta: Not dilated. PULMONARY VASCULATURE: Normal. MEDIASTINUM: Unremarkable. LUNGS: Clear. PLEURAL SPACE: No pleural effusion or pneumothorax. BONE:Stable T12 compression fracture. SOFT TISSUES: Unremarkable. IMPRESSION: No acute abnormality. DATA REPOSITORY: RADIATION DOSE DELIVERED:
[2024-10-02 11:55] LABS: Abs Immature Grans 0.05 10^3/uL (0.0-0.06); Absolute Basophil Count 0.06 10^3/uL (0.0-0.2); Absolute Eosinophil Count 0.18 10^3/uL (0.0-0.7); Absolute Lymphocyte Count 1.08 10^3/uL (1.2-3.4); Absolute Monocyte Count 0.72 10^3/uL (0.1-0.8); Absolute Neutrophil Count 4.79 10^3/uL (1.2-6.7); Basophils % 0.9 %; Eosinophils % 2.6 %; HCT 38.8 % (36.0-46.0); HGB 12.5 g/dL (11.2-15.7); Immature Grans % 0.7 %; Lymphocytes % 15.7 %; MCH 29.8 pg (27.0-33.0); MCHC 32.2 % (32.0-36.0); MCV 93 fL (80-95); MPV 9.3 fL (8.0-11.0); Monocytes % 10.5 %; Neutrophils % 69.6 %; Platelet Count 297 10^3/uL (130-400); RBC 4.19 10^6/uL (3.93-5.22); RDW 13.5 % (11.7-14.6); RDW-SD 45.5 fL; WBC 6.88 10^3/uL (4.4-10.8)
[2024-10-02] MEDS: Normal Saline - Diluent 50 ML VIAL IJ (12:37)
[2024-10-02 12:43] LABS: ALT 16 U/L (14-59); AST 17 U/L (15-37); Albumin 3.6 g/dL (3.4-5.0); Alkaline Phosphatase 70 U/L (46-116); Anion Gap 10.4 mmol/L (3-11); BUN 21 mg/dL (7-18); Bilirubin, Total 0.23 mg/dL (0.2-1.0); CO2 26.6 mmol/L (21.0-32.0); CREATININE 1.3 mg/dL (0.55-1.02); Calcium 8.2 mg/dL (8.5-10.1); Chloride 107 mmol/L (98-107); Glucose 95 mg/dL (74-106); Lipase 10 U/L (<78); Magnesium 1.9 mg/dL (1.8-2.4); Potassium 3.9 mmol/L (3.5-5.1); Sodium 144 mmol/L (136-145); TSH (W/Ref FT4) 1.58 uIU/mL (0.36-3.74)
[2024-10-02] MEDS: Omnipaque 350 MG/ML 100 ML BTL IJ (12:48)
[2024-10-02 13:54] LABS: Bilirubin Negative (Negative); Blood Negative (Negative); Clarity Clear (Clear); Glucose Negative (Negative); Ketones Negative (Negative); Leukocyte Esterase Negative (Negative); Nitrite Negative (Negative); Urobilinogen 0.2 mg/dL (Up to 0.2); pH 6.5 (5-8)
[2024-10-02 14:00] LABS: Bacteria Rare HPF (Negative); C & S Indicated? No; Casts 0-2 Hyaline LPF (Negative); Crystals Negative HPF (Negative); Epithelial Cells Rare HPF (Negative); Mucus Trace (Negative); RBC 0-2 HPF (0-2); WBC 0-2 HPF (0-5)
--- NOTE | 2024-10-02 15:19 | ED.GENADUL_ITS ---
Discharge Plan Disposition Patient Disposition: Admit to [facility] Condition: Stable Discharge Details Clinical Impression: Altered mental status Admit Date/Time: 10/02/24 16:50 Admit Provider: Bebo Jerry Attending Provider: Bebo Jerry Primary Care Provider: Patricia Garza ED Provider: Cathi Pineda Discharge Data Discharge Date/Time-TO BE ENTERED AT DEPARTURE: 10/02/24 17:27 HPI <MANDY Vargas - Last Filed: 10/04/24 19:24> General Date/Time Provider Initiated Documentation: 10/02/24 10:56 . HPI Narrative: This 84-year-old female with history of chronic anticoagulation secondary to atrial fibrillation, and prior CVA, essential hypertension recent admission with hypertensive urgency presents with report of, aphasia, disorganized speech and confusion this morning. Patient reportedly was naked when she answered the door and her granddaughter showed up today. Last known well was about 7:00 last evening per family. This morning when her granddaughter called she was notably confused which is why granddaughter went over to check on patient. Patient denies any known falls or injuries. She states she is having trouble commun icating what her thoughts are. Granddaughter reports that she had a similar episode 7 years ago with a stroke although her left-sided sounds like was affected at that time. Patient denies any falls or injuries or new medications. She denies any chest pain or shortness of breath. She actually denies any pain complaints. Related Data Home Medications ?Medication ?Instructions ?Recorded ?Confirmed calcium 500 mg-vitamin D3 1,000 1 ea PO DAILY 11/16/16 10/02/24 unit-vitamin K 40 mcg chewable tablet denosumab 60 mg/mL subcutaneous 60 mg SQ [id number] 11/16/16 10/02/24 syringe (Prolia) albuterol sulfate 90 mcg/actuation 2 puff inhalation Q6H PRN PRN 12/29/22 10/02/24 aerosol inhaler fluticasone furoate 200 1 inh inhalation DAILY 12/29/22 10/02/24 mcg-vilanterol 25 mcg/dose inhalation powder (Breo Ellipta) acetaminophen 500 mg tablet 500 mg PO Q6H PRN pain 02/01/23 10/02/24 diclofenac sodium 1 % topical gel 2 - 4 g topical QID PRN pain #100 04/27/23 10/02/24 grams amlodipine 5 mg tablet 5 mg PO DAILY #90 tabs 02/19/24 10/02/24 apixaban 2.5 mg tablet 2.5 mg PO BID #180 tabs 02/19/24 10/02/24 bupropion HCl 300 mg 24 hr tablet, 300 mg PO QAM #90 tabs 02/19/24 10/02/24 extended release fenofibrate nanocrystallized 48 mg 48 mg PO DAILY #90 tabs 02/19/24 10/02/24 tablet metoprolol succinate 50 mg See Rx Instructions .Route 02/19/24 10/02/24 tablet,extended release 24 hr .COMPLEX #90 tabs omeprazole 40 mg capsule,delayed See Rx Instructions .Route 02/19/24 10/02/24 release .COMPLEX #180 caps guar gum 0.25 tbsp PO DAILY 02/27/24 10/02/24 diclofenac sodium 1 % topical gel 2 g topical QID #100 grams 10/01/24 10/02/24 (Voltaren Arthritis Pain) docusate sodium 100 mg capsule 100 mg PO DAILY #30 caps 10/01/24 10/02/24 (Colace) scopolamine base 1 mg over 3 days 1 mg transdermal Q72H #4 ea 10/01/24 10/02/24 transdermal patch nitrofurantoin 100 mg PO BID 10/02/24 10/02/24 monohydrate/macrocrystals 100 mg capsule Previous Rx's ?Medication ?Instructions ?Recorded diclofenac sodium 1 % topical gel 2 - 4 g topical QID PRN pain #100 04/27/23 grams amlodipine 5 mg tablet 5 mg PO DAILY #90 tabs 02/19/24 apixaban 2.5 mg tablet 2.5 mg PO BID #180 tabs 02/19/24 bupropion HCl 300 mg 24 hr tablet, 300 mg PO QAM #90 tabs 02/19/24 extended release fenofibrate nanocrystallized 48 mg 48 mg PO DAILY #90 tabs 02/19/24 tablet metoprolol succinate 50 mg See Rx Instructions .Route 02/19/24 tablet,extended release 24 hr .COMPLEX #90 tabs omeprazole 40 mg capsule,delayed See Rx Instructions .Route 02/19/24 release .COMPLEX #180 caps diclofenac sodium 1 % topical gel 2 g topical QID #100 grams 10/01/24 (Voltaren Arthritis Pain) docusate sodium 100 mg capsule 100 mg PO DAILY #30 caps 10/01/24 (Colace) scopolamine base 1 mg over 3 days 1 mg transdermal Q72H #4 ea 10/01/24 transdermal patch Allergies Allergy/AdvReac Type Severity Reaction Status Date / Time Penicillins Allergy Unknown Swelling/Ed Verified 10/02/24 10:57 bobo/Itching nitrofurantoin AdvReac Severe Diarrhea Verified 10/02/24 10:57 ciprofloxacin (From Cipro) AdvReac Intermediate Dizziness/L Verified 10/02/24 10:57 ighthead Sulfa (Sulfonamide AdvReac Unknown GI symptoms Verified 10/02/24 10:57 Antibiotics) General Stated Complaint: AMS/LOC HAILEE: 4 Exam <MANDY Vargas - Last Filed: 10/04/24 19:24> Narrative Exam Narrative: Patient is alert and oriented x 3, pupils equal round reactive to light and accommodation, extraocular's intact, no visible signs of trauma, oropharynx patent, uvula midline, edentulous, cranial nerves II through XII intact, negative pronator drift, negative heel, aphasia, mild Course <MANDY Vargas - Last Filed: 10/04/24 19:24> Vital Signs Vital signs: Vital Signs Temperature 36.5 C 10/02/24 10:53 Pulse 77 10/02/24 10:53 Respiratory Rate 18 10/02/24 10:53 Blood Pressure 122/95 H 10/02/24 10:53 Pulse Oximetry 98 10/02/24 10:53 Temperature 36.5 C 10/02/24 10:53 Pulse 66 10/02/24 14:46 Pulse 73 10/02/24 14:46 Respiratory Rate 19 10/02/24 14:46 Respiratory Effort Normal, Non-Labored 10/02/24 12:03 Respiratory Depth Normal 10/02/24 12:03 Respiratory Pattern Normal 10/02/24 12:03 Blood Pressure 174/102 H 10/02/24 14:46 Blood Pressure Mean 111 10/02/24 14:46 Pulse Oximetry 95 10/02/24 11:02 Pain Level 3 10/02/24 10:53 Lab/Test Results Lab/Test Results: Laboratory Tests Range/Units 10/02/24 10/02/24 10/02/24 11:43 12:00 13:46 WBC (4.4-10.8) 10^3/uL 6.88 RBC (3.93-5.22) 10^6/uL 4.19 Hgb (11.2-15.7) g/dL 12.5 Hct (36.0-46.0) % 38.8 MCV (80-95) fL 93 MCH (27.0-33.0) pg 29.8 MCHC (32.0-36.0) % 32.2 RDW (11.7-14.6) % 13.5 Plt Count (130-400) 10^3/uL 297 MPV (8.0-11.0) fL 9.3 Immature Gran % % 0.7 Neutrophils % % 69.6 Lymphocytes % % 15.7 Monocytes % % 10.5 Eosinophils % % 2.6 Basophils % % 0.9 Nucleated RBC % (0.0-0.3) % 0.0 Absolute Neutrophils (1.2-6.7) 10^3/uL 4.79 Absolute Lymphocytes (1.2-3.4) 10^3/uL 1.08 L Absolute Monocytes (0.1-0.8) 10^3/uL 0.72 Absolute Eosinophils (0.0-0.7) 10^3/uL 0.18 Absolute Basophils (0.0-0.2) 10^3/uL 0.06 Sodium Cancelled 144 Potassium Cancelled 3.9 Chloride Cancelled 107 Carbon Dioxide Cancelled 26.6 Anion Gap Cancelled 10.4 BUN Cancelled 21 H Creatinine Cancelled 1.3 H Est GFR (CKD-EPI 2020) Cancelled 40.30 Glucose Cancelled 95 Calcium Cancelled 8.2 L Magnesium Cancelled 1.9 Total Bilirubin Cancelled 0.23 AST Cancelled 17 ALT Cancelled 16 Alkaline Phosphatase Cancelled 70 Total Protein Cancelled 6.0 L Albumin Cancelled 3.6 Lipase Cancelled 10 TSH Cancelled 1.58 Urine Color (Yellow) Yellow Urine Clarity (Clear) Clear Urine pH (5-8) 6.5 Ur Specific Benton (1.005-1.025) 1.010 Urine Protein (Neg-Trace) mg/dL 30 H Urine Ketones (Negative) mg/dL Negative Urine Blood (Negative) Negative Urine Nitrite (Negative) Negative Urine Bilirubin (Negative) Negative Urine Urobilinogen (Up to 0.2) mg/dL 0.2 Ur Leukocyte Esterase (Negative) Negative Urine RBC (0-2) HPF 0-2 Urine WBC (0-5) HPF 0-2 Ur Epithelial Cells (Negative) HPF Rare Urine Crystals (Negative) HPF Negative Urine Bacteria (Negative) HPF Rare Urine Casts (Negative) LPF 0-2 Hyaline Urine Mucus (Negative) Trace Ur Culture Indicated? No Urine Glucose (Negative) mg/dL Negative Medical Decision Making <MANDY Vargas - Last Filed: 10/04/24 19:24> 84-year-old female presenting with acute aphasia and confusion this morning, fou nd by granddaughter last known well last evening. Recently discharged from this facility with hypertensive urgency. CTA head and neck does not show acute pathology. Labs stable for patient when compared to prior and urinalysis does not show evidence of acute abnormality. At this time patient is pending teleneuro assessment, her symptoms have dramatically improved and I suspect she has either had TIA or CVA, she would likely benefit from an MRI with observation. She does take Eliquis daily I will hold on aspirin and additional medication until teleneuro consultation and sign outpatient to [facility] pending teleneuro assessment. Blood pressure initially was 120/70, will continue to monitor. NIH stroke score of 1 Quality:SDOH Health Related Social Needs: Health related social needs housing instability, house d, with risk of homelessness(Z59.811) <Cathi Pineda NP - Last Filed: 10/02/24 21:05> Medical Records Medical records narrative: Care assumed from provider (Danny GALVAN) Please see their initial HPI, PE, and documentation. Discussed patient details and case and pending workup and disposition. Patient is hemodynamically stable, At the time of signout patient is in the middle of a teleneuro consult. ER attending Dr. Ely spoke with the teleneuro physician who recommended admission, MRI of the brain without, hold the Eliquis and load with aspirin only. Does appear that patient does have a right frontal stroke that was not there 3 days ago with a UTI. Will page hospitalist. [id number]: Spoke with Sofia with hospitalist team, regarding patient case in details she verbalized understanding is in agreement with the plan accepts patient for admission. Patient transported up to room in hemodynamically stable condition. This text was generated using [employer] dictation system, please disregard any oddities of phrase or misspellings. Lab Data Lab results reviewed: Yes I reviewed the patient's lab results. Labs: Laboratory Tests Range/Units 10/02/24 10/02/24 10/02/24 11:43 12:00 13:46 WBC (4.4-10.8) 10^3/uL 6.88 RBC (3.93-5.22) 10^6/uL 4.19 Hgb (11.2-15.7) g/dL 12.5 Hct (36.0-46.0) % 38.8 MCV (80-95) fL 93 MCH (27.0-33.0) pg 29.8 MCHC (32.0-36.0) % 32.2 RDW (11.7-14.6) % 13.5 Plt Count (130-400) 10^3/uL 297 MPV (8.0-11.0) fL 9.3 Immature Gran % % 0.7 Neutrophils % % 69.6 Lymphocytes % % 15.7 Monocytes % % 10.5 Eosinophils % % 2.6 Basophils % % 0.9 Nucleated RBC % (0.0-0.3) % 0.0 Absolute Neutrophils (1.2-6.7) 10^3/uL 4.79 Absolute Lymphocytes (1.2-3.4) 10^3/uL 1.08 L Absolute Monocytes (0.1-0.8) 10^3/uL 0.72 Absolute Eosinophils (0.0-0.7) 10^3/uL 0.18 Absolute Basophils (0.0-0.2) 10^3/uL 0.06 Sodium Cancelled 144 Potassium Cancelled 3.9 Chloride Cancelled 107 Carbon Dioxide Cancelled 26.6 Anion Gap Cancelled 10.4 BUN Cancelled 21 H Creatinine Cancelled 1.3 H Est GFR (CKD-EPI 2020) Cancelled 40.30 Glucose Cancelled 95 Calcium Cancelled 8.2 L Magnesium Cancelled 1.9 Total Bilirubin Cancelled 0.23 AST Cancelled 17 ALT Cancelled 16 Alkaline Phosphatase Cancelled 70 Total Protein Cancelled 6.0 L Albumin Cancelled 3.6 Lipase Cancelled 10 TSH Cancelled 1.58 Urine Color (Yellow) Yellow Urine Clarity (Clear) Clear Urine pH (5-8) 6.5 Ur Specific Benton (1.005-1.025) 1.010 Urine Protein (Neg-Trace) mg/dL 30 H Urine Ketones (Negative) mg/dL Negative Urine Blood (Negative) Negative Urine Nitrite (Negative) Negative Urine Bilirubin (Negative) Negative Urine Urobilinogen (Up to 0.2) mg/dL 0.2 Ur Leukocyte Esterase (Negative) Negative Urine RBC (0-2) HPF 0-2 Urine WBC (0-5) HPF 0-2 Ur Epithelial Cells (Negative) HPF Rare Urine Crystals (Negative) HPF Negative Urine Bacteria (Negative) HPF Rare Urine Casts (Negative) LPF 0-2 Hyaline Urine Mucus (Negative) Trace Ur Culture Indicated? No Urine Glucose (Negative) mg/dL Negative PFSH <MANDY Vargas - Last Filed: 10/04/24 19:24> All Active Problems (Updated 10/03/24 @ 17:36 by Doyna Mendez NP) Acute delirium (Acute) On deep vein thrombosis (DVT) prophylaxis (Acute) CVA (cerebral vascular accident) (Chronic) Alteration in speech (Acute) Altered mental status (Acute) Acute on chronic renal insufficiency (Acute) Pes anserinus bursitis of left knee (Acute) DEPO MEDROL 06/04/23 Depression (Chronic) Degenerative joint disease of right hip (Acute) POCUS INJECTION 03/13/24 Painful total knee replacement, right (Acute) s/p revision of patellar component Dr. Dixon DOS: 09/06/22 Regurgitation and rechewing (Acute ~10/2021) [place]/13/[place] [facility] [place] gastric emptying scan ordered and consult with Abe Teacher Lung nodule < 6cm on CT (Acute) LEWIS (dyspnea on exertion) (Acute) Paraesophageal hernia (Acute) Urinary incontinence (Acute) Rib pain on left side (Acute) Left shoulder pain (Acute) Iliotibial band syndrome of right side (Acute) Anxiety and depression (Chronic 09/05/17) Anticoagulant long-term use (Acute) Hiatal hernia (Chronic) Adjustment disorder, unspecified (Acute 11/16/16) Gastroesophageal reflux disease (Chronic 04/28/16) Due to Hiatial Hernia Osteoporosis (Chronic 02/13/17) left hip T SCORE -3.3 Prolia inj q6m, first 01/2017, 02/25/21 Total T-Score: - 2.5 Medical History (Updated 10/03/24 @ 17:36 by Donya Mendez NP) Falls frequently Atrial fibrillation (01/22/18) Essential hypertension (04/28/16) History of CVA (cerebrovascular accident) (10/24/15) Dry Stroke, 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) Hyperlipidemia (04/28/16) [place] angioma Seborrheic keratoses Actinic keratosis Keratoacanthoma (~05/2022) DH Derm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 Brother Diabetes Brother Diabetes Brother Diabetes Brother Diabetes Brother Diabetes Brother Diabetes Social History Smoking/Tobacco Use Status: Former Tobacco Use Quit Date: 10/29/85 Tobacco: How many years used: 25 Smoking risk assessment performed?: Yes Alcohol Intake: never Drug use: Never Substance use type: does not use Household members: none Housing: apartment Number of Children: 4 Current gender identity: female What type of physical activity do you participate in: none Do you feel safe at home: Yes Do you feel safe in your relationship?: Yes
--- NOTE | 2024-10-02 15:45 | RT.EKG_ITS ---
APPROVED REPORT Exam: Resting ECG Reason for Exam: Repeat Patient Location: E HR:66 bpm ECG Measurements Heart Rate 66 AXIS [place] [id number] P [id number] QRSd 81 QRS 19 QT 344 T [id number] QTc 369 Conclusion Atrial fibrillation...? atrial activity no ST segment or T wave abnormalities to suggest occlusive AR
[2024-10-02] MEDS: Aspirin 325 MG TAB PO (16:35)
--- NOTE | 2024-10-02 16:36 | W.PM.HP.N ---
Date of service: 10/02/24 Time of Service: 16:37 Assessment and Plan Assessment and plan (1) Altered mental status: Status: Acute Assessment and plan: Head CT was negative for acute findings; showing old right-sided infarct [facility] neurology consultation completed MRI in the morning Aspirin load and daily aspirin No Plavix recommendation Recommendation to hold Eliquis Will complete echo with bubble, telemetry and permissive hypertension. Will tolerate SBP 1 40-160 and call as needed to provider on-call High-intensity statin A1c and lipid panel ordered Will hold amlodipine and metoprolol Will not reorder scopolamine patch and try as needed meclizine for vertigo symptoms PT consult (2) CVA (cerebral vascular accident): Status: Chronic Assessment and plan: As above (3) Alteration in speech: Status: Acute Assessment and plan: As above (4) Acute on chronic renal insufficiency: Status: Acute Assessment and plan: CR 1.3 around baseline; no TYRESE BMP in the morning (5) Atrial fibrillation: Assessment and plan: Was on metoprolol succinate 12.5 orally daily will hold in the setting of permissive hypertension Eliquis also held as per recommendation by [facility] neuro Telemetry (6) Essential hypertension: Assessment and plan: Amlodipine on hold in the setting of permissive hypertension Call provider for SBP above 160 or symptoms of hypoperfusion (7) On deep vein thrombosis (DVT) prophylaxis: Status: Acute Assessment and plan: GLENN's Discussed with Dr. Jerry History of Present Illness History of Present Illness Chief Complaint: Altered mental status,speech disturbance Narrative: This 84-year-old female patient with a past medical history of recurrent UTIs, seen in December 2023 for dizziness related to atrial fibrillation, frequent falls, lung nodule, depression, hypertension, GERD, CVA with left-sided residual deficit, atrial fibrillation on metoprolol and Eliquis, hyperlipidemia and osteoporosis presented today to the ED at [facility] for evaluation of altered mental status, disorganized speech, confusion, aphasia and having been found by granddaughter without underwear and pants. The patient was discharged from the hospital yesterday after being workup for vertigo, hypertensive urgency and sent home with scopolamine patch and adjusted blood pressure medicine. On arrival to the ED the patient's blood pressure was in the 190s over 120s without tachycardia fever or hypoxia. Workup in the ED was scanned for a negative head CT showing only the old right sided infarct. CBC and chemistry studies were unremarkable. Neurology consult was completed with [facility] with recommendations for aspirin loading, without Plavix, MRI in the morning as well as other intervention management. Recommendation also made to hold Eliquis. The hospitalist team admitted the patient to the medical surgical floor for evaluation and management of altered mental status, speech disturbance, rule out CVA. When seen in the ED, patient was mildly aphasic and dysarthric otherwise NIH stroke scale remained negative. DNR/DNI status was confirmed. Patient reported initial headache this morning has now resolved. The patient denied fever, dizziness, chest pain, nausea, vomiting, diarrhea or dysuria. The patient reported the last bowel movement was Sunday when she had diarrhea. The granddaughter was present and would like to be reached if needed and will give information to the nursing staff in the ED. Review of Systems All systems reviewed & are unremarkable except as noted in HPI and below PFSH All Active Problems (Updated 10/02/24 @ 17:45 by Sofia Whelan APRN) On deep vein thrombosis (DVT) prophylaxis (Acute) CVA (cerebral vascular accident) (Chronic) Alteration in speech (Acute) Altered mental status (Acute) Acute on chronic renal insufficiency (Acute) Pes anserinus bursitis of left knee (Acute) DEPO MEDROL 06/04/23 Depression (Chronic) Degenerative joint disease of right hip (Acute) POCUS INJECTION 03/13/24 Painful total knee replacement, right (Acute) s/p revision of patellar component Dr. Dixon DOS: 09/06/22 Regurgitation and rechewing (Acute ~10/2021) 12/13/21 [facility] GI, gastric emptying scan ordered and consult with Test Lead Lung nodule < 6cm on CT (Acute) LEWIS (dyspnea on exertion) (Acute) Paraesophageal hernia (Acute) Urinary incontinence (Acute) Rib pain on left side (Acute) Left shoulder pain (Acute) Iliotibial band syndrome of right side (Acute) Anxiety and depression (Chronic 09/05/17) Anticoagulant long-term use (Acute) Hiatal hernia (Chronic) Adjustment disorder, unspecified (Acute 11/16/16) Gastroesophageal reflux disease (Chronic 04/28/16) Due to Hiatial Hernia Osteoporosis (Chronic 02/13/17) left hip T SCORE -3.3 Prolia inj q6m, first 01/2017, 02/25/21 Total T-Score: -2.5 Medical History (Updated 10/02/24 @ 17:45 by Sofia Whelan APRN) Falls frequently Atrial fibrillation (01/22/18) Essential hypertension (04/28/16) History of CVA (cerebrovascular accident) (10/24/15) Dry Stroke, 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) Hyperlipidemia (04/28/16) [place] angioma Seborrheic keratoses Actinic keratosis Keratoacanthoma (~05/2022) DH Derm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 Brother Diabetes Brother Diabetes Brother Diabetes Brother Diabetes Brother Diabetes Brother Diabetes Social History Smoking/Tobacco Use Status: Former Tobacco Use Quit Date: 10/29/85 Tobacco: How many years used: 25 Smoking risk assessment performed?: Yes Alcohol Intake: never Drug use: Never Substance use type: does not use Household members: none Housing: apartment Number of Children: 4 Current gender identity: female What type of physical activity do you participate in: none Do you feel safe at home: Yes Do you feel safe in your relationship?: Yes Meds Allergies and Home Medications Allergies Allergy/AdvReac Type Severity Reaction Status Date / Time Penicillins Allergy Unknown Swelling/Ed Verified 10/02/24 10:57 bobo/Itching nitrofurantoin AdvReac Severe Diarrhea Verified 10/02/24 10:57 ciprofloxacin (From Cipro) AdvReac Intermediate Dizziness/L Verified 10/02/24 10:57 ighthead Sulfa (Sulfonamide AdvReac Unknown GI symptoms Verified 10/02/24 10:57 Antibiotics) Home Medications ?Medication ?Instructions ?Recorded ?Confirmed ?Type calcium 500 mg-vitamin D3 1,000 1 ea PO DAILY 11/16/16 10/02/24 History unit-vitamin K 40 mcg chewable tablet denosumab 60 mg/mL subcutaneous 60 mg SQ [id number] 11/16/16 10/02/24 History syringe (Prolia) albuterol sulfate 90 mcg/actuation 2 puff inhalation Q6H PRN PRN 12/29/22 10/02/24 History aerosol inhaler fluticasone furoate 200 1 inh inhalation DAILY 12/29/22 10/02/24 History mcg-vilanterol 25 mcg/dose inhalation powder (Breo Ellipta) acetaminophen 500 mg tablet 500 mg PO Q6H PRN pain 02/01/23 10/02/24 History diclofenac sodium 1 % topical gel 2 - 4 g topical QID PRN pain #100 04/27/23 10/02/24 Rx grams amlodipine 5 mg tablet 5 mg PO DAILY #90 tabs 02/19/24 10/02/24 Rx apixaban 2.5 mg tablet 2.5 mg PO BID #180 tabs 02/19/24 10/02/24 Rx bupropion HCl 300 mg 24 hr tablet, 300 mg PO QAM #90 tabs 02/19/24 10/02/24 Rx extended release fenofibrate nanocrystallized 48 mg 48 mg PO DAILY #90 tabs 02/19/24 10/02/24 Rx tablet metoprolol succinate 50 mg See Rx Instructions .Route 02/19/24 10/02/24 Rx tablet,extended release 24 hr .COMPLEX #90 tabs omeprazole 40 mg capsule,delayed See Rx Instructions .Route 02/19/24 10/02/24 Rx release .COMPLEX #180 caps guar gum 0.25 tbsp PO DAILY 02/27/24 10/02/24 History diclofenac sodium 1 % topical gel 2 g topical QID #100 grams 10/01/24 10/02/24 Rx (Voltaren Arthritis Pain) docusate sodium 100 mg capsule 100 mg PO DAILY #30 caps 10/01/24 10/02/24 Rx (Colace) scopolamine base 1 mg over 3 days 1 mg transdermal Q72H #4 ea 10/01/24 10/02/24 Rx transdermal patch nitrofurantoin 100 mg PO BID 10/02/24 10/02/24 History monohydrate/macrocrystals 100 mg capsule Exam Narrative Exam Narrative: Frail elderly patient appearing older than age, without acute distress. Alert and oriented x 3; delayed in task execution, slight aphasia and mild dysarthria observed. PERRLA; cranial nerves II to XII intact Irregular heart rate, S1-S2, no murmur, pulses are palpable positive to all 4 extremities. Lungs are clear bilaterally Abdomen is non-acute, soft non-tender, bowel sounds are present No CVA tenderness or bladder distention Moves all 4 extremities without focal weakness Results Labs 10/02/24 11:43 10/02/24 12:00 Labs: Laboratory Results - last 24 hr 10/02/24 10/02/24 10/02/24 11:43 12:00 13:46 WBC 6.88 RBC 4.19 Hgb 12.5 Hct 38.8 MCV 93 MCH 29.8 MCHC 32.2 RDW 13.5 Plt Count 297 MPV 9.3 Immature Gran % 0.7 Neutrophils % 69.6 Lymphocytes % 15.7 Monocytes % 10.5 Eosinophils % 2.6 Basophils % 0.9 Nucleated RBC % 0.0 Absolute Neutrophils 4.79 Absolute Lymphocytes 1.08 L Absolute Monocytes 0.72 Absolute Eosinophils 0.18 Absolute Basophils 0.06 Sodium Cancelled 144 Potassium Cancelled 3.9 Chloride Cancelled 107 Carbon Dioxide Cancelled 26.6 Anion Gap Cancelled 10.4 BUN Cancelled 21 H Creatinine Cancelled 1.3 H Est GFR (CKD-EPI 2020) Cancelled 40.30 Glucose Cancelled 95 Calcium Cancelled 8.2 L Magnesium Cancelled 1.9 Total Bilirubin Cancelled 0.23 AST Cancelled 17 ALT Cancelled 16 Alkaline Phosphatase Cancelled 70 Total Protein Cancelled 6.0 L Albumin Cancelled 3.6 Lipase Cancelled 10 TSH Cancelled 1.58 Urine Color Yellow Urine Clarity Clear Urine pH 6.5 Ur Specific [place] 1.010 Urine Protein 30 H Urine Ketones Negative Urine Blood Negative Urine Nitrite Negative Urine Bilirubin Negative Urine Urobilinogen 0.2 Ur Leukocyte Esterase Negative Urine RBC 0-2 Urine WBC 0-2 Ur Epithelial Cells Rare Urine Crystals Negative Urine Bacteria Rare Urine Casts 0-2 Hyaline Urine Mucus Trace Ur Culture Indicated? No Urine Glucose Negative Last Vital Signs Temp 36.5 C 10/02/24 10:53 Pulse 185 H 10/02/24 15:45 Resp 17 10/02/24 15:50 BP 158/104 H 10/02/24 15:45 Pulse Ox 95 10/02/24 11:02 Time Spent Time spent with Patient: >75 minutes Time was spent: preparing to see the patient(eg.review tests), obtaining and/or reviewing separately otained hiistory, ordering medications,tests, procedures, referring, communicating with other health care management associate, indepentently interpreting results, counseling the patient and care coordination
--- NOTE | 2024-10-02 17:39 | W.PC.ACHO ---
Registration Status: Primary Language: Preferred Language: ED Information & Data Chief Complaint AMS/LOC 10/02/24 15:26 Triage Note increased confusion since 10/02/24 10:53 uti, VS stable, BS 131, no fall, no recent trauma, grand daughter was concerned . axox3 on arrival, does have some short term memory confusion, unable to remember conversations she had this am, but can remember what she had for breakfast this am Medical / Surgical History (Last Updated 09/30/24 @ 02:25 by Jose Alas MD) Falls frequently Atrial fibrillation (01/22/18) Essential hypertension (04/28/16) History of CVA (cerebrovascular accident) (10/24/15) Hyperlipidemia (04/28/16) [place] angioma Seborrheic keratoses Actinic keratosis Keratoacanthoma (~05/2022) Episode of recurrent major depressive disorder (10/17/16) Closed extra-articular fracture of distal end of right radius (01/31/17) (Last Reviewed 09/30/24 @ 02:25 by Jose Alas MD) Traumatic rupture of right quadriceps tendon (12/29/22) Status post total right knee replacement (11/20/11) Status post total left knee replacement H/O endoscopy (10/24/21) S/P repair of paraesophageal hernia (08/15/21) Open Carpal Tunnel release Cholecystectomy (01/10/18) Extraction of cataract Most Recent Vital Signs Temperature 36.5 C 10/02/24 10:53 Pulse 69 10/02/24 17:01 Pulse 63 10/02/24 17:01 Respiratory Rate 20 10/02/24 17:01 Respiratory Effort Normal, Non-Labored 10/02/24 12:03 Respiratory Depth Normal 10/02/24 12:03 Respiratory Pattern Normal 10/02/24 12:03 Blood Pressure 173/134 H 10/02/24 17:16 Blood Pressure Mean 149 10/02/24 17:16 Pulse Oximetry 95 10/02/24 11:02 Pain Level 3 10/02/24 10:53 Allergies Penicillins Allergy (Unknown, Verified 10/02/24 10:57) Swelling/Edema/Itching nitrofurantoin Adverse Reaction (Severe, Verified 10/02/24 10:57) Diarrhea Nitrofurantoin macro/monocrystal diarrhea and nausea ciprofloxacin (From Cipro) Adverse Reaction (Intermediate, Verified 10/02/24 10:57) Dizziness/Lighthead Sulfa (Sulfonamide Antibiotics) Adverse Reaction (Unknown, Verified 10/02/24 10:57) GI symptoms 09/06/22: pt reports mild urticaria Active Medications Generic Name Dose Route Start Last Admin Trade Name Claudia PRN Reason Stop Dose Admin Iohexol 100 ml 10/02/24 12:45 10/02/24 12:48 Omnipaque 350 Mg/Ml 100 Ml Btl IJ 11/01/24 23:59 70 ml DIRECTED MICHAEL Administration Sodium Chloride 50 ml 10/02/24 12:45 10/02/24 12:37 Normal Saline - Diluent 50 Ml Vial IJ 50 ml .FOR DI USE MICHAEL Administration IV IV Catheter Type [Right Upper Peripheral IV arm] IV Catheter Gauge [Right Upper 18 arm] Diagnostics 10/02/24 10/02/24 10/02/24 Range/Units 16:50 13:46 12:00 WBC (4.4-10.8) 10^3/uL RBC (3.93-5.22) 10^6/uL Hgb (11.2-15.7) g/dL Hct (36.0-46.0) % MCV (80-95) fL MCH (27.0-33.0) pg MCHC (32.0-36.0) % RDW (11.7-14.6) % Plt Count (130-400) 10^3/uL MPV (8.0-11.0) fL Immature Gran % % Neutrophils % % Lymphocytes % % Monocytes % % Eosinophils % % Basophils % % Nucleated RBC % (0.0-0.3) % Absolute Neutrophils (1.2-6.7) 10^3/uL Absolute Lymphocytes (1.2-3.4) 10^3/uL Absolute Monocytes (0.1-0.8) 10^3/uL Absolute Eosinophils (0.0-0.7) 10^3/uL Absolute Basophils (0.0-0.2) 10^3/uL Sodium 144 Potassium 3.9 Chloride 107 Carbon Dioxide 26.6 Anion Gap 10.4 BUN 21 H Creatinine 1.3 H Est GFR (CKD-EPI 2020) 40.30 Glucose 95 Hemoglobin A1c Pending Calcium 8.2 L Magnesium 1.9 Total Bilirubin 0.23 AST 17 ALT 16 Alkaline Phosphatase 70 Total Protein 6.0 L Albumin 3.6 Triglycerides Pending Total Cholesterol Pending LDL Cholesterol, Calc Pending HDL Cholesterol Pending Lipase 10 TSH 1.58 Urine Color Yellow (Yellow) Urine Clarity Clear (Clear) Urine pH 6.5 (5-8) Ur Specific [place] 1.010 (1.005-1.025) Urine Protein 30 H (Neg-Trace) mg/dL Urine Ketones Negative (Negative) mg/dL Urine Blood Negative (Negative) Urine Nitrite Negative (Negative) Urine Bilirubin Negative (Negative) Urine Urobilinogen 0.2 (Up to 0.2) mg/dL Ur Leukocyte Esterase Negative (Negative) Urine RBC 0-2 (0-2) HPF Urine WBC 0-2 (0-5) HPF Ur Epithelial Cells Rare (Negative) HPF Urine Crystals Negative (Negative) HPF Urine Bacteria Rare (Negative) HPF Urine Casts 0-2 Hyaline (Negative) LPF Urine Mucus Trace (Negative) Ur Culture Indicated? No Urine Glucose Negative (Negative) mg/dL 10/02/24 Range/Units 11:43 WBC 6.88 (4.4-10.8) 10^3/uL RBC 4.19 (3.93-5.22) 10^6/uL Hgb 12.5 (11.2-15.7) g/dL Hct 38.8 (36.0-46.0) % MCV 93 (80-95) fL MCH 29.8 (27.0-33.0) pg MCHC 32.2 (32.0-36.0) % RDW 13.5 (11.7-14.6) % Plt Count 297 (130-400) 10^3/uL MPV 9.3 (8.0-11.0) fL Immature Gran % 0.7 % Neutrophils % 69.6 % Lymphocytes % 15.7 % Monocytes % 10.5 % Eosinophils % 2.6 % Basophils % 0.9 % Nucleated RBC % 0.0 (0.0-0.3) % Absolute Neutrophils 4.79 (1.2-6.7) 10^3/uL Absolute Lymphocytes 1.08 L (1.2-3.4) 10^3/uL Absolute Monocytes 0.72 (0.1-0.8) 10^3/uL Absolute Eosinophils 0.18 (0.0-0.7) 10^3/uL Absolute Basophils 0.06 (0.0-0.2) 10^3/uL Sodium Cancelled Potassium Cancelled Chloride Cancelled Carbon Dioxide Cancelled Anion Gap Cancelled BUN Cancelled Creatinine Cancelled Est GFR (CKD-EPI 2020) Cancelled Glucose Cancelled Hemoglobin A1c Calcium Cancelled Magnesium Cancelled Total Bilirubin Cancelled AST Cancelled ALT Cancelled Alkaline Phosphatase Cancelled Total Protein Cancelled Albumin Cancelled Triglycerides Total Cholesterol LDL Cholesterol, Calc HDL Cholesterol Lipase Cancelled TSH Cancelled Urine Color (Yellow) Urine Clarity (Clear) Urine pH (5-8) Ur Specific [place] (1.005-1.025) Urine Protein (Neg-Trace) mg/dL Urine Ketones (Negative) mg/dL Urine Blood (Negative) Urine Nitrite (Negative) Urine Bilirubin (Negative) Urine Urobilinogen (Up to 0.2) mg/dL Ur Leukocyte Esterase (Negative) Urine RBC (0-2) HPF Urine WBC (0-5) HPF Ur Epithelial Cells (Negative) HPF Urine Crystals (Negative) HPF Urine Bacteria (Negative) HPF Urine Casts (Negative) LPF Urine Mucus (Negative) Ur Culture Indicated? Urine Glucose (Negative) mg/dL Intake and Output - 24 Hour Total 10/02/24 10:49 thru 10/02/24 10:53 Weight 63.503 kg Falls Risk Assessment History of Falls Previous History 10/02/24 10:58 Contributing Factors Confusion 10/02/24 10:58 Ambulatory Aids Independent 10/02/24 10:58 Tubes/Lines None 10/02/24 10:58 Gait Evaluation W/any additional score 10/02/24 10:58 Cognition No cognitive impairment 10/02/24 10:58 Fall Total Score 38 10/02/24 10:58 Level of Risk Moderate Risk 10/02/24 10:58 v v v v v v v v v Sending and/or Receiving Nurses: Please use comment section below to note any information pertinent to the patient hand-off not included above. Information / Comments: Report received from: Renee CALDWELL
[2024-10-02] MEDS: amLODIPine 5 MG TAB PO (18:20)
[2024-10-02] MEDS: Docusate Sodium 100 MG CAP PO (20:32)
[2024-10-02] MEDS: Atorvastatin 40 MG TAB PO (20:32)
[2024-10-02] MEDS: Normal Saline Flush 10 ML SYR IVP (20:33)
[2024-10-02] MEDS: Omeprazole 20 MG CAPCR 40 MG PO (20:33)
[2024-10-02 22:40] LABS: Calculated LDL 86 mg/dL (<100); Cholesterol 162 mg/dL (<200); HDL Cholesterol 64 mg/dL (40-60); Triglyceride 62 mg/dL (<150)
[2024-10-02] MEDS: Acetaminophen 500 MG TAB PO (23:57)
[2024-10-03] VITALS (9 sets, daily range): BP systolic 102–189; BP diastolic 60–124; PULSE 76–97; RESP 16–20; TEMP 36.1–37.1; O2SAT 95–98
--- NOTE | 2024-10-03 | DI.CT_ITS ---
Exam(s) CT CERVICAL SPINE WO EXAM: CT CERVICAL SPINE WO CLINICAL HISTORY: unwitnessed fall. TECHNIQUE: Imaging Protocol: Axial computed tomography images with coronal and sagittal reformatted images were created and reviewed CONTRAST MATERIAL: Noncontrast COMPARISON: CT CT BRAIN NECK CTA from 10/02/2024 FINDINGS: Exam is mildly limited by patient positioning. Bones: No fracture or dislocations are seen. Advanced degenerative disc changes noted from C3-4 thro ugh C6-7. Facet degenerative changes present throughout. There is straightening of the normal cervi ashley lordosis secondary to advanced degenerative changes. Soft Tissues: The soft tissues of the neck are unremarkable. No large disk herniations are identified . The visualized portions of the lung apices are clear. No pneumothorax is seen. IMPRESSION: Advanced degenerative changes. No acute abnormality. RADIATION DOSE DELIVERED: Total DLP DATA REPOSITORY: All CT scans at this facility are submitted to the National Radiology Data Registry (NRDR) Dose Index Registry (DIR) with the [employer] (ACR). RADIATION OPTIMIZATION: All CT scans at this facility use at least one of these dose optimization te chniques: automated exposure control; mA and/or kV adjustment per patient size (includes targeted exa ms where dose is matched to clinical indication); or iterative reconstruction.
--- NOTE | 2024-10-03 | DI.RAD_ITS ---
Exam(s) XR PELVIS AP EXAM: XR PELVIS AP CLINICAL HISTORY: unwitnessed fall. TECHNIQUE: 2D digital imaging was performed. Single AP view. COMPARISON: CT CT PELVIC WO from 05/02/2023 FINDINGS: BONES: No acute fracture is present. No bony destructive lesion is seen. The sacrum is partially ob scured by overlying bowel gas and stool appear JOINTS: No dislocation present. Severe degenerative changes are again noted in the left hip. There are moderate degenerative changes in the right hip. Mild degenerative changes of the SI joints and p ubic symphysis. SOFT TISSUE: Normal. IMPRESSION: No acute abnormality. DATA REPOSITORY: RADIATION DOSE DELIVERED:
--- NOTE | 2024-10-03 | DI.CT_ITS ---
Exam(s) CT HEAD WO EXAM: CT HEAD WO CLINICAL HISTORY: fall, unwitnessed. TECHNIQUE: Imaging Protocol: Axial computed tomography images with coronal and sagittal reformatted images were created and reviewed COMPARISON: CT CT BRAIN NECK CTA from 10/02/2024 FINDINGS: Ventricles and Extra axial spaces: Normal in size and morphology for the patient's age. Hemorrhage: None. Cerebral parenchyma: No evidence of acute infarct or mass. Old right frontal infarcts. Atrophy and m icrovascular changes. Midline shift: None. Brainstem/Cerebellum: Normal. Calvarium: Hyperostosis frontalis interna. Visualized Paranasal sinuses:Clear. Mastoids: Clear. Soft Tissues: Unremarkable. ORBITS: Unremarkable. PITUITARY: Not enlarged. IMPRESSION: No acute intracranial process. RADIATION DOSE DELIVERED: Total DLP DATA REPOSITORY: All CT scans at this facility are submitted to the National Radiology Data Registry (NRDR) Dose Index Registry (DIR) with the [employer] (ACR). RADIATION OPTIMIZATION: All CT scans at this facility use at least one of these dose optimization te chniques: automated exposure control; mA and/or kV adjustment per patient size (includes targeted exa ms where dose is matched to clinical indication); or iterative reconstruction.
[2024-10-03 07:28] LABS: Abs Immature Grans 0.03 10^3/uL (0.0-0.06); Absolute Basophil Count 0.09 10^3/uL (0.0-0.2); Absolute Eosinophil Count 0.17 10^3/uL (0.0-0.7); Absolute Lymphocyte Count 0.87 10^3/uL (1.2-3.4); Absolute Monocyte Count 0.66 10^3/uL (0.1-0.8); Absolute Neutrophil Count 4.56 10^3/uL (1.2-6.7); Basophils % 1.4 %; Eosinophils % 2.7 %; HCT 39.5 % (36.0-46.0); HGB 13.1 g/dL (11.2-15.7); Immature Grans % 0.5 %; Lymphocytes % 13.6 %; MCH 29.7 pg (27.0-33.0); MCHC 33.2 % (32.0-36.0); MCV 90 fL (80-95); MPV 9.5 fL (8.0-11.0); Monocytes % 10.3 %; Neutrophils % 71.5 %; Platelet Count 304 10^3/uL (130-400); RBC 4.41 10^6/uL (3.93-5.22); RDW 13.4 % (11.7-14.6); RDW-SD 43.8 fL; WBC 6.38 10^3/uL (4.4-10.8)
[2024-10-03] MEDS: Docusate Sodium 100 MG CAP PO ×3 (07:30→13:21)
[2024-10-03 07:47] LABS: ALT 11 U/L (14-59); AST 19 U/L (15-37); Albumin 3.6 g/dL (3.4-5.0); Alkaline Phosphatase 72 U/L (46-116); Anion Gap 9.6 mmol/L (3-11); BUN 19 mg/dL (7-18); Bilirubin, Total 0.53 mg/dL (0.2-1.0); CO2 25.4 mmol/L (21.0-32.0); CREATININE 1.1 mg/dL (0.55-1.02); Calcium 8.5 mg/dL (8.5-10.1); Chloride 108 mmol/L (98-107); Estimated GFR 49.24 (mL/min/1.73m2); Glucose 85 mg/dL (74-106); Potassium 3.8 mmol/L (3.5-5.1); Sodium 143 mmol/L (136-145); Total Protein 6.7 g/dL (6.4-8.2)
--- NOTE | 2024-10-03 08:00 | DI.MRI_ITS ---
Exam(s) MR BRAIN WO EXAM: MR BRAIN WO CLINICAL HISTORY: AMS, speech disturbance, ? CVA,stroke,new rt frontal TECHNIQUE: Multiplanar multisequence MRI of the brain was performed. COMPARISON: CT CT BRAIN NECK CTA from 10/02/2024 FINDINGS: Exam is limited by motion. Small is VENTRICLES AND EXTRA AXIAL SPACES: Normal in size and morphology for the patient's age. MIDLINE SHIFT: None. CEREBRAL PARENCHYMA: Old right anteroinferior and superolateral frontal lobe infarcts. No focus of r estricted diffusion to suggest acute infarct. No space-occupying lesion identified. Mild atrophy cons istent with the patient's age. Mild scattered foci of high signal in the white matter consistent wit h sequela of chronic microvascular disease. BRAINSTEM/CEREBELLUM: Normal. VISUALIZED PARANASAL SINUSES: Clear. MASTOIDS:Clear. Vasculature: Normal flow void. PITUITARY GLAND: Unremarkable. ORBITS: Unremarkable. IMPRESSION: No evidence of acute infarct or hemorrhage.. Old infarcts in the right frontal lobe. DATA REPOSITORY:
[2024-10-03] MEDS: Aspirin E.C. 81 MG TABEC PO (08:01)
[2024-10-03] MEDS: buPROPion-XL 150 MG TABCR 300 MG PO (08:01)
[2024-10-03] MEDS: Fenofibrate, Micronized 48 MG TAB PO (08:01)
[2024-10-03] MEDS: Calcium 600mg/Vit D 200U TAB 1 TAB PO (08:01)
[2024-10-03] MEDS: Omeprazole 20 MG CAPCR 40 MG PO (08:01)
[2024-10-03] MEDS: Normal Saline Flush 10 ML SYR IVP ×3 (08:02→19:59)
--- NOTE | 2024-10-03 08:35 | IN_ITS ---
PT Notes Visit Reasons: AMS, Speech disturbance, r/o CVA Physical Therapy Inpatient Initial Evaluation Date: 10/03/2024 Referring Doctor: Jose Alas MD PT Orders: PT CONSULT: Safety Consult for D/C Precautions: Fall. Standard. Activity as tolerated. DNR/DNI. Patient Profile/Admitting Diagnosis: Patient was recently discharged from this hospital on 10/01/2024 with recommendation to go to outpatient PT for vestibular rehab for R horizontal canal canalithiasis. Linda is an 84-year-old female with history of CVA with right frontal lobe infarct (back in September 2015), repeated falls, traumatic rupture of R quads tendon, and painful right total knee replacement, status post patellar component revision on 09/06/2022. She presented to the ED on 09/30/2024 due to dizziness, dry heaving, nasuea, and dry mouth. Patient was also seen back in December of this year for dizziness related to atrial fibrillation. Per OR notes, patient has been unable to care for self at times she does not have a caregiver, has been having difficulty ambulating due to her dizziness, and has complained of mild headache. Patient returned on 10/02/2024 due to new admitting diagnoses of altered mental status, slurred speech, acute onchroninc renal failure, AF, and essential hypertension. Work up to rule out CVA is in the works for this admission. PMHX: All Active Problems (Updated 10/02/24 @ 17:45 by Sofia Whelan APRN) On deep vein thrombosis (DVT) prophylaxis (Acute) CVA (cerebral vascular accident) (Chronic) Alteration in speech (Acute) Altered mental status (Acute) Acute on chronic renal insufficiency (Acute) Pes anserinus bursitis of left knee (Acute) DEPO MEDROL 06/04/23 Depression (Chronic) Degenerative joint disease of right hip (Acute) POCUS INJECTION 03/13/24Painful total knee replacement, right (Acute) s/p revision of patellar component Dr. Dixon DOS: 09/06/22Regurgitation and rechewing (Acute ~10/2021) 12/13/21 [facility] GI, gastric emptying scan ordered and consult with New Accounts Banking Representative Lung nodule < 6cm on CT (Acute) LEWIS (dyspnea on exertion) (Acute) Paraesophageal hernia (Acute) Urinary incontinence (Acute) Rib pain on left side (Acute) Left shoulder pain (Acute) Iliotibial band syndrome of right side (Acute) Anxiety and depression (Chronic 09/05/17) Anticoagulant long-term use (Acute) Hiatal hernia (Chronic) Adjustment disorder, unspecified (Acute 11/16/16) Gastroesophageal reflux disease (Chronic 04/28/16) Due to Hiatial Hernia Osteoporosis (Chronic 02/13/17) left hip T SCORE -3.3 Prolia inj q6m, first 01/2017, 02/25/21 Total T-Score: - 2.5 Medical History (Updated 10/02/24 @ 17:45 by Sofia Whelan APRN) Falls frequently Atrial fibrillation (01/22/18) Essential hypertension (04/28/16) History of CVA (cerebrovascular accident) (10/24/15) Dry Stroke, 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) Hyperlipidemia (04/28/16) Burgos angioma Seborrheic keratoses Actinic keratosis Keratoacanthoma (~05/2022) Derm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 Dixon Status post total right knee replacement (11/20/11) Status post total left knee replacement H/O endoscopy (10/24/21) S/P repair of paraesophageal hernia (08/15/21) [facility] Thoracic Open Carpal Tunnel release right Cholecystectomy (01/10/18) Extraction of cataract Social History/Home Situation: Lives alone on the second floor of a handicap-accessible apartment floor building in [place], [place]. Independent with 4WW indoors, requires supervision of another outdoors. Has family close by who are supportive. Has 4 hours of caregiving coverage Mondays, Tuesdays, , and Fridays for house chores, laundry, and grocery shopping. Able to perform dressing ad bathing on her own. Equipment Owned/DME: 4WW, FWW Subjective: Has fallen at least 5 times in the past year. Patient said she fell again at home after discharge. No complaints of dizziness throughout. Talked about needing to talk with brother Bernardo about something who patient thought was waiting for her in the room. Objective: General Observation: Resting on chair. Restless, rocking back and forth when PT came in. Nurse Ginette helping out patient Mental Status: Alert and oriented as to person only. Said that she in [facility]. Able to follow instructions/requests. Still confused. Hallucinating, thought her brother Bernardo was in the room. Pain: None reported ROM: Right Upper Extremity: Shoulder Flexion allows up to 80 degrees with pain at end of range. Shoulder abduction allows up to 60 degrees with pain at end of range. Elbow flexion WFL. Wrist flexion WFL. Functional opening and closing of hand WFL. Left Upper Extremity: Shoulder Flexion allows up to 90 degrees with pain at end of range. Shoulder abduction allows up to 70 degrees with pain at end of range. Elbow flexion WFL. Wrist flexion WFL. Functional opening and closing of hand WFL. Right Lower Extremity: Hip flexion allows up to about 100 degrees. Hip abduction WFL. Knee flexion 20 degrees to 90 degrees. Knee extension -20 degrees. Ankle dorsiflexion to neutral only. Ankle plantarflexion WFL. Left Lower Extremity: Hip flexion allows up to about 100 degrees. Hip abduction WFL. Knee flexion 10 degrees to 90 degrees. Knee extension -20 degrees. Ankle dorsiflexion to neutral only. Ankle plantarflexion WFL. Strength: Right Upper Extremity: Shoulder flexors 3-/5. Shoulder abductors 3-/5. Elbow fl exors 4-/5. Elbow extensors 4-/5. Gripweak but functional. Left Upper Extremity: Shoulder flexors 3-/5. Shoulder abductors 3-/5. Elbow flexors 4-/5. Elbow extensors 4-/5. Gripweak but functional. Right Lower Extremity: Hip flexors 3-/5. Hip abductors 3-/5. Knee flexors3-5/5. Knee extensors 3-/5. Ankle dorsiflexors 3-/5. Ankle plantarflexors 4-/5. Left Lower Extremity:Hip flexors 3-/5. Hip abductors 3-/5. Knee flexors3-5/5. Knee extensors 3-/5. Ankle dorsiflexors 3-/5. Ankle plantarflexors 4-/5. Sensation: Intact as to pain and light pressure in B LE Bed Mobility/Transfers: Minimal cueing provided for use of B hands as needed for support, movement sequence, AD management, and posture to reduce fall risk and minimize pain report Sit to stand contact guard assist with FWW with FWW Stand to sit contact guard assist with FWW with FWW Bed to chair contact guard assist with FWW with FWW Gait: Facilitated safe and correct performance of short level surface ambulation of 100 feet with contact guard assist and wheelchair follow of Nurse Ginette. No LOB. Minimal shortness of breath. Step height and length asymmetrical. Mild shortness of breath noted. Balance: Static Sitting: Good Dynamic Sitting: Good Static Standing: Fair Dynamic Standing: Poor Special Tests: Mobility Limitations Standardized Measure [facility] AM-PAC 6 clicks Basic Mobility Inpatient Short Form: Raw Score: 18 CMS Score: 47% deficit Informed Consent/Education: Patient instructed in purpose of PT consult and plan of care. Agreeable to proceed with established PT POC to achieve personal goals. Assessment: Patient now more confused and unable to focus on task without frequent redirection. She needs the assistance and the cueing of a caregiver to perform mobility ADL safely. Patient presents with clinical signs and symptoms consistent with current/admitting diagnoses that have resulted to mobility limitations, gait instability, generalized weakness, and impairment of motor control as demonstrated by the following impairment level findings: 1. Decreased strength to B UE/LE with L UE/LE R knee more affected 2. Impaired standing balance 3. Limitation of joint range of motion in R knee (chronic) Impairments are contributing to the following functional limitations: 1. Inability to safely ambulate without assistive device 2. Increase completion time for mobility ADL performance 3. [facility] fall risk 4. High re-hospitalization rate Patient is assessed as a 92829 moderate complexity based on the following: History: 82-year-old female with impairment level findings, functional limitations, and past medical history as indicated above Examination: Demonstrable impairment in strength, balance, and mobility level with underlying impairments and functional limitations as documented above Presentation: Evolving Decision Makin moderate complexity Goals: Goals X1 week 1. Supine-Sit independent 2. Sit-Supine independent 3. Sit-Stand independent 4. Stand-Sit independent 5. Bed-Chair independent 6. Chair-Bed independent 7. Independent gait on level surface with use of 4WW for at least 150 feet without report of pain nor dyspnea 8. Independent stair negotiation while holding onto bilateral rails for at least 10 steps without report of pain nor dyspnea 9. Independent with home exercise program 10. Good static and dynamic standing balance/tolerance Plan of Care/Treatment Plan: Patient will highly benefit from skilled physical therapy services including functional mobility training, bed mobility/transfer training, gait and balance training, therapeutic exercises, therapeutic activity, caregiver/staff/family education and training 1x/day, 7 days/week x 1 week. Plan of care has been reviewed with the BIN WORKER providing the service under Physical Therapy direction. Initiate Physical Therapy intervention for strengthening, bed mobility, transfers, gait, stairs, balance training, use of assistive device. DISCHARGE RECOMMENDATIONS: [] Home with no services [] [] Home with services [specify] [] Home with outpatient PT [] [] SNF for continued rehabilitation [] [] Sewage Plant Operator Care [] [] SNF versus LTC based on ability to participate and progress [] [X] Short-term SNF vs PT due to declining safety awareness and decreased independence with mobility performance. TREATMENT CODE/TIME: 51961 x 20 minutes for 1 unit, 80970 x 11 minutes (08:35-08:45 and 10:55- 11:16). Thank you for the opportunity to participate in the care of this patient. Kaylynn Hunter PT, DPT, CLT [facility] [place], [place]
--- NOTE | 2024-10-03 11:35 | INITIAL_ITS ---
Date of service: 10/03/24 Time of Service: 11:35 Care Management Initial Assmt Initial Assessment Reason for Hospitalization: AMS, acute on chronic renal insufficiency Functional Status/Living Situation Patient Presentation: Linda was lying in bed and had just finished with PT and the practitioner was still in the room. Discharge recommendations were discussed with Linda and she is agreeable to SNF for STR. Referrals are sent to O attributed facilities ([facility], [facility] and [facility] are the closest) with Linda's permission. CM provided updates to patients daughter Narcisa, whom she is very close with. Per Narcisa, her Mom was very confused after her last discharge and she would like to be updated when her discharge plan is better know. Resumption of community supports will need to be in place if she discharges back to the [facility]. Town of Residence: [place] ([facility]) Resides with: Alone Significant Other/Family: Out of area (Daughter Narcisa in [place], talk on the phone daily, Granddaughter Jessie lives in [place]. ) Caregiver/Guardian: 4 hrs X 4 days per week ( Mon,Tues ,Thurs,Fri) for house chores, laundry, and grocery shopping. Choices for Care LTC, [facility] on Aging child support case officer. Employment Status: Retired Instrumental Activities of Daily Living (ADLs): Independent Medications Medication Management: No Issues/Barriers identified Physical Functioning/Mobility Assistive Device: Walker Advance Directives Advance Directives: Do you have an Advance Directive: Y 09/30/24 07:03 AD On File at [facility]: Y 09/30/24 07:03 Date Asked 10/02/24 10/02/24 11:09 AD Date Reviewed 09/30/24 09/30/24 07:03 COLST On File at [facility] Yes 12/21/22 06:08 COLST Date Scanned 12/14/22 12/21/22 06:08 Code Status Resuscitation Status DNR/DNI Insurance Coverage/Financial Issues Insurance: Medicaid Medicare Part A & B Care Team Visit Care Team Role Provider Type Patricia Garza NP Primary Care Provider NURSE PRACTITIONER MANDY Vargas Other Providers PHYSICIANS ASSISTANT Elda Delaney Other Providers OTHER Cathi Pineda NP Emergency Provider NURSE PRACTITIONER Bebo Jerry MD Admit Provider [facility] STAFF PHYSICIAN Attending Provider Discharge Potential Discharge Needs: PT Evaluation and PCP F/U Appt Anticipated Barriers to Discharge: Medical Status Patient/Family Education Needs: Review discharge instructions, discuss Ask Me Three Transportation: Private vehicle Plan: PT recommends SNF for STR vs Home with [facility] PTElsy Mckeon is agreeable to SNF for STR. Referrals are sent to ACO attributed facilities utilizing an ACO waiver. Daughter Narcisa should be notified as discharge plans develop. CM will continue to follow and support discharge planning considerations. PFSH All Active Problems (Updated 10/02/24 @ 17:45 by Sofia Whelan APRN) On deep vein thrombosis (DVT) prophylaxis (Acute) CVA (cerebral vascular accident) (Chronic) Alteration in speech (Acute) Altered mental status (Acute) Acute on chronic renal insufficiency (Acute) Pes anserinus bursitis of left knee (Acute) DEPO MEDROL 06/04/23 Depression (Chronic) Degenerative joint disease of right hip (Acute) POCUS INJECTION 03/13/24 Painful total knee replacement, right (Acute) s/p revision of patellar component Dr. Dixon DOS: 09/06/22 Regurgitation and rechewing (Acute ~10/2021) 12/13/[address] [facility] GI, gastric emptying scan ordered and consult with Gravel Weigher Lung nodule < 6cm on CT (Acute) LEWIS (dyspnea on exertion) (Acute) Paraesophageal hernia (Acute) Urinary incontinence (Acute) Rib pain on left side (Acute) Left shoulder pain (Acute) Iliotibial band syndrome of right side (Acute) Anxiety and depression (Chronic 09/05/17) Anticoagulant long-term use (Acute) Hiatal hernia (Chronic) Adjustment disorder, unspecified (Acute 11/16/16) Gastroesophageal reflux disease (Chronic 04/28/16) Due to Hiatial Hernia Osteoporosis (Chronic 02/13/17) left hip T SCORE -3.3 Prolia inj q6m, first 01/2017, 02/25/21 Total T-Score: - 2.5 Medical History (Updated 10/02/24 @ 17:45 by Sofia Whelan APRN) Falls frequently Atrial fibrillation (01/22/18) Essential hypertension (04/28/16) History of CVA (cerebrovascular accident) (10/24/15) Dry Stroke, 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) Hyperlipidemia (04/28/16) Burgos angioma Seborrheic keratoses Actinic keratosis Keratoacanthoma (~05/2022) Derm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 Dixon Status post total right knee replacement (11/20/11) Status post total left knee replacement H/O endoscopy (10/24/21) S/P repair of paraesophageal hernia (08/15/21) [facility] Thoracic Open Carpal Tunnel release right Cholecystectomy (01/10/18) Extraction of cataract Family History Mother Stroke Father Neoplasm Grandmother , CVA No problems noted. Brother Diabetes Brother Diabetes Brother Diabetes Brother Diabetes Brother Diabetes Brother Diabetes Social History Smoking/Tobacco Use Status: Former Tobacco Use Quit Date: 10/29/85 Tobacco: How many years used: 25 Smoking risk assessment performed?: Yes Alcohol Intake: never Drug use: Never Substance use type: does not use Household members: none Housing: apartment Number of Children: 4 Current gender identity: female What type of physical activity do you participate in: none Do you feel safe at home: Yes Do you feel safe in your relationship?: Yes Readmission Within the Past 30 Days Yes or No: Yes Date of First Admission Date of 1st Admission: 09/30/24 Date of this Admission Date of Admission: 10/02/24 This admission was: Through ED Office Visit Since 1st Admission Have you seen your PCP in the office since discharge?: No Had an appointment Been Scheduled?: Yes Date of Scheduled Appointment: 10/07/24 Speicalist Appointments Have you seen any other specialist since your 1st Admission?: No Assessment for Readmission Summary of readmission circumstances, based upon interviews: Pt returned to ER soon after she discharged due to increased confusion. SDOH(Care Management) Screening Will the Patient Participate in the Screening?: Yes Do you worry about having a steady place to live?: no Problems where you live: no known problems In the past 12 months, have you had to go without electric, gas, oil or water in your home?: no Have you or anyone in your house had to go without enough food to eat?: no Has lack of transportation kept you from medical appointments or from doing things needed for daily living?: no Has anyone in your support network made you feel unsafe for any reason?: no
--- NOTE | 2024-10-03 12:13 | PGE_ITS ---
Date of Service Date of service: 10/03/24 Time of Service: 12:13 Assessment and Plan Assessment and plan (1) Acute delirium: Status: Acute Assessment and plan: Patient does have a history of cognitive decline but this is far from her baseline Will continue fall precautions and close monitoring Add Seroquel 25 mg x 1 this afternoon for acute delirium and will initiate 25 mg at bedtime 12.5 mg in the morning if needed, adjust as needed No evidence of acute infection continue to monitor (2) Altered mental status: Status: Acute Assessment and plan: Head CT was negative for acute findings; showing old right-sided infarct [facility] neurology consultation completed MRI with no acute findings Received aspirin load and daily aspirin No Plavix recommendation Recommendation to hold Eliquis for 1 week echo with bubble with no acute findings, no dysrhythmia on telemetry High-intensity statin A1c 6.0 and lipid panel cholesterol 162 triglycerides 62 LDL 86 HDL 64 Resume amlodipine and metoprolol Will not reorder scopolamine patch and try as needed meclizine for vertigo symptoms PT following (3) CVA (cerebral vascular accident): Status: Chronic Assessment and plan: As above (4) Alteration in speech: Status: Acute Assessment and plan: As above (5) Acute on chronic renal insufficiency: Status: Acute Assessment and plan: CR 1.3 around baseline; no TYRESE BMP in the morning (6) Atrial fibrillation: Assessment and plan: resume metoprolol succinate 12.5 orally daily Eliquis also held for one week as per recommendation by [facility] neuro Telemetry (7) Essential hypertension: Assessment and plan: resume Amlodipine (8) On deep vein thrombosis (DVT) prophylaxis: Status: Acute Assessment and plan: GLENN's Discussed with Dr. Jerry Subjective Subjective Patient reports: no new complaints, tolerating liquids well, tolerating a regular diet and afebrile; denies shortness of breath Interval history since last seen: No new complaints but patient with increased confusion in the afternoon. Did not recognize granddaughter. Initially wanting to leave but was reoriented and redirected. No behavioral/aggressive behaviors. no fever, hemodynamically stable with no evidence of acute infection Exam Narrative Exam Narrative: Frail elderly female older than stated age no acute distress head is atraumatic eyes nonicteric noninjected neurologic she is awake alert oriented to person only. Cardiovascular regular rate and rhythm her respirations are even and unlabored her abdomen is soft and nontender her extremities are without edema moves all extremities no rashes or lesions psychiatric confused but not aggressive or combative easily redirected Objective Last Vital Signs Temp 36.1 C L 10/03/24 09:52 Pulse 90 10/03/24 09:52 Resp 16 10/03/24 09:52 BP 140/86 10/03/24 09:52 Pulse Ox 95 10/03/24 09:52 Laboratory Results - last 24 hr 10/02/24 10/02/24 10/02/24 11:43 12:00 13:46 WBC RBC Hgb Hct MCV MCH MCHC RDW Plt Count MPV Immature Gran % Neutrophils % Band Neutrophils % Lymphocytes % Atypical Lymphs % Monocytes % Eosinophils % Basophils % Metamyelocytes % Myelocytes % Promyelocytes % Other Cells % Nucleated RBC % Absolute Neutrophils Absolute Lymphocytes Absolute Monocytes Absolute Eosinophils Absolute Basophils RBC Morphology Polychromasia Hypochromasia Poikilocytosis Basophilic Stippling Anisocytosis Microcytosis Macrocytosis Spherocytes Tear Drop Cells Ovalocytes Stomatocytes [place] Bodies Ximena Cells/Echinocytes Acanthocytes (Spur) Schistocytes Sodium 144 Potassium 3.9 Chloride 107 Carbon Dioxide 26.6 Anion Gap 10.4 BUN 21 H Creatinine 1.3 H Est GFR (CKD-EPI 2020) 40.30 Glucose 95 Hemoglobin A1c 6.0 H Calcium 8.2 L Magnesium 1.9 Total Bilirubin 0.23 AST 17 ALT 16 Alkaline Phosphatase 70 Total Protein 6.0 L Albumin 3.6 Triglycerides 62 Total Cholesterol 162 LDL Cholesterol, Calc 86 HDL Cholesterol 64 Lipase 10 TSH 1.58 Urine Color Yellow Urine Clarity Clear Urine pH 6.5 Ur Specific [place] 1.010 Urine Protein 30 H Urine Ketones Negative Urine Blood Negative Urine Nitrite Negative Urine Bilirubin Negative Urine Urobilinogen 0.2 Ur Leukocyte Esterase Negative Urine RBC 0-2 Urine WBC 0-2 Ur Epithelial Cells Rare Urine Crystals Negative Urine Bacteria Rare Urine Casts 0-2 Hyaline Urine Mucus Trace Ur Culture Indicated? No Urine Glucose Negative 10/03/24 10/03/24 05:45 07:19 WBC Cancelled 6.38 RBC Cancelled 4.41 Hgb Cancelled 13.1 Hct Cancelled 39.5 MCV Cancelled 90 MCH Cancelled 29.7 MCHC Cancelled 33.2 RDW Cancelled 13.4 Plt Count Cancelled 304 MPV Cancelled 9.5 Immature Gran % Cancelled 0.5 Neutrophils % Cancelled 71.5 Band Neutrophils % Cancelled Lymphocytes % Cancelled 13.6 Atypical Lymphs % Cancelled Monocytes % Cancelled 10.3 Eosinophils % Cancelled 2.7 Basophils % Cancelled 1.4 Metamyelocytes % Cancelled Myelocytes % Cancelled Promyelocytes % Cancelled Other Cells % Cancelled Nucleated RBC % Cancelled 0.0 Absolute Neutrophils Cancelled 4.56 Absolute Lymphocytes Cancelled 0.87 L Absolute Monocytes Cancelled 0.66 Absolute Eosinophils Cancelled 0.17 Absolute Basophils Cancelled 0.09 RBC Morphology Cancelled Polychromasia Cancelled Hypochromasia Cancelled Poikilocytosis Cancelled Basophilic Stippling Cancelled Anisocytosis Cancelled Microcytosis Cancelled Macrocytosis Cancelled Spherocytes Cancelled Tear Drop Cells Cancelled Ovalocytes Cancelled Stomatocytes Cancelled Flores-[place] Bodies Cancelled Dupo Cells/Echinocytes Cancelled Acanthocytes (Spur) Cancelled Schistocytes Cancelled Sodium 143 Potassium 3.8 Chloride 108 H Carbon Dioxide 25.4 Anion Gap 9.6 BUN 19 H Creatinine 1.1 H Est GFR (CKD-EPI 2020) 49.24 Glucose 85 Hemoglobin A1c Calcium 8.5 Magnesium Total Bilirubin 0.53 AST 19 ALT 11 L Alkaline Phosphatase 72 Total Protein 6.7 Albumin 3.6 Triglycerides Total Cholesterol LDL Cholesterol, Calc HDL Cholesterol Lipase TSH Urine Color Urine Clarity Urine pH Ur Specific [place] Urine Protein Urine Ketones Urine Blood Urine Nitrite Urine Bilirubin Urine Urobilinogen Ur Leukocyte Esterase Urine RBC Urine WBC Ur Epithelial Cells Urine Crystals Urine Bacteria Urine Casts Urine Mucus Ur Culture Indicated? Urine Glucose Time Spent with Patient Time Spent with Patient: 35-49 minutes Time was spent: preparing to see the patient(eg.review tests), obtaining and/or reviewing separately otained hiistory, ordering medications,tests, procedures, indepentently interpreting results and counseling the patient
[2024-10-03] MEDS: Diclofenac 1% Gel 100 GM TUBE TP ×2 (13:21→15:52)
--- NOTE | 2024-10-03 14:42 | PT.INTREAT ---
PT Notes Visit Reasons: AMS, Speech disturbance, r/o CVA Date: 10/03/24 PRECAUTIONS: Fall. Standard. Activity as tolerated. DNR/DNI. SUBJECTIVE: Pt in recliner when approached for therapy this afternoon. pt agreed to paricipate with therapy session but session was interrupted by pt needing to go down for an echocardiogram, pt able to participate after pt came back up from her test. OBJECTIVE: ? PAIN: denies VITALS: closely monitored with telemetry Therapeutic Activities 56930: Direct one-on-one instruction in dynamic activities to improve functional performance. ?? BED MOBILITY/TRANSFERS? Rolling L/R: Supervision Supine-sit: ?Supervision ? Sit-supine: ?Supervision? Sit-stand: ? SBA? Stand-sit: ??SBA ? Bed-Chair:? SBA? Chair-bed: SBA Provided skilled cues and instruction on performance and technique throughout. Gait Training 29317: Direct one-on-one instruction and skilled instruction in: Employing an assistive device Modified weight-bearing status Movement sequencing Turning and movement with proper form Provided verbal cues for equipment management and technique Provided instruction in gait pattern Patient education regarding pacing and breathing techniques to maximize activity tolerance? GAIT? Assistive Device: ?? FWW? Weight bearing: FWB Assist: ? SBA ? Distance:?? 250' x2 standing rest break? Deviation: ? stoop forward posture, WBOS, low step height, short step length.? ASSESSMENT:?Pt tolerated activity well, pt able to stand static for 5mins, pt requested to transfer to bed bed after resting in recliner for 3mins after gait training. PLAN: Continue with balance training, global strengthening and general conditioning for improved safety, mobility and activity tolerance until pt is ready for DC. TREATMENT CODE/TIME: [id number] 25mins (2:15-2:40pm)
[2024-10-03] MEDS: QUEtiapine 25 MG TAB PO ×2 (15:45→19:59)
--- NOTE | 2024-10-03 16:50 | DI.US_ITS ---
APPROVED REPORT EXAM: Comprehensive 2D, Doppler, and color-flow Echocardiogram Patient Location: In-Patient Room/Bed: [address] N[address] Inspector: Nereida Mera RDCS (AE) Indications: Stoke, A Fib Other Information Study Quality: Adequate Conclusion Normal left ventricular wall thickness and chamber size. Ejection fraction is 60%. Wall motion is n ormal Normal right ventricular size and function Both atria are severely dilated There are no structural valvular abnormalities Moderate mitral regurgitation Mild to moderate tricuspid regurgitation. Estimated right ventricular systolic pressure is 50 mmHg Wall motion Left Ventricle The left ventricle is normal size. The left ventricular systolic function is normal. The left ventric ular ejection fraction is within the normal range. There is normal left ventricular wall thickness. T here is normal LV segmental wall motion. There is no ventricular septal defect visualized. LVEF is 60 %. Right Ventricle The right ventricle is normal size. The right ventricular systolic function is normal. Atria Left atrium is severely dilated. Right atrium is severely dilated. The interatrial septum is intact w ith no evidence for an atrial septal defect. Aortic Valve The aortic valve is normal in structure. Aortic valve is trileaflet. There is no aortic valvular sten osis. No aortic regurgitation is present. Mitral Valve The mitral valve is normal in structure. No evidence of mitral valve stenosis. Moderate mitral regu rgitation. Tricuspid Valve The tricuspid valve is normal in structure. There is no tricuspid valve stenosis. Mild to moderate tricuspid regurgitation. The RVSP is 49.9 mmHg. Pulmonic Valve The pulmonary valve is normal in structure. There is no pulmonic valvular stenosis. Mild pulmonic reg urgitation. Great Vessels The aortic root is normal in size. The ascending aorta is normal in size. Aortic arch is not well vis ualized. IVC is normal in size and collapses >50% with inspiration. Pericardium There is no pericardial effusion. 2D Dimensions IVSD d PLAX 0.98 cm F: 0.6-1.0 Ao Root d 2.76 cm F: 2.7 - 3.3 LVPW d PLAX 0.98 cm F: 0.6 - 1.0 Ao Asc Diam d 2.91 cm F: 2.3 - 3.1 LVID d PLAX 4.05 cm F: 3.8 - 5.2 LVDs 2.79 cm F: 2.2 - 3.5 LV EF Teichholz 59.4 % FS 31.15 % LV EDV (Teich) 71.9 mL LV ESV (Teich) 29.2 mL M-Mode TAPSE 2.43 cm (M/F) >1.7 Auto EF LV EDV A4C 68.2 mL LV EDV A2C 64.6 mL LV EDV BP 70.2 mL LV ESV A4C 28.2 mL LV ESV A2C 25.1 mL LV ESV BP 26.5 mL LVEF(%) A4C 58.6 % LVEF(%) A2C 61.2 % LVEF(%) BP 62.2 % LV SV A4C 40.0 ml LV SV A2C 39.6 ml LV SV BP 43.7 ml LV CO A4C 3.4 L/min LV CO A2C 2.7 L/min LV CO BP 3.1 L/min HR A4C 84.70 BPM HR A2C 68.97 BPM LV EDV Index (BP) LA Volume LA Length A4C 6.3 cm LA Length A2C 5.7 cm LA Area A4C s 29.02 cm2 LA Area A2C s 20.78 cm2 LA Vol A4C A-L 112.78 mL LA Vol A2C A-L 63.94 mL LA Vol Biplane A-L 89.3 mL LA Vol/BSA A4C A-L LA Vol/BSA A2C A-L LA Vol/BSA BP A-L 56.5 mL/m2 LA Vol A4C MOD 103.9 mL LA Vol A2C MOD 61.0 mL LA Vol BP MOD 83.5 mL RA Volume RA Area A4C 17.8 cm2 RA ESV A4C (A-L) 45.8mL RA Vol/BSA A4C A-L RA Length A4C 5.9 cm RA ESV A4C (MOD) 43.7mL LV Diastology MV E' medial 0.092 (>0.07 m/s) MV E Vmax 1.22 (0.4-1.3 m/s) MV E/E' MED 13.28 (<14) MV A Vmax 0.40 (0.4-1.3 m/s) E/A Ratio 3.0 Aortic Valve AoV Vmax 1.50 m/s LVOT Vmax 0.87 m/s AoV Peak Grad 9.0 mmHg LVOT Peak Grad 3.0 mmHg AoV Area (Vmax) 1.45 cm2 LVOT VTI 0.157 m AoV VTI 0.275 m LVOT Mean Grad 1.6 mmHg AoV Mean Eduin. 0.98 m/s LVOT SV 39.42 mL AoV Mean Grad 4.5 mmHg LVOT Diam s 1.75 cm AoV Area (VTI) 1.43 cm2 AV Regurg Peak Gr. 8.97 mmHg Velocity Ratio 0.58 Mitral Valve MV DT 117 (160-240 msec) MV Vmax TIPS 1.20 m/s MV Mean Grad 2.5 (<2mmHg) MV VTI 0.236 m Pulmonary Valve PV Vmax 1.24 (0.5-1.5 m/s) RVOT Vmax 0.97 m/s PV Peak Grad 6.2 mmHg RVOT Peak Gr. 3.7 mmHg PV Mean Eduin 0.78 m/s RVOT VTI 0.198 m PV Mean Grad 2.9 mmHg RVOT Mean Gr. 1.8 mmHg Tricuspid Valve RA Pressure 3.00 mmHg TR Vmax 3.42 m/s TV S' 0.19 m/s TR Peak Grad 46.9 mmHg RVSP (TR) 49.9 mmHg
[2024-10-03] MEDS: Metoprolol CR 50 MG TABCR PO (18:32)
--- NOTE | 2024-10-03 19:28 | DI.VRAD_ITS ---
PROCEDURE INFORMATION: Exam: CT Head Without Contrast Exam date and time: 10/03/2024 6:37 PM Age: 84 years old Clinical indication: Injury or trauma; Blunt trauma (contusions or hematomas); Consciousness not specified; Injury details: Unwitnessed fall TECHNIQUE: Imaging protocol: Computed tomography of the head without contrast. COMPARISON: MR BRAIN WO 10/03/2024 9:00 AM and noncontrast head CT from 09/30/2024. FINDINGS: Brain: Prominence of cerebral sulci reflects diffuse cerebral atrophy. A few poorly marginated hypodensities seen scattered throughout the deep and periventricular white matter of both cerebral hemispheres are consistent with underlying microvascular ischemic changes with a more focal chronic ischemic focus also again seen involving cortex and deep and subcortical white matter along the anterolateral right frontal lobe. Brainstem and cerebellum are unremarkable and there is no evidence of acute transcortical infarction or recent intracranial hemorrhage. Cerebral ventricles: Stable in configuration with no midline shift or hydrocephalus. Paranasal sinuses: Grossly clear throughout. Mastoid air cells: Grossly clear bilaterally. Bones: Bony calvarium and skull base are intact and no acute fractures are detected. Soft tissues: Unremarkable. IMPRESSION: Cerebral atrophy and multifocal chronic ischemic changes with no evidence of acute transcortical infarction, recent intracranial hemorrhage or hydrocephalus. No acute intracranial process is detected. Dictated and Authenticated by: Ham Vasquez MD. Ordering:KATINA Naqvi MD
--- NOTE | 2024-10-03 19:36 | DI.VRAD_ITS ---
PROCEDURE INFORMATION: Exam: CT Cervical Spine Without Contrast Exam date and time: 10/03/2024 6:48 PM Age: 84 years old Clinical indication: Injury or trauma; Blunt trauma; Injury details: Unwitnessed fall TECHNIQUE: Imaging protocol: Computed tomography of the cervical spine without contrast. COMPARISON: CT HEAD WO 10/03/2024 6:37 PM FINDINGS: Bones: There is arthrosis involving the anterior atlantodental interval with loss of joint space and marginal osteophyte formation and the odontoid process is grossly intact. There are grade 1 anterolistheses of C2 upon C3 and C3 upon C4 with mild retrolisthesis of C4 on C5 and mild anterolisthesis of C7 upon T1 also evident. There is gross preservation of vertebral body height throughout cervical levels with no vertebral body fractures or other significant subluxations detected. Changes of facet arthropathy are most advanced on the left between C2 and C4 with no acute fractures detected involving the posterior elements of the cervical spine. Discs/Spinal canal/Neural foramina: Loss of disc space height with posterior osteocartilaginous ridging is most significant at C3-C4, C4-C5, C5-C6 and C6-C7 resulting in canal narrowing and suspected mass-effect upon the ventral cord which could be better evaluated with MRI. Uncovertebral and facet changes produce bilateral foraminal distortions/narrowings throughout mid to lower cervical levels. Lungs: No pneumothorax or consolidation detected at the lung apices. Soft tissues: Unremarkable. IMPRESSION: Chronic cervical spondylosis with central canal and foraminal narrowing as above. No acute cervical fractures are detected. Dictated and Authenticated by: Ham Vasquez MD. Ordering:KATINA Naqvi MD
--- NOTE | 2024-10-03 19:37 | DI.VRAD_ITS ---
PROCEDURE INFORMATION: Exam: XR Pelvis Exam date and time: 10/03/2024 6:57 PM Age: 84 years old Clinical indication: Injury or trauma; Blunt trauma (contusions or hematomas); Does not apply; Pelvic region; Injury details: Unwitnessed fall TECHNIQUE: Imaging protocol: Radiologic exam of the pelvis. Views: 1 or 2 view. COMPARISON: CT ABDOMEN PELVIS WO 01/01/2024 7:49 PM FINDINGS: Bones/joints: No pelvic fracture visualized. There is advanced degenerative change in the right hip and mild degenerative change in the left hip. SI joints and pubic symphysis are intact. Soft tissues: Unremarkable. IMPRESSION: No acute findings. Dictated and Authenticated by: Víctor Jarquin MD. Ordering:KATINA Naqvi MD
[2024-10-03] MEDS: Atorvastatin 40 MG TAB PO (19:59)
[2024-10-04] MEDS: Acetaminophen 500 MG TAB PO ×2 (02:12→19:52)
[2024-10-04 03:03] VITALS: BP 148/102; PULSE 75; RESP 16; TEMP 36.3; O2SAT 97
[2024-10-04 07:52] VITALS: BP 110/74; PULSE 81; RESP 17; TEMP 36.3; O2SAT 97
[2024-10-04] MEDS: amLODIPine 5 MG TAB PO (08:04)
[2024-10-04] MEDS: Omeprazole 20 MG CAPCR 40 MG PO ×2 (08:04→19:52)
[2024-10-04] MEDS: buPROPion-XL 150 MG TABCR 300 MG PO (08:04)
[2024-10-04] MEDS: Metoprolol CR 50 MG TABCR PO (08:04)
[2024-10-04] MEDS: Aspirin E.C. 81 MG TABEC PO (08:04)
[2024-10-04] MEDS: Fenofibrate, Micronized 48 MG TAB PO (08:04)
[2024-10-04] MEDS: QUEtiapine 25 MG TAB PO (08:04)
[2024-10-04] MEDS: Docusate Sodium 100 MG CAP PO ×3 (08:04→19:52)
[2024-10-04] MEDS: Normal Saline Flush 10 ML SYR IVP ×2 (08:05→19:53)
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
[2024-10-04] MEDS: diphenhydrAMINE 50 MG/ML VIAL 25 MG IM (12:04)
[2024-10-04] MEDS: Haloperidol 5 MG/ML VIAL 2 MG IM (12:05)
[2024-10-04] MEDS: OLANZapine 5 MG TAB PO (13:12)
--- NOTE | 2024-10-04 13:57 | PHA.REVIEW2 ---
Pharmacy Admission Review Admission Clinical Review Admission Pharmacy Review: Acute delirium (Acute) On deep vein thrombosis (DVT) prophylaxis (Acute) Alteration in speech (Acute) Altered mental status (Acute) Acute on chronic renal insufficiency (Acute) Penicillins Allergy (Unknown, Verified 10/02/24 10:57) Swelling/Edema/Itching nitrofurantoin Adverse Reaction (Severe, Verified 10/02/24 10:57) Diarrhea ciprofloxacin (From Cipro) Adverse Reaction (Intermediate, Verified 10/02/24 10:57) Dizziness/Lighthead Sulfa (Sulfonamide Antibiotics) Adverse Reaction (Unknown, Verified 10/02/24 10:57) GI symptoms Resuscitation Status DNR/DNI Height 4 ft 11 in Weight 66.088 kg Pharmacy Admission Review Renal Dosing Renal Dosing: BUN 19 mg/dL (7-18) H 10/03/24 05:45 Creatinine 1.1 mg/dL (0.55-1.02) H 10/03/24 05:45 Medications needing adjustments: Reviewed (crcl = 39, current meds OK. monitor for any additional meds that may need renal dosing) Anticoagulation Anticoagulation: Hgb 13.1 g/dL (11.2-15.7) 10/03/24 07:19 Hct 39.5 % (36.0-46.0) 10/03/24 07:19 Plt Count 304 10^3/uL (130-400) 10/03/24 07:19 Creatinine 1.1 mg/dL (0.55-1.02) H 10/03/24 05:45 DVT Prophylaxis: Reviewed (TEDs) Therapeutic Anticoagulation: Reviewed Medications: Apixaban (on eliquis 2.5 mg BID at home *on hold (x 1 week)* per [facility] neuro) Opiate Usage Evaluate Pain Scale/Pains Meds: Reviewed (not on opiates) Relevant Labs Relevant Labs: Sodium 143 mmol/L (136-145) 10/03/24 05:45 Potassium 3.8 mmol/L (3.5-5.1) 10/03/24 05:45 Chloride 108 mmol/L (98-107) H 10/03/24 05:45 Magnesium 1.9 mg/dL (1.8-2.4) 10/02/24 12:00 Electrolytes, C-Reactive P, ESR: Reviewed DM Control DM Control: Reviewed (no diabetes diagnosis, a1c = 6.0%) Cardiac Review BP, HR, EF%: Reviewed (amlodipine & metoprolol initially held (permissive htn), have since been restarted (spoke w/ramos re: 10/03 note mentioning restarting metoprolol succ at 12.5 mg daily - confirmed this was a typo, should read 50 mg daily which is pt's home dose)) QTc Review QTc: Reviewed (QTc = 369 10/02/24) IV to PO Switch IV Medications: Reviewed (no IV meds) Home Meds Home Med List reviewed: Reviewed Relevent Home Meds Not ordered & why?: eliquis - held x 1 week per [facility] neuro Current Meds Current Medication Order Review: Reviewed Comments: started on quetiapine 25 mg BID then switched to olanzapine 5 mg daily for delirium and aggressive behaviors. prn benadryl & haldol given today @120
--- NOTE | 2024-10-04 16:32 | W.PM.PROGNOT ---
Date of Service Date of service: 10/04/24 Time of Service: 16:32 Assessment and Plan Assessment and plan (1) Acute delirium: Status: Acute Assessment and plan: Patient does have a history of cognitive decline but this is far from her baseline Will continue fall precautions and close monitoring, needing 1:1 not responding to Seroquel 25 mg BID for acute delirium and needed IM haldol and benadryl this morning for aggressive behaviors, unable to redirect after having taken seroquel as scheduled. will dc seroquel and initiate zyprexa 5 mg daily, adjust as needed. No evidence of acute infection, continue to monitor (2) Altered mental status: Status: Acute Assessment and plan: Head CT was negative for acute findings; showing old right-sided infarct [facility] neurology consultation completed MRI with no acute findings Received aspirin load and daily aspirin No Plavix recommendation Recommendation to hold Eliquis for 1 week echo with bubble with no acute findings, no dysrhythmia on telemetry High-intensity statin A1c 6.0 and lipid panel cholesterol 162 triglycerides 62 LDL 86 HDL 64 Resume amlodipine and metoprolol Will not reorder scopolamine patch and try as needed meclizine for vertigo symptoms-has not needed. PT following (3) CVA (cerebral vascular accident): Status: Chronic Assessment and plan: As above (4) Alteration in speech: Status: Acute Assessment and plan: As above (5) Acute on chronic renal insufficiency: Status: Acute Assessment and plan: CR was 1.1, at baseline no further daily surveillance unless condition changes. (6) Atrial fibrillation: Assessment and plan: stable on resumed metoprolol succinate 50 mg daily Eliquis also held for one week as per recommendation by [facility] [place] discontinue Telemetry (7) Essential hypertension: Assessment and plan: resume Amlodipine (8) On deep vein thrombosis (DVT) prophylaxis: Status: Acute Assessment and plan: GLENN's Discussed with Dr. Jerry Subjective Subjective Patient reports: afebrile; denies shortness of breath Interval history since last seen: patient confused, unable to be re-oriented. talking to people who are not in the room, nonsensical conversation and aggression towards to staff. Exam Narrative Exam Narrative: Frail elderly female older than stated age no acute distress head is atraumatic eyes nonicteric noninjected neurologic she is awake alert oriented to person only. Cardiovascular regular rate and rhythm her respirations are even and unlabored her abdomen is soft and nontender her extremities are without edema moves all extremities no rashes or lesions psychiatric confused with aggressive and combative behaviors. Objective Last Vital Signs Temp 36.3 C L 10/04/24 07:52 Pulse 81 10/04/24 07:52 Resp 17 10/04/24 07:52 BP 110/74 10/04/24 07:52 Pulse Ox 97 10/04/24 07:52 Time Spent with Patient Time Spent with Patient: 35-49 minutes Time was spent: preparing to see the patient(eg.review tests), obtaining and/or reviewing separately otained hiistory, ordering medications,tests, procedures, indepentently interpreting results and counseling the patient
[2024-10-04] MEDS: Diclofenac 1% Gel 100 GM TUBE TP (16:42)
[2024-10-04] MEDS: diphenhydrAMINE 50 MG/ML VIAL IM (17:58)
[2024-10-04] MEDS: Haloperidol 5 MG/ML VIAL IM (17:58)
[2024-10-04] MEDS: Atorvastatin 40 MG TAB PO (19:52)
[2024-10-04 20:02] VITALS: BP 146/99; PULSE 87; RESP 18; TEMP 36.6; O2SAT 95
--- NOTE | 2024-10-04 20:42 | NUR.NOTE ---
Pt appropriate with staff up with 2 assist to BSC side stepped well back to bed. alarm set 1:1 continuedNursing Note:
[2024-10-04] MEDS: diphenhydrAMINE 25 MG CAP 50 MG PO (22:24)
[2024-10-04] MEDS: OLANZapine 5 MG TAB 10 MG PO (22:25)
--- NOTE | 2024-10-04 22:54 | NUR.NOTE ---
Around 2200 pt getting more agitated with staff.Tried interventions BR,nutrition and PO fluids, warm blanket. Pt. sitting on edge of bed trying to stand. Got an order for Zyprexa 10 mg and benadryl 50 mg PO. Pt took medication with some encouragement, This editorial writer stood behind pt to not aggitate her which seemed to help a little. Pt still at bedside sitting . 1:[address] music playing for comfort to relax pt as well. Nursing Note:
--- NOTE | 2024-10-05 09:10 | PT.INNT ---
PT Notes Visit Reasons: AMS, Speech disturbance, r/o CVA Pt deferred for therapy per nurses request to prevent pt from getting agitated. (pt sleeping and was awake all night)
[2024-10-05] MEDS: buPROPion-XL 150 MG TABCR 300 MG PO (10:16)
[2024-10-05] MEDS: amLODIPine 5 MG TAB PO (10:16)
[2024-10-05] MEDS: Docusate Sodium 100 MG CAP PO ×2 (10:16→19:34)
[2024-10-05] MEDS: Metoprolol CR 50 MG TABCR PO (10:16)
[2024-10-05] MEDS: Aspirin E.C. 81 MG TABEC PO (10:16)
[2024-10-05] MEDS: Omeprazole 20 MG CAPCR 40 MG PO ×2 (10:16→19:34)
[2024-10-05] MEDS: OLANZapine 5 MG TAB PO ×2 (10:16→12:50)
[2024-10-05] MEDS: Calcium 600mg/Vit D 200U TAB 1 TAB PO (10:17)
[2024-10-05] MEDS: Fenofibrate, Micronized 48 MG TAB PO (10:17)
[2024-10-05] MEDS: Diclofenac 1% Gel 100 GM TUBE TP ×4 (10:19→19:43)
[2024-10-05] MEDS: Normal Saline Flush 10 ML SYR IVP ×2 (10:24→19:43)
[2024-10-05 11:11] VITALS: BP 140/80; PULSE 75; RESP 16; TEMP 36.4; O2SAT 98
--- NOTE | 2024-10-05 11:32 | PGE_ITS ---
Date of Service Date of service: 10/05/24 Time of Service: 11:32 Assessment and Plan Assessment and plan (1) Acute delirium: Status: Acute Assessment and plan: improved overnight after additional dosing with haldol, benadryl and zyprexa Will continue fall precautions and close monitoring, stop 1:1 increase zyprexa to 10 mg daily, adjust as needed. No evidence of acute infection, continue to monitor (2) Altered mental status: Status: Acute Assessment and plan: Head CT was negative for acute findings; showing old right-sided infarct [facility] neurology consultation completed MRI with no acute findings Received aspirin load and daily aspirin No Plavix recommendation Recommendation to hold Eliquis for 1 week echo with bubble with no acute findings, no dysrhythmia on telemetry High-intensity statin A1c 6.0 and lipid panel cholesterol 162 triglycerides 62 LDL 86 HDL 64 Resume amlodipine and metoprolol Will not reorder scopolamine patch and try as needed meclizine for vertigo symptoms-has not needed. PT following (3) CVA (cerebral vascular accident): Status: Chronic Assessment and plan: As above (4) Alteration in speech: Status: Acute Assessment and plan: As above (5) Acute on chronic renal insufficiency: Status: Acute Assessment and plan: CR was 1.1, at baseline no further daily surveillance unless condition changes. (6) Atrial fibrillation: Assessment and plan: stable on resumed metoprolol succinate 50 mg daily Eliquis also held for one week as per recommendation by [facility] [place] [place] neuro discontinue Telemetry (7) Essential hypertension: Assessment and plan: stable on amlodipine (8) On deep vein thrombosis (DVT) prophylaxis: Status: Acute Assessment and plan: GLENN's Discussed with Dr. Jerry Subjective Subjective Patient reports: no new complaints, tolerating liquids well, tolerating a regular diet and afebrile; denies shortness of breath Interval history since last seen: with ongoing behavioral disturbances overnight requiring IM haldol/benadryl and additional zyprexa dosing. hemodynamically and medically stable. this am awake for breakfast, no behavioral disturbances noted. remains confused but pleasant. Exam Narrative Exam Narrative: Frail elderly female older than stated age no acute distress head is atraumatic eyes nonicteric noninjected neurologic awake alert confused Cardiovascular pink warm dry and well perfused, pulse 70's respirations are even and unlabored abdomen soft and nontender extremities are without edema moves all extremities no rashes or lesions psychiatric pleasant and cooperative today, no behavioral issues. Objective Last Vital Signs Temp 36.4 C L 10/05/24 11:11 Pulse 75 10/05/24 11:11 Resp 16 10/05/24 11:11 BP 140/80 10/05/24 11:11 Pulse Ox 98 10/05/24 11:11 Time Spent with Patient Time Spent with Patient: 35-49 minutes Time was spent: preparing to see the patient(eg.review tests), obtaining and/or reviewing separately otained hiistory, ordering medications,tests, procedures and indepentently interpreting results
[2024-10-05] MEDS: Atorvastatin 40 MG TAB PO (19:34)
[2024-10-05 22:47] VITALS: BP 135/76; PULSE 72; RESP 16; TEMP 36.3; O2SAT 97
--- NOTE | 2024-10-06 05:36 | PCNE_ITS ---
Date of service: 10/06/24 Time of Service: 05:36 History of Present Illness History of Present Illness Chief Complaint: delerium Narrative: Linad is a 84-year-old woman I am meeting with her this morning with the medical student. Linda states that she lives at home. She does have Erris that comes in 3 days a week for 4 hours. She has her daughter Mary in [place] who does her financial matters. She also has a granddaughter and great granddaughter that help her. She prefers to stay by herself in most instances. She does not eat downstairs in the [place] in but rather makes her own meals. She was in her normal state of health until a few weeks ago when she had a UTI and was hospitalized last week. She went home the day before admission, but when her granddaughter found her without close on answering the door she was brought back to the hospital. Numerous tests were done. She was delirious and combative per staff. She had been on scopolamine for her dizziness that was stopped. She was also on Seroquel. She did have a one-to-one until last evening. She was started on Zyprexa and this was increased from 5 mg to 10 mg. The rest of the evening has been noneventful. She is using her call light appropriately. Staff is feeling that she is moving towards her baseline. Lidna is a woman that had 4 children. 3 with her first , they later and 1 with her second whom she describes as an alcoholic absent father. 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 She describes herself as a cranky person who prefers to be by herself. She also states that she has been crying a lot lately and that she finds herself just sitting there and the tears coming down. She says that her father was the same way as he got older. She sleeps fine. Her p.o. intake is okay. Generally things are satisfactory when she is back at [facility]. She also understands that her life there may be coming to an end due to her present weakness and frailty Consults Consult date: 10/05/24 Requesting physician: Donya Mendez Assessment and Plan Assessment and plan (1) Anxiety and depression: Status: Chronic (2) ACP (advance care planning): Status: Acute (3) Acute delirium: Status: Acute Assessment and plan: Acute delirium?she has now stopped the scopolamine patch that can sometimes cause delirium in older people. I am glad she is doing well on the olanzapine. She may not need this long-term She seems understanding that because of her weakness she will need to go to a rehab place and it may she may end up staying there. She needs considerable amount of help with her ADLs at this time. Talk specifically about health and rehab in the [facility]. Case management is working on this. Depression?mirtazapine 7.5 mg may be an excellent adjunct to help with her depression. It seems deep-seated and lifelong. This would also help with sleep and also stimulate her appetite. Thank you very much for this consult I did relay the information to hospitalist team. I will follow-up with her outpatient Review of Systems Narrative: She has not had pain. She feels very weak and does not feel able to walk. She wears depends PFSH All Active Problems (Updated 10/07/24 @ 07:21 by Patricia Turner MD, [place]) ACP (advance care planning) (Acute) Acute delirium (Acute) On deep vein thrombosis (DVT) prophylaxis (Acute) CVA (cerebral vascular accident) (Chronic) Alteration in speech (Acute) Altered mental status (Acute) Acute on chronic renal insufficiency (Acute) Pes anserinus bursitis of left knee (Acute) DEPO MEDROL 06/04/23 Depression (Chronic) Degenerative joint disease of right hip (Acute) POCUS INJECTION 03/13/24 Painful total knee replacement, right (Acute) s/p revision of patellar component Dr. Dixon DOS: 09/06/22 Regurgitation and rechewing (Acute ~10/2021) 12/13/21 [facility] GI, gastric emptying scan ordered and consult with Mixed Livestock Farmer Lung nodule < 6cm on CT (Acute) LEWIS (dyspnea on exertion) (Acute) Paraesophageal hernia (Acute) Urinary incontinence (Acute) Rib pain on left side (Acute) Left shoulder pain (Acute) Iliotibial band syndrome of right side (Acute) Anticoagulant long-term use (Acute) Hiatal hernia (Chronic) Adjustment disorder, unspecified (Acute 11/16/16) Anxiety and depression (Chronic 09/05/17) Gastroesophageal reflux disease (Chronic 04/28/16) Due to Hiatial Hernia Osteoporosis (Chronic 02/13/17) left hip T SCORE -3.3 Prolia inj q6m, first 01/2017, 02/25/21 Total T-Score: - 2.5 Medical History (Updated 10/07/24 @ 07:21 by Patricia Turner MD, [place]) Falls frequently [place] angioma Seborrheic keratoses Actinic keratosis 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 Dixon H/O endoscopy (10/24/21) S/P repair of paraesophageal hernia (08/15/21) [facility] Status post total right knee replacement (11/20/11) Open Carpal Tunnel release right Cholecystectomy (01/10/18) Extraction of cataract Family History Mother Stroke Father Neoplasm Grandmother , CVA No problems noted. Brother Diabetes Brother Diabetes Brother Diabetes Brother Diabetes Brother Diabetes Brother Diabetes Social History Smoking/Tobacco Use Status: Former Tobacco Use Quit Date: 10/29/85 Tobacco: How many years used: 25 Smoking risk assessment performed?: Yes Alcohol Intake: never Drug use: Never Substance use type: does not use Household members: none Housing: apartment Number of Children: 4 Current gender identity: female What type of physical activity do you participate in: none Do you feel safe at home: Yes Do you feel safe in your relationship?: Yes Exam Narrative Exam Narrative: Somewhat disheveled woman who seems to have a pretty good grasp on past events at this time. She is sad and near tears at different times. Her heart is irregular. Lungs good excursion. She was able to sit up on her own. She does not have any swelling in her legs. I did not see any wounds. Her feet are look great. Results Last Vital Signs Temp 97.3 F L 10/05/24 22:47 Pulse 72 10/05/24 22:47 Resp 16 10/05/24 22:47 BP 135/76 10/05/24 22:47 Pulse Ox 97 10/05/24 22:47 Labs 10/06/24 11:18 10/06/24 11:18 Labs: Laboratory Tests 10/03/24 10/06/24 05:45 11:18 Creatinine 1.1 H 1.3 H Conclusion Normal left ventricular wall thickness and chamber size. Ejection fraction is 60%. Wall motion is normal Normal right ventricular size and function Both atria are severely dilated There are no structural valvular abnormalities Moderate mitral regurgitation Mild to moderate tricuspid regurgitation. Estimated right ventricular systolic pressure is 50 mmHg Conclusion Normal left ventricular wall thickness and chamber size. Ejection fraction is 60%. Wall motion is normal Normal right ventricular size and function Both atria are severely dilated There are no structural valvular abnormalities Moderate mitral regurgitation Mild to moderate tricuspid regurgitation. Estimated right ventricular systolic pressure is 50 mmHg Imaging Imaging Studies: Conclusion Normal left ventricular wall thickness and chamber size. Ejection fraction is 60%. Wall motion is normal Normal right ventricular size and function Both atria are severely dilated There are no structural valvular abnormalities Moderate mitral regurgitation Mild to moderate tricuspid regurgitation. Estimated right ventricular systolic pressure is 50 mmHg MRI MIDLINE SHIFT: None. CEREBRAL PARENCHYMA: Old right anteroinferior and superolateral frontal lobe infarcts. No focus of restricted diffusion to suggest acute infarct. No space- occupying lesion identified. Mild atrophy consistent with the patient's age. Mild scattered foci of high signal in the white matter consistent with sequela of chronic microvascular disease. BRAINSTEM/CEREBELLUM: Normal. VISUALIZED PARANASAL SINUSES: Clear. MASTOIDS:Clear. Vasculature: Normal flow void. PITUITARY GLAND: Unremarkable. ORBITS: Unremarkable. IMPRESSION: No evidence of acute infarct or hemorrhage.. Old infarcts in the right frontal lobe. Time Spent Time Spent with Patient Time Spent(min): 48
[2024-10-06 07:39] VITALS: BP 163/94; PULSE 74; RESP 18; TEMP 36.8; O2SAT 94
[2024-10-06] MEDS: Metoprolol CR 50 MG TABCR PO (08:00)
[2024-10-06] MEDS: Fenofibrate, Micronized 48 MG TAB PO (08:00)
[2024-10-06] MEDS: Aspirin E.C. 81 MG TABEC PO (08:00)
[2024-10-06] MEDS: Calcium 600mg/Vit D 200U TAB 1 TAB PO (08:00)
[2024-10-06] MEDS: amLODIPine 5 MG TAB PO (08:00)
[2024-10-06] MEDS: Docusate Sodium 100 MG CAP PO ×3 (08:00→19:35)
[2024-10-06] MEDS: Omeprazole 20 MG CAPCR 40 MG PO ×2 (08:01→19:36)
[2024-10-06] MEDS: buPROPion-XL 150 MG TABCR 300 MG PO (08:01)
[2024-10-06] MEDS: Normal Saline Flush 10 ML SYR IVP ×2 (08:01→19:45)
[2024-10-06] MEDS: OLANZapine 5 MG TAB 10 MG PO (08:01)
[2024-10-06] MEDS: Diclofenac 1% Gel 100 GM TUBE TP ×4 (08:08→19:51)
--- NOTE | 2024-10-06 09:18 | W.PM.PROGNOT ---
Date of Service Date of service: 10/06/24 Time of Service: 09:18 Assessment and Plan Assessment and plan (1) Acute delirium: Status: Acute Assessment and plan: improved overnight on increased dose of olanzapine; will continue Failed haldol, benadryl maintain fall precautions and close monitoring No evidence of acute infection, continue to monitor (2) Altered mental status: Status: Acute Assessment and plan: Work-up negative for stroke as per negative head CT only showing old right-sided infarct MRI also negative Received aspirin load Continue daily aspirin No Plavix recommendation Recommendation to hold Eliquis for 1 week echocardiogram with no acute findings, no dysrhythmia on telemetry; bubble study not recommended by cardiology as per technical sales consultant. Continue high-intensity statin Completed on admission : A1c 6.0 and lipid panel cholesterol 162 triglycerides 62 LDL 86 HDL 64 Continue amlodipine and metoprolol Scopolamine patch d/c on admit -Will try as needed meclizine for vertigo symptoms-has not needed. Ongoing PT following (3) CVA (cerebral vascular accident): Status: Chronic Assessment and plan: As above (4) Alteration in speech: Status: Acute Assessment and plan: As above Resolving (5) Acute on chronic renal insufficiency: Status: Acute Assessment and plan: CR was 1.1 on admit still around baseline at 1.3- encourage oral fluid (6) Atrial fibrillation: Assessment and plan: continue metoprolol succinate 50 mg daily Eliquis also held for one week as per recommendation by [facility] neuro (7) Essential hypertension: Assessment and plan: Continue amlodipine (8) On deep vein thrombosis (DVT) prophylaxis: Status: Acute Assessment and plan: Continue GLENN's Discussed with Dr. Jerry Subjective Subjective Patient reports: no new complaints, feels better, tolerating liquids well, tolerating a regular diet, flatus and bowel movement; denies diarrhea, blood in stool, nausea, vomiting, shortness of breath or fever Exam Narrative Exam Narrative: This is a frail elderly female appearing older than stated age w/o acute distress,pleasant and cooperative today, no behavioral issues head is atraumatic, facial structures ar intact non-focal, awake alert oriented X3 Cardiovascular warm dry and well-perfused, pulse low 70's, no edema unlabored respiration, clears lungs bilaterally abdomen soft and nontender, bowel sounds are present extremities: strength 5/5 to all extremities, left shoulder weakness to Hx of trauma no rashes or lesions RASS 0, normal affect Objective Last Vital Signs Temp 36.8 C 10/06/24 07:39 Pulse 74 10/06/24 07:39 Resp 18 10/06/24 07:39 BP 163/94 H 10/06/24 07:39 Pulse Ox 94 10/06/24 07:39 Time Spent with Patient Time Spent with Patient: >50 minutes Time was spent: preparing to see the patient(eg.review tests), obtaining and/or reviewing separately otained hiistory, ordering medications,tests, procedures, referring, communicating with other health direct care specialist, indepentently interpreting results, counseling the patient and care coordination
[2024-10-06 11:21] LABS: Abs Immature Grans 0.05 10^3/uL (0.0-0.06); Absolute Basophil Count 0.06 10^3/uL (0.0-0.2); Absolute Eosinophil Count 0.28 10^3/uL (0.0-0.7); Absolute Monocyte Count 0.86 10^3/uL (0.1-0.8); Basophils % 0.7 %; Eosinophils % 3.3 %; HGB 13.6 g/dL (11.2-15.7); Immature Grans % 0.6 %; Lymphocytes % 15.4 %; MCH 29.9 pg (27.0-33.0); MCHC 33.2 % (32.0-36.0); MCV 90 fL (80-95); MPV 9.4 fL (8.0-11.0); Monocytes % 10.2 %; Neutrophils % 69.8 %; Platelet Count 317 10^3/uL (130-400); RBC 4.55 10^6/uL (3.93-5.22); RDW 13.6 % (11.7-14.6); RDW-SD 44.2 fL; WBC 8.45 10^3/uL (4.4-10.8)
--- NOTE | 2024-10-06 11:23 | PT.INTREAT ---
PT Notes Visit Reasons: AMS, Speech disturbance, r/o CVA Physical Therapy Inpatient Treatment Note Date: 10/06/2024 Precautions: Fall. Standard. Activity as tolerated. DNR/DNI. Subjective: Much calmer and more like herself today. Daughter Narcisa present in room during the evaluation. Denied headache, chest pain, and lightheadedness throughout. Complained of fatigue after walking about 150 feet, resolved with rest. Patient and daughter are agreeable to doing a short-term rehab placement before going home. Objective: General Observation: Resting in bed. Calmer and responding appropriately. Mental Status: Alert and oriented as to person and place. Said that she in [facility]. Able to follow instructions/requests. Pain: Pain Bed Mobility/Transfers: Minimal cueing provided for use of B hands as needed for support, movement sequence, AD management, and posture to reduce fall risk and minimize pain report Sit to stand contact guard assist with FWW with FWW Stand to sit contact guard assist with FWW with FWW Bed to chair contact guard assist with FWW with FWW Gait: Facilitated safe and correct performance of short level surface ambulation of 150 feet + 150 feet with contact guard assist and wheelchair follow by PT. No LOB. Minimal shortness of breath. Step height and length asymmetrical. Mild shortness of breath noted. Balance: Static Sitting: Good Dynamic Sitting: Good Static Standing: Fair Dynamic Standing: Poor THERA EX: Chest expansions exercises with DBE x 5 Bilateral LAQs x 10 Chest expansions exercises with DBE x 5 Seated marches x 10 Chest expansions exercises with DBE x 5 Trunk forward flexion while seatedwithout UE support x 10 Chest expansions exercises with DBE x 5 Trunk lateral flexion to R and to L x 10 without UE support Chest expansions exercises with DBE x 5 Ankle Df/PF Assessment: Sensorium and level of alertness much improved with responses now appropriate. Agreeable to doing short-term rehab. Still fatigued but activity otlerance much improved compared to the past two days. Goals: Goals X1 week 1. Supine-Sit independent 2. Sit-Supine independent 3. Sit-Stand independent 4. Stand-Sit independent 5. Bed-Chair independent 6. Chair-Bed independent 7. Independent gait on level surface with use of 4WW for at least 150 feet without report of pain nor dyspnea 8. Independent stair negotiation while holding onto bilateral rails for at least 10 steps without report of pain nor dyspnea 9. Independent with home exercise program 10. Good static and dynamic standing balance/tolerance Plan of Care/Treatment Plan: Patient will highly benefit from skilled physical therapy services including functional mobility training, bed mobility/transfer training, gait and balance training, therapeutic exercises, therapeutic activity, caregiver/staff/family education and training 1x/day, 7 days/week x 1 week. Plan of care has been reviewed with the VENEER DEPARTMENT MANAGER providing the service under Physical Therapy direction. Initiate Physical Therapy intervention for strengthening, bed mobility, transfers, gait, stairs, balance training, use of assistive device. DISCHARGE RECOMMENDATIONS: [] Home with no services [] [] Home with services [specify] [] Home with outpatient PT [] [] SNF for continued rehabilitation [] [] [facility] [] [] SNF versus LTC based on ability to participate and progress [] [X] Short-term SNF vs PT due to declining safety awareness and decreased independence with mobility performance. TREATMENT CODE/TIME: Session 1--29862 x 27 minutes for 2 units (9:46-10:13). Session 2-- 16314 x 24 minutes for 2 units (11:23-11:47).
[2024-10-06 11:30] LABS: Anion Gap 9.7 mmol/L (3-11); BUN 21 mg/dL (7-18); CO2 25.3 mmol/L (21.0-32.0); CREATININE 1.3 mg/dL (0.55-1.02); Chloride 106 mmol/L (98-107); Glucose 151 mg/dL (74-106); Potassium 3.5 mmol/L (3.5-5.1); Sodium 141 mmol/L (136-145)
--- NOTE | 2024-10-06 15:14 | W.NUTRFU ---
Date of service: 10/06/24 Time of Service: 14:30 Nutrition Note NOTE: Linda in bed with dtr visiting. Linda is currently medically cleared and waiting for discharge plan for placement. Pt usually drinks ONS at home for supper. She is agreeable to continue this at this admission - highlighted she should try and eat supper first and then try get some of the ONS an hour after or so. She confirms understanding of this and asked for vanilla boost as preference. Will continue to monitor intake, weight and labs the remainder of admission. Time Spent in Nutritional Counseling and Treatment: 5 min
[2024-10-06] MEDS: Acetaminophen 500 MG TAB PO ×2 (15:24→19:36)
--- NOTE | 2024-10-06 15:27 | CMPROGNOTE_ITS ---
Date of service: 10/06/24 Time of Service: 15:27 Care Management Progress Note Progress Note Text Progress Note Text: Linda was lying in bed when CM met with her; her daughter was in the room visiting. CM spoke to Narcisa, Linda's daughter, earlier today and discussed the option of sending additional referrals to local facilities, as Linda was transitioned to inpatient over the weekend. CM sent her referral to the [facility][1], which is the family's first choice. Linda was offered a bed from the [facility][1], and CM discussed this option with Linda and her daughter, who both agreed to accept the bed offer. The [facility][1] will accept Linda tomorrow morning, and Narcisa will drive her there via private vehicle. CM will continue to follow. Discharge Potential Discharge Needs: PCP F/U Appt Anticipated Barriers to Discharge: None Identified Patient/Family Education Needs: Review discharge instructions, discuss Ask Me Three Transportation: Private vehicle Plan: Linda has been accepted at the [facility][1], and will likely transition to that facility tomorrow. Her daughter will transport her via private vehicle. She will follow up with her PCP and discharge plan of care. CM will continue to follow. SDOH(Care Management) Screening Will the Patient Participate in the Screening?: Yes Do you worry about having a steady place to live?: no Problems where you live: no known problems In the past 12 months, have you had to go without electric, gas, oil or water in your home?: no Have you or anyone in your house had to go without enough food to eat?: no Has lack of transportation kept you from medical appointments or from doing things needed for daily living?: no Has anyone in your support network made you feel unsafe for any reason?: no Health Related Social Needs Health related social needs: housing instability, housed, with risk of homelessness(Z59.811)
[2024-10-06 15:30] VITALS: BP 129/95; PULSE 80; RESP 20; TEMP 37.2; O2SAT 95
[2024-10-06 19:14] VITALS: BP 121/57; PULSE 79; RESP 20; TEMP 36.5; O2SAT 96
[2024-10-06] MEDS: Atorvastatin 40 MG TAB PO (19:36)
[2024-10-07 07:33] VITALS: BP 127/84; PULSE 61; RESP 16; TEMP 36.8; O2SAT 94
[2024-10-07] MEDS: Metoprolol CR 50 MG TABCR PO (08:03)
[2024-10-07] MEDS: Omeprazole 20 MG CAPCR 40 MG PO (08:03)
[2024-10-07] MEDS: amLODIPine 5 MG TAB PO (08:03)
[2024-10-07] MEDS: buPROPion-XL 150 MG TABCR 300 MG PO (08:03)
[2024-10-07] MEDS: Aspirin E.C. 81 MG TABEC PO (08:04)
[2024-10-07] MEDS: Fenofibrate, Micronized 48 MG TAB PO (08:04)
[2024-10-07] MEDS: Normal Saline Flush 10 ML SYR IVP (08:04)
[2024-10-07] MEDS: OLANZapine 5 MG TAB 10 MG PO (08:04)
[2024-10-07] MEDS: Docusate Sodium 100 MG CAP PO (08:04)
[2024-10-07] MEDS: Calcium 600mg/Vit D 200U TAB 1 TAB PO (08:04)
--- NOTE | 2024-10-07 08:31 | IN_ITS ---
PT Notes Visit Reasons: AMS, Speech disturbance, r/o CVA Physical Therapy Inpatient Treatment Note Date: 10/07/2024 Precautions: Fall. Standard. Activity as tolerated. DNR/DNI. Subjective: Per Nurse Bryanna, patient has had no behavioral changes since Sunday afternoon. She added that patient may go to the SNF today. Patient in agreement with plan of geeting her strength back some more but ultimately wants to go home when she is safer. Continues to report fatigue but was able t do more this morning. Denied headache, chest pain, and lightheadedness throughout session. Objective: General Observation: Resting on her bedside recliner. Calmer and responding appropriately. Pleasant and cooperative. Mental Status: Alert and oriented as to person and place. Able to follow instructions/requests. Pain: Pain Bed Mobility/Transfers: Minimal cueing provided for use of B hands as needed for support, movement sequence, AD management, and posture to reduce fall risk and minimize pain report Sit to stand stand by assist assist with FWW Stand to sit stand by assist assist with FWW Bed to chair stand by assist assist with FWW Gait: Facilitated safe and correct performance of short level surface ambulation of 150 feet + 150 feet with stand by assist and wheelchair follow by PT. Minimal shortness of breath. Step height and length asymmetrical. Mild shortness of breath noted. Lilliam slowed, Retropulsed twice but no LOB. Stairs: GUided patient with safe and correct negotiation of 2 x 6-inch steps and 3 x 4- inch steps while holding onto B rails for support with moderate cueing provided for step-to gait pattern, hand placement and correct limb sequence. Balance: Static Sitting: Good Dynamic Sitting: Good Static Standing: Fair Dynamic Standing: Poor THERA EX: Chest expansions exercises with DBE x 5 Bilateral LAQs x 10 Chest expansions exercises with DBE x 5 Seated marches x 10 Chest expansions exercises with DBE x 5 Trunk forward flexion while seatedwithout UE support x 10 Chest expansions exercises with DBE x 5 Trunk lateral flexion to R and to L x 10 without UE support Chest expansions exercises with DBE x 5 Ankle Df/PF Assessment: At baseline level of alertness and disposition. Agreeable to doing short-term rehab. Still fatigued but activity tolerance continues to improve. No pain in the R knee reported throughout. Does better with use of proper foot wear during ambulation performance. Needs to have continued balance skilling and functional mobility training at the SNF in anticipation of ultimately going home once she regains modified independence with mobility ADl performance. Goals: Goals X1 week 1. Supine-Sit independent 2. Sit-Supine independent 3. Sit-Stand independent 4. Stand-Sit independent 5. Bed-Chair independent 6. Chair-Bed independent 7. Independent gait on level surface with use of 4WW for at least 150 feet with out report of pain nor dyspnea 8. Independent stair negotiation while holding onto bilateral rails for at least 10 steps without report of pain nor dyspnea 9. Independent with home exercise program 10. Good static and dynamic standing balance/tolerance Plan of Care/Treatment Plan: Patient will highly benefit from skilled physical therapy services including functional mobility training, bed mobility/transfer training, gait and balance training, therapeutic exercises, therapeutic activity, caregiver/staff/family education and training 1x/day, 7 days/week x 1 week. Plan of care has been reviewed with the WHARF OPERATOR providing the service under Physical Therapy direction. Initiate Physical Therapy intervention for strengthening, bed mobility, transfers, gait, stairs, balance training, use of assistive device. DISCHARGE RECOMMENDATIONS: [] Home with no services [] [] Home with services [specify] [] Home with outpatient PT [] [] SNF for continued rehabilitation [] [] [facility] [] [] SNF versus LTC based on ability to participate and progress [] [X] Short-term SNF vs PT due to declining safety awareness and decreased independence with mobility performance. TREATMENT CODE/TIME: 38263 x 26 minutes for 2 units (8:431-08:57).
--- NOTE | 2024-10-07 10:07 | DSE_ITS ---
Date of service: 10/07/24 Time of Service: 10:07 DS: Diagnosis Discharge Diagnosis (1) Anxiety and depression: Status: Chronic (2) ACP (advance care planning): Status: Acute (3) Acute delirium: Status: Acute Discharge Plan Disposition Patient Disposition: [facility](SNF) Condition: Improving Discharge Details Reason For Visit: AMS, Speech disturbance, r/o CVA Admit Date/Time: 10/02/24 16:50 Admit Provider: Bebo Jerry Attending Provider: Bebo Jerry Primary Care Provider: Patricia Garza Hospital Course Hospital Course: This 84-year-old female patient with a past medical history of recurrent UTIs, seen in December 2023 for dizziness related to atrial fibrillation, frequent falls, lung nodule, depression, hypertension, GERD, CVA with left-sided residual deficit, atrial fibrillation on metoprolol and Eliquis, hyperlipidemia and osteoporosis presented today to the ED at [facility] for evaluation of altered mental status, disorganized speech, confusion, aphasia and having been found by granddaughter without underwear and pants. The patient was discharged from the hospital yesterday after being workup for vertigo, hypertensive urgency and sent home with scopolamine patch and adjusted blood pressure medicine. On arrival to the ED the patient's blood pressure was in the 190s over 120s without tachycardia fever or hypoxia. Workup in the ED was scanned for a negative head CT showing only the old right sided infarct. CBC and chemistry studies were unremarkable. Neurology consult was completed with [facility] with recommendations for aspirin loading, without Plavix, MRI in the morning as well as other intervention management. Recommendation initially made to hold Eliquis. The hospitalist team admitted the patient to the medical surgical floor for evaluation and management of altered mental status, speech disturbance, rule out CVA. When seen in the ED, patient was mildly aphasic and dysarthric otherwise NIH stroke scale remained negative and all other category points. DNR/DNI status was confirmed. Patient reported initial headache from the morning had resolved. The sopolamine patch was stopped with PRN meclizine ordered for symptoms of vertigo. During the stay,MRI was negative for acute CVA and only showed old infarcts to the right frontal lobe again and mild scattered foci of high signal in the white matter consistent with sequela of chronic microvascular disease. Physical therapy recommended.The patient became was delirious and combative mostly at night needing 1:1 therapy and therapy with haloperidol and seroquel failed.The patient sustained a fall and no injury was seen as per imaging. She was started on Zyprexa and this was increased from 5 mg to 10 mg.Other chronic conditions were managed as per home medicine regimen.The patient is back to baseline and will be discharged to the [facility] today.Follow-up with Dr. Crooks from tele-neurology at [facility] completed with recommendation for the resumption of Eliquis in the setting of persistent atrial-fibrillation without evidence of acute CVA as per MRI. Changes discussed with CENTRIFUGAL SUPERVISOR from the [facility] via telephone call with amended discharge summary to be faxed at [phone]. The patient will need a follow-up in neurology. Discussed with [facility] Med[facility] and New Rx's Prescriptions: New meclizine 12.5 mg Tablet 12.5 mg PO TID PRN PRNQty: 1 0RF aspirin 81 mg Tablet,Delayed Release (Dr/Ec) 81 mg PO DAILY Qty: 30 0RF atorvastatin 40 mg Tablet 40 mg PO QPM Qty: 30 0RF olanzapine 5 mg Tablet 10 mg PO DAILY Qty: 60 0RF Continued diclofenac sodium 1 % gel 2 - 4 g topical QID PRN (Reason: pain) Qty: 100 0RF Rx Instructions: 2G for upper extremity joints; 4G for lower extremity joints acetaminophen 500 mg tablet 500 mg PO Q6H PRN (Reason: pain) Prolia 60 MG/1 ML syringe 60 mg SQ [id number] Patient Comments: 07/09/13 per pt not due until next month, DCW calcium-vitamin D3-vitamin K 1 EACH tablet,chewable 1 ea PO DAILY amlodipine 5 mg tablet 5 mg PO DAILY Qty: 90 3RF apixaban 2.5 mg tablet 2.5 mg PO BID Qty: 180 3RF bupropion HCl 300 mg tablet extended release 24 hr 300 mg PO QAM Qty: 90 3RF fenofibrate nanocrystallized 48 mg tablet 48 mg PO DAILY Qty: 90 3RF metoprolol succinate 50 mg tablet extended release 24 hr See Rx Instructions .ROUTE .COMPLEX Qty: 90 3RF Dose Instruction: TAKE 1 TABLET BY MOUTH DAILY Rx Instructions: TAKE 1 TABLET BY MOUTH DAILY omeprazole 40 mg capsule,delayed release(DR/EC) See Rx Instructions .ROUTE .COMPLEX Qty: 180 3RF Dose Instruction: TAKE 1 CAPSULE BY MOUTH TWICE A DAY Rx Instructions: TAKE 1 CAPSULE BY MOUTH TWICE A DAY guar gum Powder 0.25 tbsp PO DAILY Patient Comments: BENEFIBER Rx Instructions: mix into at least 4 oz water or juice before administering fluticasone furoate-vilanterol [Breo Ellipta] 200-25 mcg/dose Blister With Device 1 inh INHALATION DAILY albuterol sulfate 90 mcg/actuation Hfa Aerosol Inhaler 2 puff INHALATION Q6H PRN PRN nitrofurantoin monohyd/m-cryst 100 mg capsule 100 mg PO BID docusate sodium [Colace] 100 mg Capsule 100 mg PO DAILY Qty: 30 0RF diclofenac sodium [Voltaren Arthritis Pain] 1 % gel 2 g topical QID Qty: 100 0RF Rx Instructions: apply to single elbow, wrist or hand; for hand includes palm/fingers/back of hand Discontinued scopolamine base 1 mg over 3 days Patch 3 Day 1 mg transdermal Q72H Qty: 4 0RF Discharge Instructions Activity:: Activity as Tolerated Equipment/Supplies:: Walker Diet:: As Tolerated Discharge Orders Discharge Orders: Discharge Order (Routine); Ordered 10/07/24 Ordered By: Sofia Whelan Discharge Data Discharge Date/Time-TO BE ENTERED AT DEPARTURE: 10/07/24 11:17 DS: Summary Time Spent with Patient providing and/or coordinating discharge services: Greater than 30 minutes Status at Discharge Functional status at discharge: uses cane/walker Overall status at discharge: patient is progressing back to baseline Mental Status: mental status grossly normal Speech and Movement: speech and movement normal Mood: congruent mood Affect: normal affect Quality:SDOH Health Related Social Needs: Health related social needs housing instability, house d, with risk of eric elessness(Z59.811) Exam Narrative Exam Narrative: This is a frail elderly female appearing older than stated age w/o acute distress,pleasant and cooperative today, no behavioral issues Facial structures are intact non-focal, awake alert oriented X3 Cardiovascular warm dry and well-perfused, pulse low 70's, no edema unlabored respiration, clears lungs bilaterally abdomen soft and nontender, bowel sounds are present extremities: strength 5/5 to all extremities, left shoulder weakness to Hx of trauma no rashes or lesions RASS 0, normal affect Psych Mental Status: mental status grossly normal Speech and Movement: speech and movement normal Mood: congruent mood Affect: normal affect DS: Data Vitals/I&O Vitals and I&O: Vital Signs Temperature 36.8 C 10/07/24 07:33 Temperature Source Temporal Artery Scan 10/07/24 07:33 Pulse 61 10/07/24 07:33 Pulse Rhythm Irregular 10/02/24 17:53 Pulse 63 10/02/24 17:01 Respiratory Rate 16 10/07/24 07:33 Respiratory Effort Normal 10/02/24 17:53 Respiratory Depth Normal 10/02/24 17:53 Respiratory Pattern Normal 10/02/24 17:53 Blood Pressure 127/84 10/07/24 07:33 Blood Pressure Mean 149 10/02/24 17:16 Pulse Oximetry 94 10/07/24 07:33 Oxygen Delivery Method Room Air 10/07/24 07:33 Oxygen Flow Rate 0 10/07/24 07:33 Pain Level 4 10/07/24 07:33 Comment RN IN ROOM 10/06/24 15:30 Intake & Output 10/06/24 10/06/24 10/07/24 11:59 23:59 11:59 Intake Total 10 / 460 450 / 460 250 / 250 Output Total 150 / 150 125 / 125 Balance -140 / 310 450 / 310 125 / 125 Intake: IV Oral 440 / 440 240 / 240 Output: Urine 150 / 150 125 / 125 Other: Urine Color Yellow Yellow Yellow Urine Appearance Clear Clear Cloudy Urine Odor Normal None Normal Comment pt checked for incontinence, dry/no void at this time Data Completed and Pending Labs on day of discharge: Labs from last 24 hours 10/06/24 11:18 WBC 8.45 RBC 4.55 Hgb 13.6 Hct 41.0 MCV 90 MCH 29.9 MCHC 33.2 RDW 13.6 Plt Count 317 MPV 9.4 Immature Gran % 0.6 Neutrophils % 69.8 Lymphocytes % 15.4 Monocytes % 10.2 Eosinophils % 3.3 Basophils % 0.7 Nucleated RBC % 0.0 Absolute Neutrophils 5.90 Absolute Lymphocytes 1.30 Absolute Monocytes 0.86 H Absolute Eosinophils 0.28 Absolute Basophils 0.06 Sodium 141 Potassium 3.5 Chloride 106 Carbon Dioxide 25.3 Anion Gap 9.7 BUN 21 H Creatinine 1.3 H Est GFR (CKD-EPI 2020) 40.30 Glucose 151 H Calcium 9.0 PFSH All Active Problems (Updated 10/07/24 @ 07:21 by Patricia Turner MD, DC) ACP (advance care planning) (Acute) Acute delirium (Acute) On deep vein thrombosis (DVT) prophylaxis (Acute) CVA (cerebral vascular accident) (Chronic) Alteration in speech (Acute) Altered mental status (Acute) Acute on chronic renal insufficiency (Acute) Pes anserinus bursitis of left knee (Acute) DEPO MEDROL 06/04/23 Depression (Chronic) Degenerative joint disease of right hip (Acute) POCUS INJECTION 03/13/24 Painful total knee replacement, right (Acute) s/p revision of patellar component Dr. Dixon DOS: 09/06/22 Regurgitation and rechewing (Acute ~10/2021) 12/13/21 [facility] GI, gastric emptying scan ordered and consult with Gas Processing Plant Operator Lung nodule < 6cm on CT (Acute) LEWIS (dyspnea on exertion) (Acute) Paraesophageal hernia (Acute) Urinary incontinence (Acute) Rib pain on left side (Acute) Left shoulder pain (Acute) Iliotibial band syndrome of right side (Acute) Anxiety and depression (Chronic 09/05/17) Anticoagulant long-term use (Acute) Hiatal hernia (Chronic) Adjustment disorder, unspecified (Acute 11/16/16) Gastroesophageal reflux disease (Chronic 04/28/16) Due to Hiatial Hernia Osteoporosis (Chronic 02/13/17) left hip T SCORE -3.3 Prolia inj q6m, first 01/2017, 02/25/21 Total T-Score: - 2.5 Medical History (Updated 10/07/24 @ 07:21 by Patricia Turner MD, DC) Falls frequently Atrial fibrillation (01/22/18) Essential hypertension (04/28/16) History of CVA (cerebrovascular accident) (10/24/15) Dry Stroke, 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) Hyperlipidemia (04/28/16) Burgos angioma Seborrheic keratoses Actinic keratosis Keratoacanthoma (~05/2022) [facility]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 Brother Diabetes Brother Diabetes Brother Diabetes Brother Diabetes Brother Diabetes Brother Diabetes Social History Smoking/Tobacco Use Status: Former Tobacco Use Quit Date: 10/29/85 Tobacco: How many years used: 25 Smoking risk assessment performed?: Yes Alcohol Intake: never Drug use: Never Substance use type: does not use Household members: none Housing: apartment Number of Children: 4 Current gender identity: female What type of physical activity do you participate in: none Do you feel safe at home: Yes Do you feel safe in your relationship?: Yes Time Spent with Patient Time Spent with Patient: >85 minutes Time was spent: preparing to see the patient(eg.review tests), obtaining and/or reviewing separately otained hiistory, ordering medications,tests, procedures, referring, communicating with other health child care nurse, indepentently interpreting results, counseling the patient and care coordination
== END 2024-10-07 11:17 | disposition skilled nursing facility (03) | DRG 918 ==
LOC: ER 17:22 → MS 10-03 08:50
PROVIDERS: Nurse Practitioner Acute Care; Physician Assistant; Admitting Provider Family Medicine; Emergency Provider Registered Nurse Emergency; PCP Nurse Practitioner; Visit Provider Family Medicine
DX: T44.3X5A Adverse effect of other parasympatholytics [anticholinergics and antimuscarinics] and spasmolytics, initial encounter (principal); F05 Delirium due to known physiological condition; I69.354 Hemiplegia and hemiparesis following cerebral infarction affecting left non-dominant side; R47.89 Other speech disturbances; N18.9 Chronic kidney disease, unspecified; I48.0 Paroxysmal atrial fibrillation; I12.9 Hypertensive chronic kidney disease with stage 1 through stage 4 chronic kidney disease, or unspecified chronic kidney disease; F41.9 Anxiety disorder, unspecified; F32.9 Major depressive disorder, single episode, unspecified; M16.11 Unilateral primary osteoarthritis, right hip; R91.8 Other nonspecific abnormal finding of lung field; K44.9 Diaphragmatic hernia without obstruction or gangrene; R32 Unspecified urinary incontinence; M81.0 Age-related osteoporosis without current pathological fracture; R29.704 NIHSS score 4; R29.6 Repeated falls; E78.5 Hyperlipidemia, unspecified; Z66 Do not resuscitate; K21.9 Gastro-esophageal reflux disease without esophagitis; M81.8 Other osteoporosis without current pathological fracture; Z96.653 Presence of artificial knee joint, bilateral; Z87.440 Personal history of urinary (tract) infections; R91.1 Solitary pulmonary nodule; W19.XXXA Unspecified fall, initial encounter
CPT/HCPCS: 00123; 36415; 70496; 70498; 80048; 80053; 80061; 83690; 93005; 93306; 97110; 97162; 97530; 99285; 70450; 70551; 71046; 72125; 72170; 81003; 81015; 83036; 83735; 84443; 85025; 93010; 99223; 99232; 99233; 99239; J1200; J1630; J3490

== ENCOUNTER 2024-11-05 18:27 | Outpatient (REF) | payer MEDICARE, MEDICAID, SELFPAY ==
--- OUTSIDE RECORDS SUMMARY | 2024-11-05 18:45 | XMS_ITS | Encounter Summary ---
Author Organization [facility] [place] [address] Care Team Providers Care Axle Bearing Polisher Name Role Phone Patricia Garza APRN Primary Care Provider [phone] Reason for Referral * Consultation (Urgent) - Closed Specialty Diagnoses / Procedures Referred By Contac t Referred To Contact Gastroenterology Diagnoses Paraesophageal hernia Emesis, persistent Hal Marroquin MD [facility] [place] [address] [facility] [address] [place] [address] Referral ID Status Reason Start Date Expiration Date V isits Requested Visits Authorized [id number] Closed Consult, Test & Treat 11/14/2021 11/14/2022 1 1 Encounter Details Date Type Department Care Team (Late st Contact Info) Description 11/14/2021 Telephone [place] [address] Livier Chaney, RN Social History [...] from PCP requesting a visit with Dr. Mraroquin. Patient is still reporting daily emesis. Weight [...] vomiting documented in this encounter Care Teams Axle Bearing Polisher Relationship Specialty Start Date End Date Patricia Garza APRN [address] [place] [address] PCP - General Internal Medicine 04/02/20 documented as of this encounter
--- OUTSIDE RECORDS SUMMARY | 2024-11-05 18:45 | XMS_ITS | Encounter Summary ---
Author Organization [facility] Address [address] [place] [address] Care Team Providers Care Service Order Dispatcher Name Role Phone Unknown, Provider Primary Care Provider Myron yu Encounter Details Date Type Department Care Team (Late st Contact Info) Description 01/10/2018 Results Only [facility] [phone] Jodi Gillis MD [address] [place] [address] [address] [place], [place] [id number] Social History Tobacco Use Types Packs/Day Years Used Date Smoking Tobacco: Never Assessed Comments Unknown Sex and Gender Information Value Date Recorded Sex Assigned at Not on file Legal Sex Female 21:27 EDT Gender Identity Not on file Sexual Orientation [...] ? LINDA ROSS ? Accession #: ? [id number] ? : ? 1940 (Age: 77) ??F ? Collect Date: ? 01/10/2018 ? Location: ? [facility] ? Receive Date: ? 01/11/2018 ? Provider: JODI GILLIS MD Copy to: GABY COELHO DELIVERY ASSOCIATE ? Final Pathologic Diagnosis: GALLBLADDER, CHOLECYSTECTOMY: - Acute and chronic cholecystitis with reactive epithelial changes. See comment. - Cholelithiasis. Comment: Grievance Coordinator slides of this case were reviewed at [...] cm). The gallbladder serosa is dusky and patñio-purple to hemorrhagic. The cystic duct lumen is [...] dimension smooth multifaceted mixed cholesterol pigment calculus. Grievance Coordinator sections are submitted, to include the cystic duct margin, en face, in 1. MANDY Monique (ASCP) 01/14/2018 3:08 PM End of Report [facility] 01/10/2018 21:2 8 EDT 01/11/2018 21:28 EDT us Jodi Gillis MD PATHOLOGY ORDERABLES Fin al Result [facility] [address] [place] [address] documented in this encounter Visit Diagnoses Not on filedocumented in this encounter Care Teams Service Order Dispatcher Relationship Specialty Start Date End Date Unknown, Provider, PCP - General 01/11/18 documented as of this encounter
--- OUTSIDE RECORDS SUMMARY | 2024-11-05 18:45 | XMS_ITS | Encounter Summary ---
Author Organization [facility] [place] [address] Care Team Providers Care Oil Field Rig Builder Name Role Phone Kayla Patriciajim Gomes APRN Primary Care Provider [phone] Encounter Details Date Type Department Care Team (Late st Contact Info) Description 07/10/2022 3:20 PM EDT Office Visit Dermatology at [facility] [address] [place] [id number] Yolie Crow MD [facility] [address] [place] [address] KA (keratoacanthoma); Actinic keratoses; Seborrheic keratoses; Burgos [...] RTC: 1 year FSE []Note routed to admin secretary [x]Recall placed in scheduling system []Appointment scheduled at checkout Scribe attestation: Madelyn Goldberg [facility] has performed the documentation for this encounter in thepresence of and acting as a scribe for Yolie Crow MD. I performed the above scribed service and agree with the accuracy of the documentation in this encounter. Reviewed and signed by: Yolie Crow MD Dermatology [facility] * Bridgett Acuna MD - 07/10/2022 3:20 PM EDT I was the supervising physician working with dermatology resident Dr. Crow in the dermatology clinic during this patient visit. The level of resident supervision for this patient visit was indirectsupervision with direct supervision immediately available. (definition: [facility] GME Policy Statement on Graduate [...] non-neoplastic documented in this encounter Care Teams Oil Field Rig Builder Relationship Specialty Start Date End Date Patricia Garza APRN [address] [place] [address] PCP - General Internal Medicine 04/02/20 documented as of this encounter
--- OUTSIDE RECORDS SUMMARY | 2024-11-05 18:45 | XMS_ITS | Encounter Summary ---
Author Organization [facility] Address [facility] [place] [address] Care Team Providers Care Oncology Nurse Name Role Phone Patricia Garza APRN Primary Care Provider [phone] Reason for Visit * Consultation (Urgent) - Closed Specialty Diagnoses / Procedures Referred By Amanuel centeno Referred To Contact Gastroenterology Diagnoses Paraesophageal hernia Emesis, persistent Hal Marroquin MD [facility] [place] [address] [facility] [place] [place] [address] Referral ID Status Reason Start Date Expiration Date V isits Requested Visits Authorized [id number] Closed Consult, Test & Treat 11/14/2021 11/14/2022 1 1 Encounter Details Date Type Department Care Team (Latest Contact Info) Description 12/13/2021 3:00 PM EST Office [place] [address] Abbey Neumann PA [facility] [place] [address] Regurgitation and rechewing Social History [...] Repair Paraesophageal Hernia Incl Fundoplasty W/O Mesh (35191) (N/A, 08/15/2021); Upper GI Endoscopy, Diagnostic (28342) (N/A, 08/15/2021); and Upper GI Endoscopy, Diagnostic (13507) (N/A, 10/24/2021). Family History: family history includes [...] gastroesophageal Junction.. HREM 04/2021 Impressions based on Burlingham Classification v4.0: The catheter tip did not [...] She will try to arrange this at [facility]. Her son will contact them to schedule. If they do not have this test available they will let me know and will consider having this completed here at [facility]. They also question whether a telemetry rn may be helpful. I do think a consultation with our GI telemetry rn may be helpful to review a delayed gastric emptying diet. All of their questions today were answered and they are comfortable with this plan MANDY Barcenas [facility] [place] [phone] documented in this encounter Plan of Treatment Not on file documented as of this encounter Visit Diagnoses Diagnosis Regurgitation and rechewing Vomiting alone documented in this encounter Care Teams Oncology Nurse Relationship Specialty Start Date End Date Patricia Garza APRN [address] [place] [address] PCP - General Internal Medicine 04/02/20 documented as of this encounter
--- OUTSIDE RECORDS SUMMARY | 2024-11-05 18:45 | XMS_ITS | Referral Summary ---
Author Organization [facility] Address [address] [place] [address] Care Team Providers Care Supervisor Meter Shop Name Role Phone Unknown, Provider Primary Care Provider Unava ilable Social History Tobacco Use Types Packs/Day Years Used Date Smoking Tobacco: Never Assessed Interpersonal Safety Answer Date Record ed Physically Hurt Never 05/31/2020 Verbally Threaten Not on file 05/31/2020 Comments Unknown Sex and Gender Information Value Date Recorded Sex Assigned at Not on file Legal Sex Female 21:27 EDT Gender Identity Not on file Sexual Orientation Not on file Plan of Treatment Not on file Care Teams Supervisor Meter Shop Relationship Specialty Start Date End Date Unknown, Provider, PCP - General 01/11/18
--- OUTSIDE RECORDS SUMMARY | 2024-11-05 18:45 | XMS_ITS | Encounter Summary ---
Author Organization [facility] Address [address] [place] [address] Care Team Providers Care Waiter/Waitress Cocktail Lounge Name Role Phone Unknown, Provider Primary Care Provider Myron yu Encounter Details Date Type Department Care Team (Late st Contact Info) Description 10/01/2020 Lab Requisition [facility] Pathology & Laboratory Medicine - [facility] [address] [place] [address] Outr Resulting Lab, Provider Social History Tobacco [...] in accordance with CLIA regulations, [employer] (CAP) guidelines (Jan 15, 2020), and FDA guidance (Dec 27, 2019). This test is only for use under the Food and Drug Administration's Emergency Use Authorization. Swab ENTIRE NASOPHARYNX / Unknown 10/01/2020 13:55 EST 10/01/2020 21:31 EST us Provider Outr Resulting Lab MICROBIOLOGY - GENER AL ORDERABLES Final Result [facility] [place], [place] * COVID-19 TESTING (10/01/2020 13:55 EST) COVID-19 rt-PCR Result NEGATIVE Negative 10/04/2020 14:11 EST [facility] Comment: 2019-novel Coronavirus (2019-nCoV) not detected [...] in accordance with CLIA regulations, [employer] [place] (CAP) guidelines (Jan 15, 2020), and FDA guidance (Dec 27, 2019). This test is only for use under the Food and Drug Administration's Emergency Use Authorization. Performing Lab [facility] 10/04/2020 14:11 EST [facility] Swab 10/01/2020 13:5 5 EST 10/01/2020 21:31 EST us Provider Outr Resulting Lab MICROBIOLOGY - GENER AL ORDERABLES Final Result [facility] [address] [place] [address] [facility] [place], [place] documented in this encounter Visit Diagnoses Not on filedocumented in this encounter Care Teams Waiter/Waitress Cocktail Lounge Relationship Specialty Start Date End Date Unknown, Provider, PCP - General 01/11/18 documented as of this encounter
--- OUTSIDE RECORDS SUMMARY | 2024-11-05 18:45 | XMS_ITS | Encounter Summary ---
Author Organization [facility] Address [address] [place] [address] Care Team Providers Care Distribution Center Supervisor Name Role Phone Unknown, Provider Primary Care Provider Unajohn ilable Encounter Details Date Type Department Care Team (Late st Contact Info) Description 10/10/2022 Lab Requisition [facility] Pathology & Laboratory Medicine - [address] [address] Patricia Garza NP [address] [place], [place] [id number] Encounter for other general examination Social History [...] agglomeran s(A) VITEK SUSCEPTIBILITY 10/12/2022 9:23 EST [facility] Organism (organism) URINE / [...] th oxazole VITEK SUSCEPTIBILITY <=20 ug/mL: Susceptible us Patricia Garza MASH GRINDER MICROBIOLOGY - GENERAL ORDERAB LES Edited Result - Final Performing Organization Address [facility] Co de Phone Number [facility] [address] [place] [address] * (ABNORMAL) ORGANISM IDENTIFICATION AND SUSCEPTIBILITY (10/03/2022 16:23 EST) Organism ID Pseudomonas putida(A) VITEK SUSCEPTIBILITY 10/12/2022 9:24 EST [facility] Organism (organism) URINE / [...] th oxazole VITEK SUSCEPTIBILITY >=320 ug/mL: Resistant us Patricia Garza MASH GRINDER MICROBIOLOGY - GENERAL ORDERAB LES Final Result [facility] [address] [place] [address] documented in this encounter Visit Diagnoses Diagnosis Encounter for other general examination documented in this encounter Care Teams Distribution Center Supervisor Relationship Specialty Start Date End Date Unknown, Provider, PCP - General 01/11/18 documented as of this encounter
--- OUTSIDE RECORDS SUMMARY | 2024-11-05 18:45 | XMS_ITS | Encounter Summary ---
Author Organization [facility] [place] [address] Care Team Providers Care Nurse Discharge Planner Name Role Phone Patricia Garza APRN Primary Care Provider [phone] Encounter Details Date Type Department Care Team (Late st Contact Info) Description 10/03/2024 12:05 AM EST Ancillary Procedure Radiology Library at [facility] [place] [address] Patricia Garza APRN [address] [place] [address] Social History Tobacco Use Types Packs/Day Years [...] Associated Diagnosis Comments FILM LIBRARY STORAGE ONLY MR HEAD Routine 10/03/2024 12:05 AM EST documented in this encounter Results * Film Library- Storage Only MR Head (10/03/2024 12:05 AM EST) Narrative [facility] 10/07/2024 11:16 AM EST This exam is auto-finalizing. It's purpose is for storage only. Patricia Garza APRN IM FILM LIBRARY ORD ERABLES [place], [place] documented in this encounter Visit Diagnoses Not on filedocumented in this encounter Care Teams Nurse Discharge Planner Relationship Specialty Start Date End Date Patricia Garza APRN [address] [place] [address] PCP - General Internal Medicine 04/02/20 documented as of this encounter
--- OUTSIDE RECORDS SUMMARY | 2024-11-05 18:45 | XMS_ITS | Encounter Summary ---
Author Organization [facility] [place] [address] Care Team Providers Care Live In Housekeeper Name Role Phone Patricia Garza APRN Primary Care Provider Encounter Details Date Type Department Care Team (Late st Contact Info) Description 06/20/2022 2:40 PM EDT Office Visit Dermatology at [facility] [address] [place] [phone] Yolie Crow MD [facility] [address] [place] [address] Keratoacanthoma Social History Tobacco Use Types Packs/Day [...] Reviewed pathology and ED&C procedure with patient. Marshall decision to proceed with ED&C today. - [...] At patients for FBSE []Note routed to medical office secretary []Recall placed in scheduling system [x]Appointment scheduled at checkout Scribe attestation: ALTAF Roca has performed the documentation for this encounter in the presence of and acting as a scribe for Yolie Crow MD. I performed the above scribed service and agree with the accuracy of the documentation in this encounter. Reviewed and signed by: Yolie Crow MD Dermatology [facility] Patient seen and evaluated with staff iron handler: Rina Ramos MD Dermatology [facility] * Rina Ramos MD - 06/20/2022 2:40 [...] skin documented in this encounter Care Teams Live In Housekeeper Relationship Specialty Start Date End Date Patricia Garza APRN [address] [place] [address] PCP - General Internal Medicine 04/02/20 documented as of this encounter
--- OUTSIDE RECORDS SUMMARY | 2024-11-05 18:45 | XMS_ITS | Encounter Summary ---
[place] [address] Care Team Providers Care Tab Cutter Name Role Phone Patricia Garza APRN Primary Care Provider Reason for Referral * Consultation (Routine) - Closed Specialty Diagnoses / Procedures Referred By Contkimberley t Referred To Contact Gastroenterology Diagnoses Noninfective gastroenteritis and colitis, unspecified Gastro-esophageal reflux disease without esophagitis Other specified postprocedural states Personal history of other diseases of the digestive system motility- noinfective gastroenteritis- GERD/ (Sharla P 2021) Patricia Garza APRN [address] [place] [address] [facility] [address] [place] [address] Referral ID Status Reason Start Date Expiration Date V isits Requested Visits Authorized [id number] Closed Consult, Test & Treat PCP Updated and/or Approved 04/23/2023 10/23/2023 6 6 Encounter Details Date Type Department Care Team (Latest Contact Info) Description 05/04/2023 Transcribe Orders eDH Incoming Referrals [phone] Patricia Garza APRN [address] [place] [address] Routine general medical examination at a health [...] facility documented in this encounter Care Teams Tab Cutter Relationship Specialty Start Date End Date Patricia Garza APRN [address] [place] [address] PCP - General Internal Medicine 04/02/20 documented as of this encounter
--- OUTSIDE RECORDS SUMMARY | 2024-11-05 18:45 | XMS_ITS | Encounter Summary ---
Author Organization [facility] [place] [address] Care Team Providers Care Animal Biologist Name Role Phone Patricia Garza APRN Primary Care Provider Encounter Details Date Type Department Care Team (Late st Contact Info) Description 10/02/2024 Ancillary Procedure Radiology Library at [facility] [place] [address] Patricia Garza APRN [address] [place], [place] [address] Social History Tobacco Use Types Packs/Day Years [...] Diagnosis Comments FILM LIBRARY STORAGE ONLY CT HEAD AND SPINE Routine 10/02/2024 12:00 AM EST documented in this encounter Results * Film Library- Storage Only CT Head And Spine (10/02/2024 12:00 AM EST) Narrative [place] [address]/10/2024 11:15 AM EST This exam is auto-finalizing. It's purpose is for storage only. Patricia Garza APRN IM FILM LIBRARY ORD ERABLES [place], [place] documented in this encounter Visit Diagnoses Not on filedocumented in this encounter Care Teams Animal Biologist Relationship Specialty Start Date End Date Patricia Garza APRN [address] [facility] [place] [address] PCP - General Internal Medicine 04/02/20 documented as of this encounter
--- OUTSIDE RECORDS SUMMARY | 2024-11-05 18:45 | XMS_ITS | Encounter Summary ---
Author Organization [facility] [place] [address] Care Team Providers Care In File Operator Name Role Phone Patricia Graza APRN Primary Care Provider Encounter Details Date Type Department Care Team (Late st Contact Info) Description 03/29/2022 Ancillary Procedure Radiology Library at [facility] [place] [address] Patricia Garza APRN [address] [place], [place] [id number] Social History Tobacco Use Types Packs/Day Years [...] is for storage only. Patricia Garza APRN [facility] FILM LIBRARY ORD ERABLES [place], [place] documented in this encounter Visit Diagnoses Not on filedocumented in this encounter Care Teams In File Operator Relationship Specialty Start Date End Date Patricia Garza APRN [address] [place] [address] PCP - General Internal Medicine 04/02/20 documented as of this encounter
--- OUTSIDE RECORDS SUMMARY | 2024-11-05 18:45 | XMS_ITS | Clinical Summary ---
Author Organization [facility] Address [facility] [place] [address] Care Team Providers Care Director Organizational Name Role Phone Patricia Garza APRN Primary Care Provider [phone] Allergies Active Allergy Reactions Criticality Noted Date [...] accident) Atrial fibrillation Overview (04/13/2020): on eliquis Encounters Date Type Department Care Team Description 10/07/2024 11:40 AM EST Telehealth [place] [address] Telehealth, Neurology 10/03/2024 12:05 AM EST Ancillary Procedure Radiology Library at [facility] [place] [id number] Patricia Garza, TINNER HELPER 10/03/2024 Ancillary Procedure Radiology Library at [facility] [place] [id number] Patricia Garza, TINNER HELPER 10/02/2024 1:55 PM EST Telehealth notes only TeleHealth [facility] [place] [id number] Telehealth, Neurology 10/02/2024 Ancillary Procedure Radiology Library at [facility] [place] [id number] Patricia Garza, TINNER HELPER 09/30/2024 Ancillary Procedure Radiology Library at [facility] [place] [id number] Patricia Garza, TINNER HELPER from Last 3 Months Family History Medical History Relation Comments Cancer [...] Health Maintenance Due Date Last Done Comments Tetanus/Diphtheria/Pertussis Vaccines (1 - Tdap) 02/23 Pneumoccocal Vaccine: 65+ (1 of 1 - PCV) 1989 Zoster vaccine (1 of 2) 1989 Advance Directive 1994 Bone Density Scan 02/24/2004 RSV Vaccine (1 - 1-dose 75+ series) 2014 Covid-19 Vaccine (1 - season) 2024 Influenza (Flu) vaccine (1 o f 1 - Influenza standard series) 06/29/2024 Procedures Procedure Name Priority Date/Time Associated Diagnosis Comments FILM LIBRARY STORAGE ONLY MR HEAD Routine 10/03/2024 12:05 AM EST FILM LIBRARY STORAGE ONLY CT HEAD AND SPINE Routine 10/03/2024 12:00 AM EST FILM LIBRARY STORAGE ONLY CT HEAD AND SPINE Routine 10/02/2024 12:00 AM EST FILM LIBRARY STORAGE ONLY CT HEAD Routine 09/30/2024 12:00 AM EST from Last 3 Months Results * Film Library- Storage Only MR Head (10/03/2024 12:05 AM EST) Narrative [facility] - 10/07/2024 11:16 AM EST This exam is auto-finalizing. It's purpose is for storage only. Patricia Garza APRN [facility] FILM LIBRARY ORD [employer] Performing Organization Address [facility] [address]/[facility] de Phone Number [place], [place] * Film Library- Storage Only CT Head And Spine (10/03/2024 12:00 AM EST) Only the most recent of2 resultswithin the time period is included. Narrative [facility] - 10/07/2024 11:14 AM EST This exam is auto-finalizing. It's purpose is for storage only. Patricia Garza APRN [facility] FILM LIBRARY ORD ERABLES Performing Organization Address [facility] [address]/[facility] de Phone Number [place], [place] * Film Library- Storage Only CT Head (09/30/2024 12:00 AM EST) Narrative [facility] - 10/07/2024 11:15 AM EST This exam is auto-finalizing. It's purpose is for storage only. Patricia Garza APRN IMG FILM LIBRARY ORD ERABLES [place], [place] from Last 3 Months Advance Directives Documents on File Type Date Recorded Patient Camera Systems Engineer Expl anation Personal Camera Systems Engineer 05/24/2021 12:[address] * Attempt [...] Status decision made by: Patient Care Teams Director Organizational Relationship Specialty Start Date End Date Patricia Garza APRN [address] [place] [address] PCP - General Internal Medicine 04/02/20
--- OUTSIDE RECORDS SUMMARY | 2024-11-05 18:45 | XMS_ITS | Encounter Summary ---
Author Organization [facility] [place] [address] Care Team Providers Care Airport Operations Specialist Name Role Phone Patricia Garza APRN Primary Care Provider [phone] Encounter Details Date Type Department Care Team (Late st Contact Info) Description 09/30/2024 Ancillary Procedure Radiology Library at [facility] [place] [address] Patricia Garza APRN [address] [place], [place] [address] Social History Tobacco Use Types Packs/Day Years [...] Comments FILM LIBRARY STORAGE ONLY CT HEAD Routine 09/30/2024 12:00 AM EST documented in this encounter Results * Film Library- Storage Only CT Head (09/30/2024 12:00 AM EST) Narrative [facility] - 10/07/2024 11:15 AM EST This exam is auto-finalizing. It's purpose is for storage only. Patricia Garza APRN [employer] FILM LIBRARY ORD ERABLES [place], [place] documented in this encounter Visit Diagnoses Not on filedocumented in this encounter Care Teams Airport Operations Specialist Relationship Specialty Start Date End Date Patricia Garza APRN [address] [place] [address] PCP - General Internal Medicine 04/02/20 documented as of this encounter
--- OUTSIDE RECORDS SUMMARY | 2024-11-05 18:45 | XMS_ITS | Encounter Summary ---
Author Organization [facility] [place] [address] Care Team Providers Care Nuclear Cardiology Technologist Name Role Phone Patricia Garza APRN Primary Care Provider [phone] Encounter Details Date Type Department Care Team (Late st Contact Info) Description 10/03/2024 Ancillary Procedure Radiology Library at [facility] [place] [address] Patricia Garza APRN [address] [place], [place] [address] Social History Tobacco Use Types Packs/Day Years [...] AND SPINE Routine 10/03/2024 12:00 AM EST documented in this encounter Results * Film Library- Storage Only CT Head And Spine (10/03/2024 12:00 AM EST) Narrative [place] [address]10/2024 11:14 AM EST This exam is auto-finalizing. It's purpose is for storage only. Patricia Garza APRN IM FILM LIBRARY ORD ERABLES [place], [place] documented in this encounter Visit Diagnoses Not on filedocumented in this encounter Care Teams Nuclear Cardiology Technologist Relationship Specialty Start Date End Date Patricia Garza APRN [address] [facility] [place] [address] PCP - General Internal Medicine 04/02/20 documented as of this encounter
--- OUTSIDE RECORDS SUMMARY | 2024-11-05 18:45 | XMS_ITS | Encounter Summary ---
[place] [address] Care Team Providers Care Display Designer Name Role Phone Patricia Garza APRN Primary Care Provider Encounter Details Date Type Department Care Team (Late st Contact Info) Description 10/02/2024 1:55 PM EST Telehealth [place] [phone] Telehealth, Neurology None Social History Tobacco Use Types Packs/Day Years [...] as of this encounter Miscellaneous Notes * Consult Note - Sai Hernandez MD - 10/02/2024 1:55 PM EST [facility] TELENEUROLOGY EMERGENT TELENEUROLOGY CONSULT NOTE Date 10/02/24 Patient: Linda Fuller : 1940 Gender: female VISIT Requesting Location: [facility] ([facility]) Requesting Physician: Saray Delgado PA Diagnosis/Reason for Consult: AIS TLKW >24 hours (Note: not a tPA or thrombectomy candidate) Arrival Date: 10/02/2024 Arrival Time: 10:49 AM Consult Request Time: 2 PM Start Time of Video Consult: 2:30 PM Time Last Known Well: More than 24 hours PROVIDER History: 84-year-old woman who lives by herself was brought to the emergency room with confusion and deviation from baseline according to her neighbors. She was here few days ago and she was diagnosed with UTI. At that time head CT scan was done and reportedly was unremarkable. This time she presents to the emergency room with severely elevated blood pressure of 190/123. Head CT scan shows right frontal hypodensity. Besides being confused, she did not have any other focal neurological deficit. Reportedly the patient has been compliant with treatments eluding Eliquis which is delivered to her by nurse that comes to her house. Past Medical History: HTN, a-fib, Renal insufficiency, bursitis left knee, depression, right hip DJD, lung nodules, dyspnea, esophageal hernia, urine incontinence, osteoporosis, vertigo Current Medications: Tylenol, albuterol, amlodipine, apixaban, Wellbutrin, vitamin D, fenofibrate, fluticasone, metoprolol, omeprazole, scopolamine patch Allergies: penicillin, nitrofurantoin, ciprofloxacin and sulfa Neurologic Social History: Are you a current smoker or have you ever smoked: denies Do you consume alcohol: denies Vitals: Pulse: 74 Blood pressure: 190/123 NIH STROKE SCALE 1A. Level of Consciousness 0 1B. LOC Questions 2 1C. LOC Commands 1 2. Best Gaze 0 3. Visual 0 4. Facial Palsy 0 5. Motor Arm Left Arm 0 Right Arm 0 6. Motor Leg Left Leg 0 Right Leg 0 7. Limb Ataxia 0 8. Sensory 0 9. Best Language 1 10. Dysarthria 0 11. Extinction and Inattention (formerly neglect) 0 TOTAL 4 Additional Neurologic Examination Findings: Gait was deferred Patient had difficulty following commands Radiology Imaging Imaging/Results: Head CT scan shows right frontal hypodensity. Head and neck CT angiogram does not show acute abnormality. 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 Her presentation is mostly consistent with encephalopathy and altered executive function without particularly lateralizing motor or sensory symptoms specially in the left side. There are no symptoms or signs of seizures. We will evaluate by obtaining brain MRI to find out if this stroke carries any embolic appearance versus microangiopathic atherosclerotic ischemic appearance. RECOMMENDATIONS/PLAN: -Hold Eliquis -Load aspirin 325 mg then 81 mg daily -brain MRI with and without contrast to confirm stroke and rule out underlying mass -Upon the evaluation of the MRI, resumption of Eliquis can be discussed but most likely in a week given the size of the hypodensity seen on his CT scan. -PT/OT evaluation -Hypertension management with goal of normal blood pressure OBSERVATION/ADMISSION/TRANSFER: Admission for stroke workup and management Sai Hernandez MD [facility] TeleNeurology documented in this encounter Plan of Treatment Not on file documented as of this encounter Visit Diagnoses Not on filedocumented in this encounter Care Teams Display Designer Relationship Specialty Start Date End Date Patricia Garza APRN [address] [place] [address] PCP - General Internal Medicine 04/02/20 documented as of this encounter
--- OUTSIDE RECORDS SUMMARY | 2024-11-05 18:45 | XMS_ITS | Encounter Summary ---
[place] [address] Care Team Providers Care Home Service Demonstrator Name Role Phone Patricia Garza APRN Primary Care Provider [phone] Encounter Details Date Type Department Care Team (Late st Contact Info) Description 10/07/2024 11:40 AM EST Telehealth notes [place] [phone] Telehealth, Neurology None Social History Tobacco Use [...] encounter Miscellaneous Notes * Consult Note - Espinoza Crooks MD - 10/07/2024 11:[address] [facility] TELENEUROLOGY TELEPHONE ONLY NOTE Date 10/07/24 Patient: Linda Fuller : 1940 Gender: female VISIT Requesting Location: [facility] Requesting Physician: Mireya Whelan APRN The patient was seen by Dr. Hernandez on 10/02 and the Eliquis was discontinued in case there was an additional infarction not appreciated on that CT scan on admission. MRI done on 10/03 showed no new infarction and they were wondering if they can now resume the Eliquis. I thought that was reasonable. No additional input requested. documented in this encounter Plan of Treatment Not on file documented as of this encounter Visit Diagnoses Not on filedocumented in this encounter Care Teams Home Service Demonstrator Relationship Specialty Start Date End Date Patricia Garza, LAZARA [address] [place] [address] PCP - General Internal Medicine 04/02/20 documented as of this encounter
--- OUTSIDE RECORDS SUMMARY | 2024-11-05 18:45 | XMS_ITS | Encounter Summary ---
Author Organization [facility] Address [address] [place] [address] Care Team Providers Care Dcs Engineer Name Role Phone Unknown, Provider Primary Care Provider Myron yu Encounter Details Date Type Department Care Team (Late st Contact Info) Description 04/26/2023 Lab Requisition [facility] Pathology & Laboratory Medicine - [facility] [address] [place], [place] [id number] Outr Resulting Lab, Provider Social History Tobacco [...] Salmonella PCR Negative Negative 04/27/2023 7:06 EDT [facility] Shigella/Enteroin vasive E. coli Negative Negative 04/27/2023 7:06 EDT [facility] HN LAB CAMPYLOBACTER PCR Negative Negative 04/27/2023 7:06 EDT [facility] Shiga Toxin PCR Negative Negative 7:06 EDT [facility] Feces SPECIMEN FROM RECTUM / Unknown 04/24/2023 10:30 EDT 04/26/2023 18:18 EDT us Provider Outr Resulting Lab MICROBIOLOGY - GENER AL ORDERABLES Final Result Performing Organization Address City/State/[facility] Co de Phone Number [facility] [address] [place] [address] documented in this encounter Visit Diagnoses Not on filedocumented in this encounter Care Teams Dcs Engineer Relationship Specialty Start Date End Date Unknown, Provider, PCP - General 01/11/18 documented as of this encounter
--- OUTSIDE RECORDS SUMMARY | 2024-11-05 18:45 | XMS_ITS | Encounter Summary ---
Author Organization [facility] [place] [address] Care Team Providers Care Warehouser Name Role Phone Patricia Garza APRN Primary Care Provider Encounter Details Date Type Department Care Team (Late st Contact Info) Description 11/23/2022 Ancillary Procedure Radiology Library at [facility] [place] [address] Patricia Garza APRN [address] [place], [place] [address] Social History Tobacco Use Types Packs/Day Years [...] FILM LIBRARY STORAGE ONLY CT HEAD Routine 11/23/2022 12:00 AM EST documented in this encounter Results * Film Library- Storage Only CT Head (11/23/2022 12:00 AM EST) Narrative [facility] - 10/07/2024 11:41 AM EST This exam is auto-finalizing. It's purpose is for storage only. Patricia Garza APRN [employer] FILM LIBRARY ORD ERABLES [place], [place] documented in this encounter Visit Diagnoses Not on filedocumented in this encounter Care Teams Warehouser Relationship Specialty Start Date End Date Patricia Garza APRN [address] [facility] [place] [address] PCP - General Internal Medicine 04/02/20 documented as of this encounter
--- OUTSIDE RECORDS SUMMARY | 2024-11-05 18:45 | XMS_ITS | Encounter Summary ---
[place] [address] Care Team Providers Care Radarman Name Role Phone Patricia Garza APRN Primary Care Provider [phone] Encounter Details Date Type Department Care Team (Late st Contact Info) Description 05/12/2022 [place]phone [place] [phone] Radha Skinner, RN Social History Tobacco Use [...] states that she completed the test at [facility] and everythingwas fine, the cookie passed fine. He states they are unsure of next steps for her. Forwarded documented in this encounter Plan of Treatment Not on file documented as of this encounter Visit Diagnoses Not on filedocumented in this encounter Care Teams Radarman Relationship Specialty Start Date End Date Patricia Garza APRN [address] [place] [address] PCP - General Internal Medicine 04/02/20 documented as of this encounter
--- OUTSIDE RECORDS SUMMARY | 2024-11-05 18:45 | XMS_ITS | Encounter Summary ---
Author Organization [facility] Address [address] [place] [address] Care Team Providers Care Mold Puller Name Role Phone Unknown, Provider Primary Care Provider Unava ilable Encounter Details Date Type Department Care Team (Latest Contact Info) Description 01/11/2018 9:41 EDT - 01/11/2018 23:59 EDT Hospital Encounter [address] [address] Unknown, Provider, Discharge Disposition: Home or Self [...] Code Departure Means Destination Home or Self Intermediate documented in this encounter Plan of Treatment Not on file documented as of this encounter Visit Diagnoses Not on filedocumented in this encounter Care Teams Mold Puller Relationship Specialty Start Date End Date Unknown, Provider, PCP - General 01/11/18 documented as of this encounter
--- OUTSIDE RECORDS SUMMARY | 2024-11-05 18:45 | XMS_ITS | Encounter Summary ---
Author Organization [facility] Address [facility] [place] [address] Care Team Providers Care Beet Topper Name Role Phone Patricia Garza APRN Primary [...] (Sharla P 2021) Patricia Garza APRN [address] [place] [address] [facility] [address] [place] [address] Referral ID Status Reason Start Date Expiration Date V isits Requested Visits Authorized [id number] Closed Consult, Test & Treat PCP Updated and/or Approved 04/23/2023 10/23/2023 6 6 Encounter Details Date Type Department Care Team (Latest Contact Info) Description 02/26/2024 11:00 AM EDT TH Visit (TeleHealth) [place] [address] [facility] [place] [address] Change in bowel habits Social History Tobacco [...] No nocturnal awakening December she was at [facility] for 'demand ischemia'- her family feels it [...] Repair Paraesophageal Hernia Incl Fundoplasty W/O Mesh (93805) (N/A, 08/15/2021); Upper GI Endoscopy, Diagnostic (82696) (N/A, 08/15/2021); and Upper GIEndoscopy, Diagnostic (35787) (N/A, 10/24/2021). Family History: family history includes [...] gastroesophageal Junction.. HREM 04/2021 Impressions based on [place] Classification v4.0: The catheter tip did not [...] in 3 months MANDY Barcenas [facility] [place] [address] documented in this encounter Plan of Treatment Scheduled Referrals Name Type Priority Associated Diagnoses Order Schedule Referral to Gastroenterology Outpatient Referral Routine Routine general medical examination at a [facility] care facility Ordered: 05/04/2023 documented as of this encounter Visit Diagnoses Diagnosis Change in bowel habits Other symptoms involving digestive system documented in this encounter Care Teams Beet Topper Relationship Specialty Start Date End Date Patricia Garza APRN [address] [place] [address] PCP - General Internal Medicine 04/02/20 documented as of this encounter
--- OUTSIDE RECORDS SUMMARY | 2024-11-05 18:45 | XMS_ITS | Encounter Summary ---
Author Organization [facility] Address [facility] [place] [address] Care Team Providers Care Chin Strap Cutter Name Role Phone Patricia Garza APRN Primary Care Provider Reason for Visit * Consultation (Routine) - Closed Specialty Diagnoses / Procedures Referred By Amanuel de la paz Referred To Contact Dermatology Diagnoses consult on lesion left flank Procedures consult on lesion left flank Patricia Garza APRN [address] [place] [address] [facility] [address] [place] [address] Referral ID Status Reason Start Date Expiration Date Visits Re quested Visits Authorized [id number] Closed 05/25/2022 05/25/2023 1 1 Encounter Details Date Type Department Care Team (Late st Contact Info) Description 06/09/2022 1:40 PM EDT Office Visit Dermatology at [address] [place] [address] Rosa Elena Dorsey MD Neoplasm of uncertain behavior, unspecified Social History [...] Patient is referred to the clinic at [facility] of Patricia Garza for a spot of [...] N/A RTC: Pending Pathology []Note routed to [facility] []Recall placed in scheduling system []Appointment scheduled at checkout Scribe attestation: ALTAF Roca has performed the documentation for this encounter in the presence of and acting as a scribe for Rosa Elena Dorsey MD. I performed the above scribed service and agree with the accuracy of the documentation in this encounter. Reviewed and signed by: Rosa Elena Dorsey MD Dermatology [facility] Patient seen and evaluated with staff charger tester: Bright Mathias MD Department of Dermatology [facility] * Bright Mathias MD - 06/09/2022 1:40 [...] to follow Bright Mathias MD PATHOLOGY/CYTOLOGY O [facility] [place] [address] * Surgical Pathology Report (06/09/2022 1:41 PM EDT) Final Diagnosis [id number] ? Location: [facility] The signing pathologist has [...] Verified: ??06/13/2022 10:30 ??Dermatopathol ogist Performed at: ??-[facility] Dept. 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 CITATIONS 1) ??Laurie Novoa, Mariely De La Paz, Adonis Bean's Pathology of the Skin with Clinical Correlations. 4th ed. [place]: [employer]. 2012. pp. 0537. SPECIMEN(S) SUBMITTED A - left trunk, skin shave biopsy (1) CLINICAL INFORMATION 0.9 cm pink dome-shaped papule. Favor SCC SPECIMEN PROCESSING A - Labeled/Fixativ e: Patient demographics, formalin. Quantity/Size: ??Single, 1.3 x 0.9 cm. Tissue Description: Ovoid pink-white shave of a 1.8 x 1.0 x 0.7 cm wedge-shaped variegated xmfc-kzhtf-crd- brown firm, scaly, keratotic lesion. Sections/Proces sing: Inked, serially sectioned and entirely submitted in 3 cassettes as follows: ?A1: ??Tips ?A2-A3: ??Lesion ??shb 06/13/2022 10:30 AM EDT [facility] SPECIMEN FROM SKIN / Unknown 06/09/2022 1:41 PM EDT 06/09/2022 1:41 PM EDT Rosa Elena Dorsey MD PATHOLOGY/CYTOLOGY O [facility] [place] [address] documented in this encounter Visit Diagnoses Diagnosis Neoplasm of uncertain behavior, unspecified documented in this encounter Care Teams Chin Strap Cutter Relationship Specialty Start Date End Date Patricia Garza APRN [address] [place] [address] PCP - General Internal Medicine 04/02/20 documented as of this encounter
--- OUTSIDE RECORDS SUMMARY | 2024-11-05 18:45 | XMS_ITS | Clinical Summary ---
Author Organization [facility] Address [address] [place] [address] Care Team Providers Care Dealer Accounts Investigator Name Role Phone Unknown, Provider MD Primary Care Provider Unava ilable Social History [...] Health Maintenance Due Date Last Done Comments Fall Risk Screening 02/24/2004 RSV Immunization ( o r 60+ Years) (1 - 1-dose 75+ series) 2014 COVID-19 Vaccine ( season) 2024 Care Teams Dealer Accounts Investigator Relationship Specialty Start Date End Date Unknown, Provider, PCP - General 01/11/18
--- OUTSIDE RECORDS SUMMARY | 2024-11-05 18:46 | XMS_ITS | Encounter Summary ---
[place] [address] Care Team Providers Care Forest Nursery Supervisor Name Role Phone Patricia Garza APRN Primary Care Provider Reason for Visit * Auth/Cert Specialty Diagnoses / Procedures Referred By Amanuel centeno Referred To Contact Diagnoses Hematemesis Referral ID Status Reason Start Date Expiration Date Visits Re quested Visits Authorized [id number] 1 1 Encounter Details Date Type Department Care Team (Late st Contact Info) Description 10/24/2021 1:08 PM EST Anesthesia [place] [address] Socorro Dobbs MD [facility] [place] [address] Anesthesia Record Procedure Summary Procedure Name Responsible [...] cephalic vein (lateral side of arm), left; [id number] catheter system; Anatomical Landmarks; 22 gauge, 1 in length; rmt, dry cure worker-vas; distraction, tolerated well, appears comfortable; 10/25/21; 1338 [...] Procedure Summary Date: 10/24/21 Room / Location: [facility] / [facility] Anesthesia Start: 1308 Anesthesia Stop: 1344 Procedure: EGD, UPPER GI ENDOSCOPY (N/A Trunk) Diagnosis: (hematemesis) Surgeons: Houston Mehta MD Responsible Provider: Socorro Dobbs MD Anesthesia Type: general ASA Status: 3 All Anesthesia Providers: Anesthesiologist: Socorro Dobbs MD HOT OILER: Neha Pierce CRNA Vitals Value Taken Time BP 167/75 10/24/21 1430 Temp Pulse 65 10/24/21 1340 Resp 18 10/24/21 1430 SpO2 96 % 10/24/21 1439 Pain Level 0 10/24/21 1430 Vitals shown include unvalidated device data. Patient Location: PACU/[facility] Level of Consciousness: Awake and Alert Pain [...] 26.6) performed by Hal Marroquin MD at [facility] ??? PRO UPPER GI ENDOSCOPY, DIAGNOSTIC N/A 08/15/2021 EGD, UPPER GI ENDOSCOPY performed by Hal Marroquin MD at [facility] Social History Tobacco Use ??? [...] risks discussed with patient. Plan discussed with HOT OILER. Anesthesia Screening documented in this encounter Plan [...] mg documented in this encounter Care Teams Forest Nursery Supervisor Relationship Specialty Start Date End Date Patricia Garza, LAZARA [address] [facility] [place] [address] PCP - General Internal Medicine 04/02/20 documented as of this encounter
--- OUTSIDE RECORDS SUMMARY | 2024-11-05 18:46 | XMS_ITS | Encounter Summary ---
Author Organization [facility] [place] [place] [address] Care Team Providers Care Band Bias Machine Operator Name Role Phone Patricia Garza APRN Primary Care Provider Reason for Visit * Reason Comments Follow Up Surgery Encounter Details Date Type Department Care Team (Latest Contact Info) Description 08/30/2021 1:00 PM EDT Office [place] [address] Patrice Cárdenas MD [facility] [place] [address] Paraesophageal hernia Social History Tobacco Use Types [...] Outpatient Follow Up Note Patrice Cárdenas MD [place] [address] FAX: Preoperative diagnosis: Giant paraesophageal hernia ?? [...] gangrene documented in this encounter Care Teams Band Bias Machine Operator Relationship Specialty Start Date End Date Patricia Garza, DREDGE MASTER [address] [place] [address] PCP - General Internal Medicine 04/02/20 documented as of this encounter
--- OUTSIDE RECORDS SUMMARY | 2024-11-05 18:46 | XMS_ITS | Encounter Summary ---
[place] [address] Care Team Providers Care Industrial Equipment Wirer Name Role Phone Patricia Garza APRN Primary Care Provider [phone] Encounter Details Date Type Department Care Team (Late st Contact Info) Description 08/22/2021 Telephone [place] [phone] Livier Chaney, RN Social History Tobacco Use [...] much. Discussed the new antibiotic which theywill continuous pickling line pickler helper and start tomorrow. D/C doxycycline. They will call with any issues. documented in this encounter Plan of Treatment Not on file documented as of this encounter Visit Diagnoses Not on filedocumented in this encounter Care Teams Industrial Equipment Wirer Relationship Specialty Start Date End Date Patricia Garza APRN [address] [place] [address] PCP - General Internal Medicine 04/02/20 documented as of this encounter
--- OUTSIDE RECORDS SUMMARY | 2024-11-05 18:46 | XMS_ITS | Encounter Summary ---
[place] [address] Care Team Providers Care Patient Biller Name Role Phone Patricia Garza APRN Primary Care Provider [phone] Reason for Visit * Reason Comments Emesis * Auth/Cert Specialty Diagnoses / Procedures Referred By Contkimberley t Referred To Contact Diagnoses Hematemesis Referral ID Status Reason Start Date Expiration Date Visits Re quested Visits Authorized [id number] 1 1 Encounter Details Date Type Department Care Team (Late st Contact Info) Description 10/24/2021 1:00 PM EST - 10/24/2021 1:30 PM EST [place] [address] Houston Mehta MD [facility] [place] [address] EGD, UPPER GI ENDOSCOPY (WRVU 2.09) Social [...] Hospital Course: Linda Fuller was admitted to [facility] on 10/23/2021via the ED. She was [...] a nurse in the Thoracic Clinic at [phone]. After hours or on weekends oridays please call: [phone] and ask to speak to the Thoracic Surgeon operations consultant. Diet: You should follow a puree to soft solid diet as tolerated. If you are having trouble eating or keeping food down please call our office. Smoking: If you are a smoker, please avoid smoking. If you are a smoker who needs help quitting, please call the thoracic surgery clinic at [phone]. Follow up appointments: You should follow up [...] the day after the procedure, use an hrxb-npm-sfedlny spray to numb your throat. Sucking on [...] occurs, please contact your Doctor. Please call [phone] before 8pm Mon-Fri with problems, questions or concerns. If you call after 8pm or on weekends, call the Hospital at [phone] and ask to speak to the Bulk Filler operations consultant and the line operator will contact that person for you. When should you call for help? Call [phone] anytime you think you may need emergency [...] problems. Where can you learn more? [facility] View your After Visit Summary and more online at [email or web address] If you would like to provide feedback about your hospital experience, please call the Office of Patient and Family Relations at . If you have received this After Visit Summary in error, please immediately return it in person to the department, or notify the [facility] Privacy Office by calling toll free at between the hours of 8AM and 5PM to arrange for our retrieval of the documents at no cost to you. Content Version: 12.2 ?? [id number] [employer]em[employer]. Care instructions adapted under license by [facility]. If you have questions about a medical condition or this instruction, always ask your healthcare professional. [employer] disclaims any warranty or liability for your use of this information. Learning About Pureeing Foods What are pureed foods? Puree (say Sharon) is a way to change the texture of solid food so that it is smooth with no lumps and has a texture like pudding. You can puree food in a technical documentation specialist or food broker. Pureed foods are important if you have [...] smaller pieces, and place them in a technical documentation specialist or food broker. You may need to add liquid such as juice or broth to get the right thickness. Adding food or liquid slowly into the technical documentation specialist or food broker will help you get to the right [...] Where can you learn more? Scan the [employer] code or Visit our health information library at [email or web address] [email or web address]/Ingk [email or web address]/ You can also view health information on Cof[employer], your personal patient account. Log in or sign uptoday. Enter D793 in the search box to learn more about Learning About Pureeing Foods. Current as of: July 06, 2021?Content Version: 13.1 ?? Typemock. Care instructions adapted under license by [facility]. If you have questions about a medical condition or this instruction, always ask your healthcare professional. [employer] disclaims any warranty or liability for your [...] one of these types of foods: ? Baiy-gt-mogs foods. These are foods that are soft [...] Where can you learn more? Scan the [employer] code or Visit our CuPcAkE & other things you bake information library at [email or web address]://www.[email or web address]/Ingk Labs/ You can also view health information on [employer], your personal patient account. Log in or sign uptoday. Enter R741 in the search box to learn more about Learning About the Diet for Swallowing Problems. Current as of: April 28, 2021?Content Version: 13.1 ?? Typemock. Care instructions adapted under license by [facility]. If you have questions about a medical condition or this instruction, always ask your healthcare professional. [employer] disclaims any warranty or liability for your use of this information. Provider Contact Information: Primary Care Provider: Patricia Garza APRN [phone] Discharge References/Attachments: Discharge References/Attachments None For questions [...] the day after the procedure, use an ptpx-hlq-lphqoyx spray to numb your throat. Sucking on [...] occurs, please contact your Doctor. Please call [phone] before 8pm Mon-Fri with problems, questions or concerns. If you call after 8pm or on weekends, call the Hospital at [phone] and ask to speak to the Bulk Filler operations consultant and the line operator will contact that person for you. When should you call for help? Call [phone] anytime you think you may need emergency [...] problems. Where can you learn more? [facility] View your After Visit Summary and more online at [email or web address] If you would like to provide feedback about your hospital experience, please call the Office of Patient and Family Relations at . If you have received this After Visit Summary in error, please immediately return it in person to the department, or notify the [facility] Privacy Office by calling toll free at between the hours of 8AM and 5PM to arrange for our retrieval of the documents at no cost to you. Content Version: 12.2 ?? [id number] [employer]. Care instructions adapted under license by [employer]. If you have questions about a medical condition or this instruction, always ask your healthcare professional. [employer], [facility] disclaims any warranty or liability for your use of this information. Learning About Pureeing Foods What are pureed foods? Puree (say Sharon) is a way to change the texture of solid food so that it is smooth with no lumps and has a texture like pudding. You can puree food in a technical documentation specialist or food broker. Pureed foods are important if you have [...] smaller pieces, and place them in a technical documentation specialist or food broker. You may need to add liquid such as juice or broth to get the right thickness. Adding food or liquid slowly into the technical documentation specialist or food broker will help you get to the right [...] Where can you learn more? Scan the [employer] code or Visit our health information library at [email or web address]://www.[employer]/dh/ You can also view health information on [employer], your personal patient account. Log in or sign uptoday. Enter D793 in the search box to learn more about Learning About Pureeing Foods. Current as of: July 06, 2021?Content Version: 13.1 ?? Typemock. Care instructions adapted under license by [facility]. If you have questions about a medical condition or this instruction, always ask your healthcare professional. [employer] disclaims any warranty or liability for your use of this information. Learning About the Diet for Swallowing Problems What are swallowing problems? Difficulty swallowing is also called dysphagia (say hac-MUX-yqb-uh). It is most often a sign of [...] one of these types of foods: ? Gvrk-sd-djcj foods. These are foods that are soft [...] Where can you learn more? Scan the [employer] code or Visit our health information library at [email or web address]/Ingk Labs/ You can also view health information on [employer], your personal patient account. Log in or sign uptoday. Enter R741 in the search box to learn more about Learning About the Diet for Swallowing Problems. Current as of: April 28, 2021?Content Version: 13.1 ?? [employer]. Care instructions adapted under license by [facility]. If you have questions about a medical condition or this instruction, always ask your healthcare professional. [employer], [employer] disclaims any warranty or liability for your use of this information. * Patient Instructions* Jacqueline Paul MD - 10/25/2021 10:14 AM EST Call if you have any questions. During normal business hours, Sunday- Sunday 8:00 a.m.-5:00 p.m., please call to speak to a nurse in the Thoracic Clinic at [phone]. After hours or on weekends orholidays please call: [phone] and ask to speak to the Thoracic Surgeon operations consultant. Diet: You should follow a puree to soft solid diet as tolerated. If you are having trouble eating or keeping food down please call our office. Smoking: If you are a smoker, please avoid smoking. If you are a smoker who needs help quitting, please call the thoracic surgery clinic at [phone]. Follow up appointments: You should follow up [...] completed barium swallow test and evaluation by PLODDING OPERATOR. Patient A&O x4. VSS on RA, [...] Paul MD - 10/24/2021 11:27 AM EST [facility] Department of Thoracic Surgery Progress Note Patient Name: Linda Fuller Patient : 1940 Patient Patient Location: [address] [place] [address] Attending Surgeon: PATRICE CÁRDENAS ID: Linda Fuller [...] 26.6) performed by Patrice Cárdenas MD at [facility] MAIN OR ??? PRO UPPER GI ENDOSCOPY, DIAGNOSTIC N/A 08/15/2021 EGD, UPPER GI ENDOSCOPY performed by Patrice Cárdenas MD at [facility] MAIN OR Vitals: Temp: [36.5 ??C (97.7 ??F)-36.7 ??C (98.1 ??F)] Heart Rate: [61-64] Resp: [16-22] BP: (118-184)/(45-102) SpO2: [96 %-99 %] Heart Rate from SpO2: [53 bpm-60 bpm] Wt & BMI By Encounter Date ED to Hosp-Admission (Current) from 10/23/2021 in 4 [facility] Office Visit from 08/30/2021 in Thoracic Surgery at [facility] Weight 58.3 kg (128 lb 9.6 oz) [...] QTC Calculated (Bezet) 491 ms Calculated P [place] 96 degrees Calculated R [place] 27 degrees Calculated T [place] 51 degrees INTERPRETATION Sinus rhythm with 1st [...] Value Ref Range T&S only valid at [facility] Hosp COVID-19 PCR Specimen: Nasopharyngeal Swab Symptoms->Surveillance Result Value Ref Range SARS-CoV-2 RNA PCR Not Detected Not Detected SARS-CoV-2 Source BRIMMING MACHINE OPERATOR Swab Hemogram Result Value Ref [...] Paul MD 10/24/2021 Thoracic Surgery Service Pager [phone] documented in this encounter H&P Notes * [...] Paul MD - 10/23/2021 4:00 PM EST [facility] Department of Thoracic Surgery H&P Patient [...] W/FUNDOPLASTY,W/O MESH (WRVU 26.6) performed by Patrice Crádenas MD at [facility] MAIN OR ??? PRO UPPER GI ENDOSCOPY, DIAGNOSTIC N/A 08/15/2021 EGD, UPPER GI ENDOSCOPY performed by Patrice Cárdenas MD at [facility] MAIN OR Vitals: Temp: [36.6 ??C (97.9 ??F)] Heart Rate: [62-64] Resp: [16-18] BP: (150-171)/(45-78) SpO2: [98 %] Heart Rate from SpO2: -- Wt & BMI By Encounter Date ED from 10/23/2021 in Emergency Department [facility] Office Visit from 08/30/2021 in Thoracic Surgery at [facility] Weight 59 kg (130 lb) 1 10/23/2021 [...] QTC Calculated (Bezet) 491 ms Calculated P [place] 96 degrees Calculated R [place] 27 degrees Calculated T [place] 51 degrees INTERPRETATION Sinus rhythm with 1st [...] Value Ref Range T&S only valid at [facility] Hosp Diagnostics: EKG sinus rhythm with first [...] Paul MD 10/23/2021 Thoracic Surgery Service Pager [phone] documented in this encounter ED Notes * [...] Value Ref Range T&S only valid at [facility] Hosp COVID-19 PCR Specimen: Nasopharyngeal Swab Symptoms->Surveillance Result Value Ref Range SARS-CoV-2 RNA PCR Not Detected Not Detected SARS-CoV-2 Source BRIMMING MACHINE OPERATOR Swab EKG NSR without overlying [...] Notes * Initial Assessments - Shirley Schaefer, PLODDING OPERATOR - 10/25/2021 11:41 AM EST Speech [...] 10/25/21 (results pending, normal per RN report) PLODDING OPERATOR consulted for a bedside swallow evaluation. [...] order; OK for a regular diet from PLODDING OPERATOR standpoint. Diagnosis: Normal oral manipulation of [...] ?? Alternate liquids and solids No further PLODDING OPERATOR intervention is warranted while hospitalized. Do not anticipate need from PLODDING OPERATOR services in discharge location. Plan: Therapy Frequency (PLODDING OPERATOR Eval): evaluation only Patient / family are in agreement with treatment plan. Total Minutes (Speech Language Pathology): 20 Thank you for this consult with this patient. Please feel free to page me with any questions or concerns. Shirley Schaefer MS, [facility]-PLODDING OPERATOR Pager: [phone] Speech-Language Pathologist Inpatient Rehabilitation Medicine * Care [...] Insurance: N/A Prescription Coverage: YES [place] [id number] This plan was formulated with input from patient and team. All are in agreement with plan. Pt admitted as OBSVO. R. (Reji) PAULETTE Vidal RN/CM - Cellphone: [phone] Pager: [phone] Covering Service RN/CM * Initial Assessments - [...] Component Value Date COVID19 Detected (A) 09/04/2020 [id number] Not Detected 10/23/2021 Present on Admission: ??? Hematemesis Hospitalizations Within the Past 30 Days: no previous admission in last 30 days Patient receiving hospital care under Observation status. Admission order reviewed. Primary Insurance on file: MEDICARE Secondary Insurance on file: n/a Primary care provider on file: Patricia Garza APRN [phone] Pharmacy: [facility] [address] [place] [address] Advance Care Planning: History <no information> -Advanced [...] chair (4WW) [address] [facility] [address] Social & Family Supports: Extended Emergency Contact Information Primary Emergency Contact: SANJAY CEBALLOS Address: [facility] [place] [address] [facility] Relation: Child Secondary Emergency Contact: Narcisa Palumbo Address: [address] [place], [place] [address] [place] [address] Mobile Relation: Child Current Care Provided by: [...] via car when medically ready. Registered Nurse High School Sports Coach / Library Circulation Department Chief will continue to follow patient???s progress and remain available if situation changes for coordination of care, psychosocial support and/or discharge planning. RN/CM notes: Pt had used [facility] (referral 07/2021). RN/CM called and patient was discharged from all home care services on 10/05 by meeting goals. Office of Care Management Mayela Vidal RN RN (Jonas)/CM - Cellphone: [phone] Pager: [phone] Covering Service RN/CM * Plan of Care [...] M.D. Fellow in Gastroenterology and Hepatology Pager #[phone] 10/23/2021 Associated attestation - Houston Mehta MD [...] documented. Houston Mehta MD Section of Gastroenterology [facility] documented in this encounter Plan of [...] 7:25 PM EST Upper GI Endoscopy, Diagnostic (64518) 10/24/2021 1:09 PM EST hematemesis UPPER GI ENDOSCOPY Routine 10/24/2021 11 :55 AM EST HC HEMOGRAM STAT 10/24/2021 4:07 AM EST HC PHOSPHORUS, SERUM STAT 10/24/2021 4:07 AM EST HC MAGNESIUM, SERUM STAT 10/24/2021 4 :07 AM EST BASIC METABOLIC PANEL STAT 10/24/2021 4:07 AM EST RAPID COVID-19 PCR ([facility]) STAT 10/23/2021 3:52 PM EST TYPE AND [...] who have questions please contact the health floor care specialist that requested your imaging first. ? Electronically signed by: Madiha Crawford MD, [facility] ([phone]), at 10/25/2021 11:55 AM Narrative 10/25/2021 11:55 [...] and chest abdomen pelvis CT 01/10/2020 FINDINGS: Engineering Programmer imaging: Cholecystectomy clips project over the RIGHT [...] 04/26/2021, and chest abdomen pelvisCT 01/10/2020 FINDINGS: Engineering Programmer imaging: Cholecystectomy clips project over the RIGHT [...] patients who have questions please contactthe health floor care specialist that requested your imaging first. Electronically signed by: Madiha Crawford MD, [facility]([phone]), at 10/25/2021 11:55 AM Patrice Cárdenas MD [...] CHEMISTRY ORDERABLES [facility] [place] [address] * (ABNORMAL) Phosphorus (10/25/2021 5:45 AM EST) Phosphorus 2.1(L) 2.5 - 4.5 mg/dL [facility] Blood 10/25/2021 5:45 AM EST 10/25/2021 5:59 AM EST Narrative Resulting Agency Comment Spec In Lab Patrice Cárdenas MD CHEMISTRY ORDERABLES [facility] [place] [address] * Magnesium (10/25/2021 5:45 AM EST) Pathologist [facility] Magnesium 0.87 0.69 - 1.07 mmol/L [facility] Blood 10/25/2021 5:45 AM EST 10/25/2021 5:59 AM EST Narrative Resulting Agency Comment Spec In Lab Patrice Cárdenas MD CHEMISTRY ORDERABLES Performing Organization Address [facility] Co de Phone Number [facility] [place] [address] * Hemogram (10/25/2021 5:45 AM EST) [facility] White Blood Cell 6.4 4.0 - 9.5 x10(3)/[facility] LABORATORY Red Blood Cell 4.26 4.00 - 5.21 x10(6)/[facility] LABORATORY Hemoglobin 12.9 11.7 - 15.5 g/dL [facility] Hematocrit 39.7 35.7 - 45.8 % [facility] Mean Cell Volume 93.2 82.6 - 94.4 [facility] LABORATORY Mean Cell Hemoglobin 30.3 27.1 - 32.0 pg [facility] Mean Cell Hemoglobin Concentration 32.5 31.7 - 35.0 g/dL [facility] Platelet 281 145 - 357 x10(3)/[facility] LABORATORY RDW Standard Deviation 44.8 37.0 - 46.0 [facility] LABORATORY RDW coefficient of variation 13.1 11.5 - 14.1 % [facility] Mean Platelet Volume 9.8 7.6 - 12.9 [facility] LABORATORY NRBC% auto 0.0 % [facility] NRBC Absolute 0.000 0.000 - 0.000 x10(3)/[facility] LABORATORY Blood 10/25/2021 5:45 AM EST 10/25/2021 5:59 AM EST Narrative Resulting Agency Comment Spec In Lab Patrice Cárdenas MD HEMATOLOGY ORDERABLE S Performing Organization Address City/[facility]/ZIP Co de Phone Number [facility] [place] [address] * Green Tube HOLD (10/24/2021 7:25 PM EST) Pathologist [facility] Green Hold Sample in lab. [facility] Blood Venous Draw / Unknown 10/24/2021 7:25 PM EST 10/24/2021 7:32 PM EST Jacqueline Paul MD CHEMISTRY ORDERABLES Performing Organization Address City/[facility] Co de Phone Number [facility] [place] [address] * (ABNORMAL) Hemogram (10/24/2021 7:25 PM EST) [facility] White Blood Cell 5.6 4.0 - 9.5 [...] RDW Standard Deviation 45.0 37.0 - 46.0 [facility] LABORATORY RDW coefficient of variation 13.2 11.5 - 14.1 % [facility] Mean Platelet Volume 9.8 7.6 - 12.9 fL [facility] NRBC% auto 0.0 % [facility] NRBC Absolute 0.000 0.000 - 0.000 x10(3)/mc L [facility] Blood 10/24/2021 7:25 PM EST 10/24/2021 7:31 PM EST Narrative Resulting Agency Comment Spec In Lab Patrice Cárdenas MD HEMATOLOGY ORDERABLE S [facility] [place] [address] * UPPER GI ENDOSCOPY (10/24/2021 11:55 AM EST) UPPER GI ENDOSCOPY [facility] Endoscopy Procedure Date: 10/24/2021 11:55 AM ? Patient Name: Linda Fuller ? Date of : 1940 ? Age: 81 ? Order #: [id number] ? Instrument Name: [id number] ? Procedure: ? Upper GI endoscopy Indications: [...] physician, the nurse, the ? anesthesiologist, the oil and gas field technician and ? the surveying or spatial science technician in the procedure room. ? Mental [...] Procedure Code(s): ?? --- Professional --- ? 33481, Esophagogastroduod enoscopy, ? flexible, transoral; diagnostic, ? including collection of specimen(s) ? by brushing or washing, when ? performed (separate procedure) CPT copyright 2019 [employer]. All rights reserved. The codes documented in this report are preliminary and upon junior high school principal review may be revised to meet current compliance requirements. Attending Participation: ? I was present and participated during the entire ? procedure, including non-pimentel portions. ? _ Houston Mehta, 10/24/2021 1:36:21 PM Number of Addenda: 0 Note Initiated On: 10/24/2021 11:55 AM PROVATION 10/24/2021 11:5 5 AM EST Patricia Garza CORRECTIONAL FACILITY NURSE GENERAL SURGICAL ORD ERABLES PROVATION * (ABNORMAL) [...] CHEMISTRY ORDERABLES [facility] [place] [address] * (ABNORMAL) Phosphorus (10/24/2021 4:07 AM EST) Phosphorus 2.4(L) 2.5 - 4.5 mg/dL [facility] Blood 10/24/2021 4:07 AM EST 10/24/2021 4:13 AM EST Narrative Resulting Agency Comment Spec In Lab Patrice Cárdenas MD CHEMISTRY ORDERABLES Performing Organization Address [facility]/ZIP Co de Phone Number [facility] [place] [address] * (ABNORMAL) Magnesium (10/24/2021 4:07 AM EST) Pathologist [facility] Magnesium 0.65(L) 0.69 - 1.07 mmol/L [facility] Blood 10/24/2021 4:07 AM EST 10/24/2021 4:13 AM EST Narrative Resulting Agency Comment Spec In Lab Patrice Cárdenas MD CHEMISTRY ORDERABLES Performing Organization Address City/[facility]/ZIP Co de Phone Number [facility] [place] [address] * (ABNORMAL) Hemogram (10/24/2021 4:07 AM EST) Pathologist [facility] White Blood Cell 5.5 4.0 - 9.5 [...] [facility] NRBC% auto 0.0 % [facility] NRBC Absolute 0.000 0.000 - 0.000 x10(3)/mc L [facility] Blood 10/24/2021 4:07 AM EST 10/24/2021 4:13 AM EST Narrative Resulting Agency Comment Spec In Lab Patrice Cárdenas MD HEMATOLOGY ORDERABLE S Performing Organization Address City/State/[facility] Co de Phone Number [facility] [place] [address] * COVID-19 PCR (10/23/2021 3:52 PM EST) [...] using the Simplexa COVID-19 Direct Assay by [employer] as authorized by the FDA issued Emergency [...] Department of Pathology and Laboratory Medicine at [facility], certified under the Clinical Laboratory [...] fact sheets at the following FDA website: https://www.fda.gov/medical-devices/ntaregyebzz-gxkowdk-0015-ualbt-45-ykzuaesoy- use-a tijxexzjsrcop-huinzrx-cwkjane/tbnwf-paaqlpewyzc-xfem SARS-CoV-2 Source BRIMMING MACHINE OPERATOR Swab [facility] Nasopharyngeal Swab 10/23/20 3:52 PM EST 10/23/2021 4:32 PM EST Comment:Symptoms->Surveillan ce Narrative Resulting Agency Comment Spec In Lab Fiona Malave MD MICROBIOLOGY - GENER AL ORDERABLES [facility] [place] [address] * Type and Screen Validity (10/23/2021 1:20 PM EST) T&S only valid at [facility] LABORATORY Comment:This Type and Screen result is only valid at the [facility] Blood 10/23/2021 1:20 PM EST 10/23/2021 1:37 PM EST Narrative Resulting Agency Comment Spec In Lab Sanjay [facility]AL[facility] ORDER VINICIUS [facility] [place] [address] * ABORH Recheck Status (10/23/2021 1:20 PM EST) ABORH Recheck Order Order Placed [facility] ABORH Type Recheck Complete [facility] Blood 10/23/2021 1:20 PM EST 10/23/2021 1:37 PM EST Narrative Resulting Agency Comment Spec In Lab Sanjay [facility] ORDER VINICIUS Performing Organization Address City/[facility]/ZIP Co de Phone Number [facility] [place] [address] * Differential, Automated (10/23/2021 1:20 PM EST) Neutrophil % 67.6 % [facility] Neutrophil Absolute 4.62 1.70 - 6.10 x10(3)/[facility] LABORATORY Lymph % 18.6 % [facility] Lymphocytes Abs 1.3 0.9 - 3.2 x10(3)/[facility] LABORATORY Monocyte % 9.7 % [facility] Monocyte Abs 0.7 0.3 - 0.9 x10(3)/[facility] LABORATORY Eos % 2.6 % [facility] Eosinophils Abs 0.2 0.0 - 0.4 x10(3)/[facility] LABORATORY Basophil % 0.9 % [facility] Baso Absolute 0.1 0.0 - 0.1 x10(3)/[facility] LABORATORY Immature Gran % 0.60 [...] ORDERABLE S [facility] [place] [address] * (ABNORMAL) Hemogram (10/23/2021 1:20 PM EST) [facility] NRBC% auto 0.0 % [facility] NRBC Absolute 0.000 0.000 - 0.000 x10(3)/mc L [facility] Blood 10/23/2021 1:20 PM EST 10/23/2021 1:37 PM EST Narrative Resulting Agency Comment Spec In Lab Sanjay Parks MANDY HEMATOLOGY ORDERABLE S Performing Organization Address [facility] Co de Phone Number [facility] [place] [address] * Antibody screen (10/23/2021 1:20 PM EST) Ab Screen Interp Negative [facility] Expires at [id number] on: 10/26/2021 [facility] Blood 10/23/2021 1:20 PM EST 10/23/2021 1:37 PM EST Narrative Resulting Agency Comment Spec In Lab Sanjay Parks [facility] LAB ORDER VINICIUS Performing Organization Address City/[facility]/ZIP Co de Phone Number [facility] [place] [address] * ABO/Rh Typing (10/23/2021 1:20 PM EST) ABORH Type A Pos [facility] Blood 10/23/2021 1:20 PM EST 10/23/2021 1:37 PM EST Narrative Resulting Agency Comment Spec In Lab Sanjay [facility] LAB ORDER VINICIUS Performing Organization Address [facility] Co de Phone Number [facility] [place] [address] * APTT (10/23/2021 1:20 PM EST) Partial [...] MD HEMATOLOGY ORDERABLE S Performing Organization Address [facility] de Phone Number [facility] [place] [address] * (ABNORMAL) Prothrombin Time (10/23/2021 1:20 PM [...] MD HEMATOLOGY ORDERABLE S Performing Organization Address [facility] de Phone Number [facility] [place] [address] * Troponin (10/23/2021 1:20 PM EST) Troponin-T [...] meets the diagnosis for a myocardial infarction (NV). Detection of a rise and/or fall of cTnT, with at least one value greater than the 99th percentile (> or = 0.01) and with at least one of the following ?? Symptoms of ischemia ?? New or presumed new significant KT-auaimnc-T wave (ST-T) changes or new left bundle [...] additional sample may be indicated. Reference: Third Kindred Definition of Myocardial Infarction. Journal of the [place] [employer] 2012;60:1581-98 Blood 10/23/2021 1:20 PM EST 10/23/2021 1:37 PM EST Narrative Resulting Agency Comment Spec In Lab Fiona Malave MD CHEMISTRY ORDERABLES [facility] [place] [address] * (ABNORMAL) Comprehensive metabolic panel (non-fasting) (10/23/2021 [...] Malave MD CHEMISTRY ORDERABLES Performing Organization Address City/State/[facility] Co de Phone Number [facility] [place] [address] * EKG 12 Lead (10/23/2021 1:14 PM EST) Ventricular rate 61 BPM MUSE SYSTEM Atrial Rate 61 BPM MUSE SYSTEM P-R Interval 210 ms MUSE SYSTEM QRS Duration 90 ms MUSE SYSTEM Q-T Interval 488 ms MUSE SYSTEM QTC Calculated (Bezet) 491 ms MUSE SYSTEM Calculated P [place] 96 degrees MUSE SYSTEM Calculated R [place] 27 degrees MUSE SYSTEM Calculated T [place] 51 degrees MUSE SYSTEM INTERPRETATION Sinus rhythm with 1st degree A-V block Prolonged QT Abnormal ECG When compared with ECG of 17-AUG-2021 07:42, Sinus rhythm has replaced Atrial fibrillation Vent. rate has decreased BY ??70 BPM Nonspecific T wave abnormality no longer evident in Inferior leads Nonspecific T wave abnormality no longer evident in Lateral leads Confirmed by MD Cook Danette ([id number]) on 10/24/2021 3:32:33 PM MUSE SYSTEM 10/23/2021 [...] 0837 (Given - Provider: Pauline Vickers RN)1230 ([facility] Hold - Provider: Admin Adt - Reason: Transfer to a Procedural area)1508 ([facility] Unhold - Provider: Admin Adt)2010 (Given - Provider: Silverio Claire RN) 0940 (Given - Provider: Prabha Stephens, PAULETTE) Continuous Medication Order 10/23/2021 10/24/2021 10/25/2021 lactated ringers infusion 75 mL/hr, Intravenous, CONTINUOUS, Starting on Sun10/23/21 at 1623, Until Sun10/25/21 at 1808 1841 (New Bag - Provider: Sandi Rebolledo RN) 0653 (New Bag - Provider: Maria Elena Live RN)1230 ([facility] Hold - Provider: [...] pain medications are indicated. , Routine 1230 ([facility] Hold - Provider: Admin Adt - Reason: Transfer to a Procedural area)1508 ([facility] Unhold - Provider: Admin Adt) barium sulfate (E-Z Disk) tablet 0-700 mg (COMPLETED) 0-700 mg, Oral, ONCE PRN, 1 dose, Starting on Sun10/25/21 at 0916, Until Sun10/25/21 at 0916, Per Protocol, Radiology Contrast, Routine 915 (Given - Provid er: Mario Francisco - Comment: [id number]:10/2021) barium sulfate (E-Z-HD) 98% oral liquid 0-120 mL (COMPLETED) 0-120 mL, Oral, ONCE PRN, 1 dose, Starting on Sun10/25/21 at 0916, Until Sun10/25/21 at 0917, Per Protocol, Radiology Contrast, Routine 09 (Given - Provid er: Mario Francisco - Comment: [id number]:08/2024 ) barium sulfate (Ezpaque) 60% (w/v) oral liquid 0-710 mL (COMPLETED) 0-710 mL, Oral, ONCE PRN, 1 dose, Starting on Sun10/25/21 at 0916, Until Sun10/25/21 at 0918, Per Protocol, Radiology Contrast, Routine 09 (Given - Provid er: Mario Francisco - Comment: [id number]: 12/2022) ipratropium-albuteroL (Duoneb) 0.5 mg-3 mg(2.5 mg [...] Adt) documented in this encounter Care Teams Patient Biller Relationship Specialty Start Date End Date Patricia Garza APRN [address] [place] [address] PCP - General Internal Medicine 04/02/20 documented as of this encounter
--- OUTSIDE RECORDS SUMMARY | 2024-11-05 18:46 | XMS_ITS | Encounter Summary ---
Author Organization [facility] Address [facility] [place] [address] Care Team Providers Care Car Painter Name Role Phone Patricia Garza APRN Primary Care Provider [phone] Encounter Details Date Type Department Care Team (Latest Contact Info) Description 08/30/2021 12:30 PM EDT - 08/30/2021 11:59 PM EDT Hospital Encounter XRay at [address] [place] [id number] Hiatal hernia Discharge Disposition: Home Social History [...] who have questions please contact the health cna caregiver that requested your imaging first. ? Narrative [...] patients who have questions please contactthe health cna caregiver that requested your imaging first. Hal Marroquin MD IMG DX ORDERABLES documented in this encounter Visit Diagnoses Diagnosis Hiatal hernia Diaphragmatic hernia without mention of obstruction or gangrene documented in this encounter Care Teams Car Painter Relationship Specialty Start Date End Date Patricia Garza, LAZARA [address] [facility] [place] [address] PCP - General Internal Medicine 04/02/20 documented as of this encounter
--- OUTSIDE RECORDS SUMMARY | 2024-11-05 18:46 | XMS_ITS | Encounter Summary ---
Author Organization [facility] [place] [address] Care Team Providers Care Biomedical Engineering Technician Name Role Phone Patricia Garza APRN Primary Care Provider [phone] Reason for Referral * Consultation (Routine) - Closed Specialty Diagnoses / Procedures Referred By Amanuel centeno Referred To Contact Gastroenterology Diagnoses Hematemesis Regurgitation of food Hematemesis Regurgitation of food Jacqueline Paul MD [facility] [place] [address] [facility] [address] [place] [address] Referral ID Status Reason Start Date Expiration Date V isits Requested Visits Authorized [id number] Closed Specialty Service Requested 10/25/2021 10/25/2022 1 1 Reason for Visit * Reason Comments Emesis * Auth/Cert Specialty Diagnoses / Procedures Referred By Amanuel centeno Referred To Contact Diagnoses Hematemesis Referral ID Status Reason Start Date Expiration Date Visits Re quested Visits Authorized [id number] 1 1 Encounter Details Date Type Department Care Team (Late st Contact Info) Description 10/23/2021 11:29 AM EST - 10/25/2021 4:07 PM EST Emergency 4 [facility] [place] [address] Patrice Cárdenas MD [facility] [place] [address] Hematemesis (Primary Dx); History of CVA (cerebrovascular [...] Hospital Course: Linda Fuller was admitted to [facility] on 10/23/2021via the ED. She was [...] a nurse in the Thoracic Clinic at [phone]. After hours or on weekends orholidays please call: [phone] and ask to speak to the Thoracic Surgeon telephone recorder. Diet: You should follow a puree to soft solid diet as tolerated. If you are having trouble eating or keeping food down please call our office. Smoking: If you are a smoker, please avoid smoking. If you are a smoker who needs help quitting, please call the thoracic surgery clinic at [phone]. Follow up appointments: You should follow up [...] the day after the procedure, use an zalt-las-jtqkehv spray to numb your throat. Sucking on [...] occurs, please contact your Doctor. Please call [phone] before 8pm Mon-Fri with problems, questions or concerns. If you call after 8pm or on weekends, call the Hospital at [phone] and ask to speak to the Art Appraiser telephone recorder and the compotype operator will contact that person for you. When should you call for help? Call [phone] anytime you think you may need emergency [...] problems. Where can you learn more? [facility] View your After Visit Summary and more online at [email or web address] If you would like to provide feedback about your hospital experience, please call the Office of Patient and Family Relations at . If you have received this After Visit Summary in error, please immediately return it in person to the department, or notify the [facility] Privacy Office by calling toll free at between the hours of 8AM and 5PM to arrange for our retrieval of the documents at no cost to you. Content Version: 12.2 ?? 2965-4515 [employer]. Care instructions adapted under license by [facility]. If you have questions about a medical condition or this instruction, always ask your healthcare professional. [employer] disclaims any warranty or liability for your use of this information. Learning About Pureeing Foods What are pureed foods? Puree (say Sharon) is a way to change the texture of solid food so that it is smooth with no lumps and has a texture like pudding. You can puree food in a ocean lifeguard or food preparation supervisor. Pureed foods are important if you have [...] smaller pieces, and place them in a ocean lifeguard or food preparation supervisor. You may need to add liquid such as juice or broth to get the right thickness. Adding food or liquid slowly into the ocean lifeguard or food preparation supervisor will help you get to the right [...] Where can you learn more? Scan the Akippa code or Visit our health information library at [email or web address].MetaPack.net/dh/ You can also view health information on Hiddenbedorg, your personal patient account. Log in or sign uptoday. Enter D793 in the search box to learn more about Learning About Pureeing Foods. Current as of: July 06, 2021?Content Version: 13.1 ?? [employer]. Care instructions adapted under license by [facility]. If you have questions about a medical condition or this instruction, always ask your healthcare professional. [employer] disclaims any warranty or liability for your use of this information. Learning About the Diet for Swallowing Problems What are swallowing problems? Difficulty swallowing is also called dysphagia (say kjd-AGS-teh-uh). It is most often a sign of [...] one of these types of foods: ? Yrda-mk-agzy foods. These are foods that are soft [...] Where can you learn more? Scan the Akippa code or Visit our [place] Emergency Registry information library at https://www.MetaPack.net/dh/ You can also view health information on D1G, your personal patient account. Log in or sign uptoday. Enter R741 in the search box to learn more about Learning About the Diet for Swallowing Problems. Current as of: April 28, 2021?Content Version: 13.1 ?? [facility]. Care instructions adapted under license by [facility]. If you have questions about a medical condition or this instruction, always ask your healthcare professional. [employer] disclaims any warranty or liability for your use of this information. Provider Contact Information: Primary Care Provider: Patricia Garza APRN [phone] Discharge References/Attachments: Discharge References/Attachments None For questions [...] the day after the procedure, use an udrz-ilo-phqnijz spray to numb your throat. Sucking on [...] occurs, please contact your Doctor. Please call [phone] before 8pm Mon-Fri with problems, questions or concerns. If you call after 8pm or on weekends, call the Hospital at [phone] and ask to speak to the Art Appraiser telephone recorder and the compotype operator will contact that person for you. When should you call for help? Call [phone] anytime you think you may need emergency [...] problems. Where can you learn more? [facility] View your After Visit Summary and more online at [email or web address] If you would like to provide feedback about your hospital experience, please call the Office of Patient and Family Relations at . If you have received this After Visit Summary in error, please immediately return it in person to the department, or notify the [facility] Privacy Office by calling toll free at between the hours of 8AM and 5PM to arrange for our retrieval of the documents at no cost to you. Content Version: 12.2 ?? 6819-5556 [employer]. Care instructions adapted under license by [facility]. If you have questions about a medical condition or this instruction, always ask your healthcare professional. [employer] disclaims any warranty or liability for your use of this information. Learning About Pureeing Foods What are pureed foods? Puree (say Sharon) is a way to change the texture of solid food so that it is smooth with no lumps and has a texture like pudding. You can puree food in a ocean lifeguard or food preparation supervisor. Pureed foods are important if you have [...] smaller pieces, and place them in a ocean lifeguard or food preparation supervisor. You may need to add liquid such as juice or broth to get the right thickness. Adding food or liquid slowly into the ocean lifeguard or food preparation supervisor will help you get to the right [...] Where can you learn more? Scan the Markerly or Visit our [place] Emergency Registry information library at https://www.[employer]/ You can also view health information on D1G, your personal patient account. Log in or sign uptoday. Enter D793 in the search box to learn more about Learning About Pureeing Foods. Current as of: July 06, 2021?Content Version: 13.1 ?? [employer]. Care instructions adapted under license by [facility]. If you have questions about a medical condition or this instruction, always ask your healthcare professional. [employer] disclaims any warranty or liability for your use of this information. Learning About the Diet for Swallowing Problems What are swallowing problems? Difficulty swallowing is also called dysphagia (say bbd-SVK-fpq-uh). It is most often a sign of [...] one of these types of foods: ? Yars-yb-kxid foods. These are foods that are soft [...] Where can you learn more? Scan the Akippa code or Visit our [place] Emergency Registry information library at https://www.[employer]/ You can also view health information on D1G, your personal patient account. Log in or sign uptoday. Enter R741 in the search box to learn more about Learning About the Diet for Swallowing Problems. Current as of: April 28, 2021?Content Version: 13.1 ?? [id number] [employer]. Care instructions adapted under license by [facility]. If you have questions about a medical condition or this instruction, always ask your healthcare professional. [employer] disclaims any warranty or liability for your use of this information. * Patient Instructions* Jacqueline Paul MD - 10/25/2021 10:14 AM EST Call if you have any questions. During normal business hours, Sunday- Sunday 8:00 a.m.-5:00 p.m., please call to speak to a nurse in the Thoracic Clinic at [phone]. After hours or on weekends orholidays please call: [phone] and ask to speak to the Thoracic Surgeon telephone recorder. Diet: You should follow a puree to soft solid diet as tolerated. If you are having trouble eating or keeping food down please call our office. Smoking: If you are a smoker, please avoid smoking. If you are a smoker who needs help quitting, please call the thoracic surgery clinic at [phone]. Follow up appointments: You should follow up [...] completed barium swallow test and evaluation by TOOL OPERATOR. Patient A&O x4. VSS on RA, [...] Paul MD - 10/24/2021 11:27 AM EST [facility] Department of Thoracic Surgery Progress Note Patient Name: Linda Fuller Patient : 1940 Patient Patient Location: [address] [place] [address] Attending Surgeon: PATRICE CÁRDENAS ID: Linda Fuller [...] 26.6) performed by Patrice Cárdenas MD at [facility] MAIN OR ??? PRO UPPER GI ENDOSCOPY, DIAGNOSTIC N/A 08/15/2021 EGD, UPPER GI ENDOSCOPY performed by Patrice Cárdenas MD at [facility] MAIN OR Vitals: Temp: [36.5 ??C (97.7 ??F)-36.7 ??C (98.1 ??F)] Heart Rate: [61-64] Resp: [16-22] BP: (118-184)/(45-102) SpO2: [96 %-99 %] Heart Rate from SpO2: [53 bpm-60 bpm] Wt & BMI By Encounter Date ED to Hosp-Admission (Current) from 10/23/[address] [place] [address] Office Visit from 08/30/[address] Surgery at [facility] Weight 58.3 kg [...] Calculated (Bezet) 491 ms Calculated P [place] 96 degrees Calculated R [place] 27 degrees Calculated T [place] 51 degrees INTERPRETATION Sinus rhythm with 1st [...] Value Ref Range T&S only valid at [facility] Hosp COVID-19 PCR Specimen: Nasopharyngeal Swab Symptoms->Surveillance Result Value Ref Range SARS-CoV-2 RNA PCR Not Detected Not Detected SARS-CoV-2 Source WASH AND GREASER Swab Hemogram Result Value Ref Range WBC [...] Paul MD 10/24/2021 Thoracic Surgery Service Pager [phone] documented in this encounter H&P Notes * [...] Paul MD - 10/23/2021 4:00 PM EST [facility] Department of Thoracic Surgery H&P Patient [...] 26.6) performed by Patrice Cárdenas MD at [facility] MAIN OR ??? PRO UPPER GI ENDOSCOPY, DIAGNOSTIC N/A 08/15/2021 EGD, UPPER GI ENDOSCOPY performed by Patrice Cárdenas MD at [facility] MAIN OR Vitals: Temp: [36.6 ??C (97.9 ??F)] Heart Rate: [62-64] Resp: [16-18] BP: (150-171)/(45-78) SpO2: [98 %] Heart Rate from SpO2: -- Wt & BMI By Encounter Date ED from 10/23/2021 in Emergency Department [facility] Office Visit from 08/30/2021 in Thoracic Surgery at [facility] Weight 59 kg [...] Calculated (Bezet) 491 ms Calculated P [place] 96 degrees Calculated R [place] 27 degrees Calculated T [place] 51 degrees INTERPRETATION Sinus rhythm with 1st [...] Value Ref Range T&S only valid at [facility] Hosp Diagnostics: EKG [...] Paul MD 10/23/2021 Thoracic Surgery Service Pager [phone] documented in this encounter ED Notes * [...] Value Ref Range T&S only valid at [facility] Hosp COVID-19 PCR Specimen: Nasopharyngeal Swab Symptoms->Surveillance Result Value Ref Range SARS-CoV-2 RNA PCR Not Detected Not Detected SARS-CoV-2 Source WASH AND GREASER Swab EKG NSR without overlying ischemia prolonged [...] Notes * Initial Assessments - Shirley Schaefer, TOOL OPERATOR - 10/25/2021 11:41 AM EST Speech [...] 10/25/21 (results pending, normal per RN report) TOOL OPERATOR consulted for a bedside swallow evaluation. [...] order; OK for a regular diet from TOOL OPERATOR standpoint. Diagnosis: Normal oral manipulation of [...] ?? Alternate liquids and solids No further TOOL OPERATOR intervention is warranted while hospitalized. Do not anticipate need from TOOL OPERATOR services in discharge location. Plan: Therapy Frequency (TOOL OPERATOR Eval): evaluation only Patient / family are in agreement with treatment plan. Total Minutes (Speech Language Pathology): 20 Thank you for this consult with this patient. Please feel free to page me with any questions or concerns. Shirley Schaefer MS, [facility]-TOOL OPERATOR Pager: [phone] Speech-Language Pathologist Inpatient Rehabilitation Medicine * Care [...] Daughter is visiting currently but leaving for [place] tomorrow morningFunctional Status: pt is independent with [...] Insurance: N/A Prescription Coverage: YES Preferred Pharmacy: [id number] [place], [address] [address] This plan was formulated with input from patient and team. All are in agreement with plan. Pt admitted as OBSVO. R. (Reji) PAULETTE Vidal RN/CM - Cellphone: [phone] Pager: [phone] Covering Service RN/CM * Initial Assessments - [...] Component Value Date COVID19 Detected (A) 09/04/2020 [id number] Not Detected 10/23/2021 Present on Admission: ??? Hematemesis Hospitalizations Within the Past 30 Days: no previous admission in last 30 days Patient receiving hospital care under Observation status. Admission order reviewed. Primary Insurance on file: MEDICARE Secondary Insurance on file: n/a Primary care provider on file: Patricia Garza APRN [phone] Pharmacy: [id number] - [place], [address] [address] Advance Care Planning: History <no information> -Advanced [...] Daughter is visiting currently but leaving for [place] tomorrow morningFunctional Status: pt is independent with ADLs and most IADLs. She is responsible for all household tasks. She ambulates with a 4WW indoors and cane outdoors. Pt does not drive; uses state provided transportation for appointments and errandsEquipment at home: cane, 4WW, shower seat. Current DME: cane - straight,shower chair (4WW) [address] [facility] [address] Social & Family Supports: Extended Emergency Contact Information Primary Emergency Contact: SANJAY CEBALLOS Address: [address] [place] [address] [place] [address] [facility] Relation: Child Secondary Emergency Contact: Narcisa Palumbo Address: [address] [place] [address] [facility] Mobile Relation: Child Current Care Provided by: [...] via car when medically ready. Registered Nurse Proposal Writer / Intelligence Operations will continue to follow patient???s progress and remain available if situation changes for coordination of care, psychosocial support and/or discharge planning. RN/CM notes: Pt had used [facility] (referral 07/2021). RN/CM called and patient was discharged from all home care services on 10/05 by meeting goals. Office of Care Management Mayela Vidal RN (Jonas) RN/CM - Cellphone: [phone] Pager: [phone] Covering Service RN/CM * Plan of Care [...] M.D. Fellow in Gastroenterology and Hepatology Pager #[phone] 10/23/2021 Associated attestation - Houston Mehta MD [...] documented. Houston Mehta MD Section of Gastroenterology [facility] documented in this encounter Plan of [...] 7:25 PM EST Upper GI Endoscopy, Diagnostic (20096) 10/24/2021 1:09 PM EST hematemesis UPPER GI [...] who have questions please contact the health early breastfeeding care specialist that requested your imaging first. ? Electronically signed by: Madiha Crawford MD, [facility] ([phone]), at 10/25/2021 11:55 AM Narrative 10/25/2021 11:55 [...] and chest abdomen pelvis CT 01/10/2020 FINDINGS: Insurance Office Manager imaging: Cholecystectomy clips project over the RIGHT [...] 04/26/2021, and chest abdomen pelvisCT 01/10/2020 FINDINGS: Insurance Office Manager imaging: Cholecystectomy clips project over the RIGHT [...] patients who have questions please contactthe health early breastfeeding care specialist that requested your imaging first. Electronically signed by: Madiha Crawford MD, [facility]([phone]), at 10/25/2021 11:55 AM Patrice Cárdenas MD IMG FLUORO ORDERABLE S * (ABNORMAL) Basic Metabolic Panel (non-fasting) (10/25/2021 5:45 AM EST) Glucose 87 65 - 199 mg/dL [facility] Comment:Diabetes: >=200 mg/d L plus symptoms Blood Urea Nitrogen 10 8 - 18 mg/dL [facility] Creatinine 0.68(L) 0.70 - 1.20 mg/dL [facility] Sodium 139 135 - 145 mmol/L [facility] Potassium 3.3(L) 3.5 - 5.0 mmol/L [facility] Comment: Please note: ??Patients with WBC >100,000 may have falsely elevated Potassium levels. ??For accurate Potassium quantification in these patients send serum separator tube (gold top) for subsequent determinations. ??Contact the Clinical Chemistry Laboratory if there are any questions. Chloride 104 98 - 107 mmol/L [facility] Carbon Dioxide 23 22 - 31 mmol/L [facility] Anion Gap 12 5 - 15 mmol/L [facility] Calcium 8.5 8.5 - 10.5 mg/dL [facility] Est Glomerular Filtration Rate 81 >=60 mL/min/1. 73 m?? [facility] [...] Cárdenas MD CHEMISTRY ORDERABLES Performing Organization Address City/[facility]/ZIP Co de Phone Number [facility] [place] [address] * (ABNORMAL) Phosphorus (10/25/2021 5:45 AM EST) Phosphorus 2.1(L) 2.5 - 4.5 mg/dL [facility] Blood 10/25/2021 5:45 AM EST 10/25/2021 5:59 AM EST Narrative Resulting Agency Comment Spec In Lab Patrice Cárdenas MD CHEMISTRY ORDERABLES Performing Organization Address [facility] Co de Phone Number [facility] [place] [address] * Magnesium (10/25/2021 5:45 AM EST) Magnesium 0.87 0.69 - 1.07 mmol/L [facility] Blood 10/25/2021 5:45 AM EST 10/25/2021 5:59 AM EST Narrative Resulting Agency Comment Spec In Lab Patrice Cárdenas MD CHEMISTRY ORDERABLES Performing Organization Address City/[facility] Co de Phone Number [facility] [place] [address] * Hemogram (10/25/2021 5:45 AM EST) White Blood Cell 6.4 4.0 - 9.5 x10(3)/[facility]ORAT[facility] Red Blood Cell 4.26 4.00 - 5.21 x10(6)/[facility]ORATORY Hemoglobin 12.9 11.7 - 15.5 g/dL [facility] Hematocrit 39.7 35.7 - 45.8 % [facility] Mean Cell Volume 93.2 82.6 - 94.4 fL [facility] Mean Cell Hemoglobin 30.3 27.1 - 32.0 pg [facility] Mean Cell Hemoglobin Concentration 32.5 31.7 - 35.0 g/dL [facility] Platelet 281 145 - 357 x10(3)/[facility] LABORATORY RDW Standard Deviation 44.8 37.0 - 46.0 [facility] LABORATORY RDW coefficient of variation 13.1 11.5 - 14.1 % [facility] Mean Platelet Volume 9.8 7.6 - 12.9 [facility] LABORATORY NRBC% auto 0.0 % [facility] NRBC Absolute 0.000 0.000 - 0.000 x10(3)/[facility] LABORATORY Blood 10/25/2021 5:45 AM EST 10/25/2021 5:59 AM EST Narrative Resulting Agency Comment Spec In Lab Patrice Cárdenas MD HEMATOLOGY ORDERABLE S Performing Organization Address City/[facility]/ZIP Co de Phone Number [facility] [place] [address] * Green Tube HOLD (10/24/2021 7:25 PM EST) Pathologist [facility] Green Hold Sample in lab. [facility] Blood Venous Draw / Unknown 10/24/2021 7:25 PM EST 10/24/2021 7:32 PM EST Jacqueline Paul MD CHEMISTRY ORDERABLES [facility] [place] [address] * (ABNORMAL) Hemogram (10/24/2021 7:25 PM EST) Pathologist [facility] White Blood Cell 5.6 4.0 - 9.5 x10(3)/mc L [facility] Red Blood Cell 3.90(L) 4.00 - 5.21 x10(6)/mc L [facility] Hemoglobin 12.3 11.7 - 15.5 g/dL [facility] Hematocrit 36.6 35.7 - 45.8 % [facility] Mean Cell Volume 93.8 82.6 - 94.4 [facility]ATORY Mean Cell Hemoglobin 31.5 27.1 - 32.0 pg [facility] Mean Cell Hemoglobin Concentration 33.6 31.7 - 35.0 g/dL [facility] Platelet 261 145 - 357 x10(3)/mc L [facility] RDW Standard Deviation 45.0 37.0 - 46.0 fL [facility] RDW coefficient of variation 13.2 11.5 - 14.1 % [facility] Mean Platelet Volume 9.8 7.6 - 12.9 fL [facility] NRBC% auto 0.0 % [facility] NRBC Absolute 0.000 0.000 - 0.000 x10(3)/[facility] LABORATORY Blood 10/24/2021 7:25 PM EST 10/24/2021 7:31 PM EST Narrative Resulting Agency Comment Spec In Lab Patrice Cárdenas MD HEMATOLOGY ORDERABLE S [facility] [address] * UPPER GI ENDOSCOPY (10/24/2021 11:55 AM EST) UPPER GI ENDOSCOPY [facility] Endoscopy Procedure Date: 10/24/2021 11:55 AM ? Patient Name: Linda Fuller ? Date of : 1940 ? Age: 81 ? Order #: [id number] ? Instrument Name: [id number] ? Procedure: ? Upper GI endoscopy Indications: [...] physician, the nurse, the ? anesthesiologist, the casing fluid tender and ? the warehouse technician in the procedure room. ? Mental [...] Procedure Code(s): ?? --- Professional --- ? 09282, Esophagogastroduod enoscopy, ? flexible, transoral; diagnostic, ? including collection of specimen(s) ? by brushing or washing, when ? performed (separate procedure) CPT copyright 2019 [employer]. All rights reserved. The codes documented in this report are preliminary and upon die cutter review may be revised to meet current [...] EST) Glucose 89 65 - 199 mg/dL [facility] Comment:Diabetes: >=200 mg/d L plus symptoms Blood Urea Nitrogen 19(H) 8 - 18 mg/dL [facility] Creatinine 0.87 0.70 - 1.20 mg/dL [facility] Sodium 141 135 - 145 mmol/L [facility] Potassium 3.5 3.5 - 5.0 mmol/L [facility] Comment: Please note: ??Patients with WBC >100,000 may have falsely elevated Potassium levels. ??For accurate Potassium quantification in these patients send serum separator tube (gold top) for subsequent determinations. ??Contact the Clinical Chemistry Laboratory if there are any questions. Chloride 108(H) 98 - 107 mmol/L [facility] Carbon Dioxide 23 22 - 31 mmol/L [facility] Anion Gap 10 5 - 15 mmol/L [facility] Calcium 8.4(L) 8.5 - 10.5 mg/dL [facility] Est Glomerular Filtration Rate 62 >=60 mL/min/1. 73 m?? [facility] [...] Cárdenas MD CHEMISTRY ORDERABLES Performing Organization Address [facility] Co de Phone Number [facility] [place] [address] * (ABNORMAL) Phosphorus (10/24/2021 4:07 AM EST) Phosphorus 2.4(L) 2.5 - 4.5 mg/dL [facility] Blood 10/24/2021 4:07 AM EST 10/24/2021 4:13 AM EST Narrative Resulting Agency Comment Spec In Lab Patrice Cárdenas MD CHEMISTRY ORDERABLES Performing Organization Address [facility] Co de Phone Number [facility] [place] [address] * (ABNORMAL) Magnesium (10/24/2021 4:07 AM EST) Magnesium 0.65(L) 0.69 - 1.07 mmol/L [facility] Blood 10/24/2021 4:07 AM EST 10/24/2021 4:13 AM EST Narrative Resulting Agency Comment Spec In Lab Patrice Cárdenas MD CHEMISTRY ORDERABLES Performing Organization Address [facility] Co de Phone Number [facility] [address] * (ABNORMAL) Hemogram (10/24/2021 4:07 AM EST) Pathologist [facility] White Blood Cell 5.5 4.0 - 9.5 x10(3)/mc L [facility] Red Blood Cell 3.70(L) 4.00 - 5.21 x10(6)/mc L [facility] Hemoglobin 11.6(L) 11.7 - 15.5 g/dL [facility] Hematocrit 35.3(L) 35.7 - 45.8 % [facility] Mean Cell Volume 95.4(H) 82.6 - 94.4 fL [facility] Mean Cell Hemoglobin 31.4 27.1 - 32.0 pg [facility] Mean Cell Hemoglobin Concentration 32.9 31.7 - 35.0 g/dL [facility] Platelet 243 145 - 357 x10(3)/[facility] LABORATORY RDW Standard Deviation 46.9(H) 37.0 - 46.0 [facility] LABORATORY RDW coefficient of variation 13.2 11.5 - 14.1 % [facility] Mean Platelet Volume 9.8 7.6 - 12.9 fL [facility] NRBC% auto 0.0 % [facility] NRBC Absolute 0.000 0.000 - 0.000 x10(3)/[facility] Blood 10/24/2021 4:07 AM EST 10/24/2021 4:13 AM EST Narrative Resulting Agency Comment Spec In Lab Patrice Cárdenas MD HEMATOLOGY ORDERABLE S [facility] [place] [address] * COVID-19 PCR (10/23/2021 3:52 PM EST) [facility] SARS-CoV-2 RNA (Rapid) Not Detected Not Detected [facility] Comment: This result should be [...] using the Simplexa COVID-19 Direct Assay by Resonate as authorized by the FDA issued Emergency [...] Department of Pathology and Laboratory Medicine at [facility], certified under the Clinical Laboratory [...] fact sheets at the following FDA website: https://www.fda.gov/medical-devices/imwynfrmaxj-cvqtlbg-0794-dfqrp-70-vfsgkyfah- use-a njvmzexgrrgpq-knmvufl-jrawkql/ugpqf-qlgtzpnihlx-vecv SARS-CoV-2 Source [employer] Swab MA RY [facility] Nasopharyngeal Swab 10/23/20 3:52 PM EST 10/23/2021 4:32 PM EST Comment:Symptoms->Surveillan ce Narrative Resulting Agency Comment Spec In Lab Fiona Malave MD MICROBIOLOGY - GENER AL ORDERABLES [facility] [place] [address] * Type and Screen Validity (10/23/2021 1:20 PM EST) Pathologist [facility] T&S only valid at [facility] Comment:This Type and Screen result is only valid at the [facility] Blood 10/23/2021 1:20 PM EST 10/23/2021 1:37 PM EST Narrative Resulting Agency Comment Spec In Lab Sanjay GALVAN [facility] LAB ORDER VINICIUS Performing Organization Address City/[facility]/ZIP Co de Phone Number [facility] [place] [address] * ABORH Recheck Status (10/23/2021 1:20 PM EST) Pathologist [facility] ABORH Recheck Order Order Placed [facility] ABORH Type Recheck Complete [facility] Blood 10/23/2021 1:20 PM EST 10/23/2021 1:37 PM EST Narrative Resulting Agency Comment Spec In Lab Sanjay Parks PA BLOOD BANK LAB ORDER VINICIUS [facility] [place] [address] * Differential, Automated (10/23/2021 1:20 PM EST) Neutrophil % 67.6 % [facility] Neutrophil Absolute 4.62 1.70 - 6.10 x10(3)/mcL [facility] Lymph % 18.6 % [facility] Lymphocytes Abs 1.3 0.9 - 3.2 x10(3)/[facility]ORY Monocyte % 9.7 % [facility] Monocyte Abs 0.7 0.3 - 0.9 x10(3)/[facility] Eos % 2.6 % [facility] Eosinophils Abs 0.2 0.0 - 0.4 x10(3)/[facility] Basophil % 0.9 % [facility] Baso Absolute 0.1 0.0 - 0.1 x10(3)/[facility] Immature Gran % 0.60 % [facility] Comment: Immature granulocytes(IG's)percentage and absolute count will include metamyelocytes, myelocytes, and promyelocytes. Blood smears from CBCs yielding IG's will be scanned manually for concordance. If this scan disagrees with the automated IG or if promyelocytes are noted, a manual differential will be performed. Immature Gran Absolute 0.04 0.00 - 0.04 x10(3)/[facility] Blood 10/23/2021 1:20 PM EST 10/23/2021 1:37 PM EST Narrative Resulting Agency Comment Spec In Lab Sanjay GALVAN HEMATOLOGY ORDERABLE S [facility] [place] [address] * (ABNORMAL) Hemogram (10/23/2021 1:20 PM EST) White Blood Cell 6.8 4.0 - 9.5 x10(3)/ L [facility] Red Blood Cell 3.80(L) 4.00 - 5.21 x10(6)/ L [facility] Hemoglobin 12.0 11.7 - 15.5 g/dL [facility] Hematocrit 35.6(L) 35.7 - 45.8 % [facility] Mean Cell Volume 93.7 82.6 - 94.4 fL [facility] Mean Cell Hemoglobin 31.6 27.1 - 32.0 pg [facility] Mean Cell Hemoglobin Concentration 33.7 31.7 - 35.0 g/dL [facility] Platelet 278 145 - 357 x10(3)/mc L [facility] RDW Standard Deviation 46.2(H) 37.0 - 46.0 fL [facility] RDW coefficient of variation 13.3 11.5 - 14.1 % [facility] Mean Platelet Volume 9.9 7.6 - 12.9 fL [facility] NRBC% auto 0.0 % [facility] NRBC Absolute 0.000 0.000 - 0.000 x10(3)/mc L [facility] Blood 10/23/2021 1:20 PM EST 10/23/2021 1:37 PM EST Narrative Resulting Agency Comment Spec In Lab Sanjay GALVAN HEMATOLOGY ORDERABLE S [facility] [place] [address] * Antibody screen (10/23/2021 1:20 PM EST) Ab Screen Interp Negative [facility] Expires at [id number] on: 10/26/2021 [facility] Blood 10/23/2021 1:20 PM EST 10/23/2021 1:37 PM EST Narrative Resulting Agency Comment Spec In Lab Sanjay GALV[facility]LOOD B[facility] LAB ORDER VINICIUS [facility] [place] [address] * ABO/Rh Typing (10/23/2021 1:20 PM EST) ABORH Type A Pos [facility] Blood 10/23/2021 1:20 PM EST 10/23/2021 1:37 PM EST Narrative Resulting Agency Comment Spec In Lab Sanjay GALVAN [facility]LOOD B[facility] LAB ORDER VINICIUS Performing Organization Address City/[facility]/ZIP Co de Phone Number [facility] [place] [address] * APTT (10/23/2021 1:20 PM EST) Partial Thromboplastin Time 29 25 - 37 sec [facility] Comment: The PTT is NOT appropriate for heparin monitoring. Use the Anti-Xa level for heparin monitoring (HEP UFH) or LMWH monitoring (HEP LMW). A PTT less than 37 seconds generally indicates adequate hemostasis. Blood 10/23/2021 1:20 PM EST 10/23/2021 1:37 PM EST Narrative Resulting Agency Comment Spec In Lab Fiona Malave MD HEMATOLOGY ORDERABLE S Performing Organization Address [facility] Co de Phone Number [facility] [place] [address] * (ABNORMAL) Prothrombin Time (10/23/2021 1:20 PM EST) Prothrombin Time 16.3(H) 9.4 - 12.5 sec [facility] International Normalization Ratio 1.4 [facility] Comment: An INR <2.0 indicates [...] MD HEMATOLOGY ORDERABLE S Performing Organization Address City/[facility]/ZIP Co de Phone Number [facility] [place] [address] * Troponin (10/23/2021 1:20 PM EST) Pathologist [facility] Troponin-T <0.01 0.00 - 0.00 ng/mL [facility] Comment: The 99th percentile for Troponin T is less than 0.01 ng/mL, any detectable cTnT concentration using this assay should be considered elevated. According to the third universal definition of myocardial infarction the following criteria with a clinical presentation consistent with acute myocardial ischemia meets the diagnosis for a myocardial infarction (CO). Detection of a rise and/or fall of cTnT, with at least one value greater than the 99th percentile (> or = 0.01) and with at least one of the following ?? Symptoms of ischemia ?? New or presumed new significant BJ-rbhsauf-N wave (ST-T) changes or new left bundle [...] additional sample may be indicated. Reference: Third [place] Definition of Myocardial Infarction. Journal of the [place] [employer] 2012;60:1581-98 Blood 10/23/2021 1:20 PM EST 10/23/2021 1:37 PM EST Narrative Resulting Agency Comment Spec In Lab Fiona Malave MD CHEMISTRY ORDERABLES [facility] [place] [address] * (ABNORMAL) Comprehensive metabolic panel (non-fasting) (10/23/2021 1:20 PM EST) [facility] Glucose 141 65 - 199 mg/dL [facility] Comment:Diabetes: >=200 mg/d L plus symptoms Blood Urea Nitrogen 25(H) 8 - 18 mg/dL [facility] Creatinine 1.10 0.70 - 1.20 mg/dL [facility] Sodium 141 135 - 145 mmol/L [facility] Potassium 3.3(L) 3.5 - 5.0 mmol/L [facility] Comment: Please note: ??Patients with WBC >100,000 may have falsely elevated Potassium levels. ??For accurate Potassium quantification in these patients send serum separator tube (gold top) for subsequent determinations. ??Contact the Clinical Chemistry Laboratory if there are any questions. Chloride 103 98 - 107 mmol/L [facility] Carbon Dioxide 26 22 - 31 mmol/L [facility] Anion Gap 12 5 - 15 mmol/L [facility] Calcium 9.0 8.5 - 10.5 mg/dL [facility] Protein, Total 5.9(L) 6.1 - 8.0 g/dL [facility] Albumin 3.9 3.2 - 5.2 g/dL [facility] Aspartate Aminotransferase 11 0 - 30 unit/L [facility] Alanine Aminotransferase 11 0 - 30 unit/L [facility] Alkaline Phosphatase 59 35 - 105 unit/L [facility] Bilirubin, Total <0.2(L) 0.2 - 1.3 mg/dL [facility] Est Glomerular Filtration Rate 47(L) >=60 mL/min/1. 73 m?? [facility] [...] In Lab Fiona Malave MD CHEMISTRY ORDERABLES [facility] [place] [address] * EKG 12 Lead (10/23/2021 1:14 PM EST) Ventricular rate 61 BPM MUSE SYSTEM Atrial Rate 61 BPM MUSE SYSTEM P-R Interval 210 ms MUSE SYSTEM QRS Duration 90 ms MUSE SYSTEM Q-T Interval 488 ms MUSE SYSTEM QTC Calculated (Bezet) 491 ms MUSE SYSTEM Calculated P [place] 96 degrees MUSE SYSTEM Calculated R [place] 27 degrees MUSE SYSTEM Calculated T [place] 51 degrees MUSE SYSTEM INTERPRETATION Sinus rhythm with 1st degree A-V block Prolonged QT Abnormal ECG When compared with ECG of 17-AUG-2021 07:42, Sinus rhythm has replaced Atrial fibrillation Vent. rate has decreased BY ??70 BPM Nonspecific T wave abnormality no longer evident in Inferior leads Nonspecific T wave abnormality no longer evident in Lateral leads Confirmed by MD Cook Danette ([id number]) on 10/24/2021 3:32:33 PM MUSE SYSTEM 10/23/2021 1:14 PM EST 10/24/2021 3:32 PM EST Fiona Malave MD ECG ORDERABLES Performing Organization Address [facility] Co de Phone Number MUSE SYSTEM documented [...] - Provider: Admin Adt)2010 (Given - Provider: Sivlerio Claire RN) 0940 (Given - Provider: Prabha [...] - Provid er: Mario Francisco - Comment: [id number]:10/2021) barium sulfate (E-Z-HD) 98% oral liquid 0-120 mL (COMPLETED) 0-120 mL, Oral, ONCE PRN, 1 dose, Starting on Sun10/25/21 at 0916, Until Sun10/25/21 at 0917, Per Protocol, Radiology Contrast, Routine 0917 (Given - Provid er: Mario Francisco - Comment: [id number]:08/2024 ) barium sulfate (Ezpaque) 60% (w/v) oral liquid 0-710 mL (COMPLETED) 0-710 mL, Oral, ONCE PRN, 1 dose, Starting on Sun10/25/21 at 0916, Until Sun10/25/21 at 0918, Per Protocol, Radiology Contrast, Routine 0918 (Given - Provid er: Mario Francisco - Comment: [id number]: 12/2022) ipratropium-albuteroL (Duoneb) 0.5 mg-3 mg(2.5 mg base)/3 mL nebulizer solution 3 mL 3 mL, Nebulization, EVERY 4 HOURS PRN, Starting on 10/23/21 at 1621, Until Sun10/25/21 at 1808, Wheezing, Routine 1230 ([facility] Hold - Provider: Admin Adt - Reason: Transfer to a Procedural area)1508 ([facility] Unhold - Provider: Admin Adt) lidocaine (Xylocaine) 1% (10 mg/mL) injection 3 mg 3 mg (0.3 mL), Subcutaneous, ONCE PRN, 1 dose, Starting on 10/23/21 at 1621, Until Tu10/25/21 at 1808, for discomfort with PIV insertion, Routine 1230 ([facility] Hold - Provider: Admin Adt - Reason: Transfer to a Procedural area)1508 ([facility] Unhold - Provider: Admin Adt) lidocaine (Xylocaine) 1% (10 mg/mL) injection 3 mg 3 mg (0.3 mL), Subcutaneous, ONCE PRN, 1 dose, Starting on 10/23/21 at 1644, Until Tu10/25/21 at 1808, for discomfort with PIV insertion, Routine 1230 ([facility] Hold - Provider: Admin Adt - Reason: Transfer to a Procedural area)1508 ([facility] Unhold - Provider: Admin Adt) sodium chloride 0.9 % (flush) (BD PosiFlush Normal Saline 0.9) flush 5-20 mL 5-20 mL, Intravenous, EVERY 1 MIN PRN, Starting on 10/23/21 at 1621, Until Tu10/25/21 at 1808, flush, Flush pertains to all indwelling lines. Flush per protocol found in the job aid using the link provided on this medication record., Routine 1230 ([facility] Hold - Provider: Admin Adt - Reason: Transfer to a Procedural area)1508 ([facility] Unhold - Provider: Admin Adt) sodium chloride 0.9 % (flush) (BD PosiFlush Normal Saline 0.9) flush 5-20 mL 5-20 mL, Intravenous, EVERY 1 MIN PRN, Starting on 10/23/21 at 1644, Until Tu10/25/21 at 1808, flush, Flush pertains to all indwelling lines. Flush per protocol found in the job aid using the link provided on this medication record., Routine 1230 ([facility] Hold - Provider: Admin Adt - Reason: Transfer to a Procedural area)1508 ([facility] Unhold - Provider: Admin Adt) documented in this encounter Care Teams Biomedical Engineering Technician Relationship Specialty Start Date End Date Patricia Garza MUSIC EDUCATOR [address] [place] [address] PCP - General Internal Medicine 04/02/20 documented as of this encounter
--- OUTSIDE RECORDS SUMMARY | 2024-11-05 18:46 | XMS_ITS | Encounter Summary ---
Author Organization [facility] [place] [address] Care Team Providers Care Chief Dietitian Name Role Phone Patricia Garza APRN Primary Care Provider Encounter Details Date Type Department Care Team (Late st Contact Info) Description 10/22/2021 Telephone [place] [address] Fiona Lomeli MD [facility] [place] [address] Social History Tobacco Use Types Packs/Day Years [...] on filedocumented in this encounter Care Teams Chief Dietitian Relationship Specialty Start Date End Date Patricia Garza, A AND P MECHANIC [address] [place] [address] PCP - General Internal Medicine 04/02/20 documented as of this encounter
--- OUTSIDE RECORDS SUMMARY | 2024-11-05 18:46 | XMS_ITS | Encounter Summary ---
[place] [address] Care Team Providers Care Retail Greeter Name Role Phone Patricia Garza APRN Primary Care Provider [phone] Encounter Details Date Type Department Care Team (Latest Contact Info) Description 08/17/2021 Transcribe [place] [address] Lizzette Mccarty MD Pre-operative cardiovascular examination Social [...] examination documented in this encounter Care Teams Retail Greeter Relationship Specialty Start Date End Date Patricia Garza APRN [address] [place] [address] PCP - General Internal Medicine 04/02/20 documented as of this encounter
--- OUTSIDE RECORDS SUMMARY | 2024-11-05 18:46 | XMS_ITS | Encounter Summary ---
[place] [address] Care Team Providers Care Paper Pattern Folder Name Role Phone Patricia Garza APRN Primary Care Provider [phone] Reason for Visit * Reason Comments Medication Refill Encounter Details Date Type Department Care Team (Late st Contact Info) Description 08/30/2021 Refill [place] [address] Hal Marroquin MD [facility] [place] [address] Social History Tobacco Use Types Packs/Day Years [...] on filedocumented in this encounter Care Teams Paper Pattern Folder Relationship Specialty Start Date End Date Patricia Garza APRN [address] [place] [address] PCP - General Internal Medicine 04/02/20 documented as of this encounter
--- OUTSIDE RECORDS SUMMARY | 2024-11-05 18:46 | XMS_ITS | Encounter Summary ---
Author Organization [facility] Address [facility] [place] [address] Care Team Providers Care Industrial Arts Teacher Name Role Phone Patricia Garza APRN Primary Care Provider Reason for Visit * Reason Comments Emesis * Auth/Cert Specialty Diagnoses / Procedures Referred By Contac t Referred To Contact Diagnoses Paraesophageal hernia Atrial fibrillation with rapid ventricular response Postoperative vomiting Referral ID Status Reason Start Date Expiration Date Visits Re quested Visits Authorized [id number] 1 1 Encounter Details Date Type Department Care Team (Latest Contact Info) Description 08/17/2021 6:59 AM EDT - 08/19/2021 6:37 PM EDT Hospital Encounter [address] [place] [address] Haylee Oivedo MD [facility] [place] [address] Patrice Cárdenas MD [facility] [address] Postoperative vomiting; Atrial fibrillation with rapid ventricular [...] Hospital Course: Linda Fuller was admitted to [facility] on 08/17/2021via the ED. She was admitted [...] a nurse in the Thoracic Clinic at [phone]. After hours or on weekends or holidays please call: [phone] and ask to speak to the Thoracic Surgeon personal injury paralegal. Exercise & Activity Level: As you recover [...] please call the thoracic surgery clinic at [phone]. Driving: No driving for 1 week or [...] the Thoracic Clinic or the Thoracic Surgeon personal injury paralegal after hours. If you are having pain, [...] Time Provider Department Center 08/30/2021 12:30 PM [facility] DB XRAY ROOM 1 Xray [facility] Rad 08/30/2021 1:00 PM Patrice Cárdenas MD [address] General Instructions None Future Appointments and Orders Future Appointments and Orders Future Appointments Provider Department Dept Phone 08/30/2021 12:30 PM [facility] DB XRAY ROOM 1 XRay at [facility] Arrive at: New Home Sales Consultant Area [phone] Please go to New Home Sales Consultant Area 3 ([facility]). 08/30/2021 1:00 PM Patrice Cárdenas MD Thoracic Surgery at [facility] Arrive at: New Home Sales Consultant Area [phone] Future Orders Complete By Expires Referral to Home Health - at DISCHARGE [ESB9636 CPT(R)] As directed Process Instructions: Scheduling Instructions: Comments: DOCUMENTATION FOR VNA SERVICES (INCLUDING THOSE PATIENTS WITH MEDICARE COVERAGE REQUIRING HOME VNA SERVICES AND/OR HOSPICE SERVICES) PATIENT'S LOCATION: Linda Fuller [address] [facility] [address] [facility] [address] (home) Clinical Ob's Name: self/family In discussion with the attending physician, it is certified that this patient is under their care and that they, or a Nurse Practitioner, Clinical Nurse specialist or Physician Odd Job Laborer who is working directly with them, had [...] for managing ADL's. HOME HEALTH CARE AGENCY: [facility] PHONE: [phone] FAX: [phone] Start of care: within 24 to 48 [...] obtained from this patient's PCP: Patricia Garza, ORTHOPAEDIC DOCTOR [address] / [facility] [id number] All VNA agencies which cover the area of patient's residence have been reviewed, either verbally timothy writing, and patient/family have chosen the home health care agency noted Questions: Agency name and contact information: [facility] Patient location post discharge: home What services are requested: Registered Nurse Physical Therapy Occupational Therapy Start date: Responsible MD post discharge contact info: Surgery and PCP Provider Contact Information: Primary Care Provider: Patricia Garza APRN [phone] Discharge References/Attachments: Discharge References/Attachments None For questions [...] a nurse in the Thoracic Clinic at [phone]. After hours or on weekends or holidays please call: [phone] and ask to speak to the Thoracic [...] please call the thoracic surgery clinic at [phone]. Driving: No driving for 1 week or [...] the Thoracic Clinic or the Thoracic Surgeon personal injury paralegal after hours. If you are having pain, [...] Time Provider Department Center 08/30/2021 12:30 PM [facility] DB XRAY ROOM 1 Xray [facility] Rad 08/30/2021 1:00 PM Patrice Cárdenas MD [address] documented in this encounter Medications at [...] 26.6) performed by Patrice Cárdenas MD at [facility] MAIN OR ??? PRO UPPER GI ENDOSCOPY, DIAGNOSTIC N/A 08/15/2021 EGD, UPPER GI ENDOSCOPY performed by Patrice Cárdenas MD at [facility] MAIN OR Social History: Home Setup: pt lives alone in senior housing apartment complex. 2nd floor apartment with elevator access. Bathroom has a walk-in shower with GB and seat. Standard toilet seat with GB. Daughter is visiting currently but leaving for [place] tomorrow morning Functional Status: pt is independent [...] be an excellent candidate for transition to [facility] in the nearby future. Plan to see [...] of functional outcome. Kori Stevenson OTR/Oleg Pager [phone] Occupational Therapy Rehabilitation Department * Naomy Tate [...] fulls). Thank you, Naomy Tate RD Pager [phone] * Alicia Dorsey PA - 08/19/2021 7:34 AM EDT [facility] Department of Thoracic Surgery Inpatient Progress Note Patient Name: Linda Fuller Patient : 1940 [facility] Attending Surgeon: HAYLEE OVIEDO DAVID J ID: [...] to Hosp-Admission (Current) from 08/17/2021 in 2 [facility] Admission(Discharged) from 08/15/2021 in 4 [facility] Weight 61.7 kg (136 lb) 1 [...] mcL Appearance UA Turbid (A) Clear Spec [place] UA >=1.030 (A) 1.005 - 1.030 Color UA [place] (A) Yellow Culture Reflexed Yes Urinalysis Microscopic [...] MANDY Castro 08/19/2021 Thoracic Surgery Service Pager [phone] Associated attestation - Patrice Cárdenas MD - [...] Ahn MD - 08/18/2021 2:18 PM EDT [facility] Department of Thoracic Surgery [...] to Hosp-Admission (Current) from 08/17/2021 in 2 [facility] Admission(Discharged) from 08/15/2021 in 4 [facility] Weight 61.7 kg (136 lb) 1 [...] QTC Calculated (Bezet) 487 ms Calculated R [place] 24 degrees Calculated T [place] 140 degrees INTERPRETATION Atrial fibrillation with rapid ventricular response Nonspecific ST and T wave abnormality Abnormal ECG When compared with ECG of 15-AUG-2021 12:17, Atrial fibrillation has replaced Sinus rhythm Vent. rate has increased BY 61 BPM Confirmed by MD Cook Danette ([id number]) on 08/17/2021 4:41:56 PM COVID-19 PCR Specimen: Nasopharyngeal Swab Symptoms->Surveillance Result Value Ref Range SARS-CoV-2 RNA PCR Not Detected Not Detected SARS-CoV-2 Source SOFTWARE CONFIGURATION SPECIALIST Swab Basic Metabolic Panel (non-fasting) Result Value [...] Ahn MD 08/18/2021 Thoracic Surgery Service Pager [phone] * Donya Charlton RD - 08/18/2021 10:41 AM EDT Nutrition Note Provided patient with the following ONS to take with her at discharge: 3 [place] Glucerna LOT#[id number] exp. 29 March 2022 3 Chocolate Glucerna LOT#[id number] exp. 28 April 2022 3 Vanilla Glucerna LOT#[id number] exp. 27 January 2022 1 unopened box of vanilla BIB LOT#[id number] exp. 04 August 2022 Reviewed full liquid diet with patient and how to incorporate these supplements into her diet. Encouraged her to look for coupons online for Ensure products as patient commented that ONS can be pricey. Thank you, Donya Charlton MS, RD Pager [phone] * Ramona Russell, PT - 08/18/2021 9:28 [...] 26.6) performed by Patrice Cárdenas MD at [facility] MAIN OR ??? PRO UPPER GI ENDOSCOPY, DIAGNOSTIC N/A 08/15/2021 EGD, UPPER GI ENDOSCOPY performed by Patrice Cárdenas MD at [facility] MAIN OR Active Non-Hospital Problems Diagnosis [...] person, place, and time Vision: wears glasses coat finisher Skin: abdominal laprascopic punctures, PIV Musculoskeletal: ROM: [...] in this evaluation. Time IN / OUT: [id number] Total Minutes, Physical Therapy: 15 (evaluation, low complexity) Ramona Russell Pager: [phone] Physical Therapy Inpatient Rehabilitation Department * Patito [...] Skin: Psych/Social: Consults: PT [] OT [] SENIOR MATERIALS PLANNER [] Psych [] Action List Monitor/ manage pain. Monitor for nausea/ vomiting. IV flds. Discharge planning Discharge Plan: Home meds in Rx [] Belongings in safe [] Situational Awareness & Contingency Planning Notify MD if pain unrelieved. Nausea / vomiting unrelieved with available medications documented in this encounter H&P Notes * Alicia Dorsey PA - 08/17/2021 8:02 AM EDT [facility] Department of Thoracic Surgery Note [facility] [address] [place], [place] [address] FAX: Patient Name: Linda Fuller Patient : [...] 26.6) performed by Patrice Cárdenas MD at [facility] MAIN OR ??? PRO UPPER GI ENDOSCOPY, DIAGNOSTIC N/A 08/15/2021 EGD, UPPER GI ENDOSCOPY performed by Patrice Cárdenas MD at [facility] MAIN OR Medications: No outpatient medications [...] Date ED from 08/17/2021 in Emergency Department [facility] Admission (Discharged) from 08/15/2021 in 4 [facility] Weight 61.7 kg (136 lb) 1 [...] PCR Invalid (A) Not Detected SARS-CoV-2 Source SOFTWARE CONFIGURATION SPECIALIST Swab Respiratory Panel PCR Specimen: Nasopharyngeal Swab Symptoms->Surveillance Result Value Ref Range Resp Panel Source SOFTWARE CONFIGURATION SPECIALIST Swab Resp Panel PCR Negative Negative Adenovirus [...] QTC Calculated (Bezet) 490 ms Calculated P [place] 81 degrees Calculated R [place] 32 degrees Calculated T [place] 53 degrees INTERPRETATION Sinus rhythm with Premature [...] liquid diet as tolerated 5. Please page [phone] for questions or concerns. All plans formulated in discussion with and directed by attending thoracic surgeon Dr. Cárdenas. MANDY Castro 08/17/2021 Thoracic Surgery Service Pager [phone] documented in this encounter ED Notes * [...] RN - 08/17/2021 9:45 AM EDT This advertising copywriter was unable to obtain IV access. IV [...] of 08/17/21 1341 Wed Aug 17, 2021 0773 Thoracics paged [phone] WBC(!): 17.0 Assessment and Plan: Linda Fuller [...] the patient. Lynnette Valerio MD Resident 08/30/21 8978 Associated attestation - Haylee Oviedo MD - [...] s/s of distress. D/C summary routed to [facility]. Staff assist via w/c to east [...] Component Value Date COVID19 Detected (A) 09/04/2020 [id number] Invalid (A) 08/15/2021 Past medical History: Past [...] CHILDREN would be surrogate decision maker per [place] surrogate decision making law. (Only good for 180 days) Any patient receiving care at [facility] must abide by [place] law. The hierarchy for surrogate decision making [...] (i) The agent with financial power of erisa attorney or a conservator appointed in accordance [...] read and make cards; retired from [employer]. Equipment at home: rollator walker, cane, safety pull cords. Sleeps in a regular bed. Fall history: reports she falls occasionally, last fall was ~ 3 months ago in the bathroom on a rug.. Current DME: cane - straight Home Address (confirmed) [address] [place] [address] [address] [id number] Social & Family Supports: All names listed below confirmed with patient as current and correct Extended Emergency Contact Information Primary Emergency Contact: SANJAY CEBALLOS Address: [address] [place], [place] [address] [place] [address] of [place] Relation: Child Secondary Emergency Contact: Narcisa Palumbo Address: [address] [place] [address] [facility] Mobile Relation: Child Current Care Provided [...] likely Other Pertinent/Service Specific Information: [facility] patient at [facility] - SOC was never started with dc on 08/16/2021. Health/Prescription Coverage: Primary Insurance: MEDICARE Payor: MEDICARE / Plan: MEDICARE PART A & B / Product Type: *No Product type* / Secondary Insurance: N/A Prescription Coverage: YES Preferred Pharmacy: No Pharmacies Listed [place] Status: Patient is a : No Primary Care Provider: Patricia Garza, ORTHOPAEDIC DOCTOR [phone] Patient/Caregiver Goals of Treatment: Return home with Resumption VNA services Potential Needs for Transition of Care: home health care Agency Referrals: Patient given freedom of choice of area VNAs, chooses to stay with: [facility] PHONE: [phone] FAX: [phone] Expected date of discharge: TBD Referral routed to the Microfilm Duplicating Unit Supervisor for matching with agency/vendor and to [...] planningElsy Ellis) PAULETTE Vidal RN/CM - Cellphone: [phone] Pager: [phone] Covering Service RN/CM * ED Triage - [...] 08/18/2021 5:58 AM EDT RAPID COVID-19 PCR ([facility]) STAT 08/17/2021 5:19 PM EDT EKG [...] Urine 78(H) 0 - 29 mcg/mg Cr [facility] Comment: Reference Ranges: <30 mcg/mg: [...] 2, 357? 362 Albumin, Urine 28.1 mg/L [facility] Creatinine, Urine 36 mg/dL [facility] Urine 08/19/2021 2:00 AM EDT 08/19/2021 2:07 AM EDT Narrative Resulting Agency Comment Spec In Lab Patrice Cárdenas MD URINE ORDERABLES Performing Organization Address City/[facility] Co de Phone Number [facility] [place] [address] * Sodium, urine, random (08/19/2021 2:00 AM EDT) Sodium, Urine 170 mmol/L [facility] Urine 08/19/2021 2:00 AM EDT 08/19/2021 2:07 AM EDT Narrative Resulting Agency Comment Spec In Lab Patrice Cárdenas MD URINE ORDERABLES Performing Organization Address [facility]/ZIP Co de Phone Number [facility] [place] [address] * Creatinine, urine, random (08/19/2021 2:00 AM EDT) Creatinine, Urine 34 mg/dL [facility] Urine 08/19/2021 2:00 AM EDT 08/19/2021 2:07 AM EDT Narrative Resulting Agency Comment Spec In Lab Patrice Cárdenas MD URINE ORDERABLES Performing Organization Address [facility] Co de Phone Number [facility] [place] [address] * Sodium, urine, random (08/19/2021 2:00 AM EDT) Sodium, Urine 168 mmol/L [facility] Urine 08/19/2021 2:00 AM EDT 08/19/2021 2:07 AM EDT Narrative Resulting Agency Comment Spec In Lab Patrice Cárdenas MD URINE ORDERABLES Performing Organization Address [facility] Co de Phone Number [facility] [place] [address] * CK (08/19/2021 1:54 AM EDT) Creatine Kinase 86 0 - 160 unit/L [facility] Blood Venous Draw / Unknown 08/19/2021 1:54 AM EDT 08/19/2021 2:06 AM EDT Narrative Resulting Agency Comment Spec In Lab Gerber Walton MD CHEMISTRY ORDERABLES Performing Organization Address [facility] Co de Phone Number [facility] [place] [address] * (ABNORMAL) Differential, Automated (08/19/2021 1:54 AM EDT) Neutrophil % 65.1 % [facility] Neutrophil Absolute 4.66 1.70 - 6.10 x10(3)/mc L [facility] Lymph % 19.8 % [facility] Lymphocytes Abs 1.4 0.9 - 3.2 x10(3)/mc L [facility] Monocyte % 8.8 % [facility] Monocyte Abs 0.6 0.3 - 0.9 x10(3)/[facility] Eos % 4.2 % [facility] Eosinophils Abs 0.3 0.0 - 0.4 x10(3)/[facility] Basophil % 1.0 % [facility] Baso Absolute 0.1 0.0 - 0.1 x10(3)/[facility] Immature Gran % 1.10 % [facility] Comment: Immature granulocytes(IG's)percentage and absolute count will include metamyelocytes, myelocytes, and promyelocytes. Blood smears from CBCs yielding IG's will be scanned manually for concordance. If this scan disagrees with the automated IG or if promyelocytes are noted, a manual differential will be performed. Immature Gran Absolute 0.08(H) 0.00 - 0.04 x10(3)/[facility] Blood 08/19/2021 1:54 AM EDT 08/19/2021 2:02 AM EDT Narrative Resulting Agency Comment Spec In Lab Ashley Ahn MD HEMATOLOGY ORDERABL ES [facility] [place] [address] * (ABNORMAL) Hemogram (08/19/2021 1:54 AM EDT) White Blood Cell 7.2 4.0 - 9.5 x10(3)/[facility] Red Blood Cell 3.67(L) 4.00 - 5.21 x10(6)/[facility] Hemoglobin 11.2(L) 11.7 - 15.5 g/dL [facility] Hematocrit 34.9(L) 35.7 - 45.8 % [facility] Mean Cell Volume 95.1(H) 82.6 - 94.4 fL [facility] Mean Cell Hemoglobin 30.5 27.1 - 32.0 pg [facility] Mean Cell Hemoglobin Concentration 32.1 31.7 - 35.0 g/dL [facility] Platelet 256 145 - 357 x10(3)/mc L [facility] RDW Standard Deviation 46.5(H) 37.0 - 46.0 fL [facility] RDW coefficient of variation 13.3 11.5 - 14.1 % [facility] Mean Platelet Volume 9.8 7.6 - 12.9 fL [facility] NRBC% auto 0.0 % [facility] NRBC Absolute 0.000 0.000 - 0.000 x10(3)/mc L [facility] Blood 08/19/2021 1:54 AM EDT 08/19/2021 2:02 AM EDT Narrative Resulting Agency Comment Spec In Lab Ashley Ahn MD HEMATOLOGY ORDERABL ES Performing Organization Address City/[facility]/ZIP Co de Phone Number [facility] [place] [address] * (ABNORMAL) Phosphorus (08/19/2021 1:54 AM EDT) Phosphorus 2.1(L) 2.5 - 4.5 mg/dL [facility] Blood 08/19/2021 1:54 AM EDT 08/19/2021 2:02 AM EDT Narrative Resulting Agency Comment Spec In Lab Patrice Cárdenas MD CHEMISTRY ORDERABLES Performing Organization Address City/[facility]/ZIP Co de Phone Number [facility] [place] [address] * Magnesium (08/19/2021 1:54 AM EDT) Magnesium 0.79 0.69 - 1.07 mmol/L [facility] Blood 08/19/2021 1:54 AM EDT 08/19/2021 2:02 AM EDT Narrative Resulting Agency Comment Spec In Lab Patrice Cárdenas MD CHEMISTRY ORDERABLES [facility] [place] [address] * (ABNORMAL) Basic Metabolic Panel (non-fasting) (08/19/2021 1:54 AM EDT) Glucose 89 65 - 199 mg/dL [facility] Comment:Diabetes: >=200 mg/d L plus symptoms Blood Urea Nitrogen 20(H) 8 - 18 mg/dL [facility] Creatinine 0.66(L) 0.70 - 1.20 mg/dL [facility] Sodium 139 135 - 145 mmol/L [facility] Potassium 3.6 3.5 - 5.0 mmol/L [facility] Comment: Please note: ??Patients with WBC >100,000 may have falsely elevated Potassium levels. ??For accurate Potassium quantification in these patients send serum separator tube (gold top) for subsequent determinations. ??Contact the Clinical Chemistry Laboratory if there are any questions. Chloride 106 98 - 107 mmol/L [facility] Carbon Dioxide 24 22 - 31 mmol/L [facility] Anion Gap 9 5 - 15 mmol/L [facility] Calcium 7.8(L) 8.5 - 10.5 mg/dL [facility] Est Glomerular Filtration Rate 82 >=60 mL/min/1. 73 m?? [facility] [...] MD CHEMISTRY ORDERABLES [facility] [place] [address] * (ABNORMAL) Urine culture (08/18/2021 3:51 PM EDT) Urine Culture Greater than 50,000 cfu/mL Klebsiella oxytoca(A) [facility] Organism Klebsiella oxytoca(A) [facility] Straight Catheter Urine 08/18/2021 3:51 [...] - GE NERAL ORDERABLES Performing Organization Address City/[facility]/ZIP Co de Phone Number [facility] [place] [address] * (ABNORMAL) Urinalysis Microscopic Exam (08/18/2021 3:51 PM EDT) RBC, Urine >100(H) 0 - 4 /HPF [facility] WBC, Urine 51(H) 0 - 5 /HPF [facility] WBC Clumps, Urine Occasiona l(A) None /HPF [facility] Comment:Interpret with cauti on, manual microscopic results are from an unspun specimen Bacteria, Urine Moderate( A) None /HPF [facility] Squamous Epithelial Cells Raw Data, Urine 1 <=4 /HPF [facility] Hyaline Casts, Urine 12(H) 0 - 2 /LPF [facility] Amorphous Crystals, Urine Moderate( A) None /HPF [facility] Comment:Interpret with cauti on, manual microscopic results are from an unspun specimen Straight Catheter Urine 08/18/2021 3:51 PM EDT 08/18/2021 4:29 PM EDT Narrative Resulting Agency Comment Spec In Lab Alicia GALVAN URINE ORDERABLES [facility] [place] [address] * (ABNORMAL) Urinalysis with reflex Culture (08/18/2021 3:51 PM EDT) Glucose, Urine Dipstick Negative Negative mg/dL [facility] Protein, Urine Dipstick 100(A) Negative mg/dL [facility] Bilirubin, Urine Dipstick Moderate(A) Negative mg/dL [facility] Comment: Clinical correlation required for positive Urine Bilirubin results as false positive may occur with some drugs and drug related products. If a false positive is suspected a serum total bilirubin should be considered if clinically indicated. Urobilinogen, Urine Dipstick Normal Normal mg/dL [facility] pH, Urn (dipstick) 5.0 5.0 - 8.0 [facility] Blood, Urine Dipstick Moderate(A) Negative mg/dL [facility] Ketone, Urine Dipstick Negative Negative mg/dL [facility] Nitrite, Urine Dipstick Positive(A) Negative [facility] Leukocytes, Urine Dipstick Moderate(A) Negative [facility] Appearance, Urine Dipstick Turbid(A) Clear [facility] Specific [place] Urine Automated >=1.030(A) 1.005 - 1.030 [facility] Color, Urine Dipstick [place](A) Yellow [facility] Reflex to Culture Yes [facility] Straight Catheter Urine 08/18/2021 3:51 PM EDT 08/18/2021 4:29 PM EDT Narrative Resulting Agency Comment Spec In Lab Patrice Cárdenas MD URINE ORDERABLES Performing Organization Address [facility] Co de Phone Number [facility] [place] [address] * Hepatic Function Panel (08/18/2021 2:44 PM EDT) Protein, Total 6.1 6.1 - 8.0 g/dL [facility] Albumin 3.5 3.2 - 5.2 g/dL [facility] Aspartate Aminotransferase 23 0 - 30 unit/L [facility] Alanine Aminotransferase 17 0 - 30 unit/L [facility] Alkaline Phosphatase 63 35 - 105 unit/L [facility] Bilirubin, Total 0.5 0.2 - 1.3 mg/dL [facility] Bilirubin, Direct 0.2 0.0 - 0.3 mg/dL [facility] Blood Venous Draw / Unknown 08/18/2021 2:44 PM EDT 08/18/2021 3:21 PM EDT Narrative Resulting Agency Comment Spec In Lab Kristopher Walsh MD CHEMISTRY ORDERABLES Performing Organization Address [facility]/ZIP Co de Phone Number [facility] [place] [address] * Phosphorus (08/18/2021 2:44 PM EDT) [facility] Phosphorus 3.1 2.5 - 4.5 mg/dL [facility] Comment:result rechecked-BC Blood Venous Draw / Unknown 08/18/2021 2:44 PM EDT 08/18/2021 3:21 PM EDT Narrative Resulting Agency Comment Spec In Lab Gerber Walton MD CHEMISTRY ORDERABLES Performing Organization Address [facility] Center/ZIP Co de Phone Number [facility] [place] [address] * Magnesium (08/18/2021 2:44 PM EDT) [facility] Magnesium 1.01 0.69 - 1.07 mmol/L [facility] Blood Venous Draw / Unknown 08/18/2021 2:44 PM EDT 08/18/2021 3:21 PM EDT Narrative Resulting Agency Comment Spec In Lab Gerber Walton MD CHEMISTRY ORDERABLES [facility] [place] [address] * (ABNORMAL) Hemogram (08/18/2021 2:44 PM EDT) [facility] White Blood Cell 9.7(H) 4.0 - 9.5 x10(3)/mc L [facility] Red Blood Cell 4.51 4.00 - 5.21 x10(6)/mc L [facility] Hemoglobin 14.0 11.7 - 15.5 g/dL [facility] Hematocrit 42.0 35.7 - 45.8 % [facility] Mean Cell Volume 93.1 82.6 - 94.4 fL [facility] Mean Cell Hemoglobin 31.0 27.1 - 32.0 pg [facility] Mean Cell Hemoglobin Concentration 33.3 31.7 - 35.0 g/dL [facility] Platelet 354 145 - 357 x10(3)/mc L [facility] RDW Standard Deviation 45.2 37.0 - 46.0 fL [facility] RDW coefficient of variation 13.2 11.5 - 14.1 % [facility] Mean Platelet Volume 9.8 7.6 - 12.9 fL [facility] NRBC% auto 0.0 % [facility] NRBC Absolute 0.000 0.000 - 0.000 x10(3)/mc L [facility] Blood 08/18/2021 2:44 PM EDT 08/18/2021 3:11 PM EDT Narrative Resulting Agency Comment Spec In Lab Patrice Cárdenas MD HEMATOLOGY ORDERABLE S Performing Organization Address City/State/[facility] Co de Phone Number [facility] [place] [address] * (ABNORMAL) Basic Metabolic Panel (non-fasting) (08/18/2021 2:44 PM EDT) Glucose 113 65 - 199 mg/dL [facility] Comment:Diabetes: >=200 mg/d L plus symptoms Blood Urea Nitrogen 24(H) 8 - 18 mg/dL [facility] Creatinine 0.87 0.70 - 1.20 mg/dL [facility] Sodium 141 135 - 145 mmol/L [facility] Potassium 3.9 3.5 - 5.0 mmol/L [facility] Comment: Please note: ??Patients with WBC >100,000 may have falsely elevated Potassium levels. ??For accurate Potassium quantification in these patients send serum separator tube (gold top) for subsequent determinations. ??Contact the Clinical Chemistry Laboratory if there are any questions. Chloride 105 98 - 107 mmol/L [facility] Carbon Dioxide 23 22 - 31 mmol/L [facility] Anion Gap 13 5 - 15 mmol/L [facility] [...] Cárdenas MD CHEMISTRY ORDERABLES Performing Organization Address [facility] Co de Phone Number [facility] [place] [address] * Lavender Tube HOLD (08/18/2021 5:58 AM EDT) Lavender Hold Sample in lab. [facility] Blood Venous Draw / Unknown 08/18/2021 5:58 AM EDT 08/18/2021 6:02 AM EDT Gerber Walton MD HEMATOLOGY ORDERABLE S Performing Organization Address City/[facility] Co de Phone Number [facility] [place] [address] * (ABNORMAL) Phosphorus (08/18/2021 5:58 AM EDT) Phosphorus 1.2(Critic al) 2.5 - 4.5 mg/dL [facility] Comment: Called by: , Read back by: Patito Yoo , Date/Time:08/18/21 06:52. Blood 08/18/2021 5:58 AM EDT 08/18/2021 6:02 AM EDT Narrative Resulting Agency Comment Spec In Lab Patrice Cárdenas MD CHEMISTRY ORDERABLES Performing Organization Address City/[facility]/ZIP Co de Phone Number [facility] [place] [address] * Magnesium (08/18/2021 5:58 AM EDT) Magnesium 0.75 0.69 - 1.07 mmol/L [facility] Blood 08/18/2021 5:58 AM EDT 08/18/2021 6:02 AM EDT Narrative Resulting Agency Comment Spec In Lab Patrice Cárdenas MD CHEMISTRY ORDERABLES Performing Organization Address [facility] de Phone Number [facility] [place] [address] * (ABNORMAL) Basic Metabolic Panel (non-fasting) (08/18/2021 5:58 AM EDT) Pathologist [facility] Glucose 68 65 - 199 mg/dL [facility] Comment:Diabetes: >=200 mg/d L plus symptoms Blood Urea Nitrogen 23(H) 8 - 18 mg/dL [facility] Creatinine 0.82 0.70 - 1.20 mg/dL [facility] Sodium 142 135 - 145 mmol/L [facility] [...] mmol/L [facility] Carbon Dioxide 24 22 - 31 mmol/L [facility] Anion Gap 10 5 - 15 mmol/L [facility] Calcium 7.7(L) 8.5 - 10.5 mg/dL [facility] Est Glomerular Filtration Rate 67 >=60 mL/min/1. 73 m?? [facility] MD CHEMISTRY ORDERABLES [facility] [place] [address] * COVID-19 PCR (08/17/2021 5:19 PM EDT) [...] using the Simplexa COVID-19 Direct Assay by [employer] as authorized by the FDA issued Emergency [...] Department of Pathology and Laboratory Medicine at [facility], certified under the Clinical [...] fact sheets at the following FDA website: https://www.fda.gov/medical-devices/lbxcvpstdze-mvieqct-9306-jswyn-64-kulbpemoc- use-a myyceyvrvodvw-htqaolc-dvdhzur/rzhbq-umxfddclmfk-mrbo SARS-CoV-2 Source SOFTWARE CONFIGUR[employer]IST Swab [facility] Nasopharyngeal Swab 08/17/20 5:19 PM EDT 08/17/2021 5:50 PM EDT Comment:Symptoms->Surveillan ce Narrative Resulting Agency Comment Spec In Lab Haylee Oviedo MD MICROBIOLOGY - GEN ERAL ORDERABLES [facility] [place] [address] * EKG 12 Lead (08/17/2021 7:42 AM EDT) Ventricular rate 131 BPM MUSE SYSTEM QRS Duration 84 ms MUSE SYSTEM Q-T Interval 330 ms MUSE SYSTEM QTC Calculated (Bezet) 487 ms MUSE SYSTEM Calculated R [place] 24 degrees MUSE SYSTEM Calculated T [place] 140 degrees MUSE SYSTEM INTERPRETATION Atrial fibrillation with rapid ventricular response Nonspecific ST and T wave abnormality Abnormal ECG When compared with ECG of 15-AUG-2021 12:17, Atrial fibrillation has replaced Sinus rhythm Vent. rate has increased BY ??61 BPM Confirmed by MD Cook Danette ([id number]) on 08/17/2021 4:41:56 PM MUSE SYSTEM 08/17/2021 7:42 AM EDT 08/17/2021 4:41 PM EDT Haylee Oviedo MD ECG ORDERABLES MUSE SYSTEM * (ABNORMAL) Differential, Automated (08/17/2021 7:40 AM EDT) Neutrophil % 88.4 % [facility] Neutrophil Absolute 15.03(H) 1.70 - 6.10 x10(3)/mc L [facility] Lymph % 3.8 % [facility] Lymphocytes Abs 0.6(L) 0.9 - 3.2 x10(3)/mc L [facility] Monocyte % 6.6 % [facility] Monocyte Abs 1.1(H) 0.3 - 0.9 x10(3)/mc L [facility] Eos % 0.0 % [facility] Eosinophils Abs 0.0 0.0 - 0.4 x10(3)/ L [facility] Basophil % 0.3 % [facility] Baso Absolute 0.0 0.0 - 0.1 x10(3)/mc L [facility] Immature Gran % 0.90 % [facility] Comment: Immature granulocytes(IG's)percentage and absolute count will include metamyelocytes, myelocytes, and promyelocytes. Blood smears from CBCs yielding IG's will be scanned manually for concordance. If this scan disagrees with the automated IG or if promyelocytes are noted, a manual differential will be performed. Immature Gran Absolute 0.15(H) 0.00 - 0.04 x10(3)/mc L [facility] Blood 08/17/2021 7:40 AM EDT 08/17/2021 7:51 AM EDT Narrative Resulting Agency Comment Spec In Lab Lynnette Live MD HEMATOLOGY ORDERAB LES [facility] [place] [address] * (ABNORMAL) Hemogram (08/17/2021 7:40 AM EDT) White Blood Cell 17.0(H) 4.0 - 9.5 x10(3)/[facility] Red Blood Cell 4.71 4.00 - 5.21 x10(6)/[facility] Hemoglobin 14.2 11.7 - 15.5 g/dL [facility] Hematocrit 43.0 35.7 - 45.8 % [facility] Mean Cell Volume 91.3 82.6 - 94.4 fL [facility] Mean Cell Hemoglobin 30.1 27.1 - 32.0 pg [facility] Mean Cell Hemoglobin Concentration 33.0 31.7 - 35.0 g/dL [facility] Platelet 341 145 - 357 x10(3)/[facility] RDW Standard Deviation 44.2 37.0 - 46.0 [facility] RDW coefficient of variation 13.2 11.5 - 14.1 % [facility] Mean Platelet Volume 9.6 7.6 - 12.9 fL [facility] NRBC% auto 0.0 % [facility] NRBC Absolute 0.000 0.000 - 0.000 x10(3)/[facility] Blood 08/17/2021 7:40 AM EDT 08/17/2021 7:51 AM EDT Narrative Resulting Agency Comment Spec In Lab Lynnette Live MD HEMATOLOGY ORDERAB LES [facility] [place] [address] * (ABNORMAL) Basic Metabolic Panel (non-fasting) (08/17/2021 7:40 AM EDT) Glucose 114 65 - 199 mg/dL [facility] Comment:Diabetes: >=200 mg/d L plus symptoms Blood Urea Nitrogen 19(H) 8 - 18 mg/dL [facility] Creatinine 0.88 0.70 - 1.20 mg/dL [facility] Sodium 142 135 - 145 mmol/L [facility] [...] mmol/L [facility] Carbon Dioxide 22 22 - 31 mmol/L [facility] Anion Gap 16(H) 5 - 15 mmol/L [facility] Calcium 8.3(L) 8.5 - 10.5 mg/dL [facility] Est Glomerular Filtration Rate 61 >=60 mL/min/1. 73 m?? [facility] [...] Lab Haylee Oviedo MD CHEMISTRY ORDERABL ES [facility] [place] [address] documented in this encounter Visit Diagnoses Diagnosis [...] Gayle Castellano RN)[id number] (Not Given - Provider: Ptaito Yoo RN - Reason: See comment) metoprolol (LOPRESSOR) injection 5 mg (COMPLETED) 5 mg, Intravenous, ONCE, 1 dose, On Sun08/17/21 at 1335, Hold if SBP less than 90 Hold if HR less than 60 1339 (Given - Provider: Gayle Castellano RN) metoprolol (LOPRESSOR) injection 5 mg (COMPLETED) 5 mg, Intravenous, ONCE, 1 dose, On Sun08/19/21 at 0615 0605 (Given - Provider: Nishant Mcaario RN) metoprolol succinate XL (Toprol-XL) tablet 50 [...] Routine documented in this encounter Care Teams Industrial Arts Teacher Relationship Specialty Start Date End Date Patricia Garza, LAZARA [address] [place] [address] PCP - General Internal Medicine 04/02/20 documented as of this encounter
--- OUTSIDE RECORDS SUMMARY | 2024-11-05 18:46 | XMS_ITS | Encounter Summary ---
Author Organization [facility] [place] [address] Care Team Providers Care Fruit Washer Name Role Phone Patricia Garza APRN Primary Care Provider Reason for Visit * Auth/Cert Specialty Diagnoses / Procedures Referred By Amanuel centeno Referred To Contact Diagnoses Paraesophageal hernia Atrial fibrillation with rapid ventricular response Postoperative vomiting Referral ID Status Reason Start Date Expiration Date Visits Re quested Visits Authorized [id number] 1 1 Encounter Details Date Type Department Care Team (Latest Contact Info) Description 08/15/2021 6:08 AM EDT - 08/16/2021 6:27 PM EDT Hospital Encounter [address] [place] [address] Patrice Cárdenas MD [facility] [place] [address] Hiatal hernia Discharge Disposition: Home with VNA [...] EDT Pulse 87 08/16/2021 12:37 PM EDT 65=860 at rest, 106-136 with activity, end post [...] Primary * Ilan Robb PA - Physician Remote Computer Terminal Operator Procedure: Procedure(s): ROBOT XI LAPAROSCOPIC PARAESOPHAGEAL HERNIA [...] Hospital Course: Linda Fuller was admitted to [facility] on 1via the Same Day Program. She [...] who have questions please contact the health in home caregiver that requested your imaging first. Electronically signed by: Law Galo MD, [facility] ([phone]), at 08/16/2021 2:59 PM Pending Studies and [...] a nurse in the Thoracic Clinic at [phone]. After hours or on weekends or holidays please call: [phone] and ask to speak to the Thoracic Surgeon brazer production line. Exercise & Activity Level: As you recover [...] please call the thoracic surgery clinic at [phone]. Driving: No driving for 1 week or [...] the Thoracic Clinic or the Thoracic Surgeon brazer production line after hours. Please take over the counter [...] Time Provider Department Center 08/16/2021 1:30 PM [facility] DX ROOM 8 MH Xray [facility] Rad General Instructions None Future Appointments and Orders Future Orders Complete By Expires XR Chest PA & Lateral (Generic) [[id number] Custom] 08/30/2021 08/16/2022 Process Instructions: Scheduling Instructions: Questions: Where will study be performed?: [facility] Radiology Portable exam?: Reason for exam and clinical history: s/p robotic PEHR Clinical information / pimentel questions: recurrence, PTX, effusion, comparison, changes Stat read required?: Date of injury if applicable: Requested Time: Referral to Home Health - at DISCHARGE [[id number] CPT(R)] As directed Process Instructions: Scheduling Instructions: Comments: DOCUMENTATION FOR VNA SERVICES (INCLUDING THOSE PATIENTS WITH MEDICARE COVERAGE REQUIRING HOME VNA SERVICES AND/OR HOSPICE SERVICES) PATIENT'S LOCATION: Linda Aceves [address] [place] [phone] (home) School Cleaner's Name: self/family In discussion with the attending physician, it is certified that this patient is under their care and that they, or a Nurse Practitioner,Clinical Nurse specialist or Physician Remote Computer Terminal Operator who is working directly with them, [...] managing ADL's. HOME HEALTH CARE AGENCY: [facility]. PHONE: [phone] FAX: [phone] Start of care: within 24 to 48 [...] obtained from this patient's PCP: Patricia Garza, CONTESTANT COORDINATOR [address] [facility] / [facility] [address] All VNA agencies which cover the area of patient's residence have been reviewed, either verbally timothy writing, and patient/family have chosen the home health care agency noted Questions: Agency name and contact information: [facility] Patient location post discharge: home What services are requested: Registered Nurse Physical Therapy Occupational Therapy Start date: Responsible MD post discharge contact info: Surgery and PCP Provider Contact Information: Primary Care Provider: Patricia Garza APRN [phone] Discharge References/Attachments: Discharge References/Attachments None For questions [...] a nurse in the Thoracic Clinic at [phone]. After hours or on weekends or holidays please call: [phone] and ask to speak to the Thoracic [...] please call the thoracic surgery clinic at [phone]. Driving: No driving for 1 week or [...] the Thoracic Clinic or the Thoracic Surgeon brazer production line after hours. Please take over the counter [...] Time Provider Department Center 08/16/2021 1:30 PM [facility] DX ROOM 8 Xray [facility] Rad documented in this encounter Medications [...] pt and daughter. Pt seen seen by biological technical officer, see note for details. Discharge instructions reviewed [...] referrals are placed. Patient requests referral to: [facility] [employer]. PHONE: [phone] FAX: [phone] Expected date of discharge: 08/16/2021 Referral routed to the Painter Rough for matching with agency/vendor and to provide any required information. Mayela Vidal (Jonas), RN RN/CM - Cellphone: [phone] Pager: [phone] Covering Service RN/CM * Donya Charlton RD [...] hospital course unless consulted in the interim. oDnya Charlton RD Pager: [phone] * Kwadwo Mosquera, PT - 08/16/2021 12:37 [...] 26.6) performed by Patrice Cárdenas MD at [facility] MAIN OR ??? PRO UPPER GI ENDOSCOPY, DIAGNOSTIC N/A 08/15/2021 EGD, UPPER GI ENDOSCOPY performed by Patrice Cárdenas MD at [facility] MAIN OR Social History: Home set-up: lives alone in a senior housing 2nd floor apt with elevator access. Daughter is going to stay a few days with her on d/c. Bathroom Set-up: walk in shower with grab bar and shower chair. Stairs: none, uses elevator. Baseline Mobility: walks with cane. Does not drive, likes to read and make cards; retired from [employer]. Equipment at home: rollator walker, cane, safety [...] abdominal pain. Vital Signs: Heart Rate: 87 (43=306 at rest, 106-136 with activity, end post rest 106.) BP: 132/84 SpO2: 92 % (91% with some SOB post activity, end 94%. ) O2 Device: None (Room air) Mental Status: alert, oriented to person, place, and time Vision: glasses multimedia instructional designer, but not here. Skin: small incisions [...] Physical Therapy: 27 KWADWO MOSQUERA, PT Pager: [phone] Physical Therapy Inpatient Rehabilitation Department * Elsy [...] REPAIR W/FUNDOPLASTY,W/O MESH (WRVU 26.6) performed by Patriec Cárdenas MD at [facility] MAIN OR ??? PRO UPPER GI ENDOSCOPY, DIAGNOSTIC N/A 08/15/2021 EGD, UPPER GI ENDOSCOPY performed by Patrice Cárdenas MD at [facility] MAIN OR Social History: Patient lives [...] NETWORK Vision & Perception: ?? corrective lenses multimedia instructional designer ?? glasses are not at hospital [...] will complete 2 grooming tasks at modified [place] standing/seated at the sink. Pt will complete toileting routine at [facility] including transfer to the bathroom, clothing management, and hygiene. Pt will complete UB bathing and dressing in sitting after set up. Pt will complete LB dressing at [facility] using AE as needed. Pt will complete functional transfers and mobility at [facility] for participation in (I)ADLs using self [...] and measurable assessment of functional outcome. Pager: [phone] Elsy Anderson OT 08/16/2021 Occupational Therapy Rehabilitation Department * Rolan Funez RN - 08/15/2021 5:58 PM EDT OUTCOME EVALUATION NOTE: OUTCOME SUMMARY: Linda arrived to [facility] at 1500 from PACU. Pt is A/Ox4 and VSS on 2L NC. Pt oriented to new room, admitted to [facility] and call harris within reach. Pt [...] Ahn MD - 08/15/2021 3:38 PM EDT [facility] Department of Thoracic Surgery Inpatient Post Op Check Note Patient Name: Linda Fuller Patient : [id number] Patient Patient Location: [address] [place] [address] Attending Surgeon: PATRICE CÁRDENAS ID: Linda Fuller [...] Encounter Date Admission (Current) from 08/15/[address] [place] [address] Office [place] [facility] [place] 61.8 kg (136 lb 4.8 oz) [...] PCR Invalid (A) Not Detected SARS-CoV-2 Source CIRCULAR KNIFE MACHINE CUTTER Swab Respiratory Panel PCR Specimen: Nasopharyngeal Swab Symptoms->Surveillance Result Value Ref Range Resp Panel Source CIRCULAR KNIFE MACHINE CUTTER Swab Resp Panel PCR Negative Negative Adenovirus [...] QTC Calculated (Bezet) 490 ms Calculated P [place] 81 degrees Calculated R [place] 32 degrees Calculated T [place] 53 degrees INTERPRETATION Sinus rhythm with Premature [...] Ahn MD 08/15/2021 Thoracic Surgery Service Pager [phone] * Mary Perez RN - 08/15/2021 12:19 [...] MANDY Luis 08/15/2021 Thoracic Surgery Service Pager [phone] documented in this encounter Miscellaneous Notes * [...] Operative Note Patient Name: Linda Fuller : [id number] MR#: [id number] Case Date: 08/15/2021 Surgeon: Surgeon(s) and Role: * Patrice Cárdenas MD - Primary * Ilan Robb PA - Physician Remote Computer Terminal Operator Preoperative diagnosis: Giant paraesophageal hernia Postoperative diagnosis: [...] SPECIMEN TO PATHOLOGY [place]ia sac [place] 11 [id number] Giant paraesophageal hernia Hernia sac excision No [...] dissection was used to identify the fascia. [place]'s were used on the fascia to lifted [...] closed using 0 Vicryl suture in a duirzr-to-axssg fashion using a Mina Lara needle. Patient was placed supine and the gas was evacuated from the abdominal cavity and the ports were removed. The midline incision was closed with interrupted 0 Vicryl sutures under direct visualization. The wounds were then all irrigated and closed with a 3-0 Vicryl jourdan dermal fashion and Dermabond for the skin. MANDY Clark was my review assistant during the entire procedure since no [...] 9:48 AM EDT Upper GI Endoscopy, Diagnostic ([id number]) Yes 08/15/2021 7:35 AM EDT Hiatal hernia MODIFIER ROBOT,DAVINCI XI Yes 08/15/2021 7:35 AM EDT Hiatal hernia Laparoscopy Repair Paraesophageal Hernia Incl Fundoplasty W/O Mesh ([id number]) Yes 08/15/2021 7:35 AM EDT Hiatal hernia RAPID COVID-19 PCR ([facility]/APD/NL) Routine 08/15/2021 7:13 AM EDT RESPIRATORY [...] who have questions please contact the health in home caregiver that requested your imaging first. ? Electronically signed by: Law Galo MD, [facility] ([phone]), at 08/30/2021 1:05 PM Narrative 08/30/2021 1:05 [...] patients who have questions please contactthe health in home caregiver that requested your imaging first. Electronically signed by: Law Galo MD, [facility]([phone]), at 08/30/2021 1:05 PM Patrice Cárdenas MD [...] who have questions please contact the health in home caregiver that requested your imaging first. ? Electronically signed by: Law Galo MD, [facility] ([phone]), at 08/16/2021 2:59 PM Narrative 08/16/2021 2:59 PM EDT EXAMINATION: XR FLUORO BARIUM SWALLOW (DOUBLE CONTRAST) CLINICAL HISTORY: s/p PEHR repair - please eval for recurrence TECHNIQUE: Single contrast esophagram was performed using 50 cc Omnipaque 300. Product Marketing Coordinator AP radiograph of the lower chest/upper abdomen was obtained. COMPARISON: Barium swallow 04/26/2021 FINDINGS: Product Marketing Coordinator radiograph demonstrates mild linear atelectasis at the [...] was obtained. COMPARISON: Barium swallow 04/26/2021 FINDINGS: Product Marketing Coordinator radiograph demonstrates mild linear atelectasis at the [...] patients who have questions please contactthe health in home caregiver that requested your imaging first. Electronically signed by: Law Galo MD, [facility]([phone]), at 08/16/2021 2:59 PM Patrice Cárdenas MD IMG FLUORO ORDERABLE S * EKG 12 Lead (08/15/2021 12:17 PM EDT) Ventricular rate 70 BPM MUSE SYSTEM Atrial Rate 70 BPM MUSE SYSTEM P-R Interval 208 ms MUSE SYSTEM QRS Duration 90 ms MUSE SYSTEM Q-T Interval 454 ms MUSE SYSTEM QTC Calculated (Bezet) 490 ms MUSE SYSTEM Calculated P [place] 81 degrees MUSE SYSTEM Calculated R [place] 32 degrees MUSE SYSTEM Calculated T [place] 53 degrees MUSE SYSTEM INTERPRETATION Sinus rhythm [...] Report (08/15/2021 9:48 AM EDT) Final Diagnosis [id number] ? Location: [facility]; [facility]; A The signing pathologist has (i) examined the relevant preparation(s) for the specimen(s) and (ii) rendered or confirmed the diagnosis(es). . ?Surgical Pathology DIAGNOSIS A - Fibromembranous tissue, hernia sac: Gross surgical pathology examination. Electronically signed by: ?Hayley Echavarria MD Verified: ??08/19/2021 20:48 ??Pathologist Performed at: ??-[facility] [place]. [place], [place], [place] SPECIMEN(S) SUBMITTED A - Hernia sac, excision (1) CLINICAL INFORMATION clinically giant paraesophageal hernia SPECIMEN PROCESSING A - Labeled/Fixative: Hernia sac, fresh. Quantity/Size: Two, aggregating 8.4 x 5.3 x 0.3 cm. Tissue Description: Adame-pink fibromembranous tissue. Sections/Processin g: No sections submitted, gross diagnosis only ??pps 08/19/2021 8:48 PM EDT [facility] HERNIA SAC / Unknown 08/15/2021 9:48 AM EDT 08/15/2021 9:48 AM EDT Patrice Cárdenas MD PATHOLOGY/CYTOLOGY O RDERABLES [facility] [place] [place] [address] * Specimen to Pathology (08/15/2021 9:48 AM EDT) AP Specimen 08/15/2021 9:48 AM EDT 08/15/2021 9:48 AM EDT Narrative [facility] - 08/15/2021 9:48 AM EDT Specimen requisition ordered. ??Separate Pathology report to follow Patrice Cárdenas MD PATHOLOGY/CYTOLOGY O RDERABLES [facility] [place] [address] * Respiratory Panel PCR (08/15/2021 7:13 AM EDT) Respiratory Panel Source CIRCULAR KNIFE MACHINE CUTTER Swab [facility] Respiratory Panel PCR Negative Negative [facility] Comment: Respiratory Panels are performed on the NPR, using multiplexed PCR nucleic acid detection. ??Negative results do not preclude respiratory infection and should not be used as the sole basis for diagnosis, treatment or other management decisions. Adenovirus Not Detected Not Detected [facility] Coronavirus HKU1 Not Detected Not Detected [facility] Coronavirus NL63 Not Detected Not Detected [facility] Coronavirus 229E Not Detected Not Detected [facility] Coronavirus OC43 Not Detected Not Detected [facility] SARS-CoV-2 Not Detected Not Detected [facility] Comment: Testing for SARS-CoV-2 (Severe acute respiratory syndrome coronavirus 2) to aid in the diagnosis of COVID-19 is performed using the BioFire Respiratory Panel 2.1 (Zipcar) as authorized by the FDA issued Emergency Use Authorization (EUA). This panel also tests for multiple other viral and bacterial pathogens. This assay is intended for In-vitro Diagnostic (IVD) use with nasopharyngeal swabs in viral transport media. The assay is performed based on the instructions for use and additional guidance provided by the FDA. Testing is performed in laboratories within the [facility], each of which is certified under the [...] fact sheets at the following FDA website: https://www.fda.gov/medical-devices/aroenxcavji-rsyoymt-2371-xbmbs-97-vpyuycckk- use-a iquxyjmyytqml-dupxdrw-aguoxcz/hnguk-hjzchpeibpe-vwgo Human Metapneumovirus Not Detected Not Detected [facility] Human Rhinovirus/Enterov irus Not Detected Not Detected [facility] Influenza A Not Detected Not Detected [facility] Influenza B Not Detected Not Detected [facility] Parainfluenza 1 Not Detected Not Detected [facility] Parainfluenza 2 Not Detected Not Detected [facility] Parainfluenza 3 Not Detected Not Detected [facility] Parainfluenza 4 Not Detected Not Detected [facility] Respiratory Syncytial Virus Not Detected Not Detected [facility] Chlamydophila pneumoniae Not Detected Not Detected [facility] Mycoplasma pneumoniae Not Detected Not Detected [facility] Nasopharyngeal Swab Other / Unknown 08/15 7:13 AM EDT 08/15/2021 8:19 AM EDT Comment:Symptoms->Surveillan ce Narrative Resulting Agency Comment Spec In Lab Ilan GALVAN MICROBIOLOGY - GENER AL ORDERABLES [facility] [place] [place] [address] * (ABNORMAL) COVID-19 PCR (08/15/2021 7:13 AM EDT) SARS-CoV-2 RNA (Rapid) Invalid( A) Not Detected [facility] Comment: This result should be [...] using the Simplexa COVID-19 Direct Assay by Minilogs as authorized by the FDA issued Emergency [...] Department of Pathology and Laboratory Medicine at [facility], certified under the Clinical Laboratory Improvement [...] fact sheets at the following FDA website: https://www.fda.gov/medical-devices/bnsrtorwaew-qzdgmmf-9971-hxaey-88-sqlembsia- use-a acshfnfkqprht-jtmkzah-aqrcdyw/cgnkw-rjkachhbhnm-fnkc SARS-CoV-2 Source CIRCULAR KNIFE MACHINE CUTTER Swab [place] [facility] Nasopharyngeal Swab 08/15/20 7:13 AM EDT 08/15/2021 8:19 AM EDT Comment:Symptoms->Surveillan ce Narrative Resulting Agency Comment Spec In Lab Patrice Cárdenas MD MICROBIOLOGY - GENER AL ORDERABLES Performing Organization Address City/[facility]/ZIP Co de Phone Number [facility] [place] [place] [address] * POCT Glucose (08/15/2021 6:34 AM EDT) Glucose, POC 95 65 - 199 mg/dL [facility] Comment: Supplemental ranges: <140 mg/dL before meals <180 mg/dL all other times of the day Blood 08/15/2021 6:34 AM EDT 08/15/2021 6:34 AM EDT Patrice Cárdenas MD POINT OF CARE TEST O RDERABLES Performing Organization Address City/[facility]/ZIP Co de Phone Number [facility] [place] [address] documented in this encounter Visit Diagnoses Diagnosis [...] subcutaneous injection 5,000 Units 5,000 Units, Subcutaneous, CABLE DISPATCHER TO O.R., 1 dose, On Sun08/15/21 at [...] 50 mL infusion (COMPLETED) 900 mg, Intravenous, CABLE DISPATCHER TO O.R., 1 dose, On Sun08/15/21 at [...] injection 5,000 Units (COMPLETED) 5,000 Units, Subcutaneous, CABLE DISPATCHER TO O.R., 1 dose, On Sun08/15/21 at [...] Provid er: Rosemary Varner - Comment: Apr [id number]) ipratropium (Atrovent) 0.02 % nebulizer solution 0.5 [...] documented as of this encounter Care Teams Fruit Washer Relationship Specialty Start Date End Date Patricia Garza APRN [address] [place] [address] PCP - General Internal Medicine 04/02/20 documented as of this encounter
--- OUTSIDE RECORDS SUMMARY | 2024-11-05 18:46 | XMS_ITS | Encounter Summary ---
[place] [address] Care Team Providers Care Janitor Supervisor Name Role Phone Patricia Garza APRN Primary Care Provider [phone] Encounter Details Date Type Department Care Team (Latest Contact Info) Description 08/17/2021 Transcribe [place] [address] Lizzette Mccarty MD Pre-operative cardiovascular examination (Primary [...] Primary documented in this encounter Care Teams Janitor Supervisor Relationship Specialty Start Date End Date Patricia Garza APRN [address] [place] [address] PCP - General Internal Medicine 04/02/20 documented as of this encounter
--- OUTSIDE RECORDS SUMMARY | 2024-11-05 18:47 | XMS_ITS | Encounter Summary ---
[place] [address] Care Team Providers Care Electrode Cleaning Machine Operator Name Role Phone Patricia Garza APRN Primary Care Provider Encounter Details Date Type Department Care Team (Late st Contact Info) Description 04/27/2021 Telephone [place] [address] Juan Stovall Social History Tobacco Use Types [...] calls can be handled by: Motility Lab Shipmaster documented in this encounter Plan of Treatment Not on file documented as of this encounter Visit Diagnoses Not on filedocumented in this encounter Care Teams Electrode Cleaning Machine Operator Relationship Specialty Start Date End Date Patricia Garza, LAZARA [address] [place] [address] PCP - General Internal Medicine 04/02/20 documented as of this encounter
--- OUTSIDE RECORDS SUMMARY | 2024-11-05 18:47 | XMS_ITS | Encounter Summary ---
[place] [address] Care Team Providers Care Candy Rolling Machine Operator Name Role Phone Patricia Garza APRN Primary Care Provider Encounter Details Date Type Department Care Team (Late st Contact Info) Description 12/03/2020 [place]phone [place] [address] Juan Stovall Social History Tobacco Use Types [...] can be handled by: Any motility lab wildlife biology technician. documented in this encounter Plan of Treatment Not on file documented as of this encounter Visit Diagnoses Not on filedocumented in this encounter Care Teams Candy Rolling Machine Operator Relationship Specialty Start Date End Date Patricia Garza APRN [address] [place] [address] PCP - General Internal Medicine 04/02/20 documented as of this encounter
--- OUTSIDE RECORDS SUMMARY | 2024-11-05 18:47 | XMS_ITS | Encounter Summary ---
Author Organization [facility] Address [facility] [place] [address] Care Team Providers Care Conche Loader And Unloader Name Role Phone Patricia Garza APRN Primary Care Provider [phone] Reason for Visit * Reason Comments Follow-up Encounter Details Date Type Department Care Team (Late st Contact Info) Description 06/07/2021 2:00 PM EDT Office [place] [phone] Patrice Cárdenas MD [facility] [place] [address] Atrial fibrillation, unspecified type; Hiatal hernia Social [...] and drinking. Your procedure will occur in radiator tester area 4W. A paraesophageal hernia is when [...] the surgeon to operate in small and [id number] places in the chest cavity, and to [...] at home before you are discharged : [id number] mg alternate with ibuprofen 200 mg (2-3 [...] Outpatient Follow Up Note Patrice Cárdenas MD [place] [address] FAX: Pre Op Dx: Large paraesophageal hernia [...] -- she had one at [facility] within the last 2-3 years and we [...] EDT) Glucose 96 65 - 199 mg/dL [facility] Comment:Diabetes: >=200 mg/d L plus symptoms Blood Urea Nitrogen 21(H) 8 - 18 mg/dL [facility] Creatinine 1.05 0.70 - 1.20 mg/dL [facility] Sodium 139 135 - 145 mmol/L [facility] Potassium 3.7 3.5 - 5.0 mmol/L [facility] Comment: Please note: ??Patients with WBC >100,000 may have falsely elevated Potassium levels. ??For accurate Potassium quantification in these patients send serum separator tube (gold top) for subsequent determinations. ??Contact the Clinical Chemistry Laboratory if there are any questions. Chloride 104 98 - 107 mmol/L [facility] Carbon Dioxide 28 22 - 31 mmol/L [facility] Anion Gap 7 5 - 15 mmol/L [facility] Calcium 8.8 8.5 - 10.5 mg/dL [facility] Protein, Total 6.4 6.1 - 8.0 g/dL [facility] Albumin 4.0 3.2 - 5.2 g/dL [facility] Aspartate Aminotransferase 9 0 - 30 unit/L [facility] Alanine Aminotransferase 9 0 - 30 unit/L [facility] Alkaline Phosphatase 65 35 - 105 unit/L [facility] Bilirubin, Total 0.2 0.2 - 1.3 mg/dL [facility] Est Glomerular Filtration Rate 49(L) >=60 mL/min/1. 73 m?? [facility] [...] Cárdenas MD CHEMISTRY ORDERABLES Performing Organization Address City/State/[facility] Co de Phone Number [facility] [place] [address] * (ABNORMAL) Differential, Automated (06/07/2021 2:42 PM EDT) Neutrophil % 67.5 % [facility] Neutrophil Absolute 5.30 1.70 - 6.10 x10(3)/mc L [facility] Lymph % 20.2 % [facility] Lymphocytes Abs 1.6 0.9 - 3.2 x10(3)/mc L [facility] Monocyte % 8.4 % [facility] Monocyte Abs 0.7 0.3 - 0.9 x10(3)/[facility] Eos % 2.3 % [facility] Eosinophils Abs 0.2 0.0 - 0.4 x10(3)/[facility] Basophil % 0.8 % [facility] Baso Absolute 0.1 0.0 - 0.1 x10(3)/[facility] Immature Gran % 0.80 % [facility] Comment: Immature granulocytes(IG's)percentage and absolute count will include metamyelocytes, myelocytes, and promyelocytes. Blood smears from CBCs yielding IG's will be scanned manually for concordance. If this scan disagrees with the automated IG or if promyelocytes are noted, a manual differential will be performed. Immature Gran Absolute 0.06(H) 0.00 - 0.04 x10(3)/[facility] Blood 06/07/2021 2:42 PM EDT 06/07/2021 2:47 PM EDT Narrative Resulting Agency Comment Spec In Lab Patrice Cárdenas MD HEMATOLOGY ORDERABLE S [facility] [place] [address] * Hemogram (06/07/2021 2:42 PM EDT) White Blood Cell 7.8 4.0 - 9.5 x10(3)/[facility] Red Blood Cell 4.71 4.00 - 5.21 x10(6)/[facility] Hemoglobin 14.5 11.7 - 15.5 gm/dL [facility] Hematocrit 42.6 35.7 - 45.8 % [facility] Mean Cell Volume 90.4 82.6 - 94.4 fL [facility] Mean Cell Hemoglobin 30.8 27.1 - 32.0 pg [facility] Mean Cell Hemoglobin Concentration 34.0 31.7 - 35.0 gm/dL [facility] Platelet 318 145 - 357 x10(3)/[facility] RDW Standard Deviation 43.6 37.0 - 46.0 fL [facility] RDW coefficient of variation 13.2 11.5 - 14.1 % [facility] Mean Platelet Volume 9.4 7.6 - 12.9 fL [facility] NRBC% auto 0.0 % [facility] NRBC Absolute 0.000 0.000 - 0.000 x10(3)/[facility] Blood 06/07/2021 2:42 PM EDT 06/07/2021 2:47 PM EDT Narrative Resulting Agency Comment Spec In Lab Patrice Cárdenas MD HEMATOLOGY ORDERABLE S [facility] [place] [address] * (ABNORMAL) Comprehensive metabolic panel (non-fasting) (06/07/2021 2:42 PM EDT) Glucose 94 65 - 199 mg/dL [facility] Comment:Diabetes: >=200 mg/d L plus symptoms Blood Urea Nitrogen 28(H) 8 - 18 mg/dL [facility] Creatinine 1.35(H) 0.70 - 1.20 mg/dL [facility] Sodium 140 135 - 145 mmol/L [facility] Potassium 4.2 3.5 - 5.0 mmol/L [facility] Comment: Please note: ??Patients with WBC >100,000 may have falsely elevated Potassium levels. ??For accurate Potassium quantification in these patients send serum separator tube (gold top) for subsequent determinations. ??Contact the Clinical Chemistry Laboratory if there are any questions. Chloride 104 98 - 107 mmol/L [facility] Carbon Dioxide 25 22 - 31 mmol/L [facility] Anion Gap 11 5 - 15 mmol/L [facility] Calcium 9.0 8.5 - 10.5 mg/dL [facility] Protein, Total 6.8 6.1 - 8.0 gm/dL [facility] Albumin 4.3 3.2 - 5.2 gm/dL [facility] Aspartate Aminotransferase Not Perf 0 - 30 [facility] Comment:Unable to quantitate due to sample hemolysis. Sample redraw suggested. Alanine Aminotransferase 12 0 - 30 unit/L [facility] Alkaline Phosphatase 67 35 - 105 unit/L [facility] Bilirubin, Total 0.3 0.2 - 1.3 mg/dL [facility] Est Glomerular Filtration Rate 36(L) >=60 mL/min/1. 73 m?? [facility] [...] CHEMISTRY ORDERABLES [facility] [place] [address] documented in this encounter Visit Diagnoses Diagnosis Atrial fibrillation, unspecified type Hiatal hernia Diaphragmatic hernia without mention of obstruction or gangrene documented in this encounter Care Teams Conche Loader And Unloader Relationship Specialty Start Date End Date Patricia Garza APRN [address] [place] [address] PCP - General Internal Medicine 04/02/20 documented as of this encounter
--- OUTSIDE RECORDS SUMMARY | 2024-11-05 18:47 | XMS_ITS | Encounter Summary ---
[place] [address] Care Team Providers Care Driver'S License Reviewing Officer Name Role Phone Patricia Garza APRN Primary Care Provider Reason for Referral * Diagnostic Test (Routine) - Closed Specialty Diagnoses / Procedures Referred By Contac t Referred To Contact Radiology Diagnoses History of cardioembolic cerebrovascular accident (CVA) Atrial fibrillation, unspecified type Procedures CT Angiogram Coronary Arteries Lizzette Mccarty MD [address] [place] [address] [place] [address] [facility] [place] [address] Referral ID Status Reason Start Date Expiration Date V isits Requested Visits Authorized [id number] Closed Specialty Service Requested 07/26/2021 01/23/2023 1 1 Reason for Visit * Diagnostic Test (Routine) - Closed Specialty Diagnoses / Procedures Referred By Contac t Referred To Contact Radiology Diagnoses History of cardioembolic cerebrovascular accident (CVA) Atrial fibrillation, unspecified type Procedures CT Angiogram Coronary Arteries Lizzette Mccarty MD [address] [place] [address] [place] [address] [facility] [place] [address] Referral ID Status Reason Start Date Expiration Date V isits Requested Visits Authorized [id number] Closed Specialty Service Requested 07/26/2021 01/23/2023 1 1 Encounter Details Date Type Department Care Team (Latest Contact Info) Description 08/05/2021 11:44 AM EDT - 08/05/2021 11:59 PM EDT Hospital [place] [address] Lizzette Mccarty MD [address] [place] [address] [place] [address] History of cardioembolic cerebrovascular accident (CVA); Atrial [...] who have questions please contact the health director of medicare that requested your imaging first. ? Electronically signed by: Loni Issa MD, [facility] ([phone]), at 08/07/2021 9:50 AM Narrative 08/07/2021 9:50 AM EDT EXAMINATION: CT [...] patients who have questions please contactthe health director of medicare that requested your imaging first. Lizzette Mccarty [...] mLs documented in this encounter Care Teams Driver'S License Reviewing Officer Relationship Specialty Start Date End Date Patricia Garza APRN [address] [place] [address] PCP - General Internal Medicine 04/02/20 documented as of this encounter
--- OUTSIDE RECORDS SUMMARY | 2024-11-05 18:47 | XMS_ITS | Encounter Summary ---
Author Organization [facility] [place] [address] Care Team Providers Care [facility] Name Role Phone Patricia Garza APRN Primary Care Provider Reason for Referral * Consultation (Urgent) - Closed Specialty Diagnoses / Procedures Referred By Contac t Referred To Contact Gastroenterology Diagnoses Hiatal hernia [facility] - HH Procedures HIGH RESOLUTION ESOPHAGEAL MANOMETRY [facility] - HH Patrice Cárdenas MD [facility] [place] [address] [facility] [address] [place] [address] Referral ID Status Reason Start Date Expiration Date V isits Requested Visits Authorized [id number] Closed Test Only 04/26/2021 04/26/2022 1 1 Reason for Visit * Reason Comments Hiatal Hernia Encounter Details Date Type Department Care Team (Late st Contact Info) Description 04/26/2021 2:45 PM EDT Office [place] [address] Patrice Cárdenas MD [facility] [address] [place] [address] Hiatal hernia; Cerebrovascular accident (CVA) [...] esophageal motility than conventional techniques. Esophageal manometry ([id number]) is a test that shows whether your [...] Outpatient Follow Up Note Patrice Cárdenas MD [place] [address] FAX: Pre Op Dx: Large paraesophageal hernia [...] Outpatient Follow Up Note Patrice Cárdenas MD [place] [address] FAX: Pre Op Dx: Large paraesophageal hernia [...] artery documented in this encounter Care Teams [facility] Relationship Specialty Start Date End Date Patricia Garza APRN [address] [place] [address] PCP - General Internal Medicine 04/02/20 documented as of this encounter
--- OUTSIDE RECORDS SUMMARY | 2024-11-05 18:47 | XMS_ITS | Encounter Summary ---
Author Organization [facility] [place] [id number] Care Team Providers Care Lean Specialist Name Role Phone Patricia Garza APRN Primary Care Provider [phone] Reason for Referral * Consultation (Routine) - Duplicate Referral Specialty Diagnoses / Procedures Referred By Contac t Referred To Contact Gastroenterology Diagnoses Hiatal hernia Hal Marroquin MD [facility] [place] [address] [facility] [address] [place] [address] Referral ID Status Reason Start Date Expiration Date Visits Requested Visits Authorized [id number] Duplicate Referral Test Only 03/14/2021 03/14/2022 1 1 * Diagnostic Test (Routine) - Closed Specialty Diagnoses / Procedures Referred By Contac t Referred To Contact Radiology Diagnoses Hiatal hernia Procedures XR Fluoro Barium Swallow (Single Contrast) Hal Marroquin MD [facility] [place] [address] [facility] Rad Xray [address] [place] [address] [place] [address] Referral ID Status Reason Start Date Expiration Date V isits Requested Visits Authorized [id number] Closed Specialty Service Requested 03/14/2021 09/14/2022 1 1 * Rehabilitation (Routine) - Closed Specialty Diagnoses / Procedures Referred By Amanuel t Referred To Contact Pulmonology Diagnoses Hiatal hernia Hal Marroquin MD [facility] [place] [address] [facility] [place] [address] Referral ID Status Reason Start Date Expiration Date V isits Requested Visits Authorized [id number] Closed Evaluate and Treat 03/14/2021 03/14/2022 36 36 Encounter Details Date Type Department Care Team (Late st Contact Info) Description 03/14/2021 Orders [place] [address] Livier Chaney RN Hiatal hernia Social History [...] who have questions please contact the health hospice patient care secretary that requested your imaging first. ? 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 TECHNIQUE: Single contrast esophagram was performed. Fluoroscopic spot films were obtained. Fluoro time: 2.30 minutes COMPARISON: CT chest abdomen pelvis 01/10/2020 FINDINGS: Human Anatomy Teacher images demonstrate clear lungs. No effusion or [...] COMPARISON: CT chest abdomen pelvis 01/10/2020 FINDINGS: Human Anatomy Teacher images demonstrate clear lungs. No effusion or [...] patients who have questions please contactthe health hospice patient care secretary that requested your imaging first. Hal Marroquin MD IMG FLUORO ORDERABLE S documented in this encounter Visit Diagnoses Diagnosis Hiatal hernia Diaphragmatic hernia without mention of obstruction or gangrene Hiatal hernia Diaphragmatic hernia without mention of obstruction or gangrene documented in this encounter Care Teams Lean Specialist Relationship Specialty Start Date End Date Patricia Garza APRN [address] [place] [address] PCP - General Internal Medicine 04/02/20 documented as of this encounter
--- OUTSIDE RECORDS SUMMARY | 2024-11-05 18:47 | XMS_ITS | Encounter Summary ---
[place] [address] Care Team Providers Care Beef Grader Name Role Phone Patricia Garza APRN Primary Care Provider [phone] Encounter Details Date Type Department Care Team (Late st Contact Info) Description 06/08/2021 Telephone [place] [phone] Jennifer Lloyd Social History Tobacco Use Types Packs/Day Years [...] PM EDT Stress test order faxed to [facility] per pt request [phone] documented in this encounter Plan of Treatment Not on file documented as of this encounter Visit Diagnoses Not on filedocumented in this encounter Care Teams Beef Grader Relationship Specialty Start Date End Date Patricia Garza APRN [address] [place] [address] PCP - General Internal Medicine 04/02/20 documented as of this encounter
--- OUTSIDE RECORDS SUMMARY | 2024-11-05 18:47 | XMS_ITS | Encounter Summary ---
[place] [address] Care Team Providers Care Chief Quality Officer Name Role Phone Patricia Garza APRN Primary Care Provider [phone] Encounter Details Date Type Department Care Team (Late st Contact Info) Description 04/12/2020 Telephone [place]ematology [place] [phone] Carey Shah, GUME Social History Tobacco Use [...] symptomatic you will need to wear a [facility]-issued mask. PHONE SCREENING: ??? In order for [...] filedocumented in this encounter Care Teams Chief Quality Officer Relationship Specialty Start Date End Date Patricia Garza APRN [address] [place] [address] PCP - General Internal Medicine 04/02/20 documented as of this encounter
--- OUTSIDE RECORDS SUMMARY | 2024-11-05 18:47 | XMS_ITS | Encounter Summary ---
[place] [address] Care Team Providers Care Operations Welder Name Role Phone Patricia Garza APRN Primary Care Provider Reason for Visit * Auth/Cert Specialty Diagnoses / Procedures Referred By Amanuel centeno Referred To Contact Diagnoses Paraesophageal hernia Atrial fibrillation with rapid ventricular response Postoperative vomiting Referral ID Status Reason Start Date Expiration Date Visits Re quested Visits Authorized [id number] 1 1 Encounter Details Date Type Department Care Team (Late st Contact Info) Description 08/15/2021 7:30 AM EDT - 08/15/2021 12:15 PM EDT [place] [id number] Patrice Cárdenas MD [facility] [place] [address] ROBOT XI LAPAROSCOPIC PARAESOPHAGEAL HERNIA REPAIR W/FUNDOPLASTY,W/O [...] Primary * Ilan Robb PA - Physician Genetic Counsellor Procedure: Procedure(s): ROBOT XI LAPAROSCOPIC PARAESOPHAGEAL HERNIA [...] Hospital Course: Linda Fuller was admitted to [facility] on 1via the Same Day Program. She [...] who have questions please contact the health disabilities caregiver that requested your imaging first. Pending Studies [...] a nurse in the Thoracic Clinic at [phone]. After hours or on weekends or holidays please call: [phone] and ask to speak to the Thoracic Surgeon operations research group manager. Exercise & Activity Level: As you [...] please call the thoracic surgery clinic at [phone]. Driving: No driving for 1 week or [...] the Thoracic Clinic or the Thoracic Surgeon operations research group manager after hours. Please take over the [...] Time Provider Department Center 08/16/2021 1:30 PM [facility] DX ROOM 8 Xray [facility] Rad General Instructions None Future Appointments and Orders Future Orders Complete By Expires XR Chest PA & Lateral (Generic) [[id number] Custom] 08/30/2021 08/16/2022 Process Instructions: Scheduling Instructions: Questions: Where will study be performed?: [facility] Radiology Portable exam?: Reason for exam and clinical history: s/p robotic PEHR Clinical information / pimentel questions: recurrence, PTX, effusion, comparison, changes Stat read required?: Date of injury if applicable: Requested Time: Referral to Home Health - at DISCHARGE [[id number] CPT(R)] As directed Process Instructions: Scheduling Instructions: Comments: DOCUMENTATION FOR VNA SERVICES (INCLUDING THOSE PATIENTS WITH MEDICARE COVERAGE REQUIRING HOME VNA SERVICES AND/OR HOSPICE SERVICES) PATIENT'S LOCATION: Linda Fuller [address] [place] [address] (home) Geosciences Associate Professor's Name: self/family In discussion with the attending physician, it is certified that this patient is under their care and that they, or a Nurse Practitioner,Clinical Nurse specialist or Physician Genetic Counsellor who is working directly with them, had [...] for managing ADL's. HOME HEALTH CARE AGENCY: [facility]. PHONE: [phone] FAX: [phone] Start of care: within 24 to 48 [...] obtained from this patient's PCP: Patricia Garza, ASP NET PROGRAMMER [address] [facility] [place] [facility] [place] [address] All VNA agencies which cover the area of patient's residence have been reviewed, either verbally timothy writing, and patient/family have chosen the home health care agency noted Questions: Agency name and contact information: [facility] Patient location post discharge: home What services are requested: Registered Nurse Physical Therapy Occupational Therapy Start date: Responsible MD post discharge contact info: Surgery and PCP Provider Contact Information: Primary Care Provider: Patricia Garza APRN [phone] Discharge References/Attachments: Discharge References/Attachments None For questions regarding this document or issues relating to this hospitalization on the Thoracic Surgery Service, please contact Dr. Cárdenas's office at . Signed: MANDY Castro 08/16/2021 CC: PCP: Patricia Garza, ASP NET PROGRAMMER Referring: No referring provider defined for this [...] a nurse in the Thoracic Clinic at [phone]. After hours or on weekends or holidays please call: [phone] and ask to speak to the Thoracic [...] please call the thoracic surgery clinic at [phone]. Driving: No driving for 1 week or [...] the Thoracic Clinic or the Thoracic Surgeon operations research group manager after hours. Please take over the [...] Time Provider Department Center 08/16/2021 1:30 PM [facility] DX ROOM 8 Xray [facility] Rad documented in this encounter Medications [...] pt and daughter. Pt seen seen by product marketing executive, see note for details. Discharge instructions reviewed [...] referrals are placed. Patient requests referral to: [facility]. PHONE: [phone] FAX: [phone] Expected date of discharge: 08/16/2021 Referral routed to the Cub Reporter for matching with agency/vendor and to provide any required information. Mayela Vidal RN RN (Jonas)/SHANNON - Cellphone: [phone] Pager: [phone] Covering Service RN/CM * Donya Charlton RD [...] in the interim. Donya Charlton RD Pager: [phone] * Kwadwo Mosquera, PT - 08/16/2021 12:37 [...] 26.6) performed by Patrice Cárdenas MD at [facility] MAIN OR ??? PRO UPPER GI ENDOSCOPY, DIAGNOSTIC N/A 08/15/2021 EGD, UPPER GI ENDOSCOPY performed by Patrice Cárdenas MD at [facility] MAIN OR Social History: Home set-up: lives alone in a senior housing 2nd floor apt with elevator access. Daughter is going to stay a few days with her on d/c. Bathroom Set-up: walk in shower with grab bar and shower chair. Stairs: none, uses elevator. Baseline Mobility: walks with cane. Does not drive, likes to read and make cards; retired from [employer] Equipment at home: rollator walker, cane, safety [...] abdominal pain. Vital Signs: Heart Rate: 87 (64=357 at rest, 106-136 with activity, end post rest 106.) BP: 132/84 SpO2: 92 % (91% with some SOB post activity, end 94%. ) O2 Device: None (Room air) Mental Status: alert, oriented to person, place, and time Vision: glasses time study technologist, but not here. Skin: small incisions from [...] Physical Therapy: 27 KWADWO MOSQUERA, PT Pager: [phone] Physical Therapy Inpatient Rehabilitation Department * Elsy [...] 26.6) performed by Patrice Cárdenas MD at [facility] MAIN OR ??? PRO UPPER GI ENDOSCOPY, DIAGNOSTIC N/A 08/15/2021 EGD, UPPER GI ENDOSCOPY performed by Patrice Cárdenas MD at [facility] MAIN OR Social History: Patient lives [...] Vision & Perception: ?? corrective lenses time study technologist ?? glasses are not at hospital Communication: [...] complete functional transfers and mobility at modified [place] for participation in (I)ADLs using self pacing [...] and measurable assessment of functional outcome. Pager: [phone] Elsy Anderson OT 08/16/2021 Occupational Therapy Rehabilitation Department * Rolan Funez RN - 08/15/2021 5:58 PM EDT OUTCOME EVALUATION NOTE: OUTCOME SUMMARY: Linda arrived to [facility] at 1500 from PACU. Pt is A/Ox4 and VSS on 2L NC. Pt oriented to new room, admitted to [facility] and call harris within reach. Pt daughter [...] Ahn MD - 08/15/2021 3:38 PM EDT [facility] Department of Thoracic Surgery Inpatient Post Op Check Note Patient Name: Linda Fuller Patient : 1940 Patient Patient Location: [address] [place] [address] Attending Surgeon: PATRICE CÁRDENAS ID: Linda Fuller [...] Encounter Date Admission (Current) from 08/15/[address] [place] [address] Office Visit from 06/07/2021 in Thoracic Surgery at [facility] Weight 61.8 kg (136 lb 4.8 oz) [...] PCR Invalid (A) Not Detected SARS-CoV-2 Source SITE DIRECTOR Swab Respiratory Panel PCR Specimen: Nasopharyngeal Swab Symptoms->Surveillance Result Value Ref Range Resp Panel Source SITE DIRECTOR Swab Resp Panel PCR Negative Negative Adenovirus [...] QTC Calculated (Bezet) 490 ms Calculated P [place] 81 degrees Calculated R [place] 32 degrees Calculated T [place] 53 degrees INTERPRETATION Sinus rhythm with Premature [...] Ahn MD 08/15/2021 Thoracic Surgery Service Pager [phone] * Mary Perez RN - 08/15/2021 12:19 [...] MANDY Luis 08/15/2021 Thoracic Surgery Service Pager [phone] documented in this encounter Miscellaneous Notes * [...] Operative Note Patient Name: Linda Fuller : [id number] MR#: [id number] Case Date: 08/15/2021 Surgeon: Surgeon(s) and Role: * Patrice Cárdenas MD - Primary * Ilan Robb PA - Physician Genetic Counsellor Preoperative diagnosis: Giant paraesophageal hernia Postoperative diagnosis: [...] SPECIMEN TO PATHOLOGY Hernia sac OR 11 [id number] Giant paraesophageal hernia Hernia sac excision No [...] dissection was used to identify the fascia. [place]'s were used on the fascia to lifted [...] closed using 0 Vicryl suture in a ivaydi-im-jtxbn fashion using a Mina Lara needle. Patient was placed supine and the gas was evacuated from the abdominal cavity and the ports were removed. The midline incision was closed with interrupted 0 Vicryl sutures under direct visualization. The wounds were then all irrigated and closed with a 3-0 Vicryl jourdan dermal fashion and Dermabond for the skin. MANDY Clark was my bioinformatics assistant during the entire procedure since no [...] 9:48 AM EDT Upper GI Endoscopy, Diagnostic ([id number]) Yes 08/15/2021 7:35 AM EDT Hiatal hernia MODIFIER ROBOT,DAVINCI XI Yes 08/15/2021 7:35 AM EDT Hiatal hernia Laparoscopy Repair Paraesophageal Hernia Incl Fundoplasty W/O Mesh ([id number]) Yes 08/15/2021 7:35 AM EDT Hiatal hernia RAPID COVID-19 PCR ([facility]) Routine 08/15/2021 7:13 AM EDT RESPIRATORY PANEL [...] who have questions please contact the health disabilities caregiver that requested your imaging first. ? [...] patients who have questions please contactthe health disabilities caregiver that requested your imaging first. Patrice Cárdenas [...] who have questions please contact the health disabilities caregiver that requested your imaging first. ? Narrative 08/16/2021 2:59 PM EDT EXAMINATION: XR FLUORO BARIUM SWALLOW (DOUBLE CONTRAST) CLINICAL HISTORY: s/p PEHR repair - please eval for recurrence TECHNIQUE: Single contrast esophagram was performed using 50 cc Omnipaque 300. Floral Clerk AP radiograph of the lower chest/upper abdomen was obtained. COMPARISON: Barium swallow 04/26/2021 FINDINGS: Floral Clerk radiograph demonstrates mild linear atelectasis at the [...] was obtained. COMPARISON: Barium swallow 04/26/2021 FINDINGS: Floral Clerk radiograph demonstrates mild linear atelectasis at the [...] patients who have questions please contactthe health disabilities caregiver that requested your imaging first. Patrice Cárdenas MD IMG FLUORO ORDERABLE S * EKG 12 Lead (08/15/2021 12:17 PM EDT) Ventricular rate 70 BPM MUSE SYSTEM Atrial Rate 70 BPM MUSE SYSTEM P-R Interval 208 ms MUSE SYSTEM QRS Duration 90 ms MUSE SYSTEM Q-T Interval 454 ms MUSE SYSTEM QTC Calculated (Bezet) 490 ms MUSE SYSTEM Calculated P [place] 81 degrees MUSE SYSTEM Calculated R [place] 32 degrees MUSE SYSTEM Calculated T [place] 53 degrees MUSE SYSTEM INTERPRETATION Sinus rhythm [...] Report (08/15/2021 9:48 AM EDT) Final Diagnosis [id number] ? Location: [facility]; [facility]; The signing pathologist has (i) examined the relevant preparation(s) for the specimen(s) and (ii) rendered or confirmed the diagnosis(es). . ?Surgical Pathology DIAGNOSIS A - Fibromembranous tissue, hernia sac: Gross surgical pathology examination. Electronically signed by: ?Hayley Echavarria MD Verified: ??08/19/2021 20:48 ??Pathologist Performed at: ??-[facility] Dept. of Pathology, [place], [place] SPECIMEN(S) SUBMITTED A - Hernia sac, excision (1) CLINICAL INFORMATION clinically giant paraesophageal hernia SPECIMEN PROCESSING A - Labeled/Fixative: Hernia sac, fresh. Quantity/Size: Two, aggregating 8.4 x 5.3 x 0.3 cm. Tissue Description: Adame-pink fibromembranous tissue. Sections/Processin g: No sections submitted, gross diagnosis only ??pps 08/19/2021 8:48 PM EDT [facility] HERNIA SAC / Unknown 08/15/2021 9:48 AM EDT 08/15/2021 9:48 AM EDT Patrice Cárdenas MD PATHOLOGY/CYTOLOGY O RDERABLES [facility] [place] [address] * Specimen to Pathology (08/15/2021 9:48 AM EDT) AP Specimen 08/15/2021 9:48 AM EDT 08/15/2021 9:48 AM EDT Narrative [facility] - 08/15/2021 9:48 AM EDT Specimen requisition ordered. ??Separate Pathology report to follow Patrice Cárdenas MD PATHOLOGY/CYTOLOGY O RDERABLES [facility] [place] [address] * Respiratory Panel PCR (08/15/2021 7:13 AM EDT) Respiratory Panel Source SITE DIRECTOR Swab [facility] Respiratory Panel PCR Negative Negative [facility] Comment: Respiratory Panels are performed on the Neosens, using multiplexed PCR nucleic acid detection. ??Negative results do not preclude respiratory infection and should not be used as the sole basis for diagnosis, treatment or other management decisions. Adenovirus Not Detected Not Detected [facility] Coronavirus HKU1 Not Detected Not Detected [facility] Coronavirus NL63 Not Detected Not Detected [facility] Coronavirus 229E Not Detected Not Detected [facility] Coronavirus OC43 Not Detected Not Detected [facility] SARS-CoV-2 Not Detected Not Detected [facility] Comment: Testing for SARS-CoV-2 (Severe acute respiratory syndrome coronavirus 2) to aid in the diagnosis of COVID-19 is performed using the BioFire Respiratory Panel 2.1 ([employer]) as authorized by the FDA issued Emergency Use Authorization (EUA). This panel also tests for multiple other viral and bacterial pathogens. This assay is intended for In-vitro Diagnostic (IVD) use with nasopharyngeal swabs in viral transport media. The assay is performed based on the instructions for use and additional guidance provided by the FDA. Testing is performed in laboratories within the [facility], each of which is certified under [...] fact sheets at the following FDA website: https://www.fda.gov/medical-devices/bewjsdtgudq-yayxckg-8429-tmiqp-58-gljmtpdij- use-a ecuczhncsbovb-jruibzn-tqjwadp/mrzeu-xkpmhxkvkug-ttya Human Metapneumovirus Not Detected Not Detected [facility] Human Rhinovirus/Enterov irus Not Detected Not Detected [facility] Influenza A Not Detected Not Detected [facility] Influenza B Not Detected Not Detected [facility] Parainfluenza 1 Not Detected Not Detected [facility] Parainfluenza 2 Not Detected Not Detected [facility] Parainfluenza 3 Not Detected Not Detected [facility] Parainfluenza 4 Not Detected Not Detected [facility] Respiratory Syncytial Virus Not Detected Not Detected [facility] Chlamydophila pneumoniae Not Detected Not Detected [facility] Mycoplasma pneumoniae Not Detected Not Detected [facility] Nasopharyngeal Swab Other / Unknown 08/15 7:13 AM EDT 08/15/2021 8:19 AM EDT Comment:Symptoms->Surveillan ce Narrative Resulting Agency Comment Spec In Lab Ilan GALVAN MICROBIOLOGY - GENER AL ORDERABLES [facility] [place] [address] * (ABNORMAL) COVID-19 PCR (08/15/2021 7:13 AM EDT) SARS-CoV-2 RNA (Rapid) Invalid( A) Not Detected [facility] Comment: [...] using the Simplexa COVID-19 Direct Assay by [employer] as authorized by the FDA issued Emergency [...] Department of Pathology and Laboratory Medicine at [facility], certified under the Clinical Laboratory [...] fact sheets at the following FDA website: https://www.fda.gov/medical-devices/ayhtkdxhrny-zzjbcmb-8592-qbqon-05-zwjvhenbm- use-a xcgjwabdafgcl-flfzmeq-epozahs/nflms-nsovkttifpk-vmpv SARS-CoV-2 Source SITE DIRECTOR Swab [facility] Nasopharyngeal Swab 08/15/20 7:13 AM EDT 08/15/2021 8:19 AM EDT Comment:Symptoms->Surveillan ce Narrative Resulting Agency Comment Spec In Lab Patrice Cárdenas MD MICROBIOLOGY - GENER AL ORDERABLES Performing Organization Address [facility] Co de Phone Number [facility] [place] [address] * POCT Glucose (08/15/2021 6:34 AM EDT) Glucose, POC 95 65 - 199 mg/dL [facility] Comment: Supplemental ranges: <140 mg/dL before meals <180 mg/dL all other times of the day Blood 08/15/2021 6:34 AM EDT 08/15/2021 6:34 AM EDT Patrice Cárdenas MD POINT OF CARE TEST O RDERABLES Performing Organization Address [facility] Co de Phone Number [facility] [place] [address] documented in this encounter Visit Diagnoses Diagnosis [...] subcutaneous injection 5,000 Units 5,000 Units, Subcutaneous, INJURY/SAFETY HAZARD ASSESSMENT TO O.R., 1 dose, On Sun08/15/21 at [...] 50 mL infusion (COMPLETED) 900 mg, Intravenous, INJURY/SAFETY HAZARD ASSESSMENT TO O.R., 1 dose, On Sun08/15/21 at [...] injection 5,000 Units (COMPLETED) 5,000 Units, Subcutaneous, INJURY/SAFETY HAZARD ASSESSMENT TO O.R., 1 dose, On Sun08/15/21 at [...] Provid er: Rosemary Varner - Comment: Apr [id number]) ipratropium (Atrovent) 0.02 % nebulizer solution 0.5 [...] documented as of this encounter Care Teams Operations Welder Relationship Specialty Start Date End Date Patricia Garza APRN [address] [place] [address] PCP - General Internal Medicine 04/02/20 documented as of this encounter
--- OUTSIDE RECORDS SUMMARY | 2024-11-05 18:47 | XMS_ITS | Encounter Summary ---
[place] [address] Care Team Providers Care Senior Animal Trainer Name Role Phone Patricia Garza APRN Primary Care Provider [phone] Encounter Details Date Type Department Care Team (Late st Contact Info) Description 08/12/2021 Telephone [place] [id number] Livier Chaney, RN Social History Tobacco Use [...] on filedocumented in this encounter Care Teams Senior Animal Trainer Relationship Specialty Start Date End Date Patricia Garza APRN [address] [place] [address] PCP - General Internal Medicine 04/02/20 documented as of this encounter
--- OUTSIDE RECORDS SUMMARY | 2024-11-05 18:47 | XMS_ITS | Encounter Summary ---
[place] [address] Care Team Providers Care Lock Plater Name Role Phone Patricia Garza APRN Primary Care Provider [phone] Encounter Details Date Type Department Care Team (Late st Contact Info) Description 06/08/2021 Orders Only [place] [address] Livier Chaney RN Hiatal hernia; Atrial fibrillation, [...] examination documented in this encounter Care Teams Lock Plater Relationship Specialty Start Date End Date Patricia Garza APRN [address] [place] [address] PCP - General Internal Medicine 04/02/20 documented as of this encounter
--- OUTSIDE RECORDS SUMMARY | 2024-11-05 18:47 | XMS_ITS | Encounter Summary ---
Author Organization [facility] [place] [address] Care Team Providers Care Tool Design Draftsperson Name Role Phone Patricia Garza APRN Primary Care Provider [phone] Reason for Visit * Consultation (Urgent) - Closed Specialty Diagnoses / Procedures Referred By Contac t Referred To Contact Gastroenterology Diagnoses Hiatal hernia [facility] - HH Procedures HIGH RESOLUTION ESOPHAGEAL MANOMETRY [facility] - [facility] Hal Marroquin MD [facility] [place] [address] [facility] [address] [place] [address] Referral ID Status Reason Start Date Expiration Date V isits Requested Visits Authorized [id number] Closed Test Only 04/26/2021 04/26/2022 1 1 Encounter Details Date Type Department Care Team (Late st Contact Info) Description 05/23/2021 11:00 AM EDT Procedure visit Gastroenterology [place] [address] Hiatal hernia Social History Tobacco Use Types [...] MANOMETRY PROCEDURE NOTE Patient: Linda Fuller Address: [place] [address] : 1940 Date of service: 05/23/2021 Indication: [...] and proximal extent located at n/a cm. Mechanical Equipment Test Engineer swallow: Impressions based on [place] Classification v4.0: The catheter tip did not [...] MD, FRCPC Section of Gastroenterology and Hepatology [place] [address] [address] V: [phone] F: [phone] CC/EC: Patricia Garza APRN [address] [place] [address] documented in this encounter Plan of Treatment Scheduled Referrals Name Type Priority Associated Diagnoses Orde r Schedule REFERRAL TO ENDOSCOPY PROCEDURE Outpatient Referral Routine Hiatal hernia Ordered: 04/26/2021 documented as of this encounter Visit Diagnoses Diagnosis Hiatal hernia Diaphragmatic hernia without mention of obstruction or gangrene documented in this encounter Care Teams Tool Design Draftsperson Relationship Specialty Start Date End Date Patricia Garza APRN [address] [place] [address] PCP - General Internal Medicine 04/02/20 documented as of this encounter
--- OUTSIDE RECORDS SUMMARY | 2024-11-05 18:47 | XMS_ITS | Encounter Summary ---
Author [place] [address] Care Team Providers Care Configuration Management Manager Name Role Phone Patricia Garza APRN Primary Care Provider [phone] Encounter Details Date Type Department Care Team ([facility] st Contact Info) Description 05/03/2021 Telephone [place] [address] Merna Dunbar Social History Tobacco Use Types [...] MANOMETRY CLINICAL SAFETY CHECKLIST 05/03/2021 Merna Fuller [address] [place] [address] [address] [facility] [address] [id number] : 1940 REFERRING PROVIDER: PATRICE CÁRDENAS [[id number]] PRIMARY CARE PROVIDER: Patricia Garza APRN PRIMARY SYMPTOM (PROCEDURE INDICATION): other: SAFETY QUESTIONS HISTORY OF TRANSSPHENOIDAL OR PITUITARY SURGERY? no IF YES, please inform the patient that the test cannot be scheduled due to safety concerns about testing, and the patient should speak with their provider to consider alternative testing. The consumer recruiter should also contact the provider's office directly [...] other: Hiatal Hernia , RMD: PATRICE CÁRDENAS [[id number]], PCP: Patricia Garza APRN, wheelchair: No, blood thinners: Yes, allergy to lidocaine/benzocaine/novocaine: No (At exit, the RMD for appointment notes is the GI provider who saw the patient) documented in this encounter Plan of Treatment Not on file documented as of this encounter Visit Diagnoses Not on filedocumented in this encounter Care Teams Configuration Management Manager Relationship Specialty Start Date End Date Patricia Garza APRN [address] [place] [address] PCP - General Internal Medicine 04/02/20 documented as of this encounter
--- OUTSIDE RECORDS SUMMARY | 2024-11-05 18:47 | XMS_ITS | Encounter Summary ---
Author Organization [facility] [place] [address] Care Team Providers Care Plastic Parts Fabricator Trimmer Name Role Phone Patricia Garza APRN Primary Care Provider [phone] Encounter Details Date Type Department Care Team (Latest Contact Info) Description 09/04/2020 8:34 PM EST - 09/04/2020 11:59 PM EST [place] [phone] Discharge Disposition: Home Social History Tobacco Use [...] EST) SARS-CoV-2 RNA Detected (A) Not Detected [facility] Comment: [...] on the instructions for use provided by [employer] and additional guidance provided by CDC and FDA. Testing is performed in the Clinical Genomics and Advanced Technology Laboratory within the Department of Pathology and Laboratory Medicine at [facility], certified under the Clinical [...] fact sheets at the following FDA website: https://www.fda.gov/medical-devices/wlzgjyyxojw-ibthkaj-9183-zcwop-47-jqdpzrwkg- use-a lcvrzowioepbi-cfncvji-ugftqex/emlwb-czsjfkqwvfz-grkx SARS-CoV-2 RNA Source PREPARATION SUPERVISOR Swab [facility] Nasopharyngeal swab (specimen) Other / Unknown 09/04/2020 8:50 AM EST 09/04/2020 9:51 PM EST Narrative Resulting Agency Comment Spec In Lab Niraj Teague DO MOLECULAR ORDERABLES [facility] [place] [address] documented in this encounter Visit Diagnoses Not on filedocumented in this encounter Care Teams Plastic Parts Fabricator Trimmer Relationship Specialty Start Date End Date Patricia Garza APRN [address] [place] [address] PCP - General Internal Medicine 04/02/20 documented as of this encounter
--- OUTSIDE RECORDS SUMMARY | 2024-11-05 18:47 | XMS_ITS | Encounter Summary ---
Author Organization Formerly [facility] Address [facility] [place] [address] Care Team Providers Care Transportation Aid Name Role Phone Patricia Garza APRN Primary Care Provider [phone] Reason for Referral * Diagnostic Test (Routine) - Closed Specialty Diagnoses / Procedures Referred By Contac t Referred To Contact Radiology Diagnoses Hiatal hernia Procedures XR Fluoro Barium Swallow (Single Contrast) Hal Marroquin MD [facility] [address] [facility] Rad Xray [address] [place] [address] [place] [address] Referral ID Status Reason Start Date Expiration Date V isits Requested Visits Authorized [id number] Closed Specialty Service Requested 03/14/2021 09/14/2022 1 1 Reason for Visit * Diagnostic Test (Routine) - Closed Specialty Diagnoses / Procedures Referred By Contac t Referred To Contact Radiology Diagnoses Hiatal hernia Procedures XR Fluoro Barium Swallow (Single Contrast) Hal Marroquin MD [facility] [place] [address] [facility] Rad Xray [address] [place] [address] [place] [address] Referral ID Status Reason Start Date Expiration Date V isits Requested Visits Authorized [id number] Closed Specialty Service Requested 03/14/2021 09/14/2022 1 1 Encounter Details Date Type Department Care Team (Latest Contact Info) Description 04/26/2021 1:18 PM EDT - 04/26/2021 11:59 PM EDT Hospital Encounter XRay at [address] [place] [address] Hal Marroquin MD [facility] [place] [address] Hiatal hernia Discharge Disposition: Home Social History [...] who have questions please contact the health plant care worker that requested your imaging first. ? Electronically signed by: Law Galo MD, [facility] ([phone]), at 04/26/2021 4:36 PM Narrative 04/26/2021 4:36 PM EDT EXAMINATION: XR FLUORO BARIUM SWALLOW (SINGLE CONTRAST) CLINICAL HISTORY: Paraesophageal hernia, need location of GE [place]unction as well as the gastric outflow. TECHNIQUE: Single contrast esophagram was performed. Fluoroscopic spot films were obtained. Fluoro time: 2.30 minutes COMPARISON: CT chest abdomen pelvis 01/10/2020 FINDINGS: Lorry Weigher images demonstrate clear lungs. No effusion or [...] COMPARISON: CT chest abdomen pelvis 01/10/2020 FINDINGS: Lorry Weigher images demonstrate clear lungs. No effusion or [...] patients who have questions please contactthe health plant care worker that requested your imaging first. Electronically signed by: Law Galo MD, [facility]([phone]), at 04/26/2021 4:36 PM Hal Marroquin MD IMG FLUORO ORDERABLE S [...] mLs documented in this encounter Care Teams Transportation Aid Relationship Specialty Start Date End Date Patricia Garza APRN [address] [place] [address] PCP - General Internal Medicine 04/02/20 documented as of this encounter
--- OUTSIDE RECORDS SUMMARY | 2024-11-05 18:47 | XMS_ITS | Encounter Summary ---
Author Organization [facility] [place] [address] Care Team Providers Care Senior Graphic Designer Name Role Phone Unavailable Primary Care Provider Unavailabl e Encounter Details Date Type Department Care Team (Late st Contact Info) Description 01/10/2020 Ancillary Procedure Radiology Library at [facility] [place] [address] Hal Marroquin MD [facility] [place] [address] Social History Tobacco Use Types Packs/Day Years [...] Abdomen Pelvis (01/10/2020 12:00 AM EDT) Narrative [facility] - 04/12/2020 5:29 PM EDT This exam is auto-finalizing. It's purpose is for storage only. Hal Marroquin MD G FILM LIBRARY ORD ERABLES [facility] documented in this encounter Visit Diagnoses Not on filedocumented in this encounter
--- OUTSIDE RECORDS SUMMARY | 2024-11-05 18:47 | XMS_ITS | Encounter Summary ---
[place] [address] Care Team Providers Care Valve Liner Rubber Name Role Phone Patricia Garza APRN Primary Care Provider [phone] Encounter Details Date Type Department Care Team (Late st Contact Info) Description 07/13/2021 Telephone [place] [phone] Livier Chaney, RN Social History Tobacco Use [...] to return my call. Left message at [facility] Cardiology as well [phone]. documented in this encounter Plan of Treatment Not on file documented as of this encounter Visit Diagnoses Not on filedocumented in this encounter Care Teams Valve Liner Rubber Relationship Specialty Start Date End Date Patricia Garza APRN [address] [place] [address] PCP - General Internal Medicine 04/02/20 documented as of this encounter
--- OUTSIDE RECORDS SUMMARY | 2024-11-05 18:47 | XMS_ITS | Encounter Summary ---
[place] [address] Care Team Providers Care Smoking Pipe Mounter Name Role Phone Patricia Garza APRN Primary Care Provider [phone] Encounter Details Date Type Department Care Team (Late st Contact Info) Description 07/26/2021 Telephone [place] [phone] Luis E Meyer Social History Tobacco Use [...] the plan. Narcisa plans to come from [place] for the surgery, sh just needs direction. Spoke to Livier Thoracic RN who indicated that [facility] cardiology is scheduling a coronary CTA and echo that needs to be completed prior to surgery. This information was relayed to Ms. Palumbo, who will contact [facility] cardiology. Ms. Palumbo was advised to contact Thoracic Surgery with any additional questions or concerns. documented in this encounter Plan of Treatment Not on file documented as of this encounter Visit Diagnoses Not on filedocumented in this encounter Care Teams Smoking Pipe Mounter Relationship Specialty Start Date End Date Patricia Garza APRN [address] [place] [address] PCP - General Internal Medicine 04/02/20 documented as of this encounter
--- OUTSIDE RECORDS SUMMARY | 2024-11-05 18:47 | XMS_ITS | Encounter Summary ---
[place] [address] Care Team Providers Care Rn Case Mgr Name Role Phone Patricia Garza APRN Primary Care Provider [phone] Encounter Details Date Type Department Care Team (Latest Contact Info) Description 08/05/2021 9:55 AM EDT Laboratory Appointment Lab [address] [place] [address] Atrial fibrillation, unspecified type; Hiatal [...] 9:50 AM EDT) Neutrophil % 71.9 % [facility] Neutrophil Absolute 5.62 1.70 - 6.10 x10(3)/mc L [facility] Lymph % 15.7 % [facility] Lymphocytes Abs 1.2 0.9 - 3.2 x10(3)/mc L [facility] Monocyte % 8.0 % [facility] Monocyte Abs 0.6 0.3 - 0.9 x10(3)/mc L [facility] Eos % 2.8 % [facility] Eosinophils Abs 0.2 0.0 - 0.4 x10(3)/mc L [facility] Basophil % 1.0 % [facility] Baso Absolute 0.1 0.0 [...] Narrative Resulting Agency Comment Spec In Lab aHl Marroquin MD HEMATOLOGY ORDERABLE S [facility] [place] [address] * Hemogram (08/05/2021 9:50 AM EDT) [facility] White Blood Cell 7.8 4.0 - 9.5 x10(3)/[facility] Red Blood Cell 4.36 4.00 - 5.21 x10(6)/[facility] Hemoglobin 13.4 11.7 - 15.5 g/dL [facility] Hematocrit 40.3 35.7 - 45.8 % [facility] Mean Cell Volume 92.4 82.6 - 94.4 fL [facility] Mean Cell Hemoglobin 30.7 27.1 - 32.0 pg [facility] Mean Cell Hemoglobin Concentration 33.3 31.7 - 35.0 g/dL [facility] Platelet 295 145 - 357 x10(3)/[facility] RDW Standard Deviation 44.8 37.0 - 46.0 [facility] RDW coefficient of variation 13.2 11.5 - 14.1 % [facility] Mean Platelet Volume 9.5 7.6 - 12.9 [facility] NRBC% auto 0.0 % [facility] NRBC Absolute 0.000 0.000 - 0.000 x10(3)/[facility] Blood 08/05/2021 9:50 AM EDT 08/05/2021 9:58 AM EDT Narrative Resulting Agency Comment Spec In Lab Hal Marroquin MD HEMATOLOGY ORDERABLE S [facility] [place] [address] * (ABNORMAL) Comprehensive metabolic panel (non-fasting) (08/05/2021 9:50 AM EDT) Pathologist [facility] Glucose 96 65 - 199 mg/dL [facility] [...] Marroquin MD CHEMISTRY ORDERABLES [facility] [place] [address] documented in this encounter Visit Diagnoses Diagnosis Atrial fibrillation, unspecified type Hiatal hernia Diaphragmatic hernia without mention of obstruction or gangrene documented in this encounter Care Teams Rn Case Mgr Relationship Specialty Start Date End Date Patricia Garza, VACUUM WORKER [address] [place] [address] PCP - General Internal Medicine 04/02/20 documented as of this encounter
--- OUTSIDE RECORDS SUMMARY | 2024-11-05 18:47 | XMS_ITS | Encounter Summary ---
Author Organization [facility] Address [facility] [address] [place] [id number] Care Team Providers Care Broadcast Maintenance Technician Name Role Phone Patricia Garza APRN Primary Care Provider Reason for Referral * Consultation (Routine) - Closed Specialty Diagnoses / Procedures Referred By Contac t Referred To Contact Gastroenterology Diagnoses Hiatal hernia HREM Hiatal hernia Procedures HREM Patrice Cárdenas MD [facility] [address] [facility] [address] [place] [address] Referral ID Status Reason Start Date Expiration Date V isits Requested Visits Authorized [id number] Closed Consult, Test & Treat 04/15/2020 04/15/2021 1 1 * Rehabilitation (Routine) - Specialty Diagnoses / Procedures Referred By Contac t Referred To Contact Pulmonology Diagnoses Hiatal hernia Patrice Cárdenas MD [facility] [place] [address] [facility] [place] [address] Referral ID Status Reason Start Date Expiration Date V isits Requested Visits Authorized [id number] Evaluate and Treat 04/15/2020 04/15/2021 36 36 Reason for Visit * Reason Comments Hiatal Hernia * Consultation (Routine) - Closed Specialty Diagnoses / Procedures Referred By Contac t Referred To Contact Thoracic Surgery Diagnoses Hiatal hernia Large hiatal hernia, causing significant shortness of breath as well as acid reflux. ? of surgical candidate Smitha Concepcion MD [address] [place] [address] Patrice Cárdenas MD [facility] [place] [address] Referral ID Status Reason Start Date Expiration Date V isits Requested Visits Authorized [id number] Closed Consult, Test & Treat 04/02/2020 04/02/2021 1 1 Encounter Details Date Type Department Care Team (Late st Contact Info) Description 04/13/2020 2:00 PM EDT Office Visit [place] [address] Patrice Cárdenas MD [facility] [place] [address] Hiatal hernia Social History Tobacco Use Types [...] esophageal motility than conventional techniques. Esophageal manometry (eeu-XBP-mb-tree) is a test that shows whether your [...] Outpatient Consultation Note MD Traci Ortiz PA-C [place] [address] FAX: Date of Consultation: 04/13/2020 This consultation [...] surgical repair ~ 4 years ago in [place] but one week prior had a CVA [...] file Gets together: Not on file Attends mandaeism service: Not on file Active member of [...] questions Traci Montague PA-C 04/13/2020 Thoracic Surgery [facility] I have seen the patient and [...] gangrene documented in this encounter Care Teams Broadcast Maintenance Technician Relationship Specialty Start Date End Date Patricia Garza, INSOLE TACKER [address] [place] [address] PCP - General Internal Medicine 04/02/20 documented as of this encounter
--- OUTSIDE RECORDS SUMMARY | 2024-11-05 18:47 | XMS_ITS | Encounter Summary ---
[place] [address] Care Team Providers Care Geography Faculty Member Name Role Phone Patricia Garza APRN Primary Care Provider Encounter Details Date Type Department Care Team (Late st Contact Info) Description 06/27/2021 Telephone [place] [phone] Livier Chaney, RN Social History Tobacco Use [...] surgery rescheduled Patient was recently seen at [facility] for a Pre-op risk stratification stress test. Per her sons recollection, she was unable to tolerate the procedure and ended up getting dizzy, weak and vomiting. She declines to try this test again. Surgery postponed and we will discuss with cardiology. Referral to cardiology at [facility] for risk stratification. documented in this encounter [...] type documented in this encounter Care Teams Geography Faculty Member Relationship Specialty Start Date End Date Patricia Garza, OIL PUMPER [address] [place] [address] PCP - General Internal Medicine 04/02/20 documented as of this encounter
--- OUTSIDE RECORDS SUMMARY | 2024-11-05 18:47 | XMS_ITS | Encounter Summary ---
[place] [address] Care Team Providers Care Scuba Dive Training Instructor Name Role Phone Patricia Garza APRN Primary Care Provider [phone] Encounter Details Date Type Department Care Team (Late st Contact Info) Description 07/01/2021 Telephone [place] [phone] Kenzie Crawford Social History Tobacco Use Types [...] 07/01/2021 12:04 PM EDT Referral faxed to [facility] for Cardiology to see documented in this encounter Plan of Treatment Not on file documented as of this encounter Visit Diagnoses Not on filedocumented in this encounter Care Teams Scuba Dive Training Instructor Relationship Specialty Start Date End Date Patricia Garza APRN [address] [place] [address] PCP - General Internal Medicine 04/02/20 documented as of this encounter
--- OUTSIDE RECORDS SUMMARY | 2024-11-05 18:47 | XMS_ITS | Encounter Summary ---
Author Organization [facility] [place] [address] Care Team Providers Care Elementary School Science Teacher Name Role Phone Patricia Garza APRN Primary Care Provider [phone] Reason for Referral * Consultation (Urgent) - Closed Specialty Diagnoses / Procedures Referred By Contac t Referred To Contact Cardiology Diagnoses Pre-operative cardiovascular examination, high risk surgery Atrial fibrillation, unspecified type Cerebrovascular accident (CVA) due to stenosis of other cerebral artery Hiatal hernia Hypertension, unspecified type Hyperlipidemia, unspecified hyperlipidemia type Hal Marroquin MD [facility] [place] [address] Referral ID Status Reason Start Date Expiration Date V isits Requested Visits Authorized [id number] Closed Consult, Test & Treat 07/01/2021 12/28/2021 1 1 Encounter Details Date Type Department Care Team (Late st Contact Info) Description 07/01/2021 Orders [place] [address] Livier Chaney RN Pre-operative cardiovascular examination, high [...] type documented in this encounter Care Teams Elementary School Science Teacher Relationship Specialty Start Date End Date Patricia Garza, ASSOCIATE DIRECTOR OF SALES [address] [place] [address] PCP - General Internal Medicine 04/02/20 documented as of this encounter
--- OUTSIDE RECORDS SUMMARY | 2024-11-05 18:47 | XMS_ITS | Encounter Summary ---
[place] [address] Care Team Providers Care Behavioral Pediatrician Name Role Phone Patricia Garza APRN Primary Care Provider [phone] Reason for Visit * Auth/Cert Specialty Diagnoses / Procedures Referred By Amanuel centeno Referred To Contact Diagnoses Paraesophageal hernia Atrial fibrillation with rapid ventricular response Postoperative vomiting Referral ID Status Reason Start Date Expiration Date Visits Re quested Visits Authorized [id number] 1 1 Encounter Details Date Type Department Care Team (Late st Contact Info) Description 08/15/2021 7:36 AM EDT Anesthesia Event [place] [address] Radha Brito MD [facility] [place] [address] Jacinto Cardoso MD Anesthesia Record Procedure Summary Procedure Name Responsible [...] Evangelina Vogel RN 08/15/21 1710 by Rolan Funez RN (RETIRED) Peripheral IV Line - Single Lumen 08/15/21; 0730; median cubital vein (antecubital fossa), left; sjon-cvc-khaqak catheter system; 22 gauge, 1 in length; [...] dorsal arch vein (top of hand), right; ebct-wvu-yczymf catheter system; Anatomical Landmarks; 18 gauge; no longer indicated, catheter/device intact, removed per policy/procedure; 08/16/21; 1604 08/15/21 0803 by Jacinto Cardoso MD 08/16/21 1604 by Stephania Gee LPN Incision 08/15/21; 0820; anterior; abdomen; laparoscopic punctures (specify); 10/25/21; 1502 (not present. Old LDA) 08/15/21 0820 by Evangelina Vogel RN 10/25/21 1502 by Prabha Stephens, PAULETTE documented in this encounter Social History Tobacco [...] Procedure Summary Date: 08/15/21 Room / Location: [facility] MA[facility] OR Anesthesia Start: 735 Anesthesia Stop: Procedures: ROBOT XI LAPAROSCOPIC PARAESOPHAGEAL HERNIA REPAIR W/FUNDOPLASTY,W/O MESH (WRVU 26.6) (N/A Abdomen) MODIFIER ROBOT,DAVINCI XI (N/A ) EGD, UPPER GI ENDOSCOPY (N/A Esophagus) Diagnosis: Hiatal hernia (Giant paraesophageal hernia) Surgeons: Hal Marroquin MD Responsible Provider: Radha Brito MD Anesthesia Type: general ASA Status: 3 All Anesthesia Providers: Anesthesiologist: Radha Brito MD Gravity Prospecting Operator: Jacinto Cardoso MD Vitals Value Taken Time BP 159/74 08/15/21 1130 Temp Pulse 77 08/15/21 1135 Resp 34 08/15/21 1135 SpO2 99 % 08/15/21 1135 Pain Level Vitals shown include unvalidated device data. Patient Location: PACU/[facility] Level of Consciousness: Conscious but Sleepy [...] Physical Exam: Preprocedure Vitals Current as of 08/14/211823 No BP, pulse, respiration, SpO2, or temperature [...] 5% 50 mL infusion 900 mg, Intravenous, SALES DEVELOPMENT EXECUTIVE TO O.R., 1 dose, On Sun08/15/21 at [...] mg documented in this encounter Care Teams Behavioral Pediatrician Relationship Specialty Start Date End Date Patricia Garza APRN [address] [place] [address] PCP - General Internal Medicine 04/02/20 documented as of this encounter
--- OUTSIDE RECORDS SUMMARY | 2024-11-05 18:47 | XMS_ITS | Encounter Summary ---
Author Organization [facility] [place] [address] Care Team Providers Care Warp Dresser Name Role Phone Patricia Garza APRN Primary Care Provider Encounter Details Date Type Department Care Team (Late st Contact Info) Description 06/21/2021 Ancillary Procedure Radiology Library at [facility] [place] [address] Hal Marroquin MD [facility] [place] [address] Social History Tobacco Use Types Packs/Day Years [...] nuclear medicine (06/21/2021 12:00 AM EDT) Narrative [facility] - 06/23/2021 1:04 PM EDT This exam is auto-finalizing. It's purpose is for storage only. Hal Marroquin MD [facility] FILM LIBRARY ORD ERABLES DH [place], [place] documented in this encounter Visit Diagnoses Not on filedocumented in this encounter Care Teams Warp Dresser Relationship Specialty Start Date End Date Patricia Garza APRN [address] [place] [address] PCP - General Internal Medicine 04/02/20 documented as of this encounter
--- OUTSIDE RECORDS SUMMARY | 2024-11-05 18:47 | XMS_ITS | Encounter Summary ---
[place] [address] Care Team Providers Care Welding Machine Operator Submerged Arc Name Role Phone Patricia Garza APRN Primary Care Provider Encounter Details Date Type Department Care Team (Late st Contact Info) Description 08/11/2021 Telephone [place] [phone] Renata Epps MSW Social History Tobacco Use Types Packs/Day Years [...] MSW - 08/11/2021 1:31 PM EDT Continuing Organic Preparation Technician-Social Work Note [facility]/Office of Care Management Referral/Contact: Referral received from DEE DEE Crespo, advising that pt is scheduled for surgery with Dr. Marroquin on 08/15. Pt's daughter is reportedly going to fly in from [place] but pt is concerned about the possibility [...] Luis E Meyer. Intervention(s): Care Coordination Plan: [facility]- remains available for psychosocial assessment, support, and resource coordination as needed. OMAR Serna Pager: [phone] documented in this encounter Plan of Treatment Not on file documented as of this encounter Visit Diagnoses Not on filedocumented in this encounter Care Teams Welding Machine Operator Submerged Arc Relationship Specialty Start Date End Date Patricia Garza APRN [address] [place] [address] PCP - General Internal Medicine 04/02/20 documented as of this encounter
[2024-11-06 23:09] LABS: Campylobacter PCR Negative (Negative); Salmonella PCR Negative (Negative); Shiga Toxin PCR Negative (Negative); Shigella/Enteroinvasive Ecoli Negative (Negative)
== END 2024-11-05 18:28 | disposition home or self-care (01) ==
LOC: NCHCN 18:27
PROVIDERS: PCP Nurse Practitioner; Visit Provider Nurse Practitioner Family
DX: R19.7 Diarrhea, unspecified (principal)
CPT/HCPCS: 87493; 87505; 82272; 83630; 87177

== ENCOUNTER 2025-02-13 10:12 | Emergency (ER) | payer MEDICARE, MEDICAID, SELFPAY ==
--- NOTE | 2025-02-13 10:00 | RT.EKG_ITS ---
APPROVED REPORT Exam: Resting ECG Reason for Exam: dizziness Patient Location: E HR:62 bpm ECG Measurements Heart Rate 62 AXIS OK [id number] P [id number] QRSd 87 QRS -4 QT 460 T 22 QTc 469 Conclusion Atrial fibrillation...? atrial activity
[2025-02-13 10:24] VITALS: BP 131/74; PULSE 64; RESP 18; TEMP 36.6; O2SAT 97
[2025-02-13] MEDS: Meclizine 25 MG TAB PO (11:47)
[2025-02-13 13:11] VITALS: BP 132/63; PULSE 72; RESP 16; O2SAT 98
[2025-02-13 13:40] LABS: Bilirubin Negative (Negative); Blood Negative (Negative); Clarity Clear (Clear); Glucose Negative (Negative); Ketones Negative (Negative); Leukocyte Esterase Trace (Negative); Nitrite Negative (Negative); Urobilinogen 0.2 mg/dL (Up to 0.2); pH 5.5 (5-8)
[2025-02-13 13:47] LABS: Bacteria Many HPF (Negative); C & S Indicated? No; Casts Negative LPF (Negative); Crystals Negative HPF (Negative); Epithelial Cells Few HPF (Negative); Mucus Trace (Negative); RBC 0-2 HPF (0-2)
--- NOTE | 2025-02-13 13:57 | W.ED.GENAD ---
Discharge Plan Disposition Patient Disposition: Home Discharge Details Clinical Impression: Vertigo, At high risk for falls Primary Care Provider: Patricia Garza ED Provider: Ilan Stahl Home Meds and New Rx's Prescriptions: New meclizine 25 mg tablet 25 mg PO BID PRN (Reason: dizziness) Qty: 30 0RF Continued amlodipine 10 mg tablet 10 mg PO DAILY Qty: 90 3RF losartan 25 mg tablet 25 mg PO DAILY Qty: 60 0RF calcium-vitamin D3-vitamin K 1 EACH tablet,chewable 1 ea PO DAILY acetaminophen 500 mg tablet 1,000 mg PO BID bupropion HCl 150 mg tablet extended release 24 hr 150 mg PO QAM Qty: 30 12RF metoprolol succinate 50 mg tablet extended release 24 hr See Rx Instructions .ROUTE .COMPLEX Qty: 90 3RF Dose Instruction: TAKE 1 TABLET BY MOUTH DAILY Rx Instructions: TAKE 1 TABLET BY MOUTH DAILY omeprazole 40 mg capsule,delayed release(DR/EC) See Rx Instructions .ROUTE .COMPLEX Qty: 180 3RF Dose Instruction: TAKE 1 CAPSULE BY MOUTH TWICE A DAY Rx Instructions: TAKE 1 CAPSULE BY MOUTH TWICE A DAY fenofibrate nanocrystallized 48 mg tablet 48 mg PO DAILY Qty: 90 3RF olanzapine 2.5 mg tablet 2.5 mg PO DAILY Qty: 30 3RF fluticasone furoate-vilanterol [Breo Ellipta] 200-25 mcg/dose Blister With Device 1 inh INHALATION DAILY diclofenac sodium [Voltaren Arthritis Pain] 1 % gel 2 g topical QID Qty: 100 0RF Rx Instructions: apply to single elbow, wrist or hand; for hand includes palm/fingers/back of hand Held apixaban 2.5 mg tablet 2.5 mg PO BID Qty: 180 3RF Hold Instructions: Resume on 02/27/25. hold until cleared to restart by your pcp Discharge Instructions Instructions: Vertigo ED, Preventing Falls ED Additional Instructions: It was recommended you be hospitalized given concern for fall risk and unsteady gait. You have declined hospitalization. I understand you are interested in pursuing short-term nursing rehab placement. Care management will be working on referral to nursing facility. Please follow-up with your primary care physician. Dr. Alvarado recommends being seen next week for reassessment. Hold your apixaban until primary care are able to reassess. Return to the emergency department at anytime for further workup and diagnostics as discussed. Please return immediately for any worsening or new concerning symptoms. Referrals: Patricia Garza NP [Primary Care Provider] - [facility] General Date/Time Provider Initiated Documentation: 02/13/25 11:23. Limitations to Documentation: no limitations. Information obtained by: patient. HPI Narrative: HISTORY OF PRESENT ILLNESS The patient is an 84-year-old female with history of atrial fibrillation on apixaban, CVA, and a history of vertigo, who fell yesterday. She fell due to a vertiginous episode when rising from bed at night. She reported minimal pain and did not seek immediate hospital care. This morning, she continues to experience dizziness, especially when turning head to the right side or ambulating without lowering her head. She has been managing her vertigo with evqh-xqa-gjpuety medications provided by her brother but has not taken any today. Her vertiginous symptoms have been present for approximately one month and are consistently associated with positional changes. She reports no headaches. She reports urinary frequency without burning sensation, ongoing for several weeks. She has a known intolerance to SULFA DRUGS and PENICILLIN, which induce vomiting and weakness. She has a past medical history of multiple strokes, one resulting in left-sided weakness that has since resolved. She is compliant with her anticoagulant therapy. Related Data Home Medications ?Medication ?Instructions ?Recorded ?Confirmed calcium 500 mg-vitamin D3 1,000 1 ea PO DAILY 11/16/16 02/13/25 unit-vitamin K 40 mcg chewable tablet fluticasone furoate 200 1 inh inhalation DAILY 12/29/22 02/13/25 mcg-vilanterol 25 mcg/dose inhalation powder (Breo Ellipta) diclofenac sodium 1 % topical gel 2 g topical QID #100 grams 10/01/24 02/13/25 (Voltaren Arthritis Pain) acetaminophen 500 mg tablet 1,000 mg PO BID pain 11/03/24 02/13/25 bupropion HCl 150 mg 24 hr tablet, 150 mg PO QAM #30 tabs 11/03/24 02/13/25 extended release amlodipine 10 mg tablet 10 mg PO DAILY #90 tabs 11/18/24 02/13/25 apixaban 2.5 mg tablet 2.5 mg PO BID #180 tabs 11/18/24 02/13/25 losartan 25 mg tablet 25 mg PO DAILY #60 tabs 01/20/25 02/13/25 fenofibrate nanocrystallized 48 mg 48 mg PO DAILY #90 tabs 02/10/25 02/13/25 tablet metoprolol succinate 50 mg See Rx Instructions .Route 02/10/25 02/13/25 tablet,extended release 24 hr .COMPLEX #90 tabs olanzapine 2.5 mg tablet 2.5 mg PO DAILY #30 tabs 02/10/25 02/13/25 omeprazole 40 mg capsule,delayed See Rx Instructions .Route 02/10/25 02/13/25 release .COMPLEX #180 caps meclizine 25 mg tablet 25 mg PO BID PRN dizziness #30 tabs 02/13/25 Previous Rx's ?Medication ?Instructions ?Recorded diclofenac sodium 1 % topical gel 2 g topical QID #100 grams 10/01/24 (Voltaren Arthritis Pain) bupropion HCl 150 mg 24 hr tablet, 150 mg PO QAM #30 tabs 11/03/24 extended release amlodipine 10 mg tablet 10 mg PO DAILY #90 tabs 11/18/24 apixaban 2.5 mg tablet 2.5 mg PO BID #180 tabs 11/18/24 losartan 25 mg tablet 25 mg PO DAILY #60 tabs 01/20/25 fenofibrate nanocrystallized 48 mg 48 mg PO DAILY #90 tabs 02/10/25 tablet metoprolol succinate 50 mg See Rx Instructions .Route 02/10/25 tablet,extended release 24 hr .COMPLEX #90 tabs olanzapine 2.5 mg tablet 2.5 mg PO DAILY #30 tabs 02/10/25 omeprazole 40 mg capsule,delayed See Rx Instructions .Route 02/10/25 release .COMPLEX #180 caps meclizine 25 mg tablet 25 mg PO BID PRN dizziness #30 tabs 02/13/25 Allergies Allergy/AdvReac Type Severity Reaction Status Date / Time Penicillins Allergy Unknown Swelling/Ed Verified 02/13/25 10:33 bobo/Itching nitrofurantoin AdvReac Severe Diarrhea Verified 02/13/25 10:33 ciprofloxacin (From Cipro) AdvReac Intermediate Dizziness/L Verified 02/13/25 10:33 ighthead Sulfa (Sulfonamide AdvReac Unknown GI symptoms Verified 02/13/25 10:33 Antibiotics) General Stated Complaint: Dizzy/Sync HAILEE: 3 Review of Systems All systems reviewed & are unremarkable except as noted in HPI and below Constitutional Constitutional: Denies fever(s) Cardiovascular Cardiovascular: Denies chest pain Exam Narrative Exam Narrative: PHYSICAL EXAM General Appearance: Normal. Vital signs: Within normal limits. HEENT: Left ear: excessive wax. Right ear: normal, tympanic membrane intact. Respiratory: Lungs: clear. Cardiovascular: Heart: regular rate and rhythm, no murmurs. Gastrointestinal: Abdomen: soft, normal bowel sounds. Skin: Warm and dry, no rash. Neurological: difficulty with rapid alternating movements. Full strength all extremities. Sensation intact all extremities. Cranial nerves intact. Course Vital Signs Vital signs: Vital Signs Temperature 36.6 C 02/13/25 10:24 Pulse 64 02/13/25 10:24 Respiratory Rate 18 02/13/25 10:24 Blood Pressure 131/74 02/13/25 10:24 Pulse Oximetry 97 02/13/25 10:24 Temperature 36.6 C 02/13/25 10:24 Temperature Source Oral 02/13/25 10:24 Pulse 72 02/13/25 13:11 Respiratory Rate 16 02/13/25 13:11 Respiratory Effort Normal 02/13/25 11:55 Respiratory Depth Normal 02/13/25 11:55 Respiratory Pattern Normal 02/13/25 11:55 Blood Pressure 132/63 02/13/25 13:11 Blood Pressure Mean 86 02/13/25 13:11 Pulse Oximetry 98 02/13/25 13:11 Oxygen Delivery Method Room Air 02/13/25 10:24 Oxygen Flow Rate 0 02/13/25 10:24 Pain Level 5 02/13/25 10:24 Lab/Test Results Lab/Test Results: Laboratory Tests Range/Units 02/13/25 13:31 Urine Color (Yellow) Yellow Urine Clarity (Clear) Clear Urine pH (5-8) 5.5 Ur Specific [place] (1.005-1.025) 1.010 Urine Protein (Neg-Trace) mg/dL Trace Urine Ketones (Negative) mg/dL Negative Urine Blood (Negative) Negative Urine Nitrite (Negative) Negative Urine Bilirubin (Negative) Negative Urine Urobilinogen (Up to 0.2) mg/dL 0.2 Ur Leukocyte Esterase (Negative) Trace H Urine RBC (0-2) HPF 0-2 Urine WBC (0-5) HPF 3-5 Ur Epithelial Cells (Negative) HPF Few Urine Crystals (Negative) HPF Negative Urine Bacteria (Negative) HPF Many Urine Casts (Negative) LPF Negative Urine Mucus (Negative) Trace Ur Culture Indicated? No Urine Glucose (Negative) mg/dL Negative Medical Decision Making ASSESSMENT AND PLAN Initial Assessment: 84-year-old female with multiple medical problems including atrial fibrillation on apixaban, history of CVA, history of vertigo, and recent fall due to dizziness. Differential Diagnosis: - Inner ear issues: Positional dizziness, especially when rolling to her right side or getting up without lowering her head. Managed with utyj-lzi-nzyjmjn medications. Administer Antivert (meclizine). - Potential stroke: Declined MRI. Patient provided informed refusal. She declines additional diagnostic testing including labs and MRI. ED Course: - Administered Antivert (meclizine). - Reassessed and feeling much better, no dizziness. - Urinalysis reviewed, no signs of urinary tract infection. - Notified by care management that family is interested in pursuing rehab facility placement, PT consult recommended. Patient agreeable. - PT consult performed and patient felt to benefit from assist and is fall risk. Assessment discussed with patient and recommended admission. Patient provided informed refusal and would like to leave against advice. She is interested in pursuing senior care facility. Care management to work on referral. - Patient is on apixaban but is a high fall risk at this time. I think the risk of significant bleeding from fall is greater than stroke risk. I called and spoke with Dr. Vargas, PCP, discussed ED presentation course, he agrees with fall risk and recommends holding apixaban until patient can be reassessed in clinic next week. Final Assessment: Vertigo likely due to inner ear issues, improved with Antivert. No signs of urinary tract infection. Patient declined MRI for potential stroke evaluation. Clinical Impression: - Vertigo - Urinary frequency - Atrial fibrillation Disposition: - Discharge: Patient requesting discharge. - Follow-Up: Outpatient follow-up with primary care physician. Patient Education: Discharge instructions reviewed. Encouraged to return at any time for further workup and treatment. MDM Components Evaluation: - Number of Differential Diagnoses or Management Options: Inner ear issues, potential stroke. - Amount and Complexity of Data Reviewed: Urinalysis. - Risk of Complication and Morbidity or Mortality: Potential stroke risk, managed with informed refusal of MRI. This document was written with the assistance of WESLEY Hilario. The patient consented to its use. Quality:SDOH Health Related Social Needs: No Data to Display PFSH All Active Problems (Updated 02/13/25 @ 14:42 by Ilan Stahl MD) At high risk for falls (Acute) Vertigo (Acute) Irritability (Acute) Acute on chronic renal insufficiency (Acute) Pes anserinus bursitis of left knee (Acute) DEPO MEDROL 06/04/23 Depression (Chronic) Degenerative joint disease of right hip (Acute) POCUS INJECTION 03/13/24 Painful total knee replacement, right (Acute) s/p revision of patellar component Dr. Dixon DOS: 09/06/22 Regurgitation and rechewing (Acute ~10/2021) 12/13/21 [facility] [place] GI, gastric emptying scan ordered and consult with Floating Operator Lung nodule < 6cm on CT (Acute) LEWIS (dyspnea on exertion) (Acute) Paraesophageal hernia (Acute) Urinary incontinence (Acute) Rib pain on left side (Acute) Left shoulder pain (Acute) Iliotibial band syndrome of right side (Acute) Anxiety and depression (Chronic 09/05/17) Anticoagulant long-term use (Acute) Hiatal hernia (Chronic) Adjustment disorder, unspecified (Acute 11/16/16) Gastroesophageal reflux disease (Chronic 04/28/16) Due to Hiatial Hernia Osteoporosis (Chronic 02/13/17) left hip T SCORE -3.3 Prolia inj q6m, first 01/2017, 02/25/21 Total T-Score: -2.5 Medical History (Updated 02/13/25 @ 14:42 by Ilan Stahl MD) CVA (cerebral vascular accident) Falls frequently Atrial fibrillation (01/22/18) Essential hypertension (04/28/16) History of CVA (cerebrovascular accident) (10/24/15) Dry Stroke, 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) Hyperlipidemia (04/28/16) [place] angioma Seborrheic keratoses Actinic keratosis Keratoacanthoma (~05/2022) [facility]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 Dixon Status post total right knee replacement (11/20/11) Status post total left knee replacement H/O endoscopy (10/24/21) S/P repair of paraesophageal hernia (08/15/21) [facility] [place] Thoracic Open Carpal Tunnel release right Cholecystectomy (01/10/18) Extraction of cataract Family History Mother Stroke Father Neoplasm Grandmother , CVA No problems noted. Brother Diabetes Brother Diabetes Brother Diabetes Brother Diabetes Brother Diabetes Brother Diabetes Social History Smoking/Tobacco Use Status: Former Tobacco Use Quit Date: 10/29/85 Tobacco: How many years used: 25 Smoking risk assessment performed?: Yes Alcohol Intake: never Drug use: Never Substance use type: does not use Household members: none Housing: apartment Number of Children: 4 Current gender identity: female What type of physical activity do you participate in: none Do you feel safe at home: Yes Do you feel safe in your relationship?: Yes
--- NOTE | 2025-02-13 14:23 | PT.INIE ---
PT Notes Visit Reasons: Fell, Dizziness Physical Therapy Inpatient Initial Evaluation Date: 02/14/2025 Referring Doctor: Ilan Stahl MD PT Orders: PT CONSULT: Safety Consult for D/C Precautions: Fall. Standard. Activity as tolerated. DNR/DNI. Patient Profile/Admitting Diagnosis: Linda is an 84-year-old female with history of CVA with right frontal lobe infarct (back in September 2015), repeated falls, traumatic rupture of R quads tendon, and painful right total knee replacement, status post patellar component revision on 09/06/2022. She presented to the ED today due to generalized weakness and failure to thrive at home. Previous OR notes indicated patient as having been unable to care for self. She does not have a caregiver and has been having difficulty ambulating at home. PMHX: All Active Problems (Updated 02/13/25 @ 14:42 by Ilan Stahl MD) At high risk for falls (Acute) Vertigo (Acute) Irritability (Acute) Acute on chronic renal insufficiency (Acute) Pes anserinus bursitis of left knee (Acute) DEPO MEDROL 06/04/23Depression (Chronic) Degenerative joint disease of right hip (Acute) POCUS INJECTION 03/13/24Painful total knee replacement, right (Acute) s/p revision of patellar component Dr. Dixon DOS: 09/06/22 Regurgitation and rechewing (Acute ~10/2021) 12/13/21 [facility] [place] GI, gastric emptying scan ordered and consult with Silviculturist Lung nodule < 6cm on CT (Acute) LEWIS (dyspnea on exertion) (Acute) Paraesophageal hernia (Acute) Urinary incontinence (Acute) Rib pain on left side (Acute) Left shoulder pain (Acute) Iliotibial band syndrome of right side (Acute) Anxiety and depression (Chronic 09/05/17) Anticoagulant long-term use (Acute) Hiatal hernia (Chronic) Adjustment disorder, unspecified (Acute 11/16/16) Gastroesophageal reflux disease (Chronic 04/28/16) Due to Hiatial Hernia Osteoporosis (Chronic 02/13/17) left hip T SCORE -3.3 Prolia inj q6m, first 01/2017, 02/25/21 Total T-Score: -2.5 Medical History (Updated 02/13/25 @ 14:42 by Ilan Stahl MD) CVA (cerebral vascular accident) Falls frequently Atrial fibrillation (01/22/18) Essential hypertension (04/28/16) History of CVA (cerebrovascular accident) (10/24/15) Dry Stroke, 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) Hyperlipidemia (04/28/16) [place] angioma Seborrheic keratoses Actinic keratosis Keratoacanthoma (~05/2022) Derm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 Dixon Status post total right knee replacement (11/20/11) Status post total left knee replacement H/O endoscopy (10/24/21) S/P repair of paraesophageal hernia (08/15/21) [facility] Thoracic Open Carpal Tunnel release right Cholecystectomy (01/10/18) Extraction of cataract Social History/Home Situation: Lives alone on the second floor of a handicap-accessible apartment floor building in [place], [place]. Independent with 4WW indoors, requires supervision of another outdoors. Has family close by who are supportive. Able to perform dressing ad bathing on her own. Equipment Owned/DME: 4WW, FWW Subjective: Has only had 2 pieces of toast since 5 AM this morning and is very hungry. ED stenographer secretary said that lunch has been ordered and is coming. Patient said that she has fallen more than 5 times last year. She adds that she no longer has caregivers helping out at home and she has been having increasing difficulty to manage alone at home. She verbalized that she does not feel safe going back home alone right now. Did not report any dizziness, denied headache, and chest pain throughout session. Objective: General Observation: Resting on chair in room 1 at ED. Mental Status: Alert and oriented as to person only and place. Able to follow instructions/requests. Pain: None reported ROM: Right Upper Extremity: Shoulder Flexion allows up to 80 degrees with pain at end of range. Shoulder abduction allows up to 60 degrees with pain at end of range. Elbow flexion WFL. Wrist flexion WFL. Functional opening and closing of hand WFL. Left Upper Extremity: Shoulder Flexion allows up to 90 degrees with pain at end of range. Shoulder abduction allows up to 70 degrees with pain at end of range. Elbow flexion WFL. Wrist flexion WFL. Functional opening and closing of hand WFL. Right Lower Extremity: Hip flexion allows up to about 100 degrees. Hip abduction WFL. Knee flexion 20 degrees to 90 degrees. Knee extension -20 degrees. Ankle dorsiflexion to neutral only. Ankle plantarflexion WFL. Left Lower Extremity: Hip flexion allows up to about 100 degrees. Hip abduction WFL. Knee flexion 10 degrees to 90 degrees. Knee extension -20 degrees. Ankle dorsiflexion to neutral only. Ankle plantarflexion WFL. Strength: Right Upper Extremity: Shoulder flexors 3-/5. Shoulder abductors 3-/5. Elbow flexors 4-/5. Elbow extensors 4-/5. Gripweak but functional. Left Upper Extremity: Shoulder flexors 3-/5. Shoulder abductors 3-/5. Elbow flexors 4-/5. Elbow extensors 4-/5. Gripweak but functional. Right Lower Extremity: Hip flexors 3-/5. Hip abductors 3-/5. Knee flexors3-5/5. Knee extensors 3-/5. Ankle dorsiflexors 3-/5. Ankle plantarflexors 4-/5. Left Lower Extremity:Hip flexors 3-/5. Hip abductors 3-/5. Knee flexors3-5/5. Knee extensors 3-/5. Ankle dorsiflexors 3-/5. Ankle plantarflexors 4-/5. Sensation: Intact as to pain and light pressure in B LE Bed Mobility/Transfers: Minimal cueing provided for use of B hands as needed for support, movement sequence, AD management, and posture to reduce fall risk and minimize pain report Sit to stand minimal assist with FWW Stand to sit minimal assist with FWW Bed to chair minimal assist with FWW 4-stage Balance Test; Feet together unable Semi-tandem unable Full tandem deferred One-legged stance deferred Gait: Facilitated safe and correct performance of short level surface ambulation of 50 feet with minimal assist and wheelchair follow of Nurse Peng. No LOB. Minimal shortness of breath. Step height and length asymmetrical. Mild shortness of breath noted. Very fatigued adn weak after short walk. Did not feel safe without physical assistance of PT. Balance: Static Sitting: Good Dynamic Sitting: Good Static Standing: Fair Dynamic Standing: Poor Special Tests: Mobility Limitations Standardized Measure [facility] AM-PAC 6 clicks Basic Mobility Inpatient Short Form: Raw Score: 18 CMS Score: 47% deficit Informed Consent/Education: Patient instructed in purpose of PT consult and plan of care. Agreeable to proceed with established PT POC to achieve personal goals. Assessment: Failed static standing balance test, deferred dynamic balance test due to safety issues. patient at high risk for falls and has decreased ability to thrive at home. She will beenfit from long-term care placement to meet the level of care needs. Patient presents with clinical signs and symptoms consistent with current/admitting diagnoses that have resulted to mobility limitations, gait instability, generalized weakness, and impairment of motor control as demonstrated by the following impairment level findings: 1. Decreased strength to B UE/LE with L UE/LE R knee more affected 2. Impaired standing balance 3. Limitation of joint range of motion in R knee (chronic) Impairments are contributing to the following functional limitations: 1. Inability to safely ambulate without assistive device 2. Increase completion time for mobility ADL performance 3. [facility] fall risk 4. High re-hospitalization rate Patient is assessed as a 99991 moderate complexity based on the following: History: 84-year-old female with impairment level findings, functional limitations, and past medical history as indicated above Examination: Demonstrable impairment in strength, balance, and mobility level with underlying impairments and functional limitations as documented above Presentation: Evolving Decision Makin moderate complexity Goals: Goals X1 week at SNF 1. Supine-Sit independent 2. Sit-Supine independent 3. Sit-Stand independent 4. Stand-Sit independent 5. Bed-Chair independent 6. Chair-Bed independent 7. Independent gait on level surface with use of 4WW for at least 150 feet without report of pain nor dyspnea 8. Independent stair negotiation while holding onto bilateral rails for at least 10 steps without report of pain nor dyspnea 9. Independent with home exercise program 10. Good static and dynamic standing balance/tolerance Plan of Care/Treatment Plan: Patient will highly benefit from skilled physical therapy services in a subacute facility to wrok on functional mobility training, bed mobility/transfer training, gait and balance training, therapeutic exercises, therapeutic activity, caregiver/staff/family education and training 1x/day, 7 days/week x 1 week. Plan of care has been reviewed with the ANALYTICAL DATA SCIENTIST providing the service under Physical Therapy direction. Initiate Physical Therapy intervention for strengthening, bed mobility, transfers, gait, stairs, balance training, use of assistive device. DISCHARGE RECOMMENDATIONS: [] Home with no services [] [] Home with services [specify] [] Home with outpatient PT [] [] SNF for continued rehabilitation [] [] Family Mediator Care [] [X] SNF versus LTC based on ability to participate and progress TREATMENT CODE/TIME: 93521 x 1 unit, 62345 x 11 unit Thank you for the opportunity to participate in the care of this patient. Kaylynn Hunter PT, DPT, CLT [facility] [place], [place]
[2025-02-13 15:05] VITALS: BP 131/61; PULSE 70; RESP 17; O2SAT 100
== END 2025-02-13 15:02 | disposition home or self-care (01) ==
PROVIDERS: Emergency Provider Student in an Organized Health Care Education/Training Program; PCP Nurse Practitioner
DX: R42 Dizziness and giddiness (principal); I48.91 Unspecified atrial fibrillation; E78.5 Hyperlipidemia, unspecified; Z79.01 Long term (current) use of anticoagulants; Z86.73 Personal history of transient ischemic attack (TIA), and cerebral infarction without residual deficits; Z87.891 Personal history of nicotine dependence
CPT/HCPCS: 93005; 99284; 81003; 81015; 93010

== ENCOUNTER 2025-02-24 10:10 | Outpatient (REF) | payer MEDICARE, MEDICAID, SELFPAY ==
[2025-02-24 16:51] LABS: Anion Gap 7.2 mmol/L (3-11); BUN 27 mg/dL (7-18); CO2 29.8 mmol/L (21.0-32.0); CREATININE 1.3 mg/dL (0.55-1.02); Calcium 9.2 mg/dL (8.5-10.1); Chloride 106 mmol/L (98-107); Estimated GFR 40.05 (mL/min/1.73m2); Glucose 97 mg/dL (74-106); Sodium 143 mmol/L (136-145)
== END 2025-02-24 10:11 | disposition home or self-care (01) ==
LOC: LBN 10:10
PROVIDERS: PCP Nurse Practitioner; Visit Provider Nurse Practitioner Family
DX: I10 Essential (primary) hypertension (principal)
CPT/HCPCS: 80048

== ENCOUNTER 2025-03-17 11:36 | Outpatient (REF) | payer MEDICARE, MEDICAID, SELFPAY | END 2025-03-17 11:37 | disposition home or self-care (01) | LOC: LBN 11:36 | PROVIDERS: PCP Nurse Practitioner; Visit Provider Nurse Practitioner Family | DX: R35.0 Frequency of micturition (principal); R82.998 Other abnormal findings in urine | CPT/HCPCS: 87077; 87086; 87186 ==

== ENCOUNTER 2025-05-17 14:32 | Outpatient (REF) | payer MEDICARE, MEDICAID, SELFPAY ==
[2025-05-17 18:47] LABS: Glucose Negative (Negative)
[2025-05-17 19:01] LABS: RBC 0-2 HPF (0-2)
== END 2025-05-17 14:33 | disposition home or self-care (01) ==
LOC: LBN 14:32
PROVIDERS: PCP Nurse Practitioner; Visit Provider Family Medicine
DX: R35.0 Frequency of micturition (principal)
CPT/HCPCS: 81003; 81015